=== PATIENT | female | born 1960 | race Caucasian/White ===

== ENCOUNTER 2023-01-05 11:09 | Outpatient (OUT) | payer OTHER, SELFPAY ==
--- NOTE | 2023-01-05 11:38 | XR_ITS ---
The [address] [address] Patient Name: ELISA GOMES MRN: [id number] date: 1960 Sex: F Assigned Patient Location: LAB Current Patient Location: LAB Accession/Order Number: [id number] Exam Date: 01/05/2023 11:50 Report Date: 01/05/2023 15:57 At the request of: EMI KENYON Procedure: XR foot LT min 3V EXAMINATION: XR ankle DECLAN min 3V, XR foot LT min 3V HISTORY: Osteoarthritis M19.90 COMPARISON: No relevant comparison available. FINDINGS: RIGHT FINDINGS: BONES: No significant arthropathy or acute abnormality. SOFT TISSUES: No visible soft tissue swelling. OTHER: Negative. LEFT FINDINGS: BONES: Mild degenerative enthesopathic spurring of the calcaneus. Small degenerative osteophyte along margin of first metatarsophalangeal joint. SOFT TISSUES: No visible soft tissue swelling. OTHER: Negative. IMPRESSION: RIGHT CONCLUSION: No acute abnormality or significant degenerative changes of the right ankle. LEFT CONCLUSION: Unremarkable left ankle. Minimal degenerative changes of the left foot. Electronically authenticated by: LATASHA KEANE Date: 01/05/2023 15:57
--- NOTE | 2023-01-05 11:38 | XR_ITS ---
The [address] [address] Patient Name: ELISA GOMES MRN: [id number] date: 1960 Sex: F Assigned Patient Location: LAB Current Patient Location: LAB Accession/Order Number: [id number] Exam Date: 01/05/2023 11:50 Report Date: 01/05/2023 15:59 At the request of: EMI KENYON Procedure: XR knee LT 3V PROCEDURE: XR knee LT 3V HISTORY: Knee osteoarthritis M17.9 ; chronic lateral knee pain COMPARISON: None. FINDINGS: BONES:Slight narrowing of the medial joint space and tiny periarticular degenerative osteophytes. SOFT TISSUES:Degenerative enthesopathic spurring at quadriceps tendon insertion into the patella. EFFUSION:None visible. OTHER: Negative. IMPRESSION: 1. No acute bone abnormality. 2. Minimal degenerative changes. Electronically authenticated by: LATASHA KEANE Date: 01/05/2023 15:59
--- NOTE | 2023-01-05 11:38 | XR_ITS ---
The [address] [address] Patient Name: ELISA GOMES MRN: [id number] date: 1960 Sex: F Assigned Patient Location: LAB Current Patient Location: LAB Accession/Order Number: [id number] Exam Date: 01/05/2023 11:50 Report Date: 01/05/2023 15:57 At the request of: EMI KENYON Procedure: XR ankle DECLAN min 3V EXAMINATION: XR ankle DECLAN min 3V, XR foot LT min 3V HISTORY: Osteoarthritis M19.90 COMPARISON: No relevant comparison available. FINDINGS: RIGHT FINDINGS: BONES: No significant arthropathy or acute abnormality. SOFT TISSUES: No visible soft tissue swelling. OTHER: Negative. LEFT FINDINGS: BONES: Mild degenerative enthesopathic spurring of the calcaneus. Small degenerative osteophyte along margin of first metatarsophalangeal joint. SOFT TISSUES: No visible soft tissue swelling. OTHER: Negative. IMPRESSION: RIGHT CONCLUSION: No acute abnormality or significant degenerative changes of the right ankle. LEFT CONCLUSION: Unremarkable left ankle. Minimal degenerative changes of the left foot. Electronically authenticated by: LATASHA KEANE Date: 01/05/2023 15:57
== END 2023-01-05 11:10 ==
LOC: LAB 11:17
PROVIDERS: PCP Family Medicine; Visit Provider Family Medicine
DX: M54.16 Radiculopathy, lumbar region (principal); M17.9 Osteoarthritis of knee, unspecified; M19.90 Unspecified osteoarthritis, unspecified site
CPT/HCPCS: 73562; 73610; 73630

== ENCOUNTER 2023-07-02 13:07 | Outpatient (OUT) | payer MEDICARE, SELFPAY ==
--- NOTE | 2023-07-02 13:14 | MM_ITS ---
Patient Name: ELISA GOMES MR#: [id number] : 1960 Exam Date: 07/02/2023 Ordering Doctor: DR Meir Friedman . RADIOLOGY REPORT PROCEDURE: MM TOMOSYNTHESIS SCREENING BI COMPARISON: MG MAMM SCREEN 3D DECLAN CAD, 06/27/2022. MG MAMM SCREEN 3D DECLAN CAD, 05/19/2021. MG MAMM SCREEN DECLAN W CAD, 05/17/2020. MG MAMM SCREEN DECLAN W CAD, 06/17/2016. INDICATIONS: Screening Calculator Name NCI Breast Cancer Risk Assessment Tool 5 Year Breast Cancer Risk 1.60% Lifetime Breast Cancer Risk 7.50% Personal Breast Cancer No Personal Ovarian Cancer No Treatments None Family Cancers None LOCATION: The [facility] [place] BREAST COMPOSITION: Almost entirely fatty. FINDINGS: DIAGNOSTIC CATEGORY 2--BENIGN FINDING: RIGHT BREAST: No significant suspicious finding. Scattered benign-appearing calcifications are present. No significant change has occurred. LEFT BREAST: No significant suspicious finding. Scattered benign-appearing calcifications are present. No significant change has occurred. RECOMMENDATIONS: ROUTINE MAMMOGRAM AND CLINICAL EVALUATION IN 12 MONTHS. PLEASE NOTE: A NORMAL MAMMOGRAM DOES NOT EXCLUDE THE POSSIBILITY OF BREAST CANCER. A CLINICALLY SUSPICIOUS PALPABLE LUMP SHOULD BE BIOPSIED. Dictated by: Franco Tompkins M.D. on 07/05/2023 at 09:16 Approved by: Franco Tompkins M.D. on 07/05/2023 at 09:21
== END 2023-07-02 13:08 | disposition home or self-care (01) ==
LOC: MAMMO 13:07
PROVIDERS: PCP Family Medicine; Visit Provider Family Medicine
DX: Z12.31 Encounter for screening mammogram for malignant neoplasm of breast (principal)
CPT/HCPCS: 77063; 77067

== ENCOUNTER 2023-07-10 11:49 | Outpatient (OUT) | payer MEDICARE, SELFPAY ==
--- NOTE | 2023-07-10 12:14 | XR_ITS ---
[address] [address] Patient Name: ELISA GOMES MRN: [id number] date: 1960 Sex: F Assigned Patient Location: [facility] Current Patient Location: [facility] Accession/Order Number: [id number] Exam Date: 07/10/2023 12:08 Report Date: 07/10/2023 12:49 At the request of: EMI KENYON Procedure: XR lumbar spine 2-3V EXAM: XR lumbar spine 2-3V HISTORY: Lumbar Radicular Pain M54.16 COMPARISON: None. TECHNIQUE: 3 views FINDINGS: Satisfactory alignment. Maintained vertebral body heights. Multilevel endplate degenerative changes of the lumbar spine. Maintained disc spaces. No acute fracture or significant subluxation. Scattered calcified atherosclerotic disease of aorta. XR/XR lumbar spine 2-3V IMPRESSION: Degenerative changes as above. Electronically authenticated by: AISHA GORDON Date: 07/10/2023 12:49
== END 2023-07-10 11:50 | disposition home or self-care (01) ==
LOC: RAD 11:53
PROVIDERS: PCP Family Medicine; Visit Provider Family Medicine
DX: M54.16 Radiculopathy, lumbar region (principal)
CPT/HCPCS: 72100

== ENCOUNTER 2023-09-05 12:36 | Outpatient (OUT) | payer MEDICARE, SELFPAY ==
--- OUTSIDE RECORDS SUMMARY | 2023-09-05 12:41 | XMS_ITS | CCD ---
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 Name Role Phone Emi Friedman Primary Care Physician Emi Friedman Referring Unavailable Rush, Sophy Attending Unavailable Rush, Sophy Admitting Unavailable HoEmi vásquez Referring Unavailable Rush, Sophy Attending Unavailable Rush, Sophy Admitting Unavailable Hoy Emi Referring Unavailable Rush, Sophy Attending Unavailable Rush, Sophy Admitting Unavailable HoLino vásquezlas Referring Unavailable Rush, Sophy Attending Unavailable Rush, Sophy Admitting Unavailable NONE, XXXX Referring Unavailable Rush, Sophy Attending Unavailable Rush, Sophy Admitting Unavailable NONE, XXXX Referring Unavailable MD Eddi Arana Admitting Unavailable Eddi Arana Attending Unavailable Emi Friedman Referring Unavailable MD Eddi Arana Admitting Unavailable Eddi Arana Attending Unavailable Eddi Arana Referring Unavailable Eddi Arana Attending Unavailable Derick Meza A Attending Unavailable Meza, Derick A Admitting Unavailable Meza, Derick A Admitting Unavailable MezaTyDerick A Attending Unavailable Meza, Derick A Admitting Unavailable Meza, Derick A Attending Unavailable Meza, Derick A Admitting Unavailable Meza, Derick A Attending Unavailable Rush, Sophy Attending Unavailable Rush, Sophy Admitting Unavailable Rush, Sophy Referring Unavailable Meza, Derick A Attending Unavailable Meza, Derick A Admitting Unavailable Meza, Derick A Admitting Unavailable Meza, Derick A Attending Unavailable CHANTALE ., DR MIDDLETON Admitting Unavailable CHANTALE ., DR MIDDLETON Attending Unavailable CHANTALE ., DR MIDDLETON Primary Care Unavailable CHANTALE ., DR MIDDLETON Consulting Unavailable LAKHWINDER, DR FRANCO Sethi Consulting Unavailable MARISOL ., DR UNDERWOOD Admitting Unavailabl e MARISOL ., DR UNDERWOOD Attending Unavailabl e CHANTALE ., DR MIDDLETON Primary Care Unavailable OLEGARIOK ., DR UNDERWOOD Consulting Unavailabl e HOY ., DR MIDDLETON Admitting Unavailable HOY ., DR MIDDLETON Attending Unavailable HOY ., DR MIDDLETON Primary Care Unavailable HOY ., DR MIDDLETON Consulting Unavailable HOY ., DR MIDDLETON Admitting Unavailable HOY ., DR MIDDLETON Attending Unavailable HOY ., DR MIDDLETON Primary Care Unavailable HOY ., DR MIDDLETON Admitting Unavailable HOY ., DR MIDDLETON Attending Unavailable HOY ., DR MIDDLETON Primary Care Unavailable HOY ., DR MIDDLETON Consulting Unavailable HOY ., DR MIDDLETON Admitting Unavailable HOY ., DR MIDDLETON Attending Unavailable HOY ., DR MIDDLETON Primary Care Unavailable HOY ., DR MIDDLETON Consulting Unavailable NOBLEEBER, DR FRANCO Sethi Consulting Unavailable Allergies Allergy Classification Reported Allergen(s) Allergy Type Date of Onset Reaction(s) Facility (14 sources) Adhesive Tape; Translations: [Tape] Drug allergy Eruption of skin (disorder) [facility] (16 sources) Penicillin; Translations: [penicillin] Drug Allergy 9 Weal (disorder) [facility] (14 sources) Sulfonamides (Antibiotic); Translations: [sulfa drugs] Drug allergy Weal (disorder) [facility] (1 source) Desonide Drug Allergy 9 [facility] (1 source) natural latex rubber Drug allergy (disorder) [facility] (2 sources) Sulfonamides (Antibiotic) Drug allergy (disorder) [facility] Medications Current Medications Medication Drug Class(es) Dates Sig (Normalized) Sig (Original) acyclovir 800 mg oral tablet (13 sources) Herpesvirus Nucleoside Analog DNA Polymerase Inhibitor, Herpes Simplex Virus Nucleoside Analog DNA Polymerase Inhibitor, Herpes Zoster Virus Nucleoside Analog DNA Polymerase Inhibitor Start: 05-10-2021 take 1 tablet by mouth once daily acyclovir 800 mg Tab TAKE 1 TABLET BY MOUTH DAILY, Other (see comment) Start Date: 05/10/21 Status: Ordered alendronic acid 70 mg oral tablet (5 sources) Bisphosphonate Start: 06-22-2021 take 1 tablet by mouth every week Fosamax 70 mg oral tablet 70 mg = 1 tab(s), Oral, qWeek, Refills(s) 0 Start Date: 06/22/21 Status: Ordered aspirin 81 mg delayed release oral tablet (13 sources) Platelet Aggregation Inhibitor, Nonsteroidal Anti-inflammatory Drug Start: 10-03-2021 take 1 tablet by mouth once daily aspirin 81 mg Oral EC Tab 81 mg = 1 tab(s), Oral, Daily, Blood Thinner Start Date: 10/03/21 Status: Ordered Start: 10-03-2021 take 1 tablet by mouth once da edelmira aspirin 81 mg Oral EC Tab 81 mg = 1 tab(s), Oral, Daily, Blood Thinner Start Date: 10/03/21 Status: Ordered biotin 1 mg oral tablet (13 sources) Start: 10-03-2021 take 1 tablet by mouth once daily biotin 1000 mcg oral tablet 1,000 mcg = 1 tab(s), Oral, Daily, Prophylaxis Start Date: 10/03/21 Status: Ordered Fish Oils (13 sources) Start: 05-10-2021 take 1200 mg by mouth once daily Fish Oil 1,200 mg, Oral, Daily, Refill(s) 0, Prophylaxis Start Date: 05/10/21 Status: Ordered fluticasone propionate 0.05 mg/actuat metered dose nasal spray (7 sources) Corticosteroid Start: 05-20-2021 fluticasone 0.05 mg/inh Nasal [place] 1 spray(s), Nasal, Daily, Refill(s) 0, Allergy symptoms Start Date: 05/20/21 Status: Ordered fluticasone 0.05 mg/inh Nasal [place] (6 sources) Start: 05-20-2021 fluticasone 0.05 mg/inh Nasal [place] 1 spray(s), Nasal, Daily, Refill(s) 0, Allergy symptoms Start Date: 05/20/21 Status: Ordered ibuprofen 800 mg oral tablet (4 sources) Nonsteroidal Anti-inflammatory Drug Start: 07-11-2022 ibuprofen 800 mg Tab PRN as needed for pain, as needed, Refills(s) 0 Start Date: 07/11/22 Status: Ordered lisinopril 40 mg oral tablet (13 sources) Angiotensin Converting Enzyme Inhibitor Start: 10-03-2021 take 1 tablet by mouth once daily lisinopril 40 mg Tab 40 mg = 1 tab(s), Oral, Daily, High blood pressure Start Date: 10/03/21 Status: Ordered metFORMIN hydrochloride 500 mg oral tablet (20 sources) Biguanide Start: 06-28-2021 take 1 tablet by mouth twice daily metformin 500 mg oral tablet 500 mg = 1 tab(s), Oral, BID, # 60 tab(s), Refills(s) 0 Start Date: 03/28/22 Status: Ordered metoprolol tartrate 100 mg oral tablet (13 sources) beta-Adrenergic Marco Start: 10-03-2021 take 1 tablet by mouth twice daily Metoprolol succinate 100 mg ER Tablet 100 mg, Oral, BID, High blood pressure Start Date: 10/03/21 Status: Ordered Start: 10-03-2021 take 1 tablet by hugo th twice daily Metoprolol succinate 100 mg ER Tablet 100 mg, Oral, BID, High blood pressure Start Date: 10/03/21 Status: Ordered [facility] [place] (4 sources) Start: 07-11-2022 [facility] [place] See Instructions, collagen powder 1 scoop daily Start Date: 07/11/22 Status: Ordered Multivitamin, Therapeutic w/ Minerals (13 sources) Start: 10-03-2021 take 1 tablet by mouth once daily Multivitamin, Therapeutic w/ Minerals 1 tab(s), Oral, Daily, Prophylaxis Start Date: 10/03/21 Status: Ordered Omeprazole (13 sources) Proton Pump Inhibitor Start: 05-23-2021 omeprazole 40 mg, Daily, Refills(s) 0, Control of stomach acid Start Date: 05/23/21 Status: Ordered pravastatin sodium 20 mg oral tablet (13 sources) HMG-CoA Reductase Inhibitor Start: 10-03-2021 take 1 tablet by mouth once daily at bedtime pravastatin 20 mg Tab 20 mg = 1 tab(s), Oral, Once a day (at bedtime), High cholesterol Start Date: 10/03/21 Status: Ordered tiZANidine 4 mg oral tablet (13 sources) Central alpha-2 Adrenergic Agonist Start: 10-20-2021 tiZANidine 4 mg Tab 4 mg = 1 tab(s), Oral, BID, PRN Spasm, to be used in the AM and afternoon if needed. She uses 8mg at night she already has, # 60 tab(s), Refills(s) 0, Pharmacy: [facility]/pharmacy #[id number], 166.8, cm, 10/11/21 14:46:00 EST, Height/Length Dosing, 84.8, kg, 03/0... Start Date: 10/20/21 Status: Ordered Vitamin C 1000 mg oral tablet (13 sources) Start: 10-03-2021 take 1 tablet by mouth once daily Vitamin C 1000 mg oral tablet 1,000 mg = 1 tab(s), Oral, Daily, Prophylaxis Start Date: 10/03/21 Status: Ordered Vitamin D3 5000 intl units oral tab (13 sources) Start: 06-28-2021 take 1 tablet by mouth once daily Vitamin D3 5000 intl units oral tab 125 mcg = 1 tab(s), Oral, Daily, Refills(s) 0, Prophylaxis Start Date: 06/28/21 Status: Ordered Completed/Discontinued Medications Medication Drug Class(es) Dates Sig (Normalized) Sig (Original) ALPRAZolam 0.25 mg oral tablet (13 sources) Benzodiazepine Start: 05-10-2021 take 0.5-1 tablets by mouth three times daily as needed alprazolam 0.25 mg Tab 0.25 mg = 1 tab(s), Oral, TID, PRN as needed for anxiety, TAKE 1/2 TO 1 TABLET BY MOUTH THREE TIMES DAILY NEEDED Start Date: 05/10/21 Status: Ordered gabapentin 300 mg oral capsule (13 sources) Anti-epileptic Agent Start: 05-10-2021 take 1 capsule by mouth twice daily gabapentin 300 mg Cap 300 mg = 1 cap(s), Oral, BID, TAKE 1 CAPSULE BY MOUTH TWICE DAILY, Pain Start Date: 05/10/21 Status: Ordered Problems Active Problems Problem Classification Problem Date Documented Da te Episodic/Chronic Abdominal pain (13 sources) Right lower quadrant pain 06-28-2021 Episodic Anxiety disorders (13 sources) Anxiety 05-10-2021 Chronic Diabetes mellitus without complication (4 sources) Diabetes mellitus 07-11-2022 Chronic Disorders of lipid metabolism (13 sources) Hyperlipidemia 06-22-2021 Chronic Esophageal disorders (13 sources) 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 Essential hypertension (13 sources) Hypertensive disorder 05-10-2021 Chronic Gastritis and duodenitis (13 sources) Chronic gastritis 06-22-2021 Chronic Gastrointestinal hemorrhage (13 sources) Rectal hemorrhage 06-28-2021 Episodic Headache; including migraine (20 sources) Chronic cluster headache; Translations: [Migraine] 06-22-2021 Chronic Heart valve disorders (4 sources) Irregular heart beat 07-11-2022 Episodic Nutritional deficiencies (13 sources) Vitamin D deficiency 06-22-2021 Chronic Osteoporosis (13 sources) Osteoporosis 06-22-2021 Chronic Other and unspecified benign neoplasm (13 sources) Polyp of colon 06-22-2021 Episodic Other connective tissue disease (13 sources) Pain in lower limb 06-22-2021 Episodic Other connective tissue disease (4 sources) H/O: osteoarthritis 07-11-2022 Episodic Other gastrointestinal disorders (13 sources) Alteration in bowel elimination 06-28-2021 Episodic Other infections; including parasitic (13 sources) History of Helicobacter pylori infection 06-22-2021 Episodic Other nutritional; endocrine; and metabolic disorders (13 sources) Body mass index 30+ - obesity 06-28-2021 Chronic Residual codes; unclassified (13 sources) Family history of osteoporosis 06-22-2021 Episodic Residual codes; unclassified (13 sources) FH: Migraine 06-22-2021 Episodic Residual codes; unclassified (13 sources) Insomnia 06-22-2021 Episodic Residual codes; unclassified (4 sources) Family history of malignant melanoma 07-11-2022 Episodic Spondylosis; intervertebral disc disorders; other back problems (13 sources) 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 Spondylosis; intervertebral disc disorders; other back problems (13 sources) Lumbar radiculopathy 06-22-2021 Episodic Substance-related disorders (13 sources) 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 Viral infection (13 sources) Herpesvirus infection 10-03-2021 Episodic Past or Other Problems Problem Classification Problem Date Documented Date Episodic/Chronic Cardiac dysrhythmias (14 sources) Palpitations; Translations: [Palpitations] Onset: 04-23-2022 10-03-2021 Episodic Immunizations and screening for infectious disease (1 source) Encounter for screening for human papillomavirus (HPV); Translations: [ENC SCREENING HUMAN PAPILLOMAVIRUS] Onset: 07-01-2022 Episodic Other lower respiratory disease (4 sources) Shortness of breath; Translations: [SHORTNESS OF BREATH] Onset: 04-20-2022 Episodic Other screening for suspected conditions (not mental disorders or infectious disease) (8 sources) Encounter for screening for malignant neoplasm of cervix; Translations: [Encounter for screening mammogram for malignant neoplasm of breast] Onset: 06-27-2022 Episodic Urinary tract infections (4 sources) Urinary tract infection, site not specified; Translations: [UTI SITE NOT SPECIFIED] Onset: 04-04-2022 Episodic Results Test Name Value Interpretation Reference Range Facility Coding Summary.on 10-23-2022 Coding Summary. [id number] G h0bWw+PGhlYWQ+DE1NOTM qO65gfLRqxX7pI1WDMDuQ SywgQVBQTElOSyIgbmFtZ S1spINcCAFg IC8+MF2nCOYgJelzmYAou 4R1pJO9A74npr8yCKkhiT S8VXMkBjQhygozk1pvvIn 6IDcuNmluOyBt HNTkyF76AJO8vE18Ul61y QWxcQWfk4qkoUd2EuYgDW EiJBC9rRpnBXeeu8RqMSW dA18jcTMfq0S9 MMDjiQnuiTMfVkXzxBC1j L6lOVolzazbv4fwvxyjOx u1fu81zMPei1B6uUX5I4F cqbR5VASqwJYi MtsxuZLYgC9mykjfk6mws qaxWqKhRUCqQZu7NUy1PO HrcEshUuPcYT08JRE8WHJ xugJiF2NoTGTr zLorFpX8v4O0Fs3QU1WSY qipF6ZLJBJHSNpolLX+PC 67gj59I1FoFqjjJfn1WKU tJWX8cQE9aL4a DDKjOReuv5K4mXL1G3Zmw zHdpn6ao8mzZFOjSDstK4 9rhTXec8Q5ZDZdaWE6IVM pxGdaGaXtnP05 Oyc+JBWdbWgus5IzHtdai 0vde5iueCe2RlueFJBgan MhdSitWDP8s5NoRu2uLKZ ifMU1zAH5fV6n ZkXqHfD7KBztG367DcZxp ZHuZrwyQ27vX9XcmXM+PH QoOtx0DRYzeLdzMH4pB6P hZGRpbmctbGVm tZnnAX0bOVVjbctdUVImd R2mEUFtK0w3CeKgPrZ7DB xoI8AjMRHbvqtlLn49pI3 nYkKuQcW5PAso D1ImluA3BOJpgHIkEJucU BF4T37nu2Y7OYQfIEUjBF B5pJK6pY2ycYpcsidbnLT mdDsgdmVydGlj RDbkNKdgV433YNTusJdtH kNvZGluZyBEYXRlOiAgMD MvMjAvMjAyMzwvdGQ+PHR rTOI0gJrsWOHl oLZyCXnwDi9teQzpmQdtK Y8sXWJvdwptBWBuvG6wLV HpbWRusRmqAT4hFGBmhgq xi501WmFfDCC2 XZYcnGQcM4AfjX8sGoWjH ZQsMKWyU3XicOKtQHnqX8 84ZCihPbD1WPOhfjVdF0S sLWFsaWduOiB0 f1Z2Fp2Ij2DrwtnkB4Jth WMuFqHvYzzlKNr3W4NoWz wvdHI+MP36CZVkOV62QTg 8AUG2oDxgIPxn HHVpT7NtpN6aFjRgACZrC GRkOyc+PHRhYmxlIHdpZH RoPScxMDAlJyBzdHlsZT0 dTk3aQZRzYVYh zKplwSVbSdYva2edHPPzM DgkHJ6fjRfzQ5YzzKX2RK Dnn8j1Ay81P16bJ4KxcOI +WRAvtRG0rST9 uL9wDyAvGvH2SEeuF705U oSpnPBwSxskr5egp4gxgL w5JpO4CJVrgmQaiRzmTJI 3n3FiZr31U59s IHdpZHRoPSIxNSUiIHZhb Xlube3vdQ9bMm0+PGNvbC A8eAR4uT4bJyOwYrE2BMl gJ160ZqTyxBSj Hjqhn8pqz2kheCm8DlIwL ZTlrjNzcGtfBQT4b6KhSa 19A5DkdHlwz9BzMbg2er0 3uWAva5C5lNA6 P8UsNNFcqggauBLiuMwwM A1nYFXrkgqwANGpnX0gRA FbA2x3AzBbKeD0MRhsG3R awqO6GUHebFZs ERPqvAQDxB6saenbt6rtl tepSmPbMTRuUSq1GZy2WJ CzpJqtIcExZJM3AmO4MUV 7tSXdlZ7weSdk bdtghW1tKet+FLC6eXCmd APDII2iSmqykZT+PHRkIH M0yAykNPnjHMGfkK9pXIY zN0l2RcXpWyZ3 GOlvG8SiezD9DMNorJCwF ENjvQCHrE1ganhig9tctx bdUhLnMFSeGMx5HOo3HXK saWduOiBsZWZ0 McB8WLX7pCTbaB5hiTeql ugwnV2hXee+QmlydGggRG J6PBa8E0TaBrx0OSFryCs hEH9yjXCtPUzf Xj0cnBjikHtiCM4yAUIcl hzfv685FiWdz6lzCYAghN DdYCexKUJ9Y23gd7E7YPW jXOVrLXS0jBP3 rP5vlYomnyzpzSAicXolb eZagBtlVDcvDOzlY219RB VraUsqBeUyOTi4I6GhAzq 8FQCfqXarCY4c pARmSRahIz9jrIhehJskS J4pPQMhunefp997FuRkt2 oaLLDhsCKbJRfeCCQ0Z31 un4R5GLIdKNFy XGL3iBQ1yF7xtFtwmmqmt GVmdDsgdmVydGljYWwtYW mjH136KSOorXjxIuPepLo 5I5IyGer0RZKg nAwmIT5vjWEqCMeoLb0ri JbjhTfiQW5lYUEoqlecz1 03VyXnz1zlJTFqrPBwUBj wHHU2G09om3C7 MLPvTKBjBYX0vSX3fE9tw GlnbjogbGVmdDsgdmVydG qlGIojULdkO897ULHfsJc nPlBhdGllbnQg TNbwFVf3G6GmSjxrvDT+P I90SZEwZT19uWLbqWSla5 bjqVj2WmYnWWPdJIO2dZb eIEwnd4SrGZVl V49yeNPwx7I4HQRzgPtoe AEbSrVkqUT8hM7wBVeupo xdk4lgwflfRqxro4anuv7 6lN93D87vAItr ZHRoPSIzMCUiIHZhbGlnb z7vqM0xCy3+TIGthBQ3oF Z7cS7mKYOuDkB5QLepD34 9InRvcCIvPjxj m7lpd0zwlFg9UmJ2QZJxc bCcaUzdJHQ0m2EpVz61B6 9sIHdpZHRoPSIyMCUiIHZ pdBgcja6vbU6d Ii8+NLDvcBG9jXK9pD7oN xJtXaW1YQbxA318AjYseM UxEqevM58cD8NhjIT+PHR lFth3QOYzcDrp LR3lcNEbMTfaZv3hGXO2W tJgMpXdQNxhV0KsXTDxka cuccwxvYA9IPFmXHCccI3 4Pn9ktLrjUFFy cSAOkN6cmlyod5rlrzszI sVsINFbWVy6CZd6FUChrZ rsLlEiSZF9ChX7MKA1dFY ccB2qbOljbdtj eX3uX8AkXTDbnnhiCy00w N9oGvQlZtQ9JXrsVfw+Ql VCTz5FTFeuHBILGkIrXWm vdGQ+PHRkIHN0 sOrmUCtzFIZugG8qOMAtZ 9a7QpFbWyV4PMwbK3KeNS LdfxioFx71dE9iVoSiBtX 8CBpaR2GnmqB6 YSOytEDfZMcyLQD3V98ud 8S0AUHgXUScBIA8nAD7rP 1hbGlnbjogbGVmdDsgdmV ydGljYWwtYWxp A497SQUuuOloTnV1OoHrI xL6TjK1Z2EuGbx6JCFukQ tmGH1wqIKtJByvPl7drMn neAwvXV2eFJSb ycjyZWNjuA9iUCTufAMek LmuSU7fGMDraervw849Kz QcBPV5OMNxmMFhZ5GmsD6 yOiAjMDAwMDAw T1HojUZuRDvuN268UDzwP lU4INBttaDjH8EvCKLtgI kmKzF3s0X4Xa35HFYNKUA yczwvdGQ+PHRk EUQ5yBkkIQwoVUCpmR8gY SFcI7x7ZuNvEdJ7FFpiF7 YxLQJefphyXk55hB3fGlY jCqW8PPphE7Ez ocO8KUQzxYWlQNxeLKV8G 12cw8O1HKRpRLIkXUQ4aF F2rS0juAkoeabuiVLqyOj gdmVydGljYWwt PRooN651ZUDauJdmNaVzk WFsZTwvdGQ+GFKxKMY6vD cgVJhfVFJamZ2cAIWlJ2e 1RyWlJsS8MOyz U4PzNGAwqqffEr31lQ3qR wIvKbT2ZBssM9YiihG0KA FkpVSgUWgcGXR1T28gy8Y 6LDQvTDMsGDT3 zOM6nT2qaBhdtmvciOThj DsgdmVydGljYWwtYWxpZ2 68UKJxyEdlUv91iSInuAa nyfA4N4RzTyac dHI+XO52ANAdHU15rAInc UVwx5ostGx1JxDyDMObND K7sFpwUYqeq2FaXFHkL53 ewKBus3S3UEIy mNeruJXdFdJogLY5pE3xV Rtubjlri8xtfybjPxpby7 pgeh25fR83N51eXLosCML oPSIzMCUiIHZh fJxgav5mkB2uNx0+PGNvb XH4yBB0zN4yLfRfCyR1GD aiS908XeDzzXGfXcbpa4l ig4qgxGn0BeGw DBPdxxAvnJmwLFS6t6NcA h81F76aYOslHBPdVNWtZV IzVNQfpPlprw6btV0rIw9 +AU6on9omgl29 zI00qQR+NSMuNGS8oJssQ LtjHYRiyK8sUCbtUfU6RU WvJfEcbV13uBRzUCiqHk4 ojUmqvLykJR0e QLOpgczwe548NxPce7hfK NMotNMvBOxbUNH5R21ct2 S9IGWmGRPqDDN2gYQ1kG4 hbGlnbjogbGVm dDsgdmVydGljYWwtYWxpZ 562RFKhkNmaImImmUQmD4 kttqUWIF9nFkvpxND+PHR nCFN4yOkwBViw IIFhlO4dNXAhF1a3YhEuX zQ1PYepW9JbrlA9TPYnlR GtBJMnhSELyO5fqejyf3p vcjogIzAwMDAw SPx5BYy1JFTbmCaqDdFmO GG5UiM1KXZ8yYNchF6vqK vtmepdpA7jZht+RklOOjw vdGQ+PHRkIHN0 gTcoLWzwUJDxyL4oVEHyJ 4b8ObBlYsK9GRmdT9Cvpa F2NHOraYZhHEMcjMPClB0 gxmgap4shrrac UjSgZPVyUDb9VOy7ZIWgv HbnGyWoZCH8IjY5PTD9mC TykM1xcTrkzwbqgJ3pPbw +TVJOOjwvdGQ+ IIHkFGA2xJisHEvnHOWke Q5qJNQiJ2i4VvLyMiR4XF wiX8NrfmD1CANliHRzUFZ guQSMrE5knhqq v1hrkmcmFgAoRHMlMOf8L Ry6AJXnmCobNtFxFZX9Dy X5JIA5kHOaoT1ngYhsxmz kcX4sSds+UGF5 PVG7ZN85QP10I1YaDxefs GFibGU+PHRhYmxlIHdpZH RoPScxMDAlJyBzdHlsZT0 vIm3xXEKnJDNn bGxh (more content not included)... Normal [facility] Coding Summary.on 10-17-2022 Coding Summary. CD:[id number] G h0bWw+PGhlYWQ+QI8YPXW gE77krICkpP2yA3GRZAaG SywgQVBQTElOSyIgbmFtZ N3qdTItFKKu IC8+OW9wRVXrMdwrmRIzr 4H9tPP1Q59sad7fBAoriR S1ZZHwDsHfjichu4idhGs 6IDcuNmluOyBt UGRedZ25TMX9mI38Gy56z VXqtGBqr7aksRu3UtFvFD IeKQE4sJwlSLdis7UkEQZ mD14poFFwe4L0 RIGchVmevTMyMtLioVY8m B3vVNehefpyj1bkdkbnMc o2xz54wUEpd2H9aOT9M6H vrqD8KIBimYAq PvpuyZFQlV6tqxigq9mpa hduQxLjFYDpGFq6QOj3IR JzpAadJuUjKF54YBH5AXT rvlLjH6KnFLXl yIqqMgN6a5J6Qv5UA6HUZ xsgY8GHJJMKKZxciUF+PC 58yc33F4AgXqhvPxp9CTF rJCG2aLC5aK4v AANkRXwts3K7cYU2L9Pam zKobi4vf7hlUPBoESwmJ9 3grYAcd2N8TGTydVY0MQS qwSucGxSbiE12 Oyc+RUCduNfql0FfPetmc 3zds8okkWc7TyyoRDUbif NdhLqjSZH2v8QmLt0oCUW bwGI1xYR7bY5e IlTnUxF3CUjcK833JiKla POyRnjeT57cR3XeqKS+PH KbJjg9OUAsqNfiKI4vZ1B hZGRpbmctbGVm xBxwRB6xDNVmlnkvQJFsa N4zWZZqT2r8PgJmKoV6UP gmU8GwGASwnosiMq92oG0 iMgXxGxB6WIgn V8AljmR8BEXjsZYpFAneF WV9F71ze9N3QIWuPXKbMO Z0xCM3iN7ttVlyconulDY mdDsgdmVydGlj UAyfSVjkH970GFAthGbuZ kNvZGluZyBEYXRlOiAgMD MvMTQvMjAyMzwvdGQ+PHR oCPS1dAuvXWTk oXScBPzlAr7noKzfkDjxQ X8lMLTxpwgwBTUiuS1bJK KpuKLygZtpFR1pEMLpnov xs400IsNfSWY9 HACxsPQhD2TkcW8kXkCoA GUrGVLvL6TikBBsFIvpA1 80ZJiyWpH7SOGwpfAtJ7A sLWFsaWduOiB0 e0M0Zx4Cf3WxsiyjY7Svk FVxQlLtPmkyCUd1I4FbRd wvdHI+VU29JJBgIL95HFk 6VTC5xHdfEKcu GUSyJ6EriU6fSaAtKYKkU GRkOyc+PHRhYmxlIHdpZH RoPScxMDAlJyBzdHlsZT0 gNq3aSOChNMNu kOeyuEHqXhCwz0nfMLVmV NqoKV0oeQlwW1PijAB2MW Kbm6d9Io18X53wF6FtjHH +JGTshWV1cVE0 sO4hHlHyKiE7YZnkX773U lNqhUSgDagdm1fup7ihtC s3VgF4RZIfugApcWwgSOM 6a4MpLq19U08w IHdpZHRoPSIxNSUiIHZhb Tjned9njP8gJi7+PGNvbC Q6oDL3nD6bGvRjYrC0CAo sG971IiWrzTCk Mcenm0pue5vvxUp4XuPcX KEmdvHhaOjdHCD1u1UaQg 32E2WszPecd3QhIjk1ku4 6bEMso0I4jYP1 Y5WlVCPmtskdxHBizYjoS Y8mNVSnlngrZMRpeT0wXJ CyP6i5HcEfLpQ4BEmeS0X fkpF0XBEsyINp ZNYrtPXVuD1ybydtj0sgf pllTzInICJgOHi2VYj9AL HvaUgaDdHyBMS0EqF2ECM 7uWDbgB7dnQlz hwfhjB6eNnc+QQF9hAKln CSCUE4eVhpmoEI+PHRkIH F8jWwrYRyfOTHgxT2cKUC fN0z3TmPvReA0 BHhuZ0BsbvP3GCKbcNXhO AOqwOJHmS4zcftde3pgtb ymBxKyENNvPNa5EAd3TBI saWduOiBsZWZ0 VbY5ZXB9mPEokI9ocNleh mhreJ1nWci+QmlydGggRG U7MAr7S3GoCyd0AXPkpDb yCQ6eeWWoQJmc Ja4nsOsahTjvYC0lZQWbx gmse002MxBgr1lbYQNxnU ErDWcpKHZ2A85eg5K0QZM mEMWiWNQ8gMS7 lT7asRaprkgdkJLtjBzqa nZxnMxwOZesSZnoO483VQ ZfrUkqZzWkGPm8P1KsOby 1AVZevZrxPU8p oHBoGYuhNn2gbDatkLkkE B6eQSGraeupw813KzGfu4 feXSDwaCSrAVvdVJF4E62 hh5L3GLMbBGRq XBL5gYZ6tT5ycNerakuoc GVmdDsgdmVydGljYWwtYW pkS492WHZplEaxOzOpwLk 2J8HbVkz5TJHb qHtsPM4cvQLuMDadRe7wn SiizBapLN4fGXZgvtbmb7 30RrAai8xhNIIwgTSlVJr rAYH2B84ty6P1 YSXoAQFnYKR8kBH7rQ1zr GlnbjogbGVmdDsgdmVydG yyEDijWBwaN761EVUocWe nPlBhdGllbnQg IXloIId1Z6KlHvjjnIB+P S97DXQjIF38aGLiiUJql1 aadOf9IuPeGUEfDFJ7ySg yBLvjq8XpBWUf G87ijIQfg6O9KZNdbWmux MYpOwBdeOW7gB6cVYqejh wka2cumusxYqrao4azhx8 8pE91S71eWRts ZHRoPSIzMCUiIHZhbGlnb c0rtE6oHg5+IORudHA2bV P2sQ5dWPYrPdQ2HDzbL21 9InRvcCIvPjxj e6nyy6itzCr7InJ7RXTgu aRmcHidIKV5m2BwZj59Z7 9sIHdpZHRoPSIyMCUiIHZ gkOojvu7syM3a Ii8+WRKgcJB9uER4dB9qK rSyGuE7TEinE348UbXugP EkNhkoK23zB6ZytKZ+PHR oOgw3SAPmdGwz CM6gzWVoREbgNv4oHOL2O yCvZiBsVIilX1HkVMHtxi fftrjydUA6TGSxXVYpjW5 5Zj9wkDhnNBOa pPIExQ4prpvey1zlmvrdZ rPiHXDuFMh0CGn2QPRjjI ymLuKsRVX5UrU0KBB0zMH xbQ4wlHowvfft mF4xS3KoRMWgjqjpYt97s T4nNxWcKgZ1QNxwNez+Ql NORb2UJGbsGBYFRcYoVTf vdGQ+PHRkIHN0 xRjgHQeoMEBzzO0fUFUaO 9z5QrAaPwV8CCfyK0LkIH JmqcwnYv69mU7uNjFeDeJ 4OAeyQ6QsviI6 AIQrpPFfQXiuDLY7W35ot 6U9CLPbQCMdXRQ7kBO1mY 1hbGlnbjogbGVmdDsgdmV ydGljYWwtYWxp V022TGTibGibKzA4WqUmF wY1NpB6T7DsEra2VATcsO baXX7urPWgGFleMq4bdKx xmOceER5eWFLn qnjdXTNsbU1cXLOhhSStt IunOL8hNUIafskay120Xx ZiUIX6XVGucNHzD0RlgS9 yOiAjMDAwMDAw D4JjbEHkDBibA811UXphR cD3XFKgggJjE7EpWMOqoF quOdC7b3J2Be52QNGKWXB yczwvdGQ+PHRk WAI4lVegIKkfCRQqxO2lG IKnB3b8XcEyLyR8ZMgyJ5 KsMRXjmsblMo94lP3uNaI vFaL2EZztG6Bm zeQ2RSGcgQMtKBogIWE1D 86kh0Q9URPtJJYlZXH7aX N7xX0lwYdoyqzpcOUzsGa gdmVydGljYWwt XBmgB998BIOwiGgaBnPfh WFsZTwvdGQ+FAExOHG3bD xyDKyqGYJhtS4lLOQpT2b 4ZpPgAvR7EWgs L0PbMJVibymxUe45aB5qY yZcUeI6QUmiD2QpyxV0UT CtbTCkKNfrZXB9B68xx3X 5ZUDfEPNuQVN9 eNN8mS9saFmmzhmghLXhl DsgdmVydGljYWwtYWxpZ2 98HVPwvJhaGb94hFAznFd qtkZ0H3WuMybg dHI+GB26ZPSpUV52xMBim ZEct3yakNx9LcJhEGAzWR U1vVsbHJpof9VpIURoQ36 htNQjo3M9EDUo bUakrSBuTgFnuTV5mD1fE Eszxdlqs8anpxvgZamre5 gyco61qI21B24xURdeIJD oPSIzMCUiIHZh rXddii8mtY2mOl1+PGNvb WJ4vOP7dN8vClDjJoR3KM jhH060ZcWztOXqPqaca8t sz9akkCh6UeZe TCPkpiKuxAfgLKI2a9SkM q22X22jGYytOJVxOLWuKO HyLTCzyJqvms5hyI0lSr0 +PD0wv2mvkk33 rS06tWA+PCLbNBO9mBksR ZtiVBRxpP1vAKksNvX9QV OuHeYhgY23uSEcFHdqHe7 lkCjcqSqxYU4i SGQwoxdfw615QvOyd9akA EEdoREnAXdsEPG4O69eo4 T4WBSgHEMmXMM8vVM5jT9 hbGlnbjogbGVm dDsgdmVydGljYWwtYWxpZ 716YDDumToeSlKmfMNeF7 qcvbWHNI7wLmcqkQO+PHR xZFZ9oUolPWdn GDGtqY3gHLGuX8o5SrMzH bZ3BAgiY3JlcsQ3MVRcfI HhTUHuxVRAaJ2mxkgvc4k vcjogIzAwMDAw ZIi2TVz3CCXulTgnJpAnJ UZ8EvA9IZZ9kGHhmC0aaN rvyxjccC6xOdy+RklOOjw vdGQ+PHRkIHN0 fIyrYFuyJGSvtS3oYYTvC 3p0AsXyUfS8WVyiY2Mgbe D3LQChmDIiZKUjpFSJsM1 mvneic1wvjvhr WjUiKSBtGNc8SLe4USYfm MieTgZpOGN5OhS3XGJ4bZ NibJ6byUwjmtlhiN8gYyk +TVJOOjwvdGQ+ UPRfPLS6fVwoKKosZNDsc Q0jKTOfJ2e1TcCzRsK1VV qxM0BirpY8ABKixEQvLFQ pzLCSmF0ggpwk r0rcefcwNjVaTYXnWMf6U Ou0JGWzdIsdKbSeICL5Yy Q3YGM8kZUfvN0wjMggtwc peV8bNrz+UGF5 LVF1FM99KV10V7KlJnrkv GFibGU+PHRhYmxlIHdpZH RoPScxMDAlJyBzdHlsZT0 sNq3gJNQhIMMg bGxh (more content not included)... [facility] Consent for Treatmenton Consent for Treatment [id number] #1.00CD:127 [facility] Consent for Treatment [id number]# 1.00CD:127 [facility] Consent for Treatment [id number]#1 .00CD:127 [facility] Consultation Noteon 10-11-19 23 Consultation Note Patient: ELISA GOMES Age: 62 years Sex: Female : 1960 Associated Diagnoses: None Author: Sophy Rush PA-C Subjective Chief complaint 10/10/2022 13:14 EST spine visit . Patient is a 62-year-old female She is status post C5-6 and C6-7 ACDF. This was done on 10/18/2021. At this time, she has neck pain, lower back pain, and some tingling in her hands and feet. She had previously seen pain management and she underwent lumbar epidural steroid injection without relief but because she only had axial back pain a lumbar medial branch block was recommended. She has not yet done this. She is thinking about it. In regards to her neck and arm symptoms she is feeling better in regards to this. She feels that surgery was successful she does have some neck pain. She rates it a 6/10 Health Status Allergies: Allergic Reactions (Selected) Severity Not Documented Penicillin- Hives. Sulfa drugs- Hives. Tape- Rash., Allergies (3) Active Reaction penicillin Hives sulfa drugs Hives Tape Rash Current medications: (Selected) Prescriptions Prescribed tiZANidine 4 mg Tab: 4 mg = 1 tab(s), Oral, BID, PRN Spasm, to be used in the AM and afternoon if needed. She uses 8mg at night she already has, # 60 tab(s), Refills(s) 0, Pharmacy: [facility]/pharmacy #[id number], 166.8, cm, 10/11/21 14:46:00 EST, Height/Length Dosing, 84.8, kg, 03/0... Documented Medications Documented Fish Oil: 1,200 mg, Oral, Daily, Refill(s) 0, Prophylaxis Metoprolol succinate 100 mg ER Tablet: 100 mg, Oral, BID, High blood pressure Misc Medication: See Instructions, collagen powder 1 scoop daily Multivitamin, Therapeutic w/ Minerals: 1 tab(s), Oral, Daily, Prophylaxis Vitamin C 1000 mg oral tablet: 1,000 mg = 1 tab(s), Oral, Daily, Prophylaxis Vitamin D3 5000 intl units oral tab: 125 mcg = 1 tab(s), Oral, Daily, Refills(s) 0, Prophylaxis acyclovir 800 mg Tab: TAKE 1 TABLET BY MOUTH DAILY, Other (see comment) alprazolam 0.25 mg Tab: 0.25 mg = 1 tab(s), Oral, TID, PRN as needed for anxiety, TAKE 1/2 TO 1 TABLET BY MOUTH THREE TIMES DAILY NEEDED aspirin 81 mg Oral EC Tab: 81 mg = 1 tab(s), Oral, Daily, Blood Thinner biotin 1000 mcg oral tablet: 1,000 mcg = 1 tab(s), Oral, Daily, Prophylaxis fluticasone 0.05 mg/inh Nasal [place]: 1 spray(s), Nasal, Daily, Refill(s) 0, Allergy symptoms gabapentin 300 mg Cap: 300 mg = 1 cap(s), Oral, BID, TAKE 1 CAPSULE BY MOUTH TWICE DAILY, Pain ibuprofen 800 mg Tab: PRN as needed for pain, as needed, Refills(s) 0 lisinopril 40 mg Tab: 40 mg = 1 tab(s), Oral, Daily, High blood pressure metformin 500 mg oral tablet: 500 mg = 1 tab(s), Oral, BID, # 60 tab(s), Refills(s) 0 metformin 500 mg oral tablet: 500 mg = 1 tab(s), Oral, BID, Refills(s) 0, Blood glucose omeprazole: 40 mg, Daily, Refills(s) 0, Control of stomach acid pravastatin 20 mg Tab: 20 mg = 1 tab(s), Oral, Once a day (at bedtime), High cholesterol Problem list: All Problems Palpitations / SNOMED CT 645274570 / Confirmed 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 Hypertension / SNOMED CT 1526030497 / Confirmed Anxiety / SNOMED CT 42163813 / Confirmed Lumbar disc disease / SNOMED CT 9908236639 / Confirmed Lumbar radiculopathy / SNOMED CT 641973550 / Confirmed Chronic gastritis / SNOMED CT 47215327 / Confirmed Migraines / SNOMED CT 55480541 / Confirmed Insomnia / SNOMED CT 327323773 / Confirmed Colon polyp / SNOMED CT 167009676 / Confirmed Chronic leg pain / SNOMED CT 005081352 / Confirmed Laxative abuse / SNOMED CT 252832532 / Confirmed Chronic cluster headache / SNOMED CT 515517011 / Confirmed Vitamin D deficiency / SNOMED CT 99858701 / Confirmed Hyperlipemia / SNOMED CT 62880250 / Confirmed Osteoporosis / SNOMED CT 946165680 / Confirmed 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 Resolved due to patient discharge. Resolved: Impaired skin integrity / SNOMED CT 04214253 Problem added on documentation of skin impairments. Resolved due to patient discharge. Resolved: FH: migraine headache / SNOMED CT 930257860 Resolved: FH: osteoporosis / SNOMED CT 8403321559 Objective Vital Signs 10/10/2022 13:14 EST Peripheral Pulse Rate 62 bpm Respiratory Rate 12 br/min LOW Systolic Blood Pressure 135 mmHg Diastolic Blood Pressure 68 mmHg Mean Arterial Pressure, Cuff 90 mmHg Gen (more content not included)... Normal [facility] Comment on above: Result Comment: Elec tronically Signed By: Sophy Rush PA-C\.br\Date and Time Signed: 10/10/22 13:32 EST\.br\Electronically Co-Signed By: Derick Meza MD\.br\Date and Time Co-Signed: 10/17/22 18:24 EDT Office/Clinic Note-Nurseon 0 10-10-2022 Office/Clinic Note-Nurse [id number]#1 .00CD:127 [facility] Physician Orderon 10-10-2022 Physician Order [id number]# 1.00CD:127 [facility] XR Spine Cervical 2 or 3 Vie wson 10-10-2022 XR Spine Cervical 2 or 3 Views Exam Date/Time: 10/10/2022 13:13 EST Reason for Exam: 298.1, M54.2, M47.816 Report IMPRESSION: NO SIGNIFICANT CHANGE FROM 06/20/2022 IDENTIFIED. EXAM: XR Spine Cervical 2 or 3 Views DATE: 10/10/2022 CLINICAL HISTORY: 298.1, M54.2, M47.816. COMPARISON: 08/20/2021 TECHNIQUE: Lateral flexion and extension radiographs of the cervical spine were obtained. FINDINGS: Postoperative changes from previous C5-6 and C6-7 ACDF appear unchanged. There is no significant subluxation or evidence of instability with flexion or extension positioning. The prevertebral soft tissues are unremarkable. Ordering Provider: Derick Meza FINAL REPORT Dictated: 10/10/2022 4:45 pm Enio Lopez MD Signed (Electronic Signature): 10/10/2022 4:45 pm Signed by: Enio Lopez MD Transcribed by: CAITY Technologist: CHAD Technical Comments Radiation Dose: Ka,r in mGy = na DAP = na Normal [facility] Insurance Correspondence Off iceon 09-08-2022 Insurance Correspondence Office [id number] .00CD:127 Normal [facility] INSULINon 08-28-2022 Insulin 53.4 uIU/mL Critically high 2.6-24.9 [facility] Comment on above: Performed By: #### C BC #### [facility] [address] [place] [address] Dr. Jeffry Daniels CBC AUTO DIFFon 08-26-2022 BASO # 0.1 103/ul Normal 0.0-0.1 [facility] Comment on above: Performed By: #### C BC #### [facility] [address] [place] [address] Dr. Jeffry Daniels Basophils/100 WBC (Bld) 0.9 % Normal 0.2-2.0 [facility] Comment on above: Performed By: #### C BC #### [facility] [address] [place] [address] Dr. Jeffry Daniels EO # 0.2 103/ul Normal 0.0-0.7 [facility] Comment on above: Performed By: #### C BC #### [facility] [address] [place] [address] Dr. Jeffry Daniels Eosinophils/100 WBC (Bld) 3.2 % Normal 0.9-7.0 [facility] Comment on above: Performed By: #### C BC #### [facility] [address] [place] [address] Dr. Jeffry Daniels Erythrocyte distribution width (RBC) [Ratio] 12.1 % Normal 11.0-15.0 [facility] Comment on above: Performed By: #### C BC #### [facility] [address] [place] [address] Dr. Jeffry Daniels Hematocrit (Bld) [Volume fraction] 37.0 % Normal 36.0-48.0 [facility] Comment on above: Performed By: #### C BC #### [facility] [address] [place] [address] Dr. Jeffry Daniels Hemoglobin (Bld) [Mass/Vol] 13.4 g/dL Normal 12.0-16.0 [facility] Comment on above: Performed By: #### C BC #### [facility] [address] [place] [address] Dr. Jeffry Daniels IG # 0.03 10e3/ul Normal 0.00-0.03 [facility] Comment on above: Performed By: #### C BC #### [facility] [address] [place] [address] Dr. Jeffry Daniels IG % 0.5 % Normal 0.0-0.5 [facility] Comment on above: Performed By: #### C BC #### [facility] [address] [place] [address] Dr. Jeffry Daniels LYMPH # 2.0 103/ul Normal 1.2-3.8 [facility] Comment on above: Performed By: #### C BC #### [facility] [address] [place] [address] Dr. Jeffry Daniels Lymphocytes/100 WBC (Bld) 35.4 % Normal 20.5-60.0 [facility] Comment on above: Performed By: #### C BC #### [facility] [address] [place] [address] Dr. Jeffry Daniels MANUAL DIFF REQ NO Normal [facility] Comment on above: Performed By: #### C BC #### [facility] [address] [place] [address] Dr. Jeffry Daniels MCH (RBC) [Entitic mass] 32.8 pg Normal 26.7-34.0 [facility] Comment on above: Performed By: #### C BC #### [facility] [address] [place] [address] Dr. Jeffry Daniels MCHC (RBC) [Mass/Vol] 36.2 g/dL Critically high 29.9-35.2 [facility] Comment on above: Performed By: #### C BC #### [facility] [address] [place] [address] Dr. Jeffry Daniels MCV (RBC) [Entitic vol] 90.5 fL Normal 81.0-99.0 [facility] Comment on above: Performed By: #### C BC #### [facility] [address] [place] [address] Dr. Jeffry Daniels MONO # 0.6 103/ul Normal 0.3-0.8 [facility] Comment on above: Performed By: #### C BC #### [facility] [address] [place] [address] Dr. Jeffry Daniels Monocytes/100 WBC (Bld) 10.4 % Normal 1.7-12.0 [facility] Comment on above: Performed By: #### C BC #### [facility] [address] [place] [address] Dr. Jeffry Daniels NEUT # 2.8 103/ul Normal 1.4-6.5 [facility] Comment on above: Performed By: #### C BC #### [facility] [address] [place] [address] Dr. Jeffry Daniels Neutrophils/100 WBC (Bld) 49.6 % Normal 43.0-75.0 [facility] Comment on above: Performed By: #### C BC #### [facility] [address] [place] [address] Dr. Jeffry Daniels Platelet mean volume (Bld) [Entitic vol] 8.9 fL Critically low 9.5-13.5 [facility] Comment on above: Performed By: #### C BC #### [facility] [address] [place] [address] Dr. Jeffry Daniels PLT 343 103/ul Normal 150-450 [facility] Comment on above: Performed By: #### C BC #### [facility] [address] [place] [address] Dr. Jeffry Daniels RBC 4.09 106/ul Critically low 4.20-5.40 [facility] Comment on above: Performed By: #### C BC #### [facility] [address] [address] [address] Jeffry Daniels WBC 5.7 103/ul Normal 4.0-11.0 [facility] Comment on above: Performed By: #### C BC #### [facility] [address] [place] [address] Dr. Jeffry Daniels FREE THYROXINE INDEX T7on FTI 3.64 Normal 1.30-4.50 [facility] Comment on above: Performed By: #### C BC #### [facility] [address] [place] [address] Dr. Jeffry Daniels T3U 34.0 % Normal 30.0-39.0 [facility] Comment on above: Performed By: #### C BC #### [facility] [address] [place] [address] Dr. Jeffry Daniels T4 [Mass/Vol] 10.70 ug/dL Normal 4.80-13.90 [facility] Comment on above: Performed By: #### C BC #### [facility] [address] [place] [address] Dr. Jeffry Daniels GLYCOHEMOGLOBIN A1Con 2022 ADA RECOMMENDATION SEE BELOW Normal [facility] Comment on above: Result Comment: ADA RECOMMENDED LIMIT 4.0 - 6.0 ADA THERAPEUTIC TARGET < 7.0 ACTION SUGGESTED > 7.0 Performed By: #### A 1C #### [facility] [address] [place] [address] Dr. Jeffry Daniels Glucose [Mass/Vol] 120 mg/dL Normal [facility] Comment on above: Performed By: #### A 1C #### [facility] [address] [place] [address] Dr. Jeffry Daniels HbA1c (Bld) [Mass fraction] 5.8 % Normal 4.5-6.2 [facility] Comment on above: Performed By: #### A 1C #### [facility] [address] [place] [address] Dr. Jeffry Daniels IRONon 08-26-2022 Iron [Mass/Vol] 64.0 ug/dL Normal 50.0-170.0 [facility] Comment on above: Performed By: #### I SONIA WHEELERAD #### [facility] [address] [place] [address] Dr. Jeffry Daniels LIPID PROFILEon 08-26-2022 CHOL-HDL RATIO NORM SEE BELOW Normal [facility] Comment on above: Result Comment: 3.3 - 4.4 LOW RISK 4.4 - 7.1 AVERAGE RISK 7.1 - 11.0 MODERATE RISK >11.0 HIGH RISK Performed By: #### T SH, CMP, T7, LIPID #### [facility] [address] [address] [address] Jeffry Daniels Cholesterol [Mass/Vol] 267 mg/dL Critically high <=200 [facility] Comment on above: Performed By: #### T SH, CMP, T7, LIPID #### [facility] [address] [place] [address] Dr. Jeffry Daniels Cholesterol in HDL [Mass/Vol] 45 mg/dL Normal 40-60 [facility] Comment on above: Performed By: #### T SH, CMP, T7, LIPID #### [facility] [address] [address] [address] Jeffry Daniels Cholesterol in LDL [Mass/Vol] 178.8 mg/dL Normal [facility] Comment on above: Performed By: #### T SH, CMP, T7, LIPID #### [facility] [address] [place] [address] Dr. Jeffry Daniels Cholesterol.total/Cho lesterol in HDL [Mass ratio] 5.9 {ratio} Normal [facility] Comment on above: Performed By: #### T SH, CMP, T7, LIPID #### [facility] [address] [place] [address] Dr. Jeffry Daniels HDL NORMAL > or = 60 mg/dl - LO W CARDIOVASCULAR RISK <40 mg/dl - HIGH CARDIOVASCULAR RISK Normal [facility] Comment on above: Performed By: #### T SH, CMP, T7, LIPID #### [facility] [address] [address] [address] Jeffry Daniels LDL CALC NORMAL SEE BELOW Normal [facility] Comment on above: Result Comment: <100 mg/dl OPTIMAL 100 - 129 mg/dl NEAR OR ABOVE OPTIMAL 130 - 159 mg/dl BORDERLINE HIGH 160 - 189 mg/dl HIGH >190 mg/dl VERY HIGH Performed By: #### T SH, CMP, T7, LIPID #### [facility] [address] [address] [address] Jeffry Daniels Triglyceride [Mass/Vol] 216 mg/dL Critically high <=150 [facility] Comment on above: Performed By: #### T SH, CMP, T7, LIPID #### [facility] [address] [address] [address] Jeffry Daniels VLDL CALC 43.2 mg/dL Normal [facility] Comment on above: Performed By: #### T SH, CMP, T7, LIPID #### [facility] [address] [address] [address] Jeffry Daniels PROF 14(COMP METB)on 023 Albumin [Mass/Vol] 3.6 g/dL Normal 3.4-5.0 [facility] Comment on above: Performed By: #### C BC #### [facility] [address] [place] [address] Dr. Jeffry Daniels Albumin/Globulin [Mass ratio] 0.9 {ratio} Normal [facility] Comment on above: Performed By: #### C BC #### [facility] [address] [place] [address] Dr. Jeffry Daniels ALP [Catalytic activity/Vol] 58 U/L Normal 46-116 [facility] Comment on above: Performed By: #### C BC #### [facility] [address] [address] [address] Jeffry Daniels ALT [Catalytic activity/Vol] 41 U/L Normal 14-59 [facility] Comment on above: Performed By: #### C BC #### [facility] [address] [address] [address] Jeffry Daniels Anion gap [Moles/Vol] 14.5 mmol/L Normal Th e [facility] Comment on above: Performed By: #### C BC #### [facility] [address] [address] [address] Jeffry Daniels AST [Catalytic activity/Vol] 27 U/L Normal 15-37 [facility] Comment on above: Performed By: #### C BC #### [facility] [address] [address] [address] Jeffry Daniels Bilirubin [Mass/Vol] 0.2 mg/dL Normal 0.2-1.0 [facility] Comment on above: Performed By: #### C BC #### [facility] [address] [address] [address] Jeffry Daniels Calcium [Mass/Vol] 9.2 mg/dL Normal 8.5-10.1 [facility] Comment on above: Performed By: #### C BC #### [facility] [address] [address] [address] Jeffry Daniels Chloride [Moles/Vol] 103 mmol/L Normal 98-107 [facility] Comment on above: Performed By: #### C BC #### [facility] [address] [address] [address] Jeffry Daniels CO2 [Moles/Vol] 24.8 mmol/L Normal 21.0-32.0 [facility] Comment on above: Performed By: #### C BC #### [facility] [address] [address] [address] Jeffry Daniels Creatinine [Mass/Vol] 0.76 mg/dL Normal 0.55-1.02 [facility] Comment on above: Performed By: #### C BC #### [facility] [address] [address] [address] Jeffry Daniels EGFR-AF [place]IZ[place] >60 Normal >=60 [facility] Comment on above: Performed By: #### C BC #### [facility] [address] [address] [address] Jeffry Daniels EGFR-NON AF CITIZEN [place] >60 Normal >=60 [facility] Comment on above: Performed By: #### C BC #### [facility] [address] [address] [address] Jeffry Daniels Globulin (S) [Mass/Vol] 3.8 g/dL Normal [facility] Comment on above: Performed By: #### C BC #### [facility] [address] [address] [address] Jeffry Daniels Glucose [Mass/Vol] 109 mg/dL Critically high 74-106 [facility] Comment on above: Performed By: #### C BC #### [facility] [address] [place] [address] Dr. Jeffry Daniels Potassium [Moles/Vol] 4.3 mmol/L Normal 3.5-5.1 [facility] Comment on above: Performed By: #### C BC #### [facility] [address] [place] [address] Dr. Jeffry Daniels Protein [Mass/Vol] 7.4 g/dL Normal 6.4-8.2 [facility] Comment on above: Performed By: #### C BC #### [facility] [address] [place] [address] Dr. Jeffry Daniels Sodium [Moles/Vol] 138 mmol/L Normal 136-145 [facility] Comment on above: Performed By: #### C BC #### [facility] [address] [place] [address] Dr. Jeffry Daniels Urea nitrogen [Mass/Vol] 22.0 mg/dL Critically high 7.0-18.0 [facility] Comment on above: Performed By: #### C BC #### [facility] [address] [place] [address] Dr. Jeffry Daniels Urea nitrogen/Creatinine [Mass ratio] 28.9 mg/mg Normal [facility] Comment on above: Performed By: #### C BC #### [facility] [address] [address] [address] Jeffry Daniels TSHon 08-26-2022 TSH 1.963 uIU/mL Normal 0.358-3.740 [facility] Comment on above: Performed By: #### C BC #### [facility] [address] [place] [address] Dr. Jeffry Daniels VITAMIN D 25 OHon 08-26-2022 VIT D 25-OH 44.6 ng/mL Normal [facility] Comment on above: Performed By: #### I SUMMER VITAD #### [facility] [address] [address] [address] Jeffry Daniels VIT D RANGES SEE BELOW Normal [facility] Comment on above: Result Comment: <20 ng/mL Vit D deficient 20 - <30 ng/mL Vit D insufficient 30 - 100 ng/mL Vit D sufficient >100 ng/mL Potential Toxicity Performed By: #### I SONIA WHEELERAD #### [facility] [address] [place] [address] Dr. Jeffry Daniels Coding Summary.on 08-25-2022 Coding Summary. CD:[id number] G h0bWw+PGhlYWQ+RQ2MPDS fL36mcQMhdX4PU8pGXN8G QIDVQGNFHL3BGO0xhXJ4U QxiU6OehhEa VnrjjLTrPL24GBr4BGW4p NjtCKhflQ2lnKDyE8g9Hu BrCS59yP25NKbiKDOrTiF 3LjZpbjsgbWFy Q1ntLaLoxPKoJmr+PHRhY mxlIHdpZHRoPScxMDAlJy ZqbNcgMV1wJj7fHINtDBA vbGxhcHNlOiBj v6zlFVUdNJnjCE6xdIejM 7ZrpPC3UYCys7d5Za13cW I+XCMcJZZ2uNicRGxnb05 7TkRpg9jmOKB7 sIPjZCzuPAR4S98zi9R2X DSnANGrCJW1hFO3iC1bgH ktnwgoG3BwnIKtSmZ7MGY 2vHQsqD6wtQdp hhyihH5iMve+Z28XXP4PA OGGCS3RFdp4A6DhGjwwtI I+DD78RGIkZR53iATemOP nx9cktRu6OrGf FMMyDKK9jCrtLZkjb9GyE CItY25liNRrj7H7NSBtaW pugJStGdWmkLQ7bK6oIAj phbfiu5wfgzws Kfirp7ykua20pO38K99jI ZftPFFmNFC4SMOeZDIwaM cmht8ihM1cDp4+IEmmo3v mv3tapUb6AmTk KUIqlzWxlBdbXEC1x3LeZ s51C8AtwAxxp5KwUyh3ws 09kTCzc9N1pQZ4BPyuZFE vzY8cABedOfU9 XBMfVbWhtD76jFGhPSdfS x1npUqwbJmxMV5pKKHtxe lxFFOrpY4cIJPruCJwsDz wJF7sUSMilnvu u433ElAzVBP9BGPcaQNsJ 3GcbF3sVbOaQXErRMInI8 RjpZSbWBxuG889SXeyIsC 6BUUnjfEeB3Jo ZKUoyRljSuS2w2P0Do0Dx 5WiiknmGXV3OPmlMQRxJw XyPuBhHsA5G4SeUjd9CGX pnFzzVD8qY1Hx DNBhfrmkdapyxZM2XPFmX KZvzB27xVUwQWjaWj2wh3 S3j264UASgGKOprJ73Lt3 udDogMTBwdCBU mW9quqrgn2pixyfdRtLoV JRmRQb3TVj6DXTqpVupOf NfAYO7DjT5GFD4uKHcjY5 jgKsebbwdtD2r Oyc+C65tyF7kPWF2QJL0v lspFMGxsxUrZI99ZC57U1 RyPjwvdGFibGU+PGRpdiB pjWuvNK0lIeTm y9oba3GgUGorY0YaGBLeZ XqyUrq6LFNvDUU6sZG4fA 5xRPDoWVbfz6O7xFE4O9R bprXsyy3bf0ah VCPaNGbnU73ejPDct8Y6P SPiuQZ7NXRqwKpiCyWmgK 93Oyc+EVDxdFehx4DzFmc lf0fjc2tcyTg3 IqRaKRIuieKncEawMYN1h 4MbEp88X98nUZadNOCtGP VbQJYbTZKhpQgoxk2hdC1 wIi8+PGNvbCB3 eHS6sV0nXYKfGpI6INhkX 592FaYyoPHtSiosj3gqg6 atzHb0AuEsHFGdfwOlyLh sTHZ1h7DwOb73 Y58sJXojRBSlEPBxGFCqW OVoaFvgfn1qqP5xCd1+PC 4id1vkac62bR32uGQ+PHR hOPL6yDmfHMrm HFYdvJ6wJYxhWwF7SBBxG dGukR87uLClMInbSi2jdX sviZlyQG9zUXGbifghi02 4HcWuc6zfNJAe uBXuXNqtJZX4N61ep8X8U GPhAWNwPSS8kAC5eZ3bcT lnbjogbGVmdDsgdmVydGl fJPvxYZuiH478 IHRvcDsnPlBhdGllbnQgT mMhNEc5C0WiWow7AITesO hzWJ8hwQLpGBgqSp9vwPf gpFeeXP8lQLSo ohuxs975TmPrz4xuPKCkh KJdMAtcDJU7V36ax6D3OG CyEDWmGHK2sWN5cN7afBj nbjogbGVmdDsg rrHvyUszTYetRZuvT659J HRvcDsnPkJpcnRoIERhdG S3MR18JL77mQHkp5W9nSU 0W0BoVRXcfsru bocluWJ5CWHyWHBnqI32V o4fuItxUl8pXVTqPCI0RE NxgXJjX3OdkL1nSaDaBKR uKDQlE2DohJSt CWuhL867TDsfQqP7VVNrx jUaY2CbVRJomScdHwS0a1 D3Jk4SY2K9LQ86HF74gLD mz8W2wNQ7B7Oa QPKaxcejchiveJL5MYMyB UMpkD23Th4bmPqtKh4jSW HcKES7KGHitLRpI0BxjB4 yOiAjMDAwMDAw E0IyoIHrNBxeI283SOkoF jN6AVYhylTtG1YqEDUlrB wkDhH8a2Y2Qb9UPTu0QF7 4AP84fKFqi6T1 kSV0Q4ZqILJoaveboysjs NZ9DJVmBWFwzK68Uv1kgC aiUn3lMNKmDCP8RTWknBY gG5NngH8mSaIj HTIrRCSmZ1UabZTkQWdgO 342ZQyoAlA3QUKtsdLkG2 AyBOJrhBzjXjJ1x7A2To7 HHFEpPL59CTK3 uLZ7PH40QW11P6KrNgcqo GFibGU+PHRhYmxlIHdpZH RoPScxMDAlJyBzdHlsZT0 hMz0oJBGmSGGk aHbbtRXsYvJce6zoTOJoI PsrVP8hxHwuW9KeuKI2XN Nrn6f9Ge06F84kY7WwjNU +XAByfXK9qYD8 aB6bEaWvClT0JYntD437T iRurIAwAhdbn6jqq2jxlM r3KsV0DIJxoxGplCwqZJI 9z7JzKv96Z35v IHdpZHRoPSIxNSUiIHZhb Meawr8gdQ4xNt6+PGNvbC A3aGA5yI2jVoXrJnD5FWb pL917IpJinKAx Gtowx8cpd5qvrJa3MpBmQ DGzgfYmpWebFED0r7NmKm 15C2NqnZpnj0KyEay5cw8 7cFXkp8P8mKP6 F7ZvBQVylzcvyKNafWcqU E1jPSUbkhsoYTLsaJ5dII DlB0y5CzUcDvM2ADvuO7C sgaJ6XZHtdILu UJzpOOR1O95ab4E5ZSIbC FEaCVG6mIA6jC0viAuatd ogbGVmdDsgdmVydGljYWw dPJanN045ILRv hDavLLMamI5lXNNxbCMjo YgiKF8cTIGoynhoMwDQZZ 7VUIRmWVnDRWFDZXK8X9E mLbv2SKGxxKgz TR5uuGLoIFsyBr3zyIivn CgzWL9uOVTpkzuqJKMigF 5pFIWfkGCptUngHX9oZOO cvdeok843SzUq MBB0KDDctRNdG2EazT9tF mVvPWBjTXHnA5HxeSZjUS etO057QWhlOoM2KTIaopM zW4WxODNmhBuy MzV1d9Q4Aw4bOF5pNS4vV EKnWR09DT60uCWwa3N9lW L6Q5UyECGjiqiqdlbnhKA 4JRYxKBXzuB19 vNGfFVroXj2db2R2y197W VLcBFFyrK68Cm3avHobLS SfqJQNlP3ffvptq0znlgc gIzAwMDAwMDt0 OAt3QOUjtMjmUaYlSNU5S gK1NUP8sXYddZ8acGtait rykK7nPyv+NjAgWWVhcnM 3U4HsBwh2YHEs iLwyAU5seXDfDVpoSm9ei AjlsMwvHJ1zTWPltmvaNW CutK1mFBZlyOTyvScyIE1 gLTVelwchn599 TvDxTRL4ZUObrJLoD2Ung S5tCiTeZGUgVQLqZ9HmzW AjUHbeX416YIcyCxR1USQ utiEmV6WqHJYi wJedZfS7j6A2No1QYN7kw BI7Q0LmFgv4BFJrxSfiZU 9bsJBgYSbdGu0jtGufjIi bFT6pKNPmqamf ZDPlyC9cOZTmtYUylZblO N3yYTNdwpvvq319LjYoYN S1KBKcbJSiN4SceQ3zOyO aWNWrFDXvC6Po xKTcPLghG495OZbaBoZ7C LTsdeKwM1TsOTKazGiaMi M1l0J3Jz0XFTnoKI8mkhK oZV5xinU8B5Eo PjwvdHI+DV93KJTwJA13v LWjfFPcs8jovPu1SxNjUT ReWCE7rUojNRbkx2SsXLB sN40boBVrm4Q8 ZFMluWszfQGuQxXogVW8s B2uYJqsxxmnp1wbazkbEr ztu0uxet91mU50O78nBCr pZHRoPSIzMCUi CUZmpKvckx1gvX3wXe8+P CUmfTN0rAD6cT9fOpEnOe R4OZvuR477SwTfjMJcVks nv1ypk9zilEc0 RfSyPKQybyAzyJchBQS3v 5ObQn93N08aUKyaBAUxPG HcRZQyHRHtrZeecn4ytK2 wIi8+HV0yo3rx kr17hG68gXO+TYOmGDW8d EamBRmdETQbrN2wURzuBj U2LCAbPiKgdJ42cLWiKFx dUm3glSitxUpb PQ7mVITfyqsmb235IzRal 0ckIYVbhLBrTRahDJE1V2 1hz2S0MHHoDQMlQRW9iZF 3aI1gdAkbgfss bGVmdDsgdmVydGljYWwtY VttR951JVBwoFfzSdLykR SuV6ssanOKHY4bSnhbxSK +MITwROB7wSkr CQsnZBPmwL6qMWHkB4x7J eNvAmP2XAnzN2AuueO5BB GliKFhEVAjbYUAwZ9szlt yc2gpgoewMeUr BRFhHEb5TEe5QTHbrNlyL hNfNXY3WcI0DWY6fUKdpE 6glBfjyvvylI5kWng+Rkl OOjwvdGQ+PHRk UWE2uSzxQNtwSLGfvS1dP BGlQ5n4IfXwRtR8YFznI5 GvjnA2RSGwgTOdLEPsbRP YgI7vsjhas9vz pzhcVmYlESGdGMh9MBj0C XYxbAbcKyPdQNC7SfJ2DT V4fAEbqV3weOnjskopnD9 wOyc+TVJOOjwv dGQ+DDJzOTB6zRgcHYccT KLjfP0fGYUdN7u4PnWwMy I9CSvaT6WwioE9HOKfvBN wONOonSYZhN6s qexcz6gtsivwZkFgPUNuP Sz5GHc8LCEzhPtsKzFjBN F6JtO1WDI5kLPwzZ6cuWd zuzpoqL0bDji+ SFX7HIQ8PF31RV59E7LsG jwvdGFibGU+PHRhYmxlIH dpZHRoPScxMDAlJyBzdHl kJR2mRf5tIBTg LWNv (more content not included)... Normal [facility] Insurance Correspondence Off iceon 08-24-2022 Insurance Correspondence Office [id number]# 1.00CD:127 Normal [facility] Office/Clinic Note-Physician on 08-23-2022 Office/Clinic Note-Physician [id number]#1 .00CD:127 [facility] Consent for Treatmenton 08-06 Consent for Treatment [id number]# 1.00CD:127 [facility] Consultation Noteon 08-22-19 Consultation Note Patient: ELISA GOMES Age: 62 years Sex: Female : 1960 Associated Diagnoses: None Author: Eddi Arana MD Subjective Chief complaint 08/22/2022 13:06 EST Lower back pain . 62-year-old female with persistent severe low back pain. The pain rates between a 6 and an 8 out of 10 on the visual analog scale. JACKIE 32. Patient feels a popping sensation in her back. Patient is following up from an L5/S1 epidural steroid injection on 08/01/2022. The patient reports no significant lasting relief. Denies any red flag symptoms. Denies any apparent complications from the procedure. She is here to discuss her further treatment options. The pain does significantly impact her quality life and activities of daily living. The majority of the pain is across the low back. It hurts more when she is driving and with twisting. Treatments have included physical therapy, high-dose ibuprofen, and gabapentin. Despite those medications the patient continues to have rather severe pain. Health Status Allergies: Allergic Reactions (All) Severity Not Documented Penicillin- Hives. Sulfa drugs- Hives. Tape- Rash. Current medications: (Selected) Prescriptions Prescribed tiZANidine 4 mg Tab: 4 mg = 1 tab(s), Oral, BID, PRN Spasm, to be used in the AM and afternoon if needed. She uses 8mg at night she already has, # 60 tab(s), Refills(s) 0, Pharmacy: [facility]/pharmacy #[id number], 166.8, cm, 10/11/21 14:46:00 EST, Height/Length Dosing, 84.8, kg, 03/0... Documented Medications Documented Fish Oil: 1,200 mg, Oral, Daily, Refill(s) 0, Prophylaxis Metoprolol succinate 100 mg ER Tablet: 100 mg, Oral, BID, High blood pressure Misc Medication: See Instructions, collagen powder 1 scoop daily Multivitamin, Therapeutic w/ Minerals: 1 tab(s), Oral, Daily, Prophylaxis Vitamin C 1000 mg oral tablet: 1,000 mg = 1 tab(s), Oral, Daily, Prophylaxis Vitamin D3 5000 intl units oral tab: 125 mcg = 1 tab(s), Oral, Daily, Refills(s) 0, Prophylaxis acyclovir 800 mg Tab: TAKE 1 TABLET BY MOUTH DAILY, Other (see comment) alprazolam 0.25 mg Tab: 0.25 mg = 1 tab(s), Oral, TID, PRN as needed for anxiety, TAKE 1/2 TO 1 TABLET BY MOUTH THREE TIMES DAILY NEEDED aspirin 81 mg Oral EC Tab: 81 mg = 1 tab(s), Oral, Daily, Blood Thinner biotin 1000 mcg oral tablet: 1,000 mcg = 1 tab(s), Oral, Daily, Prophylaxis fluticasone 0.05 mg/inh Nasal [place]: 1 spray(s), Nasal, Daily, Refill(s) 0, Allergy symptoms gabapentin 300 mg Cap: 300 mg = 1 cap(s), Oral, BID, TAKE 1 CAPSULE BY MOUTH TWICE DAILY, Pain ibuprofen 800 mg Tab: PRN as needed for pain, as needed, Refills(s) 0 lisinopril 40 mg Tab: 40 mg = 1 tab(s), Oral, Daily, High blood pressure metformin 500 mg oral tablet: 500 mg = 1 tab(s), Oral, BID, # 60 tab(s), Refills(s) 0 metformin 500 mg oral tablet: 500 mg = 1 tab(s), Oral, BID, Refills(s) 0, Blood glucose omeprazole: 40 mg, Daily, Refills(s) 0, Control of stomach acid pravastatin 20 mg Tab: 20 mg = 1 tab(s), Oral, Once a day (at bedtime), High cholesterol Problem list: All Problems Abdominal pain, RLQ / SNOMED CT 162784339 / Confirmed Anxiety / SNOMED CT 30315886 / Confirmed 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 / Confirmed BMI 31.0-31.9,adult / SNOMED CT 002584877 / Confirmed Change in bowel habits / SNOMED CT 264498399 / Confirmed Chronic cluster headache / SNOMED CT 002266125 / Confirmed Chronic gastritis / SNOMED CT 56959508 / Confirmed Chronic leg pain / SNOMED CT 620844495 / Confirmed Colon polyp / SNOMED CT 184940356 / Confirmed Diabetes / SNOMED CT 889027275 / Confirmed FHx: melanoma / SNOMED CT 0151475639 / Confirmed H/O: osteoarthritis / SNOMED CT 698065185 / Confirmed Herpes dermatitis / SNOMED CT 14600272 / Confirmed History of Helicobacter pylori infection / SNOMED CT 4058764494 / Confirmed Hyperlipemia / SNOMED CT 33916228 / Confirmed Hypertension / SNOMED CT 0639438793 / Confirmed Insomnia / SNOMED CT 465682941 / Confirmed Irregular heartbeat / SNOMED CT 319149165 / Confirmed Laxative abuse / SNOMED CT 730656921 / Confirmed Lumbar disc disease / SNOMED CT 4067084284 / Confirmed Lumbar radiculopathy / SNOMED CT 924646537 / Confirmed Migraines / SNOMED CT 57526487 / Confirmed Osteoporosis / SNOMED CT 735898171 / Confirmed Palpitations / SNOMED CT 445290144 / Confirmed Rectal bleeding / SNOMED CT 826616367 / Confirmed Vitamin D deficiency / SNOMED CT 03751723 / Confirmed Objective Vital Signs 08/22/2022 13:06 EST Peripheral Pulse Rate 65 bpm Respiratory Rate 16 br/min Systolic Blood Pressure 106 mmHg Diastolic Blood Pressure 61 mmHg Mean Arterial Pressure, Cuff 76 mmHg General: No acute distress. Alert and oriented x3. Well-nourished. Well-developed. Musculoskeletal: Arises from a seated position with minor difficulty. Injection site healed. Distinct pain with lumbar facet loading bilaterally. Minimal pain with flexion lumbar spine. Neuro: 5/5 strength throughout bilateral lo (more content not included)... Normal [facility] Comment on above: Result Comment: Elec tronically Signed By: Sumit MURILLO, Eddi Edwards\.br\Date and Time Signed: 08/22/22 13:33 EST Legal Correspondence Officeo n 08-22-2022 Legal Correspondence Office [id number]# 1.00CD:127 Normal [facility] Office/Clinic Note-Nurseon 0 08-22-2022 Office/Clinic Note-Nurse [id number]# 1.00CD:127 Normal [facility] Office/Clinic Note-Physician on 08-22-2022 Office/Clinic Note-Physician [id number]# 1.00CD:127 Normal [facility] Patient Correspondenceon Patient Correspondence [id number]# 1.00CD:127 Normal [facility] Patient Correspondence [id number]# 1.00CD:127 Normal [facility] Patient Correspondence [id number]# 1.00CD:127 Normal [facility] Patient History Officeon Patient History Office [id number]# 1.00CD:127 Normal [facility] Coding Summary.on 08-04-2022 Coding Summary. CD:[id number]:[id number] G h0bWw+PGhlYWQ+YD6BHXR wB93dyWKfaQ4MJ3dGWQ8S ICHRNABMFG6TAB0loRO7J UzxH5NcyuFq StednKZrOZ59LRc4FTV2w PwiQIpubL0qtNHdF9i1Wg QtTO34gO30UHkcRAEaIiZ 3LjZpbjsgbWFy N1vnZtFwjBJeMzd+PHRhY mxlIHdpZHRoPScxMDAlJy ZooRgbYJ5eRl3bUVXdTJF vbGxhcHNlOiBj c5joMMJzGJqoUX4iaTrdT 4HfvRL7XWDae5w8Og79eK I+TDEzVTO4bLpjYQnqt78 8LlLby2nkOWJ9 uDWxQDfmZAI4V49uc9Z8W CHrVQCzHGL8fYD9sN4gmD hgyzzeY7ApdDDmQvE7BNU 0bKOvmT9vfJmd sdthbE8qZaa+L34BRM9JR WNGKG6QRtq8J7CnIzvohS I+OL55DTSaAK36oSRoeEX wj0kkgFi5LmJv UPNbHGH2pBnnQTvas0DdT NVrR77aqFHpi6T7FYNziM wsaJYwXvDqfOM2oO3xMPh ticeea2vfhabb Ielzv4umup23nN18S81aR BqtJVWoNBW6VUWhAUZbwW hvoa9ylT6sNw9+HNruo2u az1irjRy4KxGx TBQqptBorRwiHAJ0v4AoR w08D8DlvNqma9EiUtk0bv 23eGYmn0M5uWV7TXwtABB yoC9mFRgtLvB7 MTKmFxDpeE85yNUbLYzhR c3sdAjhwZkjYC2qTVDcsv jiGHXyjV8rFKRalNGgfPa gQA3gEENzuqsi t665GtUkVPC1SSByqDSuN 9XbmC8uDvLdKMTdOLOwK7 TktBAlIXxjP346PDlnHzU 1TZJgavYoG6Kp AXZnnXvmApS9k2U1Po5Ta 8BshzqyKXT0YHubMTXuJr NuTvPlFuC6X2GiJkc0BAZ dnPwkZA3nO4Rg CYEixbgrxfmjoLD0YOPcI DOeaR53zXTwABwvJe9ws6 G9q499QKChKKOcxJ24Gg2 udDogMTBwdCBU yA8ixbzux5bzwvqtXkIeV WGmIBo2BZb5XQVawEtgDb RaNIW3NaS2YBR8cVIgaV5 euSatojeqkQ0w Oyc+R21nrT3zUCR3ORX3m gtkUDKxcaZaID99FH28C8 RyPjwvdGFibGU+PGRpdiB cgKppVY5iSdQt u8agr6OrEGuwQ3CxFECxJ FsjCvs1HMHxDYA3xCH2pF 2kGDDzYAyth9F4sHE5O3K elvMhub7xz9fh WRKbCNufS63gxTGvs6N6R XHszQX1KAEvlCosFdRtpK 93Oyc+BZJjnFars6QrPib ek0qwg0tmvQc8 SpIwTWSkmfPfnIdbCQJ6d 8HbVd26E03fKJodPXFaZX InERWcJILshDandi9erZ2 wIi8+PGNvbCB3 vHT4uX3qLGMzNnH4ZZabK 031TuJtaTVkXedsj4fgs4 djcEe2EaWsDIVpcpSslEq dWFM7e4IrLv69 F42xHBztDARxXXCxPLWvS DBmdFqgxu2loB0kGc1+PC 3rr7wdto73cV37bJU+PHR aHVY2qXqjLIrb BHThgQ7wYAqgUpI7BELlU dTbwX32dBWeUWziAj5gmC pzvNygMJ0vDXEkypyoc14 3NhWlr1afOJHb eWYhJOxoIXP7A17bm1Y3T SPdQHBdSSO8pFO1gA5ojC lnbjogbGVmdDsgdmVydGl pIVsgEArrF501 IHRvcDsnPlBhdGllbnQgT wNiQGz8N6TxFlb8JLNbvU fwEW0cxJTcLGdgPc9cgDm ldLyhIY6pNHGs actuu938XvVuc1gvGFMnd MRtQHofRFW0R85ay4S3AA IdBISyTES1iSR8yU7kpHv nbjogbGVmdDsg doXrmCoeWFfvGEjxR080V HRvcDsnPkJpcnRoIERhdG J2PU33ZI79gSHaw5X4hIL 7M9OsHZHrxbts gewpxYW7BZScVNTnuJ19S p9gxKmzKq8mRZEiRZK3PS QloCPwG9KlxU5dFhXpOAF eHUMpV2RveANr ALfqK533RZclQoH2JWIys rPjK2JrOHLpqCvfBvU8n9 F9Hs7KQ5G8IC45PP54yYH ew1N5rRO9R4Ec UVTfiwofjnyabXH7RGIpH UHevM27Fb6ruBdtLl5bCH NjXUQ5VOHkyHSkB7SymT3 yOiAjMDAwMDAw E9LchPKzSOiwT077PJwaM kS3IPIwbcHrX1PdSIGzeG jjMcK4s0Z5Ma1FILn5DL7 9DR35zEHlo2L5 yKF1U5FbPNVpbuhyhcapm SF9OUCgPXOghZ64Co4rcR ovKs4zVKNgBZE7ZTUplKK dC5YklR6lFtQx DYXcDVYuC6QbiRDnMIpsH 907VCejByX6TXEmtzNbC1 QoYADwpClaJzW4x7U9Sj1 JOOQlMN73OYH9 tEI5BG44LN78H4JtCvzih GFibGU+PHRhYmxlIHdpZH RoPScxMDAlJyBzdHlsZT0 tGb9mTAVdBTWw eKaosAAsGqSej2wwATFuP XniPX6aaScqK3KqoJR0AD Uoz3a4Gy00C47rM2SjmOZ +XICzuJT5nDI1 hC9cJeMfJjQ9NTyzN029X pUxnBZdSgrqu7vax5mvnX y8HkZ7XBIqviGzaEjyCWE 4l4WeWj02C32w IHdpZHRoPSIxNSUiIHZhb Pkfge5ruI0cTc8+PGNvbC H4zJG4yH6rPeHdZnW2CCt qM796LiFnvKKw Vhpej0nno2xoeTv3KfNpN CYsjeRicXzqERY2m1JsRp 71G8JwiXahf9WvCri6th1 9qYIai3I7cRJ5 L5ZbHOCrtrtsfKWjiMymX P0lRGHcdllwRYHzuA9tTE OvI5f3OuFuKsG8AEznY7F hlsM6ZWFmzFXp OUmxHMS2Q32oy5K4ACPzL KRkYEY2lWR8iA0kmBkaph ogbGVmdDsgdmVydGljYWw kDAuyI155WOYd oYjyMNRweA8rVNNuhPTzm BebWJ3tBGTvrevmWgHCBD 0TONGmFLcYIDSRALJ1X6F lDuq4JKZwhIfl DW9rtVRnVJsnKu1avYbpz UmrQR9yGQRaanvqTGXdqB 8cCHWctBZirNicTC8tPPP labqjn813CjUu XTT0JPLweYEnV3AbnH5lF oFvDJWrQCLjP9DmhSSxJG ofH830KEwvQgJ2QADyueG fN0KiWAKuuSsr JhK9h2H7Iv0qUF7kHV6vR FWaQV43YN67bJCnv0E4xL N2T7EbPKFsjozvdlasfYR 4PBSiMVXnnH38 fQApBKrgNf9wj2V3j735W KJvSLUjxV17Rv6idGpiPQ StqXANbB8zeigrm9weceq gIzAwMDAwMDt0 FTa1LNAttRabOuZiYRM1Q hC3MMX2uHThpG2mcEkazf jxnC9hPck+NjAgWWVhcnM 3L8OySzr6OFTy jPnhAH8pmOSeUMpxJh2ee MlrqReuJK9eJMBbentrEO HfmW1xPNOjnTDqeHpuUO6 uLXMvnsfok981 UsHoGOB3KYKlxCBuX8Jhf R9qUbEcTMVpOOItK6JtdZ BaZGlnY510HWynGuR3XWA kwxYoI4GvLSKh dTatPkY0b5B8Jk8ZXW4zj PT8Y1AfVha1TBUlaUeaHK 6ktKJkCIeiDq1mkMrnaQr fXP1uLEWhznsh XUKarU0vODHwwHQglQxeW G7jEBDazvbqh074FiUiEP U3YKTtiKHcJ2BhvE3nTcQ pOCNcSCOjI1Qx vAYjLRbqU297XTqkKfR9I PCskdDhV9GiTBJeqBrnCy R5t1V0Mg7EIHxuSE7mxjM pEQ7chvL1D3Xi PjwvdHI+CC53PSThNN53g XBnuAQyd5trjHw6KjIfNJ GdPBC8fAafBOxnp3YqHHH nJ53mmAOqf3W8 IVAaaFlutRIiTnPetVQ4u X0lZBmdpkflb5oosrjfEo ynu8ivrl14eZ76W64qFAv pZHRoPSIzMCUi LUNbiQhbuo7kdV5oSo6+P RIhsRJ2qUY6mQ6cXoPmIe F7ZNtzC417VrZdvOMiIbn lw3tgn3wadBu6 KlEwHHYtreJdzFhxZPW5u 6LgBx68P57qLGneNLQfUU WhFKQtLAGebGwjfs7bxC9 wIi8+XY0rb4wu dq56lZ72eGA+GNTgZIU3l LcoKXokYBLtlO2uJZesUl L9WTZoGzYiiO19sGLgVBi dWb7cuNybnOdq WU3sDDOemdhry573ZtBpu 6jbQPQpiYKfXDfqXAU8Q8 6lp1T4BUGzXLVqMMA2zIM 2iQ1csZbeddok bGVmdDsgdmVydGljYWwtY RcqJ106SQCdsKbfBlDysI OsX9qpxjGVZI2gRhxfjYR +MFTfGLR2kHjt HRelLNVruB7eTBAkG9n6H eAcAgN4RHmgI9TbyoE5OR NosWMnUEKexPQHgQ1hqew km3zymmapBqFv AVYsCFr2RKu5QNIniXuvU lXwFZU0MxS9ERH7lLHydS 1srEyepdjwmA6lFen+Rkl OOjwvdGQ+PHRk OBS4bPrrKRvaMMXzkO6tP XYeV8y7EnNyHvE1VNjtN1 WiwyQ4EVThxIIzJUSchGM IiI0outixa1gy fuyhVbIvTZAaYRf1IFx9A JDujJyoJaFbHXA8HcZ2AH B9eZKaqQ5nfHkzbqfsjU3 wOyc+TVJOOjwv dGQ+VENkIKY9pSneVFbiS LXakF3wHZUnA7b1ImHzFz H1NHneZ2PzigG4MLGtmWL rUOCcnCMTcS4y zezuo2txlzxiJxTrKFMrS Ja4COq7MIAotGdcRhKsFW Q3TyW4DOS1dJXryF4sgVv yquwmeF7zEfs+ FEU1ERZ0KC08DH54S9LfJ jwvdGFibGU+PHRhYmxlIH dpZHRoPScxMDAlJyBzdHl rWB4iZb1xEDUr LWNv (more content not included)... Normal [facility] Capillary Glucose POCon 07-07 Glucose [Mass/Vol] 103 mg/dL High 55-99 [facility] Comment on above: Performed By: #### 2 [id number] ####[facility] [id number] [place] [address] Consent for Procedure/Surger yon 08-01-2022 Consent for Procedure/Surgery [id number]. [id number]# 1.00CD:127 Normal [facility] Consent for Treatmenton 07-07 Consent for Treatment [id number]. [id number]#1 .00CD:127 Normal [facility] Discharge Instructionson Discharge Instructions [id number]# 1.00CD:127 Normal [facility] IntraOperative Documentson 10-02-2021 IntraOperative Documents [id number]. [id number]# 1.00CD:127 Normal [facility] Main OR Intraoperative Recor don 08-01-2022 Main OR Intraoperative Record IntraOp Document Type FTPM Summary Primary Physician: Eddi Arana MD Finalized Date/Time: 08/01/22 15:35:58 Pt. Name: ELISA GOMES Amita Robles./Sex: 1960 Female Med Rec #: [id number] Physician: Eddi Arana MD Financial #: [id number] Pt. Type: P Room/Bed: / Admit/Disch: 08/01/22 10:24:30 - Institution: Case Times FTPM Entry 1 Patient Times In Room 08/01/22 11:25:00 Out Room 08/01/22 11:31:00 Procedure Times Start 08/01/22 11:28:00 Stop 08/01/22 11:30:00 Anesthesia Times Last Modified By: Ria Martinez RN 08/01/22 11:31:06 Case Attendance FTPM Entry 1 Entry 2 Entry 3 Case Attendee Sumit MURILLO, Eddi Ferrer RN, Ria Gómez RN Role Performed Surgeon - Primary Scrub - Primary Social Security Assessor - Primary Time In 08/01/22 11:25:00 08/01/22 11:25:00 08/01/22 11:25:00 Time Out 08/01/22 11:31:00 08/01/22 11:31:00 08/01/22 11:31:00 Procedure LUMBAR EPIDURAL STEROID LUMBAR EPIDURAL STEROID LUMBAR EPIDURAL STEROID INJECTION(.) INJECTION(.) INJECTION(.) Comments Luzma-student Last Modified By: Ria Martinez RN 08/01/22 Ria Martinez RN 08/01/22 Ria Martinez RN 08/01/22 15:34:03 15:34:03 15:34:03 Entry 4 Case Attendee Shashi Ambrocio Role Performed Guard Sergeant Time In 08/01/22 11:25:00 Time Out 08/01/22 11:31:00 Procedure LUMBAR EPIDURAL STEROID INJECTION(.) Comments Last Modified By: Ria Maritnez RN 08/01/22 15:34:03 Perioperative Protocols FTPM Pre-Care Text: Implements protective measures prior to operative or invasive procedure, confirms identity before the operative or invasive procedure, verifies operative procedure, surgical site, and laterality Entry 1 Procedure(s) LUMBAR EPIDURAL STEROID Patient Identity Birthday, ID Band INJECTION(.) Verified (select at Check, Patient least 2): Participation Consents / H and P HandP, Surgery/Procedure Operative Site Present Verified Consent Marking Verified Surgical Site Yes Laterality Verified Yes Verified Procedure Verified Yes Correct Patient Yes Position Verified Availability Equipment, Medication, Prep Dry Yes Verified (If X-ray Applicable) PreOp Antibiotic No Time Out Ria Martinez RN, Myers Given Participants RN, Sumit Monroe MD, Lolly Jimenez Bryce Time Out Complete 08/01/22 11:26:00 Outcomes Met? Yes Last Modified By: Ria Martinez RN 08/01/22 15:34:24 Post-Care Text: The patient is free from signs and symptoms of injury caused by extraneous objects Allergy Information FTPM Pre-Care Text: Verifies allergies Entry 1 Allergies Reviewed? Yes Allergies Reviewed Self/Patient With Outcomes Met? Yes Last Modified By: Ria Martinez RN 08/01/22 15:34:30 Post-Care Text: The patient received appropriate medication(s) safely administered during the perioperative period Surgical Procedures FTPM Entry 1 Procedure Description Procedure LUMBAR EPIDURAL STEROID Modifiers . INJECTION Surgeon Description L5/S1 LES Primary Procedure Yes Primary Surgeon Sumit MURILLO, Eddi Edwards Start 08/01/22 11:28:00 Stop 08/01/22 11:30:00 Anesthesia Type None Surgical Service Pain Management Wound Class 1 - Clean Last Modified By: Ria Martinez RN 08/01/22 15:34:35 General Case Data FTPM Pre-Care Text: Classifies surgical wound, implements aseptic technique, initiates traffic control Entry 1 Case Information OR Pain Proc Room Case Level Level 2 Wound Class 1 - Clean Specialty Pain Management Preop Diagnosis M54.16 Postop Same As Preop Yes Postop Diagnosis M54.16 Outcomes Met? Yes Last Modified By: Ria Martinez RN 08/01/22 15:34:42 Post-Care Text: The patient is free from signs and symptoms of infection Skin Assessment (Pre Procedure) FTPM Pre-Care Text: Implements protective measures to prevent skin/ tissue injury due to thermal or mechanical sources Evaluates for signs and symptoms of physical injury to skin and tissue Entry 1 Skin Integrity Intact, [place], Warm, and Skin Abnormality No Dry Outcomes Met? Yes Last Modified By: Ria Martinez RN 08/01/22 15:34:52 Post-Care Text: The patient is free from signs and symptoms of injury caused by extraneous objects Patient Positioning FTPM Pre-Care Text: Identifies physical alterations that require additional precautions for procedure-specific positioning, verifies presence of prosthetics or corrective devices, positions the patient, evaluates the patient for signs and symptoms of injury as a result of positioning Entry 1 Procedure LUMBAR EPIDURAL STEROID Body Position Prone INJECTION(.) Feet Uncrossed? Yes Left Arm Position Resting at Side Right Arm Position Resting at Side Left Leg Position Extended Right Leg Position Extended Positioning Device Pillow Under Head Large, Safety Strap, Pillow Large Under Knees Press Points Checked Yes By Ria Martinez RN Outcomes Met? Yes Last Modified By: Ria Martinez RN 08/01/22 15:35:01 Post-Care Text: The patient is free from signs (more content not included)... Normal [facility] Main OR Preoperative Recordo n 08-01-2022 Main OR Preoperative Record Holding Area Document Type FT Summary Primary Physician: Eddi Arana MD Finalized Date/Time: 08/01/22 10:43:25 Pt. Name: ELISA GOMES D.O.B./Sex: 1960 Female Med Rec #: [id number] Physician: Eddi Arana MD Financial #: [id number] Pt. Type: P Room/Bed: / Admit/Disch: 08/01/22 10:24:30 - Institution: Case Times Holding FTPM Pre-Care Text: Verifies consent for planned procedure, identifies individual values and wishes concerning care, includes family members in perioperative teaching Secures patient's records' belongings, and valuables, maintains patient's dignity and privacy, and maintains patient confidentiality Entry 1 In Holding 08/01/22 10:41:00 Outcomes Met? Yes Last Modified By: Coco Mendez RN 08/01/22 10:41:02 Post-Care Text: The patient participates in decisions affecting his or her perioperative plan of care The patient's right to privacy is maintained Surgery Checklist FTPM Entry 1 Patient Birthday, ID Band Procedure History and Physical, Identification: Check, Patient Verification: Surgical Consent, With Participation Patient NPO after Midnight: No Date/Time: 08/01/22 10:41:00 Results Reviewed 0800- meal replacement Personal Items: Glasses Comments: shake Personal Items n/a Complaints of Pain: Yes Comment: Pain Comment: 02/12 lower back Operative Site Yes Marking: Marked By: Dr arana Location: L5-S1 Availability Equipment, X-Ray Verified: Does Patient Smoke No Patient states Yes Comment - Adult Friend- Mickie postop adult Supervision supervision available Case Cancelled in No Holding Area see comments below for reason Last Modified By: Coco Mendez RN 08/01/22 10:43:19 Finalized By: Coco Mendez RN Document Signatures Signed By: Coco Mendez RN 08/01/22 10:43 Normal [facility] Operative Reporton 2 Operative Report Patient: ELISA GOMES Age: 62 years Sex: Female : 1960 Associated Diagnoses: None Author: Eddi Arana MD Procedure Procedure: Lumbar Epidural Steroid Injection with Fluoroscopic Guidance at L5/S1 Diagnosis: Lumbar radiculitis, lumbar spinal stenosis with claudication Anesthesia: Local The patient was identified in the pre-op area. The procedure, including risks benefits and alternatives was discussed with the patient. The patient agreed to proceed. Informed consent was obtained and the site(s) marked. The patient was brought to the procedure room and placed in the prone position with padding under the abdomen to reduce lumbar lordosis. Time out was taken. The back was prepped and draped in sterile fashion with Chloraprep. Skin and subcutaneous tissues were anesthetized with 6 mL of Lidocaine 2% through a 25G needle. An 18G Touhy needle was then advanced under fluoroscopic guidance (A/P and contralateral oblique views) onto the inferior lamina and then advanced cephalad into the L5/S1 epidural space using loss of resistance technique with a plastic NEIL syringe. Isovue 2mL was injected under live fluoroscopy which demonstrated appropriate epidural spread without vascular uptake. After confirmation of negative aspiration, 2mL of 2% PF lidocaine, 4mL of PF normal saline, and 10mg of PF dexamethasone (in 1mL) were injected. The needle was removed and a bandage applied. The patient was brought to the recovery area in stable condition and then monitored for an appropriate period of time. The patient was discharged home in good condition with post-procedure instructions. No apparent complications. Epidural injection procedure Physical Exam: vital signs Vital Signs 08/01/2022 11:26 EST Heart Rate Monitored 62 bpm Respiratory Rate 16 br/min Systolic Blood Pressure 128 mmHg Diastolic Blood Pressure 86 mmHg SpO2 96 % 08/01/2022 10:41 EST Heart Rate Monitored 59 bpm LOW SpO2 97 % 08/01/2022 10:41 EST Temperature Axillary 36.6 DegC 08/01/2022 10:40 EST Respiratory Rate 12 br/min LOW Systolic Blood Pressure 157 mmHg HI Diastolic Blood Pressure 80 mmHg Mean Arterial Pressure, Monitered 106 mmHg . Normal [facility] Comment on above: Result Comment: Elec tronically Signed By: Sumit MURILLO, Eddi Edwards\.br\Date and Time Signed: 08/01/22 11:33 EST Insurance Correspondence Off iceon 07-24-2022 Insurance Correspondence Office [id number]:127 Normal [facility] Patient Correspondenceon Patient Correspondence [id number]. [id number]:127 [facility] Coding Summary.on 07-14-2022 Coding Summary. CD:[id number] G h0bWw+PGhlYWQ+SV0MGTP yQ77wuOJtyI2BX2fOGL2Q QHPZIJCFLD0NIJ8yoPN7T OmgE8VrbrUw XsfdxNPsNZ28ACn5IUM9g KcjHPntvC2hmYKcH9a8Kc CnUE61gQ89EPvhQXJmDbI 3LjZpbjsgbWFy T3bxPmAvxZTdOla+PHRhY mxlIHdpZHRoPScxMDAlJy CfeCxyLK0uXc4xVWPiHIW vbGxhcHNlOiBj e7wyGIVyCObjSZ0atZphK 9HyhCG4QLKcc4r2Jl08hT I+XYBfNJQ3aYwkPAaau16 4VeVcn9vaQZQ3 sSUlCBlrIKP9F57sq5Y3I XHmKUXbXNN2fMW7cA0pwA lrswqdH1MpaABbBsC3IUL 0nZZkfN2iaEtg ljopiJ8aMdi+V40BAG4RU JRUTR8WDyt1I4QtGayifT I+NK99IMDoUI31wVZyqFW gq4vbtAw6IvUb XYZoUTO8gRwsPSkkp6FxE LCrK61weHHxd5G5SMTrpB wkjIXyMhUqwWH9xW8bJVs tnuiow8guwoer Cmxlu1ridr76wE46V83cS MprNAFuEHQ0JREbGNQauR fcib5giE6jUw0+RPggy2x oy6fahCb7ZpQv EYJsfxVgdXxiUOU2h0JoU j34Q7XfrRtkg0MjPto7ym 22xRQbb3Z2fWE7QDwyEJK ksN5oSXstXvU1 SGZfStMoiV67zNUhPCpgQ u4mhMcmqZuoAB3sQAWzob dpNBQmbJ9rZRGfoEWjcYo qJE1eBEZququi h268UnLgPFH6QHSbvNZyK 7AazA2cGdWfJYXhUQWiM6 MkvUOmYIvxN893KOseBiB 8DECdydXyZ2Ld GMUdkLvkHlM4z7H6Qu8Ia 0HjsvagEIB3ATwkHGYtGe V1OdHeTsP9F8HhLep1TMW nqOitAA2vB8Ak EABmdjngmvjwjSU0CDGqM SZcsC04aHSuBWbtOq9vy2 Y3v966LQXwMXZtlG44Yd2 udDogMTBwdCBU uW9giqgmr9liubtuJeKhQ KVxNIn7LHy1MHSriFgaTm SmZNX3SzO5NAW9aUQimM5 xaQjjqvfxwY4y Oyc+T09lpL0dYQA1TDF7v umrNXBzkqTkYE96IQ74W3 RyPjwvdGFibGU+PGRpdiB zsHqjHF0vFfKd i1vvp0PjGUieF6IdPMKxL EmaMcd4QRKnYPT7jRD8uG 0eWIYoESunv2G4uMQ4O3Z knbXoon3bh2tr MROmJAuaU40qtTKpr7Z8P QLkxPJ7MCIgcScaRiQivQ 93Oyc+JKYphXjwu6IoLgq hm7tvy6ptfKq4 DzWxQQWvrnOoiLstZOT8t 4VxQx52M46yHMsnASXzFO VtXCHrRMIfoByupp2kwU3 wIi8+PGNvbCB3 dNY3nO2tPDUyOzC0TRzcK 116AlYjyNZuUbshm8ied5 tsxHd0TxQmIYCluqFieUx wZJX5e8CfJi99 M07gAHkfTCCnJHLnPADmS DBrwFjizk4qsP4wPq0+PC 2qu7zhha51cS70dZG+PHR tCPK1aQylTEqo QRTfmC3zNGctEdT8UPXzM fCdlO30zBTlCZadNv0jzM azeXfySH9rBHPfbzuih93 2CbQhi7wpETHp jUFoBNkpTDK8V86zv2P9N NCgTFRaWNJ4cND5rH5gsZ lnbjogbGVmdDsgdmVydGl bVIdxAKrcV515 IHRvcDsnPlBhdGllbnQgT dYcWSi5D8DzFvg8YVJddD gePW6tkKHgQJbhVd4sfUw llCrmTE1rMYRw eptzk395BsWlz9ffDSFkd KFwIDlnDKZ7A50so7R1NT GrKMXnGAS3tBD7cO0cpNf nbjogbGVmdDsg wwIlgKqgQAonURljH350H HRvcDsnPkJpcnRoIERhdG F9FI94YL36yUGeb7K8qSQ 2W1NcLTChbbjj mvntdWT1HIBeKQXlzC90W n1gdOjpIw7wBLSsQLK8HF BjtLZyS7UiiU4vBbFhLTV gPRAtL7GaqQYw GLvdX574INiiHlS2NAQyg xQeO6CeGIXygUuiJgW3i1 I4Or0JN8Q3OZ47NR67oYA lz7D6eRN7H5Rm AAEqsgkrmfszsBM3DYJtB SKkpG87Qf4ukVzoBp2qAA BcCWN7QAKayEOiK8JovD8 yOiAjMDAwMDAw M8GvqLSiBPhhF989KCqdM uQ3GXIrlwOpX2KxOQDczF yiOgG3z9O1Eg1CXLr8AX9 2ZU72uBVtq1Q1 dAL2L2JqSBEzukesfjhgw AO5TSKxDLIjoD27Tp5euM evLb7lYORlMKQ8KSZsvSD gJ9QvlB5wZfUw JKFpRNAeW9PbgTWqYZmpS 145EQkcDeX2JLPzuwGcR2 XoYZPtaFxlOzO6r6B9Jw4 PVHJmEI23TFI5 uVM2BM56LV14R8JjGndfk GFibGU+PHRhYmxlIHdpZH RoPScxMDAlJyBzdHlsZT0 cWj3yHCQbUPYg zAnviFQbJuFzh5qnOBUbO BotFO4whKwkF5WjwSO2SR Egp1g7Sw15F50kA2SjmCV +AGAlvBT3iXB9 oE8eCfYpDzR7ZGhrM056O bYjqKRcUgrzn5qcy7bftK v9HyQ9DDEifsFheWlfQGO 1h1SzSj58H89b IHdpZHRoPSIxNSUiIHZhb Tfunv0lgG2bBf8+PGNvbC E6rXU1qQ4oNqHdGmK9HYl yG911NmFyxIJu Ofvsb4kjm2sqqNq9AxVqS VLndnJqmDveADC8u5LsDl 66R9PppGfha9BhFzi5gr2 1tLKsu4D6jZI6 J6BsPCOlumukyQFcdVkuT B4dQPXztuzsVYCsyB3qLP TmL7q3KyKuHaJ3CEycG4I lqxI0FAJamEPk BHnnFAT1F28jh4A3SZSkH XIpBUH1jHF6pF3gdAmpno ogbGVmdDsgdmVydGljYWw hWRnqY484ZKLt tRfoSLDkdQ2jMSZcjVIzp FzxPG9pJMCgmhqzNxGBUJ 8JIKWlJLsNJZSLTJZ1Q5D wCyh4MORmcIca YS3ucRJeYQlcZh3wiPgim YxbXB6kHLHwjemzPONndD 6uTEIvmFUexFseSW5eHIE pkgisx528DcAz YZI3RPOfgXZlG5RmfM1zM wGvOHNbORQmB0KdtMQzGJ aiP027ZCvaJyC1ZBUdvmF bO7IfXPRibJek IbR1t9G3Uz8hIG7qAG2dR OTrVP94ON27jNJus4I0pS E5Q1WiPAJpntwjqfhadUJ 4DEQqQNOhuR87 zJIpBAsdRb9jg6D9f152E JTeXFCqxZ84Jp9mjXthFD HtcVHMdX7iufzia4kbeeb gIzAwMDAwMDt0 KJs0DIFveXmoVaBzQAV5Q iS0YML1oBShgU6ocBkyxd hesL8mKbx+NjAgWWVhcnM 2U9IoDaq1GKYh eOcqOG6ucPPyEZvkDk3vg MrclUatWB5oEFTkdyxxTK UiqW9iUPSheAZitPzfNS8 iVGYgzsvlp949 UoOxWHM0XHCayALuM4Xel O8zHgIjZBHmHRGzS4MmbL LxZJpwG758OBcuAhV0UHD pjcJiC6AsBNRg jNjbEqJ7m2F9Rs8DQF4ot SQ7Q4RfEsq5VMPuvUbfQG 0ciEFtYXnqXs4vcCpcqXd sAE1aSDWnedoc AXWsyV6xNSMfmFGkeFuqE R9wIDZdgwwht422UhJvPR R9KFBwdIXxR8BnlQ9rBqM oWBRzEUBdW3Es cINmJYpkN332FCuiCkV0R NVbupBhT7WtJHIakYubSm K5j3U7Ku4LZQnzND5mjbN yRZ5qygZ5P5Qg PjwvdHI+PM51GGYnPD79s ELyeVHim1nyhGv4KzArMV VuHTS0wRzmTXbzd5NzQBS vX51upGGyj1S3 JHMupOqlyOYkGvQljOD3c S3vTCbtyjjyb1uylolqTx tug1knyh58bP10B46yOZr pZHRoPSIzMCUi YKGxxBwyor3gyW4xHq5+P CDnbXZ6oAR8yQ3lHuVxUu W2JOxlE974ZoBolMYlMuu lq9ddt6ninYk8 KnWuAHZblzCxiFqeSJU0h 2VlQq19O30vZCpkDWIfKL GqAUKoOGMqoGmgjw6bfY2 wIi8+JT3ne9zu xa59yW61rXE+KIIeWNX8o GkmDYneLWAisK3rWWxcDv F1OXDkDzPdoF73iMJpZKk jCh0jmRzaxVii DW7cRMSokqsse851MsHqk 4ozXQGzxLCdXNnyUWQ4P6 4op1P5YOZvKRYrYTR4yGV 4lR1okZedxpzk bGVmdDsgdmVydGljYWwtY MfuO121OPMklMjgJoBokX XcR6exxwSSEU4lGaxokJR +PIUfSXL6vScy JRwcBQWjhH5sQPKgM8m4Y kVjFzB4BFpuF1RpgnT4CS QatUDqKFVafQKJmJ8tsls dc2kqfitfPeUv XWDmSXk4PTm5AZRzeNjsD eRpCLF2UfP7RHD1xLEiwL 4paUxkkooadK1mKhy+Rkl OOjwvdGQ+PHRk QWM1uBpdZJzyBMQxyS6bC BXkH7e6PxVpRdX9MFlnC2 LvcyJ0PQJtaBFkLRYraSJ QrJ0ldajdq5nb tldrUrJnLKNxWQn5WNj4T OCtjKjtLqZoBYY9SdB2LT R6mUCunR2ziTtcbypuaZ4 wOyc+TVJOOjwv dGQ+MTClFJQ2uIahBCdyF EXgnM9lIBJlI8c7BnNuIm U8FMueD3RlpkG1IYKwbSM wDCVfmDMOzO7k gndbz6raysquCbNqPEReN Oy0SFp4UYHcbVvzQsNkAX M6MnH2EEM6kJWakD8pwBq wobhpoU5aUrx+ FOK0UPD1EY94BL03M0KlO jwvdGFibGU+PHRhYmxlIH dpZHRoPScxMDAlJyBzdHl eFF4cDm7eRQGe LWNv (more content not included)... Normal [facility] Consent for Treatmenton Consent for Treatment [id number]#1 .00CD:127 [facility] Consultation Noteon 07-11-20 Consultation Note Patient: ELISA GOMES Age: 62 years Sex: Female : 1960 Associated Diagnoses: None Author: Eddi Arana MD Subjective Chief complaint 07/11/2022 13:57 EST Lower back pain . 62-year-old female with a history of cervical stenosis status post anterior cervical fusion with Dr. Meza. The patient feels that she is doing moderately well with her neck. Her major complaint is of low back pain. It radiates to both legs posteriorly and into the left groin. Standing and walking exacerbate the pain. Sitting relieves it. Treatments have included a full course of physical therapy without benefit. Taking high-dose ibuprofen regularly for over 6 months without relief. The back pain has been ongoing for a couple of years and is just worsening over time. The pain rates as a 7/10 on the visual analog scale and is described as sharp and aching. First getting up in the morning can exacerbate her pain. Pain can wake from sleep as well. Denies red flag symptoms. Health Status Allergies: Allergic Reactions (All) Severity Not Documented Penicillin- Hives. Sulfa drugs- Hives. Tape- Rash. Current medications: (Selected) Prescriptions Prescribed tiZANidine 4 mg Tab: 4 mg = 1 tab(s), Oral, BID, PRN Spasm, to be used in the AM and afternoon if needed. She uses 8mg at night she already has, # 60 tab(s), Refills(s) 0, Pharmacy: [facility]/pharmacy #[id number], 166.8, cm, 10/11/21 14:46:00 EST, Height/Length Dosing, 84.8, kg, 03/0... Documented Medications Documented Fish Oil: 1,200 mg, Oral, Daily, Refill(s) 0, Prophylaxis Metoprolol succinate 100 mg ER Tablet: 100 mg, Oral, BID, High blood pressure Misc Medication: See Instructions, collagen powder 1 scoop daily Multivitamin, Therapeutic w/ Minerals: 1 tab(s), Oral, Daily, Prophylaxis Vitamin C 1000 mg oral tablet: 1,000 mg = 1 tab(s), Oral, Daily, Prophylaxis Vitamin D3 5000 intl units oral tab: 125 mcg = 1 tab(s), Oral, Daily, Refills(s) 0, Prophylaxis acyclovir 800 mg Tab: TAKE 1 TABLET BY MOUTH DAILY, Other (see comment) alprazolam 0.25 mg Tab: 0.25 mg = 1 tab(s), Oral, TID, PRN as needed for anxiety, TAKE 1/2 TO 1 TABLET BY MOUTH THREE TIMES DAILY NEEDED aspirin 81 mg Oral EC Tab: 81 mg = 1 tab(s), Oral, Daily, Blood Thinner biotin 1000 mcg oral tablet: 1,000 mcg = 1 tab(s), Oral, Daily, Prophylaxis fluticasone 0.05 mg/inh Nasal [place]: 1 spray(s), Nasal, Daily, Refill(s) 0, Allergy symptoms gabapentin 300 mg Cap: 300 mg = 1 cap(s), Oral, BID, TAKE 1 CAPSULE BY MOUTH TWICE DAILY, Pain ibuprofen 800 mg Tab: PRN as needed for pain, as needed, Refills(s) 0 lisinopril 40 mg Tab: 40 mg = 1 tab(s), Oral, Daily, High blood pressure metformin 500 mg oral tablet: 500 mg = 1 tab(s), Oral, BID, # 60 tab(s), Refills(s) 0 metformin 500 mg oral tablet: 500 mg = 1 tab(s), Oral, BID, Refills(s) 0, Blood glucose omeprazole: 40 mg, Daily, Refills(s) 0, Control of stomach acid pravastatin 20 mg Tab: 20 mg = 1 tab(s), Oral, Once a day (at bedtime), High cholesterol Problem list: All Problems Abdominal pain, RLQ / SNOMED CT 453937729 / Confirmed Anxiety / SNOMED CT 66317605 / Confirmed 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 BMI 31.0-31.9,adult / SNOMED CT 061511095 / Confirmed Change in bowel habits / SNOMED CT 079722806 / Confirmed Chronic cluster headache / SNOMED CT 238707474 / Confirmed Chronic gastritis / SNOMED CT 42865042 / Confirmed Chronic leg pain / SNOMED CT 893240126 / Confirmed Colon polyp / SNOMED CT 554709587 / Confirmed Diabetes / SNOMED CT 331216979 / Confirmed FHx: melanoma / SNOMED CT 2629679414 / Confirmed H/O: osteoarthritis / SNOMED CT 320702627 / Confirmed Herpes dermatitis / SNOMED CT 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 / Confirmed History of Helicobacter pylori infection / SNOMED CT 6338048269 / Confirmed Hyperlipemia / SNOMED CT 74370046 / Confirmed Hypertension / SNOMED CT 9896554239 / Confirmed Insomnia / SNOMED CT 507186887 / Confirmed Irregular heartbeat / SNOMED CT 586949694 / Confirmed Laxative abuse / SNOMED CT 130064304 / Confirmed Lumbar disc disease / SNOMED CT 2067008738 / Confirmed Lumbar radiculopathy / SNOMED CT 853231584 / Confirmed Migraines / SNOMED CT 66980166 / Confirmed Osteoporosis / SNOMED CT 749958281 / Confirmed Palpitations / SNOMED CT 055471466 / Confirmed Rectal bleeding / SNOMED CT 929498693 / Confirmed Vitamin D deficiency / SNOMED CT 78878539 / Confirmed Objective Vital Signs 07/11/2022 13:57 EST Peripheral Pulse Rate 77 bpm Respiratory Rate 16 br/min Systolic Blood Pressure 146 mmHg HI Diastolic Blood Pressure 76 mmHg Mean Arterial Pressure, Cuff 99 mmHg General: No acute distress. Alert and oriented x3. Well-nourished. Well-developed Musculoskeletal: Patient arises slowly from a seated position. There is distinct pain with lumbar facet loading as well as with flexion of the lumbar spine. Sacroiliac joints are nontender palpation bilaterally. Zenaida's test negative bilaterally. (more content not included)... Normal [facility] Comment on above: Result Comment: Elec tronically Signed By: Sumit MURILLO, Eddi Edwards\.br\Date and Time Signed: 07/11/22 14:43 EST HIPAA Forms Officeon 022 HIPAA Forms Office [id number]# 1.00CD:127 [facility] Legal Correspondence Officeo n 07-11-2022 Legal Correspondence Office [id number]# 1.00CD:127 [facility] Legal Correspondence Office [id number]# 1.00CD:127 [facility] Office/Clinic Note-Physician on 07-11-2022 Office/Clinic Note-Physician [id number]# 1.00CD:127 [facility] Patient Correspondenceon Patient Correspondence [id number]# 1.00CD:127 Normal [facility] Patient Correspondence [id number]# 1.00CD:127 Normal [facility] Patient Correspondence [id number]# 1.00CD:127 Normal [facility] Patient Correspondence [id number]# 1.00CD:127 Normal [facility] Patient Correspondence [id number]# 1.00CD:127 Normal [facility] Patient History Officeon Patient History Office [id number]# 1.00CD:127 Normal [facility] Patient History Office [id number]# 1.00CD:127 Normal [facility] PAP ACOG PANEL 2: 30 to 65on 07-06-2022 . . Normal [facility] Comment on above: Result Comment: Perf ormed at: WB Performed By: #### C BC #### [facility] [address] [place] [address] Dr. Jeffry Daniels Age Gdln ACOG Testing 30-65 Normal [facility] Comment on above: Performed By: #### C BC #### [facility] [address] [address] [address] Jeffry Daniels DIAGNOSIS: Comment Normal [facility] Comment on above: Result Comment: NEGA TIVE FOR INTRAEPITHELIAL LESION OR MALIGNANCY. Performed at: WB Performed By: #### C BC #### [facility] [address] [address] [address] Jeffry Daniels HPV Aptima Negative Normal Negative [facility] Comment on above: Result Comment: This nucleic acid amplification test detects fourteen high-risk HPV types (16,18,31,33,35,39,45,51,52,56,58,59,66,68) without differentiation. Performed at: =G Performed By: #### C BC #### [facility] [address] [address] [address] Jeffry Daniels HPV Genotype Reflex Comment Normal [facility] Comment on above: Result Comment: Crit eria not met, HPV Genotype not performed. Performed at: WB Performed By: #### C BC #### [facility] [address] [address] [address] Jeffry Daniels Methodology: Comment Normal [facility] Comment on above: Result Comment: This liquid based ThinPrep(R) pap test was screened with the use of an image guided system. Performed at: WB Performed By: #### C BC #### [facility] [address] [address] [address] Jeffry Daniels Note: Comment Normal [facility] Comment on above: Result Comment: The Pap smear is a screening test designed to aid in the detection of premalignant and malignant conditions of the uterine cervix. It is not a diagnostic procedure and should not be used as the sole means of detecting cervical cancer. Both false-positive and false-negative reports do occur. . Performed at: WB Performed By: #### C BC #### [facility] [address] [place] [address] Dr. Jeffry Daniels Performed by: Comment Normal [facility] Comment on above: Result Comment: Andra Alvarez, Safety Trainer (ASCP) Performed at: WB Performed By: #### C BC #### [facility] [address] [place] [address] Dr. Jeffry Daniels Specimen adequacy: Comment Normal [facility] Comment on above: Result Comment: Sati sfactory for evaluation. No endocervical cells are present. This is consistent with a history of hysterectomy. Performed at: WB Performed By: #### C BC #### [facility] [address] [place] [address] Dr. Jeffry Daniels MG MAMM SCREEN 3D DECLAN CADon 06-27-2022 MG MAMM SCREEN 3D DECLAN CAD Patient: ELISA GOMES Exam Date: 06/27/2022 : 1960 Gender:F Ordering : DR EMI FRIEDMAN . Admission #: [id number] Family : DR YASMINE DAMON . Order #: [id number] CLICK HERE TO VIEW EXAM RADIOLOGY REPORT PROCEDURE: MAMMOGRAM SCREENING 3D BILATERAL CAD COMPARISON: MG MAMM SCREEN 3D DECLAN CAD, 05/19/2021. MG MAMM SCREEN DECLAN W CAD, 05/17/2020. INDICATIONS: Screening mammography Calculator Name NCI Breast Cancer Risk Assessment Tool 5 Year Breast Cancer Risk 1.50% Lifetime Breast Cancer Risk 7.70% Personal Breast Cancer No Personal Ovarian Cancer No Treatments None Family Cancers None LOCATION: [facility] BREAST COMPOSITION: Almost entirely fatty. FINDINGS: DIAGNOSTIC CATEGORY 2--BENIGN FINDING: RIGHT BREAST: No significant suspicious finding. Scattered benign-appearing calcifications are present. No significant change has occurred. LEFT BREAST: No significant suspicious finding. Scattered benign-appearing calcifications are present. No significant change has occurred. RECOMMENDATIONS: ROUTINE MAMMOGRAM AND CLINICAL EVALUATION IN 12 MONTHS. PLEASE NOTE: A NORMAL MAMMOGRAM DOES NOT EXCLUDE THE POSSIBILITY OF BREAST CANCER. A CLINICALLY SUSPICIOUS PALPABLE LUMP SHOULD BE BIOPSIED. Dictated by: Franco Tompkins M.D. on 06/28/2022 at 12:11 Approved by: Franco Tompkins M.D. on 06/28/2022 at 12:18 Normal [facility] Coding Summary.on 06-26-2022 Coding Summary. CD:[id number] G h0bWw+PGhlYWQ+PM9EOIW wE64wjUPbeA2BA1eVQH9X GPEMKJLTGP1IZF4arTQ8P FdwO2TzdvZq TdwxwHUgIB95LQe9HRK2t AddIBheyN8srROcP0m1Tt FaFU08wJ61DSbxQOKeMxQ 3LjZpbjsgbWFy K0qoHaVnhQMrRmc+PHRhY mxlIHdpZHRoPScxMDAlJy HjvRjlNJ5nEx4nKKYcNTJ vbGxhcHNlOiBj g5wjTAWaPPlmJB9eeBopK 3MkqYB4LHOrd1j5Cc90qZ I+YTVfMLQ6eDhuMInyp59 5SrHyh2jaPSI7 mAEaLSkbCZC1H72nb0F8V PWlRMKmXRE3yWK5iX1roM dwetyuC7WijRYlKhS1IMH 0lTXyfM1azDrz jctubA8bBmi+E10JSO7NY MWFUJ0HBoz6G4DbEvgydC I+HT14IGOjIN23wFVlpMC od3nwnEz0YiDs SLBkLIW1mOqfHOakj1NeW CBqT26gyIOwq6O6VVOxuK gsjDPnReEniNJ1zH8cOCf zfkjei2uglydh Hlqzg7kxth71qM30L26pJ WgsLMIqEFW7AIQnXXYvbX wfon6sgS4pTh0+CQzah5t oc9vzuNu9NbXr FQGzjbYgiBomUWG5z1ZwB b61B4NwhTsrz8QiCqs0id 17kTOep3N1eQN7EOlfUHB ozG8rBNkrEvV1 KCIiNuGktS24nSOxRKlcG m6brJknpZllSP9aQVBylg ldCNOikQ4kUOKswPMvjOh kRX6bNQSobeyw d396YtQyXMS5DWEpyFRoX 8LamO6cBfMfIEQhJAGtJ0 RabFZhACtaZ087EDknLzZ 9RLUwomPdY9Ps KOGbpMyiUpJ6v0Q3Xq2Pb 6BogwybZCX2IFvsNOJzXn ZuNuHmZnA9I1YnTxe6TZS vcEjkNZ5dC0Dq LBMoxdtbovaxbNC3BZPbA QAfsG84rVEaNQnqEr6lf1 J8i434TYYpUTFnxR80Uy8 udDogMTBwdCBU iT2griait3effzvxUlLaD LCrMLa2BFl9YNAbmRssJt FlIMK3MmV3SMP4fMCznW2 dfFhklmsliM8c Oyc+I10ppN5rKLC6FNY3a qzhROMbllHeCQ38NK45M9 RyPjwvdGFibGU+PGRpdiB seNolTY4yZdAd w3ukk3OhHDifT9BdQXToL PlbNka5OODlNQO7aZH4uB 9wLQBtIPciu2O1jZZ1B3M dwjHvha1jt4is CUYjJVlyS28feVErb0W9N HIiwGO6JWLpkImuDiDmeS 93Oyc+MNTanGvop1XpOtr ee8qsa6xzcBq0 EuJzGOXhvtOplZksDVA5i 6YzWv50Y38pPYkrWGIrZO BmOUBuWKGrcMnlvx1txO9 wIi8+PGNvbCB3 bVS6aO1wVRFkAbU2YJfyC 582XlStrPPkArszm0csr8 zpnIr7NeDsGQQhovYruCu cRLK5w4JnCy47 U18jUVhxANQdCPMiOYVrD ZOabGubbs3ujW5uHu4+PC 0ch1izoe99hY23vSZ+PHR rDYX6jWtqTHek RDJqeX2eHGviUqO3LAUbI vDdoN81oRPtYMteEy6dzH eduDciBV1rTYCrpvpwd15 0FoHzh2xvSLDq sNSuSSsbYVB0K83oa8P9L BLvWGIhZZV9sQB3jT3usI lnbjogbGVmdDsgdmVydGl fIRrcRKwbF923 IHRvcDsnPlBhdGllbnQgT zVsKHz4W9IuSeb6IGErpE feJV8vjRIbJHvfTd4lrZq xmSoaRL6rWFHr iufiv724LzRbw7umLJEnb TJxHUwqODQ3R87jz5V9IO UtQIUuCSI8xLU6oL9weXj nbjogbGVmdDsg dbUbmSsqZTkpPEhdC641D HRvcDsnPkJpcnRoIERhdG J2UT00DU90xKXnj6N6uOJ 1J2NdLUYevpfq atvncAZ6AIYuYIPlkS94L s2trRggLv4sVFOcSUV5PO YkqGJcG1NfhQ6fDaZdYYO iXGNrZ5YdqBOk RSszY341IQpmWzW5XHZpu lFxH7YvNNSssTtaYuL6v8 S2Su5QY6F5DY60EE11uYN ns1X9tIV1U4Zs XKJsbvddnhhitMM8RCTpN FRgbF09Nb1evNhpZr7tAA ZrJKV4JZUtbDDzN2PykH2 yOiAjMDAwMDAw P7YekWIxJNohL778EOclW yW8RELlnoHoU0IfEIZniZ yoCyI7i3V0Ch4EBNf4XO3 2CZ16pUNjr5L2 zPV0Q0OcSTUpezyspmbza ZI4PDYwSWBbvF67Do8dpS wqDj6cRGHoUAY0DLRnnQM qF9DkmV5aInHy ALWuDNXkQ2OdfDSbHYkwI 312JVkjThJ1ZRCvpjQdH1 PzBZHnqKbwWhL8l2H4Bp0 ZZVIkBM43UJZ4 eEA0VT63TD79J7NrNkxef GFibGU+PHRhYmxlIHdpZH RoPScxMDAlJyBzdHlsZT0 dHy0rXHHwTBRe rZvpwPVoTdNrr9cdTPFwP PlsTQ7lxLveP7UvuGY6DO Puw8u9Kl68S16qR0LdwBT +NKIqjBV1xMF3 zQ9hNdZrYvT1ZJkoA804Y zCpfJBtRpruz6rij3sgpT b7TjP0ALQvjjFxfSqhBBD 3b0LoRo24N13n IHdpZHRoPSIxNSUiIHZhb Mupjx2jfY0zAd0+PGNvbC I1sYI5kC6eLcWlChV2UJf oF585EjYrgJNv Ttkbo9dpv6cfnTt8GuVcI NHqegEuhYchLOI2w4BaWe 51H0KjrIxfj7KfXos8hs5 8nSWgv2N2cMC8 C3RoZTYqljljtBJrnAaiH B2mDNTbatkiQHMajW8hSH NxZ7m2VdByJuP8JQvjC3N cfdT7QIZmkXYp SFqlIBA6W56um1B7VZMxH TIvMYB8sHN0gL9asCqhbf ogbGVmdDsgdmVydGljYWw tKFpzQ463NUYh pFyhRPIafM3kWTOamZGln CvrXM0hKNXhrbzjXlRGQB 7TLFHlFDiJZPICENX3S7I dWmv8GCAzlYoi DD7mxNJoTPkdSi4htCeba XfwWK7kQQJsmkaxTYVrsA 4qTJSthXBliArlAO2pBCY pqnptc441JjHe WHK4ZKTutOIqM5AosC0pZ gBcDMLqIGUrT4AwuWMhWF ycK460OHjdFnF3MKKgkwP hD1RcJNZviTxw HaS2o9J5Wy6qIZ8wWF6hJ EJeLZ13DJ47rOSmz1I5oR Q2J3BqZUHgsddhfmkeqFX 4WDXjHVOujT74 pBFtHZbsWe0pl6E5v567Y RDrMPXksH20Cj4qwDyoRN KeuTHYoM4fzyhot6utida gIzAwMDAwMDt0 UVn1XALelSkbCzPdWKH2Z uS0NBV5oRFpuK6yrOpgwh uryC7pKwi+NjAgWWVhcnM 7X3EmHzn8UNIx bRmvOY7gaOHoZLxoLh0mx NsbaIlxIY2pXDNtlxrsZA HkpD6nZFDnhUYvtIfiRI9 wZPBmayljd763 CyQqKBD8MQMmiMTwS8Kgf L7uXeRhDGHjYPFuA5DeqT JcKAhnN261XMyrFmP4BJZ endFoE7PhZGLe cCpvJgG0v9I8Wg3QFZ1ca ZX6A2OsSno1XZDxiPjtPW 0gdRPsOVveYo3ypYoldZe lRC5bJSIrbjlc XIMadE9iUDIdeXGnxKmpC D3pPVJosvsrw336LoRkUA X5GJLjaUCeN5DdwS4uUnL hHBRtLTAkX9Lx mSVnEOobF437FCmjExO5E QMqtcHhN7UfWDHyyEumFf X8v6T8Gf3FxMFlDPZkYO2 8NE92HW45D5Qi PjwvdGFibGU+PHRhYmxlI HdpZHRoPScxMDAlJyBzdH qyUS0jXi9qZGEpOAIanVb suXVmSnGwq5py GCAyGXvuFR4rfGdmJ3Xet YS0VDXih9p7Jz62R06qH9 JvdXA+WOHbzBO7oBC3gO8 rGwXxZjT5IVgf E346BsIelBCbLbqos9rln 8ytwSm1MaMkQITrmcBfaK hlPAO5m2VkGj00D76iVWa pZHRoPSIyMCUi WXTtiOivzt6raO6qEh5+P RFxuLL3hIC9wF6nNeFkKl Y1RBmcV595WmFlaYXsBnd cD92qM4XanUQ+ QIKoMgi3IHUajZevMX7tn CDlZBrjAm1uXXG9MxXpKp UmDQxiI5CdIKPzxhphvxq qdUG3DDDnLDLd bN82Mr3lkQlmMp9lWKOhT CE0EATrzLWqS4RmcR1kYo FgFAKjIMDfU7XwuVJcEKq zV737KBsaZxT4 QDMzydKyO1WcCEVznWfkW qK3t9M7Ip9SaOmebKXmRM 8qDuAzTUh0P9PpXam5XKP ftAxuOC9spMQy FDxjIh1ixJvlcGsjIJ3sZ KJprgzoi815JxJna8veMY IrhPDrKEtuMEJ5C84fx7B 3MHFoRKEhDJH8 lUU0xC1njOnnbwzznWAvi DsgdmVydGljYWwtYWxpZ2 35MAHogKueGyTASdg9U9Y qTuc4MYOcyLac NT3rvHGmELeuPq3ieKhdz GxkMP8gPICrqrfci255Ry Eqr9sdJVUwfIPnLVcgYOR 2L79xy0O2PXPf WPQiFWK7dCO7oF1faBbir jogbGVmdDsgdmVydGljYW slQSxrM135TXRvnRrmSi6 MYty9H6DcCvc3 AJWieCstJD4bqSGcRUzyA b4wgOcczYjbWS8kZLNjej vjz904GvRgn3erEKQmgIY qFIkzQPG2K79o t7N3DKStJDLvZJG9hPS5o D8fyKplltjqdGAfqEfoxy ZtsTwdVTqdIJatF673VZD vcDsnPlBheWVy OjwvdGQ+WP73fh91X4TmQ yafDen7QQQkAIC7oOA6sT 8fWXGvQHojy3U5tOC4O4H hgnDgfh8ix0bt YXBz (more content not included)... Normal [facility] Coding Summary.on 06-25-2022 Coding Summary. CD:[id number] G h0bWw+PGhlYWQ+UF0ZURX qI28aiRXhqW7BT3jGPZ9T ZLCSOQCXQK8RBW9ceSA3R VllA4MdzvMz QusahPPbJY23GBi9OHG4j PrjDEhbdH8tzAHrL8w2Mb RnOQ51lB51IXsaALAqLfK 3LjZpbjsgbWFy W9exWuMeyHUuLhv+PHRhY mxlIHdpZHRoPScxMDAlJy OfgYovWO6sVa0aLRZoIZT vbGxhcHNlOiBj s9jhSNPzPMcfIU8djIbwS 8BvpIQ2HPGyr0l8Ci69vX I+NTFiYXG8tNswEOldp93 9LmYes7nqPZA4 xHFaMXouXMC7Q14dk0B0I QAeFVDwIDZ5yGM6zO8xrR fxchtoX3OsvLFgUsE9QFY 3yUVpgC7mpYyu frnsnU4jZrt+P39FTT7MJ WXYJR9NMat8H0NhCyghxH I+PY19BIVcYD65pCEecHJ hk3odsFk0LqXx OPRbPTM4rIpdGMsph4FsS BYpE50fsTZpf9G2SEFhhA rjhXAqJhBrpVV3fI1oUOv fymerb8odsueo Lkxlt8fqvi43hF78C56lF JnmBSScVOP2GYTcLPLapS rtzk6ldD4gXu4+XDrxd2b ir8jwsGk5EqSd AXKwffJogPeqWSP7b6GfW q50H8AnvYpyx0UdSoi0ji 25zCZlr2A0jVT4JSkfUYY bmV4oOMxfUbE0 CHYeLeGbcM21fHZuFKayR n7hwCokiNtsUC6kBHJfot iiTWJvrV4dDMMypTGmlLy oQJ3bMGHwadeu p318JyShCCE0YXHirRBqN 9ZwqI1rUaMcMFXtMWOiP3 MquHGxSStuC825QRztJhJ 0MJPlfqHrO6Xy YZBqqWmyGdT5h6M7Lg1Ot 0RnhdrcYHC7ARccLOBdCn YeRzOvMdY2S0ZwSdz3EIU fvIfnQU5hZ1Nk MLQaghkwgwprpLW2PUFjG TCgsB48zVQnDNssWi3gd8 W3a686JKCtPLCvfO36Yt6 udDogMTBwdCBU fQ9avaiya9sfresiBvQzQ GQiYHy6QTd0EXWkkZqiHs PbPDE5KlF8QQH6mIUuvN7 loTfnyhzmnA4w Oyc+V83utZ1lRSC5MKV7u zmvXEWzblHwDQ82RK88Y8 RyPjwvdGFibGU+PGRpdiB aqBmbHF1dYoLj n5nny4QuENwvM2OoSWFjU YgtIzj3FWEnRTD5tOP8hH 2mDAXtPFfsr5T2dQV0X3O mxkIrfu8ad5us PUJjEZaoK19jkOYns3M5P YLpcSN2ZCYjnAohRbUnyK 93Oyc+CMDxtUsvz1HqLla kg3sud4ldtRp8 YePySHHclwPxvWohRLD0i 8OtNw86U31fPWamPAUzQL TpOXGdVJRldAhvet5ziF6 wIi8+PGNvbCB3 xDB4mF5zWOLvRgQ0QLffC 103JaNmmDWyCircf8bnh4 qyjFz2VaAhNMNnnuOehCf cEUE3g7AvEz42 S69eBFkyPHJvWHUoTMPzR BDxkIoxdq5xuS5gTf5+PC 0kf8bqiv39uE07jKM+PHR pIYQ7iAcdAVkq HQZouE1qGFwrRhA2TMSvZ kXdsZ16uLYrMFdvUo9waN suiNcjBW8sMPTitdbub48 3KcSto7wvUGRn uQKrNXtlVUC8C59ua4Y3H YBhBQPcFID3qEO5wS2txP lnbjogbGVmdDsgdmVydGl sJKakBZgpD643 IHRvcDsnPlBhdGllbnQgT gFqJAl5Y6PuSev5LVYgcG xzJI6sgUMhHQceKy9ixGj ewFneYC8wTKGa toabi681AvMdz8lhGWDdr RHuZCztHDF8X20oi8A0GH YhCEGeCYW8cJP7dW2bxJo nbjogbGVmdDsg ynIqrYkeCRrvKTtlG490E HRvcDsnPkJpcnRoIERhdG E0HU21CN96qDQzz1E6hBJ 3J3YlURDqamth yhimkYV0SMKkMNVbdX86W s7joIlnAc3sDJOvBFA6SF VnqOCwH7XpvT6cXkHuATQ vJXKwN7QepDJr PZvbN410YUaiAaH6MSHcq kGsF4IxPJOnoTkgXtD9x6 I5Pw3AS3E9YZ58MS44oMZ gf7I7mRM9C9Pk FPXvyiibbvkroLE7PJYeX VVuzJ09Jt8ujUeqDq0xGR QoRTQ4QSZsiJZvU8UprV8 yOiAjMDAwMDAw P5HmnWKxWSgtZ662GPycM oY1IZCiogFuL9WbYWBrfJ ynSdD9j6D2Xt4ZYWm8SI6 6KQ81jHAij6W2 cYM5W8GuWQQpigdkyefsb AL2MDTxCTWmqO44Zn7anB ywYj2bVTEeGOW4DDWdhHA pN1HkqD0aTcUu TNJhUNJcM3GnvMXiWUbrI 863PIddHfP9RLRxfvPmP1 UcDLXfhMmiFoC3s4K1Ag1 BIKNoNZ96BDC2 [id number] GFibGU+PHRhYmxlIHdpZH RoPScxMDAlJyBzdHlsZT0 lUh6sFFKxXIUe tInmsMIpOaQwg1kgLHCmC XaoBP2rvTnrB1AyrWS6DW Lhx4o4Vk13L79rH8VsjWX +YYFfyAO2jOE2 dQ8mBxJlXqY8SFabM378Q vNcsSYcAkxah3fwf7plgA c3BkU2OZHfgvIwdCuvWMZ 0y9ShNy66G94v IHdpZHRoPSIxNSUiIHZhb Mtymc6tmY1pKj4+PGNvbC I2hDZ8bH9rLwTnQdO5OIb iG941IvYwdVUp Fbfkl0xyn1eusNg9KuVwB OHhkeMllJfiUVQ1a4AtQq 32F3VtyRppl3EvNfe5jg0 0rAOpq5H3tHG2 Q0ZcNDKnloawnBBefQogP N8lMGOcmvqpLWFmvE0yMS NiE0l5ElScRaL3HPrjG9L uhgM9MSMijLDm JUxsJTG3E01ly1W0NWVqT XGsHNL2qRT5xA2fiWnmfj ogbGVmdDsgdmVydGljYWw dQUeqG646ZHXv uGcuIMQzsH1wMKTeiPNim FcyWV2bVXUnzfeeQdCBNL 8ZOTRnFPeKICHKPGT0W5B xVmw3PYGrqFce WI8khAFzPJznHa5rkYicm JjyOW7kOERyjyhjRRZbsM 2aGRTurTJzcGziSP3lKNZ azecwm338YlSv DZQ5NBHwnVVkD2GieD2tO cBaKWVoDQNeP5KclQIlDQ zpV006OWsmGqU2PYCdwjL kX9CgFBKfqSbx IkT8t4V3Mt7gLD5wRM5tL EZaQS16PW75mTOxv2M8oX G3Q3BaXVEdalnkccvdlXZ 5ASSbGSWupH29 oDEfHBsiHv8zv9T5u655X LFbDAGrdP81Nj2dwTggCA MxdRFZjC0wbfqlp0aevnq gIzAwMDAwMDt0 DYs4JAShfKkxHmOiPCF0T dB3FMZ1mTGnuA8epRdgne xeoF8hMsd+NjAgWWVhcnM 7S1XeJyl3OXIq hTwpTY4mvJAzMTiqHd0xk SfhqKajFX5nYFTmpnfmLZ DpyH2vQQRfqITexEuuKQ3 sICKlyatgj124 EmTlCCB1IFZzmJKsB6Uul K9mAyQvBTFiRJCqZ4MluQ XqNKmuH257AGuvVoZ8MSR dcnGrC9NiTUOb aOtfPsP4n1G8Rp5RLO0nl TI1S7DvMpk3WYItgBqzJM 5avCSxVHjxFq6acQxdwQe dDH0iQSScoftq AYPueK6wTIDzaRRodAmjJ I4oAEByngbca859TuHsDM W4KHUxwMWhL5YwqH6lPuY fBOPdWANlO6Ki nBZvXTklZ577AClpFvW3Q BJrnmSqE6CtUUDdhZfaDg M3z5K2Zr1NjYDkLIKfEE3 9QM23DO75T8Ro PjwvdGFibGU+PHRhYmxlI HdpZHRoPScxMDAlJyBzdH ebJS5qRr3uRDTsOKHhgUv wyZUcLiVkl2na YHYhFYjiQL7zqGezK0Scs WC7NGPnt0g3Ib62V23qL1 JvdXA+LFUfiHN6wWX4iX2 kFpPuOrO0FCad L206XwVgeUJjIxkhp7wdq 1lwqJv6PdZqXLVssaEdjX ijOAB3f5PaOw43N07lBSs pZHRoPSIyMCUi SPVnsCaxlt3bfT2rRf6+P JYgwPW2fFA8qV7lToRgUn G0MLacK423XlKstQCpNva lH80oR5NsePD+ XJZqUxy2KUIbaOtgBK0jf AMwRCzvAe8vPWM5ZlNgIq EwVFqbE9AnWEElgtfysck kePU7IQXcUAUy yZ77Ir1ntUnyMi2qKQSyP CD6CPCodPZpP0DsdT4xXb OdIZEvPISxX8YemNBqBEk yZ941ZYghBqS8 ZDFihtFwO7FlYZPidOoaX iP3w8U7Ke6OzLhkjTVnUP 9eIbQnMUp4T4SbZkw4ZOV bmWjnCV3tnCDe VGwdEb5zuPibgZmuAO3rE DYrcgwtw734TbDrd0cwPJ FjjZCwUIvxXKJ8A49qs9W 3IBEkLOUkYFX0 gED3vV2dyQdlzfstqOUcy DsgdmVydGljYWwtYWxpZ2 69CPGekVzhHuCUIkc2J4T iGqm0PAHytLch XQ2obHStTFdzZl9ioKvfl DcpCF1yKHFbhwnnl357Ls Chr1ekZWJjtBJjPPauFQF 3B39oy6R4RVDy NBEwIGH0iHA0aO3spZuzp jogbGVmdDsgdmVydGljYW ofOClgK074JHHrwHhbWe1 XRwf6T2GvOwy0 FDNgpSxvCE8zgZYaBAqaP l4xdJzeyEqoCS7aQLZdmq cuu606LkIpc4hpARYquCR gJKveIRT9A03b t2K2XGZfPUKnGHE0qGP8q N8kwGveynlijBKywHipst IvrKznQFwiNCyaY549YES vcDsnPlBheWVy OjwvdGQ+HI65ln91E4AxR aefQbe8EBSqURS2dKF5cP 3jFLUxXEsjm4E7gIJ8Y5W ztzMwvf2ks6wb YXBz (more content not included)... Normal [facility] Consent for Treatmenton 06-06 Consent for Treatment [id number]#1 .00CD:127 Normal [facility] Consent for Treatment [id number]# 1.00CD:127 Normal [facility] Consultation Noteon 06-20-20 Consultation Note Patient: ELISA GOMES Age: 62 years Sex: Female : 1960 Associated Diagnoses: None Author: Sophy Rush PA-C Subjective Chief complaint 06/20/2022 12:30 EST Lower back pain-aggravated from fall on 06-13-22. also having groin pain . Patient is a 62-year-old female. She presents today after getting a lumbar MRI. This was done 2 months ago but she failed to follow-up after because of some illnesses. She is here today to review this. She continues have lower back pain as well as popping and cracking. She states that this is very concerning. In regards to her neck she underwent previous C5-6 and C6-7 ACDF. This was done on 10/18/2021. She states that things were okay until recently when she suffered a fall. She states that on the eighth she tripped over a step. She fell at home. She states that it was a bad fall and the next day she had vertigo and nausea and vomiting. She did not go to the ED. She wanted to just await this appointment to see if we could tell her what happened but she has not had any imaging of the neck as she did not tell us about the fall. She rates her discomfort a 6/10 and hatch multiple areas on her visual analog scale. Health Status Allergies: Allergic Reactions (Selected) Severity Not Documented Penicillin- Hives. Sulfa drugs- Hives. Tape- Rash., Allergies (3) Active Reaction penicillin Hives sulfa drugs Hives Tape Rash Current medications: (Selected) Prescriptions Prescribed tiZANidine 4 mg Tab: 4 mg = 1 tab(s), Oral, BID, PRN Spasm, to be used in the AM and afternoon if needed. She uses 8mg at night she already has, # 60 tab(s), Refills(s) 0, Pharmacy: [facility]/pharmacy #[id number], 166.8, cm, 10/11/21 14:46:00 EST, Height/Length Dosing, 84.8, kg, 03/0... Documented Medications Documented Fish Oil: 1,200 mg, Oral, Daily, Refill(s) 0, Prophylaxis Metoprolol succinate 100 mg ER Tablet: 100 mg, Oral, BID, High blood pressure Multivitamin, Therapeutic w/ Minerals: 1 tab(s), Oral, Daily, Prophylaxis Vitamin C 1000 mg oral tablet: 1,000 mg = 1 tab(s), Oral, Daily, Prophylaxis Vitamin D3 5000 intl units oral tab: 125 mcg = 1 tab(s), Oral, Daily, Refills(s) 0, Prophylaxis acyclovir 800 mg Tab: TAKE 1 TABLET BY MOUTH DAILY, Other (see comment) alprazolam 0.25 mg Tab: 0.25 mg = 1 tab(s), Oral, TID, PRN as needed for anxiety, TAKE 1/2 TO 1 TABLET BY MOUTH THREE TIMES DAILY NEEDED aspirin 81 mg Oral EC Tab: 81 mg = 1 tab(s), Oral, Daily, Blood Thinner biotin 1000 mcg oral tablet: 1,000 mcg = 1 tab(s), Oral, Daily, Prophylaxis fluticasone 0.05 mg/inh Nasal [place]: 1 spray(s), Nasal, Daily, Refill(s) 0, Allergy symptoms gabapentin 300 mg Cap: 300 mg = 1 cap(s), Oral, BID, TAKE 1 CAPSULE BY MOUTH TWICE DAILY, Pain lisinopril 40 mg Tab: 40 mg = 1 tab(s), Oral, Daily, High blood pressure metformin 500 mg oral tablet: 500 mg = 1 tab(s), Oral, BID, # 60 tab(s), Refills(s) 0 metformin 500 mg oral tablet: 500 mg = 1 tab(s), Oral, BID, Refills(s) 0, Blood glucose omeprazole: 40 mg, Daily, Refills(s) 0, Control of stomach acid pravastatin 20 mg Tab: 20 mg = 1 tab(s), Oral, Once a day (at bedtime), High cholesterol Problem list: All Problems Palpitations / SNOMED CT 921038659 / Confirmed 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 Hypertension / SNOMED CT 5010937568 / Confirmed Anxiety / SNOMED CT 53011920 / Confirmed Lumbar disc disease / SNOMED CT 6684222607 / Confirmed Lumbar radiculopathy / SNOMED CT 095737133 / Confirmed Chronic gastritis / SNOMED CT 27180199 / Confirmed Migraines / SNOMED CT 03977839 / Confirmed Insomnia / SNOMED CT 914781356 / Confirmed Colon polyp / SNOMED CT 378648438 / Confirmed Chronic leg pain / SNOMED CT 973750807 / Confirmed Laxative abuse / SNOMED CT 422254030 / Confirmed Chronic cluster headache / SNOMED CT 952750647 / Confirmed Vitamin D deficiency / SNOMED CT 78219419 / Confirmed Hyperlipemia / SNOMED CT 85131530 / Confirmed Osteoporosis / SNOMED CT 153158477 / Confirmed 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 Resolved due to patient discharge. Resolved: Impaired skin integrity / SNOMED CT 24848223 Problem added on documentation of skin impairments. Resolved due to patient discharge. Resolved: FH: migraine headache / SNOMED CT 784388911 Resolved: FH: osteoporosis / SNOMED CT 8393191850 Objective Vital Signs 06/20/2022 12:30 EST Peripheral Pulse Rate 57 bpm LOW Respiratory Rate 12 br/min LOW Systolic Blood Pressure 133 mmHg Diastolic Blood Pressure 75 mmHg Mean Art (more content not included)... Normal [facility] Comment on above: Result Comment: Elec tronically Signed By: Sophy Rush PA-C\.br\Date and Time Signed: 06/20/22 12:52 EST\.br\Electronically Co-Signed By: Derick Meza MD\.br\Date and Time Co-Signed: 06/27/22 07:46 EST Office/Clinic Note-Physician on 06-20-2022 Office/Clinic Note-Physician [id number]#1 .00CD:127 Normal [facility] Physician Orderon 06-20-2022 Physician Order [id number]#1 .00CD:127 [facility] Physician Order [id number]#1 .00CD:127 [facility] Physician Order [id number]#1. 00CD:127 [facility] XR Spine Cervical 4 or 5 Vie wson 06-20-2022 XR Spine Cervical 4 or 5 Views Exam Date/Time: 06/20/2022 13:21 EST Reason for Exam: 298.1, m54.2, m47.816 Report IMPRESSION: POSTSURGICAL CHANGES. MINIMAL ANTEROLISTHESIS AT C2-3 AND C3-C4 MEASURING 2 TO 3 MM ON FLEXION LATERAL VIEW. CLINICAL HISTORY: 298.1, m54.2, m47.816 COMPARISON: 03/28/2022 FINDINGS: 4 views of the cervical spine demonstrate no evidence of acute fracture or subluxation. There is evidence of interbody fusion at C5-C6 and C6-7 with a metallic spacer prosthesis within the intervertebral disc spaces and screws extending into the vertebral bodies. There is anterolisthesis of C2 on C3 measuring 2 mm and C3 on C4 measuring 3 mm on flexion lateral view. Prevertebral soft tissues are unremarkable. FINAL REPORT Dictated: 06/20/2022 2:14 pm Aldo Coburn M.D. Signed (Electronic Signature): 06/20/2022 2:14 pm Signed by: Aldo Coburn M.D. Transcribed by: CAITY Technologist: COLT [facility] Coding Summary.on 05-09-2022 Coding Summary. CD:[id number] G h0bWw+PGhlYWQ+QF6ARXG yB21izQVbvS2XD2gOWY5T KFOIUPNWOB6HUW9rqMB2V IbxC0FexjJp WgxftYNlLM84AZt4ADV6c TuxOCrieT4lwPWpE9k0Jv UvDU43kA13DStzDKJwVtB 3LjZpbjsgbWFy N3hwOnRqnKNxRdv+PHRhY mxlIHdpZHRoPScxMDAlJy KhsRlgBH8zIg9yEBZjCDK vbGxhcHNlOiBj w3uyUVWaZInsTZ2ifDpzN 1BhxPF1JOMcj3d0Bb22yP I+JWYwSCW0fApqQNslc77 3ZeHcd3nbTIQ8 sIKeMSbgZAV8Z46qi1Z0X TLlEAWyMZL2zRM3yV5jkA uplykhM7NqvJYeSdH7UOO 4zDAinO5kiHws mdcqkC4hYne+H57DKQ1HI PCYTZ2NMnb0K1GrVpvzpH I+RR43SYUhUS02jBEbcAK an5gkkLg1GePp WPNaMSX3cUzhGRlkq0SwK EQmQ61fnQSeb9U8GLRnfD bbyGJnMeQvgJB0rM9wCHu nlbgus3aejtyx Gajly4wrkd05kF05H21hM JttFYUcESQ3RSLbIMJshS szdd4luT6fQk6+WClcd5k ui5lrhZj3BxIr GAIrwlLpeAynZPD7c6UsH p51U6TgpWnip7HaDlk6ai 58bBDbe6R6nAB2IGbkTKW umF6jKClcPvG9 KAVqJcHmjI66pWZhHHsyK p4tmNbvhAqiDQ0tHORitg osODKczM7iWOJsqGLhaCh eYK5iOPVzzgow u887ToRbNXC2ATSayXAdL 9UxfZ7kXmOjGNEhDFZrP8 JtzNBlKSpnU921YSwdOjF 7JIUniaIfP4Hf PZNvqSrtHhC7s5B1Bl8Ln 3FwitnfIPJ2UZowKQYsRy W7LcWiRtS7G0NyYfp8ISQ vwDhyWK3dC8Fu OOQaldwpinomrZF1ZEKkP IVboR95cJXiDWybGl0he6 N2o797XCUjOGLbpY15Ej9 udDogMTBwdCBU jC6avoofm9tpywyfKaNsA UPbSSw6CSh5DWTrkRqcKi AeEPV0ShA3VFF6cRAxxE0 orMzngnxitO9w Oyc+E34rwT7yPSK7AMS7o pfnLAUivcHkQW08KL69I7 RyPjwvdGFibGU+PGRpdiB loZywGN9uEvSp o5dky1GlTEqzQ9JvDROuQ BymKwg5OJCsKQO8iFZ8rG 4uKNFsGFudo8Y1wWF7E1E drmAzep7mc9ki ZLVjXEwfY64hoSXzw4P2D XBdlJR5XQJfsTqxBgStyS 93Oyc+AGOgaFmxr0ZwPkn vj9unm9ytzPa8 RtTbCJGvjxIibNynNVI9t 7ZnOs59Z79iLNykYWFvSA NpHNVqUOKrlUsfqe1flA7 wIi8+PGNvbCB3 pRN6rW7fMGNnImW4UMwxK 774YtGshRIhUplxl9gyw8 oktNr9MbLmBTKjbpAcuGw pPSS8f5IwXy28 S86vZNeyFCCeZAGwTMItD PSytApohm4omB5aCx3+PC 5ry6jize64pR60fCD+PHR xLJP3yCdaTLet YIDqhU6yLPpuTaS7DSQcG wBkcT57zGUhWThjCq6vcQ fqxJfyLC6nHKIgwiczh85 1ZqJga1nnDSIf tRBlPVeuLLA0L80cf5T1B FHsQFWbWYM4gMI0aD3zgL lnbjogbGVmdDsgdmVydGl qZRifFGwdT319 IHRvcDsnPlBhdGllbnQgT uAyWZc9D4GiEmp2LTBvkI jqDG4tjMJcZVsfAw7dkFp qrDwfHO2sNOUu nkyex333NaUxx9erOIMwl ETsWZjxRNL8D04im5A5GX GdTSUaWVK8wMR4zF2hjAp nbjogbGVmdDsg wlIlmMjhMVtiTDsaZ789W HRvcDsnPkJpcnRoIERhdG P5QB57SX86dPUtf3B0gOG 4V5UwEKMghhje tlraxVT3WZAiZKLncU02Z t6hmJomKe9mVMTmXMC0UI QmwEQqJ5WihD9jAqUiKNB cWXFhO2OkrUBx YYvtC256EQlmZvD6MFEew dFhR3KkRGXgbOfaEmX4k7 Z4Yq2UQ2E1NV73DW31lRG bx2S3aHM3E6Yi SOQjbsuqftrfwJK4BGIzX XXbiL57Ut9bwVqrYv9hHP KzEZD2CSFqiRNkC8GvcL3 yOiAjMDAwMDAw W4CosZHyJKlkR092XDklS uF7JPXvuwVqJ2PvBIPhdP kqFpE3z4L0Ei0AATw3LC7 1NH18bQFtc5D5 pOB3T3SjGVBlpfaezdgxs HS5UTEwSMByxY59Vd7jxS okHh4fFLXgRYM8OEQupVZ hQ3XmqQ7yIiEt SMYoULOuT6CxpYOjOHyiP 357QSutEpY1XSTzjyRqN8 CwNWOyjDvcRfI6z9A0Ga5 XMYQiSZ85QQV9 nFT9HD96XO79P5QtJgpmu GFibGU+PHRhYmxlIHdpZH RoPScxMDAlJyBzdHlsZT0 dGr5uLHDmSRBd oEjvoAEsZbMbe4bpISWsK JxcVM5dhNyjO9LyxDA8KC Mvx0o7Zq55D70mF8BleWK +OJLbnCL3eOF5 xC5vXyTjYoI9QMbmF932C eVcgOUgOpuxi7gxr6ivaE g4UrJ3NTKcobHreLnrLWP 6s0HlVv95E47z IHdpZHRoPSIxNSUiIHZhb Halht4kfS9qZx3+PGNvbC C7kAO6cW5dYiTnPgL1FOc yE653NeGrkYPh Fdpvo0wbk8ypfRr4EqZdW RMsvkGqzCouESD2u9GjRp 80V1QhnBiuw0EgQmc1jk8 9hTXfa9B6mNW2 R5KuGOTzxhhcaRRmyGtiJ Y4tNFMopcohAPUkgY3jTN PqX3r2DxUuGbP6CEwdQ9Z ileH2APGtvCCb POmqPNX5B17tv9S2UXElS WRrHTM6sDB9aO7vjZprwt ogbGVmdDsgdmVydGljYWw xBJdhR608SYEl vOdvSZOtuP4oTTLysAVzx HoeAX4kTIAigxukPyMBYT 2WOXWnGQeVZIIYLCY0K5M nXxg4QXZgnGhu DU6wuRKgNQwyWc0tnTpez PvdUP4aJPIoqivrZCBopA 2lSTFnlETzhMebEK0fUQS uvtkhm933DgJd QYU9OKXycMInP3AnmF8fS qLdXPBdXRDkR6KwmAFaFB tlV161RUbbIlN2AWQqonJ vT8GwRYEorSxq UaI2o7G7Yb1rSA6sTY2bM PKzIY19HD89yRJty0O6yJ H1X5SpCEBvkdnrisnexLO 2DPYrUDEqlD85 hIGuIEtoEa2gc0I3j976R GPrNIDxgS78Ip7bgNtkZP QznFCNdV6plhixy8ejuje gIzAwMDAwMDt0 FXp5ONOoyTvqWhHmPPL5T oL0XQP9nWTnrL4wvXvebm jucP3gDhb+NjAgWWVhcnM 2V3MzOqt8JEEz pNtnWE3ijKIhHHzfYx0jw LlwkJjfCD0mUPNojuetBL EoaE5dDTFnwIUkqIihET0 eEZMndrppz203 BnEnXUJ1TWVpwVHnI8Fip R2xUrVzIPNbFADgV6YgeP HlUCdwG453OMegGyO6WOE byzTkF8IkOCGr kTguSxQ5d4Q7Bm6HDP6yf MT6B9HcEge8DUEnaUbrOC 6snCHkZRdyBj7otMfhiHp mSV1oLWCcftho ACBszB1oTPIprDPtjFrhP R4uCQBerbhme392YlVdDT I1VHPywZXiI1MbgU5zYqT rXQIbDMXzJ8Bd sBOiKNtfN625ILxcXlD7T PTpzyMlT0SkYHEomZlkMz J9t5O6Te7RoLXtLNUaCW2 4GH65OZ16W8Ts PjwvdGFibGU+PHRhYmxlI HdpZHRoPScxMDAlJyBzdH xvLQ4aSq2wUOSlHAPkxPl aeTQbEcZpi7nw QTFkVEekRM6aaNjlP5Lzf SD9TOMcl0l3Ng07J86nD8 JvdXA+FGLqbHX5nQQ2pZ0 xToRuLsD7XIkx T967RhBpbRHlFsxot4xzr 7baeTg1KqFzVYJyhjXttI xlMRB5x3FiTt34Y25bOWt pZHRoPSIyMCUi HAJmxTsysl3kxG9kYa9+P YTffHC0jIG8mW4oGiNeJz D5DZocI745AuRmbYEeKbk jJ20pJ4HesFZ+ JAAtIza1EXDrhQqcLR9gu QLqSWbqUj8pMWQ9KwDvNy QuJIooR3CcFGZvokhnvfc qbKR3CHEfCMEc zD09By2rkBtxWd3rENViO NM9MSWhvGGoC3QvqW8qHd TvHLQbRPNjG2XndRDpTHh nN512LNtjIjA2 JGJvwdJdI5BmIWQznKqpT eL6c2Z6Lr6FhFxjaCXsPX 3qWlHoKEk4T5ElEui8NPI adTspSH8whQEt OVzxYr3rvFuymUhoQK6mU BShzrxwm357YcTln7xzWK VcmBMwINfxHYE6M23ul8E 3LAPiTFYgBCG5 pPQ7sR7mmIewedtepSYyp DsgdmVydGljYWwtYWxpZ2 27HAYuvSdnFsUYQio0R9N jZdz9LMWpyIks PQ1kfDIiTEckDw1xjExys ZskEA6hYDDodjyst631Vi Hnh8jgHTSkpCZdRJmdOYL 4U77ge1S9VCMp ZLVmNNP4cMP5lS8fgOcti jogbGVmdDsgdmVydGljYW mcTYthF660SMTwoPgzYf9 XSlg5M9HgNms3 LJOalRucVD0mdNDdGYtxO h6okQlsmGyrSW9bLWEbct pjj155BgJfu7ngMQXfyCW mQAfjVJX2X91e b3Z4FKAbTERuXCF5lXB6a H8hcFbuyfxpqOQgtJktjq BfnStbRBzeQCzwG688PFK vcDsnPlBheWVy OjwvdGQ+HQ79cj49R2CgM mmbFfn9UXXiJAP1jRF7eO 2tOCMxFMnxd2F4gBZ0E7L zrfSalj3vq3ce YXBz (more content not included)... Normal [facility] Consent for Treatmenton 04-07 Consent for Treatment [id number]#1 .00CD:[address] [facility] MRI Spine Lumbar w/o Contras ton 05-04-2022 MRI Spine Lumbar w/o Contrast Exam Date/Time: 05/04/2022 12:54 EDT Reason for Exam: M54.16 Report IMPRESSION: Multilevel degenerative changes lumbar spine as discussed, without high-grade canal or foraminal narrowing. EXAMINATION: MRI Spine Lumbar w/o Contrast HISTORY: M54.16 back injury December 2020. Bilateral leg pain and numbness. TECHNIQUE: Routine lumbosacral spine MR protocol without gadolinium. Contrast: None. COMPARISON: Radiographs 05/04/2022. RESULT: Counting reference: Lumbosacral junction. For the purposes of this report, L5-S1 is considered the last well-formed disc space. Alignment: Minimal levoscoliosis. Alignment otherwise near anatomic. Bone marrow signal/fracture: No evidence for acute or chronic fracture. No pathologic marrow infiltration. Patchy marrow signal, likely related to underlying decreased bone mineral density. Conus: The conus is within normal limits of signal intensity and morphology. Paraspinal soft tissues: Paraspinal soft tissues are within normal limits. T11-T12: Tiny annular fissure and disc bulge without significant canal or foraminal narrowing. T12-L1: Broad-based disc bulge. Endplate osteophytes. No significant canal or foraminal narrowing. L1-L2: Broad-based disc bulge. Endplate osteophytes. Facet degenerative changes. No significant canal or foraminal narrowing. L2-L3: Facet degenerative changes without significant canal or foraminal narrowing. L3-L4: Tiny disc bulge. Facet degenerative changes. No significant canal or foraminal narrowing. Report L4-L5: Tiny disc bulge. Extensive facet degenerative changes with facet joint effusions/synovitis. No significant canal or foraminal narrowing. L5-S1: Tiny disc bulge. Annular fissure. Facet degenerative changes with facet joint effusions/synovitis. Mild left foraminal narrowing without significant canal or right foraminal narrowing. Sacrum and iliac wings: The visualized sacrum and iliac wings are within normal limits. The presacral soft tissues are normal in appearance. FINAL REPORT Dictated: 05/04/2022 4:03 pm Luis Maya MD Signed (Electronic Signature): 05/04/2022 4:03 pm Signed by: Luis Maya MD Transcribed by: CAITY Technologist: BARBRA Technical Comments None Normal [facility] RAD - MRI Screening Formon 0 05-04-2022 RAD - MRI Screening Form [id number]#1 .00CD:127 Normal [facility] Insurance Correspondence Off iceon 04-27-2022 Insurance Correspondence Office [id number]# 2.00CD:127 Normal [facility] Physician Orderon 04-27-2022 Physician Order [id number]#1 .00CD:127 [facility] Physician Order [id number]# 1.00CD:127 Normal [facility] ECHOCARDIO M/2D COMPLETEon 0 04-20-2022 ECHOCARDIO M/2D COMPLETE Patient: ELISA GOMES Exam Date: 04/20/2022 : 1960 Gender:F Ordering : DR EMI FRIEDMAN . Admission #: [id number] Family : Order #: [id number] CLICK HERE TO VIEW EXAM ECHOCARDIOGRAM REPORT PROCEDURE: CARDIO PULMONARY ECHOCARDIO M/2D COMP INDICATIONS: Palpitations, shortness of breath, hypertension, diabetes COMPARISON: None. DESCRIPTION: COMPLETE ECHOCARDIOGRAM Real-time transthoracic echocardiography with 2D, M-mode, spectral and color flow Doppler performed. QUALITY: Technical quality was good. LEFT VENTRICLE: Normal chamber size. Mild concentric left ventricular hypertrophy. Normal systolic function. LV EF: Normal left ventricular ejection fraction, (>55%). DIASTOLIC: Normal diastolic function. ATRIAL SEPTUM: Visually appears intact. LEFT ATRIUM: Normal chamber size. RIGHT ATRIUM: Normal chamber size. RIGHT VENTRICLE: Normal chamber size. Normal right ventricular systolic function. TRICUSPID VALVE: Normal mobility and thickness. No stenosis with no regurgitation. MITRAL VALVE: Normal mobility and thickness. No evidence of mitral valve stenosis. Mild mitral annular calcification. No mitral regurgitation. AORTIC VALVE: Normal trileaflet appearance. No visible sclerosis. Normal leaflet mobility. No evidence of aortic valve stenosis. No aortic regurgitation. AORTIC ROOT: Normal diameter and appearance. Ascending aorta is normal in size. PULMONIC VALVE: Not well visualized. No stenosis. Trivial regurgitation. PERICARDIUM: No evidence of pericardial effusion. IVC: Collapses with inspirations. PLEURA: CONCLUSION: 1. Mild concentric left ventricular hypertrophy. Normal LV systolic function. LV ejection fraction is 60%. 2. Normal right ventricular systolic function. 3. Normal diastolic function. 4. No significant valvular dysfunction. 5. No pericardial effusion. Adult Echocardiography Procedure Report Left Ventricle Left Atrium Mitral Valve Right Ventricle Aorta Aortic Valve Tricuspid Valve Pulmonic Valve Right Atrium Dictated by: Gregg Reyes M.D. on 04/21/2022 at 19:35 Approved by: Gregg Reyes M.D. on 04/21/2022 at 19:38 [facility] ABD AORTA SCREENINGon ABD AORTA SCREENING EXAM: US ABD AORTA SCREENING HISTORY: Vascular calcification. TECHNIQUE: Ultrasound was performed of the abdominal aorta. COMPARISON: None. FINDINGS: AORTA: Moderate plaque throughout aorta and iliac arteries. Maximum diameter of aorta is 2.9 cm. Maximum diameter of the iliac arteries is 1.4 cm bilaterally. OTHER: Negative. IMPRESSION: 1. Moderate atherosclerotic disease of the aorta and iliac arteries. 2. No aneurysm. Electronically authenticated by: FRANCO TOMPKINS Date: 2022-04-20 11:04 Normal [facility] Outside Records Officeon Outside Records Office [id number]# 1.00CD:127 Normal [facility] Progress Note-Physicianon Progress Note-Physician To whom it may concern: Patient has been evaluated for lower back and leg pain. But also popping and cracking. She has done PT in the past with no relief and she continues to do a HEP 3 x a week without detention relief. She has used OTC meds, anti inflammatory meds and muscle relaxers without relief Due to all of these reasons I am writing to have you reconsider the Lumbar MRI for possible surgical interventions vs referral to pain management for injections, Thank you Sophy Rush PA-C, MPAS Normal [facility] Comment on above: Result Comment: Elec tronically Signed By: Adri GILL, Sophy\.br\Date and Time Signed: 04/18/22 13:50 EDT Outside Records Officeon Outside Records Office [id number]# 1.00CD:127 Normal [facility] Insurance Correspondence Off iceon 04-11-2022 Insurance Correspondence Office [id number]# 2.00CD:127 Normal [facility] CULTURE URINEon 04-06-2022 CULTURE URINE Isolate 1 Escherichia coli >100,000 cfu/mL of ORGANISM 1 Escherichia coli ANTIBIOTIC M.I.C RX STATUS Ampicillin 4 S F Ampicillin/Sulbactam <=2 S F Piperacillin/Tazobact am <=4 S F Cefazolin <=4 S F Ceftazidime <=1 S F Ceftriaxone <=1 S F Ertapenem <=0.5 S F Imipenem <=0.25 S F Amikacin <=2 S F Gentamicin <=1 S F Tobramycin <=1 S F Ciprofloxacin <=0.25 S F Levofloxacin <=0.12 S F Nitrofurantoin <=16 S F Trimethoprim/Sulfamet hoxazole <=20 S F Normal [facility] Comment on above: Performed By: #### U RCX #### [facility] [address] [place] [address] Dr. Jeffry Daniels Coding Summary.on 04-04-2022 Coding Summary. CD:[id number] G h0bWw+PGhlYWQ+LU3WEZI lL76yyMPmwS5PE0xHIT5I YOOBLAVXCV3UGN2bpFM7V NqnU3IxciDh UxfodTRyCI55PZn3NKZ8p JjbQAaqiK4jaBBzB3f8Am VnFM98xC23GRftEPTcHxN 3LjZpbjsgbWFy C7wwZpQueYCoTzb+PHRhY mxlIHdpZHRoPScxMDAlJy AntHlqTE8yFg2lXULhQLE vbGxhcHNlOiBj j9inDYXsFLxqUK4cdIffK 9XztIK9AMUru1a9Oi17jH I+JQAvHLS0dLdqVJihk41 3AaZqj8qdHZI7 mSIcNFcfTTZ0H21oe0B4B BCeKDGpZVW7wJT5yH7zgE mtsrpkR6UmlVMbXfT2KOS 8dEBmmJ3fiHld zzwhpD7rXuh+L26XIN3GH KOKFA8MGip4U6MoSsgjwB I+TK92WRVlNN85cFJgkTY ku0xotCu2NnNv KNAxLCE4nKccIBuqr9VtF XRfZ07toOWqa4A5BJEblL peuUVcSiDoeCA3fN3lOQj lpdofw0ndeipi Klppg9lblc88oX46T07hU XlkVMIfMRI5AIBcGQYphV exto0ljX9cEt8+WAuiq3c vg1iyqTc0RkQf OBSyyvPzuMkxRSK2p0FaF b34K3YvnQzmd3FkFaq7tz 78dXOgv5A9vOW2LBkqXCA ipX2oDDhoPoH6 LOAyWwZtsJ07pRNkVLocC h4nlDcuzCogVZ2gRDAwyh zfNMKnfE0qXUQldLUikEi iIP5eNBTwldsa l969FqPuYXX6FFZjtZGgW 4RvaV1xAeTmSTDqDPUnO4 SatIWtWWgjL289SOvgUbI 4KOEboeSmS6Ky JFGnhRygIeC4o2L5Rp6Pz 8DcsfinFSA3SCnrUVS7Be NiQmZsZrP3Q6KtOdr2AUD vrGolAC8nV0Vk YWKcqucxickgvMI3SIEjD QKwyB07cTXwPScpSc5gj2 D6h518TGOxFTZkyX23Bw6 udDogMTBwdCBU xJ0xqdcqw3ewogsoZdNlF ZNgIOx8ERp1GJKrtHzyDg MoGPU9DaP3RBH6rBWjeF9 usWerobmfvT3a Oyc+O13anQ6uHJR8DXX0b tyuWDFgqeVmKW25KW86S5 RyPjwvdGFibGU+PGRpdiB njWorOI3qTdPb q3szm0OyBEvyS5XcUNMgW WgdMqi0VGHsJGA9kJY1eQ 1qMUKpFPrbl1V4fZQ4G9U ryyNwes1lv3wo JCRpTIbzG60nyLDvd1B1J ESfsBL7AJFjlAvnAfBueN 93Oyc+VUJkyMhtm8YjTrm vo0wmw4vflEb0 EcChERNaouOllJidBTE2p 8OoDy44J68uNTweUOAeUS XjPPJiLXAbtVvisx6sxW6 wIi8+PGNvbCB3 dSQ2kO4kKAVoDxP5ZCteU 663MjWqyYQyOgcqe8tup7 bnkSo8VnFhOECweiAsxFr pJCK7a1PsRn49 Z88uMXrjWDLjUHAoDCGnX QZikAdvmt2wpU7xBc6+PC 1sc5tthh37cA95tSN+PHR gTXZ8iMgtAFeh UKHtvQ0wVXgaOlW2ECRrK oSojR42pLFuTIgtFn1fjI mtfWczSR6tNTJcxhbuk04 8WiOmm6xkNYGf dRCqLIvwROX0S35rg6C1H FEhNVEuGGC2yBB3mI6jeC lnbjogbGVmdDsgdmVydGl tCXasRVhhL866 IHRvcDsnPlBhdGllbnQgT vAdYKt4D6NvVkg8WBDhmN ofZE5vtXKqXQloIj6yiDt muVqqVE5oYWKm gjvcd579BlBlu8ogAHVdo ZPsTRzoQET1O83qj6G6IS FgVNJyBBG7oGE5xG8duMb nbjogbGVmdDsg myDyeZbcGLvwFRcyT809R HRvcDsnPkJpcnRoIERhdG U5XU81HN54gDXmm6Q4iEJ 0A3AlRLYadprz ukwdmWL9HKNqBPJofM68H j5apUxbRn6cHOFeRQQ9ZL DklHMtQ1YpgW4rYsPbCFE cITYyD1KrxVNs KPgsO272LRbhToM6UTLsr wDjZ4WfSTBmdHdrSoT8w2 B4Fs4TO5L3KF57WE88gGN cu8Q6qZP0K4Tb KJPritzxewpjpLA3QNVsL MSrlD43Li2duTbnTn2pXO TuDFZ4SGOvbRQwO2XzbV9 yOiAjMDAwMDAw Y3CqlWFxRVqpT405QHscE uX4RXPvdpDfC8KjJSIggL ojFoY3o5Z1Hw5GRKg5LY5 8GK47nYAet6W7 mZD9H7IbZSZxqkegrdlmk DX3IUVhHOCslJ03Wy3kwZ bwZc3aLNUmFXF1XFSnyYS iT5EaqL2lIiHn ULZcFTJpR5AyaPWaFGvqR 196KUezDrC2UOZpbjUtC6 KfTXSijJmjHcY5t2K7Jq6 LNPQwXH36QCG7 gGF1KO08IB70Z5GlMtdgi GFibGU+PHRhYmxlIHdpZH RoPScxMDAlJyBzdHlsZT0 wJl4mHOKwEUEn kGmdsFDeTeKhw6jyTOOrS RbzIO5faFbsW5GmhWZ4FM Plj7o2Ou12K62gB3AbqYV +IOEwbLX6kHO3 yF9cYlApLhW9RWozF598I oUwiHExKybkn3tta0eznZ t1JbW2RXKqorRdqHwbCPV 9u6ZkZv24M27b IHdpZHRoPSIxNSUiIHZhb Khfop0cyJ2xMp6+PGNvbC K4rOJ4lB3tVpLvQcJ5ZKz tW582KpTpzARm Mbclp2xbb6ogfVk0KiFbC TDdzwSnoVuqWER5i6LzFj 81K4FfeJisi0TjCwv3mj3 8bIVzz4D5dCB2 F2NuYTCdfacdgEKtvQeoQ S3hCLJxmumbOIRrxF5mQD OqC6e1ApAfMcM4DMtmP3K utwN0CXUnyMRu PZecCMH1Q79xk8G7GRJoB CShLMB2eMV4pH8ghQezhm ogbGVmdDsgdmVydGljYWw vWBfuX765GTYa vRrrHOFywH8vDJMunREbd AqqBF7sJPVlclfxUnUKUL 6BSCCuOKzDIHUCMTH3J0Z mWjt3HLKzqHda VQ4kxSWiHKoyRj0pvXlub MzlPW2wUMRmsjfwGRDhvS 1hAKXbiZJowEqdAI4sUGI eeklvk474FtOq DID0LFXimHQxF7ObqJ1oL xJnKTBwWYWrR7YfyPKeEW fcB257ZPlqTuQ6PCKfzlB iP0NmBWPdzCei UlF1n2T1Tx9dCD0oCQ1vN DPqHV89JP26uMWiv1X3rT U0N3CeMTCihexisqnuhHK 5VLBlVXYqcS48 nFIsTMboRv8yw5M6f480C TRcLAVttH00Vr7mnJkqKC PrdSDPuK2lcswqt6argbj gIzAwMDAwMDt0 VUs1TXDneZeiDgIrXPE4O aA9YHL8vNIzkW3dzSbnsa mzxI2tNul+NjAgWWVhcnM 0B2HlRvc0ORUp dUqeAO0mbKDkZRejGs2yg JfgoGtmFX5qFJQxwufnED GfyG5mWBLcnOVuqDvoUD5 uBYDfooeco409 FxGsOGT7SJRpbEVgS6Ibd P5iFnVjRTUzPDPgZ9XmfU IsMCxnR215DLmuVeU8LND yhsWqG6CxASKh eCtfGyO4t9S4Mn5GUY2je CQ0M7RqYlv4VLHjoBysTN 8kmPUeGIjeQv8jaYhceRp jXW9uAGKzwdhu NUCizZ6aGLRrlIFyuEzfM V9oBXZmskruy292UbAySH T2SUEnfPWeO4UyvB3eLnI uPFEtZIXnE5Uy oLJyURivZ297PHhpZlZ8C TPsfnTaC9MqKKHqcOzwXu C2p6V0Jw1DzHQmMRLtEZ2 9DM84QZ57S9Xj PjwvdGFibGU+PHRhYmxlI HdpZHRoPScxMDAlJyBzdH vuGY2nXg4xYDFeFXWciVd qlLIcHmYjx8lr MKDxDIprAS5koNagW7Umk JH0QCWwq0b2Eg90L72lS5 JvdXA+GFHzsFG1hSD0fO7 hPjGkWkR9SKnr W382OoVnqQBoQfsvt9lpc 5puvAq4YaFzTXXtjfKqaO eyZJI9n0TkTn25X26oVTj pZHRoPSIyMCUi FFFmgKuped8brK5jXt0+P UYkbJK5mFN0jI9fDpIcUp E8SJzbA876AdUphXRnBqw tI92xU4BxtIS+ VKJrMtj2AIHacOzyST4di VIfWKgrJh1zOKD5XxYkNg TtLJwbM7AlMUJqrnzcjyi hhXU5WXUqEXRs yL28Ov0vxYtwVx1ySFVvS DK4ZRYqbKWmA7EkxC2fHs KcOBInJXBxC9XnvWOtRHe vE167ALhzTaI8 QWWkxyBrQ6MeQOOaeAegT oX4c1F5Ih1RhPnxvWUoGG 0kBeViASd4J9CnWrl4TFU miQehER5jsOQi QHghWn9fkRktnAelBS6aD LYturxdl203YuXjx6moEE MvaTNqTFfxJVH9O31rf7L 7NXIwYLZmODO9 lPP7dS4haBkouycczDAnr DsgdmVydGljYWwtYWxpZ2 00UTUwuBagFmSQIhb6E9H vIdv1GUJmvYgz RF9wxIYsYNbhQd7bgLjbg RkbOX2uNTFrpxpxl877Ro Rfs8xoHPYchQUvFAwkDEW 2W55bq2H5EWPv GYOoYXJ5jHM8pR5mzYjsj jogbGVmdDsgdmVydGljYW gaJLfoF860DYRipSdqDc3 HNow5B8VcIpb6 GAOcnSsoXC2uyFYoTImoY h1zjPkedKqbYH9eUAJpeh nst563VrStr3mbCXMlvIE yIZnfSXD3A14a g9K3IOYvCKYjXTS6yXL3h D1oyPbsijphvUUscEjmaa VixNgtGXaeGKlsI342MHP vcDsnPlBheWVy OjwvdGQ+IQ93xx76H0AvZ qcqMhj5GOWxHDF0pBI5aL 1vFSBsRYwku9S3oYB0L8U uyqEekv0ob1er YXBz (more content not included)... Normal [facility] UA RANDOM W/MICROSCOPICon BACTERIA NONE SEEN Normal NONE SEEN The [facility] Comment on above: Performed By: #### U AMIC #### [facility] [address] [place] [address] Dr. Jeffry Daniels Bilirubin Ql (U) Negative Normal NEGATIVE The [facility] Comment on above: Performed By: #### U AMIC #### [facility] [address] [address] [address] Jeffry Daniels CAST NONE SEEN Normal NONE SEEN The [facility] Comment on above: Performed By: #### U AMIC #### [facility] [address] [address] [address] Jeffry Daniels Clarity (U) CLEAR Normal CLEAR [facility] Comment on above: Performed By: #### U AMIC #### [facility] [address] [address] [address] Jeffry Daniels Color (U) YELLOW Normal YELLOW [facility] Comment on above: Performed By: #### U AMIC #### [facility] [address] [place] [address] Dr. Jeffry Daniels Crystals LM Nom (Urine sed) NONE SEEN Normal NONE SEEN [facility] Comment on above: Performed By: #### U AMIC #### [facility] [address] [address] [address] Jeffry Daniels Epithelial cells LM Ql (Urine sed) NONE SEEN Normal NONE SEEN /RARE [facility] Comment on above: Performed By: #### U AMIC #### [facility] [address] [address] [address] Jeffry Daniels Glucose Ql (U) Negative Normal NEGATIVE The [facility] Comment on above: Performed By: #### U AMIC #### [facility] [address] [address] [address] Jeffry Daniels Hemoglobin Ql (U) SMALL Abnormal NEGATIVE The [facility] Comment on above: Performed By: #### U AMIC #### [facility] [address] [address] [address] Jeffry Daniels Ketones Ql (U) Negative Normal NEGATIVE The [facility] Comment on above: Performed By: #### U AMIC #### [facility] [address] [address] [address] Jeffry Daniels LEUKOCYTES SMALL Abnormal NEGATIVE [facility] Comment on above: Performed By: #### U AMIC #### [facility] [address] [address] [address] Jeffry Daniels MUCOUS NONE SEEN Normal NONE SEEN [facility] Comment on above: Performed By: #### U AMIC #### [facility] [address] [address] [address] Jeffry Daniels Nitrite Ql (U) Positive Abnormal NEGATIVE [facility] Comment on above: Performed By: #### U AMIC #### [facility] [address] [address] [address] Jeffry Daniels pH (U) 6.0 [pH] Normal 5-9 [facility] Comment on above: Performed By: #### U AMIC #### [facility] [address] [place] [address] Dr. Jeffry Daniels RBC 0-2 Normal 0-2 [facility] Comment on above: Performed By: #### U AMIC #### [facility] [address] [place] [address] Dr. Jeffry Daniels SPEC GRAVITY 1.025 Normal 1.005-<=1.025 [facility] Comment on above: Performed By: #### U AMIC #### [facility] [address] [address] [address] Jeffry Daniels UA PROTEIN Negative Normal NEGATIVE/ TRACE [facility] Comment on above: Performed By: #### U AMIC #### [facility] [address] [place] [address] Dr. Jeffry Daniels Urobilinogen Qn (U) 0.2 {Daysi'U}/dL Normal 0.2 - 1. 0 [facility] Comment on above: Performed By: #### U AMIC #### [facility] [address] [place] [address] Dr. Jeffry Daniels WBC 2-5 Abnormal NONE SEEN The [facility] Comment on above: Performed By: #### U AMIC #### [facility] [address] [place] [address] Dr. Jeffry Daniels Coding Summary.on 03-31-2022 Coding Summary. CD:[id number] G h0bWw+PGhlYWQ+AJ8WMNL lG12dqGBzkM7GO2gISA9O GCQEKDPPOE5VKF4woCL9H WqgH9QjhpOl ZxohoHWwOH82AKy7HUW5a EyyKOrinC3rfWQsH7j4Yn DnRR54tF25LHrkCTDoJlD 3LjZpbjsgbWFy D5xoMjTynEUcRvk+PHRhY mxlIHdpZHRoPScxMDAlJy IbtHgcIH2nZc1tJTIlKVM vbGxhcHNlOiBj f8dsOQNkUUlhZW4fjWqyP 7PbuMT7QAOoh4i9Lt60jT I+MSTvPSA4rXsrGVfif54 6SnNiv1gdWWD7 nRZgYCchRIP8C50ak2C5X TBmRQTtGCJ5wWD3aP9quE xgmyrtH7TgxEHoCzO0MSC 4cAAxmY5uvDwq yngvjS3oZnz+Q66XBJ8FW XHBMG6QTku9K6HlGoypqC I+NC63ZEMoKF68qEKinVS bk0eozKi1CbKk AYHsYQT7dJmmRFhgi3QyT GWbT03nmVCma8U5ZQNrxX wwcBJrLoQzmXN5aW9qNWi bqawtn0ammwxo Ylley3ndqs61uO01T31jZ WfoYIQpXBF5JPGuFHQhtI tucv9xxZ3lVd0+IZgzw5m ly0osfWe1TmZh ZLEirmCrfNcnHFP3u5ToY l39O9VfwMjfh6FhIzo3xw 58zCSsr6K1kPM4UUssAEM gzX6mUMzhXrZ9 YRCdTaVprC47wXXiXHcgB u4bgXtvfSqaJV2rKWYfwz mcZISbzY9aURSdxRCloLe sOF7wJIRbtarb v016VuPsMIR4VOBneXExM 2LleF2lFrLhIFMpGJCnW0 AftYLkNPnqI606MNztLbW 3YTRcsaHaN4La YSVofUbeWfS5r2O7Kx2Oj 9EycazlCRA9KArzOZO3Jj W5PcMzTqH9M8NsDuj5GJD biHuvDY5fD2Kg XWYlehrbrrbphZY3ZILqF GKyzI41sVIfRKqoDk3cl5 V8e137QSJdCZRxmG64Gl9 udDogMTBwdCBU vV0evkhem8bsephqQqPjO ZAgNPa3QOx4NRVvyUpbTr NoSLB5EmP4WPI9fHSqqN8 ttHdsjtsuyB9r Oyc+L98nxU2xUOS7FEJ0p mkoEYRgttPtAH11KI32F3 RyPjwvdGFibGU+PGRpdiB ajPdnFJ8nMgIf w9vxg6WaIWklU2JzFJEvA RqsDfh6ARXkIQD4sAA4oX 0dQIQpWKvmb3B9zDR1E8Q bqnIwqn1mb7tj QDQkPDotQ46vfJDyk3O3L EPqoBN0GFFriYgsCqYeiT 93Oyc+MOWxjIsqn1GtEju rc3ccx2ncgOr5 FdTxWDMexlBvsIsjXIZ1y 1NjWm68Q87mKMqjBDQyXP DhKQDfDNUobRhrnv8paB5 wIi8+PGNvbCB3 kFB1xZ3vLGMmKaK1YDrzY 347FaKkbIBuZhfns0huf1 dxvBf1KiTvYYVsztXewZl vBCE5y9DmLp91 I14xIVhbDCUmKMNkXBTwB MYqgJbysp0kgA9iWx6+PC 2dm6gvdv47fS73dWF+PHR oAZN0gQhhCZvv MQCubF6uEUakBbF8ZUTyC bAmyH59eBRjDKglBj1wlV xrnLubPV5vQGXmyivcf91 1MwAkh5tiMSBa wNLpSSchXFX2I06nm8X3I FMkRXNtJET6lXE7zZ3dgY lnbjogbGVmdDsgdmVydGl aVGboKHkwU038 IHRvcDsnPlBhdGllbnQgT yZoEZj9Y2GxQwh7SATmaL oyVF5tfMHeBNqaOu5nsPb bxDmnFY9wHWRk kvdcy246QgXxw6atLFMzs JTbEZntTFN7E93wr9O8LP JlWSHjMMD6fCO4tC2yvYo nbjogbGVmdDsg oxXgzUmoJWzmTXxjO791J HRvcDsnPkJpcnRoIERhdG L0QQ09MX43oZSby1L1qRK 2N3KdIUOifysq zlqvjMZ2NSRfMFFpyS22R c2okYxgVg3fJKJuAOM6ZN NlmNWtU1TdvZ5gPgQpNFB vSQFxN9LxwSXu JRoiK242SCbrBnN7DVBgq bDtY3KwZSXdvNqjKxP1r9 M0Xn7FZ8G1KA41WU52xMA qe7S6pCA3U8Zy XITxpruqlbcbhVV0XCYwB DYhsO21Vj4rwGeoIa1jML NiJVY1JIEhiLRxX8FinN2 yOiAjMDAwMDAw J5RyrRSmVHllB037PVtfC oU4FSUimaPxM2LjIMWkrY ldGrN6q5L2Ad5HUXi3TH3 3VD34sSZjx7B5 pKB2R7TaVRLbdyreltiup IH9WZZbBNMvzK33Pw7chD elNx0oMVCmJAE2ZKIamNH hP9YcmN0dYiJn NHXzHQAiB9TgcWTjAVpiQ 330EUmnLuS1RZVefySwJ2 LnXKYovXhoIxL8v6C4Cg5 LHPMuZY42VLQ9 mNA2ID89SY00J3IqYzjjr GFibGU+PHRhYmxlIHdpZH RoPScxMDAlJyBzdHlsZT0 gQy5bJWSvPPHo lEijyZHiKgPoi8geQEEdI VxvVY8nhXseM3DmmTY3TR Vfy9m3Rn26K85sV6RkoIM +IXMwvFB7aCE5 aG9gJgHlXeU7NMnaF159E rRclUBfXkgsd8ynb0ikqS y1JiA6AFRkxhDnxBwvBZH 7n2DeLa91T48l IHdpZHRoPSIxNSUiIHZhb Zzngt6nvP4xTb9+PGNvbC M6vSY4dM5gUuZpQiK4YOg tH218SbQxqTUm Xijxu2vxf5mxoMn5ThIiR BZoqwYfhSxxHGQ3y3SvJw 68Z6UndGioo6WuOsc2td0 4mYFcc1P0kQQ3 A4HpNSZihzrflCXgvQpfG F6qTJVatmbdZDJfzV3qZK ZqU9w9YrPvOoV4GBxdQ9U vwcI1UOJipNZn NYybKER0S10qa1C1IGGxH HNbBLG5mBM4sT4xgCjchb ogbGVmdDsgdmVydGljYWw vWDriP444QPRq xBnnAEFraQ9tBDSmeWXrb IlcUC2iKPYnxrqiPeEYNP 4EKRJzETwANVLELPS4W2N pWza8WIMsaSwj GN0jrPPwNPxqWh5xbZrpv KnuRV3vGWRearnaKSQhoZ 4cOAElfDBavGqoCV1cCHO hjzyue018KjJv YIV0DQShaRKdE6SgiD7uL hVpOVJaJDFyG7NryTVoBA uoP218ZZueLoT5EPFkpoI rZ0NaUTVmqBbv GrT3j3B3Jv2zCG1pWD9pU LGzXC14GP71iECwj6Q6oQ C2L6YrHAXtnveuhwveyNN 4VHWbGGQcrK85 rEPvXJeeXm0jn1Y6w501S MGuLNVfuG15Vk0bqBtjZC TwyEWPyA0yfyzwi1viwyw gIzAwMDAwMDt0 XMk1NSIpyTqhOvLuZCK2E hI6BGK7qBFcvJ8ubQgbwg qkoA4cLgj+NjAgWWVhcnM 2Y1RvVxu1YATb uEyfSQ0cfKEuFDpiZj9fa CmtdWyfPW6lELIpluyoBD GviK5eISDdlJWmbXiqFP5 gYDSwcaptg972 WdMeUDC1SEZwcHIbS3Ofe Q6sSdDsHTXnUSDvW4DbwJ ItLJqwV451OVejHkN2ZHX pezVsI4HnJCHm lIpfAcV4z6D2Gs2NTV9mm GG1Y6PjIdp4WVAqqNflGI 5ifQFwOJgkLf1oxCxocWj sIY1fYJXavqom MTBoiO7zJFZuiFAmsUtgG A2tDYOvrvdav935YaTzSW R5OMPaxNLtH4QumH8gNhB qYRZpRDXrY9Lu yXIfVWzfO140ZSvwOfB9Y PXsyaKjE2TcMNXgrBydDb Z4r8I1Ac0TeZFiZKLrAX2 1YB29NY00O3Jn PjwvdGFibGU+PHRhYmxlI HdpZHRoPScxMDAlJyBzdH xpOL4dHg4yJYOxJSRhfTa qsJXyEtBdb6fg GDFiAVcqLM2dqKubM8Khi OV2BYTgk7p2Xk04K84nK7 JvdXA+QQKqkND8rDV3xX5 pDeOcZbK0MZat I301RcRyiNBbRppuv2qoh 6pfuMw9OlLjYLJkoxAclR ikJNV8a4JvXw75C42pCUp pZHRoPSIyMCUi MRCesKhvco7aeK4gBo1+P MKzcEN7fJO3iF2eXfUpLg D1URhwZ582FePlmSCaImr dH34bJ6CwmYR+ SATeCoc2HFFaoRbbXW2yx BZqLUpvTu5tUQD2PuDvDo SiBZmdD9NaUBBlmmcmuvu jlLT3YTUqBTHd fZ91Nb3grWvxPm3qDUUcQ VJ2XSAaaOEoF3WfmN9ySp XkCXKxVOXpA4AshXKdJUg oA844LRszSmK2 EOUonxIbB7OdVPRidNjtS iN8q6G3Lm3AmUotvRCkBM 2hPnDtIYa0Y6OlJtf5EKS lrGztQN6zrBQv MUkqWs1dwZivsSfaBT5wR IGcqwzcj917DxNzd3umIL ObzXEqREitCVO2R40yo3T 4DMJxXVPjKLI1 hRW3yZ3bmApndhqnsRHgr DsgdmVydGljYWwtYWxpZ2 40FFRthPwuKjYXRbp4A1U oMsg6QDUiwAij BT9caNYiKRdnMv2imTsed PsfPP2oGDGmabhca352Fb Gem3lfOMPlwPWdDUrkUFF 5L37gj5G3TWXf HQHzYVJ6rUE5wD2rcMjdj jogbGVmdDsgdmVydGljYW vsGLquO382IROwfMgtTh2 NKmv4P5IiHxc6 FYLldUobRV7pfEQkLUswM u8efLrsdHxnRD9hDJUobd zys942XiLsg9erZKJbgQR kEEvvFAB0Z24w p1O3JWUjNWMcCCN8dYB4a M5nyFuxwfrswFNgcUjzno NloPfxAIvjPHusW421BUR vcDsnPlBheWVy OjwvdGQ+EF99xq73Z5RuB vgoIii2HCRxOXI0yEQ5kD 2uUMOlWDxnb4T1lLV2Z8Y urjFfqh9wm9fu YXBz (more content not included)... Normal [facility] XR Spine Cervical 2 or 3 Vie wson 03-30-2022 XR Spine Cervical 2 or 3 Views Exam Date/Time: 03/28/2022 12:19 EDT Reason for Exam: Z98.1 Report IMPRESSION: POSTSURGICAL CHANGES. MINIMAL ANTEROLISTHESIS OF C2 ON C3, C3 ON C4 AND C4 ON C5 WITHOUT INSTABILITY. CLINICAL HISTORY: Z98.1 lower posterior neck pain COMPARISON: 07/22/2022. FINDINGS: Flexion and extension lateral views of the cervical spine were obtained. The patient is status post anterior interbody fusion at C5-C6 and C6-C7, with metallic spacer prosthesis within the intervertebral disc spaces and surgical screws extending into the vertebral bodies. There is minimal anterolisthesis of C2 on C3 measuring about 2 mm on flexion and extension lateral views. There is minimal anterolisthesis of C3 on C4 and C4 on C5 measuring about 1-2 mm on flexion lateral view which is completely reduced on extension lateral view. FINAL REPORT Dictated: 03/30/2022 10:47 am Aldo Coburn M.D. Signed (Electronic Signature): 03/30/2022 10:47 am Signed by: Aldo Coburn M.D. Transcribed by: CAITY Technologist: Normal [facility] XR Spine Lumbosacral 2 or 3 Viewson 03-29-2022 XR Spine Lumbosacral 2 or 3 Views Exam Date/Time: 03/28/2022 13:31 EDT Reason for Exam: M54.50, M54.16 Report IMPRESSION: MINIMAL DEGENERATIVE DISC DISEASE AT L3-4 AND L5-S1. MILD ANTEROLISTHESIS OF L5 ON S1 MEASURING 4 MM. CLINICAL HISTORY: M54.50, M54.16 COMPARISON: NONE FINDINGS: 2 views of the lumbosacral spine in upright position demonstrate no evidence of acute fracture or subluxation. There is mild to moderate levoscoliosis of the middle lower lumbar spine. There is mild anterolisthesis of L5 on S1 measuring 4 mm. There is degenerative hypertrophic change of the multiple lower facet joints. There is minimal narrowing of L3-4 and L5-S1 intervertebral disc spaces. There is vascular calcification of abdominal aorta. FINAL REPORT Dictated: 03/29/2022 4:56 pm Aldo Coburn M.D. Signed (Electronic Signature): 03/29/2022 4:56 pm Signed by: Aldo Coburn M.D. Transcribed by: CAITY Technologist: [facility] Consent for Treatmenton 03-07 Consent for Treatment [id number] 208 [id number]#1 .00CD:127 [facility] Consent for Treatment [id number] 208 [id number] #1.00CD:127 [facility] Consent for Treatment [id number] 208 [id number]#1 .00CD:127 [facility] Consultation Noteon 03-28-20 Consultation Note Patient: ELISA GOMES Age: 62 years Sex: Female : 1960 Associated Diagnoses: None Author: Sophy Rush PA-C Patient is a 62-year-old female. She presents today for an extended 6-month postop from C5-6 and C6-7 ACDF. This was done on 10/18/2021. She does have some intermittent discomfort in the back of her neck that she rates a 2/10 but she states that she is overall doing fairly well. Today she is more focused on her lower back and buttocks. She states that this is what initially brought her in but it was forgotten about when we looked at her neck. She states that now this is taking care of she wants to get her lower back and legs taking care of. She states that she needs to have something done. Patient states that she just cannot live like this. She is very discouraged by all of the pain. Previous physical therapy did not help. She continues to do home exercise program that does not help. Patient states that she was told before she has a fracture and she wonders if this is the problem and that she needs to get it taken care of. Hfzr-ztc-oxvejqe anti-inflammatory medications do not help. The muscle relaxer does not help. Health Status Allergies: Allergic Reactions (Selected) Severity Not Documented Penicillin- Hives. Sulfa drugs- Hives. Tape- Rash. Current medications: (Selected) Prescriptions Prescribed tiZANidine 4 mg Tab: 4 mg = 1 tab(s), Oral, BID, PRN Spasm, to be used in the AM and afternoon if needed. She uses 8mg at night she already has, # 60 tab(s), Refills(s) 0, Pharmacy: [facility]/pharmacy #[id number], 166.8, cm, 10/11/21 14:46:00 EST, Height/Length Dosing, 84.8, kg, 03/0... Documented Medications Documented Fish Oil: 1,200 mg, Oral, Daily, Refill(s) 0, Prophylaxis Fosamax 70 mg oral tablet: 70 mg = 1 tab(s), Oral, qWeek, Refills(s) 0 Metoprolol succinate 100 mg ER Tablet: 100 mg, Oral, BID, High blood pressure Multivitamin, Therapeutic w/ Minerals: 1 tab(s), Oral, Daily, Prophylaxis Vitamin C 1000 mg oral tablet: 1,000 mg = 1 tab(s), Oral, Daily, Prophylaxis Vitamin D3 5000 intl units oral tab: 125 mcg = 1 tab(s), Oral, Daily, Refills(s) 0, Prophylaxis acyclovir 800 mg Tab: TAKE 1 TABLET BY MOUTH DAILY, Other (see comment) alprazolam 0.25 mg Tab: 0.25 mg = 1 tab(s), Oral, TID, PRN as needed for anxiety, TAKE 1/2 TO 1 TABLET BY MOUTH THREE TIMES DAILY NEEDED aspirin 81 mg Oral EC Tab: 81 mg = 1 tab(s), Oral, Daily, Blood Thinner biotin 1000 mcg oral tablet: 1,000 mcg = 1 tab(s), Oral, Daily, Prophylaxis fluticasone 0.05 mg/inh Nasal [place]: 1 spray(s), Nasal, Daily, Refill(s) 0, Allergy symptoms gabapentin 300 mg Cap: 300 mg = 1 cap(s), Oral, BID, TAKE 1 CAPSULE BY MOUTH TWICE DAILY, Pain lisinopril 40 mg Tab: 40 mg = 1 tab(s), Oral, Daily, High blood pressure metformin 500 mg oral tablet: 500 mg = 1 tab(s), Oral, BID, Refills(s) 0, Blood glucose omeprazole: 40 mg, Daily, Refills(s) 0, Control of stomach acid pravastatin 20 mg Tab: 20 mg = 1 tab(s), Oral, Once a day (at bedtime), High cholesterol Problem list: All Problems Palpitations / SNOMED CT 336235447 / Confirmed 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 Hypertension / SNOMED CT 4500102292 / Confirmed Anxiety / SNOMED CT 57195834 / Confirmed Lumbar disc disease / SNOMED CT 6771372167 / Confirmed Lumbar radiculopathy / SNOMED CT 078044340 / Confirmed Chronic gastritis / SNOMED CT 75981931 / Confirmed Migraines / SNOMED CT 08192444 / Confirmed Insomnia / SNOMED CT 859320120 / Confirmed Colon polyp / SNOMED CT 389405766 / Confirmed Chronic leg pain / SNOMED CT 872382152 / Confirmed Laxative abuse / SNOMED CT 024366967 / Confirmed Chronic cluster headache / SNOMED CT 670063041 / Confirmed Vitamin D deficiency / SNOMED CT 68783654 / Confirmed Hyperlipemia / SNOMED CT 93842106 / Confirmed Osteoporosis / SNOMED CT 538490675 / Confirmed 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 No edema. Musculoskeletal: Normal range of motion of the upper and lower extremities Normal strength of the upper and lower extremities??55 Skin: Unremarkable Results Review Cervical x-rays. Done today. No report. Status post C5-6 and C6-7 ACDF. All instrumentation in good position. Impression and Plan Patient is a 62-year-old female. She underwent previous C5-6 and C6-7 ACDF. This was done on 10/18/2021. In regards to this she still has some intermittent posterior neck pain. We had a long discussion abo (more content not included)... [facility] Comment on above: Result Comment: Elec tronically Signed By: Sophy Rush PA-C\.br\Date and Time Signed: 03/28/22 12:44 EDT\.br\Electronically Co-Signed By: Derick Meza MD\.br\Date and Time Co-Signed: 04/04/22 07:48 EDT Office/Clinic Note-Physician on 03-28-2022 Office/Clinic Note-Physician [id number]# 1.00CD:127 [facility] Physician Orderon 03-28-2022 Physician Order [id number]# 1.00CD:127 [facility] Physician Order [id number]#1 .00CD:127 [facility] Physician Order [id number]# 1.00CD:127 [facility] Coding Summary.on 12-29-2021 Coding Summary. CD:[id number] G h0bWw+PGhlYWQ+EF2QJSZ jZ30vvIRdfW3LV5aNON6O OEMQKLUCHO0SJN7vpWJ6C WtgQ1IknqFq ZipuyTUtWH23KFp3CIP7e AeePYiroL2nlBQfH9f1Sy BgGO66vW98GYxsKFFjZgU 3LjZpbjsgbWFy Y3bhMoYadBNcMxr+PHRhY mxlIHdpZHRoPScxMDAlJy RdkSxwAU9tIm0fTFBuVPV vbGxhcHNlOiBj j8pfTGMdATvpDW7ykCcyU 5MmxEV9MMTgu8u9Fr95yX I+VAWqKYB6zKvnIBify74 2PpLoj5uaRFA9 dLMsZEewFZS3S35ly9G9L DEuKUPmZPV9zOP9mZ2mpX nkoacvQ1AdsLAxNrU0KZJ 8kYOctF5ybCvl urxheS1dAmi+V14OWX6DM XCDQB7OAlz7L2WxIvxgpV I+MZ47VVImIJ96lRBivLS lu7oouOo7YlIx BIQcUZM7mVojWPgcb3MmZ JBcI27npWRfu4X3XCHsdY eunKMvXuQbhVG3qI3dIKc inuoym9hkkrgh Warel3qgnu16xH54Q69jI UyhCLGjYBD0LODjKCHtoQ wdlq2jbX4tRh6+NQets8j hg8jdmBn8TkWa AQPqwcFxdOovDEL4n4BtL j20G6JiqPfgl8TnJua4ac 10aHSrk6W4tPJ0JRfpMPC hiP3xLLadWpC1 HIAhPwZqmW61rPOsKDceF w2kwQjhvAulTV2lQORrfy sqRLHfuZ5lSYPkpEOkhGx yKR5qVMWpikgn f735OpZvCMU3FURnxJEnC 3BgkI6uBtRxCUMaVQKpZ4 AqiAIaHPchO717AAtpVnV 8VWYbqiImG0Co SRVauVgsPjH1m4F7Hh5Qb 7BrhinaHTX7DAraDMY2Yu M7BuFfCkF6V3WfPmw5NED muXqvDW9jH0Hg JMYfbrastcrxjAP9CSNoJ SKrpF38cJCuKEscEr0dn8 T8l513RHVsEGTmaJ97Jn8 udDogMTBwdCBU xZ0umywqr6lmsqqoApWbG RItNNk7KHl6BPEsaNixLc WpQKM3LzZ2NFD3oGCeeT9 hiXazytuhbZ8i Oyc+O44ghL3vFDW5WOF6l lwnRYPoubXuUH13AA06E0 RyPjwvdGFibGU+PGRpdiB uhKyeRF4yVfSo l1vmt9NtNWkwD3FvXMTgV VhtBxz9XBYoTFK7nLZ1sD 2oUFYwWZfes2E3yNJ0M8H itnIqbx6xr2fa MCFvEZzqE36jsSIoa6D0Q XJftZK9NLRjuZrmOtQukI 93Oyc+VIGutBbpp3AtQcn ll7nck4zitWi9 SrEwLOEitnRgwEisOOD0l 4KvZa10Z07dRExrMDTuKN DgFZKhZDYpaCczbj7adL1 wIi8+PGNvbCB3 xQC8pP2eGGQuRbK5FUfsW 278YjUjcNAzWrriz6rzk6 ejuUl7TfUbJPZrvsEwtSa eIHU8n6CnRs84 Q06kNQprBFRwQQZqGGQaJ JGkhRljhl8jvS7cTq4+PC 7ij0nbjs78gB08lMP+PHR lBXQ3iDaiYJls PZUdsW7lZTahCgR9PPRkW sCwtH62mQXbTSsbWr2agL agjPezOB1jSXNrpsvke98 0KpLxy9eeXPCj sVVgHFnbZMI7E43lp9X4A LIkNTHxDQJ7wRK6sZ4icC lnbjogbGVmdDsgdmVydGl qEIavQRbtU831 IHRvcDsnPlBhdGllbnQgT pGjSEz8U5VwDqk6JBQsfQ ehXX7qkFIfNJltHa4ghHn woRtwTN9dAZUf nwzld165JvXai8zlPGNnk ZQvWYmkECW7H32tv5W5GV NtGLHmCVT0uYJ0pP6bmHw nbjogbGVmdDsg suBelNajDWigLBfmE026Q HRvcDsnPkJpcnRoIERhdG D3DG68EL99kFTzd8P6eDF 9Y4DmUKTfefib ackhmEL7WDQmXQNhqH10K i0bxGobAx4hCWWyZRY8SL HwgUEfS7IgdB9oGzJjTIN zSOLiD7XkoDYh QGsqI235PEanTeR8AQIjy pLtK7TfNNOhmTwfKuZ6u3 J2Ek1NB3H3EX59EN12eSP nr6C7fQX8O3Rr IJHgjsogquxooTR2XORfC GWphF72Ze9rgLykUm3vQR KkQYV6MJBegXRaZ3HnrB2 yOiAjMDAwMDAw J2TjlJMnMGjeM652CXjzI lB6FOByfaNxF9TeHDKudR sxNuZ6u9E8Tl8BOZl8EZ3 0ZM46iFSyf7X9 sJG5D3QbJBVmiacagqwle LY5AIUiXFOhcF60Er6bdA eqRz0dKGZvDLF6AUNzaUR xX4RrkL4nLoBl EKHaJPHvL8QqyDRzUWxbJ 154MHpoXaH6ZHQffoDvG5 JxTUMjxGigSyL7z2O8Qu7 RFUJlIW84MHV5 fIT2ZR29XD03B2LbZawuv GFibGU+PHRhYmxlIHdpZH RoPScxMDAlJyBzdHlsZT0 dCy4oEAIqPYVx cFsxjTAhClVba0ktFCDeW OdzJY9sqZndX5AmfTL1RC Hxk5i0Jc11W38vB4UprKN +YGLmjUV1sLL1 kB2lEsIdQvO1VLplB383H cWaqTJoPlswp9vel9qfoD i4JxD7FSOvchJgbByfVKF 8w9JiDb98F66u IHdpZHRoPSIxNSUiIHZhb Qgftz3oqT0sIl9+PGNvbC H7yCB2hR0zRaPoAsM5GMl oH948KbXhnXZl Ifiai8dvy6xbkAc3JyDrI ARiagTtsOjvGDK0w1RaXx 96G4ZflEcab8SxYyn3fn2 8tSCxb3I2fGD9 G6ErBFMwoogeeECghUwqO K5jCZYajoljJUIdbU9rMQ ViR8o8QvBcLnZ9UQyuJ1N ylnA2EGQjiYMs MPndIGH2W72dg3P0LLXaO RYuUDK6hGC4uP3vhVpley ogbGVmdDsgdmVydGljYWw dRUygW605XJOr rRayKVYlhY4iIAGouDEzf MesNV2dTZQmuhaiImPNBZ 9ENQKlYTmOUBVCZLB2B6T oRpi3UWJofUrw LQ0blCDgSFxrKe4xgFnhp FrpHI7vRYYlqoyzNVEugE 3qXIXgdOCvaFlvRB6mOLS oymyfn824MoBn VFX9DOWqeFCoT7OrjB3eI yLaKFPvVDYhB3NjmFJbDE ogQ270YXkrZnQ3LXOprqL qB7ZzBZIgtWre XuQ0z9J0Jc7uPV0zRK1vB RHwSL58HL87iVQhm8Y7rB Q4Q3SbTJDmmclvvefetCB 4DSGjQVZpaO01 jKTwPJzyVy4ft3D2z732C PHpVPVyxL21Hg4aaSarUP VdnCKWlX0hiipdj3xqjnk gIzAwMDAwMDt0 CYf8HBUyePfvOuUgCGI7S wP6BNH8sLIaoU1oeRpfgj ltsT8kEmf+NTkgWWVhcnM 4T0DqUko7PAJk qZynZZ4nfPJlZWniAg1cg RemqKvuCQ6nWMOivhfuCH DgaI3kARKngCLniKjeRG4 nIDGikeksn989 WbNwRUS5GLBjfHQvV3Aqy A8bVtUrKVWmTCYmW8DguC AjYEvzX185BJfgKeY4MEC gwjYoH9HyDMFf iVjnFuX6x8K7Qb7GFR5os WB7U1YgXmm4JSQtzGzdGI 1ekAIzNZrgUo2tpYoepKg pSD1pVIJsajoy GDAqqP3xHLIeaAFvyJnxU Y1cQSIqlrdav704QvGmPS Q9DWHseXRyE7UpgF4iKjE vECMmRVMrA2Yu mEOfURmcP034TXhfPyC7C GMbuhFoP4FbWWOegHrrYh M3i0O5Gp5BdLClZQLuAV3 0ND70YW08F8Ud PjwvdGFibGU+PHRhYmxlI HdpZHRoPScxMDAlJyBzdH ulPR5wJf9eSCBrUEEtqAi uwGEoNqWtt1ig YUQhSGueSN9ffLaqH2Czy MC0SGIrr6t8Wx95B98kL0 JvdXA+YHNahYC2sXH8yD9 eOrAuGlC5CSmj F074FxMdkFWuYzzph2ehx 8zkyTt8LlDyRNDntfVmyF yuGLQ8y7QwTe32K21cIRd pZHRoPSIyMCUi ZYSilJwkrd3cqC0qGs4+P UYrhKQ2uDZ5yO9jHyGmYv O4CQpjL363FwBldDUiFxf dH42yP8SkgVD+ QIUcYvo4SDTtvUanQZ9dj PQaPMpxUw7nLMO9IgHcDj MgMVduS9AfLFJbkhlivvu cbJC7CDWeOVXs nS28Dk9mqUapUe5eWMSxX XO1JFYzrQHgH3LegK5gRt CuRWNaPUTlF3EkyPSiGGf qE127SMvcHnF6 VSYpotNpH3WaMTOjeKnuL wZ9s1A5Wz3PdLezuDFhHN 5sFmBdGTk1R5GwMmw5AIH jzOoyUD0pwTFy MUzvMr1vwFbicHnmDP3xC HYfavkeh425IxRaq2utIM TdmFVhGOjbJZL2W57ud9I 9GZAjFCFqKIH1 fGL2lW9knGskwwrhvSIrc DsgdmVydGljYWwtYWxpZ2 63HITwrKnaFfZGXpx0A4H aOzs2BSXqzNnc JV6szZIiOTfqCe6bjOesi EboBS2gHNFiennkg863Lw Pyo8lfRYWzgJIeINfhUCH 9Y16wv3H4KYKr KNQiCXW7sRP8zN2npZwiz jogbGVmdDsgdmVydGljYW aoITkkD347WVCqxRtvZs4 IDws8Y3XbYyb1 VYMsnNtxVN4dtCNbNFkqL s7gdBxdgWmeSV9yIQShzy vsx631UwGiv6bjJNEuaZB aPApoBWY9U04h g0I4BUWjWQSuTRB0yWZ1v N8oaUrnmbzviUTowIneju XraFxgHFnrOUmiW961DCI vcDsnPlBheWVy OjwvdGQ+XC62nm76S2GnQ cqtDqk8GEGjRNT3lBL1aW 9gYLNrHXfzv7M2qOQ6O9C ywcLjvg2oj5db YXBz (more content not included)... Normal [facility] Coding Summary.on 12-23-2021 Coding Summary. CD:[id number] G h0bWw+PGhlYWQ+ZN2SLBI yO82ukLAutF2LO3sNPT7A FENKIVVTKF2CED2gnED8U SsyU5AwsuFn MsgkoZMyNK37FHz3ZFQ6h TtmILitxX9vzUImH6w7So HxEN86jG07TWpzREQePzF 3LjZpbjsgbWFy K2qcQoTayXShPtq+PHRhY mxlIHdpZHRoPScxMDAlJy UwuFflWS3iJp3yQPZkGUK vbGxhcHNlOiBj i3dmFSLvDLdyQZ1peVbqD 3GfvZE5NNPqa0z7Dq15oE I+LXCcCWZ4yHrwBRags41 4RsKhg9bbIYD3 iXGpPNdtZFJ0K96fv0F9M XBmIBRhQNS5iOX8xH1spH plwnizD2QljVHpUfT2CXG 4mUPshL3ksSbb gjwnuQ7sHfv+C00PNS2LR XUFJA8DPvg3A8ZgTifeeO I+AK41YTWyZQ23hWFwfSN do8svwKk5WxHa UQCpIMG7yKtjSUqsm9EbF KUlN60piYCdf5N1LVWggX pzoORgBgIxpGG8wF1hGFg olpkut2crzxyf Anwkk2amto71qP72R42uM HuyGEOoTIN2XTGjFVMgpX cbkj5cmM5sFn6+CZttm9i rj4iycWo5UwNw PMLjlhTeeHttAZG7t5SfH f64T2YkqEwqz6CgTsj1po 08lLGxz9J9uWS0BDgaXPF vhS6nPKurCqK6 JFIoIrCbkN77tVGeOXjsS o9esWgynQjzTM6xTWZmoz ycYBZcuV7mWYTqtNHweQy sBV3oYHHoinlj q758PxAzBDT9MYXtlSQtN 7VkyC0fJvEcLCSyFQXzK5 WmmBVzWFeiO363EKfeBrZ 3FWVkmrFmR3Hg RAVstHmcOqS5p7A6Gk5Ay 1FoyqzxKGB7FWxuJMO4Fa GjLjEgIkH0E4YdDql7JKS rmEbaYT7hP8He WHPitsltfcwwlZF6PGQbZ EVebB12rHMvGFwuGb8fl3 O8s944ICUfETVgmL78Qx2 udDogMTBwdCBU kT4ksdlac8izbcgdIsQaH WZlYWc6DWt5MYKpoDhnTo YmFTI3HsG9PGA0fNLfrA7 ptWfsqyqncK4i Oyc+B44dmQ7rQYC0WWO7f lkmXNGicaEiLZ74FQ08E8 RyPjwvdGFibGU+PGRpdiB ihLlkIQ6tImQf u7qsu3RmGBxaX4IoEYXlC BlbSfc2KWZqXEY4xDN3rD 4kKGVtDVjbc7C4gVC7Z9M kxzMdtr9rb9cn RXIeIMbpE79utBCco4Z9B GDxwTD3TMSwaHnkVaLihD 93Oyc+GAJgnZots9UhOmh tm4wdt9atxSi6 PiBdLTGkcxNlkUkrSVM7v 4OhBs58W44eMKxaLKNlGN VsZONpDKTsoYlbsl8bfM5 wIi8+PGNvbCB3 cPL8wE4aZBFeJkH3MXyjX 891JsFjoQDzItwea7osg1 qnpFj1SrNkWNShkkEfhWi mJZC1m6OgBq52 I90bOCofCHGmBCMrIOHuM IWijFiach1ooD1kKu0+PC 4go3yeby07wK91rUI+PHR iMVJ9oWvuXZwk PWNypZ6lKEtyDdO7NSVgP aVrsE44zNSuUEdaGi0wwP crnOztTX9oLZCfkltld04 2TnQcb1agCNEr dYUjGCaaZIM7K80rs1J9L DNxORKyNND6fLR6cD0svN lnbjogbGVmdDsgdmVydGl uKHnnMUeqV947 IHRvcDsnPlBhdGllbnQgT xHpWFc3Y0MhNor5FXExyJ ptHS9btKWuJYsmVt2gtBx ttPsyLC3hKMQt jvmfl379WrWes6yeMZWxe VZoZUakGVV5U14mr1O8JF PbOVRcLED2aXR5yB5csWw nbjogbGVmdDsg oiXefGgdCDiaWRllF375W HRvcDsnPkJpcnRoIERhdG Q2YE14AS39oWAcb6I0sQG 3O3CbAKXomyea ybpayHA1CHNaNABgzZ25F y4jpJtqNu8rZRHyYMU7PV EnuVZiS5TlaR1xRtGhHVG fFEGrO1IoxNAm XPhwM906OCtuZbX0SCPed eKxA3QaVZQicMplIzH2r6 X7Ib9UB4E1TP49HV50rYC yg7T3cUI4N6Dm BYTuzwqaywauzOS7IFWcP ICpnC86Xh5gdSotLf8qUD GbSSW9PLXgmFPnZ0UbiB3 yOiAjMDAwMDAw S1TatRTeNFtqP546IOirZ lR7PQJsnoWbI7HpHXVmbR dnFfG6a7K1Gr7KXJm4QR8 1CX09kKWmk8Q8 oHW1S1ZhMXXgwfmoqocgs CB9ATIpIVZhfE40Eo6eqY beZu6tYOUbOSZ7MRDlwPO lX5HnoM4yOsAu SWUjPWXpD2EseYLyKRygW 947OUomWbG7DDVccnTtH8 FdDDJnjXhhHfT2f3I6Ic1 ECNKhYG50EZQ9 pWC8DU11BI16A0CyQmjwx GFibGU+PHRhYmxlIHdpZH RoPScxMDAlJyBzdHlsZT0 rGx1xJKKeCUNb oGdniPPkFkNqx4fkRVOsI SwrIQ2doJstH4IoaSL7CL Wwt6p9Xq76R00fC8ZajUQ +VMSngGW4tTT4 iG6hGrMoVcI5ODouV262R uNvbOPqKozxi6yys7uyoQ z3RxZ4HLRgqcVrpYktEGH 6a1PtVq24B49l IHdpZHRoPSIxNSUiIHZhb Yhhto0elT6uHi3+PGNvbC O1rNG8lY6vGaQvIkV6ESm wP287GlDglMCb Dgnli6vuo6ydhFj8IqUyT LYwpoNjoKbrVVW1d4HwHn 89H5TmyOtom2GdSkk8pa3 4uEJel3R2fTQ7 I2NvMGGtzrfvtSRfcJvhI B2eJFZbvvnvRMDhyV9uJX YjY5l8OdUeThV4ENxsD4Q jajD8HIBzpBAc DFeoOLH3A84vs0H8IAVbV FToUPU8dTR7lU5jjBwvgh ogbGVmdDsgdmVydGljYWw xSPxxT069UJHi cHjuSURhkJ6eMASkjYPte VdfVM4hHCDpzbytOfJHIX 0IOUYzATwEMRIHHDO6X7V vFls3OCQizDep PB3xaHAyHZxaWf8xdZicg UqvJM0eJDFjhxzbHJXleE 7qDYVycRLbaUupFP4dNZV whrdpd206BzCr WMG7NZIeyMGsO3IpwU7yP bUoZWFqMVKrO9UohUNlBN fsN946WScyPxN3FJFgftC sE9WsEVIpqXyv UxE3x6W2Lx8rYK6yCA5eD LYoZV38AU91aFZhe5V4uI N5A0VbPGGiqtnmbyxmdLV 3OZAcJDPuzS05 sZUgKMlpDc0js0I2e807I LAwKXPuaM85Er8xnKbmVX OisRWGmU2eumffq9avypf gIzAwMDAwMDt0 KMf6SMZqiDbsEgGoITA1U jP0PUO9yAEvlJ1kzXobwb sfrD3vNdr+NTkgWWVhcnM 2B7GpMnk5CVMn gTpwDG7zoFKoQAhfRi7ts MlgbSedAZ9oTVCzvqkhRK RsfV4xKSFlcGWisTidYC2 lBIFhwnhil552 RwGhDIC8WDGckBGuD3Cip I1rMlHwDSOcWGLwX7YmbH LcXXfsR364FOpkIaX4CXA ekjQxR7GsDZAb dLdjBoG7g9E1Bf7TGN3wi AW8D7QvRmv8NKAuuYojZU 6zqLHiQBkgCm7mlYgiqTd vCC9oFSMwnlpv RHHwfE1yVABvkIZmiKtiW U2zOWVcssvut116NnSjSS R7IKEvbFZgD1QhmO6aFuI vIPNyJMNpA5Ss jGSyYZjqL960TEkiNwO3A RYdywDeA3TdYNGfvZdbRa H6k8L1Bs5TmKApJCVbEO4 2OR08CF43C1El PjwvdGFibGU+PHRhYmxlI HdpZHRoPScxMDAlJyBzdH vnCQ5wSg2nKAClLACsmDe asNIaExSvh4mz JZMuDDuoBG3gyCafA5Ebz RR4IUVfi3g7Du02F53pL4 JvdXA+HFPqaQQ0aNB1kW6 cKxLdSkG1AFjs W439EfQfpVRyPdmre2gfe 0rzvJc9GrIoLJCqnaYwaV xgUKI3a9YwTi30V64sNWz pZHRoPSIyMCUi BGUnnFfjqf2efS2rSd9+P OJazMQ4gPL9zO3oEeSkEv H2HBnlI280XqZunOZbGuq uE97gK5RrkLU+ MMAqBpn7EBBcxGgpCA8wl LFoUIqqUt8nPXY1TrQqCr YgHLduZ4UgUHUjdxnxbfl cxNT0KNUpOBFv yZ78Sd1diTzaJz2eQNDnX RV0SKCuaLAgY5QzgL1iDd VcRAOrXOPkF2AupRQuEQr yI337DWdrPcC4 NSGolmNiL7YnEEFicXvpF rB5d9G5El8MnKrylPOwNT 3sZfCeYZl9F9XmQiy1RVW noUaeBO9qvLUd VKuhBb0geHksjDtkGY9lH RMdrmyfj507WpDnp3ejCY GzhAEvHYatKCE2A47xf8L 7QIKmWRDcIOC5 wEP1vZ2zdRujpydkgBTfx DsgdmVydGljYWwtYWxpZ2 13QXMtlLuvQsKHJex6O2Q fSfl7OFShdMak TS7ktFMvUAcnPp3okRapk LsiLZ0wKHYhzqkaw656Yh Orz0meLCTzvOCoZLevFUW 3F35qz0Z7YUPk OJOhSQD1uNT8cT7nhHcgi jogbGVmdDsgdmVydGljYW btLVaeG184OJDodGxjJo4 FJfy1Y7XrHos7 UECypUghRX0sgXMoPGhfP h6eeZnojVxjLL8dAXNmum bts249PlXuk3qjAUDbnPE fPNqlASO8Y30s b5B5TRVhCQZoCAE1cOQ3n H3ufRqybuktpCSmuXbcir MtrGkeZSxuKQqdR798IBT vcDsnPlBheWVy OjwvdGQ+WQ77fz62V1EkC foxMlt9ABQjFKF0yAM4eE 8hMRTmHPzky5D0dNL8F7L jlgFues8fh3yc YXBz (more content not included)... Normal [facility] XR Spine Cervical 2 or 3 Vie wson 05-19-2022 XR Spine Cervical 2 or 3 Views Exam Date/Time: 12/20/2021 12:24 EDT Reason for Exam: s/p cervical fusion Report IMPRESSION: POSTSURGICAL CHANGES. ANTEROLISTHESES ON FLEXION WHICH REDUCE ON EXTENSION. CLINICAL HISTORY: s/p cervical fusion. COMPARISON: 10/31/2021. COMMENT: Flexion and extension upright views, 2 views. The patient is status post anterior interbody fusion at C5-C6 and C6-C7, with metallic spacer prostheses within the interspaces and surgical screws extending into the vertebral bodies. There is hypertrophic spurring of vertebral bodies at C4-C5. On the flexion lateral view, there is mild anterolisthesis at C2-C3, C3-C4, and C4-C5, with reduction on the extension view. No fracture is noted.. FINAL REPORT Dictated: 12/22/2021 3:10 pm Cameron Olivares M.D. Signed (Electronic Signature): 12/22/2021 3:10 pm Signed by: Cameron Olivares M.D. Transcribed by: CAITY Technologist: [facility] Consent for Treatmenton 12-04 Consent for Treatment [id number]# 1.00CD:127 [facility] Consent for Treatment [id number]#1 .00CD:127 [facility] Consultation Noteon 12-21-19 Consultation Note Patient: ELISA GOMES Age: 61 years Sex: Female : 1960 Associated Diagnoses: None Author: Sophy Rush PA-C Subjective Chief complaint 12/20/2021 12:28 EDT spine visit . Patient is a 61-year-old female. She presents today for a 3-month postop from C5-6 and C6-7 ACDF. This was done on 10/18/2021. She is able to eat She does have some intermittent discomfort in the back of her neck that she rates a 2/10 but she states that she is overall doing fairly well. She is fairly comfortable and she is fairly happy. She is having some issues with her lower back that she is seeing her primary care physician for but at this time she does not need anything from our services. Health Status Allergies: Allergic Reactions (Selected) Severity Not Documented Penicillin- Hives. Sulfa drugs- Hives. Tape- Rash. Current medications: (Selected) Prescriptions Prescribed tiZANidine 4 mg Tab: 4 mg = 1 tab(s), Oral, BID, PRN Spasm, to be used in the AM and afternoon if needed. She uses 8mg at night she already has, # 60 tab(s), Refills(s) 0, Pharmacy: [facility]/pharmacy #[id number], 166.8, cm, 10/11/21 14:46:00 EST, Height/Length Dosing, 84.8, kg, 03/0... Documented Medications Documented Fish Oil: 1,200 mg, Oral, Daily, Refill(s) 0, Prophylaxis Fosamax 70 mg oral tablet: 70 mg = 1 tab(s), Oral, qWeek, Refills(s) 0 Metoprolol succinate 100 mg ER Tablet: 100 mg, Oral, BID, High blood pressure Multivitamin, Therapeutic w/ Minerals: 1 tab(s), Oral, Daily, Prophylaxis Vitamin C 1000 mg oral tablet: 1,000 mg = 1 tab(s), Oral, Daily, Prophylaxis Vitamin D3 5000 intl units oral tab: 125 mcg = 1 tab(s), Oral, Daily, Refills(s) 0, Prophylaxis acyclovir 800 mg Tab: TAKE 1 TABLET BY MOUTH DAILY, Other (see comment) alprazolam 0.25 mg Tab: 0.25 mg = 1 tab(s), Oral, TID, PRN as needed for anxiety, TAKE 1/2 TO 1 TABLET BY MOUTH THREE TIMES DAILY NEEDED aspirin 81 mg Oral EC Tab: 81 mg = 1 tab(s), Oral, Daily, Blood Thinner biotin 1000 mcg oral tablet: 1,000 mcg = 1 tab(s), Oral, Daily, Prophylaxis fluticasone 0.05 mg/inh Nasal [place]: 1 spray(s), Nasal, Daily, Refill(s) 0, Allergy symptoms gabapentin 300 mg Cap: 300 mg = 1 cap(s), Oral, BID, TAKE 1 CAPSULE BY MOUTH TWICE DAILY, Pain lisinopril 40 mg Tab: 40 mg = 1 tab(s), Oral, Daily, High blood pressure metformin 500 mg oral tablet: 500 mg = 1 tab(s), Oral, BID, Refills(s) 0, Blood glucose omeprazole: 40 mg, Daily, Refills(s) 0, Control of stomach acid pravastatin 20 mg Tab: 20 mg = 1 tab(s), Oral, Once a day (at bedtime), High cholesterol Problem list: All Problems Palpitations / SNOMED CT 543016080 / Confirmed 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 Hypertension / SNOMED CT 2874648747 / Confirmed Anxiety / SNOMED CT 79340324 / Confirmed Lumbar disc disease / SNOMED CT 4835532400 / Confirmed Lumbar radiculopathy / SNOMED CT 188837476 / Confirmed Chronic gastritis / SNOMED CT 31024243 / Confirmed Migraines / SNOMED CT 11405097 / Confirmed Insomnia / SNOMED CT 078914176 / Confirmed Colon polyp / SNOMED CT 634251090 / Confirmed Chronic leg pain / SNOMED CT 924569828 / Confirmed Laxative abuse / SNOMED CT 938376548 / Confirmed Chronic cluster headache / SNOMED CT 024008485 / Confirmed Vitamin D deficiency / SNOMED CT 48283244 / Confirmed Hyperlipemia / SNOMED CT 98475773 / Confirmed Osteoporosis / SNOMED CT 990458163 / Confirmed 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 Well fitting. HEENT: Normocephalic, normal hearing, normal voice Heart and lungs: Unlabored respirations. No edema. Musculoskeletal: Normal range of motion of the upper and lower extremities Incision is healing well Results Review Cervical x-rays. Done today. No report. Status post C5-6 and C6-7 ACDF Impression and Plan Patient is a 61-year-old female. She presents today for a 3-month postop from C5-6 and C6-7 ACDF. This was done on 10/18/2021. At this time, she states that she is overall doing fairly well. She has some neck pain that she rates a 2/10. Otherwise, she is comfortable and happy. She is doing well in regards to this. She does have some back pain that she is seeing her primary care physician for. She is going to follow-up in 3 months with updated cervical x-rays. She will call the clinic sooner if necessary. [facility] Comment on above: Result Comment: Elec tronically Signed By: Sophy Rush PA-C\.br\Date and Time Signed: 12/20/21 12:48 EDT\.br\Electronically Co-Signed By: Derick Meza MD\.br\Date and Time Co-Signed: 12/27/21 07:59 EDT Office/Clinic Note-Physician on 12-20-2021 Office/Clinic Note-Physician [id number]# 1.00CD:127 [facility] Orders Officeon 12-20-2021 Orders Office [id number]# 1.00CD:127 [facility] Physician Orderon 12-20-2021 Physician Order [id number]#1 .00CD:127 [facility] Coding Summary.on 11-09-2021 Coding Summary. CD:[id number] G h0bWw+PGhlYWQ+LD6JOFI tM71ubENlyS4ZE1eXCU8N ESVCDVKOVY6XUA7iuLT5G GvtA0XjsrLn ZbhwdVUjVV90BUp8YNX1q UdcGQruiZ6iaTFbX5n1Vx SgHZ77hZ52MGtvVHFiJxL 3LjZpbjsgbWFy M0hzNxAjkRVmEbu+PHRhY mxlIHdpZHRoPScxMDAlJy UpoHbeHV6gAk7pEEZkHXD vbGxhcHNlOiBj d9fdLDGkMIanJL7gqPolF 6UwhUU5XSCuq0q1Pb85jE I+DMVsKKV9lAixLAuny14 3LlPjc7vxCUS6 tOIkRWodXUN2J19ab0I1C AYyAKSyGTE5dIW2cA4vaT snbdpoM0YwdWTwWnJ3MIL 7vZFtfO4jlMlg gjuxjA0mFsj+M31XJW1JW IAEFI3HWyf3A9FxNolwtV I+HM22RILdZG27qREimNT zi3oipFm2FiFc SSBnQKK1aCepDQowf7IgQ IIaW69zaGAkw1P6QIHwdJ qskYRoIvOogYD3gN6iUPo utmrev2rwweht Tzxyb6dxxw61uQ28S40xW OuoDWReNFK7EHRoCOPwkQ fsaj9tpQ3sZu5+DVrfx9i jj8bxtCc4DcOc VEQkptTvyKcvLAK3v2EvE b35W2BgxBaww3WsPpe6vh 89kBBph9H2mAW7TYkyLWX kjT4eKKihPlR7 PHPjRgKyeT51oVBjDVdhD t3khLrtbYziYI8xXMIsrv loLVJgxU6eMBYnoZWdqDa lCI3yFZSvxvhh q174EgEiQGK6BYEulUXhF 8VzuW3uCfVrYWLhAGKnJ9 ZyxZAoLTrwQ267ZQpcKkK 5BKKspkYhG5Ko APYhpWgjZjT9b4B0Wp7Cd 3LtlugaTWG1APbrEQT7Ob O0TdRsHwV7V3RdQmk0TJV zlRbxFR5uW7Rw DXOcrtlipdevcRV9UIWeE GQlzD98jAIaNHqzVd6me2 Q4g180KXOsPFUtvF04Vc3 udDogMTBwdCBU mG4ocpjnr2uutuhsOmVwP ZYgJPa1UVw0QBMezAvkXa LiRVT7OlC3HIU7zWZbvX5 dgNsnzyffkO2v Oyc+K58tvD7eIWB4VIM4g atnZXMzywBjEV00LY16T3 RyPjwvdGFibGU+PGRpdiB oqFocVR8hBuHw g5umt1XfWGedO9RlTHOsE AacSbw7CGSgWWD7vZE9aM 2cFPOnNQvth7Z6pRE0S8W kdrIpbc1iu1we QLScIRvkT01ehFXhu5O7G EIqmAG2WXOwtTeaAwErkI 93Oyc+VNEhySapu4NgTjn kf7aiy2ujmGx2 YtLsHXIohhVidManTJV5k 3KiLy93X66eJZlaDBZpYV AbDHWeIVBpoNyvce8lyC4 wIi8+PGNvbCB3 nRW7xI3xUYGuNhQ4SDciJ 054IgZcoTBuFrfdb8tlj9 tzmVm6FeTpZBVjksYojRr iMPI9n4ZjEg86 D30qITzoRDIsTMNyJNWmX WKzeEywcq5ffP6vWi3+PC 7rb6asbx82yK61zQQ+PHR kOOX2wYebFLqc MBHkeU3aKUuhUqD0YOYfW fPojO93mCHiLGbbCo4snX lusUtrXI9dFYIqcajxc89 1IwKrp2xoFOUl dUVnQFmrTES0E90ib6B9Z TUeLETvMWU5hPH0oA2smM lnbjogbGVmdDsgdmVydGl oLIulKOsjW087 IHRvcDsnPlBhdGllbnQgT iMdONn5Y8LrBic1YOWgiQ lvVS3knRImOKcwYz7mjIy guAycDJ4nJLUo cjxzj819JvEsx0owWRBlr HPbMJztRCX6Q59yw7R2IS UaUJOnNNN8cXP7tQ3epEx nbjogbGVmdDsg zcGldNmdNWzzYSsdO997T HRvcDsnPkJpcnRoIERhdG E5JP25SL13dRGek3T9mXO 5I9GcNOFfvmts kpnjhGS9XEJwOSHmxM33U s6fwOtmZe4gJBOqJBT2VG RgpQHhY9HeuL9hVkSkJSX mGXKmN8TcoAMy LAudG285AIkaGvJ5XSSsg gFzS1RuSKCctQsiZrL3v7 X7Pj1UW2Y0ZA81ND92sBV jn9U1rWJ2X3An HVDsuixrxjdbgQL5LVAnA IWymY63Iv5uyEsnTk7wRZ XlTUT4BHOcbYRrJ3UvfN1 yOiAjMDAwMDAw A6JepZFxUWvgW103AUjmA fY0QHAqryTkO2UtRHWzlZ vaXoO2u9E7Oc6CGDh5JA1 9QZ52oSUjv2Z9 uKE2I9KxZJZopkxotdcjk HB4MWTtRDJkaK27Xh4vwC qaVg6vBUIaGDD0KDGbsYV bE0VndE0zVhUk ZZQtVKZbW8MenHWqZIqlB 345WKchEeM0SLQgkbReN9 OzWURmdIksXsA1x1X4Xa8 XUGFaPJ32AFR5 bGI5FL26XT03S9DnWebaf GFibGU+PHRhYmxlIHdpZH RoPScxMDAlJyBzdHlsZT0 dVk1jMNUgFMJd sRwtoKQrDtZys4ikCXXwU NtjME2hzOwsV9HhzNO2EU Gsy6l4Mj58G91vG7DvuNH +ORXhiAU0tQX6 lJ2mOwQuZrM3RZtsB442Z oYonPGdZesob2ibo6mgsS u6YtE0JFVqpuNddXctZBY 7x4KjMg16T12n IHdpZHRoPSIxNSUiIHZhb Wvair1quS4hSj4+PGNvbC K0yCY1hR4aGbCiFeT2DXw jP599HdRmtNPa Jndrh4ccw5zkyLa4IdYtV GKysnPacCglTCF9p3AjBk 79A4LcbKjob1HhIyw8lw2 3tAXap4F9tED0 J1SjBAWrrbnvjHDduWtdN D6pVXChwcmsGIPxhT0rQH KuH6v2EfNfQnM3DFoqF6K etuX4ZMQhvASq ZAmkUEJ8R67nh3Z3XSNoN SMfTVO6yBT1fF5jgNcyzf ogbGVmdDsgdmVydGljYWw vNCiuO155KDJa lYjzJTByvV2sJRNetUCxt JjkWQ5cJNMpjdbdNfDWJY 1JQGAkXJvMRAHVKOT9S5N kPww7TVCioNnf HA9jsZGoNWgsKw3iaDhgh TuwQS0bZTFrctscPBWsjJ 7tYVTybABftPfwDK9zCLJ ajapys702UuWu AEF4RYLyvWSoE8NauP3tO tWbJXRvMIUlC3UxyROkVB joU295FLsaFaY6OOMqfqO vR2TzYRZxoWtv PyR6h9H8Xb7lQK0aTX3gS KHmFO88JA40hUHxo5I1cX D8S7QiBTWugtmrfkahpVQ 5RTQxEFTexG29 yOSjEYltHw0hv0U2f670Y DIcNNMzzF68Ki5dxQucPJ YjjUAGjM9pnbcnh2ckcrj gIzAwMDAwMDt0 XBs3FGXclGdhIfUwPPB4T fC7XSC6qTEvmV3syYaklw rsdH4vVey+NTkgWWVhcnM 9P1MqWhq4PJYg vIlmPV3mfBZlCNhxHd1oc PbdeFcxOL9bZQYwzgaoQP XicV1iLCAsnJNbuHwwSA9 lWERukvkqd010 TxTbQYB7PXCbwIEvA6Tyh O5nEvCmEKGkFEQmP9GopV DnFElkY950MFxuRyV1UIR cfqVmF3ByEQWe oHkhMvI5i3D8Ro8MOD6in HT9D3JcWze9VMLctSrwMS 6kkPLfGNdxWs4qjDvzbKx mSZ8yTMInixvi YKPpqC2oESPrfATggJvfF H7mOKWdsmiqm921ZjDfQT L1XDLnrHHqV6UczR9uWbN pMVJoCPCmN9Cb tTNgOKboI851TUneAtH1L OWwtoYvJ7GhZAJcbGcnCm O9v9F7Ly3UdLMcOHFsJS4 9RV98AT65K9Me PjwvdGFibGU+PHRhYmxlI HdpZHRoPScxMDAlJyBzdH wlHN1uZa9yWEFxNLGlaUa lyFPtHlUmi1fa PTMfNNleNM0buLfzF9Rgp LV9DEAjv5q0Js89E68gL1 JvdXA+GEHvwHU4yNG4hY8 wLbFfOuJ4FUza L107TsHcfMOyAxfzz4icz 0jzaJi8LlChHYLbalHsnF nsIYT2c1UoRs06Q11fVTk pZHRoPSIyMCUi ECMhsNcctx9gnO0fLx5+P AGauSA2wJF9cM0bAdPjIp J7IFdwK011EdApzNFbEsw uN61tZ0PklXG+ EROnTjs6VAEupByyDS7yv ORtDNooYt1yCAU7YoMwYo DnKOdsY4MhGECvegqiarn igIJ2SMPnBXTq oV63Nv6tnQxxFz4jKXRpB DK9CUBuiNJvX2SphS9aRg UsYVKoTOAxP5XxvPGwFJl jE276EOrdBzM7 ZZRrczTbL8KjNBFehJbfE pV1r7D9Mf5BxZgpsONrGS 0dPpMiHGt6W9RbQaz9NGC ujPfvXN1baSVp UCcyYy0qtLaxdYvyNC9fI VHqearyr718MgYnn7yjVJ ZpjPBcYZpaTAS1A42vg2L 3LTFfAHNlNSR7 zSU6zP2myWubhgixkRVkc DsgdmVydGljYWwtYWxpZ2 34VEThyYfqRtYMPct9M9N pUkq4YYGbySim UK6hfVVkVBmfGj9yyKixa GmuSR0wLMCjzlzbx504Zw Lsf3wfHPZvbPUxNQxsWGA 5J05tb8M1LPUw OTDfEGG7uSS9wY1uxIaug jogbGVmdDsgdmVydGljYW vhTUpqQ776EWMykCpePo5 OTib8J9BeUkz8 INFttIvxIY0ecNJhRPwsV d9nnZyzmSiaCB5dZUCbqq eor681DiWgu2kdYQFrjKE mGIjnQUC3G79b y6Y3SIGfLOPfHAP6vSH9u H0yjWjgqrhiwEPddFencu YelWzcXUvoYPolT762YWL vcDsnPlBheWVy OjwvdGQ+UT28cz62F3HzU kdeJqm7UWJaFDM0fBD5sL 4wBJXlNZkap0S7aLM5H0G etfCuqo6jj8hi YXBz (more content not included)... Normal [facility] Coding Summary. CD:[id number] G h0bWw+PGhlYWQ+XD0XWYV yR55yfCMxlH5CJ5uYKC8Y HOQZNVHEEE4PAN4lbKJ5L OqwK8ToweBh IoryxHXlKH61RVp4XXB8z SsbKTskoR2rdMWpB1l5Md DfAC88kZ22AYmzGGFgUtV 3LjZpbjsgbWFy N3gbFkOgsQXoMcc+PHRhY mxlIHdpZHRoPScxMDAlJy BihGtpGS9pEh1tOUWgZKM vbGxhcHNlOiBj x7mjYFHcTUdfUE8qhKlfM 7YizWT5IUFea3l4Ll52mF I+ZJKcMPJ4rKziQCzbj87 5RrWaf9mfSOZ1 nASlRYqwVAX4K26mv9B0S YWsMBEkPMA1eBE5jC9vqR wjrjykN5IulKNzHpG5XEN 4aUApqX0ziGyl grriqF9qPac+R99OCJ9GE IBKPD0NMlo4D4DeGfugiG I+DF25JTNiEW35xEBboHS mp7ohhVi9OnJv QODlZAQ6lWprSYogc4SkR ZMcU35qcPIdj1E9LBPmmF mypWSyTrJvyQZ4fW1xWPv bwevsb0vssmnh Dawoh6zgej69sO53X51dU PhzRWPnPXI8KBQyFVUxjU rzim5cfY9lTg8+BGqqu8k si5cjmLm7JbQe NVPpnpRjpNbcZIC0c1EcP x03B2WjlAjez5NfJmp8xw 80kTZcy4P4nZA5GMpvIZG uqT8nWLzqWeV1 BYAgNfMkvK36qEGcCCfjT y2mhEvthFogDD7kGABden vuXEJklI7gDIXinYZxbCc dXG0pTUVztpdb g691AmMrNNG6EEDtrYQqN 8SzoB2xQhPxULViQOWtW3 WihJCqTXbnC275OWbuIjI 5PTThpdMaQ5Fg KNWtnSmcOqW7f3N1Aa0Hn 0RccctlJXD0CTgtFXY6Kw N4EvNdHxG9Y9ArCxw7OEZ uoQpeSL4kP1Cu JKCkfhcqrvapmHX2DBMwX YDsqC67zNDaDQjrLi5vb2 P7x485GSNtYMJdgT15Ho7 udDogMTBwdCBU mX2bdguoo8uxehfoNsCaE ZXhYAa4ILx4CFNdjKbdYz AhJYR6VzW1CYH6cHSeiS3 xvKhnkkcuwS2c Oyc+W70thP6zEZL6KLE6t ghwIKWefjIdNL82PE40P0 RyPjwvdGFibGU+PGRpdiB swMmgCT5cFcUy z7bzk6NkWJbrG4XeGFRkE DywVre8NTCbSRV2vAM2kD 5wCJIqUJawa3F8sBQ8U4C ijhKthw7xw4li LMCnVCavF51pqXZkh2L9R ELmjIJ9GBZthSnjPoBlmT 93Oyc+PWFwzQvjf4AvKds bs7gsz5pacOj3 CkZuKIKpzeSqjGrlKNN3e 1TcUv55A34lDVriCPViTN YtUUOqMFVygLgmze3wtQ5 wIi8+PGNvbCB3 kAR9hR8lJZKyThJ3XLsfI 260PeWenOGjVuxjh9lpn1 izjRl8MsQoWADzllAohVx yTLH7n9ViKo73 D50kTUwkZQIoSZSsHFOmE IFmmDmfpp9ufH7wRl1+PC 4zz6eris52uE42uJB+PHR uZFP8lCvaATmu BVWtzV9fMQilXcD3DQTfD jTiiY07wXAhUIldGq1ecM zyjDfqIQ5lVLIylvlej29 3NgFoz4pdRZBm wBPfQOuaUEO4E20al7K6H FGpQKTzQOF5yML8xR2yrC lnbjogbGVmdDsgdmVydGl iSSnvWScyE739 IHRvcDsnPlBhdGllbnQgT kZaKRh6P0XcCfb8HWUqvJ fzUD5uuCYgMTenZf6puLr dkLiuGE3oIOZc zwwvt652RtNee3pwSFXck HTbIBteCNH7B09om3T1SR ZuCAKhIGD4lUG3rS1hpZh nbjogbGVmdDsg gkBqnBvaILrnLWtuY205N HRvcDsnPkJpcnRoIERhdG Z5WB69JF19xPCpj6L0jUQ 8T3CcKAOirlun zrxwqAU3AUYrDVPyaE85Q x4gwKdtZm9oRYIzKLO9OJ PszTUgE2GltA5dNiIfMEM iJATcM0CxyGYa TCiuR386QSwkEzG2YKGny hPlM1RpFPXdmKliKmW5y5 O0Ey9QT5O9LM57AG68iLE vn5G3bEB2J6Yf PAVdkuplvgskjFR2NZBkI NFptX10Ip1gpIyeWc2wHH AbERT2QCCduUZiY7RkgN0 yOiAjMDAwMDAw B0LcuNJnVIrjM849IQdrA dM7SYFmncSyF9NaWZXuhL oiWuS1g8Q8Te3PVCr2AO6 3QE21dWIre1S6 kMA0K6YnUARwdrfogjcim LJ9KIMcHIVhpJ28Jq8xeV wiJc2eLDZqHHH3QHOufEY iA6QuuV8sLwWp CPVbEVOkX4NhtZWnNStkI 448COieVrN8VDBgacQpX6 MxBCIpqZlpTaN1l1G5Xf2 YUYWcGK27YRW4 cFC3DE38XD06Q3BqPbndo GFibGU+PHRhYmxlIHdpZH RoPScxMDAlJyBzdHlsZT0 iAo8tZPTjFNKw gDznlUWiMzQzd1ebUJEwX NbtMS5wiCqaU8LbvGX0CT Gih2u5Vy23D50oB1IgnUS +UDRslSE5nAB1 kC5eJmCiDvX1AKvrP522D lQiwMBhKscjr3veh6psoE g4FiK1XXBnybSmwLebKFZ 0w1GcZr57I44w IHdpZHRoPSIxNSUiIHZhb Kghao1icG6sYi3+PGNvbC K3wZE2dG1gWvDqTcL5WYi oI335HnFzqOFo Anabw2cvy8xupXd0SeOvK DSoudHsbXfiIEY8l8IgUe 39I3GvdUagw7DeKhe9eo9 5mRWjr6H7bFP2 I5ReDBFpbujvnJCurGtrJ M8eYKUodznkNHTktD5pPC XvG3g6XhEtNcK0IKklB5D ddiP3KCQifAFs LGnrQET5F73mm4S1HRZuP LGoSRA4gLL6xM9ddGpicm ogbGVmdDsgdmVydGljYWw tJRiqN176HUNm lFzaTOLoiC4tNSOykOSll FdtNA3aYADuujdmJbQYVU 1SATQbJTuUOLFZKKH2G5W yBsg3FKWnxEjd DN0pcGLcHLpkFe2vwJkgn VttXV5rXRYxizhvMCEtoM 5iHPYdzWHgjIicMY8hWOK uqages453MaCw RDX1MXJuiUTvM9IilJ2yX jZqCUUrLOEkD2UdmSMpAB diH123BObhLnT1BQMirwJ wZ4AvGMJdjXyx KpV5r1I5Ws7iTI1lKE4yT TUoCI09ZT59oBVwa2B7cX W9C3HuYKElfqjbruigqWN 4YGYqDFNrnD32 gXFcSZlaMu4pq1J9i184Y ORfJTLwhK42Hh5wrHeqEQ JmbUOJyL3lhvodd2sackq gIzAwMDAwMDt0 OBl2FQPmlQkbHcTqTLO6V wQ5DMD6uMStxG4ngPeexc givR0hAij+NTkgWWVhcnM 1J4SsBdw6ERTr sPnqYX0yxEJzTUozDs4sm RlujYenIM2sYYSadxmpQC WifY0oQHQrqDCjnYtlTG8 rWXAvsnpqf269 LmDwHBO3ZFUugUCvQ5Pgr Z4tSaVkHAHbERKdD3RqsR VaANkqP674BIdsNlG2XNR vofBwI1CsXMHw fHtoVuP9z6C0Ql0JGC7ch LL1V8QvJpo8IDAwxSprXZ 1nqGElMXhzSn4qsJmcbNp eFL2hDNKhyifm BIUotI7aVKCzpMYlfJjdV I7yYJUxpulqr702EzVoME S2MIZveOByE1QriA7tYyF qWRSuWEDmF5Wx vYWtVGsfH068NVdnQbG3U AZnevQdR5SvYSNfjQmuAi Z9k0L5Xx3CuLMsMJSzTN6 0IY35NR00J2Ol PjwvdGFibGU+PHRhYmxlI HdpZHRoPScxMDAlJyBzdH ciMO5rFq4xFXGuYMHevFn wePKrYzWdb1lp AZZuEIxjQU5uxEujU9Xiu SK6GJIyw1x7Qu74N55jE3 JvdXA+FAVzdSM8eIX1pA6 oTqTnBpK4ONxq L470WjIjyTAaJcpvz9axs 8rpqLb4UuBhHNOgteEdqB dlBXY8b3KoTa77Z46tYWn pZHRoPSIyMCUi EQFvrHeyaf5szP8pDy0+P EBloGL2eSM4pE5qWpNyIx M3HDpaG492MpSowXDmVmh aI22zZ9RhfJF+ DBEeKbu9CURhhXgsID0ko ABcAKqcVl2oFKO6LaYoBz YyUQtsS6UtQJPtpdldxmz rkIX2RNVdNRVz sH26Bo1wkSrmOl0xBERoM ZO8DRQtlBRnP5QdnN6zIq CfZASxKVJbV7DbjYLcRZl uC717REwgHyT3 CNHbmoLqO2WhXIBkcToaD uD6r8O6Og8QkKczgOIlMN 6rEcVlQHr3R2MrOdp4ILQ puYkfGR4ybFNo IQpzGw8duRmisAayAC5lR MLciduuj535UzRzl0aoBC DeuDSqFAdlAUW4O52zu0C 9ZOPqHPKkNLY0 eNP7wZ5pqCqxrplfzZSlf DsgdmVydGljYWwtYWxpZ2 51OGFqtDyvHzIZEtz4C4Y lIdn3QMIfdEyd IN9sdJFvSChrEn5ipOpym JdsSL1vLWXwjzsyz894Lh Ubf7ckDSRrjEKrKBjpCEG 9F91yg5N3OKTn DMWgAKU3zYL0rP2bgXtov jogbGVmdDsgdmVydGljYW xbVZiiJ046SPCumArnTn7 UGqk8H7ZjKvw5 ABMdqLclGI4ojBIrWPykQ e6fhXmapJsvFK2wRZHjkb mje241XsEqn7vbSNLefRK pXIetZOG7H86p u8L8CHUyHSEbUVU9fTX1w S5hcQvnurnebGRdxCqkgr LduIbgBOtvLJcvX774AIX vcDsnPlBheWVy OjwvdGQ+RU88zl89G7IbB vajFws0EYWbJQP7cWE8xJ 4nYYZvDOmod5N8mVO4I6F wvvMfiv3bs9ye YXBz (more content not included)... [facility] Coding Summary.on 11-01-2021 Coding Summary. CD:[id number] G h0bWw+PGhlYWQ+ZY0IZJN fH07nxMNqbX8IY8yDKR5T KYWZUMOGEZ1JUL8hyNF8F YjvE4KvjyTx FfqokSXzIM68WRl4AUB8c RaxQDpemP3xeZQvD1v6Qa UfQX23gN19JCmkRTUtHjH 3LjZpbjsgbWFy K8cxLqHmtZQiHig+PHRhY mxlIHdpZHRoPScxMDAlJy PdrIjdYS5aUh6cAXEwXIW vbGxhcHNlOiBj q6azICNkXWypYW2viChwA 3LltEH6VANbu5b0Qh83pO I+ZLOlDHL3mHjsITuxg61 4SmMvg5muEMR5 eJFnICicXIU5W16ui3L3Q HKbYCXqSZI8rOA9fS3asS qnktgvN0IpiWDrZtJ4CWR 4uDEkgA1qeHml uzamcG1tMly+N93UWK4TW EKALF9FCgx7U6VmAmqnaR I+YK19VFGvDJ22oITfyDJ qb9fqcHx5MdUq PPJmXVH0fDtoETkwo9FcD JKxT34uqSVmu9N6BAWgjU vuuBOvJyDniWC8tD5dMZc xtngrg0cjhznv Ymbel4tiqr35jH52U16iQ BbrMPWsIFF2EPQqJQOhxQ icln6xcZ0uAr3+PSsir2q cs1rpnVz4WuTk HLCvbpDuiZiiQPL4o4CrM t30R5UoiMmqc7KdGvu6cf 46lHCwr7O3rLZ6VXcnQZA lpV5aCXliQpF0 OWLgTcHajQ69wSUtKJksG l9dlWwxwMasVL3pUCIozu flEHLniA9zDPDoqMFqqRf xUQ6oCPAjljpf g024YjOlXCQ5PLVtkCIxF 1XplX1kCfLyDPYeSNTfK2 DvpVOtVNrsL245YAdfFaK 4OWRtpbNjQ5Jb PSPybEznEmV9g6I5Gx3Pb 4MjbzhgYQR8RBcpZUKyLl Z9EgRsDfB7Z4QpAzp1LON bbAajQJ8rE6Mt VCJushimzagzgDE2IIVeG XXnpG48pPBkBPqaCn7jx2 K6b337IASpEPBrbE79Fl3 udDogMTBwdCBU xG3lytncq5zppfccRdAyP VQkKMe9RAw9XBLxvLpjWn EqQHE4XxI2WGG2dELxeR1 wuPuirmlyiD7e Oyc+Y77yfT7mUKC6GVU8d nwaZJNppuDlLC84TN08N6 RyPjwvdGFibGU+PGRpdiB pyNjkHY6pAlVg q5mrf1TdPHprZ8CfFMLvH HxcYzk0JOBqEXZ4kMZ9zJ 0fAANlBJttr0A8hRH6Q2J dpjYect6pb7rn VKYjQFazP05wfGErz0S1L QRqsYC3HSRrrWljLvEnuR 93Oyc+LEHwxOykk0CkGwd my9hrz8ggoNk7 FqPuAETaioTnzAkxGPB2a 6ZiWp15Z03tXWdaFWQvOB YkNWSbKHEltQocfj5xnH0 wIi8+PGNvbCB3 eNP9fB1tUQRxWvF1GWenJ 441CzQwgHXhFbquc6bcj5 aluFb1TcSvREDgmxScyQr vGLH2x4AqVt57 A22nRYsgZVWiKTViRBEbU HKxcMhvlz0kzF2iRw5+PC 2ld5vdse83xE52cLH+PHR vPWN5rVroYXld OUCmnN8zXYluBoB3ONQtJ dBcrP11sSLsACkbUu1lbY iemMiiTS8lQHVsfdrnr20 1VwPux6oeJIEc yREkGKtkCAQ9C23gf8K9W KAjIAHqAIO0zXE3pI0gyT lnbjogbGVmdDsgdmVydGl iIKfzKEdaB819 IHRvcDsnPlBhdGllbnQgT cKmMLg3R6XqIti0EZOzaI fiRK8wsRIzDGjcYf6rnHl qcEqgEO5fYTRi antny320YxAso5snAGXub KEzEAvcKVN8I51do5Z6YJ CiKHJpSWO1zTC4xX1xpQu nbjogbGVmdDsg jqOamTnhJPsjUVzaQ565J HRvcDsnPkJpcnRoIERhdG S5TN46YP26pDYfv7R0hQO 4Y3WnAVTulkru ygrmnSM9DMKzECMcaN33W l5juFzjUb5oJZSaSXG3BH WbkJTdT8NylT4hXmCoRNG zJFEkO2QkdACd HBdaG664TBtrPjK0KBPlo lZzS4IcEGZboPmwKcM0u4 B5Pk3VH7W1NH16UD21sIJ cd4V4qTB9S3Kg DIRgqewdqstueWV6QIWxG EIdoO96Ib4wmBvvUf0jWL ZtHXB9LIDnaLBeQ1NpwB9 yOiAjMDAwMDAw M9TiyTRvJKcpA307TCudP fE9KHDizpSpE5PnYFRvtG jbPhS8l2Z3Op8FHOa0LI3 3RF52dASyk6N2 gRX5B7FkHSTzaedfkdhrb GM0HACpPTWrpD25Ri4yoS qgRo6nDITvDHG1VBXnqVT fK8DgbF9rZwIq XYQpXZFkD1HevLRiZZmqU 939LFrtXoK3ATTukbVqI6 XgKTLwvIbkJaR7c0T3Np0 CRTYxTX61VBZ4 hFV6UH34TQ71S4ZhXhgce GFibGU+PHRhYmxlIHdpZH RoPScxMDAlJyBzdHlsZT0 jTc3sGJGtVGXz rRitxKZkFjBas1itLBPsC MkzYQ0zyNktL9ZocAF2LT Vqh9r2Mm61L18mM4YulPG +QXYalOD9cHK8 aW2qNlHtZmI7MJhnB308Q bKeiIDjZmzyo1cen1lqzT q5OuF2QDLhocGnqNevEQU 9a9UvQk80O38u IHdpZHRoPSIxNSUiIHZhb Kkqzt6ttL8mTm7+PGNvbC F6yAX7wB1bMxRzEuM6ATk nW041AbDeoJXw Moelc9wrw5xsaGi0ZtMsO IOtpgTduAqlBJB6n4VnDr 76M7NpyWyih3ZwNrn5bv8 2rEXnl5W1nZO2 M4YsZRSjyncxhQFrdPkaV K7oYIYkyvxdAKNlwV7iGX FkT0a9BpNiXxL5LMmtF8X bokK9NMOnjLVz YChiPEX4G51go1G0HMIkL PPnXNM9yTT0vX8zvLdsgy ogbGVmdDsgdmVydGljYWw gEBzoQ656VWGj sYdpBKHijM3qANAjpDNau RnjOM9xUGOwemnkSlKFEG 3KLWBbVPzDBXZDAJV6Q0P vLei5ENLvwWfe XG0ihBNlTNzxVn6luIbve AyjVL6nNRQixuivZUXagF 2xMNYdlPRhzNkhVS6pUDE tqhoel589TnLa NOH0ULBroOYyB4RktO2wM tAoBFJnXSVpL3VtwVAxNZ gfO672GAxtScT6VTQlkoM dO1JfYBRaeDim UfQ4l2O3Ja6pPB7uLL4rX PNyWQ53MZ59cZZyb4K1cZ H7Z8XbJZOppqtrbszovHD 2TNVrNQGkjC53 qXDmELqqNl1vm4M5j623M RFzGDTtfD26Ws3znZgcAC DnjPNAiE1nmcgxr5yymgz gIzAwMDAwMDt0 YOh1MEEqlYgtVdDtDEM7X yW4EEC7jKCndJ5bkFrmtl xsuX2ySud+NTkgWWVhcnM 6S9VxChv3TSRk iJfoOB2wmFYrAFzdGo1ly VzhpLfwDY8oFSBgqsbsDR WzhF4yVRHlqCThbFjjNM6 aNSHffpeil551 YrVtRLB6ZMTxdNMaU4Zqr X9uRiKgNJKqHTKuU9AwaA DdSXwsW083CRfgVdC9LDR rodHnV4TrHFPy oKkrAlG4i9Y1Ac5KMY1my VX9O1BpTgt0JYFbtDwpLH 8szKQyWBkcQe9efIrliEg eZW0wNABlojhw GCIlwS4pKAMwhYQcsGgqT F9qVTHltnoso289WmIcTR P1ZDMmoSAmV3GayU5tGgL aMRUcDOGeH1Mp xEXmBYspS664XXvoArQ0I DPfwpFeB3UwWNRocQxfMj B9p7B5Rk2KbDKfTLSaJY0 4SM68LX53R6Oy PjwvdGFibGU+PHRhYmxlI HdpZHRoPScxMDAlJyBzdH fxAO5lHz7kOVVhVITbgZn lkWAzVfNox9ti BWQeJJgfDK8giZpiG2Xbn OR2MGKux6n4Ig92I76tP2 JvdXA+UKRxePH8oVO3vN8 mLaMsSmS3AOfe B707EuVmoQKfIgkqo3aqp 8iusWn2HoYzICKyezJkqS ueCVX2a3CuJp96V07qBQt pZHRoPSIyMCUi TNAvfBdbwr5mwM9eYc0+P GEubSB9mMV9tD1nYsAiCy T4GXhbJ235YsXlwZZgBko oB44dJ5XjmRF+ VDVmSmr8XWGwcQljPG6pw TZgTQzxMs9iWOM0PfStNl MwFObbX1BdJOPenlcjtfv emAU8LSJgGMMb sH23Pw4ajKwgJu2sXUUqN UR2SOItuUUbB0GdfL2oMr UaTMKjHOXjQ2ChmQDpGCw jW457NKrgOgV7 GBPeddAqX0PsERPldKrnW eL6d5A3Xy6FbTwhmZNmSW 3lRoZeXOs3T1OxCty2ESI elHehUX6gzRAw XHmoTu6upXoziBgySK7uX JAxdfudf056ZfBag2qrND ApfSCgDZkiZEX0Y16bw3C 6TMTvVSIrHBY1 tQJ2zD1izBwdfjddiNCkz DsgdmVydGljYWwtYWxpZ2 39UGVqnLhfIgSCVip1R1Q yNin5KQLrgJrb GI3qlQIdNRjbQs5xmLnfg CysAJ6zSESegvjgx000Ff Ndi4xbSAYgsRXsEXqyLSK 9B28rq9O8HQCq YMIwAXC8dDN9jB9ibQuhf jogbGVmdDsgdmVydGljYW veVFmfD428NGDbtXriDd2 DEmt9K2YdGmb1 VYVudVijFU3icGQxWZtjG z1mjSvwqRnsYH8pJGXjap fvk682ImAdw0mxNPCsiNJ bDPmpXQY1U38e q5W5JFDkZFOySLL6aJQ9w X5aoYxmqnkmfHDuwLjcid EepKpvJBxyZYepX758QPA vcDsnPlBheWVy OjwvdGQ+CD25zv33U0VgK iccKey4PHTeGMI3bVU9tA 5lBUYoPOcdr7J1tBA0E8K wmcFyrf0yi8nl YXBz (more content not included)... Normal [facility] XR Spine Cervical 2 or 3 Vie wson 11-01-2021 XR Spine Cervical 2 or 3 Views Exam Date/Time: 10/31/2021 11:25 EDT Reason for Exam: M47.12 Report IMPRESSION: POST SURGICAL CHANGES. CLINICAL HISTORY: M47.12. COMPARISON: 10/19/2021. COMMENT: 3 views. There are metallic spacer prostheses within the C5-C6 and C6-C7 interspaces, with screws extending into the vertebral bodies. There is mild hypertrophic spurring of vertebral bodies at C4-C5. The vertebral bodies are maintained in height. There is minimal anterolisthesis at C3-C4 and C4-C5. FINAL REPORT Dictated: 11/01/2021 3:16 pm Cameron Olivares M.D. Signed (Electronic Signature): 11/01/2021 3:16 pm Signed by: Cameron Olivares M.D. Transcribed by: CAITY Technologist: SULY [facility] Consent for Treatmenton 10-05 Consent for Treatment [id number]# 1.00CD:127 [facility] Consent for Treatment [id number]#1 .00CD:127 [facility] Consultation Noteon 11-01-19 Consultation Note Patient: ELISA GOMES Age: 61 years Sex: Female : 1960 Associated Diagnoses: None Author: Sophy Rush PA-C Subjective She is 2 weeks postop from C5-6 and C6-7 ACDF She still has some soreness in her neck-posterior. She states that the pharmacy told her that the muscle relaxer was written wrong and they would not fill it. She has just been using what she has at home. She did not let us know. Nausea better Swallowing also better Able to move around She did not use much of the pain medication. At this time she complains of neck pain, posterior shoulder blade pain, left arm pain, lower back pain, leg pain, and foot pain. She rates it a 5/10 but she states that she is :better than the last time I saw her Health Status Allergies: Allergic Reactions (Selected) Severity Not Documented Penicillin- Hives. Sulfa drugs- Hives. Tape- Rash. Current medications: (Selected) Prescriptions Prescribed tiZANidine 4 mg Tab: 4 mg = 1 tab(s), Oral, BID, PRN Spasm, to be used in the AM and afternoon if needed. She uses 8mg at night she already has, # 60 tab(s), Refills(s) 0, Pharmacy: [facility]/pharmacy #[id number], 166.8, cm, 10/11/21 14:46:00 EST, Height/Length Dosing, 84.8, kg, 03/0... Documented Medications Documented Fish Oil: 1,200 mg, Oral, Daily, Refill(s) 0, Prophylaxis Fosamax 70 mg oral tablet: 70 mg = 1 tab(s), Oral, qWeek, Refills(s) 0 Metoprolol succinate 100 mg ER Tablet: 100 mg, Oral, BID, High blood pressure Multivitamin, Therapeutic w/ Minerals: 1 tab(s), Oral, Daily, Prophylaxis Vitamin C 1000 mg oral tablet: 1,000 mg = 1 tab(s), Oral, Daily, Prophylaxis Vitamin D3 5000 intl units oral tab: 125 mcg = 1 tab(s), Oral, Daily, Refills(s) 0, Prophylaxis acyclovir 800 mg Tab: TAKE 1 TABLET BY MOUTH DAILY, Other (see comment) alprazolam 0.25 mg Tab: 0.25 mg = 1 tab(s), Oral, TID, PRN as needed for anxiety, TAKE 1/2 TO 1 TABLET BY MOUTH THREE TIMES DAILY NEEDED aspirin 81 mg Oral EC Tab: 81 mg = 1 tab(s), Oral, Daily, Blood Thinner biotin 1000 mcg oral tablet: 1,000 mcg = 1 tab(s), Oral, Daily, Prophylaxis fluticasone 0.05 mg/inh Nasal [place]: 1 spray(s), Nasal, Daily, Refill(s) 0, Allergy symptoms gabapentin 300 mg Cap: 300 mg = 1 cap(s), Oral, BID, TAKE 1 CAPSULE BY MOUTH TWICE DAILY, Pain lisinopril 40 mg Tab: 40 mg = 1 tab(s), Oral, Daily, High blood pressure metformin 500 mg oral tablet: 500 mg = 1 tab(s), Oral, BID, Refills(s) 0, Blood glucose omeprazole: 40 mg, Daily, Refills(s) 0, Control of stomach acid pravastatin 20 mg Tab: 20 mg = 1 tab(s), Oral, Once a day (at bedtime), High cholesterol tiZANidine 4 mg Tab: 8 mg = 2 tab(s), Oral, Bedtime, PRN Spasm, Refills(s) 0 Problem list: All Problems Palpitations / SNOMED CT 611272548 / Confirmed 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 / Confirmed Hypertension / SNOMED CT 4490890497 / Confirmed Anxiety / SNOMED CT 42404689 / Confirmed Lumbar disc disease / SNOMED CT 0806698561 / Confirmed Lumbar radiculopathy / SNOMED CT 455963470 / Confirmed Chronic gastritis / SNOMED CT 06686710 / Confirmed Migraines / SNOMED CT 11590424 / Confirmed Insomnia / SNOMED CT 432795249 / Confirmed Colon polyp / SNOMED CT 940771818 / Confirmed Chronic leg pain / SNOMED CT 123102136 / Confirmed Laxative abuse / SNOMED CT 725233698 / Confirmed Chronic cluster headache / SNOMED CT 890145605 / Confirmed Vitamin D deficiency / SNOMED CT 59807124 / Confirmed Hyperlipemia / SNOMED CT 29812919 / Confirmed Osteoporosis / SNOMED CT 389333706 / Confirmed 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 Well fitting. HEENT: Normocephalic, normal hearing, normal voice Heart and lungs: Unlabored respirations. No edema. Musculoskeletal: Normal range of motion of the upper and lower extremities Skin cervical incision is healing well. Steri-Strips were removed without difficulty Incision was cleaned off and the suture tails were cut without problem Cervical collar was replaced Results Review Cervical x-ray. Done today. No report. Status post C5-6 and C6-7 ACDF. Instrumentation all in good position. Impression and Plan Patient is a 61-year-old female who is 2 weeks postop from C5-6 and C6-7 ACDF She is overall doing fairly well She has some posterior neck pain that she states the muscle relaxer does help. She did n (more content not included)... Normal [facility] Comment on above: Result Comment: Elec tronically Signed By: Sophy Rush PA-C\.br\Date and Time Signed: 10/31/21 12:26 EDT\.br\Electronically Co-Signed By: Derick Meza MD\.br\Date and Time Co-Signed: 11/01/21 07:42 EDT Office/Clinic Note-Physician on 10-31-2021 Office/Clinic Note-Physician [id number]# 1.00CD:127 Normal [facility] Orders Officeon 10-31-2021 Orders Office [id number]# 1.00CD:127 [facility] Physician Orderon 10-31-2021 Physician Order [id number]# 1.00CD:127 [facility] Orders Officeon 10-28-2021 Orders Office [id number]#1. 00CD:127 [facility] IntraOperative Documentson 0 10-25-2021 IntraOperative Documents [id number]# 1.00CD:127 Normal [facility] Vital Signs Date Time Vital Sign Value Performing Clinician Ruba miller 10-10-2022 13:14-0500 Diastolic blood pressure 68 mm[Hg] Sophy [employer] [facility] 10-10-2022 13:14-0500 Heart rate 62 /min [facility] [employer] [facility] 10-10-2022 13:14-0500 Mean blood pressure 90 mm[Hg] Sophy [employer] [facility] 10-10-2022 13:14-0500 Respiratory rate 12 /min [facility] [employer] [facility] 10-10-2022 13:14-0500 Systolic blood pressure 135 mm[Hg] Sophy [employer] [facility] 08-22-2022 13:06-0500 Diastolic blood pressure 61 mm[Hg] Eddi Sumit [facility] 08-22-2022 13:06-0500 Heart rate 65 /min Eddi Sumit [facility] 08-22-2022 13:06-0500 Mean blood pressure 76 mm[Hg] Eddi Sumit [facility] 08-22-2022 13:06-0500 Respiratory rate 16 /min Eddi Sumit [facility] 08-22-2022 13:06-0500 Systolic blood pressure 106 mm[Hg] Eddi Sumit [facility] 07-11-2022 13:57-0500 Diastolic blood pressure 76 mm[Hg] Eddi Sumit [facility] 07-11-2022 13:57-0500 Heart rate 77 /min Eddi Arana [facility] 07-11-2022 13:57-0500 Mean blood pressure 99 mm[Hg] Eddi Arana [facility] 07-11-2022 13:57-0500 Respiratory rate 16 /min Eddi Arana [facility] 07-11-2022 13:57-0500 Systolic blood pressure 146 mm[Hg] Eddi Arana [facility] 06-20-2022 12:30-0500 Diastolic blood pressure 75 mm[Hg] Sophy [employer] [facility] 06-20-2022 12:30-0500 Heart rate 57 /min Sophy [employer] [facility] 06-20-2022 12:30-0500 Mean blood pressure 94 mm[Hg] Sophy [employer] [facility] 06-20-2022 12:30-0500 Respiratory rate 12 /min Sophy [employer] [facility] 06-20-2022 12:30-0500 Systolic blood pressure 133 mm[Hg] Sophy [employer] [facility] 03-28-2022 12:43-0400 Diastolic blood pressure 69 mm[Hg] Sophy [employer] [facility] 03-28-2022 12:43-0400 Heart rate 51 /min Osphy [employer] [facility] 03-28-2022 12:43-0400 Respiratory rate 18 /min Sophy [employer] [facility] 03-28-2022 12:43-0400 Systolic blood pressure 135 mm[Hg] Sophy [employer] [facility] 12-20-2021 12:28-0400 Diastolic blood pressure 79 mm[Hg] Sophy Rush [facility] 12-20-2021 12:28-0400 Heart rate 51 /min Sophy Rush [facility] 12-20-2021 12:28-0400 Mean blood pressure 97 mm[Hg] Sophy Rush [facility] 12-20-2021 12:28-0400 Respiratory rate 18 /min Sophy Rush [facility] 12-20-2021 12:28-0400 Systolic blood pressure 134 mm[Hg] Sophy Rush [facility] Encounters Encounter Date Encounter Type Care Provider Facility Start: 10-10-2022 End: 10-11-2022 ambulatory Derick Meza Facility:[facility] Start: 10-10-2022 End: 10-10-2022 Patient encounter procedure Sophy Rush [facility] Start: 08-30-2022 Encounter for genera l adult medical examination without abnormal findings DR EMI FRIEDMAN . [facility] Start: 08-26-2022 End: 08-27-[address] EMI FRIEDMAN . Facility: Start: 08-26-2022 End: 08-27-2022 Encounter for general adult medical examination without abnormal findings DR EMI FRIEDMAN . Facility: Start: 08-22-2022 End: 08-23-2022 ambulatory Emi Friedman Facility:[facility] Start: 08-22-2022 End: 08-22-2022 Pain Management Eddi Arana [facility] Start: 08-01-2022 End: 08-02-2022 ambulatory Eddi Arana Facility:[facility] Start: 07-11-2022 End: 07-12-2022 ambulatory XXXX NONE Facility:[facility] Start: 07-11-2022 End: 07-11-2022 Pain Management Eddi Arana [facility] Start: 06-27-2022 End: 06-27-[address] YASMINE DAMON . Facility:[facility] Start: 06-27-2022 End: 06-28-[address] EMI FRIEDMAN . Facility: Start: 06-20-2022 End: 06-21-2022 ambulatory Derick Amita Meza Facility:[facility] Start: 06-20-2022 End: 06-20-2022 Patient encounter procedure Sophy Rush [facility] Start: 05-04-2022 End: 05-05-2022 ambulatory Sophy Rush Facility:[facility] Start: 05-04-2022 End: 05-04-2022 Patient encounter procedure Sophy Rush [facility] Start: 04-20-2022 End: 04-21-[address] EMI FRIEDMAN . Facility: Start: 04-04-2022 End: 04-05-[address] EMI FRIEDMAN . Facility: Start: 03-28-2022 End: 03-29-2022 ambulatory Derickjovon Meza Facility:[facility] Start: 03-28-2022 End: 03-29-2022 ambulatory Derick Amita Derrick Facility:[facility] Start: 03-28-2022 End: 03-28-2022 Patient encounter procedure Sophy Rush [facility] Start: 12-20-2021 End: 12-21-2021 ambulatory Emi Friedman Facility:[facility] Start: 12-20-2021 End: 12-20-2021 Patient encounter procedure Sophy Rush [facility] Start: 12-08-[address] EMI FRIEDMAN . Facili ty:[facility] Start: 10-31-2021 End: 11-01-2021 ambulatory XXXX NONE Facility:[facility] Procedures Date Procedure Procedure Detail Performing Clinician Start: 08-01-2022 Epidural injection of lumbar spine using fluoroscopic guidance Eddi Arana Comment on above: L5-S1 CHRISTY- 0% relief Start: 10-18-2021 Cervical arthrodesis [employer] Start: 06-13-2021 Epidural injection of cervical spine using fluoroscopic guidance S[facility] [employer] Comment on above: C7/T1 CHRISTY-minimal relief Start: 05-26-2020 Esophagogastroduodenoscopy Sophy [facility] Start: 05-06-2020 Hemorrhoidectomy Sophy [employer] Application of pelvic traction Sophy [employer] Comment on above: for 8 weeks in 1988 for left broken pelv ic bone Aspiration of ovarian cyst A phillip [employer] Comment on above: 1987 Bone structure of left navicular [facility] Comment on above: 2019 removal of pieces of broken bones Deviated nasal septum (disorder) [facility] Comment on above: 2003 Excision of lesion of skin A phillip [facility] Hysterectomy [facility] Comment on above: 1993 Injury of right ankle [facility] Comment on above: Dr Fields Ligation of fallopian tube A phillip [employer] [facility] Comment on above: 1984 Operation on lymph node Fredy marianne [facility] Reduction mammoplasty [facility] Comment on above: 1989 Structure of left sh oulder region (body structure) [facility] Comment on above: 1987 Immunizations Immunization Date Immunization Notes Care Provider Catrina michael 12-01-2020 SARS-CoV-2 (COVID-19 ) Ad26 vaccine, recombinant [facility] 11-10-2020 SARS-CoV-2 (COVID-19 ) Ad26 vaccine, recombinant [facility] Payers Date Payer Category Payer Unknown [id number] 1960 Unknown [id number] 2.16.8 40.1.522554.3.579.2. 1962 Unknown [id number] 2.16.8 40.1.488278.3.579.2. 1962 Unknown [id number] 2.16.8 40.1.765523.3.579.2. 1962 Unknown [id number] 2.16.8 40.1.389294.3.579.2. 1962 Unknown [id number] 2.16.8 40.1.888939.3.579.2. 1962 Unknown [id number] 2.16.8 40.1.126896.3.579.2. 1962 Unknown [id number] 2.16.8 40.1.007968.3.579.2. 1962 Unknown [id number] 2.16.8 40.1.737342.3.579.2. 1962 Unknown [id number] 2.16.8 40.1.247497.3.579.2. 1962 Unknown [id number] 2.16.8 40.1.479949.3.579.2. 1962 Unknown [id number] 2.16.8 40.1.985881.3.579.2. 1962 Unknown [id number] 2.16.8 40.1.859824.3.579.2. 1962 Unknown [id number] 2.16.8 40.1.104305.3.579.2. 1962 Unknown [id number] 2.16.8 40.1.176470.3.579.2 1962 Unknown [id number] 2.16.8 40.1.411190.3.579.2.727 1962 Unknown [id number] 2.16.84 0.1.364147.3.579.2.593 1962 Unknown [id number] 2.16.84 0.1.749960.3.579.2.593 1962 Unknown [id number] 2.16.84 0.1.729522.3.579.2.593 1962 Unknown [id number] 2.16.84 0.1.600505.3.579.2.593 1962 Unknown [id number] 2.16.84 0.1.795263.3.579.2.593 1962 Unknown [id number] 2.16.84 0.1.989128.3.579.2.593 1959 Self-pay Social History Date Type Detail Facility Start: 06-28-2021 Tobacco smoking status Ex-smoker (fi nding) [facility] Tobacco smoking status Never [facility] Sex Assigned At Female [facility] Medical Equipment Procedure Code Equipment Code Equipment Origin al Text Equipment Identifier Dates FDA Start: 10-18-2021 FDA Start: 10-18-2021 FDA Start: 10-18-2021 FDA Start: 10-18-2021 FDA Start: 10-18-2021 FDA Start: 10-18-2021 FDA Start: 10-18-2021 FDA Start: 10-18-2021 CERVICAL ANTERIO R DISCECTOMY W/ FUSION, Derick Meza MD 10/18/21 Unknown Neck FDA Start: 10-18-2021 CERVICAL ANTERIO R DISCECTOMY W/ FUSION, Derick Meza MD 10/18/21 Unknown Neck FDA Start: 10-18-2021 CERVICAL ANTERIO R DISCECTOMY W/ FUSION, Derick Meza MD 10/18/21 Unknown Neck FDA Start: 10-18-2021 CERVICAL ANTERIO R DISCECTOMY W/ FUSION, Derick Meza MD 10/18/21 Unknown Neck FDA Start: 10-18-2021 CERVICAL ANTERIO R DISCECTOMY W/ FUSION, Derrick MURILLO, Derick A 10/18/21 Unknown Neck FDA Start: 10-18-2021 CERVICAL ANTERIO R DISCECTOMY W/ FUSION, Derrick MURILLO, Derick A 10/18/21 Unknown Neck FDA Start: 10-18-2021 CERVICAL ANTERIO R DISCECTOMY W/ FUSION, Derrick MURILLO, Derick A 10/18/21 Unknown Neck FDA Start: 10-18-2021 CERVICAL ANTERIO R DISCECTOMY W/ FUSION, Derrick MURILLO, Derick A 10/18/21 Unknown Neck FDA Start: 10-18-2021 CERVICAL ANTERIO R DISCECTOMY W/ FUSION, Derrick MURILLO, Derick A 10/18/21 Unknown Neck FDA Start: 10-18-2021 CERVICAL ANTERIO R DISCECTOMY W/ FUSION, Derrick MURILLO, Derick A 10/18/21 Unknown Neck FDA Start: 10-18-2021 CERVICAL ANTERIO R DISCECTOMY W/ FUSION, Derrick MURILLO, Derick A 10/18/21 Unknown Neck FDA Start: 10-18-2021 CERVICAL ANTERIO R DISCECTOMY W/ FUSION, Derrick MURILLO, Derick A 10/18/21 Unknown Neck FDA Start: 10-18-2021 CERVICAL ANTERIO R DISCECTOMY W/ FUSION, Derrick MURILLO, Derick A 10/18/21 Unknown Neck FDA Start: 10-18-2021 CERVICAL ANTERIO R DISCECTOMY W/ FUSION, Derrick MURILLO, Derick A 10/18/21 Unknown Neck FDA Start: 10-18-2021 CERVICAL ANTERIO R DISCECTOMY W/ FUSION, Derrick MURILLO, Derick A 10/18/21 Unknown Neck FDA Start: 10-18-2021 CERVICAL ANTERIO R DISCECTOMY W/ FUSION, Derrick MURILLO, Derick A 10/18/21 Unknown Neck FDA Start: 10-18-2021 CERVICAL ANTERIO R DISCECTOMY W/ FUSION, Derrick MURILLO, Derick A 10/18/21 Unknown Neck FDA Start: 10-18-2021 CERVICAL ANTERIO R DISCECTOMY W/ FUSION, Derrick MURILLO, Derick A 10/18/21 Unknown Neck FDA Start: 10-18-2021 CERVICAL ANTERIO R DISCECTOMY W/ FUSION, Derrick MURILLO, Derick A 10/18/21 Unknown Neck FDA Start: 10-18-2021 CERVICAL ANTERIO R DISCECTOMY W/ FUSION, Derrick MURILLO, Derick A 10/18/21 Unknown Neck FDA Start: 10-18-2021 CERVICAL ANTERIO R DISCECTOMY W/ FUSION, Derrick MURILLO, Derick A 10/18/21 Unknown Neck FDA Start: 10-18-2021 CERVICAL ANTERIO R DISCECTOMY W/ FUSION, Derrick MURILLO, Derick A 10/18/21 Unknown Neck FDA Start: 10-18-2021 CERVICAL ANTERIO R DISCECTOMY W/ FUSION, Derrick MURILLO, Derick A 10/18/21 Unknown Neck FDA Start: 10-18-2021 CERVICAL ANTERIO R DISCECTOMY W/ FUSION, Derrick MURILLO, Derick A 10/18/21 Unknown Neck FDA Start: 10-18-2021 CERVICAL ANTERIO R DISCECTOMY W/ FUSION, Derrick MURILLO, Derick A 10/18/21 Unknown Neck FDA Start: 10-18-2021 CERVICAL ANTERIO R DISCECTOMY W/ FUSION, Derrick MURILLO, Derick A 10/18/21 Unknown Neck FDA Start: 10-18-2021 CERVICAL ANTERIO R DISCECTOMY W/ FUSION, Derrick MURILLO, Derick A 10/18/21 Unknown Neck FDA Start: 10-18-2021 CERVICAL ANTERIO R DISCECTOMY W/ FUSION, Derrick MURILLO, Derick A 10/18/21 Unknown Neck FDA Start: 10-18-2021 CERVICAL ANTERIO R DISCECTOMY W/ FUSION, Derrick MURILLO, Derick A 10/18/21 Unknown Neck FDA Start: 10-18-2021 CERVICAL ANTERIO R DISCECTOMY W/ FUSION, Derrick MURILLO, Derick A 10/18/21 Unknown Neck FDA Start: 10-18-2021 CERVICAL ANTERIO R DISCECTOMY W/ FUSION, Derrick MURILLO, Derick A 10/18/21 Unknown Neck FDA Start: 10-18-2021 CERVICAL ANTERIO R DISCECTOMY W/ FUSION, Derrick MURILLO, Derick A 10/18/21 Unknown Neck FDA Start: 10-18-2021 CERVICAL ANTERIO R DISCECTOMY W/ FUSION, Derrick MURILLO, Derick A 10/18/21 Unknown Neck FDA Start: 10-18-2021 CERVICAL ANTERIO R DISCECTOMY W/ FUSION, Derrick MURILLO, Derick A 10/18/21 Unknown Neck FDA Start: 10-18-2021 CERVICAL ANTERIO R DISCECTOMY W/ FUSION, Derrick MURILLO, Derick A 10/18/21 Unknown Neck FDA Start: 10-18-2021 CERVICAL ANTERIO R DISCECTOMY W/ FUSION, Derrick MURILLO, Derick Levi 10/18/21 Unknown Neck FDA Start: 10-18-2021 CERVICAL ANTERIO R DISCECTOMY W/ FUSION, Derrick MURILLO, Derick Levi 10/18/21 Unknown Neck FDA Start: 10-18-2021 CERVICAL ANTERIO R DISCECTOMY W/ FUSION, Derrick MURILLO, Derick Levi 10/18/21 Unknown Neck FDA Start: 10-18-2021 CERVICAL ANTERIO R DISCECTOMY W/ FUSION, Derrick MURILLO, Derick Levi 10/18/21 Unknown Neck FDA Start: 10-18-2021 CERVICAL ANTERIO R DISCECTOMY W/ FUSION, Derrick MURILLO, Derick Levi 10/18/21 Unknown Neck FDA Start: 10-18-2021 CERVICAL ANTERIO R DISCECTOMY W/ FUSION, Derrick MURILLO, Derick Levi 10/18/21 Unknown Neck FDA Start: 10-18-2021 CERVICAL ANTERIO R DISCECTOMY W/ FUSION, Derrick MURILLO, Derick Levi 10/18/21 Unknown Neck FDA Start: 10-18-2021 CERVICAL ANTERIO R DISCECTOMY W/ FUSION, Derrick MURILLO, Derick Levi 10/18/21 Unknown Neck FDA Start: 10-18-2021 CERVICAL ANTERIO R DISCECTOMY W/ FUSION, Derrick MURILLO, Derick Levi 10/18/21 Unknown Neck FDA Start: 10-18-2021 Functional Status Date Assessment Result Facility 10-10-2022 Functional Status N/A [facility] 08-22-2022 Functional Status N/A [facility] 07-11-2022 Functional Status N/A [facility] 06-20-2022 Functional Status N/A [facility] 03-28-2022 Functional Status N/A [facility] Clinical Notes 10-31-2021 to 10-10-2022 Note Date & Type Note Facility 10-10-2022 Evaluation + Plan note Extrac che from: Title:Spine Follow up Author:Fredy Rush PA-C Date:10/10/22 Impression and Plan Patient is a 62-year-old female She is status post C5-6 and C6-7 ACDF. This was done on 10/18/2021. She has some neck pain but otherwise her radicular symptoms are still better. She is having some lower back pain and some injections were recommended to her by pain management. She is thinking about this. She is not yet sure if she wants to pursue it but she is going to think about it. She will follow-up with pain management as she desires. In regards to her previous cervical spine surgery she is going to consider her options and should she decide to pursue a 2-year follow-up she will follow-up with Dr. Derick Meza at [facility]. She has this information. Future Scheduled Tests Radiology* XR Spine Cervical 2 or 3 Views 10/31/[address] [facility]01-17-2023 Evaluation + Plan noteExtracted from: Title:STEPHEN Author:Eddi Arana MD Date :08/22/22 Impression and Plan 62-year-old female with severe axial low back pain consistent with lumbar spondylosis. She does have considerable degenerative changes in the lower lumbar facet joints. The pain has not responded to appropriate conservative care including NSAIDs and physical therapy. I recommend going ahead with diagnostic facet blocks to the bilateral L4-5 and L5-S1 joints. If the pain is significantly improved during the period of time the local anesthetic is in effect the patient would be a candidate for radiofrequency ablation to provide longer lasting relief. Risk, benefits, and alternatives were reviewed with the patient. She wishes to proceed. Follow-up 1 week after the diagnostic blocks to assess response. Patient agrees with plan of care. Future Scheduled Tests Radiology* XR Spine Cervical 2 or 3 Views 10/31/[address] [facility]12-27-2022 Note [id number]:[id number] 07-11-[facility]22 Evaluation + Plan noteExtracted from: Title:FU Author:Eddi Arana MD Date :07/11/22 Impression and Plan 62-year-old female with longstanding low back pain and lumbar radicular pain secondary to disc displacement, annular tear, degenerative disc disease, and facet hypertrophy. Her pain is multifactorial. The pain is not responded to a full course of physical therapy and regular use of high-dose ibuprofen. The pain significantly impacts quality life and activities of daily living. I believe a significant portion of the patient's pain is due to the annular tear and disc displacement at L5-S1. I recommended to the patient that we start with an L5-S1 epidural steroid injection to address the symptoms associated with a disc bulge, annular tear, and subsequent radicular symptoms. Once those symptoms are addressed we may want to consider diagnostic facet blocks to ascertain the degree to which her pain is facet mediated. We would proceed with radiofrequency ablation in the future the patient does experience short-lived relief with the facet blocks. The above-noted treatment plan was reviewed with the patient in great detail. Risk, benefits, and alternatives were reviewed with the patient. She wishes to proceed. Plan follow-up 2 weeks after the epidural injection to assess response. Patient agrees with plan of care. Future Scheduled Tests Radiology* XR Spine Cervical 2 or 3 Views 10/31/[address] [facility]11-15-2022 Evaluation + Plan noteExtracted from: Title:Spine Follow up Author:Fredy Rush PA-C Date:06/20/22 Impression and Plan Patient is a 62-year-old female. She had a recent lumbar MRI. She continues have lower back pain as well as popping and cracking. She states that this is very concerning. We reviewed the MRI. I do not see anything that requires surgical intervention. She was happy to hear this. We discussed referral to pain management once again to discuss this with them but she states at this time she does not want to do this. She states that getting the epidurals is like having surgery and she does not want to do that. She is going to continue follow-up with her PCP and see if she can get some of this under control at home. In regards to her neck she underwent previous C5-6 and C6-7 ACDF. This was done on 10/18/2021. She recently suffered a fall. She did not call and tell us about this. She states that she does not think she nadia her neck but she did note nausea, vomiting and some vertigo afterward. She also has multiple areas of pain on her visual analog scale. I recommended obtaining updated cervical x-rays today and we will call her with any abnormal findings. I also strongly encouraged her to seek emergent care if anything like this should happen again. She voiced understanding. At this time she will obtain cervical x-rays today and again in October 2022 which would make her 1 year postop. She will follow up at that time. Call the clinic sooner if necessary. Future Scheduled Tests Radiology* XR Spine Cervical 2 or 3 Views 10/31/[address] [facility]08-23-2022 Evaluation + Plan noteExtracted from: Title:Spine follow-up Author:Fredy Rush PA-C Date:03/28/22 Impression and Plan Patient is a 62-year-old female. She underwent previous C5-6 and C6-7 ACDF. This was done on 10/18/2021. In regards to this she still has some intermittent posterior neck pain. We had a long discussion about this. She continues to use OTC medications and the muscle relaxer that does help her. I would encourage her to continue to do this and other OTC treatments were discussed. In regards to her lower back and buttock pain she has previously failed all reasonable conservative treatments. We reviewed her previous imaging but she states that this pain is different. She feels popping and cracking. Anti-inflammatory medications have not helped. Muscle relaxers do not help. Home x-rays program does not help. I would recommend obtaining updated lumbar x-rays and an MRI scan with follow-up after to discuss different options. Patient is agreeable. Future Appointments Appointment Date:04/25/2022 11:00:00 AM Scheduled Provider:Sophy Rush PA-C [facility] Appointment Type:Spine - Follow Up ([facility]) Future Scheduled Tests Radiology* XR Spine Cervical 2 or 3 Views 10/31/[address] [facility]05-17-2022 Evaluation + Plan noteExtracted from: Title:Spine surgery follow-up Author:Sophy Varghese Date:12/20/21 Impression and Plan Patient is a 61-year-old female. She presents today for a 3-month postop from C5-6 and C6-7 ACDF. This was done on 10/18/2021. At this time, she states that she is overall doing fairly well. She has some neck pain that she rates a 2/10. Otherwise, she is comfortable and happy. She is doing well in regards to this. She does have some back pain that she is seeing her primary care physician for. She is going to follow-up in 3 months with updated cervical x-rays. She will call the clinic sooner if necessary. Future Appointments Appointment Date:03/28/2022 12:30:00 PM Scheduled Provider:Sophy Rush PA-C Location:[facility] [place] Appointment Type:Pain Management - Follow Up ([facility]) Future Scheduled Tests Radiology* XR Spine Cervical 2 or 3 Views 10/31/[address] [facility]03-28-2022 Evaluation + Plan note Future Scheduled Tests Radiology* XR Spine Cervical 2 or 3 Views 10[facility] Future Appointments Appointment Date:03/28/2022 12:30:00 PM Scheduled Provider:Sophy Rush PA-C Location:[facility] [place] Appointment Type:Pain Management - Follow Up ([facility]) Future Scheduled Tests Radiology* XR Spine Cervical 2 or 3 Views 10[facility]31/[address] [facility] Future Appointments Appointment Date:04/25/2022 11:00:00 AM Scheduled Provider:Sophy Rush PA-C [facility] Appointment Type:Spine - Follow Up ([facility]) Future Scheduled Tests Radiology* XR Spine Cervical 2 or 3 Views 10[facility]31/[address] Future Appointments Appointment Date:05/23/2022 11:30:00 AM Scheduled Provider:Sophy Rush PA-C [facility] Appointment Type:Spine - Follow Up ([facility]) Future Scheduled Tests Radiology* XR Spine Cervical 2 or 3 Views 10/31/[address] Narrative No data available for this section [facility] Discharge instructions No data available for this section [facility] No data available for this section [facility] Summary Purpose Family History No Family History Records FoundNo Family History Records Found Advance Directives No Advanced Directives Records FoundNo Advanced Directives Records Found Additional Source Comments Care Team (unrecognized sect ion and content) Personnel Name: Emi Friedman MD Address: [address] [place] [address] Personnel Name: Emi Friedman MD Address: [address] [place] [address] Personnel Name: Emi Friedman MD Address: [address] [place] [address] Personnel Name: Emi Friedman MD Address: Address: [address] [place] [address] Personnel Name: Emi Friedman MD Address: Address: [address] [place] [address] [place] [address] [place] Personnel Name: Emi Friedman MD Address: Address: [address] [place] [address] [place] [address]- [place] Personnel Name: Emi Friedman MD Address: Address: [address] [place] [address] [place] [address]- [place] Personnel Name: Emi Friedman MD Address: Address: [address] [place] [address] [place] [address]- [place] Personnel Name: Emi Friedman MD Address: Address: [address] [place] [address] [place] [address]- [place] Personnel Name: Emi Friedman MD Address: Address: [address] [place] [address] [place] [address]- [place] Personnel Name: Emi Friedman MD Address: Address: [address] [place] [address] [place] [address]- [place] INFORMATION SOURCE (unrecogn ized section and content) DATE CREATED AUTHOR 10/23/2022 [facility] DATE CREATED AUTHOR AUTHOR'S ORGANIZ ATION 11/28/2022 [facility] FOR RECORDS PERTAINING TO PATIENTS WHO ARE OR HAVE BEEN ENROLLED IN A CHEMICAL DEPENDENCY/SUBSTANCEABUSE PROGRAM, SOME INFORMATION MAY BE OMITTED. This clinical summary was aggregated from multiple sources. Caution should be exercised in using it in the provision of clinical care. This summary normalizes information from multiple sources, and as a consequence, information in this document may materially change the coding, format and clinical context of patient data. In addition, data may be omitted in some cases. CLINICAL DECISIONS SHOULD BE BASED ON THE PRIMARY CLINICAL RECORDS. [employer] provides no warranty or guarantee of the accuracy or completeness of information in this document.
[2023-09-05 14:26] LABS: Basophils Absolute Auto 0.1 10^3/uL (0.0-0.1); Basophils Percent Auto 0.9 % (0.2-2.0); Eosinophils Absolute Auto 0.2 10^3/uL (0.0-0.7); Eosinophils Percent Auto 2.8 % (0.9-7.0); Hematocrit 45.9 % (36.0-48.0); Hemoglobin 14.9 g/dL (12.0-16.0); Immature Granulocytes Abs Auto 0.05 10^3/uL (0.00-0.03); Immature Granulocytes Pct Auto 0.6 % (0.0-0.5); Lymphocytes Absolute Auto 2.3 10^3/uL (1.2-3.8); Lymphocytes Percent Auto 29.4 % (20.5-60.0); Mean Corpuscular HGB Conc 32.5 g/dL (29.9-35.2); Mean Corpuscular Volume 101.8 fL (81.0-99.0); Mean Platelet Volume 9.7 fL (9.5-13.5); Monocytes Absolute Auto 0.5 10^3/uL (0.3-0.8); Monocytes Percent Auto 6.8 % (1.7-12.0); Neutrophils Absolute Auto 4.6 10^3/uL (1.4-6.5); Neutrophils Percent Auto 59.5 % (43.0-75.0); Platelet Count 457 10^3/uL (150-450); Red Blood Count 4.51 10^6/uL (4.20-5.40); Red Cell Distribution Width 13.3 % (11.0-15.0); White Blood Count 7.8 10^3/uL (4.0-11.0)
[2023-09-05 15:41] LABS: Alanine Aminotransferase 55 U/L (14-59); Albumin Globulin Ratio 0.9; Albumin Level 4.1 g/dL (3.4-5.0); Alkaline Phosphatase 60 U/L (46-116); Anion Gap 16.2; Aspartate Amino Transferase 30 U/L (15-37); BUN Creatinine Ratio 16.1; Bilirubin Total 0.3 mg/dL (0.2-1.0); Carbon Dioxide 26.3 mmol/L (21.0-32.0); Chloride 101 mmol/L (98-107); Cholesterol 330 mg/dL (<=200); Estimated GFR (African America 53 (>=60); Estimated GFR (Non-African Ame 44 (>=60); Free T3 2.92 pg/mL (2.18-3.98); Globulin 4.5 g/dL; Glucose 103 mg/dL (74-106); HDL Cholesterol 66 mg/dL (40-60); Magnesium 1.8 mg/dL (1.8-2.4); Potassium 4.5 mmol/L (3.5-5.1); Sodium 139 mmol/L (136-145); Thyroid Stimulating Hormone 1.298 uIU/mL (0.358-3.740); Total Protein 8.6 g/dL (6.4-8.2); Triglycerides 211 mg/dL (<=150); VLDL CHOLESTEROL 42.2 mg/dL
[2023-09-05 16:00] LABS: Estimated Average Glucose 117 mg/dL; Glycohemoglobin A1C 5.7 % (4.5-6.2)
[2023-09-06 10:09] LABS: Insulin 40.4 uIU/mL (2.6-24.9)
== END 2023-09-05 12:37 | disposition home or self-care (01) ==
LOC: LAB 12:38
PROVIDERS: PCP Family Medicine; Visit Provider Family Medicine
DX: Z00.00 Encounter for general adult medical examination without abnormal findings (principal); E78.5 Hyperlipidemia, unspecified; R73.09 Other abnormal glucose; D64.9 Anemia, unspecified; E55.9 Vitamin D deficiency, unspecified
CPT/HCPCS: 36415; 80053; 80061; 82306; 83036; 83525; 83540; 83735; 84436; 84443; 84481; 85025

== ENCOUNTER 2023-12-27 14:06 | Outpatient (OUT) | payer MEDICARE, SELFPAY ==
[2023-12-27 14:35] LABS: Bilirubin Urine NEGATIVE (NEGATIVE); Blood Urine NEGATIVE (NEGATIVE); Clarity Urine CLEAR (CLEAR); Color Urine LT. YELLOW (YELLOW); Glucose Urine UA NEGATIVE (NEGATIVE); Ketones Urine NEGATIVE (NEGATIVE); Leukocyte Esterase Urine TRACE (NEGATIVE); Nitrite Urine NEGATIVE (NEGATIVE); Protein Urine NEGATIVE (NEG/TRACE); Urobilinogen Urine 0.2 EU/dL (0.2-1.0); pH Urine 5.5 (5.0-9.0)
[2023-12-27 15:19] LABS: Bacteria Urine TRACE #/HPF (NONE SEEN); Crystals Seen? None Seen #/HPF (None Seen); Mucus Urine NONE SEEN (NONE SEEN); RBC Urine NONE SEEN #/HPF (0-2); Squamous Epithelial Cell Urine RARE #/LPF (NONE/RARE)
[2023-12-27 15:20] LABS: Cast Seen? NONE SEEN #/LPF (NONE SEEN)
[2023-12-27 15:28] LABS: Alanine Aminotransferase 31 U/L (14-59); Albumin Level 3.7 g/dL (3.4-5.0); Alkaline Phosphatase 61 U/L (46-116); Aspartate Amino Transferase 22 U/L (15-37); BUN Creatinine Ratio 15.7; Bilirubin Total 0.4 mg/dL (0.2-1.0); Calcium 9.6 mg/dL (8.5-10.1); Chloride 104 mmol/L (98-107); Estimated GFR (African America >60 (>=60); Estimated GFR (Non-African Ame >60 (>=60); Globulin 3.6 g/dL; Glucose 92 mg/dL (74-106); Sodium 140 mmol/L (136-145); Total Protein 7.3 g/dL (6.4-8.2)
== END 2023-12-27 14:07 | disposition home or self-care (01) ==
LOC: LAB 14:07
PROVIDERS: PCP Family Medicine; Visit Provider Family Medicine
DX: E78.5 Hyperlipidemia, unspecified (principal); J01.90 Acute sinusitis, unspecified; R82.998 Other abnormal findings in urine
CPT/HCPCS: 36415; 80053; 81001; 87086; 87150; 87186

== ENCOUNTER 2024-01-14 08:28 | Outpatient (OUT) | payer MEDICARE, SELFPAY ==
--- OUTSIDE RECORDS SUMMARY | 2024-01-14 10:51 | XMS_ITS | CCD ---
Author Organization [facility] Care Team Providers Care Construction Assistant Name Role Phone Emi Friedman Primary Care Physician Emi Friedman Referring Unavailable RushValentinaSophy Attending Unavailable Rush, Sophy Admitting Unavailable Emi Friedman Referring Unavailable Rush, Sophy Attending Unavailable Rush, Sophy Admitting Unavailable HoEmi vásquez Referring Unavailable Rush, Sophy Attending Unavailable Rush, Sophy Admitting Unavailable Emi Friedman Referring Unavailable Rush, Sophy Attending [...] Attending Unavailable Meza, Derick A Admitting Unavailable Meza Derick A Admitting Unavailable MezaTyDerick A Attending Unavailable Meza, Derick A Admitting Unavailable Meza Derick A Attending Unavailable Meza, Derick A Admitting Unavailable Meza, Derick A Attending Unavailable Rush, Sophy Attending Unavailable Rush, Sophy Admitting Unavailable Rush, Sophy Referring Unavailable MezaTyDerick A Attending Unavailable Meza, Derick A Admitting Unavailable Meza, Derick A Admitting Unavailable Derick Meza A Attending Unavailable ELDER Dunn, DR MIDDLETON Admitting Unavailable ELDER Dunn, DR MIDDLETON Attending Unavailable ELDER Dunn, DR MIDDLETON Primary Care Unavailable ELDER Dunn, DR MIDDLETON Consulting Unavailable LAKHWINDER, DR FRANCO Sethi Consulting Unavailable MARISOL ., DR UNDERWOOD Admitting Unavailabl e MARISOL ., DR UNDERWOOD Attending Unavailabl e HOY ., DR MIDDLETON Primary Care Unavailable KARASIK ., DR UNDERWOOD Consulting Unavailabl e HOY [...] Unavailable HOY ., DR MIDDLETON Consulting Unavailable NOBLEEBKYLE, DR FRANCO Sethi Consulting Unavailable Elder MURILLO, Emi Adrian Primary Care Provider [phone] Allergies Allergy Classification Reported Allergen(s) Allergy Type Date of Onset Reaction(s) Facility (14 sources) Adhesive Tape; Translations: [Tape] Drug allergy Eruption of skin (disorder) [facility] (16 sources) Penicillin; Translations: [penicillin] Drug Allergy 9 Weal (disorder) [facility] (14 sources) Sulfonamides (Antibiotic); Translations: [sulfa drugs] Drug allergy Weal (disorder) [facility] (1 source) Desonide Drug Allergy 9 [facility] (1 source) natural latex rubber Drug allergy (disorder) [facility] (2 sources) Sulfonamides (Antibiotic) Drug allergy (disorder) [facility] (2 sources) Adhesive agent Propensity to adverse reactions to drug 2 Other (See Comments) [facility] (2 sources) Penicillins Propensity to adverse reactions to drug 8 Hives, Itching [facility] (2 sources) Sulfonamides (Antibiotic) Propensity to adverse reactions to drug 8 Hives, Itching [facility] Medications Current Medications Medication Drug Class(es) Dates Sig (Normalized) Sig (Original) acyclovir 800 mg oral tablet (15 sources) Herpesvirus Nucleoside Analog DNA Polymerase Inhibitor, Herpes Simplex Virus Nucleoside Analog DNA Polymerase Inhibitor, Herpes Zoster Virus Nucleoside Analog DNA Polymerase Inhibitor Start: 05-10-2021 take 1 tablet by mouth once daily acyclovir 800 mg Tab TAKE 1 TABLET BY MOUTH DAILY, Other (see comment) Start Date: 05/10/21 Status: Ordered alendronic acid 70 mg oral tablet (7 sources) Bisphosphonate Start: 06-22-2021 take 1 tablet by mouth every week alendronate (FOSAMAX) 70 mg tablet Take 70 mg by mouth once a week. 0 10/10/2021 Active ALPRAZolam 0.25 mg oral tablet (15 sources) Benzodiazepine Start: 05-13-2020 take 0.5-1 tablets by mouth three times daily ALPRAZolam (XANAX) 0.25 mg tablet TK 1/2 TO 1 T PO TID 0 05/13/2020 Active ascorbic acid 500 mg oral tablet (2 sources) Vitamin C take 1 tablet by mouth once daily ascorbic acid (VITAMIN C) 500 mg tablet Take 500 mg by mouth daily. 0 Active aspirin 81 mg delayed release oral tablet (15 sources) Platelet Aggregation Inhibitor, Nonsteroidal Anti-inflammatory Drug [...] Status: Ordered biotin 1 mg oral tablet (15 sources) Start: 10-03-2021 biotin 1 mg ta blet Take 1,000 mcg by mouth. 0 10/03/2021 Active Start: 10-03-2021 take 1 tablet by hugo th once daily biotin 1000 mcg oral tablet 1,000 mcg = 1 tab(s), Oral, Daily, Prophylaxis Start Date: 10/03/21 Status: Ordered cetirizine hydrochloride 10 mg oral tablet (2 sources) Histamine-1 Receptor Antagonist take 1 tablet by mouth once daily cetirizine (ZyrTEC) 10 mg tablet Take 10 mg by mouth daily. 0 Active cholecalciferol 0.125 mg oral capsule (2 sources) Vitamin D take 1 capsule by mouth once daily cholecalciferol, vitamin D3, (VITAMIN D3) 5,000 units capsule Take 5,000 Units by mouth daily. 0 Active docusate sodium 100 mg oral capsule (2 sources) take 1 capsule by mouth once daily docusate sodium (COLACE) 100 mg capsule Take 100 mg by mouth daily. 0 Active Fish Oils (13 sources) Start: 05-10-20 take 1200 mg by mouth once daily Fish Oil 1,200 mg, Oral, Daily, Refill(s) 0, Prophylaxis Start Date: 05/10/21 Status: Ordered fluticasone propionate 0.05 mg/actuat metered dose nasal spray (9 sources) Corticosteroid Start: 05-20-20 fluticasone 0.05 mg/inh Nasal [place] 1 spray(s), Nasal, Daily, Refill(s) 0, Allergy symptoms Start Date: 05/20/21 Status: Ordered take 1 spray(s) nasal route once daily fluticasone propionate (FLONASE) 50 mcg/actuation nasal spray Administer 1 spray into each nostril daily. 0 Active fluticasone 0.05 mg/inh Nasal [place] (6 sources) Start: 05-20-2021 fluticasone 0.05 mg/inh Nasal [place] 1 spray(s), Nasal, Daily, Refill(s) 0, Allergy symptoms Start Date: 05/20/21 Status: Ordered gabapentin 300 mg oral capsule (15 sources) Anti-epileptic Agent Start: 05-10-2021 take 1 capsule by mouth in the morning gabapentin (NEURONTIN) 300 mg capsule Take 300 mg by mouth in the morning and 300 mg before bedtime. 0 12/13/2021 Active ibuprofen 800 mg oral tablet (6 sources) Nonsteroidal Anti-inflammatory Drug Start: 07-11-2022 ibuprofen 800 mg Tab PRN as needed for pain, as needed, Refills(s) 0 Start Date: 07/11/22 Status: Ordered lisinopril 40 mg oral tablet (15 sources) Angiotensin Converting Enzyme Inhibitor Start: 10-03-2021 take 1 tablet by mouth in the morning lisinopriL (PRINIVIL,ZESTRIL ) 40 mg tablet Take 40 mg by mouth in the morning. 0 10/28/2021 Active metFORMIN hydrochloride 500 mg oral tablet (20 sources) Biguanide Start: 06-28-2021 take 1 tablet by mouth in the morning metFORMIN (GLUCOPHAGE) 500 mg tablet Take 500 mg by mouth in the morning and 500 mg before bedtime. 0 10/09/2021 Active 24 hr metoprolol succinate 100 mg extended release oral tablet (15 sources) beta-Adrenergic Marco Start: 11-14-2021 take 1 tablet by mouth every twenty-four hours in the morning metoprolol succinate XL (TOPROL XL) 100 mg 24 hr tablet Take 100 mg by mouth in the morning and 100 mg before bedtime. 0 11/14/2021 Active Start: 10-03-2021 take 1 tablet by hugo th twice daily Metoprolol succinate 100 mg ER Tablet 100 mg, Oral, BID, High blood pressure Start Date: 10/03/21 Status: Ordered Start: 10-03-2021 take 1 tablet by hugo th twice daily Metoprolol succinate 100 mg ER Tablet 100 mg, Oral, BID, High blood pressure Start Date: 10/03/21 Status: Ordered [facility] Medication (4 sources) Start: 07-11-2022 [facility] Medicatio n See Instructions, collagen powder 1 scoop daily Start Date: 07/11/22 Status: Ordered arwvstxp-[id number]-WU-ca lcium &mins (THERAGRAN-M) 9 mg iron-400 mcg tablet (2 sources) bajurrjw-sgmk-AW -ca lcium &mins (THERAGRAN-M) 9 mg iron-400 mcg tablet Take 1 tablet by mouth daily. 0 Active multivit-min/folic ac/collagen (WOMEN'S MULTIVITAMIN COLLAGEN ORAL) (2 sources) multivit-min/fol ic ac/collagen (WOMEN'S MULTIVITAMIN COLLAGEN ORAL) Take by mouth. Powder, 1 scoop daily 0 Active Multivitamin, Therapeutic w/ Minerals (13 sources) Start: 10-03-2021 take 1 tablet by mouth once daily Multivitamin, Therapeutic w/ Minerals 1 tab(s), Oral, Daily, Prophylaxis Start Date: 10/03/21 Status: Ordered omega-3 fatty acids-fish oil 300-1,000 mg capsule (2 sources) take 1 capsule by mouth once daily omega-3 fatty acids-fish oil 300-1,000 mg capsule Take 2 g by mouth daily. 0 Active Omeprazole (15 sources) Proton Pump Inhibitor Start: 05-23-2021 omeprazole 40 mg, Daily, Refills(s) 0, Control of stomach acid Start Date: 05/23/21 Status: Ordered Start: 06-14-2020 take 1 capsule by [facility] once daily omeprazole (PriLOSEC) 40 mg capsule TAKE 1 CAPSULE(40 MG) BY MOUTH DAILY 90 capsule 0 06/14/2020 Active pravastatin sodium 20 mg oral tablet (13 sources) HMG-CoA Reductase Inhibitor Start: 10-03-2021 take 1 tablet by mouth once daily at bedtime pravastatin 20 mg Tab 20 mg = 1 tab(s), Oral, Once a day (at bedtime), High cholesterol Start Date: 10/03/21 Status: Ordered rosuvastatin calcium 20 mg oral tablet (2 sources) HMG-CoA Reductase Inhibitor Start: 04-23-2020 rosuvastatin (CRESTOR) 20 mg tablet Take by mouth daily. 0 04/23/2020 Active simvastatin 20 mg oral tablet (2 sources) HMG-CoA Reductase Inhibitor Start: 08-21-2017 take 1 tablet by mouth once daily simvastatin (ZOCOR) 20 mg tablet Take 20 mg by mouth nightly. 0 08/21/2017 Active tiZANidine 4 mg oral tablet (15 sources) Central alpha-2 Adrenergic Agonist Start: 10-20-2021 tiZANidine (ZANAFLEX) 4 mg tablet Take 1 tablet by mouth in the morning and 1 tablet before bedtime. 2 tablets before bed. 0 12/13/2021 Active vitamin b12 0.1 mg oral tablet (2 sources) Vitamin B12 take 1 tablet by mouth once daily cyanocobalamin (VITAMIN B-12) 100 MCG tablet Take 100 mcg by mouth daily. 0 Active Vitamin C 1000 mg oral tablet (13 [...] 0, Prophylaxis Start Date: 06/28/21 Status: Ordered Problems Active Problems Problem Classification [...] Range Facility Coding Summary.on 10-23-2022 Coding Summary. [id number] G h0bWw+PGhlYWQ+TC4BBNV uT11atTLklM1vV1ICTOaX SywgQVBQTElOSyIgbmFtZ A4wqJJoTKXo IC8+HG9jLVTyNhwskWOho 6J1gVH2C84jtr9mRTlhlF T1XOTyXdHpjpbqp4fhaWa 6IDcuNmluOyBt NPUbhB27UWB2hQ73Er94d KOxxUPjn6xdaJx2SyHyOJ QrYJI7iGbpOWvwq2SfBBM zJ75msAFmd2F5 SALkrVakgPJxHbIntRS9h Y7rTCyniigpt5tlsneuPg q6rk32gKJyl7M9cVB3P0T cpoL4RUOhiSRi FlswtYKZlZ6acazvz1ujg pdpEmIbIPAkOOi7ODl6NN ConDlfJbEoMS53UGQ4DCV onjEeO1CvKMWt tYvzSgM4m5U2Ba1UF0TIB prtD9CRVUPZIDvseMH+PC 69ve68E7OeDmaqUoe5GYG yBGB8uXX8yE5b TIWcGAhms1Y6aDY0S6Wno yZeun7sl0jbWYIaQBueH6 7rwAEvx9D3FKTgbDX2QHA sfSraFzUvgL56 Oyc+VXPzgBinb5FwQlnpp 6ihe2uitLj4YifmIISnit HlvZwrPGG9n2NyQe2bYOT yiFF7qXC1lN4i CaAfCnF6MFtbF712OhIly ZMlDddqP65uH2SvhBG+PH FhWqj0XQEmlYjmDC3lG0I hZGRpbmctbGVm hEwpBR0rUEMypexqYLMpj P4bJNAkS4g8SiAyIgB3GU ibO0DoTWEirnofMq96pJ2 lHnNhPnG7OGsh L7NxixS3TYFsuNRsGGskK PE2L46rg2Y2NKVeBTNiMV Z2vJP3kI3ioUopjdnqoQP mdDsgdmVydGlj PKdcFAwzO154ZYFskOhqA kNvZGluZyBEYXRlOiAgMD MvMjAvMjAyMzwvdGQ+PHR qSDH2zNhhWELl yZJwPVrsRm7xiXdafNfyL Z9wPATtgclzOZDjxZ7dZU YloJHeoAheKQ3rQUGddqd wx079LsMaLRQ1 ILFhmGEsX9RiaS0cTsMmZ IHdCPIfQ3ZbqZMkAGcbI6 11QDowVkZ1JEDmdgLkL5J sLWFsaWduOiB0 e1N7By4Hi1AytocjE4Xlz AZxFnFnLpyuSRy0X8EvZe wvdHI+JM10RCIaQY88JVh 7VTK0oLboDYbf NLEwI8JbsO7vIlYaHUHtE GRkOyc+PHRhYmxlIHdpZH RoPScxMDAlJyBzdHlsZT0 wWl9kFZFbHGSt rLxqsPStByWws2diGATmD RioDU0edLsrU8RpoAI6KG Azn9l7Ne00V84jT2FzeFP +UHEzqFU1vDZ3 wJ4wRqGuYhH6SAcfQ464N pNiyCNeGronm6mff1xooD s7WfK5RVTvmlPflPzmLXC 7w9WeOl06Q38y IHdpZHRoPSIxNSUiIHZhb Rstxx5oiI0kDl4+PGNvbC Z2sTU9rU5kFmLbOcN2VJk mX481UjDnmADx Tolze5hap5vjxWo8KpPxD ZHwkfIesGbnDBI0c9SdTk 38M1JvjYwha0ZbWqd8vw1 9zOZdw3L6eKP5 J1LzWATfomigdGGgkUlfP B7jDTGjjrigUWVioD7aUC GhL7k9QbRpYzQ8AYezO3X chdR9MJKfaWJx KKMtsYGZuK1ueqrcr6ccu kigOgGdFUPqYLj2QPm7YB YefBggZjKsDRE0JvV1DGC 6xTXpkS3jlFba uwidsR5yPuz+WUH3lEHcm KIRVO0uDhgbfYC+PHRkIH Q6jKstWDugIMEgoJ5ePOF tC5f4SqGjRmA0 XRryL9DnioT1KZTnnHSyP NCxkKEUpT4ahttjq2qcis hgXkMvPTGzEKl6PIu3EJZ saWduOiBsZWZ0 McW0JST8vKOvsH5dgObzt ybnsX4iXqu+QmlydGggRG A4WZq2F4ErSzd7PCTgrKf iLI7wgNKhYEeq Uu5naAgveAbyPK4nKFWcc armk964VdGsd4waHSPezT XqPXtcJZE2K43xr3C9TTY kZBKvAKI4gFO0 xV9vmUdahylblEGinQagp eWkdLvfDTheIUxvD093HE TvtFbbNqJzCLg0Q1TjWfj 9CTVrqRypKX1a qMZcWDfcFn4dyQtrvGnqO L4pIMMrligde734MaJie8 okYPKxiYVbXNygYUE8F73 in9E6HHUpHQXe IGV2yEE1bJ8uqMbbkpdfw GVmdDsgdmVydGljYWwtYW wnJ264XDBbxEqeQqSypZn 3Z5BkLgn6BTPs tGdnWP2eoJBdVOerNt4xe AbdpSsmSP4xJUAojstgz7 73DvHgs2qnQZYnfZNhROi sPVL4Y17rp6O7 OZToKTVrMGX8kZB2hE6zb GlnbjogbGVmdDsgdmVydG muGZgmNRuiE844BBFtsWl nPlBhdGllbnQg WVraACq4D3OcXuityCB+P P85KDAnBC41vKRwtNRro2 vbzUh9PxPnUAXmVPJ7iVe lLZhms3KuILKz J18wkQEpr5Y6KUEmzMnkq GAsWyMrsBV0zL0gPJkqtq qje5wxoqmqOmaak9dqwi2 4uD65M75xWUlt ZHRoPSIzMCUiIHZhbGlnb r1hnC7nDr7+JOGgyZX0wN Y1mA2lCRCnRwS3ZXseQ62 9InRvcCIvPjxj h2shc4syyYf1OtL6QCFbq hAvgPwtSXI4p2MsAv31F1 9sIHdpZHRoPSIyMCUiIHZ yrFicei9lbH5n Ii8+PJTjuSP7aKW4fR1qW pRaViF2TFcmP637ZxXaaN SlUpowE85mX4BvfHQ+PHR zHop7XBUbxPnq CW9xqHAoKPxaJr7xCML4Z lUeEcYiYLidB3TxBFPlwe aanwkmbSP6BIEbOJLusF0 1Di4isFlePYYe jMOIkU7qzkpiq8geyvbjL tAcHRUmEOz3HYw5MSViaC rfXrXsLXN3JqE3ZBC1bHX jxL4xdNkiwxii zR5qI5CvKYOicgoxDn00d I4tKdZyQiU0NIyhSnr+Ql BRGe5EAYfjDANFPeMuUBy vdGQ+PHRkIHN0 nYckQQufFARrwW7mODQsV 9w6RdBnUyI0YEkjL2WjLS JyogvmKp15bC6vUrTjJzT 0EDxzC5XouuG1 DVZlpALiMSzyLRV1U81og 4U9GTWdTFMiAKU2zZD9nX 1hbGlnbjogbGVmdDsgdmV ydGljYWwtYWxp I956BVUpyZcxLwP2KjFaL xS3RyE8V0YlStd0SFSqkK gmZJ5tfTIqWOweJx5gzSn mwEbvAL0tFZXo obogJGLvmU6wSLOjfRTwr AqeKW4sDODiprost262Ga WqOBN8UDUizXTqJ4GouQ1 yOiAjMDAwMDAw R5UarWPpDYizQ327TFcmQ hX8JTXewgUrR5NrTEIekE lcAzV3n8A4Fb22UHEXAUC yczwvdGQ+PHRk JFL1cFzhLNmoRRMykL3vK POgM7b5RkXqKmL4IHtdX1 EcDGDqfjagEd80vK4kIrP fGiC0RLqaX5Mv hnX3EYTnkOQyXFrmCUC2R 95gw0B4YLIvIPHfWRN1zQ P4pX2foJlnrbtsnPUvpTi gdmVydGljYWwt GHfxW448XOSclNavUkXnt WFsZTwvdGQ+QJPtJQY3zU ugYLaiNWVpjE6aDFEsY9h 5AuCjFuH1QUze H6XqBFGdbgfpVp52hM5vL rJzUiR6SVxkJ9AahlC9LT YunJGlKLaiZBP3B57jt7G 2GEAxDQNeZBP7 oLM7cZ7teDotodzujWHol DsgdmVydGljYWwtYWxpZ2 57ULVanSpsMj33sNPvcDa eetD7W6FpHccm dHI+KR31HRBnXD24sLGvd WZrn7eckNz3CtWcJYGeNV S5tQmvUWdry4IqCWBdM28 fhXPpq7W3WGSe wSvjwBYpUnXneZM4sZ2xV Lqtniqhr7maxnndNqyhd3 wmmw73gZ77E33vYCewJSQ oPSIzMCUiIHZh wXrzxm3ckS0bRf8+PGNvb DV1pEM2dR5eLgViDkL1WE pnB747LlQmrEKvKhvdq7n jv8eswGo9FnQu EXEvvrWmpNjbRFU8q1ApC s73B71fZKlqCJLcNSZqGV GdLRZgcRkqyl6xcL7sIz3 +NU5xs3ptht51 vY08aWL+WVPqXFN9qArsJ CvmYWXnsH3oWNqjWjU9ZG PwUfXuxB47rGRmRNpsFs0 nvMpanDedSM7c UYRvcocoh858CuHfm7lvA RXntGEbDCneKTM7T38nw6 L1TYZlASLrFIT2gCY5mM6 hbGlnbjogbGVm dDsgdmVydGljYWwtYWxpZ 733VFZpgDlfHyXyuGNzA2 bobkQCGB1yJabnoCH+PHR aVKA2fEbyQXos UAWykA8lMRQeL5v9OtErZ bA4BHqzS7QjjaJ9DSNidY ElJTVxnMVFeQ4nambmu1e vcjogIzAwMDAw MIn2UNe9LHKooUlbInAnG JY4KnB8SJA4bYTzjI9dlI qaszfoxN0wHkn+RklOOjw vdGQ+PHRkIHN0 bEwaKRpgOFTzsT8zNAWkV 2t7VfWrWnK5AJtsH2Pbdy P3OJXxcXOxXUQlvGHGgU7 gdghkz8xyhbbs RdRkNWVpTFj7YAu5KPLvn JslYcLhXBR5IcN5IYO9pN RdvS6vwHvlyttdtW0lFsa +TVJOOjwvdGQ+ CFRhXLJ4qZonJCrdCUPkw R9dANMwM9w2HbRiLhL3HC uaS4KxpbB5OWWfeFZeTGQ itHIAoP6vepip d4fsjtapZtBpLGCoGGd9Y Tj5UTJvhUfqInWaPPP1Rb G9BQG6lJSojG8jpItwhuy ycN9fZrp+UGF5 ROF8HW83US87Q6KnQicrt GFibGU+PHRhYmxlIHdpZH RoPScxMDAlJyBzdHlsZT0 xYf3zJINdCUCe bGxh (more content not included)... [facility] Coding Summary.on 10-17-2022 Coding Summary. [id number] G h0bWw+PGhlYWQ+YB4QZVQ kW17aoCIkbP5wQ0WQZXyN SywgQVBQTElOSyIgbmFtZ V3zvVDpTZCm IC8+MQ5rQASrDwwoqUZmc 5T9uJT7L18yyz1yDHirwY N0NGFfOgGbueury7glmSj 6IDcuNmluOyBt WGIvmW48QAQ7wT39Jb88n CEtvYIjt1wzgCs9IhWsHX VqRZH7qAbzKIdao9QdLND zK08yyEZuz5X4 DHNrgQlotXMtSaKydDD3a A2pXIcxbthal8phrsrgUm p3bb06uGJpu3Z5uZA0A9O fbqK7OMAveBVl QnxjvFDNtV2ngizmn6jbs kkhAsOsWHYyWJz7UOi2XS FdeAnmRqMcKI81ATS8ZTU mfeByO0FvIETr iFjtNkS5f4X7Xi3ZM9DWH mtzG1OWGQETYHtlbQX+PC 38ep19U9BcNvstWsq1ODW oOWA0eDS5jK5s HUUtRZumz6V2pFL6V3Ypj xObno3vb9oqIVNnVEypC1 7bjJLol1G2YVQupVA3DEB btMyhJkFzaL95 Oyc+FONzuVddh8OnCimuf 1tlt0whtLv7AerkVNAqsi KibQgkLCP9q1MdZn0jYNT cyFO1dBQ0kZ8z RdSmYzX6ACngY812QyFcu QOlLdfzT14hN6QvoBC+PH QlJfw5RXPqcBieFE1eP7A hZGRpbmctbGVm wBwgIL6nVCTektsaSHGiz O7xVRKgG1a2QqDdWhT3HO vlG5VsZYKclntzLt67dS0 bWpDnWaP2AYkf N3QaidV5UDVntGRcTRgbD WY9G06cp7J1GVLbVXSpLO X6oYF4yV5itLziyaendPH mdDsgdmVydGlj CIoeWMxzA299PFLmdYkgO kNvZGluZyBEYXRlOiAgMD MvMTQvMjAyMzwvdGQ+PHR kYGQ5fDqsCNBl rTKoIIdzEr0pyUteuDibC Y1hLBOhyntbLTBhnB0rZY HdhQDefXcdBG2wXMXaqez bl070BkEeNQC9 THRviJYlM0EmjT6xXhDjG LMcLDFzU3UcpVGnVExeX9 42KXbnKtW3ZLMajmKfD3D sLWFsaWduOiB0 f6A2Tx6Li9KqtneuH9Jia BDePqOtAylcMYe1E0PkCm wvdHI+TN17VWMaDE77VVq 0EFT1lGmyOGlv NKHdH8DiiZ9vUfSeBLUxL GRkOyc+PHRhYmxlIHdpZH RoPScxMDAlJyBzdHlsZT0 qQl6kNPHyWUJy fSanuRKsNxXmi3vtYKKcZ DfdVH6psEqyW8XybPC7OY Ply4k8Cd14N72gX3JybPC +XWLwfDB8qOH0 kE9oEoOlWqQ4JUyvF271O hCghMIaQitzy6lfz6kplZ i2ZjK5IXZatgJdaEgwNTM 1r1KoMb73M61b IHdpZHRoPSIxNSUiIHZhb Peddd2uuP1xEm7+PGNvbC R9dAD2kJ6tDrVaErN0YOi kC113BtCmwXWn Avkrx4pju8wnpZt9GsNiN CNtzbHzmVcdGSA2b8TqYu 49W6YweWaol6RpEbm9vf3 6uHYqx3F6dVV3 N5RcRMOlgaulaDOmvMxdW G2jBGQuvmlxHUXkxN6rAU AkD2o3NjCfYdX1KSysE9J isxQ6VRQwjZUb WGTxnFXJgT6aywztl0bjy zepHxUaWDEuHGi0VWt4UN PwdAlgBlGfINY3DyL2FLA 3xESoqV0upCsz rziduM4zGfs+YLL2hNLlf KNROX9cWnwtmVB+PHRkIH X6hWfbVNffMNXjjM0oDYB dM2w0MnApPiD2 DQsgC4RiejE6GDItyHLqN ZXfhOZCiA0snoofr4mtpf unKsCzZEPaBKj6FJs7RGU saWduOiBsZWZ0 AlO9ZDH8kGCmdU6fhBetu bqnzP1pTta+QmlydGggRG M4NUo6L7BfAya7WCWyvYq dQI2sfTFaCWyc Up4rgZkhhEcdFY6bQRBxn vogu265IqSua5mnBYOrcF FwVNvtPUN7X21gv7A1SBN tMAVaCMU3fUQ5 yD4ckLtixzvgvNNbvAihu fSopOxiFWjgSXqaF095LU IbwOqyCdRcPXc3I0OnOul 8MKWrqFamNF2s pSOqMFytXo4flFlolIbbZ Q0uTYSzetnrn917GlYwz5 umFTHevDBhSHmdWGN4T70 qc8S9SFMjZMQj PUK0nCL3jE2rlAtqvfuba GVmdDsgdmVydGljYWwtYW xtE355WSFmrNrhBgAfgPp 8U7EnMpq9DUDy sFffNJ7paZSgAJdtKi3ca WhmlRyyXF1eDYGiduims3 34IrJlw5cfQXKvxWDtQSp iKCC9U59aq6L4 UWQbCWMbKHI2zNQ0bQ0ac GlnbjogbGVmdDsgdmVydG mpTZkcASjaU105RXEsyDz nPlBhdGllbnQg OPgtSFm3N5ScSmpseBM+P H20WQKoZS90fGSwtVRcl1 guiDp1WmYqOTMjAHC2cCk dAAgez9VhSQSv Z52vuIDqo5Y8RWQaxLbda YMrMpAqcFI6sS0bQZhoji nrc3qodurxJtubg4tsln4 5fY87N62uCAgf ZHRoPSIzMCUiIHZhbGlnb u2fkT5rGi5+VGPwtKX4aG C2bF2tZJAiQxR3SWquB22 9InRvcCIvPjxj r0vzp2aovLi2KzR6TXCfj nHmjPqzLVM3p1YvNb83T2 9sIHdpZHRoPSIyMCUiIHZ duKvvku5ogT7t Ii8+NLTgwGR1kFB5vC3sA nIzFtM6UXgtY692ChOgvZ WnYrngE38oR6DxvPT+PHR tLox1EVVtrVgg OT3pmPPdJBocBb0eIMG4D jHhPmAkXRcvV5HzFGFkxu cffhqocVK8AMKlJBYquC2 9Bu7ajIscFTCe pHMZeD1szqtmr8bfmbzgS gDyDVZeZEo8SDd3ANNruY tmZlLrNSX5UbU8RWL4wXR xhI8fxUpvczhc dO7kA8ExSJDillmqNx24f I4zHjCuFiV7KAztMax+Ql TGAq7SZYunIXFIGzYvCGn vdGQ+PHRkIHN0 zOjvGXtjUVPlmT3hYHNkJ 8f2OiDyHfY9JMvvO5JhRN HdrhldYw67aR4xWqGzIqY 5ASxjL4CaqwV1 JXRezXKsVNwcSHU0U00aj 4H3GNQyWUKgPFA1eCH2fZ 1hbGlnbjogbGVmdDsgdmV ydGljYWwtYWxp B180RCSdqWksCdR5SaVyM vJ2VjC6Y8AbNuw9HLFuuK tqBY2jkTPkGPwxSm2zfVf qaNvcEE1tSERq csnnDUUhlA0bMKTelEXeo DsoZJ0zRLGyvpppd345Gh CsFHA1OEExqWGpN3DegU2 yOiAjMDAwMDAw A8BzjIJoDFslO866APyxO wT2RBVojnOvG9TjAIVubZ ncGaW6a1V8Wz77LBJXYET yczwvdGQ+PHRk GSX8vElbMBttUFUioQ6aL ZDyA8j4KxEiJdA5ZMfmH1 KyXSUkpcloPm25uG4tUkK wKtW6WBjyW3Ja grF3PARnxIYeZVqyJGC6Q 24pb0L1SPZlLDNoIAL8wC W3dT4rsOwkbsewuUHniIs gdmVydGljYWwt HCgpB459ZBRzxYffAfNfq WFsZTwvdGQ+WGYkEZT7lV utLZqfIOGpvH3wKKDjM4t 7QjUkYjL8YIxr R3StWBJwkndxOc53iR5iR lNgLpD0NBrfQ2NoqkH6VK GlxIDnQVhbBWJ1R51ke2M 4OWGuYIFgXMK9 rGE7aV5wqKshbykpzMEsq DsgdmVydGljYWwtYWxpZ2 47VJFweOcgHd18cFQcpNa hpgR5B1LwJiaj dHI+HX67CIAcXI24yWTvf ZJko1zznLy3FjBePGElNX C2cMnfPXxen7PtVOJwV97 fvONap1D2BBQe gQyxbLHuWwWerSO0uG9sL Rjazfjwq7avxvktRfhas1 gdmf61yM64M54nKMrvZEC oPSIzMCUiIHZh rMejqw5ugS7xDu4+PGNvb GU1qZU5aQ0hIqSkLaL2IG exK830DcCcgKVvUyoop9j gq2gnbJe2OoJn SFNyikXqcMnqXWU5m9TzR u83G51wDBxuFXYdLNDzFM RfUPQplIoprj4ipJ1zWp7 +MU8uh7dmih55 pC97pWX+EPWhVGO0xRuhX NkkBRCmlX3cJAvnLfI3MH ScPaTsjC85qWCdCSreGt3 cjCwxbOkqQT8t HLOywsmbr969UkZak2tgV NThrPLzZYwoHIM1F56qg6 T3CBTyURPkIBE4rZM7bG6 hbGlnbjogbGVm dDsgdmVydGljYWwtYWxpZ 461ARYqzLlcUcZycDYoX4 yinaWTHK1xCjkurWG+PHR yJVG4zFclDOoo NOAdmZ3nJOAnH1s2JcEcH dN3EShxI1GsveV6YPByhD McNWUwyBHOmO2hcpvne0d vcjogIzAwMDAw VWb5CPo8MFQkhIfcPxEzR TO8PwB6RCK5uWGeoI0tjZ clgdubzR1gTgp+RklOOjw vdGQ+PHRkIHN0 mMecWVjdQJAvdT5yDKIjV 6d3PyDgOcS1BJhxS0Qxyw B4XJEatJJxCSAtmLBBhP6 jaubph3rkxzab SiYuWRHlFMe1YCv6CQUhg VmfIgXaDWL5RuS0EVP0pJ EjmG2xoHhxdhooiN4aPud +TVJOOjwvdGQ+ REOrPWF4rYiyLVdwCMGcb N4iVTBxS8j0TjZqUqF1RC zmV9TzuaR2QRWrkAUtVWS tyDHKkC7ddyfy j0qohafeMlVfMMBbRRt1X Tt2INLnuLtxUzTyZRT0Au O8QGT2yDRjsO2rbCdmzuk jhC4mFlu+UGF5 JOP1DE41IU78J0LdJaokb GFibGU+PHRhYmxlIHdpZH RoPScxMDAlJyBzdHlsZT0 iYc4eBQNtGXSq bGxh (more content not included)... [facility] Consent for Treatmenton Consent for Treatment [id number] #1.00CD:127 [facility] Consent for Treatment [id number]# 1.00CD:127 [facility] Consent for Treatment [id number]#1 .00CD:127 [facility] Consultation Noteon 10-11-19 23 Consultation Note Patient: ELISA LEUNG Age: 62 years Sex: Female : 1960 [...] has, # 60 tab(s), Refills(s) 0, Pharmacy: [facility]/pharmacy #[id number], 166.8, cm, 10/11/21 14:46:00 [...] Oral, Daily, Prophylaxis fluticasone 0.05 mg/inh Nasal [place]: 1 spray(s), Nasal, Daily, Refill(s) 0, Allergy [...] list: All Problems Palpitations / SNOMED CT 402104059 / Confirmed Herpes dermatitis / SNOMED CT 93030964 / Confirmed Hypertension / SNOMED CT 8460427728 / Confirmed Anxiety / SNOMED CT 77798483 / Confirmed Lumbar disc disease / SNOMED CT 5759598538 / Confirmed Lumbar radiculopathy / SNOMED CT 843435063 / Confirmed Chronic gastritis / SNOMED CT 43286003 / Confirmed Migraines / SNOMED CT 13631601 / Confirmed Insomnia / SNOMED CT 041264178 / Confirmed Colon polyp / SNOMED CT 259155183 / Confirmed Chronic leg pain / SNOMED CT 968983278 / Confirmed Laxative abuse / SNOMED CT 996725355 / Confirmed Chronic cluster headache / SNOMED CT 127779106 / Confirmed Vitamin D deficiency / SNOMED CT 15137790 / Confirmed Hyperlipemia / SNOMED CT 85901505 / Confirmed Osteoporosis / SNOMED CT 951089054 / Confirmed 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 Resolved due to patient discharge. Resolved: Impaired skin integrity / SNOMED CT 26014604 Problem added on documentation of skin impairments. Resolved due to patient discharge. Resolved: FH: migraine headache / SNOMED CT 837143006 Resolved: FH: osteoporosis / SNOMED CT 6335823364 Objective Vital Signs 10/10/2022 13:14 EST Peripheral Pulse Rate 62 bpm Respiratory Rate 12 br/min LOW Systolic Blood Pressure 135 mmHg Diastolic Blood Pressure 68 mmHg Mean Arterial Pressure, Cuff 90 mmHg Gen (more content not included)... [facility] Comment on above: Result Comment: Elec tronically Signed By: Sophy Rush PA-C\.br\Date and Time Signed: 10/10/22 13:32 EST\.br\Electronically Co-Signed By: Derick Meza MD\.br\Date and Time Co-Signed: 10/17/22 18:24 EDT Office/Clinic Note-Nurseon 0 10-10-2022 Office/Clinic Note-Nurse [id number]#1 .00CD:127 [facility] Physician Orderon 10-10-2022 Physician Order [id number]# 1.00CD:127 [facility] XR Spine Cervical 2 or 3 Vie [...] mGy = na DAP = na [facility] Insurance Correspondence Off iceon 09-08-2022 Insurance Correspondence Office [id number]#2 .00CD:127 [facility] INSULINon 08-28-2022 Insulin 53.4 uIU/mL Critically high 2.6-24.9 [facility] Comment on above: Performed By: #### C BC #### [facility] [address] [place] [address] Dr. Jeffry Daniels CBC AUTO DIFFon 08-26-2022 BASO # 0.1 103/ul Normal 0.0-0.1 [facility] Comment on above: Performed By: #### C BC #### [facility] [facility] [address] [place] [address] Dr. Jeffry Daniels Basophils/100 WBC (Bld) 0.9 % Normal 0.2-2.0 [facility] Comment on above: Performed By: #### C BC #### [facility] [address] [place] [address] Dr. Jeffry Daniels EO # 0.2 103/ul Normal 0.0-0.7 [facility] Comment on above: Performed By: #### C BC #### [facility] [address] [place] [address] Dr. Jeffry Daniels Eosinophils/100 WBC (Bld) 3.2 % Normal 0.9-7.0 [facility] Comment on above: Performed By: #### C BC #### [facility] [address] [place] [address] Dr. Jeffry Daniels Erythrocyte distribution width (RBC) [Ratio] 12.1 % Normal 11.0-15.0 [facility] Comment on above: Performed By: #### C BC #### [facility] [address] [place] [address] Dr. Jeffry Daniels Hematocrit (Bld) [Volume fraction] 37.0 % Normal 36.0-48.0 [facility] Comment on above: Performed By: #### C BC #### [facility] [address] [place] [address] Dr. Jeffry Daniels Hemoglobin (Bld) [Mass/Vol] 13.4 g/dL Normal 12.0-16.0 [facility] Comment on above: Performed By: #### C BC #### [facility] [address] [place] [address] Dr. Jeffry Daniels IG # 0.03 10e3/ul Normal 0.00-0.03 [facility] Comment on above: Performed By: #### C BC #### [facility] [address] [place] [address] Dr. Jeffry Daniels IG % 0.5 % Normal 0.0-0.5 [facility] Comment on above: Performed By: #### C BC #### [facility] [address] [place] [address] Dr. Jeffry Daniels LYMPH # 2.0 103/ul Normal 1.2-3.8 [facility] Comment on above: Performed By: #### C BC #### [facility] [address] [place] [address] Dr. Jeffry Daniels Lymphocytes/100 WBC (Bld) 35.4 % Normal 20.5-60.0 [facility] Comment on above: Performed By: #### C BC #### [facility] [address] [place] [address] Dr. Jeffry Daniels MANUAL DIFF REQ NO Normal [facility] Comment on above: Performed By: #### C BC #### [facility] [address] [place] [address] Dr. Jeffry Daniels MCH (RBC) [Entitic mass] 32.8 pg Normal 26.7-34.0 [facility] Comment on above: Performed By: #### C BC #### [facility] [address] [place] [address] Dr. Jeffry Daniels MCHC (RBC) [Mass/Vol] 36.2 g/dL Critically high 29.9-35.2 [facility] Comment on above: Performed By: #### C BC #### [facility] [address] [place] [address] Dr. Jeffry Daniels MCV (RBC) [Entitic vol] 90.5 fL Normal 81.0-99.0 [facility] Comment on above: Performed By: #### C BC #### [facility] [address] [place] [address] Dr. Jeffry Daniels MONO # 0.6 103/ul Normal 0.3-0.8 [facility] Comment on above: Performed By: #### C BC #### [facility] [address] [place] [address] Dr. Jeffry Daniels Monocytes/100 WBC (Bld) 10.4 % Normal 1.7-12.0 [facility] Comment on above: Performed By: #### C BC #### [facility] [address] [place] [address] Dr. Jeffry Daniels NEUT # 2.8 103/ul Normal 1.4-6.5 [facility] Comment on above: Performed By: #### C BC #### [facility] [address] [place] [address] Dr. Jeffry Daniels Neutrophils/100 WBC (Bld) 49.6 % Normal 43.0-75.0 [facility] Comment on above: Performed By: #### C BC #### [facility] [address] [place] [address] Dr. Jeffry Daniels Platelet mean volume (Bld) [Entitic vol] 8.9 fL Critically low 9.5-13.5 [facility] Comment on above: Performed By: #### C BC #### [facility] [address] [place] [address] Dr. Jeffry Daniels PLT 343 103/ul Normal 150-450 [facility] Comment on above: Performed By: #### C BC #### [facility] [address] [place] [address] Dr. Jeffry Daniels RBC 4.09 106/ul Critically low 4.20-5.40 [facility] Comment on above: Performed By: #### C BC #### [facility] [address] [place] [address] Dr. Jeffry Daniels WBC 5.7 103/ul Normal 4.0-11.0 [facility] Comment on above: Performed By: #### C BC #### [facility] [address] [place] [address] Dr. Jeffry Daneils FREE THYROXINE INDEX T7on FTI 3.64 Normal 1.30-4.50 [facility] Comment on above: Performed By: #### C BC #### [facility] [address] [place] [address] Dr. Jeffry Daniels T3U 34.0 % Normal 30.0-39.0 [facility] Comment on above: Performed By: #### C BC #### [facility] [address] [place] [address] Dr. Jeffry Daniels T4 [Mass/Vol] 10.70 ug/dL Normal 4.80-13.90 [facility] Comment on above: Performed By: #### C BC #### [facility] [address] [place] [address] Dr. Jeffry Daniels GLYCOHEMOGLOBIN A1Con 2022 ADA RECOMMENDATION SEE BELOW Normal [facility] Comment on above: Result Comment: ADA RECOMMENDED LIMIT 4.0 - 6.0 ADA THERAPEUTIC TARGET < 7.0 ACTION SUGGESTED > 7.0 Performed By: #### A 1C #### [facility] [address] [address] [address] Jeffry Daniels Glucose [Mass/Vol] 120 mg/dL Normal [facility] Comment on above: Performed By: #### A 1C #### [facility] [address] [address] [address] Jeffry Daniels HbA1c (Bld) [Mass fraction] 5.8 % Normal 4.5-6.2 [facility] Comment on above: Performed By: #### A 1C #### [facility] [address] [place] [address] Dr. Jeffry Daniels IRONon 08-26-2022 Iron [Mass/Vol] 64.0 ug/dL Normal 50.0-170.0 [facility] Comment on above: Performed By: #### I SUMMER, VITAD #### [facility] [address] [place] [address] Dr. Jeffry Daniels LIPID PROFILEon 08-26-2022 CHOL-HDL RATIO NORM SEE BELOW Normal [facility] Comment on above: Result Comment: 3.3 - 4.4 LOW RISK 4.4 - 7.1 AVERAGE RISK 7.1 - 11.0 MODERATE RISK >11.0 HIGH RISK Performed By: #### T SH, CMP, T7, LIPID #### [facility] [address] [address] [address] Jeffry Daniels Cholesterol [Mass/Vol] 267 mg/dL Critically high <=200 [facility] Comment on above: Performed By: #### T SH, CMP, T7, LIPID #### [facility] [address] [place] [address] Dr. Jeffry Daniels Cholesterol in HDL [Mass/Vol] 45 mg/dL Normal 40-60 [facility] Comment on above: Performed By: #### T SH, CMP, T7, LIPID #### [facility] [address] [place] [address] Dr. Jeffry Daniels Cholesterol in LDL [Mass/Vol] 178.8 mg/dL Normal [facility] Comment on above: Performed By: #### T SH, CMP, T7, LIPID #### [facility] [address] [address] [address] Jeffry Daniels Cholesterol.total/Cho lesterol in HDL [Mass ratio] 5.9 {ratio} Normal [facility] Comment on above: Performed By: #### T SH, CMP, T7, LIPID #### [facility] [address] [address] [address] Jeffry Daniels HDL NORMAL > or = 60 mg/dl - LO W CARDIOVASCULAR RISK <40 mg/dl - HIGH CARDIOVASCULAR RISK Normal [facility] Comment on above: Performed By: #### T SH, CMP, T7, LIPID #### [facility] [address] [address] [address] Jeffry Daniels LDL CALC NORMAL SEE BELOW Normal [facility] Comment on above: Result Comment: <100 mg/dl OPTIMAL 100 - 129 mg/dl NEAR OR ABOVE OPTIMAL 130 - 159 mg/dl BORDERLINE HIGH 160 - 189 mg/dl HIGH >190 mg/dl VERY HIGH Performed By: #### T SH, CMP, T7, LIPID #### [facility] [address] [address] [address] Jeffry Daniels Triglyceride [Mass/Vol] 216 mg/dL Critically high <=150 [facility] Comment on above: Performed By: #### T SH, CMP, T7, LIPID #### [facility] [address] [address] [address] Jeffry Daniels VLDL CALC 43.2 mg/dL Normal [facility] Comment on above: Performed By: #### T SH, CMP, T7, LIPID #### [facility] [address] [address] [address] Jeffry Daniels PROF 14(COMP METB)on 023 Albumin [Mass/Vol] 3.6 g/dL Normal 3.4-5.0 [facility] Comment on above: Performed By: #### C BC #### [facility] [address] [address] [address] Jeffry Daniels Albumin/Globulin [Mass ratio] 0.9 {ratio} Normal [facility] Comment on above: Performed By: #### C BC #### [facility] [address] [place] [address] Dr. Jeffry Daniels ALP [Catalytic activity/Vol] 58 U/L Normal 46-116 [facility] Comment on above: Performed By: #### C BC #### [facility] [address] [place] [address] Dr. Jeffry Daniels ALT [Catalytic activity/Vol] 41 U/L Normal 14-59 [facility] Comment on above: Performed By: #### C BC #### [facility] [address] [place] [address] Dr. Jeffry Daniels Anion gap [Moles/Vol] 14.5 mmol/L Normal [facility] Comment on above: Performed By: #### C BC #### [facility] [address] [place] [address] Dr. Jeffry Daniels AST [Catalytic activity/Vol] 27 U/L Normal 15-37 [facility] Comment on above: Performed By: #### C BC #### [facility] [address] [place] [address] Dr. Jeffry Daniels Bilirubin [Mass/Vol] 0.2 mg/dL Normal 0.2-1.0 [facility] Comment on above: Performed By: #### C BC #### [facility] [address] [place] [address] Dr. Jeffry Daniels Calcium [Mass/Vol] 9.2 mg/dL Normal 8.5-10.1 [facility] Comment on above: Performed By: #### C BC #### [facility] [address] [place] [address] Dr. Jeffry Daniels Chloride [Moles/Vol] 103 mmol/L Normal 98-107 [facility] Comment on above: Performed By: #### C BC #### [facility] [address] [place] [address] Dr. Jeffry Daniels CO2 [Moles/Vol] 24.8 mmol/L Normal 21.0-32.0 [facility] Comment on above: Performed By: #### C BC #### [facility] [address] [address] [address] Jeffry Daniels Creatinine [Mass/Vol] 0.76 mg/dL Normal 0.55-1.02 [facility] Comment on above: Performed By: #### C BC #### [facility] [address] [address] [address] Jeffry Daniels EGFR-AF HUNGARIAN >60 Normal >=60 [facility] Comment on above: Performed By: #### C BC #### [facility] [address] [address] [address] Jeffry Daniels EGFR-NON AF HUNGARIAN >60 Normal >=60 [facility] Comment on above: Performed By: #### C BC #### [facility] [address] [place] [address] Dr. Jeffry Daniels Globulin (S) [Mass/Vol] 3.8 g/dL Normal [facility] Comment on above: Performed By: #### C BC #### [facility] [address] [place] [address] Dr. Jeffry Dainels Glucose [Mass/Vol] 109 mg/dL Critically high 74-106 [facility] Comment on above: Performed By: #### C BC #### [facility] [address] [place] [address] Dr. Jeffry Daniels Potassium [Moles/Vol] 4.3 mmol/L Normal 3.5-5.1 [facility] Comment on above: Performed By: #### C BC #### [facility] [address] [place] [address] Dr. Jeffry Daniels Protein [Mass/Vol] 7.4 g/dL Normal 6.4-8.2 [facility] Comment on above: Performed By: #### C BC #### [facility] [address] [place] [address] Dr. Jeffry Daniels Sodium [Moles/Vol] 138 mmol/L Normal 136-145 [facility] Comment on above: Performed By: #### C BC #### [facility] [address] [address] [address] Jeffry Daniels Urea nitrogen [Mass/Vol] 22.0 mg/dL Critically high 7.0-18.0 [facility] Comment on above: Performed By: #### C BC #### [facility] [address] [address] [address] Jeffry Daniels Urea nitrogen/Creatinine [Mass ratio] 28.9 mg/mg Normal [facility] Comment on above: Performed By: #### C BC #### [facility] [address] [address] [address] Jeffry Daniels TSHon 08-26-2022 TSH 1.963 uIU/mL Normal 0.358-3.740 [facility] Comment on above: Performed By: #### C BC #### [facility] [address] [place] [address] Dr. Jeffry Daniels VITAMIN D 25 OHon 08-26-2022 VIT D 25-OH 44.6 ng/mL Normal [facility] Comment on above: Performed By: #### I SUMMER VITAD #### [facility] [address] [place] [address] Dr. Jeffry Daniels VIT D RANGES SEE BELOW Normal [facility] Comment on above: Result Comment: <20 ng/mL Vit D deficient 20 - <30 ng/mL Vit D insufficient 30 - 100 ng/mL Vit D sufficient >100 ng/mL Potential Toxicity Performed By: #### I SUMMER VITAD #### [facility] [address] [place] [address] Dr. Jeffry Daniels Coding Summary.on 08-25-2022 Coding Summary. CD:[id number] G h0bWw+PGhlYWQ+KY5XGTQ uP35krVJoaR4AK1xRRX1F EQBBPZIUZC3YPJ0ogVU8M MhsM2OrskMf JbtuuMZlDR28HTd5XXJ5b UhgJOwptM7deDZnH4l3Ue AfXS56cN87VDqvOLElCcD 3LjZpbjsgbWFy H6isQqKmmZRwAum+PHRhY mxlIHdpZHRoPScxMDAlJy GzrSweXQ2lLx2gRRGmDNU vbGxhcHNlOiBj v4iaGERzJWnpMF4suFgsQ 4OkxEB7ESFpy2u5Sl85vE I+HDFjBDF5fXejSKajd07 9GdNxk9iwAAP7 eDTsOCzpCQN5S02tp6N4H ZQgXUZyVZJ4zMT8sK9ovO difjldM9VtxINuRnZ6EJM 8fDNkcD3kjLwp yhjeiH5cQwj+L00BTA7NR KCFLE3PIoj8V6VcSxhfbQ I+BQ64QOJzHX36yHCefLN fp7hyoFm7YfGy RZBiALN3xZdvKNpjr4XuJ PLuL17tiONbq1H0UUBqcY tdbXWsExNbkCU8gT3qAUx gnkhiz7sgepwz Eiubl3djpj42kX11N77dX VnyIQOqGJG2FODmDAPsaG buoq6vtK0aMl3+TCkde6u ca1qstEh4OhYa GZOfhtRxkYrmOKA8e3RcL o24C4KffYibo9RdAfo5dm 91uQQwf6U8uAL1TAhvHYE mlJ2gGEsxSwY8 YAYkIjMnqW63sYSdZDfzJ w5oiRnzoTcaIZ2pFSDaka ruDASzbS8jAYRamPThwHr iNP7wJWSqbzjj g695OdReIQI8WOShtNYcW 5BdmJ5vVrSsLGJhQSIrL7 NrrYPsFAauN024OWzuVwS 7SQZmwjSeW6Wk NVHeeBnxGkU0l5Y0Dl2Zw 2FmssyiOPL3BQpsDGJgZr KdJpFeBqU8L0CqNkt7HAC hcLwlJZ7yO9Ez JJGcihkbizwbkIS7GJIeB YYjwV11jAIoWOvwKf7zi8 Z0u612PXMuKMRpzG57Ys2 udDogMTBwdCBU pS0arpjlx0qijpggTzKsJ XHuASq8TWv3FWXikOmxEk MhICD4ZtZ6IGS5dVQssL7 yaJrjfqotwZ4y Oyc+B26iaJ2bYSG3ISY2o ajdOXUdcaSbIO86KB24Z8 RyPjwvdGFibGU+PGRpdiB twSjbDO6gDsFx h9sze8AdYWlcK7CbMJRxB XyoGiv3LAGdWMX3yNF0rH 7aXDEhRNvlw2E4uHG7M6J bgzGkrg8md1sf MEWlGSvjH35boCNnx5T5P FOfnNQ1QWRyoVcmAqCmmM 93Oyc+EMUetPduj7RrBmn mi6msq9xyaYi1 WgSaJLXfcwQyuZddCYS5t 9YbOy97N58pMJuhOTCoHC EwJZVdUIIifBcbwz2osP5 wIi8+PGNvbCB3 sEX1wG2cTKOgPgC1HCfbX 952LyKuaBVuXloqi9dso9 jvmMq0EtLoKFFtneMjoWg xZJA3y8FpPr74 K80qPQjaGTAlKGVsDSOxX VMtpKpyhh0hiT8kRp5+PC 2fs5aowj52tV50wJN+PHR hTFZ5wUxrZHgk OAZrlJ7wPHnzEzB0ZUBzC eMrrO13yRPkBHhySk9vyH pfeYsmEM7fIMVftomcr37 5PrPyx2yrPCGt hAQtCVszPWS6W06yr7D0G VWqECLuGLP5sCD4hF0lxJ lnbjogbGVmdDsgdmVydGl eKQjqUKcmO655 IHRvcDsnPlBhdGllbnQgT pVaBEj4Z5UcIjt6MLXpnL vyVQ8iqLYxJCbyTr3urOc txBlhBS1eOPLy eateg498LjScl6khKENiw LLwMIojOUU5X55ka3Z7EH NdTBCmGQC6zRC2cR1xgNj nbjogbGVmdDsg pjCezSrsXHulIRsxF158A HRvcDsnPkJpcnRoIERhdG T3QD03JZ92iTWab2D5dDS 6T8FpHJYjngmo pyhvwZJ0LFUhJEQzaK28Z e3iaLimHa0cATOoUFN4UK SnwTFpM9VtgI0zHmCaZXM uPELiF1LoiZXf PXexZ928EOcfNwW0BXVjf oGaR7TkTRIrnNcmDtW3v9 C5Ug2XC3Y6SQ83XT17mAC gw3P7sYU2V5Ip NBLehxtyazrqjLR2XAQaG DOrpQ57Ge3ktYmbIm7mXZ CpVXH4DMMkiHNjJ5YqwX5 yOiAjMDAwMDAw Q7CcrOTdITqzG069GCazI zB5TJLanqOwZ7AmWLVtmI jeGmQ3w1Q9Uz1KTTh5GJ0 7XE67pZDlx1K8 sVL7F0LbXWAmvcakjacrp ID6UNDqDKUvlA52Ha1whC qgVu8dWJPqNCM0AVDgrKM tY8HzoT5xKhLl HKOlQATdA0VihWWoWCgtZ 452GIjaMtT3WUVnboOvI7 AmCWYwuXzyOlH4m3E7Pk5 SFLEkEP90ZNA6 fOQ6OY96TC98T9VjLkzll GFibGU+PHRhYmxlIHdpZH RoPScxMDAlJyBzdHlsZT0 dUh3xNQUuTTGy gNxciZVjHuBzw6bsHNQjJ ZxiFE6csFyrF5DtoVT5KC Yla3u9Fa36E55pF9FroRO +TYKnvFI0hOQ5 hF9rDmYbMfD5UDfyX396K uJwhZMfMwqsh8pfw4jmeO m0CdH1NTUvoqRvuMukEON 8h5BzWy37E67x IHdpZHRoPSIxNSUiIHZhb Lqybr1ofL8xEk9+PGNvbC Y8pMN0yN2iArUzZjK7MMd kU233MmLqpWLp Xdtsc7rbi1bbfAe7MdGrG YTgiuTnqZppIBW9i0FiEn 07K3YyzHirv3GlFki9bc4 6oOYop7J2aMZ1 Q6HqQVZqzydykUWanQorU K4xSPEbfkyoQGScrN6cCM QmL1z0XjOrRzC4FLwaD1B lldM8SVTudRNt IVajAEV2I41bi5J9GLIuP QMpLSE6gEU7cF8poAukgh ogbGVmdDsgdmVydGljYWw fXYncI650BCEp fZqqXMForZ7cCDAnoPRzw QffJM1hPXKulurvTdUGJF 6GFFIxQFmKOLOEFBZ5L7N jLzd1STJraJaj KI5cxMHiBOcvYe1pyFtra WlzXU1eJFAntcxfTMHayJ 7lZFOopOUaoOyyWQ5rTZF nhhbjd762FvQi IVP7VCDvdXGdQ1UwpV5zC pVlWPPaFQEiY5OoxMAeIM ycT660SJsvDrB8BAJjvhA xL3VjYNLnxTan AsU4v4L6Ft3dFK9nEX5xZ IQuCN42EQ08tVRqq8U7vP D1W1XcGMPskiozblpwtKZ 2DQWpPFZfqW23 fDZcOTkuHl8cr6R1h869X GYnUGAroO39Ft4kiIyxCW QrtPXRsA9stgzje9seyrj gIzAwMDAwMDt0 ODf4MDShlFgzSpNeVDV5T gU2BOF6hSUstS1czSwhsd uonB2oIgk+NjAgWWVhcnM 1C5RzVnw3GAJj cYurYI9itYJgKHcvUl4iv YnnaVzwAO0dTTWpqniqAV PhqX0sPMXljGGbtMuyEN5 fNGUodmdsz966 SfOdLIA9CJJahEQaG9Sge U1rMeAzPGWtNMHwW5MpcL UnYKseE588SRvnXgH4TQQ bsjZbN3SxUIEs uRbdMzW6i2Z2Xi9SJY0xc ID3N4VnViu5TVQlfSjgCL 2puPBtJBgbOy3lfNjgmTa tXJ2hAJEulrcv IFEdhY7qVNCzkEDtiPieJ D9cAXIaddsah337HaClQH L8TQOrlYTfT5BtiP3mHmX rFRNyYLYiY8Ab sPUdWWqdW600OIllZuA2K ISajkOhR0ByEBDmjVokXy T2e7I3Az2WGZktSK0eboQ lKW6vcnT2O6Ew PjwvdHI+JQ54OWItHP40c JQhiLRtn2fwoEr5UoNuMN GiJFU2hGykFVrbl0LiEQM yG03uxJHwp5X2 RYGevQprgAOmDnBisJV8q P2sFJtjjrhxz5nyltmyNi iic0aoir74nS50U45uCZh pZHRoPSIzMCUi TYNbdGaxmq7wtO0qNv7+P CZgmZC7kVB1cA1bPeSzOd S4SJkfT108YrGjyQErIqi tw3wzh4izwMf9 LgGhVEItobTjtPsiIRS1p 0LhIh35H87uWYqaJVVwVP SqMEMoGKPlqAyowg8juY0 wIi8+HP4ri2kz ao39iF82rJS+DFLlLDG3e ZidWFohPGLmwU9gRMomIb S8WANkYyGjpB30mYZgILw cVu8evAyywTye UM4aEGPtqlqae462DnGvo 5hmNEBmrINoCQtpVZQ2Z9 1nh1U6LFPkKWBfGZW1tEQ 6pM9ugUmomaya bGVmdDsgdmVydGljYWwtY NpoS839SESvlMrfHnXbmQ IyY6ryayTBNN7wKokzcYP +BQCcJRB8dBoj GNzeLJTafA2rVESiV9t1I rCtVmV3DQzdH0MstoH9ZL BqoCKsRZXjuYVFfG7jgio nd7lpbegdJgMu EKOmNQw6HZs5JAIgoUevL eYcYTE9OsI9VQB4vWPsqB 8bhKhsiiglvH6mCcp+Rkl OOjwvdGQ+PHRk VVX0bBrgEYlvLAQuoI5iN IIoP3j7TyMdOhM6MYezW8 SypjB0DVIaxJSaGDJtoYD HlJ8hxdwrn8pj jxpkMhOuIBUqXGw6GFq1K BUfzKhjIoYxCOZ1ZxI1YM H8qSIeaY6odTdeicajsJ6 wOyc+TVJOOjwv dGQ+POTbFIY4hSwiVRkcN SWbhK5fNOOtO2p2ZiNyMl W2EXruM1PpkaL6KTJyeSW jTZBgcWJIaO4x ftfdg0optmboVaGuDFBcU Xq2JRg8DOOzlEifCuDlYR M9GaU4GLJ4fLYynM2hyZc orztcoA9pAbx+ LWU1NVP1RE78VY18V3RvQ jwvdGFibGU+PHRhYmxlIH dpZHRoPScxMDAlJyBzdHl uLN8nXn1oIFZc LWNv (more content not included)... [facility] Insurance Correspondence Off ice08-24-2022 Insurance Correspondence Office [id number]# 1.00CD:127 Normal [facility] Office/Clinic Note-Physician on 08-23-2022 Office/Clinic Note-Physician [id number]#1 .00CD:127 Normal [facility] Consent for Treatmenton 08-06 Consent for Treatment [id number]# 1.00CD:127 Normal [facility] Consultation Noteon 08-22-19 Consultation Note Patient: ELISA LEUNG Age: 62 years Sex: Female : 1960 [...] has, # 60 tab(s), Refills(s) 0, Pharmacy: [facility]/pharmacy #[id number], 166.8, cm, 10/11/21 14:46:00 [...] Oral, Daily, Prophylaxis fluticasone 0.05 mg/inh Nasal [place]: 1 spray(s), Nasal, Daily, Refill(s) 0, Allergy [...] Problems Abdominal pain, RLQ / SNOMED CT 286497706 / Confirmed Anxiety / SNOMED CT 71843091 / Confirmed 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 BMI 31.0-31.9,adult / SNOMED CT 310907011 / Confirmed Change in bowel habits / SNOMED CT 711116026 / Confirmed Chronic cluster headache / SNOMED CT 245566174 / Confirmed Chronic gastritis / SNOMED CT 71393000 / Confirmed Chronic leg pain / SNOMED CT 158449744 / Confirmed Colon polyp / SNOMED CT 909188500 / Confirmed Diabetes / SNOMED CT 526622025 / Confirmed FHx: melanoma / SNOMED CT 3448469208 / Confirmed H/O: osteoarthritis / SNOMED CT 013836176 / Confirmed 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 History of Helicobacter pylori infection / SNOMED CT 6954834737 / Confirmed Hyperlipemia / SNOMED CT 19608158 / Confirmed Hypertension / SNOMED CT 3349749580 / Confirmed Insomnia / SNOMED CT 902085095 / Confirmed Irregular heartbeat / SNOMED CT 330075669 / Confirmed Laxative abuse / SNOMED CT 215094626 / Confirmed Lumbar disc disease / SNOMED CT 7821788503 / Confirmed Lumbar radiculopathy / SNOMED CT 755272876 / Confirmed Migraines / SNOMED CT 13476135 / Confirmed Osteoporosis / SNOMED CT 450595971 / Confirmed Palpitations / SNOMED CT 331943842 / Confirmed Rectal bleeding / SNOMED CT 879910272 / Confirmed Vitamin D deficiency / SNOMED CT 82963423 / Confirmed Objective Vital Signs 08/22/2022 13:06 [...] bilateral lo (more content not included)... Normal [facility] Comment on above: Result Comment: Elec tronically Signed By: Sumit MURILLO, Eddi Edwards\.br\Date and Time Signed: 08/22/22 13:33 EST Legal Correspondence Officeo n 08-22-2022 Legal Correspondence Office [id number]# 1.00CD:127 Normal [facility] Office/Clinic Note-Nurseon 0 08-22-2022 Office/Clinic Note-Nurse [id number]# 1.00CD:127 Normal [facility] Office/Clinic Note-Physician on 08-22-2022 Office/Clinic Note-Physician [id number]# 1.00CD:127 Normal [facility] Patient Correspondenceon Patient Correspondence [id number]# 1.00CD:127 Normal [facility] Patient Correspondence [id number]. [id number]# 1.00CD:127 [facility] Patient Correspondence [id number]# 1.00CD:127 [facility] Patient History Officeon Patient History Office [id number]. [id number]# 1.00CD:127 [facility] Coding Summary.on 08-04-2022 Coding Summary. CD:[id number] G h0bWw+PGhlYWQ+MD8HRCD hI17sbAYmcA5GT9yTNW9N SNSSXZUPZQ0ICJ1lrWB4N VvfH9OntdTf HbphvWPlKM79LAv6LAM9u OalTQvmnZ6yhUHwV6d8Fo KpSO94nZ66SIufVMOkBwX 3LjZpbjsgbWFy V1cjNdTcpIPiXiz+PHRhY mxlIHdpZHRoPScxMDAlJy SisEyxGN0sHg3dXAKrRCK vbGxhcHNlOiBj e2qgNVPiCBnvVW4psCwgR 1TbuWE8RBAcr9v6Wf38qI I+NKWoTQJ4lHzxIVtxl51 5ZxZkt7byBNF2 zMRlKHsfUII8V62ak4X0I XGeJVPaFDR0iDC0gA7moO vcquyxO5UhkCTrGsQ8NWY 7bFUvzF1kjCcw smidsX0rSkz+F57KAA5ZV NBKQC2TNhs7Z0EgBbmuiJ I+KZ89QEOhGK28oIMeuWD lc7sixAd1XzSd TZYbUOC8qZzeNKbeu1VnO ZQmP81omHJcj5W6TANowI nooVMuCgVnkCD6cF8lRUz ocizji1qotogn Fftzi4hccp90kI53O58kD CrtJGKhZBR2ENFrUJMkwM uzds3xlK3uUx9+BYqom6w an8lqpRx4JfHj BXIfdlXdlUezMJG4e3EoR i29R7BzoXrhb8SrCou6wh 89gSBey4S8aMO0SOnuZPZ suR9jHVdcPvC5 OECfBkUjzO74zEBrWXewL c7oaTabpBkfSK2mXSFzly jfECBpnV3eLBVqiULblBt zIF2mPOJuotyc a241NvUhWQV8GRRvrOUrB 5MoiR0zWlHrUGVdARFhH3 ZpvYViIRtrH370KXpxDsE 1WILolrKwG2Fc DMKwgMpyZtK0a7D3Lh9Mg 0YqaivkAVZ7QOvjPOUzLm FwEaFnGqC8H3LyZcb4FHU diZmwSA6gI2Pt PLSxhibtzajsfPU0FZCdG LKysH28uMPmGDuxNd3sq3 K8e697CBSfYEPdyO50Ai8 udDogMTBwdCBU rI5seylbv5nvjkmuPtOqE CFwEAb4IJs7ZDBjxTlgMn JpNES6BmY0HMV5hMSukR4 rpInhhfwpcY4s Oyc+E11lsP5bZNG2ILK0t vtxQJMprbHpUW86RD08D7 RyPjwvdGFibGU+PGRpdiB lqPmuYK4pEoKx q6pvx4IlTRqiR9BbYDSnY WzuXtr8GVHdSVX7cBX0wR 1cMJVeJBigz7X2cMS3Z8X maaNhqf2ta5oi UTPjXUyzF32ryJOwn4O9L HHkyIF7QOWajPvlIkVajU 93Oyc+VKLexNqvo3IxNsm un9nja1vnxGb1 GmDlGBDlmuMslCvrXND9k 1HxWy68B90eQZqjUYKjKC RtSGJlWSKkpBdjhz5chQ1 wIi8+PGNvbCB3 rKG1zQ2uDYWwJmV4LNfgP 361WwNqzAFeSvdou6jlh5 ucjTw3NcBfMNOcizJivBx xTSG2b2NfQn88 I15kKDdsGDWvFFDdLONhU SMgwDassz9edE8mKr0+PC 4xa9nhjo78qQ63eBV+PHR oHHN8sDorEYvg WSNoqL2eEDpaJyL8MOFvO gLrqU11sJNeEVqhLz7lyL wqdZrfNL5kCFHrpvheu14 3MpXtx7auVZPe pFCeFPxjTUO5E05os8B0A TJnJJDvCFZ4nPW1yW7tkJ lnbjogbGVmdDsgdmVydGl vFRkgWBezA153 IHRvcDsnPlBhdGllbnQgT dNcDKb7C6DqMiy1TAXcpY ueUJ1xdWUgXIzqUu7ltYm hyBrmNN5rKCMh qejwq444DbAcv3doDHDlj BScXYtxCBC8B77gw0B3XG SvDIIfSFS7dGO6nZ5rtNu nbjogbGVmdDsg lyNucXfeKEasIVxbP143D HRvcDsnPkJpcnRoIERhdG O1OJ64NM15aJTpd8H5cIT 2C0EaLCRwpdfk mlvzaTQ8ANEvKSBkaC50W a4kuYisOu2fEMSnQMX7XT HmnFCmI9ZyxA7bVjXqEPP sAXVpT0AltRTz MBpvD367MGfpMxT3HDUny jPcA9EkZJTmcVgrRbD4z7 M9Ul0QH5C6OE94AP32eOJ mp3A3aGV0M4Zp KVZahbqhnpepoEJ9TIBsI TOxzK02Yi0myUxoUn5cGS YuFLM5RQWybUKhK6OcbR5 yOiAjMDAwMDAw K2FsdLJeIXftX866QApxM lU3IESaepPcE9LiDHGjlQ tvOrN3s3O5Hr4HMUs0CP3 4WF02iDNgc4Z7 xRE1I3UuBWJjouhvafmsh VT3AAScXKNnaW86Ah8liR jvWq5gZJOxIJD6NWNkrRC nC3AvzT3zSfWk TWHdBLOdN2HspYQkKIlvT 888VUvaDoR4SNFmhtRaS0 HbUZNtuQoeNlE4r8E9Gs2 NATUeIM82WAO0 kQJ5TT21JW30D6TiQrakv GFibGU+PHRhYmxlIHdpZH RoPScxMDAlJyBzdHlsZT0 aKl9cMLEqNPFw yHkksGWjQiPxv2noDHCuD AhnGK0zxGcmQ9NhyPD0DJ Jsn3l3Tw48Z14tW6CqoRB +VCNpjKZ0nUS5 zR3bWbEbWwY9EWubX521X zXfnUOeEledr9sau1qssX u9ZiN1XGFidaLwcQuuOIN 2k0WtWb95E33s IHdpZHRoPSIxNSUiIHZhb Hvlpl3bvW2mSz4+PGNvbC D7sSK4jH2eSsZgNaH7NGb uM217IwXyjOAg Slxpv4whu9jkuSg7IhZvM YMqynZxeReeBZB4r1CxHg 65Y5EroXhmn7QdUqm7gt0 3mTHbi4K0hZV8 A1IjAKQhejhspIZrpDrqC J4cMHUhtcynGINjhQ5vSN IwQ3o0XlAaOnE0VMgzL2F plcD8PXMwcGMx SPhpLQO4K47vl4L0KHJeQ CDgYCB8dWA5tP2vyKudxc ogbGVmdDsgdmVydGljYWw iSJueN813VXMs jWidLVJliX6zUFIabVPpu EbbZB6mIMChoupeSzZJOU 8JWMCaIDnMSTIJOAT6U1J eYpp3EJHjgCxg GF4xoKZpGBguUm7lxHzat YhiYF5qVMDojqduTVRiaM 7bQKAwuSWaaNjfEP0gKTW efvjav953MwWg NHM4YCBpxDXeG9PqqF3jR pRsMDPsWVPeY3DivIEsDK rvB920JLlbEbN0YFGzwwG wF9JqJEHfiMko BfQ2g0N2Qg6kGM9pUX2cV AGdJW33UM16vYRsb2W5vE Z0T3YaMGHzzztrrjvfjZR 3DOJwJANwcY49 qFLcXGxwDg4zs5S4e910Z OZqDQPfxW50En6hmSmlRJ DydJKBvK0hahxup5hnfup gIzAwMDAwMDt0 KSz4YNWpnHvsCmHpVLX9O xE2HPF2bTUiqH7cyNaefb tllW2dAlr+NjAgWWVhcnM 8K0UlZxq3RXTh lGmuUS9zlHKfDNusPc5ro TlgnRbmKE9fVJShxkvrUC LgfF3kIBDhtDJqePssQH6 mMHTpouklv760 ToCyPBS5WNTchEXhE3Rgl P0eQoCpKQLxOFLlV5QfsS DlTZvsB579LDexYcA7XMA clmShI7LiVRSf iTufAiT5d5A5Ed9XMQ9dz DX5N5KuVmk6ZYSepWzmGG 9xrHCmPZivKm5xzHmtwRl vFL8cWLZrrggj NZFhfG7aDOYwtIRzhMopI T8qZZDozoylu288IjTtYN M9ZYZshQGgP1MfbC5oLtC wJORnITPwG9Fk mKZkPHusW489TKcoAyB9E REczlYlU0EcTZLqhLmdUr X3v0Y1Mq9HHUybLV6tlfI bBG7ghpE3B6Nr PjwvdHI+JH27DJNkSG86l JGncSHnz5tclRt7DsXqFZ UlAOP7qOoeAQeux4RbXAV pD34stWEuf1N2 FXXwbWmoyGVrQeUdoWG5h T1oHCschqjww5nouvwjOv qox3biis50tS53V54iYBs pZHRoPSIzMCUi KJVcrEzlvr3nmI0rUa0+P FKkiFJ8jXB7aV3eNcItKv X2JMznY157KeJntKKmXxo uw2hss0lbaXd5 AkSoMCQhgwPiuKqqUUM8v 1QvCl81A24hPDqdZUKuNG MyENIuPXIviMmjpq2ktA5 wIi8+UH1ux7uo wd64lM86iOH+QAHjNYC7e DdwBJgjRWGtkP1kMXkvGm C3QBFcVzQopQ11wBReJIf eSv1enFvvxIjo PT0zAKMccfqxc523CzBep 0frLOSieRFcWKqpNRM6B5 9np2R2IONbFJMnHPI9vKJ 6fS8pgRpualdv bGVmdDsgdmVydGljYWwtY FlkU823RKUhkUjvZkLygY LqQ6zlwqKZIN1wKbsmeLC +HTCfQAM7fEoz MVdjUHVqxA0qJVIeX1e7F jYpLjM5QXrsV4FwilG9UG WqwYUiUFIoaUGHeE5iidx iz5ssqrfaPkMu PFRzXYi5VPn8YUUyhQmmB iHvFFL8YlZ7IAA4cNOemA 6hoQcfcdyahP2ePjd+Rkl OOjwvdGQ+PHRk LDC0xXhcUWpkRDLrjG5wC SMyU1q8AyFxQqN6LMiwR1 DzokL1VQIfnAPjIICkpQZ MoO9ghifaa1hp ikrmAjWyZNWpUKr2TAz8Y RBhhIdeMrTvIAN2CpR3RP Q1vMIsaI4heHqcvmcroV1 wOyc+TVJOOjwv dGQ+DSRzLOO8hGhkILjcW NJyyU1jSXZoW7i4ClLePr M0ITihG6JjdeW4YATilMC cHJQxtRFFsF2f bflag4lfklfhFcNnIWXtG Kp7FXi6YQAtrEveFaDjQU T2ItL0EZA0fVTmpS1kqTc pmbenkD5aKlt+ RJE5DIF8EF42RC05T8RhI jwvdGFibGU+PHRhYmxlIH dpZHRoPScxMDAlJyBzdHl aKQ6yPs2yAUCz LWNv (more content not included)... [facility] Capillary Glucose POCon 07-07 Glucose [Mass/Vol] 103 mg/dL High 55-99 [facility] Comment on above: Performed By: #### 2 [id number] ####[facility] [address] [place] [address] Consent for Procedure/Surger yon 08-01-2022 Consent for Procedure/Surgery [id number]# 1.00CD:127 [facility] Consent for Treatmenton 07-07 Consent for Treatment [id number]#1 .00CD:127 [facility] Discharge Instructionson Discharge Instructions [id number]# 1.00CD:127 [facility] IntraOperative Documentson 10-02-2021 IntraOperative Documents [id number]# 1.00CD:127 [facility] Main OR Intraoperative Recor don 08-01-2022 Main OR Intraoperative Record IntraOp Document Type FTPM Summary Primary Physician: Eddi Arana MD Finalized Date/Time: 08/01/22 15:35:58 Pt. Name: ELISEO ELISA Amita /Sex: 1960 Female Med Rec #: [id number] Physician: Eddi Arana MD Financial #: [id number] Pt. Type: P Room/Bed: / Admit/Disch: 08/01/22 10:24:30 - Institution: Case Times FTPM Entry 1 Patient Times In Room 08/01/22 11:25:00 Out Room 08/01/22 11:31:00 Procedure Times Start 08/01/22 11:28:00 Stop 08/01/22 11:30:00 Anesthesia Times Last Modified By: Ria Martinez RN 08/01/22 11:31:06 Case Attendance FTPM Entry 1 Entry 2 Entry 3 Case Attendee Eddi Arana MD, RN, Ria Gómez RN Role Performed Surgeon - Primary Scrub - Primary Garment Liner - Primary Time In 08/01/22 11:25:00 08/01/22 11:25:00 08/01/22 11:25:00 Time Out 08/01/22 11:31:00 08/01/22 11:31:00 08/01/22 11:31:00 Procedure LUMBAR EPIDURAL STEROID LUMBAR EPIDURAL STEROID LUMBAR EPIDURAL STEROID INJECTION(.) INJECTION(.) INJECTION(.) Comments Luzma-student Last Modified By: Ria Martinez RN 08/01/22 Ria Martinez RN 08/01/22 Ria Martinez RN 08/01/22 15:34:03 15:34:03 15:34:03 Entry 4 Case Attendee Shashi Ambrocio Role Performed Staking Press Operator Time In 08/01/22 11:25:00 Time Out 08/01/22 11:31:00 Procedure LUMBAR EPIDURAL STEROID INJECTION(.) Comments Last Modified By: Ria Martinez RN 08/01/22 15:34:03 Perioperative Protocols FTPM Pre-Care [...] Myers Given Participants RN, Sumit Monroe MD, Joshua D, Hargrove, Bryce Time Out Complete 08/01/22 11:26:00 Outcomes [...] and tissue Entry 1 Skin Integrity Intact, Superior, Warm, and Skin Abnormality No Dry Outcomes [...] from signs (more content not included)... [facility] Main OR Preoperative Recordo n 08-01-2022 Main OR Preoperative Record Holding Area Document Type FTPM Summary Primary Physician: Eddi Arana MD Finalized Date/Time: 08/01/22 10:43:25 Pt. Name: ELISA LEUNG/Sex: 1960 Female Med Rec #: [id number] Physician: Eddi Arana MD Financial #: [id number] Pt. Type: P Room/Bed: / Admit/Disch: 08/01/22 [...] By: Coco Mendez RN 08/01/22 10:43 [facility] Operative Reporton 2 Operative Report Patient: ELISA LEUNG Age: 62 years Sex: Female : 1960 [...] Arterial Pressure, Monitered 106 mmHg . [facility] Comment on above: Result Comment: Elec tronically Signed By: Sumit MURILLO, Eddi Edwards\.br\Date and Time Signed: 08/01/22 11:33 EST Insurance Correspondence Off iceon 07-24-2022 Insurance Correspondence Office [id number]#2 .00CD:127 [facility] Patient Correspondenceon Patient Correspondence [id number]#1. 00CD:127 [facility] Coding Summary.on 07-14-2022 Coding Summary. CD:[id number]:[id number] G h0bWw+PGhlYWQ+DD9RIPP jU16ttYQcsM0ZC1bCWH9H RXGILMATXL8REM3ldLE8H KjsF2XjdsXn WigkxNOyDC73EXv7FBL3n CiwNIahoA4emQRrQ0f8Os RhNA04sC44IBmmCUDqKfS 3LjZpbjsgbWFy G8jnNrWcnJAfEbl+PHRhY mxlIHdpZHRoPScxMDAlJy ElnIlhSH5xNd6iSYShGHJ vbGxhcHNlOiBj d6mpAAQeYCpfCY3yeXytL 0HohIS7WRIjv1r0Oj23pO I+CFGoHAY6aFrmYFtle15 2GaQxn0moMIA5 mPBfEFimRLD4S82fi0A2R UNvRITlDSE5pNA5lT5buO vjoknzW4KefNPwZoG9YZZ 6aQJrqG7ksOlf gvnatT1uOuh+A57ECV9IJ MWNME6PPgm7U5PgArvnuL I+UF96QFZaWV67yGIumVX zn6ogaIq4SpTt VLRiFUG8sTssVBwyc3IbX YArZ36fcWCup2H1FUImxV dvdDElQtWapSD0nQ6gVWf bxajuy2fibpvf Vrkfn3fmyd77hV14X34yV LviQVOiXQV8QQWgPLOvvE sojm2elD3fOt5+SZwxl5w ec7rkvZa5EcQw UPOhreYupGtbSJH1o7NtZ v77V6UglKoai0ZaSvx5yc 29mAIwz1B1wGL9ZAhjRZL kbV6fXKckPyM8 FXRbTlDujC47xGDtFWaqM i7feSnftOxfBB4eCQNimk mmRNHgcW7gDGHnbKFebMl dZA3tLHYnycux g320FdUmODY1QUSsyAYpR 8XkrY7tSdJqSDWlBUFeV2 MxtKEbLMxzG230XWvpXvN 6GWQcoaIbY0Kg IWKjyWooVxF8c3L0Er3Vw 0IhoocvTBF8FNuwEXByRw J0IzSeXtA4L8UaGwr2PHJ taZfxPP1nS1Sv OBHonzbiqbvieQP2VZNcN AFyoV46jGLsUWyoQj6ir4 C4v929BHMhTEXnyQ78Dr6 udDogMTBwdCBU wQ5cxhkjq8ayvbnsMlZrU NHoLIe6SRq6JZCeqEydPa NuEAT8UwH1DCG7zBUrjX7 zlDxecwwhcG2d Oyc+M62fzH0lGWC7FQQ1j ajrNEVvpjNsHD04OL57E9 RyPjwvdGFibGU+PGRpdiB ipIjqKL9jBuOo j5qlf0NmBNvsP0VuWGHeZ ZolEdu6BLFbXKL6kQW5oW 5dQMEqVVkrg4V8yTK1V9X oidXmzk6hv4zr QRSpGXpjX94mfGZyu1F1C AQvvNZ3WOSrzFsuNkKngL 93Oyc+CNLdrDwle4BoXho bb6fba9jtvKh7 CgFaCAChqlXaiRosCCR2s 5LlYa30T89zMBflOEZwPG GkXVFgWLSbsDdefh6eiI4 wIi8+PGNvbCB3 fHJ5tV5bZGMoYoG4AJtsD 642JxHueFXcKlvfs6skw4 agfWy3CoVmJVBqpuXzbEp zJEX5j9TdYt45 B48gVYjmHHHeJREgZZVaO PXvxMklvn2jwM1gNb6+PC 8jh7mnvm02vF60wSJ+PHR hMJL8wDzjMKyq MUWzqC8mAOntYpB4GGMvJ wCceI76oPJfMZqmHe6reB grqEwnXS2hDPOxkzvhu53 1UvQgg2phVIMw hEAnQZywDGC3T51pc9Y2I YUwDHFyKTA1pTS8jM8hvE lnbjogbGVmdDsgdmVydGl iVWueNKvhG683 IHRvcDsnPlBhdGllbnQgT iKjTJr9R6DwOgc0LNLqcU tnXD5gzQYpZThcIe6dyAy szTffHQ4dLWBk mkxzv789VaEby1svQSGgb ZSmPRkvCNT3P25ly3Z6AY JdFYUkIOO7dOJ8hD9weCl nbjogbGVmdDsg gcMjfDlzYLghSZpeV178A HRvcDsnPkJpcnRoIERhdG Q7SV12LP73fGEby8B0gSP 2J3WzEHTimthm otbjqLE3TSMwNXXxaQ00H y0onZrhYp6kTXHhUII9QJ ElzRPvZ9IzfX2iLvUkSMY wMGPlK3RxfTTr BEcaA112GGgwKxB0FZBoh iReR7NuMMWslCtwLaA1k5 G9So2KF7E3UY90JB08dCF gq7B5uAS4O4Kb FJTpnlocxjfdxCQ0RFYrC JOfoC66Ib8vhJffRh2vUE JfWSO3QOWlmHSyP7BwbS9 yOiAjMDAwMDAw V1HjaGJxUZklW200HKndJ yN9TCGdvlSrX7IqONKwhH oxUwL3n2D2Gx9EZHm9OZ9 5NO98lEUwo3D2 pRT1V8CpZCCsxxnupotez RG8UXKcZSNjwL03Bq6snQ mvLg9oZZMvATU5CAJfyHZ zW3JpjD3xWwVt LFEkWICbT8ZhcEVoQWkiB 178CFzoFcG8JQXyffDqO4 FiSDQjdQreYgN4u9P9Es0 HXMTqHO78QTU7 xSD4MJ42CQ73H6IiWocsz GFibGU+PHRhYmxlIHdpZH RoPScxMDAlJyBzdHlsZT0 cXy1pUVGaCRSv tHpqoHDpSxJuv2emIIKbH UxpQB6kgEqqE5GtyKR1PP Lhk5l6Sr95A28eZ3DkoSH +PXSkgAI1cQG7 nT2xHcXhJuD9VJamH486G lTndIQqLcifw9yan8dawO r1ApE1PGQhyoBhhMasUOV 9r4CuVf44F47l IHdpZHRoPSIxNSUiIHZhb Glxop4vfY4xLu1+PGNvbC O6jYW1xH4rExKeApW4EJe oC582TiImiLXd Nnasd1jva4zncKv7HnGtI YIrrhMbjYptURA4r4CgXg 00Y8AvwKkhl3YgOhj7nu4 2mYAqk4Q1hKO9 D1PfVVRwyglypAZpjEnqE L9nNZRqbzmrEQGpvZ6nAR JyT8t4BzLiKtM3LNvdY7A impB6AHGdlHDb LPpvEYK2D38mi8Z3LFJxV RCaOTL3sYZ0pT5zoErtuy ogbGVmdDsgdmVydGljYWw bFFksW973RTWq gKvlWLGhoN7pHRAkhJKdi WiyHW1fAJVymqbmAqSOVR 1YGLOqZJdVXNZJOBH4D0S gLlh8XCWfuPna TM2xfEIbCYviVe0cmNcwo WywNS9qMJReqqicSCTboV 8aMSDjyNGwcXuzBQ6qGIP aolwjn983AzMp IUO1ZKDuvTYmH0NvxN8bI lKjNNDzWTGuR1NwkPZkWF fjQ520NLqjXrU0XEQzrbJ gK8AwFXIsmOev PoP4b9D5Jr2tUO3iYL2fY MIwWN54HO15hSNxk6W0vB F2J9NlPXOvpxrxvypqqOU 7QWZxIHRhiW37 qYYwAVddYf1dm3B4g021X KDmAQQdqC44Yr4xpRaeTG ZroQLUrQ8yphhvj7ofhgl gIzAwMDAwMDt0 MXl8MTEbzPwsLcHzFYA9K pI6ZTC9rMHkgS0fsMguya fegZ0vZjk+NjAgWWVhcnM 3F1YlJbo3BUMo eTksIQ2noJIjXGalHq8my KnfoJqrFY7yZDFduvsqIG FldR1fURHlnAIpwAxfIC4 yKJWuqwwyj922 IpTrRZA2EIBazKXxY5Lps R8lApWfXFMmJYCaG6CsgW UmVAtjA223GPnxArT8DQB rxpJrI8OrMHKu dZqqDyN6y9D1Ce4OAW2ge XG1S7HdQnm6IWJzcStnMG 1omKUrWEtfEu2iaDcnhWr bHK4kPLUlxzoz MSGigV0oKVHahUZgjLiuF X2hFHOsgsftl484XjRhCO Q0KENqwDOoL3BzcW5cPtF dOGIhBSSdK2Bq bJSmTKftR225PTasEwT9A QIrnuErB6AhFLAgwEtoOw S1k6G0Gt5HNWigXK7bncD fBR1xkhL7J1Lm PjwvdHI+NB80CNZzLO00k IUafTPwl6nhrBs3RtJbXH BbQMU7sJlgNYlkl2UoUYD xF38wrYIdi9Y1 IEUylJnjjDTqJwQyaZJ0l F6mXNvqgzzhu8ifjllbCy yaj2tmuz14aG20P17qDUv pZHRoPSIzMCUi WNTecZkclw3xxC4cGs3+P TRpiSL4bSI0qM6vAlYoOq M4ZDjlN399YbCwgQCjDmj hp9fts4qfmMc5 JoLyDFCpfzOwmWujJCG9a 0PcCc22B30yWWxzFDPhFR AcVNDtXRAeyKwrid8ftR7 wIi8+MC2tu7sa nm65pN94uSR+CSHuMUL1c AshKEykQHOjhP1mQNygBa P2UTLoLjAcjL38pHPwXIr yOq6buTawjRlf PM5fEFScybftx220QhLmg 5ncAUAqqHHrJPkoGNY8S4 3ui7U0QVHmMFWxYEL5vWN 8xU7otFgdbdhl bGVmdDsgdmVydGljYWwtY WvkZ850RGMfrInmAqGrfU ByA2pftlRSBU8iUborrWA +ZZYzQXM2kEmy YNivLKKhoS3jFHAtG7p3K gQnSoX6WIvxT1OlrzT6YU DlnNZvRNLelRBDvM8pjxx ni4ncmbemWpKa NOGuCZc6XBw2YLPhfQffH kTwTQM1AiG8LJI0oGWpyL 7srCenzzfxkC3wUyu+Rkl OOjwvdGQ+PHRk EKZ8fHybVLmiAZGwlJ7pB PAhX3w7MqPmSqR8BYtwX4 OnnnG0LKLelWWcTCBzyFD FkS2hdocjj6hk foveOvXhFQXqJBy7LAw5M QYjaIzjHyCdKIN4XsY1RS F4oJOjeC9kuOdamwuwsB8 wOyc+TVJOOjwv dGQ+PEXgIFQ0jTatFHrxF THdsC1xZQArR2v3BsZbGi R2ZGvsD4AicqG1ZBFenKC xIJGycRZKzR3b iwswb3pgzmxzYwSrAMOjG Oa7SXi6YZAxcZnsPaEvRP J2RpY5DGK5jOZaaL5zpJk ccclmiP2jCri+ SIR1DPU3NH31CU86Z1AmR jwvdGFibGU+PHRhYmxlIH dpZHRoPScxMDAlJyBzdHl iGF5vPy9cRNKu LWNv (more content not included)... [facility] Consent for Treatmenton Consent for Treatment [id number]#1 .00CD:127 [facility] Consultation Noteon 07-11-20 Consultation Note Patient: ELISA LEUNG Age: 62 years Sex: Female : 1960 Associated Diagnoses: None Author: Sumit MURILLO, Eddi Edwards Subjective Chief complaint 07/11/2022 13:57 EST Lower [...] has, # 60 tab(s), Refills(s) 0, Pharmacy: [facility]/pharmacy #[id number], 166.8, cm, 10/11/21 14:46:00 EST, Height/Length Dosing, [...] Oral, Daily, Prophylaxis fluticasone 0.05 mg/inh Nasal [place]: 1 spray(s), Nasal, Daily, Refill(s) 0, Allergy [...] Problems Abdominal pain, RLQ / SNOMED CT 248392874 / Confirmed Anxiety / SNOMED CT 13500285 / Confirmed Abdul's esophagus / SNOMED CT 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 / Confirmed BMI 31.0-31.9,adult / SNOMED CT 118601868 / Confirmed Change in bowel habits / SNOMED CT 474121893 / Confirmed Chronic cluster headache / SNOMED CT 875983730 / Confirmed Chronic gastritis / SNOMED CT 30655173 / Confirmed Chronic leg pain / SNOMED CT 210146993 / Confirmed Colon polyp / SNOMED CT 797979119 / Confirmed Diabetes / SNOMED CT 984793309 / Confirmed FHx: melanoma / SNOMED CT 4196923321 / Confirmed H/O: osteoarthritis / SNOMED CT 218565423 / Confirmed Herpes dermatitis / SNOMED CT 12648383 / Confirmed History of Helicobacter pylori infection / SNOMED CT 0139000922 / Confirmed Hyperlipemia / SNOMED CT 71917150 / Confirmed Hypertension / SNOMED CT 5763657584 / Confirmed Insomnia / SNOMED CT 008557675 / Confirmed Irregular heartbeat / SNOMED CT 574547876 / Confirmed Laxative abuse / SNOMED CT 848323013 / Confirmed Lumbar disc disease / SNOMED CT 7125822284 / Confirmed Lumbar radiculopathy / SNOMED CT 842072825 / Confirmed Migraines / SNOMED CT 06712077 / Confirmed Osteoporosis / SNOMED CT 007717670 / Confirmed Palpitations / SNOMED CT 604239926 / Confirmed Rectal bleeding / SNOMED CT 602851563 / Confirmed Vitamin D deficiency / SNOMED CT 87452296 / Confirmed Objective Vital Signs 07/11/2022 13:57 [...] negative bilaterally. (more content not included)... [facility] Comment on above: Result Comment: Elec tronically Signed By: Sumit MURILLO, Eddi Edwards\.br\Date and Time Signed: 07/11/22 14:43 EST HIPAA Forms Officeon 022 HIPAA Forms Office [id number]# 1.00CD:127 [facility] Legal Correspondence Officeo n 07-11-2022 Legal Correspondence Office [id number]# 1.00CD:127 [facility] Legal Correspondence Office [id number]# 1.00CD:127 [facility] Office/Clinic Note-Physician on 07-11-2022 Office/Clinic Note-Physician [id number]# 1.00CD:127 [facility] Patient Correspondenceon Patient Correspondence [id number]# 1.00CD:127 [facility] Patient Correspondence [id number]# 1.00CD:127 [facility] Patient Correspondence [id number]# 1.00CD:127 [facility] Patient Correspondence [id number]# 1.00CD:127 [facility] Patient Correspondence [id number]# 1.00CD:127 [facility] Patient History Officeon Patient History Office [id number]# 1.00CD:127 [facility] Patient History Office [id number]# 1.00CD:127 [facility] PAP ACOG PANEL 2: 30 to 65on 07-06-2022 . . [facility] Comment on above: Result Comment: Perf ormed at: WB Performed By: #### C BC #### [facility] [address] [place] [address] Dr. Jeffry Daniels Age Gdln ACOG Testing 30-65 [facility] Comment on above: Performed By: #### C BC #### [facility] [address] [place], [place] [address] Dr. Jeffry Daniels DIAGNOSIS: Comment [facility] Comment on above: Result Comment: NEGA TIVE FOR INTRAEPITHELIAL LESION OR MALIGNANCY. Performed at: WB Performed By: #### C BC #### [facility] [address] [id number] [address] Jeffry Daniels HPV Aptima Negative Normal Negative [facility] Comment on above: Result Comment: This nucleic acid amplification test detects fourteen high-risk HPV types (16,18,31,33,35,39,45,51,52,56,58,59,66,68) without differentiation. Performed at: =G Performed By: #### C BC #### [facility] [address] [place], [place] [address] Dr. Jeffry Daniels HPV Genotype Reflex Comment Normal [facility] Comment on above: Result Comment: Crit eria not met, HPV Genotype not performed. Performed at: WB Performed By: #### C BC #### [facility] [address] [place], [place] [address] Dr. Jeffry Daniels Methodology: Comment Normal [facility] Comment on above: Result Comment: This liquid based ThinPrep(R) pap test was screened with the use of an image guided system. Performed at: WB Performed By: #### C BC #### [facility] [address] [id number] [address] Jeffry Daniels Note: Comment Normal [facility] Comment on above: Result Comment: The Pap smear is a screening test designed to aid in the detection of premalignant and malignant conditions of the uterine cervix. It is not a diagnostic procedure and should not be used as the sole means of detecting cervical cancer. Both false-positive and false-negative reports do occur. . Performed at: WB Performed By: #### C BC #### [facility] [address] [place], [place] [address] Dr. Jeffry Daniels Performed by: Comment Normal [facility] Comment on above: Result Comment: Andra Alvarez, Assistant Store Director (ASCP) Performed at: WB Performed By: #### C BC #### [facility] [address] [place], [place] [address] Dr. Jeffry Daniels Specimen adequacy: Comment Normal [facility] Comment on above: Result Comment: Sati sfactory for evaluation. No endocervical cells are present. This is consistent with a history of hysterectomy. Performed at: WB Performed By: #### C BC #### [facility] [address] [place], [place] [address] Dr. Jeffry Daniels MG MAMM SCREEN 3D DECLAN CADon 06-27-2022 MG MAMM SCREEN 3D DECLAN CAD Patient: ELISA LEUNG Exam Date: 06/27/2022 : 1960 Gender:F Ordering : DR EMI FRIEDMAN . Admission #: [id number] Family : DR YASMINE DAMON . Order #: [id number] CLICK HERE TO VIEW EXAM RADIOLOGY REPORT [...] Treatments None Family Cancers None LOCATION: [facility] BREAST COMPOSITION: Almost entirely fatty. FINDINGS: DIAGNOSTIC [...] M.D. on 06/28/2022 at 12:18 Normal [facility] Coding Summary.on 06-26-2022 Coding Summary. CD:[id number] G h0bWw+PGhlYWQ+KW9BZFG vI07ixCJhoV0DI6dSOQ7X TUMZXECIYW7QZW1jxOZ3F DvlH3NesdYe KwmazCUrST26BIe2JBZ5k EokCIsnrB8gxOZhW6k6Ob QyNJ21pH14OIsiWIFeQnD 3LjZpbjsgbWFy R5gaHeGeyMFrVow+PHRhY mxlIHdpZHRoPScxMDAlJy SxxHwaBF1vKg0lMNMvCBG vbGxhcHNlOiBj r7ptXVSlPGgqLL4ksKgyA 1ZdcNZ5RZJoi4i6Ju46gN I+OZMxRPI7cMarDCihn80 6VbJkq7prART8 oOVrZLpsBWN2K24jt6P0C XRvFZAgFTJ7xHI1cC1fdF odcqdaX7GcpQGvOxO6GTS 8qVRhlG4ycAgm yomefE1uXnw+R93FEK6NY RSFXB8TAim5H1EjSttclC I+YM98JSSwHL09hRTzwSS cy7nbrQu8RyOs ZEEkTPL1oOfpYLjvs8ZuC ZTxD02xwOPtp0C2ICJiwH ketGLoUdHrnPZ7eI9qVRn ssydye9fdqxdz Aigrp2thab68eS38S60uU EzpBNXeFGR6OVEzXGUamI itkz5zeG3wGs8+JSalr8y wu3udhFv7EqUh XZNutjSflUxlEVW1c1QhR f55P6JzmIgzn5QePhn3lb 61vJKei5I3jFY9EUprPWM wdX4vPQgiQgT7 YVVeXtCjpU26zUSiCDwyI i1vpPzudMadVV8sIQZsri seJKJjfA4oLHOcwDYmaUt gXU8tOYAkpany l884SmXjKJO8HAFluROjU 6LufU5tQeNhGIMaZOAuB5 HpcJInNHnvB100YTaqPqX 2SGZluaImI2Rg IWOapHaxThX4p4F1Xe5Ps 7WvovzzVHK4IIaeJEKrCo GgThSiCpK2P6CtKtr1ROD vvLmnSX9cH4Jy XBUpnkycpaendGK7FGAmW SIymY37tLJeDOscMl1pi1 V4m835LWWdZOVohH70Pw2 udDogMTBwdCBU uE1onoilz9fdybdtKrBbI ILxACp3NCp9YROajFrkVm ShADH4YqT0NIB0jTJnhR5 cwUqagnxnaJ2k Oyc+K01gxJ1iPXH8LDW9i dvaKNRmhiAgGO90UD28F8 RyPjwvdGFibGU+PGRpdiB wnZhlMH5oRoPk p0lmy4EjZBtdF6SrJOKhF JjrQaw1QHYpYJO7zLO9pC 6jYAXaCEdne8F1pGM5E4I mleNkzd8pk2ic NETmOTpdO08sfQEwp6V7Q CYlhST4YRHbwMzxHgLfgA 93Oyc+KNXiuDaga8IlTmk wq7ljp8segIl1 GvVpURVfaqGsuMznDTS5h 1OdZc32S86kVBikNINfEZ NwLMRsDMOrdBoswn0fnJ2 wIi8+PGNvbCB3 pBS7tA7xASHqAwP6TAmsD 445VfNgoQToRrhgz8nsg6 iblAn7DxAlRSTxhxTcfKa kACD8o3RvJj69 W11aBXtjGWIjNDTpKDEgL PGlqQujnd6xzX0tWn8+PC 1ke9dykp81lU76hKX+PHR yLNX3wXruCZum WUXrxJ1qWSzcCpX6AWOsF hGznN80sJJvVOcyJt3luQ xkcQmgPE1tQVZzavfai08 6CtUyb5scDETw oHRbCSpmGUN4B16xc2L8H BPfMXSfFND3gAN4cV5whG lnbjogbGVmdDsgdmVydGl eTQfdKAvdC357 IHRvcDsnPlBhdGllbnQgT kEeMVn2I1IsRfw2IHAtyE rpFF3wpAHrWZewKz4udKo wiGvnUK1uZXXy nqzkn998UwNal2xrWUVxc ZLxNVzwEPV5Y42xu1P6ME EuHCQqDOP0tTI5cN1dbWe nbjogbGVmdDsg lyJddYpaLFocOPtiD328W HRvcDsnPkJpcnRoIERhdG I6JD12VP92wFVzm1R2gZP 9V2RaDTYpbxer bphowSZ2NMIkESAscK22S v5jwPhvSg2nYARhMZL6LY SeyXPxD6SmeH4yBdNmYPV bJCTjB4GifEGx BVsbD177JSphXwX4QASuf oSvG2WrTTZyeZzvQjE6p5 I4Ce0TQ1P9FL13HI04nUQ sb0M2zMQ4B7Ya JABtkxirktigmQR0OUZeA FPcvW20Pn3muAcaZo3pYW ArGLK2WUNlcRMyI7OzxB9 yOiAjMDAwMDAw Q1FbtVEiKOvoY119RCvqO xD6ELXgmgReY2GoKBNrzN dpMnX8p9U1Ns4HXOt7GH4 0HW54tRCcc4L0 wGG8J1IaRBThbghiyhbte XD8NOHeEXUloT00Wr0tdC dfHk6iIRQyTLQ6VVFyuTO dB9GsvD3rMhVk KBAiFYWcT5SzmCNsQPawE 746UHvqUsD3LLJndjIdA8 McUBTvmAcpLfI3n7A1Ij1 KFMFdAV95RTO0 cQS9DV31JN22A8SeKjnaq GFibGU+PHRhYmxlIHdpZH RoPScxMDAlJyBzdHlsZT0 iOn1kKISzCCVd xXtelTNaPpXgg7mjYOGoU HyqKM4vrExxF2VxwCB6TL Kdk7i2Au87P58gG3DefZG +CUXlhTA2qHE3 mQ5vLhBiYgQ1AAigZ690Y cRepQAnWrzpg8fri3dorS a3MeI1KJFssvSosIayWKK 7m0OjWp86I65q IHdpZHRoPSIxNSUiIHZhb Punzd9llV3lGp5+PGNvbC H7yOR6gR0tLhNbXcJ8PXp mC370KeSujOEd Tuzco9tar4zjsPh7RkTdC RKgraXutAtaVFG5e4TtOm 15P5GefFhrl8QlUpp4ue2 8tPQsh8C7oRL5 E8YbZHDxbzyitPKusIrxJ V3iVDJeqqyqFYYzjT9fBN OrN6u7DsBpJxI4QVffK2R gvsG0ZETxpSCl GAwzTNC0Q35ht9I2KTEyX JQyHGN3uAD6fC3icXlerv ogbGVmdDsgdmVydGljYWw cGClyU882NJMg yRmzBPEfqH0dLWHsfEBgh ZnfED9vIAZnpoayYkYWFA 3JGSGaAScSUAWOFSN7J6U zXjt2FCZwrZlx JE1grXDvMHobGf3afVbsy GknWE6yGMQulzvhOAVgoH 1mJBCjfLSbbHmfEV4gGQA ggzwah213BhJx REO8JVJsxCHzH7SkrN6yQ qKgDKXrAEFmI2GjbNBuZA grC126BXsjNaS3NJSnxjZ hH5XnZUYhdYde SeI8w4O2Rl5cTM1eHO3vP RPvYP78SM07qMKah7C5hC K3W7FtKRLqrblcklchsHE 4DVQkTEMjyE04 vJGzYPzvRq7ji7J9i707N YGdTCBqdY67Km6asJftOD RdrXUSqI4bzwxxa9cmisx gIzAwMDAwMDt0 ELh7YPBzgRroYcRuKNK4S uT7BPT3qJRegI7usGnbkw lipR9aQvb+NjAgWWVhcnM 5F4CvSjd3BHWq lMmlFG9dkUVzEBciDn7jr HvutKzzNB4vXVXobtibLZ WreC3cOKHsjAJdhRzqFR1 qKHNbymqry329 ElAwVWU2DEMdlMBvI4Hpf O6xRxKjLINzIDYpX8WiaA UwVJarU247UEckUqM9ILG vyqSuJ0YnEVPv sOevEsT3f5L4Sm8ZWM9bv CS2S3DrSlg0FMRfeUahKG 5utEWxHHwsMh1djPfuwXk sEQ7rCFFsmuvf YOYwzF0vGEFitXBssNlbM O7cBXXpjygmx393HzGqZJ Q6HOYmrCGpN8IkeA6hFqB kPULdXDIeU8Pi rGWyMSxjZ316NYrbDnT1M JUjhpItS5UmQAMpsOrcZg S4g6I0Ou7OyVBbBEGjNY6 6ZM33WM25A6Bt PjwvdGFibGU+PHRhYmxlI HdpZHRoPScxMDAlJyBzdH xlVG0hIq4yQREkTKLdeZg mtEFdOhNji1sf NNLoSXyfSH3ftWmbS1Ipv WS2VKDsc0t3Jv16S48oO3 JvdXA+KNJeaOH4wZL1uC9 aFhFaFsB6SPdv Q272RsOydADjXxase3ffe 2wshQq2NaEuDIMbicRneX xuZLF6b5OxHo02J89cDEt pZHRoPSIyMCUi UHGmeNuzqw5cbN5gSk7+P HNqrXG7uZG6bJ9pKfGeQr B2NQtnE831ZuQhiPWfNem tF26pW8NfgLH+ VBUbFih5MBKbvLyxFM8op DJhVFspFo3tKIK2GtOaMm IhGUfrN3LlNFFjdhujfhd adWE7ZGQoQIPl tR89Zf7tkGbkGc8tBFQoD ZK0SBTezXErA3UrjI6tWi QeBZYqVXOhQ4OgxOSkHPc lM234XMeqDvU9 GONtyjWnW6WyLIKfwVevO cA4z2M5Nj3HhKxwjLWwCG 0pEzXkYJb6V9NfStj0BXL iyLyeYP8joZGh ARvbEh2kcPosrJswIJ7hY UHebvqrh099SgVdh7dtYA QtiEFaZWpbAGW4Y16jx5D 5NIAhSQRnKTT1 pDA1tW7ddKzarvewwCKys DsgdmVydGljYWwtYWxpZ2 15IGDpsKjhZsXBEby1F3T oXkb3ORZovDez OP2ygBWcLLvyIw3juLkue GdcNE4yISVzpesmv835Vh Osp3llNLPrjSPkFUaaEMK 0R86bh0C8FSKw ZEUxMBD1cSM0mI1nnIijk jogbGVmdDsgdmVydGljYW niEPhmI990QEZlwAuzRr7 EWls3A3RqHdk0 KBMqlVpnWM1xjAXoXDwtK t3jiWriaJmhRJ3sYDClms wny434JuThw3owXYAljFT gQRqmMMD1W17k c3V2PPGkZDIiRQA2yXA9h F6pgPtvujcslPQcoVsdid LxuSerLLboGFelI577NFM vcDsnPlBheWVy OjwvdGQ+OQ95lm53H9RvG eqnSlb0VZSrZHA6kIW2tQ 9pCXMrXFifi5O9oTQ0P8V fhzNfez4mo8mi YXBz (more content not included)... [facility] Coding Summary.on 06-25-2022 Coding Summary. CD:[id number]:[id number] G h0bWw+PGhlYWQ+BC6MYQX mK94nrUQxwV7RL7mOLH3W JPFTNEXQDH1PBB3gwVW6S FxgS4BgbeOx CjxhbSCmUB04QXx9ZWC9a OcmJGacuI9yyMBhB2l8Kr ChLN06oV10CNrqLSSlYnS 3LjZpbjsgbWFy B1oyVyXpdDLgGme+PHRhY mxlIHdpZHRoPScxMDAlJy RhiOtvRM0lEl9xDVWkARC vbGxhcHNlOiBj n3mfTQBiVMloHC6gcYbwR 8CosOP5RUQhq7d1Dq98lZ I+VLIaJIW6gAbjHWjuk51 5HpIdh0qiFSL3 tKQuIRejCAL7T96al7T2H WVqMHFwKDP2sLB3fC5acF mwsqqmA1HiwUAqXrD7IBO 1lPVmzG1gtPec uoqroK2uRxy+K96DMM2AS FTUOY8SJqo7B0KhMfsdtB I+KB98ARHtWH35lZQhrRS sj5eboUk8IlJg RKJkMYY5bJusAAdbm3UuL IZoC12wpQOwr1G3OUKrmR nccSPtDzFxhJH8xC3jAVz ipykhb7klqtyf Tdsov2xrfo59aP21E05iU GlpNEGlZYH6YPJjSUQipC locc8zqV2xRj7+ZVyci3r fd1cztWf8HhCh EKHwsdGarMpwSEK3x5JcH l12E9JkoKpdg4BqIqk8ft 16lMWif2R7zCQ5NXlsKBW rhZ7xCJikOsX5 VYCjDrVqyT88eSTyHSnzA o6lnJiwbAceJV1gEGEvxo zbTXBtfQ2qJISobBQmmDy zXB3gGCPhizyz r606XfXhHYO1YWPdyDBhL 6YmxM4iElZoHSIbXUUzD2 NyuPXjUBujH631ICzoFhB 6KJAnubZiQ9Xe VYFtlHqfGzO5j1O6Th5Zn 1YbeendDIE9RZxrUTKcVr RiYzNeZaE6G2PiXgk3TVL ooOfmLO6pB2Ea GNWnrfaedvrkjOQ8HLWpM JSgfY90rOUyIHpcAq4vh5 P0v318AYZqWJTopW71Sf1 udDogMTBwdCBU vM7zwgfqy1oxnenaWmXbD JBcPQr5HQz9ROXrpTlwHk LsKUT2ZnQ3ZHQ3tYEzqJ7 idShlyfmxeV6u Oyc+W62kpL2tXWC3EBG1g piiKVJiciYiAX10FN02Z9 RyPjwvdGFibGU+PGRpdiB xePclFQ9uHoOk d4kev0PuMYdjU9KuZMVvP KlcPax4CICnOUF3bXV7pQ 4jIBDpBJzhm8B4cSP7O3B kdmTcbo9jb3zf RMBoNFfoC52nsAQeh7N1S CXsdIL0ATJswKazSxVouG 93Oyc+NNBcqVjvw2EbMrz yn2gbt9vorPr8 UvEhWJJtakOxpUtcPPI8i 2JqLs70O21xBArgYVGuMS FwTMVnFMFrcTzabd9ewW5 wIi8+PGNvbCB3 lNN4dN2mUZNcKjX1RWzzO 661OnSlkMGfIpyrm9lqf7 jawMw0ClJiBICshoEkpMu zQYB9y6SoVt75 D15wGHhpYSPgNEZiFDJwH ZCqwAfbqx5psM1uXh0+PC 8xu6wnhm89hX56hII+PHR rGJY2gWqrJIbu CCJjbV8sMYzxTnK0TRYgD qWbrS46vOGfXRwwZe0tbJ mtgMsuOE9hITWamxfif57 9QjInl7eiXKYq iQUzYGklRMP1N03vr7R5W WHcHOJwYAC4jSJ2vJ4rlA lnbjogbGVmdDsgdmVydGl bDGkkIHdlF336 IHRvcDsnPlBhdGllbnQgT bGbGEv2P7XpDus9WORipU hnFN4xiGJkPRkyKt4bxLa hnPtaCP4wXLMc tbqdg807EbGbo1zvWILeu ZLsKCpuITZ2Y90wh5D8ZT JjMTZzRSN3aPP7hU5rfGq nbjogbGVmdDsg gzXhkUyeZNcqDUhqJ549P HRvcDsnPkJpcnRoIERhdG L5RW29AF88dJOxh8K6bYK 9V6BnJIMrhaao uhmfbIM5LQDpLJWjkS98P d7smTvuLe8cGFSsGDD5TJ ZuzWGrH3NkuV5sXnWgOLW xBYHjD4QflTJq EDpmK503TEnkZlZ6VALgg xKhU4RdYSLejPajOaK2k5 L7Kv2ON4L8VC89NN90zNQ kx0E9nFL9A8Tm LPMskjnrzpozcBB6JZVyG YQvcG78Cd0ikBcsDi1mWN RyWBW2OFAczKDxP9MhyS5 yOiAjMDAwMDAw W4HpkBHpKGvtR142XLywK fT9CBRqtnWyS5SxIRNwmB rsNeD4f9Q2Ns1VESq1YG3 4YL04gMTdm9J9 sLA1C9AhLFFblwduleazn XY6SUZyBKIykC38At3osB zqKh3yZAEiZIC7HVUvaUX sQ2QtsE9pEyXm MVByRLYxO9UgeKNnNMgeY 421IWqgCaZ1FCFxxtEuN0 CoJTWsjQhiDoA3v8Q2Ns9 FYZNnPH89XRF5 kFN8FG54BY51H0KcBqexc GFibGU+PHRhYmxlIHdpZH RoPScxMDAlJyBzdHlsZT0 wBn0dKVTeDBOx iErhlRZlMyRpr8sbSWCeY QefNZ3tnNanE9CftZQ5HL Qet7d9Jv15U04cL0EelSY +ZPAtfPZ8cHH5 aY3jJrRcXtV5XYuzD782X pWgoBKyZjkxi9lrt0znnK m7QgH8BVCdnvThqYstQAX 6k3DfSm01R94z IHdpZHRoPSIxNSUiIHZhb Nwumz7xxD5rUn2+PGNvbC I5tSI7rW7kWtPdIuE3DLu hI222JxGtbNXe Ebtor4tus4kfzZx8JlSrJ YQekaXiqVzjSKD2n5WiNr 31A8BsfZtuq4IwFwu7fo0 6oONcu7G5fMB9 X3MjHLAyvcfqtHYsqXvqL O8oIOFbkymkBQFhzT1tCS YuR8m8RdSaBqV8GPbpR4G ftiL6SJVorFUj UOniJHI1Y51mx5B2NYBoR TVxFJV9gHE9yC7bcXsdoc ogbGVmdDsgdmVydGljYWw gLGwdV576QZLz rOnrJAUvhO7kGURagBIkh KiiZW1cFGBlveumMlPTOX 9FPDHdYXwORCWGLRZ9N2J wGgd7YQGjeVhp RR5kxVYeDGdlQx6biDriw VxnDZ7eODXwmcmeOUShoN 6dHSSzlBPhpWsjVZ1aEIY itjfxp451TjOt NLX2VXAluJPmZ5BevM4nG uKuOSGvCBCoZ6PvjEBzQQ poS172YOrxApI4GYBgdyS wY5FnCVPaaHts XaR5m8J9Wx7oZS6aIG7qG SRqRI91FJ52mZBoi0C5oH Z5V2PqISCwqjrdqwcluFM 0EPBaRCFthS02 wJLzAOeiTf1sy2Z0d582O SFoKKIzeV32Td6vxLxcCE HpdXNPlY0khvuea4jwyhi gIzAwMDAwMDt0 HHo8QCZonAfzAkBaGNK8Z fG8OTC9vVPhaH8lfMdrzn plqF0lUuv+NjAgWWVhcnM 6O0UgHyu9OAMb dCinYV5qsOTvLEvrZp9jq FdykCagGJ5lTUQzzqciKU VlaY8iXCVdlJJjqNkoKV7 lOCKxocxlz880 NzMhFKT9WZFcxFNeO8Fle W2vQqWkRNZlHHSsY2LxmN WnQApwC528IYqgRuI7AJK idxJeU5WyZPNy pTahFbO4f6L8Ke7XPG2rd XR2G7IbOar5YSVelUzaWX 0rlLGlSJfdLk1moPsqxTe sZF6eALOjempv WUGnzN5vFZVnlTRawBpaL H8wVPKzulpii437NwAlOT I8PRZfuIHdK4IkuD6nBdF mAAMeVMPhS6Ki kTHdMZjwB529INmzEnM5G SHtxnMcY8EhUREqaGsuMp E2g0S5Cn4NmLXhUCLyPL1 6IA93FS42R9Cq PjwvdGFibGU+PHRhYmxlI HdpZHRoPScxMDAlJyBzdH sbZF2iTk6eGPCdPWCucEw xiHPiEyKiy9ex BDVmWDpnUT2qqUjvQ1Iad WU0IRTgu1m9Jq83E40aY7 JvdXA+OSAegHV1eFN7bI2 vQkQxUnS1UCua Q835IlZfiSRaPdtmu8pfm 7xapIs6IoJgYQRhmhNxjB tzNOY9e0BnBb34C95sBRc pZHRoPSIyMCUi AELitQxzuh7seG9xLx4+P KYtvDT4qDZ5tH9hCnBxYp Y4IKxpM989TdCwcBJtCxk xI44qF3CcjTA+ HEGvItz6ZLDzwZanUO8vm ZFgDHtmWq9pNFI4SxUxCu EdMQnuC0VeJENrprpectm pyKF8QZLfBDCc zU90Tj3pmGvaAr0vLMLgJ UF2RJOwcSQlA6PyzS8hZw BbZLCkQSRfD5OnuPElXDo vG741ECjbNzM2 PAKiaqZoQ4ByDDEluWvlF hI8u7F6Ie8XaZpbuOHcMO 6fBeNrNJq9O9RhWru9JPM ziHbdSW6cuJHh NXrqAj7mdDztxHnmAC3gL BBbfcijf215OrWvg5anEU OizADdOIuuGMZ3Q94ex2S 9NGNqKHXyCDZ0 qYM5dT2vvZwnxbxfpROrc DsgdmVydGljYWwtYWxpZ2 84NMKryZlkGxXBWds4Y5G dTye8KETtzWip AY6toBWnKLbhWb4ieEnxt DaxAC5pWXKkzbove308Oa Gzh9pqBZHmtEFhLUrzMWQ 3Q72yp5T4MKOw EQFcBZA6aIN8gR0upWacx jogbGVmdDsgdmVydGljYW cdILrtH919ONQkaUozWg7 YUqd4J3DeMbp4 ADInoSgdIS3hbGJkTFoyT y4qsGifjEzyLQ8kVWJeot jtu306EnAog7xhCTTgqMD sDHinLUU6S59v g7G6CADkYTIrYDW7sNX5i A2nkOhlbhgtpAKwzUfqep JoiBrfIUhuQFafF128KOA vcDsnPlBheWVy OjwvdGQ+PV95vo01B5MmA xonQqf1ITPkEBZ1mQE3tV 5pVNAoORjum1J3oYL5O2C xlyQqat7on4ek YXBz (more content not included)... [facility] Consent for Treatmenton 06-06 Consent for Treatment [id number]#1 .00CD:127 [facility] Consent for Treatment [id number]# 1.00CD:127 [facility] Consultation Noteon 06-20-20 Consultation Note Patient: ELISA LEUNG Age: 62 years Sex: Female : 1960 [...] has, # 60 tab(s), Refills(s) 0, Pharmacy: [facility]/pharmacy #[id number], 166.8, cm, 10/11/21 14:46:00 [...] Oral, Daily, Prophylaxis fluticasone 0.05 mg/inh Nasal [place]: 1 spray(s), Nasal, Daily, Refill(s) 0, Allergy [...] list: All Problems Palpitations / SNOMED CT 440990062 / Confirmed 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 Hypertension / SNOMED CT 2689436725 / Confirmed Anxiety / SNOMED CT 83359047 / Confirmed Lumbar disc disease / SNOMED CT 1415454235 / Confirmed Lumbar radiculopathy / SNOMED CT 003644594 / Confirmed Chronic gastritis / SNOMED CT 36903238 / Confirmed Migraines / SNOMED CT 71807255 / Confirmed Insomnia / SNOMED CT 963553499 / Confirmed Colon polyp / SNOMED CT 570589607 / Confirmed Chronic leg pain / SNOMED CT 972746860 / Confirmed Laxative abuse / SNOMED CT 951973136 / Confirmed Chronic cluster headache / SNOMED CT 000649539 / Confirmed Vitamin D deficiency / SNOMED CT 18844860 / Confirmed Hyperlipemia / SNOMED CT 83429568 / Confirmed Osteoporosis / SNOMED CT 658330077 / Confirmed 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 Resolved due to patient discharge. Resolved: Impaired skin integrity / SNOMED CT 12859003 Problem added on documentation of skin impairments. Resolved due to patient discharge. Resolved: FH: migraine headache / SNOMED CT 136937064 Resolved: FH: osteoporosis / SNOMED CT 3847550207 Objective Vital Signs 06/20/2022 12:30 EST Peripheral Pulse Rate 57 bpm LOW Respiratory Rate 12 br/min LOW Systolic Blood Pressure 133 mmHg Diastolic Blood Pressure 75 mmHg Mean Art (more content not included)... [facility] Comment on above: Result Comment: Elec tronically Signed By: Sophy Rush PA-C\.br\Date and Time Signed: 06/20/22 12:52 EST\.br\Electronically Co-Signed By: Derick Meza MD\.br\Date and Time Co-Signed: 06/27/22 07:46 EST Office/Clinic Note-Physician on 06-20-2022 Office/Clinic Note-Physician [id number]#1 .00CD:127 [facility] Physician Orderon 06-20-2022 Physician Order [id number]#1 .00CD:127 [facility] Physician Order [id number]#1 .00CD:127 [facility] Physician Order [id number]#1. 00CD:127 [facility] XR Spine Cervical 4 or 5 Vie [...] Coburn M.D. Transcribed by: CAITY Technologist: COLT Dubon [facility] Coding Summary.on 05-09-2022 Coding Summary. CD:[id number]:[id number] G h0bWw+PGhlYWQ+YX3XIDB tH14ykGNalF6TM0wHKT7W UVVEWCKEDA8WHT7utUX2Z JhhS1EmbfIi GagqjKDbNH87INo4WWU2i BrvHJlyfM3cpHJfW1a6Lm WdJT66zT69GUxsRGFcFyU 3LjZpbjsgbWFy A5ajWeGojEDhUuo+PHRhY mxlIHdpZHRoPScxMDAlJy QkuRwfRQ0aFa0rGDUsKWT vbGxhcHNlOiBj q7vgWAEuMZtmQV2tuVzeX 2PkbDX7ZUQpo3y0Fe04iL I+PGNmYCU8zQnoUZrjr54 8VdPqh1pwUKV2 zXCrIIyvCEI2F09ny2Z6O VBtSSTaLWV4iXC2aQ9ifP nxwabbK1RtmBZdDmX8REY 7wSJicF6rfAzs kkzigM2oJfs+Z22ZUF3ZW WJPEK0AZdx9Y5CqHaftrB I+HR52HUIsUA26sDDtsAT zm5zreMn5AxIs RVUdTCO6mDhdEQucc4XcK HDtA57csJWpw3T8ITGtaW jglPRdSiUovUO9aX8aZFf jpuicx2nfwywm Lkgui7gdlj89iV23T95fP OpbUOBvWUC5HOHjPILfmP pgps2xrW6dJp4+DYnkc7x pe3hcoVi9FrSf OENfcbLqmOkzHXX7l0TwN x11J4FnkWkdr5JxWqs5gr 75kMZjg5M4aAR8FYtaOIC lpR2wJJpmQzJ0 CXJyBrUlqJ55oSIfFMzrL a6xgXasqMqbOO0yYQBype twLWPnyL6gEZVtxOIecSw iZN6fVJUykmii e960OgStVUK8PCTncJFsA 6ZvgN4kWzNwWUQvYKScU8 JjhXYqOCivE073WHglOqN 8JEZqjwFbG5Id HIUlpTccXlT7m2H5Dw4Xh 6RbxqxoRBO7IJpvCEGxXq E8DlXtFhC9U5UtCaj9INX nfBocZB3pL3Aw PNLusgznxrrmcQP9FNNcK ACwxW05cDWrTBbrTa8ck2 W6i758OBQoWCMnoY73Aj2 udDogMTBwdCBU fO7kulkii1jayzswYjOhF YJaUNm6YTe6GPUmgWtdFj YuDZD0XmP1RJU4eMLtgL1 kdRccjsbtmZ2p Oyc+M37btC4mKDF6TTL6t kigAFTrisLhYZ53ZU99V4 RyPjwvdGFibGU+PGRpdiB xdDitJQ9sJgKw h1vtb7ZsCXerT5MwITDvS EjmLhs2EZBfNCT2uLL9mT 8tAOQlJNfrh0L6tNV8N8K yaaRnrx7eg1ng ESJeIPbcP62fwCOei2F1T VBbeUZ4BKIxqQmzWxEinY 93Oyc+HMSjcPmyz8IeFpn wx6zgy3zlnNs8 YjBxLEUumkWoyWrjQPP8k 0DlZv75X00fIJryHEOqYG QrWQIpWOLdrHoxum5vmT9 wIi8+PGNvbCB3 rLS1rV4bPKOtWeE3JKhaW 761QqHebDZqAczhn6gzv8 mxmKw7EoXmYGJurdGeqYh wKZX2r2FjOv61 H02zBPewTWUbDOEbAIEoU HXibNmjww3piV3vKm3+PC 4gk8whmy14mC40gHI+PHR kWTI9fXbuVBmi MWUamX0eBEjwPdA2VFPaC iDhwE54lHRkODpbYk0wzU kwvLjmXK4jJIMohxiet50 2VpTnh0rjSQDp hPOaPMbyWDO7H12jb3E9S HNpDELcAOT8wUJ9aP8iqK lnbjogbGVmdDsgdmVydGl uZIncJCwaW328 IHRvcDsnPlBhdGllbnQgT uIxIDx9G0BmSjf2LXMttU ysBO1fzEWiVKtyUh5bcMx kfLsbDH6lHAIg mwffz377FzKgg5jnLIErz VDmHDemRNX2N70ku7H1NS InTPIlJSK6yXT6yA5nwTu nbjogbGVmdDsg ntXzaBbvVCekZEdiI460W HRvcDsnPkJpcnRoIERhdG B8UD18XE29lQKhm2F3qJX 6K8UpGVMgicwh jvpywBW1OWNhMEGylS92W c8fwAmbGg4tDXNvEXP9SM HghIEnP1OcpZ7bKxKwMKO iEJIwH8SsbICc YWucG272JVxhSnP6LULiq vLyN5SjQYIhzIetHpF4k6 G0Dx8HD0G7BV81YY26wDN lj5U0kQV5S9Wa QCHxrregqmmjrZX6ECViI NOxuK41Hk9sfVxlQk2zQS ArGPS5UJHnvJZqE0GaaG6 yOiAjMDAwMDAw N0HjwKSvYAcvN253YTcaA zR7CPDadjZtT8GeZPJpsO gnKcY6m5K9Xi9KLQv6LY0 4LP99qEVrm8A4 iID4E3GfJCMvxdmlkhcrd NE3JIHsHMClhG67Zm1cbV xzOr0mCCJtMAI9OEXdjJX eL8MqzZ6hKdIw ASZcMOGdL0BmmCDxBAueD 800XAwwEpC6FBFghxIlJ3 CuUPIhyQwmQxM0i5P8Fm5 ZPCEaFI54BBV4 vGT1BM27YC84Z8VjJjfkk GFibGU+PHRhYmxlIHdpZH RoPScxMDAlJyBzdHlsZT0 fVm1cBPYySFDb dSwozCDnBrBhu7ohVMOmP QspZP1joJwkD1NvjEH6CX Wmm9x4Lq76X55jX2OalBK +STTlfEA1wJZ8 mJ7sEuMtGhG9EUkfK258M zGfmMKwEizco2urs6ussT r1QgD0PYAncfJidMueFDW 6z2IvIg99T68a IHdpZHRoPSIxNSUiIHZhb Cycwt0jnW8wQz0+PGNvbC B4nCM2aC5bLrQsKmJ6KGf rM391YoLowVVk Iyrlk6hqv1tcqLn9KkGwR MHdebGboDqoMMJ0h3DlXr 54L5HyuEyks7HnIfs1jp9 3hCXqn1P6uQO1 I6ZuRFFuwrfyfEBdmCurT F4fWRQudawpLNFnjG3fFM QbP1e5GlYdZlR1HKmsO0T qvbY4MWVraXFm UJzsUXJ9T50fx0T5SRYnA EQxGPJ5fCL6fF9bbJrtvu ogbGVmdDsgdmVydGljYWw xXAvsM850LGRz hHqtHDJicI2zOIUipVZvr QpwSP3qFDRxqyxfXjQRFE 5FREBvJSkMUCTRBDX2V4G xZqk3EDPqxPlc FE5jtTKaVLuaFo0juElmu VadOZ8cPUCpyghrXFWghN 1yWCSpzJOfuLdcMU5bOKW ecubee738OdRr MLC8KIXcbLAzB5RltS0cZ bPuYVYgDHIgG7BnjEDaIY klH390GOrkMeD7STCuimC rA0IxEEYbtKzw QpY4t6Z8Ad9zLV1mZG2sR BFmBJ31DD37dXMoh4I1pY N8U8OkBIMxzdkhifvpuAA 4TJQiFHWbyG55 zDGtVGxsPz6wf4Y1j785B NFdIZRcwH02Zq4xbVkrEV DruEOOoO4ezpvac6oskho gIzAwMDAwMDt0 BAb5YXTldMqkNvOmBGY5G lY0FXP0rZZjjV3xzEtmmy ijzR0oXsy+NjAgWWVhcnM 0S8OlVze5UAGh iFdnLH1keBDvJTorMr0fo ExlxLltJG2hCTKefsdvES ZrzX0wORFytUTgzRqvLF4 tQOPzoldkm906 JtInKAL9UBViaJXmD2Nga L1tFlUjIHDmFGYuT9OvwC LcKLdrN135BXcmFhF5PFP bzfLnQ8KzKUKp uMraLsJ8e0V8In5WYQ3dp QW3H4PtTbn8QXGhtObxKM 4lqAQbFAqpXz7hgWxniVn oZX9uDJDolbac RMNurW5dDZVgcQYypTucE E9uHSDbfbcsq467VlWrTK X0YODqkUChY3RoxQ0bFsZ bJBEaRLBkI9Tv iDCiOIupX565IPebLuP0Y TSnrnAyA7DrLCRlcHukLi P9q4X5Wp2WdCQpYXAtDK5 3RC11WI53O6Hz PjwvdGFibGU+PHRhYmxlI HdpZHRoPScxMDAlJyBzdH dsBR9hFy0mNTUbOGYstRv dlCIzKvSai3hm IIVlYKadLU2dzVusS7Ltf OX8CJUtu9b2Mv83W82jA6 JvdXA+AZUxrIH0cHI5eC0 sWrIlOtX6KLpi W981OrJcpLReYpvxc4bwl 4ofuRd1RzAeAAFpxsTehK kaTBT1u2YtCw80C73aXKk pZHRoPSIyMCUi KIXvaJqano2jiR8oPw3+P KNltBA1gHN2oV6tVuTlBd G5EJcyA105GrHyxCDhFwc rZ68qA0RjwCU+ QGVkFdn0BDDlpOukLH5hq NIxXWumVx4bXHO8HfRsSc RkHVzeX3YeVKLcflsvwhn rsKL8GPFeJGYn eQ42Dg5rdBghCu2cRWOnW HG2XJEznCXmR2RmlT4dFr PkOTSqUNZsJ6VytHJjTBy lR562CWqmEoX3 AHUzfkNzV1LkFOFcdNgqT pZ0k6N5Tr4DsXgauNGfBL 5oQgYrEYf9H5FcJly1QSI yxIpgPG6jaAOm ALzuTh9bwGlmuAykVH4yD UErxjlao870LpRef7obZL SafNSrEBmiMIM9G29ej4Y 7RWOvHVLjOFE9 aSR9kL6ohLyjodoniVGul DsgdmVydGljYWwtYWxpZ2 68YUVphXbuPnYJJeq2J8S zFlw0RFSgwXec JZ5onNRsVWijFq6owQvbh AflHB6jFLElpoeme762Da Xmi6viPMLhuELhZOxcXOP 7K16kq8L3QVQl UGKhSKL6pTC5bR5owBbks jogbGVmdDsgdmVydGljYW smBWucP233SNUvpBjdKk0 IJih1R2TjElr4 XGWrrOpsFI1awEXrADvwN m2roBqmeOmuLO9sMUOdft ima065OcJqh0pqSMCfmMI wEOimXHO5J70o n6P0VYJfNJArOYD0yCO0i C6eiDsfxpwybRSytBwkqa PbfOoaPMdhWXnbW723NZB vcDsnPlBheWVy OjwvdGQ+KL27yi60Z8HrU svzQsr3ZSZvFGM9cPS1xI 0tAPPwMLddf3T0rOI8A8Z knxGebf6ir4xz YXBz (more content not included)... [facility] Consent for Treatmenton 04-07 Consent for Treatment [id number]#1 .00CD:127 [facility] MRI Spine Lumbar w/o Contras ton 05-04-2022 [...] CAITY Technologist: BARBRA Technical Comments None [facility] RAD - MRI Screening Formon 0 05-04-2022 RAD - MRI Screening Form [id number]#1 .00CD:127 [facility] Insurance Correspondence Off iceon 04-27-2022 Insurance Correspondence Office [id number]# 2.00CD:127 [facility] Physician Orderon 04-27-2022 Physician Order [id number]#1 .00CD:127 [facility] Physician Order [id number]# 1.00CD:127 [facility] ECHOCARDIO M/2D COMPLETEon 0 04-20-2022 ECHOCARDIO M/2D COMPLETE Patient: ELISA LEUNG Exam Date: 04/20/2022 : 1960 Gender:F Ordering : DR EMI FRIEDMAN . Admission #: [id number] Family : Order #: [id number] CLICK HERE TO VIEW EXAM ECHOCARDIOGRAM REPORT [...] Gregg Reyes M.D. on 04/21/2022 at 19:38 Normal [facility] AORTA SCREENINGon [facility] AORTA SCREENING EXAM: [facility] AORTA SCREENING HISTORY: Vascular calcification. TECHNIQUE: Ultrasound [...] by: FRANCO TOMPKINS Date: 2022-04-20 11:04 Normal [facility] Outside Records Officeon Outside Records Office [id number]# 1.00CD:127 Normal [facility] Progress Note-Physicianon Progress Note-Physician To whom it may concern: Patient has been evaluated for lower back and leg pain. But also popping and cracking. She has done PT in the past with no relief and she continues to do a HEP 3 x a week without group home relief. She has used OTC meds, anti inflammatory meds and muscle relaxers without relief Due to all of these reasons I am writing to have you reconsider the Lumbar MRI for possible surgical interventions vs referral to pain management for injections, Thank you Sophy Rush PA-C, [facility] Comment on above: Result Comment: Elec tronically Signed By: Sophy Rush PA-C\.br\Date and Time Signed: 04/18/22 13:50 EDT Outside Records Officeon Outside Records Office [id number]# 1.00CD:127 [facility] Insurance Correspondence Off iceon 04-11-2022 Insurance Correspondence Office [id number]# 2.00CD:127 [facility] CULTURE URINEon 04-06-2022 CULTURE URINE Isolate 1 [...] F Trimethoprim/Sulfamet hoxazole <=20 S F Normal [facility] Comment on above: Performed By: #### U RCX #### [facility] [address] [place] [address] Dr. Jeffry Daniels Coding Summary.on 04-04-2022 Coding Summary. CD:[id number] G h0bWw+PGhlYWQ+DC4BVNH sV14drOLhnX1YS9nGYJ1F PABDKPMHCY1NLX9jaLO6N IirA2OhodJk VygysLStUY68GZv8GVB8a XagZZyfeU1lmOVuA5u8Xa FeDT16bD51PAxiXDNvZiW 3LjZpbjsgbWFy L6ikRzFwqQIsPnd+PHRhY mxlIHdpZHRoPScxMDAlJy GihYjhGE2fEu2kCKIuNXF vbGxhcHNlOiBj m9brVXIaWMidOG3vcGwtQ 5DjlIJ8CDYzo8t0Fd14tT I+XDFeHHD8tEkiCEutb02 6KaBaz8auUHK3 nNXiBObjFCE5V74wj4M2O OSdHZIrCPK5aGX8aT6svE koqaofB0JipORmLgJ2YFK 2qPDcmP4rpAnx xfxhuV3uTyj+I25MKX2CW LGWCA9JUfo5A7MjZapwjA I+AU10RFYhWP65fWVkrGL zq7xovBy1GpDw FMGhLGP7uKyhMXgjl1ScQ UMcL44gxZAsh5Q9ZTXznK fsgVIbAoCgkOC4zL0hCWu descrp5rczkxv Idsrt5qbph07bT15G78yG RrwWLMeUXW0AAAnTKMzwX jcsu8zhM3hXf6+GZent3b tr4thjNh4UrTy CJNzanMbeVjpVGP6u3AqG d01M3UsmSlja5VqWdq4ea 21iGYiq2X8hLH0WVsxXYQ xnK8eYYnnClH2 GGQkMnKmoC81kVEzEBlyX s0ieEfewUnwLD1jFPObhv crVTOgqU0bIFByoQOczVt jKX9gTBHwclut v122OzGuRHX2WCHufALtG 4EkjN2uNhIbCVCqLAWuZ6 RbwIRfRYasJ991NCkhGmB 6HFOxnwRvO8Vm LWBfxFzzXbH2x5O1Hk4Ne 6IhvubbXSH6UFypXEF7Gc FgHrSiPzK3V4DlUgo5KDR wrDczCV3jO0Jh IIRtdikgwzaycGC0OFJjL EUqqM96cGVhDHmtOa6aq2 M4r310WMDlRDYbjQ97Gg0 udDogMTBwdCBU kV8dufdue1afqgpwFxEuC ZHnXVc4RRv3UWBkwVthIv HxSLB8SyU6HXB9lWUzsT2 bxCrretxlzR4i Oyc+P08jcU1kNPN9AMP9k vryOEKbumRdOB53WB67I4 RyPjwvdGFibGU+PGRpdiB amYuiXM7eCbDk v5jxx9ClNTewV2RfEAMiH VpuTmy3GKJcTLL3lDQ8jA 9hHGMhFLbno1D3jZJ3G5O rsjAfdm8tq7vn PDBmPAfkS14xhGCef3X9B PProUZ1GVOizIukTwIylG 93Oyc+WZJckXftz9XyRfa pg1dma1nazIm9 OoLjRBGhplAksYttXRH2y 7HrXw64K37pFOnmTGDlKD EcPUDdBDGxlLwttl8leT9 wIi8+PGNvbCB3 mGJ9kJ6mWJBvWuW7AQptD 639QcXgtSLoZogqw8sch3 zkbTl4UdQsOIKzzbRoiNb oYKV6g0SdSb74 G75sNYkrDOXuRPLjOXZwG PQrhJuupo3yoK0nLh2+PC 5bu1xyyf83jP25jFI+PHR yTHP8xTfcVKjd MILxzI8lFOifLxD2QMSwK vMyqF91iFPrNOvvOm3qzG nncUnrJV1tAFDjcvpar33 0WlMlx3gbOCXh nYRuBEfbMQK4J57ec8G6C JRgHGWrTHT5jSP4bL9fcQ lnbjogbGVmdDsgdmVydGl bJUekXBzxV246 IHRvcDsnPlBhdGllbnQgT jTyMNx8K4EoSii9HULpcL awKK7buCSnLYwaAn7jpEy gySsdCW3zUGKo jxqdp067LcPec3tmMGXrf YVzGQniLOB4K85ww1B8FA BdQCVkRFU2wUX1sE9ybCf nbjogbGVmdDsg zaBktArwFLbmWHciG822D HRvcDsnPkJpcnRoIERhdG G5FG27VS04aFOvr2G2aXF 1V7VpYEUazsak oaxoeNK9QROhKLAqaW28X w4xnHxtQk6jGXReOVS1BR KjdBTqV9MwiW5rLlGtYXT wMTPfH2JagGFi EAnaM347AOvgFcS9OTJxr dLmE1ApDJCarUynSaV2j1 C0Nh9FU2Z0WZ27VA03lTX hd3O5xVM0L9Jr RKKjwwazzaynbFZ6IAExX GLtdA77Zt1ylHzlRi3xMM AgCHK4VPVhaAMgZ2OsxZ1 yOiAjMDAwMDAw Z6XwyNCqDKkyJ475FQtcR uJ8UTKdhcLuR7KnAZUfaO huRxD9a7M5Ul3MFNk7QQ6 3WV94rCGne8R9 zAU9J1HsDUThiijgoqqqy RD2BWHeDNJzzH01Vv7bjB poOj1gAQKkLBZ2IUWeuRF bS9VwkI6xPpEs HKBnFBKjW6MzgXLxZHxzY 592UIodHcJ9RLIrdrEyM3 JrYSIsdDxiDwL7y0X0Fs0 ESQBpFD36REL8 xLP5II11FG02V9OcLzbbs GFibGU+PHRhYmxlIHdpZH RoPScxMDAlJyBzdHlsZT0 bHn6xOMHzHJRl aZhogHJgIaWeo4ziNGNdJ NhuAA9vgDiuT7CisVH5MF Nku8y0Hn33O90uW9KasNO +BZKbuRA3sZI5 fT4zLmQdTfU2UXekW145F kBdrDPgQntjc6mao9papK x8IkO2BKKpqmIdrKqnDCJ 2b5FmXt62B01d IHdpZHRoPSIxNSUiIHZhb Iotgt5boG7kQw5+PGNvbC F9eOK4mS9rIfBfFqJ9OFj wB558GyKvdEJr Tshqm5bxg3ahtYj9UmSjL TFdruEraAxxTBJ3o4PxVk 64X6SfuXxbl9QkMye0xe1 2uNTox2Y6nFC1 I5PuXSNqshbwkLXraMofH B9fNQHbbfjyRDQlzA2iRN SnV4y0YkZmUxW1WFnbR7O zwtX8UQZwzAWy LTayBNY2Y17fi2S6MGCdK MHtYLW0xTT4sA8stZrwlx ogbGVmdDsgdmVydGljYWw qXQogD436DVDy dSzzXDVxkD2bOUGuyQBml KoqSC6jRLMekhfbPoDNZB 4YNAJvQQeNUGGLNOW2D5W yYmg9KHRycUoi UJ4cfTFoXFduQc2zoNvtw JgzHA8zWZTuqvysZPLcuF 2wCDGhvGJdpFydHP0yESV fqowwr480HaHw VSY5OIYrbWIeH1QlwE6wR qWyHXWfDACtZ0BtpAVkIQ ilK304YXnkArN9DNPvtlB eZ7KfVXLniVpo EcT6g1G4Ns5mKB0tBF5rM BJoUA99ZL78uBHgb1M4sS N3M9NvXWGmuwabyksocRK 5FZOnYHBlkK38 lDItZBvkCy7ks4L1j693O HEvXIOldR81On7nwYbzYT FlfJIXvG8dqsfzp4ovhpt gIzAwMDAwMDt0 HRt3BXLmsEfeGyHlFBE3H zQ1UQG9mAQmwR3tkSajoz wilD9tNxc+NjAgWWVhcnM 7S3TwNfy2TKIv tTekRL4zbWCcAZbiMt7qz VsgiApoDV6eSBSzgukgXH QinI2sVFDmhKFdiQjkNV0 gZKEtnpvsh086 LtWqRHT1UAQjkJArN3Dkd R5mJkEpCOHwRBAzZ5GcdR MtGOlbV024YLkwTjM4OOI rizTdC9JfOXBj yEpyZnQ4m3O0Ue7CMW8yk OJ1D9FrGlx5RLZciLgwAN 2wzYMnQMltGm9ypYafyTi kOG6vVTMjngrd PULmpP3yHGWliDUkgWcvD W4eJDFegpbwr853VoPhBU F1MZPvcOMsZ1GnkR8jBlS rYKQhHZLgI4Yo rAPgRAmfI198JUwaZcO7O SBlomYhN6EiSQKtpHhdCc S7s7D7Xe7HbNSbROPbMA6 9IQ82VI08L9Bv PjwvdGFibGU+PHRhYmxlI HdpZHRoPScxMDAlJyBzdH dkSL8dZi9kQGLeJHSokBa mqRSdOmZmr6nf ZIUnEOhqHR9fpQmrM3Tkr XB6KAIsl1o1Mv59H23dP7 JvdXA+HILsgDX8cPF0qN0 aAgCzScO3CBau S782JoIovSOvOtvrf1hyz 4vyiLb7OjFfEJXxxpEpnY vqJOD8j0AqPq73R14yGXg pZHRoPSIyMCUi RKMqnYklsp1arF6uHp3+P TMaoRX1pVR8pF3nVnCyQg F0SHsgC124EzYnvIYeLpo kV90fW0JwbCX+ IXOyKjh4VGSjyFdpWN6xp IWpJSvvYe8gTII8QqKpYi ZyKFrqR8EbQGCiivrtoxt vxZV7QVViVFDf wK02Yg9zjLibNe9aCZJlG CA3JLEllALeN1HyrK7wXy IuHINdGDCaB7NsvZAoRLn lE860NKqkJrD6 KDHnzaKtI7NoZUFbnUqoP iR8l9M8Od9MnAiygWEsFP 9zWwCdTFn4A3IpNon2CCK ryBubFQ5alZDt MRzyUb4wzQsdbDcxFQ8mZ VIqiccts885AsLmc0pbVO PboDNgIIjlYIB1A69uz9C 0BAXmCGIsERL2 oNM3fT3njQavxkpmjLAvq DsgdmVydGljYWwtYWxpZ2 68MMKglMtrMrSRAjf1R0B kXxl9GDKgpGmg YD6ucPXhBVhqIw0crUpkq MqtXW2rLKMtmhmxh323Jv Luk0hkSDUyqSIyPFqqAWY 2M53sr5H2JNQq NRBqITX6eLO3nO3osYhqa jogbGVmdDsgdmVydGljYW agOVmrW440MLPfxNhiCf3 VDif3C5BhIfn8 LEFjiHdkZV6ctOHnCXwpV r1xiJbvvXquRG0nQPPfeq ims635HjRuh3wpPOJflIE aJNdwNBA1F50d q6J5OYYwTWFvBGY2lDJ0o K4fbQmxvywbaUWhnBsgry XnaVgwIEgbCAvzM655WDZ vcDsnPlBheWVy OjwvdGQ+FC89ni97C1RjM andWcj8RSJvVXJ6nKH6pS 4jJQHqQSlkf2R2fUH5G2Z bxwRlxn4ud7mb YXBz (more content not included)... [facility] UA RANDOM W/MICROSCOPICon BACTERIA NONE SEEN Normal NONE SEEN [facility] Comment on above: Performed By: #### U AMIC #### [facility] [address] [address] [address] Jeffry Daniels Bilirubin Ql (U) Negative Normal NEGATIVE [facility] Comment on above: Performed By: #### U AMIC #### [facility] [address] [address] [address] Jeffry Daniels CAST NONE SEEN Normal NONE SEEN [facility] Comment on above: Performed By: #### U AMIC #### [facility] [address] [address] [address] Jeffry Daniels Clarity (U) CLEAR Normal CLEAR The [facility] Comment on above: Performed By: #### U AMIC #### [facility] [address] [address] [address] Jeffry Daniels Color (U) YELLOW Normal YELLOW The [facility] Comment on above: Performed By: #### U AMIC #### [facility] [address] [address] [address] Jeffry Daniels Crystals LM Nom (Urine sed) NONE SEEN Normal NONE SEEN [facility] Comment on above: Performed By: #### U AMIC #### [facility] [address] [address] [address] Jeffry Daniels Epithelial cells LM Ql (Urine sed) NONE SEEN Normal NONE SEEN /RARE The [facility] Comment on above: Performed By: #### U AMIC #### [facility] [address] [address] [address] Jeffry Daniels Glucose Ql (U) Negative Normal NEGATIVE The [facility] Comment on above: Performed By: #### U AMIC #### [facility] [address] [address] [address] Jeffry Daniels Hemoglobin Ql (U) SMALL Abnormal NEGATIVE The [facility] Comment on above: Performed By: #### U AMIC #### [facility] [address] [address] [address] Jeffry Daniels Ketones Ql (U) Negative Normal NEGATIVE The [facility] Comment on above: Performed By: #### U AMIC #### [facility] [address] [address] [address] Jeffry Daniels LEUKOCYTES SMALL Abnormal NEGATIVE [facility] Comment on above: Performed By: #### U AMIC #### [facility] [address] [address] [address] Jeffry Daniels MUCOUS NONE SEEN Normal NONE SEEN The [facility] Comment on above: Performed By: #### U AMIC #### [facility] [address] [place] [address] Dr. Jeffry Daniels Nitrite Ql (U) Positive Abnormal NEGATIVE The [facility] Comment on above: Performed By: #### U AMIC #### [facility] [address] [address] [address] Jeffry Daniels pH (U) 6.0 [pH] Normal 5-9 [facility] Comment on above: Performed By: #### U AMIC #### [facility] [address] [address] [address] Jeffry Daniels RBC 0-2 Normal 0-2 [facility] Comment on above: Performed By: #### U AMIC #### [facility] [address] [address] [address] Jeffry Daniels SPEC GRAVITY 1.025 Normal 1.005-<=1.025 [facility] Comment on above: Performed By: #### U AMIC #### [facility] [address] [address] [address] Jeffry Daniels UA PROTEIN Negative Normal NEGATIVE/ TRACE The [facility] Comment on above: Performed By: #### U AMIC #### [facility] [address] [place] [address] Dr. Jeffry Daniels Urobilinogen Qn (U) 0.2 {Daysi'U}/dL Normal 0.2 - 1. 0 The [facility] Comment on above: Performed By: #### U AMIC #### [facility] [address] [place], [place] [address] Dr. Jeffry Daniels WBC 2-5 Abnormal NONE SEEN The [facility] Comment on above: Performed By: #### U AMIC #### [facility] [id number] Jeffry Daniels Coding Summary.on 03-31-2022 Coding Summary. CD:[id number] G h0bWw+PGhlYWQ+DM5ABNY vV85icZQkmB6ZB8pSMZ3S GXSLMLVRVM3AJW2kbGO2W UwbU6LdtaWc XhoruCKkUO53ZDg8FVX5h UwfEDgtmN9ydBZkW6c4Ef VyYM03jI83TOlzOFHyAeJ 3LjZpbjsgbWFy I7ukDwTduGKnHut+PHRhY mxlIHdpZHRoPScxMDAlJy GevQtiGT2pYg2sTWHbAPS vbGxhcHNlOiBj a4uwWZYbIKufDK6bwOqsY 4YqbOR2WEVdr2k9Sa59nJ I+OOPyXGP5rOmqREfju42 8PhVqc1tbXSE8 rIYkVIipJTO5I90pp7X6B ECpUXRwCHC5kDD0pS0rsP gxlvciA4IsiUIkDpB4LQQ 4wAHtdX9lpFlz qwvhkK8fVya+G20VQO9CC DYHVT9MHdo5Z7CjMhehrB I+JE64APXhBP75fPTfkUV rc1rrfMy9YoEy JUKfPVM0iCzlFBvys0MhR HLyK43pbYTnr1S8EDSsaO oweRRzKgJswRS0rU0aFMk kysfrg1qpoywq Cygbq3qzwn56hV83C21xE PwuFSKzEVI2QJWdSOCcoB oqai5swP8dBi7+OMgpb3r ps4rjbSm0WbNp OMFrqsSbiLpxISE1g0AkD l30L0KbjBbmr1YjCqh5uq 68vXLou3B2fZI4QGmkXEL kjP1pXYluSfS2 OLStJuRgjE64jBUlDPytX f1ziFzrwFpfCA0lFSLmjr rsCGFbnC9qMGEcrHEzkIg yZC2sVMGdbfmd w121DrPpRKD7ALBvjZGuT 4BlpV0zUaCqKDSsNVBnP1 RchLQaGXjgI032GCysBzT 7XZEdanEvL7Tw LHXgsCteUsW1o1R5Hv1Ix 0SqrhsmDSN1KIksFID5Qp Y4CfQkIdG0O4CbWqv1LUO ecGpkVB6rX5Lp EXFtqyrpfyjriSU1MBEgN NUwjG54rZRzASskPv0of7 N3w741MWQaOYNsbX89Ms1 udDogMTBwdCBU pE9mbgoye4ocgewdPbHiT DTkMVs7ECb1MSUsqDslOp MvKRR0CzI3DIA6uDFpxN6 bgJugthkvfG8r Oyc+J11opE9lETQ1VYC2x mtvLTNevdJgVK49FW34N7 RyPjwvdGFibGU+PGRpdiB zoOxaAE9fQxHe g0yuw0VfMYnfF5YgWPTjJ GwnMfd2AAHmBUY4pJH7hH 4fVLFxHEutx9O6jUQ9E1P zwjEamu7qd6zx GOHmPXhkH92lkQBzs7Z2K AUfrEV1MTNxvJrnWfAcyG 93Oyc+HIRulWjnd6RbHxd dm6rsi3hnlGv6 PwJxGFUideFndIxpLNW0w 4ToVi12V22fETsdLNByRG AqQRJyTUOnsVcvpw2ghJ9 wIi8+PGNvbCB3 gIE4yI3dZKVbRdY4RNdgD 889LkQrhYTvDehbm5tql5 pofKh4YvKgWURlfuKgyDu wRSS3x0XnWb21 O15gOPxhXJLsZHFiQGCkN TLgeYpkeu9vxI4yJd3+PC 3ji0milj49aI83dPD+PHR qNAH8gCnbVZnb GIGyjD9eGHdhXuP4CKBiP oNqxI87sOTaFQvqFe3nnE bfeWysLL8zBNDpsmada90 4HiGyt3jePXDd mSZzJJqvPDI5V30ed1A9E WRwWCQfDWH1tBS9cD7wxT lnbjogbGVmdDsgdmVydGl pPJkyTHvpB850 IHRvcDsnPlBhdGllbnQgT zKrEJx1O8GqMik7QVRinQ mqQE9jmRIoLOyoFb2fnTh xgGbcPO0wUIEh wrugu872OpCtd9lgEZMzw MHwZQfmGVS2V30fd9Q2FH ImXWGoIAX1eSW7eC5mlLv nbjogbGVmdDsg owAtnPszQMkxTPkiN433O HRvcDsnPkJpcnRoIERhdG F3HC89IV03jXVnm2O0gMH 4I1QwQMNuwmyd tclmpXM4XJIlPGDhsA43F d9xkWvfTz7bWWFlPPC6KE VopJXdL2PsvB7pGeWmERH wUWUnU8BynVUx UOfvC704ZZcfQjL0AWXyz hUhL8QoROFqnIybAiW4j3 H4Nk1YI2W9CD73VF38vYK mf6P0zCR9Y6Ju PHYuwroymtohhEM5USAsS VIgjD98Jw8gtCxuUz7eJH KnYUE8WFJbuSFlI0XfbN9 yOiAjMDAwMDAw J3TkbKRvEKjnL287ZDqaX cW6EOSocrGaH7LyTCDwkV xeKiI6i0Z6Xo0HTQe0KF0 0LC99vKNal2P0 wED3Y4CuWDHamkojxsbwp XD0BWCpCUAwiW13Wy2tgX bwSy7jMIHsCCC6RJDnjXI vZ6YxgM4bVnYc LWZfIVIuN4KjsNEyYMliO 898YIgkWhU2CMAnhzMnF4 EtYOQkaWrtHvS3v4G9Bw6 NESGeDH07XRI6 oZE1BW14IU92D0IcRhkds GFibGU+PHRhYmxlIHdpZH RoPScxMDAlJyBzdHlsZT0 aQs1vUQVdFKYn vQnggCIpXoTlx4gfMMQxN XsuXR2tjNmaL5IfrHZ4ME Pwb7d3Us12U42xI6GrxEU +AXGepEY6zEW9 zR0aUnQuKoM7YDgjI221M lZawRXhNbhom1wqo4mgdS p9BaX8PVExftUxmZtrAAQ 8t5IoXc14R60y IHdpZHRoPSIxNSUiIHZhb Didbh7pcE7aXy3+PGNvbC O6lBF6oW7lKsEqSbS2YDz oO473UeGgiRVr Eozsc3doc9rrkXo3CuRyZ JHldmWggTxpLYC5n3WzGc 78C8TikKdwl3AmEse7il9 3oDGsk8I2gTQ2 U1EeXWGxpagvdIHjsIekQ H5bVEMafkrdZACmaI7vAS IcF6h7FdWvZnS2JNnjI7A tenO6MXPqcOLi YKtgCII5K82mn4H4WNHhV WFsVPI9iFR6nL2mnZhtgh ogbGVmdDsgdmVydGljYWw pJFgxF176MFQe fCqyIQJrmF7kNOIviTGck EvjPJ8tDBPyvexsXgNGUW 8WJHCjAGlBGWLVNTR1N2G hRrl1WUClfEzm KS7evYSuWGkqLf9hhCxkp RktNK6mHLUqfxvlEUHnxG 5fFAMfaLAjpFjbEN3cBRJ lnlazg302YhRz JSD4CHPvqIJhL7EboI3kB mSeBHKwLBQvV4NoxQCoYM jiX936JSxdIqQ3HQYeygJ jU4RlTRPpfBjb InZ4h8D6Mc1dFA8kTQ1kH LLuNP82TM15jXNxb1S4tA S7L5WiVURivrjnjapzbFD 4OAFoSLCjoI52 mNEvZAorYy6es5O2e901A RNeOSEqeI90Vx9vqYvkZN YofKMRgK5nsfsft3ploca gIzAwMDAwMDt0 WTj2KZElfLjcUzRqSNO3J sP2VYN0mQEwbW3dnDcapw skdS4eFyj+NjAgWWVhcnM 1X0MsBbo6TFFi dDzbHO7ubAPaCVziWr9vq OljtIwvYO8eMARysryoWA LbdT6rZTAioDCvpGmwFS6 vZUJqehsco706 SqZmAMZ5PZGyeRSdX5Tdv A6yPtZdWEXvYLYlX5CatD DhOYpaG337BIapPjA8TNI rvuTyN3GdLCQw hHsaDuG7u9L5Ot8MXE2sg EI5R0QcJgp7DFUjnKbcED 3tbPOwZCybRj0ekIdhhLo qSI1aSIEjmrms BCWfhS1dOAHrlUCogPkeS J6zIEIdrmmjv134YiUmXB S5KXGhdQHfX2IerD1zGnZ oJXNvOHYhM5Yl eFBmTYseZ400ZIjfSoY2U THfhdMpZ8IoJKSfqFavEz F6b8Q5Tl9PyJTlDYUmRN2 5DF92TQ42P0Wt PjwvdGFibGU+PHRhYmxlI HdpZHRoPScxMDAlJyBzdH lgIS3pPj7vSRKeICPuhRt tsEBhPdObu6ph LQLjZSyvOG5sgPzdZ3Drf DF0DSYlb1i3Xr33E51pA1 JvdXA+DZEhjIZ8zZB5mX5 bAkHmMxO8WQfa Y264SyYsmYPoKxcxz4jna 8yvwQp3BjYsWSOnzgQhzI qmMIF6h4CrWw59L04mUMq pZHRoPSIyMCUi XBAniVekop0iyQ4dRy5+P JJnvZI3fFM9pM2bExQfCn B1FZqeZ490QtArsAQiSpo zB09aK2WtcSZ+ UOJpAkb2NYEqrOgyLH1lk XAnNTwsRx1mOTF9LoAhWr ItDUojR5ZwZKGjmiittjp fyIB5YMXnRZMb kI97Xs2xhGeqAz4fHIOlP ZF3TSAgsBWzY3JusY5pSd SuPBAyJPAaI0GykLOyGXv oY946PQpoFyT5 OBJacwYeW6UfCTKcgUkcF qV6v7W4Ie9JhCoclCElAV 6eFeTzGBn9X4HqQia1HEN thZotHF7yfQSa EJdjMz6ksQilrHqkSJ2iZ XHswnceu503PtIlb3dnIL DhgTEpZNlyXNW8B38lu4O 7DIUjRNTjCON8 hNZ1cG0qcXcmtdhflDHoj DsgdmVydGljYWwtYWxpZ2 60WHSemQqyCcVNQct9Z5K qYum1VQLfuCkm YY5ieAIzMIdsTg9goLiel QkuCG5kGNEmsppmf670Zk Erd2fwQPSdnAHjHQxyWHA 0X31ds4A2RYXk URWoVSD8oOG7xM8rvTdro jogbGVmdDsgdmVydGljYW wbMLdvM245ZIDpdIkjNc6 XIoj7X8RsBxw5 PPVkwAsgMV7jxVZlYShjH d8seHagmOdwRI4dYROtxg evn292PwAbt2ceLFAbgWH mGXbgSJD7A75q q7M9KZZqXEEsVEJ8fCM3t G0cbRiwgsrtxKTvzSeuoo TagHuqHZoqZUgvR414VAW vcDsnPlBheWVy OjwvdGQ+MT71hm36L4WgZ pmfPjm0IKBtDZT8mYI4qH 7tSJNsTSyea2O6qJL6O8G zshGfhs4ph0er YXBz (more content not included)... [facility] XR Spine Cervical 2 or 3 Vie [...] Aldo Coburn M.D. Transcribed by: CAITY Technologist: [facility] XR Spine Lumbosacral 2 or 3 [...] Aldo Coburn M.D. Transcribed by: CAITY Technologist: [facility] Consent for Treatmenton 03-07 Consent for Treatment [id number]#1 .00CD:127 [facility] Consent for Treatment [id number] #1.00CD:127 [facility] Consent for Treatment [id number]#1 .00CD:127 [facility] Consultation Noteon 03-28-20 Consultation Note Patient: ELISA LEUNG Age: 62 years Sex: Female : 1960 [...] needs to get it taken care of. Rygz-klx-byuexis anti-inflammatory medications do not help. The muscle [...] has, # 60 tab(s), Refills(s) 0, Pharmacy: [facility]/pharmacy #[id number], 166.8, cm, 10/11/21 14:46:00 EST, Height/Length Dosing, 84.8, kg, 0... 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 Hypertension / SNOMED CT 1199007304 / Confirmed Anxiety / SNOMED CT 16808537 / Confirmed Lumbar disc disease / SNOMED CT 5078919489 / Confirmed Lumbar radiculopathy / SNOMED CT 671271804 / Confirmed Chronic gastritis / SNOMED CT 25847853 / Confirmed Migraines / SNOMED CT 51362039 / Confirmed Insomnia / SNOMED CT 722822499 / Confirmed Colon polyp / SNOMED CT 204267157 / Confirmed Chronic leg pain / SNOMED CT 947152592 / Confirmed Laxative abuse / SNOMED CT 317899651 / Confirmed Chronic cluster headache / SNOMED CT 092222698 / Confirmed Vitamin D deficiency / SNOMED CT 70139811 / Confirmed Hyperlipemia / SNOMED CT 87106058 / Confirmed Osteoporosis / SNOMED CT 582789577 / Confirmed 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 No edema. Musculoskeletal: Normal range of motion of the upper and lower extremities Normal strength of the upper and lower extremities??12/08 Skin: Unremarkable Results Review Cervical x-rays. Done today. No report. Status post C5-6 and C6-7 ACDF. All instrumentation in good position. Impression and Plan Patient is a 62-year-old female. She underwent previous C5-6 and C6-7 ACDF. This was done on 10/18/2021. In regards to this she still has some intermittent posterior neck pain. We had a long discussion abo (more content not included)... [facility] Comment on above: Result Comment: Elec tronically Signed By: Sophy Rush PA-C\.br\Date and Time Signed: 03/28/22 12:44 EDT\.br\Electronically Co-Signed By: Derick Meza MD\.br\Date and Time Co-Signed: 04/04/22 07:48 EDT Office/Clinic Note-Physician on 03-28-2022 Office/Clinic Note-Physician [id number]# 1.00CD:127 [facility] Physician Orderon 03-28-2022 Physician Order [id number]# 1.00CD:127 [facility] Physician Order [id number]#1 .00CD:127 [facility] Physician Order [id number]# 1.00CD:127 [facility] Coding Summary.on 12-29-2021 Coding Summary. CD:[id number] G h0bWw+PGhlYWQ+ZX6AOBU sF37ldIWnfI1LN3qKDA0R UZBLHVSUFR5PPZ0ksNJ1W QqhI3IfntRr TqhaqSDfVF61ASq9ALE0f AywKRjdnK6zcXKdO2b6Cm HjPO52pR18RJmjTZXnCnV 3LjZpbjsgbWFy H4zsLdCdeGTtThf+PHRhY mxlIHdpZHRoPScxMDAlJy PduRceYT4aXp6bVUHtGPY vbGxhcHNlOiBj h5pyYNUjFHuhCR1quLzmQ 6MzjHU9GZVgy3y5Pn10yI I+XXYnRGN2kSrhJTlrg57 2AuSoo4xvXNW6 zUQzIXjwCXN3F80ot8A8G VBuLHAzMBI2jFZ2rD2daF iborjjT1YbzGHbUcK8XMU 2vSFynK3jrGba lzlwtB6oChd+X45DZV0CX IYSBD0IHep2E5YyMpfrxS I+PI70EWUdSG77pVUjnCB rr7zagLi7TsEm SVOaOAK7eOmfRWkae4TsH LPjZ22ajWAos3S4OCYdfL ftrKPwYxOrkPI5xJ7oFJp efszeb8fecsef Nujih2gmtf83lC13H61aH LwnDZJaQGX3ZPFhPVFoyV guku4vnI6xLw1+HAwfc5l qb5baiNx1KlYz TVZdswGzhIckJHY6q0AlX m51B5OihDxde8XtOgt3kz 89zVEsi1C2hMS6IGllDNL reZ8fKAzuBjF5 WPNeCbHmsT79jFOlKGtwE b7kfSufhOtuZI1hTBIfpc spAGKlpT0lOWWlmAPxtZx kMN3oHFKdtslq g067AoBbYSX6UJSvvVGrJ 2CmdV9jKzUnJKFcGTBqE2 LybSCnDFyoI195FZjzRwZ 1WOIvfzLqY2Ox OOIyxWueOfJ0h2E5Ac7Rr 1LcdummFLE6JYcfSZS4Lv W9ZeLySmK1I9EoEea6BIL gjOmrAH4kV6Fq CBIocmjlfutnhJM5PGGeJ AZeiQ76iLChXGngQs9tz4 M2h616URZqMZVdkK35Si8 udDogMTBwdCBU pL5hsdwcj5ykxahyHqTvZ NEjRIv2HKw6SHHeiVgkWy BuECT5NpX8XHU8iMHsyR4 syAncvyglbV0t Oyc+M21xtJ5oHUT3AEK3b erhMTTisyAfOW61GY62Q6 RyPjwvdGFibGU+PGRpdiB mzYbtUH4dZdTa k0gxu7JtNCoiW3RgCUEqW DiuJdt1GARmXAN3bAC7rU 9gGOUmDIice1X3uTX8E4G eciDped9by4ee GYOoDEdsC04wwETsj2P0F DGhgGW0AEByzNcbPkHqfT 93Oyc+LBGgaRxfu8AhKvo ke3qwb8nubHo9 VvFkQBTmjkHyqCeiBGO4n 6FxSn43E05oJHefSAUkBB VrIIIdYGYgzHmkcx2ltJ0 wIi8+PGNvbCB3 dDN8sU5eDYYnHjE2IOzjQ 848KoUueRNiRwcgs5uls7 bnaFm6QfQcHIKkymGueSc cRIZ1i4QoUe50 D71sSLtyNMNfLARcWJGzG KXyuOawnt9kgA4hPl0+PC 6oo6rqvc96vU44cFR+PHR yZLZ8zZxgRXbe AJHzqR4pQOtbPrC4PWLeD qXejS57rPIeAExyUr8qgH eltTiiUB7gBYDsgqgfo69 0LeEam2yhOCMn nLMbLBnwUBQ8F41dc9J0C SUpYRMcMQP9wAN1vU3srX lnbjogbGVmdDsgdmVydGl cUQwmBXndZ919 IHRvcDsnPlBhdGllbnQgT aPxPTu5G6GuXhf9JFJbmR tgNH6pvLGfFVjjRc4sdEl ulIdfSJ7pEDCy kvyjz770PgYxe6erKRBuq TOdXDczUJY3N24oi4N3LO WrCZSkHNM1wMJ9rP8vmCl nbjogbGVmdDsg nlVpyVxhFUcsFKuxO669O HRvcDsnPkJpcnRoIERhdG R6MS15IX31rJJsl8S1oPI 5Z0UbVZPkdxln crlxdGD6YEFzZSYvxB59I t7hmYnjTg9yFIQzTSQ8JS AafNDyS4EuoT0wXrOpHHV iDFEdQ9AveQZc HButM265COurPeQ9EOMeh aQuG7ShMZMhbOwwOmJ7i0 S1Cj9QM0N3FO61SV91iDR zf4N8lZW7Q4Yw GIHekvgojivoaLA9PGBeY RNauA08Iy1rsXqdEc3qJJ JoQXS1IUAhkPWmH1YueI7 yOiAjMDAwMDAw V3AylVXqUTcmD781UThbT lT8LVSnuzRkL3JwXEEqaX omIbJ7t6R6Pu0YJTx4IR8 1TM68hGWnk5G9 iMW7T6FqLXCyrayjxcnma FG5UKEnNPPknB99Qw5wfG auJy4xYDNcPOR7ZJUyhFQ iW9RxmG4lCjZk GCDnOUZeG5DybYPxBYscW 856NWloWfC3VXLyinKhI3 MdEFMmbZnxLlK7i7B0Mh5 SLXVnLB69LOJ5 qEC3WT14EI79T5PbStprb GFibGU+PHRhYmxlIHdpZH RoPScxMDAlJyBzdHlsZT0 lGe9lPMIgUDVi hGgehWIwZiPnl1mbIIDlD CgyFF1meGbdO8CfeHB5TZ Dik0s9Vs19X86qQ8ZxcBL +TXOycSP1zLW1 qN3cZdQnZfC6TYdpJ997J tQyfNTbQofnc0jso0lxnA v9KvO8YNAhexSriWvoJGH 5a7NoYe12Y48z IHdpZHRoPSIxNSUiIHZhb Pixfc7onH6zGz4+PGNvbC Y4wQX8rY4mNwHoNoR5LVi qJ007GtWmiHXz Lqmgk8mwv8ouaPx8WvZxV LDpoaFhoWctCVG4t7YbIk 09P2TppKeoy6LcUkt1bl0 9nNQgt5D9gNZ4 I7QhPZAdysqhbOJthMelO P6oMBJnritpQDIxcB9aHR FlY0y8SuYxCpF5NFcsL3P rnvD1TFDalDFd VJegYSO6D36jl3G8MBJgH HEnMHU2rGU1qZ0eoVnvdt ogbGVmdDsgdmVydGljYWw dXLztM891CRBm sGgsQFAznB7pSVWwaSSlk LraZP1mAWIvzkuySfVHHA 8AJPHhJOsGKUVDDMJ4L4H rPbc4MIOmqFhg OT2xuWCiTClbAy2dqLnls VpkPF6yZLWtpuwcSHHklF 8qLKDwnCPatWpoUF0vXLP ztlgen959BuEm YYP6UAAulGRgK2OjpH8hZ yAhQAEnXOPbJ4QvvLSuIX xsN926LQchBgB6VLMpjgV wL5VpGISqlCvv HdL2z8Q7Vr6vQA8vMZ5nT NOnNW89DA90zGZzy1Y1cN B6Z8BgCXTwytsyhdsugHC 0AZPfTBMhdS07 wEDgNMhcRf6jy6W4m922U NRxSNXotU30Ib3zjZdyCK QzdCPBlH7tzywtt9rouvv gIzAwMDAwMDt0 ICf3HKGkqXosSxAlUBK7K eN3RRZ8gIFooA2yxFimgg rilG7gMbg+NTkgWWVhcnM 9P9ObWvc0TZId qTenYR3niHHfDQfzBw9sv DhgfVogBU1iKRIxqgrkGQ DzaQ7lGSNuvFCehGsiBV3 wLNBtqjwzi212 NgHhIRQ5NMGhwCHtT6Sgy R3kHmGmQEOkJAXbX8JjrT PsXOgqX009UPxwIzJ6YSZ xffJuB7EwLEQi vZxzZpV7t7H0Zg6CWB6yk GI5F2NdHlt9VGGfnGwyUQ 2ruAUxALxoJj3olZgvtGg mCM8nSXDbewus GVYalK5cKLXzlDCyeOrtZ X9eRILnamjrs086MxYcIB U6MGUrlFQhB4GqeC1lScC jJMDaKLDgA8Nz kCJgKLyoF988TCzgUxN9Q MJgabGeK0LgTBQnoHocBy S3g6E9Mg7MvQKeSEKoUS6 2XB69BD47F4Sp PjwvdGFibGU+PHRhYmxlI HdpZHRoPScxMDAlJyBzdH bdFH6zGb1sUVUkOJGvcGo psBFrLcWir4pv PKEyWBtbOU4zgPvoW3Aue QY5VNLud5l5Fr46T77eS6 JvdXA+GLYroEJ5xJI3kH5 iViWcEiO4SKpu E436AfMjiKBtAmakw1wdb 1ujuEx6UhAuKJZbblEiqQ zaOCX4d7ReAr14D72vACz pZHRoPSIyMCUi PCCldShiyp5qdL6oRs5+P TVhfPY9fER1rW2wSvKeLw J4QMokB751GoXlcNMbSws xJ49pK4FxgEA+ XHQoWqt1AAFemWwtXD3oa BLgXMopWp4rDCD2NoCbBu JcJMugP5SeMHOlajgjtcm agHH2LRFuTFGu pV04Sn2viNrfQz2lWVArY ZH1QBYmkBFkA2ObfH3qQd UnUQLfYHLtF9YiuPCyLFj zL271PEtrRnP8 CKAzlyTjA1TrSIUbgKsoN tP0x1Y7Hb5RwNhylDPmWY 3dXaTtIMp2J5IcWic4EHV uuVjxVN2fiSNl QXqeRg9nhZpyhUxnBJ9dB CQoumlfz190SsUnk1qoKK NmqWTiFJawXYB4M00mh3F 3ABTcNWWeBUH6 kNM7fQ7nvUywrrfyhAEeb DsgdmVydGljYWwtYWxpZ2 91LYEmeTxcGyOKAgk7M5N vMzs6XIXhaAfa BT9jiLTsYSmpGr6tsSyil SirAR8fOISxvpiyv239Cg Lvx7lmZUJhfFZhXWugXGH 6N73ku6Y9KUMr REWnJJL8sXG8gG4hpTzjh jogbGVmdDsgdmVydGljYW mvSHqiQ777TAWgjNfhDe6 PQku5K1PxVzi4 BWNczQvwHB8poSDqCAugE w7ceYmocBudIE8xYPFlzb css668HeLxz1jyEFUleOH gZDwoLGT8X57x q2K9NWFbECDkIRS4tIQ7b H7vsWcpuaozkZDppOmhjh SkeOgiNYobXGdsZ183WZS vcDsnPlBheWVy OjwvdGQ+IZ82ue64R0DsK mfoJaf5XLHvODO5iFW3tO 4dAHGeFMteo2I8jDT3W9P kchVcph4lu8zu YXBz (more content not included)... [facility] Coding Summary.on 12-23-2021 Coding Summary. CD:[id number] G h0bWw+PGhlYWQ+IG2WHJP rB96rhZTmcG5JA9qTUN8Y GSTFXSYKXM2EJZ7ahGE4A MwkV5GhdaEc McreyWKaMZ27VUz2QFQ8i JxkFIelhV9etOMjD8d0Tl BoPV12cD86HXtrUUMjRoB 3LjZpbjsgbWFy U3wbQlYkmWChGni+PHRhY mxlIHdpZHRoPScxMDAlJy GprOhiLX2mBt0uGJYiTLK vbGxhcHNlOiBj c9ylONBaKGiwZY8byRciI 5NjlPQ9QEUvk1d2Hr02sL I+MEUmNJJ0xAgiENyid84 8YhFjr3pxOGT3 dAYmZFzlHAL1B50zy1P7U VOlQPLfOCX5dMY4vB2ebW hermwiN6UjxYLqAaY9WXW 1hDJifA8cvUqo uyyqtT8cHqp+G02VOJ2RP SUCEI5JQct7X0RdPrxayD I+RN20UDGuZP04lXFbzBL hn2jgmGc8MkEp WPFxPZF0pKknHLgsd7NnI GLhQ81vhRZnh1R1KWKhbN xwwULkYcJiiKL4lK6lUAk meepui9zthccf Gdion0sqhz94rH42N05gV IxyRDToZLS8OZRfRAXjaQ eyqn2sjP5lGq2+LKyep0c jx3jccOm2FiHk RORvksRauZilPQH3s5QaG c89U5QiaJlki3AvBhg8yf 02eAUpy6U2gZU9PScrPKL uzR7hMGozOjT8 WLZpEwMweQ88vVWvRErvE m2dzNimmGfrBW0yXXOnks kbJDNmuF3aBNOroAVpgUs nBD5qNBQtdpkq j845CzIgAJT2RGVbaEYzF 1BqfG7jZpLbELFlRAXbR4 AkuSNeWVshS019ETrnSpM 9NOQpzqNdI1Hc SREexMacXlJ5m3M6Kd6Ud 5NiyjlmRSN7DQeiMJW1Su JsMeRwOsP8E8DxKoz7JKD nePymFL2nZ4Fu USZfrfmdvvbhhTO9JWBuH XIxgC44tCEjAMnbDa2tk8 Y8u188KAGaRJCsmA78Bg4 udDogMTBwdCBU zY8xtpulj0cumqfyZuEeD WYbYVq8WPa8PCJrmMxbIj HsFVK2LyJ5SJU4oLVowK4 zkQxtaxirjZ4a Oyc+X30eeQ1pHLL6SBW3d oxnMDRtuvYwFF11UJ80D0 RyPjwvdGFibGU+PGRpdiB nfGqqST8nQnBy d7try5EvCWuwM4KeNIDiV ClvTsx4BWVkMJE2nOO8zB 3zNUIfJJzkl2G5vEF7F3V ccrAiqc3jb6sy LGZyHSldI94wbJIqi8P9R ALaiBR6KZEqkPbuLoMquQ 93Oyc+WBKniUgwn5LxCtk kp5miu3pjnUk9 FcMaOWWvvcRuxVdsLTS4z 2WcTu05C69uFFzlOHUpDE IuMQNbIFKarYzaht4pyA5 wIi8+PGNvbCB3 nRH9eS1rLYVgJjU2MApaY 830BrMnrBUdPufyq3hiz5 rkfUs2QjGlXELzcrCgbNq tSHA1g1VkRw31 Z65fWQzsCLNwCOMkXBFaB FCztZulir2hpQ2yNz5+PC 1tx2kbeq13hB63kRF+PHR jXEK8yQvgZUfb BZZnbV8yUUihVjV3ELKjF xQxjI71jTUqPXyuTj6siB ukrOitEV2tQGNqfkkik09 7QiUiv3ybGIRg iJHxPKchKBZ3P40mm7T4V KSjUOKoRDL1aVJ1yN5hdZ lnbjogbGVmdDsgdmVydGl sAIwoKVizX543 IHRvcDsnPlBhdGllbnQgT tHqOVp5Q1UhOgy7VNPpfQ loKG0arVVlTPmiTe5ayXw xfLrfBB0yIRKu siuhv639EpPba8txREVym CFjEMijOUS4U65iy3N8WN CtXQXoQGQ2qSQ3aP9zjCn nbjogbGVmdDsg pgRziQqfGHwqYGcgF617F HRvcDsnPkJpcnRoIERhdG C3GQ94ZF87rEEfz5J5zKT 9K3SnLGZlnxmk gvtarRC0DYBjUEDomC11C s2jlSfbCq0vAFJxPPE7SJ MwqFGcJ6EqlY4hJiKrBUA nKIYzT5HtsYWv UVuaH689VCcbFtJ7DQKet bMjI0QmHIOnhKklFlQ5k0 T6Jr3BU2A0PX27HA99vIB gg7M6bMW6B9Jo YGAvsnxnhrciiLA2ZJPvP JBebM48Xg7jfMwvVe6xFU ZvBQA0EPVlcFTwW9LerP9 yOiAjMDAwMDAw I8XinTFiVZlbB965RJyfK wA9QRTwxpZpT6SgUCDvjY rqFoK0s9O6Ac2EDGg7PW3 1CU72hAQym4W0 gKC6R4QaONWfslzupvxkl PL3HLKnJFEutM55Yz9ehO uoOi2sTNYaZQP9ZTGtrTE dP3AuhY4sYbIf GAWcTHEvJ9XmnBQrNXgxC 276OIltSxM7QJWarpUjL6 DnNTMaaOahGoG3x6G6Ss0 VSYDvVF39KTC5 nPK9YD02CV53C0LrScrie GFibGU+PHRhYmxlIHdpZH RoPScxMDAlJyBzdHlsZT0 mQs9iNVDvJJZi rXtinNKaVgOia6lhZTOaD KklTH0chNykH0WhoPY5IV Fnp0a0Kr96Y65gV6IveFQ +RWIgfOB0dNF7 fF5ySmUbJlF5KZquN752N tBuaHBhRewah2adc3nxfA z3MyU0PXRnpaWqbMbqDNE 3q3CnPm33U66n IHdpZHRoPSIxNSUiIHZhb Bgeyq1gmU5cWg1+PGNvbC C6xLV5hG8yLvVlUsY0RTu iS724TpBkcFUr Roogq5zbn9ywbFi9LtWvQ KJlbjVhzEkbKUA5n3XsZk 82X8LqiTlpu9DqXgr7yd3 7tDUzd0J1pAV4 E3NwJDMuvjgubNGpoUhaP U8vTYPmeskcHBUljK9iYH HoB5f5PaPePnT1IMvqT0E xcbQ1RYXjlTPp QVvkCGA3B93cg4B8QFFmG WLfZVY9sKH3uT9nlGujjw ogbGVmdDsgdmVydGljYWw fLWnzR182HNEf uJxfPPLmrR6mOHSlrNQgm SreRR7fEKVvdviiEmZRDG 6RYDFdRZgUNMOSXRT1I5I aBwz3PBKhaOra PB5gqMEiWXzxXg2gzBcjh UcsMB1pEVOctwteFKRsyY 5fOARerKDwmRskGJ9cYXQ cfulxp709RgEr SOA0UTHodVKmV3MfoZ1vV tOeGFXwVRFgN0JhdJGoSD fnX500SWkbIsY4MYUpzyA iL3HmKDYomQxf AvF8y5M9Ay7uPZ0wSC3vP PAcAK18QO42vYOix4H0zO V5Y6MiKMGulacvdpfpgCW 4XMRpCBFllE01 uFRxQTamWn2bv0E1j999I BRlQLFsgJ30Xy2evPqfEL PbcMCArR2vgbdsz9cthmz gIzAwMDAwMDt0 SJc0URIonJpfZxVeNGV7H eB0RAQ4dCGthC0xyPhuoq vagP0uUwm+NTkgWWVhcnM 0V7HwBkq4XIVf vUlfDZ2olFVjFTfeBx5xn PpokDmfSR5jEEPleubrRU NqlX2lRYNxrWOqwAmrTO8 pIORujqojn986 DjZiHTG7XYMpkJJfS4Dyk P4uJtJwMYBzUSHpG2FcjE XpZVxtV073LGrfGhV7XXF ttcJyA3BcAEFs qMktGcX4c3L6Cp9NZH9cq EE5N4UcBva1VBHrzJnpQC 8jeNKoJYarXb4ebFptlQm qFL1vFJKwbjcx MHAxbI3uKEFohCJqtDigO B7iFTCqvrqkr720UwAwBW N4WJPsvDGxR6TxyM4tNbA rWXRkBETbZ6Xe iTQvYAruS734ZIxdIqQ1S JKiunImB5WrRZJxiWwfMd N5o8I4Hc8KaPCgJIUcVG7 4TA04MK34D2Xz PjwvdGFibGU+PHRhYmxlI HdpZHRoPScxMDAlJyBzdH snTA4tUq6hGBEeAYRnqHb yiFYrSeBhd3ju GRPtRFgaIN2byYvfR7Yws NQ3BJDpo8u6Dz32Q12gG0 JvdXA+KAWxnAF5bJJ7tM9 dXeObJvR8MCbj E077DfAqyZYiQxhol8phz 2fqtIn7GeBgJFSgmsFshX jnGNQ7v2PuIt29E94vVYl pZHRoPSIyMCUi JNPjzLdehf4yyY0wNw0+P FNfkVE2xMV2sA1gIyOvZq E8ASduY604PhNwySYaRsw zJ94yV6QwpCT+ RIDwPuj0PUZwsYojRU2cm NTrYHrrXz9bCMC0UyUnIb OqPFaiM5EhXBDzrzooncp pnLB9FSDnZFSy nY25Uk6rjCgdBs5kVGWuD WQ5DNAzzCMgN0RleH1kUc FtZPVzBKWvA9OpbTImUZi qO925OTrzBlT7 SWVxgqCdL1DtETKebGcsI aV6x4R5Ns4ZyUekqXKyWH 1pYoUoTSh0H8QaJqy8NCH kxJagEG1aoFLv JVldCu1fhFojbSujEV5dF DJqpsltm434FyWyo9riDS WtlJQfVDekMUW5Z28bb3P 5FFRdAQJpLWI9 dNQ2eF7crRttvvcesTRof DsgdmVydGljYWwtYWxpZ2 37DWHkrLqtFjPVNpj7M2N fOfw8QFFvbFdc JL6nhIYcMDvfZa7zwHvmn JznLI8cHCAycbkcr508Yp Knu1ehYYGpzUWzZHkxDLB 0C03vn5U3YJVl TXGoFTX9kWF3kU8syEmkw jogbGVmdDsgdmVydGljYW haIHewL597VYQsyUraLb9 FAfj2S8IdYts5 KIRnpUhaXO7vnEPsJIlsG c9bbTyitZhaDH4kENLtlm wpj460JdRew8djREYvlVJ rLLrxYFF9P97c d0R3KHPaKZHiAAH9vGA8p X2zjRqxjktddKHidOuvxc CdnVweFPafHWfzE799MPW vcDsnPlBheWVy OjwvdGQ+YE20tj67G3HdW myqFvu0QPZsNDQ6sIC5fZ 9aEBWfKRxej3F6sIN4U1F ttiKceh3dg2de YXBz (more content not included)... [facility] XR Spine Cervical 2 or 3 Vie wson 12-22-2021 XR Spine Cervical 2 or 3 Views [...] Cameron Olivares M.D. Transcribed by: CAITY Technologist: MARY BETH [facility] Consent for Treatmenton 12-04 Consent for Treatment [id number]# 1.00CD:127 [facility] Consent for Treatment [id number]#1 .00CD:127 [facility] Consultation Noteon 12-21-19 Consultation Note Patient: ELISA LEUNG Age: 61 years Sex: Female : 1960 Associated Diagnoses: None Author: Adri GILL Sophy Subjective Chief complaint 12/20/2021 12:28 EDT spine [...] has, # 60 tab(s), Refills(s) 0, Pharmacy: [facility]/pharmacy #[id number], 166.8, cm, 10/11/21 14:46:00 EST, Height/Length Dosing, 84.8, kg, ... 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 / Confirmed Hypertension / SNOMED CT 1502616248 / Confirmed Anxiety / SNOMED CT 62148928 / Confirmed Lumbar disc disease / SNOMED CT 7074984513 / Confirmed Lumbar radiculopathy / SNOMED CT 790117149 / Confirmed Chronic gastritis / SNOMED CT 59794858 / Confirmed Migraines / SNOMED CT 28838580 / Confirmed Insomnia / SNOMED CT 026716957 / Confirmed Colon polyp / SNOMED CT 798758686 / Confirmed Chronic leg pain / SNOMED CT 147504179 / Confirmed Laxative abuse / SNOMED CT 777414164 / Confirmed Chronic cluster headache / SNOMED CT 552650451 / Confirmed Vitamin D deficiency / SNOMED CT 98488438 / Confirmed Hyperlipemia / SNOMED CT 27808016 / Confirmed Osteoporosis / SNOMED CT 550508793 / Confirmed 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 [facility] Comment on above: Result Comment: Elec tronically Signed By: Sophy Rush PA-C\.br\Date and Time Signed: 12/20/21 12:48 EDT\.br\Electronically Co-Signed By: Derick Meza MD\.br\Date and Time Co-Signed: 12/27/21 07:59 EDT Office/Clinic Note-Physician on 12-20-2021 Office/Clinic Note-Physician [id number]# 1.00CD:127 [facility] Orders Officeon 12-20-2021 Orders Office [id number]# 1.00CD:127 [facility] Physician Orderon 12-20-2021 Physician Order [id number]#1 .00CD:127 [facility] Coding Summary.on 11-09-2021 Coding Summary. CD:[id number]:[id number] G h0bWw+PGhlYWQ+ZF0XCBX kR03mvLUaxX9UL3qXPD5I DNTEOKPSNC3QBG9trGK7X NmlC0PhksOq WyeauODdIS99AEi9XHY7w EjeFNzesQ5gxPMjZ5c5Uo PqJP99eR05PFqoXOXiMeN 3LjZpbjsgbWFy L8ziWnMhdMRbDyn+PHRhY mxlIHdpZHRoPScxMDAlJy MinPmoEN7iAq8hSPHxZCG vbGxhcHNlOiBj x0idYJRxGIrtRK2qbXxoI 2HwdHN9AZKzd9g3Sq90pM I+JVSiEOE8qWqkEHmyq88 5VqXwu7feDNL4 bDEtSGxvXWE6E15cr2B1G KJpRHTgEEI9aMI6bN0waA phiymqB5ZmeIAaJjY3XBU 5pCSrqQ4flImr oonayN5rFgg+B64LLO0UZ YQDZZ6XLtb1U0IuCvogcS I+EH78IXGdOG26bVSmpUX sg4vvhDa3JzPf ZHZcLLT8bHxpBPffe0AaK NKoY53gsPVgg5O8GURrqQ xjuTUcIbFopSJ9gV6xBMv lebxza3emgzpj Jdibi4uxur83mD30O26nI AywWANfQXJ4KWOtIRXluD uhhx8fuB3rHh1+YIfsu6j jx1wvrLc2UpAq LHKdusXqwWbwSBA9l7GxH m22H2PlpYmrx5CqXmk7yd 83aRXyv6X9iKQ3OBmxKRU baN5fGPviLhJ1 VWBzGrQakQ43gPVhMCwnF m1loTapuUbvVP1zADUknz gxUJFnfI3cJLBjmMVmkLe tKU9vCOIauqql c676IfMaAVY3MNJfhPDjU 9MnbI9xBcUyTQVgZWFjU6 XzaMMyJAerY304AKnyEkW 7UFGncwKvO8Mn VPXciCsuGiN3i3N9Kt6Ov 3FrpplnWKX5HZflMJI1Qb U1MpEgZuL4W6XyJfm9HYW cpHcuGB4nJ9Re CARermmuvryiwHH8LDBrV APixV60iQQnJRdqWu2uo2 Q6a827JJQcJTSurV68Vu2 udDogMTBwdCBU gZ7scntqm5anwfzeGhXoZ XIpUYs3IKb4MNMtoKvrZq BbTPS4BzS2BTT6yQDjzF1 lkIprxrcjeD0k Oyc+U60qwS7vSBJ7OZM0l mqgRPBzizGpCU36LN27P8 RyPjwvdGFibGU+PGRpdiB xkCaoZM5jOlQi z0qad8XlYGazY0UlRIWwP LtmKcb9RGFnJVR6bNE1nM 4dCELaIHeze6P4wON0C2K fmpZiul1yv5mt XOVkCSesA72coYXey1F4N RHxpPP8ZVHgzFwlLmCzpW 93Oyc+FRMuzPbov5FtHwa rm3ljf7lmbYw0 QyPaWTMstlNtuBjfMAN4v 1ZzJh42E60pDMweMFRrDQ GdYTKbBIZqtKmycv9ydF9 wIi8+PGNvbCB3 mLT6yN6rYSQfLeJ8NExsE 267ViBreOIeTfvyc6uxo9 sluKw2CrKqMZRztpCujMd cKYD6x4LvEq30 F00mUBzrZCMvHGPwZDXsT OVemQdnqa8dcR2qHl8+PC 4xp9wrvg66uV78mDQ+PHR wUSC6bWnaWTix JEFjzF4cZXnoTdQ7EGGmN yLbwI49uXAsJAabAk4qiP rvzNkhVJ3qRFFptgpey08 0HjLcp9npMHAi vSVnBTvoEJZ0V24zh6Z5B VMpWKIkSIH0gNQ6tZ9rxP lnbjogbGVmdDsgdmVydGl wDLkwJNjuE600 IHRvcDsnPlBhdGllbnQgT eGbVGk0R9SuGnr1ARLmwW fhGS9itDKwIPoxBt6whSj wjFnxHX8cEYAx jjgmt168MmNuj8nuUJOtd LFzHCbxDDR4V99rh7I0GW VfBMLaWAH0qIY6rS9dsSm nbjogbGVmdDsg hvEgdIlxJZefYRudP073O HRvcDsnPkJpcnRoIERhdG R3ER51AI42nBHkf7I0rAW 0W7CfSRDerzab netmaZR4IJYgAELcnM34B i2lrGhlOr3wUUVcEPV9ER OseLAbN5RqvV5fQxOqLFA gMICvK2MsqXPa ESwaV362YMxyBbQ7KKJif dVlV0DoXUBhrLtlLxX2q8 T1Kt9DS3W5IP03ZX02pPI fv2C6qAJ1N2Ps DNGcevhcuooiuEN3JODuG SKczI83Zc9tqRsmKo9kGX KaZCO0CMImvLUdW1FbjQ3 yOiAjMDAwMDAw X2PsdPErGMthC664SBwxM tV6TFCbaxRoG0HzTNTjvQ ufRiJ5i6G1Fe5SMPz2SZ7 2GA71lMGbi1O0 gER4C7FyLQOsvpedzyfnb AA6XCClOAOpyP49Fh9npR wcIp2sIFRaYIX9FRAvlKC lX9UxmG8zWfYk DCUoQZPaQ2KcyPCmUPeuO 769YRjqOoU2MXHmzrQeQ3 ZlDJIpwLriLdE8n3I8Xz8 LJQTrAM78PEX1 mZP1RX91PP31E0KqQxzkd GFibGU+PHRhYmxlIHdpZH RoPScxMDAlJyBzdHlsZT0 dHi8jVPZbPWYv aUjlkFTvPuRhk4nrHZQhK MlvBO4vsSpeG2ZynMV6DI Vek4t9Xi44O68dZ6PyoLO +MHQgcAH8iQT1 dL7lObShUkC5KVmmR700X tMefIVbGrkru3fol7glmZ x0IpY2YSEjxhOjoXjhNLF 1q7YnRu45R95g IHdpZHRoPSIxNSUiIHZhb Wbfmc0waY9dYs0+PGNvbC B1zHO9jP3bNpKsNiN8OIg dL491SoFbaDBx Leehc2fdi9nxoHp2YrCrU CIvuxRjtFpxINS1h9XpNt 11Y9OcpNwft9YnBis9fi4 1qFHbi2U7fVC9 Q5QvSGHekhhggSKknIveB G1tHZKesdpiMEPwkE5bKM ChP4h9CbQqKpI2XAuyK2Q nxxY7EXGvdDTb NAxcJUM0U16rw2Z4XCWmC ZYtKHA1rOH2fU5xvHvwaf ogbGVmdDsgdmVydGljYWw kPEluC951KSFd bQdkFIIxcW4eAQJgtDZwu FyuEE7rZPGxtokuOcMQXM 1ORHInHRdFXAGFAIB9F7O aUgw5LMIuaUcj JL0hbASpJOglLm7gvBlag OyqLI1nGWTsjqnrWDYzxZ 9wIWFpqMQgvGitGM0zYUE yimabq386LfLg JUV1GWZnnULpI1YsoP6jE lFhELBvALYyL3SleGFpMU zmW045PFcgWzO7UAHkydK sF7NdGHAizWfc XzY2l9S2Rc7bSY9rTZ4cN TAlFP38FF27lJJxy0L9hZ W4E3NeJUYxqikmnxmkiGI 4MFEjIJGapT41 lSLbCWzdHw9ve3X7c211G PEaAEUxdT16Yk1hqZhrTC KesYTSoB9fixtdr5mxohc gIzAwMDAwMDt0 VDz1CGAeoAklHyCdFOP1W kW6TFR7uBLfgU7xxWlalt rgtC3hLza+NTkgWWVhcnM 0Z9QkPyv0JCOq gBsjXQ9ajQIfFWiwCa7al AhmgKgzMP9pIOVqeyjoYT YwqR2gCVTbnPOaaUvrEM3 oWFKppufqi417 WmMoCVF6SSTquPYkH1Sqh C7fWaHhTTPyNROyJ2FsrP StXLvmW213CYtfOqU8DCT dmsJqF6EgHRHl uWifJmB4b4G9Zd1YXF8sl OG8P5EmSed8OJCkrXdiRY 4jeUQhDYhtRn2iuEmthQv uUY7wUMNsrugl NKPaoX0nFVEirTDcnAeqX C0lCGTyyevkt801XhLvNE L7SPEvcEXoI1YpuL7oOlK iICFxRVKeM0Cb iRCpBNckN296RAikFuA1R DHhrxDlN1MxDFZbxFszHl Q3x9S3Tf5VaZAhBPEdOJ1 2KS80OJ42I0Aa PjwvdGFibGU+PHRhYmxlI HdpZHRoPScxMDAlJyBzdH rgTL9gPn4iZLAbCUGbeUu vlFStWuViy4yu VTXiSUyvOI9lbDvsN3Zyy PY7FMRen0r8Lx30W26tQ4 JvdXA+TZIcjHW1oFY8jO3 qYeGwMeM5UQpg V832JvJciQXeTcfdb8jai 3ppnIi4TaOhNPNqeiWwiR efCYI4w6TdMd82I87oZTn pZHRoPSIyMCUi EHPpxCqkbp4mgK8kLq7+P ERqjHW9kXH4bL4cAoYvGz E7JIirJ446CgFpvEOaTwr hG07rR9CknPR+ BELjRqt1UNNtaAilIT0ry VUmCXdxJr8lYRZ1LmQwIb RuZQkzI1HvRVQsmrpdwkq poGX2MLEzWIKf rJ52Pc6fhXbbSy3rHWZwP BU4YSKzeMMvI9WwwT3fFd CbXXNoVIIbW2FqdMLwEYe kJ241WXuxWvQ8 AOBcgwMnR5AbLVHdhOroV qI5z6C6Qh7GcRggiNJgCV 5hKmHbAYo6C2KdJej4KYM qyBdgIB7qeFNp YDxjTk9kcUmfgJouXE3rF SWdzizvn368SjYyp1kdYD IxdCDuYLwwDDL6L54td9K 0JLKwKEVcPVV6 iOU4uR4ylFtugoxigPNbf DsgdmVydGljYWwtYWxpZ2 12AQLrhMghMeHBXrc3O8R kUnz0LZXhmJer EF1lyJNfARptKh9uiHyoc FwxLR2nBUEuqaheg652Vy Zrf8lhJFUpeZNyMXnyZHG 3P67dy0X1JRVr ZTWvFHD1oFO2oL5vdHivk jogbGVmdDsgdmVydGljYW nqQNsiU752PAGjgLcwKp5 GSlf4T2CiLfe4 FZKzwHdjBF1tuMXwHRumS a2atNnfmYhzYM7bNESxxh omr064PfHaa5luRBNnbVF bZSnqDRT1Y85w p2C5IKDmVWInEQU5aZO7f Z6cuHqmclqrmCZpyMwjnp QahWrjLNziXMxgS284VJQ vcDsnPlBheWVy OjwvdGQ+WD48pb79T6OaH xxyEfg8MCUsOPL7wCF8vF 0nUFTcODmjt3V7yYY0G5K yohUuum4vu0of YXBz (more content not included)... [facility] Coding Summary. CD:[id number]:[id number] G h0bWw+PGhlYWQ+DR2KSKZ gH37qmLBppD8FI0tEVB1D BNWAUNGNWR3OXO9uaZA3J VspU2UiyzEf EzfmtIUfQO92QNm4AMO0h MdhSLndzF3xfCQjN6t4Wb NxEJ40nN52EGphAGDeTqH 3LjZpbjsgbWFy H2gkWyLihGIjYzf+PHRhY mxlIHdpZHRoPScxMDAlJy KcwLpxXA2sXd6fLJVjHCL vbGxhcHNlOiBj g6ahJOLbXPczVU9jhLlxO 6MzcJD8RHYtt7f1Wy63bL I+EGGgQIY4kRpbVXhzz57 6SkGwy7twKYO7 cRPpQImfNYJ1X03vz8P7F QMsQDKxSWW2vFH7oT2ssH cfwpgnC9UntRDnPbW4LRO 6uCAteR8idKmh dspneO8vAkb+O55MCZ8OZ PJQCG7AEeg7O8KtPthzfQ I+UW87ZDMdIP35cBJbpFH ue0svhKf9YgRr WZIeACN0sNsxLMuja3BuP YYxS77liOZxl3P9ZSJuiC qhfWWaQaIfyDV9qJ6qXZq apqxzc4lyahxb Efvmv8detr96gN80C51gM YphMMWyZZV9CDOiCMGfsL pdcf5huA6sZt8+DBfdn1c xm6rvdPa7XuAy UYUozcPseWneHQU6g6LwE n47D1MqlDgzp4BkJcp0nu 95aNYte4T7uQF3BAkqEPO ogQ4jJEqePlA0 BTYdAoIxwP27lPQkTEkkA v0imWyucUmtNM5pUTMlsw hnWJMlpF4iLWNhvHAjlJj eVF5gAHOyodmx d964HjBmWNV0AFWncTYgJ 1ZskJ8sPcOuDDPrEDIzT0 EwhQPqJLhqP215UWxwCiW 1YYGxtnEnD1Hc ZPVbbHwaSaP7p2A7Qm7Qa 9EzkaspHEW1ROgnWFK8Np X9EgMtZuF8T0DfSce4LPV jhQdaMJ4rW5Dn PRPpwobjqxgkyMT2FFBnE GGroY71kBLkNWdmUe2wl2 Q5p539LJXjDSDicN93Up0 udDogMTBwdCBU uE7ncggxa5adkmeeZkHiO SKlAPc9JAy8ASVaaEvsCs WhAGB9GvX5RJP8mXFyoD5 gpYhyzxuloD9g Oyc+A59fbP6bSSN6FXQ9t byvNETvcwEbQO33HM90W5 RyPjwvdGFibGU+PGRpdiB vsEacMX8eMdJi h9euk6FiDCyaN0YuMFFxU UnpGre0LCWxTCG3zOO1eF 7sBCCpZVylm3M6vQT6D9L ldhTbxm5vb3sb GKZsKTbaG90tuZAfm1J8D LFqyOK6NVIozOrkMtIymJ 93Oyc+FVJasWhhm1GdVff vi2kkv2pcfVq6 NgGuITPlqtKmwTuxLKU9d 8FrBz56C70mRCrwMAWrQA DkAWYyDVCxlQpxun0uuR1 wIi8+PGNvbCB3 dCN7pV5uGPLsFuT8HSsgB 342KeXyoTNdXvrek4sao1 tdcWl5GzSeJLSubyAzsYc iXGE4f0VoWq34 A84rNQqeYGThMSFxNUNnI DWhyGqcci0gqJ9qBe9+PC 2fn4dtjy49uB13pQB+PHR zVMM0rNswDCcv YESyhU7fJNcaCcV5GBNjT xQxvJ30xYGlGXivLq2hjR iqxSydIY2iWCPghtepd03 9SiTjh2opFQGe fRAdDZiuEUN2T55mt4D6D WRtIVRiYDM3fSW0oN7njW lnbjogbGVmdDsgdmVydGl kVSxzBBadX204 IHRvcDsnPlBhdGllbnQgT cAlYRi9S2IaUbn9SRHhaB txNB3xcAHcFZsySx9vrFz ezOuqTX9oOPFw oapgc289RqYcv7tfFUYye KTaWSjiSFC9G73py7Y4JC XmWJJsILM9eSN9rC5kqPe nbjogbGVmdDsg wnWxzFozAFogCQsiM070L HRvcDsnPkJpcnRoIERhdG L3CQ20PX20dIEzf1S3iDR 2U3IyRDIjbjbi cugxaMK8OSNlUNTvuC37C g7nuHdfQp9sUTYwPQG0ZM BqyGTlN9HopH4eMtInUFC fZVFtU9JoePJd IRawG366RJfpTfG1YXMvq fAaT3FiSQHrnGruDpB6t1 M9We0FT8O5JL81CI94yIE ew7K3dGO0B1Fu CGYymxtnqawedKX6CWFjT QAxxO79Vc5rnKqgCp7tHP KwXIM7NXZqsFXtB4SvbL5 yOiAjMDAwMDAw A9VyuFVfZYtaR723UFpqH cE0JOIlqoFeT2PtAXLofL moWlJ1w1Y9Lm9HMIa2CQ9 9HJ06fXYdf4S4 tAA2X2IcUHHkjorfqrkly DG0LYTcAPTjqC47Yy2syW ypNn4hMPHsBDV1WFTpdTB cC1JfqK0pZxJx LHUsCZToQ9CcvVLvPFhdM 616ZApiCwQ1VQDcbcGwP6 DpLKOruCfkOhN4i1P7Dy4 CESTiDB43QYS6 uPB4YF50UD61F9JjNsmte GFibGU+PHRhYmxlIHdpZH RoPScxMDAlJyBzdHlsZT0 wFe9iLEWuJFAn cNkvrWEhKnNim7voMHZeO PvmEF3zzTvyI7ZtzGD2AQ Ojm3e3Ej34F06zC9LzhPH +WLIqnUG5sLG1 jF3fMkXjPjZ3YTqvQ313W hSybVQaJajmw8muc7cctH w1GwV7XJKhcnKvgOraWII 0r0NaLc38R20h IHdpZHRoPSIxNSUiIHZhb Miryo2wnK7dVm8+PGNvbC X5jWB1cJ9nJrNhNmE1ALr aY574ZeJxzYFe Kzynx8ysv3dpsSm1YtQkN VEeneRltSpyTWF3k7BzFp 67M6QaaBgoe9ReElz3xp8 5rDRia4J6qMQ4 T4LfNTVrzbxdbKQreXwxN B7pXJDbmgleTWUjuQ0kCC BxX0c5NrReHcA4PYikD1E hcjI7XESpnZZt QJryTEG3D21gf3Y6KUWbI VDtJOI0oIC2fB9itOlqbm ogbGVmdDsgdmVydGljYWw xFQreA671PUNq kEtkXULcnB3uCAUyfQYmg IkiQI0fQNMghcxvJwAIPG 0ODGTcRNvYKKTBEYT9A1L oJrz4LUUovWcj AP7thWYpKSsiYe2dzOfsa GseTQ8hGFXnccppJFIkoG 3yJHVkpDGbzBksEU4sKMI pedvcb186UaNs YYP9SAPxuMIlJ2KhwM3vV mBiLTXbSCJgK2VknRKyOG aqO477QDalAqW0VKBgtnT mF2UiWAVnyJnf JyH9x5M1Ab0cBG6oWT6mY AJzMG71HB94lGHid2S0fT O9Q8IyRICrgmdsyevsbCW 7IAVdXELyqF59 nYRxQKxgHg7of7A0u237O UIlILBoaC61Ag1gkBcwJF KrsUYXwE0dibscs4phuuf gIzAwMDAwMDt0 DUo4OMQqgZnhIhFxCQB7B zM3IPO2yPMxvT0bdNlrub qzrV2iMsx+NTkgWWVhcnM 8W5HnPyx1TOMx uFkpYT6xfNCpBVriNo3rp WyoaDdpBU9yABKiintpSP MhkD3cRAWxbUIfhYsqFC6 uMUPhaarjc164 UrQhNPP4ZLObyURiR7Ufs T6cKbQsRNUeQUTmJ7NqnA XfWBxwH092IZugHbX6ZQJ ymrBqF5NmFBWr zFdjOmI4s3C3Dg4CHP3kb WG3R4XlCby8ZJEjpDkyKM 3wmCTnAMmxPa8baZpcyNr aVV8pSAUcfehn NXJjyH5uEDAihKIdcUivP S0oDBEtzrqnm289XwKsSI J1SKAdcYGlM2SuuV5mMoI kZRZiVSVnD6Tb uMSiFNayI519ITylCzR3G VXyubRgN4KiOESwoYkfMy V5w8I8Ez5DcEFtUNYzFE9 5AL68PX76W6Jq PjwvdGFibGU+PHRhYmxlI HdpZHRoPScxMDAlJyBzdH ynHH8gCu7uQSMiAUDpjNm xkSBqUeZgu2ox XSAkKOruUH8pnMuiJ8Sdd JE1JLEfo9n2Bg77X58eX9 JvdXA+EYYxtPY3nRG0oA8 xIuFlUmF8TRjo R755YvUwvPJfBdofq9odl 9isaTu4KvSrILEomvQaoU jdZXT6j4OuCb68R41aMQz pZHRoPSIyMCUi ZUGtmDcwni1hyT8hZf5+P CSbzDI1tTZ1nW2sKtUsEw E0LRqcO233NqMrsJUmSpv cI08rZ5UfnYV+ YZZuLqw0ZQImiYrfVD3ju YAlTDmgTj4jWQX5AlYnCt HlJLouZ9WsSSDeviyzxtw woOT0IQQzQOPa gX83Fe0xaZagYn9pIONaE HI2DNSvpMYtZ2SfzS6lLb YfBNReSBZjN6QkwLMeQPb uH149MSwuRpJ7 VVGabvEiE4YuCDZqtXuwJ pG4y7A8Yi0KbZiytEOtVE 8mGxRaBNu0S5FkZmn0EDM utQzhNH0sfMZu WUbuOl0qqZtcmSppMJ4oF KIfbhjpv178XhEhe7maVN RgmPVfESihSNH8M22gm0W 2IRXeLVSzYJA2 gVJ4oQ5frZvfyxhssJPih DsgdmVydGljYWwtYWxpZ2 57ZOFyvMclLrCOZgc3I3I eZwb2YEYhzFej MZ1ijHRwWLiwFg1vnJhkk XzlJC1fIHPisdscu801Fj Nom8cyLCHghVWvXJjjPFL 6A05qr3L4PCCv RGKsRLL5tIC9bT7psMbmq jogbGVmdDsgdmVydGljYW zgUVbcV370QXMpuJhsTf1 KJgk8W0GtPpv1 GPXyqHjnZV2gmAJkZZweV q7jlGvnqZygRM0zAYMxco hsc375AoJbs0qdUIVsxMB aZTfcECT9C58i n3M4QEKhUCPyWEB5lAV2z M4vcVvmrzwngHAquHsqel MqiVcjFUgjLCihE050YMG vcDsnPlBheWVy OjwvdGQ+EU26yj49K8KeS ifbSin4NMRnPSN9oGE8cS 9fBPCoLHctm9G5mND2F7G ugzBjor7iu9fl YXBz (more content not included)... [facility] Coding Summary.on 11-01-2021 Coding Summary. CD:[id number]:[id number] G h0bWw+PGhlYWQ+YH0RMZU xE53eeNRxwS3VN8pOCA4C NQSOFFNGAD0DSV8owYO5I PtbY7BzfoUw KxjucXOcTT91LJs5FHV9g LfjVUdtfS2thYNgH4c8Xw HoXP82kP30JRglAGOjEgF 3LjZpbjsgbWFy C4zeOcAcfAJrUez+PHRhY mxlIHdpZHRoPScxMDAlJy TqjFkwDF9rMl6kNUBfOLK vbGxhcHNlOiBj j0sjFNToKCcyUJ3xpHjaU 0XmoNE5JCYbr0y3Lv04nE I+AFVwOCW1yCveTNsji52 2NwBmj1vbTQK9 nCYfUVoxIVS2R08gw7L8H WVvZMLhABJ4gPO5wO9gbB hluzfdO7MygWAwYwZ8JEC 5rQJjmV8phHax ekiphX6hKvo+Q78VXG2PK VVJGE6FCys1C5GqYvvftG I+LY47FKHtTH20eULugNL jx1ffvYe5VzGe QWNjAIC8zPcoWKeso2UsM QRmB43xzMQqf2M3NBUhaE tkgPIbMnMupCK5bF2zHUi jktlwe1svjzcd Pybks5ukpc32rL79L22nZ EjtPQRiVEE9ZCLqDEKrmZ dped4hvC3aIi3+BUtrq3u ou3oguBd4LiLz MVJguoOuvJphDSO7m1WcP h87Y7VifYpaq3TfYgp8nc 06pRMzs6M6kRQ9XKqkIXO uqE5gSXgkRgX2 OKAxRhXbfP49uGXoDRdzR p9vaMwopUhoKL6oZEQcgk ruBBRvjO1rGRJfxNYeqRy kTN7pAZCrdxhp b780OfAoIJI7LKSgrKAxU 9DeuY0gNdSjLWVgQJLvA5 SpaPRaCRggH104KWrjZgM 5ZFEzbeMwB2Vd NIEcrFizJjH1n6U1Tx8Fu 0QzjdyhQLO8YVtoLYPiHr E9QoAzXqS1N1InRwk6DSY ysXlgLO0fG5Hj CPSkumhnsqpjnFZ6KDTaU RFcnP07cTMvRVgzGg0sy1 B0u572YYGhXQPotO10Vq3 udDogMTBwdCBU cQ5rwnrqt1aybyxwHgKqA DPpPPn7MYb8TVXbjWbbTe UbHHY4TwI3QQW3sKLytH5 pyIouptltuJ2f Oyc+X75tqZ7bVCJ7AND2e zabUASpyrMdYW14WM69C4 RyPjwvdGFibGU+PGRpdiB cxOlkYL3mXkGv p6huk5LbACuyF5QyOVUlP EapZgt4VEBbPZI7rGU8gL 7zCLDkNWmcm7X6jIH5M2N uodZyjo6iy0zg YCRaMXzpZ35xlBNts1B2U NBewDU8GIBqmVkuTtYeaC 93Oyc+TPXmmJohv4IkRgq zr3jin1njdXh5 QuGfUECkyyZijEkxJUR8k 6MzSp49B63qTPzqWNCpTF IrGWMvXUIzvLcftu3usI1 wIi8+PGNvbCB3 rEF8xE9aFOYcSlT0HRokL 919DrEvtPRuSsmmj6rds0 rujGr2AnHfCSUwvaTnfTj gYKH1b0KkCb49 F60mGPdvEELaZNJeMEYjB WUuaUsare1ksM1wPe3+PC 9li8zrlw91dT41sGJ+PHR zWEA6eIsrRHhu WLOswZ5zNImkNbV6BQTzU uGavP33cDSjOJobGe8dtN lftYhiCJ0sPAMlglkyw56 4HlFps3vtHFHr rIUnTUviLHA6Q42xk7S7H JCxTZNcCKM0jVA4uP8vlM lnbjogbGVmdDsgdmVydGl iKJpvPQxwE392 IHRvcDsnPlBhdGllbnQgT vOdVKh1V0IzVyj7VINliS cdDJ2rjGIrNYxaNg6bjBf tnUlzVH6nUDNn pmpgo604ZkKpr1jlDFKjm OTwGSdwICJ0J63xg9H1VG QjNKNaYAI3hCT5dQ6mwXj nbjogbGVmdDsg aiAahKnvETwgBEejV242Q HRvcDsnPkJpcnRoIERhdG I3EQ15YT45xSVkx2P8rNE 4U5BgAAOrdyny zbjdaUD1YGPmTUVndD73D c7nuPztTq3eHRKvAIZ7FZ ZvdIFfO4NrcR1yIkEjBPY sFIYyI0BreLFg NOqsV059XZzkRdG0HIAkl gMoZ7TfBMLxnMlvPhY8n0 K0Hk3RW3R3ZP64EG69uWD wk8Q9mSO6W6Ei YCPothxxjcoyyLI3WKQyV HPgtF29Tp3ikZayEb7tWN SsWGT4TJDebHDoW5LnnW7 yOiAjMDAwMDAw Q5JwwKAgIJwrC548MGhnN vQ8RJTainAcD6XmIPJeiM crMrT0u0N0Hq8KQYe7LM5 8YX20hNGnw3P5 aXI9O3PiXHNorlzjebwpb GE8POZoPBIazC26Ag1pmS teDo5tKEYpIEJ0SWKlaIP mX1UfyZ3lWnCm OCNeGAJeY4ErpLYzTCkaE 570HGunPxB2JKEjywFrG9 OrMBRcgTflWyQ9g1A0Rx2 NGVGeOP96ALI1 xHT2OD16EK98B7PkZryxx GFibGU+PHRhYmxlIHdpZH RoPScxMDAlJyBzdHlsZT0 bXm6xNCXcEMVa sOokwXNnShDfk4cbYCXcG VqoZY3lsTwoA6IrjVF6OB Gjv5d3Ya44P51iA8ReoTU +ZIIdnKA9qPL5 bQ3lGlLeMyF8KCdlJ461Q pFuqOBoEiszo3hqt2eehK k6UdN7EIRnhvIljJpuVSV 9e7LtVo12M79v IHdpZHRoPSIxNSUiIHZhb Naxvm6slI9uXr6+PGNvbC B7gLL3jN0oYwFrPlE8MFb tR096VbQacDIn Vwuki2kts2ilmKh3VzWmA MSjvpVjuQpgXQC6b8JwIq 28G0NdkGqyq8ShRkl0jt0 4yDQiy5J9nFF4 Q8XnCSLjjogztGPmmBeeL Q5qYQQqurlkRRAdfW0kWT EuO0k1DmMwQaU3BFpfR5O rhbA8KMXnrKOo PDxgNQE9D89ri4A7JEMwM ZDoYCE7dTS8lS1sdYrplg ogbGVmdDsgdmVydGljYWw tNOfaH439DVNg aHjpFUProW5sNFWtiTLgi KpbEN2bBYPztkpyCoWIAN 0VQZPxBHnBEIHQZFW4U7W lHhq8RCWreUzj LO8pjORdAWbpYn8eeNrko KolIG0vGOGdbodbPSTgsQ 9eXUGexFAvcQrpHJ3yMKM xvmggj429YcEc XJJ1TICxiPDcU2CarK4kU zDvSIFlSZKnY7ElwZRfJN mvH444RQvuOxL7DNPcejD oB1XeHAAncHuc NaN1b4S7An5kTW6eDO1lC RXsAX89QM29nNXag9Y6zD N5D6PzYJFilgzrroabeMT 3MCZfTFNcgE80 rAMeCCtlAi7yu5Q5h084N NXcKEMofV59Tv9baStaGN PziGZJhF4ctswbm0gswre gIzAwMDAwMDt0 COm4KYTidOwmTbOaKUE4L iV0PNQ0xUSxsE9ntIameg qvpV8cJvb+NTkgWWVhcnM 1H0ArJrz6SRJe yCdcZI6zfGYdKJbbXx1tw XqaaHghYL6dONMcdbrcNI XcpQ0eZZGwuIBcuMyhQB1 iKUFkjdgti646 EoBjBMB7QDXntHPgI2Kgs R9nEcFyFKXiGGAjK6UtqF ZfBLqpV276EHglSfH8QPE clqJvD6VzQSPg oMgdJtP2j5P8Zv9KHI8of HA2D0EuNgz2ERVrxQubEQ 8ojGJsMIpaKn4yjHkwjGm mOG0uTLKmumbe CJAtvI8xROSjdUJuqNknH J8sENUaonulc036ArXpTM U5PHTzwEUaM5NysG5nRoR dXNQcGISqY5Sv oZMfNNqkX605LMpcNzU7W MGljnTeB2UaWJVovIxtNi U0m5A1Po7StNQvFMCsBC5 9JI13RI24A8Iy PjwvdGFibGU+PHRhYmxlI HdpZHRoPScxMDAlJyBzdH frBC3uCo2sYAPrSKBcyDf lsXExCoOai4ng MIUjILznIQ9zaJrnF2Mny HR9PFZrm8t9Zk64U80mF1 JvdXA+CEBedHJ9kEG0wD4 pAoGuIsK0QEfg E242LoUivDMyEgpfq3xjx 9nyfUb7DuJsXXStmkQhlS qvLPQ5s8CyNc86J77wXGy pZHRoPSIyMCUi HURubEhmmo1avD9gYr9+P VAwpFD9qSB9pA1pDaWmUj E0NNgzA114RqRczIJrHao vM89sW9IqcLO+ VXToTyk6BWExwEupET3if PClVSteYy7gEND1ZfKyHc EeRVwkD3KmJRUatvtipnz eeSB7LZCfDYIm pX93Nj5wbWojSm0oGEYkD VB4QAOotJKtT4XvbH9gTi XkWBBoDYOaB6PdkOPeULc bF143VRylHkE6 QXCikzTzI9RpRRLzmWsuC sO9q7X3Nq7WeVlfrZXyVT 7kZzOwSAr7F1HyUrv3IGJ heQyqDK2uzOWp JQxhTl0lcYygdWtsKY8mA IIdtgbhq310CpVrp2ajKR AflPJsZXsbXLY0R27wp9G 2DEDsYKEcNTL8 zON9hN4heUimckqgkLGzr DsgdmVydGljYWwtYWxpZ2 54VTKghRjoEzWRAsg2V8K wPiw9EUAgqBqc KY2xkTHvFQzhAx8hoZerh AvmZI4vERYcninnq688Gs Wnp0yuERYfwGTyFBwlCTY 9R66vi4L3EXPr KLRsHZO3gBD2yG4qdWgfh jogbGVmdDsgdmVydGljYW cwUPchT507HZOaoZfoIx6 HQec2C2HpYnq5 ARVvjWsrWY0ikCTeUFlxE x6aaDylyNoxWE5bBSAvjy fmi970KmDuw5vmTQIgkRK nRRjjKHA0U93l c2U2CDGhQFFpXQL6mUD6y R3sdOcmrluqpFYadAmhaj OvhZcnNGyyOVdjP458KZF vcDsnPlBheWVy OjwvdGQ+OP03cd87E7MvU tvgQpv1DOSzGUE8hOV1iN 2zRMMvDWbnd7M9gZM9G4F smmMekm1cu6uu YXBz (more content not included)... [facility] XR Spine Cervical 2 or 3 [...] Olivares M.D. Transcribed by: CAITY Technologist: SULY [facility] Consent for Treatmenton 10-05 Consent for Treatment [id number]# 1.00CD:127 [facility] Consent for Treatment [id number]#1 .00CD:127 [facility] Consultation Noteon 11-01-19 Consultation Note Patient: ELISA LEUNG Age: 61 years Sex: Female : 1960 [...] has, # 60 tab(s), Refills(s) 0, Pharmacy: [facility]/pharmacy #[id number], 166.8, cm, 10/11/21 14:46:00 [...] Oral, Daily, Prophylaxis fluticasone 0.05 mg/inh Nasal [place]: 1 spray(s), Nasal, Daily, Refill(s) 0, Allergy [...] list: All Problems Palpitations / SNOMED CT 284373729 / Confirmed 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 Hypertension / SNOMED CT 9690393114 / Confirmed Anxiety / SNOMED CT 12668779 / Confirmed Lumbar disc disease / SNOMED CT 4391599399 / Confirmed Lumbar radiculopathy / SNOMED CT 872702057 / Confirmed Chronic gastritis / SNOMED CT 71013551 / Confirmed Migraines / SNOMED CT 72975892 / Confirmed Insomnia / SNOMED CT 637901702 / Confirmed Colon polyp / SNOMED CT 353189509 / Confirmed Chronic leg pain / SNOMED CT 732627577 / Confirmed Laxative abuse / SNOMED CT 328060375 / Confirmed Chronic cluster headache / SNOMED CT 579127580 / Confirmed Vitamin D deficiency / SNOMED CT 55279624 / Confirmed Hyperlipemia / SNOMED CT 54173260 / Confirmed Osteoporosis / SNOMED CT 569047537 / Confirmed 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 [facility] Comment on above: Result Comment: Elec tronically Signed By: Sophy Rush PA-C\.br\Date and Time Signed: 10/31/21 12:26 EDT\.br\Electronically Co-Signed By: Derick Meza MD\.br\Date and Time Co-Signed: 11/01/21 07:42 EDT Office/Clinic Note-Physician on 10-31-2021 Office/Clinic Note-Physician [id number]# 1.00CD:127 [facility] Orders Officeon 10-31-2021 Orders Office [id number]# 1.00CD:127 [facility] Physician Orderon 10-31-2021 Physician Order [id number]# 1.00CD:127 [facility] Orders Officeon 10-28-2021 Orders Office [id number]#1. 00CD:127 [facility] IntraOperative Documentson 0 10-25-2021 IntraOperative Documents [id number]# 1.00CD:127 [facility] Vital Signs Date Time Vital Sign Value Performing Clinician Faci lity 10-10-2022 13:14-0500 Diastolic blood pressure 68 mm[Hg] Sophy [employer] [facility] 10-10-2022 13:14-0500 Heart rate 62 /min Sophy [employer] [facility] 10-10-2022 13:14-0500 Mean blood pressure 90 mm[Hg] Sophy [employer] [facility] 10-10-2022 13:14-0500 Respiratory rate 12 /min Sophy [employer] [facility] 10-10-2022 13:14-0500 Systolic blood pressure 135 mm[Hg] Sophy [employer] [facility] 08-22-2022 13:06-0500 Diastolic blood pressure 61 mm[Hg] Eddi Arana [facility] 08-22-2022 13:06-0500 Heart rate 65 /min Eddi Arana [facility] 08-22-2022 13:06-0500 Mean blood pressure 76 mm[Hg] Eddi Arana [facility] 08-22-2022 13:06-0500 Respiratory rate 16 /min Eddi Sumit [facility] 08-22-2022 13:06-0500 Systolic blood pressure 106 mm[Hg] Eddi Sumit [facility] 07-11-2022 13:57-0500 Diastolic blood pressure 76 mm[Hg] Eddi Sumit [facility] 07-11-2022 13:57-0500 Heart rate 77 /min Eddi Sumit [facility] 07-11-2022 13:57-0500 Mean blood pressure 99 mm[Hg] Eddi Sumit [facility] 07-11-2022 13:57-0500 Respiratory rate 16 /min Eddi Sumit [facility] 07-11-2022 13:57-0500 Systolic blood pressure 146 mm[Hg] Eddi Sumit [facility] 06-20-2022 12:30-0500 Diastolic blood pressure 75 mm[Hg] Sophy [employer] [facility] 06-20-2022 12:30-0500 Heart rate 57 /min Sophy [employer] [facility] 06-20-2022 12:30-0500 Mean blood pressure 94 mm[Hg] Sophy [employer] [facility] 06-20-2022 12:30-0500 Respiratory rate 12 /min Sophy [employer] [facility] 06-20-2022 12:30-0500 Systolic blood pressure 133 mm[Hg] Sophy [employer] [facility] 03-28-2022 12:43-0400 Diastolic blood pressure 69 mm[Hg] Sophy [employer] [facility] 03-28-2022 12:43-0400 Heart rate 51 /min Sophy Rush [facility] 03-28-2022 12:43-0400 Respiratory rate 18 /min Sophy Rush [facility] 03-28-2022 12:43-0400 Systolic blood pressure 135 mm[Hg] Sophy Rush [facility] 12-20-2021 12:28-0400 Diastolic blood pressure 79 mm[Hg] Sophy Rush [facility] 12-20-2021 12:28-0400 Heart rate 51 /min Sophy Rush [facility] 12-20-2021 12:28-0400 Mean blood pressure 97 mm[Hg] Sophy Rush [facility] 12-20-2021 12:28-0400 Respiratory rate 18 /min Sophy Rush [facility] 12-20-2021 12:28-0400 Systolic blood pressure 134 mm[Hg] Sophy Rush [facility] Encounters Encounter Date Encounter Type Care Provider Facility Start: 09-10-2023 Telephone encounter Tiffani Munson [employer]YING MACHINE OPERATOR-GRINDING MACHINE TENDER Work Phone: [facility] Start: 09-05-2023 Telephone encounter Tiffani Munson [employer]UG DRYING MACHINE OPERATOR-GRINDING MACHINE TENDER Work Phone: [facility] Start: 10-10-2022 End: 10-11-2022 ambulatory Derick Meza [place] [place]: 10-10-2022 End: 10-10-2022 Patient encounter procedure Sophy Rush [facility] Start: 08-30-2022 Encounter for genera l adult medical examination without abnormal findings DR EMI FRIEDMAN . The [facility] Start: 08-26-2022 End: 08-27-[address] EMI FRIEDMAN . Facility: Start: 08-26-2022 End: 08-27-2022 Encounter for general adult medical examination without abnormal findings DR EMI FRIEDMAN . Facility: Start: 08-22-2022 End: 08-23-2022 ambulatory Emi Friedman [place] [place]: 08-22-2022 End: 08-22-2022 Pain Management Eddi Arana [facility] Start: 08-01-2022 End: 08-02-2022 ambulatory Eddi Arana [place] [place]: 07-11-2022 End: 07-12-2022 ambulatory XXXX NONE [place] Start: 07-11-2022 End: 07-11-2022 Pain Management Eddi Arana [facility] Start: 06-27-2022 End: 06-27-[address] YASMINE DAMON . Facility: Start: 06-27-2022 End: 06-28-[address] EMI FRIEDMAN . Facility: Start: 06-20-2022 End: 06-21-2022 ambulatory Derick Meza [place] [place]: 06-20-2022 End: 06-20-2022 Patient encounter procedure Sophy Rush [facility] Start: 05-04-2022 End: 05-05-2022 ambulatory Sophy Rush [place] Start: 05-04-2022 End: 05-04-2022 Patient encounter procedure Sophy Rush [facility] Start: 04-20-2022 End: 04-21-[address] EMI FRIEDMAN . Facility: Start: 04-04-2022 End: 04-05-[address] EMI FRIEDMAN . Facility: Start: 03-28-2022 End: 03-29-2022 ambulatory Derick Meza [place] Start: 03-28-2022 End: 03-29-2022 ambulatory Derick Meza [place] Start: 03-28-2022 End: 03-28-2022 Patient encounter procedure Sophy Rush [facility] Start: 12-20-2021 End: 12-21-2021 ambulatory Emi Friedman [place] Start: 12-20-2021 End: 12-20-2021 Patient encounter procedure Sophyashley Rush [facility] Start: 12-08-[address] EMI FRIEDMAN . Facili ty:[facility] Start: 10-31-2021 End: 11-01-2021 ambulatory XXXX NONE [place] Procedures Date Procedure Procedure Detail Performing Clinician Start: 08-01-2022 Epidural injection of lumbar spine using fluoroscopic guidance Eddi Arana Comment on above: L5-S1 CHRISTY- 0% relief Start: 10-18-2021 Cervical arthrodesis Sophy Rush Start: 06-13-2021 Epidural injection of cervical spine using fluoroscopic guidance Sophy [employer] Comment on above: C7/T1 CHRISTY-minimal relief Start: 05-26-[address] 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 Phone: Application of pelvic traction Sophy Rush Comment on above: for 8 weeks in 1988 for left broken pelv ic bone Aspiration of ovarian cyst A phillip [employer] Comment on above: 1987 Bone structure of left navicular Sophy [employer] Comment on above: 2019 removal of pieces of broken bones Deviated nasal septum (disorder) Sophy [employer] Comment on above: 2003 Excision of lesion of skin A phillip [employer] Hysterectomy Sophy [employer] Comment on above: 1993 Injury of right ankle Sophy Rush Comment on above: Dr Fields Ligation of fallopian tube A phillip [employer] Comment on above: 1984 Operation on lymph node Fredy marianne Rush Reduction mammoplasty Sophy [employer] Comment on above: 1989 Structure of left sh oulder region (body structure) Sophy [employer] Comment on above: 1986 Plan of Treatment Date Care Activity Detail Author Start: 08-28-2024 DTaP,Tdap and Td Vaccines (2 - Td or Tdap) DTaP,Tdap and Td Vaccines (2 - Td or Tdap) [facility] Start: 04-06-2023 COVID-19 Vaccine ( season) COVID-19 Vaccine ( season) [facility] Start: 04-06-2023 Influenza vaccination Influenza Vacc ine [facility] Start: 12-21-2022 Adult BMI Screening Adult BMI Screen ing [facility] Start: 12-21-2022 Tobacco Screening Tobacco Screening [facility] Start: 09-04-2022 Screening for malign ant neoplasm of colon Colonoscopy [facility] Start: 1974 Depression Screening Depression Scre ening [facility] Immunizations Immunization Date Immunization Notes Care Provider Catrina michael 05-11-2021 influenza virus vaccine, unspecified formulation 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 2018 Unknown [id number] 1960 Unknown [id number] 2.16.840.1.954207.3.579.2. 1962 Unknown [id number] 2.16.840.1.568676.3.579.2 1962 Unknown [id number] 2.16.840.1.422347.3.579.2 1962 Unknown [id number] 2.16.840.1.478193.3.579.2 1962 Unknown [id number] 2.16.840.1.057918.3.579.2 1962 Unknown [id number] 2.16.840.1.618148.3.579.2 1962 Unknown [id number] 2.16.840.1.335419.3.579.2 1962 Unknown [id number] 2.16.840.1.659237.3.579.2 1962 Unknown [id number] 2.16.840.1.959272.3.579.2 1962 Unknown [id number] 2.16.840.1.488907.3.579.2 1962 Unknown [id number] 2.16.840.1.569118.3.579.2 1962 Unknown [id number] 2.16.840.1.444825.3.579.2 1962 Unknown [id number] 2.16.840.1.877948.3.579.2.727 1962 Unknown [id number] 2.16.840.1.306770.3.579.2.727 1962 Unknown [id number] 2.16.840.1.905578.3.579.2.727 1962 Unknown [id number] 2.16.840.1.888758.3.579.2.593 1962 Unknown [id number] 2.16.840.1.754483.3.579.2.593 1962 Unknown [id number] 2.16.840.1.030830.3.579.2.593 1962 Unknown [id number] 2.16.840.1.326624.3.579.2.593 1962 Unknown [id number] 2.16.840.1.769017.3.579.2.593 1962 Unknown [id number] 2.16.840.1.902591.3.579.2.593 1957 Self-pay Social History Date Type Detail Facility Start: 06-28-2021 End: 12-21-2021 Tobacco smoking status Ex-smoker (finding) [facility] Tobacco smoking status Never [facility] Start: 09-16-2020 End: 12-21-2021 Sex Assigned At Female [facility] History of tobacco use Current smoker [facility] History of tobacco use Cigarette Smoker P [facility] Start: 09-16-2020 End: 12-21-2021 Cigarettes smoked current (pack per day) - Reported 1 [facility] Start: 12-21-2021 Tobacco use and exposure Smokeless tobacco non-user [facility] Start: 12-21-2021 Alcohol intake Current drinke r of alcohol (finding) [facility] Start: 08-22-2017 Tobacco Comment QUIT 9 YEARS AGO [facility] Start: 08-22-2017 Alcohol Comment SOCIAL/BEER [facility] Start: 1960 Sex Assigned At Not on file P Ticket [facility] Medical Equipment Procedure Code Equipment Code [...] A 10/18/21 Unknown [place] FDA Start: 10-18-2021 Functional Status Date Assessment Result Facility 10-10-2022 Functional Status N/A [facility] 08-22-2022 Functional Status N/A [facility] 07-11-2022 Functional Status N/A [facility] 06-20-2022 Functional Status N/A [facility] 03-28-2022 Functional Status N/A [facility] Clinical Notes 10-31-2021 to 09-10-2023 Telephone Encounter - Nova Gomez - 09/10/2023 11:13 AM ESTTelephone Encounter - Nova Gomez - 09/10/2023 11:13 AM ESTTelephone Encounter - Nova Gomez - 09/05/2023 1:02 PM EST Note Date & Type Note Facility 09-10-2023 Miscellaneous Notes Formattin g of this note might be different from the original. Called Ramandeep Mary/Dr. Friedman's office as we received a screening colonoscopy referral for Elisa, but she had a colonoscopy in 2018 and not due for a repeat until 2027. Spoke to Hargill's nurse and she states that Elisa is aware of this also and to please disregard the referral. documented in this encounter [facility] 09-10-2023 Telephone encount er Note Called Ramadneep Mary/Dr. Friedman's office as we received a screening colonoscopy referral for Elisa, but she had a colonoscopy in 2017 and not due for a repeat until 2027. Spoke to Hargill's nurse and she states that Elisa is aware of this also and to please disregard the referral. [facility] 09-05-2023 Miscellaneous Notes Formattin g of this note might be different from the original. Called Dr Friedman's office as we received a screening colonoscopy referral for Elisa, but she had a colonoscopy on 09/04/2017 and is not due for 10 years. They are to let Dr. Friedman know. documented in this encounter [facility] 09-05-2023 Telephone encount er Note Called Dr Friedman's office as we received a screening colonoscopy referral for Elisa, but she had a colonoscopy on 09/04/2017 and is not due for 10 years. They are to let Dr. Friedman know. [facility] [employer] [facility] 10-10-2022 Evaluation + Plan note Extrac che [...] will follow-up with Dr. Derick Meza at [facility]. She has this information. Future Scheduled Tests Radiology* XR Spine Cervical 2 or 3 Views 10/31/21 [facility]01-17-2023 Evaluation + Plan noteExtracted from: Title:FUV Author:Eddi Arana MD Date :08/22/22 Impression and [...] Spine Cervical 2 or 3 Views 10/31/21 [facility]12-27-2022 Note [id number]:127[facility] 07-11-2022 Evaluation + Plan noteExtracted from: Title:FUV Author:Eddi Arana MD Date :07/11/22 Impression and [...] Spine Cervical 2 or 3 Views 10/31/21 [facility]11-15-2022 Evaluation + Plan noteExtracted from: Title:Spine Follow [...] Spine Cervical 2 or 3 Views 10/31/21 [facility]08-23-2022 Evaluation + Plan noteExtracted from: Title:Spine follow-up [...] Spine Cervical 2 or 3 Views 10/31/21 [facility]05-17-2022 Evaluation + Plan noteExtracted from: Title:Spine surgery [...] Date:03/28/2022 12:30:00 PM Scheduled Provider:Sophy Rush PA-C Location:[facility] Appointment Type:Pain Management - Follow Up (FT) Future Scheduled Tests Radiology* XR Spine Cervical 2 or 3 Views 10/31/21 [facility]03-28-2022 Evaluation + Plan note Future Scheduled Tests Radiology* XR Spine Cervical 2 or 3 Views 10/31/21 [facility] Future Appointments Appointment Date:03/28/2022 12:30:00 PM Scheduled Provider:Sophy Rush PA-C Location:[facility] Appointment Type:Pain Management - Follow Up (FT) Future Scheduled Tests Radiology* XR Spine Cervical 2 or 3 Views 10/31/21 [facility] Future Appointments Appointment Date:04/25/2022 11:00:00 AM Scheduled Provider:Sophy Rush PA-C [facility] Appointment Type:Spine - Follow Up (FT) Future Scheduled Tests Radiology* XR Spine Cervical 2 or 3 Views 10/31/21 [facility] Future Appointments Appointment Date:05/23/2022 11:30:00 AM Scheduled Provider:Sophy Rush PA-C Location:[facility] Appointment Type:Spine - Follow Up (FT) Future Scheduled Tests Radiology* XR Spine Cervical 2 or 3 Views 10/31/21 [facility] Narrative No data available for this section [facility] Discharge instructions No data available for this section [facility] CenterInstructionsNot on filedocumented in this encounter [facility] No data available for this section [facility] Summary Purpose Family History No Family History Records FoundNo Family History Records Found Advance Directives No Advanced Directives Records FoundNo Advanced Directives Records Found Additional Source Comments Care Team (unrecognized sect ion and content) Construction Assistant Relationship Specialty Start Date End Date Emi Friedman MD [address] [place] [address] PCP - General 08/15/17 INFORMATION SOURCE (unrecogn ized section and content) DATE CREATED AUTHOR 10/23/2022 [facility] DATE CREATED AUTHOR AUTHOR'S ORGANIZ ATION 11/28/2022 [facility] FOR RECORDS PERTAINING TO PATIENTS WHO [...] BE BASED ON THE PRIMARY CLINICAL RECORDS. [facility] [employer] provides no warranty or guarantee of the accuracy or completeness of information in this document.
[2024-01-14 12:57] LABS: Bilirubin Urine NEGATIVE (NEGATIVE); Blood Urine NEGATIVE (NEGATIVE); Clarity Urine SL CLOUDY (CLEAR); Glucose Urine UA NEGATIVE (NEGATIVE); Ketones Urine NEGATIVE (NEGATIVE); Leukocyte Esterase Urine SMALL (NEGATIVE); Nitrite Urine NEGATIVE (NEGATIVE); Protein Urine TRACE mg/dL (NEG/TRACE); Specific Gravity Urine >=1.030 (1.005-1.025); Urobilinogen Urine 0.2 EU/dL (0.2-1.0)
[2024-01-14 12:58] LABS: Color Urine DK YELLOW (YELLOW)
[2024-01-14 13:54] LABS: Bacteria Urine SMALL #/HPF (NONE SEEN); Cast Seen? NONE SEEN #/LPF (NONE SEEN); Crystals Seen? None Seen #/HPF (None Seen); Mucus Urine TRACE (NONE SEEN); RBC Urine 0-2 #/HPF (0-2); Squamous Epithelial Cell Urine FEW #/LPF (NONE/RARE); WBC Urine 75-100 #/HPF (NONE SEEN)
--- OUTSIDE RECORDS SUMMARY | 2024-02-05 08:36 | XMS_ITS | CCD ---
Author Organization [facility] Care Team Providers Care Corporate Paralegal Name Role Phone Emi Friedman Primary Care Physician [phone] Emi Friedman Referring Unavailable Rush, Sophy Attending Unavailable Rush, Sophy Admitting Unavailable HoEmi vásquez Referring Unavailable Rush, Sophy Attending Unavailable Rush, Sophy Admitting Unavailable HoyLinoEmi Referring Unavailable Rush, Sophy Attending Unavailable Rush, [...] Arana Referring Unavailable Eddi Arana Attending Unavailable Meza, Derick A Attending Unavailable Meza, [...] Unavailable CHANTALE ., DR MIDDLETON Admitting Unavailable HOMelissa ., DR MIDDLETON Attending Unavailable HOY ., DR MIDDLETON Primary Care Unavailable CHANTALE ., DR MIDDLETON Consulting Unavailable LAKHWINDER, DR FRANCO Sethi Consulting Unavailable KARASIJose ., DR UNDERWOOD Admitting Unavailabl e KARDORA ., DR UNDERWOOD Attending Unavailabl e HOY [...] Unavailable HOY ., DR MIDDLETON Consulting Unavailable LAKHWINDER, DR FRANCO Sethi Consulting Unavailable Emi Friedman MD Primary Care Provider [phone] Allergies Allergy Classification Reported Allergen(s) Allergy Type Date of Onset Reaction(s) Facility (14 sources) Adhesive Tape; Translations: [Tape] Drug allergy Eruption of skin (disorder) [facility] (16 sources) Penicillin; Translations: [penicillin] Drug Allergy 9 Weal (disorder) [facility] (14 sources) Sulfonamides (Antibiotic); Translations: [sulfa drugs] Drug allergy Weal (disorder) [facility] (1 source) Desonide Drug Allergy 9 [facility] (1 source) natural latex rubber Drug allergy (disorder) [facility] (2 sources) Sulfonamides (Antibiotic) Drug allergy (disorder) [facility] (2 sources) Adhesive agent Propensity to [...] Virus Nucleoside Analog DNA Polymerase Inhibitor Start: 10-05-2021 take 1 tablet by mouth once daily [...] daily ALPRAZolam (XANAX) 0.25 mg tablet TK / TO 1 T PO TID 0 05/13/2020 [...] Active Start: 10-03-2021 take 1 tablet by [facility] once daily biotin 1000 mcg oral tablet [...] Corticosteroid Start: 05-20-20 fluticasone 0.05 mg/inh Nasal [place] 1 spray(s), Nasal, Daily, Refill(s) 0, Allergy symptoms Start Date: 05/20/21 Status: Ordered take 1 spray(s) nasal route once daily fluticasone propionate (FLONASE) 50 mcg/actuation nasal spray Administer 1 spray into each nostril daily. 0 Active fluticasone 0.05 mg/inh Nasal [place] (6 sources) Start: 05-20-2021 fluticasone 0.05 mg/inh Nasal [place] 1 spray(s), Nasal, Daily, Refill(s) 0, Allergy [...] blood pressure Start Date: 10/03/21 Status: Ordered [facility] Medication (4 sources) Start: 07-11-2022 [facility] Medicatio n See Instructions, collagen powder 1 scoop daily Start Date: 07/11/22 Status: Ordered lgdvahdb-ymvo-OS-ca lcium &mins (THERAGRAN-M) 9 mg iron-400 mcg tablet (2 sources) pyvabfgy-tnyp-JD -ca lcium &mins (THERAGRAN-M) 9 mg iron-400 [...] Ordered Start: 06-14-2020 take 1 capsule by [facility] once daily omeprazole (PriLOSEC) 40 mg capsule [...] Range Facility Coding Summary.on 10-23-2022 Coding Summary. [id number] G h0bWw+PGhlYWQ+XD7OUDC bJ26cqFCmmG4dU1EHOIpZ SywgQVBQTElOSyIgbmFtZ N8wlKVfXBWy IC8+XC8vJMWaMdrgcMTez 1B9uTY3N17jby9hNUdukF Y1EEJpTeAgwgpwq1qvfAy 6IDcuNmluOyBt HCGgpK08NOF3dO81Gu14r DNdjDBnz2qhdIl1WnFwXL PzNOV5rHqfYChgk8YdHYT wD30sfXNml5H7 AUGxsZltvAHaDcJhwVK0l J3fQUfluosow0rsoksrFu d4xu02dFIqm9T1rUO2R2R pwiW2PIUuaMSq HbzbvDLXxK9jiawky7kty maaIyXoFWZcOUo8YHk7BK VcpCboRpDtHT78QHX2TVR ujzDrN4BpMPYy jOkjBiM0r7P7Ts6NS8DHJ pmdB4ZUVPLZTBnihGS+PC 22ua22T4XgUweyCxr4JAO qMFZ7jQP5hK0q AWRhRAmnt7X0xHS6W6Fcw fIark6kp1vaMKWeAZvlJ7 9ouHXzk0M0BKUwbJO5KEQ ykGypBkSgbZ91 Oyc+IRGodWhrc5UtSinqj 7api0ynqKz5QkziMZHlio NjvTbbVHH0s7AhRc3qJVV peYX5nPB6aL2n XeFdVmB3WLxtF244PvNrk KUrKisbS51kV2ExxGZ+PH XsCrk3OJNqbLduWV9wL4A hZGRpbmctbGVm gQfiJN6yXKOwdjjaXAMbu L3tVYJbM3v0ClDwYoK9KL flS0ErTCFwrmdrFo22rU6 bYaWsIkV7UZss Y5UzvkU8YTSxrPTlYTwaZ SV6Q48xh7A0GBNmAHEjDG X7pAI1vJ9ggKpznvwfbLD mdDsgdmVydGlj FEwpMHezG893KVKjoMgdI kNvZGluZyBEYXRlOiAgMD MvMjAvMjAyMzwvdGQ+PHR nWQI3dDleYVMl kWBfWCrxSc2iyTlvxKvuT J7yKBNagrsiPLQitG8yCC JzaINeiXvwUB3hVGThida ix648KuUlNFQ6 VIHfqIWfJ9DrqS1gCpWqN SZwZVLfC2YkzUAoQDqfN5 90EMplKrZ5JJAhodYqG3J sLWFsaWduOiB0 p8H7Ne1Ae5RkdmyfL4Tvh BSrAlRrKtleIJu5P2TcDo wvdHI+LE10EWQtAM80EKn 8NQK4sDapZKck MPIeK7OahX7tUzTdXIRoD GRkOyc+PHRhYmxlIHdpZH RoPScxMDAlJyBzdHlsZT0 iKx4nHJCgPULn uLxdpYHiBfNyp5pkXCCcA PtiOI8pwFamL8JulAC9BZ Yoo6v6Ca13P48nQ0EyjWY +YRBsjRN0yVX9 pH7kAvLnZnT6LOsaF238J rWzuDGpPbuiu3gco4jrxB l4HcI8GHYqkvThaBxyHLS 6s6NsOp81X05r IHdpZHRoPSIxNSUiIHZhb Wkwbn1nwW5cFd3+PGNvbC E1jOB4iW7zJdInIuV6OQm qD786IhLhtAWh Pvuim1uba2gltYi7OaBzD OXfryNzmIuuODJ2t8DfIh 28N6NlbSltr1PaAxq7li6 8kTVsa7L8sAA4 V1KrLXPquewjyYSlzQieX M2uAWFdehhtMHQqoM0zGR EbI5h4DdUhEfF7CNthJ4M tbkL2VOBglTSe LTCfvPDHtN6mgpzee4kml fkfNdYmABHhKDc2NXy9EG SznMjsVvQvHLA3WsB2NDB 9nXZmuQ7jkIdx apjprH6kSrv+QXI1kJXuh NLONW0rZcrbsCI+PHRkIH K0yWjgYWbrEHZtdZ5vEIP rC5k5MtVjFgD5 PJhaQ6BlkwC6SANpnAKgK UYzsIHCfE5fkpvfo1xyuc qaSvThIYVcVFw5LWk1XCE saWduOiBsZWZ0 HgU4MTO2kBQalC0vzRhcz olbsB3eEby+QmlydGggRG X3ACj7C6GdNqn5JJQkeEh bKJ7pbBIaUCjn Oe6neWkajNivIQ8dEDRji rpfe608MjKjt9zxTIIuzU RoEGofCJN4I02lz5A2TFW pPKIaIIR3aPN2 sT8iwKpinylkwTClvQsvx sJfnYltVCpnJYckZ970XU XjuAyoBbSjNQu9X6AsMln 1MEXuaUyaJK2e bYMvTCyfIo8oqOrqiZppM E9fVXYagzsip255IhUxu5 oxEPIpaLHwDRktWCH3L19 dc8F8NXIlNYRt VQQ9cXW9nK1uhOhchkvko GVmdDsgdmVydGljYWwtYW jwV418TMNaaQgzRbUeaBz 6F0MhXzc6VLDk bSheSZ3ttBEeAPqmAf6bh NsfnGrpJK1wICYmcmkyt1 08AxAja9gqEQEsqKYuQSp nISG9N87bh3G3 IOCsHACwHKE3lFM8mQ0py GlnbjogbGVmdDsgdmVydG yhSLxmIUhrE639PNYbyMm nPlBhdGllbnQg DGxxPLb6X0GaRxolhXM+P F70SMIdCG51iKOmnYMaz4 cdiVf3FwOjAPZsURE0qLb zTZcxc0OtEUHc N13yxYZos9J4LBLstDpxc UJbLyFhsXJ4sB6xRHqafr nfw5gnvgeiXsdqf0zhfc0 8jF52U37nEDxg ZHRoPSIzMCUiIHZhbGlnb t0kuY3rUx9+QWZqvCX1nN S3uM5mOIScVoO5UQpnW23 9InRvcCIvPjxj l5syk2hueFn6AiP3RYThr pXgvZjsZQF2e3QhIp84V2 9sIHdpZHRoPSIyMCUiIHZ vkRjlha1tuI8d Ii8+KEByySD3qSB9bD7wA cHpLlU2OBtyW150PjWkyA UdDjfuO55yI6YukIZ+PHR mSzp3RXCncYoi BZ6hwTRdZOnhHt9rUDH6R jUlQbVgPHguH0IiIYCrhy ehwntrhLV2YZLdSYFxdE0 1Cw3fkGozDLFy zHTFeO5gtjpbp3mhpqyaO eImQMJqCRk4NDp9SEIoiL axMjOoRXA2IcS7LHD0jEM kgT3rfWthqszq yS8yI2WxVZWclevuTj02g I2yFgSsVnB3BFbvXba+Ql WPPo5EFVekAIQPWkDlESk vdGQ+PHRkIHN0 nKxtXDtjMLQurB3uBXSbD 9m0VcReNzA0JSbwC0XbGJ IbmchyJb32jZ0jQeBmMxB 0OZwiZ1CeduL4 QOZekHGvTHlxLYM0R84al 3U7SEJpBLKbEQI4mJQ7xG 1hbGlnbjogbGVmdDsgdmV ydGljYWwtYWxp J415XVTerVzqEaO0SzNgD dM9ZpZ0L0AhEjs2KEXjsZ xsBC5qbWSxYGteGi4neBj wyLoaRF7xXWQw vysmBZUydF3eGXJnuVSed GxnHD5gIQPcavmgb126Xw HtSCU1MMOsmKPiT1AhbF6 yOiAjMDAwMDAw T2PsaSNdACuuG300PVrhG cO6IXWobpRrO0IiOEKnmC gyAzK5r7F2Gs28NJAJRGD yczwvdGQ+PHRk TKJ7bTvkNEmyVPMpzC7zD FJcI3g6TmZgNvD1KYodW5 EjJGMhxxdfJu64zA2lPiR bGrU2RSzrW1Zl vkU7XLNswUBgZIfhIAN7B 21xw4D7LHIgEADxIBA5yH R6zU0azHwgpgyxcITtgVn gdmVydGljYWwt IJkzH261VONohUgyQnHcn WFsZTwvdGQ+IPCgWQS3wZ gzLNdxGTAooU8uLCHoV2l 2DrGzSmL2QRzo T0OePMDlwhakJe02bT1jH wLiEuE9DUumD5HujzY5EO DofWOwXGhmWYH8M32ih4A 1JRTrTYVoAJX2 nXE9rX8aqNtchsikdFMte DsgdmVydGljYWwtYWxpZ2 92LCUmaUeyFp40wKZdhFq jmpR1D5TlFspz dHI+EQ10AXGnVV10uQYyu WIdp2kzaOe1NzSoPGSbPR S9dUacVFnvj8KzCCJrI94 nxXZgb5Z8ZEOw oPfmuDYmZhYvsNA0kJ2wG Bsjdynjh9hfaubjYmclk7 lulc78oU19B10bGCldUBP oPSIzMCUiIHZh fGufqg6blH8yOy0+PGNvb VX0dSO1qL6aBkDjQtE8PV wpB844OaSgkDFpTweme3g mr4hpdLn1HmHl OLLdaoCaiEamIYK3q4ShE f82E75uHPvhWMCzQTTmQF FiVGEzgSgoic3icT9wWg0 +PF7we9vmcm83 tD27bIV+HQQcDVZ0rXmlX JywDMLxkQ6zDDaoJmC8RF OfEhYxpI02hYDvMFcbWw1 qcXhacEokNA9a MVDlhgojm033DeVjd8kgQ CHkjUCzGYhjTAR4Q61xg2 G2FCGqDFHbVJW1qJQ4wX4 hbGlnbjogbGVm dDsgdmVydGljYWwtYWxpZ 698JBOwgCauSzLqfDDhC2 ngggKASE7oUbnitOO+PHR aXVU5zJxxPUwe JNTpoQ1qAJYoA9g9UbPnA uZ7ATilR7LgdqA8LUUelJ RbNLKpbJHFpM9pgnxyk6t vcjogIzAwMDAw HKa9VFz6SVYccTtnPaJbE ZU3VzQ2VKT0aZPmjF6ahK naahsjeS6yYfj+RklOOjw vdGQ+PHRkIHN0 zAjpPCjnCUPyyD8jUWJkM 7c2UaSnImB5LKudJ4Dlwd A5QEDmpBAmWTBrjXBFyB9 dthhtu3gntszj PxSqPPYnZTy6USi4FVPta DyfLvMjCPI4XhC1MYO0wI QadM1tfCrnamiemP8xZxj +TVJOOjwvdGQ+ ZAPvUWS6bFemACzqKPMld M7lFXKrH1f3FkLwOzJ6WJ htJ5BecgF1OWGwpXEoSTR tcUJGtH7djclz m0tgkqukUsUdKTRmQUl1B Jv0WNLaoElfHlAvZMC9Xx C9OIG7eLHvqO8ygSszptm rjA3uCtx+UGF5 VBO5CN58EB18S7ToTgkxq GFibGU+PHRhYmxlIHdpZH RoPScxMDAlJyBzdHlsZT0 kFy2lPHOeVQGu bGxh (more content not included)... Normal [facility] Coding Summary.on 10-17-2022 Coding Summary. CD:[id number] G h0bWw+PGhlYWQ+DR5LAXJ kE48coGTlrQ7mK7OXURuP SywgQVBQTElOSyIgbmFtZ D3knHDlYCLg IC8+QL0pHRFmVpdcyHEfd 3P2eFE4G09qcd3zSTznuY Z0LXNyXqIlmjzbq9jwtCf 6IDcuNmluOyBt OJKblQ89PCC7rX23Ck12d FAbgWThb0ogkNt9HnXvZJ KsUGG6aXpkEWvtg5RsUMI lM36xjNCbz4F2 POFigRhbgKLcDsEzmIQ7f S6lMPjdfmkpg4lsifnlHv j0us77pGRxb2Z6wMZ0T0P hjfC5LWOxvLPy RuiesFTRfB3ujsteb5wxd lusAiVmKZUaGDp5PMj1LM BflJcqBlFhNB85SOC2CFZ xdiHlK0NcWKGa rXguNyL6e5N5Kj4XR7PTV vfxO9NZNOBRYHexuID+PC 51fc74L4PiLrliYpw8HHV nCPD7wCO4dE0v XERjTNjac5H3rUW1C3Evf gZikd5mx7fxMBGkJIflO8 9xfCMhe6X3TJLtzMF3QPH bkNtrCsSzmD26 Oyc+VLAheMzsw6MgYdgbl 6tnk8eufIc8EmdrJHSazv UvrOfhTKG7s2FjHv8aFLN ujHR7oBU3yQ6x MdShCiW9CQikY837YyVxd YBhGgytS45aS3GbvYF+PH PjEyx9VCScbCrxCX3fK4P hZGRpbmctbGVm fUjsGA5rOXRydmdxDMMfp Z4rWKQwK7i4JdAkBwP4SL qpF7KuBQSquglzAm55uX0 tOcBsFgS8NTye P6LdziG9XLQutFFcHIslR AU8Y36gu9U5WLWjYNVwKA S1gVM2hT8tsUnvrekhoKO mdDsgdmVydGlj HJpqXZqyZ653KCYdtMnoV kNvZGluZyBEYXRlOiAgMD MvMTQvMjAyMzwvdGQ+PHR aJOQ6mKeiJDHa tVMuQFylVa3faMlzjSzjG O5cZNLlendzOANeaN4eKT KlbOLmiIuzUN7yTJKdwrn xa674KmRcYCP1 ZJNrtPAvM7RkfU7yElQlI YJbMBVpW0PerELxDSlbX9 29IMxjRoL3DFGyvxHaA3W sLWFsaWduOiB0 y3G4Ax6Of0HhyxraK4Ygu FJfWdLzCrkiBKu9I1RwBc wvdHI+AK48YKFyWH00OYq 7OHJ4xEcyHVna MHWbB3DjmI1xPpLsHIXmV GRkOyc+PHRhYmxlIHdpZH RoPScxMDAlJyBzdHlsZT0 mUp8dDBZjOCCe hJxwsNSnHgVhv6jxJZQdW FgcRZ0wmBgbN2AxkRI8PW Ieq8c9Mg11F22lS7SrrAE +VLJmoZE3vYT6 aD0aIhPlPkQ8NJvuQ991G aWchALgElsnh5kme0dubS b3JeH7OHKyjnLxsTykHZE 6o1NsMt72T44i IHdpZHRoPSIxNSUiIHZhb Pnunh8ndD1gHu3+PGNvbC I0xET3jX7sFpWhXeU1PMy qJ553JvNefYZp Keizg2vso5pbkQi2RrVbM CFgizLdyNyoEIE4x6BuIk 23B0WyyArfy8RcXmz0vv4 4wEAlj3F6lOC2 X2PwRCIhxaokdRQpdVwiV J4qECVlbvsjELRcpF9bVE OzB6l1PmGdNsI2TJtsU5M lujP8ROAcfKOd QEHyvNTBbM8fxpufw9gzq ezlUlCzAULrHXw8ONd3ZO NpuNzsCqTuOFN6OsS1BDO 5qDWrxV1iqMif wydcfJ7oRlz+UTK1xVCac WKRWH1sMidmqQE+PHRkIH N2pOgvSQurAGBovJ7bKIL iB8o0FsGpRsU9 CKqvZ7OpqwK8DBLawSZdD UXgnOTTvA7vzucut5nvao juKqQjGWNzQCs6LOz0QRA saWduOiBsZWZ0 WvI8HJL8aMOnuZ5phRzae rcufT3dTgr+QmlydGggRG Z2QPd1Y7YhFbp5PPEvqNy mTQ4jjKYdNNnl Jz9lnYkpmDbcZX7rPHPnd whsr351ExWce1mgOQSxzW QpJNlbZQO2U42dp9B8QQT jUTBsHBM9cDL7 cC2sgMdfkhfvpLBfqNfrf xRxvIozKNnfSSkzH231SR CltElwGrTuKUn7X4SkCqz 4NHAhmWgySJ9v tDXzLQqhEp5gcSbwgFmeB C4hZERrahwwj835KbOfg8 mjIAGmhRIjDIplUZE8A36 ps5V2OHXdPEHw FSK7nFC8vL7zrYgslcloj GVmdDsgdmVydGljYWwtYW voD266TMSngShgMmXtsUg 2Q1ZeUuo7WCTo pKibQC4mvCZdIEimUq2up CpgmEdwEH4bJVEjjgyja0 55YdZbs4hfRMBkdKByFXh dFGS2U93cx7T6 PXVrEIIdEDQ6kJH1lD9mu GlnbjogbGVmdDsgdmVydG rnWGzsDOmgC577VTWmsJm nPlBhdGllbnQg SYpyKBa0C1XgKylhlNK+P Y73OPUoXO99uNKwvFRwa3 fbfPp7DgXuBRSlGWX7kDf rAYgsx2ApDEXq P28epIDhz0R4PSBduOxih QFbEcRilMQ5pR1eHKrbkd lff2simmseHrmhw2qcua6 0jR63A49aJEbm ZHRoPSIzMCUiIHZhbGlnb d9mrF3cOf2+QFHupXH4wX H2mT7kHUIrLrJ6TPbkW78 9InRvcCIvPjxj z0mjj4pviTb9IoT1KJJxz tTgbSpqYFN9d1TzHv88P3 9sIHdpZHRoPSIyMCUiIHZ cxGncje0hhT7y Ii8+WLVizQI6eGG8jM6tG qZrVmH4KLvdU754FcUnmI WlPfxiB99jP4QrqEF+PHR cThf7XWXtnEti PF2edMMgOBdnFr2iPUA9J xRqVnTwFPmeG1SfTXTysa hshoxkaGL7VHLcPRNryC2 2Dl7waKshQDWy gKYMyM6hdkomv4bhjnkkZ cDoYAAdOMb3HKm4OLHymP mbTeEePKD9EbF4JQH5eST axV0caVpmlgag yI5nF9MtWWQsrfuiPd44a W4pSlRxZzG9ZVobIek+Ql TAWg2YRQkiVOOCWiWpAMp vdGQ+PHRkIHN0 rTrpKVzhUJHesS5lZVLdK 4t2RuXaRnY9TUgvP9KcXA ZmiettCo45uC6fXkBkBeX 8HWotY1GhovU4 AANftMBwLDalNCZ6X25qw 7H0WNXyHXSfQFT4pBV9mA 1hbGlnbjogbGVmdDsgdmV ydGljYWwtYWxp K399WMVreXjuRqF1IdIgO iY9UjQ5Q6JzFpz3UAQhgH jmDI2yzHBlREzfRy6yhMh zhCqsYO1dNUUw piejQFEieH2xAGLweDVnt KzfBV2nOVCenavfd374Nf PrDAN5AFKcsBJyJ4BmnO3 yOiAjMDAwMDAw P9IihHUtVXroY166OGiiC cT2JJDbwlEpI9KvEFPovW dqYxC5q4R5Nj40VDRTLWK yczwvdGQ+PHRk SZQ4jOkpRBepCQIigR2sQ EVqO0b8FwUiWyK8VJaoH7 DkSJHlyyefJo62yJ2aPnS vBzQ8BZtcQ4Cn zjC9HZArjXCeNQldVUB6N 43sd0Y8UMEqAMQjLUA5fN K5mH6btFrqawqvdEUklHh gdmVydGljYWwt TPxiU030GGMrrRmqIwVsl WFsZTwvdGQ+VBByGJY7jD niTCabCBRmwP7oFPVjD6u 0NbLeViV6JOjs E8AzZOSamicgAa21xU2lD kQmCcA0LKcqM8ActnM9FJ OckEZnDEgzVAB4N82hu8Q 0JMTrVWHbHJN8 uXJ3aO2rtJzlqpvmpZXaq DsgdmVydGljYWwtYWxpZ2 25FWJvfLyiWw13vIYnbTy zowI7H3FeYwkj dHI+SE77WGIqYR93mTMva ADdx0ixpEi1CwUcBVNbEX R0cHfhOSekb5RwFKThD55 xrYYyh9K8PXFx rIpxhNStZaQiyTY2fJ8iV Pfsvyrsq8pascfiKkpcp9 gqnd70uR41W47qRPftLCX oPSIzMCUiIHZh tFbrfd0nrF2zIe5+PGNvb SN6kZR3yA6kCjCrGkB9KX bvQ935NqRljYLcImrzl0h no0dheHv2XoEe ZXEjwkBukBrzSTV9n4JtU a61Q69lFGauOXLuILHeTM EqMQLubIidxp5uxG3vXx2 +SX8sv2ajdj85 cX98aOD+DEPdTYG6nLpdP WovOJBfpH0zNDxlLsL7AS UyFkXxcS57zJWnTOxvRt2 ixDulzFfmKE1q AXMzcynge653IeVoj9tkI LBzcASzHIbrOBH5B62xf1 W4QVRnTQLvAYA2tIQ1lD3 hbGlnbjogbGVm dDsgdmVydGljYWwtYWxpZ 181GQUhnIxoVvMywNLrY3 whsuWLTJ7sCuognKQ+PHR pDXB2vWyrBCxq LLMdaC1sLVUvY5u9BxBsI wY7CTunS4WsfgJ2WGZcmX PnHBFglQIVsV0cjegxv1a vcjogIzAwMDAw FXq4EIc3PIZkjCgmWbOrO OW5UwM3BKC7nWYjjR0ecP vlkoeskZ1lRkd+RklOOjw vdGQ+PHRkIHN0 fWcdFDejMEGtoK4dXSQcY 3z6LjNpQzT3UGwkT0Inaa X6CIIemPFuWQJcrZNCwX7 ohyzhd1uarkpr ZbNnZQSxLOo3MPe1FXBnq UhpLtFxGTB0IqX7NRP8fG BnuR7geSkelrgczZ7nVpd +TVJOOjwvdGQ+ KAFiHNW5dRqjMZuvWGAjw N6xEVGzX5w2XyIdHfD5GA zdJ9TlgoU5KABtcNEpJMN txXZOtV1euowd j6sbozpoZwUnNCGkDJe4T Bw0YPBnmBkoQeQvBIB2Ue N0PFV1iOGisO7phZpxyyi xkG5eJwb+UGF5 UKW4QC03JO41C5HnLquiv GFibGU+PHRhYmxlIHdpZH RoPScxMDAlJyBzdHlsZT0 hQf7cWRAgOJXa bGxh (more content not included)... [facility] Consent for Treatmenton 03-0 Consent for Treatment [id number] #1.00CD:127 [facility] Consent for Treatment [id number]# 1.00CD:127 [facility] Consent for Treatment [id number]#1 .00CD:127 [facility] Consultation Noteon 03-07-20 23 Consultation Note Patient: ELISA LEUNG Age: [...] has, # 60 tab(s), Refills(s) 0, Pharmacy: [facility]/pharmacy #[id number], 166.8, cm, 10/11/21 14:46:00 EST, [...] Oral, Daily, Prophylaxis fluticasone 0.05 mg/inh Nasal Butner: 1 spray(s), Nasal, Daily, Refill(s) 0, Allergy [...] list: All Problems Palpitations / SNOMED CT 203772020 / Confirmed 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 Hypertension / SNOMED CT 0536457145 / Confirmed Anxiety / SNOMED CT 30698086 / Confirmed Lumbar disc disease / SNOMED CT 1534475069 / Confirmed Lumbar radiculopathy / SNOMED CT 133098782 / Confirmed Chronic gastritis / SNOMED CT 72599727 / Confirmed Migraines / SNOMED CT 80920629 / Confirmed Insomnia / SNOMED CT 600496588 / Confirmed Colon polyp / SNOMED CT 458151592 / Confirmed Chronic leg pain / SNOMED CT 272066534 / Confirmed Laxative abuse / SNOMED CT 727658044 / Confirmed Chronic cluster headache / SNOMED CT 386344523 / Confirmed Vitamin D deficiency / SNOMED CT 10442776 / Confirmed Hyperlipemia / SNOMED CT 74693223 / Confirmed Osteoporosis / SNOMED CT 451631811 / Confirmed 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 Resolved due to patient discharge. Resolved: Impaired skin integrity / SNOMED CT 10901216 Problem added on documentation of skin impairments. Resolved due to patient discharge. Resolved: FH: migraine headache / SNOMED CT 665223152 Resolved: FH: osteoporosis / SNOMED CT 4730239319 Objective Vital Signs 10/10/2022 13:14 EST Peripheral Pulse Rate 62 bpm Respiratory Rate 12 br/min LOW Systolic Blood Pressure 135 mmHg Diastolic Blood Pressure 68 mmHg Mean Arterial Pressure, Cuff 90 mmHg Gen (more content not included)... [facility] Comment on above: Result Comment: Elec tronically Signed By: Sophy Rush PA-C\.br\Date and Time Signed: 10/10/22 13:32 EST\.br\Electronically Co-Signed By: Derick Meza MD\.br\Date and Time Co-Signed: 10/17/22 18:24 EDT Office/Clinic Note-Nurseon 0 10-10-2022 Office/Clinic Note-Nurse [id number]#1 .00CD:127 [facility] Physician Orderon 10-10-2022 Physician Order [id number]# 1.00CD:127 [facility] XR Spine Cervical 2 or 3 [...] mGy = na DAP = na Normal [facility] Insurance Correspondence Off iceon 09-08-2022 Insurance Correspondence Office [id number]#2 .00CD:127 Normal [facility] INSULINon 08-28-2022 Insulin 53.4 uIU/mL Critically high 2.6-24.9 [facility] Comment on above: Performed By: #### C BC #### [facility] [address] [place] [address] Dr. Jeffry Daniels CBC AUTO DIFFon 08-26-2022 BASO # 0.1 103/ul Normal 0.0-0.1 [facility] Comment on above: Performed By: #### C BC #### [facility] [address] [place] [address] Dr. Jeffry Daniels Basophils/100 WBC (Bld) 0.9 % Normal 0.2-2.0 [facility] Comment on above: Performed By: #### C BC #### [facility] [address] [place] [address] Dr. Jeffry Daniels EO # 0.2 103/ul Normal 0.0-0.7 [facility] Comment on above: Performed By: #### C BC #### [facility] [address] [place] [address] Dr. Jeffry Daniels Eosinophils/100 WBC (Bld) 3.2 % Normal 0.9-7.0 [facility] Comment on above: Performed By: #### C BC #### [facility] [address] [place] [address] Dr. Jeffry Daniels Erythrocyte distribution width (RBC) [Ratio] 12.1 % Normal 11.0-15.0 [facility] Comment on above: Performed By: #### C BC #### [facility] [address] [place] [address] Dr. Jeffry Daniels Hematocrit (Bld) [Volume fraction] 37.0 % Normal 36.0-48.0 [facility] Comment on above: Performed By: #### C BC #### [facility] [address] [place] [address] Dr. Jeffry Daniels Hemoglobin (Bld) [Mass/Vol] 13.4 g/dL Normal 12.0-16.0 [facility] Comment on above: Performed By: #### C BC #### [facility] [address] [place] [address] Dr. Jeffry Daniels IG # 0.03 10e3/ul Normal 0.00-0.03 [facility] Comment on above: Performed By: #### C BC #### [facility] [address] [place] [address] Dr. Jeffry Daniels IG % 0.5 % Normal 0.0-0.5 [facility] Comment on above: Performed By: #### C BC #### [facility] [address] [place] [address] Dr. Jeffry Daniels LYMPH # 2.0 103/ul Normal 1.2-3.8 [facility] Comment on above: Performed By: #### C BC #### [facility] [address] [place] [address] Dr. Jeffry Daniels Lymphocytes/100 WBC (Bld) 35.4 % Normal 20.5-60.0 [facility] Comment on above: Performed By: #### C BC #### [facility] [address] [place] [address] Dr. Jeffry Daniels MANUAL DIFF REQ NO Normal [facility] Comment on above: Performed By: #### C BC #### [facility] [address] [place] [address] Dr. Jeffry Daniels MCH (RBC) [Entitic mass] 32.8 pg Normal 26.7-34.0 [facility] Comment on above: Performed By: #### C BC #### [facility] [address] [place] [address] Dr. Jeffry Daniels MCHC (RBC) [Mass/Vol] 36.2 g/dL Critically high 29.9-35.2 [facility] Comment on above: Performed By: #### C BC #### [facility] [address] [place] [address] Dr. Jeffry Daniels MCV (RBC) [Entitic vol] 90.5 fL Normal 81.0-99.0 [facility] Comment on above: Performed By: #### C BC #### [facility] [address] [place] [address] Dr. Jeffry Daniels MONO # 0.6 103/ul Normal 0.3-0.8 [facility] Comment on above: Performed By: #### C BC #### [facility] [address] [place] [address] Dr. Jeffry Daniels Monocytes/100 WBC (Bld) 10.4 % Normal 1.7-12.0 [facility] Comment on above: Performed By: #### C BC #### [facility] [address] [place] [address] Dr. eJffry Daniels NEUT # 2.8 103/ul Normal 1.4-6.5 [facility] Comment on above: Performed By: #### C BC #### [facility] [address] [place] [address] Dr. Jeffry Daniels Neutrophils/100 WBC (Bld) 49.6 % Normal 43.0-75.0 [facility] Comment on above: Performed By: #### C BC #### [facility] [address] [place] [address] Dr. Jeffry Daniels Platelet mean volume (Bld) [Entitic vol] 8.9 fL Critically low 9.5-13.5 [facility] Comment on above: Performed By: #### C BC #### [facility] [address] [place] [address] Dr. Jeffry Daniels PLT 343 103/ul Normal 150-450 [facility] Comment on above: Performed By: #### C BC #### [facility] [address] [place] [address] Dr. Jeffry Daniels RBC 4.09 106/ul Critically low 4.20-5.40 [facility] Comment on above: Performed By: #### C BC #### [facility] [address] [place] [address] Dr. Jeffry Daniels WBC 5.7 103/ul Normal 4.0-11.0 [facility] Comment on above: Performed By: #### C BC #### [facility] [address] [place] [address] Dr. Jeffry Daniels FREE THYROXINE INDEX T7on FTI 3.64 Normal 1.30-4.50 [facility] Comment on above: Performed By: #### C BC #### [facility] [address] [place] [address] Dr. Jeffry Daniels T3U 34.0 % Normal 30.0-39.0 [facility] Comment on above: Performed By: #### C BC #### [facility] [address] [place] [address] Dr. Jeffry Daniels T4 [Mass/Vol] 10.70 ug/dL Normal 4.80-13.90 [facility] Comment on above: Performed By: #### C BC #### [facility] [address] [place] [address] Dr. Jeffry Daniels GLYCOHEMOGLOBIN A1Con 2022 ADA RECOMMENDATION SEE BELOW Normal [facility] Comment on above: Result Comment: ADA RECOMMENDED LIMIT 4.0 - 6.0 ADA THERAPEUTIC TARGET < 7.0 ACTION SUGGESTED > 7.0 Performed By: #### A 1C #### [facility] [address] [place] [address] Dr. Jeffry Daniels Glucose [Mass/Vol] 120 mg/dL Normal [facility] Comment on above: Performed By: #### A 1C #### [facility] [address] [place] [address] Dr. Jeffry Daniels HbA1c (Bld) [Mass fraction] 5.8 % Normal 4.5-6.2 [facility] Comment on above: Performed By: #### A 1C #### [facility] [address] [place] [address] Dr. Jeffry Daniels IRONon 08-26-2022 Iron [Mass/Vol] 64.0 ug/dL Normal 50.0-170.0 [facility] Comment on above: Performed By: #### I SUMMER VITAD #### [facility] [address] [place] [address] Dr. Jeffry Daniels LIPID PROFILEon 08-26-2022 CHOL-HDL RATIO NORM SEE BELOW Normal [facility] Comment on above: Result Comment: 3.3 - 4.4 LOW RISK 4.4 - 7.1 AVERAGE RISK 7.1 - 11.0 MODERATE RISK >11.0 HIGH RISK Performed By: #### T SH, CMP, T7, LIPID #### [facility] [address] [place] [address] Dr. Jeffry Daniels Cholesterol [Mass/Vol] 267 mg/dL Critically high <=200 [facility] Comment on above: Performed By: #### T SH, CMP, T7, LIPID #### [facility] [address] [place] [address] Dr. Jeffry Daniels Cholesterol in HDL [Mass/Vol] 45 mg/dL Normal 40-60 [facility] Comment on above: Performed By: #### T SH, CMP, T7, LIPID #### [facility] [address] [place] [address] Dr. Jeffry Daniels Cholesterol in LDL [Mass/Vol] 178.8 mg/dL Normal [facility] Comment on above: Performed By: #### T SH, CMP, T7, LIPID #### [facility] [address] [address] [address] Jeffry Daniels Cholesterol.total/Cho lesterol in HDL [Mass ratio] 5.9 {ratio} Normal [facility] Comment on above: Performed By: #### T SH, CMP, T7, LIPID #### [facility] [address] [address] [address] Jeffry Daniels HDL NORMAL > or = 60 mg/dl - LO W CARDIOVASCULAR RISK <40 mg/dl - HIGH CARDIOVASCULAR RISK Normal [facility] Comment on above: Performed By: #### T SH, CMP, T7, LIPID #### [facility] [address] [address] [address] Jeffry Daniels LDL CALC NORMAL SEE BELOW Normal [facility] Comment on above: Result Comment: <100 mg/dl OPTIMAL 100 - 129 mg/dl NEAR OR ABOVE OPTIMAL 130 - 159 mg/dl BORDERLINE HIGH 160 - 189 mg/dl HIGH >190 mg/dl VERY HIGH Performed By: #### T SH, CMP, T7, LIPID #### [facility] [address] [address] [address] Jeffry Daniels Triglyceride [Mass/Vol] 216 mg/dL Critically high <=150 [facility] Comment on above: Performed By: #### T SH, CMP, T7, LIPID #### [facility] [address] [address] [address] Jeffry Daniels VLDL CALC 43.2 mg/dL Normal [facility] Comment on above: Performed By: #### T SH, CMP, T7, LIPID #### [facility] [address] [address] [address] Jeffry Daniels PROF 14(COMP METB)on 023 Albumin [Mass/Vol] 3.6 g/dL Normal 3.4-5.0 [facility] Comment on above: Performed By: #### C BC #### [facility] [address] [place] [address] Dr. Jeffry Daniels Albumin/Globulin [Mass ratio] 0.9 {ratio} Normal [facility] Comment on above: Performed By: #### C BC #### [facility] [address] [place] [address] Dr. Jeffry Daniels ALP [Catalytic activity/Vol] 58 U/L Normal 46-116 [facility] Comment on above: Performed By: #### C BC #### [facility] [address] [address] [address] Jeffry Daniels ALT [Catalytic activity/Vol] 41 U/L Normal 14-59 [facility] Comment on above: Performed By: #### C BC #### [facility] [address] [address] [address] Jeffry Daniels Anion gap [Moles/Vol] 14.5 mmol/L Normal [facility] Comment on above: Performed By: #### C BC #### [facility] [address] [place] [address] Dr. Jeffry Daniels AST [Catalytic activity/Vol] 27 U/L Normal 15-37 [facility] Comment on above: Performed By: #### C BC #### [facility] [address] [address] [address] Jeffry Daniels Bilirubin [Mass/Vol] 0.2 mg/dL Normal 0.2-1.0 [facility] Comment on above: Performed By: #### C BC #### [facility] [address] [address] [address] Jeffry Daniels Calcium [Mass/Vol] 9.2 mg/dL Normal 8.5-10.1 [facility] Comment on above: Performed By: #### C BC #### [facility] [address] [address] [address] Jeffry Daniels Chloride [Moles/Vol] 103 mmol/L Normal 98-107 [facility] Comment on above: Performed By: #### C BC #### [facility] [address] [address] [address] Jeffry Daniels CO2 [Moles/Vol] 24.8 mmol/L Normal 21.0-32.0 [facility] Comment on above: Performed By: #### C BC #### [facility] [address] [address] [address] Jeffry Daniels Creatinine [Mass/Vol] 0.76 mg/dL Normal 0.55-1.02 [facility] Comment on above: Performed By: #### C BC #### [facility] [address] [address] [address] Jeffry Daniels EGFR-AF SAMOAN >60 Normal >=60 [facility] Comment on above: Performed By: #### C BC #### [facility] [address] [address] [address] Jeffry Daniels EGFR-NON AF SAMOAN >60 Normal >=60 [facility] Comment on above: Performed By: #### C BC #### [facility] [address] [place] [address] Dr. Jeffry Daniels Globulin (S) [Mass/Vol] 3.8 g/dL Normal [facility] Comment on above: Performed By: #### C BC #### [facility] [address] [place] [address] Dr. Jeffry Daniels Glucose [Mass/Vol] 109 mg/dL Critically high 74-106 [facility] Comment on above: Performed By: #### C BC #### [facility] [address] [place] [address] Dr. Jeffry Daniels Potassium [Moles/Vol] 4.3 mmol/L Normal 3.5-5.1 [facility] Comment on above: Performed By: #### C BC #### [facility] [address] [place] [address] Dr. Jeffry Daniels Protein [Mass/Vol] 7.4 g/dL Normal 6.4-8.2 [facility] Comment on above: Performed By: #### C BC #### [facility] [address] [place] [address] Dr. Jeffry Daniels Sodium [Moles/Vol] 138 mmol/L Normal 136-145 [facility] Comment on above: Performed By: #### C BC #### [facility] [address] [place], [place] [id number] Dr. Jeffry Daniels Urea nitrogen [Mass/Vol] 22.0 mg/dL Critically high 7.0-18.0 [facility] Comment on above: Performed By: #### C BC #### [facility] [address] [place] [address] Dr. Jeffry Daniels Urea nitrogen/Creatinine [Mass ratio] 28.9 mg/mg Normal [facility] Comment on above: Performed By: #### C BC #### [facility] [address] [place] [address] Dr. Jeffry Daniels TSHon 08-26-2022 TSH 1.963 uIU/mL Normal 0.358-3.740 [facility] Comment on above: Performed By: #### C BC #### [facility] [address] [place] [address] Dr. Jeffry Daniels VITAMIN D 25 OHon 08-26-2022 VIT D 25-OH 44.6 ng/mL Normal [facility] Comment on above: Performed By: #### I SUMMER VITAD #### [facility] [address] [place] [address] Dr. Jeffry Daniels VIT D RANGES SEE BELOW Normal [facility] Comment on above: Result Comment: <20 ng/mL Vit D deficient 20 - <30 ng/mL Vit D insufficient 30 - 100 ng/mL Vit D sufficient >100 ng/mL Potential Toxicity Performed By: #### I SUMMER VITAD #### [facility] [address] [place] [address] Dr. Jeffry Daniels Coding Summary.on 08-25-2022 Coding Summary. CD:[id number] G h0bWw+PGhlYWQ+LR5YJBG zD31vnHEevK2CM3vTOX4I CINYGCZXVC6OLG0cvMP4N VzvP3UjedNt VpiymOJxDA52VAf4BAQ2f ZoqUVmldL9slCLdK2f1Rb CgQB23fQ48OAttYLXrVmL 3LjZpbjsgbWFy J2mnFeJwkWQnJje+PHRhY mxlIHdpZHRoPScxMDAlJy BvzCmeNW8eNi2zXYBqNNK vbGxhcHNlOiBj r3seMMLxJAebZW8svFybE 3ShfQX5OMSpk0n4At78rK I+FFSvCKI1dJarPQvxf30 0OmDgd4lpVFW4 eUCjWNqgWKX3P82lh9P5S QAnOKYvCBJ9uJF3nN7btA zgptcmW9YchBExDaD9MZB 3lFKdzY2gmNnw wtsgfT7xDvj+S58ZUG8DW KALJP9IMfx7J8GyUvldwN I+RX66SKOyZJ11fUSpwZI mx7zhvBk4OfLw NXBcZZL6dDhlHQcvc8InI QSfZ31hzPTqj6I1TEChcH hdqLAhDqNxqVW7tI9eOWy vyegev2ibvixx Ryclx9tcfq78gO65O25qL HyiFQTfDDA3XQGpJGJofL drux1qcI3hSb0+XYypc3g if5mokQw2KrAc UIUpnbHqvAzbXOM3p0ZlV f57B8GhyWehy4QsBql2br 64mFXlu0M3uTY5PPimAMP jxL8vFUhsWfM5 IBOwOrThtM16fGVtWFjuJ y3eyLpdgXcoNH7rXKTdjn srVOVeaH5fGMAqvQQmxQv mOQ4eMNJnqxka y289KwSsQYL0EEJemNGmB 2MsuP8oEvGgJHTeTERvG1 EaxGVnCAzpB935TQzfGrR 1XIBkrsSrY7Fn DLSyiTwnSwT3g5C3Aj9Mc 5BzpbcvIIW8IJiwSGNcBh HcAuRvGmD4F5QvCxg8HVI upBscMG8pQ2Ip TLZlmnpwanzlqQB4UFIsE CZyaT44aZFiTEhsOm5ku1 N1e155MRYgZFRynI34La6 udDogMTBwdCBU qM1xfxrgf8hjuoqyJgGdC KFlLMh8BFa5BEDzwYbcKp CsPQF1TbD0ACA1lIYgtG3 ieSlwwthzmY0w Oyc+Y73ylA6nVMR6IAB9e wvzHOTrerShXT37DU58V9 RyPjwvdGFibGU+PGRpdiB vqRplMZ7cYeYc n5xhq4MpAYupS1JyLTMaV QfxZob2FNHiLRG5mZQ5uN 2sYIXyKOnvj7V1rYC7W7J tcdWigz1rl8cm YOOwHXcrU09fwVUqi0S6N IAhsXE5HKNaaEoqGpFxeF 93Oyc+OQHfaArzs3DcGvk qb6tef9sczQr2 HmSoVPRhcpLzjKtvQZF2f 5JzVf47G63xDFccKGWbIN ZcDCDhAUVvmHnduc4jqL7 wIi8+PGNvbCB3 nVQ4vD5fKWVxEiE2CEnhP 459WwEtuJDvMwpdj2dax4 ftcAw8PiFcIYVugjCziUk gZRG0l0UmGd02 X59pIDomTDGkTHOpMUGaK JSifFnrmw2jrT4eGe9+PC 5xn9vanu37xU85lWB+PHR cQLG4oHmoYLwa YKAqfI1qQUpvLzB1ZKHmO wDyjA81qTDdIXbaCy8uoC gxpRasZW8fNNCopxtys99 4EkBjh3kiNEJk pTXhRRjnXWJ0J89sw6K0V URkBABoGJS6sHC0lE2qnO lnbjogbGVmdDsgdmVydGl zKZvtAFyfT869 IHRvcDsnPlBhdGllbnQgT qFfNAr9V0TcUbw7SFRirE cwSQ4syBLdYOohFz1gvJx dyDwuLU4yEENa vfhek256KvIag6pvEAXxd HFnJIyvQRB0E43so2I3DT CqBXCpMHD3qWO8jH7dgKj nbjogbGVmdDsg qpEznCacELleOIaeF902S HRvcDsnPkJpcnRoIERhdG I4HK97VP67eLKnk8D6gPB 5X7VwKUKfxcgp brrdjCP3XSCeQPLhvY57B u3srOhqRb6gODWuTRO9WY PrlMEbW4JpxG8gIzTyUIT iFVQqV8ZpvGSn MMzaO842UStjYmK7KZAxo eWwM7NcOETvvCxbUlH3s7 A9Hf9MT0Q5TC61MW14bNU wl3L0mDA4S0Ho BMLudfzxlndycZN4GNSnX LCehQ00Ta2shDhpXo3bGH MzPHM5UATuhQMwQ7GdsB5 yOiAjMDAwMDAw C7FrgAEnBCpxB833JYmjL xB6BFHejfYhN8UzIAPooC huEgV8n2Q8Lk4RCJv6KD0 4VP05zHSjn3V3 oNM4A6BoGLMemzgelxwme HF5BISpRMYgkM47Eq6ucH nhEn5hBXVbRHI1PGZmlFJ cE3UfdV4mJcDf SXFgULSrB5SphTCgIYviA 909DMudBpF0CNWxcaAcK9 QcXYPtcXctImY0z6K1Ga7 XPPFpZV95WOF1 qID2HR45YZ33O3BrPkwmz GFibGU+PHRhYmxlIHdpZH RoPScxMDAlJyBzdHlsZT0 tTx6fUXEyMNMo uGeywIFaIrPde0kwBAMpW QivPB1qeMiaW8HfzGZ1PD Vqj8r0Ud86N28aP7IzpTU +OFZrsGY8jDJ2 hW4jGeAjSkH9PFdeL645M zVahHZlAnzlq4urg1rneV b3UkB7UQKyhgLxzTogEIG 5b6JwRl74F62w IHdpZHRoPSIxNSUiIHZhb Aczvs9cvC0tAy8+PGNvbC S6xTK6pI8yLdZoHpC4AFa sJ616EoLioDMc Yjflf7nxo2juzIe5FnAwE LEdrnFfnJgsBDK9l5KaHi 42J7TxrLhjb0OuRfu8ub7 1uQVok3Y0dVO4 W4HqLJHruwaepGOzfOazE T0sLPTdmudsSQOdfY2oCY BtA0o2XgRwSyT1FAreU2Y saeO1VGDtrBGb JFxdWJS0D59fh2E3ZCEwU USqION0eNL1hD9mmIhszk ogbGVmdDsgdmVydGljYWw wXYyqD011HKPe mYbqMFSisA4iLUKlgIWwb HzgDQ2kVTGrzeugPlNLYA 6SUYCpIKoRSNVIBKA5E8P vPah7IRBblHwv IQ6usOUoDUdnRg1jiOwvd UfrSW3xQMJlwhwwGUKbeL 8aLCTdeLXmtDkoQI5qDET qlvmwd558WsXr UGW2YHMncJJnS1GyiK8sJ rGhQGMfSJIiB2TcqFAyNT wqG997TPauTaQ1NWHwwtV xU9RiWOEksNms WeP2d1M2Wd8lZI7rTG5rU JCkNI37JJ13pIAhe1K3sS S2N0HtXIFktbpkhizznMA 6NBBkLFJyfI12 fPGtFBvlZm9gk7M0v459P UFjCNNfhF48Og9urCjhAQ XakZVPpW0ieiptt4atmjo gIzAwMDAwMDt0 UGr8ZVAujBuhYgXmTEK6X sZ0FXF2cMRijQ6ueXwunh bpsQ4vFwh+NjAgWWVhcnM 5I4ClQas4GLTv cZzxPR9kmRWbLGkdQd5mk XjunAgrLV4wMIBmrjicTK EijO7tEXAmdZQpqFfiNS0 hVVZmtxvxp830 FuOzWTR8JVIpyTNpK2Ojo A4nUnHoANNxWJEhA9SalW NbXSqvD214LEttInA0HUU ogeHnE0FpSAAs fDdgTzD6c8E3Of7MBD2fd LU9M1HaOwv3SUHvxPlnSZ 2srBZrFNiwAj6siEwgoRk lCP4gITEptmjr PBXbhG2oKYTafOAamGovN C7qGDZtzkems893ItYoSX L7DCZmsDVaF0XjgZ1pLoH qZJCpPRPzS5Yf qOGvJXrvJ768YJzaOwA7E IZhnaShM6ZtMCHskPhvPx F7v4X3Ht9EXShmHX2ihfJ cNH7qwnP0U6Sh PjwvdHI+FB62KUMnPY50c MTkkMPlb5kbaBz2JhLiPX NzYPK6qYyhBZrds4PxKHX oI85psOTwk0C5 SYDcmUqeiBTnXgUfzEV9u L8mGZqvdavin1eyhtroHg zqi5ivet13qZ00W30hXTl pZHRoPSIzMCUi BGXbrEdnwj3ppQ8eXn8+P BThbIJ4oDB5hR3jAtMlTt X4XTjbE855AkIabKIaDoz xz1fuv4loaUd8 LdBlIUNgppLdqPpuBID3m 6YdMl05B76sCUotUEQvWA VpJUHiPJKivUlito0zjJ3 wIi8+VT1mr1mg dr82kB87jXY+VOLtNZB8g WdsMArlLUFuuK8zFEmgSw V6XRVrMuTcaA56oDVwNKq gBv4biQvopLvm CL0pQOHzekbqv237VzTay 8kqSRUpiIPcNDesIRW2Z2 7ul3O7VPBjNWJlIMV1wYS 2wS8keYvddwfc bGVmdDsgdmVydGljYWwtY TgzH075PZLyaHjdCrJcsQ KbK5isfnYKLT4vAjqwhBO +EFCgLBD9yCho ZNnpEKOmtW6mRWDaI2m8U hKzNlW3BRleC0ZbakP7VR AklXFwKNAxcHZXuJ7dcmj bm4cdmzqtOsZz RIIcNQw0WEs5AEIcnKbqP vDgUVC6PiJ0FIF0aLHpbF 7thFxstwwyqM9aWea+Rkl OOjwvdGQ+PHRk XMY5sYbxYGhaVJLhlB1oP HNgK5c0KtNbFiC6UNblF6 VjutR5UJLeyMTcSWCzlIM JgN6qtaqyt5af cnioFxHeVBXtAMx8HLf8O JIjlTvwSgXfBIN2OcC6OU V3dQTfmU7meVlitapsdR6 wOyc+TVJOOjwv dGQ+PDOxLFZ2vRxlBTzeY HArsK8hHPBiD4g9UgIuNn N5FFtzW3RyjjW2YVPrsAM aYIUdxWNAcW6m wxywe3lrmmmcImDwVCVkD Mj2BGt8GPFbpBhcHzIxNR W3PoK7FCL9pNFujX9wpCb wiawzyT5bHty+ CTR3YPY8EZ44ZA90C2LwV jwvdGFibGU+PHRhYmxlIH dpZHRoPScxMDAlJyBzdHl xGQ1uVz5gGJTa LWNv (more content not included)... Normal [facility] Insurance Correspondence Off iceon 08-24-2022 Insurance Correspondence Office [id number]# 1.00CD:127 [facility] Office/Clinic Note-Physician on 08-23-2022 Office/Clinic Note-Physician [id number]#1 .00CD:127 Normal [facility] Consent for Treatmenton 08-06 Consent for Treatment [id number]# 1.00CD:127 Normal [facility] Consultation Noteon 08-22-19 Consultation Note Patient: ELISA [...] has, # 60 tab(s), Refills(s) 0, Pharmacy: [facility]/pharmacy #[id number], 166.8, cm, 10/11/21 14:46:00 EST, [...] Oral, Daily, Prophylaxis fluticasone 0.05 mg/inh Nasal Butner: 1 spray(s), Nasal, Daily, Refill(s) 0, Allergy [...] Problems Abdominal pain, RLQ / SNOMED CT 409272848 / Confirmed Anxiety / SNOMED CT 41744966 / Confirmed 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 BMI 31.0-31.9,adult / SNOMED CT 684499883 / Confirmed Change in bowel habits / SNOMED CT 635065134 / Confirmed Chronic cluster headache / SNOMED CT 472378507 / Confirmed Chronic gastritis / SNOMED CT 60079593 / Confirmed Chronic leg pain / SNOMED CT 691688871 / Confirmed Colon polyp / SNOMED CT 787243358 / Confirmed Diabetes / SNOMED CT 827171254 / Confirmed FHx: melanoma / SNOMED CT 3602516641 / Confirmed H/O: osteoarthritis / SNOMED CT 214104231 / Confirmed Herpes dermatitis / SNOMED CT 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 / Confirmed History of Helicobacter pylori infection / SNOMED CT 0990444105 / Confirmed Hyperlipemia / SNOMED CT 69403229 / Confirmed Hypertension / SNOMED CT 6971302197 / Confirmed Insomnia / SNOMED CT 900098546 / Confirmed Irregular heartbeat / SNOMED CT 114267313 / Confirmed Laxative abuse / SNOMED CT 907586853 / Confirmed Lumbar disc disease / SNOMED CT 2257117074 / Confirmed Lumbar radiculopathy / SNOMED CT 184571180 / Confirmed Migraines / SNOMED CT 37356124 / Confirmed Osteoporosis / SNOMED CT 357684292 / Confirmed Palpitations / SNOMED CT 915804068 / Confirmed Rectal bleeding / SNOMED CT 084465610 / Confirmed Vitamin D deficiency / SNOMED CT 84570658 / Confirmed Objective Vital Signs 08/22/2022 13:06 [...] bilateral lo (more content not included)... Normal [facility] Comment on above: Result Comment: Elec tronically Signed By: Sumit MURILLO, Eddi Edwards\.br\Date and Time Signed: 08/22/22 13:33 EST Legal Correspondence Officeo n 08-22-2022 Legal Correspondence Office [id number]# 1.00CD:127 Normal [facility] Office/Clinic Note-Nurseon 0 08-22-2022 Office/Clinic Note-Nurse [id number]# 1.00CD:127 Normal [facility] Office/Clinic Note-Physician on 08-22-2022 Office/Clinic Note-Physician [id number]# 1.00CD:127 Normal [facility] Patient Correspondenceon Patient Correspondence [id number]# 1.00CD:127 Normal [facility] Patient Correspondence [id number]# 1.00CD:127 Normal [facility] Patient Correspondence [id number]. [id number]# 1.00CD:127 Normal [facility] Patient History Officeon Patient History Office [id number]# 1.00CD:127 Normal [facility] Coding Summary.on 08-04-2022 Coding Summary. CD:[id number] G h0bWw+PGhlYWQ+QI5MDES fW98dgWLxvL2RC0bQSD6E KAGMDXSRDZ4UTX4vvKX7P SycT0MgvyCi NdlvvGSuPT91MSy7JRP7s OsiUPhydY3ktQZxM0i4Rl QhUA27dM70RGajEHNpVaP 3LjZpbjsgbWFy T1hgOtYgeWWzPgy+PHRhY mxlIHdpZHRoPScxMDAlJy FxcYuwHC1lQr4lKJCcSLP vbGxhcHNlOiBj s7prYFCqDPfvKM9ciXkrA 9QmaFV6GSBgu3e5Ja41jY I+ZXWlLGE7xGujBBqaz41 8YnPso7xcGAU2 hKGwZCdpRCG2M90os7Z4R NQoCROaEXL3yIX4mG4teS mvmptmT9EqzUEcYnR1ISH 2lKWvgJ7okFya zmvvpS2oQst+K94PXB7JF YNNSN3AAep6P8QgVecufY I+NR79TFKoXX02kIOocFS xv8lceQf8HyMi BNPdBPO1cRdyVAyaw9GyZ IIpO54svWEmi5L1RVIlqI nlzNKyCiCglVQ3zP7cUSs ikxhue2hixdzx Rschs2hesw80dU84D95xE OiwMDPbUJM1SXSjXRDjvX rjdr0tuP7hGn1+GXsuv4v nb8uyoUk2YhWe XTSlwwUnrWsqXHY4l5ZoG l75Q9YutVbrv7KvWme7vf 62wPDmz4R6oGE8KRqpYXU neN1cRYknHaA6 ETCdWbTvjM65gUDxCLckP g7qfTddhJukQZ6dGWLzeb rzOPVudJ2wAQRfxKIpkAg xOH7nVDOibbmj o684QhXcHYB1PUOnqBMqX 2QanY8gUhQkMUIhKQWgA8 PvqZBgPUteY573JSytDqC 5ZBByybHwU6Fn JNEvqKonOtP5k5W1Sw6Dp 4FagvfdOBE5DXsaDRUtEl QyIiIsKyR7Y3DaJjx0MXE ivMctIR5zS3Xb YSKkjhvlcpredSF6YBVkK QMgaM58zVMgHDoaPj7iq6 L5z947RJHlICHnjH57Xt8 udDogMTBwdCBU zW4xbmfrp3xmgryhJpCwI EPaBGl1BHg8BRLjcBdvGd EwZZK2CbV6ARO8yAGqcB6 bfEslormhrC6m Oyc+T01ayO9uRKT0YLO6g vofDQXbeqAbOG46RU73O8 RyPjwvdGFibGU+PGRpdiB tyZvdWI0tSyAp p4sqk7LzIXtyA6DnUJYvI WczKft0WIGhZCS8qHW0bI 0eEHErCGwuo2G7lOS6M5V ursFnyj2eo7wj GDFcMIweJ75lbGUlz2O6E ZLybAK4KDVtaDbrDvTppH 93Oyc+POEniRbqb9KvHlu rx4sut8fonTq9 TeFbDLRpmqSluFkqWMW9p 6ZlBr86P47cJYcsWQAqCR TtIMUxKQRemRtkpp3deW8 wIi8+PGNvbCB3 uGI6zT7zBGOmQoF6DBqrU 586JbPqmWRqAveso0fyf0 cekDh3PsZuKOHdhzNafFp gSEO5z0RuJt11 C72oCQhfXIYpCZFmENUlA XCriYyduw4goE0nHj0+PC 4si3qslq30kX27uVK+PHR eYGL6zAgiBXde XGOioY2hYAnrKvX2UCBpP hEbyR70hLYkIDhxWp6zvX ahmOmdYV2dHZEauthdi42 4ScJdk9nzXELu aWEgEGcoXRJ2B91nh8R5Z GUyBWPxCPO8bHI3aY2orS lnbjogbGVmdDsgdmVydGl jMUnlDYwoE445 IHRvcDsnPlBhdGllbnQgT qUmKIr0X7LlEdy7JLRpaP hvGT2afVKmGGcaOx9tbRc lwVmoWJ1cFRIx angma139KuPyu8ckFWAkq JMvQTfwIOH1Z17gl3D8MS TkBBVmSEI3kOW8pT5iaUy nbjogbGVmdDsg rmGtzFoqZDcsDZgpZ466T HRvcDsnPkJpcnRoIERhdG M2PS64RN95mCGek7G6dEU 1K8UjLQSeedca rdnogHL5BUDpZYSdhT96R u7hdGtpVw1uBZDkIXD2EI YbaDGeH0DnhX4eIeUpWWU aEXNfQ0EwcQMq CDcuZ577YYpkMuY7RDXpz bRyF6KxLIWxiQaxTmJ0x7 W0No1QX1R6JH44NA82vEN rs8O3fVZ2W7Ay BFSwkjugewpdsOE5UXUkB GXrbY91Id5xcGviLq7lAO TwWOV4GDTzqPBwY7FmvG6 yOiAjMDAwMDAw R6FxeVTkPDcgA771EYwjT iX2QSXnnnScT5SoCNQzzD wpGmU3j9M1Kp9EEKi0KG1 9OK65mBDle9A4 cOS8N7AcXYOdolbwumtpw XF5JBWmMCXvwC13Cv6xoW ylHy3hTSOiMGV2YUAzxST jZ9UqiZ6oDhZn BMXlRNZlD6RgyBTnUIyeT 525TVrwZfX3HZJvxbLtR3 WdYSZpxGwkEwM6x1R9Yv9 ERVEwKD90WSD0 yPG7ZP15JL90X4IuRrtbc GFibGU+PHRhYmxlIHdpZH RoPScxMDAlJyBzdHlsZT0 lSt3bEBTtPJUf sVwnaZUyZcLpm8ucCCMwP SlmKP4lxAkuD2CyvQV7BR Fxr0p3Wh99A80qE9NpwPT +TSQlsIS2sKQ5 dR8vYcJwOnC1GXxjL025J yUihOOmRypyo8vdt0fhiN f2EdR3UJXjorLmaNvxHHU 3m7PaNq81B76x IHdpZHRoPSIxNSUiIHZhb Mbhvt3toD2cNc8+PGNvbC V3mYN2qN6lEtXpYlA5SMr lY262ErVeiLJn Qgqzj9mgx1uroMk9CjNrM YZoyvQybDknWOY9q2LzTy 39D3PrdZokq1DbCgo4ud2 4xQKnl0O0gPF9 I3LePLWhdruqjPAxaSroY G7gBJWnptvlTOTljG0fAO LwU0w0BlPbPaS6VQtpC2F otdA0CYYvuTZp KGcgUQE5M08pd1T7AZHfU CEtCAS4oDV9yF4rfNorlz ogbGVmdDsgdmVydGljYWw dSBbcO968IVKa mCzyNDOkwW8uEIPeqWMpa QugPT9kTRSbqixkJaTOBF 2QKGDmCTkDEPRTXJQ3H3K qYyy2YEDqgCgg UW8uvFQvADfdIj8ewDyfb LwfAS0eZQMfyhiwKCUxnH 6vMJIsrEEknCrqNY4bQAM vdxvpr023PqZa KXM0RFObgSBaH4ErjK6oY kHcQTJxBOPwO2DcmFMcLG pnQ861NNbwJbD5OGZcruI jS7QpFCGarGfm PuO6v8I0Ha4tFR1bKU8lL ZScRX45XP77aASqy7L7rL H3P4UbQMUxmsuzhurgaBR 6GADwKCEunL83 vXJfOBmwKx9gi1Z2f878P CNcAPNwmC01Hs9fgQjnDH EynRXAnE7gxgpau1qqnfm gIzAwMDAwMDt0 OIn9PJMvzZcrNwJqPVD1B uM2ALF1eOAkoD7hwTrxaq ujfO6qLvy+NjAgWWVhcnM 0G7EpFqa7OBLl zYoiHU5pvDPxGPwpAw2hu RazrCzqFD1wMPBcmeeyKE AbdS0gOXDroFPvmMahVU3 xGKHvjudxq021 InImHPZ5QUMjeNBpF4Hrs Q8wEiUuFPHbDWMiP7QxkT OcBDlgZ682NEwgUmA1SYZ asqIpH7BjVTAu cDryGuP5u7D4Aq7JEF4sg XD0O5FxYpa7TFPuxSsgSL 0dxYEiGZgbHx8beIxcbRi cUP0cFFFswjht RGCrgX9sXACtkAEbwVofR K5vWMNourofc880KrAoUQ J7JINcfOYzH7RemL3dFkP eDHWjGPUaU9Cm yCStXVlxM811MVnlVfO1Z FUgaqPeQ9BzOEMqaZccYu N1i4M2Ng7KPBafYE6kxdR iZT3hhdP4Y9Uc PjwvdHI+MR95UWJfJT27g LUzpTNor4bzgUl4VyOkHE NzGXA3kKeuHXknk4CnCZP hK17ngFCsz2B0 FMWetAlvtZLyZnZqlTD5x D7lMLexyvqsa7vzlngtBd gvi6tekl21eX75U72tIHa pZHRoPSIzMCUi XSQsjAhcak1ljP3oPl6+P DQqzRC7eHJ4zL8iEgYbBi S4MPceP438PoIywQBnNju qu7wxi7dtuUp9 DnKwHBAwbvDtnFjdJDX0m 6IcKw81A77hYAfyRKJjQH RoORFcRKAwrCnzji5luQ3 wIi8+SM6fe9gd kg00cG10kHE+RZEqTBJ2d NofDJrvWQCubR0eQDqqYs F6LQVpOrWccG11pTUkKAc aQi8mcXfqdVik DM0yLQRhvufpq014MqSob 1afCIPpjYUkDRqfCBN8V5 9pm8D2UMEsTTKiZUE9cYC 8kE7bfAlrltxq bGVmdDsgdmVydGljYWwtY DbgN685SHVybDqrLxDuyR GpN4irjgWOQR0iLqznkXC +JHAwGAN3hCft ABmpCBJhpG5mWMHbV8k0P pBxUkB1GIawP2LlvlK0TC CqlDKyLKLwlFNQgA4pmjj ao2vhyxklDqOj LLDqHPk2TWa8UPBgzBzjD zVpYHD3SfP9QZW4yMZtgB 1csTukbvuuaP2tYgk+Rkl OOjwvdGQ+PHRk ZCX9oOjgFVafWIBzhZ5eT NSxI5g1MkFxGzS8PCvlZ7 DiwfJ1QSLzlNAfFYNyjUE IfR0ommpwh1bt xyewZqVrCPEvDMy8JXs8Z VGqiPvjIkWwSSS2RrG2IX O3jFTulN6yvRehvfmimW6 wOyc+TVJOOjwv dGQ+FFYqOOI0fAuzWKkeS HNxlV8aBLUtA0r3OrDmTo U9UWfoO6XnchT7KXHzcJI eBVOvtKTQmB5u vdfwq7gefcgbCkSlKCWyF Eh9GFd8HEAjkDmoPzFwTK K3SrN6GPQ7kGFajB7jdQb lcbdsyR0dHit+ ZZD9BDK3GN32CW09C5QcZ jwvdGFibGU+PHRhYmxlIH dpZHRoPScxMDAlJyBzdHl pNQ8eJj4cPDZs LWNv (more content not included)... Normal [facility] Capillary Glucose POCon 07-07 Glucose [Mass/Vol] 103 mg/dL High 55-99 [facility] Comment on above: Performed By: #### 2 [id number] ####[facility] [address] [place] [address] Consent for Procedure/Surger yon 08-01-2022 Consent for Procedure/Surgery [id number]# 1.00CD:127 Normal [facility] Consent for Treatmenton 07-07 Consent for Treatment [id number]#1 .00CD:127 Normal [facility] Discharge Instructionson Discharge Instructions [id number]# 1.00CD:127 Normal [facility] IntraOperative Documentson 1 10-02-2021 IntraOperative Documents [id number]# 1.00CD:127 Normal [facility] Main OR Intraoperative Recor don 08-01-2022 Main OR Intraoperative Record IntraOp Document Type FTPM Summary Primary Physician: Eddi Arana MD Finalized Date/Time: 08/01/22 15:35:58 Pt. Name: ELISEO ELISA Amita Delacruz/Sex: 1960 Female Med Rec #: [id number] Physician: Eddi Arana MD Financial #: [id number] Pt. Type: P Room/Bed: / Admit/Disch: 08/01/22 [...] Performed Surgeon - Primary Scrub - Primary Range Technician - Primary Time In 08/01/22 11:25:00 08/01/22 11:25:00 08/01/22 11:25:00 Time Out 08/01/22 11:31:00 08/01/22 11:31:00 08/01/22 11:31:00 Procedure LUMBAR EPIDURAL STEROID LUMBAR EPIDURAL STEROID LUMBAR EPIDURAL STEROID INJECTION(.) INJECTION(.) INJECTION(.) Comments Luzma-student Last Modified By: Ria Martinez RN 08/01/22 Ria Martinez RN 08/01/22 Ria Martinez RN 08/01/22 15:34:03 15:34:03 15:34:03 Entry 4 Case Attendee Shashi Ambrocio Role Performed Hobbing Machine Operator Time In 08/01/22 11:25:00 Time Out [...] L5/S1 LES Primary Procedure Yes Primary Surgeon Eddi Arana MD Start 08/01/22 11:28:00 Stop 08/01/22 11:30:00 Anesthesia [...] and tissue Entry 1 Skin Integrity Intact, [place], Warm, and Skin Abnormality No Dry Outcomes [...] from signs (more content not included)... Normal [facility] Main OR Preoperative Recordo n 08-01-2022 Main OR Preoperative Record Holding Area Document Type FTPM Summary Primary Physician: Eddi Arana MD Finalized Date/Time: 08/01/22 10:43:25 Pt. Name: ELISA LEUNG D.O.B./Sex: 1960 Female Med Rec #: [id number] Physician: Eddi Arana MD Financial #: [id number] Pt. Type: P Room/Bed: / Admit/Disch: 08/01/22 [...] By: Coco Mendez RN 08/01/22 10:43 Normal [facility] Operative Reporton 2 Operative Report Patient: ELISA [...] Arterial Pressure, Monitered 106 mmHg . Normal [facility] Comment on above: Result Comment: Elec tronically Signed By: Sumit MURILLO, Eddi Edwards\.br\Date and Time Signed: 08/01/22 11:33 EST Insurance Correspondence Off iceon 07-24-2022 Insurance Correspondence Office [id number]#2 .00CD:127 Normal [facility] Patient Correspondenceon Patient Correspondence [id number]#1. 00CD:127 Normal [facility] Coding Summary.on 07-14-2022 Coding Summary. CD:[id number] G h0bWw+PGhlYWQ+UZ8SVHL cF63acEUhwE5QB8bHVX3E LMVZPSGSJU8LKG1uyRH4K InlH0RajzZi BbqbmQKqAN19DAt1GQD2y NaqQAkvvX7grWGnS1x3Te YfEY94jR47BZunIXIcJuB 3LjZpbjsgbWFy P2gjWzWzsSXxZge+PHRhY mxlIHdpZHRoPScxMDAlJy SlvNnfCS2eUa4qBTTrUUK vbGxhcHNlOiBj m8jdHVJuWUxvMD3kqRceS 3MunDM3DFJkn8q2Qm21zN I+CNJmNQH0aMixLOcqv80 3AcObm5niNBT1 rVHlONkuOIX7S34tv5P0P SFkWRHuRZE3pXB8sH0dhO mzxrojL4OeuYOwHeT1ECB 4iRSryL8xmRyu wfslmG6pJhs+F40YRP9VZ WBLAU5EKvu7P0SuYtdacI I+XN39MXEsLY44bWHvkDE ig8xvbUq2VfAj UIThWFB6cDdsGBpoe5LkQ LVtS61hsQHen1U9SLUloL dmwNBlAoAssUQ4qN6pJDz jumkeg9jxvqez Jnkbd7lywh83kI96E43fL RzrXUJfYKB4SHEtMTCqkY sdda3plZ4wEp4+FImpj3k dc5kjpHc3ArGx JMTcdjManKdiXAI8r5AbX a00F8DmvGhms6WoQfv0hz 20lSMax5Z8jQG1TPcbSEL tsO8dVKexPgM1 SUCjFiLwxT80fVFnZIikU p9htYnbsZaiAI0sDZEyja awEUWpkB3aVWXcdHIyhSk pDS6cPNZzptma o973ZsQpDNK1PIPyyGOsF 6DnwU3wAxPiHIAqGIGeM1 KqqYFdWRceH806MCdkVyO 5ZIAeonTcW6Qn IAVqnIgqEaE5h2D4En9Lu 2IcygfvQHB4POceIRAiSs G0GuHnRrS8M6LpWus5IVT abQhbZX0kS8Zj JKMvwfyzudberVO2PXTjL ODakE71fPSkZByaCi3jp4 I2w389TVQsETRbmD71Sm9 udDogMTBwdCBU lV5wiqbwv1nbdmgaBtQxF PDfNNp8FUo4RLWfpQviLm QhAAF1LgR4SAK6lQHvvC1 sxFfuohbdiK4m Oyc+F43apW3zMUO8OOO4i ejjOUQqnnAnWN92IZ48E4 RyPjwvdGFibGU+PGRpdiB zmVwaLT7iTtPz k8xtm7RuTIjqQ7BpHAZhS JfnRgz3QDAyWUY5aTA8xC 3hAKUqGApsb8K7eLQ3U5G rqkGqtm5wg4dw WGIzLLavO65kcEAtm7S1Q VXmwJC0UALkkNqnSkMdeG 93Oyc+DEGjpFyil3HkPoa ql0wfw8ccdEs4 AkGxRXLljyXccHnyVDK8y 4VoFw25N47iRIouBIPjRJ BvJNUaRLTwmNbfjy0ccD6 wIi8+PGNvbCB3 pVY8yK3oZDItVgK1TFcpO 994YfHbpGUbUzdri1aqj2 albDk3JpLfIMTvsmQjwEg hCUN3i3OjNg55 S10jMYmcHPYoLGRqOGZeX QEboBpvfd1gtI2wMv1+PC 2do1jhbo17hE91uMJ+PHR lJCQ2bXnmZFwx PJWaeW2jJOujHnT6ZIJvP qIatK55lGNyOZayVq3maI ruaLbgBC9kMGTilxwvz04 4DqNva6hoQOBw wRHvWAbkGAA4G72fp1C0W VIuRRKfJBG9eCW7fV5nbG lnbjogbGVmdDsgdmVydGl oYRtjPWatU843 IHRvcDsnPlBhdGllbnQgT bOvOUq0W2OvWdn5ESKabA vqDT2olLXgMFdqVr8pxVb ghLiiIC2oBOAo awhhg779NpXmf5shTKNii XMkTWtoXOW4G97gh7D3GW RoLKEuEGB1oJJ4oW3tbAc nbjogbGVmdDsg vhNxuDqhQBfvGRqdS260M HRvcDsnPkJpcnRoIERhdG E8YD32QP50fBDdr7V5sMS 2A6OsVWVgofwr tlapcFD9ZOAxAWCygA61Y v1ctTkwHk5sPEPrSEK8UY AwdUBiU3FaeD3uDcAmWZH qPLWkB2WyyYOs QCctA500AYbyWkQ1HHNen kQhP2JdDKQaiHjlWaN7q5 F7Zi8FI0E1AM96PF31oPZ ye1G0sJF2I8Rx OSDptlngqrlawQN6CFNfI YVpzW01Uw7aaUmdJh7mGQ VkVHF5GVIdpMYxP7VllM0 yOiAjMDAwMDAw T5XmiHYyHJweY493TMvjZ kU3XRXpbxDaQ4GqSSRflU rvMxN3d1O3Nl8LUMn1SR4 9IR23tDWpj6K8 wNT6R3RlNJPtirogvttdl PV1XPIgOYQmtE73Xu7usO noGx8sDAIwJTS8IIScoMF zJ8XdkT7oHwXz FLTgAJGxB2LlzEMrHCcwH 400MIrjQuA5LKMdoeCcZ4 QeXWMdvSasCzW3y5Z9Pa7 GMTQaNL54BWU2 mSX4KV06LV77B9PrKqibw GFibGU+PHRhYmxlIHdpZH RoPScxMDAlJyBzdHlsZT0 qOz2aGXFvJKOj lFvqbROoJgObn6qrMXAbF IhuXO7qzCepH0OckSK8QN Uni7i2Hc18A48fC6LbiQW +BIKyoSA0jRX6 aD6aVdXjByT2XLgxV476O hNzcSHgTyyto5cpq1dtwE j6FoN6BCMqnfVtvSurCDS 0s7LpXj17H50e IHdpZHRoPSIxNSUiIHZhb Vxzca3nrM5rWd4+PGNvbC J0nOL6cE3pKnXmRjS4DWg kO213KkBnmZAi Uotiw2qsq4gktUp4CsOxX JWmzmZvhBdoVBO8y8YzDd 96W1JrkQcyq8CtUlg1gy4 4wESii2M0tIJ7 U2JfJRJkdzzeqPZiwEygW R5dINExtbydPMGqvE3vVZ PtO4t5NzJdWzR4OJsjG1Z jxpT8XTYqiSQj KCieEWQ5Z61ln4R6UGNpY GXyCHN3xQK6eZ0zfYwdli ogbGVmdDsgdmVydGljYWw mOSowL701WELy oYodIAOemF8gHWXgeFUdi GgfQZ8nDPKxydxrLxPODO 0KFKPwBZlXRXJPYJC5M5C oLky8LBZfeNpx FV9rzXAzYJrwHm6kiUquc MlfFF0bPILzjpfpSQMtsN 1uCFExtOVlfNbxDY3iRLM uuzkik969ZyPp JIH0CKThhOPfG6XikB0rF pPkZIWsAFYaT4SxiEMvOC csE000UQbvUeL2KULmahT cZ2EzSDLfiTjb SgJ1z2J1Ja7xQS9jFY4zK WPpTY99WA12bOHkw5B7nS I5M3EuKKXaywuyeksnqBH 0GVHhMBJenZ47 kJRqRRjmXt9aj9A9n807V RIwHJTqbG87Ar6biVoxED DwmKEEwC1pimnoj1bktfy gIzAwMDAwMDt0 XSq5RGSbqLcxMeYfVHU8E iJ7IRJ4dOHunC7qsLchwj ywaG3kCul+NjAgWWVhcnM 7W3PaHnj4EQLa dQqqQN0uqFPkRXjfEl0ur IdjwRhkCM5uFOZpkuseOW UatY9zIZDtkIFrdSubGT0 fRKVpwyqqn363 WdIcYUP2PKEciYEwH3Wbo L6gGeUkQKUtQNYiP0MheO BxCAddW949HNpjEpO0OPF xygXxL1VsFFRe vLoqZjX3q9E7Ux2QDB5bw AU9D1GgEkn9FPQwnBipMY 8uaNTtJMblYn0zeRwdbTq lXE9mDMUvpelm UMWvlL8yUPWbaRBdyUjuX T7dIAVogzenr565MwNhQD C7NOHbyZNuB8LxwO8dVkJ nTOZdKZDsE1Cq zPArCLigK495XQcmEnK6E HEzswAoV7WpNLJibNecCg T0r7K4Om1UZUerIY5lkqE uDM3ovrU2C1Ew PjwvdHI+PZ39CQEeSO17a QUzgOCov3ofcSy3IfJeTN CeFAS8vKzpKVdcw9GpPDG sD45xlGDxu2K7 NXMavEccuBFqGnNjrTK2y W2hYIefhhqzf3lghoojUv dpo2gzvy09lH52B67rCYx pZHRoPSIzMCUi WZCdyKijov8kdN6zAu7+P BRhpZH9fXN8jZ7uBpLgAk P1UYtgM494UrHjzXUyQot mf6kji9dmrVk3 PkOsPCZuyiYzuRwoZEA4y 5CrUw94N22dXRbhFYXvXT CjNTFjMDByuQddif6xpO3 wIi8+DI9qf6jd ew70pJ47fAT+SFGtLWR9m QcsFXfkLMMbsA7wIHvmIc M1GJXaDxNcyO28uAIpQNl pXw1zaXxmsYki SI7rYDQlyelon852BgVpx 3hhCKOhxICkLEhsGLX0M6 9mt1N9GRUmQWCaLBV0zDD 2nA5tbTzvbzkb bGVmdDsgdmVydGljYWwtY NyaR985HNCssMklUpHojU IuB9cjerYKTW3oBntmjQN +GFUaFOC8wJyx FUmpVXUmxA7sTKSxA5b8Y zEgZyI9UXyaD1GwqyV6CR AmlVRxFTGudXHHwD4laqu oi1auoyobOjWp ZZXyWTv3UOd8QFFmjYfmZ tYbORX4LyJ5TDR1lSEegZ 7nnBsrpyyhuM6pCcd+Rkl OOjwvdGQ+PHRk ALG3dAloGOarXSIoaE6bI UXyJ0a2MlQuTuJ3MUmkB4 BcbiX5UJXjqFEhKALjhEW VuD8bvphke5in enznFpRrBMAvZTp8EVn5H CHneDleJuRqKKY5QtB6HU C7pWFcrE0nrXqbspjhmB0 wOyc+TVJOOjwv dGQ+DQKdWXE4yBcfUIftH STrbX7bDKPtR7q2MnXxMb G4KDwxH5XqwjY4CDBlnOP vPNDdiCKFwR7y tdtyq5abknclYvCdMUQtD Iq4UJy8BARbbWepJyNdPE G8PsS8GZS5xBKgpO1jzSy cirktmD9vZyq+ WQR3NFV4ZN29WN89A6YmU jwvdGFibGU+PHRhYmxlIH dpZHRoPScxMDAlJyBzdHl dSR6sNq2lHKVl LWNv (more content not included)... Normal [facility] Consent for Treatmenton Consent for Treatment 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 / Confirmed BMI 31.0-31.9,adult / SNOMED CT 122312012 / Confirmed Change in bowel habits / SNOMED CT 722141531 / Confirmed Chronic cluster headache / SNOMED CT 714951246 / Confirmed Chronic gastritis / SNOMED CT 21640282 / Confirmed Chronic leg pain / SNOMED CT 435087337 / Confirmed Colon polyp / SNOMED CT 413711785 / Confirmed Diabetes / SNOMED CT 203458179 / Confirmed FHx: melanoma / SNOMED CT 3224800338 / Confirmed H/O: osteoarthritis / SNOMED CT 049860916 / Confirmed Herpes dermatitis / SNOMED CT 99969884 / Confirmed History of Helicobacter pylori infection / SNOMED CT 1802353682 / Confirmed Hyperlipemia / SNOMED CT 57417136 / Confirmed Hypertension / SNOMED CT 3473991014 / Confirmed Insomnia / SNOMED CT 902577420 / Confirmed Irregular heartbeat / SNOMED CT 522717005 / Confirmed Laxative abuse / SNOMED CT 860872968 / Confirmed Lumbar disc disease / SNOMED CT 3683866967 / Confirmed Lumbar radiculopathy / SNOMED CT 964237809 / Confirmed Migraines / SNOMED CT 78237156 / Confirmed Osteoporosis / SNOMED CT 331793951 / Confirmed Palpitations / SNOMED CT 756789257 / Confirmed Rectal bleeding / SNOMED CT 148983898 / Confirmed Vitamin D deficiency / SNOMED CT 35797479 / Confirmed Objective Vital Signs 07/11/2022 13:57 [...] negative bilaterally. (more content not included)... Normal [facility] Comment on above: Result Comment: Elec tronically Signed By: Sumit MURILLO, Eddi Edwards\.br\Date and Time Signed: 07/11/22 14:43 EST HIPAA Forms Officeon 022 HIPAA Forms Office [id number]# 1.00CD:127 [facility] Legal Correspondence Officeo n 07-11-2022 Legal Correspondence Office [id number]# 1.00CD:127 [facility] Legal Correspondence Office [id number]# 1.00CD:127 Normal [facility] Office/Clinic Note-Physician on 07-11-2022 Office/Clinic Note-Physician [id number]# 1.00CD:127 Normal [facility] Patient Correspondenceon Patient Correspondence [id number]# 1.00CD:127 Normal [facility] Patient Correspondence [id number]# 1.00CD:127 Normal [facility] Patient Correspondence [id number]# 1.00CD:127 Normal [facility] Patient Correspondence [id number]# 1.00CD:127 Normal [facility] Patient Correspondence [id number]# 1.00CD:127 [facility] Patient History Officeon Patient History Office [id number]# 1.00CD:127 [facility] Patient History Office [id number]# 1.00CD:127 [facility] PAP ACOG PANEL 2: 30 to 65on 07-06-2022 . . [facility] Comment on above: Result Comment: Perf ormed at: WB Performed By: #### C BC #### [facility] [address] [place] [address] Dr. Jeffry Daniels Age Gdln ACOG Testing 30-65 [facility] Comment on above: Performed By: #### C BC #### [facility] [address] [place] [address] Dr. Jeffry Daniels DIAGNOSIS: Comment [facility] Comment on above: Result Comment: NEGA TIVE FOR INTRAEPITHELIAL LESION OR MALIGNANCY. Performed at: WB Performed By: #### C BC #### [facility] [address] [address] [address] Jeffry Daniels HPV Aptima Negative Normal Negative [facility] Comment on above: Result Comment: This nucleic acid amplification test detects fourteen high-risk HPV types (16,18,31,33,35,39,45,51,52,56,58,59,66,68) without differentiation. Performed at: =G Performed By: #### C BC #### [facility] [address] [address] [address] Jeffry Daniels HPV Genotype Reflex Comment Normal [facility] Comment on above: Result Comment: Crit eria not met, HPV Genotype not performed. Performed at: WB Performed By: #### C BC #### [facility] [address] [address] [address] Jeffry Daniels Methodology: Comment Normal [facility] Comment on above: Result Comment: This liquid based ThinPrep(R) pap test was screened with the use of an image guided system. Performed at: WB Performed By: #### C BC #### [facility] [address] [address] [address] Jeffry Daniels Note: Comment Normal [facility] Comment on above: Result Comment: The [...] WB Performed By: #### C BC #### [facility] [address] [address] [address] Jeffry Daniels Performed by: Comment Normal [facility] Comment on above: Result Comment: Andra Alvarez, Manager Transition (ASCP) Performed at: WB Performed By: #### C BC #### [facility] [address] [address] [address] Jeffry Daniels Specimen adequacy: Comment Normal [facility] Comment on above: Result Comment: Sati sfactory for evaluation. No endocervical cells are present. This is consistent with a history of hysterectomy. Performed at: WB Performed By: #### C BC #### [facility] [address] [address] [address] Jeffry Daniels MG MAMM SCREEN 3D DECLAN CADon 06-27-2022 MG MAMM SCREEN 3D DECLAN CAD Patient: ELISA LEUNG Exam Date: 06/27/2022 : 1960 Gender:F Ordering : DR EMI FRIEDMAN . Admission #: [id number] Family : DR YASMINE DAMON . Order #: [id number] CLICK HERE TO VIEW EXAM RADIOLOGY REPORT [...] Treatments None Family Cancers None LOCATION: [facility] BREAST COMPOSITION: Almost entirely fatty. FINDINGS: DIAGNOSTIC [...] Tompkins M.D. on 06/28/2022 at 12:18 Normal [facility] Coding Summary.on 06-26-2022 Coding Summary. CD:[id number] G h0bWw+PGhlYWQ+TU3TAUB fB30wrEZcaK4HH4ePAR9O HZJXBRRUEF3DRV4zcLS6Z UrwT1TquzTf HrelyRHvUD54SEi3DCS5g HffURvttD6svROzE2k1Xn DnCH42xJ55WVskILOpHyJ 3LjZpbjsgbWFy Y5gcOtWsgBMeLvl+PHRhY mxlIHdpZHRoPScxMDAlJy KwiTlsGN3tLa5gCBMxUBW vbGxhcHNlOiBj t5fsETUaIYomCW3pcEqqM 3LlpLQ5WAXdq9b6Wz50iW I+KRAcVXM4qGnsBMvsw28 6HkDxn7nbNPB4 mYXbJZhvMTH9K25xy0N8R AQkUDXqKCG4fZX6yE9alC ktyzydY3ZyoMBcIbB5DNZ 3hQJjlA4grDsg lvuutC4oVjl+C27URZ0BR PFJDG2XSza2S2AiWnweaB I+VV82LFTxBK65cAUnzQZ ld1lbyWt7YaUb DTApNRT4fEhqCZgpx8CfT LKgM41rbBShz6J6PWPjgZ ldeBEhSkLgcAW3fW0wVIl isyghx3vapmcb Rycec9wklk76cW90E81pI DkwKQNpVPO9AIVqVXBjcP juln5ipX7kXr8+KSzlo3a bo4lmqJg7OeJr HIFicrGdzDvwANI9g7KtN p51Y1TcmLyxc6XcVnh1pn 26eCTmd7T2pFP3CAjbEUW vtF5tTCgaBwR1 EBQeNaNstW86hBSlINnbR h8ncIpjtYoeBG0vFQSito jxAAIoxV7bOAUmpSOuoEg rQH6fEVVfgmza q572BwFjPBT0GCPkkVNmM 6PzyT7gKfBqUXRaNKIiQ3 LrvTBiQKwkP761LOnaLgK 7FXJzzbStR7Ic KDGoeXgdXlV5z0O0Uk6Mw 3XsgidpPUA2UUiaXCAoDp DlNsUjCnN8M5XpFgz2STG lkEojUS6tC0My OJVmlysyzztkaXM7ZISnH TAncF29rRChDWqiKa4ma2 U2p899BZPsNHFuvT53Yw4 udDogMTBwdCBU yZ0fooziz8rnmrhrBcSlL KVwTTo9WVf7GRYkmQyvNt LjVLD8RgI8EBM7pBKjxM1 zyBkgoqmoqT9b Oyc+W95gwC9xVMW7XSA5k praNUMrkgCnIC68ZV87V0 RyPjwvdGFibGU+PGRpdiB zqBzlUO9fBxKm c6iau6OhICgbU4FoNWYjO NmeVhm8BAJtPEM3oPH3nF 1tNJVaXNnfv5W7iJO3D3E tcbCxcl2qz1mz ZRObONxnS27xfRWtm1F8V WRjpTH6FULlvXjjXkOhqV 93Oyc+NHGodMvmf6UrLyl kq4awe8taqQf4 IqBhWAXvlwXsrZtbKDG3l 8TmWo72Q12uAHqyJVGgXH UtLEPtSHRciLviqd5imF7 wIi8+PGNvbCB3 gUS0vX3zIYDeEdC5GCfwT 567JmRvfOBbLftxr4kfy3 dooCe9TaXwCLSbqbVyjVa vRXZ9v6DsMq78 P46wVZmjHKYcTOLpNROhI MTfcZbrfv9ziN3qBv7+PC 4kc9ryof92uH58uBW+PHR aWKO4wQwoKInd XTNjtL1uMFrrWvH3PRIoX wEvvX98bZWqPDxwAv6aoX erdQucMA0iMGSqbghwz70 6ZpOkx7zqCXBb rRFqFCpbPBU1C46jx6B3E GCjKJHeVTR2mTB8kJ9pgR lnbjogbGVmdDsgdmVydGl lREjxZBiiS953 IHRvcDsnPlBhdGllbnQgT wNpEAb6T1UzAmg2TDOorL rwVY4hrUGyAWqhZm0ceQd qxRadAV2uMEEy vouqh060MbDkf7oqJPHnp BOiYOcxJGZ7Y26ow5Z4IG DdJQEbHJH3dKG1bT3mbXi nbjogbGVmdDsg ejTzyDvqPPanZLfwB050Q HRvcDsnPkJpcnRoIERhdG Z1DH76VH67iUUte3O3cDO 3J4IvCQYgotcr qqowzFJ6TCMcBXVfsI82J r5haDohOf4oWGRxSNW6BN VewPPdD8TxzY1kOjEfSOF wFGYcV8AriVYd DXvtR049ITmnGfJ6QIInf eMnL4HbLAWozRhaVwM2t6 X6Ru0MY3F7VH21SA64cSP xy6T8gXG9Z3Uc WWPnijuvfutdsJR7WFTbM CIqfJ36Tc3oyMfaEt5eKM QtYIA6CTIulQVeM6MtmV5 yOiAjMDAwMDAw K0TyzUBiEHzkA256VVraG uD4JPTmzsHsP8TxWGOguB reEhG3x9S2Sw1XPFy0XV8 1CL65qSNom7O8 zRX8Z7PrUIHtwtzejcoim OA7XMJmGVOzoS53Iy9vlT atFj8dIKCiOHA8UAAgfAU vE7EqkF4dSkXj UXIcEFTwN7SdmOUdHIcfS 239PMwsXxO9ZNAlmeCzO2 ExBLHptEgmTvX0r7T9Ry9 WBMFzCF10TBD3 xYY8SK20GU55P0OtVrqlg GFibGU+PHRhYmxlIHdpZH RoPScxMDAlJyBzdHlsZT0 gCx7vHQEtAMHp dGijrXXoPcTbc1hcQMNxU FibVU6mxMtzE2BiqBL8AF Qbk1c3Qo90X04cN3TogFA +YTKocJS5fHH0 mD7jYzLwKmX1XIcnY849Q yQbnONqHtstt2nst1giyJ r4EoW8UEJayaHrlLfbXGJ 9t1MxTr96B30s IHdpZHRoPSIxNSUiIHZhb Eqytn7rwN5eWi4+PGNvbC S8lKR8aV9iLmZzXpI6WQl pI472WyAksFNt Ckztu6gbd3asvPi3YaCzM NDltaPesMxhPQK9h2PtLa 05L7LjuKxkp8TsPdj0lr3 8oZUbc8Q9gLY7 C2FcAQLtkiqmkRPqpUkyB L2gXEHoqrjzNMYixN0dDW HqO0n9TeCwPtN3WSrtL3X emgG0NBZzqCIh EUxuWIZ9N62ec0K6TWPsF IWqGZW5aMZ5xJ4nbTzsdf ogbGVmdDsgdmVydGljYWw uUKaiB278XYDq bFpoXZTppB0dDMDjuTMdp RocBQ7tZCEtappoPyRRRP 5QDAYiRUtDBBLFJEH5N2Y kOey5BFSxhIdi FS3fbQVeQGzhVj2ziYklx FzjRY7iHJUvugweLIQdwL 4dNADkoAWilUkbFX4eGXG cjcvlb968FaUj RHG7SDShxCOxN3SufI8jW iOwORZcVUImP0IpnBFrBW pkP620DAcvPcJ8ICCntqN aH8MlYFFjuBcq MaC0t3Z9Yq8gPT7gGU9fG ONrCX86DZ30vJHur0B6bA N8J4VoSKWvnkfinapewKU 0IVSiMCLchM32 xGHeBSauZp1ai6J4h040H PGeIPMjlX30Mv5ybDwzLG VvuLGYfP6bywfrb5xsrbn gIzAwMDAwMDt0 AQr1SFJhgVwmCxWvPMR9N hC6TWO0aRSwnH9jwYupjh ipcK7oCbj+NjAgWWVhcnM 6K6ShMlg3HECa cUyvWU8wnZOgQUglGq4lr TpydBwuHI5tSLVzccxnTI NusN6wLTCozIAhxBzgHR6 nNAIozeqym311 UhBvZQU7UKOhsFHhZ1Soc E4iCvXcQZLcYYFaC7LteR BlICrjI995VNmiVmL3UPM ugtNvA5GnHKGg kPvtYkT2h7I7Kc1ETP8lw RL0C6WaWgc0SVCrrBjcKM 6wbWNwOPlnAb5jcOkorCt iOR3pJCVyrgbb GLZkqG5vWBKeaYRqdZtuE Y5bFPZeuxivl770XuAzFI C9DDXejTTjP6DesJ0dWzP rTYMjGVSsK4Ab kXGcDBiiR602FGhjCqO0G RWbhiJzX8XdGGOboZgsCs N8y0Y5Bt0RkPTaTFIyPO2 6DV04YS85B3Wh PjwvdGFibGU+PHRhYmxlI HdpZHRoPScxMDAlJyBzdH pkSC9xIw3wTCYqTCTxjDe itGRzXwKhx4fy ZECyQAsaRO5fuUoyB4Zgo UL7JHFvh0t6Ld52X29eY7 JvdXA+XYNckQH2uKL3aT8 kJjWpLqU7EEud L552OxEdmGKaAwfku9dbj 8swlPk8JzCmKBUokyHmvK alGPH0d2BuBw56Y90uUCs pZHRoPSIyMCUi ISNtrDtnzy3ixY9oYd6+P DAnzOB6xMK5vS9cHeEuXw N6TFrsD833UjLazJOwLki uZ82bK4ArzQK+ CDEbVny6DNPpfXvhEW7jg YYbIEttZk5rMER4ScKiBe WhHRznN3BsJEPftfskttk gzAP0COElSTVc hH06Yt5baYidDw4yGFVkE NY2PFOwpXWkF7FdnO4gDw VdMWMuLRJlE1TxeNOdVLs nI931KNexDbT5 PBQzvlWaD4JvMJLnrUilK xU4b4Z5Pb5SpYpcaFVhVI 9nFxCuFGo9M0NmKgo5KJC iqIboNV2hgTXi BUnhVm7mgVantFpvKH9gD MYpewczp200OfXud8jcBV NnbDUeXNkfZBK3D26xs0K 8NSUiWSRwWBO3 qKO7sG1nlCgrwnmqiDZec DsgdmVydGljYWwtYWxpZ2 92EDMzyJfmGfHONje1O7V uYgc5FGVlwQno EY6ryZNuENrjQh8xcXweo RnnVW1yFAUiuqzzr418Eh Xtf9cqQWFwtVHrMHtvQGE 2R52te6J1VZHw LSWrZTA7wSA8cM8uqUsro jogbGVmdDsgdmVydGljYW ttFIkpG041BYRjkZybWk6 ALyt1N3FzNan4 BYKqwVapPC2wjLRpMGbpC g1alBqpqEdzAL3qDXCbdy xyl417JeJxh1bfUEPnuSE gDWqqFQI8S48q l2J8EZXaMXIrGCL0xGY9p H9enBeruvdsfSDkpXugpb MbhZplNJgwQOaaI206RYR vcDsnPlBheWVy OjwvdGQ+TN91lg01R5RxY xnpFvv2HGUoHOC1qLD1jQ 6dCZCuGZqdf1Z2qEH8S1Q lmxNoma8qg8lo YXBz (more content not included)... Normal [facility] Coding Summary.on 06-25-2022 Coding Summary. CD:[id number] G h0bWw+PGhlYWQ+CJ3YREP pK69hnPRyaG7VS6qHQH6J QCKEMXHXLC2ZYK6npMJ3G HkgX0VkcnYj VmloaNSxPC36RQj9MSE8k BfuQMurmW2zxJQqS8b7Gl TzRA46jG70KEiqMHEqCvP 3LjZpbjsgbWFy U8uyMsOlaNOmZab+PHRhY mxlIHdpZHRoPScxMDAlJy DazVmgLM5wHv0uYKDuGAP vbGxhcHNlOiBj p2hdLZPmRFuqBA5nlDbuF 7KtoEN4HHLwy3s1Kh70kG I+ZDAoOXC6dVduVKuly09 4PnAxg7alCMY8 rMAlDPjiKWP1K84zy6U1F VVsEGQjWSA2iXU8sD6moA cvkkjcQ9BvjIWeKrR5DLX 5xLStkV6okUoi fqfzlV0hAbi+C52CYJ7AJ QYBFF1WCaw8Z6AtAbwsmW I+DQ91RDLoWV76rFErsVL vo8shgFf7OhMk ECJiRKT0kQpgTEytn0NdT VCiD97bgUScz8K1NMRslK tvsQPcYoJvzIG5uC5tJKf pqjvmf2hurjpw Vbjbg8xmnd23yV25S87iA YaiFNUqHPD6EAYnTWPhqP arvj8wgH9uQm8+ISjrt4r of9kztNr5NmTu ZTDnmhNmpUloHMI3q4GrH d99Y8OxrIjkl0PeQqb9ng 93qKAsa5V2oKQ2TRfuVNB rqQ2pJOsdGtC9 MTXoLbGzwW26wSTyJUqbB a6mgGyozZxvIT6pUCGinh znBARloB9wZBVopJLngBp lER4sZQIoxabc f978LoSpTEN3EKEgaBWkM 4IscU6oEmIuHOPaBWOvQ0 OhyAJcWHjxF090FXauMbY 8ZPWghwFbA0Sv SPVpxHmoLsZ5c7I0Sy1Cx 2KmcczoDZU5VAyrQIFvCf OsFuVvNrG5R2JrDox8XNK faNbrVD6lF8Rk LHYpottvokyrqUR1CKTlH OKkxT51nGNoFYldFd6my5 V6n343QBKnUVVinY85Tk8 udDogMTBwdCBU vI9dqkqgx4bwwajcWdZrO PHeVKg7UHb9QJXjjOpmIq CyXIF8SwP5JDT8sFFeoK9 wgLpkejitzX7n Oyc+M58yeM2xLVP3FXY7q exuSDLqcfRcGN18AC61Q0 RyPjwvdGFibGU+PGRpdiB fmFsvST8yGhUx o0nir9QyUMumS9WnNALuV PeoVab4HYUvYNM1dQV5vS 8uIQYaZZbjp3L1wWS5L7P osaUjwe0gw2qp BRRoTQhdR82mkCMsp8M3S NGszAP6CDTdeLkaQkLxvX 93Oyc+ZRVxaXezr8DaEmq gs6zco3bdhTd1 VyYySQDhbsOfwQkwFVT1q 4SwVo83M03iPWgtZCLnRN RsPCXvAVEhaCqyjy4cvO0 wIi8+PGNvbCB3 kXI1hJ9jPWEjSvN7POadR 423QhMeaMBlKxtmm6awc2 swpVx8VzGpGKQvbvWarMl vMVG7x9HsAt14 T10wNAfjUHOhECGyHUPcG YOyyXraaj8ijB4iUj9+PC 2tm7wbuj30wY62vDN+PHR gWFD1xTmqWRup QALprA1uIVtcAmV2EDLtY yYocQ99kUBxXVzrRs7biG uiqOvbJO2cDFDvknwzv28 8WrVzn5lvNLFx aOCrVFhcAJT9X04wj3B2O YTaNFYkFTZ1mCU5aK3ghO lnbjogbGVmdDsgdmVydGl fUVvoAKxyW842 IHRvcDsnPlBhdGllbnQgT wZmLQe1V5XcSpw4GDKcaW gtEL3fhLZjHXnjFr6elDy yfDycME5mUWUw ebatc404FxRsh9zbRKHly LRuAWwxEGC5A08jk2M3FI DeGJQsCZP0cFS6hK3jtCu nbjogbGVmdDsg ayKtuEejAGqyVBbhK150A HRvcDsnPkJpcnRoIERhdG D7PB22EC45xUOvd6N2tVU 4C6BcQHGzfojq nqplsYQ4SMBqZQNhsS22A n6akFbtTi7hJRVwAYT7VW LnuQLhI8YfdT0xOxSwVSQ eAQRzV5HewHUv ABfkO377EQteJeN8SECsn mKvQ5HyFAAikRmaWvT0k4 E5Yc1RN9K0EE79NL55tZC wh4A4vFN4S4Ke RWPberyvxblmtWK5DRTjU OXpmH16Yh6dmOxrUo3yXS GkDGG8DLHfnCTmM4DdbR8 yOiAjMDAwMDAw U6ZvbFIqCKbmS034IRldI hV8KCSdpuOcP4NoPBDmyL puArG1i6R9Du4PAZe1MI2 5LO85rZIty5R0 uEC4E2OjEHIjihkhzlxoh DR6OZYeTHVasH81Ze5rsR ihDh6yKIJgPBV8UNYadHY jJ2MuzF0rSqDh ACIiKWLyJ6RljDQmRGztK 920KIsaGyI8TULuboAtN3 KhBMSnbFrpFgG2q9K9Rb2 LOKBwWV59OTN3 nSA0OA29DD30N2YhWdeqe GFibGU+PHRhYmxlIHdpZH RoPScxMDAlJyBzdHlsZT0 uHh1qSTJfKZGn zKomsDGwXpNvo2yvARNdE EwyVK5myNkzU2TeeJB2ZI Wra6d0Il71C29hJ6YnzHF +SEWufYZ1qQJ4 fF7sJfKdLnO0QIdiB362P xYxhFIvJeatn2yra7dcmM s5DfZ7OXEgbeIhuAjyMQO 7r8MtSl25J05l IHdpZHRoPSIxNSUiIHZhb Rdntq3wzO9nPm1+PGNvbC O4wFR5iW7iVlTmOiZ8SDo cA999TcAbxEFm Rjppt6gbh3kpoWo6FmVyW TCfncWnaJvuIHR8q0HjBs 78T5FvwTjsc6VcUlc9za1 1xQSpt6A9rMS6 H3PzKHEbegszhDJiyThbB A9qYGGxjqbfYFUyfH5qSF RaM2w6TuLrYrK2BVpmP1Q ckpT6OMKplDRy BGvqWSG9J82hn7U8IXFwJ AGfZSY9fHY0iL5ndKmdnn ogbGVmdDsgdmVydGljYWw oOBeyV424DMDa mWuiUMZsgV1qXXWmyPUqd LqrAY5mEXQoshztZgQFJH 6YZWXaIJiQAJPMXWH7L3B eHxp5YQJxpKni UB0ilVItXKckJe3vvRjcl QysEK2oJUNfvyltWXCwsE 9vZRFlbKZycWfrPU1nTJZ ntxanx857WoCt JGU1SKFdpUMqV7BwuS5wL oQgDQUjUZJhE8GdtCPhYZ egM641ZSaiVzT5ZVNgraH wS8ZuDCJkeGzg EjX7e9F2Vj9nRS5qPR5jO SPaPQ37KN84rWOsp3N2oF Q6T9YuRLWahitabyfrjJP 8KEXoEZDowZ54 kMWdLYioDb6yi9K2g944T KAcKZWsoE21Ry8ggQahLB NegQNCuG3nelejf3mlidp gIzAwMDAwMDt0 FKu4SKPmdOhjAsCdYYD3F iH1HPD0sAGtkM9xpWnsgp ivrH8pJld+NjAgWWVhcnM 3W8VkRla7ERRg eBjpWH2ddCEvZZoqRq5jo UjneOpgQM6rRTGsyoxgNE LufS2gPLNxoGTjzZhcTU9 kHFPeclhvg027 FzMpMQP4JVZxaXTnQ7Rxk O0nHaXiUNPsNSKgI9SwzD DiEEpeZ563YQywKrW9PSP nmdMyT6YaOCMd jMdkKeU9n0E7Up7TXG5jb WN8L4GlFcy9BECwzNhyJB 6tfBRhKGuzJg1ndVyucSb zAE1aFEErzsgn NNXzlW6gIKUzcABwtXwyF C2yGPPqtddmk449SsErFP O2TDGyvKEjV6ZsgS2hZgI fAWOlSNHcP6Wi hHCdJTrtH167NKdhDyE5X DPcyyXjT3JnLXMclIwuYo F7g4M2Dr6NyUYoLSJgME4 9CE75FJ07Q9Ii PjwvdGFibGU+PHRhYmxlI HdpZHRoPScxMDAlJyBzdH gfXT7vFk8dFQNqTCQsgIn wvJQaMwErb3dd QAJdWKefAP0gpKnbW3Zpj NF2XYAab7g4Di81F58fZ5 JvdXA+GBXczRZ1yQZ0yM8 kWqDtPpD2SZpb P001NoOobWOrYtvnx4iwf 4efkPs3LzJrEXPlonRmvV ifIVG7v1DhIx43F62aALk pZHRoPSIyMCUi GCQgkNkqku4inP0mMn4+P FDxxOG7oPR1qD6vVnFpXh O2KGjwW783GlZsqKHsOsc lR46lA4LucXA+ PPYqSwh3ZBAlvPflYX2rx JMuRGiaPs8eFRL9QqVuFl BlOLgtG6QtWHDuuymyftg djKK0PBWpKJPp dR14Pz7ypPsqBn5nNPAtG KJ7DSSfrHWwS9BrlD7qAf WbISQuHXPgV1BzhDEsKYe xD890KAgwTiI6 LSOuoyTpJ7HnZYJrqPkeU pC6a7K7Im9JlXhueNVtFP 5iViLpQIj9U3FvCtd8ESW siIcbVV5dbJWy RVajBs9neWzkfBbkGE0iM JIxgrrfp496AiQjz8ueSI LilJPbBSefAQQ5D28jz4R 9YXHgCVUdTZM8 cGZ9yG1wnJjlxadlqALys DsgdmVydGljYWwtYWxpZ2 01HMMnsXxeJlKMDog4C0R kUjv0DYTfnKtm GX5klPFpKZvmLg3dsXwva KkdZI6bHOPinumke246Jw Ivs2vlVJLcaHAcBEeiCXD 3C05qc3V7CJIg QNYuXQU1aTE4lE0dcSbal jogbGVmdDsgdmVydGljYW uhSHvzA814YKYzxSolEs3 NVin5E6BqVdt0 PHGlwOpgQS5sbXOmAQhpT s8wmOxbcXucZR3kUWQfuq byz617GfFal7bpDTProXL bSJrtQBI5Y03c n3T0DTYtDRZpMOZ5nRF0x N1ivFddsoxxeVAjiAjvnb FxdLioMDriWBniA161ODG vcDsnPlBheWVy OjwvdGQ+TT29oy69B7CsU memNah4ZRDuUIA6uOD5gV 1cJBFnZAijv0E5vBT9F8T gngCsub7dy2rq YXBz (more content not included)... Normal [facility] Consent for Treatmenton 06-06 Consent for Treatment [id number] 211 [id number] .00CD:127 Normal [facility] Consent for Treatment [id number]# 1.00CD:127 Normal [facility] Consultation Noteon 06-20-20 Consultation Note Patient: ELISA [...] has, # 60 tab(s), Refills(s) 0, Pharmacy: [facility]/pharmacy #[id number], 166.8, cm, 10/11/21 14:46:00 EST, [...] Oral, Daily, Prophylaxis fluticasone 0.05 mg/inh Nasal Butner: 1 spray(s), Nasal, Daily, Refill(s) 0, Allergy [...] list: All Problems Palpitations / SNOMED CT 454880701 / Confirmed 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 Hypertension / SNOMED CT 1200400611 / Confirmed Anxiety / SNOMED CT 31637507 / Confirmed Lumbar disc disease / SNOMED CT 3328152433 / Confirmed Lumbar radiculopathy / SNOMED CT 153539201 / Confirmed Chronic gastritis / SNOMED CT 30523360 / Confirmed Migraines / SNOMED CT 63625972 / Confirmed Insomnia / SNOMED CT 996337947 / Confirmed Colon polyp / SNOMED CT 673317278 / Confirmed Chronic leg pain / SNOMED CT 987381748 / Confirmed Laxative abuse / SNOMED CT 172780515 / Confirmed Chronic cluster headache / SNOMED CT 078575914 / Confirmed Vitamin D deficiency / SNOMED CT 96313064 / Confirmed Hyperlipemia / SNOMED CT 23238424 / Confirmed Osteoporosis / SNOMED CT 459413869 / Confirmed 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 Resolved due to patient discharge. Resolved: Impaired skin integrity / SNOMED CT 28332081 Problem added on documentation of skin impairments. Resolved due to patient discharge. Resolved: FH: migraine headache / SNOMED CT 437122710 Resolved: FH: osteoporosis / SNOMED CT 9749354815 Objective Vital Signs 06/20/2022 12:30 EST Peripheral Pulse Rate 57 bpm LOW Respiratory Rate 12 br/min LOW Systolic Blood Pressure 133 mmHg Diastolic Blood Pressure 75 mmHg Mean Art (more content not included)... Normal [facility] Comment on above: Result Comment: Elec tronically Signed By: Adri GILL, Sophy\.br\Date and Time Signed: 06/20/22 12:52 EST\.br\Electronically Co-Signed By: Derick Meza MD\.br\Date and Time Co-Signed: 06/27/22 07:46 EST Office/Clinic Note-Physician on 06-20-2022 Office/Clinic Note-Physician [id number]#1 .00CD:127 [facility] Physician Orderon 06-20-2022 Physician Order [id number]#1 .00CD:127 [facility] Physician Order [id number]#1 .00CD:127 [facility] Physician Order [id number]#1. 00CD:127 [facility] XR Spine Cervical 4 or 5 [...] Coburn M.D. Transcribed by: CAITY Technologist: COLT [facility] Coding Summary.on 05-09-2022 Coding Summary. CD:[id number]:[id number] G h0bWw+PGhlYWQ+YV0XFRA rQ40tpZDymC4WK6sYBB9S RVTXSKCITU9AEG1xxEQ3M UejU9ViwdJc HtjbwHGpMG95UJo8HFN1h SbiLXnypF6jqPCyU1c7Yv MbSY14uV05OHcpTFRcOzI 3LjZpbjsgbWFy G6dzHtVvuMDxOtf+PHRhY mxlIHdpZHRoPScxMDAlJy QkhWpkMC0dEb5nIBJzUCM vbGxhcHNlOiBj t6llMTTjUYbbPB2zgIatZ 5GmdFX7EOUmr7m6Lu99dJ I+ADVdHRJ7wDviQJwke13 7UdXup3acUJX7 bUWbYLhwETD4B31ln8C2V GJzWQRpZRP3dVP5hJ3qcJ mogdhhC2VldFHlAsY0YCG 0qEKeoJ4odIqi utgfcO9jLmx+C41TNP2EQ DODAS6ECrd2P3QdLfphnS I+MC19LRQcJQ64ySTcfNG cm8faxUr0GzAy PRZhWEW8pQyqMXzaj9JsK ZDlH17oyVClr6S4FGRixA uutRRdPuEtgAL4eL3fFYs fzjzva6hamewo Wvylt2grtu90cK08G02mD DcgJIEtMFB8NPEfMHLcgN ldeu5cyZ6qWa5+SCnas2p cq7tpyAb0RiPp VYHzwcSwsGesZOT9q5UdC c53P5RqsMmnt3ThFyc7oh 20vRJvo3D5pPD9CJbsTVT knR3xBVkiNpT8 WLKcMsZfuV93sQWrGNgjG a8eoCymiTrkOI8tIXVqkv klYUMtwY8tRITyvKMubEg oSO6hJTLyypao w768BhBgUIK9CBXxzTKlV 7AazZ5zVcBzHDEkZZRhK2 KzwITjMVibQ807PWgeBfQ 6KHMwbpXnV3Nw RQMsdTlhPyB2p1D1Ip9Oq 2OqzilsMPY3BAykCZGhUd U1IcNjKsT2X0QbCnq8NXQ bpWetGV7vV5We XYNeshmdwkeudZM7EYPeT TMmbH80zOJiSYekWu9pm8 E5z014PKEfBTLwgX93Re2 udDogMTBwdCBU fV4lzuqeo6kwyfqeDlXvH RGpAKm0NTs2BDGoeTyqKx SbRZA6RkM0KDZ3kIAcyK4 iaNsuxrrtsH0f Oyc+Q59tsT3zKOF7NBJ3w ybcPNCxmuLbMM62VY46U7 RyPjwvdGFibGU+PGRpdiB pxJhoBN8qOpXe g0tlt3LhUFzlC4JbBHOaP EhoElm2LLJkCUC6lTJ6aK 8kUIMiCQuqx7Y9gOS3W4C kjhOech2af7ua LGNnAXjhM63odKIii6A1Y FXlmUJ6WIJpfXikNiMqcW 93Oyc+KBIfoFhhn4AiLat xz6ytt5bvcId3 YbMvHMSawrYyeBfnULA0b 5DiSi72E11qZEwuHALrPA FcBHQlOFBsoZjkjc0krK5 wIi8+PGNvbCB3 zWW2nN6yFZPpXsC5DDdpU 725VuWwpKKzNarfa6usq5 gwjVu8VbQjURQlltAomGe qWEM3j8ErFx95 R29nQUcnIBTlOZPrVJTbT NYykRkeyf3szP0tDv1+PC 8og5qpby82wC23yDG+PHR tWAL0nJihKHql XPQuvD6xSPamFaH5SCWaH dWhmI78aUUoDFseCg8zcG ckxTaoWS4kLUPnhwxye70 3HoNwc4upOWAl iEPiGMszPKS2C34mj9Y9D LYhUQPaJEW9sCS7eL1ejY lnbjogbGVmdDsgdmVydGl fAFleZIphG747 IHRvcDsnPlBhdGllbnQgT aAsMXd5M7ZoIqx0KNHwgO zpGN4rnPBpIXsgHg4lsFr qzYgdVV6yHTTs utpdr443RcEdj8buBLRdh UUhKTepPUA4L77gw1C2IY WwBWMaRAC7bNW6wG0luHd nbjogbGVmdDsg tySvgKyxVBcbZSdhB187U HRvcDsnPkJpcnRoIERhdG U2UH66XH20hBJlu7H2tEK 1L3LbMNAnacmk mnpkpIH4CFUgQEIxfB63F i7moElyZc8gEEZhICR1CT PjlKPuJ2MwdC0lIoNvYYO jRSDaB9OnhSPb TFwfI181VQwgWiO9LWTcu hIfE9LwJOJfePrrPpL6j1 P3Nf6ET2T3WL35YZ81dTN ri3Y5hDI2Y0Yh ANKzanzznjublTZ7NZXlS DAoiQ31Ec2zyZyzLp0mQF DvJTR0LFZmaGJdI3YaqH0 yOiAjMDAwMDAw W8JpiXXgAJgeZ962RJabZ uG2HQLxjaXbF1ZbQCPseX qgXbW9b6L1Hq6BDUv0JV1 5NZ13tYQpb8H1 fSP7W4XzECObtajfonkaz VA6EYRlYXLbiN14Oz6dxY vqKt3xLXUdASW1SLGoqMX yD8WzrO7gHbMu DRJwSHMpM8CjiUPjIXveF 083PQdoSqP5ZASbcyJvK5 HbFINnsYkmObJ7y8L5Ul9 BSVIvBW09JKB7 lFQ7DO18SM82K5NfNjjfd GFibGU+PHRhYmxlIHdpZH RoPScxMDAlJyBzdHlsZT0 oWo4xTCFoEYRn wCoopNFjDcZfv8taXTMuO PgnWJ6irEalL6RlhUT1CD Kuo2z8Yu64Y65oH8FduZG +EWBzsUH3wFQ8 nS7mOgUdVaX5XUwcF638T aEuaLTuIyvgq2hga8tczP y8IyM1QVAzdqOedSkkJTE 9t6GqNl73R69f IHdpZHRoPSIxNSUiIHZhb Sblmn3zxP5cNc1+PGNvbC T2hIN4nV6pScYoFnT6AFu fE895DzJrdZPm Pbdhz9ift4sprBh7PmVjB RPhagHssAylXPA0j4IoRj 74U5NdfVmnl4HwOko1gz5 2eFChv1R3cDG5 U4PtTLTdupcgnXKdlSelX J6iAVMyamefQRZflV0cLA TdI4o1MmYjMsT8AXmwQ3F zbzL1ABToiSLe TErxAMP1U66ym1Z9AKMwS JDaGLM1iKS8cF7eaFbyro ogbGVmdDsgdmVydGljYWw qHOyvE047MFAn rVrmDSEeyA6uEYVtiMUtl SxvCO3lUYIedzfwBkJUQH 9DIKBwEJjITZPKKNQ8F2P aTge0NXGrvKgs RS8yqAYhGJvyDt7unPlgd JqzZD0yNYGpsdbyZCQrcQ 3jAUCpdQWunXqsOA9jOLS wkjnqd055ZiUg DTX0EMPeuDGwW8UbbU5mR mTuWQQvVXLwP6MbxOLyII lsH618MJqzKmS0IHZwknT dN6BjWGQlaTsu ZiF1k5Q7Xt6oQZ2lMD1fA LVxHE97TT04eYYfa7V5gP H5O1DfQVYkyfepkmdkrUH 6HIOyTMPoeE49 gBRzHZktBo8wq0G8u944O MLrMHMvnP21Eo7ctKbxSH McpZHTtV0siniub6xjoam gIzAwMDAwMDt0 NGa5LZAxyKwkDgOiAOQ0L jF0LTD6qDVdjO1dwHcsdo pszT3kFka+NjAgWWVhcnM 3X7ZaChu3CICj qSsuXW8fdEBoFXgjTv2qg XeouRlsKQ7kGYNvfrhhNK LmwF2aDZHxaQHofVnpRC7 eNAHrhhgyh548 WzIjOCO1PMPeeXXsR6Ito O1eSfCqAHSeAMKeT0QqdD JfQXlcY725DCwhKmD4QNK ifiAnH0QvGZXw gAfnFxB9n5U2Lj7DBI6or KS0U2LmYqp8QMVfrRjlZZ 4jcPKwPChnQg8bjYqhhUc eYQ9aZRGsomab RVXniI5yIQRwhHGixYjiP Y0uNLSidgnro587YxFhMZ Q3MJRoqLRqE8VvyW4gTjT hSTJtERAoP0El gBGzBYdzV739URlfCsO1V YKlkeWhT2OvKYDtfHigHb W5z3F8Pd8YiQGgPMYnUM7 6XH74DP88L9Up PjwvdGFibGU+PHRhYmxlI HdpZHRoPScxMDAlJyBzdH zfGG4mOt6rGPDxNVPmkSq elLFzOaMtr9ef NECzFFlkSY1omZieY9Drq SN7AEOil6u2Ce37U09hM0 JvdXA+XJYmeDM6aCP1mU0 sEvAuPnS7BLzb C730MzUduWQwIzalz1ojp 5tziEi3DtCaSEAmubQcoL ugFAR8q5JeCx05I03jLIm pZHRoPSIyMCUi JNWpoXcwma5hcS7qIw3+P XPxnZF5iBW0mC6eMsXeZl X2DWswF628GgZbyHMiIvj aF24eS1JejTU+ COKnWhw6NUXzhPgxUF2tp JNpCLkuXv1oQVL6SxNuWh WzKWipC6SpYQEfcuiiipy ouXW6MHRiGVFr mF84Bo4feQneAe0cIOMaQ HH0ARZnzUBaC2VqcD3eDw DvQZLtRYFgD8PhnLUvYSr aM370RVfoCqU5 BWEocqVgU9VxWMJixUxnK zK7t8X5Vj0JwEghrNRjIN 6xJzBwOHl7L8WeBsf8MGM ooWvfRM2zwVLi QNjtKa2gmSfpiUpbUO7gL CVpcgefp911GaUwu0elVY ZwwTFwPLjaCCN5T94zs8N 2JIWaHIHkSPW7 fFP0jA3bpMnkgpyfcOAof DsgdmVydGljYWwtYWxpZ2 50KQFmoHleCwCHDoa6H7S nJzl6YCJdnYcz EP8lmVSmOXswBy2gyJuzl MhrVC2dWKVsqgqpe649Tl Qhi5oyJDOheFMxTIryEJN 5D76el1P7EYVy LWZyGBO2gYH5zZ8etQqql jogbGVmdDsgdmVydGljYW yaZIldX801RYHizTqhDs1 CNju1M2BoNtr2 GAVvuYrzOG1vpIYdCZapY j0eiEzfdHaqFF7cZYDxjj ekj132ThEts0lwFNQxuFD aFCatBLB7D45c e7V2FLBiQVCiKYP1iQO6s D3igSifenyrbMMktXtnmc PwxKvqNUfbWVhxB620PYM vcDsnPlBheWVy OjwvdGQ+OP43dr89A6QyJ hddBhd7OWChBVB9hMV4mY 2yRSZzJSmzh8N3jEH6G1Q lopXudg5fd5bh YXBz (more content not included)... Normal [facility] Consent for Treatmenton 04-07 Consent for Treatment [id number]#1 .00CD:127 Normal [facility] MRI Spine Lumbar w/o Contras ton 05-04-2022 [...] CAITY Technologist: BARBRA Technical Comments None Normal [facility] RAD - MRI Screening Formon 0 05-04-2022 RAD - MRI Screening Form [id number]#1 .00CD:127 Normal [facility] Insurance Correspondence Off iceon 04-27-2022 Insurance Correspondence Office [id number]# 2.00CD:127 Normal [facility] Physician Orderon 04-27-2022 Physician Order [id number]#1 .00CD:127 Normal [facility] Physician Order [id number]# 1.00CD:127 Normal [facility] ECHOCARDIO M/2D COMPLETEon 0 04-20-2022 ECHOCARDIO M/2D COMPLETE Patient: ELISA LEUNG Exam Date: 04/20/2022 : 1960 Gender:F Ordering : DR EMI FRIEDMAN . Admission #: [id number] Family : Order #: [id number] CLICK HERE TO VIEW EXAM ECHOCARDIOGRAM REPORT [...] Reyes M.D. on 04/21/2022 at 19:38 Normal [facility] AORTA SCREENINGon [facility] AORTA SCREENING EXAM: [facility] AORTA SCREENING HISTORY: Vascular calcification. TECHNIQUE: Ultrasound [...] by: FRANCO TOMPKINS Date: 2022-04-20 11:04 Normal [facility] Outside Records Officeon Outside Records Office [id number]# 1.00CD:127 Normal [facility] Progress Note-Physicianon Progress Note-Physician To whom it may concern: Patient has been evaluated for lower back and leg pain. But also popping and cracking. She has done PT in the past with no relief and she continues to do a HEP 3 x a week without terminal supervisor relief. She has used OTC meds, anti inflammatory meds and muscle relaxers without relief Due to all of these reasons I am writing to have you reconsider the Lumbar MRI for possible surgical interventions vs referral to pain management for injections, Thank you Sophy Rush PA-C, [facility] Normal [facility] Comment on above: Result Comment: Elec tronically Signed By: Spohy Rush PA-C\.br\Date and Time Signed: 04/18/22 13:50 EDT Outside Records Officeon Outside Records Office [id number]# 1.00CD:127 Normal [facility] Insurance Correspondence Off iceon 04-11-2022 Insurance Correspondence Office [id number]# 2.00CD:127 Normal [facility] CULTURE URINEon 04-06-2022 CULTURE URINE Isolate 1 [...] Trimethoprim/Sulfamet hoxazole <=20 S F Normal [facility] Comment on above: Performed By: #### U RCX #### [facility] [address] [place] [address] Dr. Jeffry Daniels Coding Summary.on 04-04-2022 Coding Summary. CD:[id number]:[id number] G h0bWw+PGhlYWQ+DA7NYFA dY09gfSTceI6FM1xCYP9K ABKTNCMVGF0KGT6liHK1U NwwK9XijeJy VlfweZTfVV33PBt0MFH3p LeuCFkadB4emVKqB0l7Kb DfOG80sD88IVbvFWDjAxX 3LjZpbjsgbWFy X9hxTkOzsGJeLks+PHRhY mxlIHdpZHRoPScxMDAlJy FuyTbzUK7xFz6nKLLwLRS vbGxhcHNlOiBj p0ppLCNwBLrdDH3elBuiP 6SrqLP2BWLtq7v8Fl80iG I+WSAfULA2qRorLFnky73 7TfSzy4elZLJ2 aHSmQFowRFR7C48mm7Z1D NMcTDJwUKC9wWM6zC1hqW slhdyxP8XvxJNrNoB5XEZ 9yWIldT2udZxs hxnjlQ0rLgm+G13URO4KO IEALH0ILfm0Y2FgUulioM I+YH56AMScHO38vTEroBD id3otdRx2OqYd BEDiXBY6pDerELptp9HnL VJlP34btYKzg5E8KDApjP agyNEkGuMkhHP3vS9uVCo cuhhkj8sjlxiz Ldzig5jcbg11vW73F69mK JepVBLmPBC5ZHBvUYKkzW sxjo2uaU6cGm8+NJsug4y xk6xabOx8MoZk YODxurPupYjiVRT4t8MuQ t95E9BrsQpds1EaHgi7em 04hIYbl6E8yDG2ZGjwTOM xyL7xONmrKsV8 YXYtMvHjkW02kTInZWygO w0zdJlbdZxqZE2aXTDzet yyQAMdfO7yGLFmwCLhkAb nIM1qYCRwwasd o916BeXmZWS1ZOKedCMuS 6MvvT0nAfGnNTZuWEXuA8 LonQBuQBbnD708GIqyOlN 9AKCuoeSoK6Qa GOOmrCrgBrY8h8M5Ur5In 1OwohqySCT3GVnnCCK8Fx VhNkLvFqX0R7EoZho1IRA znPnbCO3rL8Qt LSDngiiqqiyklLF2WZKhN KDgeN11dACpJBewCp7ch4 M5o200HGRxNHEqsN81Zn5 udDogMTBwdCBU uZ1bhovcj6kxoafsLzIwR FFgOHl6CEc9KXKpcBrhEp ZtQQJ9JcI1LKY2dEAmcB9 hsSqjakyfkX9d Oyc+L01ijP2kSFP7KYG0u atyYBDvdrEuSI80PO89B7 RyPjwvdGFibGU+PGRpdiB plIsuSQ8jReFh k9gzk8HrOTtvT5VfFKMlH WdrIxu2QFKhSHH5kGM0nH 4uUJByPRzst6I5kQS5X7U jmsAzbq6ui8bm MRYbFJosV86ydSEed2Q7W PRojYL4HHZgjAjcAvMhgC 93Oyc+DUYzwFpin5WtIpk cn2dvy2nnxUs7 DmIkJSZgboVzrTlbHZS1j 4WoPq11X13qULsiWAGfPT XbEVHbAYTeoOpfqx5yhL1 wIi8+PGNvbCB3 zOH4jK9mIVYfAbI2SDmeK 742IdCqeEIfVqlgz8cqq0 zztIp5YgYiKXMamqKaeXv tGBE6a6PzOv73 R68eYMqnLBHvAKNzDVVnO KSoeRwpil0ubQ3cHj8+PC 3km8ckrp82nM80rPR+PHR jMDV3jNdeKLce JABmpM8mQAceInY4AJHwQ rBxjO55fIRgNHslJh6loP iohIpgSB6qEHKumtgib92 8JgSrd1vaLIOz iXIqSFbcIZN4K31wq4T4F HWsYSLiDOF5oSP9gP3tcM lnbjogbGVmdDsgdmVydGl oVKcyAWliF466 IHRvcDsnPlBhdGllbnQgT pVcGQl4P2WzFuc5KGFquT ocKD8vxETkIPpfOx3uxPd oxQzxBW3mTGIz sqjlr275CvIeb3idCXZar HLwBJzcAZN6O02ue2X9DP GmWPKwSWH0zYK1rD5hiIx nbjogbGVmdDsg vzOijJyoVMxkVCleZ509Y HRvcDsnPkJpcnRoIERhdG M9TK59CQ56nCKuk9X3eHM 7I1VeOAGsoynz llyefFI5JFHjMFNlqH48L i8biLwhTt4tXHAzSGY5NF SdpWHoV9XeyW6yUtHoRSS fDLFcM9EayFCe BMtmB703VVsiUbE2YGUey sPfO9QuTBRtzWfhXxV3b7 H9Ii4BY7F5SS54GU35hTX lp9Z4xSS2L5Wf FXGugfofehozsOC8GRRgV STmnM26Kh3anKynQy7hXL OzYXX5ZRRtmAJiT9HzgJ5 yOiAjMDAwMDAw V7HwhDUmWBvbS372WXxvA nA0NKPpiuMyN8XoDVKxeV zjRrB5i8I1Nu4VFTk4HV4 2KP33aOYxz1R4 sGK2X3ApYQDrkjbdzsivv HH2KLZqKDUgrK70Tk7nnU rqCk2qUJMxQGJ8FPNdiTK yP0QcsR9sQrOh USMuRKRpI1UtdZGhULznP 057TJyiWxG3UBMnhvIhP4 RiMNNknPdtKfO7b0A4Gj4 CULAmBS00YAJ5 kHH2LW71NU34T4UbXqwgq GFibGU+PHRhYmxlIHdpZH RoPScxMDAlJyBzdHlsZT0 zXg7iCPBlBGYi bIvaeLCsPlJzx2tiCUOvK YwmNK1ojKfmQ5TvfUU9DG Gfg3b6Bb62B91lZ8EigOJ +HNYtfAW9bFL3 oY0uUtRrXhE3FUelH751P hKrwPBzYpscj5cgp2uwlZ f4VaW6IAFmiyOptVzuOYI 1z5LtYn03U70w IHdpZHRoPSIxNSUiIHZhb Zpcdw4saO3rUw9+PGNvbC E4eUL3cF4mAgQbUvU4KIv uT498RxFndCGq Tzznh9mja8wcfVt9XuUsO QNdbaJqfMdpEQS0u6AuUv 71E1NgkKhgk2ZpClk3lq5 0zOPui4H5pEV2 E2BxJJZzvszirNBphQdoY S7vVFCmlwdrAPAqkL5xBB AnH2x9XkWiDhL9NTpqL2K ugyI1PXAwvAVp RYwaIBA4H17rn5E5QJKqP ZGcDRE0sTK9pO1guRwwdm ogbGVmdDsgdmVydGljYWw nZZvjB116ANQu iCxlGFHfnL5zRYJtrAQef DmjJT9gVYBkkqqzCvLDDI 9BETOrHNpXMGVNSAC1H5X mKwj1MTAnwRwm ZE5zxWYnMFlkHk1kxHfxn VviLP2lGFMyzpucUITjoX 3vSEOryECslEoeCT8wOBW eejmzv347JfIt WPT9TGZzyLFkJ4CyoZ8qO qQnQBRwFCQoW3TqrCCtWC jzS634LGjtZbE0ZUQfmnP mZ9JnBAUjlBit DqH5f0G9Ad8eCY3bWR5zK ECgVW00JA19yFGww4W4cY Z4N5HwDRRtwxkqgrykfAW 3MCBmGTAtdR06 eQFkSPmwOh4fv4Q4r210H QSvTNHiiB22Mg1rzRprMO StxPXEgT0henvze5wxgex gIzAwMDAwMDt0 YFg6BGRupPbxDlYlQVP3F iU6BWB5iCAabX5wqUjyxq zmyH4kKfh+NjAgWWVhcnM 9U8OmBnd1VUOs uMpxDQ8ggRNyDWxzRb7jc AheuBefZU4lFAQfyyvwTA RtpK8rOYMfeSFhzIkpAM5 mVGFladlks447 AfFlTPT4KIFuhRRmJ3Qtn M8qLkHvHVSwSMLkD9NrcF RjHFpxC320THhuAgB9YXV sanXqW4FfHOFx qLsoBdS4c9N5Sv3QDA0hx ND9R0PiSsj0UYTleAkvJW 2omQZoCHpdWr4vlUpglLx dVA5hRGTvcyhv PFPzyF7pIKRivDUuzNjqN G2zXMRhxococ826DnSoFA B7ZGFhtDRcC7WoaZ1oGtE oDEPiPTScP8Gi lBKwGHubM528ASpvQcE8Y JLlksMeK2QzCKYanHysVg V5w2F5Bx8ToVOqRCQqSH4 4CX94IT02W8Ay PjwvdGFibGU+PHRhYmxlI HdpZHRoPScxMDAlJyBzdH byCZ1iKs5sLPMwHICmiTv osTXkUvLal2pw GBNrJEsmFP5omNeoR1Xfm XY7DIYeg6h2Li99Y07dW4 JvdXA+AODsiRR2yLB0sD2 mQqBkIxU2AZyx H236MpQaxVEkDytqq7qaq 5uumHn3YxZhVRWqpoBqqT umENK1g3WaDo43B54pMDa pZHRoPSIyMCUi ETFquWlqun7elS9aRg1+P RDcdBL4eCF5cG0qVmNdMk F6JIfyJ732XmChkQGyUsh mT36kQ3XeuNN+ IGMsHed9BFAyvAviGK4qc LYyFOytDu3jGEI7TvSePt XcJIhlI8CbQHXsnzrlwtx jmXP2KWAjDHPx hE46Hl7ldZewWw1aJMZkO LR1VNRleIKxB4XvqR9iSs PjTQMvEINnG0HuuCZwSWi eF118COfmYfJ5 SBCskqOjE9RiSTCdfVtwD oD4k2V6Ue7IaBdbyOAkHQ 2zCpPeZAs1N8RxDka3MJJ fjXvwBB8icXQa KArtHk8doKjqmRzpCD1gR LAryensw418UrFcz4kyBE ZibQJcCPwvXBV5H63hh4T 2XSYrPBFpZDZ6 iDV2gS8pfCamczhowBNvr DsgdmVydGljYWwtYWxpZ2 59AVZxyYuqJwGVZlh1T4Y mPdi4WPRrnJkn IN9aiEBnXVfxEk9plNitb WkwOI1lEEWdssztv491Uo Tnb2bbGRUlmHPhDTayPUR 9X85gi2A9EIXh BVTnSJT6uGZ2gP6atDogb jogbGVmdDsgdmVydGljYW fjAZcfM537LPLzgUmzKr4 UTuu7N4ZdEyt1 JRPkpZhgPZ7tsEJiHFoaC j4doZgmeIqnAE7rXNTavv pwj625StWzu3xaIXMlcNX qXPqnHUW4D58u i6A3MPZjWRDsLYZ1kEF5e G9ikSiyuzmgzPDmzTbmzp EmsFioCBvkBEymH217JWV vcDsnPlBheWVy OjwvdGQ+BT80cl21T3VkY mhsJuv2OCOvOPP6sOO9sN 3lDSYbKLxjx3E8tWG7O7J ajvYkor9zd5bo YXBz (more content not included)... Normal [facility] UA RANDOM W/MICROSCOPICon BACTERIA NONE SEEN Normal NONE SEEN [facility] Comment on above: Performed By: #### U AMIC #### [facility] [address] [address] [address] Jeffry Daniels Bilirubin Ql (U) Negative Normal NEGATIVE [facility] Comment on above: Performed By: #### U AMIC #### [facility] [address] [address] [address] Jeffry Daniels CAST NONE SEEN Normal NONE SEEN [facility] Comment on above: Performed By: #### U AMIC #### [facility] [address] [address] [address] Jeffry Daniels Clarity (U) CLEAR Normal CLEAR [facility] Comment on above: Performed By: #### U AMIC #### [facility] [address] [address] [address] Jeffry Daniels Color (U) YELLOW Normal YELLOW [facility] Comment on above: Performed By: #### U AMIC #### [facility] [address] [address] [address] Jeffry Daniels Crystals LM Nom (Urine sed) NONE SEEN Normal NONE SEEN [facility] Comment on above: Performed By: #### U AMIC #### [facility] [address] [address] [address] Jeffry Daniels Epithelial cells LM Ql (Urine sed) NONE SEEN Normal NONE SEEN /RARE [facility] Comment on above: Performed By: #### U AMIC #### [facility] [address] [address] [address] Jeffry Daniels Glucose Ql (U) Negative Normal NEGATIVE [facility] Comment on above: Performed By: #### U AMIC #### [facility] [address] [address] [address] Jeffry Daniels Hemoglobin Ql (U) SMALL Abnormal NEGATIVE [facility] Comment on above: Performed By: #### U AMIC #### [facility] [address] [address] [address] Jeffry Daniels Ketones Ql (U) Negative Normal NEGATIVE [facility] Comment on above: Performed By: #### U AMIC #### [facility] [address] [address] [address] Jeffry Daniels LEUKOCYTES SMALL Abnormal NEGATIVE [facility] Comment on above: Performed By: #### U AMIC #### [facility] [address] [address] [address] Jeffry Daniels MUCOUS NONE SEEN Normal NONE SEEN [facility] Comment on above: Performed By: #### U AMIC #### [facility] [address] [address] [address] Jeffry Daniels Nitrite Ql (U) Positive Abnormal NEGATIVE [facility] Comment on above: Performed By: #### U AMIC #### [facility] [address] [address] [address] Jeffry Daniels pH (U) 6.0 [pH] Normal 5-9 [facility] Comment on above: Performed By: #### U AMIC #### [facility] [address] [place] [address] Dr. Jeffry Daniels RBC 0-2 Normal 0-2 [facility] Comment on above: Performed By: #### U AMIC #### [facility] [address] [address] [address] Jeffry Daniels SPEC GRAVITY 1.025 Normal 1.005-<=1.025 [facility] Comment on above: Performed By: #### U AMIC #### [facility] [address] [place] [address] Dr. Jeffry Daniels UA PROTEIN Negative Normal NEGATIVE/ TRACE [facility] Comment on above: Performed By: #### U AMIC #### [facility] [address] [place] [address] Dr. Jeffry Daniels Urobilinogen Qn (U) 0.2 {Daysi'U}/dL Normal 0.2 - 1. 0 [facility] Comment on above: Performed By: #### U AMIC #### [facility] [address] [place], [place] [address] Dr. Jeffry Daniels WBC 2-5 Abnormal NONE SEEN [facility] Comment on above: Performed By: #### U AMIC #### [facility] [address] [place], [place] [address] Dr. Jeffry Daniels Coding Summary.on 03-31-2022 Coding Summary. CD:[id number] G h0bWw+PGhlYWQ+SP6ADDD qZ98ptUEndS0OA7yBGR8X VYTOYRNXPK5JSV0ieWA4A ZzrO4ClqpWy CbyjlRTeSZ84LQa6JWA0x XciBZzzuK2juIVhX1s8Xa LgUU10eB89EDrwSQTcRgR 3LjZpbjsgbWFy Y7rzLbXfbQDpMyz+PHRhY mxlIHdpZHRoPScxMDAlJy LicPxbMU4fEq2iOLRvSCV vbGxhcHNlOiBj d8miVJLaNJzmAU1xwVjvD 2TjfVC6ETHnf4s8Hn77bZ I+RYYqHEI6sYilOHtpj74 9TqHqe9nkMDT0 mGUeSVbcWOW2C11lj3B6M LCtWBDrSET7bGO7fO7kjI xouyecK9OleFPqZsU3EDI 5jTQmbK6muToe ntpasT6qJah+V05AYT7YU NVCKT3DVam5C9CqGlarhA I+TG60NBTeRY80gTJilOP wh1oejIl1KyOm FCLxHTE9aHocEThga1RiT NGaN35ctQYkp0M6LMAjnX urxVSeUfCuvGC1aL1vAJi woznwu2bmmbuh Suiua2qtlk34tP61M83eM OgxIIZjAIJ4BRBaBOEcfY qtnh6hgJ4dIg2+IWfof4q or7nyoBj7HqDy ALKsveDpiDtlHTP5y3OqY k00U3HezFwcz8RlZpk9ab 93qFRqd2P1yYL3ZKxkZCI peV3cKJclYrG9 CRVqWgFtsP00dBZcFSzrV v8orDhpaPrmQO0fSTTzxp eiCJZhwP4rTHFyjSMfvSv hIP8qBMCtgpeb e927XnCpWUN2KHZepDWkQ 3RomA1yJhFwKHGqSXHqI7 BkaCVtCKzhU376LFzkDzZ 9PTEhapGrY6Xa JAJmqOraImW2a8G7Ev0Vl 8DlwoulENV8MFxhNPX2Ev R0ZsBzPsA7E5EkApi5OUX jwGguQO4cU4Dn UXQdumyzvcxoyGI3DRNcC YOybO37eVSaRDtjMe6ch0 K6e434QSPcLVTelJ12Il0 udDogMTBwdCBU yA3ujldod6csiujmIwHaL OMkENq1AHu6CJXfnUnfWp PfMNM7HdR8MMB7uGEsuQ7 hoJtxzgwtxJ0j Oyc+Z25vrL2dUZZ8HST1o ylyCUEiheTjNQ42EV18H5 RyPjwvdGFibGU+PGRpdiB gvViqXI9bZdBd d1nvh2SrLXkmG3MbHTXaG CbjXhj1QIIyMYE6qGX8hK 6hXZJjLNobk1Z3dKA5Q7A rjePlpl0nt6um CJNbRFevW06ikMEwi5G5P QZxbEK8KEWmwRreDuSrkN 93Oyc+EXYgbFvit8JoRmd cf8bjd2ozpJl9 VhVvSFJwlaDfiLqnVGD6i 1VuIz41T50yVYsjCAZdVM ZmEFCzWZUlpCabka5xmQ8 wIi8+PGNvbCB3 kNR0hD5eHOOtMqI2EDtmU 005WhKrpCMbAiifj3qpt7 biqMa1EoOmMRAedfXpvEr kGTD6a9SeXf86 F99eBUueCBRiLBDuQFXyD NFukUzzfo3sgT3aOi7+PC 9nc5tkbw68dA58eRV+PHR aSVR3kAdcOCqq KGXowV8hEGimRiV4TGCbV dLpeX61iXQeXKieNa7zlE ohlYbfEV8tTVMvjvitc21 7WfHxw6xtIWMq mQUsHLpdQPM4R65ho6E0Z NPbVCXiJYD7gYZ7pU7ttQ lnbjogbGVmdDsgdmVydGl eRSbvQXtsF926 IHRvcDsnPlBhdGllbnQgT rFtBCf3W8WvWkr0XWWrpT oxYU1igXKqQMkuDg3jlCx ryBeqFT3aHKCb qqnpa689DwUuz1jvFGZez RNiTRndTVM9C82lv3X4BL VvRTBrPYC4mPP3bF2hbKt nbjogbGVmdDsg enQycSxmUTzcRWxsC873U HRvcDsnPkJpcnRoIERhdG M5JI48KX58hWIpx8C8dKU 0E6OfAUOrzbon kpxnhVG1QZQqQQLahB66T a9zeQaoPz3cNZWmLSL6UK MtoLTjG7DnvE5sGlPwAUN lVMWgU9LytCSk FSpzO834WYhzIyY2JRFxy cHoJ4GkJFQcsAnxSeQ9j0 Z8Hy8QK4R5RE10WJ22jIF tw7E4oCY6O3Hm UINszybnbwsslVH1XXOyA IAhaR96Px7rdHueXe5mOQ MzVPM2KHLkxWTiM5EvsV6 yOiAjMDAwMDAw E9VtnGWoAQjeR727FYquN aE0USBtbrCdR2FfFHGwoK gcAyB3e4N5Hg8KVEg3FD2 9TW30gZUbs0Y9 rDH3N1GvGGJmgbxapwati TK9SMSqHMNlvW42Oj7ijW tjRb3oSESzPED9LJUnoKM qC1IjpK7yByGa XHRwONGdK9CcyUUuOJurY 863IZukPvL0KNXlugVgR7 OjGQNsbRvyVqH6z6N1Ed4 QSALcNK60ZDZ4 jQZ0PT84HZ27P0IvJtsnk GFibGU+PHRhYmxlIHdpZH RoPScxMDAlJyBzdHlsZT0 vNy9fVHLnVSYu wEbwbUAcDkZcv6xuWDElC QulQX4agWldP4NvgCA1IY Unp3x5Qc61L12eI7ZymCK +AQUyyHM7aRZ5 dN7xClTxIxZ7AZsvD835O pNhsVVzHrbtf6upx2nueX u6CzQ2OAJueaBrhVluEOG 0b9PuCh45N91i IHdpZHRoPSIxNSUiIHZhb Rlxfu4waE8zKu8+PGNvbC B3tYC0lZ7nEgKcLzD3EKg eT772KwCsdKNl Lcgwv3jez2wjyOa6CtXkA PKpaaUzuKfiQDH3n8BsXk 40W1HtlTrry7EfTkv1xh8 2nXYmh9X1aGO2 P6OrGHJrgpchnZZsmOlrH F0lXXQocsjvMNJqjR1pCB InX9w1AfQvIoD0DCyeI1O azpM9ZOKghXGt MTvvKYU5R85zq0V9QPXhK FGpWWD2hZV0pT0pjSeqnp ogbGVmdDsgdmVydGljYWw qKBuzD222XLRa fSnfDRHozW3jCFGyyBTsw PgsYN9tCRWtaednNnHIUH 4ISOBwACzTSATGLWH0L2U yDkn8ZIUhqOcv XH7boMBmGDofGg9taYedi IemYH4tQKVufnspOMUrqA 8tGDLsaIBjeGiaYJ5jAIZ paghta426OwPj NMP8QCTalHBqV4MsmW8rF mJyJIBkKOCaD1FxjRKvSU reY280YXazKeV4OGLxltX vJ3JhVXZlxKsi ZyS7q6K3Cv5jTU9cYT3aZ LWpOA41PS34gCUzb4G3oL K4J7GqRPZouzyorsiocMH 5MVFkGWHubQ43 rGUeQRjsPh4fu9S9k258F VOfKFHshY74If1ifArnGR XyvVZBqZ3ljfjku7rifkd gIzAwMDAwMDt0 IMy7CYDsvGhcWgAlJFQ5N tL6OKG0oRYutM9nlHiakk tqnU7vOwz+NjAgWWVhcnM 6H8FgHsx4ISOc yQvcNO2idOJeFRddGt6te OlohZquEZ0pLVLsxuesJD OffP0pDMFcoOZyrTvoAT7 lHGOdtaghs039 PqRlVAK9XIDvrTPnX6Lws H0tNkLpFGJvMNJaY1ShcD QwWMhnT506ANzyWaY0KVZ rqoXpM8ShTVUc uMbnEaJ7h5E5Ex6IQH4ne EQ1G0ZcYeq1SAVtdXswJL 6suGYhJArkBh9fwItmsMt qSM1sFHSbsnng KTSkoD4mQPRmmDXhfKgcN T6yCUErfkmkd440EpWqYM E4SXBhuOZmT8YofF2hBhZ aUFOkNQRsO1Lq rQPdKTsrX737DHewCpS6Z RZiccOhD4ScGVHssUrxFj M3o3W5Ul6KuRFwHIKaBH7 3SN96JJ59Z5Ps PjwvdGFibGU+PHRhYmxlI HdpZHRoPScxMDAlJyBzdH dqIU7fUi2eWUTcUIXtlZg juWPrPyVct4vr RIVqWMgxDQ8siEshZ1Uif VM3IKGed0d6Jf64X76yZ4 JvdXA+XDTllNZ1mGH6rQ8 cMnLeKgS9DPgr W657ZrTbxMClOsuwh3eny 9zpyWc0BuMlFYEffhXheW zdDNV7l5MaCp26Q84zTXt pZHRoPSIyMCUi CWJrcKsqca0lrI6hRh1+P ZIruFN2sCT0fH4mMtIyOb B1ATqcL291JuCvgVKeHyu kJ82dR5YcwNK+ CBImNde6MAOtzEflVE7yl SSoOCjtKu6qDMG4LxDgXi ElDUubV7KuAXTqxtmivam svJU4ZBLuMPRy iP59Nd0sxUjkJv4oHITdB TP5LFKwlRJyB8WlqC1pLa DdNXIvDCPlS3MmvNNcJMo iN578CFqvVbC0 DYWmkfTcH4LdRLGqiHxlS cI1n4K5Bs2AiDpgsGGnLC 6iQcOzKMv2K2RhFzx0ZSQ otBqbML5ziUSi YBdyDp8crNxlzKsrNC0oW VEprfvbs003GfWdh4juAW BdwNOzZTamQEV2I70fg8C 4GXIrSGDoION0 aXW0tA1thCuohiwexFDwd DsgdmVydGljYWwtYWxpZ2 22BNDqnLslFtXPTks3G4O oYjr8CIUwsBpr EQ9lkSXlSYodFd2zxUvus PtnUD1hPANyxgizi970Nf Lpj7tuMUSosAUyQZtgHKQ 7Q67td0E8CRMq ADDtAZL2aBQ9hO2cgPvug jogbGVmdDsgdmVydGljYW vvMNjfP201NWLfjOxtVw4 IUmm1U5BwNhs0 CHHipOxhJU6qbIQcXDawI w6yhYdxeBfxPT7cRMYnpn dcw242StByc9ouPMAcuWG tGWapTSO5W35x d5W7YDCsAVDoEEG6jRK1f I5xxWexddvpbNZkdSarlh MbuZzgVWdxCPsfK239QGB vcDsnPlBheWVy OjwvdGQ+ZX74nz44Q7UaZ fexXym5QAWmZDV0rDU5uC 2uJAHhBLisr2D7fFS1L8K vaoWvwn1vo9pn YXBz (more content not included)... [facility] XR Spine Cervical 2 or 3 [...] Aldo Coburn M.D. Transcribed by: CAITY Technologist: [facility] XR Spine Lumbosacral 2 or 3 [...] Aldo Coburn M.D. Transcribed by: CAITY Technologist: [facility] Consent for Treatmenton 03-07 Consent for Treatment [id number]#1 .00CD:127 [facility] Consent for Treatment [id number] #1.00CD:127 [facility] Consent for Treatment [id number]#1 .00CD:127 [facility] Consultation Noteon 03-28-20 Consultation Note Patient: [...] needs to get it taken care of. Jcmj-xxa-lsobakv anti-inflammatory medications do not help. 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 Hypertension / SNOMED CT 8931515198 / Confirmed Anxiety / SNOMED CT 26020435 / Confirmed Lumbar disc disease / SNOMED CT 2755265855 / Confirmed Lumbar radiculopathy / SNOMED CT 529960403 / Confirmed Chronic gastritis / SNOMED CT 84104118 / Confirmed Migraines / SNOMED CT 27016176 / Confirmed Insomnia / SNOMED CT 769099922 / Confirmed Colon polyp / SNOMED CT 845182695 / Confirmed Chronic leg pain / SNOMED CT 492595448 / Confirmed Laxative abuse / SNOMED CT 224997387 / Confirmed Chronic cluster headache / SNOMED CT 967735490 / Confirmed Vitamin D deficiency / SNOMED CT 10705337 / Confirmed Hyperlipemia / SNOMED CT 94370013 / Confirmed Osteoporosis / SNOMED CT 774738255 / Confirmed 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 [facility] Comment on above: Result Comment: Elec tronically Signed By: Sophy Rush PA-C\.br\Date and Time Signed: 03/28/22 12:44 EDT\.br\Electronically Co-Signed By: Derick Meza MD\.br\Date and Time Co-Signed: 04/04/22 07:48 EDT Office/Clinic Note-Physician on 03-28-2022 Office/Clinic Note-Physician [id number]# 1.00CD:127 [facility] Physician Orderon 03-28-2022 Physician Order [id number]# 1.00CD:127 [facility] Physician Order [id number]#1 .00CD:127 [facility] Physician Order [id number]# 1.00CD:127 [facility] Coding Summary.on 12-29-2021 Coding Summary. CD:[id number]:[id number] G h0bWw+PGhlYWQ+BB5NXPM aF81jcOPrrG5WD5sSRB5L RBZQNLIYTB1IZQ4lqVB0L UenC6ZzyaDc EteehZHoHM50DDr5KIO9s TnuTPabaD4qwBJmQ0e2Gs XoTF52zF30SIwkJVNaQbX 3LjZpbjsgbWFy W4srGgOpuUQsYie+PHRhY mxlIHdpZHRoPScxMDAlJy KpsEdgDU0tTw2fASPoTCZ vbGxhcHNlOiBj e6roHZObCJggMQ7uvStdQ 2XfiSL8IMFsl5y1Yx78eV I+OJGoKMW2vNjrXJsea18 6FrHwy9aeFBI7 aPCcSEtiMHK1H35zz7P9X XVrXVItWUS8xOJ4gT7tiG sxevdmZ2FrjUZyPjN8JXX 7gNAtwJ0jmRfk oftewJ7oTid+Q29GPO1FR OTNYJ9ARgg0H5DkDeaciR I+LN79LVGpBQ97bEFeaJN rs6kwfWm8ImBx CQRkLAB2oVvcGPozz6PbP JGnZ33cpNIzw9E6FMZkjN kroKZfUsGgzZK8qX0rDUf phjnkq4ubtigw Kaovq0uurx16dN66C18kU MxcVZVmOUA0SBPqSITbmJ awxl0piY7fId5+STjyq5s lx0qalPu3ReAa WSJjexPugEpuEEM2e4FgP t69H9KeaTony0UzQhx9bc 93kRLia5V1bGU4SSbkROA epF9cKQkyKyH6 TMTpGkIgkK58nNJwXAoeP t2mbXoerNyeVW5qETBztz mxRLVjdJ4sIQIyhEZfcUt zKC7pYXSlhjox q647HaAkUJU7YKZkuBEpR 0OspN5tUfIvHYAnMHZyM9 QgnUQjYUinA511PBvpJzQ 1AOVumuIkV9Id ZBTzoPjlCyL4g7B5Eo2Um 2FwypiqYRE4YOvgCKN4Dg C5IvNwEfQ9C1ZxMbp1HDE qxJodMV7cJ0Hp HUOuyhheklzojZD8TISsI RNunX53kHDxQQwjYm5kn2 F6j548SDVjEGCavB25Po1 udDogMTBwdCBU fF3rqvcsx3ilobntImQzF FUgCGi6JSs6APDwfAtnJr HmIFD4TiJ7ZTV8nOGoqO2 waMnoyptpeO1q Oyc+Y47nxN5gVXX9ESZ9c ucyQKVikaSvTD21CR94N5 RyPjwvdGFibGU+PGRpdiB hkDyuGA8vSeCr p4ibt9CyQWxaS5FhCJJbL RzoCae8ZJRbXUC6kYH1nG 8kXSDyKBten4S8jJY9F5M thiWhrt9ad3uz DUEzQBbeP31ctDFuz3C2R EAtkTE2VRNgqPirIcBsnI 93Oyc+BXZtkNtdh6NsBmk kw0xnx7nloCf2 LnZmCNKgefXpqRimQTL8p 5BsWy01X58eTDcnCELsQF IaQSPzXVSixVhvsq5asT5 wIi8+PGNvbCB3 aRN5fZ4nJCMhQiW3UQljR 440QqXmoIBkHlhoa7pjf8 ifaLz4KhZpANVhncOdcTy sSZF8j6WvUt29 E06pRUmnJYTnSPGjSMKnP DIpfMeypp5lyW6mDy7+PC 9pp4cdko17pP12zVM+PHR gVIU4rXuiKYbv ZSVefU7mREjiCjG0YEYmS yPyeB63jEFrTVozXz1leO dneNxtRW0sMKLfzzdtr50 7DhJqo6jpERBf dSDhERosHJM9I02xl2F9R ZXsHAFlZWU0gPN1hE3ybL lnbjogbGVmdDsgdmVydGl qCDefGJmtB764 IHRvcDsnPlBhdGllbnQgT qNcBBd3N8VzZcp5MJSfnA wnYY3qaDBkWVnsSd7caKn pgSxsEV9rZJVn uxovd658AqMqz5cfTZKtn ZYnWWcfSSK0N33ym4H6PW SvGASpVAG2aBH4xK7ttXj nbjogbGVmdDsg qiDwwWtbWNzqLWcaT524G HRvcDsnPkJpcnRoIERhdG Y2XR48BD24rFUas0M6xQS 1C1WgZZOmfpxk dwycfJS1JIJlLRPvpL42K z8erAujVu0iGCOoYOX6VJ JngNKeZ7RxkD3oMrJeKHZ cARIpO0AmoFRn KWjdD094QCasPtN9QHZpi gEiT1OuTGRdaQfnYlM4m3 V4Vl7CG1J0ZN47OR23dLU hx5S4aXA3X9Vv MDTaydmazrzebSF8TQKhL ZNdcG20Xx7bbLodKv3tNO KwCEB2OYDejNLjL2NhyK0 yOiAjMDAwMDAw S9AoaNXnODqnG230EXhvW dU0TJTyygJfV7GgDQAnbT tnTsC0q1N3Vo2ERKb8AF0 6PG10mBHws2T2 oOD1N2OoTBWfkcsqyyoug HF3OPWkYAYhbB84Pe1msE ubPz2pPJJkHLO3EOXeaFP iJ3VdoT2sYjKk IJSqXGVvO6AnnOChQVxaR 442XXbkDwZ7LNTbubVrZ2 WdLVHudMooQyG5b4R2Xk3 YHKVzOU78BLC0 dRH4EQ14AH43O7MpUducc GFibGU+PHRhYmxlIHdpZH RoPScxMDAlJyBzdHlsZT0 nPe2xNOIpWAHt fTfrgBDxOgGyt1djNJVyA IyhCI7xgVxoE1BoxER6QE Ual3b4So69D23lR8MewAT +CDYkhIQ0oXW7 vR2kHjMaPxC7HErnC765W pZohIXvKjhjw6epg0kgcO v4KaD9KWKlboZzlXdbUFF 2p6JqSu11Z75c IHdpZHRoPSIxNSUiIHZhb Whvuu6plZ9mSx5+PGNvbC Z2pHS9mI9qWtGlMhO5VAy fF364HcFeaDAu Hxkzr7wno2jsnXy1OzCaI ORkmgKaiQlmHZO3s9SeRm 18Y7ItbBikd0ZzSnt2jv8 4cHGoq0A1vVB5 I6BsMFTtaqmjkGCmiVehF K1lEENdfckxDRBriJ6cJB ThU3r4AeHdQxI3KTapN0D gkyX1IQRklSEx BPveYDR3O15ax8R8BVRlE OKxFDS4aXR4gV9reJqtoj ogbGVmdDsgdmVydGljYWw iVYokN827ZPEs mKehSYJtvS4gYCSqoWSzn QaaWT6nHLCeisipEtWTCT 2CPADsJIfJTYLHEVJ1A4C zTvz1BEOfyDlz AY6qxNIpWFezMu9xmTzeu JidZT6xZYBqucecENKdiA 5fRFBiiFRzcQeyBV9zYAF bbhomh608UwMi WPK0AFCvkYNcQ2RbkP5pW wIwLNFkYDBaU4YlpROaSD olY786SVadPaR5XIMtlvN qF6MkGPBejQyi JpM9d9K6Yh7xCX4vWF8xG NZsSB67TB68sTXhu2L1dV W8T1RaGPPqgvmriadorEC 1GSBtXBLbyU11 pZYjTRwkXh1bs4B9d886S WSrAGFcpZ28Le3yiPvlAU CaiDALaI3yxyeac2epzkm gIzAwMDAwMDt0 XFd1VVMywUvfQcDyUEK6G oS3VBX1bTAcfO8hcBroex ufqR4pJkg+NTkgWWVhcnM 2B2HhCbk9DIFw iKovRJ3wmPMxDIikKf6mu NrbqCakYU2jMSVgcmoeEU UuaK9fSKMriDFufUkoXO2 mLYEvwzahl558 VwJwMDB1QVYcxIObD8Pju G1fJaYoYYYwZVZgR0QzgB PlRNkgM508NOfaYqB5ZXY rfqSeE5VjQTYk pWhyYgT4h4X6Ye7LCF3kf NJ6M1VkXvp8ZELitLxeLV 7ixHRaYRchPy1wuKqzyJe fHL9aIULlguty AKKidO3lFEVwkSVdyIsmU H5zHNPdojdgy370KcFyJJ G7CGUrkSGkE5CglZ8aSyY zWJZwMFVsO6Lo iSXcNObbC981OFuoTcT6Q FPnmqKuJ3LwDYYixHcxNp M0t6N5Yz5GoVWyMSMtJY7 6LZ79XW93T9Nr PjwvdGFibGU+PHRhYmxlI HdpZHRoPScxMDAlJyBzdH kvQL4dCo7vKFNkWPMjlJr oqGZzEaOqx4sh KWVjLYlrEJ3wcOvkO9Yho YM1OSCkm9y5Gz65V32zG6 JvdXA+FGQqdMF4wCX4eF0 rGqLbEkO6ASea U865MlYxlJRmGkayy2yiw 5cezDy2FjFrFUStgkXluK mpONL4g0KtTr44Y13mBHg pZHRoPSIyMCUi DNYybLqtbt6rxK2qGf6+P HLqeQA2qQN2sM4kJrDtTs L9AFabQ345RyKwfOMeIze wO04uZ0OogYK+ BBYmZxi1WJAjbDexKQ2ao NLqUCkkXh7zDDU3LkWyVw SnYYvoH8WiUKCahevvbjz ehUY5ROUzLNTi nC12Es6muZeeTe0vGPJhF RC1MWIwoNStB8NmgH5xRw WfPHGiAYRhO5IldZVhIBn bT334KSlxScN5 SNEwzoBxN9ViXMJipYyhO lL1m1O8Fe9MmOcgbJRcSE 7hXeUtPHs7V7ThSwm6DIE drWazES5iqEDe KUmvZc4egMfxrUbgBC8yP MVdcvkqb191NhOoq2fmVR UuoCRiBDyyUSO0Y95yc6Y 3DJTiLHHwIDW0 gST0sN0kbYhhadgecQJkh DsgdmVydGljYWwtYWxpZ2 41EQFijEdzAvTNRux3C1N vSzl4IENgsYhf MD4ygKWqTSwbLp0pzMygb XqvFY2qTNOxupfkq812Zz Vvh5lwJZTtgIZaUJmtKVG 6O79vn4U7NDFg QJCcLOV3zOT5gW8rpSiun jogbGVmdDsgdmVydGljYW dnFIraY040YJExzKfiPn2 XFdz4B1PaWok9 ARLvhMhfJM5htOAbBCypS o7sfDtgvDrwWZ6aNBRybl eoh563NfNdb1ybLONhlZR aSAzoJOC0B66t w1V3NZVlXTPzEFB1rYR4i C4aeTesaatsbRDsrXsubf CwxHofGAyqYGyeW935QUY vcDsnPlBheWVy OjwvdGQ+KC24lh04M6WsD bacUpl6IYNgJUC8sQM0kK 1kAPUuIAysj2D8tOH4D6C ojfFefo7ld5dq YXBz (more content not included)... Normal [facility] Coding Summary.on 12-23-2021 Coding Summary. CD:[id number]:8440798G G h0bWw+PGhlYWQ+RS7MTXT sE69txIDxcR0SH5jICC3G QLSBGHBOTH6CCQ8kcTY0P KgkR1QybbQu FjuvhQJlQM34WPe4ACP6j QxkNXiezR2vzCJjY4q7Rp QkDR70jF00TKucZSPbLoA 3LjZpbjsgbWFy P1uxNiPqtTIhCyi+PHRhY mxlIHdpZHRoPScxMDAlJy XfiHnaVK4bFw4nBFCvFHO vbGxhcHNlOiBj d5bbHLPcWQulSM0nyEbuW 8ColEZ5LVSdz1j3Mw33zP I+NAOaEPD8rOuwUFxxh62 5XtXuj2oeAHK9 iNUqTPcuGWY3R83ws3S6X DCmFNKqMLR9dMH4kH0pqY rttgwpV5ShhWLvAhT2UYX 9vGMhvL2hlEmi cxnriE2yZii+M51XNO7DO BPGOU4IDuf1N2EvGljwqO I+CR58NEGvCN52lQHniVN eb0sodJr1GoJl LTMvQFV8tDldAXsfl8DcU EDeK74nbPIks4M8HAWvsV uyrWXqOmMslWQ7fB3oTEi scstpw4gdjvgg Haqjk2prmr28rT84U88xX PnwQPPqXRX1YRQhKNHqnE lisl6exO9tHm9+RPjyd2i xd3stgCr0TiYx RONihvDxjNbzRBB3h7QbP p68U7PgvBcrt5BnWnu3ej 99rDJmm6O9aTU4FLzsZBU blJ8oRRwzNrP4 KMXuRpOsjC56cWZgEQlfV a9sdJyypVegHW3gRBLqim whGTOwmP5hIINpuXRigCh nAV5xKIQkhubf f481VpQqJZE2VGRnhZVdM 1CycO0uGhEsMYRtONCqN5 LqnQJeYUhjZ334LEcgMaV 0PPSoafGiU4Ka YRSvuRoeFjQ3m5C2Bx6Qc 1GalpykRNJ9JJgfGVV7Jd YuWuIbJbN0I7GuBow6QXL aiFtoPJ1lW8Bd ZOOeehvqtikazDG1HMRzJ WZjmQ48aJGdYPfhGc4mt0 J5p593GVYcWVHkkK16Cp0 udDogMTBwdCBU aD4wsrqvh9bwasnvEcSlI WAhABf1UPl3KGKreHjyGt VwIYX5AwR3YDH0bTDjvO5 wfDwleveibZ8z Oyc+M68huW3zDVJ0UTP8i znhZRStimFiQV71CZ35N3 RyPjwvdGFibGU+PGRpdiB ejTgeKL7wXbId m8fxp4VjUQrwW8ZlEJRdX ZspDbg3GQReEGK2wQS3cM 1cGWAeIVihf5M3dND8X8K vywJtdd0us1vz QWTsRLzoS11dwLWtf2Z6K SMegDX8MBIvlJmhHkMcnX 93Oyc+CAOkuMqty6DqTao lk9whf3dxuMp5 MrMoQNHjgwFchNokNLC7j 2NuPt56H01wNXkqCAVdUB DrSIDuAMVddRtzkx6slO3 wIi8+PGNvbCB3 uEV6mQ9xLQLoTxM5XUpvL 163IoAslFYpTvpkg7udq7 xulCh1JeFuVJQdzwEquHt iTVI5z1WfDv23 F51iENmdLPEyWONiIYGqR GKipZfgno7wuL4mCf0+PC 9rm3bwzv78bK87rMR+PHR dVUJ2kSnbPZtg HYPtzC8qZAohOcA6MRTcG yVvdB84xCHmDTmyWo5zhX gvoEkvJV7lFUBtculia71 8WiTqz4xzSADp dBUrHCraSLQ7M92zt0G3A VKoNONtKPU5uAP0cO1kqS lnbjogbGVmdDsgdmVydGl yNFdiCSfeL811 IHRvcDsnPlBhdGllbnQgT tWrXWb7I5FqByu8UNIqiY jiRT8ciARpGVxyLc2hoOg nmMqjFT8cPAEf fzaao300IeTej1muOPGqo SWxINwbALA3H06aj5B6AK DcGPFaHHM7fJL3gM5ljSi nbjogbGVmdDsg zlNflCdaMIztKXwsU555O HRvcDsnPkJpcnRoIERhdG L6BB89LG60lACpl1S1dFL 0J9XyVXJaejlf jetmePM8DLAmDFBdrX01V c1ncOfqUd4oLIVhDWS7BS BmmKGjB2UxoW2wUmVwFEJ rKSQcY8DzyGQe LJpaR816GXvdAeT5WOArz nTgW6FhKFFhnJnuKmI5h8 J6Fo6KF2E2PR56DW16oIL pr7Q6qBU8V5Wc VYMbriullopedPW9LOYdL TEqzQ99Uh3vvYscXw6oTU XrZFD3DUDmnXQqP5AquY0 yOiAjMDAwMDAw N0EtkRYlMKwjB485OBryM xY4ZZEswuDzR3VxBLYqsS ifNwT3z9T6Uo3BHOt2OV1 7MC09zOIhi2V1 fSQ0W3ToEWBgimtucgitn CK6ODOwYYMzdY38Cl9ymV rnHg2mEIGfJKX0BZKoqZC qL4RxaY6xSdWe OTCaPYNpX7KlnLYlUJnuZ 206LBvtZvZ1ZSQesbBiF3 NfTPGwgRcqJaR4m3K2Ao8 WVBNbSN30NMW0 qGF6DT79MN68Y7ReDhgtv GFibGU+PHRhYmxlIHdpZH RoPScxMDAlJyBzdHlsZT0 kTx4pRYOeQGAq nEaamMFuTiXli2vlUWKpK YihOV1irTcbC5LhkUG8YP Gwm1d3Fw65M42cY4UtcYI +ZATggVO0qVT1 hQ1hSvUzIeS0RXffA367A tBkiHFzWnzkq1jpr1dtqS z9JaV2CDWgvnZohDlyBQD 6s9OyOk06V76u IHdpZHRoPSIxNSUiIHZhb Uwpwj8opK0tHm8+PGNvbC G7qMA6wB1fJeUgNkP4QCg eJ297SiViuCCs Lopwx4lpw3pzgDy7XgTfJ RMuwtTcnIcjDIQ7z5ZeLa 44I0CchVsrj3QaSjd6ih8 5hETqd2V1aZX5 H7GtCAPeamiffVQsyTtcY B6bRDGhuajcJYNdrU7dPQ DtZ2k2UgVyBeP0MEywL6I cabT0ZFOguTZy VPewQDO4O48we6U3VBDiD BVcOTW1xAU9zU1zkJrepr ogbGVmdDsgdmVydGljYWw kKVfrF970XKQa qUvfGZLnkB9vBOWkcHAmk ItaDF4hKDWhujjnMfWXOT 2AGOPmQOlVDSVHOTV5H5Q xKze7DNHhjPda BN6leELhBCbtQu7hlOjlu OyyQL3sIXDzjjpxXBQzxJ 5lRBRwlOAymIpqXU0dEKA xtkwey943UuRp NVR1HPZmfNSpC5AcdN6pA zIfTHBhOMCxZ8StmLRnEB epH522JYluAaE4VSAiylH eP7IoMHUrsKaj ZpC2v2G3Ix3xYS3yZS0wQ KPiZF26PZ98kIMgq0Z1eE L6P8KrVMLvfgalyjdxpSA 7QQIeOQDinM77 vAJeWDgsZn1ey4C3v189Z SUvZRIivW93As6kkMpfRV WbzAKSxO5smordj2spvep gIzAwMDAwMDt0 KUr8NBTagFgkZxIfBWT7L kA6GKN0lRCyeY0hwLjbzc lrqM4gQvw+NTkgWWVhcnM 1Z9NrMpp1DMJp oXhdTW5loJMiKAufCw5bg EcqwRzvEB2cCIGdovhcXO NgsM4xJIEgyYXwrVtzOH0 kPIAofmhvc881 YwGrWAI1XSAeqWKaJ2Hrv M9mApShGMIgDBZiD0InrL NnIHzlN883NJggBqT4KOJ mpjDsK4VkMXKr wUukFfO6k2O7Qk7HWY1yv UK1R4KzXtm0LNTjqMtnEC 6eqAGsADwaAt8jjObjgUh tRY2lSQBgtpnr XFZbiG0kJYKeqOIjyZfyG C5tHCYrfbgxh609ByLtYJ U1NFGwjEWhS8JvpF9nTtS hQHHyYWUlZ7Dv yUAuBGerS351IGisTzH6K KRjpdLgL9CeKEEtvMgoIp K1a0M5Xl3PaVGoUHYuLW1 5HY46JR37E3Qe PjwvdGFibGU+PHRhYmxlI HdpZHRoPScxMDAlJyBzdH hoOE7sOe1tKGSoNFJklLm btPCvSpRbh1ev AKLyWNeqZP6bnUlwT0Rrm ZX4OFYlt3t8Xm43D68dL0 JvdXA+OCYfxHM0hMQ0aR6 iInKnLnO8RJbt Z523CgFvbWPdVsuuw6wgw 2ipkGd2PcUkEIZlqgQbzK crBHM0h5WlJo90E32cQLb pZHRoPSIyMCUi EWBdvRhowh5zlQ4mDy4+P ZBavJM5wRZ9yN5sEfIyAm O6HEasZ856BsIjvCOyPjt kW02eM5VfvBZ+ LSPuZoy5YQWesTkkYB7tv VRxCCojXc1qACJ3QyMcWp NmHFmbS2KyPSCdwttpqsa qpHN9XQUhQGXt bT45Ca3ujXsdDv8nPRQwZ CX6OKOycQKaR2VxdX7lRv EiOLPkTEWzC2FfiCAvZDf pY374XCcyUrU5 RMYliqRqZ4FoIJAijUhcH kS2p3R1Li5CtMdvoUEdCX 9aNjIoBXy1A1BzAsb5UYK cwGtxQH0ioBFi URrwGv0qbPwomJurSU2rM NFnwsmfm059SmUho5wiFO QvtFXmTBekECS1V56rv6D 7SNWzFCHxIGV4 dAR6qE8smMblgsvnwHRro DsgdmVydGljYWwtYWxpZ2 79COWruDybPfZQQvs7E5A wNha0XEWpjWkn NS2xwDRwLSnyZo5qmTqnc CefPF0eINFokbmuh008Ls Acc2pkKNHeyPVhSRmcSQR 1G49nc6Y3DNKe MHUhBDC5nEC0gC3lvPjad jogbGVmdDsgdmVydGljYW wnYOizD439GBWysCgwGm6 OXns1L2EaHuq2 OMKpbNvzJR8oeWHxKJdrC k2sfYnuaTeoWJ6bMQTydp zpp779DvBye0vrZUKchHK sZLtqPNT2O84q v3F7TSCuJHWxEJU3iEI6x C2xiQwsqpwrkCWvhGusej MzhSuoUDgvTBihU392THL vcDsnPlBheWVy OjwvdGQ+LJ82th04I7LiF fqjGow2WWCwJMV5tFI4qR 0kWHJxCNbjz4G1nRS6L8V hiyGhka9al5zd YXBz (more content not included)... Normal [facility] XR Spine Cervical 2 or 3 Vie [...] M.D. Transcribed by: CAITY Technologist: MARY BETH [facility] Consent for Treatmenton 12-04 Consent for Treatment [id number]# 1.00CD:127 [facility] Consent for Treatment [id number]#1 .00CD:127 [facility] Consultation Noteon 12-21-19 Consultation Note Patient: [...] has, # 60 tab(s), Refills(s) 0, Pharmacy: [facility]/pharmacy #[id number], 166.8, cm, 10/11/21 14:46:00 EST, [...] Oral, Daily, Prophylaxis fluticasone 0.05 mg/inh Nasal Butner: 1 spray(s), Nasal, Daily, Refill(s) 0, Allergy [...] list: All Problems Palpitations / SNOMED CT 005899031 / Confirmed 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 / Confirmed Hypertension / SNOMED CT 1356021346 / Confirmed Anxiety / SNOMED CT 15008327 / Confirmed Lumbar disc disease / SNOMED CT 7295207555 / Confirmed Lumbar radiculopathy / SNOMED CT 336505142 / Confirmed Chronic gastritis / SNOMED CT 26526168 / Confirmed Migraines / SNOMED CT 42182887 / Confirmed Insomnia / SNOMED CT 089624808 / Confirmed Colon polyp / SNOMED CT 915206073 / Confirmed Chronic leg pain / SNOMED CT 642610758 / Confirmed Laxative abuse / SNOMED CT 621543802 / Confirmed Chronic cluster headache / SNOMED CT 876691131 / Confirmed Vitamin D deficiency / SNOMED CT 07165906 / Confirmed Hyperlipemia / SNOMED CT 24070195 / Confirmed Osteoporosis / SNOMED CT 880935818 / Confirmed 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 Normal [facility] Comment on above: Result Comment: Elec tronically Signed By: Sophy Rush PA-C\.br\Date and Time Signed: 12/20/21 12:48 EDT\.br\Electronically Co-Signed By: Derick Meza MD\.br\Date and Time Co-Signed: 12/27/21 07:59 EDT Office/Clinic Note-Physician on 12-20-2021 Office/Clinic Note-Physician [id number]# 1.00CD:127 [facility] Orders Officeon 12-20-2021 Orders Office [id number]# 1.00CD:127 [facility] Physician Orderon 12-20-2021 Physician Order [id number]#1 .00CD:127 [facility] Coding Summary.on 11-09-2021 Coding Summary. CD:[id number]:[id number] G h0bWw+PGhlYWQ+VA3JFTO bM66fmGHogQ3MP4yMNW7L THWTPFDKZZ8OHS9qmAE6M SueM8IckdWx GbxgkSSlUW45PTk8WKA0h ImdPOmvmV0mpVCrC6q4Ng SvKL92oV35TChiGLYvMjG 3LjZpbjsgbWFy T6yaJgTwwVZeQte+PHRhY mxlIHdpZHRoPScxMDAlJy ItgHuqNL0rSl3sJPWbYTW vbGxhcHNlOiBj w4atPSMeEOwdXZ9xtKdbD 8WjgZQ0TWUwa7p3Mh92hY I+CAEgZYS1pPcgTUkhx19 9NeRpe7fqAPO9 zFUcRYeuRKF9G32ji8F4E AMgQEHhHRQ0iBX8wJ4egW hbomydR6IccLMvXhM7BUN 0fDZyyP2wwXze bizpkL8wJsr+E64BXH0HE TJWVG6YPdl8C8NrUjlpxS I+IW50UUAbRU26lWZlpFB sg7cbjIj7BmSj LUMcQUK2lNmsUXgsm4SjA ZThO63ihZRgn0O8QEBclX rvaELoVkHklRF3zE7gTWs fyvtaa1nszfll Kdkrb9vdgv52xF30Q38dR TpjJIIdGCS0AZDoZOXpzB cwwt8rqI9bBn1+KRrdr9r jz8wnuNo5VlMa EOAeguGooVhkRKO4k7LhI z05Y7LwzIjqg5BnMhw2xm 12gMPhp5K2hHG0HMmkAOC edW8zIXhzTnT9 HUFxWaWxkA66pOIaQEamE m2xzBuzeTzcJI3qGQQlyr ntMBYzqW7hYYAomAOnjMr fEH1sWTKhduhm d835JcYxHUK5TLPwvQFsX 9JriP9wFiWdIKAqOJXcL3 GeyKXrURmhN597YIthJlE 7KPPdlxKoH8Ts STTzfOcfNzA1r6J4Km8Kg 6HekgdoFSZ3KJxzHII8Ca A2KtVwSuJ6U5NyXnl9TGE ilHovKA0eT6Kp FUWvyumqgqdkyAE4BBQeN YKygX52sGHeWQtkBo9be2 U4u386PUNoJDJlrF07Es4 udDogMTBwdCBU sG6ndazmm3zunqqaNvJqD QRtKGy5ROx7SXCdkUbcDo QpZVT7PeD7WFT6qVJcfQ4 cqPqccwwruJ2v Oyc+N67mkC1tIZR7LNV1e nbvAHTkzaElIS46CX18N3 RyPjwvdGFibGU+PGRpdiB qtYfaKX2mTdVs b5rvk8WmHCasS8AyRCPnF YliQjc7XRHoION4hDJ3gW 4lMPJfGCeqd3A1mHZ1K1C usbYkgr7yw9jt FCYlYNabT61zfHJcd9O9U VYsfBT4JZQacBpbQqZrbU 93Oyc+IYFreDsoh4DjZuv ca3esz1hqeZq7 IpQnIZXyutTluBzmJKQ0g 0TnOj21H46uULcwXEYcKL UqNCQnHBQqxIgdkn2ctG0 wIi8+PGNvbCB3 hTO4oV4fQRFxXzF9TOrqI 274QjUacOMlEghbj6uuc4 rxaUe2BhVyAAPoqdCksNp eKAK7f4SwTj53 B63qHQjiSYIoERStCKIcV FZmbUjrkk3ccL9gXz9+PC 9ut1bsyp89dV73gJY+PHR wVXE1uThkBIco ZXXuwS9fBHvoZbX2ANXzF fCzgH47nFIjRZjaDx0dsA bbgFlfOX9qGMZgjjvjo84 5CgXpg9bjWCUj hHIpHKmmNJP8V68vt5O9G TIiWVVqWKT1wLF2qV5gjI lnbjogbGVmdDsgdmVydGl pDRexOTltO562 IHRvcDsnPlBhdGllbnQgT kRtNEj1U6IcRyq2SWBqqY bxSS3dgJCaRUsqKa6xuDq glRzfIF1pVLPe mgkar515SiDil3zxRVUin PHlPZwbBXA0D15ue4A0WK GjHZWkDHE6vTY6aI2eiVl nbjogbGVmdDsg ubVqmUxzGZsbBArdN241V HRvcDsnPkJpcnRoIERhdG H0EO93MX54bCGpe2U0xZX 9Q8DeJOSrtlxj rintzVV4YFYeYOWjaM37T u5lhWxeEy0hXLReLUO6VD RhuQXvB5LqdV1tTzQdUSF bOQBhR0VpdYXd KMvtD723RKquIdD9QVSrr xOxQ3EoNOTbmGpwLpG5b3 K6Mw7JM8P7HR82QL38hQG cv3X6ySO7A3Vg JMSfrsdpznpkeKZ9LKGhH XFfeJ20Or0ivOafEa9kBO KaMKS1QMQpcQJrI6ZikG2 yOiAjMDAwMDAw W1RckQEvXBibE108FEkrZ nQ5PWWntnBsW7RpNPDnbS nhRzX8e7Q4Mq8EFYs5ZG6 8GM94bTWht2H3 fNK9C6GxHSSqqqheporjm YK8DOFoPEZutX72Ao5raF atRe6tFQTbAQR0ADHmcDJ rQ0NfxF5sRkBa EYWlTKNxP1EciNGhRGpdD 081HNzkYjX6BDMbbmSvC8 JbQZLwnZzbOzS3a5T1Ct1 MKYBvPU08VNC7 gAN6AE48FS67B0UbKqtvq GFibGU+PHRhYmxlIHdpZH RoPScxMDAlJyBzdHlsZT0 gKr9fXXEjLHTc kPrkcLUgFaGpp9cfTNGtB XppFT3uwJutX2CykFH4MK Eho6g2Mm21T57zF9JfoJG +OYAfsXS8rYG8 uB1yQhHoUdL5GAubF714N uUjbXXiIwrug8vph1yrqP c6FkO6YLTrbrJhqTsyGRK 6z6CoCt82P12a IHdpZHRoPSIxNSUiIHZhb Cpfez0yhI6gGm4+PGNvbC K0oLT2oI3bXgFiLpO3VHr aT786TsUazAFu Klhkr3isq7ucoQz1MyPeS WLthwSgnMfbAGV0n4HhKq 06A2UfmDkoz5MsClg5vh4 6vUAal7Y9sFE0 B4IfDCOnlpqmwRKmkIqvH F7tQMHbemxdWDAowI5eFP JtY5y1EdXpUnW0YFhaI1A tusV4OQYnpCDi IAzfVUV3V37hi9G9TKZpL WEnQNB1eAN6xE8icWenri ogbGVmdDsgdmVydGljYWw aKGkoA263PSKm nHpzUTPivY1nTWBarMWid BkaFS0xLZRusgobAyDNBV 6NLMSdYMnULPIETER0X8O cJhi0UZJwuChn IT5egXSrEMfjQm0veNmld EoxRE2qJFEfkrheJUGvpF 0gCONnjYYydCqpMS8iITT dvgyfh797HpNn UML0FUHnhCSbE7VamH7vX pBkUKDlCZGtO0CxeOAxHZ pgD720BXsjAnH2YMXjtmE mO3VxWXMynNxg JyT8g2S3Cq0xRS2oQA3gE NGqIK63MS96tSIdp1D3qK W6O8PqTZJxdqzizmrbuBG 1RRBvVVDtfF41 mCSkLPnvCa4gn5R3s967T JUrYFEccF91Rg0xmJxgDL UwiPCDtO8xsdtby7visvu gIzAwMDAwMDt0 SWu8DVJbxSfyHuQyUAU5O jM3JGJ0dLAzyY7evZaovp obgB2gPht+NTkgWWVhcnM 6H2WqUbd2CKIc xUiuMJ5azHEjPNwiJl9ba BiufAxdEM2dDRGottjxHU IleO2cJJBryNIoaCfnJR1 hUIEhscmoc852 DdLiPYU0FQGrtARzJ9Qnz P5jBrPeQXEfOLEtY6OrdP BdHWbjP860HItoAcO0XXT dnfIeI5LeRBWp vHgvIhD1z1Z2Sr9DTE3zk SM6F7NtNvl1RXJwzRnsCT 0srWNxXKstTe0vvUtitGs oGE9qPYMkyhgn LDRpbZ8bELEgaEIqrIccU B2kEMLpvwntv987ImWmOC Q7ORRltAIjD3GmvO7tKdG gJEAqDRKyL5Ua nSLvSGpkI608AMsvUjN1G EHlpiEgW1UjHNWcdPhmZp C5b6Y5Uh3XiOCsLOTgQC8 4MF72DQ28T3No PjwvdGFibGU+PHRhYmxlI HdpZHRoPScxMDAlJyBzdH nzAE9kYv2wTOEzOUMgaRu heEZqGnIys9jv IRPdSBkmER4lhYedE2Lau WC4MLWkt0b1Fm70Q05dL9 JvdXA+CIEllZV9kOI7aS0 bMoSjKfV0TVbl D347ApGxhOEaHltbz0zwp 9phoZe9WlYwULUyhwOguA iiOSW6i3IxKs91T76kUGj pZHRoPSIyMCUi BHQapXakxv8dsW3xNq1+P AVfzUA5sTB6gM0sIaTtCm X0PCnsB926WzVukMDfQfc pT19vQ9QfeOK+ ABSqIza2MFJizBfvJF1vk UIvAFvbUb4jFGV5EiWmPa OpSRhhW1LgTDYojewsrgf afFP3IMBxJDLe fB01Re7oyBwjUz9bPNZtE YB8GHIiyTEyE0RrlD4iVq GpTZGwPHIiZ3UyhMHqMBm jO377NStiJlU1 SGStyaOxV8UqESWgxKutH rW4u5S0Jh9EmZpwdETaBU 1eGyKgVYz5W2IsFed2RVT zrMkkHY2duWPo RQmsVc5kkSbqgVssQN2xI QAxtnegz570ZaWnv2tuIE TyjAPxXOofHZY1I33xk9O 1BZWsNOLlRTG6 wML0wW6bsOfcoivcdJAvw DsgdmVydGljYWwtYWxpZ2 59WYAjyDzgDoRTAun6P9C kMnx8HWFvzPcp JS6xnZGcQBqyZj6zbZwek LhhOA2xJLQvisblw034Rq Jer4peGIWluXUyRBbvOOU 8B16va5J7LMFc XSFqNEO5nNC0bO6djMblp jogbGVmdDsgdmVydGljYW snJFicL392PJCokGmhYn9 SYnc1O5ZzTja6 IGCdwEcnFL4psWYsUMllV g9cqBgycRqwUR8yGRMpns nwm109SnBie1xkTVLilVH xUSocQDM4D45b a5B1JKEdPCWlMVW3cNF0m H5mrDxohyogoIMlfOftza UorQfrOZycVIulM157HCV vcDsnPlBheWVy OjwvdGQ+XH78kc20E6QoC rgvPxp7RJYuJSE4zFD0jF 7lRNRhLQsix1T1cIA6Y5X jpvGnjc3dx6sn YXBz (more content not included)... Normal [facility] Coding Summary. CD:[id number]:[id number] G h0bWw+PGhlYWQ+KQ3DAKJ rV64fiWYlfN4IW2bABU9P IYTAKIIDMA1IKU8kpGH2P EjzJ6MoywCr TeepvKWvJF53RFy5END5q GguSJnrsN1rtIJoD7u6Gf JmWU45gZ42ZDecZDKkAkK 3LjZpbjsgbWFy T0mxSoXghBJlAtw+PHRhY mxlIHdpZHRoPScxMDAlJy RjwSzlZG6rPh2nGIIgYYP vbGxhcHNlOiBj z1utVACzXBreOG4jvHmoQ 8WoaPO1CVSzd5l5Am86iL I+PTXfGPR6nUszVAuji77 1OvEuv1tnBQB5 jEMjAWbhITD6S29nj1F5F NIiUJUrBIS0vCS8vW5zkA kqlnegX2SzlUEoTbO4KVP 8mFBmqW2zsGvq yrjpbZ5yPol+J55TZM9FL ITROI4TAmi3U5UkEkbekZ I+AJ92BIGdZU63nEFrmKP hg0fgqOz5WoLd RXEtFYH3jWbrBUczp3RdI HCkN34gvXLfi3R5JYYevR zktQImOvBmrOY9rL4cVXb nnbozc0xqhlav Ufyej4igym92sB17S80wH VnxMVMkHCV8GMYxIEQzaD oudx1dwS1jVg4+TDjje5p uu2qzuBy0UyNq NMJwemWpvAyfNWZ3l4FpL u83D2YhnPjjm3CuEzi7ts 48wLGcu0F4eOP9PFogAXO jzM8dRAsvPhL2 XBJpInXllU44zUBpVOlxU x6jaWwljXxgUZ0vFSCevu rmIGImdJ4nKZXgnRXlzOq sZB7gBOPyxlqt a371PwRaNJM6QRGdtNZsT 9NhhY1iRrZjZPZfMUAoH7 QtsPRqTFwlZ153JTgpDhL 8OKMonhYaQ0Nk XEPiyCivFzR7z6K2Hl9Nz 5IjdqdxNDL1EKkqHMF7Nh Y1UyGeSrY4F1OlHwa4WNL zpSpfDU7lK1Sn XFIhkkuzhozplKK6ZZVlU IXksV09eWNvYYnsVb5vx0 F5t370CWMbWBHvvT99Fg6 udDogMTBwdCBU lR3ubtztw8mbyxbyXjMlY RPfCOt6JRc2XMRduVdgLs OaPDJ8MbF9DTN9fZIrdI7 ybAaegzztxV1y Oyc+L30pxV3uPXB3SDQ4d vvvCSXgehStIC32KQ17T3 RyPjwvdGFibGU+PGRpdiB ymDsxDJ0xTuBf q1bhk0LeBNkcZ8YoMRUyW BhzLnc3HLUfHYK7dPV9oY 8nEFJiIFavm7L3oBJ2G5M gzjHipo8rb8pf XOTuDLdkX03ceWMjn9X0Y IOyiWK9EZLwrPgaNpCmaB 93Oyc+UPHjdPwsq6GkIyt ie2hac3owvGn5 EgVgKFMzvaXrxNbsEMK4m 6QaOb44D01qGMpnAWYqHT RgDXBbUPRfyPhseg7haY7 wIi8+PGNvbCB3 lUX9dB9cBGCjWyD3NZviF 736VyDonRHcJvacf6zii9 ddoUz9FaBjOIBzfwVozLz gZOC5c4YlFw55 C21mKLhrWNOvCPKoLQXvO XSteEanjg3unM6lCv0+PC 5de8zmlq25wG68pEW+PHR jDUQ8kUmkZOkm MXHmjB5jMWixAuG8GMGtI yTbfZ40gAItKLhzDv2qpZ tdhPtbVT8vCWQcgrcdt70 0BlJvs0ncCTAe iTHaQAkmQRN6S39jn2S2E VLgQWRtMMV1eFX7pZ6vpK lnbjogbGVmdDsgdmVydGl lSLzdVOhqE119 IHRvcDsnPlBhdGllbnQgT mCiGHf0G4GjYbg4RGTffH ixME2wzCRzJVleCr1buZl mqVedTJ1jSBZt rjhiu014BrRsb4inNPYqt MIpUKgbLOZ3M72jh3A5YS XlRLAlOIS5nPF7lF1feMe nbjogbGVmdDsg sxWqdMzuPYqvYNzgM893S HRvcDsnPkJpcnRoIERhdG S4SZ28FB85iMKcv8H2gDG 1V1QkWBYzpzyd qswmeTQ7LEEbNKMbaG02Y b8baCeaZx3tTLTcXDH0SU BcqYBhF6EorI2vYuEsBKU dJNIsS7NtxUBh GIlgV838JDcrPpV8YBKsa aGgX0HxTAGpkYcpIoP7q7 F1Xa0RZ5F4CA07CH65bHK kp0C5nMY3M1Ju NTYdkjwbbbborJC5SLFeI SZhxJ21Uo1rxZhjXf9kWZ GgBUS8HBNewQSbV5UyjH7 yOiAjMDAwMDAw P8BptTJcOJsoU194RUihN zF4PEJdimKmN9MoESZifZ gtZzJ6a5Z8Vd1BVYx4BN2 8DK35fRQhx9R7 iDO8G3WuWDCazpufgnaws JC4FFCgBUDcjR45Gj6chY hzHs5eRJPbETY9CRKmuIM pM8RphS9oSrQz FNSfQIFdS8UxtVNzZFesT 313SObeWjH9BNPkunOuW4 EbSCVncAusXiI4f3Q0Gh4 TJVHfOO40MIH4 qVT9CG64YN01K8JbYkzow GFibGU+PHRhYmxlIHdpZH RoPScxMDAlJyBzdHlsZT0 lGk4rLJNeIGAx wItxpLWuDdOub8hmJCSvM PxaSK9fuFiaC4RzwTI3GS Oep5f2Uz63I64dI5AeiBQ +DXEurUK9uHC4 kD5pOhDbCeA6OBgrV041F vXfdRMxDtbxt1jxg6noiM d8JrN6RUOlokJbfGnaJTA 4s8SrSr53E76n IHdpZHRoPSIxNSUiIHZhb Hyjhj3teW4fQl3+PGNvbC W9mXV8qG3qTrHlAwG1EBw sE181VnFkqWCh Glgsp8mcc7cxrFe8QeXgS BFlctJtoZcrUPO7v4UtBc 55T6QcmOrbq7ElBfo5pu9 9vUIoo0Y2nZK3 S0AnBEJhsiplaPGatLrlV Y0xFUYcvricSTWhiI5vKF XfS0d6GcVbPvY3MBkwM4U omjQ3WTGcmKGc ZQrrREJ6V44iq1Q9TGYbV UCcWHO2cFI5gC0xxQpnzs ogbGVmdDsgdmVydGljYWw sTFvxH392DGAs gTiiBJGdwX4yAMIchXEkh ImlPQ6yZWHwuuxhOsKUSX 0GIIPwQPzEVRCQNMB7Y5O nMze4WIZjdHmd FQ9joYFdETbvJq0ibUgen LzbFS6nEABtpsunWTLsuK 9lMCJzgWDlrHonKR4jTQX nsqhyo796BgHy IYY0FUKyaVEnP5QlfT8xQ zTlVXWjRDRsQ3VbjDNsCU bbA504TBmpLxC1GGVbekH tQ9UcIFJojKzh VxQ1j6J7Kc3iHO4oHO2dY ZNiZF12NU22cTHld5R9dB T5B7GoBMXcrusixyqnpZW 6RISwHDWloP90 hWVwFSngGj0by3D2b241D UJaOYTdaN04Lo4wtHmvLT WbcXOFhQ8uoyzrc8pyami gIzAwMDAwMDt0 RLy1CKFnmQniEcIaNID5H iO6XAU7mJMviK6ulWjsbn rcwB4iIxs+NTkgWWVhcnM 4F8UxVsb9TVAq oEwnTB2olNSfZBwfEt3ez KelnGxpDC1fZWEbslwqZD KksH1zARTtyZHaqJrzHG4 jIUErmabhe184 YvEwLTU1EJPbyPErH3Uay J8cOmYjIELlSMAzO4IezD UxWQxdH794AMjwNoF9LKC wnvDhT7VqEASd xSozRuB8l7M6Sc9HMS1ga BA1U4OfExr5FKIikObjNN 8ypENdSRtiUb4hbZoyoCb oHS9gHZKehcck TETdqF5kGUBtgJKjdGewD B7pEUAzobcsr318BfCwGD T5NHXaiGIpE4YgdX9pBfA kVMDyORCcD3Ed gLGsZBxxH218QTxlTsS6B XNfqlHlF0WxGYVllSepDa P3n9Q2Gc8HwQKyZMKyYS2 1KM86VU52D8Pi PjwvdGFibGU+PHRhYmxlI HdpZHRoPScxMDAlJyBzdH lfEM3nPc6uBDQiCZQqwQl zvPJlMoFgd1bj SPQrVCfmWC9dgTbgL0Ujy BO0MDOpz3g1Fk58E95mB8 JvdXA+PXYzaCC0eCI9sO0 jQlUrUtK5YGjc H937QlXsvUAvMztpd3unv 6yosGb1DiEuUYTnjhGwmK bvXPD3q1ClNf10E51jHUi pZHRoPSIyMCUi KFVwwJygrq4qoE8wDc8+P GKnxQJ8eMC5jA4aKwWlIq J0ZRwkY649RhKikTTcZpq pG40tX2XyyFJ+ ASGbGud8YJSbqEysTP7mt IMeTDdkVv9rJCD5KhTnBv VsYFgcC9TzMUBeeozsjwh ziRZ4TIWhYVZs iN59Ue3bnJsoMo4zZOZrF OS4FFZggBSbR7YxbW4wAk IfOUMaHBZrA4WbjTGeCWe yQ642XAkcEqY6 OEWbcqMsV9VnFGQipUwgF yX8l4A7Pe8JmVdhuZQbEE 1wYpXaBTv3V8KkWse3PYC yvEvoUT2cyYDq DDfyIp8vwWiknAqjNI4xR YYrzovot266EjQfv3ixEA QkmPMtAMfnUYB3Z90dx1S 8AWLfUUWeURV0 rWD7oU3ihRgdlrakzLOsw DsgdmVydGljYWwtYWxpZ2 77WHWyuDpcUqINDtn1B7J rEbr0RVOsaFar EQ1hePUmSYhsZv8xnUltt KdlTY9yEIWeswlxc433Zl Qpj6btBNOabREdWTwjSHR 4P94yz6B1AUCi SYGzTGZ6kNB3mO8nzAbsw jogbGVmdDsgdmVydGljYW viNJeqL584YCDudIzlSz3 QMhj9P0NsOzo5 UOUhaKqkLY3yhAIgRNicY b8elNiswYswNC6nMJSnis zqt114IoZya1woOTHouWO dFGucRQN8G66o y2P4BPUaRBAvHJW9hNY6k W0yrFvcufuweBLdcLdite AnaOiiDYtqVWddS863BGJ vcDsnPlBheWVy OjwvdGQ+KE75nb27S4PhP jixQkc1MHRzESC1xWB4fV 4qMTFgDDywc4P3cQR2H0Z ewwSxib0jj4jm YXBz (more content not included)... [facility] Coding Summary.on 11-01-2021 Coding Summary. CD:[id number]:[id number] G h0bWw+PGhlYWQ+UP1HCTA iC87skCAynH3LF4rAGU4U VDLUHYOCTD0WTX9tqFY6H HxpS9PjzjTd XizuuHRyYE75OPm4ZUT8q DmeNQvrgB1qiKBiN6g2Jn ZjTV58nR85ROzkUIOyJkY 3LjZpbjsgbWFy O7gpItHjdRTaUiw+PHRhY mxlIHdpZHRoPScxMDAlJy QzvGhgRW8qEn2lPEJkNGD vbGxhcHNlOiBj x7eoWGJoTVlzOX3mnVgdC 5NrhMD7LBUih0v5Mt75lK I+APXzWNJ2bKqiIGfzm44 4TxSdg6adJZV9 vSEwBPbxZAR0A29ak4W3Z QZcZTYxNEY5sWX0bA7gaC xfdoioN4AenUJjGtT8QGN 6pOOwzO2nqBrx chfoaX9cYhk+F92TNL6WA OIYWT2BThc3J4TfPsvriD I+CH93EYUuOI52fZZqnZR mz7ovpIq3YuLf ITPaYSJ2hMxaZFmmc8DeK TSdG96oiIJqg8F9ODNsbM pugACoCyYrlRV1iN7gXVd hrqpad7qsmhmu Fxunv9bxkz57jO20B37rQ SnuPPZiQVM0KJWyJYRfmY ikbi3rtR8yZb7+QWjys1t lj9jscOp1OzKk VPUgeiTgfLxuEFH7o7VgX w81Y0ExiObfi0OsMkb9ur 62bYVkl6W2hZQ6PNxeXIX tzW7pSVggZmK5 OOTjCjYxtN01wACkUGyjL m6jnAacxPgnUQ9cLGUfep qvHAEpjM7gZZKymRGhlVs aEP3gUYZvotnh z769NeUqESE1DRNxrYNkB 4RimS8hCiJlVLQgRYZfN9 UwcPSnATlfK961HZzrEpY 2HYVzoeZzR4Hf YPKjtFqbGbM8o7T3Sq6Dc 1FsqxxyGDA9RBduFLCeIu I3JfBbDiG0L0ZjIqw5DYS wmWegOG2jD5Db YAFdvzezmjifhPU3ALGuF CEnvC28eKItOLrjLq8kv8 R7w896ORMkLTRutF45Se6 udDogMTBwdCBU pH7bctuly8wfrpsgTcJyN YKwOLa7BGu6CGQwbRtyKp GbEZB8SzT6EJJ1nOXeyN3 ucGvmhxiprW9p Oyc+Q02hfC6zKDW9RPW8g naxBUDtaaWbQZ02ZP96W0 RyPjwvdGFibGU+PGRpdiB rnFnmWG2yThRc g0ity3FrUTviB6SqGBGvI KlgCce0YZLdCXL0vUX2yZ 4sNFKoWCbgm1K9qLP2Z4E gzlWvgs9mq2yh VPNlAChgQ67mlCYch9C2P VOnwPH3AVDuoBynDrGtoR 93Oyc+QCWdgIdsa1DiDxi pt0wxl3lqjIy8 FrIiKHAmrmXzvGpgUFC3u 3UqDq70J45pVTljBRQpDP CwPQKlVTXnfKfynq1bzU9 wIi8+PGNvbCB3 nZC0uY1nECLcOlV2UItcK 061PlGdxSZkLxbww7jnx1 vipQe9JcBnLFXqfwAegIi qEGE0m1FmOi38 G41rFMamEEHfMIWwFKLbB NPmgGucch5fnJ5iOe6+PC 1rr7berf73kH69bSN+PHR aPLJ3dXciWWrk YZBciR6qTOyyKhV1OOCiN jYdwD09eVMgBNkgOk2gnZ imnTthVN2oWMFewodqx33 5FdHfu9cpEOSb zJOsVHdwGUK3O54nk7K8X AUkIANgWTP1sRM1eJ5bhE lnbjogbGVmdDsgdmVydGl yNFggWBbwP199 IHRvcDsnPlBhdGllbnQgT pApCLv3Y9KlOvo9RSEgpG ueHM1eyWHvFPmsJm2gpDh yoUxwSA5oVXHu clnuk291NxWtw6uwUQLeb YPnQFvbUQW5J67ot9W8EP SaKFJePPK2kUK1eC7gwBw nbjogbGVmdDsg srNijEbyLZnyQCitL415P HRvcDsnPkJpcnRoIERhdG X8TF76CG72nAOkf7A6bNL 6V8PmCAHtbdto zhbgtCM3XRWiJIOwvU27B g8fpGbpOk1yRUZmGYN9UY QvgUOzH9UlvJ0kZkTvISB cDWJsA7PndLOq HMgbQ801AYmrFhE5MBOxd eEqM1MzEBEauOkgVnK2o5 C5Xy7HS6P5DV83GF32cEC fg9R7xHG1C7Mt WCBdglapvszpdFX4RYUxK WEtqD21Cu1pgGzeQa4hSU UqTDB9YNCdwWOaL1AytV8 yOiAjMDAwMDAw K4YsfHUfQOsuY723PHnkT gC3CCVutjJbV9VaYJPtjH rpBmR8u3M0Gw2QEHp5FO7 5DB50jQKja1K8 dBG4J0FaHQRxocasfhgoy KH5ISWcPVDvwB27Yb1buW vzXd7oVMMvPUV4IIYozYO fJ8HwoY9pBgAu LLUhYVGvJ7GhePYmGFcpX 485IUhlIwF1KYRzdpHzT8 RqDECqeYknMxO4b8P8Nj2 GUSDjCB06BOC2 fTZ4EG29JM75H4XlKxprx GFibGU+PHRhYmxlIHdpZH RoPScxMDAlJyBzdHlsZT0 nWk9eMVRrWNFq iVeeqAFlMuUlt6eqUGKfY LhsYG4etTeeJ2DkzSY9NN Cbb6y4Cm95Z14jH4MifST +BXSkcXW0iYU8 xQ3aElQzEnJ9BUkzY219N rFvaMXxFksye9mqf1cokQ g1XdE5BUTkylVeeGvvQVI 4z3NqOg13I26r IHdpZHRoPSIxNSUiIHZhb Ekpav3rbZ5xFc0+PGNvbC Y3uHM3eC6lNcViKmO5ZYx tN418ArDykZNv Jvqyk2plg6upsDr9BeMkL WKqlgQqlMzcUOX5t0RlAs 03L0OwiRhev9FsQkd1bw0 5aTXuy1X4aRN5 B7JxOSVmjynfdAIlhTcoP Q2lJPEbjpshEJKeaF5lLU ZcZ1m0KuXcBqW8YOnjU9P rwgU8CHHzyEQi MZivVHI2U10jw1J3NFUmV FQzNTS1kGV3zH6ivRtpxa ogbGVmdDsgdmVydGljYWw mMDkpG088QZXa yLfpZMLwaY5oCGPhuEOhi UfeYN8xCKPigpatBaVKVR 8UTRVsVTlSBUGQBRE9W4L rLxw5QPUiuAwc TM9svWCgNPvxUa5sqGjlg FqeQU6tUFAhwjbiXUSzkH 7hISIxjKFawUuwZF5uIAC pivesf876VlEs BXG3CNZrkWQcF6PnfU6iF cEoKDGsNGGcG3VahBAtSD drR632NFegOrG8DKWhgwS yC4KvSSXovVnv NkE1n8Q2Un3uAY6pMF6lG ZPjAG63BV96bGTkz5K2vZ D9F2LyKMQjwusgnpnwzQS 9AFXbANUluC05 sMJeNAbsGo4gw4B2f165I RJhCGSodG92Gs5sbVxiGE VhcZZYpY9kguvzb0tuzhh gIzAwMDAwMDt0 ATg1SFCrkHmoOwXoMCN9Q vG6DDN4mTWvuE2pcSpsqy qzxW6uSoy+NTkgWWVhcnM 1D7YfUxq2PPEn nRkoMR4jvINtOYvkZg1mu TnmpCaiZZ6uNRIcqjigUY KuqE6pRGCltFZkeZdpTP6 uHFZntmttu689 XhRyEPX7RBDccUUxF2Gah H1iOoBdDGYhPVTzO0KiwA FvOIguI495KDrwGiF3YAN sliUhX9IzSSMr rNzpLbJ1f5V1Zo7UGH3zs BX7O0NiBdj8FSCjyHxuWS 4xdMGxEMwlLu8ahZbusLw sVO9nFDPvmope NATegT1tLGVvkUMisNsuY P5nFQRphtydt456UlGmQR C7YJZtfLGzR5RywM9fVwE rOLEtIHZxJ0Bv nKSuANkhJ742VBuzEfS5C DQsqxDcJ6MyGSTboBopMe C7l9C4Ka0KfGXgCTZrTW3 3YE68EM77I0Mg PjwvdGFibGU+PHRhYmxlI HdpZHRoPScxMDAlJyBzdH jnCU0hWi1xMHLvGLGknHf yoVNkEiBjh9xs SEZaZOpbOF2dyYfwJ4Pzs EO6VNPbc3w7Nt99M00iH0 JvdXA+JPBpvXE8jJZ4bC6 qNuErUaN4JUke Q240SxLoeDXbEfajs2ixj 6zorMz0BrHtWSAeczHnyL iqWUA6v2AyAk65F99jUEg pZHRoPSIyMCUi KBNtxOnrfe2pdL8sRa8+P LNxoFH6mEF9eM2qZdAdRb W1QUrsT370TyBeiGGgUxj gF48gC0ItaWF+ DCLaDbg5VNCsvYjbUS7ma LJeXOljWe9cNUH7WcUqDq UdIVddT9IbSBEhuztbppr xeFF8QDBfHNRv nT25Dc0wtGwsAe7qFKQrO BX8PCSmaUCpL7DscA7mUb QdHFNaXUMaS6KsmINtURh iV852VVjyHyQ2 YCUizhQwO8EcUOMrwPqvF aC8x3N8Jz4WtWflhGGvVW 3zGmXfJHs0O4BiUfv3YOL jkYzxNU8tgJRy NQbwRx3baRnusXedQH3bC DFubegab978FsDlj9iuSN DtvWHdSPeiWSI1K56hs8T 5FBQcRDTfPGJ7 gZO2uM9kdBxjaarngTWih DsgdmVydGljYWwtYWxpZ2 74OFPokHrnKkKNYeb4K2S dRvn9RWKnyHpo BH1arCYpDHygKj0rnGaci IjtDV3lEVRnhwiok994Is Kie1dpEBNwqEQyUIwyAFW 2O46yv2R0QUXh YGEnKWC4lJL9nV7weOoof jogbGVmdDsgdmVydGljYW ovKUswW192RYHuzAgjHu7 TFim3H3NePos9 NFYppYdkIK3xsYMfDKezZ j9rkNdraRliAT9zVIBslu cxp300SlGiq5kqGOTasCA pTDivOCW5U76q z4N1CDKjQDPmBXW4sCU0b E7bmRarmkuyfIUfiUxzvc JrxDwdGAgiVBjsN152VUH vcDsnPlBheWVy OjwvdGQ+BX85rw78R0LzN ortMos1FHRpMGJ2aPN5eQ 7eDBNtUFqhq8R7sIR6Z3W jcbEvar1de2jl YXBz (more content not included)... Normal [facility] XR Spine Cervical 2 or 3 Vie [...] M.D. Transcribed by: CAITY Technologist: SULY Normal [facility] Consent for Treatmenton 10-05 Consent for Treatment [id number]# 1.00CD:127 Normal [facility] Consent for Treatment [id number]#1 .00CD:127 Normal [facility] Consultation Noteon 11-01-19 Consultation Note Patient: ELISA [...] has, # 60 tab(s), Refills(s) 0, Pharmacy: [facility]/pharmacy #[id number], 166.8, cm, 10/11/21 14:46:00 EST, Height/Length Dosing, [...] Oral, Daily, Prophylaxis fluticasone 0.05 mg/inh Nasal Butner: 1 spray(s), Nasal, Daily, Refill(s) 0, Allergy [...] list: All Problems Palpitations / SNOMED CT 457274863 / Confirmed 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 Hypertension / SNOMED CT 1968507705 / Confirmed Anxiety / SNOMED CT 90666920 / Confirmed Lumbar disc disease / SNOMED CT 9596180421 / Confirmed Lumbar radiculopathy / SNOMED CT 896133967 / Confirmed Chronic gastritis / SNOMED CT 23839218 / Confirmed Migraines / SNOMED CT 00096965 / Confirmed Insomnia / SNOMED CT 435568633 / Confirmed Colon polyp / SNOMED CT 111849214 / Confirmed Chronic leg pain / SNOMED CT 759239374 / Confirmed Laxative abuse / SNOMED CT 271159349 / Confirmed Chronic cluster headache / SNOMED CT 463074321 / Confirmed Vitamin D deficiency / SNOMED CT 97812064 / Confirmed Hyperlipemia / SNOMED CT 71218608 / Confirmed Osteoporosis / SNOMED CT 858165052 / Confirmed 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 Normal [facility] Comment on above: Result Comment: Elec tronically Signed By: Sophy Rush PA-C\.br\Date and Time Signed: 10/31/21 12:26 EDT\.br\Electronically Co-Signed By: Derick Meza MD\.br\Date and Time Co-Signed: 11/01/21 07:42 EDT Office/Clinic Note-Physician on 10-31-2021 Office/Clinic Note-Physician [id number]# 1.00CD:127 Normal [facility] Orders Officeon 10-31-2021 Orders Office [id number]# 1.00CD:127 Normal [facility] Physician Orderon 10-31-2021 Physician Order [id number]# 1.00CD:127 Normal [facility] Orders Officeon 10-28-2021 Orders Office [id number]#1. 00CD:127 [facility] IntraOperative Documentson 0 10-25-2021 IntraOperative Documents [id number]# 1.00CD:127 [facility] Vital Signs Date Time Vital Sign Value Performing Clinician Ruba miller 10-10-2022 13:14-0500 Diastolic blood pressure 68 mm[Hg] Sophy Rush [facility] 10-10-2022 13:14-0500 Heart rate 62 /min Sophy Luqit [facility] 10-10-2022 13:14-0500 Mean blood pressure 90 mm[Hg] Sophy Luqit [facility] 10-10-2022 13:14-0500 Respiratory rate 12 /min Sophy Rush [facility] 10-10-2022 13:14-0500 Systolic blood pressure 135 mm[Hg] Sophy Rush [facility] 08-22-2022 13:06-0500 Diastolic blood pressure 61 mm[Hg] Eddi Arana [facility] 08-22-2022 13:06-0500 Heart rate 65 /min Eddi Sumit [facility] 08-22-2022 13:06-0500 Mean blood pressure 76 mm[Hg] Eddi Sumit [facility] 08-22-2022 13:06-0500 Respiratory rate 16 /min Eddi Sumit [facility] 08-22-2022 13:06-0500 Systolic blood pressure 106 mm[Hg] Eddi Sumit [facility] 07-11-2022 13:57-0500 Diastolic blood pressure 76 mm[Hg] Eddi Sumit [facility] 07-11-2022 13:57-0500 Heart rate 77 /min Eddi Sumit [facility] 07-11-2022 13:57-0500 Mean blood pressure 99 mm[Hg] Eddi Sumit [facility] 07-11-2022 13:57-0500 Respiratory rate 16 /min Eddi Sumit [facility] 07-11-2022 13:57-0500 Systolic blood pressure 146 mm[Hg] Eddi Sumit [facility] 06-20-2022 12:30-0500 Diastolic blood pressure 75 mm[Hg] Sophy Luqit [facility] 06-20-2022 12:30-0500 Heart rate 57 /min Sophy Rush [facility] 06-20-2022 12:30-0500 Mean blood pressure 94 mm[Hg] Sophy Rush [facility] 06-20-2022 12:30-0500 Respiratory rate 12 /min Sophy Rush [facility] 06-20-2022 12:30-0500 Systolic blood pressure 133 mm[Hg] Sophy Rush [facility] 03-28-2022 12:43-0400 Diastolic blood pressure 69 mm[Hg] Sophy Luqit [facility] 03-28-2022 12:43-0400 Heart rate 51 /min Sophy Rush [facility] 03-28-2022 12:43-0400 Respiratory rate 18 /min Sophy Rush [facility] 03-28-2022 12:43-0400 Systolic blood pressure 135 mm[Hg] Sophy Rush [facility] 12-20-2021 12:28-0400 Diastolic blood pressure 79 mm[Hg] Sophy Rush [facility] 12-20-2021 12:28-0400 Heart rate 51 /min Sophy Rush [facility] 12-20-2021 12:28-0400 Mean blood pressure 97 mm[Hg] Sophy Rush [facility] 12-20-2021 12:28-0400 Respiratory rate 18 /min Sophy Rush [facility] 12-20-2021 12:28-0400 Systolic blood pressure 134 mm[Hg] Sophy Rush [facility] Encounters Encounter Date Encounter Type Care Provider Facility Start: 09-10-2023 Telephone encounter Tiffani Munson [employer] Work Phone: [facility] Start: 09-05-2023 Telephone encounter Tiffani Munson [employer] Work Phone: [facility] Start: 10-10-2022 End: 10-11-2022 ambulatory Derick Meza Facility:[facility] Start: 10-10-2022 End: 10-10-2022 Patient encounter procedure Sophy Rush [facility] Start: 08-30-2022 Encounter for genera l adult medical examination without abnormal findings DR EMI FRIEDMAN . [facility] Start: 08-26-2022 End: 08-27-[address] EMI FRIEDMAN . Facility: Start: 08-26-2022 End: 08-27-2022 Encounter for general adult medical examination without abnormal findings DR EMI FRIEDMAN . Facility: Start: 08-22-2022 End: 08-23-2022 ambulatory Emi Friedman Facility:[facility] Start: 08-22-2022 End: 08-22-2022 Pain Management Eddi Arana [facility] Start: 08-01-2022 End: 08-02-2022 ambulatory Eddi D Sumit Facility:[facility] Start: 07-11-2022 End: 07-12-2022 ambulatory XXXX NONE Facility:[facility] Start: 07-11-2022 End: 07-11-2022 Pain Management Eddi Arana [facility] Start: 06-27-2022 End: 06-27-[address] YASMINE DAMON . Facility: Start: 06-27-2022 End: 06-28-[address] EMI FRIEDMAN . Facility: Start: 06-20-2022 End: 06-21-2022 ambulatory Derick Meza Facility:[facility] Start: 06-20-2022 End: 06-20-2022 Patient encounter procedure Sophy Rush [facility] Start: 05-04-2022 End: 05-05-2022 ambulatory Sophy Rush Facility:[facility] Start: 05-04-2022 End: 05-04-2022 Patient encounter procedure Sophy Rush [facility] Start: 04-20-2022 End: 04-21-[address] EMI FRIEDMAN . Facility: Start: 04-04-2022 End: 04-05-[address] EMI FRIEDMAN . Facility: Start: 03-28-2022 End: 03-29-2022 ambulatory Derick Meza Facility:[facility] Start: 03-28-2022 End: 03-29-2022 ambulatory Derick Meza Facility:[facility] Start: 03-28-2022 End: 03-28-2022 Patient encounter procedure Sophy Rush [facility] Start: 12-20-2021 End: 12-21-2021 ambulatory Emi Friedman Facility:[facility] Start: 12-20-2021 End: 12-20-2021 Patient encounter procedure Sophy Rush [facility] Start: 12-08-[address] EMI FRIEDMAN . Facili ty:[facility] Start: 10-31-2021 End: 11-01-2021 ambulatory XXXX NONE Facility:[facility] Procedures Date Procedure Procedure Detail Performing Clinician Start: 08-01-2022 Epidural injection of lumbar spine using fluoroscopic guidance Eddi Arana Comment on above: L5-S1 CHRISTY- 0% relief Start: 10-18-2021 Cervical arthrodesis Sophy Luqit Start: 06-13-2021 Epidural injection of cervical spine using fluoroscopic guidance Sophy Luqit Comment on above: C7/T1 CHRISTY-minimal relief Start: 05-26-2020 Esophagogastroduodenoscopy Sophy [facility] Start: 05-06-2020 Hemorrhoidectomy Sophy Rush Start: 09-04-2017 Colonoscopy Tiffani Munson [employer] Work Phone: Application of pelvic traction Sophy Luqit Comment on above: for 8 weeks in 1988 for left broken pelv ic bone Aspiration of ovarian cyst A phillip Luqit Comment on above: 1987 Bone structure of left navicular Sophy Luqit Comment on above: 2019 removal of pieces of broken bones Deviated nasal septum (disorder) Sophy Luqit Comment on above: 2003 Excision of lesion of skin A phillip Luqit Hysterectomy Sophy Luqit Comment on above: 1993 Injury of right ankle Sophy Rush Comment on above: Dr Fields Ligation of fallopian tube A phillip Luqit Comment on above: 1984 Operation on lymph node Fredy lopes Luqit Reduction mammoplasty Sophy Rush Comment on above: 1989 Structure of left sh oulder region (body structure) Sophy Luqit Comment on above: 1986 Plan of Treatment Date Care Activity Detail Author Start: 08-28-2024 DTaP,Tdap and Td Vaccines (2 - Td or Tdap) DTaP,Tdap and Td Vaccines (2 - Td or Tdap) [facility] Start: 04-06-2023 COVID-19 Vaccine ( season) COVID-19 Vaccine ( season) [facility] Start: 04-06-2023 Influenza vaccination Influenza Vacc ine [facility] Start: 12-21-2022 Adult BMI Screening Adult BMI Screen ing [facility] Start: 12-21-2022 Tobacco Screening Tobacco Screening [facility] Start: 09-04-2022 Screening for malign ant neoplasm of colon Colonoscopy [facility] Start: 1974 Depression Screening Depression Scre ening [facility] Immunizations Immunization Date Immunization Notes Care Provider Catrina michael 05-11-2021 influenza virus vaccine, unspecified formulation Tiffani Munson [employer] Work Phone: [facility] 12-01-2020 SARS-CoV-2 (COVID-19 ) Ad26 vaccine, recombinant Sophy Luqit [facility] 11-10-2020 SARS-CoV-2 (COVID-19 ) Ad26 vaccine, recombinant Sophy Rush [facility] Payers Date Payer Category Payer Medicare [employer] MEDICARE A [employer] MEDICARE PLAN (HMO) [id number] 2023-Present [phone] [address] [place] [address] [id number] 2018 Unknown [id number] 1962 Unknown [id number] 2.16.840.1.256769.3.579.2. 1962 Unknown [id number] 2.16.840.1.551740.3.579.2. 1962 Unknown [id number] 2.16.840.1.324419.3.579.2. 1962 Unknown [id number] 2.16.840.1.747347.3.579.2. 1962 Unknown [id number] 2.16.840.1.478004.3.579.2 1962 Unknown [id number] 2.16.840.1.859720.3.579.2 1962 Unknown [id number] 2.16.840.1.925706.3.579.2. 1962 Unknown [id number] 2.16.840.1.225208.3.579.2. 1962 Unknown [id number] 2.16.840.1.558585.3.579.2. 1962 Unknown [id number] 2.16.840.1.594455.3.579.2. 1962 Unknown [id number] 2.16.840.1.439430.3.579.2. 1960 Unknown [id number] 2.16.840.1.455805.3.579.2. 1962 Unknown [id number] 2.16.840.1.944245.3.579.2. 1962 Unknown [id number] 2.16.840.1.332248.3.579.2.727 1962 Unknown [id number] 2.16.840.1.125705.3.579.2.727 1962 Unknown [id number] 2.16.840.1.376535.3.579.2.593 1962 Unknown [id number] 2.16.840.1.240232.3.579.2.593 1962 Unknown [id number] 2.16.840.1.142321.3.579.2.593 1962 Unknown [id number] 2.16.840.1.430277.3.579.2.593 1962 Unknown [id number] 2.16.840.1.705104.3.579.2.593 1962 Unknown [id number] 2.16.840.1.053022.3.579.2.593 1957 Self-pay Social History Date Type Detail Facility Start: 06-28-2021 End: 12-21-2021 Tobacco smoking status Ex-smoker (finding) [facility] Tobacco smoking status Never [facility] Start: 09-16-2020 End: 12-21-2021 Sex Assigned At Female [facility] History of tobacco use Current smoker [facility] History of tobacco use Cigarette Smoker P [facility] Start: 09-16-2020 End: 12-21-2021 Cigarettes smoked current (pack per day) - Reported [address] [facility] Start: 12-21-2021 Tobacco use and exposure Smokeless tobacco non-user [facility] Start: 12-21-2021 Alcohol intake Current drinke r of alcohol (finding) [facility] Start: 08-22-2017 Tobacco Comment QUIT 9 YEARS AGO [facility] Start: 08-22-2017 Alcohol Comment SOCIAL/BEER [facility] Start: 1960 Sex Assigned At Not on file P [facility] Medical Equipment Procedure Code Equipment Code Equipment [...] Assessment Result Facility 10-10-2022 Functional Status N/A [facility] 08-22-2022 Functional Status N/A [facility] 07-11-2022 Functional Status N/A [facility] 06-20-2022 Functional Status N/A [facility] 03-28-2022 Functional Status N/A [facility] Clinical Notes 10-31-2021 to 09-10-2023 Telephone Encounter [...] for a repeat until 2027. Spoke to [place]'s nurse and she states that Elisa is aware of this also and to please disregard the referral. documented in this encounter [facility] 09-10-2023 Telephone encount er Note Called Ramandeep Mary/Dr. Friedman's office as we received a screening colonoscopy referral for Elisa, but she had a colonoscopy in 2017 and not due for a repeat until 2027. Spoke to [place]'s nurse and she states that Elisa is aware of this also and to please disregard the referral. [facility] 09-05-2023 Miscellaneous Notes Formattin g of this note might be different from the original. Called Dr Friedman's office as we received a screening colonoscopy referral for Elisa, but she had a colonoscopy on 09/04/2017 and is not due for 10 years. They are to let Dr. Friedman know. documented in this encounter [facility] 09-05-2023 Telephone encount er Note Called Dr Friedman's office as we received a screening colonoscopy referral for Elisa, but she had a colonoscopy on 09/04/2017 and is not due for 10 years. They are to let Dr. Friedman know. [facility] 10-10-2022 Evaluation + Plan note Extrac che [...] will follow-up with Dr. Derick Meza at [facility]. She has this information. Future Scheduled Tests Radiology* XR Spine Cervical 2 or 3 Views 10/31/21 [facility]01-17-2023 Evaluation + Plan noteExtracted from: Title:FUV Author:Eddi [...] Spine Cervical 2 or 3 Views 10/31/21 [facility]12-27-2022 Note [id number] [facility] 07-11-2022 Evaluation + Plan noteExtracted from: [...] Spine Cervical 2 or 3 Views 10/31/21 [facility]11-15-2022 Evaluation + Plan noteExtracted from: Title:Spine [...] Spine Cervical 2 or 3 Views 10/31/21 [facility]08-23-2022 Evaluation + Plan noteExtracted from: Title:Spine [...] Spine Cervical 2 or 3 Views 10/31/21 [facility]05-17-2022 Evaluation + Plan noteExtracted from: Title:Spine [...] 12:30:00 PM Scheduled Provider:Sophy Rush PA-C Location:[place] [place] Appointment Type:Pain Management - Follow Up ([place]) Future Scheduled Tests Radiology* XR Spine Cervical 2 or 3 Views 10/31/21 [facility]03-28-2022 Evaluation + Plan note Future Scheduled Tests Radiology* XR Spine Cervical 2 or 3 Views [facility] Appointment Date:03/28/2022 12:30:00 PM Scheduled Provider:Sophy Rush PA-C Location:[place] [place] Appointment Type:Pain Management - Follow Up ([place]) Future Scheduled Tests Radiology* XR Spine Cervical 2 or 3 Views [facility]ments Appointment Date:04/25/2022 11:00:00 AM Scheduled Provider:Sophy Rush PA-C [facility] Appointment Type:Spine - Follow Up ([place]) Future Scheduled Tests Radiology* XR Spine Cervical 2 or 3 Views [facility]ments Appointment Date:05/23/2022 11:30:00 AM Scheduled Provider:Sophy Rush PA-C Location[facility] Appointment Type:Spine - Follow Up ([facility]) Future Scheduled Tests Radiology* XR Spine Cervical 2 or 3 Views [facility] Narr[facility] No data available for this section [facility] Discharge instructions No data available for this section [facility] HospitalInstructionsNot on filedocumented in this encounter [facility] No data available for this section [facility] Summary Purpose Family History No Family History Records FoundNo Family History Records Found Advance Directives No Advanced Directives Records FoundNo Advanced Directives Records Found Additional Source Comments Care Team (unrecognized sect ion and content) Corporate Paralegal Relationship Specialty Start Date End Date Emi Friedman MD [address] [phone] PCP - General 08/15/17 INFORMATION SOURCE (unrecogn ized section and content) DATE CREATED AUTHOR 10/23/2022 [facility] DATE CREATED AUTHOR AUTHOR'S ORGANIZ ATION 11/28/2022 [facility] FOR RECORDS PERTAINING TO PATIENTS [...] BASED ON THE PRIMARY CLINICAL RECORDS. [facility] provides no warranty or guarantee of the accuracy or completeness of information in this document.
== END 2024-01-14 08:29 | disposition home or self-care (01) ==
LOC: LAB 02-05 08:28
PROVIDERS: PCP Family Medicine; Visit Provider Family Medicine
DX: T17.308A Unspecified foreign body in larynx causing other injury, initial encounter (principal); N39.0 Urinary tract infection, site not specified
CPT/HCPCS: 81001; 87086; 87150; 87186

== ENCOUNTER 2024-01-18 13:43 | Outpatient (OUT) | payer MEDICARE, SELFPAY ==
--- NOTE | 2024-01-18 13:45 | MR_ITS ---
The [address] [address] Patient Name: ELISA GOMES MRN: [facility]:[id number] date: 1960 Sex: F Assigned Patient Location: MRI Current Patient Location: MRI Accession/Order Number: [id number] Exam Date: 01/18/2024 13:55 Report Date: 01/18/2024 15:32 At the request of: EMI KENYON Procedure: MR head/brain wo/w con EXAM: MR head/brain wo/w con HISTORY: Memory Loss R41.3 COMPARISON: None. TECHNIQUE: Multisequence MRI brain was performed with and without intravenous contrast. FINDINGS: There is no restricted diffusion to suggest acute infarct. There is no midline shift, mass effect, or abnormal extraaxial fluid collections. There are no abnormal parenchymal or leptomeningeal enhancement. The cortical sulci are mildly enlarged. The ventricular system are within normal limits. There are a couple of nonspecific tiny foci of T2/FLAIR signal abnormality in the supratentorial white matter. The major intracranial flow voids are visualized. The cerebellar tonsils are normal in position. The orbits demonstrate no suspicious enhancement or any focal lesions. The paranasal sinuses show no air-fluid level. The mastoid air cells are clear. The calvarium and extracranial soft tissues are unremarkable. MR/MR head/brain wo/w con IMPRESSION: No acute intracranial abnormality or abnormal intracranial enhancement. Mild global cortical atrophy. No selective hippocampal atrophy. A couple of nonspecific tiny foci of T2/FLAIR signal abnormality in the supratentorial white matter, likely reflect chronic microvascular ischemic changes. Electronically authenticated by: NAOMI IRAHETA Date: 01/18/2024 15:32
--- OUTSIDE RECORDS SUMMARY | 2024-01-18 14:03 | XMS_ITS | CCD ---
Author Organization [facility] Care Team Providers Care Matcher [employer] Name Role Phone Emi Friedman Primary Care [...] Admitting Unavailable Meza, Derick A Attending Unavailable Ruhs, Sophy Attending Unavailable Rush, Sophy Admitting Unavailable [...] Elder MURILLO, Emi Adrian Primary Care Provider [phone] Allergies Allergy Classification Reported Allergen(s) Allergy Type Date of Onset Reaction(s) Facility (14 sources) Adhesive Tape; Translations: [Tape] Drug allergy Eruption of skin (disorder) [facility] (16 sources) Penicillin; Translations: [penicillin] Drug Allergy 9 Weal (disorder) [facility] (14 sources) Sulfonamides (Antibiotic); Translations: [sulfa drugs] Drug allergy Weal (disorder) [facility] (1 source) Desonide Drug Allergy 9 [facility] (1 source) natural latex rubber Drug allergy (disorder) [facility] (2 sources) Sulfonamides (Antibiotic) Drug allergy (disorder) [facility] (2 sources) Adhesive agent Propensity to [...] Corticosteroid Start: 05-20-20 fluticasone 0.05 mg/inh Nasal [place] 1 spray(s), Nasal, Daily, Refill(s) 0, Allergy symptoms Start Date: 05/20/21 Status: Ordered take 1 spray(s) nasal route once daily fluticasone propionate (FLONASE) 50 mcg/actuation nasal spray Administer 1 spray into each nostril daily. 0 Active fluticasone 0.05 mg/inh Nasal [place] (6 sources) Start: 05-20-2021 fluticasone 0.05 mg/inh Nasal [place] 1 spray(s), Nasal, Daily, Refill(s) 0, Allergy [...] blood pressure Start Date: 10/03/21 Status: Ordered [facility] Medication (4 sources) Start: 07-11-2022 [facility] Medicatio n See Instructions, collagen powder 1 scoop daily Start Date: 07/11/22 Status: Ordered hgzqtnck-ljge-FN-ca lcium &mins (THERAGRAN-M) 9 mg iron-400 mcg tablet (2 sources) ucsehydl-qvem-EL -ca lcium &mins (THERAGRAN-M) 9 mg iron-400 [...] Ordered Start: 06-14-2020 take 1 capsule by [facility] once daily omeprazole (PriLOSEC) 40 mg capsule [...] Range Facility Coding Summary.on 10-23-2022 Coding Summary. CD:[id number] G h0bWw+PGhlYWQ+CZ9JGCM wQ26rpQYmiY1uG4MQDBwM SywgQVBQTElOSyIgbmFtZ G6zoIVjZYXw IC8+LM3vUCLnEliqtFPme 0E9dSM8V66tjj6gNHpkzI J2ZQApKwQzttnpo7gttJr 6IDcuNmluOyBt BYTasF08DMM5jP49Je49b GJmsIClh7gvbDc1GpXgNG NxJSY9pNvwCNfuk3ZqJSE eW39ecHApk0F0 YQCbySoudAPsJmTwqBI9g W0iFJdjgubrd8rxgugvMf h8jn38dYQeh6V1iYA0K7V wyhD8WLDbzZGz QeztrFUHqY6obrpar7kym hveCtTfQMKbQQh7EOa9KQ UorEmiTkEmPE18JJL4TPX tfwHmQ4FtNUIg mCnxZtM0o3Z5Ch8EB3FBJ ruwM5RRIBUXRVbqhIU+PC 92cw05A7HyDlnpBxa5WJD hTDW8hGC3aQ7f NWTsAIggt5I6bMY0T5Dfv jMdsl4as7jcVAMdSUjdL1 4rnHNqm5W1FBWpbPE8JWQ tqSleCgLbeM47 Oyc+WHLykJqip5HaThmie 3egk3vfaYv9DkeeXEQomk GslApxROE5h6RcKj1aWAV jqSR6rSE8qK4o SwRiDnP2NTizL597AmBnl BJrDojwP37uB3DtyAZ+PH KsMey6MOZoeWpsOB4cW6N hZGRpbmctbGVm nVbdUC9lXTAtgrrtXSAhf I8jTIWzB5f5EpUxZbW2QT isK9EyKZEifqnuDv47cP6 xZuKhYlI3HQtw K2PuznB5OUCeaIUpCQueQ TK3Y77sb0S5POOvYNMzVM Y1eJG5wP9xhPrmpszcbWX mdDsgdmVydGlj BNoiXNabL982AHDdmWtqU kNvZGluZyBEYXRlOiAgMD MvMjAvMjAyMzwvdGQ+PHR mCZN9qRomNHJl rEHaFIumOh2ksLgbzDpkO R0bMOContxfGMFpqN2vJS YjsGKqoVrcAH4qPRKhajd ka590OvBzHEF4 GJUdcFNsH6VlbJ5aUkKwO AUpSIZpD9WbsQSkGRbiX8 72FIfvPsK0AINvlqMbL5H sLWFsaWduOiB0 t9W4Kl8Rb8EfpfqkO6Leg HTyDrCwPcqiFLp0I2HnOb wvdHI+NG26UETpLG05QJp 4TDF3jNwqINbr HQExA0IhjW9yGmDjQMXxE GRkOyc+PHRhYmxlIHdpZH RoPScxMDAlJyBzdHlsZT0 lGt2kZNNuRPZx jYpahHPcRuZap6vrFQAiD PhnCK3nsAggY7YfmGG6EB Ljk3b4Xm42G98tH4CltJC +PXSgnUT9iKP1 xA1gGlLcAeE2YXrjD625J gEfjEViAvcwu4jhe1grxL e0XfE9GUSrtzSrgGujXIJ 2q1ToSh37M57a IHdpZHRoPSIxNSUiIHZhb Lbedt2qyX8tOp7+PGNvbC G8cZX8zR7nEyLaCaG7TSo gO879GzRooIYq Yxsvk0pdq2bajDa4LgYbC RAdalTxxCoeKAA2t4UmWe 62Y8AllEgkp2HgNss0my3 6kZBys3S0oDB3 N6KbAFXnwlpbuYNdmGgfG Q6mTFEcudsiIFXyrE9sUG ViK3g3ItIeGhZ3OOgpS4J iorT5BELdbPSp NBRnvZNWyD6sxihns3xip zekYtMrWWIuXKq9CCy4MA XibZhoErLzPBV3FqI9QNR 6zZWwnR1cvCqp seuqfW3eYkl+NXV1vMEbg VUISU1aIdticNC+PHRkIH C7xDfkLTxhMRCcmE2zPYR oB7l5ByZeKqD2 JEnlY6KxjfU9OWTxqWTpL MXbzGIExL5fvpfla9vqeb pdSuOnYDCkPDa9ITe9GLW saWduOiBsZWZ0 GxO8CWK8jGSwvE1ilYkwj mvqgC7mHfn+QmlydGggRG H2FYj7N9AgWsr6QRMeiOe jTZ7nnADhHRqd Pf9ohTvztTkuMC7uLODwy ypxw426UcDba8ioDRWjlA JvLWlbPJK5N42sl4T6IKJ uLXJeAHR1vPO3 uW5vkVtugjncfHWjfMhef cRvrVboDQumMEshS569ZU ObuMmnToXmFFl9T1CqUoq 2VVIgjUbmZS8w tVBdDQxjOu4mvDcrnDqqI W3sXTKflbyzd731CoNiq8 eaDDYosSQyXVcjWSB0R02 lr4H0TRSvLKDm AGZ6qFS3uI0geAjdtakua GVmdDsgdmVydGljYWwtYW iiU237JCVxxOleThLrzYh 5V6NtGgz7DBZy sXmkZN9tlTUmOGioJo8by CjskYneOY9gWCLduiqss3 19PiMve8uaKFHbrAItAPa fTYB0M72ps5B7 RJNfTQQtGID1nUO7kF3rs GlnbjogbGVmdDsgdmVydG poVEuqAEqkG456NVCfeCh nPlBhdGllbnQg YZzuVSx9O8UsDwwenKU+P R83CREbIL11wQIjmABkx7 eazDk5EgHfPFZoEOA0kWv wHYvnm6RfEWNe R04lnXKhc6I9VJKfzPlva DFfOvTybKU0lU8zAOqrzk wzg7xmzpqyFiqgi6njzs1 2yM46U61gCFdy ZHRoPSIzMCUiIHZhbGlnb p0rhG4nSm9+ONWrhMV0dC R2hQ2oIZYxYzN0XUcpT15 9InRvcCIvPjxj t4dhs3bjfMn6BsT8UDXlr gWsgTycTWS5t0JyXs10X4 9sIHdpZHRoPSIyMCUiIHZ fuCthvv6hsN2j Ii8+QMEnaSV2kHU5pZ7zY vUfAeV7OEpyO951KcWhwR VrQlzzI92iK2NovPC+PHR gYsh0XURdbRhw PT2ogUSnSZupZs4gKOR8I jTlGbDhLLmbW5EcODOoye pnnkmqyAU9RRWiFLBllO1 9Gd2ohAzmEYNl oQBSbU0swwmgo5bhqkhcC wWmULMpBIe4YRd2EMCmzF lhQjFpTXT4BlG1HWC5eDB krN3imBfetayf kF5eC6TxADUbnvfcBs88e U8rIqPwNcN6ZPynWln+Ql ODYb3VIFeuFIICHhJnSTo vdGQ+PHRkIHN0 wXgdVIbpIPIraC0vTJGcZ 7w9KwSvOtU1PViuT6RkUW CxigjaZs36vG3kBxQfBdX 3DSxgH4TnmlI6 YIHmjXYvVKekXSE5O25sm 7E6TBLeTZCpZMP6zXS8fU 1hbGlnbjogbGVmdDsgdmV ydGljYWwtYWxp O930LMAxwRvqVjE8FxQlG oX1YgW4I1WwCdm6MHDhkU ptJO3ioHWqDIeeQv1jlVr czLneFD8hBYSe mxcuOPFgsA7eTZXmsGQot DkwXB1uOLIqvzbbb349Qb EdIFV9XXDbsLWgZ8XlpY7 yOiAjMDAwMDAw M2BkzZNfGPxtK246HIipQ iE4HQDvxvNrR2NdALZeoG paQnX6p5T6Zw06VBMQHLY yczwvdGQ+PHRk IHB6nTkhWXpkEEGjiN0nP UGwE6d8LlXvArC5HKmiX4 LpETXvmnaaJe10rU1cCwB zQyX4YRokN1Vg pxG7UVTuhERbKBaeUOZ8Q 87qd8S2CPPzSBXcRTH1jR D2kL0tkVohqamztBOtoMd gdmVydGljYWwt FVrzI930GLVvcMqiQuDcg WFsZTwvdGQ+TYYoWEG7pQ wwLWxyRDEdrX5qDJYbG6w 1TyTbCfG0LArd Z8RkEXOhikwdBb12nN6mO jPkVbW3ZJycA2CsuwR7MS SedERkNKhyYJD9P53sm8J 4WOUdHOXdJBD9 pFR5hG6dcPeitmmbcNZzp DsgdmVydGljYWwtYWxpZ2 96ECHonUrlDp25aDNatFi coqZ3T2JmYocy dHI+EU67RZBuLZ62gQAye UTib4bsjXd1BrQxSWTgCW W5dJemIHmct7AuIKTlY90 lmNHyu5G8GZFk sKlorHHqBoBlvAG7bN0lW Idifeori5bpmjjmRhoqh3 spdq14kS37M82kHVohZYH oPSIzMCUiIHZh pRcsaj6fmD1oHu2+PGNvb UC5oUA8cZ1rPfGkQxV2CR fuR019MtQdfUTnBdnmp2i am1exyBa1AtUy USOrilOjqCggTNI2e4XbG a35Z68mMMfeUIGrCZLrZE BrDGZrwDfcae5dsB7mSw9 +XU8xa2sdpo17 aC62jJK+MVDwCPH4gCnyP VhsGCRjvE8rQHpoXpP2NH AsWjGcsD66sZPrRSocUo4 zaPgevCnfJY6x MDVyrmefa728ZiKte5shA QTyvPDiZFvsSIW4E77wg7 Q4BRQfRVMvKDN5jDT6lB7 hbGlnbjogbGVm dDsgdmVydGljYWwtYWxpZ 495VFMqcLovMlSfjISrX3 kgynKNXT0rCcfvaOT+PHR kUOS9tTvjVWqc GUWshH6pSEHwG4a8FiGxJ kH8DIhpN6FpvgL6HRIxaB IdYTGcpAWUiG6yobupn0f vcjogIzAwMDAw YQs8CNq7HWXqiKcdEePaP TP1VmW0DTS9sTDcpF5sqX klzlsexE1nHlf+RklOOjw vdGQ+PHRkIHN0 rCopDZnhWGUahW7zDHGyP 2c3BlBqWsH6CRpoE9Ctmn H2ZIAcuGQoCOKceTAUuH4 dzsfes3shpdcf NiMoIKSkHWc6RPg1DIPdw SokFeHsAEP0DbM8UZH9lM TyaY3ohVxmvpkenA7pFoq +TVJOOjwvdGQ+ VTKxXLX4qMtnGNjbNCHiz E1bZUYuV6b5QvTqWbG2LJ fzO9EiksO7PQPwrUAkJTT fpFMCcF2cawus b2xzysxwHcXvVTLfGTl5W Jm3VXXmoKqbNxRaHFE5Ix M4SYO3gUEujU3zjBmlglr juK6aKyn+UGF5 DFR6TG36DY36L3FtRyeoc GFibGU+PHRhYmxlIHdpZH RoPScxMDAlJyBzdHlsZT0 dVg0zTQHwVZJw bGxh (more content not included)... [facility] Coding Summary.on 10-17-2022 Coding Summary. CD:[id number] G h0bWw+PGhlYWQ+DI9LGQJ nO38agGBcuJ2aI6TRUGjC SywgQVBQTElOSyIgbmFtZ J0ayGHoWOBg IC8+TT9sHIShBdfxtBCln 1A7wDY9U33huj0eWLmpyW D5AZKnWiJnnqfuy0lhqOh 6IDcuNmluOyBt PYRzxC53KHJ7iP85Cc42g APtrQUmj0iqxBf7FnVzAJ GrEKP6uXybHLzlk4WxSNQ pB41lnUIks0H8 GUBmtAosmEFcJtDsiUF5m K2tCOfbbopnh2eqwnxqTg t7cc89nDCuo1Z5iZJ9Q6O fdoW9SVRdiUJy FsdrsSITmE7ktdkvj0zic uejIvOwFQCbLSy0XVt6MV BztBhmGyRmDD56AFV5INW bohRcG8SoNGTq aOosHlI1y7I6Lg9NW3UIR kksA9EMMQGUNHeldVI+PC 78so16X1NeAimhXgt9GKT zIDZ7xXJ4rX6p YROxPNlbv5R9hKA7S3Ayq rFncd1dl4alDIKwACmzV8 4gvBZpt3E5ACJxyWX0NXQ mdIrsGwNfqW28 Oyc+FGCkgIjbo7CyBygpb 4rrx5tljHx3IkhtHSQqhv ZkwFthHWF8v0XyDg9aKQB ekOR8cCV6iF0l OlVbKzW0WQtxG153FgAye IJnDojoT71nK4VnmQR+PH ChZzp8RAEzcPnbEJ1jD1T hZGRpbmctbGVm nAxhYI4aIGUbfyytCPKvd D1qCUIjV9r9ErIdNvX1FF saM4EqQCLimrymKc98bD8 oWmNgFgB5VZwz J5DpjxY2NNGbyLZxCJgiX CS2A05ch9C3QAKfHJFmXZ X3iJL3aG9isIuezqsrgDY mdDsgdmVydGlj AIexNOqqA747BXGvlYemV kNvZGluZyBEYXRlOiAgMD MvMTQvMjAyMzwvdGQ+PHR gOYB0pLtcZLSb dHUyXVwdYw8uhInwgNgpK Y9wFUMbdoupYHTvoW2zYM YjgXZmxVntTC6xWVOttvb ve454FaPmBGG3 VEUovEYqJ0BmsW4sCbKbV AGvNLAgM2UxfPHnFKmuN7 27TMqqWnD1RDEnagQjC4U sLWFsaWduOiB0 y8E7Ty9Wr8OiwqmfX2Jkw ZUvXfHzTwraZBo0W6HfSa wvdHI+QI05XIXaFW32LHz 4ZLW6cMlsFSzk IBNsT8NsyG0qQoRwDMWkQ GRkOyc+PHRhYmxlIHdpZH RoPScxMDAlJyBzdHlsZT0 uDq5jNXLkGDZj sWtypJLyFwDzo1jiHELaJ OomZQ1pbKagY7HamFO8HO Exe1x3Hi02S55qL5RvhSX +DKJtmJP2hMB0 cH7yVjMwPxD0JKljZ258L iSwuGZoXtxsl1bat8nhyG x6EyW6UXSqdaZueAtrSWY 8c5DyQw21J84z IHdpZHRoPSIxNSUiIHZhb Gumyc6xkB5wGu0+PGNvbC D1wHY0fO0aKkArXyO7FSg eK520FtGekTCi Qgxke8xuw0gpsIn8IsWeM DFrqrOmlQkmHJL9r2WxIb 85C8HzhHetq8UlWss8vw2 9jIUes9O9kME9 X8EqOXAiklssyLDyiPkqD G5qCUTrkcrnHGJlsC8uRU QmI2q5FsBbBhY1NQrfX7O hmiM9AOGbnUVo PPVwzURKoH4xllfyu1bxy irnFvDiHVWiBAw1LVq6OT OcoQtcFlFbORG0KbE0NBV 1yURqrY7ywWva uzewzF7aWwq+STG7xYMle VNNDZ5gElwgxEQ+PHRkIH X7qOaqYBdqMHAzyT2uBZR hI9n6VpIyEbP7 IDubA3QjqvQ4DKDaaBAfW JClfEFAmG7uiuxkz3bwth zbKiQsPDNkKKr7TTp3RCI saWduOiBsZWZ0 XzA1MKZ7pEXjgY8aoAuza edsdB4kDzd+QmlydGggRG Z1XTk9D2KwUyf5RBIukUk oQK1kkOBxHUlz Eo4gwEoltRbpDY8aWQZmc wsvk575CtMey8isVWTnkC PbKHdrJNY7F68ag7R5SIF jAEQeTKO0rDN7 aA7fuPqamndrkKCueDpwl bHkxSlgMMdoRNkbC780NX TytSycGqYxIPn1P0RsOvs 3LQAjlMlwBH4m xGUfSNxgXj8pyBdtzLgcN M5qUVRxgpsls042DuZdt3 koWALquGZjAWahWWR3F19 vc9L1JYFkMQRm RGE5hBB2zV3buLcuadipq GVmdDsgdmVydGljYWwtYW ghR223NSZrhQqnQeXbkXp 3M5SeXjz0SXXe fIvxDJ0gcNRdTEljHg4ge FkgmPrgSJ8cSSVhazdqh0 75WxPdr2tvRAEewMEyBCu pGDR2G28rx9K7 VEWsGQDgHDE7xSR9wY0lm GlnbjogbGVmdDsgdmVydG swXEtaVUodJ046ZLHsfPx nPlBhdGllbnQg UWboIXa3C9CdVwxcwYW+P X31PTUaAW47mIBuqGDpf3 ywoVo8DaQvBWEkSTD7qMw oZSpvf0PzAEXr O45jiPWvs6V4MRJctOcrs KNsDaAhfYX1nS2qZQrksp yyq7xpzqgfRuqen9bztb1 4aC92A33uYKlf ZHRoPSIzMCUiIHZhbGlnb h6yvW0bOe0+HFIfuYM5bR Q9fW6oKMKbWfD8GClxM97 9InRvcCIvPjxj c0igb4wkfUz0SyB2RDLjl wOnsDxqZMO8a0EbYs29O6 9sIHdpZHRoPSIyMCUiIHZ gaJprsk4zdQ7s Ii8+LEQjgHZ2aIJ4nL6dQ uKtVcX7ZBzdY103ElZqcC JgKzyhT45bC0KimBF+PHR nWxb2OWRfjXsq TS6jsDHsGMqsYk1rWCG3N xBoEkMvAIifE2SzWCXtkt hryinmzKK5PTQlHZKjuV0 4Ug3bxJxtDAJs gEQAuV4xsmtca4xducroI bEtHOLxFHa6QJl0ZPPjgF hcEyAvIWK8QkQ7IZZ2eKK cjF4drBdbpdzl uH2gA8BtJYRawbocKm31s Z3cJpWwYxV0DJqqFnm+Ql BNXr7HGVquYOMJBaYaAXo vdGQ+PHRkIHN0 lMyoHSupQACydN0fPEJoB 3v0XoQeWoC7TErlE9LxRW YuuyroOm60vS8tGmWbCpZ 4VWlaT0OiunU4 LWQcgTGgAJtoWWS7S58rl 7S1TUNoIECgCLE9sOJ6bZ 1hbGlnbjogbGVmdDsgdmV ydGljYWwtYWxp M489JXJceJndVjA5JvPhJ eK2DdQ5K2ZmQlk5ZDLliX jmVC3ikFOmINyuLu0rpKk caJjwYB6nNTBh exsrLIIwqH3xKRXbgENqr CirQH5dODGowbevb812Ze CgMIF4ATOdvUMbQ9InmX1 yOiAjMDAwMDAw Q0VqrASaCPciB905MPcbB lL7KFVrwnKhJ1LgZOKbpH koIaJ1u9R6Be11JYPFGWI yczwvdGQ+PHRk VWM2iDjiZCmrLKJimH8oU ATsB6n4MsRiSkG4SDxeT5 RzWDAgtmecDk82hD1rUtO kIkH4LDnaT3Sn kjY0FHDqrCHjJVecMVX2Q 86hz0A8RKPfAGVdBRK4tP Q6zY9frRfxwvsidMHtfNl gdmVydGljYWwt VYwdJ439JFExyQmkCjKur WFsZTwvdGQ+IDOgKLP7yM elUOhbOYSbmH5hKQOqG4s 4NnEvOfL3NVjj G8NsQYBwovjvFf00fG5fR gAuZiI8HAgmM1PykvR9OB XttGEcEPdjGHE5J12ez0F 9YSBuHQQrYCW8 nOR1gT3zmIksfefyxLMhl DsgdmVydGljYWwtYWxpZ2 20PUXxpGuaMf46xDGliOb dqrC3C3EeFcxx dHI+ZJ06UCUgQJ44oOUwk WGhp4jmwQi5CgMwJHGrIF M4vOycLDoxk1WtTVZxL59 haXSdv5L1IVNn jKuquBJdYiDfyRY3aG9kZ Fskmdmlc2oblqzqMtkev6 rdfn80yM32E02pEIxpWNT oPSIzMCUiIHZh rOxous5tyB1kVe2+PGNvb AV6aSR1nX9jQtYkZjB7TL stV583OrBtsRUlXpplq2l wm4psmIe5MuSp ULAdecHyeSidIOJ5n0FqT r51S89cNGouVKWhVPNdOW VcAXFwcGjnav9vvN3mFv4 +OE5fc7vfpf56 mG76fFH+BOYlHXJ3rYdoO ZwbUGHeuX4cTZzaDiF5QS EpWnOqfV57eWExJCttDt6 gkBzioLbbMV1q PUFfqbmwn479UdFqp3qwT IRtlMHvSIwmCLZ1I04lb6 Q6RVPiKJQxTPL5rES5qE2 hbGlnbjogbGVm dDsgdmVydGljYWwtYWxpZ 627QLTtiIpkVeGywTHpM9 srumSLJC8gFwzbxPF+PHR iCQG0kPruXHeh VCYsyM0aAEBrS6w8ViTyT nA7ZLjxQ4FqggO2DVEzyK HmVJJniEWVbP1bqkwmy4x vcjogIzAwMDAw INp9VMk3HCYqsUimXtXuP NL7RtG4IXY6jLElvV0swG kxsmvebB6oGtv+RklOOjw vdGQ+PHRkIHN0 fRspXJzqYYRayW8jCJPuV 8f5ZtLdFaS2HTxgZ1Qzgx D8VXOonTVjLTOhkDJQlP3 oxuuqr9qfpssf WuIuPKHvIMq5GJu8ODCel JovQcOdUOD9RdC2SHS9xX GcmX6srPrmzvyraI4dUfc +TVJOOjwvdGQ+ ZOIdUFK5vCyiRSwiZPOvb O9bMNTaI6m3AvPrGnV8ZQ jtV4HwdzO4BWDsaGLoQTU bwEOLsX6dtufb v7nxslfvDvErURRuMFa1Z Vo0PUBciQjrXnDfOZC1Di C1SHR5eEJzrD1snEunydw sfS6uCyp+UGF5 JZZ6BU22YD82J7LtXubfm GFibGU+PHRhYmxlIHdpZH RoPScxMDAlJyBzdHlsZT0 jQg9oDLNyIYNu bGxh (more content not included)... [facility] Consent for Treatmenton Consent for Treatment [id number] #1.00CD:[address] [facility] Consent for Treatment [id number]# 1.00CD:[address] 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 Hypertension / SNOMED CT 5225067404 / Confirmed Anxiety / SNOMED CT 73208577 / Confirmed Lumbar disc disease / SNOMED CT 1222502514 / Confirmed Lumbar radiculopathy / SNOMED CT 789561078 / Confirmed Chronic gastritis / SNOMED CT 06817968 / Confirmed Migraines / SNOMED CT 33146084 / Confirmed Insomnia / SNOMED CT 331476334 / Confirmed Colon polyp / SNOMED CT 514902857 / Confirmed Chronic leg pain / SNOMED CT 432740308 / Confirmed Laxative abuse / SNOMED CT 372935080 / Confirmed Chronic cluster headache / SNOMED CT 382189911 / Confirmed Vitamin D deficiency / SNOMED CT 83067401 / Confirmed Hyperlipemia / SNOMED CT 88467554 / Confirmed Osteoporosis / SNOMED CT 908642834 / Confirmed 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 Resolved due to patient discharge. Resolved: Impaired skin integrity / SNOMED CT 22292300 Problem added on documentation of skin impairments. Resolved due to patient discharge. Resolved: FH: migraine headache / SNOMED CT 593627553 Resolved: FH: osteoporosis / SNOMED CT 7139762408 Objective Vital Signs 10/10/2022 13:14 EST Peripheral Pulse Rate 62 bpm Respiratory Rate 12 br/min LOW Systolic Blood Pressure 135 mmHg Diastolic Blood Pressure 68 mmHg Mean Arterial Pressure, Cuff 90 mmHg Gen (more content not included)... [facility] Comment on above: Result Comment: Elec tronically Signed By: Sophy Rush PA-C\.br\Date and Time Signed: 10/10/22 13:32 EST\.br\Electronically Co-Signed By: Derick Meza MD\.br\Date and Time Co-Signed: 10/17/22 18:24 EDT Office/Clinic Note-Nurseon 0 10-10-2022 Office/Clinic Note-Nurse [id number]#1 .00CD:[address] [facility] Physician Orderon 10-10-2022 Physician Order [id number]# 1.00CD:[address] [facility] XR Spine Cervical 2 or 3 [...] mGy = na DAP = na Normal [facility] Insurance Correspondence Off iceon 09-08-2022 Insurance Correspondence Office [id number]#2 .00CD:127 Normal [facility] INSULINon 08-28-2022 Insulin 53.4 uIU/mL Critically high 2.6-24.9 [facility] Comment on above: Performed By: #### C BC #### [facility] [address] [place] [address] Dr. Jeffry Daniels CBC AUTO DIFFon 08-26-2022 BASO # 0.1 103/ul Normal 0.0-0.1 [facility] Comment on above: Performed By: #### C BC #### [facility] [address] [place] [address] Dr. Jeffry Daniels Basophils/100 WBC (Bld) 0.9 % Normal 0.2-2.0 [facility] Comment on above: Performed By: #### C BC #### [facility] [address] [place] [address] Dr. Jeffry Daniels EO # 0.2 103/ul Normal 0.0-0.7 [facility] Comment on above: Performed By: #### C BC #### [facility] [address] [place] [address] Dr. Jeffry Daniels Eosinophils/100 WBC (Bld) 3.2 % Normal 0.9-7.0 [facility] Comment on above: Performed By: #### C BC #### [facility] [address] [place] [address] Dr. Jeffry Daniels Erythrocyte distribution width (RBC) [Ratio] 12.1 % Normal 11.0-15.0 [facility] Comment on above: Performed By: #### C BC #### [facility] [address] [place] [address] Dr. Jeffry Daniels Hematocrit (Bld) [Volume fraction] 37.0 % Normal 36.0-48.0 [facility] Comment on above: Performed By: #### C BC #### [facility] [address] [place] [address] Dr. Jeffry Daniels Hemoglobin (Bld) [Mass/Vol] 13.4 g/dL Normal 12.0-16.0 [facility] Comment on above: Performed By: #### C BC #### [facility] [address] [place] [address] Dr. Jeffry Daniels IG # 0.03 10e3/ul Normal 0.00-0.03 [facility] Comment on above: Performed By: #### C BC #### [facility] [address] [place] [address] Dr. Jeffry Daniels IG % 0.5 % Normal 0.0-0.5 [facility] Comment on above: Performed By: #### C BC #### [facility] [address] [place] [address] Dr. Jeffry Daniels LYMPH # 2.0 103/ul Normal 1.2-3.8 [facility] Comment on above: Performed By: #### C BC #### [facility] [address] [place] [address] Dr. Jeffry Daniels Lymphocytes/100 WBC (Bld) 35.4 % Normal 20.5-60.0 [facility] Comment on above: Performed By: #### C BC #### [facility] [address] [place] [address] Dr. Jeffry Daniels MANUAL DIFF REQ NO Normal [facility] Comment on above: Performed By: #### C BC #### [facility] [address] [place] [address] Dr. Jeffry Daniels MCH (RBC) [Entitic mass] 32.8 pg Normal 26.7-34.0 [facility] Comment on above: Performed By: #### C BC #### [facility] [address] [place] [address] Dr. Jeffry Daniels MCHC (RBC) [Mass/Vol] 36.2 g/dL Critically high 29.9-35.2 [facility] Comment on above: Performed By: #### C BC #### [facility] [address] [place] [address] Dr. Jeffry Daniels MCV (RBC) [Entitic vol] 90.5 fL Normal 81.0-99.0 [facility] Comment on above: Performed By: #### C BC #### [facility] [address] [place] [address] Dr. Jeffry Daniels MONO # 0.6 103/ul Normal 0.3-0.8 [facility] Comment on above: Performed By: #### C BC #### [facility] [address] [place] [address] Dr. Jeffry Daniels Monocytes/100 WBC (Bld) 10.4 % Normal 1.7-12.0 [facility] Comment on above: Performed By: #### C BC #### [facility] [address] [place] [address] Dr. Jeffry Daniels NEUT # 2.8 103/ul Normal 1.4-6.5 [facility] Comment on above: Performed By: #### C BC #### [facility] [address] [place] [address] Dr. Jeffry Daniels Neutrophils/100 WBC (Bld) 49.6 % Normal 43.0-75.0 [facility] Comment on above: Performed By: #### C BC #### [facility] [address] [place] [address] Dr. Jeffry Daniels Platelet mean volume (Bld) [Entitic vol] 8.9 fL Critically low 9.5-13.5 [facility] Comment on above: Performed By: #### C BC #### [facility] [address] [place] [address] Dr. Jeffry Daniels PLT 343 103/ul Normal 150-450 [facility] Comment on above: Performed By: #### C BC #### [facility] [address] [place] [address] Dr. Jeffry Daniels RBC 4.09 106/ul Critically low 4.20-5.40 [facility] Comment on above: Performed By: #### C BC #### [facility] [address] [place] [address] Dr. Jeffry Daniels WBC 5.7 103/ul Normal 4.0-11.0 [facility] Comment on above: Performed By: #### C BC #### [facility] [address] [place] [address] Dr. Jeffry Daniels FREE THYROXINE INDEX T7on FTI 3.64 Normal 1.30-4.50 [facility] Comment on above: Performed By: #### C BC #### [facility] [address] [place] [address] Dr. Jeffry Daniels T3U 34.0 % Normal 30.0-39.0 [facility] Comment on above: Performed By: #### C BC #### [facility] [address] [place] [address] Dr. Jeffry Daniels T4 [Mass/Vol] 10.70 ug/dL Normal 4.80-13.90 [facility] Comment on above: Performed By: #### C BC #### [facility] [address] [place] [address] Dr. Jeffry Daniels GLYCOHEMOGLOBIN A1Con 2022 ADA RECOMMENDATION SEE BELOW Normal [facility] Comment on above: Result Comment: ADA RECOMMENDED LIMIT 4.0 - 6.0 ADA THERAPEUTIC TARGET < 7.0 ACTION SUGGESTED > 7.0 Performed By: #### A 1C #### [facility] [address] [address] [address] Jeffry Daniels Glucose [Mass/Vol] 120 mg/dL Normal [facility] Comment on above: Performed By: #### A 1C #### [facility] [address] [address] [address] Jeffry Daniels HbA1c (Bld) [Mass fraction] 5.8 % Normal 4.5-6.2 [facility] Comment on above: Performed By: #### A 1C #### [facility] [address] [place] [address] Dr. Jeffry Daniels IRONon 08-26-2022 Iron [Mass/Vol] 64.0 ug/dL Normal 50.0-170.0 [facility] Comment on above: Performed By: #### I SUMMER, VITAD #### [facility] [address] [place] [address] Dr. Jeffry Daniels LIPID PROFILEon 08-26-2022 CHOL-HDL RATIO NORM SEE BELOW Normal [facility] Comment on above: Result Comment: 3.3 - 4.4 LOW RISK 4.4 - 7.1 AVERAGE RISK 7.1 - 11.0 MODERATE RISK >11.0 HIGH RISK Performed By: #### T SH, CMP, T7, LIPID #### [facility] [address] [address] [address] Jeffry Daniels Cholesterol [Mass/Vol] 267 mg/dL Critically high <=200 [facility] Comment on above: Performed By: #### T SH, CMP, T7, LIPID #### [facility] [address] [place] [address] Dr. Jeffry Daniels Cholesterol in HDL [Mass/Vol] 45 mg/dL Normal 40-60 [facility] Comment on above: Performed By: #### T SH, CMP, T7, LIPID #### [facility] [address] [place] [address] Dr. Jeffry Daniels Cholesterol in LDL [Mass/Vol] 178.8 mg/dL Normal [facility] Comment on above: Performed By: #### T SH, CMP, T7, LIPID #### [facility] [address] [address] [address] Jeffry Daniels Cholesterol.total/Cho lesterol in HDL [Mass ratio] 5.9 {ratio} Normal [facility] Comment on above: Performed By: #### T SH, CMP, T7, LIPID #### [facility] [address] [address] [address] Jeffry Dainels HDL NORMAL > or = 60 mg/dl - LO W CARDIOVASCULAR RISK <40 mg/dl - HIGH CARDIOVASCULAR RISK Normal [facility] Comment on above: Performed By: #### T SH, CMP, T7, LIPID #### [facility] [address] [address] [address] Jeffry Daniels LDL CALC NORMAL SEE BELOW Normal [facility] Comment on above: Result Comment: <100 mg/dl OPTIMAL 100 - 129 mg/dl NEAR OR ABOVE OPTIMAL 130 - 159 mg/dl BORDERLINE HIGH 160 - 189 mg/dl HIGH >190 mg/dl VERY HIGH Performed By: #### T SH, CMP, T7, LIPID #### [facility] [address] [address] [address] Jeffry Daniels Triglyceride [Mass/Vol] 216 mg/dL Critically high <=150 [facility] Comment on above: Performed By: #### T SH, CMP, T7, LIPID #### [facility] [address] [address] [address] Jeffry Daniels VLDL CALC 43.2 mg/dL Normal [facility] Comment on above: Performed By: #### T SH, CMP, T7, LIPID #### [facility] [address] [address] [address] Jeffry Daniels PROF 14(COMP METB)on 023 Albumin [Mass/Vol] 3.6 g/dL Normal 3.4-5.0 [facility] Comment on above: Performed By: #### C BC #### [facility] [address] [address] [address] Jeffry Daniels Albumin/Globulin [Mass ratio] 0.9 {ratio} Normal [facility] Comment on above: Performed By: #### C BC #### [facility] [address] [place] [address] Dr. Jeffry Daniels ALP [Catalytic activity/Vol] 58 U/L Normal 46-116 [facility] Comment on above: Performed By: #### C BC #### [facility] [address] [place] [address] Dr. Jeffry Daniels ALT [Catalytic activity/Vol] 41 U/L Normal 14-59 [facility] Comment on above: Performed By: #### C BC #### [facility] [address] [place] [address] Dr. Jeffry Daniels Anion gap [Moles/Vol] 14.5 mmol/L Normal [facility] Comment on above: Performed By: #### C BC #### [facility] [address] [place] [address] Dr. Jeffry Daniels AST [Catalytic activity/Vol] 27 U/L Normal 15-37 [facility] Comment on above: Performed By: #### C BC #### [facility] [address] [place] [address] Dr. Jeffry Daniels Bilirubin [Mass/Vol] 0.2 mg/dL Normal 0.2-1.0 [facility] Comment on above: Performed By: #### C BC #### [facility] [address] [place] [address] Dr. Jeffry Daniels Calcium [Mass/Vol] 9.2 mg/dL Normal 8.5-10.1 [facility] Comment on above: Performed By: #### C BC #### [facility] [address] [place] [address] Dr. Jeffry Daniels Chloride [Moles/Vol] 103 mmol/L Normal 98-107 [facility] Comment on above: Performed By: #### C BC #### [facility] [address] [place] [address] Dr. Jeffry Daniels CO2 [Moles/Vol] 24.8 mmol/L Normal 21.0-32.0 [facility] Comment on above: Performed By: #### C BC #### [facility] [address] [address] [address] Jeffry Daniels Creatinine [Mass/Vol] 0.76 mg/dL Normal 0.55-1.02 [facility] Comment on above: Performed By: #### C BC #### [facility] [address] [address] [address] Jeffry Daniels EGFR-AF MONGOLIAN >60 Normal >=60 [facility] Comment on above: Performed By: #### C BC #### [facility] [address] [address] [address] Jeffry Daniels EGFR-NON AF MONGOLIAN >60 Normal >=60 [facility] Comment on above: Performed By: #### C BC #### [facility] [address] [place] [address] Dr. Jeffry Daniels Globulin (S) [Mass/Vol] 3.8 g/dL Normal [facility] Comment on above: Performed By: #### C BC #### [facility] [address] [place] [address] Dr. Jeffry Daniels Glucose [Mass/Vol] 109 mg/dL Critically high 74-106 [facility] Comment on above: Performed By: #### C BC #### [facility] [address] [place] [address] Dr. Jeffry Daniels Potassium [Moles/Vol] 4.3 mmol/L Normal 3.5-5.1 [facility] Comment on above: Performed By: #### C BC #### [facility] [address] [place] [address] Dr. Jeffry Daniels Protein [Mass/Vol] 7.4 g/dL Normal 6.4-8.2 [facility] Comment on above: Performed By: #### C BC #### [facility] [address] [place] [address] Dr. Jeffry Daniels Sodium [Moles/Vol] 138 mmol/L Normal 136-145 [facility] Comment on above: Performed By: #### C BC #### [facility] [address] [address] [address] Jeffry Daniels Urea nitrogen [Mass/Vol] 22.0 mg/dL Critically high 7.0-18.0 [facility] Comment on above: Performed By: #### C BC #### [facility] [address] [address] [address] Jeffry Daniels Urea nitrogen/Creatinine [Mass ratio] 28.9 mg/mg Normal [facility] Comment on above: Performed By: #### C BC #### [facility] [address] [address] [address] Jeffry Daniels TSHon 08-26-2022 TSH 1.963 uIU/mL Normal 0.358-3.[address] [facility] Comment on above: Performed By: #### C BC #### [facility] [address] [place] [address] Dr. Jeffry Daniels VITAMIN D 25 OHon 08-26-2022 VIT D 25-OH 44.6 ng/mL Normal [facility] Comment on above: Performed By: #### I SUMMER VITAD #### [facility] [address] [place] [address] Dr. Jeffry Daniels VIT D RANGES SEE BELOW Normal [facility] Comment on above: Result Comment: <20 ng/mL Vit D deficient 20 - <30 ng/mL Vit D insufficient 30 - 100 ng/mL Vit D sufficient >100 ng/mL Potential Toxicity Performed By: #### I SUMMER VITAD #### [facility] [address] [place] [address] Dr. Jeffry Daniels Coding Summary.on 08-25-2022 Coding Summary. CD:[id number] G h0bWw+PGhlYWQ+FY1CGQQ pE26vzHDgzJ9KO6eAWZ9H BYCNONOPQM2VFZ5axUD0F JesM8JppjBd TtsjjIZaIW68NKs6PAD0p ZbrMXhjlQ5hnOCjP2p6Qr PmVL04mL72LFzrSQMjLyD 3LjZpbjsgbWFy U4kwXcUlqHQqMxr+PHRhY mxlIHdpZHRoPScxMDAlJy MqpFwjME6kZz0aEZYcHXT vbGxhcHNlOiBj n8kjDIAeUMonBG7tnQehT 9RzrXR4QASqc7d4Aw67eB I+GRXgXXL2tSxnHNttd63 4OsTzc6djGCB9 vSKbWEmcGYA1K32ep7W0C WVcQESxIJE3dIG4yW5mcC hggzvlH0KgnLHqEiG1DBA 5rNEefN2kpRux mbykxD7fHgh+R96BEW8PT RXJVK1KOfn0Q9WcPapnmE I+DB95HWBlDC09qKHwqMI xb5focQc9KhNr TJOwYZT1pUelXIjdw7NrF TClC32ptHSwy2S8SKXidU yurYBdKrXfpSQ3lU4eRKk ghxxqe2yqzvon Uigvq3wfpf94xZ66V91xU VhhUNAuIMS3KCIsWVEneH fpuv8anW4dXa0+SSzfn1e rk7zquZj8NrFl EHVmzyEeuDbsCEZ4s5HvS n91K5BohKjis7FpUsk6ao 05jZPnb8P1rWX5QGvpUOC hyL1tSTwmXlR9 OXKaAiRjzI73wAUnJXnbQ s9kdHmjbHzrRY9xRMBtti ngHYCmoB8pWFDhcOZiaPk aKR7hPVAzxtrm f344BzGbHED9HTQmkDLsT 4HazO6hPvVvVEPgOGHzO1 NscUQmGFdhW925MOwnBlZ 8FAZrlkKzV7Dx RZZotFdeDrQ1l0S5Df9Cr 2ZooagnYAN4OZdfHCIkDf LvToDlXvJ1G5FkWbf0AOS qvDjnCM8rD0Cc SUEvrwnrhvdgpRO7KCGmC CTmjV74sLCvBGirIs9jo3 Y3f626MNWlMDZtyN63Sd4 udDogMTBwdCBU gV5jthrhq9gqbuupAiWnY YYbGDc1PGi6YVJxdZpmOu GpUYU0SrV3LIQ1xPOrxF7 ltHsilqxxfX1h Oyc+Q42zyZ0rDOK9JWV1w ccfDLVilbBxOD22UC63M7 RyPjwvdGFibGU+PGRpdiB odPkeZL3lKzZx f6fmp2ZaSWyxD6OuBBQlY XorHzb9XUVuDEM1oKZ0cX 2fBMOkXUkjg9Y0qMG7Q7U rcsBokm1vr7uv OVXcDCltN29mjSKmw9H1H LPchZU0POWvwIuoFkYwfS 93Oyc+AJAsyCxkn9WjFty oo9ncg7onePs8 KrFyQTAzfoTzdMnhDAV1v 5YnJn28N31pGLcaFEZfKV DlZPGsKQYbsPombr7zfW3 wIi8+PGNvbCB3 gDZ9xB2bESFmRvY3WHegU 210YyEchTDtZdeml7tpe8 oesNf2AsSkHIGzzzYzsWt cIAJ4o3AsDb73 H75pTIklLRRvOPOrIZPaI PUwkPtubs0enX8oPn9+PC 0fz5nowg29xL68jDN+PHR xOJO4tZnsCVzn VOSysT7sDKuoJjK5WRWbM xWraO34bPFbUKrlVc2noU aooJrzWC3yKZAoivvhd07 4WiJla2gbTMNw rLEnRJybGKL2A15td9C4A CGpEXCaDDE0oFL3jE2cyE lnbjogbGVmdDsgdmVydGl oOMthJYyvF804 IHRvcDsnPlBhdGllbnQgT kJvTKv5C4OnGia1IYSoyX zpVT4jpRDiPOdiJq5ghPe otBlkCI1kLZDj jrmeq651EhXiz4lnKUZmd EZfEGvmJWD9W36ua6H2SR ZvIEKpSPE9fNA0vK4wyGz nbjogbGVmdDsg xcAhaVesVYmoGCsqI956R HRvcDsnPkJpcnRoIERhdG U1DL71MT22aSFlu5P4zXN 3K7PiRABnyrut lvwkcWA7PNLiFTEobX65F k5ztAysNo4kMADwOLN8SD KhqJKrA4ZzeV9xIsXcWAU zZWNvP3VwcGVl WAwzU746OEqxIrA9ZSHyp aBmY3ApHUUnsHpmWuC3r1 L3Ya3YL7X0CK67EQ53zNX ns3U3iTH1E5Mf OWRzbozijeuvuXX4VXAdC RCgfK58Xi3sbGzdXc8xCL KhTNR8AORucRIgW1KzpU0 yOiAjMDAwMDAw X2TrhANzTPrhM310LXawI bA3WQMbdfUtZ5UyEHWnkP weSdD7l7P7Jb9NIDv9ZS0 7LN78zYAmh5A6 zPP0O0QlCLRigdeddcvza PB2EAHsEFPfpX38Pg0hcC sqRb8uVBYeZZI0ZXCzsIG lS4SloC1jLcGp MENdBJNmU6UusEOyUXbxV 240AXquBxE6ONTfwdYvV0 BlYCNvbBquHsN3c4P0Eq3 EKQFcPQ43KAO2 fPF2LN29VI02F0XnIchsq GFibGU+PHRhYmxlIHdpZH RoPScxMDAlJyBzdHlsZT0 yNi8oEXKcEPEw mVapzHKwCcGvk3rpCYBhU VryBJ6dmHusH6GqjVI1RR Ldp7i7Rb84O81hC4GzwGV +SZRenLO5vRH4 uF3uFuOlEfS2TIjrY090B rBurYQjJrgga4ccd3gwhT k8CdO8GPOaxwPdaZecEJN 9m6XaEi77B53j IHdpZHRoPSIxNSUiIHZhb Zbxfo3iwI5pFi9+PGNvbC D3vJJ5hV9oYhDgLaZ0YPu jW751DfAiiEOa Orxdt4cbb4oloOc8ZmUxN NGftxKtxMxkFJE5e1IzOz 80I8XfvRkjd4WbKci8py2 9lFBck8I6cYO5 L8OjENNwchbwmNVfhBwxJ U0aHYReqkqcSAMntZ3rCU UqF1s2MqTyWoS4QUlbQ7L teoX2OIPtzRNw MDufIZK2M24iw5I0TVOeV YGkHQT7pBY3qG1qoVgyxe ogbGVmdDsgdmVydGljYWw dHRzcB820LHRh zQtiNOCfyE7fOETdvFCim FlgBI2hSLMsdospMmZZMI 2EGKLtQTbZZQSTWLQ3A0G kIml4KWWuwYke ZJ4trYLiEZbpDh2vsCewp JugTF0eUSCqtjtzMZAhaG 2rPTEapKFguQpxZR5kIRP gigori434XvJw IRE2JWIidSHpO9VreR9qG yBcGTRdULLoD8LrlFBfXV afT747EQhxFmA0DJPczjG dA3YsBRTnrSgl KfZ5y6I8Yc1uBS4kAH1eT CGgJJ30YK11gZXhy1K3tA S6Y6AfZPLoqjdxrkhwuOE 1GRNzCWJktJ18 oPToGMseCr2vi6F1p105G LGvPAChtK59Cz7huQuvCG AweTUUaQ1xjpjtf4tzldz gIzAwMDAwMDt0 SRz2BQYjhKipPlYrNRZ7D rW0DIV4iBNetG6toKpxzn njmS5cWjl+NjAgWWVhcnM 3N9SnNwu1FTDr cNbaAD5ttDJvAYmzGn4bs SzfpDikFS5sGWKitskwJQ YmiQ1nBFNwyKFgoAicZF0 yGXMseawkw073 UpCsIYP3XFGgfIMwZ9Bbm V3nVwOmPHLfYVGaX9NdbL IuHSwiG826WLmdVkB7JLN plsIjK9EzZARb hMfsMqD2w0P9As2IXY7mj BA9Y1QwPls9TTDcwFliUL 1pzKQhQRdzRz8xaZthsZt kCW3uEMKlnxht MBIibU3rLQNjoWSpeMepK S2zHOItlkeob339EwJsSO H2DVCphVHgJ5TjgD3gDcM lSLSvUFFtL0Yd oVMlKCdpX301ZKznMrJ3W RBroeTsH5VtVXSgiYwgBo A1e8C9Pt8LXBwhZI5gmdO iQC3qclT8L5Ks PjwvdHI+PG36NIEhPR92h NWbkBVpn5bwaBf1PzSwUA XfZJG1yXjqVJkoj5LcECI tL78fsSJpd2Z5 DHCimXjzhBAzKkJumFE0i R3qPOlmtwsoz7njwpqxHp vro3lphz60aZ44Q33zOLs pZHRoPSIzMCUi NDTvbYwune9kwC9lAo6+P FCjgJP5lAJ1nB1xKzEcVd Q2WMoaR012UyLpyULxScw km7fij1dsrXo5 BrLrBCWvllPfzDmdWBZ6p 3AhVk97C87dJOcdEHXjGP McMAQyPBItyIabsc9laH0 wIi8+KP9cf0hb wl58wT24eFA+NURzNMI9x XypAYjqDXYycH7bJNxuOk D7EYQwFiZyjB93cYUgNTe aYs6lnRvpvBbz FK0dFQTdlysmi031GcJfg 2ymIBTqwTRhAJczHQT1X4 7wn3M1KKXaVQYgTEB4uCS 9eI6zuKomrpqz bGVmdDsgdmVydGljYWwtY YiwY555PUUyeAehPxAugH BdY8liwcGALW9jZylkbEV +CNLmJUL9oEnh AEvhSCKwbV2rTLTcF2k0A dTvPyQ6ARscV1OmetY0UE GakDYlAYJjgUJAaI3akfm gy2reroviIoQv ABHoRHx5HNj4VONpgUuiA gMnGWX2AmV7TON0eZXbqS 2ptUhrvecvvE2eMku+Rkl OOjwvdGQ+PHRk OIF3eVhoOBfsWEBtuS8tX XAkJ9u2OhSzVvK1JByqB4 ZpkuG4RCYqiYOeTPZrlLQ UcW6xzfdwp9xy piarDhXxNLBbTGz2WJi4B QGuiSklWoNoSBC7OuG0NM N4uZMouR3cbUiqsjairW7 wOyc+TVJOOjwv dGQ+LSJrSFF4iAycOMibJ NGxoV0vIAGcP9k8CiBaYa X4LCspO0MsbwM4VXAceZZ wULHikKVNjF4p hjisp9cvwpbvYeLgKAMiV Hn1GAe1QIDonKqeHaHpKA E5MbH8JJY5aWGhgT9zcQs pztdioI0sKsp+ RDG3BXG1CV08RM46N6QbG jwvdGFibGU+PHRhYmxlIH dpZHRoPScxMDAlJyBzdHl qMB9hUi2vVYMo LWNv (more content not included)... Normal [facility] Insurance Correspondence Off ice08-24-2022 Insurance Correspondence Office [id number]# 1.00CD:127 Normal [facility] Office/Clinic Note-Physician on 08-23-2022 Office/Clinic Note-Physician [id number]#1 .00CD:127 Normal [facility] Consent for Treatmenton 08-06 Consent for Treatment [id number]# 1.00CD:127 Normal [facility] Consultation Noteon 08-22-19 Consultation Note Patient: [...] has, # 60 tab(s), Refills(s) 0, Pharmacy: [facility]/pharmacy #[id number], 166.8, cm, 10/11/21 14:46:00 EST, Height/Length [...] Oral, Daily, Prophylaxis fluticasone 0.05 mg/inh Nasal [place]: 1 spray(s), Nasal, Daily, Refill(s) 0, Allergy [...] Problems Abdominal pain, RLQ / SNOMED CT 739552957 / Confirmed Anxiety / SNOMED CT 86962908 / Confirmed 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 BMI 31.0-31.9,adult / SNOMED CT 984336493 / Confirmed Change in bowel habits / SNOMED CT 529032474 / Confirmed Chronic cluster headache / SNOMED CT 768625547 / Confirmed Chronic gastritis / SNOMED CT 49416669 / Confirmed Chronic leg pain / SNOMED CT 986110377 / Confirmed Colon polyp / SNOMED CT 347818046 / Confirmed Diabetes / SNOMED CT 891871181 / Confirmed FHx: melanoma / SNOMED CT 5089419506 / Confirmed H/O: osteoarthritis / SNOMED CT 043460760 / Confirmed 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 / Confirmed History of Helicobacter pylori infection / SNOMED CT 2974160267 / Confirmed Hyperlipemia / SNOMED CT 68188495 / Confirmed Hypertension / SNOMED CT 4897606872 / Confirmed Insomnia / SNOMED CT 757499177 / Confirmed Irregular heartbeat / SNOMED CT 279835842 / Confirmed Laxative abuse / SNOMED CT 850217747 / Confirmed Lumbar disc disease / SNOMED CT 9688012483 / Confirmed Lumbar radiculopathy / SNOMED CT 996998170 / Confirmed Migraines / SNOMED CT 94373298 / Confirmed Osteoporosis / SNOMED CT 272413606 / Confirmed Palpitations / SNOMED CT 078792434 / Confirmed Rectal bleeding / SNOMED CT 707499191 / Confirmed Vitamin D deficiency / SNOMED CT 44959837 / Confirmed Objective Vital Signs 08/22/2022 13:06 [...] lo (more content not included)... Normal [facility] Comment on above: Result Comment: Elec tronically Signed By: Sumit MURILLO, Eddi Edwards\.br\Date and Time Signed: 08/22/22 13:33 EST Legal Correspondence Officeo n 08-22-2022 Legal Correspondence Office [id number]# 1.00CD:127 Normal [facility] Office/Clinic Note-Nurseon 0 08-22-2022 Office/Clinic Note-Nurse [id number]# 1.00CD:127 Normal [facility] Office/Clinic Note-Physician on 08-22-2022 Office/Clinic Note-Physician [id number]# 1.00CD:127 Normal [facility] Patient Correspondenceon Patient Correspondence [id number]# 1.00CD:127 Normal [facility] Patient Correspondence [id number]# 1.00CD:127 Normal [facility] Patient Correspondence [id number]# 1.00CD:127 Normal [facility] Patient History Officeon Patient History Office [id number]# 1.00CD:127 Normal [facility] Coding Summary.on 08-04-2022 Coding Summary. CD:[id number] G h0bWw+PGhlYWQ+PW6TPTS yC02nnYOyoD8LG8uHYM6L GGOWZZWLJP7TUR6ggDQ4X GefH0NgurMk HhvhkTLgMB07LQl8LXE0e VygWTazsA5zcRXhA0z7Vz OqDW17cB71GSlwGWMkQzS 3LjZpbjsgbWFy I7eaXgSelNXgVzw+PHRhY mxlIHdpZHRoPScxMDAlJy ZoqKvzTN4zBq7sWKLySCE vbGxhcHNlOiBj h5mfZEFvPUxpEL4jpDvpG 0WizJL8EXGqa6p1Rh98bC I+UAYmHNV7bWwpNVaon54 9PyEmx3leFYW5 rJWnCHesQCC3A14vl5U5L XLxGPNtJRZ2iAL8kW9jqC ccpkirV6WvpQBeTtF5YDF 6vOEykE9muTlu ydtyaR4qUfr+P28KSY2FN YPZMD3NMfl5T3QkKxvimQ I+FA54XBTzSA88uNDskWQ rh0cxvQb4HvXp BZJxZBP7qJwmBFwwk9YzZ VCvD53oxLUil0P1HTVlfT fdwTNqGkGgoLI1yY7kXJl jhueuq3ncgleh Pkrhs0qnow49qG34C49wF OvhGJGvQCG8MCYsBLYkaP ntot8inM4mQf6+EClxz5g nn1ickIo5OqBa OSKgpvBzpMdbSYT8r0ClC h45G0BeoZjcl0EtBvn1al 95hREwo7Q3oRN4UGqeTVL vdY6xTLgeNgL2 BPNdZqUbdG60jFOjXKqeS o2bgPjenUviLG4lKQYhsf qePUCvzR9dMARmxDLcrNa fQG9yBULdzeao o316JzGfXRW6PLOrhLNsK 8IvdV1bYgHcXWAuQQFqN5 IhxYFgOAouU957BEurRuC 6LJFhlcJwZ5Ob ULXptQvyWkT6p3Y3Bs7Iw 4EzbnhcIMD7GYuxFLCoTb TvFeDuNrI4G9KgSuk2AAY beWwbVK1lL6Ad ANTvvewkuuauqSN5VKDwA WQytB83yISiOVecFn8rb4 Z6t106IVOcQGAsfI00Qd6 udDogMTBwdCBU eA2bcxzgo8cfwmuhAnOdV ZMjELq9PBv8INLnzLnbPv NqSBX4QlF8WTE5zTQajD0 meJycmklhmY4k Oyc+E78oyM4vOTE7RRP3t nekAGXbzyVhUH23BZ96J5 RyPjwvdGFibGU+PGRpdiB ywBqpZM1uRwHu u0reu9IqUKkmM8BaAQQbB OfeMau5NLKhPYH7jNC0gE 1xOFSxJXads4S9nWT2L2P mmlSkbp5xh7ud VKCrKFnbT28bxNWsh4V8U LUntDB1MYKscGkzEaGvsM 93Oyc+CDPayXaut0MyCdk kq0ekk0zpcLq3 DaNaVJMszsGpjTorHAU7g 4BmUr66F02mKJndSKOuKM WyYQJhYAFoaNvvaj9ebV8 wIi8+PGNvbCB3 kDK9zW8aMATcPxN7TIeuC 897DwFwaVOeMoywt0wwg3 ykaEr1BjCfHXRvspColAq hVUK3m4DdHl45 P02tBCfmKXSwREKdFWVlX AObzMjahe1beW6xGj9+PC 8vf7vllh62uD03oGD+PHR lWXS5xWbfECwr DVNgkD8cETpqNsQ5TAHhR vXtvX74vGXxNHtvLi1toY wzaZahHF8pLUYzxcoej43 9EfTsb0dxODIq aNUjJQayMBQ0G29aq0Q8W ACqAMNjHQA2qUO0tS6kdD lnbjogbGVmdDsgdmVydGl aQTklSCtqZ764 IHRvcDsnPlBhdGllbnQgT rYrZSx9O5LbIkq3SXBpxC rjYD9khWWhNBldWa8tjBd epLtiPC7cALGg midno779PaTif6vhGUNjp BLkHZifALN1K54ee8T1KA CpEIJuOKH8nQG9rA1gqEe nbjogbGVmdDsg isYtdDexSJdmNMdoA920X HRvcDsnPkJpcnRoIERhdG D8DK74VF43pNMkq4R6hPP 1B9UyBBPuezxu cjblzQR5MMDvNEUksY07B c2bpYnvIg9oCCJzYNT5TF XudULwJ3LkhV6dFdLxNLZ hRGXlV2TdoFFc LHplY185RIzfXgV4NQKth jHxW3FkFJQxjOfzVgO0o6 Q3Ea0FL3G4TW24RH94jAJ zd0T6pJR8M9Bv YVPqndnicapnlAX8BKSaT MBayH96Zu5jlCybGp1rVX NwDZB6TQYfdTJaY9AiyF8 yOiAjMDAwMDAw H3EuaPZpNJeoR249AKwxO bN0UAQebuEbB1PpULXtcR uzCnA8g5S8Pd4AOTu9OS0 8AW11xBHkc4R2 mQU1J2OfVOSxxrzwutswt BJ7JBFgRBUlbI28Me4zkW mnPj4gHAOcAIY1REBlvWU qK3MqhU8vAbDi NHTiSBCsQ6EcjDJkPVrbN 009RFnhQqH8HASriiIhC8 NrIKKzuDpjMoL3t7F8Ud2 WRJQdSL51PHB7 rFB3CS82ID88F7GdGmrht GFibGU+PHRhYmxlIHdpZH RoPScxMDAlJyBzdHlsZT0 xEc2fKTBkBJQn uCmghEWjUcAyy2dvVWZhQ YbpAT6noRhcW5YhqFS3JA Kwg1g7Cz73A19wA5VjxJE +ZVCpfRI4pBR5 mT8mOwJyCuN4XZxwX968M gZewVVzVvouu6pur1zpaC g6CrA1CFNtliPmaSchFWI 5h6JqNe69W17o IHdpZHRoPSIxNSUiIHZhb Whwmv4hyX0eVt2+PGNvbC L2vPA9dZ1yXeRkFhT1DOq iN335SqDqiMTc Zpcma1rnf2ecoHt9WgEaV JBlffHlkGhpDZZ3g6UfEo 94L5OuqUjpj5IxEoh6tf1 8aPBug7A3tEU1 Z9PfICZrqwqxjOYbaBwbT V8sHHJocvguVAWrrF4fEW OkT2i3AtEeFnT5AHxlT8N wpxN3UHMaoAXu AZmwLGH6R08uo2Y6BASwC VJoYKS3bJE6dR3rnRhsjt ogbGVmdDsgdmVydGljYWw bEZkuU493GFBu mDvqCBZqiL6fRQRcfKJgm SxyFX9yBAKthdflLoHQQF 2MYXMcINaZUOSDMNY2C7I eSts3TTGmxAij RR2kkICmNHzpWq1svIvux IyhSM4eMCXsoqulADCrtI 6dWXEfmFZyeHhwAX4sCFF ygaorq895QgGa HHE6BEFlkZGxG2HmoT8qJ gFxPERdUSHdN5ThjFNdDD dxC503OHudVdW0URJzlmG eV7ArQJYdeWsy WdA8s4R7Ip0hYJ2hDY8aU EMcHX49TQ37cNJcu5K5fZ R0J7XvAMDoayiugjchcNP 6CQKmLPTdrH44 aFRiONtjKt7ui1S8k711P RHfDUDbeE94Tl8qmNlfSW AxzRQGsW3agdwhj0netby gIzAwMDAwMDt0 LZx1SGRvaPgnBlAmUII2F lR4CSH1dPNwrM8gjAoihh ulzM4iLfk+NjAgWWVhcnM 8A4KaUrq6VOZb lYlgTC9kwQPzTIziTi8kd SewvAumON0kFQBmjomlPK QzmH2vGRKkjXHinAoqSL7 tMEFimbfdw818 LdPxCET7HOUgbNMcB4Blj D1nWeOhXCBaBQBbH9NaoT SgDYohW592XYimQwA2UNQ dabXdG9MyFXXs vNsjHbY5p0Q1Ew9PVH3nw GX2X5VgEgh0AMGazGfcIG 3rhBCyRHflBu7bnVfrlZe yWH7bGDGlnelx GEYckN8kZHWduSDjsMamM U7zMVDphioci327QtGiWD H1FPWzvUIiN5UbtL8yQoI fJMMsVFOhM5Af oWWoDIxaA342DFaiGyG1X IJgwkSkJ6DyMWSmqQjpCb B8j3Q8Iq1VHMomJP8fkdN uDE1bowL9K9Te PjwvdHI+NV04BVRxRR08e FZuuDPzj1gnkHt3JxOmGA TjXDV8eKpnCJong5CxJDS gL34hlKPkm9J6 TSZmzXmfpELzRzWrjNF2y H4uHFizyxagl6ybdqefYw had9vruj56zU70M09wIGx pZHRoPSIzMCUi ITBjoZgxka4djO4dNx8+P ONkoNT9hUF1rY0aWgUsQm C7DQbzC433JiLzfIGtGcv bg6nrc4ghnEs8 JlChLRLizwNmiWuoMXP1h 4ShFj94G54nVGnmWULjYS QlMKRkEYDonApywd4zqM1 wIi8+GR6gl9pq yz40hP75vWB+DLAkTOY0d IasDCmeWFFrdH8xYOhgAw W4KOZgJgEfuD34xUAwPXz oPe7jwBhbvEbq MN0rIYUtlhecg510WwNlc 6inOKDrhMPuYPxcPGP7C8 6ub2R6XWZkZXDuIOH5aOH 3cQ6hvRrejaov bGVmdDsgdmVydGljYWwtY TjaF647HTBrrLfgPdSwdQ UdT7gociNZQC8rZefacAR +UMCvVME3pYwj BNwtHGTxsH2cSWSkW5y8W bHcKmT3MSrpN2YhekH8FJ NcxNTfMNShrXPRuC3sxnh za0thezpwGcPe AMXaUNn0BOa0WPJigIevC cZnKNX3MsJ2FYL4cEVovW 1opBrjtcplxB2yLou+Rkl OOjwvdGQ+PHRk VLA8iUflRCsvJDXdvJ2aO HJfR8e2ZjDxIzR6GQsmQ4 RvsmY3TNRjdNCqFOLgeER CeL4zxzjcb5ju ppuaCkFcEHFePTt9IFp4V VSsfSqxZvOeRWN1PuF5MA Z7wJGwgW3npQioutzhoO4 wOyc+TVJOOjwv dGQ+XSGnSYH0jLswBDikQ DWelZ0eMKGjB7w6BrZoAf B8FMrgI5FjqwV0AIBcnBX cGWBqxQNGeF2g yyvmh6legludWbVqSLJzZ Gl0ZSp3BLQgaPjhExGaCN R2TrQ1SZD4zMApwA1qwCy vivowdX6jEim+ XGB0CJD8HB57OK73J9VfQ jwvdGFibGU+PHRhYmxlIH dpZHRoPScxMDAlJyBzdHl vZF7oNw8hTDNb LWNv (more content not included)... [facility] Capillary Glucose POCon 07-07 Glucose [Mass/Vol] 103 mg/dL High 55-99 [facility] Comment on above: Performed By: #### 2 [id number] ####[facility] [address] [place] [address] Consent for Procedure/Surger yon 08-01-2022 Consent for Procedure/Surgery [id number]# 1.00CD:[address] [facility] Consent for Treatmenton 07-07 Consent for Treatment [id number]#1 .00CD:[address] [facility] Discharge Instructionson Discharge Instructions [id number]# 1.00CD:[address] [facility] IntraOperative Documentson 10-02-2021 IntraOperative Documents [id number]# 1.00CD:[address] [facility] Main OR Intraoperative Recor don 08-01-2022 Main OR Intraoperative Record IntraOp Document Type FTPM Summary Primary Physician: Eddi Arana MD Finalized Date/Time: 08/01/22 15:35:58 Pt. Name: ELISEO ELISA Amita /Sex: 1960 Female Med Rec #: [id number] Physician: Eddi Arana MD Financial #: [id number] Pt. Type: P Room/Bed: / Admit/Disch: 08/01/22 [...] Performed Surgeon - Primary Scrub - Primary Station Mechanic Helper - Primary Time In 08/01/22 11:25:00 08/01/22 11:25:00 08/01/22 11:25:00 Time Out 08/01/22 11:31:00 08/01/22 11:31:00 08/01/22 11:31:00 Procedure LUMBAR EPIDURAL STEROID LUMBAR EPIDURAL STEROID LUMBAR EPIDURAL STEROID INJECTION(.) INJECTION(.) INJECTION(.) Comments Luzma-student Last Modified By: Ria Martinez RN 08/01/22 Ria Martinez RN 08/01/22 Ria Martinez RN 08/01/22 15:34:03 15:34:03 15:34:03 Entry 4 Case Attendee Shashi Ambrocio Role Performed Unit Aide Time In 08/01/22 11:25:00 Time Out 08/01/22 [...] Applicable) PreOp Antibiotic No Time Out Ria Martniez RN, Myers Given Participants RN, Sumit Monroe [...] and tissue Entry 1 Skin Integrity Intact, [place], Warm, and Skin Abnormality No Dry Outcomes Met? Yes Last Modified By: Ria Matrinez RN 08/01/22 15:34:52 Post-Care Text: The patient [...] from signs (more content not included)... [facility] Main OR Preoperative Recordo n 08-01-2022 Main OR Preoperative Record Holding Area Document Type FTPM Summary Primary Physician: Eddi Arana MD Finalized Date/Time: 08/01/22 10:43:25 Pt. Name: ELISA LEUNG/Sex: 1960 Female Med Rec #: [id number] Physician: Eddi Arana MD Financial #: [id number] Pt. Type: P Room/Bed: / Admit/Disch: 08/01/22 [...] By: Coco Mendez RN 08/01/22 10:43 [facility] Operative Reporton 2 Operative Report Patient: [...] Arterial Pressure, Monitered 106 mmHg . [facility] Comment on above: Result Comment: Elec tronically Signed By: Sumit MURILLO, Eddi Edwards\.br\Date and Time Signed: 08/01/22 11:33 EST Insurance Correspondence Off iceon 07-24-2022 Insurance Correspondence Office [id number]#2 .00CD:127 [facility] Patient Correspondenceon Patient Correspondence [id number]#1. 00CD:[address] [facility] Coding Summary.on 07-14-2022 Coding Summary. CD:[id number] G h0bWw+PGhlYWQ+AA9XTPZ yU74vrFEszG4SH7cWRO0M JDULYWAHGR3DOC0arVZ4W NzqD4UbxgYp JhlmlAZgTO87QLp2HQY5w RkyVLeoaF6siYQtI1o9Gf NiAW25iY47VKngQLGmZiV 3LjZpbjsgbWFy V1buEmHufHWpWum+PHRhY mxlIHdpZHRoPScxMDAlJy NahXzkYE4xSa4oJEMeCOH vbGxhcHNlOiBj p1jjACBnREljVI8qbQnrC 6KisEL6LFEmn2z4Lp31tK I+MSEeRIG2sWknBHsqy46 0VsGke2pvTSL6 dKIgBZrwNXX2Y78sh8Q7M VAuVQEdCGI9aKH2eB4pxB hqzpvrM8TeuAOeXhQ0HDT 1yPYqhI6jqIoy wsjpwH2vEui+Z49TJJ3PC WWTTN4VKth7H2XrNtswzV I+ZP23PZKuKK97zDRhnON sl0rtyAk0DeTo EFTuBNB1fBrlKAfns6BfE EAvB47blLBmi8Y4PSTobR ultGQlDhYcfWC5cZ4cGVu kpucfl1trksji Zxpjq1ttsq22zD77Q86uS KnlQWGdLVF8AEAgZTPbwP lnqk9wzF1qPk2+XCyjn5k ut0gblXc9OpAq ASZawxYsxTdoBPW8z8NmP v66U9ZskCmvy0FaTyz8zh 16xRMoz6R4nGF1TIdnYTQ hoI8zFUqrMkA0 FILaUzLuvH32mRCkVIziB k0ggMprtNyyBA4lTHYxfo cvYOSrjC5nEYSlaNWhgCn sFR6uHACtaenr y774PvOdOZM6OTLugTXbK 6GppX2uYxKbBEVcGCYjR9 IsgIXkBYygB709FVgzYsT 0VFWiglYeE1Nc HODaiSufPeR7m0W5Lh2Gx 6HnhgjdDHJ3XGesQLHgGj U2IaDpNgO7V1BwGjy3LUF cwRskGP9fM3Kz NIGlcfgfaplktLA6JAAdD BDmyH48iHOiGSrmTe2be0 Y9z631BTFjERLbeV97Aa7 udDogMTBwdCBU lI5jbtncs8doudfnYvXfK OZzREo6AXf7NHDmzGyyKn PlXEP0OjX0UMG1uSXfiS3 zjMazcvwpwD5v Oyc+L14fgF8yONX2XZM5w xleCQYrhxXoLD26RJ02G4 RyPjwvdGFibGU+PGRpdiB kcZlfWN5rUbOa r9zuc1BgPKflD1EzSCGsJ GskEyb5FMHyYOZ7yHM7oH 9rJHHkVUrpp8N9hFL4Y6R qubDqdh3xs7qb PCGgLXvbT26glKEqv4W3D ALvdZC7ANYnjHmeNgOoiR 93Oyc+SETunUplc1ZgOdr uw7phf0rrjFa2 TcYgPCDjakRznPynWCL1h 9MxLp91L29dPWqeFWPfQQ RuQNVkYFIfbFwdwz5ivX8 wIi8+PGNvbCB3 wLJ4hN2iTKNtKiE6JDxmW 956VtIgmOSiHumde0izm8 jqpWz3PaIcUABryeNhzNa rIQX2l4ZhOz84 F46fSWysOGIxCXAlUSUnZ NGhwVbvxd1hdQ3sMf4+PC 5qc8qpns11lT15wRP+PHR qNSH0vWndSWpw WUNmxK3iRZrzQqA8SOGqW uQxdI76lXFyWOqrBi8vrO nyrVxyGZ9fUFOiajjpy15 9GzTic1zaBTEk fFFxNQpjACN8F73je7Q5C VKlDMLqGWW3tOB6iC8gkK lnbjogbGVmdDsgdmVydGl mEUfwYHkzQ347 IHRvcDsnPlBhdGllbnQgT jUpWLj9N9PwIzt2IFAvqY mwYS1bwNKbOHgtAt7tdRs siLilHU5wLKEq rggri579RoQxw9pdCJGoz FUpPRndNKF3A92aw0K9ZL DjYERxUGX8gAD5vD8snEo nbjogbGVmdDsg mlYvgYtjXIlsBLnlS077D HRvcDsnPkJpcnRoIERhdG K5LQ31GE50tXPll9X2jJS 3P2RjYSJvrqir ryjkcKO3YMRdCLIswT67Y p9edJovZb1sAMCxGUS2JZ AaaMOqE3QvjA2kVqLwYPH xIVOpO1ZjnVLf SDltT272YQfrVjN7FTHhh tNnC6ImXNAdpBvuJvX4o4 O7Se7OA3V0PK09VT83eLZ kz5U4fZI8R8El FDYvncdladsumQE3ZYFcR KUgwD76Ka2rhSioMr9iAK VgPBC3ZEWgbCRhP3ImiF1 yOiAjMDAwMDAw U6BtvRGdKBovU018VCinY vY4HJTudjHfS7ZzHOMuhI qwIyY9m9C5Ay4JYGo8XB9 2EQ15iGTlk9B3 ePX7I3ScNGZftqzxetrhq HY9SESrORGgfH33Ud0hoQ elVk3lTGXeBYB5BDRokSG lG3IwdQ1mOnPn SGTrQWWzX3OvgBTiPPiwG 960UAzaYyL3AOMujrBuW2 BwWFLejKjbZbU9k5M4Mw0 HYPPaDA25ADP5 iEK9FX47AT20T1VcIqpxu GFibGU+PHRhYmxlIHdpZH RoPScxMDAlJyBzdHlsZT0 jTh2zAOPoWLFi dQjwoCYtIrSty1mvZNNcA FryMX8ufJqxN0PliHD0SO Lvk8j9Dy55R58eP6JzbLU +QJHbiHS9dJO8 yT2kVhZrDqO7LMxxS359V uQtlPXfEhdxy8ztu4ptmM y7GbE4ARAmcnVfgLuhXJX 5l5FaHo57K04h IHdpZHRoPSIxNSUiIHZhb Lxgar4nwJ7fUu5+PGNvbC K5hND9bG0fEpHhTjU1FTd pH366TdJwmSBs Kyhex3zry8nmnRb3WxUsN GSveoJsbTxsBKJ8s2BjEs 40D3JmzCiox0YaIev0gu1 2yHEvr6A1xOM1 S1FwELTwmufujEGqnXzpX B2fUMTlfrjdMRBskF5wJS GmU1j8IfGlUhX8MHxfG7F hxcK2MBYcySGj XZvtHBC4D21ui5J3TRHxH NGvJKM8jTI0tK9juNhgyn ogbGVmdDsgdmVydGljYWw hKZzmR825CNSz eGgoTAUmyA3rRBEahKKxo TzmFV2hNUUbjqzdAtNERU 1RIZUaJQxGNSMICYK6E0L pRik7EQYvlGjs NH2xnBMnHIonQt2leOiks CsjCJ7oOQQkthmqJGLomS 5gEVFhqCSknIesLB9nUWK ifkgyo331NmNr YDJ4FLFoiHKyF7JbsS1fV yKtPCCgPVBmT7VtiAQdYE jxI030PAssHvB4NOUlseC pE3DqYTRhlKbz GpK1g4A4Co5qCT3wRD2gO DKmOE63MN88hTTsk3Y0rL I3L5ZpXJVcmdstiqyddRI 8TVPaSLXfyR75 wCPlNSgyLi4cz7W4c813Y BFuHODiuI42Sy2gqBoiYA IpyKRQdG4qswufl0kobwf gIzAwMDAwMDt0 TXe8QWLwlJfsJeJjBOG2L rR2FZL7nDJguV7ihOpmjs zedK8xSon+NjAgWWVhcnM 6S1AlSok2VQIk dVcwVO4soSNqYAxiJn3ba PhmvZfyTP5zFUMkuhdeWT QnoM0oJZUaiOIzlUmuGI0 qXIMyfdfby411 QyKfQBO7RRIkbKKdH8Uhr H0xFkPoMJIwYAEnN1EurY IgIZusV560DSmqKrN2FHT hxeMyC9IdPTZv sMadOzF9z4T3Cu3QGX0xz IZ3A3FeOaa0OCOwzYchUG 3gyTTiJFaaUq1esPexoIc wUH6wDECfqepz FXWhpT4zNLOoiXUbmQjtA D8vDFJypbbez738XlTvTI J8HQQfpXYlM8ZyzL4nVfF cETKmFEOuS1Rx hOPkJHydL789IPepBsQ5Z IAqslDqP9ZaCDNjlOqwSw V1m4V6As7UTLdjJM6btpO yJA1uzxF5J1Ye PjwvdHI+EQ09SQDyCC36y GQzuQWwi6ctjYb5DrJyRE FaNRL6vIpdYYfdk1OeDLP nE95oyCZwo3T7 ZNVndCkrcATiHfLfhQD1z E0vBEyhgebvl4plgrrbVu yso9frsc97qK22J06lWNt pZHRoPSIzMCUi LVPgtJyrlq0xeW5iFk0+P BSqaVA9sAB6zY7pXhMnMd Y3QWmgQ351YhOgiBRuEcx nw7rav1jvtGz6 AsLiNVPhqeMujIqmRZL3j 6DbRw17O77yJQdyULWnCO XlHHLaEWNpfAygag8teT7 wIi8+XH0cs4ol cz23xH80iDI+UTEpMFU7m UikJUktMBJntI8fGXsgXo D1YJGuHjIgdR37fXDdKLx oYe4zpClraXgp IH8mTUNrgdruq567RbIjw 8nnMTWpfREyGEjlIKY9J6 8ey9K2LDIsBXRwBBO0hFJ 0yO8xfWnxyzig bGVmdDsgdmVydGljYWwtY CjmE916ACGukDjkPpDkoB MpE8leamIQIU9kVpmkfVI +UPVlGCE5mSal KOhoCMPnzS4lNLCbQ0g6T fXbBpR2UYcfN7VjfwL1MJ FlsATiOPOnjMSPkD6veyu jn9cqwixnAaFk RLDwHIc4HPn3ONXerQcjW oNtJEV1HqL9DLW3rTVqzA 1zfTxlnijgbG3dHpj+Rkl OOjwvdGQ+PHRk PUI3cRkoGKkoCKDnoY2vG BHiT9k7DwLcWnP2OVotH2 ToxbV9ZFGbyKRlCWMdtZZ QeJ1ozmdwe2yv zepmQyMzJTPwQAc8VSn0U NQczOxuSyYzJLH0VkZ6OI C1mWBniV7fwGxjnxkedL8 wOyc+TVJOOjwv dGQ+WWEjLBJ5yNqqPMobX PCffS2qBTRwN5q8WtKzLk H8PAlzQ7HekvR6SOUhcTH aFDShgEVBoO7u tklhv1byqqvtHgBkJCUiF Xa1FNv7ROJyqLcxKqReKR J8VrR3AZL7fBRnyL5gfAv ruvqtyA2zGmx+ MLG5NAT1IK03IC22B5DdB jwvdGFibGU+PHRhYmxlIH dpZHRoPScxMDAlJyBzdHl sMS9oSg3lWXIf LWNv (more content not included)... [facility] Consent for Treatmenton Consent for Treatment 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 BMI 31.0-31.9,adult / SNOMED CT 330044535 / Confirmed Change in bowel habits / SNOMED CT 871624686 / Confirmed Chronic cluster headache / SNOMED CT 658712113 / Confirmed Chronic gastritis / SNOMED CT 35266573 / Confirmed Chronic leg pain / SNOMED CT 764064179 / Confirmed Colon polyp / SNOMED CT 516882019 / Confirmed Diabetes / SNOMED CT 827928280 / Confirmed FHx: melanoma / SNOMED CT 9601445689 / Confirmed H/O: osteoarthritis / SNOMED CT 246538275 / Confirmed Herpes dermatitis / SNOMED CT 73923405 / Confirmed History of Helicobacter pylori infection / SNOMED CT 1470852357 / Confirmed Hyperlipemia / SNOMED CT 63731211 / Confirmed Hypertension / SNOMED CT 0265208706 / Confirmed Insomnia / SNOMED CT 269599725 / Confirmed Irregular heartbeat / SNOMED CT 868141498 / Confirmed Laxative abuse / SNOMED CT 529391786 / Confirmed Lumbar disc disease / SNOMED CT 7154264542 / Confirmed Lumbar radiculopathy / SNOMED CT 037808144 / Confirmed Migraines / SNOMED CT 91499908 / Confirmed Osteoporosis / SNOMED CT 048239765 / Confirmed Palpitations / SNOMED CT 747809312 / Confirmed Rectal bleeding / SNOMED CT 151913191 / Confirmed Vitamin D deficiency / SNOMED CT 26024222 / Confirmed Objective Vital Signs 07/11/2022 13:57 [...] negative bilaterally. (more content not included)... [facility] Comment on above: Result Comment: Elec tronically Signed By: Sumit MURILLO, Eddi Edwards\.br\Date and Time Signed: 07/11/22 14:43 EST HIPAA Forms Officeon 022 HIPAA Forms Office [id number]# 1.00CD:127 [facility] Legal Correspondence Officeo n 07-11-2022 Legal Correspondence Office [id number]# 1.00CD:127 [facility] Legal Correspondence Office [id number]# 1.00CD:127 [facility] Office/Clinic Note-Physician on 07-11-2022 Office/Clinic Note-Physician [id number]# 1.00CD:127 [facility] Patient Correspondenceon Patient Correspondence [id number]# 1.00CD:127 [facility] Patient Correspondence [id number]# 1.00CD:127 [facility] Patient Correspondence [id number]# 1.00CD:127 [facility] Patient Correspondence [id number]# 1.00CD:127 [facility] Patient Correspondence [id number]# 1.00CD:127 [facility] Patient History Officeon Patient History Office [id number]# 1.00CD:[address] [facility] Patient History Office [id number]# 1.00CD:[address] [facility] PAP ACOG PANEL 2: 30 to 65on 07-06-2022 . . [facility] Comment on above: Result Comment: Perf ormed at: WB Performed By: #### C BC #### [facility] [address] [place] [address] Dr. Jeffry Daniels Age Gdln ACOG Testing 30-65 [facility] Comment on above: Performed By: #### C BC #### [facility] [address] [place], [place] [address] Dr. Jeffry Daniels DIAGNOSIS: Comment [facility] Comment on above: Result Comment: NEGA TIVE FOR INTRAEPITHELIAL LESION OR MALIGNANCY. Performed at: WB Performed By: #### C BC #### [facility] [address] [id number] [address] Jeffry Daniels HPV Aptima Negative Normal Negative [facility] Comment on above: Result Comment: This nucleic acid amplification test detects fourteen high-risk HPV types (16,18,31,33,35,39,45,51,52,56,58,59,66,68) without differentiation. Performed at: =G Performed By: #### C BC #### [facility] [address] [place], [place] [address] Dr. Jeffry Daniels HPV Genotype Reflex Comment Normal [facility] Comment on above: Result Comment: Crit eria not met, HPV Genotype not performed. Performed at: WB Performed By: #### C BC #### [facility] [address] [place], [place] [address] Dr. Jeffry Daniels Methodology: Comment Normal [facility] Comment on above: Result Comment: This liquid based ThinPrep(R) pap test was screened with the use of an image guided system. Performed at: WB Performed By: #### C BC #### [facility] [id number] [address] Jeffry Daniels Note: Comment Normal [facility] Comment on above: Result Comment: The [...] WB Performed By: #### C BC #### [facility] [address] [place], [place] [address] Dr. Jeffry Daniels Performed by: Comment Normal [facility] Comment on above: Result Comment: Andra Alvarez, Overlock Sleeve Setter (ASCP) Performed at: WB Performed By: #### C BC #### [facility] [address] [place], [place] [address] Dr. Jeffry Daniels Specimen adequacy: Comment Normal [facility] Comment on above: Result Comment: Sati sfactory for evaluation. No endocervical cells are present. This is consistent with a history of hysterectomy. Performed at: WB Performed By: #### C BC #### [facility] [address] [place], [place] [address] Dr. Jeffry Daniels MG MAMM SCREEN 3D DECLAN CADon 06-27-2022 MG MAMM SCREEN 3D DECLAN CAD Patient: ELISA LEUNG Exam Date: 06/27/2022 : 1960 Gender:F Ordering : DR EMI FRIEDMAN . Admission #: [id number] Family : DR YASMINE DAMON . Order #: [id number] CLICK HERE TO VIEW EXAM RADIOLOGY REPORT [...] Treatments None Family Cancers None LOCATION: [facility] BREAST COMPOSITION: Almost entirely fatty. FINDINGS: DIAGNOSTIC [...] M.D. on 06/28/2022 at 12:18 Normal [facility] Coding Summary.on 06-26-2022 Coding Summary. CD:[id number] G h0bWw+PGhlYWQ+YR2WYDG jU16jlWYktA9NJ4uBMF4W JPZLOXBUHE0MFK8lgOR7F EjsJ0DfzlVf NitstZAeXD52IOy6MXL6e JgfRJlzaF8tlBDlY7j2Yl BcVK04jZ24TVdiUAIwNaL 3LjZpbjsgbWFy G5udWvSkgTIcXtp+PHRhY mxlIHdpZHRoPScxMDAlJy ErgIjuHI2tAq7oKSAgFLC vbGxhcHNlOiBj n7hqYHDoPIyrRU9ihIqrR 1CifVU7CIFss8o2Lv11hX I+NHJhFCV2oNpvMAjtt06 6ZrQwq6yqZXB2 pIQdCOruBIR7T39rz0L4A ZSoYPVeKJG6uMF7wD4tuM zveajqZ9IgkPVyKmZ5ZBQ 8sJJdtC3csNkh vjavxA6aWqv+Z55AVO2IE ARLKN3NMha5V3JrIemrjU I+MS63PDUbYD19vPCbzGV rz5cdaWf1ErDr APMoPBU4wJmlUWuca3XvT QMnQ97onJOnr1M4SOWmpA iklPXnUyEzeJZ3hQ9oVMh qxrauk7nzssbc Faodr3ofyt86dF50R37tW SfnJJRiHQN6JUQnHLLadK vgot2usO8yNv2+AMpeh4w vr1xwiJw0DyCc AEAtsmUllHimTWT1q7JxC u82O9EthExse8ClZjo9te 15sMSnu8V8nUN0ZEzvFDV vmJ9fOVfnBxI8 SFHaAxBrbE43gFFfMSvyS o7brVzpuOcdIP1kJZMtls mdTOHciM5lWPUcgTYojAu oMZ0mJNGlcnfl a844MzYuLQS6BTIyoBHyP 3MoeO9pCzKaFAJaNGNnP8 PjpRGgNOujN346MIltSkU 3OFDguyHcV8Ov FBBmsEvbYcL9s4B3Eh0Ub 0DsrodjYLV2FWhwENLsXt KjCjBdIjF1U2QjZll3YMG hkLkhLK8nT4Vi RELpbyzvoiaulHZ6OAUjK YHzqY65vDIvEUvfBr8jr6 Y4c276QBBpCWBbkB13Mu0 udDogMTBwdCBU gU4stdiet6chyfaiYeYaI GOnATp6VPv9NDFxyDdpOg HqXVS8PlY0RVJ5eQTumX4 dpQcydmpzfS5l Oyc+W27gzL4hDAS2BZS7n hinYQTronPjVY63SC84T9 RyPjwvdGFibGU+PGRpdiB adAnpOS8tFbXr j5nyg1WqNUzxZ5DwGNFsG KhsOjg3BUIgKPU7jMM7mB 1vKFTdYLajs4T6gTA4U1R tibNcau5hn4nv WCKkWIiyZ93fhYOjf7T5K KStlOQ7FIRbrGyzUyVozA 93Oyc+SGTdwSpbp9EhLfz kw9gda0hilRd2 YhIfSPIblqFrbOuyFBT0o 1PhCd02G36mDGqpZLItUA ZkRFCvYNOcvXtmek2ohY5 wIi8+PGNvbCB3 vKM3zS3yXSLzEbP1RKdjV 984DxFrrNQtWlalj5woq7 ymbUz5MlFhUDCqabApkYx wOWZ2r6QjQa99 T12tDQghYNSyJENhENDfR THkhWdmvj6skN2wPw8+PC 5ot0exhs78wI69hYE+PHR yHTX6vWzsIJrb SWZhmR8nRMkyKrI0OFVwI bHdaN11qHIrDLrqVi4aeG hroTxsHU9cKGFncrkwu31 9WpXso5urUSXz mYTwKDtfKDZ9U64bi1C5N QNzOWPbAQF5dYF5aT5zfX lnbjogbGVmdDsgdmVydGl gDTrqELiiF111 IHRvcDsnPlBhdGllbnQgT iVtTMg8T6CiTry4KCYnpG jjCA6ijGRcXByhQl9woLn loHizJV1qSBEj xgmxh775VeYyb2vrBQPvm AXqWTfsUST1R37zq6D7EG WuSRXnEDS7wQD9rQ9drPn nbjogbGVmdDsg mzRdhGioXVtrYGykM581N HRvcDsnPkJpcnRoIERhdG E0TS17MT27xUYrw6M9nPL 1D8TtTVLkpojh bcbxrTR9BWAiUYGdsB16I r1mbZnnRd9bDLEuTAS0PK FvbSNsH1IwkT8xQuVfXSN fJNLaV3CzsPIr NLsxM088UMjrYxP8BHEpy wHzT5FtWMJtqHhuHdX5f1 Q7Wn1GP1P4AO93AW00mIJ pj6K3qIJ8G0Mf OFXnuyxtfoaknKC8JJRzM IUdjO47Ry1zxFlfMa0xUZ MvXYP1CHJemJAkH3NfwD0 yOiAjMDAwMDAw C1DhaKTqZJpbO031IRptB zM7BGOyfnWjJ4AnKLSbfG cbJzZ9w4F9Jq5KIEs6UO6 5OQ99kZGld7C3 qPC4K0GsHCYqbsjminuvx SY1HVTrVCTzkJ72Bq2xnO mrUj6fWGVmYNC5GHFfoSD jI4WzqB2tCuDb RQUpMINxX5PjhPEoBYjrO 238WCjqZbZ4EPFkwpEcD1 YmJECmzOxtHxD0w0U7Oc4 RIZIlUL39VXU6 cAW4UU83AD84D4XkCoxnm GFibGU+PHRhYmxlIHdpZH RoPScxMDAlJyBzdHlsZT0 bHv1pVYSwNKOa uFzypRRnRdYvz9isLRWuT RuvJB5fqZatS2AfwIL6KG Jsw3l8Tn44D92zL3ToqYY +CNTwaGI3yPE5 hQ2hReSxMjJ9HApqS037M sRofQVbPnkxv1jhf6zhoB i0WzO6AJSzwhEedRikBYM 4g0LzVt49C05j IHdpZHRoPSIxNSUiIHZhb Dgsml7irC4jQe8+PGNvbC W3iJP6sQ4mBkDaUcK3JIw jZ708ClSynZCn Ksrvp9hdb0totXy0IzZmW AOqntFyhWkmGJH7l2KpWk 04Y1QtlUpop7OfLgt4fs1 1oMTtd5E4nEL9 G4ZlIRQbobmsnDSmdUerE T3cXTMcbzycCCMksO0iNR TfU2o9JzQdXpZ5LMcbH6Y ytbZ1VLThhSHp KSbgIVL8V96vs7E9OUCzM XCuKBG2cLZ5jS4qvJiwjr ogbGVmdDsgdmVydGljYWw qSRkvZ823WMIx fQowWJDjfS0yAIKcbAOld MjvBJ8dHHFpnspmFvZBOB 1MOJIlOOcFFRPOHZT0M8B rRre2FFHxkIcn IQ4bmAJwNMqhNn6uoHqmd AgaKK5nMKAkcrpjSJLfbB 0aMDVbqYDnmRitMJ6qOEJ xvcdkl820LtRj XRO0RWSbtEVmY3OopS8aW tOzOVNxSMShK2TudYUvQF xoH198FQkzBxA5KSJjqtI iY2LpQZUccRiw VjR0u2Q6Bj4tVP1gQS9sH IZfQV09PV68kALdv3I1bK O4G0OaRUSojjkugrvauUX 6IDKtVQUohE49 pTFbYCxhLx1lp0L5x718L SDxFUKqsT52Fx4elTlyVA IzuOVTeO0tkjfol7egoqd gIzAwMDAwMDt0 WQb4MGYivOloVhZrVBI7E dQ7PKH7iMJlgC4ezSzvzm pcoM2oEbn+NjAgWWVhcnM 9G4MtLbu6SHWl vPpaCE3xeVReFBvdVy6fg KhziAmtVG8hKHTzkmhuOO UuhW9aRAEqzGPptGsmRO2 rPPNdhqevf033 WvVcXGY9KXWwrYQpA5Hal M2iDbTtWOHkLCKgO1XchW NaYMfjZ084BVvySeC8WAK yypCsW4NxHOYk eSjvPnE4f9Y2Ob3RLV7kr WH5N7TmKfo6SXPuzEobGD 4fqMCxBBttPn9slTbiyKl sOA6wGNPwcxnt UQNfgW3nJADomYTjfSghN G2tFUBsjlcwh916NfTrOT V4DNKopHHrV7RjyC3mQxW jZSHsIQOrK2Sa fLZvGHlaE228SGppCjF3A BInvqFtS3ZlUDMkfGluGr E2k4O8Gv7QfYOrQWKoVX0 6CT07DE84X6Yy PjwvdGFibGU+PHRhYmxlI HdpZHRoPScxMDAlJyBzdH heEM7gOg8nEEKhCLEnmUr qfMYkCoWzr9bs ZMQsSJwcOP2lxOylU1Xji SJ9ECKiy6b0Jx34Z48jK5 JvdXA+KMEctKT5dOA6nS4 aPgZzAzZ7TPrc Y235GeFxkDCrPcwsu1dud 2mfrHs1InYpJGTwzjIvfA mbGLV8g7PxGk95B53fYGe pZHRoPSIyMCUi GTVfkIvwua8pfV6iDw6+P XWzsPB2oWB2kT0bIaTpMc G8LAzuC347DjHnaWUeExx tD91mL3GhcUP+ YLJsRth1QQKlsIjgZC4uj JIiHMmgBi8nMGT2LdXgRe QoUShoL9HmULCmexfqiwu mzTZ0WWZyQMFi kQ64Vo5xmPdaSx0pLNXiK JF5GDBhjVBnV0AdmH1gQi UpOXUaUAZaZ3YimTWdFCn dI477QAaeNbU5 QVPwqnApU5DqNMFioWegI xB0j7U0Rm0PkMtneWPdMI 2yPhXkHYv5T1BtIhm9HUJ omEgsTC6phEDy GGyfDp2afXvmbDttHD8pA UUmqtbcw519LuBpx6upMH JsaNQeQYfiBVU9I24ny0R 8QJXaJNEoWBI8 uAO2vI8ooQbbavulgVXfa DsgdmVydGljYWwtYWxpZ2 04GDRtbAjbHpOCHbu2L4C sLne8TJWzxXny CB8xoTSxNNvyBf2wjZcwo WunJL7aSWTghhlzc207Al Egp7reVRVaqCEbJJgaAEJ 3E20xp2Q6UKBx KKQlHTY4nXP1mN3xnYeah jogbGVmdDsgdmVydGljYW osLAcjX637JCMdmPcqWp1 AWzu0X9UtUjr9 XITpwErlMG6hmGChYAugP s2jbIbrqBuuXC3wDHFexn pvt331YbRsy7diFMBgyIA vPCcoQND3X29v q3W1WMIbXSAiQVZ9dCS9n R2ubXdlnvjzvEWpyUgydz UekBqdONirUTlgO428CPP vcDsnPlBheWVy OjwvdGQ+TX75xl58N0WwX regHvi9TNDxEAJ9nRN2sE 0sUJRjPNgfo3J5oMX2J1Y fvmRfbg3uz2af YXBz (more content not included)... [facility] Coding Summary.on 06-25-2022 Coding Summary. CD:[id number]:[id number] G h0bWw+PGhlYWQ+ZX1CCYS iG93mtBVnbY7RE1mOLS8W XTUUTWJUEQ3IGJ3upAE1N FxaD1JxzaQp UgdssTJtVM93HOj1WOG1c UnbDDyoqU9yiRSuL2e1Ox PeER52yU62IFttGTZhMvS 3LjZpbjsgbWFy Q1bwGnTrrJOiHrj+PHRhY mxlIHdpZHRoPScxMDAlJy ZttIyaSA6lWf5oYKUkIYY vbGxhcHNlOiBj x6aiYKOfTGgzGL0nfJdrP 7PfyYG1LRGvq1q1Br84vR I+UERnWPY2jRosPLmhs44 6IoIrd7nuFDC6 pGRbLHcnFLD7N39oy9X7F AIfVWRsDKN0sAR6zA8evY blcoosM7FpsOMeYnP5LNC 0rQYwrP4igVxl ozvmqV6pTrf+T07ACW1PD MDUPZ4RVdc4X2HrNmallP I+DR27JRNrHX00hYLgqCV nm2ouwMd6XkYf JSSlBVS7iCtsGFazj5TiN RSxE83qrQCvj9C5MUJwwM tluYSxTuUafML1hD2fSFb egdhnk7efqnvr Tilgt9kclz57iC33I87tF LtzNYUoEIG6STEbWCBaeJ pdhv2gbH8mUa9+JExpi7a hk7blfBt7WlFj HPDkyxZsdFrzXHJ5n7QtW w20N8NhuUuuk5JhBru0la 36nQLga1K2sXL4YDaxCBQ bjN1yNFxyGzP5 DHGnOyYgsC20uHPqGRmeJ l5qnEanqXsvIE2dRKZrxy lyPKGdmI8eURVtfCBbtXg lZT0nHNKarglv d363DbTvRRD0UYZjrTJlY 0AqpW8qUiSxUXIgGLDfM6 OkhJQgQCurY312JJlfGjS 4TTCaqgKwU8Gb RFMpjPnrWwW5a4S9Qn7Ey 4YuanisTWT1KAfsCMAlHd AsOrYuScW7N7YoGls3FCG ccBenSN0mU4Vh DJGhdwfrkvzrxHW4SIYoL VIcqS38hQZfAMvfRu1il2 G9i668VNSiIJTwoT55Pc1 udDogMTBwdCBU gD4tboigj0mdvkarFjFcT VXkSPo6POk8GXSlhOmpSd JdITO8QgN9WXF4iLNhpM3 qxXflmokcrS3q Oyc+X40boH2dTMR2GUX7t lgjHAUnuvKyJA63FT31L5 RyPjwvdGFibGU+PGRpdiB saDvoYM0bJoKh t5nef6FpDEqmK3FbEBNyY TyaCqa7GVWrTXN1qIH0jO 8iFXErZWgnl8T2lUX8O7N khnKumf4mz6qn QSAfKYagG06vqWVff9U0G PHorYY5MSOyiJsuEiXemI 93Oyc+GMYvoYwxa2CmRik gl0qjc2byvMw2 RsOnQIWvbgCayQisGJM1u 1WsLu72M23kUQvjADMkEN DbIEPuMKQelArlhs5smD6 wIi8+PGNvbCB3 bLO4uT3bFMVfAlV0TUsqM 921ZuCnqEYyMnpve3ffu8 wkfUc7WlIiMMYigwWbsAu kJAB1j1OjIg41 C95eRPfxRZIcLSTrZBUwB QAzyPhwwi6caD6pZu4+PC 9nj3yvgw31jA57tUW+PHR kWJS5iZuhBXph KNHqkQ3nSTnrTbF4ZLScG iVmuT45uVKeNNfdIs0ftX uwsKeaPU1pWJUdjbzgy82 3YkOef4vuWOEo aXSpHGlnXFA1K55ml1J4V WVzBOJjUMG6wJW8uM8rnI lnbjogbGVmdDsgdmVydGl kCEjcJKnhZ613 IHRvcDsnPlBhdGllbnQgT qEiGCp5Y6AmGsc9ZQJweR ewCG6tjJSaDKagJr7flEz edLkwAR6gAIId avdmx233DmQmm9ruJBHjr NTjUVteZUU9J18bd1I5SW ShEGErQOE4xXC1gK7bcNe nbjogbGVmdDsg hiFklTkkSSncXLmpX035J HRvcDsnPkJpcnRoIERhdG C0TK27HN75vYCwb1A3mZL 1G9TwORFfhnqd spqdhXF8HAAeHFIywG01W p5nzVnzAd2rSQPnTUI0FW EtkJMvP2UwmZ6sNzSnGMG hKDCaM6AwrJLv FWdgT401YXebRvI0VEAlx wFmO4JpRCKkcQjzKsA2f0 H9Pi8FE5E3WW14YO23wNE zt9I1zBF1Z7No XIQjzvjhztjxdVG2CQLuK CHhfI63Zo2xzAteJt8sXQ GnINS6JXVjsWWcG2UfyI6 yOiAjMDAwMDAw V4DlvBLsSQwuC761XPqyG rA1SWDfqfAvZ7EhLJOhbM luIyX6g1N3Ss4KFIl7LB0 2XH65sOOwf2V9 fFR7Q4QjVVDeevciavtuv LG1PHHaPDYzfL97Qd2evQ xuKr2nSLUvPYE0GKHgvRB oV2EgkO2pBuNq VEHsUUWpE3UltDMuTSwpI 041KNidHzT6ZEGiqvByL2 QtKSCxxDfdNpS0g3Z6Ty0 DBLUaBV24HZU6 fUF9LO99BS03R8YyGkgpx GFibGU+PHRhYmxlIHdpZH RoPScxMDAlJyBzdHlsZT0 vSq2jHKBfLGFt aAnvxZRnObGtp2gwLJXoI ImwXT3egEboX1CqoMR3RB Qzl2j4Vf12C10wX2WxfTK +FKMqiDM5pRG1 sO4tHnAbJuQ3MIfmO946O uKjjACaDrezc1wvu1bclG d7PbY5GZYjzaBxoEndIBH 7r2FaRj17L07l IHdpZHRoPSIxNSUiIHZhb Wruug9cmP9xLu8+PGNvbC S8bVX8pA2zCkKrTsC3SEy kB734FhVjbPFf Mwvwf1kmz4iqoFj3GcXgV OCokyYgoXztGMH7d9VhRm 38M4HahCfsy0YmWxw4au1 0uVLnc1H9qTD0 W3MpYINuapxghCQswHmmX D3fBYIzkfjdOCEiqH2uEC OlG4x8YqQwLrL6SIvpS9X vxiP1THPogVBe NRveTHD1G17gd9C7AJNqT FJhBHC0uHC5aO6yoIvxoh ogbGVmdDsgdmVydGljYWw jUOtcC093FHCk xNnfTUMwrK8lSMNieQDwt QdbQD3kFMRvjpcqApHLAI 5YEKBzJCzJTANUDQF7Q2L bFrw5JLBsgVfh PH8mqZJxFZbxBi5kwXcts VwqYX1tRKDphxloKPKoeY 2lYNWaiLGjaOguFV4wTXQ rjttoj130JcJv PLS4NHBvwTUnM4EuqP4lG fPzZHRiZRGqV9GnsEIbLC nmH501TQkwCvX3RCUsubV pH5GpBOToaXgg LcW8a8C1He8yZJ7nQT3sB TXvPI52YP33jRQxp7P0uM A2R2GpAHVzpfrjsaracKJ 2JRDxRMVuvW94 kGLmOFhhWo8am7M4y863L NAgJNLzzN36Fc1geInvBY IomEQLxH6ulpxpe9ielbe gIzAwMDAwMDt0 QMm4SCLxzFjeHhIoTOT3N mD2JWA7xYOdpC8lcPyjop yssX7mZmu+NjAgWWVhcnM 6V0WkQxh2GZPz kPfnAY7vkUOnGZexLr2ow CounLfnEI3wQQVkuqilGM TtmZ8eLJOspDNllBdxYU0 fJTIkfjszm591 AmYiDZS5NQIstAEeV9Ifg H1mVcCsHDSvGHWgZ4UagS SpRUamT235NIzfRzF9SLA imvYuZ0YxWTHj yFqsXpJ8q3I2Wu9UFM2dt KY2R5QsUyf3IYBeoMyxSD 1kpQGrNDfgYe4lhMmmdXy gJY0pORCsmqnj EHIkrE2sSHJawBMawZwyT E8uIWKxvxina696VkWaDP A9ZFMohTJsL8IxvN5pMoW xBFRxTNUvT2Gp hQOjIQldK139AXazBcZ1O SWtamVwA0YqJYSmxLsxHw X4g0R1Ha9VwTWeZJBvGK0 0ES82JJ56Y1Ar PjwvdGFibGU+PHRhYmxlI HdpZHRoPScxMDAlJyBzdH yhAZ3jNu6jCHXdFHCyzAu uyMTnJdKrz4mm ENItMJeoNY6ksMhbY0Rjj TZ9URYri7p4Ec85T67oV8 JvdXA+LELrsOY3mUZ1vR7 gPxEsIlL4CTea R999OdCatAYlOwhbu4ejw 0vouXd2BlQmQERobpBbnS ngKNX2n4VkCa98V21eCBx pZHRoPSIyMCUi FPYmxJvkkc6qlO0zXi3+P ISljAJ1gUE3yP4xPnRaAp H5GExoH125XbApnIKxRsz wT94tM1NovTO+ QBClJqz0DOJfnZykXA0ye WBlMKgxYz2yESY1UgGyUz UgJLlcZ8QuQUZkhacopiu fdLH8VBMxQKRr cV58Ft4qyLtiQq5oRFKiA BQ4HOGfgTFsO6VkwQ5aPo ScSRMyQHVpV1PwrCOsRMx jM559YGxfNyT8 IAHfamGlD3McIHIhmYtnX zR3b9Y3Pd0DtTwtxLImWK 7wWiYqKBx9F6DcBdm6HHB rxXljCV7rqBYz JRmyLl2cxFsboTqhYN6nY GEasqajx731RtAix8vmJT KbiWPbQWqbDNR3J92vl0M 0PLXjQIGbOAW3 rUZ4tA4pjOkvhkqmtIYgx DsgdmVydGljYWwtYWxpZ2 07FCFckOewPkLWErm5E3Q fDqq8CRIgnOan YA7qyRVjUFrnWs3oaZdzl AqmAB4tVFZkmhqaw020Gv Thb4nnXUZpjUOuHQrzIIG 9P25nn9E8IPMd CVNwTQI7tIJ1mI8ikEroj jogbGVmdDsgdmVydGljYW wmOKveQ114ENYiuXokLa6 ABve0T1WqUcv0 BFAfvTbkOL6ioNZaWTtaP z8ehJdncGicGL4lRUOmlf dbt295SzAzg7rnZJRwoEL sDFwhMDU7M31g r9Q7IUSrJFQcCFR3uCC1d P4fkCeymqbnpKEckVdvmm EzqTyvNGsrZUzeH854RXY vcDsnPlBheWVy OjwvdGQ+KC45zw26V7LnI pwiXzg7TQEwXCR8vKU3sX 2iWAPvNLfir5F8dOY4B1T bqxFoau4vh6vy YXBz (more content not included)... [facility] Consent for Treatmenton 06-06 Consent for Treatment [id number]#1 .00CD:127 [facility] Consent for Treatment [id number]# 1.00CD:127 [facility] Consultation Noteon 06-20-20 Consultation Note Patient: [...] has, # 60 tab(s), Refills(s) 0, Pharmacy: [facility]/pharmacy #[id number], 166.8, cm, 10/11/21 14:46:00 EST, Height/Length [...] Oral, Daily, Prophylaxis fluticasone 0.05 mg/inh Nasal [place]: 1 spray(s), Nasal, Daily, Refill(s) 0, Allergy [...] list: All Problems Palpitations / SNOMED CT 339451905 / Confirmed 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 Hypertension / SNOMED CT 9530639396 / Confirmed Anxiety / SNOMED CT 31590554 / Confirmed Lumbar disc disease / SNOMED CT 8112083899 / Confirmed Lumbar radiculopathy / SNOMED CT 299135224 / Confirmed Chronic gastritis / SNOMED CT 99739219 / Confirmed Migraines / SNOMED CT 14664194 / Confirmed Insomnia / SNOMED CT 121240936 / Confirmed Colon polyp / SNOMED CT 457514378 / Confirmed Chronic leg pain / SNOMED CT 123374072 / Confirmed Laxative abuse / SNOMED CT 783142583 / Confirmed Chronic cluster headache / SNOMED CT 693966182 / Confirmed Vitamin D deficiency / SNOMED CT 64756721 / Confirmed Hyperlipemia / SNOMED CT 91746337 / Confirmed Osteoporosis / SNOMED CT 284687801 / Confirmed 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 Resolved due to patient discharge. Resolved: Impaired skin integrity / SNOMED CT 79934346 Problem added on documentation of skin impairments. Resolved due to patient discharge. Resolved: FH: migraine headache / SNOMED CT 705008079 Resolved: FH: osteoporosis / SNOMED CT 3369518260 Objective Vital Signs 06/20/2022 12:30 EST Peripheral Pulse Rate 57 bpm LOW Respiratory Rate 12 br/min LOW Systolic Blood Pressure 133 mmHg Diastolic Blood Pressure 75 mmHg Mean Art (more content not included)... [facility] Comment on above: Result Comment: Elec tronically Signed By: Sophy Rush PA-C\.br\Date and Time Signed: 06/20/22 12:52 EST\.br\Electronically Co-Signed By: Derick Meza MD\.br\Date and Time Co-Signed: 06/27/22 07:46 EST Office/Clinic Note-Physician on 06-20-2022 Office/Clinic Note-Physician [id number]#1 .00CD:127 [facility] Physician Orderon 06-20-2022 Physician Order [id number]#1 .00CD:127 [facility] Physician Order [id number]#1 .00CD:127 [facility] Physician Order [id number]#1. 00CD:127 [facility] XR Spine Cervical 4 or 5 [...] M.D. Transcribed by: CAITY Technologist: COLT [facility] Coding Summary.on 05-09-2022 Coding Summary. CD:[id number] G h0bWw+PGhlYWQ+NX1UKXJ yA85urQZcwS2WZ1gOGV0Y NORVFOWAEA2FWB4jyKX2P FdyK9AymkOj XihnyURnBD90FEe5ACU2d CpvXYqdbI6nyOMhB3s8Wv MrWB65rJ19WCkcLDBzPtR 3LjZpbjsgbWFy X9drGyJbuUAvFdb+PHRhY mxlIHdpZHRoPScxMDAlJy NmjZtuYH0gBe1uAZJzWDX vbGxhcHNlOiBj e8tgKYGzBHxgZM9azUfsJ 7CttYP4NKIjf5s0Yw63xD I+EXHgCEX3aToaWQszb85 4MeSxs0yaZWX2 dKXgUWvuAKQ0X13sp2W9G CTpMJIdTAY0wOK2xS7hhK hdfsfrK9UsiCObFeO2BEM 3rDMwbP0ijTfm jwmbjB2pUfv+A56LKM8QU DZEVH1WDms3E2CkOgdijO I+NE69YMDgRW82bMZycFA yf9rfuJq1PsKl DDCzVNZ9yAroCMrzy9MgJ RBeQ80hcUGvy0W2CBLfpL fwdSIjCvAexJU1vI4mKUa deneqb5vmesva Rcwpf3wcxg15dF98X00tQ TuyIQRyGTN6YLDsDBYsnU oidf0ysR6hIl9+VPcdf9g au3kdjQh3PgIq FJLffdVxkUixLXM3c7WtH s96I2RqiVuln4KeAio0bq 41iYKoo5Q0qAD9RNvuYVO qtF6jATljZvO3 IQUwMuDbzG23vMVgYSkjG k0cxHnuoQilZV7hZHHeas tzBOJilX8mUMUpwFKvbQq sMV5jGHMjwzlo a266IsCqTNH4CUMhkQOuW 9NakB1jYsDxKIKhUBOcN4 GqdKNwAJbzX480TBovBzJ 5IEEprkAmR2Sq GORgySgmEzB7r8G0Cs6Np 3FdzzwyEMT2CGnoGKWcCx B6LhEyHcM9A5KrBvc0JRW tcEqfVO9oV4Wl TYEkvgljcsakaJV6PXZaM FGjvW12bUHkJGtiLj9tj2 H3x300CCEnMOAqvD70Fo5 udDogMTBwdCBU yX9uzrhmp6khyupeUsDpZ SXiBDo2QQm7QZVwtUquRt MtAKQ1IyW3EIT7dOCyiN5 qbTfzeuzugS3e Oyc+G37hqJ3iBDQ7ELW9o emmWKBfrsDeLP70FO61W5 RyPjwvdGFibGU+PGRpdiB whHjvGQ9vFmAo j4bhu4MrTXubH8DgHJNmM BarChb7HOIkMJF2hIZ9kN 8hGWJzHNvzz2X9gWU9Y9D xipNcri6eb8it QPMlKJfoF38wtOImr6J3L HGbgCX1AFVwdXhkBsLhdC 93Oyc+JDObvCqdq7LsGyw jg2rij4bgxBx5 YwCyLRJqptFdpKhgWCG0v 4DiKb79R06iNKldSGNjCN GkGKOgFQFwiTpmxu1frN1 wIi8+PGNvbCB3 uFR3jX0dNMExZuU3EYomU 726BySdlNXiDiwge3lns7 ccpNf0WoKpGEQkyiErdTe bCJJ3m8VtOw69 T63oGHcwFPDiMBQcOABmO IWzgJloyn7qtR5fDe5+PC 2zg0pdrw39qQ00xKT+PHR mHNA4bInqMIis HSSbtN0xCNvhBhN8RRGtL hGpaF86fXTuHUtiAt3zfH rzaKvlMM3oZQMcseqjh47 3BeHur1wxVHCl tNLgWVlzTRK3C53ra4M8D VEeIGZhDYV6fPM5yU6vjM lnbjogbGVmdDsgdmVydGl iASzrNKbuL409 IHRvcDsnPlBhdGllbnQgT nUpBOd6M0SaYog6ONCibK quAC7mkHTwCXvaBd5lgCv mnApgDS0jGYPm plfbq749SuEpa2hzJDEoy GXgTAuaGAR1L78et5K9US LiECUaPBV2bUH2aR9bbQi nbjogbGVmdDsg gtFmwGrjVZfeBPukR486C HRvcDsnPkJpcnRoIERhdG R3JU07BJ99hHDch2M1lRZ 1N1XbWYMakreq itajhFD8DPPsJLIhgJ09S u5hmAgmJf3xZCKiJRW1ZV KryKSvY1NdoM2oSkShUNB qIVRsT1UsxQKm NIgiX622IDcrJtV4JXIia yXjS5NaQTGinAgkVmF9l7 X5Fl7SD2J6JV39AJ17vJQ zl4C2dCT0T7Da KSLhwdmpglcymJT7NFDmD URaiX82Rx9clZbjMc7cPH SpBLE1PTQmnTLrG9SffZ2 yOiAjMDAwMDAw E5GfmQEoHNgpN009SBqdB iN1VEBxepIqN0BuOQUntU amCoY3r6S1Hj9CTJd4AL0 1BX68kDDpo3U6 eJI5L1VoDGUzjqkjyicvr IL8ACIjGHBqhG23If9qbK adZy0eDNTuTYG3IFFhzLK vT1BpvO0xXyTd WSNpSBPdV9RgxFYmIPhzA 366IPilKtS1FYVypsLqA0 EcKDCrqJzeRuC4h7N5Br4 IPGZcNH69SDH8 tND9WM48ME67Q2JjYryjp GFibGU+PHRhYmxlIHdpZH RoPScxMDAlJyBzdHlsZT0 dXb5uJGKqGFZi yKsbtLMmQoOmt0tlXAXoY XacVC2arZfmB3NusOP1VW Nxq1i4Ja75O55wT9PneLE +GILavTZ1kKQ1 wF3uNyLuGfM4JUocU554S kKciUOhVbpqi7kzh2yxsY k7AvH0XLFojpWbfKayQOM 7q8FmHc42D37n IHdpZHRoPSIxNSUiIHZhb Yrlgf8bsH7tTj3+PGNvbC F2nRO5tF5bQuTeMaC0QUx dO055DqLqmBSm Jxmba1rnm0plwNs1DxZaA BMfrnNzzTpyZIJ0z8FlVd 96Y2UkkZucb6NdUir5jk4 3qGUuo0X3nDC5 B7MbYKBeijqrdZGjfPomX Q8xOIIlotenDGJfmH9wNE AtN4k5ZzSpIzN3FYerA0S tbhU4FYIblASn LCkzIKT7L81gk9T2DIFsS QHlTJP1qEB5uD4tqJappo ogbGVmdDsgdmVydGljYWw aGJifW331KBGi bXfrOSZxmX8zEXGmuVHts IbwXN5tHNYktiyuQaWUIS 6OCQDuUHeQEHEFYNX7B5F cDcq2JFJjwGki DI6haSYdQXapLr7imFwvs ZhxWB7uWCTmvyavSRZhqA 3aCGXrfOZilTfnEM3bKCN bhcnsd650DlDx MJQ6RHEzaKLqV2KtaS8iQ aFkEMQsVRMoG3JhzOQhHK nwH997INxnSvA0CDNrgkV vN5UbOSPagJkw LqP9h4W0Fn9yVC8sAX2gG KRzBX45FF78tUWsm8C3zH D3C8BvRZZwcylbwuwwxNW 4OPWlOTGplY33 qQWhDAuwLe6da0E3p222E VBwTCGvsY25Vq2sqLetDS ZzwRUIxW4kmlxru5wiihg gIzAwMDAwMDt0 URg5GUPzqErfJiZfODF9R rZ7GKF3mEUxhF5paQfavv dbcK7qSji+NjAgWWVhcnM 5U5FlYza3RDGe tLtvLP8ghDUjCOvoTg8xj IeocEjhOV6pLEFgqyxhYL CsxF2mNPZgqKDkxVxmVN6 mZDCangsbn499 EtTiNWJ3IACenLYcF7Esh T8vXuMhQGPoRXJdI0YivR HjYHbzC231TOwvQzJ3OLV rkbCnB1FnDKSs xPfpOlU7v9R3Fx7QOK9xq ZW1O8IgOsl7SQIkkFeqVO 6okJZzBEdgMz1dpZegbSo kRQ7uNZOgwfqj CAIoeL6cJCFxeDXydJgxE H7uWZGstyvnk365NrKqYL H7FRIzmWHqX5RelX6oHjS bEOPyXMFnA9Eo cJKpFIllL079QEgaKuR0H HRwrwEbH6EaABNgjWetWy C6x6L7Sq7BiXXfVSEhKE0 6FW01TI23W5Vs PjwvdGFibGU+PHRhYmxlI HdpZHRoPScxMDAlJyBzdH maKM4xNp5jZKImZGXswCy hpURaAsIim1pc WSPkLTfyDT0xtEtfJ4Vhx SU2USNry0h8Bm54O68tD4 JvdXA+DSMzoNZ8vAA6tP2 sVnMjSfH5HAqx A599TeOnrGFuQscfn0gxe 8fmdUl1RqJbBRQvawGodR usXJU2c7KiFf18R14qMCc pZHRoPSIyMCUi RSDmrJkngz0uvK0fTc7+P POgeFM5bNZ2jK7qYoElOw K3UOjxO241GvVoeGFmEqs tB36kW2TpmJI+ EONpCon1OJVwyCifBD9gw NRdWUtqWu7uWVX9NuZvDc CrGAmwH1DkOGSfdruwaid rdUG2IRZzFKVf bO91Gb4lgGysIm4hXHBnI CQ9EMPalNKeA4NuzC8tJm ScCVPiPIWkN2FmrJJcLXt oX905VSwdRzC9 AYOnzpGhH9MdFWWrvRmaW mX3i8M9Tl4EhYkfnBSsJJ 4xSiHgACq9I2NnYft1DFK pzRnrKP9baTCe YGowLj2uqQntyZknED6bS RWsayuyc691AkTzm7sqBE TzzWNzJLswVHN3W94st0P 5ZPXnFGAuGLH4 pXJ8aF3feQnoizrcdOFhg DsgdmVydGljYWwtYWxpZ2 75LUTelGagQdZBFda6A3B nEtz4UTGxzHsq VK0arXOoHOnpAu4gvXbaf DddDV4xEGNzyhohk892Ik Qyb2kgWKSshMSnZQblUIT 0N19cv8M7GIQi KHJoNDT9iPP6pG7kmNjni jogbGVmdDsgdmVydGljYW woCQwfF569TTRchUflUe0 GPoi2Y6LgCvq8 LUXcmTlqZC9rjNDvNOizI t7omAagmSroXG1fWXTlcj mhf314KvAku5wtELDidCY bBTjiXKX1O98p a9E9PZDwQMDbXTC6kCF4u Q6clOromecbfGYdrFvpuj IydBcpYVqpNLqaU578KNR vcDsnPlBheWVy OjwvdGQ+TD71vc89M1OgU qzgBeu9BIVjSTE5lOX0bC 6fAJCrHUnif5H8vTV0S4U zdtOssb6qi0uf YXBz (more content not included)... [facility] Consent for Treatmenton 04-07 Consent for Treatment [id number]#1 .00CD:127 [facility] MRI Spine Lumbar w/o Contras ton [...] CAITY Technologist: BARBRA Technical Comments None [facility] RAD - MRI Screening Formon 0 05-04-2022 RAD - MRI Screening Form [id number]#1 .00CD:127 [facility] Insurance Correspondence Off iceon 04-27-2022 Insurance Correspondence Office [id number]# 2.00CD:127 [facility] Physician Orderon 04-27-2022 Physician Order [id number]#1 .00CD:127 [facility] Physician Order [id number]# 1.00CD:127 [facility] ECHOCARDIO M/2D COMPLETEon 0 04-20-2022 ECHOCARDIO M/2D COMPLETE Patient: ELISA LEUNG Exam Date: 04/20/2022 : 1960 Gender:F Ordering : DR EMI FRIEDMAN . Admission #: [id number] Family : Order #: [id number] CLICK HERE TO VIEW EXAM ECHOCARDIOGRAM REPORT [...] Reyes M.D. on 04/21/2022 at 19:38 Normal [facility] AORTA SCREENINGon [facility] AORTA SCREENING EXAM: [facility] AORTA SCREENING HISTORY: Vascular calcification. TECHNIQUE: Ultrasound [...] by: FRANCO TOMPKINS Date: 2022-04-20 11:04 Normal [facility] Outside Records Officeon Outside Records Office [id number]# 1.00CD:127 [facility] Progress Note-Physicianon Progress Note-Physician To whom it may concern: Patient has been evaluated for lower back and leg pain. But also popping and cracking. She has done PT in the past with no relief and she continues to do a HEP 3 x a week without half-way relief. She has used OTC meds, anti inflammatory meds and muscle relaxers without relief Due to all of these reasons I am writing to have you reconsider the Lumbar MRI for possible surgical interventions vs referral to pain management for injections, Thank you Sophy Rush PA-C, [place] [facility] Comment on above: Result Comment: Elec tronically Signed By: Sophy Rush PA-C\.br\Date and Time Signed: 04/18/22 13:50 EDT Outside Records Officeon Outside Records Office [id number]# 1.00CD:[address] [facility] Insurance Correspondence Off iceon 04-11-2022 Insurance Correspondence Office [id number]# 2.00CD:[address] [facility] CULTURE URINEon 04-06-2022 CULTURE URINE Isolate [...] F Trimethoprim/Sulfamet hoxazole <=20 S F Normal [facility] Comment on above: Performed By: #### U RCX #### [facility] [address] [place] [address] Dr. Jeffry Daniels Coding Summary.on 04-04-2022 Coding Summary. CD:[id number] G h0bWw+PGhlYWQ+GU6GKAF tK20stYTveX1DW6cWZM8T KBXUVPGCUT1MOM3ypGR8A AwhQ8FyftAx WeeopCIuLL75MKm6RFF7c CgmWIlwnR9puUIlI3u3Eg NuDZ97gC49BBjeQINiHnQ 3LjZpbjsgbWFy G6vxEcFjjXBxDho+PHRhY mxlIHdpZHRoPScxMDAlJy EniPmqCS5aRa9cTJPyTLY vbGxhcHNlOiBj c6svDKWqPWinIO8nyLqyT 7VusTD4EENaw5a5Wt86gT I+NVKzTLQ9aVnaPHnmc85 2XpWqv2pkEYH7 rBFgBWbeCOS5M03gx0I9D AAfUPKpMKO0fIA6nI7baG wxuswiZ3ZfjDTiZnQ6MIR 9qIXgzX6etOoz mjpycG6iSra+G99EGU1ES MOJKQ8XZtr8I3OlFvzgyN I+BB03WTWkHJ35lRQvwHA fi2jjcXz0EkSo EGKpUEF8bDciUAfut2SmL WLqN78ihMUhz8B9WMBcmT cfdOSdVoFjbXE4wK7bJVk lfqkjr0upweqm Yvvbx8oaei93gX74B26iW DiqKGVtAPT5DULmWPNrzI sdnl0qlS3fCj3+XCheh8k mp8gaeWs1KqIp YKNvxeJzfEvsDEN0t4RrC u32N7JxuVbbu0BkEbs0de 34nCDpr6S9wNB7RXeoLKE dmT0cDDvrZfM9 GBZiNvXcyX44sZRkQLpkC j2gdDkogQjeGR6zPRTzad laDIAgbX6yVBEvhORwpYa mDW3eBMQhgjtu l159ZrDjJTZ5BKOkzMLwW 7BzdP8tZkFmXDGiGUQpI2 PatFEvLAltF240MEelFtU 2XWUhyoEeQ6Sy XHMxjNpoSpO6u4F6Ix2Td 5CtawvlSFF6OTqoIPK9Iv OzViTvMqM7D9MvFqg2OJU ttAuiGE7lX8Ut YCPkpqoqtcoopBI3RXZuG LKwdO37jOEeWHasWd6ar7 A6p268YSEgPCKrhC58Mu2 udDogMTBwdCBU oB9ndshgm1gvfdjyBeSbE MZfCQq7PPi3FRBjyAalDf LjRXT8WyO3ARS4eJJxoO0 lpJubhgwqzM6y Oyc+L16ntQ5mEQM9NQI3w zmrVHGkhxSnRH12EV22I3 RyPjwvdGFibGU+PGRpdiB hyCbtBU9gVxHg i3pgu7CbQZgdP7SfBRKjQ GioPmi8AEWfCUO8hTH9jB 7yPFIiUHnae4Y7sFD2K8H owjIood0vs9ho XHPeUScbJ89zyRRfa3F9W NIayYN4CGBdgWsoKuPwjW 93Oyc+AIRwhNgno7CvSts ya6ese2dadRq3 UhPfZLAudwFupQouOFD5l 8IxPp19V45mSFtbKQOuYU GkDVWxGQMkmDrpmv7wmI7 wIi8+PGNvbCB3 iWK5hZ8jABSjDeB5BZtdD 115IuQbrKOrZblne4vas1 smhMn2QrTyPQSepgYzjHx fYEP8f8AxQu33 R01gFGnbYWVkPUGbSEHiX AKuhTlskx7buT1xQl1+PC 6xm0riyk76hK46aYF+PHR qGOB4hPzzMOzd QPTjgP7aBFcbJpE0DBNbE oIjmC56mZKwOGowLq5geY ewpFlwNH0xFGIcgcevb49 1IeGhr0gcCJMd pENfFQqySRY9A62dw5R8U KFfVJNoDSU8cXD8mC5dnK lnbjogbGVmdDsgdmVydGl tDYnwCTthP300 IHRvcDsnPlBhdGllbnQgT qEvFVp4K7AxOzd6VPBsqF nzUK0ciRCmQIqyJa6soPb vaBcjTW3tNSLl qjizb906PdWbq4pjEUSiv ZJbICtlZIQ6I26ta4W8ES OxACTzUMI0yVY2nT1hePb nbjogbGVmdDsg ncMojEopJUwzFYseR176T HRvcDsnPkJpcnRoIERhdG R5HG59ZE33mKCwh7F1iXD 3H8BuSPQhzdhe nmbesYI1EDFoGFEmjR23P m1juCfkYw2oCGGeIHX2WD LumZErL5EvsV2hRrVsPGJ xCOHqE8IygOLj FZynW571SFrnRnF9SQNba pIzG6XoQUJcwPxjQpU4p4 J2Zz8LG7W6UN78MP22uAN cj7P0tBR1O2Fq HIOlmegtayxeeEC3ZFCkJ EGdlV83Dm2ieMyzWo2rQD KuEDG5KGGarXGnG9JozK9 yOiAjMDAwMDAw D6OmsSLzWFobV530OGkhI kC0QSLrvjAkF8YfAZKecU ouNpE1a8A1Ww4CZUt0OA3 8VS61eVCgi5M2 cRX7N6WcGWGonesvdplri CN4KOUeILPgrY84Nu0kxC pyXx1mKWIkHSS8IUZlmDR aQ8VmjT2bVxYm MYKbPAZqV3RubNFbAUaqR 977YTntIbA7UTPcgcWzO3 IzZHGgvWrwFyQ2g1A7Qh3 TSADvUA15LMY1 dWT8XX43CH38L1UfDckqh GFibGU+PHRhYmxlIHdpZH RoPScxMDAlJyBzdHlsZT0 oPv4oXKBwYLVl vNqtcSPjUoEnk8dzETXgG AjtLC7eiNryW4HmsNZ9PE Kky5j4Jr66G28pP4AwrPD +NOCdiTM0kTF8 iY8tAjKfNfF1AIpkZ204R fByiBTrRaajj7elk2zqhV m8BdU4ARTnawEbvCpwVPB 4z3LpLn32Z69i IHdpZHRoPSIxNSUiIHZhb Pngma5swC5dIq5+PGNvbC N1dTB5dM5oHdWiPwK7WKb fU566OmPojSQx Mxrdx9eqi9olmKc7HfPzR LQefiGaqOzmOAD6p5UsYw 54Z2EivXxdr4IeTck9cy3 1tGHij9Y8hOT3 Y2UyTFMulhknxQRtzZwzZ A4rZZBtumasQHGtbE5zHX ItZ1j7CtWsByN6XZraQ6X gkkK6KPCtsHIt QSlkAOR5W97ps5I4FPDlK IVfKZG3tCH3zL8teWlnqr ogbGVmdDsgdmVydGljYWw uQPcuM156JUIj wUwmJVSueT3zODMtsERzj MfmNW1yJWQticekTjNBPK 1THPXtCUnAQQVIPZT5B0K uTal8XMUzpErt KI5noBNuVFxiVr3nxGkwm GwlBS6hPFNqenvpNDQkbJ 3sQWDoiNZdwRniXO5dBXO lpuczx892QjTe OAM9HXVngOYfU8KezE4aK sEbYYBnMFCyC9QqeMWiYO enZ169SRswFxO2KHOmjyQ lK9ClUGQjhPbc SeQ7o9C1Xf9wTW8qPE9gK CVcEC85DY60vEArr4M7iF H6I9JxNZWhtlrjyrlqeGH 0SXPhXTIpaA67 oFVlFZkdRc5mt0U4i250A JIlBADujS62Ds6dgCfjTD MkhYQJjR0ykpitn4gztpl gIzAwMDAwMDt0 WRw4QRBdoOfgNtCqJXK0C yJ1PYI6jJHkmW7tvCpcew xexP6eXdg+NjAgWWVhcnM 5A9VeHwq0PUBl vQasVR9yxZYbVGbtJv9kr AhveFnxXZ9vHVFkhjrnXQ JhcU6vZJAeeJGgvPacKF9 kBQXijqrve479 DtAaNXR8SKMayUSpL4Ziv B6uRsSuAXWfAZTkL2LirE RdQIoeQ919KBcdEfK6RFI ujeOdB2EePTPq gJzfCyU4m4F7Dt3UME3lc WU9B4BmKlc8DVOdeLwiYG 9xmTQqDTrhGr8myIkxdZc zFQ2kUHPdogel RQOzfV6lHIJtgQJpwGifE D5xGWGvhirrv116JjYcBO N3NFYiqIGhJ2KwlY5vRhJ zBLSxRMZlH8Hc dRJlGMhpY815NFkmKfK8U LDajcCcV4HiLMMwzXsfLw D8s6M6Sb3GvPKkQTLvOV7 4UC62CM58H5Vq PjwvdGFibGU+PHRhYmxlI HdpZHRoPScxMDAlJyBzdH vaVO6eDj5gKLEbWPPdvEa uqPSsUnLti4no PUNsEVynEJ9plTopN5Xia FH9VTMvb8j2Ic26I29lN6 JvdXA+INCqkHL6eZD8eL8 eToRxIjW5QQyz B928PcAesKUiEaegp1iwm 9etnBq7EhBeQRQamyDbdO yvGSC5i7UsJy07Z29oRNg pZHRoPSIyMCUi PCOmpLpdhr5yoM6dSe2+P QCydQZ8zIR4fO8lViKaYt S6FWzaC845BrIutEZpBpz qK48zU4LidRU+ OPZvHby7FZAozDlwJH6gb LSmAOdkYw7kGSW7EgVuZf OzUNrqK0IqQMAbavjwvwy fvNP1WJHmHWTj aJ23Bs1voFebAo2qQPEtL LQ0ZTOsrELeY4ZrzU6gYq EzKDIeVUGcJ2DvjXIqAOk pW804QEqiGbG3 QFTmgdEpY1ZiMXFraQffU vB8o6L7Ik4UvRakyIQcDS 6bAlFgXFk9M9JqXua2QKF taDfgOV7efWBo UUibXn7koZgspZrcSF7dJ EHezraea207MaTvf9sdRY PwfDAiXUjgZKO1T77jg5R 9VJUjDHGiKJW5 eEH1vL5psVpvczfelSEqn DsgdmVydGljYWwtYWxpZ2 21MVIxxDxgLdEIRqi5S8F mSwn9GJNjoFmm HD6hzWBkBUkaRu8xsDmud CoeIF0dOFNxnxtym935Xz Rgu1ksVKQyhKUwYMpkPYB 2I47zj1I5SGSh YPKwXBJ5zOD9gT5zmIipn jogbGVmdDsgdmVydGljYW tgVAluE157MZRzgOrnXe5 AFvc3T6HkGjd5 PDQbeMhtVK1qyGJuNVykJ y9imVrsfLpgAS5tIMWvdo nup445FxMrt4foRQXmnUN tBBwfJHH8U37e r9K8VNDjHNYoAZW3uTZ3v S2tsYxszepttYInpFszlb KyhRqxSSopCOzcE814ZGF vcDsnPlBheWVy OjwvdGQ+NN30ia23Z7BlD tguNko9LCAhHGB0uZA8jC 8sHIOwZUlia7B8kBI6J6V trxXdgb4ts2ki YXBz (more content not included)... Normal [facility] UA RANDOM W/MICROSCOPICon BACTERIA NONE SEEN Normal NONE SEEN [facility] Comment on above: Performed By: #### U AMIC #### [facility] [address] [address] [address] Jeffry Daniels Bilirubin Ql (U) Negative Normal NEGATIVE [facility] Comment on above: Performed By: #### U AMIC #### [facility] [address] [address] [address] Jeffry Daniels CAST NONE SEEN Normal NONE SEEN [facility] Comment on above: Performed By: #### U AMIC #### [facility] [address] [address] [address] Jeffry Daniels Clarity (U) CLEAR Normal CLEAR [facility] Comment on above: Performed By: #### U AMIC #### [facility] [address] [address] [address] Jeffry Daniels Color (U) YELLOW Normal YELLOW [facility] Comment on above: Performed By: #### U AMIC #### [facility] [address] [address] [address] Jeffry Daniels Crystals LM Nom (Urine sed) NONE SEEN Normal NONE SEEN [facility] Comment on above: Performed By: #### U AMIC #### [facility] [address] [address] [address] Jeffry Daniels Epithelial cells LM Ql (Urine sed) NONE SEEN Normal NONE SEEN /RARE [facility] Comment on above: Performed By: #### U AMIC #### [facility] [address] [address] [address] Jeffry Daniels Glucose Ql (U) Negative Normal NEGATIVE [facility] Comment on above: Performed By: #### U AMIC #### [facility] [address] [address] [address] Jeffry Daniels Hemoglobin Ql (U) SMALL Abnormal NEGATIVE [facility] Comment on above: Performed By: #### U AMIC #### [facility] [address] [address] [address] Jeffry Daniels Ketones Ql (U) Negative Normal NEGATIVE [facility] Comment on above: Performed By: #### U AMIC #### [facility] [address] [address] [address] Jeffry Daniels LEUKOCYTES SMALL Abnormal NEGATIVE [facility] Comment on above: Performed By: #### U AMIC #### [facility] [address] [address] [address] Jeffry Daniels MUCOUS NONE SEEN Normal NONE SEEN [facility] Comment on above: Performed By: #### U AMIC #### [facility] [address] [place] [address] Dr. Jeffry Daniels Nitrite Ql (U) Positive Abnormal NEGATIVE [facility] Comment on above: Performed By: #### U AMIC #### [facility] [address] [address] [address] Jeffry Daniels pH (U) 6.0 [pH] Normal 5-9 [facility] Comment on above: Performed By: #### U AMIC #### [facility] [address] [address] [address] Jeffry Daniels RBC 0-2 Normal 0-2 [facility] Comment on above: Performed By: #### U AMIC #### [facility] [address] [address] [address] Jeffry Daniels SPEC GRAVITY 1.025 Normal 1.005-<=1.025 [facility] Comment on above: Performed By: #### U AMIC #### [facility] [address] [address] [address] Jeffry Daniels UA PROTEIN Negative Normal NEGATIVE/ TRACE [facility] Comment on above: Performed By: #### U AMIC #### [facility] [address] [place] [address] Dr. Jeffry Daniels Urobilinogen Qn (U) 0.2 {Daysi'U}/dL Normal 0.2 - 1. 0 [facility] Comment on above: Performed By: #### U AMIC #### [facility] [address] [place], [place] [address] Dr. Jeffry Daniels WBC 2-5 Abnormal NONE SEEN [facility] Comment on above: Performed By: #### U AMIC #### [facility] [id number] Jeffry Daniels Coding Summary.on 03-31-2022 Coding Summary. [id number] G h0bWw+PGhlYWQ+LY0UHJV gK30iaZUiqR0XW5eBQU2H LERZDHVLSR3YXJ5gaHI7R WriR1IuzwGm HvtvqDHlNM34OYr7RGN4k LmpGNqitI3klYUnA2i1Td DuVF79xT92YMuaKIGlSmC 3LjZpbjsgbWFy W9wbKbOatKQrNup+PHRhY mxlIHdpZHRoPScxMDAlJy MliRkpBS5fSh4iHYVaZZG vbGxhcHNlOiBj o0hgETUkITxyMC3jmHfaG 5FtzTD3PNDfe9b7Pj62bK I+QZYmVNZ4yStdYIrgv73 2DhPgx2alZUE0 pINdQCczGNF9I80xg1G8S AQhAPYjKYI0bOC3dQ0ltH vjgtadD0FpxBBtZeH2HRJ 8pDHqgK2mrUns qktzeI0kGey+C30EKF2NY BQAPD4BJlb5L3MdIxogtN I+MD01DFCyGL28sPQldCA az4xfcLv9ShYc BUBsQBZ9yGppHCzox1HnW YOdX41xeOYei2N0SCDxuC muyHHrDzQzyPY5oT8aSWv engigl3afryij Srmrw7lhqr53fE99E25hQ YcmOYCpUAH8GMFyWTTreK xfaz8obT8zYy5+RYzqh3k jb0amlTj3ZiNs WZUdycApoAysVOE8t9ApQ p50R2PtiWwoj2CaRxz2xb 44wOFdk1Z9jAT6IGgmPTV uxB3fBIrqTlP1 GCPfBfHdlR99wMAaQXttS x6ueQhldWuaQE0nFSHkqn tvOFZpxD0iLHPumVEluYo rPB0zPRZivrka u476QhQxESM2DQMpcGHmL 1RsyU5gJdJmFFHnLFVvH3 FwwEYePCztD613NHtyZtX 2DKIvrdAgE7Yo FMRmiXrzMxK3v4V2Ej5Hq 6NjjwakYUN6SGktLKK8Aj Z5LoZrUoN2N5WdXbf1MDU lbYboCQ1sJ3Hb HQAlmneppennbOW3KOHlA PSngZ53sFEnVKdmYn5tk3 T2f903GMAaIYTsxW11Yw9 udDogMTBwdCBU oS6xqulhs5thepqoAcHgK QDdKEr5LSg9SYEyfCzwSi AiBKP1DtI0XYT4uLFjpS9 vbBklqfqfjR9j Oyc+S94kwP6aVUW6VII9n nklYYBetyHyED64IU24X7 RyPjwvdGFibGU+PGRpdiB atZywYU4zXsKt k5evc6SyEChuH4UzEULkY YsvAio2JYRxKNU7zZU2kB 8iKIDqWWzop9N5cQQ4L3U fpoYhjg0rd6io QIHsZXnhQ08zrHLpb0V7P XVrkDU5NMJrkScbPiUdgR 93Oyc+OIOunFkwz6DzGlb tb4dlo7jshXo2 TeCkUXOqdcAxnDgyGQB6k 7DxLe22J68qZTjcBDWbMH TyVTKrAPUnaMnfgx2jrI4 wIi8+PGNvbCB3 sGA8gG3uVCJkNjV0GGlpG 697GkPyvRTjUsxwn1bfe5 bafYk9UiWhLDAjunLsdUe cGBX9l6DcFf62 O25oRYedDEWiJPGnZMLyY EGhqHcgim5zcR2fPm8+PC 2cy8rxdd78lH40qWO+PHR bDEB9sIqxYEjp WUGptA8wAKlpFoJ7NQJfZ nOqkM94vGTsAKjbHo8dwK dwvAwxER2jFIYukgzbl27 9WtRsq1rhVBVi gIHcVVhuWYD8A84km3A2J KJwAXEwCXB4sME8wR3olS lnbjogbGVmdDsgdmVydGl gZHvqUGvhE850 IHRvcDsnPlBhdGllbnQgT vVnWBa3C2AiPwn6NHUmkZ rtMB1ujHSaYXwaUx3ifLw pkQbeQO5nCFIj telcn517ZuKlc7blPSMul KFvLYarVVO5W90kc2N2WX AzZZGnXMZ2vEA2hQ9leQl nbjogbGVmdDsg hrGufOkvTFwzFNuiP231U HRvcDsnPkJpcnRoIERhdG R9RI73WF75tQMdt9S3hYA 1M1XjTFYoxndu mnvliSF9CCXcLMZaoZ90X x5hgHyuWe6oDRTuRAX6WY NvjFEhV2DmpO1aAgBpTXU vQPZcG7NcdCHd DZfvF949THyvJlK6JARmb oXiW4StABXuxFknYhH2w5 U7Nz4NM2X7KL68FL18mNF we5W9zPY5C5Eg XPEnemtdvhxecUY5EJLtK XNgtU85Qv4urVceTf7tQB LzDOD6ISJfdJKcN8KrcW4 yOiAjMDAwMDAw E0NbhNEiNBjjR358EFnsI kW3XOJrykIeD5QqTDVdqE tvHgC1q7O1Ov8LRLg8JN4 2WO42mCAci3E5 sSN2K6VlPXIqgjawibjqf QG5GEPuFMTjdF86Ve8ozL noJa3hXGEdRAC0QBGavUO eY6WiyI9hChGr EQYkQYReG7FvtCSbCJloA 809KHxxSeW1QMGxggSdI4 LiOYDufPndOxG2n2G7Dy4 MUMJbHC11TNP0 zYS0JV13UV75Z5OhQowul GFibGU+PHRhYmxlIHdpZH RoPScxMDAlJyBzdHlsZT0 xOx9rQAVhBDZt wLysbPYzUaXis1wyAVPzP DkgQY2ogZpmE0JcsZH4IP Gsw8x2Ck57V99tB2EpyZC +UXEctOQ4xML8 rB7fYrYdDsE0CLtzA681O pOlsVLvJmguv1vdz9qnbL y0MtO5QPUzgdWnbLhjJMO 0h4TjEy19N23l IHdpZHRoPSIxNSUiIHZhb Retce4uvI5rVq2+PGNvbC H5aRT8aX6sCkVzYiO8FSe uZ202UmMvrLYz Jtxds4loo6yrmQr5HbYmI XGeksKheYlrTWA3z1OhDm 97H9SstMfza8PdWwi0vu7 4bZOeb4K5wUF2 J4GrIDMhugyxnSShhFprX R2yQZKpybumMQTkcH5zVB QmC9t3ToWrKhC7GNgkF3S eyfH1WXGduTEr ERpgJJI0I68yv7V7CLScQ PXjWUG3aCC3wP9hpRzxil ogbGVmdDsgdmVydGljYWw cILreF090YLSx uLdaQJTrtK1lPVTnvLHjr GbwWN2yGSAabpzeGuIQUU 9FSOZqUUuZGKKXVBU9P9J qNcd0PXUvhOlx XX0lqEXdCUdeWa8zkIrfh AmrIY6sJRFkktcoBJQjdV 8iETHmdSVjyUjvCG6xEWR rqbukz195OnYc ACI2IXQvyHGoZ9ZxvA8uT oXkFHXyTONbK0ReaISwKI woN912MNlnWhZ6XJCqsrT hK1RcYXCvqVen JpY4s3J6Fc0qJJ1wDX7lX XRjUD75IZ30sVSij5O1qE K8Z1UwYOAknarxcgkugJE 4AGZcZZGhrK31 zZJlHZttUr6ig4X7e792I FLbRUVhaM14Zg3fdChcKC ApqJVEmY2etbtpu0ifsmy gIzAwMDAwMDt0 YUv0GMFzlUxgVbGoUOY8V bL4EHI1uFFfcD5cjUbsmo lthR4lXnj+NjAgWWVhcnM 3R1NnXcu1ZVFd nAghLQ0mmIQyWCokEx0zx MkinIctQK5hBRTgdbpuFL BucG2bBBMujIOumBtmQX1 pCRTyteezs872 GhSqLCL2GAEygOMjH0Igj A1lZcNiOUCsYFQrI3IflR RcJWszK708BHkwTaJ8MIV wfzMpO8GwAUVo sXypXfH4w1W6Na6QUT9hp OG9M0XoKhd1QZVdePfsUF 9ztHGwDNfsWf9hiJwmtBt jHB4tOWBttxbi PZWfmC6kDEYggXVunPziQ D2vWMKfenmmk139QtUjWH U3ALTykHIiU8CxvM6hPcP mKKCdWXThE3Xx wGVnBSraG495HQapUoV6L ZUiifDzW7UxXLHfoJkpAq W6t7U8Pr2IdZSqBHErWZ5 2DK39LR19M8Tz PjwvdGFibGU+PHRhYmxlI HdpZHRoPScxMDAlJyBzdH twOF0gRv6sDSBzSWEgsXn tpTVkSqDvc2ct FSYyTBhaNN3vnUuxE7Keu EZ4EKCnt8r4Xb68A22eL1 JvdXA+QPFzvNL0pOO8mK0 kGhIsBnC8UXal A429UcHfrDYmJnujt4tqo 2bcdOq5SuWwDHBdbuKqbI xuXEU6e6VzOr56Y19pAFu pZHRoPSIyMCUi JGXlcLlnam3xjN9fCp2+P OCqpQT1iVT9iB8qQyJjIe R7EKqkV707QwRbhQLzVnm rJ46mD8AnyTZ+ IGEeGwy3IHHdzRgkOS4fm RQrFGuhOr6gLPB3ErNcBh OmYHtrU8UhEENsbexbupu vuFR5RPYzCMLx hY40Cr4xjPvgXa6tZWMoD XE1YQFeyPDvI8UngX5eNa FqEYLsJGSzD9YouBUrLSl qJ361YTryXvU8 VLDmwhKkB4ZxWHFlrJoaG rC3j1L3Dy7AvLrbfICxRG 1yGkGrAEm2J3TgOfv3RLH emZzxVR7ifQSo APhgDt6stVzcuDkyNF0vB LSiohruh377ZlPfv2wmST FlmFGeOHzkHFC6F60og8A 5BKKtIIAwWCM4 uLY8vX0rgBpqpifhxUYlf DsgdmVydGljYWwtYWxpZ2 78VXKkiGxxHvOPUdh3G5W dInc8ACUhaMlf BI4jaLUjALxxZs8phBago KqbTG1ePDPugzsal618Zo Afg9xyWPXfsDGjOVyjSVH 3X11xr4T7EBNj YOMzZSF6cLN0hL4rbHmhv jogbGVmdDsgdmVydGljYW phTBqrQ046MHEgjSpfNc3 RMmt7V6WaNkw0 OJOmlWvaNW1yhCXfJJpdN w7nnUunjOzcRH9xAVLdka wzd601EkYpl8fbTEFsoPP hBIcmIPG8X33s n0R7SWBrHULeHWW1rHX1p N7dhFldyuknvIErePzhaw QobQepXIbhIQcwK278CIE vcDsnPlBheWVy OjwvdGQ+PY99ns72I1KrK eqwSrj5KPDoSUM6kHF9tH 1iBBQnHMwcg9Q2fQO1F0U rzuBcqu6eh6ff YXBz (more content not included)... [facility] XR Spine Cervical 2 or 3 [...] Aldo Coburn M.D. Transcribed by: CAITY Technologist: [facility] XR Spine Lumbosacral 2 or 3 [...] Aldo Coburn M.D. Transcribed by: CAITY Technologist: [facility] Consent for Treatmenton 03-07 Consent for Treatment [id number]#1 .00CD:[address] [facility] Consent for Treatment [id number] #1.00CD:[address] [facility] Consent for Treatment [id number]#1 .00CD:[address] [facility] Consultation Noteon 03-28-20 Consultation Note Patient: ELISA [...] needs to get it taken care of. Pgbc-sma-bjxgtgc anti-inflammatory medications do not help. 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 Hypertension / SNOMED CT 2174696761 / Confirmed Anxiety / SNOMED CT 24912619 / Confirmed Lumbar disc disease / SNOMED CT 3448260024 / Confirmed Lumbar radiculopathy / SNOMED CT 600852128 / Confirmed Chronic gastritis / SNOMED CT 28875881 / Confirmed Migraines / SNOMED CT 28945463 / Confirmed Insomnia / SNOMED CT 601712173 / Confirmed Colon polyp / SNOMED CT 197875859 / Confirmed Chronic leg pain / SNOMED CT 427917164 / Confirmed Laxative abuse / SNOMED CT 235815790 / Confirmed Chronic cluster headache / SNOMED CT 260315482 / Confirmed Vitamin D deficiency / SNOMED CT 28311882 / Confirmed Hyperlipemia / SNOMED CT 64734013 / Confirmed Osteoporosis / SNOMED CT 858454295 / Confirmed 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 [facility] Comment on above: Result Comment: Elec tronically Signed By: Sophy Rush PA-C\.br\Date and Time Signed: 03/28/22 12:44 EDT\.br\Electronically Co-Signed By: Derick Meza MD\.br\Date and Time Co-Signed: 04/04/22 07:48 EDT Office/Clinic Note-Physician on 03-28-2022 Office/Clinic Note-Physician [id number]# 1.00CD:[address] [facility] Physician Orderon 03-28-2022 Physician Order [id number]# 1.00CD:[address] [facility] Physician Order [id number]#1 .00CD:[address] [facility] Physician Order [id number]# 1.00CD:[address] [facility] Coding Summary.on 12-29-2021 Coding Summary. CD:[id number]:[id number] G h0bWw+PGhlYWQ+OO8YBAH aB81tcDUheG0FZ9tRBS0P WIYODRKQUJ7SCI5qdYS8E TllR5WqygBw RvlleVAzWG03HDe4JLT2r PklEIeltD7xfAPxV3c1Wn BnDL93oR09LHmkMZKuQiX 3LjZpbjsgbWFy N5ygGvGvqSXlLld+PHRhY mxlIHdpZHRoPScxMDAlJy LvmOpjHU7iTt6zSUFrUTQ vbGxhcHNlOiBj d1liEAXtOEwpID4btDilG 0OhbJE3AETav2s6Cv67wT I+LYWtGIK1vMzjKJclr23 2PdKhp9lpXOI3 yDGwJVxbZBB5L36sp3N4H LUxUAOhZKE2hHV8zL9weC mtggglF5DbdOGpXeP1RFP 6lDFulN9ecEdx qnmtbY9uZte+S45FPO3ZC GYRCG1ECpe1J2VuRwqfwC I+PE44IVMtTS41pCPcgTI sq6aejUm1ScMf TLKsKII9aArrCMagl3KsX YExB49imVJqn8Y7KOLgaQ vujNNwAkZecRS3mF2rEXw pbtndg3axfqxc Yonvf9kssq56bZ68I57rK MfxTVSyPJT7JUUjYBZzkP tcbi0skM8tWt2+SFzfw9e zb1ktcPg9ZtPo NCJvovTrsXxnQEO0c8SbP e92E4PujByue7DbWvm1me 40mMXop5U4vCB8XChqJQH sbP5iCMahQnU2 EOPwAkJavY17hDRnMPsyE h5xcXibmCxnZY3vPTGewa cyAAPiaO6xPNQmmKAeuUh fKN0eFMFtgllf a115KqJaFUI9AYBvmDDfI 1WtmW0sCsAgKXKvBFZxJ2 XglRRyAAgmC413OYcaXmW 2TBMflfTzB0Oa NPAgrNouGxC9n5A4Du7Hj 0NlcwboEEZ9CZayZSP3Zb Q0EyQiVpF1L9SxYqz1KQY kfVolJC3uL6Eh WQGrogtoxmwtsOA7RRPgS FEbpJ56qXTsOUgvBs2us5 I1a214IBFzNOQoyN88Ef2 udDogMTBwdCBU lS2uuczty4tjsaefAyUrX EHcYVl2FOu4DNKijWbkSk McSTP0ApU4UGN9vATyfH1 juWkrwnyerV5l Oyc+P81zqV6wPYM9BOT0w pssJZUyakUlNM90HT76T3 RyPjwvdGFibGU+PGRpdiB tlCsnWO0oRcUs b8mwv9QzNVnnW3PiJZNrO GktMbp3PSUdTIA6tAQ2kX 6fNAYgINjty9T9oCO3X5R thzElyv0yo4ju ZILkIZvaF29obNKpj8M9I DVoeNK5WVWdrGwaUtXxoQ 93Oyc+VWCzmXmnl9SpDad fk9fko2bkeFd3 LuAsUBVcztAexWcaZCR9r 6LjJo72I43yJXuxPTEhVQ KzWKZfIHGtwYbzoo6ejU7 wIi8+PGNvbCB3 hTQ4hX9iJITcQwG6ZDmpY 791NlJxlNFxHlmxq1tkl1 xxcOh1LxAcUTFnipHpaWg pAPQ3k3GpWe48 E78qFFjzRYPwDJGtNTXxU KAygJwpxv7ogQ4rHo2+PC 0vw9pskn66mL84pLQ+PHR oFFH4tQyfBUgo GTZomJ6iHSnaUvS4IGKfY rJebR22jXQwQKetDe2swP pzdMjtFF0rKCXjjysje37 1RbGqb3yjGMYo wPMdPAlgZBI4I44yx4R6A GZzHAMrICD1jUE6zP2mgK lnbjogbGVmdDsgdmVydGl eGPmoAGtrB782 IHRvcDsnPlBhdGllbnQgT hXiNNn4B9MlRzq1CFVxaR xoGH0tsYHcJKjkNq4koHo gnWqzHM1pIZFc etfjz766HzMni9noSCLla FDqCPtmKBW8J32le0Z7ON LiJJVuKSI1eDC6bY6elDp nbjogbGVmdDsg rxGqtVujTAvkZBqqN854Q HRvcDsnPkJpcnRoIERhdG S3LY95AA27zMJou8E7wSQ 3K4FgIBCrpvzr wqmyxDV3PTUlYDHpwF59W h0ziYtgUn2kDIIcKMK9JE FgqVGcZ8AdhO8mNbLkJLY pSBZcJ8WhqJBi REodT296MJmjNjF4BUKxv kXeD9VqLWKcjXssIvP2i6 F1Cd9XO5R1SQ02MK43xKX lz3X6uFW7H5Zv HXYuwfsowvnzeGH3GKPgJ EXjxS63Hg0zoJogYg5lJZ FbLSQ6HNMqeRLfE6CqmS1 yOiAjMDAwMDAw G5JvbTCjDUivZ241TDwzX sJ6TIKycmJaQ3HoJPKqnC xqTnH5w9G2Hq7KBPw0IM4 9KY43pLIgz1L4 hXY3P9IlGJXgmebzxpxhh VW8QZAgAWHytM45Ok6yuJ myCi0pNYImJEI5JLFgaQC xC4HmtS9nYoPj HGUfWRGdD4GfcZGyOHwkU 756ZUnmVwY8IPJfdlDgT2 IyYGIylVqqLzT4s8O7Cl0 PCSJjGT47QYL1 eVW2OA41NW53F4VsQfumk GFibGU+PHRhYmxlIHdpZH RoPScxMDAlJyBzdHlsZT0 qTj6fVNCkORVx kJvxiBApOoWgc1iaZIEyM TgsWJ5yzCzkE6TtdHV0ML Dbv7r0Fq59I96zE3EmkEF +UISoiZE0lMR2 cA6cIpYqSjU4PDkiM067Z zHjtCLsEccxh1rxu1cdhT e5JsV5UYQcitFsxIpsMGH 5n1DqWa39Y41l IHdpZHRoPSIxNSUiIHZhb Ilydf4bwD9tMh5+PGNvbC L3bYG8qX9xKpOnLcX0SVl fV333JjUwxMMl Lmmzb7suf0sevHw4VoEtP QGevpEykVjvQCX8j2LnQl 72H0LooCpuc8PpDrd3vb5 8sMVed1J7dZX1 F6XkKLLhsgfkbXHvrTbzE D1bBSDyjtkrDJNpqQ4vRL PzF5e7ClXlKdL2HAwsP3L cjgJ9KVQupDBe TWjxRDR7M20ma3H9AFEwE NErRWH1mAR9kR4dkGrwds ogbGVmdDsgdmVydGljYWw xIGfxN148PDVx qTibSEIugK7fXEAncOIke GnrNP2bAAYkrvukDeMGFG 9AOFHtQSiUWJRNELU4U1S dSlb5IABmkWog IX3cqVHbVCjiFl8hoBbpc DqdZP6bUBQnlidrYFTsoM 3nOMIouHBpvKhiSC4sROS huemyt084EiQh OIP0UVGfoVAsM7VtrF5cA vAsKLPgHZXxR8KplGGaQF upC282ODavSxT5IJVwtqT uN9NgETZtvTyz AnZ2a9N2Sx8rSR1eMO1dE LUaMT35SU80hGEdq9O2cQ B1S7WfHLUwjdtxanvshOL 4GYQtWUXrlC41 cINpJQhmMs1ob9E5g151R IOhJARqyY74Df8ogLtmII MkdZQHlW8laortb4natux gIzAwMDAwMDt0 CBy3EOAfxWnaOiWyGUK5Y aW7EUC0kJGvvH3mfNzhjv yfmI3mOxf+NTkgWWVhcnM 0F2ZhKyy0ZTFn kQbdJW3wbQJbNCxqEh4sr VaxxJedEB8hSSYvhqlmJQ UkaE6oBTPysXJypXpgWK7 yAIYwnaowd010 ObIyQYI8HCElkPNcT1Epr Z2iBwBuBLSlNFGhZ7CkaK JnRZnbO697MVxgHyQ4KQY thcGrK9GdLJNl mFtlDhQ2q5B2Pk4CNX1oy JV9J0VwTxj2UCIewSooKI 7yyXFvFFluOm0wmKmknUw rZW7zTZXcgwnu LWMyqZ6vDMMhiGVrzGmnK H1yOZBtarxot771ApRjWO E7SYNlzCIlA5BvgT4zQwV fBZGfCHTlX7Qx dRCfBOhkC342NXfaOlP7L OQethSwD7UfFQGycNsiWd M8v8G3Zj1PgQDnIWYgZL2 7DC46RQ23K8Zu PjwvdGFibGU+PHRhYmxlI HdpZHRoPScxMDAlJyBzdH xwBK3nBg6jIZLeJVYqhBm nwYFhUpDrx9rw PEPnRXciSJ6soDdyT0Cgh DX6KGKvr1n7Xs76W15qD6 JvdXA+JKKrdFN0jFF4uE8 nNeMbUwP0FNcl H614QxYzgALiPqgcq9ibo 3occCq8UlStAHCwvmOgoE wxIBR6a5EbEy17X88xCYl pZHRoPSIyMCUi CGPzdMpuln1agB7zRl3+P VWldQZ2nLV3yU8qMlJtVb A0YPhwJ761AbHfhQDaLqb jA87vJ0ZcdIV+ SCSiXqy3TVZaeWupHC1jn WMcRPdgSr2xIOJ1NfJcVt JxHCclI8CoRQKufxpcnau cmFB2ZMUrKDYl pA60Nm9ynEkeVq0wTNWoU YL2TNXmwVXpV8HxoN1aKo ZhQPRfYRVkF0SejPXgGCk yA455JQkkTpP3 FOFhbsSyC4ToPMIfaEtaR vF9v8M5Mn6RsWbqbHIvZJ 5kVcRpUAv9G8GcPul6FNY hzPzbTK1btZXg WSqvJk4zmRpfqIbwWF6rB ICgnxylw886NtOks2vrQH HwrKRwFLbwLAQ2U43kw8H 9WKDsWDExJVE2 hXY9sQ5gqKnabmegdJRqr DsgdmVydGljYWwtYWxpZ2 95VXAwkByvOrGLPll9W2G oEcy1ZNGzqBlc GE1fwYPlMEmqPu9wfXtfb RgqEP2sTPUhgsudp139Dk Jav0dkNLZrcGGpXXwbLRM 1Z90qa9A6DIWs HMUrVPJ1aDD2aZ4rkHikq jogbGVmdDsgdmVydGljYW jeVRdpQ154YPBguLtmTd1 NAzb3Z2VlBji8 VTAxdGudWL1ndBCwTRyhW u9crDdflMoeJE0hDREngk zmn577VyBix7csRPRfvHJ wVIqeJNS4Q40o l0I0PFUvQBSoORY1cGX8a N7zqZyqkjwlsEArmShzte HcoGpxQNuiADhoI212SUW vcDsnPlBheWVy OjwvdGQ+UX06ft50O9KoX rfvKel8KMDrCHV1vBG0lR 0xVSVtRQxja5X0sGN5A1L orgNngt7rp9bs YXBz (more content not included)... [facility] Coding Summary.on 12-23-2021 Coding Summary. CD:[id number]:[id number] G h0bWw+PGhlYWQ+CI2BRMF wK61rwWUssY4IP3zBTL3E BGEBKGQCWQ0OLE9dfJU5C HllO7XhscPj ZwzlfONnNZ78EHg2MNK1x LcrEIauqT0gjNOsD6a1Wt DvMI22wK14ZJmlOPCfZsD 3LjZpbjsgbWFy R9bvWnUquELyIrm+PHRhY mxlIHdpZHRoPScxMDAlJy YunDnpYV4fIb6eKMFvKZS vbGxhcHNlOiBj k8bpUFIpLJorVZ8iiBoqV 5RhkRZ2KOAlz1c0Jm71vQ I+WMAxKRA6lZnsCMwas65 1SkFif4gdWFG7 nZWcGFazUAG2X07hq6A1A RQuPZFfRLZ2hEW7fI2bwS igacmfH6AjxVTgHgD2ITC 0dNPjtH3mzLho rxlbnC7dGtj+I79WFP5MM ZRTOF3UYaw6O7RsCwsihA I+DG25KIJhSG80eMUjgMJ of7nynUf0YaVh WECzHCN1nKpzUYxxs1FwT HTfS72hdGTrq5I6ZPKcyX hhjQPmInGhcFK4iN5kGZh uncovh4fwlati Pdtst1crkn34dY80D72kR DjdCCPmVDW0QLFpRTXeaS euip9syT6zHs0+PWlco0b qq9cepGl2WoOj EKChqgRriBzdLWZ7q5OxD n18S8HuiVavu7HqLvd4mo 91lQPhj2B9tKH8PLhtFGD svD0rURohChX1 RTXdMaIjeM74zSJdHKjpA e1ooZfomRvjKX8pJFAvta rtNQVnsY5fNBIdsWMzrDe hTH6hHTFlmokr i674DgFeOSV5VTIsoUZcD 8BkbP0sQmZaFJHgDLInN6 OiqJWeEMmaS704STqmMbG 1IBCzmeVpU6Cw GUWqiZyvUqV0b3F3Gh7Tr 4OuzgkkAFF8HTejPBN7Xv TdVtJzRmE4G6OeJtb8GSW xtTpiVZ2aL6Kh PWMojdmqxmtjuHU0GGKvA OSfuR66lMHhMUzyXq2dr4 P9j256KHNkTWFghP44Ta1 udDogMTBwdCBU pQ0ukglaf1flxjgpBxEkC VSzBZa1CSn5TAAcaRqmFz WeJEF6MpG0TSZ4aHZlrB3 apMejfahwjE5e Oyc+U12tvL0cUQG5OSX6m ybsHNUfgfFbHL49AH32Y5 RyPjwvdGFibGU+PGRpdiB whCbgHQ8aNbMq b3hcf0TaNDrtE4BjHZVxP OttBwy0ZJRcDQD9jJO8dZ 0dQKOlIIaev3F5eJJ2V1Y zmySpca0fr5ef YKFkGOanR77hhFHfu4X0Y SFepUJ4HQXndMymDmHmbL 93Oyc+YFDhnLzhm0FkXyk lj7mex3snoKw1 NdYpMPLmsuNquPgePXD5k 8XyCs43I88tGCvyUYXmRX JuRAGcXTEoxXbniq6asG2 wIi8+PGNvbCB3 rKQ0dA1fDESbMiX3QWyyA 582TlEcvSOpJuznz9nkm7 vcxEd7NyNiXBHjueNxbPl zURZ3c1JsGp45 G83vSEpyMNAxOQLqUSUqA WSdjJmfem4uiM3tOy3+PC 7nj6wclf04vR06hBI+PHR zGSE3kYuoCSjy OFMckR3mURytEeW2BNBeP zRykI45hCEzNXaaWr1czX rsoAabSC1dMPPceagxa50 5SeDdu7bwQCWu iWUbCUhpKYA6B37im7U9U NBmUWSkXVF2tZS5pF8zdW lnbjogbGVmdDsgdmVydGl iXLltINbxB554 IHRvcDsnPlBhdGllbnQgT vRlUJm2L5UzQoo9KGQxiE kjJL9bsIIoBIhzLc9biGw ujGccZZ3wVYBl hurds325MpEcv8bvKCUee PNjJMdhWNI9T12lu3X5QI YvSVLwHEY1vSP0eP9anNx nbjogbGVmdDsg qmZufFwmJFgyJKekU545O HRvcDsnPkJpcnRoIERhdG X3RU66VB30bMBkn0A6aFL 1P4WrOBGsjfat cvzkaWM4WJNbGZWlnX84E l8roLrdZs0dBDKqKWZ0AS YlfQRfS8VbkG9fUbIxSCJ iWUJqI3RxaSOh QBaeI699ZMabOvC6IZZid pXbB6CqQRIocTojJxJ6s3 Y1Je3KQ9F3HB67KJ76eOW kq3T5qJS6H6Nw IIGpuihokhdqeJG4GJGsC OCfoH88We2igWtgIu5jRN CwEJD6OFHahCAjC0QbpE9 yOiAjMDAwMDAw Z0TkrFSpXZhiM911OBjlH nM0LNSslsKnS1PaQKAzrO lkEyH0d7W6Ms5CAId0EY0 3PR47wRAub4C2 yBS6T9YuYGTlhnutxooof OA3HFAdCXJpsD08Ak0gwE kcOv0hVMDbISJ1AKAajHI kO3TsxW2xZnMc YRHzERMbX5NruFCjUNizK 895KPhpCkO7EOVlmwDyF8 HfKPVadOntSuQ9f7C9Ax0 QYGPjZV07YZQ8 sEB1BD02DE93U5MnYchcn GFibGU+PHRhYmxlIHdpZH RoPScxMDAlJyBzdHlsZT0 xLt9qSWBzXGYr oHbuqHBeGgHtg4aaJOMjQ OojIE5foOvgM6VdiXE0KL Ebp6n9Zz25Z50bJ0ZbiGP +IHAgdJY9tPH6 pD0wQtLkXfH5USupE127V rXypVNzFwgnr7ieg6krjS m4OlD2FUIlebWetJycQRY 7x7HrQe15J00k IHdpZHRoPSIxNSUiIHZhb Topsa9lkM7rIe9+PGNvbC A0xUI4vU5gAoBzHeM3ZOf eB193KbRbkHCj Kkcag8hkf0cqlAv2VfCwM XQxiwAqdKqoNOS2e8PvLl 17M0VbdGblv4DgQlz5tv4 6dOAxd5Z6uJL0 W0ZvSIJklavanJQibEyzT U7vYWIdhgmpUMVhqX7gWJ ZoJ5t8DgSpCoG5DCyfF1H ifmV8THNzfEOl HWkiFVK4S99zm0B9SFPdG YWqZLK6sIR2qZ2pxTfwwr ogbGVmdDsgdmVydGljYWw kQZsdK593XYLl nJpwYHGduT4mWPRhpCShe TdsNM6tWJXnrmglLxBNEJ 7JQMGrLSrYDBDFSBB7L2F qGvn2RVSzpPbj GL7wfHIfHQmkAq9uyWtco WakNI7kTPNksdbfTFSjwP 8wZTCarYLttCsoCU9oLZL vxprbb929BfGh UXR0WAXaqZWgO1GrvP6lV jYhSAMqTDBdH0FbjHVnDF awU865CRyrFjH5LOFnzgM vR7ToYWQxkQou NmD9j0S0Qb0jTK5pJZ6dT ZPnBX36QW61nYJvh2H1lC I3J2DwLHFxryazvvnasXG 7TOUnQPIcrU04 rDHjQZyeTv0ar2U4a311J GOdJNAhhK98Jz3kfMypCX NxcZYRgN1dkymxr2lfjwt gIzAwMDAwMDt0 THe8VLSctSygTsQsDBO7G uT0VAW6dEQvxB6yuMgqwd wamX6qLad+NTkgWWVhcnM 1D6OaWll0VNAm sYjwMQ4ohKYeTGfaMd0gi SopeFcpUZ3uUQNfrdmyNB JgbF2mJFTtuRBrpSfoHE6 kCWHwucbby508 QvSrSBT3KPEphPHhQ3Djl U2dNvWtWLStGRUgX2XjyH CgCPxfR614ZGpdQwT8LCQ vyzFjE1RcLQDc lPdcSmO8q5Q1Dz9UTB2yg QR1U5XzXay8FRKlyIymZW 7tjXRoTYzoTh5agAindYh dNR5bRVColtht MUEcgC8mWJPlwDUlgXwlE V2xEBKwodgpo465HyKfEI M2EPRjpANfP3QazR5mKeB sPDMjZNTgX0Nl qDZjCHbtL713SOynCqR0M DTshlTdX5JwSKEkyJwqZk T0n6J2Ak1SeEGnCPBxGD7 1VP96FZ09B5Dt PjwvdGFibGU+PHRhYmxlI HdpZHRoPScxMDAlJyBzdH ljGF5gMx3mAFMcLIFqqHx ddZNcMiHhs4vh MDSgVSgvGT5arCquE6Kqg NW8CKFek6o3Ls55C04qS9 JvdXA+GCHosDF1vWA3eC8 bMzEiMsK4UVvq I977XmDnlSDjAaqqn4jzg 8zrpLr4KqHxDWGhkjWwaO gpHQK2z4NcMo54P66rUDj pZHRoPSIyMCUi INNqpQdocx3ihI4sBm4+P IUwwPU6nZK9rZ2gCvToDl F5GRsxF838JyVdfUUyNzp cD98yH9ZuzLM+ QQRdWmz6CXMexLseYT1dk NIeOPudOb5xYVJ3FgNaUn UoBIhvH4YmQWJteqqbfrq quUT3EGYnFBTw eI37Mh2gyMjgQf3nEXDpM GJ9EJBvzTOeS5DnqK6xXd XpWQJxPCOdM6MyfQMaHSb rE142DTcdJaS0 VRDtedXaF5TlYUSduKesA vC2s0Y2Fi7CtZuneXIyWW 6dPqQaPEi2B9OvUgd9ZPC ehOimGU7mzXVr DWleQz4zyDuteBjuPB9rO CGikbzqk357JpIgw8nxMR BecIRcALltNPR6W49vy4E 9CKBqXIEhCPJ9 qRS8iI2uwToxpevopQBje DsgdmVydGljYWwtYWxpZ2 53YPBciRuzUjGFUcd3L9X bQfr3ZBMkfQtj SD2qvEQcQJumQv9qrKfsj LqwVJ1qXAUkztnub169Xj Dtx2vhVWTyrCMbPKwlCNO 8R21ho5X8ZXKz BQVpHVF0aSR7xR7zmRoxg jogbGVmdDsgdmVydGljYW ubLYnnA628USCfsYjbSw4 HHgx2V4EsEzf2 GHIhtQdvUX6qsIMzWWtzF t4feHjsyNmaMC0vLBSftv qpj281NaPjt7gpQWGsxWI rMLdrTBB7S10m p1B4RVOlFOHwCFA4vVN1h G6ujLknbauiuIZfqQebef RoxAoaAAxhUVipK039MHG vcDsnPlBheWVy OjwvdGQ+MI58xn05I1GbK vbkLeq3DBFoCGV4ySI5nS 6bHLGyYFudm0F1yLR3K3Q vdbJzay7mv5be YXBz (more content not included)... [facility] XR Spine Cervical 2 or 3 [...] M.D. Transcribed by: CAITY Technologist: MARY BETH [facility] Consent for Treatmenton 12-04 Consent for Treatment [id number]# 1.00CD:[address] [facility] Consent for Treatment [id number]#1 .00CD:[address] 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 Hypertension / SNOMED CT 3094679652 / Confirmed Anxiety / SNOMED CT 98163870 / Confirmed Lumbar disc disease / SNOMED CT 0482628513 / Confirmed Lumbar radiculopathy / SNOMED CT 464648472 / Confirmed Chronic gastritis / SNOMED CT 21324996 / Confirmed Migraines / SNOMED CT 06868062 / Confirmed Insomnia / SNOMED CT 781806888 / Confirmed Colon polyp / SNOMED CT 717762929 / Confirmed Chronic leg pain / SNOMED CT 842731602 / Confirmed Laxative abuse / SNOMED CT 123462779 / Confirmed Chronic cluster headache / SNOMED CT 182605731 / Confirmed Vitamin D deficiency / SNOMED CT 91299248 / Confirmed Hyperlipemia / SNOMED CT 23739459 / Confirmed Osteoporosis / SNOMED CT 051221428 / Confirmed 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 [facility] Comment on above: Result Comment: Elec tronically Signed By: Sophy Rush PA-C\.br\Date and Time Signed: 12/20/21 12:48 EDT\.br\Electronically Co-Signed By: Derick Meza MD\.br\Date and Time Co-Signed: 12/27/21 07:59 EDT Office/Clinic Note-Physician on 12-20-2021 Office/Clinic Note-Physician [id number]# 1.00CD:[address] [facility] Orders Officeon 12-20-2021 Orders Office [id number]# 1.00CD:[address] [facility] Physician Orderon 12-20-2021 Physician Order [id number]#1 .00CD:[address] [facility] Coding Summary.on 11-09-2021 Coding Summary. CD:[id number]:[id number] G h0bWw+PGhlYWQ+JD7CWOX oA63sfDBxdM8VC2yTFK5E HUSISKZEIQ3PUD0egGH6B KbbZ0GdvaRd KxsdeYCfMD93YDu3HCY0o ZrpYSbcfY0ssQFvP6h3Cy WaLF33wM16KVlsRCMiZaC 3LjZpbjsgbWFy H2huOuZznZDjQjo+PHRhY mxlIHdpZHRoPScxMDAlJy AzuXrzRK1cGd9tQAUnJVU vbGxhcHNlOiBj z2obOXWwNBqpUN7dbDabB 5KjqKM3YGGvf9w6Md58yI I+XWEmRKO0cCssPSkkn25 1XePqm1xsRFH8 eJGaNGqlDTP9E95kc8Z0Q JQbCRRyOYO2uLB2wU4bhB ftwkswS4RpsEIkCtA1VSA 9yYZmkS8kaZri rurwxJ9kMjq+S55XSV7PE RULLF7UHse1G7IbIrnyoN I+BY91XZAbFB91wNJjiBT cq0klsYf6ExVg MNIiIRC9yAclEFzpv4PdM IUsH47bgRDhq2I6TGKjoM oixWFqFcLdhBG3nH9yKJe yqduyp5jxynfx Shhsq6jwcw10vH90Y72tE OsoUIRxJND5VAFiEILorU klot8aeF8vCy6+IPawr7k wq5gmnVd6QjGw HFPibfRynUuvDMC9i4EtB h07W0KbdSkpl6YfQvt8ac 03fCPpl0C3eQI0GOrqMKI flI0nYQpnFxC0 AEHbLdOjtM32lDVlESurE w4guVjudXylZO3qHHJnup niJYKemQ8bCMXuiKNjgBt rJI7dHCBlpaxn p231KqIwIFC5VSDccJXiY 3FkcY8gSnZlRVJzHHGgI9 NgbETqEIwcG780LPnsCwF 8QTBbjwRzM0Ok JPIhfFomQeT7a3P6Bt7Vq 9QwbeoqKKI3TKjvLSL7Fe A3ZtQfPvL7P5QeXvg1APV dbEaaWE2gU9Mk BTSfqnzrtytokIN9ELCjJ MRjlB20qJPdIRxaXh6il2 N7s673WMZlZQZkaC75Nk8 udDogMTBwdCBU kL5ulimmo7ruklwkRiXfN YKqNLp4SYe4SMPrcXzfPx NeOJE5FaR4MRQ2hNIynR6 xhKrihkqpvT9i Oyc+Q97cxG7tFHA3ILQ6j cvwIMTdauAuEM20AM84P7 RyPjwvdGFibGU+PGRpdiB tlKibHU9pWeDj j4gge1CjSFozM7AiGJMqX VqaCuf4INDuUWW0iRP3hD 6yMOFiAGthg9J9kQX6T4M ayuQsdd8rs6lc PRJrWFaqP23vdBWdq1D1E EOvqBF7RILwdUmpXaMyoE 93Oyc+DGHrrZeas8YhRxs ro8fkw6galVj9 ExMuLPReubWaxBegIVU0w 6NoVa25B03kLGssRRQuJD ZgVCInDEHmrTacji7uoX4 wIi8+PGNvbCB3 zBV9tL9aPHDhToF8RRcvI 126ZiWcmCJgIgfhw9wpf8 dlvCe0TnNkUJCyptRlfGz qHCM1y4JuQz08 T40uXOrsIJNzSLSjJXXqK AVgjOwklu6wyJ4yVh1+PC 7wf4dvsw59nS09cUS+PHR eOJI3wQnaDTxi ZABloN4hVCfcVrI1SVSqY iSkfT32tIKxEQadIq3wwI sjeLdqFZ1nUJObaizth12 2DoUlf3zdEIYu sBZkDZtlCHA5K92id8B9S DNcZLOzLBU6fKW0wA5jcV lnbjogbGVmdDsgdmVydGl eYXwwQLjdO798 IHRvcDsnPlBhdGllbnQgT kTzHHr0U4TjCiu3IUWsvT yuEJ9xwJEdOZhfYo4ozDy daTvaKM8mQBJs neehz672YlToz2ylOEOia LJcSXbzMNT5C39xm0W6IT YeHPBuWQS8zNO5sU6vrLd nbjogbGVmdDsg pzVegLkbAYxyCXgdC096I HRvcDsnPkJpcnRoIERhdG Y8WN19ME18uIEnl9S1gIK 0E9TqFUMnivju jrzduDB8XRFaIHZefR56W z2zhJfzUr5jUSGjLHS4ZZ UqvRXtA1LfnZ3wEeYlROF wSRRmS3XyqKQg CJxmE540ONmqYzC0FRRgr vTpC3EzDKZdhIqrQeP0i1 A3Li8GC3K0HC27KT46yAZ if7P4cMG0Z0Bf DTWtphkougjugVL4PKZjQ EJdgN14Uj0fuMriVh3dBZ RlBZF7QGZfjUEtP7TthI6 yOiAjMDAwMDAw X8OooCBjYOgwB256MZtoA zR8TSWyvkCtR8PbSUAcbR myNkU2t9O0Bh7TJVv5WQ4 9QP12wHZrj6C8 lYU2R6QeSWVlzjtdpgrip CR3ADCyOKCknW32Cx3wvY xfQd5yTNRhZNW4IIWpuZY uQ1RfxZ6zNxJw KCXcWIYxF8FmiOVtRRwpP 273DSmmGfS5AMSnicJyA2 FuZQPonBnxZqX7r8V5Tz6 FIEZeGL63UAC2 hBE5HY12FF69D2RcQjkzz GFibGU+PHRhYmxlIHdpZH RoPScxMDAlJyBzdHlsZT0 mVi9jDZMrAGZx sMbrtTShSlJdx3fsHULfS NxyMJ4smDlyF8IipDP4US Rtk3m5Uu31N67mG4OnzXL +YIVtxVM2yAX1 yK1gRzGqHcS6HKksC007W yAfiRUgKdxdx7mdh1iqtX z7DkC4NMPjcjRpaAqfNRS 5e7ClCc90X42q IHdpZHRoPSIxNSUiIHZhb Bhfca3ajZ6jKo5+PGNvbC H9eZO1mH9jYsSdAgM2OGv hN340RaLehRSi Yzhui8boh5cuiJm1BuXeZ INzsoJayNprWXE8n8KcSw 90R3KmhJkcw6AxGdf4yl5 2sDYye8B3qUW7 C6WjOYAlowbjlUEsjZgiX T8mAECdybnfBZNgiG8qPV LfE6f2YpPaYrD2QVayJ4F knnQ7VKPsaGYp UQjwZMS8Y63yh2M5BBHrG PRrGIL6nVS0jK3eeDigbb ogbGVmdDsgdmVydGljYWw yQVkgL287ZFNy gVnaSIIzjF5eDONntQFmc QxrRT0aWWChdfskLjNHDX 1RXHWyMWgDHBLIVNB1X1U aRhe4CDDbuCyf IB8zcQYwVUrtJi6eaPdbh OljCX4uAWWhkfnbUCAsgF 7zLHTpjIBqzUvtWM2nCXL uvfdjm583IlAs TCQ7VIDxmNLxS7TnlP9xD sKeITVnNSGkT7IanHVoRO bkW923HXltHvK1ZAFvunS bR8UpRGRddKyh XkS1m8E3Yd8pFE3cVI1wQ SHjXU89LA35vGCyd8C8uK D2X1KdTNGyrafgglrupEE 5WMKbZLKpaH48 jNVkIUotHf7ll6E6a626J WZiNMFkaG76Ve9jtTtvLO NqlSNJlC0gmyofb6seynf gIzAwMDAwMDt0 PTw8PHFlbTzmFkVcXKN8F eX4WRQ6wUPreT6faXinjk qmcK2lGru+NTkgWWVhcnM 2B7BaXhk2LIYv kXkyDA4yhZSfPFdwKu0or SsitSczNO5iALQqzistRR QkhQ1aYJBtmIOdzIaqEY1 fINEmnipxa018 UlWwFKW6QGGvrNJmD9Dvz K7gGgJeLLLiSCJpR8VaqH SqRAgsM218UQjoTpL3YHG yubXbY7DvWYVm dHxkSlA9r2V9Rl4GWD5qk EH6P3PkOwa0JZNanUfhQG 8ojPDeLMfyLw3wnSgzrBp zXF2gIEGdfxrl XMKwlY6hZNTzaJDkjKhuN J6tUYQsdrxvd066PmNaKW B8ZPSkbEUmF3PnhW9jNgL rBTBuSJYmO6Mq yKQoAIntO340ZLvuDbM8N YMxttMaH8WrONRljIxbPd A5u4P1Ou7SxKRmAALgVY5 2TO20DC94H3Ok PjwvdGFibGU+PHRhYmxlI HdpZHRoPScxMDAlJyBzdH ojVI6eOu8pNEEpXWMtfRw jfPHpUsKkg1iu HVFyGMpwAJ9pgDroO1Edq AM9EKNfl4x7Tm39F13rH4 JvdXA+ZVWxqGW4fOQ7oE6 xPgEkNjB6NQrx J348GrGenIMlOefwe8ijz 1nxqUa3EpEzRRSrstIyuZ ceKKC8g1LnPn08A27xLVi pZHRoPSIyMCUi LWQscVzgnu2wdE8tVs2+P OXjtUQ8dTC8bA1tCfTdTt K7WObyX582WvYtbFUzZtv gZ61wG6KxrEM+ JDVcXuy0SISwtTghFE5qt GRgWQvnIu4zZWS0EoLhGk DiXByjO9BaEFSiapubjgc ejQQ5QIYzKFHo uR46An8qsUyfFj8iOKSqY LX5LXEeuTMeE1LwiE2uDg AgPFSmDAYjD9LxzPYhOKu kS832ZCwnHtO2 TTCihpXkY2XjSIFrkMguG tZ3c0L1Jf0AbNyciQTwZD 3vOsOtQIt0K5YdHlg8TCA cdWbhDL1nzIGj QKoqHy9xaFfyaExaUI7eT UQhiwjxb473VhQdt1qhON WliQKaIExdZDF6Q36zo6Y 9YWRwBCWbCVB2 aKP3kP4ywQufzekqbGFbu DsgdmVydGljYWwtYWxpZ2 30AIDqgDjsBzKXBon9D8W hQjb5POFdcWxm RQ5rzUTzOXqwCr9sgJudb RsdDM8nYUBqnzjdz636Ml Hwi2kbHIJrnNQnNFdvPMK 3P84fk4Y0ZNLo DKTgZRX4gIR0cL6xcCfwe jogbGVmdDsgdmVydGljYW ohXVcrY390FPCtsKmtMb6 RJxf3G0ZkGii2 WHIhlXgmSO1arRKcHZurS c3cqIjgkMdiET4wJVMeae gki025WmQtn8xlTGHvvQY dUWmrJOX3H46z i1A3ZJPtYCDxTJY4yKZ2g J0zlIhltqrurDJjzXpiyo VxpGzcPRxfCLppG738PZC vcDsnPlBheWVy OjwvdGQ+NJ42ul77E0MiO lxsWsn6EWGnZDK6kBO1zF 0jRPAuLLtqf5K3ySH6U2W wsgFlsu9mh3zi YXBz (more content not included)... [facility] Coding Summary. CD:[id number] G h0bWw+PGhlYWQ+TX4ZBAJ pK72ziGAmgC9JA9nHYM7Q HWWRWFBEBV5VZZ6pcLI2E PdgB9OvikWn CofztUQnBW79NHl1IMB2h BkmZDlusA2bvNPlE1w2Kl WwTM28vM43EJboKRYzPqQ 3LjZpbjsgbWFy H4ahGeNusYPeJoz+PHRhY mxlIHdpZHRoPScxMDAlJy VvoRyyCP8oSa5oFMLmFLT vbGxhcHNlOiBj i9cdTAMsSVdmEL0xzFeoV 9JhaAG8VEEel7n5Od51xK I+TQVoRFA3nDxbABtng91 8LwDbw5gmGSS8 tQMdWIinPYD7X43ml4K2I TLkZKOgLXI1gXJ7rT4meB mpizxiO7BjuBDrCjQ7GQD 0sMQgwO2jhQlw hdzaxQ1vPuq+W12IHC0OH VJPPH1PCyf8K9NpNjysbV I+FJ88KIEyMX46vKFquCC zv7tdkDt2YwRk KGDaOME7nSjvDBjlu9JzT YEyJ04wmCNac6Y6FTCkhG yulDWeEhQqiAS1hR6yPDi sasosp9xwufkg Zgnto6ssfb76hV43C05zX IpxZEAtLHU0RBFqKDRpnW kpey7edU3zIc4+ZYbhx6o eq8pdeKa0QoFi TWYxcoBbhByvYRV5v3JeD f31P1EpwLhjj4SlRty8vz 58nIJao1K8mVT2DMjxOVK xxW1nSVxqOgV7 JHVxDlYfxU59wNPzDLyeO b5eaUiilDjbZW8pXOQiav dkJYFtvB2gYTXxqAAtvLt uAG1cQVVrtgup r637KcFsQIC0UVNweUWvV 5TbaD1gLlMpRRJiDMJhF7 IgxIFgCJjsH252ZEegVzL 8FLLqzsEfS9Vf GLGyhGhmQrJ5d5A0Re0Cr 8DeygxmJPS5HTnjWDX1Dl X7KcOwJnJ7Z6MqWya7CEW mwEdfSZ3iC7Sy VENeuypermeygDS3WROgO VOziI90mBWvEYovHf1ac7 W1u713AATrELDvwQ31Hs1 udDogMTBwdCBU eU8tfawdu7fugbskHeTkW IGiSPn2DRh1HPLsqZvkOg LxYRA9HlR4YBD1dYXsyR9 poFnndxenwY3d Oyc+C66wrC9gXFM2CCF6i rpnTVEbwjYeCX68WX79A9 RyPjwvdGFibGU+PGRpdiB ggQpxWO2hKvBq l2wug2PqBBwrY1EaHYXnQ WtfTea5SJYzAIR7bKB4jW 1qEYLeMFuxn5I3bYS0K4T vtuYwef6yd8xc PBPgQOoqE51qqQRim5B5Z WDhgEJ0CGRsqKurIbJrgZ 93Oyc+IAOkuIaxq4TxJup ep1ohu3sjqCj7 VtChHWWksbOzwAweFQJ6z 3TzGe17U52vPSiyNSRyGF VbJKDgKITvpBuiud8osF4 wIi8+PGNvbCB3 hYP1mN3iNGTkJvG9JYviJ 179CzXuxESiSksgo5ets5 cspMt7HqYsSJMsheFwsWd zSQO2q3TaWv62 W52fYSqqKHBjNHCkZQUwS YJjhVrwjo0naR2tLa5+PC 1yz8wggl46dI62uKJ+PHR oUZP6iOtaPNzc YBTmtI4xNUtlHmM1NRLzH jRpmV70pGUnQHseYt8ltX jabRuxMC1kXRYlyvsnn07 8WjCxk5pjIENh bLLjKTstGHL2E62rp8T5K PGlMICiLTF8zOP6oR4xcT lnbjogbGVmdDsgdmVydGl rVRpdFNmxR011 IHRvcDsnPlBhdGllbnQgT bBkVRj5H2XpJde8XMFouT blRM8xyUJgSNcpVw3rpMq amWndZT0uLANi afyez525UyJfv2tlKDHtp BZkOVelWCD8H95vz7O5HX SkABRlVYK9hLP0iS4irMy nbjogbGVmdDsg zfGydXuhDXvwWCteL177T HRvcDsnPkJpcnRoIERhdG S1FR67PY97zARec3G4oIS 5X7IeJNRexsbn lvyenUG9GVKrXLKmoI97K g6ajFzwAu5cRXCiDJS2AA FujGGqS1SsjV9uOkWlRHC dEPZwK0IgeHCd HRihS284IKpyBmT9CYIjn hDoE3GsWKCsrLedGaP6c7 L4Ko3GJ4L8EC88GX46uDU ac4H4fQE9X4Bu PQWuszjgisccyNL7MBWnZ FFohS35Ji1sfNrmEc3bMM PiYNG5CTGsvZWqF5CmmO3 yOiAjMDAwMDAw Q8DbcSLpBAjqP896ANwwQ iO3KQKrmrZeP0GoAAKqiZ zpUzT1w2B1Vh9VRBg4LK4 5GL52kINld8T4 hUH3S3LmYDOtukpguubny EE2MULdBYJqvG77Xr1ioL jyTp0bOJHgUFM9DQJdpSR aM5ZxvU5vTiFv GMHvHWJfJ7PmyFPoOKifT 846GHzzWmW5CTBpbqGiN7 IuMPIjxNbpHjQ9n3G1Fm4 VSHMsFY59HQR9 uVO2EU37CK57U6YgGuphv GFibGU+PHRhYmxlIHdpZH RoPScxMDAlJyBzdHlsZT0 lEe1gLPCqODAg gZhfpZRwPfPel7auCKRoS NaoLB4uoWpaG7WlaLG2SS Xkh0o2Ou34B88nV8KsrPM +SSBzmID7xDF5 sG9vOvGqGjU7IDijT403S rPmoIRtXuynp1gga6duuQ d1VrF8XZZkkjDviKhxTVK 8p4GzGu32Y79b IHdpZHRoPSIxNSUiIHZhb Qenzl5hlV8yTg2+PGNvbC Z8gUR5dX8tLrBjGbT8UEi aU144WlBmyNPj Uauku1nmz7wgkLj0QvIrJ ILuyfLcxExyXCS8p3EyCu 40W8CyyVdku8OhSkm0fi2 8eORkg6U8jMO0 Y1UvYQFtkucpgMOkdPvkE J2sNOHkuwglDOKulE7eBN NqE7u9VqJvExF6DTjlN1P tdaJ5GFKlmAOd ZKucFWR2N43fd9U5EOYqP QJmULN4fFE0nM9kxVywst ogbGVmdDsgdmVydGljYWw nOJqtB945LYCc nEzrNNBlxP4gRVFntAXjt IkxIA1kOLGoaqrvZpTPXX 8XGDRiOFpEDTZMLKM9S6N nVyu3GWKnaHaf KX4duGAcXQkyTt9zdWjkh BknUD5jGDOcuwnxOACqhC 9jVJJynCOneNvfQL4qSSY rcmruj746JmKe CHM8AEZkrLKkY2YcaP5pY iUmFKDwRTImU9PiwWItYM vsT292YGfyQqY6MGPwzlH xF1GjQHHfgFwo PwM0i8F0Bq5fCP3xWF5bP AJjRC37BN00jZQdw9Y2wK K5L6XhKUNadfdypwmlpBU 8ZNTuLWMitQ27 vZLfWLhxLj2sn6E4q193P KBvBNSesY69Ee1fnRuwAB XzpZBCfI4ailynx0njzxp gIzAwMDAwMDt0 PWh5YIMxwMrbTrPgYTU7M rC5USX5bERruT6khAtkpu taqH7yLfq+NTkgWWVhcnM 9G8RbVlu5YXTd kVmhUD5zaOWvJXdfFj0di CypuQyoTT8wXJMlaoguSJ BujA3gXYFokQGfyLkcQZ0 jDTZuwjxmc812 FaWxBWK0NKBfuUVnW8Wpj N9kOkSwQFRrBKVfL6AnpM DgOCesY920OPxyRtK3DJJ eamJcC7OfUPQj mHswOyE9p8J5Sr7VSM0if PV3Z9MjSsd9PZYfaPjuNH 1tcYAuKLaxVh1dbDmyuQt vIQ1xHKTxmvse VLUlfN5tCJQsdIQceCffW V4rXSXcvnony765VxHgJB H4GVJxnUDtE0NhtH9dPqG uCUEeDRQeU8Mj zKNiFQoeS596UIevBeJ8D ZAhepBrO9JkNUKvhZwgUg L9o4C1Xg6LiOPdEHIfOL4 3NO22OF33I1Ri PjwvdGFibGU+PHRhYmxlI HdpZHRoPScxMDAlJyBzdH gkEA8eYr9xOODsCKMtaTa rsBCzQbOpp6xx YNQhUXzfQI8siZcyX7Hfw KD6ZYPmk9a9Wn51K85sN4 JvdXA+NZTklVV0nLT8wZ5 pFsJsUrY2CPju R380LiCoxJLnRjans9elv 9qljFo3XtMeRNYtbcQhjS opYFF6d2PwYu82Y46uDGo pZHRoPSIyMCUi HPShzSbfra7tuG2pFd7+P XMznUQ6oIE0eT4jMfLaIt B3ZIccE896HnRpuGSuEry hV58aW9GoqWP+ GCFoNqv2ECLjtEddLT3ku JHmCCmuOj5nOFB9MbErEb IeWLamQ1BsIUBxejtkgib ulDE8RRSfPDWi vM72Xp1jrEfjGf8rWSDzR WQ9NSPzbDJqO9EusF0sLb CaYOMqEDNeG1MsrHTmXXa kW646JNwuEmM5 PMKzjfPbQ4XmUJSirHseU cW3x7L8Fn7RvBkmrFEmQL 7nLiCzBFa5N1FbLpm9JVU vwCxgKN9goQTm TLnqUp0omRyrjXeqUE7uO HUqneuzq441PaBkk8wnMB VjqDMhQCcnJTG3Y19vs8A 6GWIbYIRkARP1 xYH0qV8bfOftdyucaOWar DsgdmVydGljYWwtYWxpZ2 64TEZsdEfwYiEEGpb3F3J wAgp0HPHheAts NT6jyOVkAPucSl4piRdjk HfwTR8aFRJtekruh465Ns Pxy5dlEADneVNaPImlNLY 8J44wj1O3ITAs JVSuTJL0jWH7bF7ajUblh jogbGVmdDsgdmVydGljYW otIUavF550TCAsmWrnWz9 RVxh0B3FrUql0 CGGpzGceBQ4rjPUiQOmtX r9moWwxyLjlQE5mHLLzqw iak348GwGbd7hpSEDdnIC uENfxUUK6C83i m1I4NBSaRMLlLGU7fZL8z Z5kjDyhgokxzRWkzRsxeg NvsWsgAKqiRPisZ457TDG vcDsnPlBheWVy OjwvdGQ+JC74bn73I4TkN jczTfv3DKBhRSH4iOO2eN 2gRBXnFCjlp4C6mTQ1M1E ymqUtiy5tc2po YXBz (more content not included)... [facility] Coding Summary.on 11-01-2021 Coding Summary. CD:[id number]:[id number] G h0bWw+PGhlYWQ+JQ9BNQA bS81ruQUiaY9CG4cWOR3B UJUYOWPLRE5HBC7xqKS4K KaqU4FufnCv ZjwnwLYyBD97CIn9APH1l JwkMYzubS5xoFLwU0k2Cb XcNT75nC95XApzOJUvQhV 3LjZpbjsgbWFy D0lzRqBhrWInFly+PHRhY mxlIHdpZHRoPScxMDAlJy SatRzeNV7uSa7nFLBkJQR vbGxhcHNlOiBj u2wfJXDyKQnzTM0ijYjfT 7AlbTE3JOSvg4h1Lc08yJ I+TWWfLDB8dBzlHRimf96 5XlDbp9jwVFR5 iFLcQCxiKLU4L75xh5P0K NUcQYPgIQL9qBV3bO0caW jpmsabR8MqnNYjTsK3DTB 3pWLzvU2gqIya rwpwfV0oHsn+T24AJF0AS ETSJT8RVjw3K5VlOuhghR I+NR71NGKrLF38oUTgwCA oe3qbiWj0ZsOn QLGaIYA5sGmjQXupx2JzB DCgZ82nfEOrc6J5MEQtnS qknFBnSoCxxSW0pE2gQZd onnpfo7pkxjxz Ldvrw6gcbh07oH71X15lE QgwUTIgLJN4WRUoFPLleY lnox3akT1uYj7+XGyef6c pz4kaxOz7RgLn FVQecyMsjGbdLCF5b6FwX r72W1JxxXfts7KnXyi7kb 26wOTmd9V0lJQ1FHmyWNY jwJ3jHAunAeJ7 GXOoHtXsbZ27oSBbGKapE z3sxNtbxHpsYZ7lSGTxat crVNYuqW7rOLUecBXzhVs gUS4mNNHqicjf z781WsPhSKJ3AHTlfFMlG 7SaiW9eFfGbTZRcVFCwO9 CmdSPnOJymF574OJvaNhM 9AOUletDxO7Yh FFMvaOycZbN6a7G5Pn6Ah 7IyiediPOX1YOvoPHZbGo Z0FtWbCmJ9G4CiSdv9QZF osIgbYE4lG3Io ZNDbbgctnbpyrWM4XPTrS BFrmK67yBSrHAsiXt7ug0 X4m907WIQjPJXbcH04Ny0 udDogMTBwdCBU mE6ewzqdy1xqpziqFlCyD ECtZDs2GNb8TOTozMavCy DxXSN6DfZ9XVI5aHWoyM9 gvSibfepxuZ7i Oyc+M64lgG0pHTA9QIZ6l kkvWCNtwkLhUG71AD56S5 RyPjwvdGFibGU+PGRpdiB fhIlfON8vBsGx r5uzj8NpLGluV3TxISUbI WgiVib7BHKnVRG4pOK6zU 2nIEJzCRhln8F3aAD4E4Y fdqCwqd5cr9ek MSGoAIanP03eoHOlx2R0Q ARfiTD2XJFpeUreGiWxzL 93Oyc+PMNbqNqlu9SeUzk it9hzi5ackXj3 NfZqRGAajdYubSpfYOX2m 2YkIm13Q18yGCauBJUfVD OlBFWwZBEuvUzfes4wxW7 wIi8+PGNvbCB3 oNQ7pF6gXMVmZoC7DQyoI 160UnGriNYlDbdtp6uhu0 hfpNa4NbYrETIjywMhvUi dXTN0x3SiXp67 M59dCEcvQZKqPBKjTMZtE QWnjUmpeh0kuA4dGd6+PC 6xb4uevp54lU38uAK+PHR qRKU7gPiiDKgh GCBejF0gTJifIcG0VZZpE iGmuB63nLJlFAbiDk1yeE xzuIpwXO0vHFUjqmkch79 8SfDxp7wkJJWe eGCrXXfcWAZ0Q03aa6Q4C EOzVUYtDIG3xTI9hI7eoI lnbjogbGVmdDsgdmVydGl nLKooFZqlJ292 IHRvcDsnPlBhdGllbnQgT xKdJWx9P0QtTgl0BUVamB ncYT8ciKSiHPmuDu2azYd iwAlpSZ7pHWKt zeoee149GcGen5vuAPSnx JWaQGeaZRP9X94lo6C1CH ClDZRnZRU1eRD0xC2jbCg nbjogbGVmdDsg dvOhjVkoCVziUDzmO274P HRvcDsnPkJpcnRoIERhdG T2EN58RO40sOCtt2O9lJS 4T0UtERAqybxk uyhgmXF7NWNuRMKcxC36F f5vdUcpKu8wIXCcOEA4RZ NucBMsD2IsaN6lCfZiNTQ gIJEyB4AivNQh SUpoQ788UIidWfB0RMFhr vQbS9NgWZOtzAnrXjS0u7 O1Gp8AA5X1TH88CD86tKT jz0Q7rTE8E0Cu DVHubxonbqoreMD4GNWyJ VUlwC19Zh3aqJduRl3fAN LoCFD2SQHnlVPbF9YqgC4 yOiAjMDAwMDAw G0PgzBUrBRenE446TPtmG gM4SNAzouPgJ0LaQGVnyF roAfK4i3B6Sr8QOZk3FK3 2KA42bKTqy1Q9 eCR2F7DzWFHhhtiddacft MM3PYZtZDNxvG66Zb5lhT uwMm7jZLOgIOW0EQKecKV xR0YxyH6lUpUt BCSeFBLjE8XlcWPfVAazF 374USfsFlA4GUJhhkLpN4 DpBZMfbVopLsJ0k2G5Lx3 KHPWeGS23NPE3 bRS3VK16KJ77D7PrPxjxy GFibGU+PHRhYmxlIHdpZH RoPScxMDAlJyBzdHlsZT0 zGc2sAQIuHRPl vMzxhIUpPnJsc9ptJJPmL TthAF1qgQcjX2IszZC0RN Wnd7y7Mj10M00gJ2IkaAF +MGFmiZM6jZB5 gX7hEiEyLqX1YZonK113G rAiqDCrSpvlf7tsp1cgoG b8IqO3ZCSwwqEloVioJPJ 3e4RfZg59L84c IHdpZHRoPSIxNSUiIHZhb Krygh5bdP3cLu7+PGNvbC S0aAH9qC4eMkCpFqQ9QAd cF306IzKvzLIi Nbwaf0kyy9grdJj4CxWpA QHpkrMozEavBSL1s5JuTv 99D9LmhNghx7YxElc0id6 4yZRpp8V2fGY1 L5GmPVCjkewbiXGbiQzrZ L7qSALuwvgtUIQxlD8tQW RbW1l8FqYiRwA9PBogO8S pnlM3KYFvqCUm YUxpHBG1B93mc8E3VTDdL HDbFII3nSN8gB3vvRwocs ogbGVmdDsgdmVydGljYWw lZMqoA479GATf oZgcPNSekP2gXFShcUIqa EvfAG5sDIFlfsboWlZFUQ 0NFIExARwQWYHVLDI3W2C jUvd4QNRydIox XC2akHHzPSmqLt8ypYjmb BdsXJ0hQJXdrnuzSECmzJ 4pERPlcTXkvJcdFE2fKIR zmhskq158HhUu IUI1TGWsyAOaO4XuaY9aE tYwPIMiLOZdA8SneKPuFQ raO963EYuaBrB5UWPrjcM cR3TiVOAveWir VsZ2s4U7Gg5wLU6hSJ8tN MKeBM57HD95tXNfd5D4dU D5C5RgZIAvwnbxvjbgoDR 5JKRtPOUntC80 uZHtLKxvLh3by9O7r566R XXgFXVsoA15Qm0yfKbeZS OqaLEWwK1mfdxzw0vcuuu gIzAwMDAwMDt0 ABw5CIUxmSscAoEkBAW9I pI7KHB7jPFdmT6ocDuidy bciF1sWdp+NTkgWWVhcnM 1W3HqCtq1FORf vKzmPD0tjTFdADxmFy0py KmmfOeqTP9mOSSggkmtIW IqsE0yWGAquUBeyHdfVA4 cQJEyjgelv912 XlIkXDA8IMBhdXKoM4Xod M9uTvXrTDVfRFKfR5NqhT TvMOmgD165OMrgSyS1ECE lfhUoK0NaAWUj pLvmPeH0t1J9Po6SPM2jn TI1O3QkKuj5TNXlwEzoIG 3spYYjRFloVa9cbElfkIy lNW3iVMEzmfxv KZHguK6nRCVhoUObrBdsN T7jSOFetktkl016RkMjNZ R5XOMfzYXgJ4PbzG9sRtF vRLEvHBBzF4Qe mCThIHybF775GVifYvG9S FFqcqZcD2PiVGBwzWtcLs N6o4R6Rf9IzWJqVJVmOC7 8KM54WW31C7Wx PjwvdGFibGU+PHRhYmxlI HdpZHRoPScxMDAlJyBzdH pfJN7aXy1oIRBpXSHinPb nfYJnTlRsw2ox NGWkAZntFB8vpFnlA0Efq RS2DAVfk6d7Px46K34eI7 JvdXA+NLWuaTU5jYI0hM1 wJxZfIyM7AWdo A455HwMlwPJzPbwvy0elp 2uqgGz3UvOpDBXfnpGjlJ aaTMN9e1IwTk91S84kTAn pZHRoPSIyMCUi PHFxdSxlmx4zrH1nQx0+P BPuiEK5wUC6iM5vJhOdFl G6HHmdH149DkMpwZTyRjw qK20xC3UzoXZ+ IUKvKod4ROXhiKeuRT4qx WOsOQtkHq9wBDC3WqLdMo WcKOxaA7DhTUSuslabnxq cvLY8OOKxARJf vD63Nr4zuXxwMj3zXNObA XI1FGQnbNVuH8CclT5fLh PvHNFuBCGjR8KimCItNHc eU442TSmdZbN3 WNBomtUyG6CrGMBxiNxsN uS8k1E7Zf9CjSmjkFVpNV 2kTdTrWGh9U3TqHcw9CTB vgRliUH8wdKMf YBnpDl7tfDbdcSpbTR4wX MPyepsyq967AhZqj6wyUX PtyHDfDJbnDBZ4W63uv3W 5TENmAJHbVBG2 jIS1xB7auFydqgkblUSov DsgdmVydGljYWwtYWxpZ2 72LMWgsVzhSsZITeo8V9F xKbb2OVGriJvq EM2vlJSiOZzsPu0tsRpqy OrvZC1mAKTvpqauj072Yn Eyr7gbEWDnlNEdLTadPPO 8J09yg8P4ZMOc FWPiJZA7pVZ8zQ1vgEafq jogbGVmdDsgdmVydGljYW ueZGpgO629UODcsBscUp6 GAfd1E2JnVyu2 UVYasAstBY5bxEKjBGvlV u2snBakqNphWJ5zFVBscl qre632HpYrr7tpFEOppPY cZTejSZE7O37n t1K2ARJcBBUiSET9cCX4x K4ycAvrinbotWJfuDrtqv IdkPtcMXalUJjnF018HOC vcDsnPlBheWVy OjwvdGQ+VP51sc80R9MwD pjzTgi2HEVnEIY3jSY9gO 3tPTRvIKgni0J2mDG9E9U ruqXect5ux3jl YXBz (more content not included)... [facility] XR Spine Cervical 2 or 3 [...] M.D. Transcribed by: CAITY Technologist: SULY [facility] Consent for Treatmenton 10-05 Consent for Treatment [id number]# 1.00CD:127 [facility] Consent for Treatment [id number]#1 .00CD:127 [facility] Consultation Noteon 11-01-19 Consultation Note Patient: [...] has, # 60 tab(s), Refills(s) 0, Pharmacy: [facility]/pharmacy #[id number], 166.8, cm, 10/11/21 14:46:00 EST, Height/Length [...] Oral, Daily, Prophylaxis fluticasone 0.05 mg/inh Nasal [place]: 1 spray(s), Nasal, Daily, Refill(s) 0, Allergy [...] list: All Problems Palpitations / SNOMED CT 615806200 / Confirmed 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 Hypertension / SNOMED CT 0413949308 / Confirmed Anxiety / SNOMED CT 89006856 / Confirmed Lumbar disc disease / SNOMED CT 9446449947 / Confirmed Lumbar radiculopathy / SNOMED CT 044881381 / Confirmed Chronic gastritis / SNOMED CT 04639424 / Confirmed Migraines / SNOMED CT 48716669 / Confirmed Insomnia / SNOMED CT 026031673 / Confirmed Colon polyp / SNOMED CT 273189505 / Confirmed Chronic leg pain / SNOMED CT 190289700 / Confirmed 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 cluster headache / SNOMED CT 908924946 / Confirmed Vitamin D deficiency / SNOMED CT 47651615 / Confirmed Hyperlipemia / SNOMED CT 03101015 / Confirmed Osteoporosis / SNOMED CT 043615721 / Confirmed 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 [facility] Comment on above: Result Comment: Elec tronically Signed By: Sophy Rush PA-C\.br\Date and Time Signed: 10/31/21 12:26 EDT\.br\Electronically Co-Signed By: Derick Meza MD\.br\Date and Time Co-Signed: 11/01/21 07:42 EDT Office/Clinic Note-Physician on 10-31-2021 Office/Clinic Note-Physician [id number]# 1.00CD:[address] [facility] Orders Officeon 10-31-2021 Orders Office [id number]# 1.00CD:127 [facility] Physician Orderon 10-31-2021 Physician Order [id number]# 1.00CD:127 [facility] Orders Officeon 10-28-2021 Orders Office [id number]#1. 00CD:127 [facility] IntraOperative Documentson 0 10-25-2021 IntraOperative Documents [id number]# 1.00CD:[address] [facility] Vital Signs Date Time Vital Sign Value Performing Clinician Faci lity 10-10-2022 13:14-0500 Diastolic blood pressure 68 mm[Hg] [employer] [facility] 10-10-2022 13:14-0500 Heart rate 62 /min [employer] [facility] 10-10-2022 13:14-0500 Mean blood pressure 90 mm[Hg] [employer] [facility] 10-10-2022 13:14-0500 Respiratory rate 12 /min [employer] [facility] 10-10-2022 13:14-0500 Systolic blood pressure 135 mm[Hg] [employer] [facility] 08-22-2022 13:06-0500 Diastolic blood pressure 61 mm[Hg] Eddi Arana [facility] 08-22-2022 13:06-0500 Heart rate 65 /min Eddi Arana [facility] 08-22-2022 13:06-0500 Mean blood pressure 76 mm[Hg] Eddi Arana [facility] 08-22-2022 13:06-0500 Respiratory rate 16 /min Eddi Sumit [facility] 08-22-2022 13:06-0500 Systolic blood pressure 106 mm[Hg] Eddi Sumit [facility] 07-11-2022 13:57-0500 Diastolic blood pressure 76 mm[Hg] Eddi Sumit [facility] 07-11-2022 13:57-0500 Heart rate 77 /min Eddi Sumit [facility] 07-11-2022 13:57-0500 Mean blood pressure 99 mm[Hg] Eddi Sumit [facility] 07-11-2022 13:57-0500 Respiratory rate 16 /min Eddi Sumit [facility] 07-11-2022 13:57-0500 Systolic blood pressure 146 mm[Hg] Eddi Sumit [facility] 06-20-2022 12:30-0500 Diastolic blood pressure 75 mm[Hg] [employer] [facility] 06-20-2022 12:30-0500 Heart rate 57 /min [employer] [facility] 06-20-2022 12:30-0500 Mean blood pressure 94 mm[Hg] [employer] [facility] 06-20-2022 12:30-0500 Respiratory rate 12 /min [employer] [facility] 06-20-2022 12:30-0500 Systolic blood pressure 133 mm[Hg] [employer] [facility] 03-28-2022 12:43-0400 Diastolic blood pressure 69 mm[Hg] [employer] [facility] 03-28-2022 12:43-0400 Heart rate 51 /min Sophy Rush [facility] 03-28-2022 12:43-0400 Respiratory rate 18 /min Sophy Rush [facility] 03-28-2022 12:43-0400 Systolic blood pressure 135 mm[Hg] Sophy Rush [facility] 12-20-2021 12:28-0400 Diastolic blood pressure 79 mm[Hg] Sophy Rush [facility] 12-20-2021 12:28-0400 Heart rate 51 /min Sophy Rush [facility] 12-20-2021 12:28-0400 Mean blood pressure 97 mm[Hg] Sophy Rush [facility] 12-20-2021 12:28-0400 Respiratory rate 18 /min Sophy Rush [facility] 12-20-2021 12:28-0400 Systolic blood pressure 134 mm[Hg] Sophy Rush [facility] Encounters Encounter Date Encounter Type Care Provider Facility Start: 09-10-2023 Telephone encounter Tiffani Munson [employer] Work Phone: [facility] Start: 09-05-2023 Telephone encounter Tiffani Munson [employer] Work Phone: [facility] Start: 10-10-2022 End: 10-11-2022 ambulatory Derick Meza Facility:[facility] [place] Start: 10-10-2022 End: 10-10-2022 Patient encounter procedure Sophy Rush [facility] Start: 08-30-2022 Encounter for genera l adult medical examination without abnormal findings DR EMI FRIEDMAN . [facility] Start: 08-26-2022 End: 08-27-[address] EMI FRIEDMAN . Facility: Start: 08-26-2022 End: 08-27-2022 Encounter for general adult medical examination without abnormal findings DR EMI FRIEDMAN . Facility: Start: 08-22-2022 End: 08-23-2022 ambulatory Emi Friedman Facility:[facility] [place] Start: 08-22-2022 End: 08-22-2022 Pain Management Eddi Arana [facility] Start: 08-01-2022 End: 08-02-2022 ambulatory Eddi Arana Facility:[facility] [place] Start: 07-11-2022 End: 07-12-2022 ambulatory XXXX NONE Facility:[facility] [place] Start: 07-11-2022 End: 07-11-2022 Pain Management Eddi Arana [facility] Start: 06-27-2022 End: 06-27-[address] YASMINE DAMON . Facility: Start: 06-27-2022 End: 06-28-[address] EMI FRIEDMAN . Facility: Start: 06-20-2022 End: 06-21-2022 ambulatory Derick Meza Facility:[facility] [place] Start: 06-20-2022 End: 06-20-2022 Patient encounter procedure Sophy Rush [facility] Start: 05-04-2022 End: 05-05-2022 ambulatory Sophy Rush Facility:[facility] [place] Start: 05-04-2022 End: 05-04-2022 Patient encounter procedure Sophy Rush [facility] Start: 04-20-2022 End: 04-21-[address] EMI FRIEDMAN . Facility: Start: 04-04-2022 End: 04-05-[address] EMI FRIEDMAN . Facility: Start: 03-28-2022 End: 03-29-2022 ambulatory Derick Meza Facility:[facility] [place] Start: 03-28-2022 End: 03-29-2022 ambulatory Derick Meza Facility:[facility] [place] Start: 03-28-2022 End: 03-28-2022 Patient encounter procedure Sophy Rush [facility] Start: 12-20-2021 End: 12-21-2021 ambulatory Emi Friedman Facility:[facility] [place] Start: 12-20-2021 End: 12-20-2021 Patient encounter procedure Sophyashley Rush [facility] Start: 12-08-[address] EMI FREIDMAN . Facili ty:[facility] Start: 10-31-2021 End: 11-01-2021 ambulatory XXXX NONE Facility:[facility] [place] Procedures Date Procedure Procedure Detail Performing Clinician Start: 08-01-2022 Epidural injection of lumbar spine using fluoroscopic guidance Eddi Arana Comment on above: L5-S1 CHRISTY- 0% relief Start: 10-18-2021 Cervical arthrodesis Sophy Rush Start: 06-13-2021 Epidural injection of cervical spine using fluoroscopic guidance [employer] Comment on above: C7/T1 CHRISTY-minimal relief Start: 05-26-2020 Esophagogastroduodenoscopy Sophy [facility] Start: 05-06-2020 Hemorrhoidectomy Sophy Rush Start: 09-04-2017 Colonoscopy Tiffani Munson [employer] Work Phone: Application of pelvic traction Sophy Rush Comment on above: for 8 weeks in 1988 for left broken pelv ic bone Aspiration of ovarian cyst [employer] Comment on above: 1987 Bone structure of left navicular [employer] Comment on above: 2019 removal of pieces of broken bones Deviated nasal septum (disorder) [employer] Comment on above: 2003 Excision of lesion of skin [employer] Hysterectomy [employer] Comment on above: 1993 Injury of right ankle Sophy Rush Comment on above: Dr Fields Ligation of fallopian tube [employer] Comment on above: 1984 Operation on lymph node Fredy marianne Rush Reduction mammoplasty [employer] Comment on above: 1989 Structure of left sh oulder region (body structure) [employer] Comment on above: 1986 Plan of Treatment Date Care Activity Detail Author Start: 08-28-2024 DTaP,Tdap and Td Vaccines (2 - Td or Tdap) DTaP,Tdap and Td Vaccines (2 - Td or Tdap) [facility] Start: 04-06-2023 COVID-19 Vaccine ( season) COVID-19 Vaccine ( season) [facility] Start: 04-06-2023 Influenza vaccination Influenza Vacc ine [facility] Start: 12-21-2022 Adult BMI Screening Adult BMI Screen ing [facility] Start: 12-21-2022 Tobacco Screening Tobacco Screening [facility] Start: 09-04-2022 Screening for malign ant neoplasm of colon Colonoscopy [facility] Start: 1974 Depression Screening Depression Scre ening [facility] Immunizations Immunization Date Immunization Notes Care Provider Catrina michael 05-11-2021 influenza virus vaccine, unspecified formulation Tiffani Munson [employer] Work Phone: [facility] 12-01-2020 SARS-CoV-2 (COVID-19 ) Ad26 vaccine, recombinant [employer] [facility] 11-10-2020 SARS-CoV-2 (COVID-19 ) Ad26 vaccine, recombinant [employer] [facility] Payers Date Payer Category Payer Medicare A[employer] MEDICARE A [employer]NA MEDICARE PLAN (HMO) [id number] 2023-Present [phone] [address] [place] [address] [id number] 2018 Unknown [id number] 1962 Unknown [id number] 2.16.840.1.885229.3.579.2. 1962 Unknown [id number] 2.16.840.1.601506.3.579.2 1962 Unknown [id number] 2.16.840.1.238862.3.579.2 1962 Unknown [id number] 2.16.840.1.390382.3.579.2 1962 Unknown [id number] 2.16.840.1.782705.3.579.2 1962 Unknown [id number] 2.16.840.1.606352.3.579.2 1962 Unknown [id number] 2.16.840.1.068828.3.579.2 1962 Unknown [id number] 2.16.840.1.031085.3.579.2 1962 Unknown [id number] 2.16.840.1.429726.3.579.2 1962 Unknown [id number] 2.16.840.1.822744.3.579.2 1962 Unknown [id number] 2.16.840.1.491135.3.579.2 1962 Unknown [id number] 2.16.840.1.087913.3.579.2 1962 Unknown [id number] 2.16.840.1.550061.3.579.2.727 1962 Unknown [id number] 2.16.840.1.779985.3.579.2.727 1962 Unknown [id number] 2.16.840.1.351668.3.579.2.727 1962 Unknown [id number] 2.16.840.1.185609.3.579.2.593 1962 Unknown [id number] 2.16.840.1.160664.3.579.2.593 1962 Unknown [id number] 2.16.840.1.439945.3.579.2.593 1962 Unknown [id number] 2.16.840.1.896905.3.579.2.593 1962 Unknown [id number] 2.16.840.1.700030.3.579.2.593 1962 Unknown [id number] 2.16.840.1.535239.3.579.2.593 1959 Self-pay Social History Date Type Detail Facility Start: 06-28-2021 End: 12-21-2021 Tobacco smoking status Ex-smoker (finding) [facility] Tobacco smoking status Never [facility] Start: 09-16-2020 End: 12-21-2021 Sex Assigned At Female [facility] History of tobacco use Current smoker [facility] History of tobacco use Cigarette Smoker [facility] Start: 09-16-2020 End: 12-21-2021 Cigarettes smoked current (pack per day) - Reported 1 [facility] Start: 12-21-2021 Tobacco use and exposure Smokeless tobacco non-user [facility] Start: 12-21-2021 Alcohol intake Current drinke r of alcohol (finding) [facility] Start: 08-22-2017 Tobacco Comment QUIT 9 YEARS AGO [facility] Start: 08-22-2017 Alcohol Comment SOCIAL/BEER [facility] Start: 1960 Sex Assigned At Not on file P [employer] [facility] Medical Equipment Procedure Code Equipment Code Equipment [...] Assessment Result Facility 10-10-2022 Functional Status N/A [facility] 08-22-2022 Functional Status N/A [facility] 07-11-2022 Functional Status N/A [facility] 06-20-2022 Functional Status N/A [facility] 03-28-2022 Functional Status N/A [facility] Clinical Notes 10-31-2021 to 09-10-2023 Telephone Encounter [...] for a repeat until 2027. Spoke to [place]'s nurse and she states that Elisa is aware of this also and to please disregard the referral. documented in this encounter [facility] 09-10-2023 Telephone encount er Note Called Ramandeep Mayr/Dr. Friedman's office as we received a screening colonoscopy referral for Elisa, but she had a colonoscopy in 2017 and not due for a repeat until 2027. Spoke to [place]'s nurse and she states that Elisa is aware of this also and to please disregard the referral. [facility] 09-05-2023 Miscellaneous Notes Formattin g of this note might be different from the original. Called Dr Friedman's office as we received a screening colonoscopy referral for Elisa, but she had a colonoscopy on 09/04/2017 and is not due for 10 years. They are to let Dr. Friedman know. documented in this encounter [facility] 09-05-2023 Telephone encount er Note Called Dr Friedman's office as we received a screening colonoscopy referral for Elisa, but she had a colonoscopy on 09/04/2017 and is not due for 10 years. They are to let Dr. Friedman know. [facility] Evaluation + Plan note Extrac [...] will follow-up with Dr. Derick Meza at [facility]. She has this information. Future Scheduled Tests Radiology* XR Spine Cervical 2 or 3 Views 10/31/21 [facility]01-17-2023 Evaluation + Plan noteExtracted from: Title:FUV Author:Eddi [...] Spine Cervical 2 or 3 Views 10/31/21 [facility]12-27-2022 Note [id number] 07-11-2022 Evaluation + Plan noteExtracted from: [...] Spine Cervical 2 or 3 Views 10/31/21 [facility]11-15-2022 Evaluation + Plan noteExtracted from: Title:Spine Follow [...] Spine Cervical 2 or 3 Views 10/31/21 [facility]08-23-2022 Evaluation + Plan noteExtracted from: Title:Spine follow-up [...] Spine Cervical 2 or 3 Views 10/31/21 [facility]05-17-2022 Evaluation + Plan noteExtracted from: Title:Spine surgery [...] 12:30:00 PM Scheduled Provider:Sophy Rush PA-C Location:[place] Appointment Type:Pain Management - Follow Up ([place]) Future Scheduled Tests Radiology* XR Spine Cervical 2 or 3 Views 10/31/21 [facility] Evaluation + Plan note Future Scheduled Tests Radiology* XR Spine Cervical 2 or 3 Views [facility]31[facility] App[facility]ments Appointment Date:03/28/2022 12:30:00 PM Scheduled Provider:Sophy Rush PA-C Location:[facility] Appointment Type:Pain Management - Follow Up ([place]) Future Scheduled Tests Radiology* XR Spine Cervical 2 or 3 Views [facility]31[facility]ments Appointment Date:04/25/2022 11:00:00 AM Scheduled Provider:Sophy Rush PA-C [facility] Appointment Type:Spine - Follow Up ([place]) Future Scheduled Tests Radiology* XR Spine Cervical 2 or 3 Views 10/31/21 [facility] Future Appointments Appointment Date:05/23/2022 11:30:00 AM Scheduled Provider:Sophy Rush PA-C [facility] Appointment Type:Spine - Follow Up ([place]) Future Scheduled Tests Radiology* XR Spine Cervical 2 or 3 Views [facility]/31/21 [facility] N[facility] No data available for this section [facility] Discharge instructions No data available for this section [facility] SystemInstructionsNot on filedocumented in this encounter [facility] System[facility] No data available for this section [facility] Summary Purpose Family History No Family History Records FoundNo Family History Records Found Advance Directives No Advanced Directives Records FoundNo Advanced Directives Records Found Additional Source Comments Care Team (unrecognized sect ion and content) [employer] Relationship Specialty Start Date End Date Emi Friedman MD [address] [place] [address] PCP - General 08/15/17 INFORMATION SOURCE (unrecogn ized section and content) DATE CREATED AUTHOR 10/23/2022 [facility] DATE CREATED AUTHOR AUTHOR'S ORGANIZ ATION 11/28/2022 [facility] FOR RECORDS PERTAINING TO PATIENTS [...] BE BASED ON THE PRIMARY CLINICAL RECORDS. [facility] [employer] provides no warranty or guarantee of the accuracy or completeness of information in this document.
== END 2024-01-18 13:44 | disposition home or self-care (01) ==
LOC: MRI 13:43
PROVIDERS: PCP Family Medicine; Visit Provider Family Medicine
DX: R41.3 Other amnesia (principal)
CPT/HCPCS: 70553; A9575

== ENCOUNTER 2024-02-05 10:27 | Outpatient (OUT) | payer MEDICARE, SELFPAY ==
--- OUTSIDE RECORDS SUMMARY | 2024-02-05 10:35 | XMS_ITS | CCD ---
Author Organization [facility] Care Team Providers Care Rouge Mixer Name Role Phone Emi Friedman Primary Care [...] Unavailable Emi Friedman MD Primary Care Provider [phone] Allergies Allergy Classification Reported Allergen(s) Allergy Type Date of Onset Reaction(s) Facility (14 sources) Adhesive Tape; Translations: [Tape] Drug allergy Eruption of skin (disorder) [facility] (16 sources) Penicillin; Translations: [penicillin] Drug Allergy 9 Weal (disorder) [facility] (14 sources) Sulfonamides (Antibiotic); Translations: [sulfa drugs] Drug allergy Weal (disorder) [facility] (1 source) Desonide Drug Allergy 9 [facility] (1 source) natural latex rubber Drug allergy (disorder) [facility] (2 sources) Sulfonamides (Antibiotic) Drug allergy (disorder) [facility] (2 sources) Adhesive agent Propensity [...] Active Start: 10-03-2021 take 1 tablet by [facility] once daily biotin 1000 mcg oral tablet [...] Corticosteroid Start: 05-20-20 fluticasone 0.05 mg/inh Nasal [place] 1 spray(s), Nasal, Daily, Refill(s) 0, Allergy symptoms Start Date: 05/20/21 Status: Ordered take 1 spray(s) nasal route once daily fluticasone propionate (FLONASE) 50 mcg/actuation nasal spray Administer 1 spray into each nostril daily. 0 Active fluticasone 0.05 mg/inh Nasal [place] (6 sources) Start: 05-20-2021 fluticasone 0.05 mg/inh Nasal [place] 1 spray(s), Nasal, Daily, Refill(s) 0, Allergy [...] blood pressure Start Date: 10/03/21 Status: Ordered [facility] Medication (4 sources) Start: 07-11-2022 [facility] Medicatio n See Instructions, collagen powder 1 scoop daily Start Date: 07/11/22 Status: Ordered xkyumqvv-aspy-PH-ca lcium &mins (THERAGRAN-M) 9 mg iron-400 mcg tablet (2 sources) qfjiditt-nsvx-QZ -ca lcium &mins (THERAGRAN-M) 9 mg iron-400 [...] Range Facility Coding Summary.on 10-23-2022 Coding Summary. CD:[id number] G h0bWw+PGhlYWQ+NK2BUAJ qK63gdDZldG7zQ1OXMPfQ SywgQVBQTElOSyIgbmFtZ C2ajIYbGOPb IC8+DH8eOTNmZiafwVUbn 2X1tMV6B61qtc4dJScwkJ B8FHCsGoCcokbmv9bmaOk 6IDcuNmluOyBt RLMfeL19WDI8dY18Kw53e NPqmUWks6wafVf3EfKtSR IvJZF7oAnyTNpjo4OnSFF jD50zeIOvg3V6 UAGghJvykXKoYaLxeXU1g T4qFRpriyefx3wahpxaXl j2rc97hEKot9D9pTY1A0L gcuV7RLTxaRZt OyjodXJPoA2bkrbkm3tzj pymVpKjHSVsFXl8XMf8FJ NjrWaoBtLcDW05CJW0YYN ktlQrR9HuOGOq kIsvFwK3c8E6Bx3NG2DBD uvaH7UCAHICNFjecDS+PC 91la98N2OyGvnzJof4FDJ xSWP9gME5uO7g JVDbPAmhi7V5iBN4D8Kgj sJyrs3yr7ijVQKsCRybU5 3kuTKpe2I1RCYeyEU1HON xtEavLuZxqX54 Oyc+MLHmyQjfi4WrEsctw 4aff2brkQv0UhvmFCNzcw RwaYjyFFQ3a8EeEz5wQOX saPB9mOJ5iQ1z KsSkLiE9ROnsO012HkJta QLlHpyhJ80eJ3UfwWJ+PH CtBwl5KNSbdOpmAR6rA2E hZGRpbmctbGVm qBvzUH4vOXXwmihqMRYvk J5aJUWyJ1p0QwUrBfI3ED amG9XfMTSsppssQg27lD9 zCwFhBaM0DTno Y0KntlP1KBOjpEXsUTtlR QU8T70tq7V6VZCpPKGrFF P3aIG6pA4spSakgceelVO mdDsgdmVydGlj EVbnDFmrF555GSCdiLwgZ kNvZGluZyBEYXRlOiAgMD MvMjAvMjAyMzwvdGQ+PHR xBFI7xQvlBCFl dDAtKScqKn6xmKxraJbbJ N0sJKPqgvfbPQOaiM4jSA IqfTJqlPaxCC0uIPKyxee zl195QdMnQJY6 ZRGhiCFxA3PveP1cHkZmD YNxRRZbD7TfzMLkFSpmG2 76NQfiCvS5LPZmgiAzW3J sLWFsaWduOiB0 z2C5Rx6Va0HnlivmI4Gjs ITtGjVlThybLHw5B3PnLn wvdHI+KJ66CPRsZV49ULw 2FOK3bFyfHJtm KKRmY9EhvU6vWeGzXQDjR GRkOyc+PHRhYmxlIHdpZH RoPScxMDAlJyBzdHlsZT0 yWi7zWDIfBERf pXwixBIhVwJiv2eiOERwP TlzZI4meBubL0GkxDE9LY Dku1t8Fl18B91nV8PvwMI +GROubJJ8jIL2 bQ9iMvWxNqN7SDhtA660R sCfiWAvOertm3nui1ehbL v1IiH5LZXglxJiuWacVBE 8g9AhIr84J65b IHdpZHRoPSIxNSUiIHZhb Xnqjn8fzB7eJx3+PGNvbC P5oBV4bS0yWfBmWjJ9TWj eN659MwRyiURk Qpyrr3iuk7zprWb7BcNxV XAltdDmkQmxCGA1z8WyKm 89O5CqwJnmz3LzGxu3ny8 8kAKzs6G9cYS8 R1KeJBObivpivVKugIxcH H1uNWKcliudFDOcwP4pUJ QxT5v8CpQvUoY1QSazI6V wyqI2QPWiaHXj RGZibCZQoV8xxrqms7myn vguFqTuASQzPYg9QDy1DN UlfPkyQrJkZSU3ZwF3RED 7eLLasS7dyIsz kwpzuG6jByy+XJP8qRGis RGFYE5wKvezvPI+PHRkIH U2aHfzWYnlPAOxmN9pZVB sT4l6WyImIfC4 VHfhX1SnjwH6SDEfwBVnA FKerUHEpJ9ogwvpd0eoww sdRqDlAXIcEQa7KCa1KQK saWduOiBsZWZ0 XeM3LVX9kSPquX7zzFqxt szwjI9kYgw+QmlydGggRG X1YZt4K5RaOmr9BWQwbNb tZW3omMGlXGva Mr5sxQxouZdwVQ6dRAMqj lngv723YnHmf5wfVCHhoT BoLWsmKJH7N29oi1J6FVG vLEYsJPM7lZF1 mA5cuAectniwlRZyxDyum qAsnIgyHKfqYZmnX867GX MrrQuwMqSbBJg6Y2YoJqc 4SVVxwHoyML4s gGZoBParAg6duWuvhRccG V4rSVRxcsmse452CjIrb9 hsFNJesVMrSFhcSKG4O39 vy4G1HCEfMZTy YUU1gMI3xR0dhJvaxvzlf GVmdDsgdmVydGljYWwtYW utP690CKDzkTmcXcAckSe 2B2TuWbd9JAAe oUwsSF7seNZkGHqcZq0gn YffgPplLA4gAHLakeyiz0 14PzMhk5mbYHQowZPyCXg yAES0K01ll4Y5 HYLnTSDaWNC8sEQ8lS1vv GlnbjogbGVmdDsgdmVydG chCZfqFQxkX678JVNghLz nPlBhdGllbnQg DUaoKOr0S5IcTdklqXT+P E85GJRrIJ09lBLgqRMvg5 ltmXq3AbQrIQBpSZB2tQp qRQahi1GmJSXf Y30giYJtk1X8WCRjbCdol TSyBwYmsLK8wZ8jSAezkj cyi6pkqgxwLbbxe8reug7 6zQ81T56aMSij ZHRoPSIzMCUiIHZhbGlnb r4nlJ9hUv3+FUKjsLX7lN D3nC6tTRVwBcP8GAumG67 9InRvcCIvPjxj q5qvy5zjsSg1WlS6GOJqk iSwrXskNTR5q3WlNs62T0 9sIHdpZHRoPSIyMCUiIHZ ejIlljg6cfD5q Ii8+QUOzcJM1tEQ1aC8mC rYuAjD3ATcqF897NcEbmD JjIqsrH25lM8UykES+PHR iXdz6TMZwnHgb PZ1nlKQjLPjaRs8mOIY8D lTpLvAyAPxuY4RnGABivn xqtmgdaSU0BKGmVHJbiN6 1Vp3bpMkkHKMk dGUGwF4ourtdn6koeptuQ mScBTKfKGd9ZPe6FWRstT hhBwXfXYO6WkV8ZOQ8oML emS3qbYepoibw gJ1iF0VvCINprobpZe66a D9fTdArVtX6JGciOmc+Ql JTYg3JQWidKLBAFxGgCPu vdGQ+PHRkIHN0 cEyvJKqfMOQzpO1hCGJnQ 8x8RpLiRxI2QMxmV4QgIA StttlcUd47rS3uHgTxJfS 9VYnnY3LpmsB1 LLCfuSLgLLjzGRG1V27xw 2L5VQEhWOCiXAK9aIF0nC 1hbGlnbjogbGVmdDsgdmV ydGljYWwtYWxp L412YVGiuBelBbK6MxQfS kG6QdW8I4GtCpg0FHYaiR rrXF5gxJWuQZnrEt4fdMr cqWsrFJ3cSHMo wrmySIBruA7lFLKtbUGmu CmfRS2wNFPhprukq701Gd PqUKU8IDNtbXUiQ8BkrL2 yOiAjMDAwMDAw P1KlsIDtBWqoO398SBgsO xW7YZNibjCoG1YeALRdhG vfGzM0p3K4Mj90NAQLNTK yczwvdGQ+PHRk LWM6rLinFKmiJKIafZ1yW GRcF5o4GtExPpZ2WMldP5 LnDJAbodlbDj19vQ4bTqJ kAtT8IEcwU6Vi mcY7LOAizGOyIRxaJAX6B 56lp7H4KZRfEPQoLXO3mF Z5nU0iwStjkfvvnQEwzZa gdmVydGljYWwt CAmsS555AKUezIquChNcl WFsZTwvdGQ+OKAaZXI1xR nwZAyhTJHimS8mKUAoL8m 0JoRlXsR7TNcy X6XpEDNynhnnEq92gQ6jG pLkXcX5ZEebA7FeeeI4HU CoiGFoFVagJZP8O88if4T 4FXKaAWHgOGX5 tNB7nO2gdJzkqmjmiFKrn DsgdmVydGljYWwtYWxpZ2 15TWPhcCyeNc35gRWheQa pwmN8U6CsXjcl dHI+UC83RYMhWM15lJJem MOvl7cckOz8JeUuVQYuYV S5wPnyMMcuu6OvRPJeY49 mmUPhg5D3ACMt iWcvhEZbVtKikIL0sY7fI Qhonvzay2hzkmcvNfbfw8 uvuq15aU75C58pAGjsDXB oPSIzMCUiIHZh yXzsgh6ckH4rNj3+PGNvb BA7nQH1lJ8oOdMiPyF0FZ ksO805CaYlvWVkXnidn3z hb7ugdVl0LcAt EUQunyEweNwzUIN1y6OuU o52Y67aEAjdBYDdXYAhXK YiXKEhwTldde2koB3pGm4 +BV1zw2sygl73 gI98wWY+PVQbPTG6gJicK RbhAEBcqA0jBLpvKtW1GO DyTuRtdZ84nWVoOMfvUy4 huSwiwMqnVY5f CHHyzrsne808TaMaa6pkD WMtoLEjHIgaAZH5H37bo7 P0IJNjNNGkQYB4wWJ2dR6 hbGlnbjogbGVm dDsgdmVydGljYWwtYWxpZ 559UVVvnVyfLjOtqJGaM1 gugvDYCZ5zChwiyAC+PHR wAPS1kRizOBev WMJbbK1lATZmR3f4RwTdD mL6NFgjS2RgwpB6JGYvrX TdQKCgwHLXbU0vdwcjd4s vcjogIzAwMDAw YUi4TUj6MIIjkMqyYjGmM UD5NqF0RXD1nIFexZ4jtL bephnldL7rCmk+RklOOjw vdGQ+PHRkIHN0 uQbrZLeuZMMxrP3eUMFvL 2x6WuPxJdD7JZtqM8Gztr P7QMCcuXWkUQKjbUBAwM7 zxhwze4yzuwpu KoDkHGDpYHm4MXp0ODVdk ZtrJyWsWDN1LkS5KJL1qD DbbW3wfZvgfhqsmX0pDaq +TVJOOjwvdGQ+ NBHaYHU9tLzmVKkyGTOlm O4aBQBjT5f0QrWtXmD3II iqC8WccaA9TQRucWHvTDA obFCBzK5ypvwb a2orxdbeAmGzXSFhCGt2Z Da8LLOsbFygFiFbOUA1Si Z6JHE1xBIcoH7jqCnnazu guC4lMst+UGF5 JSZ2SK81HH16Z7TvUpocc GFibGU+PHRhYmxlIHdpZH RoPScxMDAlJyBzdHlsZT0 jQi9xGIYrSNZy bGxh (more content not included)... [facility] Coding Summary.on 10-17-2022 Coding Summary. CD:[id number] G h0bWw+PGhlYWQ+VZ9OQVY gU06npKMskV6dX1QROXhT SywgQVBQTElOSyIgbmFtZ R1pmYLxSBBb IC8+GS2iEHAoAtnupATgd 8A5gWU5W80hwv7cPCxsjC C6RIVxCdTggiuci6ucwPa 6IDcuNmluOyBt HLPqxX70SQC9wJ01Ck53p BJuaQVcr2yndYd2SkPbJC VpOLV5fQpcZRuuj2YfVVG rG23uzKCqy6M3 ADUxxJozzPOaZnYcdVM7b J9rWFeuthpdr6ungqvrPp e1pl81tOHtx3C4eHV7O2V gzfK0JVIqpZAk GtoelNGBkU8jkcqka5xkv lfpGpLdERErRDo0OHc0IV QehVzdKkJgFY09HOZ3AWS faqBdP3QsSHPn hVxgKqH8c9A3Ao9XX0ONY woiM2AEBHEOEVnguCW+PC 91zh35F3WnQskiNsc9CRO pMXW3zST9jS1g ILOoSMavl9R5sNP0N0Gzp mZvhd0we8myUDGzQDosF4 6pdDUdp9C4UIQoeIF2PUH fgJeyIcYvtJ91 Oyc+FLOwhDtzp9XlQyoxh 9ygq1wdqHz1GkciSDEijz MdjJstXVD4j0UoHl5gVNC wvBL0gLL7xF4o UbLtNhX2TWbdJ097KsQcp ECeHcniU13nA4TyaMH+PH OtTmf5PZNgtZegSR7qO7F hZGRpbmctbGVm fBovRT4ySNDrrpgjPEOwk R3aGWNuM6o4SlDzXyS0TS haG3YtPYLhamqcBp32eU5 iZnHoFjF0YMud P5NncxW9ANPpbJJgRRmgN JP0W11or6Z8BMFtDWGkWA M3mHK2xR6qqPiakjeauLY mdDsgdmVydGlj GOzgIQmgZ009WVKrnPpiI kNvZGluZyBEYXRlOiAgMD MvMTQvMjAyMzwvdGQ+PHR kNVV3dGxfDGAt iJMaGQscOs0rpZrdrBmhK V6yHIUdvrcqUAPvtH7yOA XkkJPieRldKA2tBSFtylz na990HtSfGTG3 EYFkhJZkR4AbjN1zJeLyU CErUWDeV7CziDLhNMgzD0 01VOqaHqT4RSTbmtKpA2A sLWFsaWduOiB0 b5T9Ym1Zm5SdodgzH1Uyp YXcGlJuSogvSBs6J1BoWx wvdHI+CW43IAOpEE99SVf 2EDE4yCwjQCff JSYlE8ClrE2qOjHnJYMpF GRkOyc+PHRhYmxlIHdpZH RoPScxMDAlJyBzdHlsZT0 fZi0qPPRbJNDm rYpgdOOjMzIaw0ggUDNcY DfoBA6amEanW9ZmxKA4OH Iox1t1Xb35U41wF7JyqHQ +PAUozCW9uKU0 dB6wPyRmKcT3JHrxT936K rKexKTxOfdxt9ufr0fapQ e1UlI5ZTMcwoRfrYidTKB 1e3HlUr17V21f IHdpZHRoPSIxNSUiIHZhb Jpvmw3lkB9qSh0+PGNvbC X1nDK7vX2yGmTwOtJ4HXx mR211LlHhsIPm Yqaat2dlf8ulrIp4DqEpU NEfwzFgpBsdJIB6e0IwOe 56M9VqtXvwh3DiZnn7vm8 8tWBqd6H7aJJ0 I7YtVJXcalwfxBZemQhkJ B0mHYZuvmfgJRKpgG8kQZ WvH5a0PwWcWyU6QWugR3F iabL3XVCwpYFs UURhoADLxS2vhniyc2svi ocbFtZnGNJeBAn8FJe8TR DhtHhbSaMmPLX2DyK6XQF 3lLFolY8sdEgv bqxkdD7sSmb+LNE1iNRlq ZNDZV5oOlrokCG+PHRkIH D8gDhbPBhbWEYncG1gQIJ nY3y2FcZiFaN7 LHhdG6DrigD1RGImoAClU HNcmCLKsW7puyijn5gabo fgReTaLDQyFRi1FMp3GSO saWduOiBsZWZ0 PjG8FCO4qKYcjV4njCvva reouZ0hMmu+QmlydGggRG O0NPl4K0PxEsg6NZNpwVq bCS9zaEJxGAlp Nc2qbHktpOfzMG8sDAVxi xpwg476MlLtn2xgNXFbmB HwUYcbWRV2E21ki7H1KPM jSXTfQOM3nJM8 wI2jlWatixlslJYzyHkrt zTooYvwUJylFFveW615YI SbxWqtXsWuSVh5E6XqCox 8DAIadTfuRX8w mSLeMMpmNq3ffEbwrKqlI V5dZZWnowazq519GaLvg3 vuAVNqrAKaPUofTFV5A33 hw3I5FYZmAXOc VOZ6gLK1oI9kxWfsiazug GVmdDsgdmVydGljYWwtYW nqM098DPUmgJggWoDnbSw 2T1LbRvs3RGOv tDjqPE4awGQlKRtdMz4gl GrfjOgdST0aHGGtjmaxy7 45DvQxu3bkXBIwyUEtOSp kEDW0J01cg5S0 MYNyGNOfKIX7qCE9uA2in GlnbjogbGVmdDsgdmVydG bzBIyrKQzaM263IWJszJp nPlBhdGllbnQg IHcoGXs6U4LuLvaebWH+P V30DZJyBQ23wACbrWGnk5 rztYz5FkRnHJYkYGL2nCh lOBjua6HuFVYy S24jcNKfn2D7WLKnbPnzv AGiFmGmtZK0hI6nOZqqhv cqg9hkpbwhZmtvu1lguu9 9cQ30N47rZOap ZHRoPSIzMCUiIHZhbGlnb u4ciE7rZu5+OHExwWF2nL H2fG6qQWHcJaL6GIxlL61 9InRvcCIvPjxj s5acj1ookLb7MmW9CMCaj mFhqOteGRR0r0ElUx54P8 9sIHdpZHRoPSIyMCUiIHZ pnNadht7rtV8b Ii8+PHEdcOG6bKY5eT0lH mOjIjK1MRurB841DqFpsS NvYcqqV66zP3TmmXT+PHR fWro2FOBwdElg IJ1eyZSaHNxaDv5fGQN8A xOtZnKqXFzsJ7YaLVYwlz tuburtsFS8NHWeTHQutA6 0Dt0oeWjaDHVl fGYSdT5dqfonf0wjjqdhK bXqDHDxQPv2RZo0UZWwsC usQxCdWYE3KsZ5CKP3oFT vpF5ioXxmvnls dM5sS7WcHTArgrvxDb72d Y7rGsMtWxM9XSzeMcg+Ql QACm3BSEjxNEGHSqSmVHh vdGQ+PHRkIHN0 uVddARjhICCgkW1kFZKtI 1o2KrOkZjM9KFlpR6QbZU DumedcNl60aU9gIyLeZdS 0DDeoV8EwufW4 CWHjlYDmYXssPKK8M00vj 0F2VLXpNIFdVCJ6sSX6hD 1hbGlnbjogbGVmdDsgdmV ydGljYWwtYWxp I869PLFuwBbiIyJ7SfClK yV8KhS3O4FsXbu2RWXfbG ghDB5opUSqWYdmGt5qmCh vmAncUM7oNDQz emigMXEeeY7fJYRjwPLhu PjmNV2mBOXihjist474Tn WhMJD3DUZnkSCuE9ZctM7 yOiAjMDAwMDAw R1KxdABoAVcuM603JPrdD bV4DAHxodHrR8XvSVQglA diGkM4l5X7Og56ZUOYYEW yczwvdGQ+PHRk NCB2rOdxUPomQLOilF0oP GDrN0y4UpUaXpW1DOrmM7 BxVMQqebjkYa07lZ7hKrG bOpA3WVjyW5Be fyF0RAZpiLOwIUygNOE1G 32gt2B8ULJrGRQzZBS1uG H3xU7mwElkwyehbNYemXo gdmVydGljYWwt XHdvB331VTKqeMecKnVnq WFsZTwvdGQ+MRHtHFJ3dU oeAGijSBIymS2yBZTaL0x 9WqCwBaZ5XNxa J4PcKOXergiaNu91vG2hJ aOaTrG6UJyxT0WdcfT6XQ UeaQHtRVbyNMF3S37lp2F 9YXImFXQeADP1 aGF3lC7lgKmcimvsdVMyi DsgdmVydGljYWwtYWxpZ2 04TQGdpEiaKm90dFWhoDu dqmZ9F8CcYlqd dHI+QU87ZBOdEZ95jWBgz TLgl7oegEi6OtLcXGYmIL O2nLkaHPhms3CxZUZxG75 qrMGyo8H6EUWh jVexhENxFxEonNQ7eK4zR Jpcmwjao9abymnfZgyry5 aktc43oK20X51mMVffGOI oPSIzMCUiIHZh kVhhxh4hlX1lQp7+PGNvb TK5uMV8eK3nRtOtNlU1JZ ylV811YnIvhWSwYakmj5p pv0wgxBp3BxJs HUFltkQecColSJE1g3AlG z90G09mPBdwLFWbAVAyKW FzSYWrjZdfce4dbM3gOz5 +TB0ld7psyd48 pJ29qSZ+KQYaTVK5jYkqS YqmQSLwpQ1zCRtjTuU7TT QfGiOiwU21fZPhRRkeHt8 tfAraeKokFE2y HJOuiubdr735MaNvd5fkD GAdmKWzBUkoBSO1S40uj2 J1HERwDCVeWJE9oBI0jR9 hbGlnbjogbGVm dDsgdmVydGljYWwtYWxpZ 519MWHydVyhMsXbkVAkD7 femaZNVM5rSslswPJ+PHR jAEN6fMxcKXkv QRPttN5oHQMkH0x3ZsVqJ sW8FIseZ4XllbV9CMFslJ BlDAKeeNTNsB8kolphp5z vcjogIzAwMDAw XHu0GAa6VIPgzJmaUjPkA LJ3BhJ4EBM4tOTtpT1jiT rbvapepB3kXhf+RklOOjw vdGQ+PHRkIHN0 vVsfLDzlJVPjiT2mQELyL 6e0BuFgDjH0GCwjK0Jvcv X0HNXmmTMwVQIdvXGGuG6 wczyot5wqtwyd SbDkCBDlAYf5WLh7JNLch ZjuLxVkSQR9BsR8LFJ6kW VohG4srYowpujfrU4hKmz +TVJOOjwvdGQ+ OMUjXHZ3bWhcMDrmKKMfk T6yZSOzI5n5HdBdGuF0IM ptK1PanuS5HEPkcYDzFTM wcIBOuC9krhzb l2ijhazyShXpISOxQEx7X Mf8GFTkgFtiVmKaHRP2Do O1MBK5fBFseS2lzJfbhyh nrD1vEzk+UGF5 IYD1TC86DB44U7OvGqbee GFibGU+PHRhYmxlIHdpZH RoPScxMDAlJyBzdHlsZT0 hHv8tRGQeVNEo bGxh (more content not included)... [facility] Consent for Treatmenton 03-0 Consent for Treatment [id number] #1.00CD:127 [facility] Consent for Treatment [id number] [id number]# 1.00CD:127 [facility] Consent for Treatment [id number]#1 .00CD:127 [facility] Consultation Noteon 03-07-20 23 Consultation Note [...] has, # 60 tab(s), Refills(s) 0, Pharmacy: [facility]/pharmacy #[id number], 166.8, cm, 10/11/21 14:46:00 EST, Height/Length [...] Oral, Daily, Prophylaxis fluticasone 0.05 mg/inh Nasal [place]: 1 spray(s), Nasal, Daily, Refill(s) 0, Allergy [...] list: All Problems Palpitations / SNOMED CT 818002481 / Confirmed 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 Hypertension / SNOMED CT 4200563826 / Confirmed Anxiety / SNOMED CT 67726294 / Confirmed Lumbar disc disease / SNOMED CT 9193174411 / Confirmed Lumbar radiculopathy / SNOMED CT 478054698 / Confirmed Chronic gastritis / SNOMED CT 59841472 / Confirmed Migraines / SNOMED CT 40762736 / Confirmed Insomnia / SNOMED CT 387185298 / Confirmed Colon polyp / SNOMED CT 615409439 / Confirmed Chronic leg pain / SNOMED CT 365566095 / Confirmed Laxative abuse / SNOMED CT 795387095 / Confirmed Chronic cluster headache / SNOMED CT 778077801 / Confirmed Vitamin D deficiency / SNOMED CT 10773690 / Confirmed Hyperlipemia / SNOMED CT 31244548 / Confirmed Osteoporosis / SNOMED CT 811780512 / Confirmed 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 Resolved due to patient discharge. Resolved: Impaired skin integrity / SNOMED CT 69234241 Problem added on documentation of skin impairments. Resolved due to patient discharge. Resolved: FH: migraine headache / SNOMED CT 339756890 Resolved: FH: osteoporosis / SNOMED CT 3694610319 Objective Vital Signs 10/10/2022 13:14 EST Peripheral Pulse Rate 62 bpm Respiratory Rate 12 br/min LOW Systolic Blood Pressure 135 mmHg Diastolic Blood Pressure 68 mmHg Mean Arterial Pressure, Cuff 90 mmHg Gen (more content not included)... [facility] Comment on above: Result Comment: Elec tronically Signed By: Sophy Rush PA-C\.br\Date and Time Signed: 10/10/22 13:32 EST\.br\Electronically Co-Signed By: Derick Meza MD\.br\Date and Time Co-Signed: 10/17/22 18:24 EDT Office/Clinic Note-Nurseon 0 10-10-2022 Office/Clinic Note-Nurse [id number] .00CD:127 [facility] Physician Orderon 10-10-2022 Physician Order [id number]# 1.00CD:127 [facility] XR Spine Cervical 2 or 3 [...] mGy = na DAP = na Normal [facility] Insurance Correspondence Off iceon 09-08-2022 Insurance Correspondence Office [id number] .00CD:127 Normal [facility] INSULINon 08-28-2022 Insulin 53.4 uIU/mL Critically high 2.6-24.9 [facility] Comment on above: Performed By: #### C BC #### [facility] [address] [place] [address] Dr. Jeffry Daniels CBC AUTO DIFFon 08-26-2022 BASO # 0.1 103/ul Normal 0.0-0.1 [facility] Comment on above: Performed By: #### C BC #### [facility] [address] [place] [address] Dr. Jeffry Daniels Basophils/100 WBC (Bld) 0.9 % Normal 0.2-2.0 [facility] Comment on above: Performed By: #### C BC #### [facility] [address] [place] [address] Dr. Jeffry Daniels EO # 0.2 103/ul Normal 0.0-0.7 [facility] Comment on above: Performed By: #### C BC #### [facility] [address] [place] [address] Dr. Jeffry Daniels Eosinophils/100 WBC (Bld) 3.2 % Normal 0.9-7.0 [facility] Comment on above: Performed By: #### C BC #### [facility] [address] [place] [address] Dr. Jeffry Daniels Erythrocyte distribution width (RBC) [Ratio] 12.1 % Normal 11.0-15.0 [facility] Comment on above: Performed By: #### C BC #### [facility] [address] [place] [address] Dr. Jeffry Daniels Hematocrit (Bld) [Volume fraction] 37.0 % Normal 36.0-48.0 [facility] Comment on above: Performed By: #### C BC #### [facility] [address] [place] [address] Dr. Jeffry Daniels Hemoglobin (Bld) [Mass/Vol] 13.4 g/dL Normal 12.0-16.0 [facility] Comment on above: Performed By: #### C BC #### [facility] [address] [place] [address] Dr. Jeffry Daniels IG # 0.03 10e3/ul Normal 0.00-0.03 [facility] Comment on above: Performed By: #### C BC #### [facility] [address] [place] [address] Dr. Jeffry Daniels IG % 0.5 % Normal 0.0-0.5 [facility] Comment on above: Performed By: #### C BC #### [facility] [address] [place] [address] Dr. Jeffry Daniels LYMPH # 2.0 103/ul Normal 1.2-3.8 [facility] Comment on above: Performed By: #### C BC #### [facility] [address] [place] [address] Dr. Jeffry Daniels Lymphocytes/100 WBC (Bld) 35.4 % Normal 20.5-60.0 [facility] Comment on above: Performed By: #### C BC #### [facility] [address] [place] [address] Dr. Jeffry Daniels MANUAL DIFF REQ NO Normal [facility] Comment on above: Performed By: #### C BC #### [facility] [address] [place] [address] Dr. Jeffry Daniels MCH (RBC) [Entitic mass] 32.8 pg Normal 26.7-34.0 [facility] Comment on above: Performed By: #### C BC #### [facility] [address] [place] [address] Dr. Jeffry Daniels MCHC (RBC) [Mass/Vol] 36.2 g/dL Critically high 29.9-35.2 [facility] Comment on above: Performed By: #### C BC #### [facility] [address] [place] [address] Dr. Jeffry Daniels MCV (RBC) [Entitic vol] 90.5 fL Normal 81.0-99.0 [facility] Comment on above: Performed By: #### C BC #### [facility] [address] [place] [address] Dr. Jeffry Daniels MONO # 0.6 103/ul Normal 0.3-0.8 [facility] Comment on above: Performed By: #### C BC #### [facility] [address] [place] [address] Dr. Jeffry Daniels Monocytes/100 WBC (Bld) 10.4 % Normal 1.7-12.0 [facility] Comment on above: Performed By: #### C BC #### [facility] [address] [place] [address] Dr. Jeffry Daniels NEUT # 2.8 103/ul Normal 1.4-6.5 [facility] Comment on above: Performed By: #### C BC #### [facility] [address] [place] [address] Dr. Jeffry Daniels Neutrophils/100 WBC (Bld) 49.6 % Normal 43.0-75.0 [facility] Comment on above: Performed By: #### C BC #### [facility] [address] [place] [address] Dr. Jeffry Daniels Platelet mean volume (Bld) [Entitic vol] 8.9 fL Critically low 9.5-13.5 [facility] Comment on above: Performed By: #### C BC #### [facility] [address] [place] [address] Dr. Jeffry Daniels PLT 343 103/ul Normal 150-450 [facility] Comment on above: Performed By: #### C BC #### [facility] [address] [place] [address] Dr. Jeffry Daniels RBC 4.09 106/ul Critically low 4.20-5.40 [facility] Comment on above: Performed By: #### C BC #### [facility] [address] [place] [address] Dr. Jeffry Daniels WBC 5.7 103/ul Normal 4.0-11.0 [facility] Comment on above: Performed By: #### C BC #### [facility] [address] [place] [address] Dr. Jeffry Daniels FREE THYROXINE INDEX T7on FTI 3.64 Normal 1.30-4.50 [facility] Comment on above: Performed By: #### C BC #### [facility] [address] [place] [address] Dr. Jeffry Daniels T3U 34.0 % Normal 30.0-39.0 [facility] Comment on above: Performed By: #### C BC #### [facility] [address] [place] [address] Dr. Jeffry Daniels T4 [Mass/Vol] 10.70 ug/dL Normal 4.80-13.90 [facility] Comment on above: Performed By: #### C BC #### [facility] [address] [place] [address] Dr. Jeffry Daniels GLYCOHEMOGLOBIN A1Con 2022 ADA RECOMMENDATION SEE BELOW Normal [facility] Comment on above: Result Comment: ADA RECOMMENDED LIMIT 4.0 - 6.0 ADA THERAPEUTIC TARGET < 7.0 ACTION SUGGESTED > 7.0 Performed By: #### A 1C #### [facility] [address] [place] [address] Dr. Jeffry Daniels Glucose [Mass/Vol] 120 mg/dL Normal [facility] Comment on above: Performed By: #### A 1C #### [facility] [address] [place] [address] Dr. Jeffry Daniels HbA1c (Bld) [Mass fraction] 5.8 % Normal 4.5-6.2 [facility] Comment on above: Performed By: #### A 1C #### [facility] [address] [place] [address] Dr. Jeffry Daniels IRONon 08-26-2022 Iron [Mass/Vol] 64.0 ug/dL Normal 50.0-170.0 [facility] Comment on above: Performed By: #### I SUMMER VITAD #### [facility] [address] [place] [address] Dr. Jeffry Daniels LIPID PROFILEon 08-26-2022 CHOL-HDL RATIO NORM SEE BELOW Normal [facility] Comment on above: Result Comment: 3.3 - 4.4 LOW RISK 4.4 - 7.1 AVERAGE RISK 7.1 - 11.0 MODERATE RISK >11.0 HIGH RISK Performed By: #### T SH, CMP, T7, LIPID #### [facility] [address] [place] [address] Dr. Jeffry Daniels Cholesterol [Mass/Vol] 267 mg/dL Critically high <=200 [facility] Comment on above: Performed By: #### T SH, CMP, T7, LIPID #### [facility] [address] [place] [address] Dr. Jeffry Daniels Cholesterol in HDL [Mass/Vol] 45 mg/dL Normal 40-60 [facility] Comment on above: Performed By: #### T SH, CMP, T7, LIPID #### [facility] [address] [place] [address] Dr. Jeffry Daniels Cholesterol in LDL [Mass/Vol] 178.8 mg/dL Normal [facility] Comment on above: Performed By: #### T SH, CMP, T7, LIPID #### [facility] [address] [address] [address] Jeffry Daniels Cholesterol.total/Cho lesterol in HDL [Mass ratio] 5.9 {ratio} Normal [facility] Comment on above: Performed By: #### T SH, CMP, T7, LIPID #### [facility] [address] [address] [address] Jeffry Daniels HDL NORMAL > or = 60 mg/dl - LO W CARDIOVASCULAR RISK <40 mg/dl - HIGH CARDIOVASCULAR RISK Normal [facility] Comment on above: Performed By: #### T SH, CMP, T7, LIPID #### [facility] [address] [address] [address] Jeffry Daniels LDL CALC NORMAL SEE BELOW Normal [facility] Comment on above: Result Comment: <100 mg/dl OPTIMAL 100 - 129 mg/dl NEAR OR ABOVE OPTIMAL 130 - 159 mg/dl BORDERLINE HIGH 160 - 189 mg/dl HIGH >190 mg/dl VERY HIGH Performed By: #### T SH, CMP, T7, LIPID #### [facility] [address] [address] [address] Jeffry Daniels Triglyceride [Mass/Vol] 216 mg/dL Critically high <=150 [facility] Comment on above: Performed By: #### T SH, CMP, T7, LIPID #### [facility] [address] [address] [address] Jeffry Daniels VLDL CALC 43.2 mg/dL Normal [facility] Comment on above: Performed By: #### T SH, CMP, T7, LIPID #### [facility] [address] [address] [address] Jeffry Daniels PROF 14(COMP METB)on 023 Albumin [Mass/Vol] 3.6 g/dL Normal 3.4-5.0 [facility] Comment on above: Performed By: #### C BC #### [facility] [address] [place] [address] Dr. Jeffry Daniels Albumin/Globulin [Mass ratio] 0.9 {ratio} Normal [facility] Comment on above: Performed By: #### C BC #### [facility] [address] [place] [address] Dr. Jeffry Daniels ALP [Catalytic activity/Vol] 58 U/L Normal 46-116 [facility] Comment on above: Performed By: #### C BC #### [facility] [address] [address] [address] Jeffry Daniels ALT [Catalytic activity/Vol] 41 U/L Normal 14-59 [facility] Comment on above: Performed By: #### C BC #### [facility] [address] [address] [address] Jeffry Daniels Anion gap [Moles/Vol] 14.5 mmol/L Normal [facility] Comment on above: Performed By: #### C BC #### [facility] [address] [place] [address] Dr. Jeffry Daniels AST [Catalytic activity/Vol] 27 U/L Normal 15-37 [facility] Comment on above: Performed By: #### C BC #### [facility] [address] [address] [address] Jeffry Daniels Bilirubin [Mass/Vol] 0.2 mg/dL Normal 0.2-1.0 [facility] Comment on above: Performed By: #### C BC #### [facility] [address] [address] [address] Jeffry Daniels Calcium [Mass/Vol] 9.2 mg/dL Normal 8.5-10.1 [facility] Comment on above: Performed By: #### C BC #### [facility] [address] [address] [address] Jeffry Daniels Chloride [Moles/Vol] 103 mmol/L Normal 98-107 [facility] Comment on above: Performed By: #### C BC #### [facility] [address] [address] [address] Jeffry Daniels CO2 [Moles/Vol] 24.8 mmol/L Normal 21.0-32.0 [facility] Comment on above: Performed By: #### C BC #### [facility] [address] [address] [address] Jeffry Daniels Creatinine [Mass/Vol] 0.76 mg/dL Normal 0.55-1.02 [facility] Comment on above: Performed By: #### C BC #### [facility] [address] [address] [address] Jeffry Daniels EGFR-AF SPANISH >60 Normal >=60 [facility] Comment on above: Performed By: #### C BC #### [facility] [address] [address] [address] Jeffry Daniels EGFR-NON AF SPANISH >60 Normal >=60 [facility] Comment on above: Performed By: #### C BC #### [facility] [address] [place] [address] Dr. Jeffry Daniels Globulin (S) [Mass/Vol] 3.8 g/dL Normal [facility] Comment on above: Performed By: #### C BC #### [facility] [address] [place] [address] Dr. Jeffry Daniels Glucose [Mass/Vol] 109 mg/dL Critically high 74-106 [facility] Comment on above: Performed By: #### C BC #### [facility] [address] [place] [address] Dr. Jeffry Daniels Potassium [Moles/Vol] 4.3 mmol/L Normal 3.5-5.1 [facility] Comment on above: Performed By: #### C BC #### [facility] [address] [place] [address] Dr. Jeffry Daniels Protein [Mass/Vol] 7.4 g/dL Normal 6.4-8.2 [facility] Comment on above: Performed By: #### C BC #### [facility] [address] [place] [address] Dr. Jeffry Daniels Sodium [Moles/Vol] 138 mmol/L Normal 136-145 [facility] Comment on above: Performed By: #### C BC #### [facility] [address] [place], [place] [address] Dr. Jeffry Daniels Urea nitrogen [Mass/Vol] 22.0 mg/dL Critically high 7.0-18.0 [facility] Comment on above: Performed By: #### C BC #### [facility] [address] [place] [address] Dr. Jeffry Daniels Urea nitrogen/Creatinine [Mass ratio] 28.9 mg/mg Normal [facility] Comment on above: Performed By: #### C BC #### [facility] [address] [place] [address] Dr. Jeffry Daniels TSHon 08-26-2022 TSH 1.963 uIU/mL Normal 0.358-3.740 [facility] Comment on above: Performed By: #### C BC #### [facility] [address] [place] [address] Dr. Jeffry Daniels VITAMIN D 25 OHon 08-26-2022 VIT D 25-OH 44.6 ng/mL Normal [facility] Comment on above: Performed By: #### I SUMMER VITAD #### [facility] [address] [place] [address] Dr. Jeffry Daniels VIT D RANGES SEE BELOW Normal [facility] Comment on above: Result Comment: <20 ng/mL Vit D deficient 20 - <30 ng/mL Vit D insufficient 30 - 100 ng/mL Vit D sufficient >100 ng/mL Potential Toxicity Performed By: #### I SUMMER VITAD #### [facility] [address] [place] [address] Dr. Jeffry Daniels Coding Summary.on 08-25-2022 Coding Summary. CD:[id number] G h0bWw+PGhlYWQ+UM9OBWK oF89pbQKaiT9PX8kNLN6O ZWONLDMRKA1VQL1ogCH7O TjrV8GqjuJb NvsxlXOpJK71MUz9NXB3u LzwBZvifV3vkIXhT9g1Xt XtGN46wH90SPtuBBTxOdD 3LjZpbjsgbWFy U5alDoBsnKAoUcg+PHRhY mxlIHdpZHRoPScxMDAlJy VwpHkxHK5sRj4vRSXlMAT vbGxhcHNlOiBj q0umJQHpMBryXR0ccHvyE 7XcgDI2VXOvi5x8Bg44oH I+NGRmUJX0vWaqSQcia94 5FcTou3hlWGM3 jBKfYDhtQQK1Y71ss1H3Q BGlUEXqFVL6eNQ0lR7roT jyfrugG8MhhVCaDvH0EVP 4oSDbbN2uzGbv zoylcH0wObw+Q90VRA2DI AKBFT6IByx4X1PlYhdbdE I+NQ22PQKuPI12pFCjlKU ew3swwBv5RjCy DQKgRWZ6zCauTDthf4RxG HQdY54lcBYqh2A8OILmnZ yybBYmVqElqMJ5pP5iDYu hkxzhu0lnxhtn Efwts0ftfv64nZ41V38sQ HywLQNiDGW8SLBtQAWwyL tysa9akE2lNk6+HTxog0f ks6uljUb7SoSi BKEtzrYcyCvuWIF1a1DnF t68A6DfhWeuc8YfFpo9kt 51dUQys0Z7hHR1CNpdTWA flP5aTCvmOuD0 ZVMgQhHklO01uIWoZScnD g5coHxotMwyIK0bPBGers oaNRAmgM5mRDBuuXBspFy qXZ2rGTTbiftn q342PrQgDZO6TCIltSWjV 7JojV2uEjHzOLImSYMuB4 AjpFJjTHwaX292RBdoBoZ 9YUSmbuFoW5Mi WSUsuOouWvH7v1T8Na2Lv 2GthdzhSQM8WAuhEDZjXm WtUdXbImV4F2CpXmh2JDE hzKatYN4aZ4Sx RURshxgbceiwxPE1OFQhE LFfnW09hMYdSJbfFy0sf5 N8t842FBVuWQNhuE72Sa7 udDogMTBwdCBU iU9ltaawi3xgsackDoZtO KPxBZp9HHi5LPEnaSomMt AtKTA4BvU4MBA6aJOnfV9 zrSgipsydbJ8o Oyc+M62feG3jEDZ4HLU2j rilVEXfmxLqMO00YE28X2 RyPjwvdGFibGU+PGRpdiB quArwUH0yCwLu q0yvc8AlRKzxL5OjVHUfQ MoiBmm3BGWsBDE4wPS8wZ 8nBBLtWQxoe8G5kJP3I6H laaTjoq6dv7tf OBYfLUowB29cwAEhd2T6R PHzwHJ2KCEvpUvgMeCkcM 93Oyc+OYQniUorv5KhRfv ro0ksh4qbqZo2 AuObGSVqaeHxnBatKZV1p 9WcSq30J46tLGipLLEoBI NsEJMvEWMfbNklfl8vxD2 wIi8+PGNvbCB3 vDT9oY6wVOBhRbT7CYlnC 320JkOgmLFbDzvsr3zbn1 jrbXx0PnBoPDCuraMkgFw iZXR3a7YiRw26 U34tGAmmBAHbNIEoAYFhU PWgbMdriy4daN5lHr6+PC 3ue7nlkv80fI37eEU+PHR zVSJ7qZzrOYzh QDIwxL2gTAdjHvN1ESGuB wRwbJ38rBAhJMjoKt0klB uigDqlOX7ySPRzmumhk02 6AsFkz3rlEUTy cJQtFHfcBLK1T14an8R9B YJoRQDcTLU8oXN2bU3jfM lnbjogbGVmdDsgdmVydGl sEYwzGXrcI715 IHRvcDsnPlBhdGllbnQgT sZjBDs3E5NeVhz1MHHcuF vgWA9rgHOtWDibIk5npWr qdVlmPJ4lKWLw fbgxt010ZpGry8rrJVXis UNrTLglJVG4Z70pr5T9TU FmKZSsUFZ9vLF5mH4zdXq nbjogbGVmdDsg itLqpFmpQUcnYHazJ109N HRvcDsnPkJpcnRoIERhdG J4YH08TB12aBNud9J8oQP 2T5EzCFOqcyph bnzknLJ8WIOhGLHyiN23Q s6jvJleYl9jIGNvGMM7TQ DomKRzW9JkjH4hUqFmMJH rVVLnF6LcgJEv YHyaB498PJkeZsV6KFCch fGbH9CiDZZohNgkFoI1a7 N1Tq2XO7P6KH58FQ80jPX nm7E0nSE4P5Bf GBIaondfxrfdjHJ2XVBdX ZSjlZ42Du2ugRqeWm1bXL DpJZV9CUPoaIOoB5YcmQ9 yOiAjMDAwMDAw F7NajVDaVSviE875XDduR eQ0HVAzmsMsX1PeNHMbyS ibBeA3i3X3Zj9LJEp4WT3 0YY85xXRdl4Y2 tCT9J3KbZNFnjrxzipkmy WP4MJTdHQXidN95Pv8niE nhPh9yGKKfNBA1JNNusHO kC8CsaP8nTrDx NGQwUWPcC1AorVOrJAfoJ 604UIusCxT8HOUbriXfS8 JvYJZicOxcRxI8p0M2Mu3 YRUPyOE36ACF8 kFW0FI37FD23J6GlXwret GFibGU+PHRhYmxlIHdpZH RoPScxMDAlJyBzdHlsZT0 eBo7bFWTfLXPb aXjhdDDiYjOim2thRTWsL DrsTR7cuAxsJ3IunTR8KP Bzn1d6As82Y03hU1WvsDT +VEEexZT9aML4 wD6hVwHmJdD5MEuhT381E dJhiGQhPfzyu2tqx5nywW q7WiR1BEBtroUdfBjsFPY 0l8GtUg48E61n IHdpZHRoPSIxNSUiIHZhb Efhgv7snZ1lYy7+PGNvbC P0aHD4vH0jHiTnBzF3GHn lC050UzOqcQHp Bjexm0cqc6luvFy8GbKmF HGhfoPuxDldOZT1u8RdIc 77F2KnlYpeo1SaPrf3wj4 3oQSxb2L4qQP0 S5LtQCFxkcecxPWxaXpwR P0rCQNfpkouLCSfgN9aQV PzS5b9PqSqKnJ5XHctI0R eoiO0JBEksDXb CEwjCNJ6W39qi4L8OUOwK ZKeMYX7qRW4oL7otEjutl ogbGVmdDsgdmVydGljYWw yEJzrS191BCRk vYsfXCWirU4aLDCpyGCyc BkgLI1cNTKmitnrXzGZBF 3CCKMyLJvNEHWQUNI7E6K eNsg6LAGhjYir NP0imMBqYQxpDe5qzKqre KzrQZ6sXYBdjkgxMAIvpC 0cCYZimJFfdZxmTD2yNFB nfxylm937GeIv VEP6PUYwyYGpG2AycJ9zC pQeMIPoPHFjW0FztZVzDA npC446OBcsRoB0DIPmozQ pE4XqMGDqjQtx SqQ8a1J9Zo8dEX2cEX5oP GCoZN51CP80xGKhw7L3eA O6C8IuKDKhdsjyxyrauZE 6NVAtESJcnC44 bLYnXBxuWi3zr4D2n401R ZUaPMXqyS49Yx0fwOgkPT PjiTEYyK0uskcmq5wgvoy gIzAwMDAwMDt0 GXz0VUUsoJkqRfQbUYA4B iF1EXR3aCRdmS3deZzcol jblL9xBbv+NjAgWWVhcnM 2A0PoNjg6LTVd rBcdNI0qpHBdSCevFu1pn JegvXrqGS3kDLDcnzxgCP LrrS1nKVFgpWIzbQafEJ6 bGJPyxdalv721 AbZsASE0ZURkqETvU4Qyk H5uTcJlWOTrEJRwP3CqjA HcPNlfP001VHscVzZ8HRE rldOzZ1YvGQDs rLqdErF1f7N8Tg8FAI2lz TV1X2VjNyy0AJQnuCotXH 2arJWnSEmaVp3wwOsssUg cQQ2qPDZoibgy TAMpmN8zVLJzoCLzaCzaV J9uDKKoeachc547UmYdBG Z9OIMyjKRnP4PubM1jAyF nACOsJTJmT7Mp fPZvYZgoZ052GLgxDjT8J HOqlkFlT0BlBVWutXdjHs J6v6Q0Vr5OBWtpDT7byqS aNF0qphP0T4Cd PjwvdHI+GS71JZIqWU14c RCmdIFwy9ipeFx7UfDwUC IhCGL8pBpvCWqeh8MfHJM mY85eqYHja2Z1 BYOgrBpqxRKaIfWzvIV1p U6lFUyvnnbqq1qpizajCo zmk0qvxc94bT01P60rYGo pZHRoPSIzMCUi OTKehYyhsr5cuT8jPp6+P QPwlYW1sQJ4lA0sFmQwMa U5JYixI173PkTahVHvKew kt6lmx0vclZg6 LzGfZCObvjWcbFmbMTV3n 5KuOs97C38gPKhdJTYqHZ GuXFZyFRKqpJlqfh0jwN6 wIi8+LV7hh4na fx30iT70bLY+IPUeLCM5u CzuOTsxJGLryM5tQFbdHo W0KKXfVzNfyP99tWZeJTi gLa6mrLfzlFka TV7eATThmppso552KiLng 4luLADkjAZgQKcsLXX5A9 5jf4A3GCZlQKHzZDS0wTL 8pH8irHphyjrs bGVmdDsgdmVydGljYWwtY IdwU301HHWjhAxqAbVplG XdY4azshGUPV7hPmxzjUK +SQOlRCT7uXto LNvgKTUzxE7jUMVlM5u5Y iLgMmS7IFepS9BdgjJ1EV ChxJElDVHwlCQZkV4iqou sg6cfbhtmMvCr ZJVyKGv2HLg9PTKwrBufI xZiCWU0TgO8SKH7wWWicJ 4riSmtnemglZ4gPth+Rkl OOjwvdGQ+PHRk DBZ9kSkrCJgxNIFfyR6nS DHaK9l5TlCaGnI2VGobQ9 SwvtL6JSQpxTZiHVBwnFA DvD3brkmjd3vf ziysXoYiXECrWKq6JPw5C KJutFpgVmEfBOW8GzY9DQ L1qVBwjN0ygHuqsgsigM9 wOyc+TVJOOjwv dGQ+QLRkJJE1wMhnIRmzC NZlqG6fBSWoG2k6ShRxYr Z9IWvuN8HdsnD2DQOamCK wLZWlfEZGuO7y cuyqu1lykcahCqFgRGNyW Ju5WTb0MDRpvFmyAfFqTD S4PaK9HQS7vUKcjE0ooHa dscnyyM1eReq+ IHI5HRV5GP95NL11P2BjX jwvdGFibGU+PHRhYmxlIH dpZHRoPScxMDAlJyBzdHl bTL5vTk7tAHEm LWNv (more content not included)... Normal [facility] Insurance Correspondence Off iceon 08-24-2022 Insurance Correspondence Office [id number]# 1.00CD:127 [facility] Office/Clinic Note-Physician on 08-23-2022 Office/Clinic Note-Physician [id number]#1 .00CD:127 Normal [facility] Consent for Treatmenton 08-06 Consent for Treatment [id number] [id number]# 1.00CD:127 Normal [facility] Consultation Noteon 08-22-19 Consultation Note Patient: ELISA [...] has, # 60 tab(s), Refills(s) 0, Pharmacy: [facility]/pharmacy #[id number], 166.8, cm, 10/11/21 14:46:00 EST, Height/Length [...] Oral, Daily, Prophylaxis fluticasone 0.05 mg/inh Nasal [place]: 1 spray(s), Nasal, Daily, Refill(s) 0, Allergy [...] Problems Abdominal pain, RLQ / SNOMED CT 119268074 / Confirmed Anxiety / SNOMED CT 76160607 / Confirmed 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 BMI 31.0-31.9,adult / SNOMED CT 017843020 / Confirmed Change in bowel habits / SNOMED CT 941149692 / Confirmed Chronic cluster headache / SNOMED CT 379757210 / Confirmed Chronic gastritis / SNOMED CT 89878634 / Confirmed Chronic leg pain / SNOMED CT 864658162 / Confirmed Colon polyp / SNOMED CT 660075540 / Confirmed Diabetes / SNOMED CT 853423272 / Confirmed FHx: melanoma / SNOMED CT 5032085638 / Confirmed H/O: osteoarthritis / SNOMED CT 717145218 / Confirmed Herpes dermatitis / SNOMED 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 / Confirmed History of Helicobacter pylori infection / SNOMED CT 1288437082 / Confirmed Hyperlipemia / SNOMED CT 87733036 / Confirmed Hypertension / SNOMED CT 7868774290 / Confirmed Insomnia / SNOMED CT 896298909 / Confirmed Irregular heartbeat / SNOMED CT 093613516 / Confirmed Laxative abuse / SNOMED CT 567379882 / Confirmed Lumbar disc disease / SNOMED CT 4892954007 / Confirmed Lumbar radiculopathy / SNOMED CT 359834928 / Confirmed Migraines / SNOMED CT 04433831 / Confirmed Osteoporosis / SNOMED CT 475853788 / Confirmed Palpitations / SNOMED CT 926139948 / Confirmed Rectal bleeding / SNOMED CT 007426810 / Confirmed Vitamin D deficiency / SNOMED CT 54961087 / Confirmed Objective Vital Signs 08/22/2022 13:06 [...] bilateral lo (more content not included)... Normal [facility] Comment on above: Result Comment: Elec tronically Signed By: Sumit MURILLO, Eddi Edwards\.br\Date and Time Signed: 08/22/22 13:33 EST Legal Correspondence Officeo n 08-22-2022 Legal Correspondence Office [id number]# 1.00CD:127 Normal [facility] Office/Clinic Note-Nurseon 0 08-22-2022 Office/Clinic Note-Nurse [id number]# 1.00CD:127 Normal [facility] Office/Clinic Note-Physician on 08-22-2022 Office/Clinic Note-Physician [id number]# 1.00CD:127 Normal [facility] Patient Correspondenceon Patient Correspondence [id number]# 1.00CD:127 Normal [facility] Patient Correspondence [id number]# 1.00CD:127 Normal [facility] Patient Correspondence [id number]# 1.00CD:127 Normal [facility] Patient History Officeon Patient History Office [id number]# 1.00CD:127 Normal [facility] Coding Summary.on 08-04-2022 Coding Summary. CD:[id number] G h0bWw+PGhlYWQ+PM5LYFY oA58ynOEcxX9XF4zDFX7K MAIYESLKZI6REI5seCU7U QcrE2QeebUx TrhixSOeGR05UNa0SNJ0r HtiZLuytZ2ywQLmJ2y8Yv LoOC05oE12BVokAHVdEkU 3LjZpbjsgbWFy V5beUhCmcAYjBpy+PHRhY mxlIHdpZHRoPScxMDAlJy NcaEcbYM2bNh4fSFFmHXJ vbGxhcHNlOiBj r2gyCEOnXYhsLA2htNokI 3GsfCU5XOZek7d7Mw32hN I+QCPqBCM5aAbnEHiwi42 2RgIhm7wxWHI9 vELcCQwoRYY8R32ln8V2M GOnVKMvMPC7gYC3pK6ngE ucrzsbD6CzeUFfYxC0NUU 0aNLgdQ3pyTqo dlcwuF1dIfw+A65HSL0BY EJNCT9JBmw3G0SmKegywW I+KS15TRPtTJ04gFQlcCM pc2umjTi5PqJy IXGaKLG4aOngNKdmj3NlJ XMwD48feYIcv3O9EVHekB lnlCXnOkVucRO0bV0rANh bnrohc8uwnhzt Wosbn3pdcs60mA76S86fM NngRZDkJHE8NSSjYFUqrG iwwd5zcB9mTg1+BRkxf5o vt0ipqFc7SzVb GRObaqNejYveYWY1f8GaU k66Q5BnpObiw9ChQud8xg 19aXJnl0N3jII5WFzdWCP vmK8yUJybSsA1 RTDfSsRnsE56tSPnGKbiP k9ycWbtxRomVJ6nROMvhv bqHEYuiH4lKCXpaLCqhFg lMS4sYWYfrbuw y447CrLqKCR2UHZnbPKvI 7EbhK4zJdBaEXBmVIIcG1 XheYZmYKbqM862FXdrHuS 8PTVexqAsK4Ex LIFbvAmkXtU7k2U7Jw4Ui 3RabgoqDBR0QJlkGEYjQx LgYfHtVkU4K9NeJws7SWZ ykEsqNG7uH3Ng UPAnxvpmauhkfLG9RVPpP XHceC40hSJdIIbaHq1ku6 W1e031WHYfDTRksW54Af0 udDogMTBwdCBU dI7jrxfeu2roshbvGjXmC PCrBDn5ABc2WIGfdHzeVu PrGLF8DnL3XGY4kYBbzM5 qzCidyvxtnL6j Oyc+U39agQ6oWBL9AGZ0t pjfEIOjohCvZT62VR79J0 RyPjwvdGFibGU+PGRpdiB lvEagSM7iMoRw c1vhq7IuIKujZ7MlZPMdZ TsgNjy7IWReTYI0dJS7dI 2bVWOkPPgbn7O8oZL9V5D trvTmlt5ko2hb RWWyDCwmH51nzPSan7M8O NHmkVK8MDUgyFyyHmIaeQ 93Oyc+JTMluRauc1SaQya dn2dyq9rcmBf6 TkCuMOMkpoYyaYksBJZ7k 8DiDt34I41zHQboZCNiPF ZxIZTgHLMecWxnjf1zuR7 wIi8+PGNvbCB3 tLT0fG5gGDAkLrO4NQrtM 463CfLbvCBhOfxxp2xnu1 kahDy1CjOnJOGmqxWxvZw jWWG8z8GqNf04 P77cAYtbJVRyHHRgUMGsK NTspWwmha8anH8lZm6+PC 7ej7oxca95xI94xWX+PHR lEYV9oGpoQOcf FYSpcM0pCSsfBcW0PCYbH uPvwR67vYWjPBigNj6hvP mzqCjvVY2dTWBlujupg12 0SzIez7tsBYCu eHMfJHqkYKC6M34fn2F1R LXwOJCqFMW2zTU0cO8khE lnbjogbGVmdDsgdmVydGl wGKthMSfaT283 IHRvcDsnPlBhdGllbnQgT wUgIJw0D8LcUer5FBMjcY tzZP4quVYjTRrkMc5tjAy wvOroVM8oHKAm zofpa121XjRnk4onHGDfn IEdYJzqRBR9R89lx4G1IM WpUOQfSMH7yCN7zN1beZj nbjogbGVmdDsg zuQxzTywBKjyYRzvA650O HRvcDsnPkJpcnRoIERhdG G2NQ37WM13tRXau1U4aVM 0K7BaGTTsidol tidmcHB8OHOtZMHhkP76T m8ybCnkEm5aXWDcNOK9DZ PrkNQrS6GmeZ0gAvDbKVJ qXVYxZ6XwoXEe PJpzJ911TBmoOoM3FEObv dNlK3DiVGJygOjsJgJ0k8 A7Yp9QA9H7JE99GB46hZW vo7L3tQG8Z4Jr FRDvjusaicccyOB8MLYmM YGkhD43Yx2xaVbkAs0dSY BdYHH9GFXjeKGrI9ZyfA5 yOiAjMDAwMDAw N5VbaRInFEugW362NXdqQ bQ4WYLekoTwS6OdWYSlrN fuFdO0v0E7Mg4PTTh7FY4 6AZ25iCXhe0D0 jWC7U1YeDAOlxusnxnacn LO4OPTuTQLmiC17Vg6zkN bcXl2tVZAfYKP3NWIcxZU zT4TtsV5gEjLj MIQqVTPlN2RcnBHlFYqoH 312CVxlOyI8YELapkXzJ3 WuQKVtaVslGjH6t2G5Rm1 TTSHpRN16HKS1 rBW2OA16LY17I1OrOmhyo GFibGU+PHRhYmxlIHdpZH RoPScxMDAlJyBzdHlsZT0 fQs6cXPHlOOKt eUchrQOoUdVww9aaNUIzL NlnDC5zhXmoE2AbdYX1YI Pag3l9Tn23R80pU7KitSO +IOGyuMG3vEA3 tY2lLdDgVwU5UFaoX184T jFiiOWyDsvyl4qnq3yvyQ r9HjJ8FNBoriJskSjyQDB 4c0SkUm19Q42e IHdpZHRoPSIxNSUiIHZhb Ypctn3dyJ2pPe7+PGNvbC A8hTC6eD4lByIqZtI1FFc wT325HyTbtEKt Lyhvo5ycu1yokYb6BcYhL EEpqfArmUyoBDR5b3LzRg 88W8XuzIbku8HsNot4mf4 3iWTcr4J5aBP6 Z5TwMROmgovknWBbjIvpX Q9qMTAlbycjPXDvmA5bVZ GaW0j5OcFvFnL2WJatS2V bcpM3WVQkzGWd ERlbVMY5U66eu9U2VFWgE SUjRPP1rEF6zQ7rlXiytf ogbGVmdDsgdmVydGljYWw hJJdtM646YGVf mLrrRVYuqR1qOOBmtUZxs DhvTE0nEQOsccccYgZSOB 3NCQOsBBmVBRMOZPR8X9S rLby3SAWhqTrs GQ4qiXGkSCcxYd9tgLiej HdpWN4oHCKazcjuXTFegY 4fHGMqrLNqaTyyHP8mQRJ adzpfb018VgIb JHB3FRZvlLXcT0QnhJ7dC oEwUAIrBTZcQ3KgwZYkZB yrU207CLlzYsE4AEJxytV uE0GfUIDuzYny QtX3l1K7Oo9tJX7aCM4mI WGgGR10CM99kFWui5B4pV M5J4JnPVAsndtjshsfeUJ 6AKZgZLYskK58 iCJkJBloNe7td3I9n651O KXnJETltC52Ny5kaYbvBU RrcHPKaW4uxjgze6hipht gIzAwMDAwMDt0 NTl6ARLkuAkuKlKzCLD9R gQ3XZF3yNUnyW8zgCggdp tvrW6dHmf+NjAgWWVhcnM 9C2MeJds2BPXv lWomTD2cmUZoSKfbBf9yj HqbbCwcIM8yEVZopshqDI MbeX5lMWQxdTQguMjvUT1 mXCUelzmbj840 EqVqCUX5EPRmjHDrC9Apn C0yXeQfMNJhQEQgS1WuaS NzGSytN272ADktJjT2XMH dzhOnV1MtUMLz jDbgXqX6l5K7Ab7SOU3yj UL1H9WoVus1QZJisEhhUU 3teVWfGNfhAz4foMrpmFh qWA8vYBGxrlan LBZaiV6jAVNbbOKiaGkaK A2bHMTkkphuq282ImHjNW G1IPSqcHDtJ8EqgL8uUqC xEECyOCAcI6Tq aOMnUCoiW383MSkxGlK6V BZyuoPsT8TgRHPvcIhoIz F1b7G5Ip4HWPoiTD4vqtM yCM3yhyD6D8Tg PjwvdHI+ZQ69PHTrWI82z XMxiJAng2ftpVk9PfZsIV FeETQ7eRemEGfud8SxGWM aA50olNLqo2T4 YTWzwMbmpVLmElCjfGW1i Z7hZCelcbneq3nchqurSu fto3odmo89xM71I28vHPn pZHRoPSIzMCUi VICbsSwomj7mjQ0qIh5+P GHujUU1wHZ4cJ5tEtRgRo E7CUrzC084UwXoeNWaCsm pj8eib0jbcGh6 CoQdAHSshaYxbGtrMJK8f 4UyYp76J22zCUmzVJQvYD CjPDVtGCAzaTbrem2xgI5 wIi8+AM0sc3se pb17eH71qFG+ZQBrXTF6m NgzYAkuCFTixM7dGDoqYf G7KIRdGyGtbK61mSWjPDw cMy2fwYkrzEfk KF9lVFOuiphly661XlQgp 0xoVUXpqBDwBXisLPC6F4 3nh7L9SCJpVZWmWKT9tUZ 0zQ9oeIvhizzy bGVmdDsgdmVydGljYWwtY WctV187MYHmfOfrHqGatC SxT5yutoSIED6uPhekzWA +QNTxNNE0jAvb GJjsBFKzxO3eMWUoO7s0D fPfUbA3JQwzP9FslpI2HP YxhBDeIYWmfGGSgV1fygl md5gzionaMjYh BNYjZZs9DYk3ALIkhAlqR hSgKYZ3UoD4UPW4oSTkzK 4jjAgvmfsokZ8tQvh+Rkl OOjwvdGQ+PHRk OXW6gTilJRvbIKOayU5pK ZYtB4o7WiGdEzT6WXlfK1 TndbP3KVJmcIOnENMbqSU RmR5wjvhhj1sd xlcxHhIbZYFrILw6SQj3F YPpjXbyOdDrMJA5VgU0SR T8oSFbaF3ilXvryejzsX8 wOyc+TVJOOjwv dGQ+WJIzAPJ7vQghMCqsX RPdgC4cCOHjR6x4IcVyYj X8DYwqH1HjccZ3SZIsgCN lUEZvdXHCrG8m qoydi1hvtxkcFoXtRIZhX Ae2HLo1XYAvuIhhQsArTN U8YrW1IIK8qWLikW0glGh evzkbxC1tJoc+ ZBI2XGJ0QA69AC67C5IoN jwvdGFibGU+PHRhYmxlIH dpZHRoPScxMDAlJyBzdHl uMX7hBb9rWYTt LWNv (more content not included)... Normal [facility] Capillary Glucose POCon 07-07 Glucose [Mass/Vol] 103 mg/dL High 55-99 [facility] Comment on above: Performed By: #### 2 [id number] ####[facility] [id number] [place] [address] Consent for Procedure/Surger yon 08-01-2022 Consent for Procedure/Surgery [id number]# 1.00CD:127 Normal [facility] Consent for Treatmenton 07-07 Consent for Treatment [id number]#1 .00CD:127 Normal [facility] Discharge Instructionson Discharge Instructions [id number]# 1.00CD:127 Normal [facility] IntraOperative Documentson 1 10-02-2021 IntraOperative Documents [id number]# 1.00CD:127 Normal [facility] Main OR Intraoperative Recor don 08-01-2022 Main OR Intraoperative Record IntraOp Document Type FTPM Summary Primary Physician: Eddi Arana MD Finalized Date/Time: 08/01/22 15:35:58 Pt. Name: ELISEO ELISA Amita Delacruz/Sex: 1960 Female Med Rec #: [id number] Physician: Eddi Arana MD Financial #: [id number] Pt. Type: P Room/Bed: / Admit/Disch: 08/01/22 [...] Performed Surgeon - Primary Scrub - Primary Manager Engagement - Primary Time In 08/01/22 11:25:00 08/01/22 11:25:00 08/01/22 11:25:00 Time Out 08/01/22 11:31:00 08/01/22 11:31:00 08/01/22 11:31:00 Procedure LUMBAR EPIDURAL STEROID LUMBAR EPIDURAL STEROID LUMBAR EPIDURAL STEROID INJECTION(.) INJECTION(.) INJECTION(.) Comments Luzma-student Last Modified By: Ria Martinez RN 08/01/22 Ria Martinez RN 08/01/22 Ria Martinez RN 08/01/22 15:34:03 15:34:03 15:34:03 Entry 4 Case Attendee Shashi Ambrocio Role Performed Early Childhood Special Educator Time In 08/01/22 11:25:00 Time Out 08/01/22 [...] and tissue Entry 1 Skin Integrity Intact, Kermit, Warm, and Skin Abnormality No Dry Outcomes [...] from signs (more content not included)... Normal [facility] Main OR Preoperative Recordo n 08-01-2022 Main OR Preoperative Record Holding Area Document Type FTPM Summary Primary Physician: Eddi Arana MD Finalized Date/Time: 08/01/22 10:43:25 Pt. Name: ELISA LEUNG D.O.B./Sex: 1960 Female Med Rec #: [id number] Physician: Eddi Arana MD Financial #: [id number] Pt. Type: P Room/Bed: / Admit/Disch: 08/01/22 [...] By: Coco Mendez RN 08/01/22 10:43 Normal [facility] Operative Reporton 2 Operative Report Patient: ELISA [...] Arterial Pressure, Monitered 106 mmHg . Normal [facility] Comment on above: Result Comment: Elec tronically Signed By: Sumit MURILLO, Eddi Edwards\.br\Date and Time Signed: 08/01/22 11:33 EST Insurance Correspondence Off iceon 07-24-2022 Insurance Correspondence Office [id number]#2 .00CD:127 Normal [facility] Patient Correspondenceon Patient Correspondence [id number]#1. 00CD:127 Normal [facility] Coding Summary.on 07-14-2022 Coding Summary. CD:[id number] G h0bWw+PGhlYWQ+ZW0HJRI jK80niOJqoO4II8aAEN1U ENJNANZDBU4LIR5huZJ9E MgeZ3WehkCc SozmmMTqJX03LPz0ACJ5z GhxTKfgkR0viZKsK8t3Bp HePN69jE95CLieOQImSlM 3LjZpbjsgbWFy X8cmYiCksADdEqk+PHRhY mxlIHdpZHRoPScxMDAlJy NskEqwOC8tCp4kYQMmABH vbGxhcHNlOiBj r4dcIOFuFCowEG5qkYmiT 4OreVS4GQDhn3w1Pb89gV I+HVQbLVR7oDqtDMelo68 3QuOpy3frZOC6 hPPmHCbvTIR3N65nq4H2Y BXzLAQiCDH5lAC0vE8adO jmewrnZ4UupKDcPaI0DTX 3aWLsaB0oxSqp htleaM2tVts+Y21UFQ0QW KSFFY3JTcp4P6GiPhacuZ I+XF08PELrWO33lYOksUX vv2ommVv8NiAh UTTyEDT5sXfbQGebd9XcV CQyM33dwPIao3E4XWFadQ keeWTcDqYaqAW7mT4nJLo vlvrrx6hsofqo Eijky2mzxl67fZ87K77aS JnjCLEiAME4OFNcLLTnwT uwee3yyH1oRc7+BXpco2e xm7ljgSv0LlOz WLAhsbIniOwyIKC9f4NwA h06E8LhjTwze9FeUpe5lb 83vOVjw7V7zEI4SSojAYJ yzD1gNQkxMiH3 ZVXcXtMecL81eLUgOSukI b7siVmiqRouFY5lNKOonl ynUTBwiQ5qNPSjqSUcaIz oDJ4rDNNfsepm n737DtPuOAI1ILQqdQXeS 6WycK2pJjBnKOTfXZRtY6 MktUApBMvhO192GAukMjB 8KYHyxiBsR0Bk FREiwJirYbW2u2H1Of7Xm 8KdbskcRQU0UQreDKSeMv L4TuRjTkN4X2HoLpi4WDA vtAzxOM1nL8Wy QDCmjpqgtaydlQO7CFFlN MPvgO54eOPdCKmkCx9vt4 O7y806LWHbYAKniW88Wt1 udDogMTBwdCBU wH7fdslpy8ypqmbfRmQmI ZWdVUq6XPe5AVDedXpdWo BlVQX0IcM5CNW4tGOmsQ1 ezZswtfgbqU8c Oyc+I48dgP1mJOG8FNN4v kibORYlazGmPP80OW59W9 RyPjwvdGFibGU+PGRpdiB pcOqhIZ4fOfJw z7xlh8RlBGhnJ0ZmQBYlF AnoIox8VHBlBNO8rGB8kO 4lZMWyNSmux4H4iOG3C0E ihwVbfn5ob1rk MEUdWDlsY18oaUSge8H8Z QUslZQ0GLRxdOvqDrYwqJ 93Oyc+YYYsrKfns1ShNkc cs1qvt0sejZr7 XtAbITIcpsBwmUjqVTT3t 4ZwQh45M51sZIorMDGnCN TqEMVpLIXorSeeie0yvX4 wIi8+PGNvbCB3 eXQ8gY1fXXSbUxL2CEplN 816LrMukQEqBcdru9egq2 imqVp8XfXqKYJqcjYhgXe aHTV8w6WqSs65 V24wWBygRIWuCNEpULLzG TOswWmmfz6paH0yZv3+PC 4cl2whow63yM94wIM+PHR xSTN2eQaxPTwq QIKjrA2pJLmkCoQ4SHAaU xOukC92fKGsUVbxLn7vsF meiSnxPY0iJTJeunzdp79 4LbWoo8ltUNQr lZPbPHpsRMK1L95ko5H0W JMwWIRvQPB2oIA8sR9brX lnbjogbGVmdDsgdmVydGl cSWyjBJikM549 IHRvcDsnPlBhdGllbnQgT iEnPPg7W2MwUhy0IFRgjO qxIU8kdPDuWWquGf4zqMe qwGzgNT5tXSHj oyljs274HuImy6vqLXMjo WWyITbeRKV4U33vh8P8BF RbZXElTNV1bAJ1wO8cuVs nbjogbGVmdDsg plTtvBftUWdiLBdnN304N HRvcDsnPkJpcnRoIERhdG S0ER99JC36xBOgf7E9aWZ 5C7KjNCXopfrr znnlxJX9CENdSPKeqI14Y u5auOvdTg4qFTYiKUS8YD MymGArG7WfqO2dKiJzAYH aDTGbZ9BnxQEl ZWemM350CTxfJmA1NCRwi sFpC3MoUIBddMlsPdU4k4 R8Ct2QJ4Z7ZV76EC78sFC tl5U0vYO7V1Ht WSUjzvxxrmfgxLH1MTYnJ UTyyO03Ta5ilFidUj9sHI KjQKR9YBMjpPNwC0IzzE7 yOiAjMDAwMDAw S2XzsONwHGebB150AJaiX tN5HBKmabPvL9VyJNVxbT rgPtK6c7P1Fr3QCUc7UD7 4MB57nIIye9K7 fYP1G7NjBZSwjqjiwusza IF3MQEgGARtlS68Fc1lzD vrWi8wCFQiRQI0ZYWhjPP bR7YgfF5iPnUj NIUyATVhN0SfiHIhEDbjO 136GMtnCpF6OMSuoyNhQ1 AkVQMfgZmsIqG5y5D5Vz1 SYVWkWV45WCD1 kJO3BC81EF98A6BwEispe GFibGU+PHRhYmxlIHdpZH RoPScxMDAlJyBzdHlsZT0 oNp1jNZHoGAXt zFgmkNCkIcCet8kdKSJqO ViuDU0cnQunU5IrfDT2TV Ztb4o0Cy96C16uJ5NdrLA +QAYcdVP0uVL6 jV5vJvKeSlP2BBuvD617B fCynHJsGdqqa6flc6ambQ f6TgA0OWOkveEdxWxpVLS 0p9TeBy00V98d IHdpZHRoPSIxNSUiIHZhb Cwtdt9kmL9aVx6+PGNvbC E6zCE3wP9nYjFeCiG9MNc uW983JuNtuQOk Jtxhf4sxi9dstPo7LwBqH AZukyEnyZuzUFU1k2RxDs 37F3TkyDznu0QjOiu1qf2 3iXRtg1X7cMF7 Z7ZpNPAgkrpilYQlvBrbR X5hHJSwolfmJJVrcN3hGC WuL9p9PrOxExA7LQajH8T hbzX0KVGkxNNp KWtxQXH5B12ls5Z5FUAbL VDzGNH2mIJ0dB4fvElgoa ogbGVmdDsgdmVydGljYWw sYMbpO227EISb sIgrYXXiuH7sAVGmtEYue TbcTF9uIMExvylhToVVBK 0XYXVqDCvNEEDOEWF5J3V dExq2SBKokAnw ZN9tiKFeFVkrDs4dqVugy YjhME9eJPWgvmuwITWinJ 7tUEVgfSFzrEisJH0mEGT djvkoi660YpPe KIG3XWVkxGCyL4KpfI1eQ zGySBLnLKArV5EqkZFrDP tlR865AOapAqZ8IGRqjcH pM7FrHICkeHvf YuZ2n0Q6Tk4aSB7eDO7tM MClGS66AY95aXZwo2H8mT H3C8WoMEKxtwnkfkdamCV 8BZFmNNWmuQ97 vDSfBGwvBi1ix9M8d664E MLsOTHtrG15Tc5pzJraJZ ZgmZYInS0fcnony6xpibd gIzAwMDAwMDt0 JZj4PJDqiDxqDhZbEIY4R lD9XIY3vAVooS6beUtuyc rdaA6eFpk+NjAgWWVhcnM 0M0QdOle3JEGy iRjbHL1vjBBxFScyLg5ul SvbwVrzFN3vBMLzexcmIL XjcG5nTILnrDUulLkgAD6 qUQWhzbtmn752 RdAeHDD9HASdaKObN1Huh Q1xAnAcBKUsMSLpU5NktZ NtGBqhZ305KOvmQuH4KEW aqxRxM0CaRVRf tSwpDjM1q5R3Oy5EWQ2gy LZ9P1DbVnb2JLBpmIcbDS 6ksCFuWCinLt7hzTphwOq gNF3lOSBmiqih JKBzeX3mPELhwDLszBwhH W2oCTRfqgfmz425HhXkUI Q9UJGjdMEtO6GpdO2cQbC wVNMrSVByV5Fe fQJvDViyU261URsyIzA6H LXhnhGuF7YwPZPloVbfHy J9i3W6Zx5KTSrdHP3jfmX lEO1rdnK1O1Ej PjwvdHI+WC90EEByVE91c RKgbQOut7ffxGb0QjZuZM NdSYF1hUbcDEimr7KoGRM rN14oqIFeh3X5 GYGdgNppyETqJrLjmZC6e Y4dTYlbfoxwt9bstlinNh hyh2pcod27vC80Q48oPLh pZHRoPSIzMCUi JCBxdBvabv5geT9sRx0+P PImjVS4bYD3mF4dNhJoTv X8ZNoyR240IiNgxSJiLkx tb6gzc2lvmXb4 ZkWsADXhzqLqvBetKEH2n 5DzOu60R53sRTesAJIlHB ZeEIVaFBHngCtptu0mnJ7 wIi8+SR0yk1ab cw79eW06dMX+JNFvJRI3t BwaRHmgKLBfvY2dQMbrIu A4JRRjHqDkmR21cOWbDTz aIv3zeOzqvLme YR5bAJIfwqbna502VvWzc 5gxFNBblTZzBKesXZZ4V8 4yd2S8KLWvTGIvPCP3zYB 0dI3zuGmkcgyj bGVmdDsgdmVydGljYWwtY YtcH449LURggKbhJwHolV VuT5ejuuDBJL8vQvvivLK +WWGyHVD9kYpz BLnaODPdnH2wBIJuF9u6K kAiMxR5EJcqN6FwjfY3UF IliGVnUYMqxGHDhG6bywa bq1omsyjiDeYw FALxPQc9YUf9ABYdtZfnF kLtJZC4XxE0PQR2vHHazK 0mnCjdpglowF1mWus+Rkl OOjwvdGQ+PHRk DCG2cFarHHlbVGLehP5mW JErI7e3FxMkJuG0PLmpX3 XfdtR0DIPewCUpJQSlrIR CyX4dmenrb8wk ocnfUsAsNZQhCIh5ECs2S FCilKytHxQmFRU8VfG2JC C4kTBciN5ewSmkfhxqjF7 wOyc+TVJOOjwv dGQ+DYEtOWC3oWpxYSnmU BDbjA6wNCKqX1o6IyXjYb C3ISqkR3YespD5PXWvkUA vBBMltNQDnP1y mfofb1zmvgajZuIwFZDtM Mq9GYt1HYHbuSbgHuJtBB U0MkJ5UGP6iVWuwO0bfAy whiaxsO7eTvc+ OCR5TBA7XJ15NA30F6BcZ jwvdGFibGU+PHRhYmxlIH dpZHRoPScxMDAlJyBzdHl jDK6jGh2tAEWa LWNv (more content not included)... Normal [facility] Consent for Treatmenton Consent for Treatment 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 BMI 31.0-31.9,adult / SNOMED CT 442607099 / Confirmed Change in bowel habits / SNOMED CT 822156535 / Confirmed Chronic cluster headache / SNOMED CT 035238963 / Confirmed Chronic gastritis / SNOMED CT 91182762 / Confirmed Chronic leg pain / SNOMED CT 746500509 / Confirmed Colon polyp / SNOMED CT 963029023 / Confirmed Diabetes / SNOMED CT 070557215 / Confirmed FHx: melanoma / SNOMED CT 7326896932 / Confirmed H/O: osteoarthritis / SNOMED CT 634751069 / Confirmed Herpes dermatitis / SNOMED 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 / Confirmed History of Helicobacter pylori infection / SNOMED CT 1184608374 / Confirmed Hyperlipemia / SNOMED CT 50524545 / Confirmed Hypertension / SNOMED CT 9561542114 / Confirmed Insomnia / SNOMED CT 197980606 / Confirmed Irregular heartbeat / SNOMED CT 701912693 / Confirmed Laxative abuse / SNOMED CT 509897384 / Confirmed Lumbar disc disease / SNOMED CT 6367307834 / Confirmed Lumbar radiculopathy / SNOMED CT 635774287 / Confirmed Migraines / SNOMED CT 03017505 / Confirmed Osteoporosis / SNOMED CT 428966399 / Confirmed Palpitations / SNOMED CT 270938112 / Confirmed Rectal bleeding / SNOMED CT 962452585 / Confirmed Vitamin D deficiency / SNOMED CT 73580817 / Confirmed Objective Vital Signs 07/11/2022 13:57 [...] negative bilaterally. (more content not included)... Normal [facility] Comment on above: Result Comment: Elec tronically Signed By: Sumit MURILLO, Eddi Edwards\.br\Date and Time Signed: 07/11/22 14:43 EST HIPAA Forms Officeon 022 HIPAA Forms Office [id number]# 1.00CD:127 [facility] Legal Correspondence Officeo n 07-11-2022 Legal Correspondence Office [id number]# 1.00CD:127 [facility] Legal Correspondence Office [id number]# 1.00CD:127 Normal [facility] Office/Clinic Note-Physician on 07-11-2022 Office/Clinic Note-Physician [id number]# 1.00CD:127 Normal [facility] Patient Correspondenceon Patient Correspondence [id number]# 1.00CD:127 Normal [facility] Patient Correspondence [id number]# 1.00CD:127 Normal [facility] Patient Correspondence [id number]# 1.00CD:127 Normal [facility] Patient Correspondence [id number]# 1.00CD:127 Normal [facility] Patient Correspondence [id number]# 1.00CD:127 [facility] Patient History Officeon Patient History Office [id number]# 1.00CD:127 [facility] Patient History Office [id number]# 1.00CD:127 [facility] PAP ACOG PANEL 2: 30 to 65on 07-06-2022 . . [facility] Comment on above: Result Comment: Perf ormed at: WB Performed By: #### C BC #### [facility] [address] [place] [address] Dr. Jeffry Daniels Age Gdln ACOG Testing 30-65 [facility] Comment on above: Performed By: #### C BC #### [facility] [address] [place] [address] Dr. Jeffry Daniels DIAGNOSIS: Comment [facility] Comment on above: Result Comment: NEGA TIVE FOR INTRAEPITHELIAL LESION OR MALIGNANCY. Performed at: WB Performed By: #### C BC #### [facility] [address] [address] [address] Jeffry Daniels HPV Aptima Negative Normal Negative [facility] Comment on above: Result Comment: This nucleic acid amplification test detects fourteen high-risk HPV types (16,18,31,33,35,39,45,51,52,56,58,59,66,68) without differentiation. Performed at: =G Performed By: #### C BC #### [facility] [address] [address] [address] Jeffry Daniels HPV Genotype Reflex Comment Normal [facility] Comment on above: Result Comment: Crit eria not met, HPV Genotype not performed. Performed at: WB Performed By: #### C BC #### [facility] [address] [address] [address] Jeffry Daniels Methodology: Comment Normal [facility] Comment on above: Result Comment: This liquid based ThinPrep(R) pap test was screened with the use of an image guided system. Performed at: WB Performed By: #### C BC #### [facility] [address] [address] [address] Jeffry Daniels Note: Comment Normal [facility] Comment on above: Result Comment: The [...] WB Performed By: #### C BC #### [facility] [address] [address] [address] Jeffry Daniels Performed by: Comment Normal [facility] Comment on above: Result Comment: Andra Alvarez, Flight Dispatcher (ASCP) Performed at: WB Performed By: #### C BC #### [facility] [address] [address] [address] Jeffry Daniels Specimen adequacy: Comment Normal [facility] Comment on above: Result Comment: Sati sfactory for evaluation. No endocervical cells are present. This is consistent with a history of hysterectomy. Performed at: WB Performed By: #### C BC #### [facility] [address] [address] [address] Jeffry Daniels MG MAMM SCREEN 3D DECLAN CADon 06-27-2022 MG MAMM SCREEN 3D DECLAN CAD Patient: ELISA LEUNG Exam Date: 06/27/2022 : 1960 Gender:F Ordering : DR EMI FRIEDMAN . Admission #: [id number] Family : DR YASMINE DAMON . Order #: [id number] CLICK HERE TO VIEW EXAM RADIOLOGY REPORT [...] Treatments None Family Cancers None LOCATION: [facility] BREAST COMPOSITION: Almost entirely fatty. FINDINGS: [...] Tompkins M.D. on 06/28/2022 at 12:18 Normal [facility] Coding Summary.on 06-26-2022 Coding Summary. CD:[id number] G h0bWw+PGhlYWQ+QY1WSKU uH55erJYkoN5NP3sOYI5X KVVNSBJMSQ0TFX6wuAK0E OvpN4JathTu TbuovGVrQP23TSd2JAS2q MxmSMsurX6nuSOaX0s9Wb XuVF67mS36TKvyNKErLuM 3LjZpbjsgbWFy J8byQyDpwKYmRqa+PHRhY mxlIHdpZHRoPScxMDAlJy EbjKrrLZ8bEn2xPTEiRYL vbGxhcHNlOiBj w3brWRArOLhgIG5cmZjiL 3MkwHH3YKEja4i8Fz56cL I+UAGgEQS5aBosRScch01 8XbWhg9huBKT6 pWZbUFntZFA0L15ye2A6M OEtFHJoXLL6dMZ9fO5xdS wotzggG8AvaFKuRqD5GUX 1sHFegT0fpJfo flvrtC8wCyk+Y39HEI4SQ ARRFV0VMjd4E0GgFqebdS I+LX88PCIaUX88iSUcxUX ac0cxgWj6MwBy VIKgKRS5kXbhLAmsq2KjP CPlH34yjXFog5A2ELQhmZ gvdFBcNuBvlHY9yE7eEXj zgasyg9clundb Bhflm1uifh96bP19Y78cM EjlGMQeEEI1NIOvDSLlmG hqrm9kaB0yQu5+DScyq2w dt3jeyYy0LxQc LEDcptBlsFekRPN6t5NkD u32V2IdzJjnr9VfLmy4in 21zTOxt2Z1aLY0CKjgANL weN5lCNvuKeT1 ZWOiZwYigV20xQBgHEecM o6qaUhddMxyLL1fZRVowt zvFDImuB8sAYTxzLAawNu jRM9bIQRddrlt a148LlSjBCN4PXMvvJSuZ 8IygH4sAbJzJPUjRFGuG7 ByvATwTRjfO172YRrsBuY 6XNEmtmUaG9Sd ALMyqUqjDaZ5x5E6Cn0Xa 8YssxdjRBK8HNrrJAPvXc DyPhZqUcH2F1IkEfj9CIR eoQblVI7fQ5Yb VYJnrboprczmzZH9QIDzB EMdfF79hFKgEQujIa2gk2 J0i757IFPuYSNxdF67Cv7 udDogMTBwdCBU eI7otivoi6uaaudiEkKfI VHmMAq5DWm5QFCtnYanRy OsZBR4DoK4XHB9vTXpzD9 hgHymhotnoG9q Oyc+K02ftU7tUWN7SOP9l yleNGEzziRlKU06DH61F1 RyPjwvdGFibGU+PGRpdiB wgRgoKQ6iWfWc j5uae4GiYRwbH1OkPTQbM FlwQcg2EOSxDTZ1sOF2wO 3pHIIvWVxez3M8xPJ5B7V ovsAmeo4lt5op BATnNNxlS82riROgc1U2W HXshQI5SKSvaVdoXnZgoH 93Oyc+KDMtzKstl8XzSif ez0cov1tmaFu7 UnDrTPMblxQqwNxoUGI6x 1RxDw61Z63dPBczJXYcFK AaJKMqVYKgrKxckk0ubV4 wIi8+PGNvbCB3 kRY9iR8mOBTwQaI1RDtiU 902FgXxrGDkXlvdp4oft1 jszAy3DwIpCPSahcWaeAh eYPN6i6PkQv33 A32fLOdoYROqPNTqWYReD RCefRzxyd3mhL2wRe9+PC 4cr7dvcq78tV56eIQ+PHR dZPU6eCgfGKtn VGOecG1oTTwkEzO4YNIuL aDffU70pTMmNFukWd5vaY iwhDwoTB6qRCOguakuv65 0IeDgo2rmWHOg hXNtBFlvKRI9K72uj2R8X VWoZBSrXHN6oJY4aI7scF lnbjogbGVmdDsgdmVydGl jIFnvEBbiM234 IHRvcDsnPlBhdGllbnQgT sOhTWu0Y1JaIig3TEOizA wkRE7cmYAjGIozRo8fqCo ppPcrOV2eOSNx ehfzc043InZwj8mmYVAsf VFnWGldEHP6S75tm2A1VI PlBWQsKCV7aAH0lN8mlHe nbjogbGVmdDsg vgSuzVujUPgcOWahH049Y HRvcDsnPkJpcnRoIERhdG M2PX27VP64pYMrf6Z9eMD 1W6KcNZLzskme qboyjNM5ZONaCYJxoZ91Q d0xtDkhYx8rGMKyUZG1IW NqlDRwL0FesG8eMnIxXYF sIBKtS2NnxOEd EKxcM502SGxnCaN0FSJmp xMoS8ByGQBxdAvdIlR4s1 B8Bf0LU8B9FL88KB77jMT xe4P9hOU8B4Rz DYXnbppxpiyvwYX7BSTxC DOfwO67Ct4jdPqfEj7lFA HlAUN1HXZmzZPsC6JanK5 yOiAjMDAwMDAw O2FbwFMgRTnwR218ROywF qY3ECUvnmIuD7PiIYXqxA neZvO6c4Y0Ts5NHAt7FC4 0AR01sJTkh7A8 aJN9G2UfNGFnxadppjizp KZ6NVUaMOYukI85Xa4heC avGe6iENAiNMJ7RBAgcAI vR7VcvD9aMxEr NRWoPVLkF5FhkKSzJMqiE 345TZaxYbS5DSZxwdWnA0 XpABWjiOgcUyV1t6K3Ew3 AZINgHI53RLE2 lVW4NR02HH83Q0VuPxevo GFibGU+PHRhYmxlIHdpZH RoPScxMDAlJyBzdHlsZT0 lXm2dBHKjCDPq qHjveACyEhTea8hnQPBkJ JdxZA6tzGgcL5GsxOB7PJ Ynj2x0Vf53E91cE4BsnMQ +BCFibLB8hOT2 fI6hNkMpZpA3PTyfH776E tXxqFXvWczjx8eys6hzjK t5QhJ2DKIntnUppYjgSVU 3a6SbJb46Y00w IHdpZHRoPSIxNSUiIHZhb Esumo3twA3xUg7+PGNvbC I9sIN5cN5qHkCkBuF5LLm fG564IoSwxWFq Xypij8kbb4ajgPz1ZbTiQ GEidpSxtQtcBLW3b7GgNr 40T6OcpWrwm0PdQwr4kj8 7gHXfe4Y3sKO1 T5SyAIMzgyuylJHtdAqzP M3kZZSlqazfIFTcnJ6bBA OoM3y5WeMmYvA9ZHnpE8H bhyA5MXFvzCNw PZhnDBF2Q32vk0A9FRUeA BIiLCA9mCK6wH2ylMgsfc ogbGVmdDsgdmVydGljYWw uXSqyG727WAPi xEotJWDzpF8kNSEqpIAio HvmDS8fXDZgnwoiImTXEG 3TYYJjPIdAVUOMQFV9Q2Y bKio6VYZnwIxy MO9uiTJeAPtqMg7avTtqt JtpWH1eBTWddjylYFQuuX 5wBOCdfEWwiSndDP8bPQV uemnql453SfSx UJC4JGAagBLcW6CuoP9hF sAkMQDaTCZeY9BoaBAkKR biA420RCgoLqP7JNMrweR nC0PdWPFxxOgl HfP5e7I8Jp2pLM2yBU5xF CIeJQ09RA66rMIzs1A5cZ I4T7CcHFAwctxpenjneFP 0KWRuSKVgnG96 iBWaGOevZr0bz9Z0a063C MYlXEXnzF61Rf1hxLrfXE HzrQTGcI8xgihnf4ywflj gIzAwMDAwMDt0 HVw5IKHxgWqmQhTkFED7V kN1JOX1eDQohX9xeGmnpw qbbQ4dUwq+NjAgWWVhcnM 5K7GlEnz5DJZd pKrrYW4apIRuZZzaRn6cl CfvlVtlSG5cKOLejbezIB MjuO8aVATbcIFigClaEZ3 pYYJkgkiwg928 LdLrBNZ3QWCvpAQqM5Kwh D0pAsPsRMEhRHGbE9MrpX ZxTNceV151ERauOhW9MSW uzbFzI9UpWNUn yCpaIkB8h2U1Zj6CQH0er TR9W3UuCvk4VTVpmHbtFB 4bfDBqJVufKn9zjUwabJf qPR3jAOLwlhjx UQGesZ1yYIOzdFKgbUkvQ T3hSAJkcgbkh852OnVjRI I4SZZnqGTyB1OxmN4rOnG wXYZiMBDbD5Rk vFWmNEusA313XLxoRsR8A BCteoQfT7WiKBKpzBkvBe L9v4M8Tb6TpGEhPAHgVJ4 9SU58DT14L2Vp PjwvdGFibGU+PHRhYmxlI HdpZHRoPScxMDAlJyBzdH ayZC0kMi9hYHMoTTMmbJy tuNVgRxTnx4rw QEFpJEufMJ7kcHazZ3Jxo PR9AONvv0x1Hl02D74qZ3 JvdXA+ZSQqpKT6wLP7fF9 bXlWmEzK7XUvt Q853JyPobCFeNjelj6zes 2hxdCk9PwUzEWCjjjYrvL gbSDQ4h8ZaEx18U56eWFh pZHRoPSIyMCUi BOIdsGuvid2syS4iXu2+P IUhwBW1jAR8jX0aHgSiEp P6YVrcK511FpXkoGJpFzn mW14qF0LsdEP+ CPQcRrs5VQVuhJlxGA6xa LYdQJmmYk6kNOC3UiMuVk QrJTijK8QqIYGorcarpif qtPT3HTXpKTYc eV34Uo6okQrcMd6nZXBmJ CN3KJUjfHLzT8WctN2dJd EgZGEvVZZaO7HxxLElWPu bY453HKkqXbF1 MKDoeiObR3GiFUUqlByuH qI3t3Q4Ny8TcUvqaPJcAU 5sTbUdMNy3I0UnPid9UWX fkFvuCF1bpALz LNveDw0buXsxoGumTI7cQ XHsihbpl430IdTgv2laWW HklKVxJMduLSP2V73dg8O 7FMTiXSCqXKH5 pPW1lV0kuHrlblvdyGJcu DsgdmVydGljYWwtYWxpZ2 62CRSarWqqQfCLCly8J0L wBjr4YXDcsZcf MD8mqZPaUEnjDt1ncFwju BthPE9wCWHygejsi057Ol Nmr7rhFFOffPEkYVupTPL 1U29qz5D6XTRe JXBiQTV9uXW3jQ3phLgkl jogbGVmdDsgdmVydGljYW bhZHnlE232LZNldPmbAz1 COvs7L8QdYvk9 WQIauXbtYI7jsGOgHOrqH u1hgHkwlPumBH3qOXFmtw edk866CgGbo2evIFBlyRB hZOydSJY1Y83n g1Q9RGAhBSWiKPC3dSU8f M3daItruhwhjWWuiHwkta NrdJwgTXneFWdlI736NNP vcDsnPlBheWVy OjwvdGQ+UW43wp62B2DbS myaYyn9BRXbPLJ1jAP1uU 5fZNOsYWvfl2D8sZJ0O3Y vqeKbud9yq7yj YXBz (more content not included)... Normal [facility] Coding Summary.on 06-25-2022 Coding Summary. CD:[id number] G h0bWw+PGhlYWQ+EC3AJQY zV61uwZRpgF2TG2nKJV0E FOWYHBQSWS3TJB0chLQ9P SknW0FaoyWi BwqjiNWjUH22KCx5FXT3f GpnDNhpxA9wtIMdM0j5Mi OzEZ35nN33JUspQXOhAhV 3LjZpbjsgbWFy Y7usUlRvbSHsQzs+PHRhY mxlIHdpZHRoPScxMDAlJy YsaZmeDZ9jAs1rGSSvMNG vbGxhcHNlOiBj i3huWHVgXEkgLX6luTrgH 2GvvMR6QQKod4p6Ve60uK I+HEFxCGQ0cVmxRQtbh19 0FlXho4adQKS7 wDNbXXneYEO1B87rh3E7S KGvHDVmBDB4fUL9mC5gmT kfqakkA1PemRQeLxT7OIO 8zECokA8kpXpg tgxmaD8iNqt+G31JDE9QO PZEAF8UJoh5G1FzWdjtxQ I+RU54ZCJvPV50dYPqtUH hb8ftvFb5SgAf UALnQHZ6zCdaGZhlq0XbP HWlC53qcTNud0G4LFSgiH ljjZRhQpRnsYQ3pS9lTHe njwgmu7cuycsv Safzz5ahjm61aQ94S53vB GfuVGGyIXJ9XTPkHGBrxP rthc6xuR5rNp4+EMxvr6a gb6fxmHc5YbIk TJTxedZzcZynMNA7e4FzT f82A3RytIbhc7ZxIgw8av 11gQPoe7X2jTA0HFmoTMC cnF4uKYreZnB2 TGYfPtHhlM71vZIeOSmwF d4qyIwgdWbbRX8eVBFwvw cjZNVnsY8hEWRwfVXavKn vQZ4rINEpqeey h158OdQfNVK1FZPsgZKxL 4DyaS9cKqXbPTJtECBoZ6 VnvSYxHNesP657CHgwMzT 3HFIyevEeA5Hf HVJitAmjHyE1e9O9Eo5Eu 7AsvwdcCNV2EKfqAUKcOz PmGrLhPnH0N3FdYiq0UJN ncZtwHF3tQ0Fb BGEwtskvtuuzdDZ0KELjM OGjdG86nIBfHEiiGq3zk3 Q1r137SMIuHGZuhJ10Mm0 udDogMTBwdCBU zF3obogkj0tzukysJxFvJ UJwHAv9LVz1GDDqzWowCn FgWRQ1ZjL4CKQ3jBZknO5 etSkjnfvnmF7m Oyc+C33trE7xCJL6ACC3v hplLQSeznKcEY53DH25X1 RyPjwvdGFibGU+PGRpdiB hdCcdIC9aWvQx o1coi0XsVSxiH6KjDONlI IhzMqv6MFHvWEA8sDE2lN 5hQMBvTGmcz4A3cRN3R7N mhbZgxg6bo9fh QANpBKegK10ncXXyc6M8K LVinEE9ZCBitPjyKmZheG 93Oyc+PFYjjBulv2TlIyo ez0pnp6tsyVp8 FwDcUQCrhiIlgBniQEA9i 9ZzHg42Z32iDEkkUBGwZF VzVAUwFNZzeZiijs7nkT2 wIi8+PGNvbCB3 tKN7bD0tBHSkRzF9LTuoD 832LpSlqPJgAsjpa6edx1 nabBg7AgQcOPCkezTdeFa aVSW6d1RtMq18 G72pKFpmNQWpJTIqWGRiO FUxkAykxd0mxH0sZs5+PC 3jb0hngj00yD11kFP+PHR pNCK7eKxcXAfj FZHuuM5xMGvpHpQ6DVQmT lMwdQ70iEMiVSezEa5qsN ajxCsyRG5fZONznoxeh31 2GmPdl7raEXOe iDEuVOcfUWZ3A71sm2J4Y NXtSYPeTDX4zVI7pJ4tlQ lnbjogbGVmdDsgdmVydGl mWWqvOWrgU055 IHRvcDsnPlBhdGllbnQgT fGoKRw5S2MjPbb4MLBgkR ulZJ0urWSvUSwbSw7qiUw hrTrjOY0mZZFa kyokd558YeChj0ybEPWcl LCtUIivTJU9J52ku9R5QL OqIWHxYFS6aZX0zA3ueAb nbjogbGVmdDsg fxEmcGjzMIfqEEoeH400K HRvcDsnPkJpcnRoIERhdG S7KE82KE05yGFbv8I5yKO 4C0XgOWIlzxge getpkUB0VAUtCLUtiD28P d7ebNmpFk0yMBNhEXA8UF SszESwI9ArlX6xYrHfXRE bSMFwK9OysQCq WEpaN581TZuoCnA0JTHqx bTnY3OqIGFkdTozIaC4b7 S5Rt6GW7E0MP68WF73xYJ rh3E4qNI1C1Ik SMJbiycnowpolAF6QQWyW MEhhD77Ri3whIeiHi1wBF DhHUT6YUHryDXdP5MbiT9 yOiAjMDAwMDAw F9VifWOsUUbuL976VTlwU yB1SENmbvSqW1ErIDEfvS kfKjJ0j0F5Nn1NWVy7PA7 1CP23mOXdl9F4 fNA2O4OkMGSskwndcubso ED6DQRwLATdhZ79Fv1xeM oxFc0fKFHrCKB0HNDxcOV kJ8VmqQ7eOdZn YUIqCOSdD7BmwUUnALlsZ 720GAxyPjM5MXBpbcQxA4 FcGQCgzZljYkR7v7O6Vw2 ZKWSmGU56IRP2 vBZ1FK93NY04M8NxBfwtt GFibGU+PHRhYmxlIHdpZH RoPScxMDAlJyBzdHlsZT0 vJo3vXPIgYNTx aLxeqTLsBxUbi5wkKBLpR JzqIR2ftTqzB2EqqXS3RL Kid2d5Vm76P98dX8DtxWL +WKXcbKY9iPV4 yX0tHgOiEaN2JXjzL880Z xStpKDvLmyjv2bql8fmlL d3MnP4GKIexqXbgKjjHFG 3s2HjMh36D07q IHdpZHRoPSIxNSUiIHZhb Zcvvf0ieT2uJa7+PGNvbC C5kGT1pR8vPvSqMqC6OOs nV205SuLiwYPb Lhdky1pvz7aqwRe4TpHdM XQehuUdjKwiLWK7l9SvWj 04G5NskBwxj9VeYan6dy3 2wUOen1G8kXG2 Z2MfVEDjeeogpDClsXlwJ I7tDIViultcZLSphW2sJL FrS3j7GbRtMwJ6WWwjT6W okuB3WJQozEAb LXvvDUF3R34fd5C6CEFcN HHxTTQ8jZR4fP5saZjazk ogbGVmdDsgdmVydGljYWw xFBgnO444PBXo oKshEZVmeG8yOCPsnVKxq BrfWR4jWRBpdinxYmCKSF 6HGRPiUBlQKUXCWRE5W9C eMnc3VVVovLfc TQ3ypGQdFDvuIk4wxKvla JzgRE9aRIWlvhrdOFLpxE 5oIGNvyWIbxWvbNB3kEBV rrkoou456CsMo JZD2CRUwaAGeD9QveI0yR bAzSRWgPCMvV0FmrHJxNU dsA258QCfkKkF5CYKdnwF sQ3AdKDQcwBth FnR0q5R6Ne3fGI3xUV0pH FLxXP21UX26bADeh9S9rX S7K0OwIAIxteictsukrGJ 0WEVbZXTfvC07 vDJbEWivWk3up2R2x286E KAaSXTglD92Pt4yeFqlOX IwyYMFzY6ezcilo7movuc gIzAwMDAwMDt0 KKf8VABvqJgoBpTkWFZ1N mQ2STQ8cMLeeN2ptJogiu oalQ9eYgx+NjAgWWVhcnM 5E6DyOhv2ISWv sDzxRZ9fiKVuIBxoQl3wj HcfsJdxWS9gSWDbeubfOD QnqG9tJRPuoJTqqYgfDA6 xHJXxfmcii243 GtEeCGM5OIMhsICbN3Aqa J5sCmUlSRMiENXoA7EojJ KnWYjoQ289BFejEdW9QKU qvjXqP4CuKKYg vQjkFlV3d3D9Po6TDV6fk TL7R7SoAuv9HLQqdCisJL 4jkIZsHUdzWy0gsKhuiPr sTG2qMQOczebi PGWemQ2fVWUcoLTzmAteR N5sRTHofxddu847OnKdRD G6AOMtkLZhI4OdvC3qAkE bKMTmHIPrN3Ri fYWzODxoV677QArmOoL2I KCngzJcG3OgPVLkuMxcFk R8d5W9Pp6NyWFnWFJrXR4 1PR34NK90S3Xl PjwvdGFibGU+PHRhYmxlI HdpZHRoPScxMDAlJyBzdH dgNX1wXn8hIZVlRKDffUx sdSVdYwCmn8ah LZVxYFudLT5rrFxlM7Ifx YP0HQGzd2k3Bj28I18gN1 JvdXA+SRHmfKZ3uFO6gY0 dUzUjYwG3NDoh I222KeQkiFKvFcstn2uvc 4qiaOx2ImVsVPQiswQooX zhQAM6n5CaMn36L52lTBg pZHRoPSIyMCUi ANFvjTpvfp0abZ6tIb1+P FBqvRX2uIB7hY0eMhMlRg T2UHjbU626InFxiHAoXic gK47cB4IxiEK+ LUXeHev0OVIwdUzrHJ7kw DHgKCyjAs3hXCG9EwXhBd SdXGziA1UxZEShczisexr btTF2QDGnCKLe wF25Lr0bfUgdTt5vDBKaI DX5CYKcjRZqB0MuwT3eDu SwNBPtLPEgJ2GknAKfBOf nJ663MSwnXoQ1 QNFtexBnM5VaPJYqmMrpL nB7o8S7Rn3EvZnkiGLeOF 5eSuJaTHt8F6BtYzr5BYZ wuWprSB6zsSGj VIedJk0oyAitgMphJP5iG QNuvypff086HiKsg5ahGP OcwSQfZFhmBVA7I55dx0D 4UTOwIUHmEVH1 iAX6zP3bxQissagqyIFwp DsgdmVydGljYWwtYWxpZ2 51DFIvyWkaUmRMIkq3K2P hJkk3BSDlrVrr KH1lqUFfUQdsKb9gtDnvi OxfWB5wBVSviolkp462Ld Tjn9daPWKooSBiNGjvZDV 5J18oe3T9IJJj UMFvVWD9sXA9rW5hrDdiv jogbGVmdDsgdmVydGljYW wnZSwxI438BJZueZqoKy3 EFxu8B3IrQbi6 WNHybFehYS6qrTBhEQnqL m1isJevuSmaFZ2fTPKrdw bby903KsEth8frUSJfzQM lEHreALB5I50l y5B2WODpLEKdWLC8gEE5s V8cmHauwvuhuORfbKvmid MfyDebSVycYKfdU889PTS vcDsnPlBheWVy OjwvdGQ+DF37pq10J6FvZ stsCfh1XJZlQHT4oGE9nA 5xKHJoGVihl8Z4kAR6J9Q wkeVgwt2jc4br YXBz (more content not included)... Normal [facility] Consent for Treatmenton 06-06 Consent for Treatment [id number]#1 .00CD:127 Normal [facility] Consent for Treatment [id number]# 1.00CD:127 Normal [facility] Consultation Noteon 06-20-20 Consultation Note Patient: ELISA [...] has, # 60 tab(s), Refills(s) 0, Pharmacy: [facility]/pharmacy #[id number], 166.8, cm, 10/11/21 14:46:00 EST, Height/Length [...] Oral, Daily, Prophylaxis fluticasone 0.05 mg/inh Nasal [place]: 1 spray(s), Nasal, Daily, Refill(s) 0, Allergy [...] list: All Problems Palpitations / SNOMED CT 513487604 / Confirmed 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 / Confirmed Hypertension / SNOMED CT 7127955482 / Confirmed Anxiety / SNOMED CT 57500110 / Confirmed Lumbar disc disease / SNOMED CT 9000688638 / Confirmed Lumbar radiculopathy / SNOMED CT 317482091 / Confirmed Chronic gastritis / SNOMED CT 09619292 / Confirmed Migraines / SNOMED CT 62556409 / Confirmed Insomnia / SNOMED CT 174299512 / Confirmed Colon polyp / SNOMED CT 778593195 / Confirmed Chronic leg pain / SNOMED CT 495133585 / Confirmed Laxative abuse / SNOMED CT 089380648 / Confirmed Chronic cluster headache / SNOMED CT 083903422 / Confirmed Vitamin D deficiency / SNOMED CT 96017925 / Confirmed Hyperlipemia / SNOMED CT 66326530 / Confirmed Osteoporosis / SNOMED CT 929139042 / Confirmed 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 Resolved due to patient discharge. Resolved: Impaired skin integrity / SNOMED CT 74952473 Problem added on documentation of skin impairments. Resolved due to patient discharge. Resolved: FH: migraine headache / SNOMED CT 633831357 Resolved: FH: osteoporosis / SNOMED CT 3273067016 Objective Vital Signs 06/20/2022 12:30 EST Peripheral Pulse Rate 57 bpm LOW Respiratory Rate 12 br/min LOW Systolic Blood Pressure 133 mmHg Diastolic Blood Pressure 75 mmHg Mean Art (more content not included)... Normal [facility] Comment on above: Result Comment: Elec tronically Signed By: Adri GILL, Sophy\.br\Date and Time Signed: 06/20/22 12:52 EST\.br\Electronically Co-Signed By: Derick Meza MD\.br\Date and Time Co-Signed: 06/27/22 07:46 EST Office/Clinic Note-Physician on 06-20-2022 Office/Clinic Note-Physician [id number]#1 .00CD:127 [facility] Physician Orderon 06-20-2022 Physician Order [id number]#1 .00CD:127 [facility] Physician Order [id number]#1 .00CD:127 [facility] Physician Order [id number]#1. 00CD:127 [facility] XR Spine Cervical 4 or 5 [...] Coburn M.D. Transcribed by: CAITY Technologist: COLT [facility] Coding Summary.on 05-09-2022 Coding Summary. CD:[id number]:[id number] G h0bWw+PGhlYWQ+OZ5FPMM jN75byFTenG5EB6kKSU2P TEYFCNZBPG4OEO7olZX6V FkuK0WtpdEp ScdzdIPvJK68DUq4MQZ6d IwqAZidrN5zqRXuT4f4Cr OaWL00pH89JZjdBCAdQqL 3LjZpbjsgbWFy Z2trZcMcwTUdGjl+PHRhY mxlIHdpZHRoPScxMDAlJy AitJbvKY2tWb3iTROoFHD vbGxhcHNlOiBj h4cbAXCnMUmrST8qhVcsW 6RrdOT3PZLfw5o1Is14jG I+MBFoFVT5dYglOQytd89 8WsAqo8cyJYT0 gXLpITmcEUE7E20md3Y5L RKzKPLpOOM1uBK3tO0eeJ yfqvoyQ5IeoNYlBkR5EXC 4eGLtoQ1cpDsz ucurdF3oHeb+F90FUW8ZV EWIAT7VNqu5V6WaWpmdpS I+IH02WUGmUB34fPPmdCQ ja3craQl7GvJs HGYoTNE9fNinYBrdx6KvJ CWaW36eqVYzz0P0KGPmrG anfEWaDyCseNN9gK9gSNk ujotjv3ylikgs Wjhij1ytui21zU09R67sU GkdKOHxKOB8JXNeMFWggD gfjw9fxP7eAn8+PMkau6r za5subMf2AdHb CRHpuzDtzVkyXTZ3l7MyK k79J5HsfOjbn1NfPgs9ro 76cAMps1P4nZZ3KSobKGU rsJ9nUFttHsT1 KGUrInIflW99lEQuQLuwE f2fePkroSdfKL9vCURexr xkMYRgtA7mWUOgdYHzzXd gKK7uBYUfmhml z710QpBkRTY9GKBnbBTeN 2CqsJ4oNnCgMXZxQAGfG9 OyuZMcSWvbK197SLwtMsG 7KCAtclIrI9Yd XHKpqNblCpV1e0F3Ww5Ss 4LxxvbqQLX5LCrwQDMaLr Z2TjKoXpW7P5JeYzd6JXA saQjuRI8sN9Lz JQXuzhzhdvsgvGD7DQVsJ AEyrT62uOEfIAglXv0gx2 H4r409IJJrTWJplC14Cd2 udDogMTBwdCBU fA4eszjvb7wswecbAbWjX QApEIa5EMb1MYJnbPtbAz YxNIO3LpE6HFR9zONaxP9 hmLujkrwkcT3y Oyc+U82tuY9uTFY9KDK7r znuFHDsgdQxGZ92SK19Y4 RyPjwvdGFibGU+PGRpdiB eoLrkPF1xEgIx n4sbd1PqKEcqK9TgKPSbU AciGvd6ZMXwKTH1eOC2wS 0kTCUmTNodi7J5dOJ2I8U hygKgar1mm9mz RTNtDTdoY42gmXPfx4U8B XPydGM3FUTcnZguJgGdwD 93Oyc+BVGotGnby4WoMdy pi3gga7czoLh8 IbGxGRAvjqItxPxiXKA3q 8RfKe24O87yNUojUWJhVT AyRDOjLAPntIeuco4rgP2 wIi8+PGNvbCB3 hOX2vS1xKFMyDiJ6YFtlR 213RpHtmFTwOjroc2pel2 vfwHd9BgCnVIWhkmYrcUb zNLP6r0JsGa98 U02gUDjkWQVnXDUtVQCeA NLjgFpdsh2evR7aIo1+PC 0pb3ptml10rO47mMK+PHR aHLA2pBciYGpk UJSulL7aSNrdXzL2RNBlY cInuV67sHTsREniSb9gdP jkdIlyLF6kABXnsacyz24 3XaKrn5quFOUk mXCyGRfcPEZ1A05hv8I2P DNpCTErJJA3pUU4oT5azZ lnbjogbGVmdDsgdmVydGl vYDusDAikU529 IHRvcDsnPlBhdGllbnQgT fLdNKj7L8HfHbv2IOMovJ hpGU9keWWpLNfiDj7ttUi xrEgeOQ3eCUPp rttqi097UsHgz4wwKQMnq XSbZHreMOV5Q14cl7E2FT XoKBAuNQE3gWM0zU7aiHt nbjogbGVmdDsg niNdoDlqYWttHNbrT872N HRvcDsnPkJpcnRoIERhdG T2YY62BE35nHKjo7S9jRS 1Y7PqAEZgyzyo ahcgwZM8OWHnGWOjzQ13P p0jhLodRj1zGGOpGVJ7PE IywEMmZ9GfdS8rAmKnZEK yWHBmZ3LvaCCw IThwZ455KQacDkY6OQQqa xNeF0YpWUPuhAueSqO0a7 P9Eq6PO5Z3GJ13WM56tSB zx2T2gYK1H1Rp QMXkdhafarymyZA8ICCkJ ISyaD58Xv2ksQowLs2jFN ArNKF7RDTkcJAsI5OrlB4 yOiAjMDAwMDAw K9LjeQKgOFvaO559EHuaQ nH7OVEcihJuN1GoYNIzxD oyCqP6a0T4Yp7LLRf9BZ0 6IP69aLUeq4C4 hVG6D6DzZPDmaowugvglp VJ2FEElEPCalB87Ng2nlK tpSw9vXTZgHEK2PQMssYL kT7PocG8dRsPm UUFzVKFlX8RssLRfCDkgD 759ZAvjGlA9WBJsplLpT4 YgFSUxyRkeJdA6d2N9Rs4 RUGBlRM10SYT6 oAT1WC35GG42R5CfAiaey GFibGU+PHRhYmxlIHdpZH RoPScxMDAlJyBzdHlsZT0 gDu2mLFQqARQp gLfjmNWaUgWtm6dvSRJvR JphAL8uxLxgQ9OkkML3FS Iul0t4Ka33X05oH8PgtCZ +KHNpbCJ8eYI2 qO0cWhOsWjC4BXrjB034M xYegKGpXwqlk6xuy1olxB j4SjB4JAHorjOwhMdaLZE 6n7BySy83C41g IHdpZHRoPSIxNSUiIHZhb Vabgy4skE6dEw3+PGNvbC U1oZT6fS0iGoQmPtP1HUh zJ375UaQlhFAs Avjpx2kfe2lcaBk7CzBlH RRlzbFseSzuHGN1s4KkPo 26K2HdrYxct7HfCbw5gx2 4nOQzp8G0uFZ7 I4KwVIJaoqwyrVGdaUljD P2aLXSxmnwtMOZgkP8pJC MaF0d8TrBkZvJ8WEzjH2B pwpA5EJSpeRFq GNtiHMT5J39ll8Z2AQSyR XUsTDB2qEG3uL9qeVdcoz ogbGVmdDsgdmVydGljYWw iCMhfW938DBMj hEmpWGMmkF5fJEXhsYYvb JfnIZ0nRQMxnsqiVsNRJB 8OYOVeTYeRKZPWINT3C7P uGlv2CXIecKyg IO4kqYPhHBolPt5dqInqk TvlMQ3mRIHefltqZLMycJ 2zFFIjuVWziWouRN8zRBV petsww079ZvWw GSH8JZOoaUEkF7VikU4fH pPsBIKuAUHjR7BlvEMvPH mwC832XErzQnE2BYIvysH fC6VaSOLsiPjg NxM8t2C1Tw1wAZ2oMA7nQ TUlHM70VZ18eZQal0K3lG D0M7KmUSRquqizbidtaON 2ZISzKGWbqI71 tWZyGEpzJf4iv4L3s715E NJhOTOsuN02Sl8wdRygLJ RwkSXPpZ6iiqjba2xcayi gIzAwMDAwMDt0 IOg1SPSgsAlsDrYsFAA9R fK8ROD5aIEtbK5rwHkcfv nktE8pPkx+NjAgWWVhcnM 4D9NsExb5TOZd jPoyMA1svKBgQSshRa4zw JustXloXS2pDESozxonUE JigK8vAHHcvVUtaTzkZP7 pJVJyrmgbn977 JzXfBBK1LTYxgTIiW9Vpi C0cToDyCUZpIVBqV7CbrA ZhLEfwM834ZXwfSiS1MFI zfoLlU3PdHCDc wJlfXlX2k3W0Bn9AHS7zq OF7M8UeWdd6PQSqqGqdVJ 8aiOPqNHpnTo0pdDtwxKp hED0jELLxjath ILLheW7tTQYzqXDnwLycI H0kBYNlizptm381YfXoGF X9OUQeqILvV4AzqQ0dVeK gQSTdJZYkG8Fw rPThFFpvL961BNciGzW0A RUqdhWaO3DgECGmkVpzTc O5k3O2Wu1XdYAbHWXpHF2 9ZL70NV49V3Nj PjwvdGFibGU+PHRhYmxlI HdpZHRoPScxMDAlJyBzdH hsLU4qUz6oSPYkKCAgtCc wyGKdJeNco8zr DGPyEYsrYW6bnRliH6Jnl PT4HSKhw1y1Ff85O80lV8 JvdXA+ITBamTL2wXA6eS5 mXfBzYqZ5AEkr E892TmQdaWLyAwylm8iwe 4ubxYk9DeHnDLGlnqWeaR nlQSC9r0NxTx17Q87lYVc pZHRoPSIyMCUi EUMivIczai9pbM4tDm3+P GLjrKC1hXZ2fN4bKmBkOh P2RXqsL053KzPwiUDqQrb uU75mO2XqpZA+ ATYmFzc4WZDgiHwqJY6rp SBcKMaoQx3vIQO0YtVoZk SxTErtB4SwMVPpslnbvlh zxRO8WAClHCBt oJ90Dy1hyMfaWx5xVEBgL CJ0GNAycPGkP1IipV4gTf OhHCBzZFArI5AhfOGiXAk fK036DJqoYiQ7 JVErsxJzR2BqLZMxeIacC iD2f4L5Tm2XhKnbmVVrCD 4qUcHmHLi1Q8WdYgs8EMG xnTadRH2yiICj OQprQf6hjQyjjVzuCZ6cC RIxhlfyu630AcDfs3yoDH NaoDFpXKdhRTU4D48yv5S 2EBEoDQXvRUY0 vOX0vT6nzVynhbdbwSLxn DsgdmVydGljYWwtYWxpZ2 48NILjkQdmEaVTAgq9W7J rQvl1BAAvtGbk TU0jgKVdUZzkXh0vkJjhl SdhKS1zCCMkkjcso784Qq Lfu5ieOLAkaMVeFZyeSSJ 2P60fg1V4TKIo MENgOHM0iWC8fB9qkClym jogbGVmdDsgdmVydGljYW kaVVeoF209UCKrnJhhNk5 LYfb0L1TgKah1 SBFzwJpsUW8qzMGcUAlbU q9axRhfzLpgKO0sCWEcwg rfo495QgTtr9qcUXGrwZS vRCogXHJ2Y64w a4M7SLNaJXUqBPA4nBZ6u R9koMhigpwcbDXgmLubwq ZdwVzpPXwoBAbqZ761NNO vcDsnPlBheWVy OjwvdGQ+PI40ae26W2DiS bfzRhj2MBBeEIJ9cZU5yJ 7cJNNhOFulm3O0iYL5K0U ydkYbcj8zz7mm YXBz (more content not included)... Normal [facility] Consent for Treatmenton 04-07 Consent for Treatment [id number]#1 .00CD:127 Normal [facility] MRI Spine Lumbar w/o Contras ton [...] CAITY Technologist: BARBRA Technical Comments None Normal [facility] RAD - MRI Screening Formon 0 05-04-2022 RAD - MRI Screening Form [id number]#1 .00CD:127 Normal [facility] Insurance Correspondence Off iceon 04-27-2022 Insurance Correspondence Office [id number]# 2.00CD:127 Normal [facility] Physician Orderon 04-27-2022 Physician Order [id number]#1 .00CD:127 Normal [facility] Physician Order [id number]# 1.00CD:127 Normal [facility] ECHOCARDIO M/2D COMPLETEon 0 04-20-2022 ECHOCARDIO M/2D COMPLETE Patient: ELISA LEUNG Exam Date: 04/20/2022 : 1960 Gender:F Ordering : DR EMI FRIEDMAN . Admission #: [id number] Family : Order #: [id number] CLICK HERE TO VIEW EXAM ECHOCARDIOGRAM REPORT [...] Reyes M.D. on 04/21/2022 at 19:38 Normal [facility] AORTA SCREENINGon [facility] AORTA SCREENING EXAM: [facility] AORTA SCREENING HISTORY: Vascular calcification. TECHNIQUE: [...] by: FRANCO TOMPKINS Date: 2022-04-20 11:04 Normal [facility] Outside Records Officeon Outside Records Office [id number]# 1.00CD:127 Normal [facility] Progress Note-Physicianon Progress Note-Physician To whom it may concern: Patient has been evaluated for lower back and leg pain. But also popping and cracking. 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 She has used OTC meds, anti inflammatory meds and muscle relaxers without relief Due to all of these reasons I am writing to have you reconsider the Lumbar MRI for possible surgical interventions vs referral to pain management for injections, Thank you Sophy Rush PA-C, [facility] Normal [facility] Comment on above: Result Comment: Elec tronically Signed By: Sophy Rush PA-C\.br\Date and Time Signed: 04/18/22 13:50 EDT Outside Records Officeon Outside Records Office [id number]# 1.00CD:127 Normal [facility] Insurance Correspondence Off iceon 04-11-2022 Insurance Correspondence Office [id number]# 2.00CD:127 Normal [facility] CULTURE URINEon 04-06-2022 CULTURE URINE Isolate 1 [...] Trimethoprim/Sulfamet hoxazole <=20 S F Normal [facility] Comment on above: Performed By: #### U RCX #### [facility] [address] [place] [address] Dr. Jeffry Daniels Coding Summary.on 04-04-2022 Coding Summary. CD:[id number] G h0bWw+PGhlYWQ+YJ4IDXZ fG90prGOpuB6BD5kRQT3A KSGTPXJBEY7KII9mkNW7R CadS1TctePv WodpeINvFH81WPb4CXB0m BbaHFkpxC4ceBJdB4b5Gu ChYI82aQ02YPgjGBJiZnL 3LjZpbjsgbWFy L4fvTzRkvOEmZrn+PHRhY mxlIHdpZHRoPScxMDAlJy NskShtNY3dIf3yNVCgGQY vbGxhcHNlOiBj h8mcGAFnKFhzLT7xhSqdN 6TimEZ7BONws5d3Jy89fL I+FUPoHCT8hVjhGJccc23 8GdFuo7evSNB5 yGXwQZzgGTB9X31wa8M2W XUgIRPwWGR1qXP8dU0tbK zhakofJ0CueXQrGiJ1YNQ 3wZOdsQ4zjKms ftjapT9cUsa+Z36JAC9YX UUEZK2MPtp0G3HtPodjuQ I+YB66TVNrXS00tPNdtVU ui7ikwOi1WqPc TYGePQV7aMfvPWbqf0HrG TZrK75kaQHyq1X3WGXaoA hnxWXyXsCtoUJ7sB4lPDn puazpf3fspumb Xzxku6kidx22kZ36U00hS IorIFTwLIC8PBGxSAXccG idml3xkE3gKi4+PAnmo1r dv0vbhTy2BmHu BHXqsiBqyLwmYJC4u5WvF d60C6PalCecp8NbXmq1lc 67lYRis3Y6bLI8ASjgYOU lsA0qXXxlUtK1 NJYoKbVknP99hQYcXRuoU l3ftIyvkLorJO9jMRApdt pyDFWivF2kYNOjyWLwlRr cUK4eDSVeswzo q965GkMoYER7FXZraOXrH 7PqkW1gGdDqXINwMTVpA7 WsyYXrWIyaM069VMmzBxY 4KKChmxOlV0Ml RJOnqPxmCeE4b9C9Xw6Mf 5WklmriIGB1ZXjnWJK9Fl JoAnUiVaP7O6FrDoq9VJI jwJpyEF9xN8Av ZTDewcaidtkpcVD5HCLdK BAbeY39mTVhOAbiRe6gk3 Z6q116HEEaOWDxhR71Op4 udDogMTBwdCBU jR3wpodcz6guvpyqCrSoD NOwVQm0ZLd3JQCwpVgpCr FwBST4XpP1QPE8fTEviT1 ydOkohseonC2v Oyc+C48goC1ePGA6BMZ9l hcmCZIohmVjOS84AF86M7 RyPjwvdGFibGU+PGRpdiB otLgmXX6tApKf z2sni3JyEZutH7MiHAUwP SloAgg7IJKoGSF1uSB9iO 2aALJmGGbxq7X9kBJ5J9I bveSoyc8uu1nw EMYlHUirT23vjKKnu0V9X JSttPS0WNJpjDccHxGrbM 93Oyc+NOTehQuvq5TkRem ka4xfj0zfhRc2 WcZrAUNmyrVdoCzlDKQ3t 8SuEm62M27eFZqcLFYbWK QpAVEmFDZkjIwsyj9fhG6 wIi8+PGNvbCB3 aZN9dJ2qHZTzMzD1OAkhG 288MyAylLPbPdmyr4rvy6 obvIo6LrJwFKLmekQoqTw fLDE7w4DuAx63 D34sVOxiMCZgTQCdURVzX DWcrPgyvl4csW4xAl3+PC 8tb4lrcj85aG50vRN+PHR yMIP8oJcuDEul YGBueF1iSYfdJwO2LHBiG jJxsD77xBTtGOjvSp6byC jvnWebQK6tNKWartxnl22 0ZjKhj5raYCDw sESyZVocWXS3T45qi9R9Q OJnSZZlBUI4iPF1tU0qmS lnbjogbGVmdDsgdmVydGl aWOdwXPcuO985 IHRvcDsnPlBhdGllbnQgT eZwNNc1A7YuGfl4JSTabB whJO2qkMJnKJcgNt8abYd pcVhsJE2lMTCk xrynd413UtMgs3vbBGPfn WBrMIgyDFC7G17jp8C1PN ErHZWpTUL5pZJ9qO1xuXx nbjogbGVmdDsg ekKpyQotMUukCJfqF821Q HRvcDsnPkJpcnRoIERhdG A5WT00JJ03tEVlo0U6kPF 6L6RiKORsfkcu dqnodFP7HPCuYHClaR90Z t6rsBjoWw1hBUPhEBR2MQ SdnMOgT5JsbV2rUlUpIKG kWUGhA1OaiROq UMmbU952XEmvGhC0LIKsr nZpM8DnTFYufYwhTpT9x3 C0Zp3QV2Z5KP76LZ20aSM qq6P9mSP8V1Nm LQRyxcgdamtrhMU4KTErX OFsfJ77Fo0wlIjwZr8pGQ UdWBZ7EQPoaTOvE3TboA6 yOiAjMDAwMDAw I8UrnYHoENcpU182BPndX kG5ZLNxurYzO5JlHLJwhJ drNgV1r8B7Lo5JSIf9DP8 6IU27mPVhy3Y2 jZX8C7XwRTFpkvipixwyb WP1PXBcUVZplQ97Wv3daN swLq9nBZGvSFS2HOMolOH yH4JldR5nHrDd RDLkBOJtZ7WycSXiUAxpY 759EEzeAqS1NHKmxjTkC1 OsZLZraXzhKrI3z6I5Qd6 JWPZdSY92CYJ4 vIN6FK29BB74K6BbEuqxi GFibGU+PHRhYmxlIHdpZH RoPScxMDAlJyBzdHlsZT0 cSe5lQMJeQETe vSrpkHUbXgRkf6geDMEzG VllAW7kbApmN0MhrIG1VT Ewq3y3Sl45K71cJ4ZwlUZ +OMVuoIW0cWV2 gI0aBxAvHaK3PTkbD724T dLztYCqUjgyj2tce1asiD h4KaC6JPWqorPecByiOBY 7i1UyLb61H74t IHdpZHRoPSIxNSUiIHZhb Tzcuq7zkT8jEd0+PGNvbC J6nFX4pC1vClKsCcR1MLr iM950PzSgvSXe Hfjgq0qwq9khxOe3WcAnA RLcqdVojDefUXJ1b2PzGu 14X1UyhXklk5HyNbd0ur8 5zRWsi1L8rES6 Z3GfRHZdsmuqkFDuaFhpZ S3vNGCmqawmNFUvhW5aEN TeA6n9VuZiMpD8DOocJ0Y qcpG0AURbtEHy DZxvSUK2O83sw9L0RJPpB QCwGJP3aUN8iD2vfGrqyc ogbGVmdDsgdmVydGljYWw iOIslA785LZJy cAnvOFStrC4pQYGyyYAqd BelVL5dIZNlrzrpQxRNRF 0XLUQhXDcKUDYJIVE4S1Z dCzs3RDNqiChp KA6hrXHhOFbhCc0jzCwig LzhPV0lGNQsopynPAMefU 5rBQKphTMwvAjiQE3cKJU acwkgn236WqPb KXT7BSOqyRJqV0KcdK1hD hLqKQSpEUVdX8HgmVLcVF ycT561GNozIqI6VZJydfQ kQ7BaDWRkxAbj IgX6n6X2Gg3wCG6pSF5oO UKvEH53UG90aUQch9J6lG I9I0EdXKQtlnyiilzfjIZ 4IRTmAZVcnM49 zPWdVGtpMa1eo9D2f443F JDiVSVluF12Ba8qzEcdLE WswYFBjG5spmaec4itbvt gIzAwMDAwMDt0 HHf2UWNjpAexDzVrHBP5K yH9DWF2eKRtdC4tpZivlh qerP5hQhy+NjAgWWVhcnM 3U5LxEpl5DZDw lKibZQ4hyPGmJDdkRt1ri MkhyGhpXN3uHVGbipznNE EbxY7eYZGgeQPgmStaWF0 gDTAztdykp132 BmNvCMB7ZEMlnIYjQ0Dwn B6xTeFgSTFzAPKkJ0BubQ BmPAwnV016VGrlIfY5BCN xzcIjS3QnZVFo vOsaAgM6x9Z9Ou9NFW6ru ZL6K0BxXko2MTVovDfgAB 6brDWxXNxrOy4diObnuLj hGI1iXMBoivil LPKooA0cAUEbnBSbvMizK L3kHQYltomyq164HxSwEM A0OZGepKLnB1QppG5fSeQ tPFOnRMWnW9Hl lXIzNYgjW874WGdyWnI4L JByisChI8IxABGtyEfiKx Q5r4U3Ke9JnENyACKoVK1 5CN76KE25I7Ko PjwvdGFibGU+PHRhYmxlI HdpZHRoPScxMDAlJyBzdH cwMT1nJk2oMVSeUIQsaUm qmJSrXiCin4ys MTShEKaiOS0bqMhpN3Xpz LG1NBSqb3q8Ry45S42hM5 JvdXA+ZCZdqAN5bKA5yP6 sGhBmLhG4PZnv V344NwAaaKHySjrha7mrl 0bczBs0QuCwDWFtfsXdaY psEJT2p6PgIu91K69yGUd pZHRoPSIyMCUi JWNgiJjbvp0hrZ0bPd6+P ZGojLH1hWT7yL1oGzSfFa G9BUkkC847DfQlmIWyVps gF58uF9IhgAE+ ICEeNbc4NXDsqQisEK8ow SHeRCajJp9iGWC4QyOhAe OkKQmrE1NbXHQkldkaizh crBJ5KMXkETUh oP33Ha8eqOrpNq2oOASjP UP3PVFfeXMiZ2YssD1yAj YfUEDmPXUaZ8KusUTwHSp uG005HMdrSiH8 IZToleVsT1MwFCImtEkgZ oE0i9E2Vp5QjJdgmBZdUZ 3fBcJmLPr2Q4CpSew7FCB zvTtgSC1xkZXx CQolIg1wdRhkvGbvQV5iR HAyacjum797VgZsq9pgFI NscULxQRnoANB7P58vu5Q 3DTTwYWLfVOE3 lQP6yD8ntMfjfqespCZrb DsgdmVydGljYWwtYWxpZ2 10VVGswUkwWwYKPeu2G6B wSvv3IYHxcUxo PK2mbCVaQHhoEh0unQnuw ZznCW8sSPTpuypai766Id Gcz8llIVUkcMFiCWjwOXD 0S20ok9H4NYQe HBMhJWE5uBL8tF7aeNbhn jogbGVmdDsgdmVydGljYW nkFBdoT721CTSwbLrtSu0 TOkp4C7LiNzm0 DRTzgXygXG6poNZzRMjjX i3exYrfnIubUZ4nPSTysl gzl366QaMyk2slXCOwnJR jKGunUWU0F72h d9C6UDRqWCJdCQR3kMQ0l N4avYjwhhrimYRhhHjgce MlfVelUFekIDntH658DFP vcDsnPlBheWVy OjwvdGQ+BK12uo45V9SeA lhtCkz0KFIbYNE0lKU5gZ 0xSYRlKUend6T5dOL8C5G hnmFluq9iw0wo YXBz (more content not included)... Normal [facility] UA RANDOM W/MICROSCOPICon BACTERIA NONE SEEN Normal NONE SEEN [facility] Comment on above: Performed By: #### U AMIC #### [facility] [address] [address] [address] Jeffry Daniels Bilirubin Ql (U) Negative Normal NEGATIVE [facility] Comment on above: Performed By: #### U AMIC #### [facility] [address] [address] [address] Jeffry Daniels CAST NONE SEEN Normal NONE SEEN [facility] Comment on above: Performed By: #### U AMIC #### [facility] [address] [address] [address] Jeffry Daniels Clarity (U) CLEAR Normal CLEAR [facility] Comment on above: Performed By: #### U AMIC #### [facility] [address] [address] [address] Jeffry Daniels Color (U) YELLOW Normal YELLOW [facility] Comment on above: Performed By: #### U AMIC #### [facility] [address] [address] [address] Jeffry Daniels Crystals LM Nom (Urine sed) NONE SEEN Normal NONE SEEN [facility] Comment on above: Performed By: #### U AMIC #### [facility] [address] [address] [address] Jeffry Daniels Epithelial cells LM Ql (Urine sed) NONE SEEN Normal NONE SEEN /RARE [facility] Comment on above: Performed By: #### U AMIC #### [facility] [address] [address] [address] Jeffry Daniels Glucose Ql (U) Negative Normal NEGATIVE [facility] Comment on above: Performed By: #### U AMIC #### [facility] [address] [address] [address] eJffry Daniels Hemoglobin Ql (U) SMALL Abnormal NEGATIVE [facility] Comment on above: Performed By: #### U AMIC #### [facility] [address] [address] [address] Jeffry Daniels Ketones Ql (U) Negative Normal NEGATIVE [facility] Comment on above: Performed By: #### U AMIC #### [facility] [address] [address] [address] Jeffry Daniels LEUKOCYTES SMALL Abnormal NEGATIVE [facility] Comment on above: Performed By: #### U AMIC #### [facility] [address] [address] [address] Jeffry Daniels MUCOUS NONE SEEN Normal NONE SEEN [facility] Comment on above: Performed By: #### U AMIC #### [facility] [address] [address] [address] Jeffry Daniels Nitrite Ql (U) Positive Abnormal NEGATIVE [facility] Comment on above: Performed By: #### U AMIC #### [facility] [address] [address] [address] Jeffry Daniels pH (U) 6.0 [pH] Normal 5-9 [facility] Comment on above: Performed By: #### U AMIC #### [facility] [address] [place] [address] Dr. Jeffry Daniels RBC 0-2 Normal 0-2 [facility] Comment on above: Performed By: #### U AMIC #### [facility] [address] [address] [address] Jeffry Daniels SPEC GRAVITY 1.025 Normal 1.005-<=1.025 [facility] Comment on above: Performed By: #### U AMIC #### [facility] [address] [place] [address] Dr. Jeffry Daniels UA PROTEIN Negative Normal NEGATIVE/ TRACE [facility] Comment on above: Performed By: #### U AMIC #### [facility] [address] [place] [address] Dr. Jeffry Daniels Urobilinogen Qn (U) 0.2 {Daysi'U}/dL Normal 0.2 - 1. 0 [facility] Comment on above: Performed By: #### U AMIC #### [facility] [address] [place], [place] [address] Dr. Jeffry Daniels WBC 2-5 Abnormal NONE SEEN [facility] Comment on above: Performed By: #### U AMIC #### [facility] [address] [place], [place] [address] Dr. Jeffry Daniels Coding Summary.on 03-31-2022 Coding Summary. CD:[id number] G h0bWw+PGhlYWQ+WW7AFGM cP04jzQYitG9LA3mRTI3K KCLXYAWOHG3VKU3ywNN1I GhfR8GivxQo HfyvhDKeJO32HKv9EKN2i UttFTvoxS2svCEhZ7t8Ad UyAX96hM99HWjlXREvTsC 3LjZpbjsgbWFy B7anLoIpgPAxSkl+PHRhY mxlIHdpZHRoPScxMDAlJy MppDqkWD0vKu2mFLNzWVE vbGxhcHNlOiBj b2ngZFSzMQyxYZ3djEpfI 9NmmWZ8QVSnc3s2Fi69uY I+TBZxJXW1nOyuAQyjt47 4TbBgw8kbVGW0 tWXdDRolBYZ2R46ez1H3E PKpRGHtSTI8kSK5gE3xaI jwafwmA2RyoAZcAcJ4RZW 3pODauO5cuRxg ocbkyY3oZof+L12YEC9YA EGIWJ9PJlp6N1PxLuxdmX I+DZ95KKXzOH85mMBlfPC mq2lsuNs8WtPg JTHxHGN8sFjtCQuge0FcJ VEqL24zqBDsc8K7LPAqxT lbzFGlBzOduIZ7vE8sOWh ufkijq2lhgkrb Hejyq2wscd15qH67R45sW UrdJKQiFRN2DFDxQSSsyR hgzf9aaH5tNy9+KXnqz0k oe4ykiGo9KcMi CNOaifUyxHfwRGS9u0AmJ n42C2LvrOgxi6AqFnd8sd 71uGAyo5C8xUY9BMvvGBR euR3cPBbmWfO3 YQYrUaMvtG41dUJeXZajB m0bwIilxKciWF9fQHDpqp xzECJkdC3bKBDkkQYaaIw kII6oAVBmjvbc q740KoTpFJF6PWXaxIGnI 4LfpE1pBbFbHVIgYFYyP8 CjoYBbFZfjR095XGkmLmP 8LRUcueKgM8Ao BRXqeKobQoD1l4D7Ih8Bb 2MvvqxrVEO7XWzzXOT9Zq N1HiUhSkU2R5JeYhp0NTF xrJvcCO3hK1Gx CBXhvoralenflKL3KKBhX SLhsA49tTMaWJdySf7fu8 D1z795YIPtYNZxkS96Oo8 udDogMTBwdCBU mO2vkfblo5zvwyxwWnIyW RSmDQr7LBy5OFKotVblNl TuFWI7NoO9NEM0nRFnnV6 igSooyqktzE7a Oyc+T13ztT9jUBP1NIR6q ivlHXIooqXgXF72OB73F5 RyPjwvdGFibGU+PGRpdiB ooHpbEL6sUrPo n8dzq7MyIKenJ6JrYDDgB LvyKpg1CPAzHUO2fUX9sT 4yGYTcLSgjl6T2uTS7V4X ufxEhtt4yu4eh VUKeQCjxI87yjSUcc2W3M ZSzjBC7SXZprHrrFpXmdM 93Oyc+TGMslTiem9YfRbk ub5phl6irzOs1 JbSfHKYxqaJasGwaCPB1r 1XjFa12T25zTEchGCLbQI MvIHQjWWWhuPsyqb9kiX7 wIi8+PGNvbCB3 kLK3iP0fWAEhKnN6YWmeR 553WmMoyQRaEkbra3mpc7 iqoKk6ElHfHXQzcgXcwEa jVYK9j6IwRo32 B83uPZfgYOQpNZRrNDXjK LJshWtrmz2ekI3yIo3+PC 3mf7qvzr72aU54aUO+PHR mUFH2zTakKSlp HPZgyH3sVYiuCmX5YZSqV uJlyT76lZJdKSpxLu9qlT huyCmpRP1eINCxxpbzg26 7XzEjf6xnYDBv lCBiZJssCBT3C42af2I7M PHgHYLpRLB6aHX1jH1brT lnbjogbGVmdDsgdmVydGl aIYtsAXtpS875 IHRvcDsnPlBhdGllbnQgT wXlMNp1P7SeSsb2FRAsoS kvHR2uzGGrAAfvTg2qcTn vzSluEP3wJUEg jngfd064UyFqs4buOATdp YWvSTtmZGF0D47nj2L2QU AqLWSiYDD9uSM7wL3snNl nbjogbGVmdDsg suSrcXzqPBgqIPwoY257H HRvcDsnPkJpcnRoIERhdG T0ZL67MA29iHVfb3C8zKP 3U5PmJELmkzxy ovgsfZG6XFVuNGSdkS63L i5wiDisPa8bWGIyGBF4CZ GufOEcP5VzuL7aCuWfSBP aEUVbZ7HdrDEb IYctE940HOoxUlO9HJIks kRjA0YjQWHcwPnkAqZ0d5 X2Fv5XW4E5LX46ZT85cNB em7O0oDW3B0Te TWZkssxmgqukbCH0VHUbJ YTdrL41Cy2bwAnwTi8pXH FuLQD8MUVtxLGsS5IowW1 yOiAjMDAwMDAw J6VboZZkTDfxH794JHtjW bY1NKApgsQnU9BnQZDhpS ggJkV2a4B4Zv4EDFe5KC6 2OC61fXKms3O7 vOU2U6RqOUHmgqwmpaslx TW4VPGgAGRbaJ31Bj2ogR ohNj0lFZZlVSZ4QVKreWU vN7BqdM1xDsIr HMXlCWRiF7AjwLFkRGaiS 479ARzsFpU8FMEtziTkY5 XbLHIphJqcVkP9j5M1Vp0 JYKFjAN47DZI2 mPU5RJ05KR82K7LiSinkv GFibGU+PHRhYmxlIHdpZH RoPScxMDAlJyBzdHlsZT0 fJd1lXUMiEYWv zHskxKOxHgZsm8qmHWTlN LruHH3giNxqW3NycWR0RK Jqi1e1Hi76K19vZ5InnTF +WTRsjCM1qBU3 aK8zQbHhHiA6ODdrF174H cJgmEOmWakmv0ljs0qivW d0KpB4OPGyyyTgeGqhAVA 1l5TsUm45N31z IHdpZHRoPSIxNSUiIHZhb Bonus7qcU4kXe1+PGNvbC M8yJB1mK3pBlOdDgX9KDa tG208LqWwqJTz Whzbp0jbe6sdaXi8JtFjP MDrhmYzgJdfMEP3q4RsSd 42E9BsrWlbe1LcEcl8ow6 3lDTal5W9yHG1 R6SiQDUxpxfhxLUosVxyM F8oGZEnemtpMJTgoR9aVQ BvU6h0OnXcScB6KFxiT6K jbsA6SRJkjGNz UEwpZZP2F67ps8D2HNZdC NIeUSO1bFE2jD3wiJbhod ogbGVmdDsgdmVydGljYWw gZMtaE174BZId oVezGMBvrS1nLFNtbWXot BchKO9xPKNkesajOgOTDW 4OFLIdKWuHJCXSMLK4T1L wDrf5INOtsTbt UN5acROxUGbvCn8lmSaae JggWN4sQQZrlklyMOYxrQ 7wKLFkyMBjyEciXC0aZBF jdxakg675SwQh XQK6RTKdwNOxW9ItzN8hS gOyIDPcSOOpE9TvxYVxPV ttU028BMuzStQ2RVRifiC gU5QoAIIjhKul XnB6l6U2Cr9dQM9mFA3pK EIuJL84JB51pCJyu3R4zD F9C9GaKOPxptpriuaxfZC 9JBYaLXCzkZ75 aRXjCRnfMt1jv1S7d724R TGsCRRobK60Do3ekVckNH BmgRTJuV6woswxr6qxnxe gIzAwMDAwMDt0 RHc0WRFlgWzbXkWzQTF1L lI6EZG9yDPaaI6puLvnyk rnmW0eXex+NjAgWWVhcnM 3V1MrXtm2NUXk zUigXN6hjCYcBGpiAe8fp QinsHghEH5jBAKwxekkKZ YwzJ8bAHSvgCNtgIetDH9 lNYStoxsbm479 EyIkYFT9MTBdzCBjK4Hmx C5rEaUrJDOhQYDwP1DyyI TjZDrzP041SUceXvU1TID oooFzB4EuPLBt wVbhSaN9f8G3Gk7DJG6rp NK6E8DgCut8TQBchRfrZK 9liSUlXUwgFm3mhTtopWu aKX1nWRTfaaxd DRVwtN8mMZWodVMgcJquQ W3hVNBgknufd774GhQrOG M0GFOlcFVdM3JrqG9vYcB jACWdRLDfF7Tw oLJsOVzdS704CNyqXsF0X EPbiiNfX4UkATKwlGhlOr A3i3C1Su3RwCUvFBCzWW7 3HB58KS51J1Pi PjwvdGFibGU+PHRhYmxlI HdpZHRoPScxMDAlJyBzdH itRY2mEj9hIBYjAQYneQy ptWZpUiPax6as AHWqQJwbHT5wqGnuP7Ech QH0GEMzq8i6Px94O03sV6 JvdXA+LJNddUG2jQC8vH8 qQtFtUmS9RPub G498GwKoxJFtKntnj5imp 3eyhXl1LxNePCYydoUdrV yzJCJ3z3KrIh61G08kFRf pZHRoPSIyMCUi VNQijPjvlk2xqM0mDe1+P USymMB8hVS2tY1fOgWrSv O2FGaaK550JtRjeMMbVdz eY63nU1CglXZ+ JUXrXon0DUMilTvcIJ8oh WKbCDdhTy0cFLJ6TbTgAh TvEJetR1PbMXNhknpcvlt lcDU1OZHoXIOj kY84Md3qvTjnQx9nXJZaA WU9UIBayIHdO7VqdV5nZo XqYODmNILmW1OawJSdDPp vQ238QNxlKlN1 FWQdxiVhG4IfGDYkrAnqZ kP8r8L2Jj0JuYopiXNvWU 4dSkSnBOq6Y0SkSxo9WNJ xaZsaCB3keTTl NMugVu5qmDvafAbgXE7mF OGlrfcpe486XvPdn9voGB KgeGVwVOfiKVF0B52af5X 6HXSkQZKaMLT0 vWF4wR9krUisdzysrIIud DsgdmVydGljYWwtYWxpZ2 96YORmcVnhIzLASya5H6N mHll5MAZopFrv XV5ksIWjKYnaVa8moFtql PaxWZ2cZIHatskpy561Mu Rvg0liXVJcuFEqUGxzDWZ 5P42zr4C3VMFu PHQwMTN4gUN0eY9zeNgdb jogbGVmdDsgdmVydGljYW usSJwbJ912HLFcwTnbUj7 ILyx9E9BmVun7 JBVocZjzEF3hqSZgXVnvP g8whOmcjMhxNF0tRSOtco odn631LyIpe3keNFMcyQE aQThmIAU1C32r o0W3EPFnQDGyTAC8tOI4m Q2jvQuhcrcorILksRcmhx MkoDsrRQpnNRipF480CXX vcDsnPlBheWVy OjwvdGQ+PY18qp09B4CtQ unwOvj0FFHuAHQ1kVP0pF 9tUQDdNTami5Z7gWO9J1Z utfMjao2ng7pp YXBz (more content not included)... [facility] XR Spine Cervical 2 or 3 [...] Aldo Coburn M.D. Transcribed by: CAITY Technologist: [facility] XR Spine Lumbosacral 2 or 3 [...] Aldo Coburn M.D. Transcribed by: CAITY Technologist: [facility] Consent for Treatmenton 03-07 Consent for Treatment [id number]#1 .00CD:127 [facility] Consent for Treatment [id number] #1.00CD:127 [facility] Consent for Treatment [id number]#1 .00CD:127 [facility] Consultation Noteon 03-28-20 Consultation Note Patient: [...] needs to get it taken care of. Lwwh-ghz-boqynrv anti-inflammatory medications do not help. 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 Hypertension / SNOMED CT 8662313737 / Confirmed Anxiety / SNOMED CT 78737363 / Confirmed Lumbar disc disease / SNOMED CT 9181126060 / Confirmed Lumbar radiculopathy / SNOMED CT 552378483 / Confirmed Chronic gastritis / SNOMED CT 69428074 / Confirmed Migraines / SNOMED CT 59341967 / Confirmed Insomnia / SNOMED CT 348333713 / Confirmed Colon polyp / SNOMED CT 356947332 / Confirmed Chronic leg pain / SNOMED CT 892230906 / Confirmed Laxative abuse / SNOMED CT 238783022 / Confirmed Chronic cluster headache / SNOMED CT 803067368 / Confirmed Vitamin D deficiency / SNOMED CT 96960950 / Confirmed Hyperlipemia / SNOMED CT 93743497 / Confirmed Osteoporosis / SNOMED CT 490723562 / Confirmed 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 [facility] Comment on above: Result Comment: Elec tronically Signed By: Sophy Rush PA-C\.br\Date and Time Signed: 03/28/22 12:44 EDT\.br\Electronically Co-Signed By: Derick Meza MD\.br\Date and Time Co-Signed: 04/04/22 07:48 EDT Office/Clinic Note-Physician on 03-28-2022 Office/Clinic Note-Physician [id number]# 1.00CD:127 [facility] Physician Orderon 03-28-2022 Physician Order [id number]# 1.00CD:127 [facility] Physician Order [id number]#1 .00CD:127 [facility] Physician Order [id number]# 1.00CD:127 [facility] Coding Summary.on 12-29-2021 Coding Summary. CD:[id number] G h0bWw+PGhlYWQ+CJ4UREL nV73qmIQhiK3QJ0cTGA9L ALVRQCROVY9YAD0woPQ1L AfgG7SzrtGs XixctEQlZC91TGg8JYW7u HmfBQmotE5hrBUmF5e5Fo CxZS31gD68LMtnTQKzJlW 3LjZpbjsgbWFy F3qpEqPjdOEqFvc+PHRhY mxlIHdpZHRoPScxMDAlJy GllUjdXV6mUb4iTJVpVDZ vbGxhcHNlOiBj f2xgLCFxWOqpHG0ttYrfJ 3JjtLO6KAVdo2v2Ms98sA I+QYPyFNK2vQraPSsjm41 4WcCxx8zoLPN4 kHLaPOvzFTC1Y87xx3T2K NLpNROqOLB3rEC3cX2ryX cymvjtH9VxiLSaFpK5IUR 3qFHppF9ehRbw eittfO5kEsg+C25OHH8MR BWUCN3SVdo7N1CbMnkeoT I+PU41YQQiFL75nNNiyAH pm4staJv5PlPj WZEfBII0rVckJJads6FtQ LVbY82zcPJtz7Z8GKEeiV efbBAzJrHclCX5aF4nJOc sfjhpj0fdsqbh Dsrst9zkiv26iP91L58kI KaqKAVsFJK5FZWaWYPxvY etlt5byA7rIs0+UIixf1e mu8ngoUf6RyOc XNLqsnYliPlxZWE0s6AkU k01G8AilBgbl6OfTfe9ft 33oUGzv9C6qWT2LTzhXYX toB6rIJvyHdV9 HTOnHrMxwW72iCJxBBblU b4mqHpibDgwDI1gNYAjsh rhJELfhY1jWEFqdMXesLx lCQ4kDCSjuzhj b130JyXoJTQ3EOYwyUGvW 8TebI2oOzUcVJKbIWTjB6 HatQJnRKctY105PIfiUtD 3PKIlbqEnV4Ex WGEscBfeDrC8h1E2Fi8Ig 3YnjkfiUTG0IYumQQM3Uc M2HmWuAlO7E4PlAjm2TGG vhDadFB8qR5Gp ZVZihfpbktmziKB9AJXpQ PWdfF01xHQwQDokDp2vb7 B9t296OAIxLQZtnU88Wq9 udDogMTBwdCBU hT8pcoifd5seljubBiXxS EQoCCa4VKu7OSGwmGdkRa KcXGA7OjN1HSQ5aGSdwY5 xwEyhnvkpgV5u Oyc+K44nbP9gMKX0JHJ6f vjuFTTcwlLvDQ12AP16B6 RyPjwvdGFibGU+PGRpdiB dxMkeNT8zShGj l4zgy8QhNSdzA2XmQPYtF YkbFra0PIIfIZC3bSR9aS 5uZONwULbhw9G4vWY3Y3J ugyGtcv8re1aj UGYbIRzsO67vqOAlr2O4C UOxcPW9EFTdmArkMuWhqO 93Oyc+ZTIacGdyi0KvZot wh2qcc4npaFx1 OvMdGBXtjpMtlIhwYTA0r 8MiEw70C85sUXgnINQlJM FcXQNqKYHppNezyr1feE9 wIi8+PGNvbCB3 vWB4aF5jRRYlFsY7LEefD 513QkFjcSAoOkhaq2dtu5 xyqXy8ZwWbDLUsdmZiaLe nJUH5s9LhNg34 P54aGFymSKAoEKYpKGQpS CBecMakej1txI2mDe9+PC 3ch1fdcu49uZ93aPC+PHR zHKP4aIkwVMcb YILlwK2iPKwqDzU3OQElS vXnyI62xIYcGWrbLb5xcH ohpNhgOC9nEQQvtjysq82 7LxXdx0bbNFYp kIIpERhkSLY1Q26cm6F9Y VZxUVKuANO0hWZ2sG6epI lnbjogbGVmdDsgdmVydGl fPLlnXJlsM213 IHRvcDsnPlBhdGllbnQgT iPyEEn9N6GxIsf2JWDcwS feKU7elFRhXDhlOf5baEm alLoqCC9gBUJi yjtfm104PzNst1nvWWRww QUsFVlqBGF5R58hf7K2CT YlZVHaJSU4aXJ8qW2nfHh nbjogbGVmdDsg kjUfzHijCPxuYOviQ815Q HRvcDsnPkJpcnRoIERhdG E6MC78QQ79gAHdk7T9dDZ 0U4LqBESiikkt qzndmHB6HKNtWACvlL34N i9brJhdJl6pHLJcGNN0WV CroUFlG9WfxM8nFtOsKRI iPZKfR3UksFXy NQpyB396MHmjFeB8IIFxd yMgP0UfRIVfmEalLkE3p7 M3Yp6HY3H5GK56EF30kZZ vr9R8eMY6E2Om XVWrtmiqzcmyqCZ3OEOaJ SGugF47Uc6tnNguSb4aYC XeRAJ4ODGhkMZzL3KqjV3 yOiAjMDAwMDAw J2DxvWFtHMxtC751JFrdI fU1VOFvtpHpV6KbLOWcrF vfRdJ8x2F3Uz2SJAx9MJ3 8CM06hZNah0V0 kUR2B1CbQTNfziidwqqzk HO6GFNnCCMssI22Wk3jhX zwPc2bLOZdJOA4AMJzjTC eY9MeyK2kEjLd QNLtXFDnQ7PdaGXwSEkqC 972YOybTzH0PPVtihMqJ9 PtILScdMetTfC0w0J9Ha6 ZBFZnAA78TYR0 oVN6ZW57RN12K3QtAwqei GFibGU+PHRhYmxlIHdpZH RoPScxMDAlJyBzdHlsZT0 cAw1rVTUpOPUa kGygzPOlLuGzs7ivNLXgQ PerYO6wmDjjR9TdjWY7MH Jrn8t3Bm48F83eP5EqgAC +CAXxlWR1iEZ4 qY7dYsAtHrQ0DMggK865O nNsfIFlEcufg6kdb9cqpA i4DfN9WWPcfuDcjFbeFYA 4h7KpRf41L80i IHdpZHRoPSIxNSUiIHZhb Jifgh6puB9yYt6+PGNvbC M4iDR3zD8bVsZjDmH6QBj hE380KuNbiBOm Dwruv4vni6venOc2XrVvX DUmpwXgqBgjSRB7b3ZoOz 29X7BaqSfdc1DlLfj1mf5 1jRMjj4H3qMU0 K6PcGBArrvwljRLoeQhrZ K5zYOFalwqsMSPhdK2cHW TiU7o1TzMoMfA5ZZbkM4Q vxrQ5DMFcnGZs NTvxDZR5L58er9I2EGXvP LKyPBN0iVW3gL2zqWoxjx ogbGVmdDsgdmVydGljYWw kTRjcF614LCWg sWxtUUSnbQ9bDASwfDYmj OqyKI6eYXLbphiqSdDFBG 2GKGIcMSgJPCOJZDQ6R8I tKrm8AJUvcRjh PG0axIHaSVlnZy2goCvqq QfrIK2oQQOyubhwIMLinV 9mKPEpnRHqkOubEI6ePMC torvzh843AsRz VZF7UKZczWKuT4XkgO3bQ xWvGFBqKYWwA5YyyFXwND jyC055XPbaOhU1QSFvdpI eE9HfHLTfbVup YbB4c3V1Rg0bZO4lXR9nY TZmEN15GO06bERxf5U5jN L5S6BpATScshwtsfszaXD 6MOSbKDXtfY16 sPBoPHakOo0ck5E5z570B JDlSIBvzE77Jw2xcIuaLV CqtZCDkJ6giqzur2izase gIzAwMDAwMDt0 CGh9PRZvrIhlImRbJQQ1D qO8EYH8eCKphI2fmCbdal ugtJ6mPyg+NTkgWWVhcnM 9X3HuVua8QMYe xWlzOU6vqVStJJszEa1vf TtplJmjCP7tHGChedefOI CovK1sQFXnoLZyrTajII1 fUNVkphhxu603 LoRvZWW9YCBnzFKvI3Tsd W6tHaKoXHDuWQTlF1DdcL PrKGyqK180OJwdDeO2HRQ acsHeY5TjPZIx dBjaMiX3u1E4Sr5HQE5ks HC9B2IbJxe4GYOenXfoLN 6osJMwERrhBh0nyBzdqPn aUU2mIIQazdth QEKccE2iXZRlwFBwwTiwN H7rFFNjjfrge314DjAkJG P7GFBtwNCjL7KhwJ5tCbU rRPAbRESvS8Pa eTEpHGtiD881MKbzDfB3A VEqmcBnF0LiHIAwtZjxAf Y6y0P6Bs2QuAQiIPOxOW6 6RI17DP95S8Ji PjwvdGFibGU+PHRhYmxlI HdpZHRoPScxMDAlJyBzdH ecQP6nNj8fAHZpAPZmfQj twCAvWtOkb0ym WCFiFXvbVD9rrNdcR4Slo LH2PEAsc5o7Ml36N24pA9 JvdXA+NJKqoDQ8pHX9mG1 pNtIkZrS4PQet X614TnIfwOBwUbidh5vbk 0ozeTz5RvEyVCZroyIswO hzMPN2i0RgWl94Y73eDTr pZHRoPSIyMCUi BNUwoManco4ubS4yDn0+P RZrjWR7gFH3wC0xNwHhYq A6SKgcT631SuPjnKFzPcu yC68lC9ReaSA+ XEZtQjg1CVNvxJirZH4nk IZoEFutLb0pHKQ8TrClJb HoYKodK7MeOGJbamiohgm wdXQ2NWGiUOZc dO62Bq4feCinTd3zKXUlC PQ1IWUvbUPrL8PhrD3eIz JzTAMiMMYvY1KghPVjQSi kL171UZucKsZ6 VIYxytZdH7JtDMChpRvhP vY6p1E7Rf1QyTjywGZiOM 8lHfAvFVv3O2DtZaf3XVG baJjqUV5rwWWi HDmqAy6egMpckTrxKB8cC MDcducxx232BdZur2qcYY GnbDCfWCdsKYI9S47zh6I 4QOGqGDOnAFX6 xSH2eG9cqEthdsqpwYYfh DsgdmVydGljYWwtYWxpZ2 72KKHkbIngSqYWXvp9F0I zPzo9IUQhwPii ED6ttRQlZZyuTh3swHcpd ZvbLZ8qTBJopyxox220Fx Xez9puHMKgbSLzNEtgKNC 8H55le9C1AAZn LRJrFUE3tXD0eL5haBfxu jogbGVmdDsgdmVydGljYW xrFFbfW692IOUrvFwqDt7 AQtk2P9RgWoz4 VZQkuYiqLJ0lyUIjKFzgE x0soGtlpWxcTO4uESLjgl twc765XkIjz3rhHVJkkBI qVBoyWAD5J25d q1F3MNVyDDOxRPI5cCQ0t Q6jlUilmkqyaHOdeDvpkz UtfChzMOqlELhfC345RHT vcDsnPlBheWVy OjwvdGQ+DF15gx32M6NtO dflGxj0ATOwVLW5pAZ5eQ 5mWEFnNYoue7P6uQL5L0D wrlFkaq4mh7jy YXBz (more content not included)... Normal [facility] Coding Summary.on 12-23-2021 Coding Summary. CD:[id number]:[id number] G h0bWw+PGhlYWQ+JZ3FKIE vY15owKYmiF3EQ5nWUP9X DTJOITJCHD9HSK1lnTM6T KoeX5AhqtRz NtjrvRZzPD43KBk9FRK3v PfiYJzccU5noYEoH4f6Ay VmIL45cX65FBpaDBPiGfQ 3LjZpbjsgbWFy Z2raTlIzkYKfOfe+PHRhY mxlIHdpZHRoPScxMDAlJy WilLkqOA2dFy5qMHOqZPS vbGxhcHNlOiBj i2raRBHuWQcwFW4qhGvrR 5HtyBY1XHUna5a1Sx93rD I+WXUqKBH8fKjxXHsbs72 0KfIqk2eoNQW1 wLNpYKieWYQ9S73on5A6U KOoATGwKOG4mXW9lX8tuO vubrfaN4TbhSLeVkL8TZL 1nXJnsV5efIwm rjgnfR8tPxc+M55IDP5CK ARBWR3VZed8Q8SaCcxexG I+CA99SKDvSS92yDWziAF gy4buvVe5KjEs WCVrHVL1iZnoDRxtm1UmH YPfQ21isTRni4F4NSCsaR theDYlXcLzgFF9eV1sEPf nrtfus6rstayr Pbdhs3ugsz91bJ83S45vI UmmTEHmOSG4AXWmMHEvuH kwqd9ulH9yVf0+TOkmo8y ci9itpVp4SwZm XCIlfeUlhVymKVN1u6ZeN e35M1MovMspq4DvTyl0lh 69zAKru6F5eMX0YOlsQHU wvE3dEWxoOuA4 RPZkBhUkaN58sXDsVCmtO d3ntUckwNukSI1wNGYuve ftDDHkzX5dTBEkeEPzvFx uZQ4sZHUbldqb u750ZuQjVPQ1PKXfsDZsS 8GebT0sTqIgDVXzNFUwY6 BpyCWlPOywS127JVrkWhV 7NLRjvbVfF2Qa QRAepSvoDfE8c3K9Qp3Zg 2UhxwwjSRW4JEiwLAK5Sl KeJwJlCzV2F5SjXvu7XCK qjFgsNQ8qP0Xw TGOmztngjcomoCA0WDJvH HUihA18eRUmYAzfSw9le8 A5s172FYGhMVSemG54Zu2 udDogMTBwdCBU gH5ajsenr5nucljmKsYfL MLhQFg3NGc0RKHnhIyzWi SeTQX9XsW4FSQ7lGVadS5 gtDmassjaoP1e Oyc+N72jjC4uEOQ5MNE8d tznHEEdllTdFB24QD65B3 RyPjwvdGFibGU+PGRpdiB fpWovUE2qYlSy d9xpa5YcYOuzT7JyCHOzR ZrbLpf7WRZsLQO0zHZ1yN 2jQQQoRChmy5V4eKN1W3H kfrScrf1pc7xd OMEzOAspL68bjEOsa3M4Z SVsvCL1QTDsbLdqArCepN 93Oyc+HEDxtOjzg6BbWdj dd3qfc5udaNq6 YdGmVACyhlYedVafFDS0l 2ViPf53A61aUCdxXFNfZR MhQHYyMZZjaYsnlw8khF7 wIi8+PGNvbCB3 lOH0gS2mPYKnGsN6YIhuH 101FwDsyKSoZzdef7rvg9 kuxMa5NcOtVWZfgaVeyDs uMYL5m8TtXz34 R45yWMlnQDDaHWIiJIWxC HMglXfecq0apH2kIz7+PC 6bv5hqrl81cB42nSB+PHR jZPM5sVgwGBio AAYulF7iMLcdQvG5CWFxG jXhtS79xVOiMFyvSn5lpZ ccsUgmBB6cTBLwlssyi82 1HyAgn1wfHOHz rKUrHSfhBIL0K72ha1Y6S RIjSOYfCUU0wYL6tD6xbW lnbjogbGVmdDsgdmVydGl vQEtnTMbfG542 IHRvcDsnPlBhdGllbnQgT nDvYTj1E4ThLuv6EBWdlN zpEZ9npACoDNiaRi8tsQx vuBpgXV4zFJVk opuiw180QmIjy0jcZRMdu EAvTLosYKS1I07bm0Q5YZ ChKXJpPNR6nTC1uZ6wsEw nbjogbGVmdDsg wbHqsYboPAftLWztF448H HRvcDsnPkJpcnRoIERhdG I5NV47GX70eMGqk0J5aBC 0N5GwEWBpemle hrgljRH2IIVaPHFigJ31X b3voGiqMt2oNWAjMGE8YE KneRNcV9QvzT4gHbSgRAX kKCNjK1YrxYDp QIysZ579PVlfKaY6QCBsw yPoW1MpXQAijCgrXnS2b2 Z8Fu5KR2M9CM02PH56tHO oy7O3rXZ1Q9Xx ZHYvmnnlrymrsBH5LSXhL HAhkB42Wh9rnOmcZo1xHT MgSEB8RSDaiEXsW7EtkV1 yOiAjMDAwMDAw N2WhkTYmEHimQ221DAtvN cI0ISRkjeOgI0DiIVKpgY fsNjH0u2K0Qu1ISYq0HY6 5ZI54uJSbe4F0 mST4O4NmUPSwewfsjhapu XH2ALWgNGYlfB42Ek1prU txDu8iBTBfCNP3NMBspYQ dV2HssC8rEvVs HXEhQDTyK3XhxOVdLOirL 853ITxxJbK6RJOlplJbU5 DjLPSmkLhaPcE8q2J7Fb4 WPQPvVO63KYK8 dTO8KL74ID49M8TkHwmkj GFibGU+PHRhYmxlIHdpZH RoPScxMDAlJyBzdHlsZT0 kAr2gWDYnNRKg vEkwxYEsOfRec4msJRVsH TrqFM9weXafR4KoyQU2KH Sth8r2Kr49H11tC9DreRS +XULubIU7aUR2 xC1eHtZcRmC4MWwyZ388A uYaiJFnQphfz5sil1notI s2LwU7XDSczyWwaKiyIEC 4c8EfFm33Y08i IHdpZHRoPSIxNSUiIHZhb Pajie6jzW4iIi9+PGNvbC G7pMH2kE9sZcJsStZ9GZj zT955EkHwjRQk Zpgal3vqs0cyhKh5VlBiX NKgyoTzoTzoKVC0r3LwGd 83W0BahFtuc9WrUxx0rf1 7qGBlx0Z8qKW9 A2UdYVErrphvuAGcqWiqY I0vZSQsreaeMMMkcR8uWN MwC3k6TvSvArR1KDbtP7P mfeN9ZVNpkCNk FXfnIAA6Y14qw4V6GEHaS UQoYKK8eXG5zX7tdGemws ogbGVmdDsgdmVydGljYWw iZYouL146WDTg tJlfMEGvxX1yZYLynMJpb EvoGO2pKWJcnbkoAnYRQF 2UCAJvARfSCESYCFG3P9K yHtu3TEKrvVfp RO3lsLZpMGohKm5tzJpfp QsfEI0rXHZdzvikJCCxsF 2pNPIsvTToiVogSC6vBQV vtdouo567EvMu BHO7LGYyxWOmL3BcwM9uG qSlIEFjLXDiL6DhdLKiSJ zzD129ZMkpMlL9QVRujaA cG7MkUHYegPvu EaJ9r4U9Hq1uPI1cHT3uC TMoAX15IK91fSJta6Z7vZ U5Z3QmBHMdfslemqfosAZ 3ALNnEELruB20 aPAzZVqqRb8ge7S1n174P GTlVXNzvC10Nz5jdWltLA WctJMYeS6uawyyl2mutxd gIzAwMDAwMDt0 HYb0AAWiiCwjHtOcFYP6A mN5VOJ9pXJjwY3dtUwyhc aikF7vKdv+NTkgWWVhcnM 9Q1EcXwk0SHFo nUrzYG0igSCkLBbtKd5il CfaiNqzAI3nRWRughmiEZ VmiR0vDCUkzRBnlNnlWJ5 kRZBxbgrby611 TfPvEBA6LESbqKVlT9Hed G3tZjQkNOWqDKUzR2UpeU RvWJehF889CKydXlG4XAI qgkDjQ9LuYCQo nVarMhD7v0R6Ux3MKH6vu EX2X4ItDgj2KCCliQoqNM 6mtURrEIrgZe0zsErcrLl aSB8hBUNwhoul MSQthK6nAVHnqPEjmMyfG H3lRZNyaokan861NlPfXZ P3FVBlbRAfA0GowE9eCaD eTFWiQYKwL1Id bLWsJFahY657PHyyVxC9C FNxmkJvP5HsSZJdoOwlNg D5p3L1Iw6DbXRfHIToCI8 8EA46WL40S8Uz PjwvdGFibGU+PHRhYmxlI HdpZHRoPScxMDAlJyBzdH myWX9cTp4qXAVgXHVrhJr kgMFyFyYiz6ak QBXvTZtkOQ9kaZmrM0Azd JF4ICCzt2p0Zg05O80zH8 JvdXA+VCRecTJ5bUG1zN0 aImJmEfJ2AJnw F713HzRzrWVaRkvti0pvd 4jivZa7LqZmCELytgQniV imFGW7c2MvYb65T42kDMr pZHRoPSIyMCUi WLYyeLujgy2eqN8sSr6+P CWujZK1tRF1kS4cQhYhRn K5AFzoB976WlGqmPFtRwl cF13mA8YwkLV+ WQWsLpy1UCLssCeoLF1nm DPwHWkiXw0eKMX8FcIoIi MdZDkzG2PjBALommahhck hwOD5TIUqEMPv xB27Yj4vwUusRj8aEZNaO GM4KJYyqMOlU8QckM3iGz BbSFTbUJDdS4MvpHItERx kU671RDncLkA6 LQYspkCkI0OpWYNlkWssB sP6w6P0Uc1RaYkysELdVD 8vAyZmBCy3V0OnHrc6XXG fgAftXG5igAYo AZlyBs8dfVikeLipWO8kB HJwnmnnx172WdNmh6ppLS EbjPPkBKtgGJK6M11fr2B 6EIJyXHZyEFM8 bEQ4zQ0xqSisslqdyGWye DsgdmVydGljYWwtYWxpZ2 10SOIklNjxTtOFJry9N4L aUhr0YXXxvItu AL8omEDpNIgfAp0rjLocn QtaLJ2bAHOjnofqj717Me Pea2esQHAdnGZfTSnqKOS 6E03sd2Y2IIEr KROmJJG6qTL6oW1qiJhhj jogbGVmdDsgdmVydGljYW iuYWamW387FRShaRmuWv2 FKtd6I4FhIrj1 VUWicEdmFJ2fnMRcCDkhS l9xpKhgkUqmOP6fBXDizq pkj660KsSpp5jnAXFwuMV eQTfjGNF8D87g c8P4NOXuURKpZHL5sAC5l D7wiJmuxxxyzARnyEmuay EnaPvcRKdsKPioI890XMX vcDsnPlBheWVy OjwvdGQ+FO25ba67W0VuA jzoDey4FQNpGQX5dSS1pL 2qVWXvTIpdh1L6nXZ1T3S injUojf4if6vj YXBz (more content not included)... Normal [facility] XR Spine Cervical 2 or 3 Vie [...] M.D. Transcribed by: CAITY Technologist: MARY BETH [facility] Consent for Treatmenton 12-04 Consent for Treatment [id number]# 1.00CD:127 [facility] Consent for Treatment [id number]#1 .00CD:127 [facility] Consultation Noteon 12-21-19 Consultation Note Patient: [...] has, # 60 tab(s), Refills(s) 0, Pharmacy: [facility]/pharmacy #[id number], 166.8, cm, 10/11/21 14:46:00 EST, Height/Length [...] Oral, Daily, Prophylaxis fluticasone 0.05 mg/inh Nasal [place]: 1 spray(s), Nasal, Daily, Refill(s) 0, Allergy [...] list: All Problems Palpitations / SNOMED CT 803684572 / Confirmed 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 / Confirmed Hypertension / SNOMED CT 0820727264 / Confirmed Anxiety / SNOMED CT 26107311 / Confirmed Lumbar disc disease / SNOMED CT 7319039422 / Confirmed Lumbar radiculopathy / SNOMED CT 869845410 / Confirmed Chronic gastritis / SNOMED CT 04204214 / Confirmed Migraines / SNOMED CT 18722465 / Confirmed Insomnia / SNOMED CT 393388195 / Confirmed Colon polyp / SNOMED CT 430515971 / Confirmed Chronic leg pain / SNOMED CT 514289111 / Confirmed Laxative abuse / SNOMED CT 156692192 / Confirmed Chronic cluster headache / SNOMED CT 069740606 / Confirmed Vitamin D deficiency / SNOMED CT 35272124 / Confirmed Hyperlipemia / SNOMED CT 53597207 / Confirmed Osteoporosis / SNOMED CT 096272093 / Confirmed 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 Normal [facility] Comment on above: Result Comment: Elec tronically Signed By: Sophy Rush PA-C\.br\Date and Time Signed: 12/20/21 12:48 EDT\.br\Electronically Co-Signed By: Derick Meza MD\.br\Date and Time Co-Signed: 12/27/21 07:59 EDT Office/Clinic Note-Physician on 12-20-2021 Office/Clinic Note-Physician [id number]# 1.00CD:127 [facility] Orders Officeon 12-20-2021 Orders Office [id number]# 1.00CD:127 [facility] Physician Orderon 12-20-2021 Physician Order [id number]#1 .00CD:127 [facility] Coding Summary.on 11-09-2021 Coding Summary. CD:[id number]:5381016I G h0bWw+PGhlYWQ+MB7VZRV aS84xkCTjvU7VE4oLDH5W TYLZAEKNCM2EAA5dgAB9C BybS8YqyjGt WgglpOKqNF05EKl7VRV9p PerTDpcbC8deCHjP1o4Hr RlMT35zL41TSsfRUSlBxY 3LjZpbjsgbWFy D7hbGjPceGPtJpm+PHRhY mxlIHdpZHRoPScxMDAlJy GurVloJF1xRp2tIOBoEUZ vbGxhcHNlOiBj c2cvLBMxKQfvDL1ahTwiL 1XscCS9TEHzv7p2Or85uN I+GXUyVFY8iLynKKhej87 1YuUcy6ojJRI0 zOIqWGixKEW9S31cw6A3H FQjYNYnSVJ9bTA6qT0yjI fekvhaO2OncURtGgN4VCA 7tNHjqT0qlKnh nhwiqF4tXoc+D85BYY5XM COHLC5ZImr7D6CpIdeinR I+KW46OXWsNO74yJJuoSU yz4qcvLr8PpHn SIRwKEE8uVpoXEmsd3CfY SNhP07opFEze3K0PTItwZ prhQLyJsHgcBR5tE1eDLq gqtlda5izdjtc Laseu3mnfg09gA11A49mO SpjUZPiFNO2RIBxBYYmyX jddb0ejI7oAa7+YQpzx7z df5qzoNn7AyKf UCEzsaAnwPhbVBI5v1EpG s46N9TwjHvwf6ChVzz4co 66bKBgn4G3dCF5CTfvXQN imT1gHGiuOdP2 UPNoEzHgiV18qOYhQGatO i8auCfvwJcuHQ8bDKGsya rnVLEtkW4kDPPttRWlrUu jSA1fHXMtzmlo w396XjQqPOC3DKElbFJpN 0LehG8fDwUwMMSjKBWyF0 NsjLTcPFhmK281CTtqWlH 2UWZxinKvE1Cx JCJcdLysWtU5i4Y2Dg5Xx 3AttyrvPRG7UAsrKPK0Fp A2FoPlZiG0T3BuIyq0QEI ccHrvNH8xP0Fm UAOuijchokzyxYT3WILdA OAlnO31eGWhZJfqQj6it0 Z5x971TKUjHRQdpB73Jr9 udDogMTBwdCBU fY9foybzp2tmdzrfQvDaX EVuREn1OHg3MJTauSuhNv VkJMB2DdJ5RCT5oASrzC8 joBqchatbnF6n Oyc+F26dbH9pMWB9ZBE6m usvLFUhmpLxCX87YB90H5 RyPjwvdGFibGU+PGRpdiB ocMtmFU9vTfMr s7mrb4TbTAxhU5MlTBUeC VfiNjx6STXtCES5mAS1eO 4mGSNqEWjbv1T9fZR4B1E hapAkmz1pp5yt TVHwVIvnC63qhJRym6J6J PViyPG4WRJsfFhhAuSuoM 93Oyc+YVAhhVmbs1YjZex eh9inv8kxqVb7 EnKpEQMfjoQkpHdiUDK0a 1TvXr26M77hQAhiTDAnSS MbGJWjSWOwoLbqph7wnX6 wIi8+PGNvbCB3 yBL1xF5sRNAeFyE0UKklM 865OdCvtNJlDcfwd3tmd1 vjaOl5NmSkERAtrkHemAq oVUL0j4BfGq74 N75sTAbcOPGlPZViPOFcJ ZAzaYxgfb2piN5rLl3+PC 5vt7dydk80hN00gOC+PHR pTXN7tXfiQKti MQJdiV1mHYyeYdV0YGEnR eJbiP95eXDrEBcyBm2daU mnbYzcNK3iINJhgevve17 0WdEls2qaOEMi oCYrEWueLLG1Z15bm7H4C HBcUSKkZXR1tVG3dI3brN lnbjogbGVmdDsgdmVydGl uIBisXNbtC962 IHRvcDsnPlBhdGllbnQgT sRyEZh2E0NlRxx3TURonG mpGT5wcYSdMHbwUj4kdQr lvAsqUQ9bORIv kwtsb593NkUac1jaCENse TGmWScwTPI6M37km1G2UI DhFJHuIAW1vXT6pE3gyZj nbjogbGVmdDsg jdUxhBdrKAzaBXehA827V HRvcDsnPkJpcnRoIERhdG Q9AB71MA60kUMvu3V0hPJ 3B6MhBMUuhqqf snnexCV9TDHoRLQsfW80L r2npZuwJl2bGWNoMER3ZW MmsWOjI4QblE6uKfRcEFX eODFkG7FevJWf HCxaB043LSigDsM1JFXqu rHrZ8PlAAMncMzyBmN9y5 F7Iu9CQ7X2QK89PU24pUD ip4G7xVO3E5Op INNnmgmtoxawvOU7TPFuN QAlhD84Ig8kdDxnCo7aMM CuKVW5TRHbgEWqX2TcaA2 yOiAjMDAwMDAw B9LmhJQsQIqeA151QKkuZ mS3UTFipmTrY0ScOZSrhJ vxXyH2g2H4Rh8RJVg5MF8 2GE46gEEdz7Y2 wVY8W1IkUJPgktsqjisva BJ1VJTvXCBbvB78Yx3frL ujGm3eQGUcOIC7IZKmjFA vU3KzmS3vMpQl NFOiEYQmZ7DzvYTeCBusK 856WZohJbU1LBRrlnWuR2 VdVGCswRgcVhV9a3G3St5 AVXRuBZ27NOS3 zOA5BP04JL46F0KnJsfam GFibGU+PHRhYmxlIHdpZH RoPScxMDAlJyBzdHlsZT0 kIe3mDXHdPRTy cUdujJVdVvEdd6vpQHXmH MrxFB2toUbmD7LvqAF3SA Kos3u0Jl60R29hP7CnnVN +UPVdcZH3dYQ2 lK4lZxHfJaC3DYaeK505N mVedSDhDdrwy6dfl1yyaQ g7BrN0XATwqiAxkZqkGDK 3b6QyQh68G06g IHdpZHRoPSIxNSUiIHZhb Wtxhq7ihK5yBn9+PGNvbC W8oPM3fB7tYzUgBsL9KHr nT678MqYfnKPj Mvegs5cfn8gnmSm2WhTlD ZPbddXyjKamZXN6p0PmEq 58X3CejSbrc0TmJdb5gj1 4nUWwr7N9kXS1 T6OiIRIbygxovUYadQniS P3eLBOqqmqeDDPeaO4bUM CrH0j8DkHeKjW7GJzoU8P opoP5AGGimXKv UDhrLSH8P54zf5G7XERjN BHvJRK4dNT0wO2dlEjdrm ogbGVmdDsgdmVydGljYWw iKErtA965BCGo zJpmANExfN5hXMXikUCuf PauPO4pDCCzlcwbUeCKPE 5PDTCsHWzYENYIVAC9U1U eNne5QEVeaSsg NF4shKGrVEsrHh8vsKtjm BrxGM2mDIEnkfweEXEbkO 3zKGAfxJImdIhmRU6nIHH vzhyuf239IqFo HUY2EIOgbWWxR7UieG3kH jPrZQNvSLUwY2ThwMNvOD dgB212HCgyXfQ4FJRgnbG uT6RgSYEvhSxz VbW0p0G2Ax6rHT3aSH4eV XXdDH69VC06yMWmg1Z2hM E4R8DqHZYyzjazgjvstHI 8IZWoBCFalZ75 nQBlGSstLt3ft3G5f613D PAzRURmlE57Cq7koMnmDL NraTLCnV1adxxex3mtzcp gIzAwMDAwMDt0 LGt6PVZafKhgEnGdUIK5J hE6IIS7dPSfcY0hqEyzsg xfyA5sWur+NTkgWWVhcnM 3K5RyIux2AHJy mAsePZ4kqADlINstUy6eh OdvoIzwSW9bZRGlnsvnXD UxzI3wNMMxnGCftZplWI8 qVUQekkerq239 LoHsITX1SQEbnHNiG8Gqr N1gAsVzSIQvZNHtR4QgjH IpFDrxJ713ERqkLyX6RXE pboXgD3BuSXSh vGhiRmZ0c9G0En9GCM5sb HR3M9ZtXdu6VUQgdZlaVI 2hdWRzBNivAw7sqKapxEa sIO1pUWSepwcj VXBmoI4fRLFibRSdfVcnT V6qURQzmcjfy813MsQbXU M4NQHiaRNiY7RizH6vIkF nMMGjJDFrZ2Ju iVJhOPzpQ060TQwjXbK1H OSxbmVkX2HfFOAyrJcnMa A5o7B7Dz3DgTFiYPNrFU3 5YT32RP74T4Is PjwvdGFibGU+PHRhYmxlI HdpZHRoPScxMDAlJyBzdH vrUW9mCl4lWWJpDXAdwEi ajOXeXiPso8fx BINgEHbmID3ptCiwZ2Kjn BR1HWEfp5a3Vo81E71kG6 JvdXA+CKDuqMF8bHF8gI2 qWyPgJdP1RQbp B805NvHwpOGfOjzye5kyu 5myaWt4AwTiVDSuemVeuE ooFQZ2j7NoUh27D75pWMp pZHRoPSIyMCUi ZQKmyLfugz4ihL5kYt2+P HAvgWT2zUF8rS1zTlVfRm Z4KKloN854NbGmoJVdSyr rB93zA9XurHR+ RDQlCln9LGXxiYwqPY4cf LUiXJiuOv4tZSK7FqRmZz YxZYjzT9GvVWEbuzpyukc upBW5IKFvVUAq uA54Sn3ijScjXd3rSBDxU KR8HHXctXLpB8SvhB5wUp RzKNLiFEQpK2SivVUqNJr hJ082QHpfGaY1 HTTsfrKuN4EtFAXjkAxbW tU5v3H3Mr7VjZiwoLOiFO 0hKvOqJWx7M0BrHnk2QIO vyRvlFU4ozVCz YTqaFo0fdHlecAwrHD1xX NStwcmbo112GkWpn6jkOQ WgpJBsPRtkNWS2L59pm2K 7IXBwOGGoSKK3 vVZ6yR5yhDckxphakCLgl DsgdmVydGljYWwtYWxpZ2 72XLBisVgyJtTGXsa5Y9B kTgk4QUQkpWuv MY5atQXqDMdsRu6jfFwad VxqTT9cOSKjtlguf378Ev Dgc1voIWSmwBErCBhsCWK 0D86zx6K7AEVg FGOyKMW8gMB7dR4aqSxbi jogbGVmdDsgdmVydGljYW cqSRskB902OPLmoVevAh6 HGoa4Z6OfKnu5 TKWmiBhaFQ9yrONsPPmjR y2kdAuuuEryYX3zQKAaaw bul584BqDbt8uoEZManKQ iPEflUJH3F50s j7D2NGAjTZVtLKL5dXB3z M6toGeczlbrhQCcfAhegd FsnOqnWIdxFTydS564PMB vcDsnPlBheWVy OjwvdGQ+QR59gp70W4XeX wugWrr9BGWyJSB6qFW4jS 4lZVSlZDxpy0F1vKJ6J2G umrJaag2ay1jv YXBz (more content not included)... [facility] Coding Summary. CD:[id number]:[id number] G h0bWw+PGhlYWQ+WZ7ZVPW xB38ceCZuqG1EH5lZPC7R WLPSIKECGM8RNP0fnMK3Y MpsQ9OarkNo ZumumDNuSH71GCe6OJZ5o DjwINzazQ3csBVzC2h8Lg UnXS79jB51JTxuFYYqKhJ 3LjZpbjsgbWFy T0kyLyPsxCPkKvt+PHRhY mxlIHdpZHRoPScxMDAlJy GnySgjAP2sUu1yIUKaQVZ vbGxhcHNlOiBj y3byNFDgUAcyZV8jgDkbS 2GpqXR5ARCjb8r3Qn81gX I+COXqCSU7oCksPWkvp40 8RwYlp4esJQM2 uGEuJDnrDHV3J77nb1N5P FOvNGVjHLR4tKT7tD1siD rcexedI4BpfFWaQyU7JXG 6aXVssG2okRmd otkotG2dCtk+N58CAQ6CZ FXPUK5JGfu0E9StOhilvF I+UK22FZPlRD79vYNwiBY iz1ymhFp8XeJm CTYuMLA9zAloDRmfp1KsC YOvZ75jnQWrq3J6ZEZtcU sbfSYxGvBzkFS7sY1yUFo dkxnag4qjzxbo Hqfbr9iixq80bL68E29yR SkrAJWfVJY3NUGsEARzqD sowk3ikR0uMn6+BEnuh1s nz8ynjBy9HtUp FVJwemLbpKneZRC8f3XyJ p99V0AnlPiia0JoFmm5wp 08pCPlw1J6hVT8IDuqUHU grW5qRAboIyK9 GWSnJhNeqK17lLQrCAfyZ t6ivGqtmVhwRI6tFFHhpl dzTICquJ9aVXMkdWVjuOz sNV4mMNUuplec n725AtUjPOH1NDQqwNSfS 5UjaA6xAgKoRFGaDWGkK5 LtlRXjDLdeN211HKyxBsX 5BZWdnrYhP6Oq IILvkFckUiW2u3M4Ah0Eo 7GhjfruLJD5BJecMHQ1Ky G8NiDdYgM3L1LaKln3FMN cwRgjXP6uQ3Qt XVSbsifuoyuxsOZ6HCPpR TGygJ02iUDvTBayKw7pq1 Z7s208FGRpIAUzmZ15Vv5 udDogMTBwdCBU bK3ctkhow1opostiMjKsV RGjKLf5XQr6BDQjyZrcBm HiTPT3BwL2PBS7iTBlvP0 osHyjgqrvwP2k Oyc+M98hmA0xOXG1MFB6t dsrUTBskxVnWM96DK14R7 RyPjwvdGFibGU+PGRpdiB prDffSL0bAlYy u1nyb8HqPHffV1FsBBGlR ByiZtg7SFDjNFL5sGT5uD 0rJTKeKDpay6F5eHA3V1G cmnGgtj2ov0zv JNZoOYemZ15yjKCpr8B8S DSesNX4GDFtgYpuMsIpsI 93Oyc+KUEezHeaq3JrUue ez0hce0fykUx6 AlLjPTMqsvQgcOdrNEE9h 3GmTh93R68hDQrmAZJqSJ SiCFRlYIDmvKphpj1gdU4 wIi8+PGNvbCB3 dBW8lB4iRSFfAzD1HIhqV 886AmTuaUJhBrgbr6aob8 qyhYk0LpUqOBXqgtXbrWx wGVA0b0WqUl79 C85gQSskYZAqULJtHUEyQ SXnpMkkcf7mgO9mXk3+PC 3ct9dtly96aC69yMT+PHR yFND9ePkcAYbl YZPucN5jJKirAlY2DBZvW qFolN93sUFiNTnbHb6brG dgqAmuCS8nQIBnahohu87 6KlZei0xtUQHl hLMeLQahPDJ8N02me6D5I OEgTRTuBRI9xUT8bF9aaW lnbjogbGVmdDsgdmVydGl xMZaiZVwjN807 IHRvcDsnPlBhdGllbnQgT gNtKIk3T1QnElr5KOAwjE tmZM3kpROrBXbzZl5jhYo urCtpBC1zTJUs lrziz025RdDgh8anTZHlt LXcLLqwCIA2A48hz1V6OR PvAOUvAWC4gQP9cN7xdKj nbjogbGVmdDsg tuXhdYwdOHtvPKzpT473E HRvcDsnPkJpcnRoIERhdG H7FH78GW93dSPhy9U8kBY 2L3QbZQGfhnxa stobdRW5AJRrUDBjbW82F l2krMulYv6eSLAkZOS9HK CanZBiW4SlnT8oIoYfKZK wERJvS2XsiDSc AIzgO844ASupKbI5ASKeg bByS4ToKRVxoYpfVbL4u3 L0Kc6OJ3R2WA81WL68uXP er9L9hAV4J2Vt WCFopubjlqkjoSS4HQYpJ DDcmB30Gt4tnWxrZd6tRS JvSPS4MGWavXVfC7PwbL4 yOiAjMDAwMDAw H3SwvLYqIZhlW022VYxoC dO4TSUixmCpG2HkVBTrsE muFxM6w8C6Io3TTJm6UI3 1XR73wHAcz0Q4 eWK1L5KjNKHjixtnznaco VN7EMIcAVNysZ15Kb6unB keQo1zBPDeRSZ4LHIpuID fD6NqaR8pBkWs ZEFeEOChZ1TncVQxASnbO 951PAujObB3QGQpxqKgS8 AhATCstIxnCvU5i7F3Oz2 JSUDqYG32LPR1 dIC8OP32OK95D4AlMbipr GFibGU+PHRhYmxlIHdpZH RoPScxMDAlJyBzdHlsZT0 eSp7lFTBiJZAp fNjqlODcKzCwu4gtIQSrK NrwYE2flEdsY6DqbZZ5EP Aue8c0Lt77V38dO9RbiMT +LKGbmRS9xXA5 tM2zPzNxElY7NNrcG568O tTnkWZxJslbq7jva1imcR m2WdE0OXIdanQhhOeoUNA 1p1DhOj69N78i IHdpZHRoPSIxNSUiIHZhb Hkkbe7yvH4zZr6+PGNvbC I6hML2sG8sTlKyCyD7TPo yK106NdNhfLXn Ekslr4xmk8zhvJr0MrNhP ZVojoUbbGmmYFS5k7WpZb 98I5WetWbil4DgDuo1rn8 6gKKfg9H8sDX7 J8YeIPGjbzhupENkxGdeG L4aOFZjtmtxZBTbcZ2iQM XoT2a6MlScXbZ4BWlyC8E brlV0IJWcyNVv MDvgXYQ4B94wq3W2CRJuZ GStBJL3bZN4jM7ueGgeuh ogbGVmdDsgdmVydGljYWw vOIqgX174PDMu sPcxCZDtxL4xQTVcqNAvf GzkHL3sTHXadwuaFqDYCB 2BIKOhQYjTFZOYGTY5X8C yIkm3DKZmlXxl JF2omNXpTNjfAr0gjIypg YdfHY1jTXGexnbpRHQabP 4zRUGgrNZkfDivRE7fWAT tycwam894AfQc AIJ2RRIftGTkN4EhvU7gF dGyGNPiMXYxT0XfaJFxDQ zzK916MQxyHqD2SZOehoZ iE1QtVXGfqAgr CvQ7c5N5Po4eGL8kPP0vV XNyIV47UG83mLIwk0R9pK L6A9XuNFBgggrvawmthJC 2HIYqUFGaqM86 pVDlHMiwHf9yb4Z8g277P XYgSFSecG84Do7rkIlaZK IsjOSTgQ9etwgys7ntrfb gIzAwMDAwMDt0 KPn5FRRwjUvfEtPtQTH7L xM7LFB5fUSncD9dkSatos aljT8gHfm+NTkgWWVhcnM 5Q8YoIbp2BQZg rMjxZH3aaRVdJAruZm6bk ZhmcXpvEO4qDMRmlqbpTN ThsI4qPEIpvVCsaDijIM2 yADSzkpsbz733 KqViJMB9ACVycBThB7Ukm V0nChXuBOCgGXKbF7QzwP DgPVhuQ326JBngAjC9PDN dueIfQ0BdPPMp xIshKkU9g9V1Ue6ILM8xk EX4B5NaElq3FGMluLvbIC 3bfRSvAIlyGb3ntVdxeZt nQL5vDMUkwyle PUDtyJ8cSDUhbCKekZnrX J2aAVMjcgcsp488HhWsGP G9OEHdyTBaQ7GvbC0vOaN jAYBwUFVvE1Zy rTJmPTwdG258IMgrYoD9I XLfplHlN2FuOUTthHeoOy B7c3T3Qi4OeQJsKQLqTM7 1ZI62HR42F1Qa PjwvdGFibGU+PHRhYmxlI HdpZHRoPScxMDAlJyBzdH dbZV5mTx4rMJQuSJFaoBk syFZdEtHka3in ZKScMVpsVX0wtQubE8Zih AF4ENHyt1c1Ek85E14vE6 JvdXA+BDItrIX5dUM8cM2 mPzCfGkP5PPmp T144IjCwxMHpUoycv4aic 0gtdTu9LmPlXCEdjhLbgB joBUO7p7FaYh79T77qZQk pZHRoPSIyMCUi YUIabNhtqu9knD2qQp9+P GAapJF5zJR9hW7hJdPlMq R2KYczF815XrXkoNHjVtn xO17gG3CioNG+ CCTzSsa4CTMgaLdhWT0wo MXiPThoMd9bNOO3FtOwJq JuBRiqN7NdYRWdbqjdvmt qdKN6VLBgMRGs cX36Fi5omGvkQh3iUBAyM CX9XVKadHHiJ3OdpP8lOq EhYZFpEUWaM1LmiIYjJUz oF344JFuyAjI0 XCKarwGoC6PjINExsHeaQ xK4s9L2Cm1QjGmhnOMzIN 6yToQkGPk0E6OsJdc1UPN glCmxXN8gmHHp RPbuPh0buJjdcBljQF4qN WHgpvamn831YeWru6gzBM RyeQJnFWizZKM3M12sz5K 5MYZoXZTfOZL5 hKP3aL9tsBepoumfmCQws DsgdmVydGljYWwtYWxpZ2 01TJUlgRunDgVIQzh3O2K gWzg2DXQxeUsi IJ8aiDYpUKmgFf8fyYdef XxgUP3nYQEnuwflc093Ro Xhv7qwJUYguTJtINijFHJ 3F22ye9I4ZMUv BJSkTXT4wCW3fX1mcMiyl jogbGVmdDsgdmVydGljYW kdRYapU593IMHguQbgHz2 ZTsl6X8OpLbd7 NEZahLriPM9ggCYtFOxvG b4mdAbknFkwMJ3cDVGyks gpi157YwMtw2voXMWloLC nAVynLFA4N22z a1O0WXMhSODzEGC5iNT9c L6qdDvhilwfhUVybIjpew OseObfVJeqHOcqT982KNX vcDsnPlBheWVy OjwvdGQ+RA33ow76L4BnA rukWbh3QEQhEZM4nAS6gK 0iPVGlGYnud3Z6vKP3W0L ylyTkhv4hj8fs YXBz (more content not included)... [facility] Coding Summary.on 11-01-2021 Coding Summary. CD:[id number]:[id number] G h0bWw+PGhlYWQ+XF0OWBB fK77gkATzzL7XM5bAZH9B RGZBNXBVFW9MZQ0zaCN3A ZlpB5IqqoJj AflesXYyON56EDp5BEO0v QnnIQwymC0miCEcJ9s6Uf XhOB33iD95AIbnAHNqQfY 3LjZpbjsgbWFy Z4ktQdBrsAHgZmv+PHRhY mxlIHdpZHRoPScxMDAlJy FbfBggDG3xPf7cEPJaKFC vbGxhcHNlOiBj h1zkBNBiNXcuES6imPkkO 8LffPZ1ROBie7f1Jx43nG I+BIXaSFO2rEktHVmeb50 9RvBgs9edEYN4 pTUxEFklWFK2Y36kc7S7K FBrVYVwSFE5yYI2qU0cbD utolgqI8XuePCvKjW0QGT 3qVYliH5vbTjz qbevwC9yZub+U60WGW5BQ RLQCI4VZoy0Z0FeUrqgjM I+GB39BQFgLE97kQQnsGA gz6kpsXn6RnJt KQPlQGZ2mYmyZFalw9KwJ EDdU35nhHHax1P9ACWpiY zheFZtIrIpwLA3gR3qMKh efkija7xenqtq Kyrta8dqyj07sU83Y51tH KlyWOIsDNU6SEUsQVRykO lgsb0oqS2uDf1+KXfdk9d rb8ojrHo3KdZj QTBqlwNqtYkwZBH9f5QbX k46E1FbnYvle7TkCjc1em 13iBCzk2Y1pGP2LFajXJB bfF3ySFsoScY3 AITqJdAirB86kBRxWGxdA m6mwJutrEewEE7eGRHsgy kwEMHppN4xXVNfwAAjlGx mAM9oJPMdcjyx j358IsIaLTA9XMPsiHAcM 7NiqA5yPoPlKDMoEOHbA4 SrgUAmRLflM891ROmxLkX 6PWZikeZbW2Vm CYAybWetNdS2m2F3Pl0Ef 3NogagiZUD9MHndNTJgNx I6NfPvHtX6M9ZwPnw3IQN juDgsLD0bJ4Me GPDdhsdnmvizuPI7TDHeP ZMkvC94kXIyATpsAi4ux8 B4m863TMIaRYMbuS90On4 udDogMTBwdCBU pT9egmeay4lcitdqNcSbU EXrNUx2ZHb7XRLcpHkxYu ChFUW3PmK6XOQ9dNQuaT8 cbVtuqjtpfK0v Oyc+I51suJ5aEPS4AHE8n asuMJMdaoUwXT40UI78Z0 RyPjwvdGFibGU+PGRpdiB vmGkjSZ1tAzMf h7hhv0YqWXrgV4SuNWUlG TrpToe6YJJoTLZ6rUV5jV 2kJYPmGDmjc0E1vDV3C6J urfCpzm0hd6lw THBfNWrpC19ihBBkr0V9W KTrtLL9MRLclMbcRaGxeT 93Oyc+TPRpeByyx3BgGud ti4kew7cwoIs5 WlRcUZCbgsVwuJqbPHS6h 6NgXk18Q02dELfaRJAcEF HkOORdOOMksBvjmx5fxU0 wIi8+PGNvbCB3 bLY2dA6zZQThYqT2QVhzF 115FcZwnDWnUlqgf9has0 hcgIr9VcWfEVWoefUodTg fFNN3l9DqIq23 W10vOFwyGEErVNMlMTTaA VQfjBwibq9icG2iTb5+PC [id number]+PHR uAIK4bOrvNQrc QMPxiR8nJItpJoC3AWDsP iSscJ17gEEhGHlvMk0kvA bduLdlHV0hCLMtpfyec33 1EtFka1loKKFt mTLrKIgoVQY3O43nw2S2F ROwAYGfHYQ5eKU1gI1hbT lnbjogbGVmdDsgdmVydGl gITeuYJlcR942 IHRvcDsnPlBhdGllbnQgT xViFWk7X8IoTlh1XDSfqA cwGL3wkWErMCydYr2jjCj izTmlCT9kPTLz uibkm295MiNjv1zpBVNqh ESrFQccNOP8T40wy6Q5DM IoVUEvHYV3uHY1dP9hkRf nbjogbGVmdDsg tdTooSuhACmhCMuvQ813Q HRvcDsnPkJpcnRoIERhdG I0QQ26HV44bVSrn9W7iMS 5O6LqEHDfqbcn fvmzyZT4YFMhAOPnyU83D u9qsZclNd0tSBVjDWT0XC UjaCBwS6ZfkF8cHgVaLRU qFORwG1MyaRMp FHwnU105HQnbEsD7WGQav rStJ5JmIRVejEucRmO1f2 T9Uw2EW8N5GJ95SJ35vRF al0D8gXW2M1Ry JXXoscfavznfnYW9YTGdU MNmkT91Jz3tgSfmOb3yKZ SiKEZ4RGQbmXDcN7GjfX8 yOiAjMDAwMDAw A3EfcEDcYEvgP254HSxgF jE3RGApgnMjX4AdKBYkpV sjLaQ3n4W4Vq3AMLz0BO7 0RS26gQJpc4U6 eYO4F2HnMHFayirfqucdc GC5HZLzJWEhgV99Hh5mcJ xqLx7cKTEuPEJ6ATZmaFU hD2OiwX3yAaOz BRMjVYYwQ3BrmZEkECjkJ 163XOeaPtA6TTTzxmFcK3 GyZTHysSuzSjP5m6S2Er3 RMRJfEC42JWE5 eLK1XP64LQ65Y0WzSaskn GFibGU+PHRhYmxlIHdpZH RoPScxMDAlJyBzdHlsZT0 jZf0fELXaWQCo jPvifMPtItQma1cxTZLlG PudUE1spTekJ5NqbVU0PL Bth2j4Ef96J22oP6CjvNA +ZIMsnVZ3qCX9 rB8xIjXfIuP5HIshM215W sWeeZDsPclbw6mdf8grrF u5AaX8DOUlrqGduVsyRJF 8t2DsJq83A50y IHdpZHRoPSIxNSUiIHZhb Xsspb9ldW1tRr9+PGNvbC G1mAZ3jY1rVaAlSdK3KGz gJ759YxNvdOEy Dofvs8wqq9gvtFk5TyYhE RYpecGkwTouXLW1s6IuKp 13A6IiuTrjk6PiRfe6xr3 3zYUwi7L1yAQ1 R4PuICLpjwtwzEBpbUenH S6kPAIdxllkDVQmvC0pJQ BnN2l2FmMjUoL2OKzrB7D rwaS2CPUwaPMg IJtaMIF5L72zx9Y2AYWaB IHaVXL1sSF3lX5cyXoeoe ogbGVmdDsgdmVydGljYWw dTEwfF373JVZq bBzmFMOvvE7nHMWooVBip GxyPW5bHKQmncwpOqYGYK 1PRTTbSQeQBJSMILX9M4A zBqu2SIMwhSls WH0utQAvPHmvEe0jgZpnf EvsAG2oPNRvefczGQUdnX 7tHBOaoHQetZskHV7kOPL gdlsee687EuLv OOT8UTMdxWJxZ2XqcA7tN vZfHFZcQZHqE5SylFIvYP crH350NGxtBrS8QFRixcE iN7BoDJDbeWis ZrQ1e2Y9Uv2yHU3rBG9dC NKkME55JE67aYHwc7C9jH L4S6UeFWTejehvqujnrLC 2LJMzWEBmhP88 yZNyXRziNp4se3P4v366S WBbESSnaP19Jf6bgTreDH FrwRQCdK2oriudt0txhkc gIzAwMDAwMDt0 CLa4DJCdeAlmVtSyWGD6L yA9GAC7kNAbiA1vyYeqls hllT4zOaw+NTkgWWVhcnM 4M9YfAdr7IQUv nKpkGW0nuPWcFXmzYf4gx WxnvUmjHG4hTUNkhirxCE KtdN7bJVTgqODjpZcsXJ3 hPCUzbeglp293 WyWqDGK6SVVfcXRcH5Ybm P8pJyOhURGrEFBqA7EgyF EnLAonW673TJdnCxW2AQN nouHmC0IhOTBw nPnfTcQ2b2A4Ij6PPC2ya LN0A7WrSpb3SMOrrBwpMR 0iqYMsRWjjSu8vfObocZk eMR3uMBZfsefg YKBpdX4rDNNfnDFdpYevV H4aHZVehtbdk976ZvGuGU O7UAConJEdD5GulT4eKqR zALZqDBWeW8Dy dIKrTPdvF441HZmyTvC5G SKsdoOxB7PyDUSecGhmGl D9d0Q5Ka0SfWOxKQOiKI1 2GX78KB01S2Ny PjwvdGFibGU+PHRhYmxlI HdpZHRoPScxMDAlJyBzdH daOV1zIc2pZQRxLVOfnTv toIYnLbMhl8jg IDAmSAscMO9ydVhlJ7Yjy MU6VSRns1b8Ii43C77qJ4 JvdXA+PYVqiDU2eYA0hC2 vHpXlRrO4WEns G572FqFtrNGkZmarx0oyk 9zrvXm6GxNyCXEcrpIsqT zhJWH4w0UuKy86K75cIOe pZHRoPSIyMCUi CANhcPjvwq7wqZ4gPx0+P IWrtCO4hQU7iL7qClLkVp X8SKypK348ExUerMTrKdl dP78tJ8PfkON+ KYFrIon6STLfyVtmJR7fw YNhONcfHr5lDVA4ZmTiZx DePBxcX8EgDJYhvzfnmkn biLY9NDVmPCSd dP03Ad1idOepKx1rCOHeO WW1YYTqzDByD2VrnP8sRa CdTVHcGSScD3BgvBOhLRu wC712NOuxStJ4 UAMrxuVaQ6KbRPJnkSngE eY3f1R2Kb0KwRqefADdWM 4gNnCaYNx4Q2MlUvu6BLF wzSggVA8ibIEk CPwqGb0izGsvxNzeKB5wC GSjgzkwc755NwGyf4wmLX PvnQAhSWdjCKJ7B44ol0M 1FNWrMJLbUTK1 aMF2vB0kxRoehewxxOCnw DsgdmVydGljYWwtYWxpZ2 83ECQaeZnvRdRBTfg4R1V yMxb0YGGvuTuf CI0lnOBdXHupBr7tiEbuf UrnRQ3lMZHyckwpw583Jl Pit3isZAUkvSHjRRdsLVI 3H11iz1G9RQHx GXNcKUK9sSX7aL4jiUhes jogbGVmdDsgdmVydGljYW jrDDrxB552CADmgQiqBg9 ETbb4Q3PoEek9 SPKoyBlxNZ0zjPQeJSwtM s1atFydmMxxPK7uJHHkpd btj863LnLuc1weMPFjpRS tYZzdPIA3V40c i9F0JHSwSKLnQJY1qQI6c S6clWlsgnlkmYWqbOadzb UkfDlzDJmdPAxyB994ZNZ vcDsnPlBheWVy OjwvdGQ+HP82jz29R0JlQ njdZdp2RJEjRZI2cHT3mM 6oQSUwDZtrb7N5lKB3O2R cejHmqy8bl6gw YXBz (more content not included)... Normal [facility] XR Spine Cervical 2 or 3 Vie [...] M.D. Transcribed by: CAITY Technologist: SULY Normal [facility] Consent for Treatmenton 10-05 Consent for Treatment [id number]# 1.00CD:127 Normal [facility] Consent for Treatment [id number]#1 .00CD:127 Normal [facility] Consultation Noteon 11-01-19 Consultation Note Patient: ELISA [...] has, # 60 tab(s), Refills(s) 0, Pharmacy: [facility]/pharmacy #[id number], 166.8, cm, 10/11/21 14:46:00 EST, Height/Length Dosing, [...] Oral, Daily, Prophylaxis fluticasone 0.05 mg/inh Nasal [place]: 1 spray(s), Nasal, Daily, Refill(s) 0, Allergy [...] list: All Problems Palpitations / SNOMED CT 426403049 / Confirmed 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 Hypertension / SNOMED CT 2939494519 / Confirmed Anxiety / SNOMED CT 24913026 / Confirmed Lumbar disc disease / SNOMED CT 5743993168 / Confirmed Lumbar radiculopathy / SNOMED CT 409787267 / Confirmed Chronic gastritis / SNOMED CT 89477083 / Confirmed Migraines / SNOMED CT 61685805 / Confirmed Insomnia / SNOMED CT 370714717 / Confirmed Colon polyp / SNOMED CT 739096512 / Confirmed Chronic leg pain / SNOMED CT 449123468 / Confirmed Laxative abuse / SNOMED CT 973104794 / Confirmed Chronic cluster headache / SNOMED CT 141292778 / Confirmed Vitamin D deficiency / SNOMED CT 72937054 / Confirmed Hyperlipemia / SNOMED CT 76462534 / Confirmed Osteoporosis / SNOMED CT 848618065 / Confirmed 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 Normal [facility] Comment on above: Result Comment: Elec tronically Signed By: Sophy Rush PA-C\.br\Date and Time Signed: 10/31/21 12:26 EDT\.br\Electronically Co-Signed By: Derick Meza MD\.br\Date and Time Co-Signed: 11/01/21 07:42 EDT Office/Clinic Note-Physician on 10-31-2021 Office/Clinic Note-Physician [id number]# 1.00CD:127 Normal [facility] Orders Officeon 10-31-2021 Orders Office [id number]# 1.00CD:127 Normal [facility] Physician Orderon 10-31-2021 Physician Order [id number]# 1.00CD:127 Normal [facility] Orders Officeon 10-28-2021 Orders Office [id number]#1. 00CD:127 [facility] IntraOperative Documentson 0 10-25-2021 IntraOperative Documents [id number]# 1.00CD:127 [facility] Vital Signs Date Time Vital Sign Value Performing Clinician Ruba miller 10-10-2022 13:14-0500 Diastolic blood pressure 68 mm[Hg] Sophy Rush [facility] 10-10-2022 13:14-0500 Heart rate 62 /min Sophy [employer] [facility] 10-10-2022 13:14-0500 Mean blood pressure 90 mm[Hg] Sophy [employer] [facility] 10-10-2022 13:14-0500 Respiratory rate 12 /min Sophy Rush [facility] 10-10-2022 13:14-0500 Systolic blood pressure 135 mm[Hg] Sophy Rush [facility] 08-22-2022 13:06-0500 Diastolic blood pressure 61 mm[Hg] Eddi Arana [facility] 08-22-2022 13:06-0500 Heart rate 65 /min Eddi Sumit [facility] 08-22-2022 13:06-0500 Mean blood pressure 76 mm[Hg] Eddi Sumit [facility] 08-22-2022 13:06-0500 Respiratory rate 16 /min Eddi Sumit [facility] 08-22-2022 13:06-0500 Systolic blood pressure 106 mm[Hg] Eddi Sumit [facility] 07-11-2022 13:57-0500 Diastolic blood pressure 76 mm[Hg] Eddi Sumit [facility] 07-11-2022 13:57-0500 Heart rate 77 /min Edid Sumit [facility] 07-11-2022 13:57-0500 Mean blood pressure 99 mm[Hg] Eddi Sumit [facility] 07-11-2022 13:57-0500 Respiratory rate 16 /min Eddi Sumit [facility] 07-11-2022 13:57-0500 Systolic blood pressure 146 mm[Hg] Eddi Sumit [facility] 06-20-2022 12:30-0500 Diastolic blood pressure 75 mm[Hg] Sophy [employer] [facility] 06-20-2022 12:30-0500 Heart rate 57 /min Sophy Rush [facility] 06-20-2022 12:30-0500 Mean blood pressure 94 mm[Hg] Sophy Rush [facility] 06-20-2022 12:30-0500 Respiratory rate 12 /min Sophy Rush [facility] 06-20-2022 12:30-0500 Systolic blood pressure 133 mm[Hg] Sophy Rush [facility] 03-28-2022 12:43-0400 Diastolic blood pressure 69 mm[Hg] Sophy [employer] [facility] 03-28-2022 12:43-0400 Heart rate 51 /min Sophy Rush [facility] 03-28-2022 12:43-0400 Respiratory rate 18 /min Sophy Rush [facility] 03-28-2022 12:43-0400 Systolic blood pressure 135 mm[Hg] Sophy Rush [facility] 12-20-2021 12:28-0400 Diastolic blood pressure 79 mm[Hg] Sophy Rush [facility] 12-20-2021 12:28-0400 Heart rate 51 /min Sophy Rush [facility] 12-20-2021 12:28-0400 Mean blood pressure 97 mm[Hg] Sophy Rush [facility] 12-20-2021 12:28-0400 Respiratory rate 18 /min Sophy Rush [facility] 12-20-2021 12:28-0400 Systolic blood pressure 134 mm[Hg] Sophy Rush [facility] Encounters Encounter Date Encounter Type Care Provider Facility Start: 09-10-2023 Telephone encounter Tiffani Munson 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 Work Phone: [facility] Start: 09-05-2023 Telephone encounter 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 [facility] Start: 08-26-2022 End: 08-27-[address] EMI FRIEDMAN . Facility: Start: 08-26-2022 End: 08-27-2022 Encounter for general adult medical examination without abnormal findings DR EMI FRIEMDAN . Facility: Start: 08-22-2022 End: 08-23-2022 ambulatory Emi Friedman Facility:[facility] Start: 08-22-2022 End: 08-22-2022 Pain Management Eddi Arana [facility] Start: 08-01-2022 End: 08-02-2022 ambulatory Eddi D Sumit Facility:[facility] Start: 07-11-2022 End: 07-12-2022 ambulatory XXXX NONE Facility:[facility] Start: 07-11-2022 End: 07-11-2022 Pain Management Eddi Arana [facility] Start: 06-27-2022 End: 06-27-[address] YASMINE DAMON . Facility: Start: 06-27-2022 End: 06-28-[address] EMI FRIEDMAN . Facility: Start: 06-20-2022 End: 06-21-2022 ambulatory Derick Meza Facility:[facility] Start: 06-20-2022 End: 06-20-2022 Patient encounter procedure Sophy Rush [facility] Start: 05-04-2022 End: 05-05-2022 ambulatory Sophy Rush Facility:[facility] Start: 05-04-2022 End: 05-04-2022 Patient encounter procedure Sophy Rush [facility] Start: 04-20-2022 End: 04-21-[address] EMI FRIEDMAN . Facility: Start: 04-04-2022 End: 04-05-[address] EMI FRIEDMAN . Facility: Start: 03-28-2022 End: 03-29-2022 ambulatory Derick Meza Facility:[facility] Start: 03-28-2022 End: 03-29-2022 ambulatory Derick Meza Facility:[facility] Start: 03-28-2022 End: 03-28-2022 Patient encounter procedure Sophy Rush [facility] Start: 12-20-2021 End: 12-21-2021 ambulatory Emi Friedman Facility:[facility] Start: 12-20-2021 End: 12-20-2021 Patient encounter procedure Sophy Rush [facility] Start: 12-08-[address] EMI FRIEDMAN . Facili ty:[facility] Start: 10-31-2021 End: 11-01-2021 ambulatory XXXX NONE Facility:[facility] Procedures Date Procedure Procedure Detail Performing Clinician Start: 08-01-2022 Epidural injection of lumbar spine using fluoroscopic guidance Eddi Arana Comment on above: L5-S1 CHRISTY- 0% relief Start: 10-18-2021 Cervical arthrodesis Sophy [employer] Start: 06-13-2021 Epidural injection of cervical spine using fluoroscopic guidance Sophy [employer] Comment on above: C7/T1 CHRISTY-minimal relief Start: 05-26-2020 Esophagogastroduodenoscopy Sophy [facility] Start: 05-06-2020 Hemorrhoidectomy Sophy Rush Start: 09-04-2017 Colonoscopy Tiffani Munson [employer]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 [employer]ER Work Phone: Application of pelvic traction Sophy [employer] Comment on above: for 8 weeks in 1988 for left broken pelv ic bone Aspiration of ovarian cyst A phillip [employer] Comment on above: 1987 Bone structure of left navicular Sophy [employer] Comment on above: 2019 removal of pieces of broken bones Deviated nasal septum (disorder) Sophy [employer] Comment on above: 2003 Excision of lesion of skin A phillip [employer] Hysterectomy Sophy [employer] Comment on above: 1993 Injury of right ankle Sophy Rush Comment on above: Dr Fields Ligation of fallopian tube A phillip [employer] Comment on above: 1984 Operation on lymph node Fredy lopes [employer] Reduction mammoplasty Sophy Rush Comment on above: 1989 Structure of left sh oulder region (body structure) Sophy [employer] Comment on above: 1986 Plan of Treatment Date Care Activity Detail Author Start: 08-28-2024 DTaP,Tdap and Td Vaccines (2 - Td or Tdap) DTaP,Tdap and Td Vaccines (2 - Td or Tdap) [facility] Start: 04-06-2023 COVID-19 Vaccine ( season) COVID-19 Vaccine ( season) [facility] Start: 04-06-2023 Influenza vaccination Influenza Vacc ine [facility] Start: 12-21-2022 Adult BMI Screening Adult BMI Screen ing [facility] Start: 12-21-2022 Tobacco Screening Tobacco Screening [facility] Start: 09-04-2022 Screening for malign ant neoplasm of colon Colonoscopy [facility] Start: 1974 Depression Screening Depression Scre ening [facility] Immunizations Immunization Date Immunization Notes Care Provider Catrina michael 05-11-2021 influenza virus vaccine, unspecified formulation Tiffani Munson [employer] TO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 IR[employer]ER Work Phone: [facility] 12-01-2020 SARS-CoV-2 (COVID-19 ) Ad26 vaccine, recombinant Sophy [employer] [facility] 11-10-2020 SARS-CoV-2 (COVID-19 ) Ad26 vaccine, recombinant Sophy Rush [facility] Payers Date Payer Category Payer Medicare A[employer] MEDICARE A [employer]NA MEDICARE PLAN (HMO) [id number] 2023-Present [phone] [address] [place] [address] [id number] 2018 Unknown [id number] 1960 Unknown [id number] 2.16.840.1.997943.3.579.2. 1960 Unknown [id number] 2.16.840.1.601663.3.579.2. 1962 Unknown [id number] 2.16.840.1.820139.3.579.2. 1962 Unknown [id number] 2.16.840.1.100561.3.579.2. 1962 Unknown [id number] 2.16.840.1.140561.3.579.2 1962 Unknown [id number] 2.16.840.1.648561.3.579.2 1962 Unknown [id number] 2.16.840.1.371502.3.579.2. 1962 Unknown [id number] 2.16.840.1.673482.3.579.2. 1962 Unknown [id number] 2.16.840.1.938866.3.579.2. 1962 Unknown [id number] 2.16.840.1.691825.3.579.2. 1962 Unknown [id number] 2.16.840.1.697628.3.579.2. 1960 Unknown [id number] 2.16.840.1.127851.3.579.2. 1960 Unknown [id number] 2.16.840.1.887301.3.579.2. 1962 Unknown [id number] 2.16.840.1.680958.3.579.2.727 1962 Unknown [id number] 2.16.840.1.347470.3.579.2.727 1962 Unknown [id number] 2.16.840.1.713840.3.579.2.593 1962 Unknown [id number] 2.16.840.1.308004.3.579.2.593 1962 Unknown [id number] 2.16.840.1.187158.3.579.2.593 1962 Unknown [id number] 2.16.840.1.253095.3.579.2.593 1962 Unknown [id number] 2.16.840.1.276574.3.579.2.593 1960 Unknown [id number] 2.16.840.1.501538.3.579.2.593 1957 Self-pay Social History Date Type Detail Facility Start: 06-28-2021 End: 12-21-2021 Tobacco smoking status Ex-smoker (finding) [facility] Tobacco smoking status Never [facility] Start: 09-16-2020 End: 12-21-2021 Sex Assigned At Female [facility] History of tobacco use Current smoker [facility] History of tobacco use Cigarette Smoker P [facility] Start: 09-16-2020 End: 12-21-2021 Cigarettes smoked current (pack per day) - Reported [address] [facility] Start: 12-21-2021 Tobacco use and exposure Smokeless tobacco non-user [facility] Start: 12-21-2021 Alcohol intake Current drinke r of alcohol (finding) [facility] Start: 08-22-2017 Tobacco Comment QUIT 9 YEARS AGO [facility] Start: 08-22-2017 Alcohol Comment SOCIAL/BEER [facility] Start: 1960 Sex Assigned At Not on file P [facility] Medical Equipment Procedure Code Equipment Code [...] Assessment Result Facility 10-10-2022 Functional Status N/A [facility] 08-22-2022 Functional Status N/A [facility] 07-11-2022 Functional Status N/A [facility] 06-20-2022 Functional Status N/A [facility] 03-28-2022 Functional Status N/A [facility] Clinical Notes 10-31-2021 to 09-10-2023 Telephone Encounter [...] for a repeat until 2027. Spoke to Delta's nurse and she states that Elisa is aware of this also and to please disregard the referral. documented in this encounter [facility] 09-10-2023 Telephone encount er Note Called Ramandeep Mary/Dr. Friedman's office as we received a screening colonoscopy referral for Elisa, but she had a colonoscopy in 2017 and not due for a repeat until 2027. Spoke to Delta's nurse and she states that Elisa is aware of this also and to please disregard the referral. [facility] 09-05-2023 Miscellaneous Notes Formattin g of this note might be different from the original. Called Dr Friedman's office as we received a screening colonoscopy referral for Elisa, but she had a colonoscopy on 09/04/2017 and is not due for 10 years. They are to let Dr. Friedman know. documented in this encounter [facility] 09-05-2023 Telephone encount er Note Called Dr Friedman's office as we received a screening colonoscopy referral for Elisa, but she had a colonoscopy on 09/04/2017 and is not due for 10 years. They are to let Dr. Friedman know. [facility] 10-10-2022 Evaluation + Plan note Extrac [...] will follow-up with Dr. Derick Meza at [facility]. She has this information. Future Scheduled Tests Radiology* XR Spine Cervical 2 or 3 Views 10/31/21 [facility]01-17-2023 Evaluation + Plan noteExtracted from: Title:FUV [...] Spine Cervical 2 or 3 Views 10/31/21 [facility]12-27-2022 Note [id number]#1.00CD:127[facility] 07-11-2022 Evaluation + [...] Spine Cervical 2 or 3 Views 10/31/21 [facility]11-15-2022 Evaluation + Plan noteExtracted from: Title:Spine [...] Spine Cervical 2 or 3 Views 10/31/21 [facility]08-23-2022 Evaluation + Plan noteExtracted from: Title:Spine [...] Spine Cervical 2 or 3 Views 10/31/21 [facility]05-17-2022 Evaluation + Plan noteExtracted from: Title:Spine surgery follow-up Author:Sohpy Varghese Date:12/20/21 Impression and Plan Patient is [...] Scheduled Provider:Sophy Rush PA-C Location:[facility] Appointment Type:Pain Management - Follow Up (FT) Future Scheduled Tests Radiology* XR Spine Cervical 2 or 3 Views 10/31/21 [facility]03-28-2022 Evaluation + Plan note Future Scheduled Tests Radiology* XR Spine Cervical 2 or 3 Views [facility]31[facility]21 [facility] Future Appointments Appointment Date:03/28/2022 12:30:00 PM Scheduled Provider:Sophy Rush PA-C Location:[facility] Appointment Type:Pain Management - Follow Up (FT) Future Scheduled Tests Radiology* XR Spine Cervical 2 or 3 Views [facility]/31/21 [facility] Future Appointments Appointment Date:04/25/2022 11:00:00 AM Scheduled Provider:Sophy Rush PA-C [facility] Appointment Type:Spine - Follow Up (FT) Future Scheduled Tests Radiology* XR Spine Cervical 2 or 3 Views 10/31/21 [facility] Future Appointments Appointment Date:05/23/2022 11:30:00 AM Scheduled Provider:Sophy Rush PA-C Location:[facility] Appointment Type:Spine - Follow Up (FT) Future Scheduled Tests Radiology* XR Spine Cervical 2 or 3 Views 10/31/21 [facility] Narrative No data available for this section [facility] Dis[facility] instructions No data available for this section [facility]ructionsNot on filedocumented in this encounter [facility] No data available for this section [facility] Summary Purpose Family History No Family History Records FoundNo Family History Records Found Advance Directives No Advanced Directives Records FoundNo Advanced Directives Records Found Additional Source Comments Care Team (unrecognized sect ion and content) [employer] Relationship Specialty Start Date End Date Emi Friedman MD [address] [phone] PCP - General 08/15/17 INFORMATION SOURCE (unrecogn ized section and content) DATE CREATED AUTHOR 10/23/2022 [facility] DATE CREATED AUTHOR AUTHOR'S ORGANIZ ATION 11/28/2022 [facility] FOR RECORDS PERTAINING TO PATIENTS WHO [...] BE BASED ON THE PRIMARY CLINICAL RECORDS. [facility] [employer] [facility]. provides no warranty or guarantee of the accuracy or completeness of information in this document.
[2024-02-05 10:54] LABS: Bilirubin Urine NEGATIVE (NEGATIVE); Blood Urine NEGATIVE (NEGATIVE); Clarity Urine CLEAR (CLEAR); Color Urine YELLOW (YELLOW); Glucose Urine UA NEGATIVE (NEGATIVE); Ketones Urine NEGATIVE (NEGATIVE); Leukocyte Esterase Urine TRACE (NEGATIVE); Nitrite Urine NEGATIVE (NEGATIVE); Protein Urine NEGATIVE (NEG/TRACE); Specific Gravity Urine 1.025 (1.005-1.025); Urobilinogen Urine 0.2 EU/dL (0.2-1.0); pH Urine 5.5 (5.0-9.0)
[2024-02-05 11:21] LABS: Bacteria Urine TRACE #/HPF (NONE SEEN); Cast Seen? SEEN #/LPF (NONE SEEN); Crystals Seen? None Seen #/HPF (None Seen); Hyaline Casts Urine FEW; Mucus Urine NONE SEEN (NONE SEEN); RBC Urine 0-2 #/HPF (0-2); Squamous Epithelial Cell Urine FEW #/LPF (NONE/RARE)
[2024-02-05 11:22] LABS: Urine Culture Indicated ALREADY ORDERED
== END 2024-02-05 10:28 | disposition home or self-care (01) ==
LOC: FL 10:27
PROVIDERS: PCP Family Medicine; Visit Provider Family Medicine
DX: T17.308A Unspecified foreign body in larynx causing other injury, initial encounter (principal); N39.0 Urinary tract infection, site not specified
CPT/HCPCS: 81001; 87086

== ENCOUNTER 2024-02-12 07:21 | Outpatient (OUT) | payer MEDICARE, SELFPAY ==
--- NOTE | 2024-02-12 07:29 | FL_ITS ---
The [address] [address] Patient Name: ELISA GOMES MRN: [id number] date: 1960 Sex: F Assigned Patient Location: [place] Current Patient Location: [place] Accession/Order Number: [id number] Exam Date: 02/12/2024 08:40 Report Date: 02/12/2024 09:46 At the request of: EMI KENYON Procedure: FL upper GI w air PROCEDURE: FL upper GI w air, FL cineradiography COMPARISON: None. FLUORO DOSE: unknown HISTORY: [id number].12867B Choking TECHNIQUE: An air contrast upper gastrointestinal series was performed in the usual manner. Standard level fluoroscopic mode of operation utilized. FINDINGS: ESOPHAGUS:Normal. No visible obstruction, dilatation, reflux or hernia STOMACH: Normal. No obstruction, mass, or ulceration. Normal motility. DUODENUM:Normal. No ulceration or diverticulum. OTHER: Negative. FL/FL upper GI w air IMPRESSION: Normal exam Electronically authenticated by: EMI JIMENES Date: 02/12/2024 09:46
--- NOTE | 2024-02-12 07:29 | FL_ITS ---
The [address] [address] Patient Name: ELISA GOMES MRN: [id number] date: 1960 Sex: F Assigned Patient Location: [place] Current Patient Location: [place] Accession/Order Number: [id number] Exam Date: 02/12/2024 08:40 Report Date: 02/12/2024 09:46 At the request of: EMI KENYON Procedure: FL cineradiography PROCEDURE: FL upper GI w air, FL cineradiography COMPARISON: None. FLUORO DOSE: unknown HISTORY: [id number] Choking TECHNIQUE: An air contrast upper gastrointestinal series was performed in the usual manner. Standard level fluoroscopic mode of operation utilized. FINDINGS: ESOPHAGUS:Normal. No visible obstruction, dilatation, reflux or hernia STOMACH: Normal. No obstruction, mass, or ulceration. Normal motility. DUODENUM:Normal. No ulceration or diverticulum. OTHER: Negative. FL/FL cineradiography IMPRESSION: Normal exam Electronically authenticated by: EMI JIMENES Date: 02/12/2024 09:46
--- NOTE | 2024-02-12 07:31 | US_ITS ---
[address] [address] Patient Name: ELISA GOMES MRN: [id number] date: 1960 Sex: F Assigned Patient Location: Current Patient Location: US Accession/Order Number: [id number] Exam Date: 02/12/2024 07:35 Report Date: 02/12/2024 15:49 At the request of: EMI KENYON Procedure: US renal bladder EXAMINATION: US renal bladder HISTORY: UTI N39.0 COMPARISON: No relevant comparison available. TECHNIQUE: Ultrasound examination was performed of the bladder. FINDINGS: Right Kidney: Normal in size, contour and echotexture. the cortex measures 1.2 cm. No solid cortical mass, hydronephrosis or obstructing nephrolithiasis. Height: 5.16 cm Length: 10.39 cm Width: 5.68 cm Left Kidney: Normal in size, contour and echotexture. the cortex measures 1.3 cm. No solid cortical mass, hydronephrosis or obstructing nephrolithiasis Height: 5.83 cm Length: 11.43 cm Width: 4.53 cm The urinary bladder is normal. Prevoid volume 133 mL. Post void volume 1 mL. Ureteral jets: Visualized bilaterally US/US renal bladder IMPRESSION: No acute abnormality Electronically authenticated by: EMI JIMENES Date: 02/12/2024 15:49
== END 2024-02-12 07:22 | disposition home or self-care (01) ==
LOC: US 07:23
PROVIDERS: PCP Family Medicine; Visit Provider Family Medicine
DX: N39.0 Urinary tract infection, site not specified (principal); T17.308A Unspecified foreign body in larynx causing other injury, initial encounter
CPT/HCPCS: 74246; 76120; 76770

== ENCOUNTER 2024-09-08 09:41 | Outpatient (OUT) | payer MEDICARE, SELFPAY ==
--- OUTSIDE RECORDS SUMMARY | 2024-09-08 09:45 | XMS_ITS | CCD ---
Author Organization [facility] Care Team Providers Care Livestock Caretaker Name Role Phone Emi Friedman Primary Care Physician [phone] Emi Friedman Referring Unavailable Rush, Sophy Attending [...] Arana Referring Unavailable Eddi Arana Attending Unavailable Derrick, Derick A Attending Unavailable Meza, Derick A [...] Unavailable Emi Friedman MD Primary Care Provider [phone] Allergies Allergy Classification Reported Allergen(s) Allergy Type Date of Onset Reaction(s) Facility (14 sources) Adhesive Tape; Translations: [Tape] Drug allergy Eruption of skin (disorder) [facility] (16 sources) Penicillin; Translations: [penicillin] Drug Allergy 9 Weal (disorder) [facility] (14 sources) Sulfonamides (Antibiotic); Translations: [sulfa drugs] Drug allergy Weal (disorder) [facility] (1 source) Desonide Drug Allergy 9 [facility] (1 source) natural latex rubber Drug allergy (disorder) [facility] (2 sources) Sulfonamides (Antibiotic) Drug allergy (disorder) [facility] (2 sources) Adhesive agent Propensity [...] Active Start: 10-03-2021 take 1 tablet by [facility] once daily biotin 1000 mcg oral tablet [...] Corticosteroid Start: 05-20-20 fluticasone 0.05 mg/inh Nasal [place] 1 spray(s), Nasal, Daily, Refill(s) 0, Allergy symptoms Start Date: 05/20/21 Status: Ordered take 1 spray(s) nasal route once daily fluticasone propionate (FLONASE) 50 mcg/actuation nasal spray Administer 1 spray into each nostril daily. 0 Active fluticasone 0.05 mg/inh Nasal [place] (6 sources) Start: 05-20-2021 fluticasone 0.05 mg/inh Nasal [place] 1 spray(s), Nasal, Daily, Refill(s) 0, Allergy [...] blood pressure Start Date: 10/03/21 Status: Ordered [facility] [place], [place] Medication (4 sources) Start: 07-11-2022 [facility] [place] [place] Medicatio n See Instructions, collagen powder 1 scoop daily Start Date: 07/11/22 Status: Ordered vcmtwjxh-euej-DS-ca lcium &mins (THERAGRAN-M) 9 mg iron-400 mcg tablet (2 sources) ryhrpele-brsy-IJ -ca lcium &mins (THERAGRAN-M) 9 mg iron-400 [...] Range Facility Coding Summary.on 10-23-2022 Coding Summary. [id number] G h0bWw+PGhlYWQ+XI2XOKI eH40wdODjzZ7xL3HJYQxW SywgQVBQTElOSyIgbmFtZ Y6bzIIgMWEd IC8+EC9uTZNdXbdwmKMuc 6F3uGC3R39obb4bBByfdH S1APEaMfWwqkrcy6vuuYx 6IDcuNmluOyBt UMZgtX91KLG2tE62Th60y IRdiBCyy5jcgTy1UwTgXT AjFKL3hYdsBRggk2CsUMK qO80ltDIvc0C4 XUJgpKlidGOaXbEppLT3w S1tAOmprtpnd5rubqglYl j6wl68iYSlh5C8dEU8R9Z mydI2YXLosRRn QkodfLABmO6wlrblv1yur pecHqPrIVJxARz4YPb8WX UasQnkVuJzZW33TUS0DSD ivbOrQ4LuLYTt bKqeBaR1s6J4Xd6DS3IVH kdjN1RIGOKUJFujnEW+PC 30hg53I5XxWwahRzq9DAI qSNJ9fMO2dQ1d AYDyNCjid5L8pMQ7F6Ehi uIvhr0wz3qiNQXxSWzxN3 7apQQgz3Q1EBWstAE6YPT ouJuvVmNqeU51 Oyc+SAYfmHwbi7QxHzouw 0swz9jdsRa4EdrnMSJwvr MblYqgFPT8w7YrDg7eMGR tfZL9qDL3yL2x TpKjWqT3OGdtB905UpXku VAnBvnqD66oO7BiyHV+PH ZcBhk8BRLdkQgxLC8gL2G hZGRpbmctbGVm jCddQN9qRYAbgfvnHZGzq Z6mHAJqX7l3BlIrOhM4GL tdQ0KmGNXgssgaDm79bP3 zLsZtZxY0TIqd H8MejdL0OXJwyAOdWWuuZ SV2D18eb1O4VRRkPWQhXB T6pVQ7aU8ahOoprwnncEQ mdDsgdmVydGlj RKceWQutE033SBRvmOprH kNvZGluZyBEYXRlOiAgMD MvMjAvMjAyMzwvdGQ+PHR gCWD4gJfsXFBq hUMyDJqwBl8vbAnzyNvnD R1vJCJgqbhoGRIenY6cYX DsmBEffJoaGS6gAVCpkfm pm961NiDpFOL6 DBOxpMSrG4QeuD5vNvKdJ MJqAMCqO7MyxULfWZggO3 55BHdfJhM3PVZqrwTlW6R sLWFsaWduOiB0 r2V2Li4Un1OqlqnbU5Obo RYmJlUwWyucFIw4P7XyDx wvdHI+IH53PJOdEO95KYd 7GUF4cLijDQoe JSFgD5MkkQ7iZsHyRTJjN GRkOyc+PHRhYmxlIHdpZH RoPScxMDAlJyBzdHlsZT0 jFf7hDGEwUWDm eUauySBkWjIuv5ufEBBvN FzzJF4cqUfaZ6FdnEA4CK Gba7o6Uu67C63fO9XdhLK +LNSyoTI1tBH3 tN4hLaOvNuS9ZEcvF467R hUnlOZtKgnxj6qek2wrpM j1BzJ5BDLzceMyuVfvMEV 0y9FrJl68R09d IHdpZHRoPSIxNSUiIHZhb Ryvlf2caO6nJh9+PGNvbC S1yYQ2sM8vWdIdYrE6OJc bJ549MrDjfIJe Defmx0fgv0otgNy9FsHcM BVphwVsoShoSEO9u6RfEe 02C0SzpWcqr9ZzKfm0wn3 4gGMol3K8bMK3 L8QpPSYqgzoczXEcuSjuP F4hXBOycltiJKWwbG6nMH FgG2c1LiDmVmU1ABmoL6N imxA4NJLukKDm SUOuiRJBaS2fahgnw6ohs envApDaYWCuZRe6AFw1AB UeiUmxLnBcAPV9QaR4AER 5bJUghG4mtLrx prugfX1lFik+TSD4mOHew XJWOU9mLyoaiAL+PHRkIH I5xTmhNPqgEKVibU9gHJG sV4l9FlJiGzF5 RCrmR8LjonI3GLOoxHNuZ CUueOVTxV0cuvvfl9aktb jvPmLhDNRyAUs8ONz7JOM saWduOiBsZWZ0 CqX8QWX2kZIxvX7cvOohp tudyB9xAmt+QmlydGggRG I3OKe9F2ZyPsw4TUChqKg tJA1cfRMrOJbb Ur8weWkioIpaUW4hENAuu usbc521QrBdw8qxURWwoX LqBWggHGE4I58wk2C1AUB wZNFqRSD6aKL3 yZ5zlHaxxrdskOXhbHnkm sHxxUamWKvdAPoyX040EP YckJtxMcPtJWg6O8VqXyn 9TTTieOknLN7u wHQaDAqlZh4jhNlwiOfhC Q8vQPEhdtelh575PwJhf5 lmXHJvqAMxTNsdKST6P78 sl6Q1EDXlFQIi PAF5jTZ8rC6szZvfbvtnl GVmdDsgdmVydGljYWwtYW mfE501HOEboPncSpLqpVb 4S6MaUgo3IZPn kWjsNS7kyKYfLPyqQd1yj ZtvwFirBM1lOAEzfzrqp8 56OiFos5yyZBVfsOGaPBb bJVS7W29tu1W2 KSGzKVWjUZH3rVY0xY4wl GlnbjogbGVmdDsgdmVydG wcVCihDTuuD124INJptNu nPlBhdGllbnQg CSkiSOv0E5BiDcwcrLC+P J33ZFQgAX87aDOhoQPly1 uveBr4IsMhIYLiXZT1wXg lEHbbv3XjLTQd I84ffXCwe2U4CNAozDwpm GThOyDptSO2mQ2bWFnxid tvq2yebavnSmnzd8gtoa6 3pD44J10fAYls ZHRoPSIzMCUiIHZhbGlnb i0zxQ7wXf5+STHedFI4kG P5tP3bIHNoBpT6VVwtG88 9InRvcCIvPjxj o2dod4bjuIn6BdE8IBEpv vEalPbbIEG5m3EhJo71R7 9sIHdpZHRoPSIyMCUiIHZ qdBfxnl6vrP3h Ii8+TBGuoCF8eBM7mH8xW eUvQyH1GZjyY455TjFpfD UuNpvoV50wR9HmyAU+PHR iOqm6QRBuhWvn JW6ldLAzKFdrNy8yNCB5E iSmMwYdASsdD0GbMSOifp nxibofaHV8CCXpXOPeiN5 6Ga4gzZptAYEh tHUAgF7wqmtsq4lcbqeqM tIgZXUfMTc1DPy2MQLauT vcInBqIBV2DqY4LQI0aBJ qaC4tpIdjpfqz sV6tU1YyFFIqsubcYq97e Z2mCaIhShX8QBflPxf+Ql TCSp4XUWdbZLJEUuHrUYs vdGQ+PHRkIHN0 fTpcKMmhVSIelM3aBSAlA 5j6EyKoGhM6SXpxC7KfEV GuelobYt66nO1aKrYwYsH 1TTchH8LoonU9 ETKxyVZoXTndDRH6B60st 2S9TMPqDBLxRVU4hHE8bT 1hbGlnbjogbGVmdDsgdmV ydGljYWwtYWxp G859WTPngNsgAkT4TiJoK cS6GrT7F7PmJmi9MTWynA svLU9onSElEXssZt4mrGs wzYkmIO7mCUOd ijxiEPPffE3kHHOdjCMaw DneRT6eBSKotllbk889De BwMXM8SJQstPXeQ6XklK3 yOiAjMDAwMDAw U3LwiWDaAInnB977FTeuF wM6HLHnmqIbX3LbGJFafI isMeF7k1Q2Ye11NWSJIUX yczwvdGQ+PHRk XTK9fLaySZycJWUdfU4cV EZnY2j1WhZaMhB6DQobF2 AcVCMihvdmSw22rO8sTqY cVzN3WQjxS2Co tfS3NCJnwBCrGVkiPAT5N 72uv7H6UQSqEAGaSNT4jB S2kN3avBtktwqvrGMsvHh gdmVydGljYWwt MAcmU470VCSdzHwxSkAxb WFsZTwvdGQ+OWTpVCI4tY cgAUydMCOydQ9tFYLfM0s 8EwZdWeD6PKyu W5LaTEJlyfadIc52eA8xL rCqHbP0RFblK7BelaW6ZZ UwbAHiMXqxLRV1S44ed4T 7EIQvYWHoCHL2 xMR7dS0xpNkukildmPDmx DsgdmVydGljYWwtYWxpZ2 48ZTKmxAyeYs13nJKaqMa ybvO2S5FjApvh dHI+HQ15OYQmBY13nGJtu UKlg9isbMt0PjIsUACbSG D6zQfvRAprf1EuGPSuO37 tfIPfq6I3CZXk eYspfVEaWwYysIT2sO3zL Ounliueq8dplmtpBprbe2 ufpw02yL19V46vHPghNGO oPSIzMCUiIHZh aDphhv6daG0vOm8+PGNvb LT2xWZ8tM0jRkPoHyQ1XH xmB074WiBnpCOfIdocm0q iw4gglOj0WxAo KFEqejWnwZibBAR5l5EpR u47T11qIPuwIJRmRQSdYG UxEUVilFqefi3ogB6cBx4 +VS3hc0hlau54 kM85oIE+VFUdTDO5lZtaR AggBFMygL4kJHqoRmA3NB GfNcVtaU77hQBzFGvfKw1 xgElqwFxqXK8h ZIQjjizdg114JwXxd9otY USmwWGdIBiyONL4J51ay7 S6ISGnKOIeGHF9gSP4pP7 hbGlnbjogbGVm dDsgdmVydGljYWwtYWxpZ 846OEOphWttZxBuvSFjQ6 birmQNSF8bZdiwwDL+PHR wTFI8wNgbCKyd ZZNrbI8zSWGtD6s0CoEmU xA9UVobB6CcdjE6VPSrtR ImMSFsxEFYfM8vhntrt8t vcjogIzAwMDAw MWe5GGf7VLUdnZzzBdDwX IN6DhK1ZUR7vXXweH0roH mvgemvuJ2jVmr+RklOOjw vdGQ+PHRkIHN0 rXxyLHqwACQqiG8uRBZeK 1x6NqNlQqV2PWygO5Gjbm W6HWEtoAUcWZRtnKNYsS3 rlsebj4vrldyo XhQcMUYxSHd5MMq9EZNli ItyRiBaNAD4OtG3UBD7bI HzkR0hxDmmuplszK4zYwp +TVJOOjwvdGQ+ LTTrMBL7zPvoSCsiKQMxq K6hWTPxT5q7RtPlUiC2TF ntS1SvdeM3ARAoeKYmSSS nmYYUtC0tbrsx u2jopisyLrLoDUWfKBr7Q Dx5FGKspIsdEyBgVHD1Bz P0TAA2cBKtiQ8maQtmozd mvE5kWjm+UGF5 PSR6LB56EB17H1VaKakar GFibGU+PHRhYmxlIHdpZH RoPScxMDAlJyBzdHlsZT0 oFv0rTSUnMDHp bGxh (more content not included)... Normal [facility] Coding Summary.on 10-17-2022 Coding Summary. CD:[id number]:[id number] G h0bWw+PGhlYWQ+UF7HTZG qH10ehRXebQ3wG1QDFVlT SywgQVBQTElOSyIgbmFtZ W8xlROwJEQj IC8+QI4oRTDyXgwumFXvw 4B0yJJ5X86ixl2cBGoubG D5QZSeQhUdtrfhs8nygFk 6IDcuNmluOyBt HNJhpO42ODQ7nC33Bw66u WRlfAQkw6eusBe5JiQaAT NhNEM4gTslNQvce9QjELS aB09gqLPqk5B8 YZFbhOnqpGPfZdYorJA9y Z7bQJqqzrwqs5diiicnFa g0vn16gMPzv6C4fRA3Z3W crvX4POTnxQBu IyplfCNUkJ6ezxgzc8beb qgsAlMlVDWnDOs0BOv2MA BurRlnJzLhJY13INY3ZQH sqjUiA6KdAEQe iZbrGlU2w4L5Un5HH3IXV dyyE5JYFOXTJAxkaGN+PC 04yv46C1NsUuczTdk2UTC qQUU3xIX2dP0l XGAlUVltw8F3iQC8W8Ste uIshy9wp8ctHARqQZdvA1 7ueMRop6F1HBOvyVY8VQN zzIjwVdNqrD25 Oyc+ANTaoWgak5EiKftfz 2snk1rwbAz1WywvSQWpyt GlxKhgRUE1b8ErAy2zQZV iwDX6kCW1aE0t YhVzMoS1DYtbH664KdShj RAnUmcgW35aL5CtuQJ+PH GtNyc0RHWbuZpuGA0sU9L hZGRpbmctbGVm tLtoVD6aAVJyznfsMXExn F8nUWBuX5u2VrSgQdU4JV eaS9JwPRXftpojKp12mU2 kGsHdEzB4HOxm C8HrxlY2HGUnwEIfEMwyO XS6U56qr2S4ILUkDSTtYJ M1kHP9xD0uoHazsmmynGQ mdDsgdmVydGlj FMlyWDxhJ877JALemHicU kNvZGluZyBEYXRlOiAgMD MvMTQvMjAyMzwvdGQ+PHR fLHC0fIjjDCLe gOApOVxpCi7knAnywWigE N0pFLUkmwcpTJVfeW5pAC ZafLFumXrsVP3mBSIaylt ke240XnVzEQS7 SQNotQHtB3QouW6vKfYdW PNtHFGlZ0PojWVjRBngV4 03KVpeHlX8VRFzhwGpY7I sLWFsaWduOiB0 o7R4Iw8Th3IdpnphJ7Eam QSaOeVcYhhvLVd7T6UtOi wvdHI+OY99KMBaBE94YEr 5EDE2dUucVYel DAIzH8ZprC1wNeAcXZRzJ GRkOyc+PHRhYmxlIHdpZH RoPScxMDAlJyBzdHlsZT0 iYk5eILIhVEWk rTouiWEoGxTrz7wwIAZmD AczVH6fpCuiK6HvfAX5MW Nfj9p9Ig95Z18iA5KmsWD +TBVcmUX1fLC5 xO6fNsAtHoE8KRqhZ204O rVjcCNnAuaqk2krk6fbxR l9UrM9IATatoRbhVndPJO 5z1YnEx01L24a IHdpZHRoPSIxNSUiIHZhb Bqaga3gxV1nVn1+PGNvbC B3gHW4dO9eQuChWjJ2HEm hL700VpOrcSJa Pfkon9ajt9opwFt2PjZzJ OQovmBdqBdsLYG9b1RkCs 37W1ManYnbp0KdCcq7vv2 6cTZtb3V4cCI1 D4WfABWhuglgaKWkpGlpA I9bHZGtbvluPMKlaG1mVG CzG3d1XhHlJvT7KPrbM3N zqeE8BXWasFKh OCInsHATiJ0svdbgl3jpm ewoUdEoGIFfZIa9CCw4BC QqhPhkVhMgURF2AnA6TVN 2wWEziB8pcKqb edxpgW7rYys+IIA3vUFlo BPSRO5uIetxlEF+PHRkIH Y1lAxrEWvqOOGkeY9qHUN wC5z7YfGpYsD6 SOiaG8PixyH1KSShlHUyF ADktWPUnD2kdjnyb5npee tsAjKtDZTjCSo9HAa8YFY saWduOiBsZWZ0 SgT3RQH4bUAhrZ5wqSuyt gnmmB5oSgn+QmlydGggRG A1ADe1W4FbYlw8BJHxyHu oGS2clEAnPFjk Jr0iqDpczJxpUV0pWIMhf cwck600WfDks6wqQGKlrN CaSFgxJYO8O57dd0A8CHA xFEYdCAG0uNF9 zT4nrRwkmmdjqKPwsYmpr tLxdZxcXZhzQTehZ509RZ OizUqqRoDtJGv1C4YhRud 7UFPhqYfkME4m sAGyJRswPm2hoNvaqSgvW G2fEVInevkyd109IoKpe9 baKSCaePCyLJcuYYR1U73 vt4F5HKRhOLZe VPD1lLV9mW8dzNeafucsv GVmdDsgdmVydGljYWwtYW dgD197ZHSabOqtSuYxbMz 9P9AuXnq5AUUp bUilXL2jwXHtHDluTx7ox XhjaBseWY7hJTHcudfen2 09OoGct4fbSWFmuWBkVRq sVHH4I45mr6V8 AXZtTTJoPRK7hCP2uH9wv GlnbjogbGVmdDsgdmVydG ojPSudMEhhG085TSEpqNy nPlBhdGllbnQg IHhmEMk9Q6AvDrvfiOJ+P R76ASLrIT49oBCdyUPdn5 kgmOf7JsKaEINfMHV7xLk eJHdem2XmZOXw U57zjMEpb2M9CCQwgTgpu YUbZhTglDM6oU9wIBvbrh mvn8hlksnnNopvp8tpos7 6tP32F01jDLdk ZHRoPSIzMCUiIHZhbGlnb c4waE3lUz9+BNHviHE2mO F2iP7yOGEfPeE5RMlpS13 9InRvcCIvPjxj i6kkp9pzdAy7JnB3DTDly tLwoLuwLHS4p2EtNg28J5 9sIHdpZHRoPSIyMCUiIHZ lnMiyst6hkQ3x Ii8+NXHxjRM3sVV8tE7fR dJdTiB5RXtnZ201HrMqeM GfJanoI68lI1TtlBD+PHR nOcm6QFNaqUwv CI8czEGkNTwtCt0pVTC7P tDxNiAdPYdxM0EhAUCtef ptojnqlXF5XOCtKOEwbX4 4Mb8idTgsUDDx gHRIvZ5tvekhh5pareohT bGxANByVFd4PRw2TBMlgC gqQwHkTMJ4XjI1HUW2gOU niX3uuYvwbeyw jT8zC6WiOCKvfqnaFn68l O0dFmPaJfW9HCstQsf+Ql EVFu7UMEvlINFHPiHnRTw vdGQ+PHRkIHN0 lQjxRXhfSCUqvP8yNTWjB 9o5XrJyZwG0UBeoM1XoVB ElnkmmOj59wY1oQtLyFyR 5AYdhW3NppvT8 IUPgpFZhKXppKZW6F86pm 3X8TNWmPCFjELF9iQA5aM 1hbGlnbjogbGVmdDsgdmV ydGljYWwtYWxp Y751LHBfhVbiLqS6RzCkA xG1XcB2X7XpBda4OVZzqS xvKB9ozPBjJZylUe8qkAg vvVxhRP3tQSEe lcbcEXTtlD7iFPEmiBLhz LujMV4pTBLoswufj433Pr BtJST7HXKygKXsE8LzqA3 yOiAjMDAwMDAw M4EyfUAcRGgqL362HXcaM uS8WWIlbqCcE0UsQUHwoH jjUdQ6q1Y2Rq87YZVKLLI yczwvdGQ+PHRk KIX4nQghIZajQAFibJ1hQ KVhD7c6MgWsRgW4JGryS6 TgBMPzrsyxYb28vB2fMlF nPkI5UClbC7Kd npY7CBNewETdBRxcZBM6B 60yw3V7KBEfYFJdFUE8yH Q9eC8mbYjxhqlnlPXnwEo gdmVydGljYWwt OHtiD442NBQxhIldLtHle WFsZTwvdGQ+SLEtZBI6jG doVAtcUWTguP6oKHWeF9i 0QpQvIsS1SMie J5OtRTToitzsUu91uX7qC vPiRuF6ATwoR5NxhvW2DM VsoAMaKEdkWSY8M13kz2T 5HTOtKJLdUFW1 tLA5jH1aaEarvsviiJQcj DsgdmVydGljYWwtYWxpZ2 85VQWarIkbKp58gKUjtYz sumY9T9YqUsxd dHI+NC57VYYlVU85lIXav MJds2pmbQf6YxVcQQPrRP Q9rDagXMzmz2ZiFKDvZ51 ytSDec9I0CWSm sErgcVPzXyVhyBK9pX1lG Ergtenri8gfvvoqFbkst0 hmtd28yE72X64eWKfeXSN oPSIzMCUiIHZh pJyrkh6nlA5wSh8+PGNvb XL0gIE2pM1gGqSqXfI7HL kdI197AiVvkTPyZigms7c lk9iueZh0OeTo WDFwfdFwcLnaICG0j3UtE u84U65tWPylGLWqNSQoYK QxTADcqKqnrk4elX2fDj3 +XF2as0kggy79 xK86hMX+PBKmKIV8jKytU LcvEWWcsK5zLSrsVgO4TL VaEqDreC78wQFmOMulUn1 igVabmCnvGC9x PWCcghkwl700MtPga6bnT MSrjOYcEZyxADH6Y05er6 B3UFSsYFGmMKG2tWR7wV4 hbGlnbjogbGVm dDsgdmVydGljYWwtYWxpZ 071VWLajFouDdFtuHGiW4 omoaSLYV2lDbpzvDU+PHR iYJD9qDmrZFph VVDzbU6rFGOnS0p7LaGiY vN3OUbzB0AnxwT7PKEtaK IfUXNweGBUnX7bmcnhw2l vcjogIzAwMDAw OMq2LNb0FKFaxKiqGzYcZ PH0EoB7MRQ8jHLdoA3dxT deoswteC3fCth+RklOOjw vdGQ+PHRkIHN0 rEasQZvqFLZbwD3kVWKnE 4y2PvYfFeL3ZYcmH9Ajdj N8SNCnfQNxBXZgzDZLoW0 mtkvtz4unbjdj GzZuZSKpGRv2RVh5PKOhk PwyUaKjXVT0OuE6UWE2mX JpgL1siPigwgataH8oJdz +TVJOOjwvdGQ+ JWAjZGK4bZkzEEgdZXYje T1wZKRvE6c9AmXcLaD5SF ocL1NfrnW9HNCtkAXaMVR rfZXAuP9cmxcp y4wladjkWbHuYVHiAFl9H Aj6GNKyiYtbFfWyLMJ3Sc T4HBX9wWQkqR6vcDxuzze ewH4aRdx+UGF5 WHX7NX17MT10N2KpSwqga GFibGU+PHRhYmxlIHdpZH RoPScxMDAlJyBzdHlsZT0 bAi1vQONqJUQm bGxh (more content not included)... [facility] Consent for Treatmenton 03-0 Consent for Treatment [id number] #1.00CD:127 [facility] Consent for Treatment [id number] [id number]# 1.00CD:127 [facility] Consent for Treatment [id number]#1 .00CD:127 [facility] Consultation Noteon 03-07-20 23 Consultation Note [...] has, # 60 tab(s), Refills(s) 0, Pharmacy: [facility]/pharmacy #[id number], 166.8, cm, 10/11/21 14:46:00 EST, Height/Length [...] Oral, Daily, Prophylaxis fluticasone 0.05 mg/inh Nasal [place]: 1 spray(s), Nasal, Daily, Refill(s) 0, Allergy [...] list: All Problems Palpitations / SNOMED CT 345141770 / Confirmed 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 Hypertension / SNOMED CT 3641315700 / Confirmed Anxiety / SNOMED CT 21642089 / Confirmed Lumbar disc disease / SNOMED CT 6614448406 / Confirmed Lumbar radiculopathy / SNOMED CT 946109270 / Confirmed Chronic gastritis / SNOMED CT 24599453 / Confirmed Migraines / SNOMED CT 80441950 / Confirmed Insomnia / SNOMED CT 061430665 / Confirmed Colon polyp / SNOMED CT 355747027 / Confirmed Chronic leg pain / SNOMED CT 049332259 / Confirmed 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 / Confirmed Chronic cluster headache / SNOMED CT 218477015 / Confirmed Vitamin D deficiency / SNOMED CT 61285659 / Confirmed Hyperlipemia / SNOMED CT 06198123 / Confirmed Osteoporosis / SNOMED CT 623411309 / Confirmed 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 Resolved due to patient discharge. Resolved: Impaired skin integrity / SNOMED CT 16145979 Problem added on documentation of skin impairments. Resolved due to patient discharge. Resolved: FH: migraine headache / SNOMED CT 794354181 Resolved: FH: osteoporosis / SNOMED CT 0097183688 Objective Vital Signs 10/10/2022 13:14 EST Peripheral Pulse Rate 62 bpm Respiratory Rate 12 br/min LOW Systolic Blood Pressure 135 mmHg Diastolic Blood Pressure 68 mmHg Mean Arterial Pressure, Cuff 90 mmHg Gen (more content not included)... [facility] Comment on above: Result Comment: Elec tronically Signed By: Sophy Rush PA-C\.br\Date and Time Signed: 10/10/22 13:32 EST\.br\Electronically Co-Signed By: Derick Meza MD\.br\Date and Time Co-Signed: 10/17/22 18:24 EDT Office/Clinic Note-Nurseon 0 10-10-2022 Office/Clinic Note-Nurse [id number] .00CD:127 [facility] Physician Orderon 10-10-2022 Physician Order [id number]# 1.00CD:127 [facility] XR Spine Cervical 2 or 3 [...] mGy = na DAP = na Normal [facility] Insurance Correspondence Off iceon 09-08-2022 Insurance Correspondence Office [id number]#2 .00CD:127 Normal [facility] INSULINon 08-28-2022 Insulin 53.4 uIU/mL Critically high 2.6-24.9 [facility] Comment on above: Performed By: #### C BC #### [facility] [address] [place] [address] Dr. Jeffry Daniels CBC AUTO DIFFon 08-26-2022 BASO # 0.1 103/ul Normal 0.0-0.1 [facility] Comment on above: Performed By: #### C BC #### [facility] [address] [place] [address] Dr. Jeffry Daniels Basophils/100 WBC (Bld) 0.9 % Normal 0.2-2.0 [facility] Comment on above: Performed By: #### C BC #### [facility] [address] [place] [address] Dr. Jeffry Daniels EO # 0.2 103/ul Normal 0.0-0.7 [facility] Comment on above: Performed By: #### C BC #### [facility] [address] [place] [address] Dr. Jeffry Daniels Eosinophils/100 WBC (Bld) 3.2 % Normal 0.9-7.0 [facility] Comment on above: Performed By: #### C BC #### [facility] [address] [place] [address] Dr. Jeffry Daniels Erythrocyte distribution width (RBC) [Ratio] 12.1 % Normal 11.0-15.0 [facility] Comment on above: Performed By: #### C BC #### [facility] [address] [place] [address] Dr. Jeffry Daniels Hematocrit (Bld) [Volume fraction] 37.0 % Normal 36.0-48.0 [facility] Comment on above: Performed By: #### C BC #### [facility] [address] [place] [address] Dr. Jeffry Daniels Hemoglobin (Bld) [Mass/Vol] 13.4 g/dL Normal 12.0-16.0 [facility] Comment on above: Performed By: #### C BC #### [facility] [address] [place] [address] Dr. Jeffry Daniels IG # 0.03 10e3/ul Normal 0.00-0.03 [facility] Comment on above: Performed By: #### C BC #### [facility] [address] [place] [address] Dr. Jeffry Daniels IG % 0.5 % Normal 0.0-0.5 [facility] Comment on above: Performed By: #### C BC #### [facility] [address] [place] [address] Dr. Jeffry Daniels LYMPH # 2.0 103/ul Normal 1.2-3.8 [facility] Comment on above: Performed By: #### C BC #### [facility] [address] [place] [address] Dr. Jeffry Daniels Lymphocytes/100 WBC (Bld) 35.4 % Normal 20.5-60.0 [facility] Comment on above: Performed By: #### C BC #### [facility] [address] [place] [address] Dr. Jeffry Daniels MANUAL DIFF REQ NO Normal [facility] Comment on above: Performed By: #### C BC #### [facility] [address] [place] [address] Dr. Jeffry Daniels MCH (RBC) [Entitic mass] 32.8 pg Normal 26.7-34.0 [facility] Comment on above: Performed By: #### C BC #### [facility] [address] [place] [address] Dr. Jeffry Daniels MCHC (RBC) [Mass/Vol] 36.2 g/dL Critically high 29.9-35.2 [facility] Comment on above: Performed By: #### C BC #### [facility] [address] [place] [address] Dr. Jeffry Daniels MCV (RBC) [Entitic vol] 90.5 fL Normal 81.0-99.0 [facility] Comment on above: Performed By: #### C BC #### [facility] [address] [place] [address] Dr. Jeffry Daniels MONO # 0.6 103/ul Normal 0.3-0.8 [facility] Comment on above: Performed By: #### C BC #### [facility] [address] [place] [address] Dr. Jeffry Daniels Monocytes/100 WBC (Bld) 10.4 % Normal 1.7-12.0 [facility] Comment on above: Performed By: #### C BC #### [facility] [address] [place] [address] Dr. Jeffry Daniels NEUT # 2.8 103/ul Normal 1.4-6.5 [facility] Comment on above: Performed By: #### C BC #### [facility] [address] [place] [address] Dr. Jeffry Daniels Neutrophils/100 WBC (Bld) 49.6 % Normal 43.0-75.0 [facility] Comment on above: Performed By: #### C BC #### [facility] [address] [place] [address] Dr. Jeffry Daniels Platelet mean volume (Bld) [Entitic vol] 8.9 fL Critically low 9.5-13.5 [facility] Comment on above: Performed By: #### C BC #### [facility] [address] [place] [address] Dr. Jeffry Daniels PLT 343 103/ul Normal 150-450 [facility] Comment on above: Performed By: #### C BC #### [facility] [address] [place] [address] Dr. Jeffry Daniels RBC 4.09 106/ul Critically low 4.20-5.40 [facility] Comment on above: Performed By: #### C BC #### [facility] [address] [place] [address] Dr. Jeffry Daniels WBC 5.7 103/ul Normal 4.0-11.0 [facility] Comment on above: Performed By: #### C BC #### [facility] [address] [place] [address] Dr. Jeffry Daniels FREE THYROXINE INDEX T7on FTI 3.64 Normal 1.30-4.50 [facility] Comment on above: Performed By: #### C BC #### [facility] [address] [place] [address] Dr. Jeffry Daniels T3U 34.0 % Normal 30.0-39.0 [facility] Comment on above: Performed By: #### C BC #### [facility] [address] [place] [address] Dr. Jeffry Daniels T4 [Mass/Vol] 10.70 ug/dL Normal 4.80-13.90 [facility] Comment on above: Performed By: #### C BC #### [facility] [address] [place] [address] Dr. Jeffry Daniels GLYCOHEMOGLOBIN A1Con 2022 ADA RECOMMENDATION SEE BELOW Normal [facility] Comment on above: Result Comment: ADA RECOMMENDED LIMIT 4.0 - 6.0 ADA THERAPEUTIC TARGET < 7.0 ACTION SUGGESTED > 7.0 Performed By: #### A 1C #### [facility] [address] [place] [address] Dr. Jeffry Daniels Glucose [Mass/Vol] 120 mg/dL Normal [facility] Comment on above: Performed By: #### A 1C #### [facility] [address] [place] [address] Dr. Jeffry Daniels HbA1c (Bld) [Mass fraction] 5.8 % Normal 4.5-6.2 [facility] Comment on above: Performed By: #### A 1C #### [facility] [address] [place] [address] Dr. Jeffry Daniels IRONon 08-26-2022 Iron [Mass/Vol] 64.0 ug/dL Normal 50.0-170.0 [facility] Comment on above: Performed By: #### I SUMMER VITAD #### [facility] [address] [place] [address] Dr. Jeffry Daniels LIPID PROFILEon 08-26-2022 CHOL-HDL RATIO NORM SEE BELOW Normal [facility] Comment on above: Result Comment: 3.3 - 4.4 LOW RISK 4.4 - 7.1 AVERAGE RISK 7.1 - 11.0 MODERATE RISK >11.0 HIGH RISK Performed By: #### T SH, CMP, T7, LIPID #### [facility] [address] [place] [address] Dr. Jeffry Daniels Cholesterol [Mass/Vol] 267 mg/dL Critically high <=200 [facility] Comment on above: Performed By: #### T SH, CMP, T7, LIPID #### [facility] [address] [place] [address] Dr. Jeffry Daniels Cholesterol in HDL [Mass/Vol] 45 mg/dL Normal 40-60 [facility] Comment on above: Performed By: #### T SH, CMP, T7, LIPID #### [facility] [address] [place] [address] Dr. Jeffry Daniels Cholesterol in LDL [Mass/Vol] 178.8 mg/dL Normal [facility] Comment on above: Performed By: #### T SH, CMP, T7, LIPID #### [facility] [address] [address] [address] Jeffry Daniels Cholesterol.total/Cho lesterol in HDL [Mass ratio] 5.9 {ratio} Normal [facility] Comment on above: Performed By: #### T SH, CMP, T7, LIPID #### [facility] [address] [address] [address] Jeffry Daniels HDL NORMAL > or = 60 mg/dl - LO W CARDIOVASCULAR RISK <40 mg/dl - HIGH CARDIOVASCULAR RISK Normal [facility] Comment on above: Performed By: #### T SH, CMP, T7, LIPID #### [facility] [address] [address] [address] Jeffry Daniels LDL CALC NORMAL SEE BELOW Normal [facility] Comment on above: Result Comment: <100 mg/dl OPTIMAL 100 - 129 mg/dl NEAR OR ABOVE OPTIMAL 130 - 159 mg/dl BORDERLINE HIGH 160 - 189 mg/dl HIGH >190 mg/dl VERY HIGH Performed By: #### T SH, CMP, T7, LIPID #### [facility] [address] [address] [address] Jeffry Daniels Triglyceride [Mass/Vol] 216 mg/dL Critically high <=150 [facility] Comment on above: Performed By: #### T SH, CMP, T7, LIPID #### [facility] [address] [address] [address] Jeffry Daniels VLDL CALC 43.2 mg/dL Normal [facility] Comment on above: Performed By: #### T SH, CMP, T7, LIPID #### [facility] [address] [address] [address] Jeffry Daniels PROF 14(COMP METB)on 023 Albumin [Mass/Vol] 3.6 g/dL Normal 3.4-5.0 [facility] Comment on above: Performed By: #### C BC #### [facility] [address] [place] [address] Dr. Jeffry Daniels Albumin/Globulin [Mass ratio] 0.9 {ratio} Normal [facility] Comment on above: Performed By: #### C BC #### [facility] [address] [place] [address] Dr. Jeffry Daniels ALP [Catalytic activity/Vol] 58 U/L Normal 46-116 [facility] Comment on above: Performed By: #### C BC #### [facility] [address] [address] [address] Jeffry Daniels ALT [Catalytic activity/Vol] 41 U/L Normal 14-59 [facility] Comment on above: Performed By: #### C BC #### [facility] [address] [address] [address] Jeffry Daniels Anion gap [Moles/Vol] 14.5 mmol/L Normal [facility] Comment on above: Performed By: #### C BC #### [facility] [address] [place] [address] Dr. Jeffry Daniels AST [Catalytic activity/Vol] 27 U/L Normal 15-37 [facility] Comment on above: Performed By: #### C BC #### [facility] [address] [address] [address] Jeffry Daniels Bilirubin [Mass/Vol] 0.2 mg/dL Normal 0.2-1.0 [facility] Comment on above: Performed By: #### C BC #### [facility] [address] [address] [address] Jeffry Daniels Calcium [Mass/Vol] 9.2 mg/dL Normal 8.5-10.1 [facility] Comment on above: Performed By: #### C BC #### [facility] [address] [address] [address] Jeffry Daniels Chloride [Moles/Vol] 103 mmol/L Normal 98-107 [facility] Comment on above: Performed By: #### C BC #### [facility] [address] [address] [address] Jeffry Daniels CO2 [Moles/Vol] 24.8 mmol/L Normal 21.0-32.0 [facility] Comment on above: Performed By: #### C BC #### [facility] [address] [address] [address] Jeffry Daniels Creatinine [Mass/Vol] 0.76 mg/dL Normal 0.55-1.02 [facility] Comment on above: Performed By: #### C BC #### [facility] [address] [address] [address] Jeffry Daniels EGFR-AF SLOVENIAN >60 Normal >=60 [facility] Comment on above: Performed By: #### C BC #### [facility] [address] [address] [address] Jeffry Daniels EGFR-NON AF SLOVENIAN >60 Normal >=60 [facility] Comment on above: Performed By: #### C BC #### [facility] [address] [place] [address] Dr. Jeffry Daniels Globulin (S) [Mass/Vol] 3.8 g/dL Normal [facility] Comment on above: Performed By: #### C BC #### [facility] [address] [place] [address] Dr. Jeffry Daniels Glucose [Mass/Vol] 109 mg/dL Critically high 74-106 [facility] Comment on above: Performed By: #### C BC #### [facility] [address] [place] [address] Dr. Jeffry Daniels Potassium [Moles/Vol] 4.3 mmol/L Normal 3.5-5.1 [facility] Comment on above: Performed By: #### C BC #### [facility] [address] [place] [address] Dr. Jeffry Daniels Protein [Mass/Vol] 7.4 g/dL Normal 6.4-8.2 [facility] Comment on above: Performed By: #### C BC #### [facility] [address] [place] [address] Dr. Jeffry Daniels Sodium [Moles/Vol] 138 mmol/L Normal 136-145 [facility] Comment on above: Performed By: #### C BC #### [facility] [address] [place], [place] [id number] Dr. Jeffry Daniels Urea nitrogen [Mass/Vol] 22.0 mg/dL Critically high 7.0-18.0 [facility] Comment on above: Performed By: #### C BC #### [facility] [address] [place] [address] Dr. Jeffry Daniels Urea nitrogen/Creatinine [Mass ratio] 28.9 mg/mg Normal [facility] Comment on above: Performed By: #### C BC #### [facility] [address] [place] [address] Dr. Jeffry Daniels TSHon 08-26-2022 TSH 1.963 uIU/mL Normal 0.358-3.740 [facility] Comment on above: Performed By: #### C BC #### [facility] [address] [place] [address] Dr. Jeffry Daniels VITAMIN D 25 OHon 08-26-2022 VIT D 25-OH 44.6 ng/mL Normal [facility] Comment on above: Performed By: #### I SUMMER VITAD #### [facility] [address] [place] [address] Dr. Jeffry Daniels VIT D RANGES SEE BELOW Normal [facility] Comment on above: Result Comment: <20 ng/mL Vit D deficient 20 - <30 ng/mL Vit D insufficient 30 - 100 ng/mL Vit D sufficient >100 ng/mL Potential Toxicity Performed By: #### I SUMMER VITAD #### [facility] [address] [place] [address] Dr. Jeffry Daniels Coding Summary.on 08-25-2022 Coding Summary. CD:[id number] G h0bWw+PGhlYWQ+AS8RVHG pJ97lkYMviG8GU9kHIS8N XXGDZXEIPQ4XKZ1naQJ9R KqkV4RntkZy IbbdxRWtED17CTy3YLN5z AqgBDysoB9nnDGvB1b3Ff IxNB42zI87IRkmSDQvMgC 3LjZpbjsgbWFy M3mdZaJpvXBhVsb+PHRhY mxlIHdpZHRoPScxMDAlJy PycAxwSV4tRm2gZRUuFMN vbGxhcHNlOiBj q6ykSJEkUXdbYP1jbBsjE 6PyoQL7EFVbk9n2Ho33mU I+QLYiOJN1wAzbDYata94 5CcXav6ctJGL6 qFTyPTywGYN0R90sh8X8V OSlCCPvPZZ5bQP5zF9txU pegpqqI1AsfHPvLhS7DJJ 1rXJmeI5peCoy yibirP3mWep+J60WXX0IZ HKLGU4AHhf3B0JjSnaydM I+VX77RTEnBR60eFOxfFG wd3tppMb0HfOj HNUyMQN2cWifUYmrw8MlW AToB14kbVGkw6J7DTIorG zncEKcSdLzzAJ2lD8aLYl bfzbys9shjllr Agedq2kdre21qM13J10sH WtlBLVjZOM9ILXtHTZoyL lxqg8njQ4mRw7+EGcjm1e us6kirFx8AxEr VYMtnvNsaUcyJKX0i7IwZ c50C3YvbTbhc0LiNlk2mf 14aFPcy7H4qOL6KZuoVWW moY8dYPodGbN6 XRWdRoNkaR35aKQmEWkwM q1qeMpvvZlcUO2uXHGcry uyDIAwtO8xTDUhqOAcaBe kLG7vRSKhfzoo w056CwGpJGI9XDJmvKCbR 6DxxU4oDvMcDLDbVBUnS1 EykAOuBKtwL939XZazBhV 5CULbovMlZ3Nk RUUelYpxEzZ1c3G9Vh2Lj 1FmmxqbVOH3KLnsIMItBb LtSdKtXdY7I8UeDvi2QQZ pfFszVH7iT5Rs XVVnfnmewesrcUT8RUZgE MHmqL53gPEzKNphKb7sx4 T5g472EUVtKEOymI79Si4 udDogMTBwdCBU vX1simcuw3bkdahuXxGvJ ZGlGWl4EBy3DEFchMqgHi IgGKF2LuB7MSG4sTDegY1 uvZjmtcylvO4v Oyc+Z24scF5dQUV3QYF1v nhbJWWefbHcBZ47ZT06W5 RyPjwvdGFibGU+PGRpdiB gqQrhZW1bMbLr k9mpl6JfLOhxL8YfUXNmW EegEaq0VEYsQRX0kAZ3mV 1sMJOfIPkbf5Z6mHC3F1I udjMqyy1qc8eo HENeLWnsE92vuTOpv9A9Y CWnsYY6GSVorRwpDuFvbN 93Oyc+XIBhxAsyk5SsFwh ut6mnq6oaqDf2 MfFgNTXppjXziXgbAHZ1p 3TfDl34T26mBLrgZNArOU ClFQOnIDXirGkkwu9hrN6 wIi8+PGNvbCB3 hUQ0hV3zIUXsOiD9IYjuP 144ZiVdrLPaShtch9ume2 uyeHm5NsUdFXKnxwRzdEl hVZI9y2JaCd83 P66qWXttLPAzCIRnBCVrM EPbgXaaxx5noG2jTw6+PC 2vn3bklx74oO22dAA+PHR lAMY7nYnbNZzw PPAvfZ3iWSmxVfG2YHBiD vPctE21xTZaOTgxLj6roT fxiAzyXB8pBOGmkbvji41 4KuIsq3scLTDn zWPwLNlvLRI1T38cp9J1W IMqWSKhTDG6nKQ0sS8vkW lnbjogbGVmdDsgdmVydGl vCOhdNNncJ214 IHRvcDsnPlBhdGllbnQgT eGaVBj2J3KgXys1ZGJggO ntTY0ojMKhSKhkEo4ocEu atWwbDJ2dJAAm kozzr297BiEeb5zzMBZfk VJoTIafDUQ3C04vf2V8ZS TnVJWeXGI7pXQ2sN3xtLa nbjogbGVmdDsg dnKvuNfeUPpkVInqT927R HRvcDsnPkJpcnRoIERhdG E2TJ22SJ33aHYom9H7wIE 8J0ObAREhoqzq rvvpfTR5CUEpIFFzmT89P z4imAjwTr4dIQBoYAG3HL JbpZErK9TowS9iUmTkQEC iRHRpN1VmvCQg KBlqN088HPksHzT7QWKti lWsQ7AkKIZsaMdoFgK0l3 C0Gp4MB4L1YH03TV25aXQ mw2X3vXB7N2Ck ZWSmfloawyzrqFI4ODZiP DTnuZ69Dc6pqZriId3tTO HzDMP8OQOceAOhR5DccD4 yOiAjMDAwMDAw O1CcbQFmYKlmZ149CVkjA yU3ADYtflCgN6SzNAFlwI iiPjC4u4T4Dv3AJQd7ZK7 1CR52gRSah5W3 eVB9H7MsVNCwsqbljuphs FX9JDAdSRLzrF18Ws2mjU cxZc4qTLHaLID4FYYrtNO fE5JxsL1sUfFq FMEvLGIwF6UyjCQcGHyuG 306WWjaCdH3FDSbevNxN9 NwCTYliWxvZvK6v7R3Ip8 TQMMfLO61KAN0 bLM0QS67PJ43K7LaZmmqy GFibGU+PHRhYmxlIHdpZH RoPScxMDAlJyBzdHlsZT0 qKw4aKXLzMQOg zYozjALpDkRmt4jlQKIyI TgbHS1orHjbO5AljCL0RG Txq5n2Et89M82yV0BdvUA +IEPusNU9ySB2 wU0zDtVbCkC3WQqnC478C lYypJDaFxjon8nkn7tvuT n1BbJ9JULwsiIneBdkFUU 1x0IfPo40P79u IHdpZHRoPSIxNSUiIHZhb Vxjso7arW6lQd2+PGNvbC L2tTU2gQ4yQpMzJcW7LJb xN035VxFtyVBt Tjdwq7cdw0dliSk3GzBlZ GHhncNtiIlwQLQ0m4ZyDp 04U2HajRwgx7FaVpf5ry6 0jPOrk1T8yRY9 Q2AhEIFdwoydnRHxkHmxB A9vEMEmmkozQRCvzM9fLZ FbE9g7CbWjCqI5NXjeQ7E czwZ0ZCYhfVWu QYdjCQH7O88qm6O9XBMsG LCuVVD7yVR8wU8xfLjzyu ogbGVmdDsgdmVydGljYWw kQSioZ612UJNe bXsaLUTzoO0lPRGruDBfy TbwZB9vDATvjmhqBvTFFZ 5OKZBcXNsSFHWLFBQ6Y3X vRiv7MRVoeJgf LE9dbASgYHggOx5maLnja FfyLM2jRNRehuodJMSwxP 8sORFtiYCvkKzzLE7gSBT mbmymt809BjCz TJL1KICatTMzO5ZxtM6vD lPcVORdILXjH1RlfTHlLH erE695PBkbXrE4VOJzaaI dK1RaQFMpuSje WcH8i8X9Xe1jSF1tCR2lX BPgUX61AC86lQFte0Q1oW S4K6MvMECiwsfwfaynaUQ 7OVReYRAcqC71 tEIjPHcyVm4ks8S6w404O HEpTDOigF20Mn2mkUhaPX QseSSScG8yzerwn1dewvt gIzAwMDAwMDt0 LGt9FOTbuFbkEkObCSA2F qJ8DCK1pPRmwX8xhGvkcf zutF7lLkw+NjAgWWVhcnM 9Z4NmVkv1ZMGb kPulVE6buBPpOVqrBx3vq SbtjCqlRB9sHJLxliuzJV XpjD6lWFFmePWwrMqyAU0 kGLGnrturg207 CyRwAUR3VGFjfQAmC1Trr Z7jCgVdPXBgHNAlO8OyaV GhPVbzG123JKlsMnE6KPJ fcfNiT6YzUEGi dVclVlL3x2A6Yv7JQE9fx UO8N0FpXsm2DKExcBasPD 4ryLFwYJutQo0huGsmrWe iWN6fZAGroobs GFOztC0wEFItpSIqfNtpT G4cZWRcvedqs390PcNkWA G3ASIcqDRoZ3BfsM9yApO gSIWrAEDiZ8Ql sTNeGZbuH094ZZnrFpG6Z WTrzrBxF1MnNUNutOpdHl A6x1O7Vm2FSXugZC3qgqJ mHU2kopI6I8Eg PjwvdHI+IL79OJDcBI65e JWkeGCku8mocCt1LuZpVT ZjAGL8hHuxCWbum8YeYXA hX44tfNDid8D8 CZVvvIpzwGTqIwKgaTN4i K4kMOphwfdkt9kdhyfdXk jpm3jgny88fI99J95aBVt pZHRoPSIzMCUi MLLkcBpedt7jaL6nCc2+P AZfnLK6kEN1qM4cOkIvCm O9OFvoM189WzYleUMiZco kk2tyu7gvtBh4 IjFtPHTkipXazWfpRZQ1f 9FiYs28C18gKFyxMSMuYD OuNHDaSLIfdTfcns8ytR0 wIi8+JK5ws5pm pj24kU07dBY+HUXkPPZ5n HvkEYrsEKFmiE8hJMbkAz Z0FPKhBaLrjE92iJObWHu tLv7quTdivMdx GT7sUEHnyxohq657LmDqr 7xvHKXamMDzUYyzQHD6C2 7tv1N7JAYcYHVqLHR9rHR 0nF5fnXtahkkx bGVmdDsgdmVydGljYWwtY TkeA422OEVpdMzqPsYmnZ DsU6nywiMNNL3sKthmdPD +AZHdYHY9jKiv BMfeAYGxgY8gPHVnZ1t4D sOcWnP9SCorW0GoyuO5FI SwnYQaJBBilHNTzV5tfty wd9fgzdjbEoHa KPGzMAo8QUi9PLKxiNupK vWqGNR4BgY8XHW7bJRzfW 6ziBseswvafF2zLun+Rkl OOjwvdGQ+PHRk LRE6cVxzUIqkYVCnvC0rF OGfH6a8VmNnOcL0IQsfD5 NwgaQ3TYUyyNWlUMGwdCG TmJ7fvjozi7br ptajMzTrOAYvDKd8BRm4W YKrbQraCaHgCDE3BmB0RC W5eYWwxY1peDuvgfaedH2 wOyc+TVJOOjwv dGQ+HLKdMEQ6rLcfITjlH OBrjU3tVQQrQ4l4NaRfAa D3WFseW3WivqL7FGWzkEO sBEFbrLEYtN4v mljlz0blgnluMxXeXMLiT Zu8EVt1MYMmgEreVwByTT V4KcX6HVV5rQPrrR4bhVu irtdlrQ3sIno+ LCF8QZX4DY88PW33U1VoD jwvdGFibGU+PHRhYmxlIH dpZHRoPScxMDAlJyBzdHl vGR7jMz6fDUYa LWNv (more content not included)... Normal [facility] Insurance Correspondence Off iceon 08-24-2022 Insurance Correspondence Office [id number]# 1.00CD:127 [facility] Office/Clinic Note-Physician on 08-23-2022 Office/Clinic Note-Physician [id number]#1 .00CD:127 Normal [facility] Consent for Treatmenton 08-06 Consent for Treatment [id number]# 1.00CD:127 Normal [facility] Consultation Noteon 08-22-19 Consultation Note Patient: ELISA [...] has, # 60 tab(s), Refills(s) 0, Pharmacy: [facility]/pharmacy #[id number], 166.8, cm, 10/11/21 14:46:00 EST, Height/Length [...] Oral, Daily, Prophylaxis fluticasone 0.05 mg/inh Nasal [place]: 1 spray(s), Nasal, Daily, Refill(s) 0, Allergy [...] Problems Abdominal pain, RLQ / SNOMED CT 315417685 / Confirmed Anxiety / SNOMED CT 23266802 / Confirmed 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 BMI 31.0-31.9,adult / SNOMED CT 079510827 / Confirmed Change in bowel habits / SNOMED CT 096522192 / Confirmed Chronic cluster headache / SNOMED CT 252984738 / Confirmed Chronic gastritis / SNOMED CT 16165250 / Confirmed Chronic leg pain / SNOMED CT 900978533 / Confirmed Colon polyp / SNOMED CT 782391403 / Confirmed Diabetes / SNOMED CT 587728766 / Confirmed FHx: melanoma / SNOMED CT 2519684145 / Confirmed H/O: osteoarthritis / SNOMED CT 930173558 / Confirmed 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 / Confirmed History of Helicobacter pylori infection / SNOMED CT 9558474147 / Confirmed Hyperlipemia / SNOMED CT 90418637 / Confirmed Hypertension / SNOMED CT 4889728609 / Confirmed Insomnia / SNOMED CT 572858963 / Confirmed Irregular heartbeat / SNOMED CT 484386833 / Confirmed Laxative abuse / SNOMED CT 360834161 / Confirmed Lumbar disc disease / SNOMED CT 9378853753 / Confirmed Lumbar radiculopathy / SNOMED CT 860265639 / Confirmed Migraines / SNOMED CT 44592215 / Confirmed Osteoporosis / SNOMED CT 914440299 / Confirmed Palpitations / SNOMED CT 723370454 / Confirmed Rectal bleeding / SNOMED CT 467626113 / Confirmed Vitamin D deficiency / SNOMED CT 45642631 / Confirmed Objective Vital Signs 08/22/2022 13:06 [...] bilateral lo (more content not included)... Normal [facility] Comment on above: Result Comment: Elec tronically Signed By: Sumit MURILLO, Eddi Edwards\.br\Date and Time Signed: 08/22/22 13:33 EST Legal Correspondence Officeo n 08-22-2022 Legal Correspondence Office [id number]# 1.00CD:127 Normal [facility] Office/Clinic Note-Nurseon 0 08-22-2022 Office/Clinic Note-Nurse [id number]# 1.00CD:127 Normal [facility] Office/Clinic Note-Physician on 08-22-2022 Office/Clinic Note-Physician [id number]# 1.00CD:127 Normal [facility] Patient Correspondenceon Patient Correspondence [id number]# 1.00CD:127 Normal [facility] Patient Correspondence [id number]# 1.00CD:127 Normal [facility] Patient Correspondence [id number]# 1.00CD:127 Normal [facility] Patient History Officeon Patient History Office [id number]# 1.00CD:127 Normal [facility] Coding Summary.on 08-04-2022 Coding Summary. CD:[id number] G h0bWw+PGhlYWQ+XK0FXHT cC23dbJGtmM0NN5gPMY4G FQXACBZRIX4RZN3drOM3M ZtzG6XxalOm JgeziTUyUJ79WOa9XSK9b PbuHFigvH8ukWZpV8k1Px IfGL73bX18XUiiWNKuOfO 3LjZpbjsgbWFy F8fkAtUudFRqLcc+PHRhY mxlIHdpZHRoPScxMDAlJy DzlRsiVT5mAu5hORIzFWZ vbGxhcHNlOiBj s6exXHMaRRthDF2krGarP 0ThmGD8JTGum7h2Ae02zI I+LBVgJHW0qBhgNMhfm66 6DaCnu6fvYJZ6 jMJgBCnvAFZ1T63lv2U7I WUhMVGrXZI9sYU3wB9akG xzfbdcJ4GzsTCpIeA7SWQ 2xQTlsK6moVtd nefazH7rCfl+B14JTM3BW AXFFO4KLwp8M3JfExaclD I+JJ74EFCjGO48rQWdwVC wj9punNm2WaUo UWIkVNH8pUszHPqrj7ZkX EVrH93fdSCmq8E7VHDeoN czpHTjKjHqbMT4wG2qXDj ldjhse2ddqyok Lmdyy0oxeg25cT11O12mV FjdXEGfQJZ9PAFbOREmjJ vkbe5keS7cTr9+QDhpk6n nz5rxlCs9YeNl NHFtliBfjMugESJ5o7QwV t27J7VkwXetz9NaOtc7zk 23oOVrl1H4nOC6LVfzMQS rlE6mPYzjRiB5 REYgYgTwjJ63fKVtNAbsT f3yyBzocXgjJW2dFXTswu pcBMMsnV4hSTUueDWayMa nSD3iNLBklgns g447NkUrJON0BMNapRGrI 5YkgG2aReVlNWOsPHOuM6 ZcnOBaKBqfF551LVzzMmY 0GRQvboDdP4Sr RKUtkEaaWeG8g1Y4Tk9Sr 5CerngiUZQ8YLjdTOYqQd DlBuKeRgX1B0QmXad4MHW plFtnWW2xG7Xq NLBujwbbdafdxZK3JIRxH NNykC00cZTkFHoeXj3yb0 A0q746UQOnHHXmrZ44Ai6 udDogMTBwdCBU dV1mcaliy2zzabrvQyMyD BZgYKo4OVb2YFQzaHlaZm TcFRZ1XfX0XKE4cTIdnJ6 pyXptzifcpS0o Oyc+R60znD2zWES5NIE1o nkoUCRzdyYxCE38EZ03R2 RyPjwvdGFibGU+PGRpdiB zfCusII1qUbMb x7jrr8CiLPgdV9BxWDQpX DhdHyq2SWKqSRF5tUA9gH 7dCLVkLWlsw5M5gJI9Q9L cdoGddv7el0ao GQFqVImfB92voPRed8N0F RBmuYY6AKJthOtcOtLgxX 93Oyc+HTCciZmzk2YbVkq ng0dpv5hmdKp9 NzBiXXYxbxZfgDpwWWH5f 0YsWr55E50vEZcpDAEdUY LcEWKuUTIgtTfyir4wvQ7 wIi8+PGNvbCB3 lNZ0jT5aTCJuOlW3DZorT 469YzXhoLJpGkeyx4yqr4 drsGa3BkImUXEuumVxaSq hJGA5p5SjFy88 Y43iPHnkQGPwAGCkFCNvJ JZnoMwpwi5lwA5vQd3+PC 1ts5iftd36hI27lAG+PHR oCRA5wIkzEPeb LRVskK4jDMvoOvT1OFUwD fMvqI49qBZsALkmDi3xmT wpxWmyYB4nBGOsjhfcg79 0CaQyc1szIENt hMSoNUmaKNU0A88ir3T9K JEfKPAuPFV9hOY5aW6vfF lnbjogbGVmdDsgdmVydGl xBRvuOExkL402 IHRvcDsnPlBhdGllbnQgT nSeTUd3M7LfRdz5BYAdhR jlEY4soFFlBTmaUa7lkWd goHxnAF6rHAIx ncvja899GnBof0buCONyx GSjQZiiEDV8M13bv2U9VD UjQPRyKZB9pVX8cP2stBs nbjogbGVmdDsg mqNhoOzjHUaaOZcnR430P HRvcDsnPkJpcnRoIERhdG R7UR37AS22yTXac7Q4fTL 7U2DeOIXosync xzswxMB6BHWmSPPopI61I x5naRvmEf1kSRHwSHA8HV TllXVoR6GynZ2nTeMoEAE bFPAvP6YlgKKc AUgiQ512EXzgKqI6KTBlu dAoE7XgBOZduXjvFbQ3x6 U2Sg0YI4V9PY56QR68yBD uw7E8hDH4U2Gg LETiiwlyufbibYC5VDTyH IRzuH33Om1grRfrCh5qZX QcQSB1TTVolJSfJ7RyiQ6 yOiAjMDAwMDAw W5EwbEIjKAcxK900RRmpE vK1UTKxigWjI2ThGIOvaU svPjW8l9S7Jg6KGKh6NG7 3JH65wHMkk6Y1 cPA5E3OoNQXqydtsbfbmw QR7GITzTEBxxQ90Bs2jeX pwCy8nYIGpWZV0JRHajBO wZ9AsfQ9wOqYq ZMUzUTMoD4AmbKEwQSnxX 237BUlaYyD0DPRcloAlV1 UbGRGlzQobTrE0t5Q5We2 XDCMpXU94MVW1 bBI6XT01RE04I5NwGlcob GFibGU+PHRhYmxlIHdpZH RoPScxMDAlJyBzdHlsZT0 aDz6jLDMxILGw xAvsdFMfGfEnt1pgLDSwV SsyGZ6wvMwsK2CooLP8OF Wfq7o7Mi25A75rW9MczSY +JAEomGO7jRA4 kT0bVpSfWkV3XBokA605O zPtfGLlSwqvo5gfh7rulW p8YzC7UJArlyTpmBlpXMH 1u5MzBu77X00d IHdpZHRoPSIxNSUiIHZhb Fvmat0nzT7rTh6+PGNvbC I1gXX3iL1qRtGoQeS2ZKg vB602XoJvvOXs Uxcdf1vcq0jojXp5HsIsQ ILvlmZciFvtJVP3o1DeLk 92J7NbtMljt7DaFyy1rl7 9kZTjb6M5aMA6 B1JtORTknvbvlOYqlKwsT M6uXUJpwcrdSFSobR6qGV LtP4t4IoBoHxA1WDqeD7Z dphW6XCBvtHEf WTetWBD2Z49eg5K2XKLmM EKrCOI4vFP1pL3rpEbvzu ogbGVmdDsgdmVydGljYWw tOXpsU189DUSg aTqnTQIafW7dORQkwSVnn ZwyLE6sYLWpruquKkXMCA 0BJVCiNQbFJYZGDVT8K5Y dMmy8HZSflAca PB8dxAXkKYguSs0vqZtsn LfxVS5rKBTbjvutGOQslJ 8yYIYauNDhhFshFH9cRPS zvytix979VtOp EDV0GOPfcOUjV8ZxoO8kO oBqFMFmDZXxM2DhnADtSA vyL737LCjtAgK1UCAkdmA yN6XvSAVakHdp DxV1n9F9Zx6mIH9gBW5mI TBqWI37GW19fUVak8N6gB Y9H2KsSPJknexrfmggdCU 9HYTxGLJodW13 hGLtJXdiAk0me3K3z339X QDxATNtlG73Pj5wrVnvOX QbbYWZdK2jzoylv7whzrr gIzAwMDAwMDt0 BEf8ZUBehMtbRtOrZOC5C iE3MIH2mOEdkJ6mqEaxgl xlvU1gIxv+NjAgWWVhcnM 0O4NdBky1VGLa cZglBT8teJLvLAhsJq5az NwxcOvcLP1jOXAvrzkmXV GvmK5sDJMhcZSneSbiZX0 aQCEeykvst357 ZxCbMOX7VQPfySRmD9Scl X3sIqKuTNByHGQtS7WwrZ RaKFlpX553DPfcKhG2RVH ipfAmP1GjYJIk sQqnPoT2y4W4Gb8OUJ6km NP1C7FxYof4PDYldFvbJS 9hoBVaRHsgNf4vxSpwaCq hBF4cTFAjnvvi SFYurF6dQJFygNKiyQvpT F8mAYBngqqhh047QdBlON U4RJFhzJAaJ3EplD6lQeM cZYJpVYKhZ6Wj fZEfIPxhE116SQzdRzW1Q MCktwFeT6VrRQDbkQppKl H8n6W3Hx6VJErhHN7nycR iJI4bweR3C9Cg PjwvdHI+AM01SDEkSO46s LVklREzx3larBa4QoMzJQ HlAKW7xYhuPQtvu3AuWID iW15cgYHmh0I7 KBLjjSbbyQIaVlYdqZV6t B4yKPijdubqg6hzussjHr ktp2ckft26hW44A64rUTo pZHRoPSIzMCUi IVJlaAwpie2ugM6lEo4+P FMkvYQ7dRE8vC3vGeUdXo K6CPdyU914MvGujWDyTho cj2pxl9zvkXe1 RcGkGIIahiCnqSbtOTM5u 4ZoYf13Z63yACoqEKAkDZ QvUPSyOVXpyErgfv7ijE5 wIi8+QP6xn3hf mt48eL88lVT+CVElXDC8z WvzNVioUHOrzA3rBZnaBr R2GZZzRtXugH17yJRtSTt bHh4gbBlygCaf DO4iLMEbgkeix290UyLlv 3oxUXWphUIyLHnkCSW4F4 6vv4V2HIZbINCxAVJ2sBN 5aA8azPsjedjk bGVmdDsgdmVydGljYWwtY GsuT163MGRrtMfpJvYxyO SdJ5fjikBKQW1qFxtepCR +CKMvTHS5kJjd AQqnYQNdmA5uFIKoN1w2O vLeFcT4VQkbQ6FvcoF7CY ImrYOzEPKjeLDOoM1xwrn gg0oyheubYjPs JXXzNAy9NQf2BJEzvFskB pUwXOO8TaH7RZN1wOAwfT 7cbPeogrscuE4qDpl+Rkl OOjwvdGQ+PHRk KZN6dHwpKEhjGLHnaR9yS DReJ4h9MkSlRuC7NPzrF9 TzikF8TTLmbBVlUGTpjDE ZuT5ofaygz8ps yckbKoRkUHTkSLx8XYh4C IFvfTboZgFaARP1CwV5AR Y8sWOcuT6jfBpteefzzQ7 wOyc+TVJOOjwv dGQ+HVHgNRN8cLynWRdwZ YXgkL0xBUBeO9h8CqDhSq E3QRvmO2UiwtW4MEUmyWP xUSWtvXGPsH6g ugzcu0sfjsluYwVcIKUcF Yi4EZe7NMYntJlyQfHiRE V8ZvF5UZB9nETpaU3pdWr barvlzL2rJtm+ IXW4XMA7LQ13GU98F0DnH jwvdGFibGU+PHRhYmxlIH dpZHRoPScxMDAlJyBzdHl xXV1gXm2mTKYe LWNv (more content not included)... Normal [facility] Capillary Glucose POCon 07-07 Glucose [Mass/Vol] 103 mg/dL High 55-99 [facility] Comment on above: Performed By: #### 2 [id number] ####[facility] [address] [place] [address] Consent for Procedure/Surger yon 08-01-2022 Consent for Procedure/Surgery [id number]# 1.00CD:127 Normal [facility] Consent for Treatmenton 07-07 Consent for Treatment [id number]#1 .00CD:127 Normal [facility] Discharge Instructionson Discharge Instructions [id number]# 1.00CD:127 Normal [facility] IntraOperative Documentson 1 10-02-2021 IntraOperative Documents [id number]# 1.00CD:127 Normal [facility] Main OR Intraoperative Recor don 08-01-2022 Main OR Intraoperative Record IntraOp Document Type FTPM Summary Primary Physician: Eddi Arana MD Finalized Date/Time: 08/01/22 15:35:58 Pt. Name: ELISEO ELISA Amita Delacruz/Sex: 1960 Female Med Rec #: [id number] Physician: Eddi Arana MD Financial #: [id number] Pt. Type: P Room/Bed: / Admit/Disch: 08/01/22 [...] Performed Surgeon - Primary Scrub - Primary First Coat Operator - Primary Time In 08/01/22 11:25:00 08/01/22 11:25:00 08/01/22 11:25:00 Time Out 08/01/22 11:31:00 08/01/22 11:31:00 08/01/22 11:31:00 Procedure LUMBAR EPIDURAL STEROID LUMBAR EPIDURAL STEROID LUMBAR EPIDURAL STEROID INJECTION(.) INJECTION(.) INJECTION(.) Comments Luzma-student Last Modified By: Ria Martinez RN 08/01/22 Ria Martinez RN 08/01/22 Ria Martinez RN 08/01/22 15:34:03 15:34:03 15:34:03 Entry 4 Case Attendee Shashi Ambrocio Role Performed Cafeteria Cook Time In 08/01/22 11:25:00 Time Out 08/01/22 [...] and tissue Entry 1 Skin Integrity Intact, [place], Warm, and Skin Abnormality No Dry Outcomes [...] from signs (more content not included)... Normal [facility] Main OR Preoperative Recordo n 08-01-2022 Main OR Preoperative Record Holding Area Document Type FTPM Summary Primary Physician: Eddi Arana MD Finalized Date/Time: 08/01/22 10:43:25 Pt. Name: ELISA LEUNG D.O.B./Sex: 1960 Female Med Rec #: [id number] Physician: Eddi Arana MD Financial #: [id number] Pt. Type: P Room/Bed: / Admit/Disch: 08/01/22 [...] By: Coco Mendez RN 08/01/22 10:43 Normal [facility] Operative Reporton 2 Operative Report Patient: ELISA [...] Arterial Pressure, Monitered 106 mmHg . Normal [facility] Comment on above: Result Comment: Elec tronically Signed By: Sumit MURILLO, Eddi Edwards\.br\Date and Time Signed: 08/01/22 11:33 EST Insurance Correspondence Off iceon 07-24-2022 Insurance Correspondence Office [id number]#2 .00CD:127 Normal [facility] Patient Correspondenceon Patient Correspondence [id number]#1. 00CD:127 Normal [facility] Coding Summary.on 07-14-2022 Coding Summary. CD:[id number] G h0bWw+PGhlYWQ+DK7TVVE gF40heLXsiS7ON3fDUS4T XIJSTWSHAN9UEK7onNU5D PvnJ7PdhqAq KqtseMByBQ15QUj8CLG4s LjvVPuqfT1rbHCsP4u4Eu ZhTQ38pH02BYvxWJMlQoD 3LjZpbjsgbWFy I6tnBuEpjGZvAkq+PHRhY mxlIHdpZHRoPScxMDAlJy PilDcxUO9fJt2rTLJlGNE vbGxhcHNlOiBj r4tyMGDjKQntOC4dgEpfR 0McqGD7MZSzn1z8Uc63kB I+QLMcTWG3nWeyKDtvp67 6MgBsb9iaYNR6 sVVmYRipPJH2E74uk6N3X BPiPYAcVPX9wGJ7cJ6pqB ixyhfgS7HpbULgBoD0KOE 9yVJxoO6brPzi xieitN7sFri+X65CUN7ZX TFAXI1FDgl9S1MtStrmhX I+DG40BFHmOL94jCLggNA gw5bjhEf8PeLp UTMyFKG2fLegTYgap4IaJ QRdJ40wgNNqc4N5ROXncO pgwZLjQoJajOE4uD7zSGe otieco9ciapip Qegkq7vhxp36kO51I69kH YjzFUXcSEO8OOGbMTKeiO jlzx3thL9wDv0+YMfhj4s ft8rhsUu0ImKf LWGlffPxiIsnWPH1r1UmE o59N3KzdLzwr6ScYjv9cd 09nLQob6S5jLE8BBgzOXZ coU8gFIpuKeZ4 LWKdTsTtmH48hKHvIKnmK h5tkLzhwQutYT9hZNTphq vnTKThsL1yMMMghAOhrWa iHE7bEAEqaiyt u971ToIeTSO7CPNvfLPyZ 7GjtX9sLdGdJAUvQOKgC9 KqxENyTJxfG795FEqeZgP 7KYJklcXiV8Vw PYRlgTapQyJ4n3V3Gg7Wb 8JcemrzNQX8CHrwLVCrKg I2WzLcMdL8H6OcWga2VCB ehFlxWI0tN5Gh FCChmoeshxvacHR2OWPqG GPkpY08zJUoPMhsJf4ut6 S3f271EDYxQNOcnH85Jf0 udDogMTBwdCBU xU6tszvhg7cevgfkOrFuA RInPLp4PNl3UVTteRnqJm YpUVN2MnV4WZS2aWHkjD9 ssOmvccwwyX5k Oyc+Y00ghP6tCAY4BWI3p mxrQOZemsEvNZ67AD31B4 RyPjwvdGFibGU+PGRpdiB ovDjxFV2gHcKx w9yxh1ErHDvoP7LzCMTaD UpoDcf9RHCuBSN0jAA1mK 2wSPJaTXxqo5X9uWW5K5Q umrFwza5db1le MLIwOFcgS68rqSNrv9S2J QSepDZ1PYKkwHvqRzNlqJ 93Oyc+CYIhyDmdg8GuKtx lj0mqr7iydDk6 MkQpJAPmptAqqIbvYTK6m 9GtDi56Z91wPSxpCSIbPW NqIXKrAVYviGjhzt1ogZ7 wIi8+PGNvbCB3 yAT6rZ7sAATzEfI5DLlyQ 065DaJcdLMiMlbga1pfv9 aalJe6OjImTZGmxlQykXe rFHI7q5SaFv29 N85nLUapWAUnOYUtBGPzV NFwaSoapy7ifE8rBb6+PC 0vo2nrvz88vZ42iXR+PHR dGDT9aLvaIKhh PZDctY6gTPlgKyK3JFVjV nCvzS95xRWvACtgNv3icQ ytqLkuSQ0eFNAjpkced67 7HzAfe7kaFFMl cZJxCForLEY5J80mh0I7V LNsWDZbAZD6aUA0jR9xzY lnbjogbGVmdDsgdmVydGl qTUngBOtvT126 IHRvcDsnPlBhdGllbnQgT uScGTi2J8GjMpk3ZWOlqP gbCU6ebRWsZUeqRk8eoJt cxGooLW8iOBGx cqrpq437NtJnd2gzTRLge KCwMKvqBGS8D56ad7Z2WB ZmFSTyEQE7rZX8xX0bpUp nbjogbGVmdDsg mbZdtHjyTGiyELymM756X HRvcDsnPkJpcnRoIERhdG B7RW83PT33jURzt8Y3yDT 9N9HyRNRzicii xbgddRI9GMXwFDCfoJ82A x5ffYslJt9kFZNfRKR9ZD IytFCiJ0FzyY5oBsYlUDU lWEBhT2VqoPXs DOmkD041JIgrHlV8ECRdh sHaS1YiJXSfyHrrTwD6y7 W5Kk8LD1K0LB13ML14hVB mt2F4xNH3U0Pm QNYqltprastxdPF8MLCpB IOdzV60Iv7swBqsUe8sJR NiWPC1ZROpcZBhT5DbfW0 yOiAjMDAwMDAw Q0EulCEmUErlG218ESxlZ xF9SSWdmxYzZ5ImAVXhqV grUmM1f9T0Oi8YPCo4UT3 5NE50bQYoe3D2 xWS4Y7NfWMFubvzcospie IS3MAAnDRHzyC12Az3scK xwYl2tLKXvVOJ1FSXghWV xI6ZedD3qJsOy MZXbXCCoD2JaiSVhPDtoC 426CNlpAiC0GIMzjgPvZ6 NbFBSnfEgyFxH5h5I4Bl4 EUCMfXI10QAB7 yUD8WX80HL75E1WnUiwwd GFibGU+PHRhYmxlIHdpZH RoPScxMDAlJyBzdHlsZT0 yXc5oHVOaKNFn nBsumWMeHqDlm6qmAXElW VqkPT5fbZvsJ1AswBK3FT Hwu9e0Wf20H79hF0CawND +RBZzuJQ6kHP5 xN8zNcQoJvQ8JWbwZ001N kRuoOObPlvyo3jpy9tdfX r2VgI5QZXmgyWpaLhgYCM 2o2JrGs63V58r IHdpZHRoPSIxNSUiIHZhb Tlmeo2hyS5jUx8+PGNvbC K3mKF9rA1mQoDyKsK8GOv xT855LgEjdEIc Wyerc2qgk0wnuPs1QbYnK NRebcWvwNgrHGY4n7KsCt 08F0EhmLucc4TuVgs9ei5 0zPOuq7M3qXA6 B0PlRPAhpzlqdUBtcHcbS N7oLJIayfrkGYTxxQ9fEL IdA4r1ApTmCaD5CZhoF6Y qmzT9KDTbxEGa MLsmUMJ0I09jd4T6PVDjY KBvIGW7tTX9dY5kqIwzlf ogbGVmdDsgdmVydGljYWw kSMzpW952CDWk jHmzAGFbcE2kLJMtwRIgx CdcKO1rRVYkrfgpRqZKLB 4CEPQuICmZDRALHOX4G9Z zWzr0ZHIxcXun IL0uqTOoPYlpJa6opBbwc OccYH3hDEMcniszOVRmcM 6xMBGmlRBxzLplOP1bUYY jwzbei016PhYg LIG8BNKphGWmX9FvaG5mI jRaXUKdNWZnY7GalUDaGP kwO357ITenMdS0DOEgqbY eC0PwWQSykSfi ZhV9y7U9Hw6yOK8zZV4zQ RIwEO31CV75tSOfl1D7qN Y1J8QlVLPpqaeaqehxcNY 1VUCnWMZwpA13 uZFxDIceBv2hf3N6r623W HMkWZKeoR88Li3sxElsOK UjtGCAcQ7jurjwo9udnie gIzAwMDAwMDt0 XIi5WHJimCheIgNmFVH7K nN3GOU7mOJxeC6ghDfwvu cimF3bQjo+NjAgWWVhcnM 0T0BbXdl9CVSj fXzyZX0bdRCuWXtxMs2bd SglrNjkVC2iUQNwnxxhAC FalS3mHOVngAJouQmuHD3 lGJQttmako392 WxIjWLV1SDBetWTdY6Juf M8zWaMpJLZbZHCcM5QhiD GzRTrnR730SPmoCtM2QXT mlpMaH6UsVXZx cJriGcM3r9P5Nd3DVC8ru OJ7O3KdQlz3GCTcfMmjGX 4cvRRkINbrBh0mhEvboBs sBC8dOIBgzzcb SATxdT9vXUBjfKOqeHjxR W6uWREdjkfjl796RyTtGB X9MKWzaIBrK4IngM4dEvN cAMRlWYCbF6Vb dXGcSXneQ043TXmySjV7Q OLjtmFgC2ElVUPklJokXh M4x3L0Fe2RTKygNP8snbB gQG1whnN2Y3Ra PjwvdHI+QT15GPFkZR06g NTenVAib1zxwIu2RsAiWF SaZDG9qMapRXwvi3YjCMP nN20xhJSxx7L3 IQQzxMtvzQGoLdNmvXH3f S5uXKokadluw5vrrwhbTg skt3hdsm03kH58B66yVKx pZHRoPSIzMCUi JFSpfAblog0yaI6jNp8+P RLmoKT9yZN7jV2xFzDaDn Q2VWioF217JlUtjAZpUwh nm4ukw1uayEr1 GmQsDRZuruPhkCikDND4h 0EnTo81F58kPXlpBSYxRJ DyWFQjQXQqkHboxc8vgO4 wIi8+KX2fd9ix cg85fC73vFC+PPYmAPP8g HjpSQykCCNccN5aXRwhZr Z4DKUcQnPtvX84qEJiVWj qCk1kfRmrlQfa VD2eRYDhjjmlb639OvChz 2hkFCFmyKNcYQzeEPP0P0 1da4O1AIWyASCrIQF6lOZ 2fU0zeYtvpepw bGVmdDsgdmVydGljYWwtY KmrE916SBWfpAmaPiZirE HtS1shuyFBCS4sZcskxKF +KCWtBQL0oRve AFjmMXHosD7eVRHiB4y3T bLnTnI2PLrlE8QvyzS8QU TqtWKeNSHjhXRIqN7jmmg nu0mohrhkBcWb PYLyZEw7DWp1WZFatOfcG iBbYRQ2DtY6OOZ9bTUkdI 9tiVxswptcyW5vVxi+Rkl OOjwvdGQ+PHRk JIZ8sLfsRXquULPxtC9lK LUtR0t8GhQjYyH3RCppZ5 YykeU1ZLPeqJJyOCIhiIC HtZ9aqqywy6dk pfyrVoUnEXHhQIe4HUq0Q VYveVroPxTeURQ8VlP8CA P3eLStoP2gbYeprzizwM6 wOyc+TVJOOjwv dGQ+BUNwRZY6wPnzMZkjF VOcaP2lOAYxT6a0FlJqSx X1JPxsI6YjpdT0IHVqcEJ mLPValERZmV3g gwsdw2jdxmyvPmBfVWLcK Ut1XYh1EUIroAmnRxOpNR I1ChW7SMC8aMHwoA4vuPz zplchzX7nCim+ TPO4VQE3HQ33TJ81V9QjT jwvdGFibGU+PHRhYmxlIH dpZHRoPScxMDAlJyBzdHl oVQ5bLa0yMTOh LWNv (more content not included)... Normal [facility] Consent for Treatmenton Consent for Treatment 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 BMI 31.0-31.9,adult / SNOMED CT 628489596 / Confirmed Change in bowel habits / SNOMED CT 934526123 / Confirmed Chronic cluster headache / SNOMED CT 134674100 / Confirmed Chronic gastritis / SNOMED CT 48048096 / Confirmed Chronic leg pain / SNOMED CT 192641685 / Confirmed Colon polyp / SNOMED CT 694676379 / Confirmed Diabetes / SNOMED CT 158934560 / Confirmed FHx: melanoma / SNOMED CT 6304374795 / Confirmed H/O: osteoarthritis / SNOMED CT 772076635 / Confirmed Herpes dermatitis / SNOMED CT 01081637 / Confirmed History of Helicobacter pylori infection / SNOMED CT 1387994529 / Confirmed Hyperlipemia / SNOMED CT 95324892 / Confirmed Hypertension / SNOMED CT 9750681125 / Confirmed Insomnia / SNOMED CT 416989700 / Confirmed Irregular heartbeat / SNOMED CT 049178951 / Confirmed Laxative abuse / SNOMED CT 545251332 / Confirmed Lumbar disc disease / SNOMED CT 3180067034 / Confirmed Lumbar radiculopathy / SNOMED CT 057804278 / Confirmed Migraines / SNOMED CT 38051841 / Confirmed Osteoporosis / SNOMED CT 568800344 / Confirmed Palpitations / SNOMED CT 627496847 / Confirmed Rectal bleeding / SNOMED CT 068832907 / Confirmed Vitamin D deficiency / SNOMED CT 09489513 / Confirmed Objective Vital Signs 07/11/2022 13:57 [...] negative bilaterally. (more content not included)... Normal [facility] Comment on above: Result Comment: Elec tronically Signed By: Sumit MURILLO, Eddi Edwards\.br\Date and Time Signed: 07/11/22 14:43 EST HIPAA Forms Officeon 022 HIPAA Forms Office [id number]# 1.00CD:127 [facility] Legal Correspondence Officeo n 07-11-2022 Legal Correspondence Office [id number]# 1.00CD:127 [facility] Legal Correspondence Office [id number]# 1.00CD:127 Normal [facility] Office/Clinic Note-Physician on 07-11-2022 Office/Clinic Note-Physician [id number]# 1.00CD:127 Normal [facility] Patient Correspondenceon Patient Correspondence [id number]# 1.00CD:127 Normal [facility] Patient Correspondence [id number]# 1.00CD:127 Normal [facility] Patient Correspondence [id number]# 1.00CD:127 Normal [facility] Patient Correspondence [id number]# 1.00CD:127 Normal [facility] Patient Correspondence [id number]# 1.00CD:127 [facility] Patient History Officeon Patient History Office [id number]# 1.00CD:127 [facility] Patient History Office [id number]# 1.00CD:127 [facility] PAP ACOG PANEL 2: 30 to 65on 07-06-2022 . . [facility] Comment on above: Result Comment: Perf ormed at: WB Performed By: #### C BC #### [facility] [address] [place] [address] Dr. Jeffry Daniels Age Gdln ACOG Testing 30-65 [facility] Comment on above: Performed By: #### C BC #### [facility] [address] [place] [address] Dr. Jeffry Daniels DIAGNOSIS: Comment [facility] Comment on above: Result Comment: NEGA TIVE FOR INTRAEPITHELIAL LESION OR MALIGNANCY. Performed at: WB Performed By: #### C BC #### [facility] [address] [address] [address] Jeffry Daniels HPV Aptima Negative Normal Negative [facility] Comment on above: Result Comment: This nucleic acid amplification test detects fourteen high-risk HPV types (16,18,31,33,35,39,45,51,52,56,58,59,66,68) without differentiation. Performed at: =G Performed By: #### C BC #### [facility] [address] [address] [address] Jeffry Daniels HPV Genotype Reflex Comment Normal [facility] Comment on above: Result Comment: Crit eria not met, HPV Genotype not performed. Performed at: WB Performed By: #### C BC #### [facility] [address] [address] [address] Jeffry Daniels Methodology: Comment Normal [facility] Comment on above: Result Comment: This liquid based ThinPrep(R) pap test was screened with the use of an image guided system. Performed at: WB Performed By: #### C BC #### [facility] [address] [address] [address] Jeffry Daniels Note: Comment Normal [facility] Comment on above: Result Comment: The [...] WB Performed By: #### C BC #### [facility] [address] [address] [address] Jeffry Daniels Performed by: Comment Normal [facility] Comment on above: Result Comment: Andra Alvarez, Buffet Manager (ASCP) Performed at: WB Performed By: #### C BC #### [facility] [address] [address] [address] Jeffry Daniels Specimen adequacy: Comment Normal [facility] Comment on above: Result Comment: Sati sfactory for evaluation. No endocervical cells are present. This is consistent with a history of hysterectomy. Performed at: WB Performed By: #### C BC #### [facility] [address] [address] [address] Jeffry Daniels MG MAMM SCREEN 3D DECLAN CADon 06-27-2022 MG MAMM SCREEN 3D DECLAN CAD Patient: ELISA LEUNG Exam Date: 06/27/2022 : 1960 Gender:F Ordering : DR EMI FRIEDMAN . Admission #: [id number] Family : DR YASMINE DAMON . Order #: [id number] CLICK HERE TO VIEW EXAM RADIOLOGY REPORT [...] Treatments None Family Cancers None LOCATION: [facility] BREAST COMPOSITION: Almost entirely fatty. FINDINGS: [...] Tompkins M.D. on 06/28/2022 at 12:18 Normal [facility] Coding Summary.on 06-26-2022 Coding Summary. CD:[id number]:[id number] G h0bWw+PGhlYWQ+DI9ZRUG yV40knDDukG9IE0mDHT4C LJRQDSQONX6XPV0drLW2I TwsH7BbyeOc JsqoiWUwCO98INz1SRZ7u SbyCPeywV8yuLUvH3e5Ea MpDQ99nB13SVtoJRZjIeT 3LjZpbjsgbWFy E8iyMdShwNRrFap+PHRhY mxlIHdpZHRoPScxMDAlJy RjkNblIJ2tTk8jJKZhUVR vbGxhcHNlOiBj l6pwJYYjBMicBH8foDotC 9AykFG3VPPjf8a2Nv35xB I+WPGdTCN5dAleGDqkh11 9SnDmy7rtLQZ1 dOZgHXxsJVE9Y91ag6O4X XIoPKMxUUV6iXW3pJ0amN mnnpngV4JhxEXhBdH6XGL 9gNTinI2vnSjs fqnbyI6cHzz+X20PGV7OT BOWWU4HIkr7E4YmPzdaoY I+GU56TLRgUB64nDMqaTC te1jwyIb9JfWk WILrWUJ0uGjyVEcwn0UgV FDuP28hrTYbq9S0GPMxgW qonCHuTxQdiFI6tU8aMAd rzmdym5whvwjr Xqjmv7hejq09eO19A45kI YplRBGzNNX9LODuQDJfhV ylqp0ayY7cOk3+SXedc7q tf9iiwHb1VhGz XLMmivVwfWwaQLN1s0FvF w34K5SotOlor7ZbGmf4lu 17lYOcx2V3aPX0WHmkBKF pdQ3uNSxbBxV1 UFMuHjQsxZ18zEAyNLgeQ o6pyLgnuZmpKR2xKWZahv qeZEYbcO0cACFrrZQsiMo vJD7nZFQbvyxt l469TbFrQAY7MXOjyZItM 3BpsD2nIyMtCMKhSXKzQ9 ObmIDaLJtqL431DZvrOuS 7WEUfhaLbZ6Qe OFPlyOflBrO3v0L7Ps8Pd 0BgjmopKGF3WUcqAOEdJt KtBzKnEvS0X8UeOvj9LRF qhHccZY3yA7Gy MBXqmjinkdqxvCM5IUGdZ KRfiU45xOYyAKtzZk0mm5 M1l147OUHvZUNppG93Eg8 udDogMTBwdCBU gS5hnfxky5xbjktaNiUxO RXbFSm3MRr0WMFvuVxfUn UrDHY2DmH4QDV2qINjnN6 udHkvhvubjG5i Oyc+O59mhG5wPPM6OHT0w djvHUAhhfVzGN40FC23L2 RyPjwvdGFibGU+PGRpdiB zcGkpMX2hFeQl v3zsr1EkONclO6YsWLQwE DsfCbl1HXNxMLB7nJZ1pN 2sMGQtZWebe9Y3sMC9Y1W bayBmyu3ze0vh VHYpCYzpD94twIRmf0Z7F CVcfRI9NQSghWsxQpBswN 93Oyc+KTSswTvnw6EeZhi it6csj0xzpYh0 ReBbXMSjloReoKgtUUM7s 7CiKj60H81lDCcdLFRdEN TuHSAjRWJrmJycdu1eeX2 wIi8+PGNvbCB3 sLO8iE9uDDZaBgO6INvyN 620HeIuuFXjLvska7bzm7 hhlCp7KzNtNIYxbkHncIq nWGL6r7BoGo37 R18zHJwaBZLxUIDeBDCuS FHzcXcxbi9anJ4nQm5+PC 1cu3vhee02fZ43eKN+PHR sQSW5tZreNXjr JUQjoA8zGRscLqJ8RNRfH mZmaU22jMDcFKlfGy1msK kfyXecAO7sTJUkyklnw12 8AzSho1oyKOOg sXBpYHjnAJQ5C94mn9O3R DVfNRAaSKD0vKH9qU6nwI lnbjogbGVmdDsgdmVydGl zRLhtTYmrG106 IHRvcDsnPlBhdGllbnQgT lKxMZj4S0BuOno4SEAbmS lnPH2ljXYpVUvqSp4dsKt woVupBW4aCNKm qrykp670HoGxd0kyMMWwu ZCyIZcjPGD4Z28ck5R3XE EjIZWmAVG0wJU0bK9cjBc nbjogbGVmdDsg hyPepTxgSUzsRJodL037F HRvcDsnPkJpcnRoIERhdG O7KS29TF71fXOry2I3yBQ 7Z3DeJYYrynzv koogwOG1DUGcDHXoxX67P y7pyRyeKy7qPZOwRER8KO UxsROqG1VfyJ6bFaGgBLH zVXPsW7GajQJy TSkpA877RNoiDdX8UUXqk aMaD0NxAMXdhGrvYhZ9t0 E8Jm3LZ2W6AU05DQ87hUX oa7M7oGZ1P6La SNWstjynjsbyoBK6HFTrW UAabG94Mi2apTisBa3oWI WuWJN6UGKqbAIfR3XtsO5 yOiAjMDAwMDAw P4YdjUQsHAgpL568UBakC yG7QQHorrJhX5JrUQJrxI vvIdL2f2X0Gi6LJLe2LR5 1OO65yMEga6N1 pTB3M1QxLLYooljeyqkxw WF4DEOmRKUdeX42Qq0guZ rgOa3uHUVoAHJ5EVXkbMG mC4WtzL1uIhBt HFDzDZLoZ8YiyYYhDWntP 429WAihTyL7MHDwwiIjA8 QtJUCsuQsrRnR7h5R5Fl4 MWIRsXN65TKQ0 tMC7QS25YZ74O2PwUpwez GFibGU+PHRhYmxlIHdpZH RoPScxMDAlJyBzdHlsZT0 hTr2rWROqPALw yInuuRRkUpEzf7crQFBaZ OiwWN6yjAwkY4MqwQP1SG Reg7n7Fu47A26jL5EsoHY +PZOqrVZ0rEP6 aJ2dRkXvGeP5AGwuL113D hBbaWAuEulfw6mmz2erfZ u5CvT7HCUonnFqpBduZEW 6l2NcXi10D30v IHdpZHRoPSIxNSUiIHZhb Bslkh4tbT7fBt0+PGNvbC S1cTP2cD3kMqJePaF7HKv aS772KyOihNDh Zqola6pfb8fcxFy5KhDhT ZHzylErvEtiGNY2d7QqFu 48P1DshVnma9MlBzr1gw0 6yJLtf4K5zME1 I0OvLTJoxzmrgPFhdXlyS T3rHSRcrqvoRBDxuG2jMD BmM6i5TzWgWyN2CIewD6E lhyA2GALnuFUz EWphBIZ1L18im5M3CCGxK FOcAKD2nDO4xC2xvDrcja ogbGVmdDsgdmVydGljYWw hFPueK429KDUc bRvyFDTycO0jDQGzmJUbf CsbPD0fEVYppdewCsBONG 2ZMDKbMBeTJBTMCEG7M3Q iDgm1EWPtgHjj ZV9hbSIkWUgeOt7caKlzy FagBC7lJGHowaccTRRzvH 1oOCTxtDYypYqsNL3nMNN qohezq186RhZw AWZ6WCYhdLMiE2IsjT2oF nCtJAFpYRKuX2GstFWlHM lyQ612TEkjThQ5VUFvsxO cY1KbLYDmbAaf LbE6z2M4Ug5fOM6rBD6nT YDlRZ80KL53eIPmy2L4xO P3P4DyQTGybwsfoiizhTR 7GCGyFOMogV19 pCVbZEubSm5ec8Z9y221O HNaJFRlgK76Ay0jcKgqGN FgaDQAtC5jviccq4pizxg gIzAwMDAwMDt0 NRw5RPUrtDqbXcFtLTW5W jY9WBM4xVSygG3tkCtenv dciD2lSsd+NjAgWWVhcnM 6C2BrTds3LEAr uAaaBO3kePZtDThlWx5ep DvyjFtlGB1eJMGndkynXC OjbX0iNHYazMNiwIhmAO1 oXHGixcljw227 UkFtHHK6PEOawFPoG2Vjq X3zRdCtKSCqMPNrD2LagF YbOUltS040WAnjFsW7UQJ odgCoR9YhLIIr cKciQkJ9i9B4Dd9XCY4wm IF6A8QdDyu8CIIymUkfWC 8bfIKpNBtiZr4ghHqwuYa lHU1pPKLjpuym AFTfzP1hVGPaxZCsqFtjA B1gXSCeuitqr513KkVoQT X7GRKacPWiB5KueP8vIwO lMAOvOPEtF1Dl cCHnXVbtJ219SIznCgK1C YZnsrEqC1YqYSUioEunUj C9r7L0Gy5QkSBnDEPtCO1 6NA72TQ86R8Pj PjwvdGFibGU+PHRhYmxlI HdpZHRoPScxMDAlJyBzdH xcYF4hRh6iLWCoDGVpvDi rbBUpAdCzc3em HLOhSHmsXS8kfRmyJ2Uia HG0BZTwi8u8Xt19U37bY0 JvdXA+RVGuyXX0hCF1pI9 eTeDnTuY2ECci B435XgDvqWQxBbcqs1cey 1umrGf8FbPkDFSxkqLeuL gsOSF6a9HcKg48N52tMZq pZHRoPSIyMCUi PPRcvUcaph7gbU1hYt2+P PSjvIU8qLX4zN3uVuLtNq C9IBzdC142WoKcqJKwMzt bY60vV7WgxDO+ HPWsUjg1JSRrtJkgWK5mj BNhTVziGi0wYVH4HxFaUb IgOTioR4OuBDZlezrvspu bdPY4GQOrFCQs kE41Op8hmZraNy5nNBGlN QD1ZOKexCGzM4AqaA1pEw NeKQPqVFEkC7MydVUpLWw nZ375DSghBoJ6 NNLqifSbO3IdHUHwgRygA zK3n1G6Qz9WuXmguUIzSV 3kDcHbVKu6B5BiNpd3KSD zoOkhSE6xxPGs KXqaMp8ohPfjeMgcRT2cM LQqpzbsr552KfZyk1mrHH RxkIGyUCriGFD0Q16ba7V 6FAGuOGBaFYY9 hQG3tW4hkWkoxesxdBJtm DsgdmVydGljYWwtYWxpZ2 45AVQvyHgmTvVYQxj6Q2A eNjc4MSOetJlx WL8jtFScYYsbJx4dlGxmd IcsRN2lTHXyloxlm731Ee Nqn6bjPRUljYLwOWwcWNA 8T21xn2S9OBPo SFKrZUY4jRT0qG7iaQbta jogbGVmdDsgdmVydGljYW xfHLwnT240YJNkgLvxAp3 HBwd0O2BlJqs5 AEWtgZpcHI3vtYMhXChzQ y6tnAffmGukBE0vTUXgpo dhg748PoWtm8zpTSBtoRM zUJmyZUZ9N47c g5C6YKBxEUIyZTI8pMG9y P6isDgdaudylICgrKnyoj BcbSyzWMxpQCcuB632FEO vcDsnPlBheWVy OjwvdGQ+QJ20wb12J2LjY aalAwd8ELSbUXT4wHJ0xH 8uAXQcBZszb3W1rJG1L5P zkvTkgv6wj0lh YXBz (more content not included)... Normal [facility] Coding Summary.on 06-25-2022 Coding Summary. CD:[id number]:[id number] G h0bWw+PGhlYWQ+IX8XDUT nZ86dtRZarT3FB9zELR3D LAFTYTOXCO5XDN8pwQU6R ZovT3HntsWc SiqhrRJjLT54KVy3FOA2g JapOXtcfC4ugTNeW9i9Mq BlDB44wY22NNcnNOVfNzG 3LjZpbjsgbWFy S6kaNdJomIEeFdj+PHRhY mxlIHdpZHRoPScxMDAlJy LkcWxfCV2hWm9cARHnHPP vbGxhcHNlOiBj r6xzEIXfKPdvCA4tfEwbN 6IgbMP0TFUyn7v5Ca91cI I+AAQjMHF3cXcxXFhzq66 8QmWhr5phRXR9 tXHfZNldTOT5D87nl6D3P TGhKQMtEYA8hOR1pZ0xbA flkgjwX0CztAFfPuB7MAM 4cLZnlT9pkPad nachzS4gKbg+R21CYN7SJ VWTHU2XSpq8M0YqAualrD I+QW51CQSyNV22jUHtoHY mq7zvnEu4OnBn ZENdOSM7lAbeOQbae3JqD YNfB61nnRCma0S4YCWqhO amrGDuPoVnuKE0vL4eERq sitgsw9ommljk Yexoj8zwhy55bG27V34yO IycAFEwPUO3GJEkTUVxqM exhw6xsM3yMj1+JJags8u lj3kuzVx9CvRm YDNokfVxfVajUMX1a4CiY n15C9KzkZeot1RnQxa9zz 34eZWgw4Y5pDC9LXqvSEO yfC9uCYfjPiV7 QLPgVaZyxN72wBAxZIcfZ w3doVfysXeeNU2iHVWkau mxGQXpmV4mSNSspCAqdEv rKW7lPORxhnpt k205VsEwRQN3GHAoaGIcB 3UkdV3zWoToQUSaXQCqB3 RiwGEnJRncB553YOgnMrJ 1VHNbeiRhU8Ep FQXckZrpJfK7b3L1Ry9Ir 0EbokajWHN6VXboSTVhAz TvZtUiPpJ2T4LmQda7TLD hxOhrTK5kW2Wv MWWahftdvlawtAX5TJHlU RGnxF41eBYsJBebQb9nw0 C1q538CJPzKTGbuT65Qp8 udDogMTBwdCBU nP1hculll3hvtnwhHlKcB NRzJSa2NPv3ZOGsxVfaAc UjVEA7NqZ8WQC7gBTgwG7 riQwupsvvcC6z Oyc+G32vmO0uHLK1YJE1h ayhQYNfhnUcUM32HV73Z2 RyPjwvdGFibGU+PGRpdiB dxWhzMW8jJtLf n8cjb4QjVSfuM4UySDQnH GneQiy8AVZvEGE0aDW6rN 5cAKKuNHmoh7B0pZB0O5M kkgGvkl0an2cl ZRKjGLnyV53jfGYtb1P3C OVyxYV7ERBgvRrvWiHjpR 93Oyc+XGTliJtrk4NiOxn rz1lio4znwZm1 GvZhNPZuxeXafKjtUPK8v 9DpSk33L24cDWqtLARkDI MwKLRnNYYouJdmxo9yaL9 wIi8+PGNvbCB3 oBT2tM2eMVIoQzG7GUxwS 728UqXocRIdDrkqe9mll3 yiiYr2SfYzYJQxylQkoAt pMNS1s2BiBf38 D70cLIwjMJTmPYBqUBFnL PRkfZhwqp5yeW2lEc2+PC 7le4fqct97yZ00nSH+PHR rJAS3xRzdDUaz VEQtjA6aEUlwBjP2ILYkS bOxyJ55zRLsSWdpKm8vmC crzDtsUM0mEISznofgd44 3InOhy8wjGTMx kHEhLVxuNBQ9V37mh0T3J AQwLWRgJME0oWT0pR1amY lnbjogbGVmdDsgdmVydGl sXVibQXheU964 IHRvcDsnPlBhdGllbnQgT iJuIZg5Z0VgCrl3TKZczH yjFW4dgOWcGXgrZe0yjWw smHflLK2gUJWf huybi995OxPvu2daONOho LGlVLnvDBH6Y69wl7E0NT FyADTxHIY5lYE4aQ3lmDd nbjogbGVmdDsg qxIeaJhvZNfdJTvgQ659R HRvcDsnPkJpcnRoIERhdG P1XZ91XV41gQSlm3Z3oTK 1K0KpYEZtrqoj nebavXA4LZDsCUSlfF04E y7imHtyAe3xSDUsNQD7KX VrkTFjR1SzfW4zFbWrWFI hACJlJ9LgpXVo AAnpL043YEgmEiC8GAFcm tQdV7BcCNJdoPkfDkD5k9 B5Jf5QV8T7WZ69GK46bZY jm9Y9rQH3V7Ot ZOCqjmeruvmmxNC2VUMdM YLihM07Eb0lsXcdWv8yHS EdMRM5OEPcsCWuS4KryL2 yOiAjMDAwMDAw D2VhaELqELldB913NQsvK nF9JXXkarTnH3VcUXSgaN bmHlG3y3T6Yp7ISHe8CO3 8NZ11aNCiq9E7 pIQ4E9WfZDCdhntcjtsrf NN9RHTmSRVzpR96Po2ipX ewCv3bLRZdVSK0AKIgjJT bN4YkfM7yXmYh FENbABUaL0EknPCrVZldU 039RZaiUfI9RTOyfhDfA1 CuJQTteFrsPkS7m0N9Cx9 MGXCjUH00YIH9 gTD0EL99PU41U0PoNefig GFibGU+PHRhYmxlIHdpZH RoPScxMDAlJyBzdHlsZT0 oXm6qHCRbMCSk mPckvSViUrJqb1cvJHWvJ GpmLE7suUuyG4MtnLW6JQ Fsk4n2Zd11G26sD7WebKS +IMSitYB5lVZ8 aU4lDyBuEkF4RTxxS531F fNajSVdQpiqi4itt1ulhY m7UvI1LEPctgXrkLsmZAE 1e7BoXa26S52f IHdpZHRoPSIxNSUiIHZhb Rmxfn6kvU2eHv1+PGNvbC G4gQY7yJ6hXuKfCdN5TEe tG333MrZjxYPg Ynqiw9zvb6xkdWg1XwLpF VWcnrDkvBbhYDH7q0HsCo 71E1UdgWcei0KgTxy4ip3 5gKGum1R9uCN3 O9BsPLVwmvhuaQTomQnfQ O1rMWLknybfXIXkfS3uWR HjA3m4QaIjBrD4WNeoA2E jovC1RRUrzUFc ODfxRPT9V20hp4L5CAUjN CAkLTX2bMM6fV9qcXjbvr ogbGVmdDsgdmVydGljYWw lHHxiS506UPPx oVvyWOIhmC5yBPNcbGLac PugGB1pMELedixeQmDLHR 4IMMWvSMyTUVPGLGU0T1Y iJsa5ORQncItn WC1cwBLwBKklJk4bfUtey XvqJH0uFXAmnexxRLYlnY 8dWTXbkHBrgJkrUZ6wPIT zdlnxj170XgCg IKP4STNpkLXyH9KhqE9fK iQxQAWyLZQcV5DuhEZwUA etR887UPlvPfZ6SOElmzI wO1GpOEUyhJcj RiP0s7F3Ik4pZC0lBB7oE JBoXC66YT18wOJzk1M9kB H4A8BwWWMgspfzrtchoLX 3JLTgAZKmxB60 mFHkJMckGu8we4U3s017B EEdUCOvnC25Wb6baTkaVT AuxUXSrQ7inngzz7eiwxs gIzAwMDAwMDt0 LWh9NCNqgGyaKsSbTCS4F mT3OZA1vQEzjI7kgCvzcm gdhP6pNat+NjAgWWVhcnM 4D0DdNjx3NOKo yIhzEC0zmLTqXLgeCy2hx NtdvGpwGB0hDSHwgqieDP PxoF2wGVXuaTLhcGezWV2 nEVXrbeliv462 GkAzJQX7NSSmmURvI6Mcj D9lHuNoXAEqTXUpD6DihU BwCJvfW415EBxnZdQ8VTO gcpKtG7LxTLBf yVmjRhQ6b2Z9Yb3DGL9co YH4M4TtZwp7OECgkBcpYG 6woVPqUOuwZc7opPoagOm cAM3bHCCvorir DPFsxJ8bFOThlMZceUwhU E1rKCAmkmnna300GvCmGZ K2ZNSslAVhU9EfwT5qIfL vIKTzYLKvZ1Cn xHXyUZaqI900UFhvXuB4O WYujyCrX0UeNMRewHegHn F6d6L8En3TaRIyHHOtYT4 3OI56SH78I9Kh PjwvdGFibGU+PHRhYmxlI HdpZHRoPScxMDAlJyBzdH ibUX2xOp8lBEZiAEWdkDv rxQSuOpSgl0ne KNNtCZffSP1kwYleV3Wjn ZO0TUEeq6a5Nd12G61lQ7 JvdXA+MNSmaZW5qDR4bJ3 dEdZrEmZ3IKpy C736VbUhnWRjKqzks3jwo 1conPk3NlCaHAGzyxUymL qoAMQ1b3HvMl35C72gNMo pZHRoPSIyMCUi HCAbxVappw2tnA9pGh9+P UGplLA4vUW5hW3dQhGyKi W6VSyrM664ZfZsbYTkGdd gV14zL7NfmRL+ OSWrBqt0HQGruKtjNV4fx ARpXCshBq6dLHC1EeCkYt RaVOtbD7BqVICzwdczbud tkGN3PYOxEZXw sI76Ch7gcYwjSx2uSBMqA ZL4YUHiaQHlV8TvpJ3yCi EtAJGmKVErE2TtuBFmLHe gF992DRbfQlG7 BLEcpwHnZ4EaFKQfeSayB eR8j3P1Bc4NaRicgBSlUX 5cJqZgXMw7S4WgIhe6QMC ylCfeMS1vlRDg SUceNp9icLywjXdaBJ1jI ELphfecs547EiGpz4tnDJ ChaTBmJMpjKJC5A34bx1W 3UVLfOEVqFET0 iDM9mJ3dlDzgpzlzfALgo DsgdmVydGljYWwtYWxpZ2 37GWVucCpbBsBGLli5Y8U oPbo6FPUynZad DP2axDZiCTamDk0odNjri WjzLF6iSKEuqcjww875Wh Yya3dkRDKdnNSjSExtUNN 8R07vu7L4WVJh YRCyLLH4iXF7rG0ptFmwa jogbGVmdDsgdmVydGljYW uwEGmqZ612HCPttXvyQw3 QVvw6M5UqJrs9 RLJfqBjeFO3juPXsGZymC t8mfDtxaUklMX0yRHYkis mrq043XrQyy8bdSSEeoYP wVSelURD8L61n l6Z0YQMeEBMjHRP5fPZ2x H1mvFfkggjcqJNlpWxfau DdoXzbFDjkZLaiW854WXD vcDsnPlBheWVy OjwvdGQ+BE62so66Q8VrK fivYlk6VGJqQIE9eXZ0tU 9dRWQpGZfbd2K0iLQ1W8C nuzLgdt4zi1eg YXBz (more content not included)... Normal [facility] Consent for Treatmenton 06-06 Consent for Treatment [id number]#1 .00CD:127 Normal [facility] Consent for Treatment [id number]# 1.00CD:127 Normal [facility] Consultation Noteon 06-20-20 Consultation Note Patient: ELISA [...] has, # 60 tab(s), Refills(s) 0, Pharmacy: [facility]/pharmacy #[id number], 166.8, cm, 10/11/21 14:46:00 EST, Height/Length [...] Oral, Daily, Prophylaxis fluticasone 0.05 mg/inh Nasal [place]: 1 spray(s), Nasal, Daily, Refill(s) 0, Allergy [...] list: All Problems Palpitations / SNOMED CT 357136763 / Confirmed 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 Hypertension / SNOMED CT 5518547253 / Confirmed Anxiety / SNOMED CT 73353782 / Confirmed Lumbar disc disease / SNOMED CT 7431220648 / Confirmed Lumbar radiculopathy / SNOMED CT 326294296 / Confirmed Chronic gastritis / SNOMED CT 87786420 / Confirmed Migraines / SNOMED CT 25471224 / Confirmed Insomnia / SNOMED CT 627426862 / Confirmed Colon polyp / SNOMED CT 513725866 / Confirmed Chronic leg pain / SNOMED CT 577898094 / Confirmed Laxative abuse / SNOMED CT 611064421 / Confirmed Chronic cluster headache / SNOMED CT 496343425 / Confirmed Vitamin D deficiency / SNOMED CT 24938295 / Confirmed Hyperlipemia / SNOMED CT 07891079 / Confirmed Osteoporosis / SNOMED CT 234637787 / Confirmed 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 Resolved due to patient discharge. Resolved: Impaired skin integrity / SNOMED CT 00761461 Problem added on documentation of skin impairments. Resolved due to patient discharge. Resolved: FH: migraine headache / SNOMED CT 531539987 Resolved: FH: osteoporosis / SNOMED CT 2285205838 Objective Vital Signs 06/20/2022 12:30 EST Peripheral Pulse Rate 57 bpm LOW Respiratory Rate 12 br/min LOW Systolic Blood Pressure 133 mmHg Diastolic Blood Pressure 75 mmHg Mean Art (more content not included)... Normal [facility] Comment on above: Result Comment: Elec tronically Signed By: Adri GILL, Sophy\.br\Date and Time Signed: 06/20/22 12:52 EST\.br\Electronically Co-Signed By: Derick Meza MD\.br\Date and Time Co-Signed: 06/27/22 07:46 EST Office/Clinic Note-Physician on 06-20-2022 Office/Clinic Note-Physician [id number]#1 .00CD:127 [facility] Physician Orderon 06-20-2022 Physician Order [id number]#1 .00CD:127 [facility] Physician Order [id number]#1 .00CD:127 [facility] Physician Order [id number]#1. 00CD:127 [facility] XR Spine Cervical 4 or 5 [...] Coburn M.D. Transcribed by: CAITY Technologist: COLT [facility] Coding Summary.on 05-09-2022 Coding Summary. CD:[id number] G h0bWw+PGhlYWQ+JK5UAYC kL15cmRAwwQ4SA8xIKQ6V PEZTUJITPZ4OXX0wcMG4D RliP0FcsnDz PkhzqJAuHO21SYu0PIB7z JukUAeglF2umFAuH7j0Wy NaGO02oY48EHkpNTMfOqX 3LjZpbjsgbWFy W8miTuOneKHzFzr+PHRhY mxlIHdpZHRoPScxMDAlJy EbtWmsAP8nSy2fMYZuCGQ vbGxhcHNlOiBj v1odXVDdBVcdSY4laDjaZ 2GwhYB4KAPfu2t1Lz75pL I+HEIqJTS9oAhqVCqot79 0MkTpu3gePLF7 fBYlAZufNRX3P29qe0D1X LZmEEVkNJS7vDI5aT9dfX agmyirL6OdlRFyJoY0GNT 9kLIupX5ioDzr hosytH4xHtk+I19MEM4VE RZXUQ3ZLms7P3CiQbrxnW I+XO64IMAjVE57pXDnwCV ux3wnkZe0YjBw QKRqHQI2xSjkPGfve4ElE XDvK21euPGjb1B8VIBkmF vvxNYvNeJkuNJ1iT8gREs hpkfag5deerpp Zinrx0qmku36fB55Q08mU EseDTSgUKU2EUVnFWOneO mlbb5kpP9iFh5+MUjem8i lx1qdxWw1SoGd OSFnluBoeTtbVDX4h8UlE z35I0DfsMhzv8HrNol0rf 06uCKya8B2fVV7UZizZJO lnP0fZPvlNgH6 QZQzUiUktE51jMQhYQwnA s5jkLyfnXieUO6iGGZtca ocRHNhcB4xMOCroSAblCi sDK3lFCKezbwe n940LeJdTWD2FOUgcDOgX 7GhqE4qMmIwJBEtSZViG7 ZxuZMkSXdvV157ZMznQsL 0LRCipkNqY6Gs QWBboPetSyP0s3Q9Hu8Ia 8TsbtbnNDM6KMxcTRCyLj B6GvZyHrY1I9QsKci8YKP jfSkrAZ2rM4Jf BFYrdnfptvxiqFH9NIGyF CXrzQ35vYKnCVonZc9la0 B7j258GWBmIXXxmP22Iq1 udDogMTBwdCBU yJ7ksfrys1dslbvvIiKeB WGyYXh3NWy5SHWxqTpnGl UuPNY9WvZ7HLX6zNYmbS8 njXaeyrusoQ0z Oyc+I20gnT6pCYA2GTN3v txaFNKolzBzRV23LJ15H2 RyPjwvdGFibGU+PGRpdiB qqKzdRU1iZiCu r2vbd2MmVCwpU0QiMNPgL IshYmi6IDKaKHY2aRG1bE 4dVVJdFJkbt1R3hOG0G5B cnrRmdq4mx3lb DSOmKKkmP39dbISsj4F6U OYujIR8QRGmhCmkGgCsoR 93Oyc+NLFwoIjoj1MlSke su5zco4stgLz7 AjRaLCXawsOwxVskDEO7d 5VgIm56E91xSNokECBmNW VzHWOjMOYrpCsdrj5mqB0 wIi8+PGNvbCB3 pYM3sJ5yLTBqOjX5ZGmoR 094YjLycIUxYdwkf5qrl6 bjkDt6BxWwBNWgkkBwcSh mOBK1g2AoOc48 Z80yMXieFXIkVMNiCDMoY RUzdPcbik4zcA1mIm6+PC 8ll6kije82aS84hPO+PHR oNWW4gHskXEpy VBRheJ2bYOnaPjM5LEEnC sVqgD97wYJpKDlrNv3lnV xpvFmwFO7mVPRbtzwtq82 3UeQnh9gcTNKf wRBjASrwIZT4H55oq8D1B XQdSXWhLUO3xOE8fD1wjR lnbjogbGVmdDsgdmVydGl fRQaoSWqoS992 IHRvcDsnPlBhdGllbnQgT mEgYVw6F6PvEky6MOQdlQ paOQ6ahZHmRPlkQw1neUt tnRhtCB5xTVIv kluco799CeWen4ixIGIvi PZyIUdrQEE2U57kc3B3TX ZxDXFxYZI4dCK0zS7pxLc nbjogbGVmdDsg asSqeXthMPufOBliX760U HRvcDsnPkJpcnRoIERhdG K2KT69CS24iTBgw1Y0uOY 5J6DcCCIeouqg sadypFH0AECqUKYwaA78Z s1bvVrrOq0bWSJuBXW4JZ XprCPwA7CsoI1xVmHnVLM jFAZcB7OguKTq DMnqZ169NQluApK4OUOhy jSiI5IcDWFpsFgbGvU3g8 X6Uv2BP5T1OU31ZD05dJC qd9W3fRJ8I5Iq XYHgtfvhrambsUG6RSBiD HEkxX54Ul2uqJirDg8iQC ZpIHH1SFMshGFwY6QlbO6 yOiAjMDAwMDAw J9UcoZGrOWzmA503KXuqN sY6GTNegpMaS1RcSUJweK dqYqU1i9B9Du1HFFo2CT0 6MV18qWSzq5F2 nAN4M9PkUKBjduxwrnqab RC7DBVxAXClmV30Vr4skI kcNt8vUXJcXOT8KZXlbAU oE7EvzL5fStLv QLLnYJCoA8LltRTqLLugW 329RTebOyU4WSEvspFoD8 KcEPJbmJdlXoA8l3O9Vl3 OYFWmFK80ELT3 gME3QU96TS14E8HjVfscn GFibGU+PHRhYmxlIHdpZH RoPScxMDAlJyBzdHlsZT0 tMh6nJDAnDZIa hLjkjFKsYzIsj8acIEIhM TkrNW0bjTbiX0KxsTE6TH Zbs4u1Xj18F23rR6AvrUB +EXXhlYJ6pNP7 pR1eJhYiPuT8FVceZ949H vQheRDsSytuf4fsb6lmsJ x0LzO7MUTynrVlnHbbAOX 7y5UgLe40C77e IHdpZHRoPSIxNSUiIHZhb Objwr1yiF0yLf8+PGNvbC L4dQQ9xM8yIiBjZgD3WYo wL231YaZzhNBp Wquxz5fnj7itiOj5XqBwK BUwlsCttCqcJXW1a1ErUs 38Q9UaeDvfo7CjEtg5qs4 5xVOsa7M0gLX8 C4GuEUIxatmhwVGfpOifM Z4nPESvooheVCZdaA9uLK EpI8f0YrKqSwK2JVhtU1L rmjF4EPDaxNQs RJheFBY5E95bs5Y9OYUuQ XYaNXP9mOX7vR1fnXjqnt ogbGVmdDsgdmVydGljYWw qABwvD292MZIo gGlnQEBkgL8xUBQctLNqi PchAG9mYGLqxitvHeDCGD 4SYZCjBOgAAJINXDL2T8R cZhz4TMSxtKbw HM8qmGYlEJizKa9tmYrgc PcyQV9eIQNayxouBVSqnS 1rVYQflOXakErlAN3tDXC hvfgha220LlCg VNX9FNZkqQUkK9MxzP1fP fWfHJGjWANfZ9QvaTJdWV xyC054LQpuYcA3AGNfzrW yW0BkQGAzoNim XfB4h2Y6Zo9fHQ8zBD4zY WXrED59VV79xVScq4D9uW B2L0PfXWRlqyogibjrrCY 0ETQvOXZrwR96 uNWaHSvyNz7md5W6k288F KHlJFIuyN85Um0rjJlmQD CkpJMSaE3vbobon9bywig gIzAwMDAwMDt0 GFd7MMVqxOnlUnOvCMM7C zX2GDN3pHVuyD8cwPwdan zpeN4oGrp+NjAgWWVhcnM 7J9VpYnk5XKMy tNvmDM1dnVEtMVrtEz6dc BkqbYxkOV7yZXKlsvgqUX EbcN0rCGGvmGJkyKfbWY9 wQQOudexiq654 JpNbHMR8EJGxjJLlZ2Sqi X3uGuLnVZPtJHNwO6IqhV OrKFtkO299EMocRbB7AEB askIxZ0MyQDFo iNeiCxU6s3Y4Ei9BZV0ol PM9C1OfPxm3YUQxtJbePV 7viMOyYCpgRf8oqIfckTx jBT0zJJOpisqk PUTtoA5zNHFbdZDhqGmhV S5mSSZnunceg955SfWeTT H0GERxaEPbK8UnaB2jHgO lQCKkMCDdP5Fx kQAtAXtdI289AOmmJmO1V TUympCyC9KkOMNpnMpqKl O8f8V4Iu2GgERkMQMsIL6 9SI92GI49L7Mk PjwvdGFibGU+PHRhYmxlI HdpZHRoPScxMDAlJyBzdH urRH9fLf6wUFFfJKEebTe wfLMuDpNng0rs EMQjFBnsOP2yhLpmL6Aka MZ2TDWch9j0At46G86cG5 JvdXA+BYEktWW8nBQ7iW6 uNiWkLyW9JQtb G275ZaKewZPtUhbvm5gjx 5ndoIo7AnExEUBzztCilS rgOAF1w3NrPz92G06tZKm pZHRoPSIyMCUi EOOcdEhots4xmP3rNv6+P SMbxPH2qHP8uO8gVeWmOs V8JRlzM295GhIojTQjIbq vT25nG2LduEN+ PPYbFyp7RGAirTwoMM6po YAmUSxeMp9rGIO7UkOuRu RhDZinM5FmRYUcwsxwctk hbGO5VYXuRMOv cY65Je3ziQnvBk5wOARmJ NV1YTTtaSJeB0SewB1kWp XnEATvEYPxK4OvrFAwJGl dD404OIrwUoI9 UJEibfQyJ7FiCHYbkCwgW jT5r5X5Ro7TyTqacEAtQY 5hEcWxCQt5I1BzXoz0VIJ pkDibCU3tlZHc PXpdXn9saZdfrTudTX6eK ELrndppc279JcYlb3jxRT PyeSNaUEgnMEA8H54wa9M 6SMSjBWCmHKG2 qUK3tM0dfJmbylsluCJng DsgdmVydGljYWwtYWxpZ2 95IGQrmHknCmNXYpi8E0C kUix6EIKmmXlx GO9uzDSiGRlkVf5tnFilr SeoGP4lSXBdjqlwz066Fr Mlo2lzFRYzlZBoXPrbJDF 3T82to7X0IUVe QAHeRAB4tAT2oL5deTnpv jogbGVmdDsgdmVydGljYW caGIunU415SQJzcKmkRb8 MBgk1Q1FdCfa0 FXEkoTvjJG1xlGAvKNdeS o6qjZleqVqoMQ5iLDRcfe rli218ScAwh2cxORVsjMD tBZufLZO4K68s o8D9YWGnUTNeYZU3cSR4o W4whSfeylztmXTocLmfyd EebOqiEYomTMflX428TDL vcDsnPlBheWVy OjwvdGQ+GK88qt38L8RwT flnWgg9XKYxRST0xIN0kA 4tICZdQMthb0A1pKR7Z8Q xpvQmhz8hm0ma YXBz (more content not included)... Normal [facility] Consent for Treatmenton 04-07 Consent for Treatment [id number]#1 .00CD:127 Normal [facility] MRI Spine Lumbar w/o Contras ton 05-04-2022 [...] Luis Maya MD Transcribed by: CAITY Technologist: ABRBRA Technical Comments None Normal [facility] RAD - MRI Screening Formon 0 05-04-2022 RAD - MRI Screening Form [id number]#1 .00CD:127 Normal [facility] Insurance Correspondence Off iceon 04-27-2022 Insurance Correspondence Office [id number]# 2.00CD:127 Normal [facility] Physician Orderon 04-27-2022 Physician Order [id number]#1 .00CD:127 Normal [facility] Physician Order [id number]# 1.00CD:127 Normal [facility] ECHOCARDIO M/2D COMPLETEon 0 04-20-2022 ECHOCARDIO M/2D COMPLETE Patient: ELISA LEUNG Exam Date: 04/20/2022 : 1960 Gender:F Ordering : DR EMI FRIEDMAN . Admission #: [id number] Family : Order #: [id number] CLICK HERE TO VIEW EXAM ECHOCARDIOGRAM REPORT [...] Reyes M.D. on 04/21/2022 at 19:38 Normal [facility] AORTA SCREENINGon [facility] AORTA SCREENING EXAM: [facility] AORTA SCREENING HISTORY: Vascular calcification. TECHNIQUE: [...] by: FRANCO TOMPKINS Date: 2022-04-20 11:04 Normal [facility] Outside Records Officeon Outside Records Office [id number]# 1.00CD:127 Normal [facility] Progress Note-Physicianon Progress Note-Physician To whom it may concern: Patient has been evaluated for lower back and leg pain. But also popping and cracking. 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 She has used OTC meds, anti inflammatory meds and muscle relaxers without relief Due to all of these reasons I am writing to have you reconsider the Lumbar MRI for possible surgical interventions vs referral to pain management for injections, Thank you Sophy Rush PA-C, [facility] Normal [facility] Comment on above: Result Comment: Elec tronically Signed By: Sophy Rush PA-C\.br\Date and Time Signed: 04/18/22 13:50 EDT Outside Records Officeon Outside Records Office [id number]# 1.00CD:127 Normal [facility] Insurance Correspondence Off iceon 04-11-2022 Insurance Correspondence Office [id number]# 2.00CD:127 Normal [facility] CULTURE URINEon 04-06-2022 CULTURE URINE Isolate 1 [...] Trimethoprim/Sulfamet hoxazole <=20 S F Normal [facility] Comment on above: Performed By: #### U RCX #### [facility] [address] [place] [address] Dr. Jeffry Daniels Coding Summary.on 04-04-2022 Coding Summary. CD:[id number]:[id number] G h0bWw+PGhlYWQ+FN7WVEK rG91hxHHgwE7UO7mQXD8O AKKDQHAFUO4OUK8hdFU2N BfeT8DmzmTv PvzyvDZyTE51AYi5AEX5k ZnnHPndsL7yjIJmM2t7Nb IhTL77zT25FAjvRDFlVmY 3LjZpbjsgbWFy L6zyNfNujBFzKhj+PHRhY mxlIHdpZHRoPScxMDAlJy GnyGkeKG5yRz2xHQOtYOL vbGxhcHNlOiBj m6bfAVRrCDoaEY5jkSuqQ 0NoyGN3FANec5e4Fq12uO I+YPRiDUG3gYngAFggr02 6MvCfe7onWVM7 eKZuLJdxLQL8F12hj6W8W TQyRLGuWVT4wGV0uR3wlT akyqofA7ZkfWZfZdQ4WTP 8wHHfaY6nsGyb hmeogN6lTkj+Y79EOY3NV GWDMW5VRom4J7QiPmpqjJ I+BK64KPApKP01yCBavWH mf8sslBj8GrBa VRRhBTA9dDdgQMpxa5PpY PPhZ80mfKPbj9B4ZHAplH knuWYeLtHukUW3bM5nPRc gneqmt7kujoqe Cbgfc5wnas20tP79Z90wP YzhPNGyJUN9APSnCUQkjW pkrv7ztQ6iDr1+CNtfu4g en0eztVd3AeVq CMTwbbVvqNsdMJE4b6MdS o25B5UbiFnkx3WyTpu9tu 61cBNuf9P3hTG3WKxbBML ccA2gRQmbDtP0 QXUzFxUboS12iRRaCQdrN l7bdSzxuGblWI8uBYCvli lgRJMglP1yXSQpsQZniUv wBC5cTYWmiiyk i741GaXgRND2NUSwmBAoM 7YrhL4iUaEvMSOmRLMnB5 VmiNRtOZngT103SRztArH 6FZKughLkK7Wc KREovTslThR7t8K2Hf7Zs 7UgfkxxZNP0KRpdUGO9Jl AmCxCnBvW4R4FqJsb8YJM mjLoyYA1sQ2Zp UJJbgvvjzzewqHX5LWHkR LJpbX79uAQuNCchCs5gi3 S6j698WXXuPUTujC14If5 udDogMTBwdCBU fQ9xxtwdc6qpgflwNlXyF STzQMg3KMt0ZPSlgJotSj JgNJD5KnJ4HGZ1wCYgoC4 deHpjajwhlH4c Oyc+G28gtI3vPVP8FNZ1b rnsWCYdqgIoIN25NO95K5 RyPjwvdGFibGU+PGRpdiB gaPzzPN9gXkMe a9vqb1RdHCadC3UjYFRjB YlwEld5CKYgMHO7uUE4tT 6wQXGwGBtdq0G2pRI2E4R owcEtww0zf6sx WTTtIAncL18fzAByu8Y4E ZQuyIC9JOAnvLuvIdFliT 93Oyc+NHXiaDhhj3AbXpa fd8rsy7ffrFm1 WoTbOVJbbxIotOedDHJ2m 1KnPk88Q69aRSeoSIEbVO VeHTNjFIMvnUcwis2msY4 wIi8+PGNvbCB3 rYV8kN2zPILwKxD5KNooW 672KlJrfUBpPujln8xju3 owqTz3OsAfWBJvetUjhVb oYJN1m0SgPb77 I08rPBmbITJaRGUxKUJgL JYoeFiqcz1jpZ0xXe3+PC 4fp8epcf65kD47eNZ+PHR aZKY8bUewKQgp XSZnmP9vJVkpHqF8RENiF lTstM30cYUjWTvqNh1puT wbqKjfWH5kEGXudewpr77 3PcQsg2leQYRj nWOsMLicHVY6V28bb8B6U HWsYFTaXLW2zLS1sC4nmV lnbjogbGVmdDsgdmVydGl eIOogGMdqN183 IHRvcDsnPlBhdGllbnQgT mWhBMm7E7LaWvh4LFKviZ ohQB1eeMQpWFpePd6pmSk exAebZO0yURUa ujxmk746VoRvq7muDNGdr RShZPeuNEI9G88ys1L3VJ IeYAVrVXT8nEO9dM7ylEp nbjogbGVmdDsg auFikEzpFTkwLDwrZ466V HRvcDsnPkJpcnRoIERhdG Z0JJ73RP84hYGwl5N9zZU 3K2AmWMVwsfoc wziglDZ2ZHNbSLLjbG38M q7omDagXy6nTOJvJCW0WF LntQSlW7PsqM2mDsUlCJK bRJCeW4UbeWZy DTfiH008CZpiReW2MKCjs uIcX9OsOFMqjMisIlO1i2 P8Ws4YZ2Z9PA70WP75wVP ek8F0sVQ9O5Ka MXXqilvhqbtrhXG3HREqP OLbzV86Yy3beQdaNz2dRG LoNWV0VCEwsSAoY2IucR5 yOiAjMDAwMDAw X4VruJHlSCthH246PDrbO vQ3ONTeyhFrM5AqLSEukF phPnW8x6P3Ws2BVAn7UX9 6GB71lAWbl0G2 uPS9R2NjFMMjqfseuigua HO0BSReQEIwrT66Et3odA hhOy7cQNCuKZW4ATLcfHL iW4RviW3vGhRi CVRcMHYhP9MpgQNlKAgzY 117BTsrOhB0LXLjccRhJ1 DcRHGfrRddZjX1k8W8Mq6 LQUIaVK13GZR5 gEJ2DH18PN55F5HiUwexe GFibGU+PHRhYmxlIHdpZH RoPScxMDAlJyBzdHlsZT0 iNk0vLHMwBVTq iXylyDKoXqUvv4onXWYzZ GxvDR0uwAspX8JrxZM0YN Bxn3a8Tp36J66eK2QusHN +NKFnmTZ8vEM6 eZ7iFqKaIxN1EDrjP168J cJcnZVbGkhir2uuf3odfE u9VrF2OFXcozFbbKmuTTP 7r6JyMe98H56o IHdpZHRoPSIxNSUiIHZhb Yteps9dqN2eLf4+PGNvbC E0dKJ2kV8dCjGqRvG9FSp dK646AbFksSFl Zhmgb9wrh4zimXv3MbXyB VOlhoNmvKdaKXE4k5CyWo 06T9WcrHbtf0IdZgo3ie6 2aWBot4V5sGB9 R2YkVDFvkvxpsANlvEfnN N5pOJSucwcrCAXfeM5pDB WsD6k2HvZjLmA2XRjrS3H xzsW5STAinBLp AFndQEA9Y44nk7D9HGXoM CTrPTG7wXW1xS0abEknce ogbGVmdDsgdmVydGljYWw iIWgsJ828EVEe rWdwUILfjK0oVFRgqILxp TrjNR8fRXAohowhBqMGMC 5YSAIlSAgCQLKDMIL6D3K eFun3OIUuiGvd KQ8xyYCgAHhqKd6pkGrtq UdcCZ7gEBCzfykeJOForG 5eKGFgiMQwxEakST0eIKQ rxeqhj253JcZn ECQ0OTXygJIgT9QleB4fP dJfYOXbPXCcK7UygNObLW rfN203YLhlNwM5AWVeuiW wA8NoIFCrlHse QbP6e8W9Ef4aGC9zLS0sL ROhIO05GY40vYFrr5Y5fR X9L1AvONOivgwufmhxpOI 5DYKyXTOfrR03 hZCaQDwjOm3wv9B1v781G ONmSKUwqX29Vj3dwMlzNK QslRADfP4ygeccq8bgcby gIzAwMDAwMDt0 UAk6PVJcvOtzGvDlMIT3H qT8KNX5oYYgvD5qdUsmih sbjJ7gHgh+NjAgWWVhcnM 2F2CiYbh7KLCv kUpiFB3apQWkNMsvPc0pp HnjyLrhRG4rCEQstexsAF ZgkG3yHRJliSTzzUckLS8 lOPOfebpoq237 FtTwLSM8BGUrtIJjG2Eod U3wQcWrJKHpNTVpE5VueE LaBDxfW866PYrrAcY7DNS dwtLcU3EtSLKt lEygYtC7p3Q6Ma5ETL9ui PN9Z1FfBfe8OHUiqQxwYK 9ibJGkYZqsNn9niMzsgNu hMF3kSIVcpsnf ZXVunA1bBLFsiVWmiMemN W8xOJSxddpmi333BmOrZF O3BLPznEIyI8QamM1xJiI dHFVaANUvG7Vi yGEwELhuG895NUfxWbQ9V IRljwZdN0IxWNHcjEztOy W1v3O3Mg3YdXZiFKCrWJ9 5SH87CM51L2Xw PjwvdGFibGU+PHRhYmxlI HdpZHRoPScxMDAlJyBzdH flMW8mIt2lIQOyCOAyhSl slBZzEtSih7yk UNNbHJenFS9ffYekM1Faa NL4TBZwa7w1Xh27D64sY2 JvdXA+UGBjlGM7cUF2xP3 aNdOnGhV5THde X021XzIhjCUtWvbcj0psq 3fvlKa1EsKtFQJwnvTeuL wtKLB1i9SgXt20J62zALm pZHRoPSIyMCUi XFAfbKfsmb5eoT2tMi1+P BVvtIB0nPT5iS0kOxQdIc P1KWxlN592FfKfaGJgGqa uL71aS4RvjXX+ ELZxAlc3GHSkpSwzST9on MKtLCouSi9yURQ6CwMrMq CxJUkuO9WmCJEzwpmpbgy ugEA3NCNfMLOn dJ84Xr6qvJsbLd8wRKZvV VO8BNKftBZuH7TmqU7mOc VcBCTmMYVeC4OhjZZyKAf aZ602NDxiFtN1 KHUudlTjA3ZkACWfdXkoD aJ3n3J1Lb2AoIpfyFFjQH 2nRzWfRYp0A9XoPii5QXR riYpuHF8hgHMl GDaoTf0ldDmatTsiQU6hS CDczjtag182NyWzc6bzSR UsqTQlNMbfTOK6N22ne5M 3HTSmUFTgIUQ2 bEY1zH1ujDhevodumIQii DsgdmVydGljYWwtYWxpZ2 41CKKzvAacTsHAXjs2J9F jZhr5SCCasCbt NU4soTStMOsfVc6slUtry XhcMR8qUTYvtuotm391Ka Fxb2hbLSLlcXEeYNsmUYG 4X34ah9X5XVBz JHJeAHN0sEG6wR3qaRawj jogbGVmdDsgdmVydGljYW lfIHbhJ031MKUdqZwbDz0 QOzk3D7IkIzi3 TCMasJmjSK2sjQYvTRqkY c3ldIarlAqtQL8cXXInmj okm822MiDcr1dzYPAhpIG xCTxgSFM1J62v k1W4RGCxJUZnBKU5jEZ4g K9ajOnzqiiytUQupQczfs RjwHxjUDgyMNhwX622USO vcDsnPlBheWVy OjwvdGQ+WZ47ja83J1HlG minJnh1LANuMUC8aCH0cL 9xTFCuUAnpm4X5wQB1N1V bnwKeyo7fk5xx YXBz (more content not included)... Normal [facility] UA RANDOM W/MICROSCOPICon BACTERIA NONE SEEN Normal NONE SEEN [facility] Comment on above: Performed By: #### U AMIC #### [facility] [address] [address] [address] Jeffry Daniels Bilirubin Ql (U) Negative Normal NEGATIVE [facility] Comment on above: Performed By: #### U AMIC #### [facility] [address] [address] [address] Jeffry Daniels CAST NONE SEEN Normal NONE SEEN [facility] Comment on above: Performed By: #### U AMIC #### [facility] [address] [address] [address] Jeffry Daniels Clarity (U) CLEAR Normal CLEAR [facility] Comment on above: Performed By: #### U AMIC #### [facility] [address] [address] [address] Jeffry Daniels Color (U) YELLOW Normal YELLOW [facility] Comment on above: Performed By: #### U AMIC #### [facility] [address] [address] [address] Jeffry Daniels Crystals LM Nom (Urine sed) NONE SEEN Normal NONE SEEN [facility] Comment on above: Performed By: #### U AMIC #### [facility] [address] [address] [address] Jeffry Daniels Epithelial cells LM Ql (Urine sed) NONE SEEN Normal NONE SEEN /RARE [facility] Comment on above: Performed By: #### U AMIC #### [facility] [address] [address] [address] Jeffry Daniels Glucose Ql (U) Negative Normal NEGATIVE [facility] Comment on above: Performed By: #### U AMIC #### [facility] [address] [address] [address] Jeffry Daniels Hemoglobin Ql (U) SMALL Abnormal NEGATIVE [facility] Comment on above: Performed By: #### U AMIC #### [facility] [address] [address] [address] Jeffry Daniels Ketones Ql (U) Negative Normal NEGATIVE [facility] Comment on above: Performed By: #### U AMIC #### [facility] [address] [address] [address] Jeffry Daniels LEUKOCYTES SMALL Abnormal NEGATIVE [facility] Comment on above: Performed By: #### U AMIC #### [facility] [address] [address] [address] Jeffry Daniels MUCOUS NONE SEEN Normal NONE SEEN [facility] Comment on above: Performed By: #### U AMIC #### [facility] [address] [address] [address] Jeffry Daniels Nitrite Ql (U) Positive Abnormal NEGATIVE [facility] Comment on above: Performed By: #### U AMIC #### [facility] [address] [address] [address] Jeffry Daniels pH (U) 6.0 [pH] Normal 5-9 [facility] Comment on above: Performed By: #### U AMIC #### [facility] [address] [place] [address] Dr. Jeffry Daniels RBC 0-2 Normal 0-2 [facility] Comment on above: Performed By: #### U AMIC #### [facility] [address] [address] [address] Jeffry Daniels SPEC GRAVITY 1.025 Normal 1.005-<=1.025 [facility] Comment on above: Performed By: #### U AMIC #### [facility] [address] [place] [address] Dr. Jeffry Daniels UA PROTEIN Negative Normal NEGATIVE/ TRACE [facility] Comment on above: Performed By: #### U AMIC #### [facility] [address] [place] [address] Dr. Jeffry Daniels Urobilinogen Qn (U) 0.2 {Daysi'U}/dL Normal 0.2 - 1. 0 [facility] Comment on above: Performed By: #### U AMIC #### [facility] [address] [place], [place] [address] Dr. Jeffry Daniels WBC 2-5 Abnormal NONE SEEN [facility] Comment on above: Performed By: #### U AMIC #### [facility] [address] [place], [place] [address] Dr. Jeffry Daniels Coding Summary.on 03-31-2022 Coding Summary. CD:[id number] G h0bWw+PGhlYWQ+XL1ESYX tW26apHEicK8LI5mISV2J USTSFQYSWX2PFX9nsWJ3L GarE0KnjmNm WnkmuATeXT05VJv4BLT1n KydEWyvaQ9waHAaB3v9Mk SrNX58hP60AAasFGAtMzJ 3LjZpbjsgbWFy T1wiNtKgmAFxUqc+PHRhY mxlIHdpZHRoPScxMDAlJy WvwQolZA5pXg0yMHCuKZG vbGxhcHNlOiBj l1nzHGWeXXzmPF3hfDpiQ 2QmwUQ9UEYuo8w9Qw79hC I+OCUtKFQ3hCmjERstq39 8RfQoa5ajDAP1 iIBdYZhxLCA7I47yq2W4I SCaZGOcCRR1eLD2bT6sjJ kmqolhJ6HjgRQtPbH0ENA 6lCGmfX6hlGgc esjhyR5eYra+K30DQG9LA DXCMJ9HPuq5X3OjCxgpsX I+LE98TWVlWH25iXXedEZ vy2bvqLh5TyJg ISTzDZZ1cLleFOqnh2WgB QAnA95hqQJez6I2ZJCbfZ rfeWHkLxBqdXG6zJ5lQDs ejflfs4mraouf Ielup3qekn80eQ04U41oF WnxIGJsOTE3MTZrPTDaxL fgqj1cdE4jVg3+BJcyi8h oz9xnaWc8MoQa XOCljtQecUqdYYW3o2HzH s16O9WfmKpzs4OnNvl2fw 95sYGiw6Q1gHW4TKirIBO ddY2kRBevYlQ2 EUGfKgScqV52zNXvLNiyM s1jdChmbNctJM8lWMXhpw vzDXIlyX0cHQAcwLJrwMt fDB3bISUovvgq w103EfGeDCD8PTLcaCAtH 6YbjI6gQfNtBIThBXPwH5 SetMDeTUxoH609FXfqPeQ 0WHLpcuNtY8Xa FOFdyNkfQzZ8p9U3Mx0Iw 2ZuyvvaUMK2NQnsFWL4Fm B0DiVdHlJ7C2XgKmk3MXB egIceFF6zM9Ki FVDmwloctuzqeRU1PYAuT IGslI24fLJkIQesHo7qo1 D0z012HSTcVPBxwI82Pj9 udDogMTBwdCBU fH1xrqoik3trfkkhEeUsE ZYwVHh6KDz8VJUlqSkhLf ItLQI8XvJ1DTP3sMAbbG4 itLjdxjcohJ1o Oyc+L87ebP5oEMQ6XVU9x wseOSMacpKtWK82KO12O8 RyPjwvdGFibGU+PGRpdiB jiTakOM6yClLa q3sjw4WxOBpjA0VoSXQnN SnsVuu3JTYuROY7tSV7rF 5jWHHaZBvhh8Z8mZN2U3B kidZbsu4rb6cn AVBlPBopJ65puSNuw0N5Q JFlhMM8YUWtkTunBkKzcJ 93Oyc+PGBvfXkpa8NzFtj qd3zlw3efiOm0 NqUaJYTlgiBgiWhaORU8n 3QbPh22E67oZCtlFOGpEG PbYZRoRFFyjUswyh8vlA5 wIi8+PGNvbCB3 oZY1pY4aZNMaUaY2KXhuF 675BmLwrTCaLspjw0gac9 nxeUp2PqJpUMKikfPtdBj dMSU7i8AnBj12 C56eGSpeYFJqIQHcTDDbW ZGqqXbwxo8peC2nYo1+PC 0dl9jygn06rD07dPY+PHR tKUA1cMjrCMxz FMNetG7tMNzoDcY5GPKpS wRcbV56tJHfYPjnKt4xjS zreTwcBR2oQERdiwjri14 3McKti6eiDBDx aRIaJBlmTNY9K39ch6H2G HYySUEdCSB8yRP3uR4tvS lnbjogbGVmdDsgdmVydGl tOEsgEIqbB224 IHRvcDsnPlBhdGllbnQgT kZzPBj0C8QpQdi7ENRmiP kwOY2jkQAqNTagGf3qlSo orXxnAH9dQAWu uojia837ZrPrn8njRSXmg TAnSSqhENH0A84tm2Y6VU OiQEWoHFR9jTN1sF2csKr nbjogbGVmdDsg ucKtnXooFYxkMCpaO848T HRvcDsnPkJpcnRoIERhdG R3NC58EA31lBCfj5G3bGM 6K3RiADBxafmc tctzpCE1POHxORCtvH67P g1ydVwkNa1aDOUaIQJ9XX NzaWIsY4DekV1dSiJjIQH hLVTuT6XzwPRs HRmnD413HGjmEzA4TXMsh nRyB2BxOKPhkYpzObC1t6 G0Vx5DA5L2OG84SU12sTG lm6L4mLH3H6Pr FLPimcjgfyjfrVI4XKXfR XGzpQ15Lg5xjOufPj5pEO ApFNH8FCHcqDHfY3UunJ6 yOiAjMDAwMDAw L1BctWSdVHzeO997JNxbV rG5MWDumcIrX7XcTOHhuG ijWeQ9z0R3Xg8UHSi8RD1 0GN01aZBts2L4 cBA4B7YrDDCzxizitfcef UD4YBZkAKKihR83Ai5yiD dyLf2zOOXhWPJ0DIXybUY zX9CavS0aLmVn EWSmCWPfK7ByyCYjQNqfV 298VDobBwR5ATJgoxFpV2 AjXPPojXryReO0w6J3Bo5 BSTIhEM93DOQ7 aIH8HS73CW88D8FqNyhms GFibGU+PHRhYmxlIHdpZH RoPScxMDAlJyBzdHlsZT0 kCd4gSYGxBNZt pJwpfJMmQbUmi4zyCVDuR DxsOI6ukQvaY2OjuKB5AT Sas6b5Ga84D08bA1ZuqZY +GXSzkRT9tWJ7 rL3sHpKgUbH7ULccV988K hDytQTaEdkbs7fzu6elsZ g8WbZ1WLEiynXomAuuVZT 0f5YsEk70N13z IHdpZHRoPSIxNSUiIHZhb Izdbj9iwF2bGs7+PGNvbC K8xBV7sN9dBeZuVxF5EBe jK105CdWmlQDt Zjyhs8wwj6lnpAp3YcQgC XNiiyHtgTduZJP0j6WbCg 46J6DtdPmuf9QsLtr0hb7 6iXNky5S9xXF2 X5TrGWHlvnclnCCofSxgN R1eXHXqzhpqRPTuwW5mZV CnB5a5RaEgZaX9XApwZ2E rjqZ0TUGvbJGc HAttNWW6W81tk4W7ILPhT BDlZBV8uVM8wM4bjWydhb ogbGVmdDsgdmVydGljYWw lHUuoI305RGKd hYfePXTgmU3zHYXbdTUjo XubGQ9cNDAeubqwQpAZKO 0ONSQsRYuGJLTDKDG6N3S lNxp4ICLeyDxz HC1xoZEuOFnhRz8buWgpr BblZX5gAXQaxjnrRXHinF 2yBPAaoGEwxNziXW7eXPA bwolcq406VfVu DGZ9WCDczXLzM2IgsE4rA uErXZAmITAzT6ErrXMcHC vrS650SVolIjX2RWKffeD mM1UpBQQpdEfi YwP7z1N9Oe5wHB6yPH9uR TFdCG93BH38gPGia2F8kX S6A5TnOQBqepcnssbjhJU 1PROmXENejH99 gXBfXKosNj8xl3O3s784L LTsTGEzcK83Jz1uzTmtPJ DkeERJuB3ogzadp3swqvg gIzAwMDAwMDt0 LDs6VRZzwFsaJbSyPTW4T xO1XGT8pVBxiX0nbVvmvh wfvS1iYxw+NjAgWWVhcnM 8J4FbVbd3UUAm uTfoVI8eyRSzMWbzUm7uh NxysHrmOJ8vGEVfndrsJN GgxJ3aCQPzhGPgjAlcKF4 iVCKnaoqoo749 WdLdUWQ4FRBoiHNnS7Mke V3zTuGfRVWdDHAhB4ZfsU YmBBoqM503CJifAmU1ODB zdfSfL3IeOYAz iWqlXpT7a7F4Jv0WHB2ys NP1D4WcVkd6PYIbzLdtAH 9rxCOsJFncUl6oeIaulWn pHI9iXEOrdgso AKMblO7dXKHiqHDknBvuG E4xXKJcrvtmp010EtLwLA A6UTHzrIRrJ2GhnM8fBkJ aKIKkUPIzI3Sz aOLhUZybK139ODnhQdY4M TOvxpRlO9MjEZMisCdkEn M8m1P1Oc9IjBIgJZAbPT6 6NM96VG18I8Ap PjwvdGFibGU+PHRhYmxlI HdpZHRoPScxMDAlJyBzdH whFA1fOd9tKUXuVYDnvPy oeUNpMpXts4jn NZVeNEqvRV1dfWhiL6Icz JY6HZCnw5g4Ui41Y96eG6 JvdXA+LCFpsYR1ePL2mK9 vMmGrZuN0SEbs J362GwTmeVErJeltr4wvh 0ukfMq1FyEaESPsxaJhhX gzQZJ0z6GxOb59H96fQKn pZHRoPSIyMCUi TCSqcEoudv7icF7rLw7+P CVasAA1wML2hO5bRqHjUq J4XVtlO999QnUmuTOxOfh dA80pC2QabAS+ YAIvOwa2CBHzvGcjSI8ja DDhOPctNh4fWBG4GpRnPu ZnHUjnT3DoYLOmgcdmvwa ppCU1SSExOLPr pK39Rp8ypLadRp1zEWReA HY7BRFemIVmE3FpcI0oTq QlLTTgVPObP9EptDKgRQk vC213PUuhNwB9 WLSpxkCsL3QxJIDqjWnfH tV5c9E4Xu6FuFcrqYTmOS 8rOmCkALl0P4KnKci0GOG wwPwfJP1hfGTr FYnqKl9qrYgpjMmvRZ2yM REkvfrwf423RuTka1fnBI NytQNvTKrsSQT5F57uw9X 3EJYxRYEuCQL6 lNJ7eR5soYqpjhvgaSDqx DsgdmVydGljYWwtYWxpZ2 69MJFeuSzeXzBTKhe5B5J wVpo3SYMupHql YQ2tfQBaRKufXj7vbIpjf TofPO3oSBDdafvei075Nk Zig6rvPVNchRYoBUciTBI 1I70yx8Z1QHFy NJUxJMH9zVF4yH6yfZjur jogbGVmdDsgdmVydGljYW ftNAulJ255NDWxtXrjHa9 DPgr0H7NhHij8 STOivXnoJF0mzCHrMLctV g5kcWcszQxnXU6dHHSqct ldg106OlHks8oyYIMqcDK hKWmhZJU8D36w t5I6GPCiVRKwLCH8fJL0q I7ntWorxbyyaCSboXdlkk JewRtkUFpdINfaQ803JHK vcDsnPlBheWVy OjwvdGQ+DK01ta92X9AwJ qccPll2SEJrKDG0pDH5zL 6lNPRjBGppu3U0kQR9X2Q ltaThrx7do7vc YXBz (more content not included)... [facility] XR Spine Cervical 2 or 3 [...] Aldo Coburn M.D. Transcribed by: CAITY Technologist: [facility] XR Spine Lumbosacral 2 or 3 [...] Aldo Coburn M.D. Transcribed by: CAITY Technologist: [facility] Consent for Treatmenton 03-07 Consent for Treatment [id number]#1 .00CD:127 [facility] Consent for Treatment [id number] #1.00CD:127 [facility] Consent for Treatment [id number]#1 .00CD:127 [facility] Consultation Noteon 03-28-20 Consultation Note Patient: [...] needs to get it taken care of. Zvmh-hob-nflkiwd anti-inflammatory medications do not help. 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 Hypertension / SNOMED CT 0028869008 / Confirmed Anxiety / SNOMED CT 03993869 / Confirmed Lumbar disc disease / SNOMED CT 6186153744 / Confirmed Lumbar radiculopathy / SNOMED CT 539136678 / Confirmed Chronic gastritis / SNOMED CT 61001551 / Confirmed Migraines / SNOMED CT 92868180 / Confirmed Insomnia / SNOMED CT 159990076 / Confirmed Colon polyp / SNOMED CT 465059805 / Confirmed Chronic leg pain / SNOMED CT 679905479 / Confirmed Laxative abuse / SNOMED CT 675927000 / Confirmed Chronic cluster headache / SNOMED CT 605140102 / Confirmed Vitamin D deficiency / SNOMED CT 22549098 / Confirmed Hyperlipemia / SNOMED CT 67149283 / Confirmed Osteoporosis / SNOMED CT 008250740 / Confirmed 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 [facility] Comment on above: Result Comment: Elec tronically Signed By: Sophy Rush PA-C\.br\Date and Time Signed: 03/28/22 12:44 EDT\.br\Electronically Co-Signed By: Derick Meza MD\.br\Date and Time Co-Signed: 04/04/22 07:48 EDT Office/Clinic Note-Physician on 03-28-2022 Office/Clinic Note-Physician [id number]# 1.00CD:127 [facility] Physician Orderon 03-28-2022 Physician Order [id number]# 1.00CD:127 [facility] Physician Order [id number]#1 .00CD:127 [facility] Physician Order [id number]# 1.00CD:127 [facility] Coding Summary.on 12-29-2021 Coding Summary. CD:[id number]:[id number] G h0bWw+PGhlYWQ+AT4ZHAO hR58vqPCaaI8IA4yZMO9P BKICICYRQZ8WXY3ppJS8Z UbuI6LnmqFh EgqtpNZbBU09IEa2SWO2g JinJHbeoG9phFGeI8c5Wn ViYE10dF87CQupGYHbDaB 3LjZpbjsgbWFy Y3uyNkVayEGmDsh+PHRhY mxlIHdpZHRoPScxMDAlJy JnsLqcOJ9rCz6zDIUiGDU vbGxhcHNlOiBj g3jvGZXuYYtsCQ7fjXjpM 3JonTZ0IWZee0o3Gp52dE I+SFIjDIM0sKdnFRxav87 9UzKqa5lxCMN2 kVEeGEvvZLD3Q29pi5E3X AGxLCRlGXE7oVW5sO1omO fwutbnG1NpgLUoAbS8UYY 2iRPeeN7mcWlb jfopcD2eNtu+W11QWB9AV VNXRZ0SOgz2O4LfWjfimC I+DH73NVBiFK39rGVmuSS wt9crfIu9PmRk EHZiHUQ8bQcfDLrxa1TjV HOsY53enYBwb8N6DRCiwO cmvYHwUrPruTA3fQ9oQUo jdigsr4nwwlef Mgxvn2vjrm61qZ91J25zW NxlARTgEUP9IPTwVVFxmL cxmt8znC2cDd1+NFugd9t ey7pxjAg7HhEv VONjdkRowXpjYYX4f2QhI e28K5ViiWjrx4QwEnw5tj 15xLAxq1G5qPG2MCaoEVE eeF5lMJqvJeW5 IVTqUgTojB12kYDaKJvhG l7vrUnsxCujOA5qYVXwnj wtFIYfxB9aFUKeoOXqpMi kEH4jIKWklsgo d534ChQbRHH7GTIilDGzV 2BkgL8oIxFyNPJbGEUwB0 BhcMGxZFdrP213RTjpFhJ 7KCCekfIgE8Vu NYVpgYpbVvU8m3A7On0Xe 8IgbmyvOWI4LIvaHHW0Ie T1RrOfZnH0O2MgJwl8UAH ctZmqWG1wS4Cz IUHskqjhjzsscIE4XZDnM AGqcN31gFHrOPplXr1go4 P3v506XEXxNTRevF46Nd3 udDogMTBwdCBU kU0hhmmhn0vskmpyUlKmN BZiZPp2TUb0XJKpnYskZd QnFNK6IgW7SNO3fMFjsL6 dsNoxtwukyT6m Oyc+X51liO1vQOH9QWV2i srdWNTzwcJiBI28PZ80J6 RyPjwvdGFibGU+PGRpdiB biRbbCV4fYmQy s1nyf5UqCPrjF3KnHHCyL RqzXtc5WZIhJIF1hFF4oA 8eZZAmGQvhs4E4yGN5P8P gfyMzcc6pl8sp SBAxHNkwB78cjKWgw4H9H KLvsMM5SPMupQkyJfJymD 93Oyc+CNUdnHsrz8OvBqc zz0aph5nlhOt4 JwDfVGXcisNkuLmqPVP0d 6AlKc39C17hADqdLIGlYY QaJTQaUWCquKxlmk2wiS0 wIi8+PGNvbCB3 wOK6iN7bZQGuSwK7PCuwA 362MtSahHKjLzoyc5fve5 hayNs3RbUhBKEqzePniAt pNPG5f1IpSu96 I71iBLqgQMYbWRLrNILeP CAslZctal8pnY9fOr5+PC 5hf2epig94qT64bCO+PHR hZWD5bWhlZHbi QLTjvF2yXEhvViF4ULSnA jXbbS01eWUjMWqqVw8hnY zprYqdZO0ySEPjcbjpo87 4EbIil5dqDGOm xVSfOWxoXWS0B00ow7K7E DYsBNEiUMJ4cHY0nA5avG lnbjogbGVmdDsgdmVydGl kNOkzEQcqE110 IHRvcDsnPlBhdGllbnQgT kMsALw5N8JgSop5ZZJpgJ zvCN1ndNNxDWboIo7ffAj bzJevOQ0jQSLx jlibt987EhDvq5hiTBPmx PDbSBuuRUL0D89tl5K8OU WqOEKqFSH2qPI5dD7jjQl nbjogbGVmdDsg mwVzsYwlHBsiMCweJ088Y HRvcDsnPkJpcnRoIERhdG K2WS55NQ03oJIts9I8zSS 9J3JpTOExxcis xklrmIB4KHPrDTQclV63J k1sdAxxRy5iDDNiQEG6OB LcrMZfI7ItdM6iHqUmKXU xUZSgM4JpnHRk LRfnY982OPktYcL4NCYjn mEaA4QmIFNbjQvoDxE5e3 X2Pd8WG0O5YT31AO15eEM dd4O6bZT2Y9Kz EPDvqtshyeydnXK2QKTwA HJigJ89Rr6ueAyyCd5jTK CwGPX9AGTebDBpS4TxhI2 yOiAjMDAwMDAw V6IfvODnCWsoL591BYtnH sX6PJTlhaXrF4RdHSIvvD wyLbQ9h6Y6Bx0ENOb6BV6 9AV79rJSzw7H5 wKJ2F4DmEWXgchouqifhg AD1FTFzCENdeH25Nf5bxQ yzYd6aADQhUFX8URRskJN nQ8WciQ2hAxVf UBVoAOFsY0NepCJsUSgwS 525HMblQbP6CBSzumGeR7 PaXPUoaEchUiO1c8P7Wn3 ZTYWsFT89PWL9 wQI3FZ07TA32F7BuBjlnj GFibGU+PHRhYmxlIHdpZH RoPScxMDAlJyBzdHlsZT0 pTj1vRQMjWFDr vTiwiXFpYeZuf6msVDZwL BuuEX5rdGmxV4DjpAW3BQ Wjj1j0Rx08S51fM5WeoUN +GRPyfUM1zUF8 pK2aBdKjQvC8PWgyV959N bLegXEcOnwkn2fza8zcyA n0EiY3HAJyacPjtEefESZ 4h0KkWd13O02g IHdpZHRoPSIxNSUiIHZhb Wvvls7mjN0xKp2+PGNvbC K9qSV0wH1rHoBaDcP6YSc eW510VbCrpNJe Mpatt9dgl0daoSq4BlTkX PUnwyMcuSktXCL4z5TdWt 64O9CvaOhxp7WgIcb4ax7 9gJKer3J2bRK5 Y7CgHNCxmumxtWYhyNkaE U1dWJZkrhvcEJRppN6sKW CuV9b5EaJpPcS4JTurM6H edcD0JCBxtFWu ZNzpNEC9X66nj7W5DUGiI DVoIQH3lPY6dF6udIxgvh ogbGVmdDsgdmVydGljYWw zVEddK405BAAc fDivGWKqdX2wQETuvISwi RnuNC2zFFMktzdhVjVDJU 6JMALyVVrEAGWWZBM3K2M pUpv2KPMkjAkv XQ4vyXUoOBymSv5nwYfnu AkfHY8zYDWpgcxgGVEvtY 8vMTJkmHUgjAsyRP1uZYW rhascw105RdKz JZT3FPEfuQByQ5XfrS2nY jMtNZWpCMVeQ1CydDMbDR vrC303HOzgNgQ3EQHtbvC iI5UxRLJnvSgp XpJ5u0R1Ob6zTE1iCG3pF AQsSD22LM86lENnb0B0rV Q5J2PaKEPesojkzjaezZH 5NTHlHYLvbO74 xMDzVZbgJe5fg5J6g630B JEoTOLkhR83Gl1uhOhaRX HdgUNEtW5lcvtsh9jmafp gIzAwMDAwMDt0 KZe4LWYcyZclXtSsCQC1I qS6DRT5wZIjoH4ejDfwyc oshE8jJfr+NTkgWWVhcnM 8Y0TnYnt2BXOd fYagOA0btBXxATmmHc1wu MejiBheQM5aYWAjlhnnWU PdmS9rVKBluIPqbRrvML2 fHXZwzktjo001 VuRpAJI8VQXlkPEaA1Iqy P7bMbNuRYJcLPMxD2HnoJ ObCEzjQ123RDapBhS7BAV wtsBzW6WxTWVw vIjpDpK4f9N5Uz5MXC0ol XD4T5PxEbu5VZBwtOavHR 1egWFdECqfSc1wiMpklUc qFQ9uFBCvvgpb DDPqsZ9rFAKvpFFycAusB X3jUXBwymuyp849ZwTcOL B0CEXicIPxM4ScbZ4gNeT wDNCtNFUjQ1Ot vGUmAUcyP488TGktHbD0Q XMygwTtW2BxCJGihWtqOa W5x5M7Jv9EpJPoLDWiBG0 8YA26YN55K9Ry PjwvdGFibGU+PHRhYmxlI HdpZHRoPScxMDAlJyBzdH iqVW8oAk1tWPHyDJEsaFk isCYxJmIhj9th MLAxSIgiPE2raLhuV3Fao GL7HKFnq3h3Sn51L35kI6 JvdXA+YDEgqDX5yXK1iP5 kTsDdCfJ7KQgq Y025IcRlxRZmFmgxl4orl 5vluMg3TcZuYYYlrlFuxO dwMFS3q3CzNo14X32jBSf pZHRoPSIyMCUi ERLnnZaxil4ymC7gPo8+P ABfmNC3fVA4yK7yAfCnIc E5PHjwF032OiOwiOLrWcz aB55lO4CgpJY+ QSWoYbx1ACZjsSupOG2lz QBfNTuwRw6nYNR6PbAiUm DiGXknI4YaFLZchpcuvpz lpCR9YRBgGJXg kB14Uk4keGznTk6mTHIyQ TX3FCDwgFYzH1JqoQ9yFh BdVBVfZXHgY7MuaEWhIUq fJ667MUyiSbO3 HMKfxjCcE1ZkOEVomBwfQ eE3e9X2Ag4OlZsgcAUsJL 0gMlHjIVg3Z4FmDsq6HII tzYbsMZ7nhOBl TRqgGy9kcOlkmHfdDI2lW EGvkxqqf860AbHef8cqLI AbeWOtWJaqDFJ3F08no8A 4MRLnPBBtRLH8 uHB2lU5pqRcqtakoaGChx DsgdmVydGljYWwtYWxpZ2 98BREhqUvuKqMNBze6Q0H fOpz1YLNuwLhu GZ1zxBJqIJurUb6pgMnib CcbKG0cXRFlnqgso531Eo Qml8qsQRWoyTQeJHkcGAL 8B66kf0D7CDEn JQEuFFP7gFD1wE8tgUufd jogbGVmdDsgdmVydGljYW bhKBkiE592KMWazOmrUw2 WTdb7F2VhDrc5 LURaiRpeAL7dxNMrXFuxN b8vjIibnOpgWC8gGQTfoi baq080HvNff1ojHAXbvGR mUEjnZNM3N89k n3M5NTVkCNHtOTO1wBF4f S9xkEyoguyomOOkrArkof SkkImoYOxmRAeiA879DLN vcDsnPlBheWVy OjwvdGQ+OQ95qz63Q9WnR zqfZht5GBLtACY5fPE2kO 9zRXUcOSmid0C4qLW1W5A nzfFizw7eb3hw YXBz (more content not included)... Normal [facility] Coding Summary.on 12-23-2021 Coding Summary. CD:[id number]:[id number] G h0bWw+PGhlYWQ+ZJ0VGVU cE64ypGObqQ5ZJ3wUHP4U AAKAMHEWRF6IKD0vrKF7J AvlJ0OwozWh NsonjTGaOL75LFw1OAX2e XqlKZvfsB7feEWkV6p6La RyJK28pT72JEimIHSbQxB 3LjZpbjsgbWFy P4rvAlJbuSRgDbi+PHRhY mxlIHdpZHRoPScxMDAlJy QofHdcXA0eTx2cQGPjMNO vbGxhcHNlOiBj v5aeVZSlYWyyZR7heDyxE 7BraSA7TEJrd0h6Ak90yY I+DJXxGZG9uRerYPqmv41 9WrLwg8syIEZ6 uYJvQVzzFHW7L20gz1R1U SRzDDQqJYB6zMK7cI0seH kugtutM9GgiRWnKtX8UMG 9zQJldM1fuAgj lsxweV8iRmc+G22DNW5VZ UHQAX5FAiw0S7WaUpclaZ I+MS79VFQbLH61cTYgxUT dp4mexXa2OuFx GCPkOQC0tWbtQGzmt6NlR JVxV84wdUSiy8A0KERppG ysxIVyYoKbmSI2wS1cHRf zvoktu1ewswph Ohlsi9psfq56uB31M56gV YzkYDOlFXE7HCZpAYJxjA kgmx1qjT8eUn5+YYjgt2a au0wtqSp5HwHs UWItdyHwrXarRGI9c0UvH s53E8EqhVhun1XkLmz0yq 62jCIld4W4aUT3SDxbCXN xfZ6yQCxkRwO9 BHMhDdAilA94gLSxJGsfY j9naPjztUjzTQ2cHYHjku ffPFQppP4nRFTsgZXanBf tHV4zNCGpblbq a174JbFqWWL6QHLozNCsH 6PpiE8gOcZdWZKpXRVvV2 XybMIpZSfiG386VXzhDrL 2NOZdnlYrQ0Qj CSMbzGyuLjX8c4J0Fq5Zf 5CokakqWRD8JAhuYAN9Zu NsPmUbEhE7Q1QyOpq8GJL baWvdMU0nA4El JGKmpoohdahqwSF7UFKaX CZaiI04wGVhXLoiGe7xc9 H9s215UXRcEJEclI12Uk7 udDogMTBwdCBU tH1nqipdo1gamyqjTnVfS MTqOXq6EYf4WFSrwPbwNu VmDDC9JxP9MIK0xTGudA0 nzMjffucjjQ4v Oyc+N81ucT5wAHF2YMC7b whvDFVgjiKxFS01FW37P1 RyPjwvdGFibGU+PGRpdiB zdRezNZ3qKrLi h9kjv8CoWSoiE9OpEPYiI NohFss8JMMhJVM4zTA5dG 6rLGZxCIknw1U7zOB5F9G ionRkea7gp4ei OEEmAKccV29glQWjx1X6S RDryJZ2XZVpyHtxHgQstV 93Oyc+CXPziCsbz4UoZxg kn3yet9ngzNc5 GrSkNJAfoiYkwDhaSMX3q 3MxYa16F65eGIegGZGiMH MkLJEkTYQyvQkhnf9vvP7 wIi8+PGNvbCB3 jNM6qJ9uVDSkVpL7YTfpS 370WrEziITrItgsu5bzg1 tufIp4IxTdLNXstoAwhTg yQFT1p0LrVi75 U38xAErwFQRfWUIdALTzU AXqsVhzpz5hxB6cSg6+PC 9gv6alzn49rS81kVT+PHR yGHY3bVvuQPyt YLWgsS3nXRsqKvC2RZAoZ sWcmN23ySEgXGxlZi0nlB cswBdyLK7zLMJhvswmx79 8YdVez0pfCCJj oMOsXEdiEET9B42ms8C8F BJhEOVjXIG1dLD8nC3vcO lnbjogbGVmdDsgdmVydGl wEVmnDMgyM973 IHRvcDsnPlBhdGllbnQgT sAxQVk0H2XdWyp6LVNtyA ulXT4phAJlYGcvQy7urRe npEfsZQ5eOAGb nurjl072QvZqb2suEMLbf UHkPIwbQEV1Q49xk9K7GP AwBIKnTAE4qIW3cC8svUn nbjogbGVmdDsg huScxKhlVAxdITesF484W HRvcDsnPkJpcnRoIERhdG M7QV67CN61rCVyx3Q3cTD 5W3KeSRTsebiz ymaodNZ6CNDhOMEflX33Q x6nvTimKr1zOGNtTYC8UH ZouCLnY8BelA1vVbDsABI cZVNlN6NzaHWq AStjW869ERryLzM2JQJms lQvY8QgBUXatVqoQwO4z1 A8Fy6FM5G5XL68KO05dJI ey4B6dTR4C4Jr IMWifnqcvewudVJ8UJXyR KNtrQ84Dj2kgEqtAh0eNW OeFNJ3CRCqnNSuS7SdsM5 yOiAjMDAwMDAw G0WxdIRwJEjjU796JMpaS oA6CWJixlNzX7OqMZGbmW oiWkW9i8H8Ay6AZEe9ZN5 9BA70sAJwh4R2 xYG0F8QtFVTxneeosvwrs CT1JXJyYPAfcL15Zq2wkM nwLk6rIMQmOBS1BEYhaCZ iS2JrvM5vJuOy HONvBKHnI3DsoDFfBWpfN 543HWebNtW6ULHhpxAcX4 XtIMNdiIcbPpZ2f8S4Rp9 ZOIKsZY67GYN7 bZR0AN35NB66I8NdUofgu GFibGU+PHRhYmxlIHdpZH RoPScxMDAlJyBzdHlsZT0 zOp6jAUGoNMTg pBscuVNmQcZhl3hmPOMtH YlwTV5naJnhJ9WqqRN6MH Grq8s7Qp92S79mW1XfyLO +SSKuwAR3vOX0 kR2wBqElIkF0MEyiO708V jWkaLNaVtatz8sfy8lcqJ o0MxD5FWAqekTgyOcnUKB 7z9DkDz36H92o IHdpZHRoPSIxNSUiIHZhb Qvkqr8ttQ3cCb5+PGNvbC P2rKO5eP4lRcAkZkF2UIb sA865LtFunNDb Sridc9lgu4jwmJv1GkIyG ENnxiKywNjcBPC7c9MjGj 66H7RksJqay0PhBrn6zv9 8sWVag5G0iQQ1 W2LoCUDjbimctALhvOrxF J3sVNTugopqOHLjrX0gMN QlR0h2UnMvBmM1GPtkH5R ebaY9YTVklQQn WTuyKGP6Y15gg6M8NSDtQ TPnLFO1bCV1fN6ntCpgpa ogbGVmdDsgdmVydGljYWw iFVmfS179EJPy mXqoUMUcbL8pXJQxdBCve AerJN3bOHXgaudtMlOXXS 6FSUXuXEnXRVHYHVM6L3Q fWjh4OHQawOab AR4nnJWaJMxmXo4afTqxp VdbCX0aZFTmwobgQFZxpG 8pVYOfeQPzoKacEA3kPXX xdayjl252XoLt CYY9XXQizQZqN7WbeB8pD kLzQMCnXYVeM2OttPQzLS iyO325LJkiAmW2EIFdfoY sO6ApLLQaiQrs InQ4d9Y9Sz6sHU9rWE1yD VUyFC06OG70oSYta8E0hY W6Y4TrQHBclxubqawfbKV 6ZKOyDMJghK70 dDUoKWdaWm2ub0R1f496H EEoPPSlpB66Yh7gzQezDP NgaXOZlM3nzsaiy4ptqcx gIzAwMDAwMDt0 GVr0KUPukMjsXcXpUGM9D bI5LUP9dOZlhU3liPytbf xdvA1tTxs+NTkgWWVhcnM 8R9GoVcb7RMUn kBfnSF3jvZWgROcdEj1il BnooNxjCL6xVEAdidatGR AerI9nLZYucVGgxGtzON4 fAYMzjbkbd183 WsWoRVE1YFJdxGHzJ8Cdx H3iOlBsDXEaTRMwC6UeyZ RgWKhaS295JFnmIzI7QJM evtDtL4ViIDTg hTsfJwZ7v5N3Yh1TAE1au LP4J5CtTfd4IWMgmLvrHB 9qoBFiZLqwSz4auEuorAu fCS1oJZOtargx LAPpeC3rAAAtuCZgzWleB T9wOSZbktvvn443NqQcAV Z5AFWrtWQoG2BgnO1bFxJ dTPNyNVMyA9Yx lROkXIhbF212JAclXtT0V NXcpqXuU6NnFJBqxNbnIz D0c3V9Mu4RfSTdPXQcOP7 5CF73OT70J0Nw PjwvdGFibGU+PHRhYmxlI HdpZHRoPScxMDAlJyBzdH zxOL3uSu7fCFZrUUNtzNu yyGKfEaOcu1ei VMPjGRwtGE5wfVgsP5Xmc XZ4YYRww6f5Wr59S49fI4 JvdXA+SZPyfNE1eGY1lW4 eJxRkPoP2RMrs A213GgOsnQSnUxqhc1epx 4xhkOw3KzPxPTPqjjWwiT zeUSM6z2IsUr20W79lCUa pZHRoPSIyMCUi FDIsvJjhgb2hbE4eRt0+P MEneRU9rSC6lB1eZpDpEj G4VCifJ193VsMgwBBlApu xV40pO0BwlRM+ GAWeFde9XVEsvAebMZ3en GMsWIbrNl9nNXT3CkNfJp TtNJftW4HuGKKoazxondn hfJT7LDLeIIKo vI27Xf5ajHpcYh7aVPIsZ OZ9ABWxrJOoU3ZygG0kXn EdNHKrUIXmU2UazDSpBIl uH771CPioAeI8 XTXbmyNuM6LpEQBhnQuhS nZ3d7R9Ll7MuMlvhNSyNJ 1wHjHqCXw5I6UuPjl9LYF btKkbXT8mzJJg LQkqEt3xuYnrwFgbQF7gF CDkflxgc917VjNgq1ilXC GwmPKsICcmXFI4L10sc8Y 2SZFtEJFoFSM6 vUO1tW0ueLcszwivhVTyy DsgdmVydGljYWwtYWxpZ2 54EEYjnVbtMhEJAqa6S6R dWgr9MOFguYcm YS1zgJLoATcxEm7xhHvuc MisGH3jECNwnejon039Et Hdm1dkOTBqoGIoVHaaAIL 5Q06mi4Q0LDLl WHKfIVX0vRE9oZ0baQzmi jogbGVmdDsgdmVydGljYW daYSzmS869YNXgcUbhKs0 EHbs7C6WtGeo6 APXmoDudOK7ykQAdSCyfJ f6dzHmtlWpmRZ3eNCOpez aug811KvUoq4kuAQWwsQI cXAedNWS7F18j t3P0LFWaEZBhOHY4tZI8c I9ytQayprbuyQXasFwmft CgrGoxWQvqYMefU872EBJ vcDsnPlBheWVy OjwvdGQ+RN93fj78E2XsA kqtBkp9QFSmCNO3pHK3bZ 0eFGBlGFlwb2L0mMT9T5P orbTccy4xb4sb YXBz (more content not included)... Normal [facility] XR Spine Cervical 2 or 3 Vie [...] M.D. Transcribed by: CAITY Technologist: MARY BETH [facility] Consent for Treatmenton 12-04 Consent for Treatment [id number]# 1.00CD:127 [facility] Consent for Treatment [id number]#1 .00CD:127 [facility] Consultation Noteon 12-21-19 Consultation Note Patient: [...] has, # 60 tab(s), Refills(s) 0, Pharmacy: [facility]/pharmacy #[id number], 166.8, cm, 10/11/21 14:46:00 EST, Height/Length [...] Oral, Daily, Prophylaxis fluticasone 0.05 mg/inh Nasal [place]: 1 spray(s), Nasal, Daily, Refill(s) 0, Allergy [...] list: All Problems Palpitations / SNOMED CT 819708909 / Confirmed 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 Hypertension / SNOMED CT 1057073574 / Confirmed Anxiety / SNOMED CT 50712807 / Confirmed Lumbar disc disease / SNOMED CT 3901374825 / Confirmed Lumbar radiculopathy / SNOMED CT 444037924 / Confirmed Chronic gastritis / SNOMED CT 82676831 / Confirmed Migraines / SNOMED CT 25183733 / Confirmed Insomnia / SNOMED CT 847619112 / Confirmed Colon polyp / SNOMED CT 080941306 / Confirmed Chronic leg pain / SNOMED CT 888210146 / Confirmed Laxative abuse / SNOMED CT 990083566 / Confirmed Chronic cluster headache / SNOMED CT 290571654 / Confirmed Vitamin D deficiency / SNOMED CT 14767366 / Confirmed Hyperlipemia / SNOMED CT 01197158 / Confirmed Osteoporosis / SNOMED CT 111455712 / Confirmed 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 Normal [facility] Comment on above: Result Comment: Elec tronically Signed By: Sophy Rush PA-C\.br\Date and Time Signed: 12/20/21 12:48 EDT\.br\Electronically Co-Signed By: Derick Meza MD\.br\Date and Time Co-Signed: 12/27/21 07:59 EDT Office/Clinic Note-Physician on 12-20-2021 Office/Clinic Note-Physician [id number]# 1.00CD:127 [facility] Orders Officeon 12-20-2021 Orders Office [id number]# 1.00CD:127 [facility] Physician Orderon 12-20-2021 Physician Order [id number]#1 .00CD:127 [facility] Coding Summary.on 11-09-2021 Coding Summary. CD:026929LL:1506315L G h0bWw+PGhlYWQ+NV4HJOF cJ63rcGOkkU1JG1wWDO0R FBWPLFIZKH5RKY7ilTS1T BgdD9MwqyNz LsozrCNpSJ33RNf3SPC4w ZwgKGubwG6kvRCvQ2b6Zh SjTT15aA58KFeoYHNgXsU 3LjZpbjsgbWFy E5nfDmPrpFEsCae+PHRhY mxlIHdpZHRoPScxMDAlJy XdzByhLR7xUz7bBXHcWGV vbGxhcHNlOiBj p7nwLTDoROrnRL0efFsoB 1TfzFF4ADSax2x1Sh05wY I+OLVpDZB1uSvmOMjbv63 4FvVxi2nrFIT1 rGPzEMsaDTT0T28kk1K0Q DLaGDJhKYC1rYE4tS4orT rchzzdH6GpxLLuBxS4PFP 7lXDsbE4aiKny ripcxJ1bGrp+O58DVX7BI AVUHD1GDff3W2MeLnlycE I+RZ28TLQcBZ11iIQkmGF yj7xuzNc2ZoFo GDDfDED3nBihWFqdl5KlD TJyY36xdKWdk0E4OKOztP hdnOHnEqActGL4fV5tZZx nocqjn7yrmnwg Xrzaj1vjvo03gC89W78kB PonPYCdXOL3PFDdAHJepC eyvf1kuX9rWm2+OWcqy5f bj2mpxZs2BrUq YRZzmjOzdFqnIRB5b1HbC i65X8XnvSfkh2BfEtu7gr 47aOOkc7R6gIJ6MOobKVT euK5nWRkkDpP3 WZLtLiMmnL88iZUfIMscM b9ftWdvpCfqDY5dLNLszk wvSZPtkY5uCFItwOAkqHy pIE5zWQMarzqx c990AeImSSX2MIUaaMTgE 2IwgY3wPkFcFRWwLXIaG3 DasSIzLMeoP375XPjvUyV 6SRJorfInU8En OYZxoMbzYjL1s8F2Zh8Mq 1AmcznnARO5MNzzJZQ5Sl W2WnSnYhP1E0MpYqg7GKP cnZqbQR5vD7Eg IQJsuqpvmmqmoMY0IUOhG TIkeR15vWFqJSrxLl9vg2 J6w878BTXoSTEvqE05Ul2 udDogMTBwdCBU dU5wsvyrs0ukxngvWwFcZ PAiSTd0RLr0VRPlfJpqQr CvBJN9FoE5NJJ2pOEzsK3 lnTxwfobzvO7w Oyc+E37pxU8qPDS3QTN9h mytNKCzkuQwEI41SB11O9 RyPjwvdGFibGU+PGRpdiB ffCqgEA0nMmCw g6ktb3YcBNmoN1RfBQSvN VryWhe5NZOeHOX9vPH8pN 3sRFNwTGuem9L8qUB4T9Q dyeVaau4rn6rv KGNpPLbyH60qfMDip4D1S PDzhRO6UDYesGewWgFsmS 93Oyc+ZXMghAnfa2XqZxw lu9zuq9fsiKu2 OpQrUYMkwxYpiXbnHQR6r 3FwEz94A53hTVxgVNIlIX MhKLNmXZWszPhxbc0tnF8 wIi8+PGNvbCB3 hFY7hU4yMFTyBlN5PRxrF 648KnYknCTlEwope1ztp9 wsuDn2RjTiNBZwywAlhCt nAQO2f8RkCf79 D20kAYnsKMNgXFKmUTXbO CCxdZjbhk4ktP5xEn2+PC 2vh5whnh42hV70uUK+PHR fJIE8gUbqJPtw ECMokT7qLNwrPtO3XAFjH mWwvU83yOAyKTsdVl1lqE nvsPetSK8dYJZuxtjkh39 1CeYbw6iaGYWc vVXtIUguPHL9B92jm8D5E IEgLEVfFFY2cZC3kH5sgZ lnbjogbGVmdDsgdmVydGl xNCgjJShvK714 IHRvcDsnPlBhdGllbnQgT eXvJDh2B8TbHoy7TWKzwA stAK8reZPmCUcuEq1boLm dtWjkMZ4yYVHg brvwc705FeXlf4gpXRVmw KHtOKctAMJ8T13sx2J3XW PnOIVcBQJ9eZN7cQ7htKu nbjogbGVmdDsg wlXbvDhsGXcaTPqjJ840X HRvcDsnPkJpcnRoIERhdG N3NL29HL45jOGaz9N3xDL 4T7RwAEYzbjbg davowTU5NULlLXFmcT37K s4aeGjbYz1wVXEbWNU1BA QfnIDnE3NvsM7tObLcDBN mJXBpH0DwaSUb JUltN292TFsjHrI6SKIlt dUkR1NmIBIiwTyfMiZ9u0 A1Bu8VZ9F1OI31MP30zAV vj9O9xWH1K7Tp EKUwztyuxyvxqCF0WTZjS HJyfP39Kv6ukUesGt9cEV ZuJKD0KMJdhJNbQ5PjxI1 yOiAjMDAwMDAw G8FbkNLrWWbbK126TOczY oR1XPKsdjSuZ6ZvYCNzuH xnPbK7z9C6Ps2LWUy3ZK6 8AM08lJUgh5V4 nLU9V3EbXLLmlkxsnqops YD4ZNNjWDGbcD14Og3uiX itJc2zEQIkHID6UXOxaYF cF4XksP6sEjWs CDWlMOEiU8WbkQVmGItxY 438WTntLoJ7BDUpwpLfZ6 EtQIRvpVqxIiN2n2A8Tu2 NUIYbZW00NYG7 hCT4IB99ND01G0OuSfsxl GFibGU+PHRhYmxlIHdpZH RoPScxMDAlJyBzdHlsZT0 pGm8kWFEsEFXm aTuveJFcFsEor9hxACNlL MnqSC8aeJeiW1CkfFG4DL Cus1b6Gw52Q58sN0LffIU +PVEghPT7rCX7 zM9pFuPpCmQ1LNuxM510E ePtlGEjQrbne1ixf5btsR f5QkH8JAKiufFtvFxbDJK 7v8SxIq66A63s IHdpZHRoPSIxNSUiIHZhb Ljlis0fvO3jLs4+PGNvbC W7fJE4eP2iFiTxEmU1LXv nX557SxQqdLGw Yinlx4mxx8efuLy6UoCeS JVegaOquEdtQXW4r5HkVq 38N4FzhGzxr3AmNnu3ee9 2cQLjx6A9eZP9 A1ZcAFRnjufjrRXfjFjyW M7qHABewswlRBSovO0zJP CtX5p0RbDqNpI1GEfzV3P umbE2SFCaaRWt TGjxLSK1M35id6H6PYRgL RWzUFH2ePL5uT2ujIdgvz ogbGVmdDsgdmVydGljYWw zEOhzD385RVOt aMgrBATyjE8eDLIlfWLha FdxEM7jRCHnqhdbRlGKDC 5DKTEnHYhMUGYVRVQ1N5X eUky4XPRtmVsx RQ2qlQMpBZvdWn6mvErsd FanRT0uPNXznuipDTXukL 7hNPMeyBCdmYgrMO8uVQW gqoram523YeFr ICU8UATirTVtS7DnuU2fR aIdCHNdCHVoE4YaiALqPJ gcW827GIjdXvY0KODwfrB mF7PhBOScrTdj JbY2w4R9Ry9aEE8qCP8gM OZbSH30BE56tKGqn2X6mY O4X8DwZAPqknmrbvxffMV 5ZSKsIQCfkV21 fLAcSOlfUc0zz2H9t106I NGrZVAbhH88Dv1naZyaBB UgcXYJtA5vikurn1rrteh gIzAwMDAwMDt0 TUt2HMKmhOfbLsTxWBE6R bU0FJN8wPKbqX5agMuzyg gtvU2wFaj+NTkgWWVhcnM 6R2KdFiy0YFEt pKsuXI6vnPUgDMfyPo6cb TimzDukDM6rXLRepyvmBV WdaA7oSBJtpILpcCeqJI8 cJLHczvtil949 DhCmAVZ6BTMlbSVhI9Dxd T6mLsIsTHVxFNHsM3RiyC FaZUvcD886GWcgIlF4KLK jafYfG7YfTFZi fHmuAvF6p4E7Zz7HRH0qc CG3L6SdXvt4SYSaxZgoFF 8lkDVdZKjfUj1clNrgoFh eAW5pZDPahltw WASidD3jDBWhsMMqyHioX N8vUFBgpvwfj781CrXkTD Z4GRLvcPYnX5NveV8hAcU gVWFkMPDkM5Ef qFJdAOceR633VUvvRoB0R GPbxcFyZ3AyPKLiwElcZh S0m1L3Br1GsEHrIGYnYB3 8ID75NV56R6Xl PjwvdGFibGU+PHRhYmxlI HdpZHRoPScxMDAlJyBzdH giDE8nJk7pYVQdXBYiyNp usAVnVcQsy9va QCPaWMbtUM5piTpfF6Whk VC6NLAeo7x5Ou00O63iJ7 JvdXA+TJUqyML7dCF0gO7 iAaKjKfC8TCjb Z894PgFpeNIqKnrwt7pcc 1wgbGt5AkDaNJAyhcKizU rdTZH1a6UzNt77V39cLCu pZHRoPSIyMCUi HEAlaUeqrg6fcZ4pSe6+P ZCtgSH1tQY5eD8dXhYbNb A0GJuzD302DzZliNUxAbr mL91cP8MpmSV+ EEExJux1JIPbuGwnOI2if TFjNJzzEt6hNFV7QwMxGj ZjPTlhO7QoITJujqorieq gwUC3BFDfBGSu tH16By2jsLmhXw9wSTOaL LZ5QCCgmBAnG1OqmT2aUn ChEVYiYLRmU8YgwOUvPFs qL395UOnkHuO3 BDXumzFbP8NsASRveHcwY uY4d7X7Ff3NqBemaHQgTJ 5rFkCrMRy6E8HkMba4XZI ojNksYN6ilIXa MUaeHu8moTmmaJxsUU6mS OUvrmgzb607NxOsh5ljGF SwyWYrCBxzDKT9X45uc3V 3IPNhMYXhIQX4 hKF7iN6heHlynnbwdNHtz DsgdmVydGljYWwtYWxpZ2 84CGVxsAumNfGRSll4V4T pKts8XCSrmWjb QK6cpLExPEuaLj2ucViou LpmUL2sCSIogceys479Br Uvq5mxTYWihTCuWKndWDV 2M67nz3T3CNLv OHOgSPP4qXC5hA1obQihu jogbGVmdDsgdmVydGljYW dbOYepG483RFCteXxzGp9 KPsf9O5VnAjx0 IVWouGxnFE9tkPBdDHbnM y6imClmyZbwOM1pTUXskh hro186WiCga7cuYDQraTH vSZdkGGY1Z00l p3P6ILNnCUXuFHG4nZO4m U8clAzxyrtqvORcyXgnqq YtgIwyXJteABwtA076SUY vcDsnPlBheWVy OjwvdGQ+CE80zk21Z8OyE ffgYlt7CFBoJOZ9yFA5kW 0dNOXnAOmhz4V6fST7O9O ydtPvwx9qa9vp YXBz (more content not included)... Normal [facility] Coding Summary. CD:[id number]:[id number] G h0bWw+PGhlYWQ+IF9GBTG rY04nsRUfnD1RS9gIFO1C VKPFZDSAVF0RMM6huXN9X VijW8HfyaHn AeiieDPwOE19TOq1IGD6n SlhOTuocX2pqFUvS9y5Ul RlOV32sO67QErhMYUhQoB 3LjZpbjsgbWFy U9eoRyHzlIEaIue+PHRhY mxlIHdpZHRoPScxMDAlJy YccQepGK2vDb9tHFUbKIP vbGxhcHNlOiBj w6ppWFXzTSizXP1ebQwsJ 8OnmVO4YUWdr0s7Lx67rI I+JDWyQGD3xDfqWHxul83 8PpWfe6seHSS1 xCStCTebKMA6M49ek0Q5H JLvCEJgBVA2gQH0qB8knZ jlpabdV4DkpTUxMrE0TKV 8pMIhrZ8hkFqc lghvrQ7eKqw+C10NCB3AN MFVLQ5XCgg2P1GnHsfdfG I+RB23NBKzSL72fNKbdXM rz7wimVf9CbCj RQKtMBK4jYrjMWykj2DjL CImI17zcSHkx9V2JMGeaW skkKKtCjFvoFQ7wI3nXVr sjmnuu1bqmgzo Akfzh8dnts56qO01E75vR GnqFWUaCCY7NIYdEPWnzL ghxm2fhQ1aKr1+MIffa5e ar9ewwTn2QnPf FGNzerRscFxmYBU0g2TqE i62P6BqgMkqq2IoJbr5jd 01pSIdr8Q1nKW5ORgtXPL veY6iOVujQrD2 OMYsAiVygI41cMUhTVneK d4szVfsvXhrVU1kMSZlhf yrXQMpmB8iPZUlnDCefOv bHC1dTTYkqiel d319CtGcXOM2FSJtqHGxC 0JtkR6xCbGjWWXeJHBlB6 QumWMdASpiM401ILumOeQ 7XODbmsByQ4Ab KHEehVqgCrI5j4T7Ig7Fn 1VxoiepDZG0BJsrCFU1Pe P3WzTfNzW5D2JoPzn4MKZ eeAzwUO1bH3Nn BRJhbxworyqsvVH1TQAdZ QTxoW35hTUvVMjdMl2lx0 S5r701NKSnWJBvoO24Nh3 udDogMTBwdCBU cB5eucdsn0fayekvFxYkG ANpSJy9AGl1OVPkpAeiAa OrCBQ8LvF0BMV2kUJbvP4 boRjtwqczeH3x Oyc+X93bfS9cQVZ6EHP2a qejPPJnbbXeOZ74RR49P4 RyPjwvdGFibGU+PGRpdiB woXnqXM2aRrMd j7ixy3FpROwcN2OkVYRtN FcfAxq6ZJRpCXE3jXL8bP 6dHURlNEoyo8Z1rLN6L2P smnAljp8ao6zv MCAnOMikW18tfWZnq8C9V IQkkXV5UEYecVarGxNbnE 93Oyc+FWItkIqsq0KwSua tc4ulc7yhtOz9 EgCaQOCwbpEfiRsdGFO9z 0QeXt96M14mCJxiDVZwYM IlSYLsXVXypTgjiz9foR0 wIi8+PGNvbCB3 oMY6pL7oCPBwExO1GKbgO 657MhWwlGXzUswyf5uok6 xflZz2YhVaAUKkevWunLg zKQL9t8IvRd04 V34nREhmVPMiSWLlHXCuJ DWugJemgt7xtV1iZq3+PC 4hc9hiet74qZ70wZC+PHR lUYJ4sAfnNZde DTPbeM2iIQifGlV0ANIxB eEelG85qIZdDDvuNg1hdT ryrGguNR6xBNQgqclua78 2SxEti4ziRCRm zBVuJXnwADV5X65qy1Z4D KJvOFUlITA0eAI2hQ1apV lnbjogbGVmdDsgdmVydGl iRSdgNLuhN164 IHRvcDsnPlBhdGllbnQgT aZtMPq0K2LrKsi5OTGpfI nuZE1khATlVFgqZq0aaXc brWiuPL3fFPPj zcesj241KoRog4flNIVyl OPaZWoqLJC2X72mz1V8QI NeXKXtVIV0fPI4fK8ukEu nbjogbGVmdDsg shKleTwtIAumHKkrR404B HRvcDsnPkJpcnRoIERhdG Y5NL79LY73tMWjg5V4xPK 3S0LeHUKbrson heesfRC3PVEkDRPlxI76C e0pkYebBx8vNHVeFJK4PL EjxBKdE7YskT1wLoWrMDX aICRpY0KmzGFh SCnyZ874CQyzMhL8OCVnm iAvL5XxGCVohTabWjA6y4 M6Id8AH4E9JN51OS38lCR rx8W3wEF5R9Do QZMizvoqjzkzgJZ9KBYiL TSelC89Gv5uxIqjUa4iFF MwDJN7HHCqaJBzW4YndH3 yOiAjMDAwMDAw M2BfeYJjWGxvR380BXmtM jU8EPFbbnUaI1KpVXMskP rxQvL3o0I9Uv4YSTn3RZ5 5ZY54uIXfh8S0 dBK7U1YfNQBrgeestsgjq QY0KANbWROxlQ66Yp3eqA ccHv1sNFRtOEI0ONXnbQR mM0DqtV9dMyMl HQVuDLBkO2EeiMWuTPcqG 815VOspBuK8OXRdjeSrK7 ZzWTRzwWxhNeK3s8H7Ph6 ECEZcQS31NZV6 bGO7JJ63OQ85U2EnPpyld GFibGU+PHRhYmxlIHdpZH RoPScxMDAlJyBzdHlsZT0 iXo0eVOZmOSId gKytiPWdOrLiq3xuOOQkE LciMA5tbNakL9GpnZD0WM Opf0m1Dw23B88mV5RhrCW +MHKgvGB9iUM2 xO5bLoEpVtV7EKayT950L cSfeIOvVvhai8hlf5xxyE q7QkJ8NVOmhjFjuUlkFKC 7k7YwGi13A16z IHdpZHRoPSIxNSUiIHZhb Cxlns8rqR2dFn3+PGNvbC G9kXD3wE2uVjGeCsU7KBp yT960YfNbhEFn Rxwvq3guc6bniEt9OvBbN KCavjSghCsnDLN7n6IyUp 61T1SumAbdw9LbPuc5sx6 0wNZwu1P9fWH3 T6MuSPUcapyrlYAkxKhaM W3yGUXhcpopISDlyE1rAH VrJ9b5QgHcDbT4QMhoC4W nxsL6RVGcqSRr IYlqKKU2H16if3F0UXKdI LAlNTS8sBQ7sY8joEeuda ogbGVmdDsgdmVydGljYWw zPOjyK816KHXp dUdsTEUzsM1xGIYolUHeg VnoWE5iGHJhozahVlNEBB 3IWJCsPHrIVMZVZPK8O6O mGym6FEDzcMlq LF3qpZHhFGmzMl9bxXcnl LpoMF0wEMXcihuaWUKebH 3mCYVkeEWyyWomEW4wWCC bmbmgp056LtQm CPO8BYSbsQZyW3QvbY8sM aGmTXZwGQRdG7CrrSHiQO bmW171UMdcVeN7HNQrtlX sT5PsJTPvdIou WaT8z1N7Oj6cWZ9oVI1sH RCfKI46MO46iAZbh1P3kO Y0X2OzEWJioedhkkxxxOE 5LSMdUUXreU71 kMMsTSbuPj1gf1Y6w445U AIaVRRbtW47Zm5clHzqGO HvyAQZqU4yqwnmo5ijsee gIzAwMDAwMDt0 LQy6VINudLdaZyScPTS0B zZ2ZUN5cYIhbY5crKjdtm ficL9sOog+NTkgWWVhcnM 3U1VoKvd4AFEx pEwkEL3wgLDiMZxbPg7wz FutyBldKC6iCGNcfhkrFD CqbI3eAUMfpKVfkMmtLQ3 oCHEcrsfnu544 TdCvZQT7LUFvjRRaD9Mrs T8nRzEqYSOwKCJdH2AlcX SuXGtnV907PZajDtV3ALO gszUhM0QuRVHm pScoMeI4r5K8By6ELT3fj UQ0C4NvMbr2XINfdAalDE 7nlLYeYYfaZi1inVmhbWz eVL1iZZJmekma KSJycB1hYRSvsEGbeIqwW P3kPTFjdlkwf189TwNgBL V0QUZrmWKlX3QkmI9wFhR hVJMdRGZqD4Bi cFRvFFajH870DVazMlR8M UBixjXaP9HhOZDdvXnfMd C0j7H2Rq7UqTZfDOKuGB3 0LP95LU98B0Jz PjwvdGFibGU+PHRhYmxlI HdpZHRoPScxMDAlJyBzdH tnTM8wAr1sBBKvKSDsfMn vmAPdLnTtq1gj NBRrCTjpUR3mxIhkV6Ggy PC6MHIdg1g2Vk89L48vQ4 JvdXA+UXOleYW3vCU0fZ0 nSdIpDkE1NYxh C542YbDstCCjLuvwd1frz 7oenKq2RhJlXJUjflYxkA tmMGX8y8VxEs30Q08sOXg pZHRoPSIyMCUi PKDtsLjrac1upG8qNi6+P KKjfUX8mYI9eP7qWjZaTz R2ZSjxL059CvDacZIyMtq nU16vE9AsjPF+ YSMtUwe9EMZztKrzKY9bd XUwCVlsJt5eNJL4OtQnMu YfYYadT5FrOFZvgurvufu zuPC2AKLkBSTb rB30Ho0xhCfoKj2mTZNdD DZ0XTRegYOsC9RvpT0mTo IdGWSkRQIqY2HnhUQtGDr sC500KPcuZfV8 SRQesfTcO2DuWUAahQsnK dH2o6H6Vz1MhQboaJAtCR 3fBcNuVOv2W6HyGkz9HEQ mgFogCZ7qdRJb TEtpPo7bzDvddEixIT6sN QTvdyplp464UiDsx2pvFF JtpWMnLZkjCGL3V87oc6Q 6GBYrJERsOVL8 oZB6zN4lrIkgjjdhqEGcu DsgdmVydGljYWwtYWxpZ2 84VICpbUyoNxTMDtn6A0N eMan5HOWjgPwc AE8yvYKkXIncTh3jdRyhr SpsYD4lNZIhrkxec896Dm Dws6yhTYSplPVvIWxnWAI 0U14nx9P6VQZj CNBfCIT1gBH7zZ6xaTmhg jogbGVmdDsgdmVydGljYW ieZWorH371DTLyzOkzEu5 IEyw6A3UoMkr9 IIHnjQosXI5uqPNfTGsaP s1lqMeejZbqCS2kYSDstv but448LdVsc7vbJRXtiOY vIBuiRFC0X76f y5F1JPReJKYyNSW2oIM9n K7uxHqexcotiIVlhWeklt QihIphLGziFKtnO374JKS vcDsnPlBheWVy OjwvdGQ+WG80sc92X3UvE oclOvi3LILtLNK3pHO3mV 7jXVBrRTizz3V1wME1E1Q oqfRfts2ao0yc YXBz (more content not included)... [facility] Coding Summary.on 11-01-2021 Coding Summary. CD:[id number]:[id number] G h0bWw+PGhlYWQ+NQ6MLHL fW10zpJNtaK2AH4rLSB3Z OXOZRYCTCS7KBJ9mpIH1X YsmI6BbpzGd GukyaGQhNQ21GIt3BRN6b AgfOPiawA6vaYIsR5z9Dk ZtXE23tF80LGkhHJUwJtR 3LjZpbjsgbWFy G5ygGkZdmMWgQwq+PHRhY mxlIHdpZHRoPScxMDAlJy KblGosNI0lSv8eIZEmURV vbGxhcHNlOiBj r9fsKMJrWBvaEG6wxAneN 9RpmQS3PVMcz9p6Rs70gM I+HAOmYCB6oBtzQTlac56 7NuMkw2wjIQK6 bWSpGYbiTGI9M24rb9G3G XDmSJXvBFT0fVY3eS3naW poahjjW6TsoPSmHyC2FUF 8tSRabA7ujGgx ljlmnQ4lFyy+C69XTJ5OK NDDXM9OHth2M9JcSqjshF I+WU98AWTcLH81lZIhmRL cf2fdtQu8KrUo AFAdAHK9qBenSCtiz2EqO EHnJ85zhGZwl8V0KGFogR swdRYwWlHpzXU7zV6kYOb zokpxo6kxyyhj Avmgw4zyqe67nO78G60lR GnrGETfZPS4OORsIANrfD hszp4pnI9qNn8+RReok9q kc9lqpUo5QoLd FHXgqeUzlRerRYT1t8RnT y70I1FjdZxnp4IzVlp7fa 67eRYwb0I6nAJ4PXiqVTW pmR3hSIjbQjQ6 MGMpKvOoyL05tUJfMOpxK w5mrGbnoLqiYJ4uBCWisf pePXKzuV7gQAXaiDQvuIz vPU5rCNOnoawp b842FzWwZMC7VONbqNNcH 3JecF7tGgFbPBJwRSQzI4 SmeGCbJSaaN516DAouCqV 6JPUxasWzQ2Nh NDLdmPwfVkB4n6L0Lh7Dt 3IkapdvKPC7CSncWHLbYt X3RyRjNjW8V4AvYby0JQN ohUlgUW0fK8Ri UXPlxnbldceolTP7ZDZfX KQjdS96fQCsEGisRd3ig7 K9c697RALeNDBhgZ80Ov0 udDogMTBwdCBU mS1ykquha6qncgavUbLlD QJlHZm2SAv2JESfdFwnJu KdHYB7HgD1VOP4pECykX4 auOnukegsoS3i Oyc+H69mmA6nYVI3ZFI5h yjvIQKveoQjSQ60CG72H0 RyPjwvdGFibGU+PGRpdiB nkPpkTG7jVtWj p6lvd2PtQZilW3QyGTBfF NgbWgm6XNAnTHF9gDG3fK 4cZCKzNQigz2K4tMZ4M3Z xeiKmnu7ne4my HYWuCJypO33enAVai2N3G TAyeUL7HOHguPfsVqFucA 93Oyc+SJFpgGvkb8WdCvg nz7jzq7njeUk8 WwUlBSVpooJpvNloZQQ5o 9UbNv04S09oEQcrVMOtBK JmBYYpROAzwLplts6wpQ7 wIi8+PGNvbCB3 jXF2jT4yEIUjZpY3ZNwrF 786FaFsdNCoLjpsl8kez3 gbpVk9MsSyNCJkpuKnbYq kVYB7p6IwRi83 C42oYGekIDQbOBLeLRPtF NAiaTkdbr0jaF0lKu5+PC 3zy8riit99kZ20gVZ+PHR jJGM6nAvhVLvi VXJzwD1rFPllKaA5YBJvS aIhqU46hZHeLEiuFe1tcB dfsLtfMH3nOCMvdvyfj24 6ZrKwp7phKVNf uUYcBPikHCO7L27ux4E9F FOsSXZqXYS7hIE6lY7bwY lnbjogbGVmdDsgdmVydGl yQKexFYqjC815 IHRvcDsnPlBhdGllbnQgT jHhPSf6J4GjQvo2RWUafI ioDB3kpLCmDEziSk9ccQm oiCwrZR6bRRXi dlgqe027GaZss3ijXBWok VAjQDkoVYA1A67cu2V2MH CgVQZoVIA1qXF3nN7kkGr nbjogbGVmdDsg bsCrqQeeNUopMSdlW963A HRvcDsnPkJpcnRoIERhdG F6KP25KL81jMMqy0X6bNY 1Y1CsKEWzzbyw ruikwRV0FWSiZYAolU25X j0qfEwlWx4oXCKhQCW1WI OssFMmY7UotC9uUeRkJSE hYNCfV2VtdUKy WBudT081LPziEhU0UDSjd vMhU8ZzWKYgxPezYpC0x5 M0Fw4AQ4G9IB00CE74hFO eh9T8xLR9G8Nx WJNqwpykxgggxBL2FRUfI OYmjN36Fn5azScrHf0kQU IbRFA7QSPilCLeN0UcnR5 yOiAjMDAwMDAw V6PfzPMmLTylQ351LHzqC hX8LVLnvcFmY9EwDMYvsP qxLfA9r7K3Zg9YNDy6RD2 9RN07zLVhg1Y0 oKF9A9PgONJeoldbkneyt TE6JDZkMTWrlU12Ft4ofN zkOj8dRFDlEYK5YABczJC nP6FxeB2rDiFr ZOAqDMXhR1IszFUqEFnxG 299JVvwKeB9RBXnbzMzF9 BoYLJxzBgyFsX5a7R0Fa3 QRKKjZF41ANI2 xJN8HF93XY24S3QpAssma GFibGU+PHRhYmxlIHdpZH RoPScxMDAlJyBzdHlsZT0 qGz5jEOVnBCDx tTvjuTTpLmRjl5alABFpS MrcET1fzWczR1GzmAJ5WO Ivl2o1Yb53G57oV1NtbTH +LLLnzQF5nAE6 gH4hWpQtJnR6ZBcjB017N nFjsCPcTkhcb7ths7jmbX u8BmE1WGVkifPbvWhmVUH 7q3YlOy95H25s IHdpZHRoPSIxNSUiIHZhb Vylcl8euJ6dFk1+PGNvbC R4qHM9zX7eFxUiAnE0VWa fA747BeObgJWp Qapkd6iyu5vdnUj6OqIsX WCaslWkmInpPZZ3m2ZmCc 51I2XnnSqwp8FpApd9zg6 2rNJkq4H0cSK2 B9VlRHFylstgoWIyfSxsR L5nZAWhsoxpTECrwH4sXM PvF4x5QtVrUnY1XHlvR9L utlY3ALVbqZRj LKzqUOC5G67gg3O3TFNwD CSuLEE5zXZ5iV4ioFanwv ogbGVmdDsgdmVydGljYWw yHSsvZ622SCFi pAieLOKwwR5eGRSogLWzb PyqRG7uIJYlzrkvDmLPJG 3PJIGoPSmAJSPICTH2Y1O bUpp8CMHliGnu XR1lyAReBGdpXy7xjMrna YsoJH3bIJZmmgzvGORyjQ 0cOZEbcTRhrKnjIR8fFTV gwrsnh269JgNw DVZ6JNCdgKNtS9ErtY0eE gEtHREaWAPwH8NvnKWpXW rfO820QXryXqO7WOGbiuM nQ7CqSPHnnPuy YgV0o1H6Sv7qWL2xVT0wE DIwHZ99KQ66gJBzt2G9bQ N6J6AbHQJwgpmqkqfwqJT 9WTUnMYRyhB04 gMAyTBsfYi4ba8Q5f856S LWjBMKpiG78Va0phQiuBX LlsITYxF1utystn9ozrxo gIzAwMDAwMDt0 RIp1WKUmwSjnFyHdKCJ9J sO6WCG0oPCnfP5sjCbutb jslT4lZar+NTkgWWVhcnM 5D0XrWpl2OGDk qAhvKM4kvACsRRywDa8cj DmezWmyZT9vLFRopvkpKY VjwI9cBVAalXMqgRhtHI7 sQAUeaxpbe285 TaViMOX3YISvfZQlS5Lfx E6vCzBuVLNkCHDvL2VxrU YkYQxlH178MPurMiK6GBG izmKsA3HjQGNe hAqbSsX7d5Y9Ve6BEK9fm XI5Y5ZoZgq4IOSvcZfgIO 9chPLfKVfcBg9ruRypvDo gJS1tSIMbwwmn WFRbbY2sIYQhiYDitSbfU Q5fCZWdejqiq655UaNuMG R0IUKctFZvI3FojI2bVsT yLLCePZXzX7Ct iFAlTDoaH615DNrjMrL5T WStcwArV3HpTNRwxMjvNi U0e0C0Mr7VwEWoOQJtTY7 9JO54UH82J2Pe PjwvdGFibGU+PHRhYmxlI HdpZHRoPScxMDAlJyBzdH nbUO2hPk0yGCSnTJYodIc laXNaVtQfh4sq KCEpSLceTO6rqOanJ4Ots CY9QOVhy1s9Yi88H30aK3 JvdXA+DUYegFW7jWM1fX1 zQlAcToH8TKdi F533ZbTruHVtZhiny7ynp 1jdrXe3OqMzCWPbnyNjvL nkKDN8c5BbMm83L03yOBs pZHRoPSIyMCUi YOGmeFaflx7ukS1vGi3+P LVqyWS5uGR9cH2rJdDuWz W8WNlrP114UiFdsMLuNim hW26qZ3QywEM+ UQPhOsp2DUVgmItjNP8rw UGwTPkwSw2nVUJ0GnRjEb IlLYdlN7HoWJTpexpzzpx trEE6ASIgBCDx sC30Ow3byHzgIv8lAZLzE KH2NVNotDIlO1JjaM9bXf ZwVMFvUPBxC4PpqXRwJYx jE662NMqkFjU1 ETJwnxAfM1OjYHVbqKnpW gY6s3O2Qt0OfEtxxCKiRY 3jVrSfTLe0O4PbFmh9UGX noCuqNQ9dtSGo HHbrXa1vgYvphUvwHN6nF IEymkfub822MeXwc3saRU DzpEEzPJtrHPT5D43kl2B 2LQPwVILcUPE0 cIN6yR5yfUdpsamkjWLvl DsgdmVydGljYWwtYWxpZ2 50EZTseCvaLrSSExn5C9X eGon8UGHgrMex AO6pkGDrFEiaUf5dpZwnw SdlYW9kYCBmhegrc497Zd Cmu0zfESMmcZEsMGovJLC 3R15xo1Y2LFAx RTViYRS9jZH6kI8avFtay jogbGVmdDsgdmVydGljYW lxEGjxZ147SYIxrMtwCn5 OLze3S0QiZoz6 SVRkaTleIQ1wkTMnVHclS x5yfAdxuQxzXG5mZSVwrc opv336UmTyi6hdHVCwuKG kIHzsDKX7I13w y2R6IBAfINZkBDL4vOY8p T2rtSdxsvijjQUwqAlser XfuFlcULtmAQqfC416LIC vcDsnPlBheWVy OjwvdGQ+AO54rx10D9QcT gfjIwx9IKSiTGN9bIB4zT 0fEKNhMLatz3T0yCA5X2P qbmWmvm3ld2tb YXBz (more content not included)... Normal [facility] XR Spine Cervical 2 or 3 Vie [...] M.D. Transcribed by: CAITY Technologist: SULY Normal [facility] Consent for Treatmenton 10-05 Consent for Treatment [id number]# 1.00CD:127 Normal [facility] Consent for Treatment [id number]#1 .00CD:127 Normal [facility] Consultation Noteon 11-01-19 Consultation Note Patient: ELISA [...] has, # 60 tab(s), Refills(s) 0, Pharmacy: [facility]/pharmacy #[id number], 166.8, cm, 10/11/21 14:46:00 EST, Height/Length Dosing, [...] Oral, Daily, Prophylaxis fluticasone 0.05 mg/inh Nasal [place]: 1 spray(s), Nasal, Daily, Refill(s) 0, Allergy [...] list: All Problems Palpitations / SNOMED CT 794624646 / Confirmed 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 Hypertension / SNOMED CT 2376103625 / Confirmed Anxiety / SNOMED CT 86296543 / Confirmed Lumbar disc disease / SNOMED CT 8143484851 / Confirmed Lumbar radiculopathy / SNOMED CT 346791147 / Confirmed Chronic gastritis / SNOMED CT 89941427 / Confirmed Migraines / SNOMED CT 00587861 / Confirmed Insomnia / SNOMED CT 325083873 / Confirmed Colon polyp / SNOMED CT 296797350 / Confirmed Chronic leg pain / SNOMED CT 089168147 / Confirmed Laxative abuse / SNOMED CT 309101048 / Confirmed Chronic cluster headache / SNOMED CT 522463200 / Confirmed Vitamin D deficiency / SNOMED CT 11277815 / Confirmed Hyperlipemia / SNOMED CT 11283223 / Confirmed Osteoporosis / SNOMED CT 420388198 / Confirmed 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 Normal [facility] Comment on above: Result Comment: Elec tronically Signed By: Sophy Rush PA-C\.br\Date and Time Signed: 10/31/21 12:26 EDT\.br\Electronically Co-Signed By: Derick Meza MD\.br\Date and Time Co-Signed: 11/01/21 07:42 EDT Office/Clinic Note-Physician on 10-31-2021 Office/Clinic Note-Physician [id number]# 1.00CD:127 Normal [facility] Orders Officeon 10-31-2021 Orders Office [id number]# 1.00CD:127 Normal [facility] Physician Orderon 10-31-2021 Physician Order [id number]# 1.00CD:127 Normal [facility] Orders Officeon 10-28-2021 Orders Office [id number]#1. 00CD:127 [facility] IntraOperative Documentson 0 10-25-2021 IntraOperative Documents [id number]# 1.00CD:127 [facility] Vital Signs Date Time Vital Sign Value Performing Clinician Ruba miller 10-10-2022 13:14-0500 Diastolic blood pressure 68 mm[Hg] Sophy Rush [facility] 10-10-2022 13:14-0500 Heart rate 62 /min Sophy sMedio [facility] 10-10-2022 13:14-0500 Mean blood pressure 90 mm[Hg] Sophy sMedio [facility] 10-10-2022 13:14-0500 Respiratory rate 12 /min Sophy Rush [facility] 10-10-2022 13:14-0500 Systolic blood pressure 135 mm[Hg] Sophy Rush [facility] 08-22-2022 13:06-0500 Diastolic blood pressure 61 mm[Hg] Eddi Arana [facility] 08-22-2022 13:06-0500 Heart rate 65 /min Eddi Sumit [facility] 08-22-2022 13:06-0500 Mean blood pressure 76 mm[Hg] Eddi Sumit [facility] 08-22-2022 13:06-0500 Respiratory rate 16 /min Eddi Sumit [facility] 08-22-2022 13:06-0500 Systolic blood pressure 106 mm[Hg] Eddi Sumit [facility] 07-11-2022 13:57-0500 Diastolic blood pressure 76 mm[Hg] Eddi Sumit [facility] 07-11-2022 13:57-0500 Heart rate 77 /min Eddi Sumit [facility] 07-11-2022 13:57-0500 Mean blood pressure 99 mm[Hg] Eddi Sumit [facility] 07-11-2022 13:57-0500 Respiratory rate 16 /min Eddi Sumit [facility] 07-11-2022 13:57-0500 Systolic blood pressure 146 mm[Hg] Eddi Sumit [facility] 06-20-2022 12:30-0500 Diastolic blood pressure 75 mm[Hg] Sophy sMedio [facility] 06-20-2022 12:30-0500 Heart rate 57 /min Sophy Ruhs [facility] 06-20-2022 12:30-0500 Mean blood pressure 94 mm[Hg] Sophy Rush [facility] 06-20-2022 12:30-0500 Respiratory rate 12 /min Sophy Rush [facility] 06-20-2022 12:30-0500 Systolic blood pressure 133 mm[Hg] Sophy Rush [facility] 03-28-2022 12:43-0400 Diastolic blood pressure 69 mm[Hg] Sophy sMedio [facility] 03-28-2022 12:43-0400 Heart rate 51 /min Sophy Rush [facility] 03-28-2022 12:43-0400 Respiratory rate 18 /min Sophy Rush [facility] 03-28-2022 12:43-0400 Systolic blood pressure 135 mm[Hg] Sophy Rush [facility] 12-20-2021 12:28-0400 Diastolic blood pressure 79 mm[Hg] Sophy Rush [facility] 12-20-2021 12:28-0400 Heart rate 51 /min Sophy Rush [facility] 12-20-2021 12:28-0400 Mean blood pressure 97 mm[Hg] Sophy Rush [facility] 12-20-2021 12:28-0400 Respiratory rate 18 /min Sophy Rush [facility] 12-20-2021 12:28-0400 Systolic blood pressure 134 mm[Hg] Sophy Rush [facility] Encounters Encounter Date Encounter Type Care Provider Facility Start: 09-10-2023 Telephone encounter Tiffani Munson [employer] Work Phone: [facility] Start: 09-05-2023 Telephone encounter Tiffani Munson [employer] Work Phone: [facility] Start: 10-10-2022 End: 10-11-2022 ambulatory Derick Meza [facility] Start: 10-10-2022 End: 10-10-2022 Patient encounter procedure Sophy Rush [facility] Start: 08-30-2022 Encounter for genera l adult medical examination without abnormal findings DR EMI FRIEDMAN . [facility] Start: 08-26-2022 End: 08-27-[address] EMI FRIEDMAN . Facility: Start: 08-26-2022 End: 08-27-2022 Encounter for general adult medical examination without abnormal findings DR EMI FRIEDMAN . Facility: Start: 08-22-2022 End: 08-23-2022 ambulatory Emi Friedman Facility[place] Start: 08-22-2022 End: 08-22-2022 Pain Management Eddi Arana [facility] Start: 08-01-2022 End: 08-02-2022 ambulatory Eddi D Sumit Facility:[facility] Start: 07-11-2022 End: 07-12-2022 ambulatory XXXX NONE Facility:[facility] Start: 07-11-2022 End: 07-11-2022 Pain Management Eddi Arana [facility] Start: 06-27-2022 End: 06-27-[address] YASMINE DAMON . Facility: Start: 06-27-2022 End: 06-28-[address] EMI FRIEDMAN . Facility: Start: 06-20-2022 End: 06-21-2022 ambulatory Derick Meza Facility:[facility] Start: 06-20-2022 End: 06-20-2022 Patient encounter procedure Sophy Rush [facility] Start: 05-04-2022 End: 05-05-2022 ambulatory Sophy Rush Facility[place] Start: 05-04-2022 End: 05-04-2022 Patient encounter procedure Sophy Rush [facility] Start: 04-20-2022 End: 04-21-[address] EMI FRIEDMAN . Facility: Start: 04-04-2022 End: 04-05-[address] EMI FRIEDMAN . Facility: Start: 03-28-2022 End: 03-29-2022 ambulatory Derick Meza Facility:[facility] Start: 03-28-2022 End: 03-29-2022 ambulatory Derick Meza Facility:[facility] Start: 03-28-2022 End: 03-28-2022 Patient encounter procedure Sophy Rush [facility] Start: 12-20-2021 End: 12-21-2021 ambulatory Emi Friedman Facility:[facility] Start: 12-20-2021 End: 12-20-2021 Patient encounter procedure Sophy Rush [facility] Start: 12-08-[address] EMI FRIEDMAN . Facili ty:[facility] Start: 10-31-2021 End: 11-01-2021 ambulatory XXXX NONE Facility:[facility] Procedures Date Procedure Procedure Detail Performing Clinician Start: 08-01-2022 Epidural injection of lumbar spine using fluoroscopic guidance Eddi Arana Comment on above: L5-S1 CHRISTY- 0% relief Start: 10-18-2021 Cervical arthrodesis Sophy sMedio Start: 06-13-2021 Epidural injection of cervical spine using fluoroscopic guidance Sophy sMedio Comment on above: C7/T1 CHRISTY-minimal relief Start: 05-26-2020 Esophagogastroduodenoscopy Sophy [facility] Start: 05-06-2020 Hemorrhoidectomy Sophy Rush Start: 09-04-2017 Colonoscopy Tiffani Munson [employer] Work Phone: Application of pelvic traction Sophy sMedio Comment on above: for 8 weeks in 1988 for left broken pelv ic bone Aspiration of ovarian cyst A phillip sMedio Comment on above: 1987 Bone structure of left navicular Sophy sMedio Comment on above: 2019 removal of pieces of broken bones Deviated nasal septum (disorder) Sophy sMedio Comment on above: 2003 Excision of lesion of skin A phillip sMedio Hysterectomy Sophy sMedio Comment on above: 1993 Injury of right ankle Sophy Rush Comment on above: Dr Fields Ligation of fallopian tube A phillip sMedio Comment on above: 1984 Operation on lymph node Fredy lopes sMedio Reduction mammoplasty Sophy Rush Comment on above: 1989 Structure of left sh oulder region (body structure) Sophy sMedio Comment on above: 1986 Plan of Treatment Date Care Activity Detail Author Start: 08-28-2024 DTaP,Tdap and Td Vaccines (2 - Td or Tdap) DTaP,Tdap and Td Vaccines (2 - Td or Tdap) [facility] Start: 04-06-2023 COVID-19 Vaccine ( season) COVID-19 Vaccine ( season) [facility] Start: 04-06-2023 Influenza vaccination Influenza Vacc ine [facility] Start: 12-21-2022 Adult BMI Screening Adult BMI Screen ing [facility] Start: 12-21-2022 Tobacco Screening Tobacco Screening [facility] Start: 09-04-2022 Screening for malign ant neoplasm of colon Colonoscopy [facility] Start: 1974 Depression Screening Depression Scre ening [facility] Immunizations Immunization Date Immunization Notes Care Provider Catrina michael 05-11-2021 influenza virus vaccine, unspecified formulation Tiffani Munson [employer] Work Phone: [facility] 12-01-2020 SARS-CoV-2 (COVID-19 ) Ad26 vaccine, recombinant Sophy sMedio [facility] 11-10-2020 SARS-CoV-2 (COVID-19 ) Ad26 vaccine, recombinant Sophy Rush [facility] Payers Date Payer Category Payer Medicare [employer] MEDICARE A ETNA MEDICARE PLAN (HMO) [id number] 2023-Present [phone] [address] [place] [address] [id number] 2018 Unknown [id number] 1960 Unknown [id number] 2.16.840.1.782334.3.579.2. 1962 Unknown [id number] 2.16.840.1.474051.3.579.2. 1962 Unknown [id number] 2.16.840.1.949588.3.579.2. 1962 Unknown [id number] 2.16.840.1.574717.3.579.2. 1962 Unknown [id number] 2.16.840.1.217116.3.579.2 1962 Unknown [id number] 2.16.840.1.486135.3.579.2 1962 Unknown [id number] 2.16.840.1.656249.3.579.2. 1962 Unknown [id number] 2.16.840.1.509328.3.579.2. 1962 Unknown [id number] 2.16.840.1.770201.3.579.2. 1962 Unknown [id number] 2.16.840.1.067011.3.579.2. 1962 Unknown [id number] 2.16.840.1.862896.3.579.2. 1962 Unknown [id number] 2.16.840.1.610487.3.579.2. 1962 Unknown [id number] 2.16.840.1.893654.3.579.2. 1962 Unknown [id number] 2.16.840.1.076555.3.579.2.727 1962 Unknown [id number] 2.16.840.1.729539.3.579.2.727 1962 Unknown [id number] 2.16.840.1.660827.3.579.2.593 1962 Unknown [id number] 2.16.840.1.018617.3.579.2.593 1962 Unknown [id number] 2.16.840.1.604294.3.579.2.593 1962 Unknown [id number] 2.16.840.1.138612.3.579.2.593 1962 Unknown [id number] 2.16.840.1.904407.3.579.2.593 1962 Unknown [id number] 2.16.840.1.776102.3.579.2.593 1959 Self-pay Social History Date Type Detail Facility Start: 06-28-2021 End: 12-21-2021 Tobacco smoking status Ex-smoker (finding) [facility] Tobacco smoking status Never [facility] Start: 09-16-2020 End: 12-21-2021 Sex Assigned At Female [facility] History of tobacco use Current smoker [facility] History of tobacco use Cigarette Smoker P [facility] Start: 09-16-2020 End: 12-21-2021 Cigarettes smoked current (pack per day) - Reported 1 [facility] Start: 12-21-2021 Tobacco use and exposure Smokeless tobacco non-user [facility] Start: 12-21-2021 Alcohol intake Current drinke r of alcohol (finding) [facility] Start: 08-22-2017 Tobacco Comment QUIT 9 YEARS AGO [facility] Start: 08-22-2017 Alcohol Comment SOCIAL/BEER [facility] Start: 1960 Sex Assigned At Not on file P [facility] Medical Equipment Procedure Code Equipment Code Equipment [...] 10-18-2021 CERVICAL ANTERIO R DISCECTOMY W/ FUSION, Derrikc MURILLO, Derick A 10/18/21 Unknown Neck FDA [...] Assessment Result Facility 10-10-2022 Functional Status N/A [facility] 08-22-2022 Functional Status N/A [facility] 07-11-2022 Functional Status N/A [facility] 06-20-2022 Functional Status N/A [facility] 03-28-2022 Functional Status N/A [facility] Clinical Notes 10-31-2021 to 09-10-2023 Telephone [...] for a repeat until 2027. Spoke to [facility]'s nurse and she states that Elisa is aware of this also and to please disregard the referral. documented in this encounter [facility] 09-10-2023 Telephone encount er Note Called Ramandeep Mary/Dr. Friedman's office as we received a screening colonoscopy referral for Elisa, but she had a colonoscopy in 2017 and not due for a repeat until 2027. Spoke to [facility]'s nurse and she states that Elisa is aware of this also and to please disregard the referral. [facility] 09-05-2023 Miscellaneous Notes Formattin g of this note might be different from the original. Called Dr Friedman's office as we received a screening colonoscopy referral for Elisa, but she had a colonoscopy on 09/04/2017 and is not due for 10 years. They are to let Dr. Friedman know. documented in this encounter [facility] 09-05-2023 Telephone encount er Note Called Dr Friedman's office as we received a screening colonoscopy referral for Elisa, but she had a colonoscopy on 09/04/2017 and is not due for 10 years. They are to let Dr. Friedman know. [facility] 10-10-2022 Evaluation + Plan note Extrac [...] will follow-up with Dr. Derick [facility]za [facility]. She has this information. Future Scheduled Tests Radiology* XR Spine Cervical 2 or 3 Views 10/31/21 [facility]01-17-2023 Evaluation + Plan noteExtracted from: [...] Spine Cervical 2 or 3 Views 10/31/21 [facility]12-27-2022 Note [id number]:127[facility] 07-11-2022 Evaluation + Plan noteExtracted from: Title:FUV [...] Spine Cervical 2 or 3 Views 10/31/21 [facility]11-15-2022 Evaluation + Plan noteExtracted from: [...] Spine Cervical 2 or 3 Views 10/31/21 [facility]08-23-2022 Evaluation + Plan noteExtracted from: [...] Spine Cervical 2 or 3 Views 10/31/21 [facility]05-17-2022 Evaluation + Plan noteExtracted from: [...] 12:30:00 PM Scheduled Provider:Sophy Rush PA-C Location:[place] Appointment Type:Pain Management - Follow Up ([place]) Future Scheduled Tests Radiology* XR Spine Cervical 2 or 3 Views 10/31/21 [facility]03-28-2022 Evaluation + Plan note Future Scheduled Tests Radiology* XR Spine Cervical 2 or 3 Views [facility]ments Appointment Date:03/28/2022 12:30:00 PM Scheduled Provider:Sophy Rush PA-C Location:[facility] Appointment Type:Pain Management - Follow Up ([place]) Future Scheduled Tests Radiology* XR Spine Cervical 2 or 3 Views [facility] Appointment Date:04/25/2022 11:00:00 AM Scheduled Provider:Sophy Rush PA-C [facility] Appointment Type:Spine - Follow Up ([place]) Future Scheduled Tests Radiology* XR Spine Cervical 2 or 3 Views [facility]31[facility]ments Appointment Date:05/23/2022 11:30:00 AM Scheduled Provider:Sophy Rush PA-C Location:[facility] Appointment Type:Spine - Follow Up ([place]) Future Scheduled Tests Radiology* XR Spine Cervical 2 or 3 Views 10[facility]31/[facility] N[facility] No data available for this section [facility] Dis[facility] instructions No data available for this section [facility] CenterInstructionsNot on filedocumented in this encounter [facility] No data available for this section [facility] Summary Purpose Family History No Family History Records FoundNo Family History Records Found Advance Directives No Advanced Directives Records FoundNo Advanced Directives Records Found Additional Source Comments Care Team (unrecognized sect ion and content) Livestock Caretaker Relationship Specialty Start Date End Date Emi Friedman MD [address] [phone] PCP - General 08/15/17 INFORMATION SOURCE (unrecogn ized section and content) DATE CREATED AUTHOR 10/23/2022 [facility] DATE CREATED AUTHOR AUTHOR'S ORGANIZ ATION 11/28/2022 [facility] FOR RECORDS PERTAINING TO PATIENTS WHO [...] BE BASED ON THE PRIMARY CLINICAL RECORDS. [facility] [employer] [facility]. provides no warranty or guarantee of the accuracy or completeness of information in this document.
[2024-09-08 10:06] LABS: Basophils Absolute Auto 0.1 10^3/uL (0.0-0.1); Eosinophils Absolute Auto 0.1 10^3/uL (0.0-0.7); Eosinophils Percent Auto 1.8 % (0.9-7.0); Hematocrit 40.6 % (36.0-48.0); Hemoglobin 13.4 g/dL (12.0-16.0); Immature Granulocytes Abs Auto 0.02 10^3/uL (0.00-0.03); Immature Granulocytes Pct Auto 0.3 % (0.0-0.5); Lymphocytes Absolute Auto 2.2 10^3/uL (1.2-3.8); Lymphocytes Percent Auto 36.7 % (20.5-60.0); Mean Corpuscular Hemoglobin 33.7 pg (26.7-34.0); Mean Platelet Volume 9.1 fL (9.5-13.5); Monocytes Absolute Auto 0.6 10^3/uL (0.3-0.8); Monocytes Percent Auto 9.1 % (1.7-12.0); Neutrophils Absolute Auto 3.1 10^3/uL (1.4-6.5); Neutrophils Percent Auto 51.1 % (43.0-75.0); Platelet Count 318 10^3/uL (150-450); Red Blood Count 3.98 10^6/uL (4.20-5.40); Red Cell Distribution Width 12.5 % (11.0-15.0); White Blood Count 6.1 10^3/uL (4.0-11.0)
--- NOTE | 2024-09-08 10:07 | MM_ITS ---
Patient Name: ELISA GOMES MR#: [id number] : 1960 Exam Date: 09/08/2024 Ordering Doctor: DR Meir Friedman . RADIOLOGY REPORT PROCEDURE: MM TOMOSYNTHESIS SCREENING BI COMPARISON: MM TOMOSYNTHESIS SCREENING BI, 07/02/2023. MG MAMM SCREEN 3D DECLAN CAD, 06/27/2022. MG MAMM SCREEN 3D DECLAN CAD, 05/19/2021. MG MAMM SCREEN DECLAN W CAD, 06/17/2016. INDICATIONS: Screening Calculator Name NCI Breast Cancer Risk Assessment Tool 5 Year Breast Cancer Risk 1.60% Lifetime Breast Cancer Risk 7.30% Personal Breast Cancer No Personal Ovarian Cancer No Treatments None Family Cancers None LOCATION: [facility] BREAST COMPOSITION: The breasts are almost entirely fatty. FINDINGS: DIAGNOSTIC CATEGORY 2--BENIGN FINDING: RIGHT BREAST: No significant suspicious finding. Scattered benign-appearing calcifications are present. No significant change has occurred. LEFT BREAST: No significant suspicious finding. Scattered benign-appearing calcifications are present. No significant change has occurred. RECOMMENDATIONS: ROUTINE MAMMOGRAM AND CLINICAL EVALUATION IN 12 MONTHS. PLEASE NOTE: A NORMAL MAMMOGRAM DOES NOT EXCLUDE THE POSSIBILITY OF BREAST CANCER. A CLINICALLY SUSPICIOUS PALPABLE LUMP SHOULD BE BIOPSIED. Dictated by: Franco Tompkins M.D. on 09/09/2024 at 16:07 Approved by: Franco Tompkins M.D. on 09/09/2024 at 16:15
--- NOTE | 2024-09-08 10:08 | XR_ITS ---
[address] [address] Patient Name: ELISA GOMES MRN: [id number] date: 1960 Sex: F Assigned Patient Location: [facility] Current Patient Location: Accession/Order Number: [id number] Exam Date: 09/08/2024 10:15 Report Date: 09/09/2024 09:24 At the request of: EMI KENYON Procedure: XR DEXA axial skeleton EXAMINATION: XR DEXA axial skeleton HISTORY: Osteoporosis COMPARISON: DEXA bone densitometry 03/21/2021 TECHNIQUE: Dual-energy X-ray absorptiometry (DXA) was performed. FINDINGS: SPINE ANALYSIS: Average bone mineral density is 0.942 g/cm2. T-score (standard deviation relative to young adult mean): -2.0 . Not previously evaluated. HIP ANALYSIS: Lowest bone mineral density is within the left femoral neck, 0.686 g/cm2. T-score (standard deviation relative to young adult mean): -2.5 . -2.1% change since prior study. XR/XR DEXA axial skeleton IMPRESSION: World Health Organization Classification: Osteoporosis - High Fracture Risk FRAX: Cannot be calculated. Pharmacologic treatment recommendations * No uniform recommendation applies to all patients. Management plans must be individualized. * Consider initiating pharmacologic treatment in postmenopausal women and men >= 50 years of age who have the following: Primary fracture prevention: * T-score <= - 2.5 at the femoral neck, total hip, lumbar spine, 33% radius (some uncertainty with existing data) by DXA. * Low bone mass (osteopenia: T-score between - 1.0 and - 2.5) at the femoral neck or total hip by DXA with a 10-year hip fracture risk >= 3% or a 10-year major osteoporosis-related fracture risk >= 20% (i.e., clinical vertebral, hip, forearm, or proximal humerus) based on the US-adapted FRAXregistered model. Secondary fracture prevention: * Fracture of the hip or vertebra regardless of BMD [4, 5]. * Fracture of proximal humerus, pelvis, or distal forearm in persons with low bone mass (osteopenia: T-score between - 1.0 and - 2.5). The decision to treat should be individualized in persons with a fracture of the proximal humerus, pelvis, or distal forearm who do not have osteopenia or low BMD [12, 13]. Mary MS, Juan SL, Jorge KL, Milton EM, Trevon KG, AJ, Belinda ES. The clinician's guide to prevention and treatment of osteoporosis. Osteoporos Int. 2021;33(10):3201-3408. doi: 10.1007/u58381-290-01586-t. Epub 2021Dec 01. Erratum in: Osteoporos Int. 2021Mar 02;: PMID: [id number]; PMCID: [id number]. Electronically authenticated by: LATASHA KEANE Date: 09/09/2024 09:24
[2024-09-08 10:37] LABS: Estimated Average Glucose 111 mg/dL; Glycohemoglobin A1C 5.5 % (4.5-6.2)
[2024-09-08 12:06] LABS: Alanine Aminotransferase 31 U/L (14-59); Albumin Globulin Ratio 1.1; Albumin Level 3.7 g/dL (3.4-5.0); Alkaline Phosphatase 52 U/L (46-116); Anion Gap 14.5; Aspartate Amino Transferase 20 U/L (15-37); BUN Creatinine Ratio 15.9; Bilirubin Total 0.5 mg/dL (0.2-1.0); Calcium 9.2 mg/dL (8.5-10.1); Carbon Dioxide 27.5 mmol/L (21.0-32.0); Chloride 106 mmol/L (98-107); Chol HDL Ratio 2.6; Cholesterol 127 mg/dL (<=200); Estimated GFR (African America >60 (>=60 mL/min/1.73m^2); Estimated GFR (Non-African Ame >60 (>=60 mL/min/1.73m^2); Free T3 2.43 pg/mL (2.18-3.98); Globulin 3.4 g/dL; Glucose 95 mg/dL (74-106); HDL Cholesterol 49 mg/dL (40-60); LDL Cholesterol Calculated 54.2 mg/dL; Sodium 144 mmol/L (136-145); Thyroid Stimulating Hormone 1.343 uIU/mL (0.358-3.740); Total Protein 7.1 g/dL (6.4-8.2); Triglycerides 119 mg/dL (<=150); VLDL CHOLESTEROL 23.8 mg/dL
[2024-09-10 04:07] LABS: Vitamin B12 >2000 pg/mL (232-1245)
== END 2024-09-08 09:42 | disposition home or self-care (01) ==
LOC: MAMMO 09:41
PROVIDERS: PCP Family Medicine; Visit Provider Family Medicine
DX: Z00.00 Encounter for general adult medical examination without abnormal findings (principal); M81.0 Age-related osteoporosis without current pathological fracture; E78.5 Hyperlipidemia, unspecified; R53.83 Other fatigue; D64.9 Anemia, unspecified; E03.9 Hypothyroidism, unspecified; E55.9 Vitamin D deficiency, unspecified; I10 Essential (primary) hypertension; E11.40 Type 2 diabetes mellitus with diabetic neuropathy, unspecified; Z12.31 Encounter for screening mammogram for malignant neoplasm of breast; E53.8 Deficiency of other specified B group vitamins
CPT/HCPCS: 36415; 77063; 77067; 77080; 80053; 80061; 82306; 82607; 83036; 83540; 84436; 84443; 84481; 85025

== ENCOUNTER 2025-01-06 07:13 | Outpatient (OUT) | payer MEDICARE, SELFPAY ==
--- OUTSIDE RECORDS SUMMARY | 2024-09-03 06:45 | XMS_ITS ---
Author Organization [facility] Address [address] [place], [place] [address], [place] [id number] Care Team Providers Care Supervisor Drapery Hanging Name Role Phone Briseyda Cynthia Unavailable [phone] REASON FOR VISIT ORDNANCE OFFICER Comp Exam Encounters Encounter Location Date Provider Diagnosis [facility] [address] [place], [place] [id number] 09/03/2024 Cynthia Rain Plan Of Treatment No Information Progress Notes * ELISEOShayanaDOB:1960 (65 yo F)Acc No.[id number]:09/03/2024 Patient: Cary YU Provider: Anayeli Rain DDS :1960 A ge:64 Y S ex:Female Date:09/03/2024 Address:[address], [id number] Subjective: * Chief Complaints: * 1 . ORDNANCE OFFICER Comp Exam. * Medical History: Objective: * Vitals: Assessment: Plan: * Treatment: * Billing Information: * Visit Code: * Procedure Codes: * Electronic signature of Ted Rain DDS on 01/06/2025 at 07:17 AM EDT Sign off status: Pending * Provider: Anayeli Rain DDS Date: 09/03/2024 Generated for Itzel dee/Juan Ramon/Brendan on: 01/06/2025 07:17 AM EDT
--- OUTSIDE RECORDS SUMMARY | 2024-12-22 10:45 | XMS_ITS | Encounter Summary ---
Author Organization [employer] [facility] Address [id number] [place] [address] Care Team Providers Care Clock Repairer Name Role Phone Meir Friedman MD Primary Care Provider [phone] Reason for Referral * Cardiology (Routine) - Closed Specialty Diagnoses / Procedures Referred By Contac t Referred To Contact Diagnoses Preop cardiovascular exam Hypertension, unspecified type Procedures ECG 12 lead Micheal Prado MD [address] [place], [place] [address] [address] Phone: tel: fax: Referral ID Status Reason Start Date Expiration Date Visits Re quested Visits Authorized [id number] Closed 12/15/2024 12/15/2025 1 1 Reason for Visit * Cardiology (Routine) - Closed Specialty Diagnoses / Procedures Referred By Cyndy hare Referred To Contact Diagnoses Preop cardiovascular exam Hypertension, unspecified type Procedures ECG 12 lead Micheal Prado MD [address] [place] [address] Phone: tel: fax: Referral ID Status Reason Start Date Expiration Date Visits Re quested Visits Authorized [id number] Closed 12/15/2024 12/15/2025 1 1 Encounter Details Date Type Department Care Team (Latest Contact Info) Description 12/22/2024 10:45 AM EDT - 12/22/2024 11:59 PM EDT Hospital Encounter [facility] - Cardiovascular [address] [place] [phone] Micheal Prado MD [address] [place] [address] Preop cardiovascular exam; Hypertension, unspecified type Discharge Disposition: Home Social History Tobacco Use Types Packs/Day Years Used Date Smoking Tobacco: Former Cigarettes 1 30 Smokeless Tobacco: Never Comments:QUIT 9 YEARS AGO Alcohol Use Standard Drinks/Week Comments Yes 0 (1 standard drink = 0.6 oz pur e alcohol) SOCIAL/BEER Childcare Answer Date Recorded Childcare Unknown 01/15/2019 Employment Answer Date Recorded Employment Unknown 01/15/2019 Purpose - Life Answer Date Recorded Purpose and direction in life Unknown Comments No Sex and Gender Information Value Date Recorded Sex Assigned at Not on file Legal Sex Female 11:34 AM EDT Gender Identity Not on file Sexual Orientation Not on file documented as of this encounter Medications at Time of Discharge acyclovir (ZOVIRAX) 800 mg tablet Take 1 tablet (800 mg total) by mouth in the morning. ALPRAZolam (XANAX) 0.25 mg tablet 05/13/2020 ascorbic acid (VITAMIN C) 500 mg tablet Take 1 tablet (500 mg total) by mouth in the morning. aspirin 81 mg Take 1 tablet (81 mg total) by mouth in the morning. biotin 1 mg tablet Take 1 tablet (1 mg total) by mouth in the morning. 10/03/2021 cetirizine (ZyrTEC) 10 mg tablet Take 1 tablet (10 mg total) by mouth in the morning. cholecalciferol, vitamin D3, (VITAMIN D3) 5,000 units capsule Take 1 capsule (5,000 Units total) by mouth in the morning. cyanocobalamin (VITAMIN B-12) 100 MCG tablet Take 10 tablets (1,000 mcg total) by mouth in the morning. diphenhydrAMINE (SOMINEX) 25 mg tablet Take 1 tablet (25 mg total) by mouth nightly as needed for sleep. docusate sodium (COLACE) 100 mg capsule Take 1 capsule (100 mg total) by mouth in the morning and 1 capsule (100 mg total) before bedtime. fluticasone propionate (FLONASE) 50 mcg/actuation nasal spray Administer 1 spray into each nostril in the morning. gabapentin (NEURONTIN) 300 mg capsule Take 1 capsule (300 mg total) by mouth in the morning and 1 capsule (300 mg total) before bedtime. 12/13/2021 ibuprofen (ADVIL,MOTRIN) 800 mg tablet Take 1 tablet (800 mg total) by mouth every 6 (six) hours as needed for pain. lisinopriL (PRINIVIL,ZESTRIL) 40 mg tablet Take 5 mg by mouth in the morning. 10/28/2021 magnesium oxide (MAGOX) 400 mg tablet Take 1 tablet (400 mg total) by mouth nightly. metFORMIN (GLUCOPHAGE) 500 mg tablet Take 1 tablet (500 mg total) by mouth in the morning and 1 tablet (500 mg total) before bedtime. 10/09/2021 metoprolol succinate XL (TOPROL XL) 100 mg 24 hr tablet Take 1 tablet (100 mg total) by mouth in the morning and 1 tablet (100 mg total) before bedtime. 11/14/2021 krawrogg-qbne-WC-c alcium &mins (THERAGRAN-M) 9 mg iron-400 mcg tablet Take 1 tablet by mouth in the morning. multivit-min/folic ac/collagen (WOMEN'S MULTIVITAMIN COLLAGEN ORAL) Take by mouth. Powder, 1 scoop daily omega 9-ahl-fpg-fish oil (Fish OiL) 300-1,000 mg capsule Take 1,200 mg by mouth in the morning. omeprazole (PriLOSEC) 40 mg capsule TAKE 1 CAPSULE(40 MG) BY MOUTH DAILY 90 capsule 06/14/2020 rosuvastatin (CRESTOR) 20 mg tablet Take by mouth in the morning. 04/23/2020 semaglutide (OZEMPIC) 2 mg/dose (8 mg/3 mL) pen injector Inject 2 mg under the skin every 7 days. Sunday tiZANidine (ZANAFLEX) 4 mg tablet Take 1 tablet (4 mg total) by mouth in the morning and 1 tablet (4 mg total) before bedtime. 2 tablets before bed. 12/13/2021 documented as of this encounter Plan of Treatment Upcoming Encounters Date Type Department Care Team (Latest Contact Info) Description 01/15/2025 7:30 AM EDT Hospital Encounter [facility] - [facility] [address] [facility] [address] Kesha Davila MD [address] [place] [address] 01/15/2025 7:30 AM EDT - 01/15/2025 8:15 AM EDT Surgery [facility] - Surgery [address] [facility] [place] [address] Kesha Davila MD [address] [place] [address] [phone] EXTRACTION CATARACT INTRAOCULAR LENS [75267 (CPT )] 01/28/2025 4:00 PM EDT Support Visit [facility] - Pre Admit [address] [place] [address] 01/29/2025 7:30 AM EDT Hospital Encounter [facility] - Surgery [address] [place] [address] Kesha Davila MD [address] [place] [address] [phone] 01/29/2025 7:30 AM EDT Anesthesia Event [facility] Surgery [address] [place] [address] Chay Saenz, DO [address] [place] [address] 01/29/2025 7:30 AM EDT - 01/29/2025 8:15 AM EDT Surgery [facility] Surgery [address] [place] [address] Kesha Davila MD [address] [place] [address] [phone] EXTRACTION CATARACT INTRAOCULAR LENS [20585 (CPT )] Scheduled Procedures Name Priority Associated Diagnoses Date/Ti me EXTRACTION CATARACT INTRAOCU LAR LENS cataract left eye 01/15/2025 7:30 AM EDT EXTRACTION CATARACT INTRAOCU LAR LENS cataract right eye 01/29/2025 7:30 AM EDT documented as of this encounter Goals Goal Patient Goal Type Associated Problems Recent Progress Patient-Stated? Author Autogenerat ed Goal Care Plan Autogenerated Problem No Background, Optime Eod documented as of this encounter Procedures Procedure Name Priority Date/Time Associated Diagnosis Comments ECG 12-LEAD Routine 12/22/2024 11:27 AM EDT Preop cardiovascular exam Hypertension, unspecified type documented in this encounter Results * ECG 12 lead (12/22/2024 11:27 AM EDT) 12/22/2024 11:2 7 AM EDT Narrative TRACEMASTERVUE - 12/22/2024 4:11 PM EDT Micheal Prado MD ECG ORDERABLES Final Result TRACEMASTERVUE documented in this encounter Visit Diagnoses Diagnosis Preop cardiovascular exam Pre-operative cardiovascular examination Hypertension, unspecified type documented in this encounter Additional Health Concerns Active Problems Noted Date Diagnosed Date Autogenerated Problem 12/15/2024 documented as of this encounter Care Teams Clock Repairer Relationship Specialty Start Date End Date Meir Friedman MD PCP - General 08/15/17 documented as of this encounter
--- OUTSIDE RECORDS SUMMARY | 2025-01-01 10:47 | XMS_ITS ---
Author Organization [facility] [place] Address [address] [place] [address] Care Team Providers Care Extruder Operator Horizontal Name Role Phone Lino Friedman Primary Care Provider REASON FOR VISIT meds Encounters Encounter Location Date Provider Diagnosis [facility] [address] [place] [address] 01/01/2025 Lino Friedman Plan Of Treatment No Information Progress Notes * ELISEO ShayanaDOB:1960 (64 yo F)Acc No.[id number]:01/01/2025 Patient: Cary YU :1960 A ge:64 Y S ex:Female Address:[address] [place], [address] * true * Date: Generated for Itzel dee/Juan Ramon/eTransmitting on: 0 01/06/2025 07:17 AM EDT
--- OUTSIDE RECORDS SUMMARY | 2025-01-02 06:00 | XMS_ITS ---
Author Organization [facility] [place] Address [address] [place] [address] Care Team Providers Care Career Resource Specialist Name Role Phone Lino Friedman Primary Care Provider REASON FOR VISIT stress test Encounters Encounter Location Date Provider Diagnosis [facility] [address] [place] [address] 2025 Lino Friedman Plan Of Treatment No Information Progress Notes * ELISEO ShayanaDOB:1960 (65 yo F)Acc No.[id number]:2025 Patient: Cary YU :1960 A ge:65 Y S ex:Female Address:[address] [place], [address] * true * Date: Generated for Itzel dee/Juan Ramon/eTransmitting on: 0 01/06/2025 07:17 AM EDT
--- OUTSIDE RECORDS SUMMARY | 2025-01-05 04:09 | XMS_ITS ---
Author Organization [facility] [place] Address [address] [place] [address] Care Team Providers Care Certified Public Accountant Name Role Phone Lino Friedman Primary Care Provider REASON FOR VISIT rf xanax- DUE SUNDAY Encounters Encounter Location Date Provider Diagnosis [facility] [address] [place] [address] 01/05/2025 Lino Friedman Plan Of Treatment No Information Progress Notes * [place] GOMESB:1960 (65 yo F)Acc No.[id number]:01/05/2025 UNLOCKED PROGRESS NOTE Patient: Cary YU :1960 A ge:65 Y S ex:Female Address:[address] [place], [address] * * Date:
--- NOTE | 2025-01-06 | PCN_ITS ---
CARDIAC STRESS TEST Requesting Physician: Meir Friedman M.D. Procedure Date: 01/06/2025 INDICATION FOR THE TEST: Chest pain and shortness of breath. At baseline, patient was noted to have sinus rhythm with low voltage complex with delayed R-wave progression and normal intervals. The resting heart rate was noted to be 70 beats per minute, with a blood pressure of 150/82 mm/Hg. Peak heart rate noted was 104 beats per minute, with blood pressure of 152/86 mm/Hg. The Lexiscan study was done because the patient was unable to walk on the treadmill. With infusion of the vasodilator, occasional PVCs were noted. Six minutes into the infusion, patient was noted to have sinus rhythm with no EKG changes reflective of ischemia or any AV block. IMPRESSION: 1. No EKG changes noted suggestive of ischemia during the time of stress test. 2. Low voltage complex seen at baseline, could be indicative of ischemic heart disease. 3. Baseline elevated blood pressure noted. 4. Nuclear perfusion study to be dictated separately. [facility]
--- OUTSIDE RECORDS SUMMARY | 2025-01-06 07:17 | XMS_ITS | Encounter Summary ---
Author Organization [facility] Address [address] [facility] [place] [address] Care Team Providers Care Professor Of Biostatistics Name Role Phone Meir Friedman MD Primary Care Provider [phone] Encounter Details Date Type Department Care Team (Latest Contact Info) Description 01/05/2025 Travel Social History Tobacco Use Types Packs/Day Years Used Date Smoking Tobacco: Never Assessed Comments Unknown Sex and Gender Information Value Date Recorded Sex Assigned at Not on file Legal Sex Female 7:17 PM EDT Gender Identity Not on file Sexual Orientation Not on file documented as of this encounter Plan of Treatment Upcoming Encounters Date Type Department Care Team (Late st Contact Info) Description 01/06/2025 1:00 PM EDT Office Visit [facility] [address] [place] [phone] Michael Gavin, [address] [facility] [address] [place], [place] [phone] documented as of this encounter Visit Diagnoses Not on filedocumented in this encounter Care Teams Professor Of Biostatistics Relationship Specialty Start Date End Date Meir Friedman MD [address] [facility] [place] [address] PCP - General 12/30/24 documented as of this encounter
--- OUTSIDE RECORDS SUMMARY | 2025-01-06 07:17 | XMS_ITS | Referral Summary ---
Author Organization [facility] Address [address] [place] [address] Care Team Providers Care Piano Case Maker Name Role Phone Micheal Chacko MD Primary Care Provider [phone] Social History Tobacco Use Types Packs/Day Years Used Date Smoking Tobacco: Never Assessed [place] Safety & Environment Answer Date Rec orded Fear of Current or Ex-Partner Not on file Emotionally Abused Not on file 09/27/2023 Physically Abused Not on file 09/27/2023 Sexually Abused Not on file 09/27/2023 Physically or Sexually Abused Not on file Sex and Gender Information Value Date Recorded Sex Assigned at Not on file Gender Identity Not on file Sexual Orientation Not on file Plan of Treatment Not on file Care Teams Piano Case Maker Relationship Specialty Start Date End Date Micheal Chacko MD PCP - General 05/17/22
--- OUTSIDE RECORDS SUMMARY | 2025-01-06 07:17 | XMS_ITS | Clinical Summary ---
Author Organization [facility] Address [address] [place] [address] Care Team Providers Care Plant And Maintenance Technician Name Role Phone Micheal Chacko MD Primary Care Provider [phone] Social History Tobacco Use Types Packs/Day Years [...] Orientation Not on file Plan of Treatment Health Maintenance Due Date Last Done Comments CT Colonography 1960 Colonoscopy 1960 Colorectal Cancer Screening 1960 FIT-DNA 1960 FIT 1962 FOBT 1960 Sigmoidoscopy 1960 Depression Screening 1974 Pap Smear 1983 Adult Tetanus 01/03/1984 Cervical Cancer Screening 01/03/1992 HPV/Cotest 01/03/1992 Mammogram 2002 Zoster Vaccines (1 of 2) 01/03/2012 Influenza Vaccine (Season Ended) 2025 HIB Vaccines Aged Out No longer eligi ble based on patient's age to complete this topic HPV Vaccines Aged Out No longer eligi ble based on patient's age to complete this topic IPV Vaccines Aged Out No longer eligi ble based on patient's age to complete this topic Meningococcal B Vaccine Aged Out No l onger eligible based on patient's age to complete this topic Meningococcal Vaccine Aged Out No asuncion rigo eligible based on patient's age to complete this topic Pneumococcal Vaccine: Pediat rics (0 to 5 Years) and At-Risk Patients (6 to 64 Years) Aged Out No longer eligible b ased on patient's age to complete this topic Rotavirus Vaccines Aged Out No longer eligible based on patient's age to complete this topic Care Teams Plant And Maintenance Technician Relationship Specialty Start Date End Date Micheal Chacko MD PCP - General 05/17/22
--- OUTSIDE RECORDS SUMMARY | 2025-01-06 07:17 | XMS_ITS | Clinical Summary ---
Author Organization [facility] Address [address] [facility] [place] [address] Phone Care Team Providers Care Data Services Developer Name Role Phone Unavailable Primary Care Provider Unavailabl e Social History Tobacco Use Types Packs/Day Years Used Date Smoking Tobacco: Never Assessed Comments Unknown Sex and Gender Information Value Date Recorded Sex Assigned at Not on file Legal Sex Female 10:32 PM EST Gender Identity Not on file Sexual Orientation Not on file Plan of Treatment Not on file
--- OUTSIDE RECORDS SUMMARY | 2025-01-06 07:17 | XMS_ITS | Patient Health Record ---
Author Organization [facility] Address [address] [place] [address] Care Team Providers Care Animal Ride Attendant Name Role Phone Lino Friedman Primary Care Provider EMI FRIEDMAN Unavailable [phone] Allergies Allergen (clinical drug ingredient) Drug/Non Drug Allergy documented on EMR Reaction Allergy Type Onset Date Status paper tape (uncoded) ronquillo skin Allergy Active Substance with sulfonamide structure and antibacterial mechanism of action (substance) Sulfa (uncoded) hives Allergy Active penicillin G Penicillin G Potassium hives Drug Allergy Active amitriptyline Amitriptyline hallucinations Drug Allergy Active Results Component Value Reference Range Notes XR DEXA axial skeleton Reviewed date:09/09/2024 02:12:16 PM Interpretation: Performing Lab: Notes/Report: Source Facility: [place] [address] [place] [address] XRay Report Signed Patient: ELISA LEUNG MR#: [id number] : 1960 Acct:[id number] Age/Sex: 64 / F ADM Date: 09/08/24 Loc: MAMMO Attending Dr: Emi Friedman M.D. Ordering Physician: Emi Friedman M.D. Date of Service: 09/08/24 Procedure(s): XR DEXA axial skeleton Accession Number(s): [id number] cc: Emi Friedman M.D. [place] [id number] Patient Name: ELISA LEUNG MRN: [id number] date: 1960 Sex: F Assigned Patient Location: [facility] Current Patient Location: Accession/Order Number: [id number] Exam Date: 09/08/2024 10:15 Report Date: 09/09/2024 09:24 At the request of: EMI FRIEDMAN Procedure: XR DEXA axial skeleton EXAMINATION: XR DEXA axial skeleton HISTORY: Osteoporosis COMPARISON: DEXA bone densitometry 03/21/2021 TECHNIQUE: Dual-energy X-ray absorptiometry (DXA) was performed. FINDINGS: SPINE ANALYSIS: Average bone mineral density is 0.942 g/cm2. T-score (standard deviation relative to young adult mean): -2.0 . Not previously evaluated. HIP ANALYSIS: Lowest bone mineral density is within the left femoral neck, 0.686 g/cm2. T-score (standard deviation relative to young adult mean): -2.5 . -2.1% change since prior study. XR/XR DEXA axial skeleton IMPRESSION: World Health Organization Classification: Osteoporosis - High Fracture Risk FRAX: Cannot be calculated. Pharmacologic treatment recommendations * No uniform recommendation applies to all patients. Management plans must be individualized. * Consider initiating pharmacologic treatment in postmenopausal women and men >= 50 years of age who have the following: Primary fracture prevention: * T-score <= - 2.5 at the femoral neck, total hip, lumbar spine, 33% radius (some uncertainty with existing data) by DXA. * Low bone mass (osteopenia: T-score between - 1.0 and - 2.5) at the femoral neck or total hip by DXA with a 10-year hip fracture risk >= 3% or a 10-year major osteoporosis-related fracture risk >= 20% (i.e., clinical vertebral, hip, forearm, or proximal humerus) based on the [place]-adapted FRAXregistered model. Secondary fracture prevention: * Fracture of the hip or vertebra regardless of BMD [4, 5]. * Fracture of proximal humerus, pelvis, or distal forearm in persons with low bone mass (osteopenia: T-score between - 1.0 and - 2.5). The decision to treat should be individualized in persons with a fracture of the proximal humerus, pelvis, or distal forearm who do not have osteopenia or low BMD [12, 13]. Mary MS, Juan SL, Jorge KL, Milton EM, Trevon KG, AJ, Belinda ES. The clinician's guide to prevention and treatment of osteoporosis. Osteoporos Int. 2021;3310):6116-5443. doi: 10.1007/u87934-977-74886-n. Epub 2021Dec 01. Erratum in: Osteoporos Int. 2021Mar 02;: PMID: 02700453; PMCID: VAQ0947106. Electronically authenticated by: FRANCO TOMPKINS Date: 09/09/2024 09:24 Dictated By: Franco Tompkins M.D. Signed By: 09/09/24926 DD/ 3 TD/TT: Business Machine Mechanic: [place] [address] XRay Report Signed Patient: ZEINAB LEUNG RA MR#: [id number] : 1960 Acct:[id number] Age/Sex: 64 / F ADM Date: 09/08/24 Loc: MAMMO Attending Dr: Agata Friedman M.D. Ordering Physician: Emi Friedman M.D. Date of Service: 09/08/24 Procedure(s): XR DEX A axial skeleton Accession Number(s): [id number] cc: Emi Friedman M.D. [place] [id number] Patient Name: ELISA LEUNG MRN: [id number] date: 1960 Sex: F Assigned Patient Location: [facility] Current Patient Location: Accession/Order Numb er: [id number] Exam Date: 09/08/2024 10:15 Report Date: 09/09/2024 09:24 At the request of: EMI FRIEDMAN Procedure: XR DEXA a xial skeleton EXAMINATION: XR DEXA axial skeleton HISTORY: Osteoporosis COMPARISON: DEXA bon e densitometry 03/21/2021 TECHNIQUE: Dual-ener gy X-ray absorptiometry (DXA) was performed. FINDINGS: SPINE ANALYSIS: Average bone mineral density is 0.942 g/cm2. T-score (standard deviation relative to young adult mean): -2.0 . Not previously evaluated. HIP ANALYSIS: Lowest bone mineral density is within the left femoral neck, 0.686 g/cm2. T-score (standard deviation relative to young adult mean): -2.5 . -2.1% change since p rior study. X R/XR DEXA axial skeleton IMPRESSION: World Health Organization Classification: Osteoporosis - High Fracture Risk FRAX: Cannot be calculated. Pharmacologic treatm ent recommendations * No uniform recommendation applies to all patients. Management plans must be individualized. * Consider initiatin g pharmacologic treatment in postmenopausal women and men >= 50 years of age w ho have the following: Primary fracture prevention: * T-score <= - 2.5 a t the femoral neck, total hip, lumbar spine, 33% radius (some uncertainty wi th existing data) by DXA. * Low bone mass (osteopenia: T-score between - 1.0 and - 2.5) at the femoral neck or total hip by DXA with a 10-year hip fracture risk >= 3% or a 10-year major osteoporosis-related fracture risk >= 20% (i.e., clinical vertebral, hip, forearm, or proximal humerus) based on the [place]-adapted FRAXregistered model. Secondary fracture prevention: * Fracture of the hi p or vertebra regardless of BMD [4, 5]. * Fracture of proxim al humerus, pelvis, or distal forearm in persons with low bone mass (osteopeni a: T-score between - 1.0 and - 2.5). The decision to treat should be individual ized in persons with a fracture of the proximal humerus, pelvis, or distal forearm who do not have osteopenia or low BMD [12, 13]. Mary MS, Juan SL, Jorge KL, Milton EM, Trevon KG, AJ, Belinda ES. The clinician's guid e to prevention and treatment of osteoporosis. Osteoporos Int. 2021;33(10):6273-1383. doi: 10.1007/r38415-869-30182 -y. Epub 2021Dec 01. Erratum in: Osteoporos Int. 2021Mar 02;: PMID: 80907252; PMCID: [id number]. Electronically authenticated by: FRANCO TOMPKINS Date: 09/09/2024 09:24 Dictated By: Franco Tompkins M.D. Signed By: 09/09/24926 DD/ 3 TD/TT: Business Machine Mechanic: VITAMIN D 25 [place] Reviewed date:09/08/2024 07:44:33 PM Interpretation: Performing Lab: Notes/Report: [facility] , Vitamin D 39.0 >100 ng/mL Potential Toxicity 20-<30 ng/mL Vit D insufficient <20 ng/mL Vit D deficient 30-100 ng/mL Vit D sufficient Performing Lab: see note ML - [facility] LB TSH Reviewed date:09/08/2024 07:44:33 PM Interpretation: Performing Lab: Notes/Report: [facility] , Thyroid Stimulating Hormone 1.343 0.358-3.740 uIU/mL Performing Lab: see note ML - [facility] LB T4 Reviewed date:09/08/2024 07:44:33 PM Interpretation: Performing Lab: Notes/Report: [facility] , T4 Thyroxine 11.20 4.80-13.90 ug/dL Performing Lab: see note ML - [facility] LB PROF 14(COMP METB) Reviewed date:09/08/2024 07:44:33 PM Interpretation: Performing Lab: Notes/Report: [facility] , Sodium 144 136-145 mmol/L Potassium 4.0 3.5-5.1 mmol/L Chloride 106 98-107 mmol/L Carbon Dioxide 27.5 21.0-32.0 mmol/L Anion Gap 14.5 Glucose 95 74-106 mg/dL Blood Urea Nitrogen 14.0 7.0-18.0 mg/dL Creatinine 0.88 0.55-1.02 mg/dL Estimated GFR ( Linda >60 >=60 mL/min/1.73m 2 Estimated GFR (Non- Brittanie >60 >=60 mL/min/1.73m 2 BUN Creatinine Ratio 15.9 Calcium 9.2 8.5-10.1 mg/dL Bilirubin Total 0.5 0.2-1.0 mg/dL Aspartate Amino Transferase 20 15-37 U/L Alanine Aminotransferase 31 14-59 U/L Alkaline Phosphatase 52 46-116 U/L Total Protein 7.1 6.4-8.2 g/dL Albumin Level 3.7 3.4-5.0 g/dL Globulin 3.4 Albumin Globulin Ratio 1.1 Performing Lab: see note ML - [facility] LB LIPID PROFILE Reviewed date:09/08/2024 07:44:33 PM Interpretation: Performing Lab: Notes/Report: [facility] , Triglycerides 119 <=150 mg/dL Cholesterol 127 <=200 mg/dL HDL Cholesterol 49 40-60 mg/dL > or =60 mg/dl - LOW CARDIOVASCULAR RISK <40 mg/dl - HIGH CARDIOVASCULAR RISK LDL Cholesterol Calculated 54.2 <100 mg/dl OPTIMAL 130-159 mg/dl BORDERLINE HIGH >190 mg/dl VERY HIGH 100-129 mg/dl NEAR OR ABOVE OPTIMAL 160-189 mg/dl HIGH VLDL CHOLESTEROL 23.8 Chol HDL Ratio 2.6 >11.0 HIGH RISK 3.3 - 4.4 LOW RISK 7.1 - 11.0 MODERATE RISK 4.4 - 7.1 AVERAGE RISK Performing Lab: see note ML - [facility] LB IRON Reviewed date:09/08/2024 07:44:33 PM Interpretation: Performing Lab: Notes/Report: [facility] , Iron 98.0 50.0-170.0 ug/dL Performing Lab: see note ML - [facility] LB FREE T3 Reviewed date:09/08/2024 07:44:33 PM Interpretation: Performing Lab: Notes/Report: [facility] , Free T3 2.43 2.18-3.98 pg/mL Performing Lab: see note ML - [facility] LB CBC AUTO DIFF Reviewed date:09/08/2024 07:44:33 PM Interpretation: Performing Lab: Notes/Report: [facility] , White Blood Count 6.1 4.0-11.0 10 3/uL Red Blood Count 3.98 4.20-5.40 10 6/uL Hemoglobin 13.4 12.0-16.0 g/dL Hematocrit 40.6 36.0-48.0 % Mean Corpuscular Volume 102.0 81.0-99.0 fL Mean Corpuscular Hemoglobin 33.7 26.7-34.0 pg Mean Corpuscular HGB Conc 33.0 29.9-35.2 g/dL Red Cell Distribution Width 12.5 11.0-15.0 % Platelet Count 318 150-450 10 3/uL Mean Platelet Volume 9.1 9.5-13.5 fL Neutrophils Percent Auto 51.1 43.0-75.0 % Lymphocytes Percent Auto 36.7 20.5-60.0 % Monocytes Percent Auto 9.1 1.7-12.0 % Eosinophils Percent Auto 1.8 0.9-7.0 % Basophils Percent Auto 1.0 0.2-2.0 % Immature Granulocytes Pct Auto 0.3 0.0-0.5 % Neutrophils Absolute Auto 3.1 1.4-6.5 10 3/uL Lymphocytes Absolute Auto 2.2 1.2-3.8 10 3/uL Monocytes Absolute Auto 0.6 0.3-0.8 10 3/uL Eosinophils Absolute Auto 0.1 0.0-0.7 10 3/uL Basophils Absolute Auto 0.1 0.0-0.1 10 3/uL Immature Granulocytes Abs Auto 0.02 0.00-0.03 10 3/uL Performing Lab: see note ML - [facility] US renal bladder Reviewed date:02/12/2024 08:36:15 PM Interpretation: Performing Lab: Notes/Report: Source Facility: [place] [address] Ultrasound Report Signed Patient: ELISA LEUNG MR#: [id number] : 1960 Acct:[id number] Age/Sex: 64 / F ADM Date: 02/12/24 Loc: US Attending Dr: Emi Friedman M.D. Ordering Physician: Emi Friedman M.D. Date of Service: 02/12/24 Procedure(s): US renal bladder Accession Number(s): [id number] cc: Emi Friedman M.D. [place] [address] Patient Name: ELISA LEUNG MRN: [id number] date: 1960 Sex: F Assigned Patient Location: US Current Patient Location: US Accession/Order Number: [id number] Exam Date: 02/12/2024 07:35 Report Date: 02/12/2024 15:49 At the request of: EMI FRIEDMAN Procedure: US renal bladder EXAMINATION: US renal bladder HISTORY: UTI N39.0 COMPARISON: No relevant comparison available. TECHNIQUE: Ultrasound examination was performed of the bladder. FINDINGS: Right Kidney: Normal in size, contour and echotexture. the cortex measures 1.2 cm. No solid cortical mass, hydronephrosis or obstructing nephrolithiasis. Height: 5.16 cm Length: 10.39 cm Width: 5.68 cm Left Kidney: Normal in size, contour and echotexture. the cortex measures 1.3 cm. No solid cortical mass, hydronephrosis or obstructing nephrolithiasis Height: 5.83 cm Length: 11.43 cm Width: 4.53 cm The urinary bladder is normal. Prevoid volume 133 mL. Post void volume 1 mL. Ureteral jets: Visualized bilaterally US/US renal bladder IMPRESSION: No acute abnormality Electronically authenticated by: EMI JIMENES Date: 02/12/2024 15:49 Dictated By: Emi Jimenes M.D. Signed By: 02/12/24 1552 DD/ 1549 TD/TT: Business Machine Mechanic: [place] [address] Ultrasound Report Signed Patient: ZEINAB LEUNG RA MR#: [id number] : 1960 Acct:[id number] Age/Sex: 64 / F ADM Date: 02/12/24 Loc: US Attending Dr: Agata Friedman M.D. Ordering Physician: Emi Friedman M.D. Date of Service: 02/12/24 Procedure(s): US trish al bladder Accession Number(s): [id number] cc: Emi Friedman M.D. The [address] [address] Patient Name: ELISA LEUNG MRN: [id number] date: 1960 Sex: F Assigned Patient Location: US Current Patient Location: US Accession/Order Numb er: [id number] Exam Date: 02/12/2024 07:35 Report Date: 02/12/2024 15:49 At the request of: EMI FRIEDMAN Procedure: US renal bladder EXAMINATION: US bernice l bladder HISTORY: UTI N39.0 COMPARISON: No relev ant comparison available. TECHNIQUE: Ultrasoun d examination was performed of the bladder. FINDINGS: Right Kidney: Normal in size, contour and echotexture. the cortex measures 1.2 cm. No solid cortica l mass, hydronephrosis or obstructing nephrolithiasis. Height: 5.16 cm Daksha th: 10.39 cm Width: 5.68 cm Left Kidney: Normal in size, contour and echotexture. the cortex measures 1.3 cm. No solid cortica l mass, hydronephrosis or obstructing nephrolithiasis Height: 5.83 cm Daksha th: 11.43 cm Width: 4.53 cm The urinary bladder is normal. Prevoid volume 133 mL. Post void volume 1 mL. Ureteral jets: Visualized bilaterally U S/US renal bladder IMPRESSION: No acute abnormality Electronically authenticated by: EMI JIMENES Date: 02/12/2024 15:49 Dictated By: Elijah Jimenes M.D. Signed By: 02/12/24 1552 DD/ 1549 TD/TT: Business Machine Mechanic: TOM magallon Reviewed date:02/12/2024 02:58:37 PM Interpretation: Performing Lab: Notes/Report: Source Facility: [place] [address] [place] [address] Fluoroscopy Report Signed Patient: ELISA LEUNG MR#: [id number] : 1960 Acct:[id number] Age/Sex: 64 / F ADM Date: 02/12/24 Loc: US Attending Dr: Emi Friedman M.D. Ordering Physician: Emi Friedman M.D. Date of Service: 02/12/24 Procedure(s): FL upper GI w air Accession Number(s): [id number] cc: Emi Friedman M.D. The [place] [address] Patient Name: ELISA LEUNG MRN: [id number] date: 1960 Sex: F Assigned Patient Location: US Current Patient Location: US Accession/Order Number: [id number] Exam Date: 02/12/2024 08:40 Report Date: 02/12/2024 09:46 At the request of: EMI FRIEDMAN Procedure: FL upper GI w air PROCEDURE: FL upper GI w air, FL cineradiography COMPARISON: None. FLUORO DOSE: unknown HISTORY: T.83474K Choking TECHNIQUE: An air contrast upper gastrointestinal series was performed in the usual manner. Standard level fluoroscopic mode of operation utilized. FINDINGS: ESOPHAGUS:Normal. No visible obstruction, dilatation, reflux or hernia STOMACH: Normal. No obstruction, mass, or ulceration. Normal motility. DUODENUM:Normal. No ulceration or diverticulum. OTHER: Negative. FL/FL upper GI w air IMPRESSION: Normal exam Electronically authenticated by: EMI JIMENES Date: 02/12/2024 09:46 Dictated By: Emi Jimenes M.D. Signed By: 02/12/24947 DD/ 5 TD/TT: Business Machine Mechanic: [place] [address] Fluoroscopy Report Signed Patient: ZEINAB LEUNG RA MR#: [id number] : 1960 Acct:[id number] Age/Sex: 64 / F ADM Date: 02/12/24 Loc: Attending Dr: Agata Friedman M.D. Ordering Physician: Emi Friedman M.D. Date of Service: 02/12/24 Procedure(s): FL upp er GI w air Accession Number(s): [id number] cc: Emi Friedman M.D. [place] [id number] Patient Name: ELISA LEUNG MRN: [id number] date: 1960 Sex: F Assigned Patient Location: US Current Patient Location: US Accession/Order Numb er: [id number] Exam Date: 02/12/2024 08:40 Report Date: 02/12/2024 09:46 At the request of: EMI FRIEDMAN Procedure: FL upper GI w air PROCEDURE: FL upper GI w air, FL cineradiography COMPARISON: None. FLUORO DOSE: unknown HISTORY: T.43704X Choking TECHNIQUE: An air contrast upper gastrointestinal series was performed in the usual manner. Standa rd level fluoroscopic mode of operation utilized. FINDINGS: ESOPHAGUS:Normal. No visible obstruction, dilatation, reflux or hernia STOMACH: Normal. No obstruction, mass, or ulceration. Normal motility. DUODENUM:Normal. No ulceration or diverticulum. OTHER: Negative. F L/FL upper GI w air IMPRESSION: Normal exam Electronically authenticated by: EMI JIMENES Date: 02/12/2024 09:46 Dictated By: Elijah Jimenes M.D. Signed By: 02/12/24947 DD/ 5 TD/TT: Business Machine Mechanic: FL cineradiography Reviewed date:02/12/2024 02:58:37 PM Interpretation: Performing Lab: Notes/Report: Source Facility: [place] [address] Fluoroscopy Report Signed Patient: ELISA LEUNG MR#: [id number] : 1960 Acct:[id number] Age/Sex: 64 / F ADM Date: 02/12/24 Loc: Attending Dr: Emi Friedman M.D. Ordering Physician: Emi Friedman M.D. Date of Service: 02/12/24 Procedure(s): FL cineradiography Accession Number(s): [id number] cc: Emi Friedman M.D. [place] [address] Patient Name: ELISA LEUNG MRN: [id number] date: 1960 Sex: F Assigned Patient Location: Current Patient Location: US Accession/Order Number: [id number] Exam Date: 02/12/2024 08:40 Report Date: 02/12/2024 09:46 At the request of: EMI FRIEDMAN Procedure: FL cineradiography PROCEDURE: FL upper GI w air, FL cineradiography COMPARISON: None. FLUORO DOSE: unknown HISTORY: T.50010H Choking TECHNIQUE: An air contrast upper gastrointestinal series was performed in the usual manner. Standard level fluoroscopic mode of operation utilized. FINDINGS: ESOPHAGUS:Normal. No visible obstruction, dilatation, reflux or hernia STOMACH: Normal. No obstruction, mass, or ulceration. Normal motility. DUODENUM:Normal. No ulceration or diverticulum. OTHER: Negative. FL/FL cineradiography IMPRESSION: Normal exam Electronically authenticated by: EMI JIMENES Date: 02/12/2024 09:46 Dictated By: Emi Jimenes M.D. Signed By: 02/12/24947 DD/ 5 TD/TT: Business Machine Mechanic: [place] [address] Fluoroscopy Report Signed Patient: ZEINAB LEUNG RA MR#: [id number] : 1960 Acct:[id number] Age/Sex: 64 / F ADM Date: 02/12/24 Loc: US Attending Dr: Agata Friedman M.D. Ordering Physician: Emi Friedman M.D. Date of Service: 02/12/24 Procedure(s): FL cineradiography Accession Number(s): [id number] cc: Emi Friedman M.D. [place] [id number] Patient Name: ELISA LEUNG MRN: [id number] date: 1960 Sex: F Assigned Patient Location: US Current Patient Location: US Accession/Order Numb er: [id number] Exam Date: 02/12/2024 08:40 Report Date: 02/12/2024 09:46 At the request of: EMI FRIEDMAN Procedure: FL cineradiography PROCEDURE: FL upper GI w air, FL cineradiography COMPARISON: None. FLUORO DOSE: unknown HISTORY: T.62983Q Choking TECHNIQUE: An air contrast upper gastrointestinal series was performed in the usual manner. Standa rd level fluoroscopic mode of operation utilized. FINDINGS: ESOPHAGUS:Normal. No visible obstruction, dilatation, reflux or hernia STOMACH: Normal. No obstruction, mass, or ulceration. Normal motility. DUODENUM:Normal. No ulceration or diverticulum. OTHER: Negative. F L/FL cineradiography IMPRESSION: Normal exam Electronically authenticated by: EMI JIMENES Date: 02/12/2024 09:46 Dictated By: Elijah Jimenes M.D. Signed By: 02/12/24947 DD/ 5 TD/TT: Business Machine Mechanic: WAQAR RANDOM W or MICROSCOPIC Reviewed date:02/05/2024 09:54:25 PM Interpretation: Performing Lab: Notes/Report: [facility] , Color Urine YELLOW YELLOW Clarity Urine CLEAR CLEAR Specific [place] Urine 1.025 1.005-1.025 pH Urine 5.5 5.0-9.0 Protein Urine NEGATIVE NEG/TRACE mg/dL Glucose Urine UA NEGATIVE NEGATIVE mg/dL Bilirubin Urine NEGATIVE NEGATIVE Ketones Urine NEGATIVE NEGATIVE mg/dL Blood Urine NEGATIVE NEGATIVE Nitrite Urine NEGATIVE NEGATIVE Urobilinogen Urine 0.2 0.2-1.0 EU/dL Leukocyte Esterase Urine TRACE NEGATIVE WBC Urine 2-5 NONE SEEN #/HPF RBC Urine 0-2 0-2 #/HPF Bacteria Urine TRACE NONE SEEN #/HPF Mucus Urine NONE SEEN NONE SEEN Squamous Epithelial Cell Urine FEW NONE/RARE #/LPF Crystals Seen? None Seen None Seen #/HPF Cast Seen? SEEN NONE SEEN #/LPF Hyaline Casts Urine FEW Urine Culture Indicated ALREADY ORDERED Performing Lab: see note ML - [facility] MR head/brain wo/w con Reviewed date:01/20/2024 12:02:53 PM Interpretation: Performing Lab: Notes/Report: Source Facility: [facility] [place] [address] [place] [address] Magnetic Resonance Report Signed Patient: ELISA LEUNG MR#: [id number] : 1960 Acct:[id number] Age/Sex: 64 / F ADM Date: 01/18/24 Loc: MRI Attending Dr: Emi Friedman M.D. Ordering Physician: Emi Friedman M.D. Date of Service: 01/18/24 Procedure(s): MR head/brain wo/w con Accession Number(s): [id number] cc: Emi Friedman M.D. The [place] [address] Patient Name: ELISA LEUNG MRN: [id number] date: 1960 Sex: F Assigned Patient Location: MRI Current Patient Location: MRI Accession/Order Number: [id number] Exam Date: 01/18/2024 13:55 Report Date: 01/18/2024 15:32 At the request of: EMI FRIEDMAN Procedure: MR head/brain wo/w con EXAM: MR head/brain wo/w con HISTORY: Memory Loss R41.3 COMPARISON: None. TECHNIQUE: Multisequence MRI brain was performed with and without intravenous contrast. FINDINGS: There is no restricted diffusion to suggest acute infarct. There is no midline shift, mass effect, or abnormal extraaxial fluid collections. There are no abnormal parenchymal or leptomeningeal enhancement. The cortical sulci are mildly enlarged. The ventricular system are within normal limits. There are a couple of nonspecific tiny foci of T2/FLAIR signal abnormality in the supratentorial white matter. The major intracranial flow voids are visualized. The cerebellar tonsils are normal in position. The orbits demonstrate no suspicious enhancement or any focal lesions. The paranasal sinuses show no air-fluid level. The mastoid air cells are clear. The calvarium and extracranial soft tissues are unremarkable. MR/MR head/brain wo/w con IMPRESSION: No acute intracranial abnormality or abnormal intracranial enhancement. Mild global cortical atrophy. No selective hippocampal atrophy. A couple of nonspecific tiny foci of T2/FLAIR signal abnormality in the supratentorial white matter, likely reflect chronic microvascular ischemic changes. Electronically authenticated by: NAOMI IRAHETA Date: 01/18/2024 15:32 Dictated By: NAOMI IRAHETA M.D. Signed By: 01/18/24 1534 DD/ 1532 TD/TT: Business Machine Mechanic: [place] [address] Magnetic Resonance Report Signed Patient: ZEINAB LEUNG RA MR#: [id number] : 1960 Acct:[id number] Age/Sex: 64 / F ADM Date: 01/18/24 Loc: MRI Attending Dr: Agata Friedman M.D. Ordering Physician: Emi Friedman M.D. Date of Service: 01/18/24 Procedure(s): MR head/brain wo/w con Accession Number(s): [id number] cc: Emi Friedman M.D. The [place] [id number] Patient Name: ELISA LEUNG MRN: [id number] date: 1960 Sex: F Assigned Patient Location: MRI Current Patient Location: MRI Accession/Order Numb er: [id number] Exam Date: 01/18/2024 13:55 Report Date: 01/18/2024 15:32 At the request of: EMI FRIEDMAN Procedure: MR head/b rain wo/w con EXAM: MR head/brain wo/w con HISTORY: Memory Loss R41.3 COMPARISON: None. TECHNIQUE: Multisequ ence MRI brain was performed with and without intravenous contrast. FINDINGS: There is no restrict ed diffusion to suggest acute infarct. There is no midline shift, mass effect, or abnormal extraaxial fluid collections. There are no abnorma l parenchymal or leptomeningeal enhancement. The cortical sulci a re mildly enlarged. The ventricular system are within normal limits. There are a couple o f nonspecific tiny foci of T2/FLAIR signal abnormality in the supratentorial w yossi matter. The major intracrani al flow voids are visualized. The cerebellar tonsils are normal in position. The orbits demonstra te no suspicious enhancement or any focal lesions. The paranasal sinuses sh ow no air-fluid level. The mastoid air cells are clear. The calvarium and extracranial soft tissues are unremarkable. M R/MR head/brain wo/w con IMPRESSION: No acute intracrania l abnormality or abnormal intracranial enhancement. Mild global cortical atrophy. No selective hippocampal atrophy. A couple of nonspecific tiny foc i of T2/FLAIR signal abnormality in the supratentorial white matter, likely reflect chronic microvascular ischemic changes. Electronically authenticated by: NAOMI IRAHETA Date: 01/18/2024 15:32 Dictated By: HECTOR IRAHETA M.D. Signed By: 01/18/24 1534 DD/ 153 TD/TT: Business Machine Mechanic: WAAQR MONTEIRO W or MICROSCOPIC Reviewed date:01/14/2024 01:58:18 PM Interpretation: Performing Lab: Notes/Report: [facility] , Color Urine DK YELLOW YELLOW Clarity Urine SL CLOUDY CLEAR Specific [place] Urine >=1.030 1.005-1.025 pH Urine 6.0 5.0-9.0 Protein Urine TRACE NEG/TRACE mg/dL Glucose Urine UA NEGATIVE NEGATIVE mg/dL Bilirubin Urine NEGATIVE NEGATIVE Ketones Urine NEGATIVE NEGATIVE mg/dL Blood Urine NEGATIVE NEGATIVE Nitrite Urine NEGATIVE NEGATIVE Urobilinogen Urine 0.2 0.2-1.0 EU/dL Leukocyte Esterase Urine SMALL NEGATIVE WBC Urine 75-100 NONE SEEN #/HPF RBC Urine 0-2 0-2 #/HPF Bacteria Urine SMALL NONE SEEN #/HPF Mucus Urine TRACE NONE SEEN Squamous Epithelial Cell Urine FEW NONE/RARE #/LPF Crystals Seen? None Seen None Seen #/HPF Cast Seen? NONE SEEN NONE SEEN #/LPF Performing Lab: see note ML - [facility] LB CULTURE URINE Reviewed date:01/16/2024 05:00:27 PM Interpretation: Performing Lab: Notes/Report: [facility] , Urine Culture See Below For Report [place] Count Antibiotic Interpretation JESSIE Status Organism: 1.1 Isolated O:ESCCOL Urine Culture Urine Culture See Below For Report [place] Count Antibiotic Interpretation JESSIE Status Organism: 1.1 Isolated O:ESCCOL Urine Culture Urine Culture >100,000 [place] Count Antibiotic Interpretation JESSIE Status Organism: 1.1 Isolated O:ESCCOL Urine Culture Urine Culture See Below For Report [place] Count Antibiotic Interpretation JESSIE Status Organism: 1.1 Isolated O:ESCCOL Urine Culture Urine Culture Amikacin S <=2 F [place] Count Antibiotic Interpretation JESSIE Status Organism: 1.1 Isolated O:ESCCOL Urine Culture Urine Culture Ampicillin S <=2 F [place] Count Antibiotic Interpretation JESSIE Status Organism: 1.1 Isolated O:ESCCOL Urine Culture Urine Culture Ampicillin/Sulbactam S <=2 F [place] Count Antibiotic Interpretation JESSIE Status Organism: 1.1 Isolated O:ESCCOL Urine Culture Urine Culture Cefazolin S <=4 F [place] Count Antibiotic Interpretation JESSIE Status Organism: 1.1 Isolated O:ESCCOL Urine Culture Urine Culture Ceftazidime S <=1 F [place] Count Antibiotic Interpretation JESSIE Status Organism: 1.1 Isolated O:ESCCOL Urine Culture Urine Culture Ceftriaxone S <=1 F [place] Count Antibiotic Interpretation JESSIE Status Organism: 1.1 Isolated O:ESCCOL Urine Culture Urine Culture Ciprofloxacin S <=0.25 F [place] Count Antibiotic Interpretation JESSIE Status Organism: 1.1 Isolated O:ESCCOL Urine Culture Urine Culture Ertapenem S <=0.5 F [place] Count Antibiotic Interpretation JESSIE Status Organism: 1.1 Isolated O:ESCCOL Urine Culture Urine Culture Gentamicin S <=1 F [place] Count Antibiotic Interpretation JESSIE Status Organism: 1.1 Isolated O:ESCCOL Urine Culture Urine Culture Imipenem S <=0.25 F [place] Count Antibiotic Interpretation JESSIE Status Organism: 1.1 Isolated O:ESCCOL Urine Culture Urine Culture Levofloxacin S <=0.12 F [place] Count Antibiotic Interpretation JESSIE Status Organism: 1.1 Isolated O:ESCCOL Urine Culture Urine Culture Nitrofurantoin S <=16 F [place] Count Antibiotic Interpretation JESSIE Status Organism: 1.1 Isolated O:ESCCOL Urine Culture Urine Culture Tobramycin S <=1 F [place] Count Antibiotic Interpretation JESSIE Status Organism: 1.1 Isolated O:ESCCOL Urine Culture Urine Culture Trimethoprim/Sulfame thox azole S <=20 F [place] Count Antibiotic Interpretation JESSIE Status Organism: 1.1 Isolated O:ESCCOL Urine Culture Urine Culture Piperacillin/Tazobac chandler S <=4 F [place] Count Antibiotic Interpretation JESSIE Status Organism: 1.1 Isolated O:ESCCOL Urine Culture Performing Lab: see note SEE REPORT - Scudding Inspector Id information not found for OBX-specific sales producer legend ML - [facility] MM tomosynthesis screening B I Reviewed date:09/09/2024 06:58:39 PM Interpretation: Performing Lab: Notes/Report: Source Facility: [place] [address] Mammography Report Signed Patient: ELISA LEUNG MR#: [id number] : 1960 Acct:[id number] Age/Sex: 64 / F ADM Date: 09/08/24 Loc: MAMMO Attending Dr: Emi Friedman M.D. Ordering Physician: Emi Friedman M.D. Results: Date of Service: 09/08/24 Follow Up: Procedure(s): MM tomosynthesis screening BI Accession Number(s): [id number] cc: Emi Friedman M.D. Patient Name: ELISA LEUNG MR#: [id number] : 1960 Exam Date: 09/08/2024 Ordering Doctor: DR Emi Friedman . RADIOLOGY REPORT PROCEDURE: MM TOMOSYNTHESIS SCREENING BI COMPARISON: MM TOMOSYNTHESIS SCREENING BI, 07/02/2023. MG MAMM SCREEN 3D DECLAN CAD, 06/27/2022. MG MAMM SCREEN 3D DECLAN CAD, 05/19/2021. MG MAMM SCREEN DECLAN W CAD, 06/17/2016. INDICATIONS: Screening Calculator Name NCI Breast Cancer Risk Assessment Tool 5 Year Breast Cancer Risk 1.60% Lifetime Breast Cancer Risk 7.30% Personal Breast Cancer No Personal Ovarian Cancer No Treatments None Family Cancers None LOCATION: [facility] BREAST COMPOSITION: The breasts are almost entirely fatty. FINDINGS: DIAGNOSTIC CATEGORY 2--BENIGN FINDING: [...] BIOPSIED. Dictated by: Franco Tompkins M.D. on 09/09/2024 at 16:07 Approved by: Franco Tompkins M.D. on 09/09/2024 at 16:15 Dictated By: Franco Tompkins M.D. Signed By: 09/09/24 1616 DD/ 1615 TD/TT: Business Machine Mechanic: [place] [address] Mammography Report Signed Patient: ZEINAB LEUNG RA MR#: [id number] : 1960 Acct:[id number] Age/Sex: 64 / F ADM Date: 09/08/24 Loc: MAMMO Attending Dr: Agata Friedman M.D. Ordering Physician: Emi Friedman M.D. Results: Date of Service: 09/08/24 Follow Up: Procedure(s): MM tomosynthesis screening BI Accession Number(s): [id number] cc: Emi Friedman M.D. Patient Name: ELISA LEUNG MR#: [id number] : 1960 Exam Date: 09/08/2024 Ordering Doctor: DR Emi Friedman . RADIOLOGY REPORT PROCEDURE: MM TOMOSYNTHESIS SCREENING BI COMPARISON: MM TOMOSYNTHESIS SCREENING BI, 07/02/2023. MG MAMM SCREEN 3D DECLAN CAD, 06/27/2022. MG MAMM SCREEN 3D DECLAN CAD, 05/19/2021. MG MAMM SCREEN DECLAN W CAD, 06/17/2016. INDICATIONS: Screening Calculator Name NCI Breast Cancer Risk Assessment Tool 5 Year Breast Cancer Risk 1.60% Lifetime Breast Canc er Risk 7.30% Personal Breast Canc er No Personal Ovarian Can cer No Treatments None Family Cancers None LOCATION: [facility] BREAST COMPOSITION: The breasts are almost entirely fatty. FINDINGS: DIAGNOSTIC CATEGORY 2--BENIGN FINDING: RIGHT BREAST: No significant suspicious finding. Scattered benign-appearing calcifications are present. No significant change has occurred. LEFT BREAST: No significant suspicious finding. Scattered benign-appearing calcifications are present. No significant change has occurred. RECOMMENDATIONS: ROUTINE MAMMOGRAM AN D CLINICAL EVALUATION IN 12 MONTHS. PLEASE NOTE: A VANE L MAMMOGRAM DOES NOT EXCLUDE THE POSSIBILITY OF BREAST CANCER. A CLINICALLY SUSPICIOUS PALPABLE LUMP SHOULD BE BIOPSIED. Dictated by: Franco Tompkins M.D. on 09/09/2024 at 16:07 Approved by: Franco Tompkins M.D. on 09/09/2024 at 16:15 Dictated By: Franco Tompkins M.D. Signed By: 09/09/24 1616 DD/ 1615 TD/TT: Business Machine Mechanic: Vitamin B12 Reviewed date:09/10/2024 07:56:19 AM Interpretation: Performing Lab: Notes/Report: [facility] , Vitamin B12 >2000 232-1245 pg/mL Performed at: - [facility] Director Of Clinical Services: Miki Murphy PhD, Phone: [phone] [address] [place], [place] [id number] Performing Lab: see note - [facility] LB GLYCOHEMOGLOBIN A1C Reviewed date:09/08/2024 07:44:33 PM Interpretation: Performing Lab: Notes/Report: [facility] , Glycohemoglobin A1C 5.5 4.5-6.2 % > 7.0 ADA RECOMMENDED LIMIT 4.0 - 6.0 ACTION SUGGESTED ADA THERAPEUTIC TARGET < 7.0 Estimated Average Glucose 111 Performing Lab: see note ML - [facility] LB Reason For Referral Diagnosis 1 Choking (T17.308A) Referral Organization [facility] gutierrez Montanez Referring Provider First Name EMI Referring Provider Last Name ELDER Referring Provider Speciality [facility] sandra Referred Provider [facility], Speech Therapy Referred Provider Specialty Speech and l rupa therapist Referral Priority Routine Diagnosis 1 Skin cancer screenin g (Z12.83) Referral Organization [facility] Medicine Referring Provider First Name Lino Referring Provider Last Name Elder Referring Provider Speciality [facility] sandra Referred Provider Jeny Bear Referred Provider Specialty Dermatology Referral Priority Routine Medications Medication SIG (Take, Route, Frequency, Duration) Notes Start Date End Date Status Fish Oil 1200 MG 1 capsule Orally Once a day Active Estriol Vaginal Cream Estriol 3mg/gm 1 gram vaginally daily Active Blood Glucose Meter -- Use glucose monitor daily to monitor glucose lever dx-E11.9 for 365 days One Touch is covered by insurance 07/11/2024 Active Biotin 67611 MCG 1 tablet Orally Once a day Active True Metrix Blood Glucose Test - USE WITH METER TO TEST BLOOD SUGAR DAILY for 90 days DX: E11.9 Active Losartan Potassium 25 MG 1 tablet Orally Once a day for 30 day(s) 12/31/2024 Active tiZANidine HCl 4 MG TAKE 2 TABLETS BY MOUTH AT BEDTIME NEEDED for 90 days Active Test Strips - use one strip daily to monitor glucose level dx=E11.9 for 90 days one touch covered under insurance 07/11/2024 Active levoFLOXacin 750 MG 1 tablet Orally Once a day for 10 day(s) 10/10/2024 Active Lancets - use one lancet daily to monitor glucose level dx-E11.9 for 90 days one touch covered under insurance 07/11/2024 Active Ibuprofen 800 MG 1 tablet with food or milk as needed Orally Three times a day PRN Active Gabapentin 300 MG TAKE 1 CAPSULE BY MOUTH IN THE MORNING AND 3 CAPSULES AT BEDTIME for 30 Active Flonase Allergy Relief 50 MCG/ACT 1 spray in each nostril Nasally Once a day Active Vitamin D3 125 MCG (5000 UT) 1 tablet Orally Once a day Active Vitamin C 1000 MG 1 tablet Orally Once a day Active TRUEplus Lancets 33G - USE DIRECTED FOR 90 DAYS for 30 Active Multivitamin Adults 50+ - as directed Orally Active Metoprolol Succinate ER 100 MG 1 tablet Orally bid for 90 days Active metFORMIN HCl 500 MG TAKE 1 TABLET BY MOUTH TWICE A DAY WITH A MEAL FOR 90 DAYS for 90 Active Magnesium 250 MG 2 tablets Orally Once a day Active Loratadine 10 MG 1 tablet Orally Once a day Active Benadryl Allergy 25 MG 1 tablet at bedtime as needed Orally Once a day Active Aspirin Low Dose 81 MG TAKE 1 TABLET BY MOUTH EVERY DAY for 90 Active Stool Softener 100 MG 1 capsule as neede d Orally Once a day Active ALPRAZolam 0.25 MG TAKE 1 TABLET BY MOUTH 3 TIMES A DAY NEEDED FOR 30 DAYS for 25 12/08/2024 Active Rosuvastatin Calcium 40 MG TAKE 1 TABLET BY MOUTH EVERY DAY FOR 30 DAYS for 90 Active Advanced Collagen Ac tive Acyclovir 800 MG TAKE 1 TABLET BY MOUTH EVERY DAY FOR 30 DAYS for 90 Active Ozempic (2 MG/DOSE) 8 MG/3ML inject 2mg Subcutaneous once weekly 10/21/2024 Active Omeprazole 40 MG 1 capsule 30 minutes before morning meal Orally Once a day for 30 day(s) Active Immunizations Vaccine Route Administration Date Status Comme nts Flu, Flucelvax (7594-7447) (50202) 6 mos +, single-dose syringe IM Intramuscular 05/30/2023 Administered Flu, Flucelvax (58115) 6 mos and older, single-dose syringe IM Intramuscular 06/13/2024 Administered Pneumococcal (Pneumovax 23) IM Intramuscular 06/13/2024 Administered Social History Tobacco Use: Social History Observation Description Date Details (start date - stop date) Former Smoker 08/06/1976 - 08/06/2007 Tobacco Use/Smoking Question Answer Notes Patient is a former smoker When did you start smoking? 08/06/1976 When did you stop smoking? 08/06/2007 Alcohol Screen (Audit-C) Question Answer Notes Did you have a drink containing alcohol in the p ast year? No Points 0 Interpretation Negative AUDIT-C (Standard) Question Answer Notes Did you have a drink containing alcohol in the p ast year? No Points 0 Interpretation Negative Problems Problem Type SNOMED Code ICD Code Onset Dates Problem Status W/U Status Risk Notes Problem Malignant melanoma of skin (63059723) Malignant melanoma of skin, unspecified (C43.9) Active confirmed Problem 78403621 Generalized anxiety disorder (F41.1) Active confirmed Problem 80746187 Other osteoporosis with current pathological fracture, unspecified site, sequela (M80.80XS) Active confirmed Problem Palpitations (79983562) Palpitations (R00.2) Active confirmed Problem Hyperlipidemia (17799985) Hyperlipidemia (E78.5) Active confirmed Problem Hypertension (04195502) Hypertension (I10) Active confirmed Problem Osteoarthritis (966057000) Osteoarthritis (M19.90) Active confirmed Problem Anxiety (46806794) Anxiety (F41.9) Active confirmed Problem Osteoarthritis of knee (817529006) Knee osteoarthritis (M17.9) Active confirmed Problem Vitamin D deficiency (31833498) Vitamin D deficiency (E55.9) Active confirmed Problem Acute sinusitis (62425862) Acute sinusitis (J01.90) Active confirmed Problem Osteoporosis (80179395) Osteoporosis (M81.0) Active confirmed Problem Well adult (934802304) Well adult (Z00.00) Active confirmed Problem Memory loss (68894482) Memory loss (R41.3) Active confirmed Problem Lumbar radicular pain (8726770526) Lumbar radicular pain (M54.16) Active confirmed Problem Spondylolysis of cervical spine (575828244) Cervical spondylolysis (M43.02) Active confirmed Problem Chronic gastritis (0630520) Chronic gastritis (K29.50) Active confirmed Problem 74690237 Type 2 diabetes mellitus with diabetic neuropathy, without long-term current use of insulin (E11.40) Active confirmed Vital Signs Temperature 98.9 degrees Fahrenheit 10/10/2024 Blood pressure diastolic 70 mm Hg 12/31/2024 Height 64 in 12/31/2024 Blood pressure systolic 112 mm Hg 12/31/2024 Weight 146.2 lbs 12/31/2024 BMI 25.09 kg/m2 12/31/2024 Procedures Procedure Date Ordered Date Performed Result Body Sit e CARDIO Stress Test - Cardiolite 12/31/2024 N/A Encounters Encounter Location Date Provider Diagnosis [facility] [address] [place] [address] 09/11/2024 Lino Friedman Lumbar radicular ayleen n M54.16 [facility] [address] [place] [address] 12/31/2024 Lino Friedman Malignant melanoma o f skin, unspecified C43.9 ; Type 2 diabetes mellitus with diabetic neuropathy, without long-term current use of insulin E11.40 ; Hypertension I10 ; Chest pain R07.9 and Lumbar radicular pain M54.16 [facility] [address] [place] [address] 03/12/2024 Lino Hoy Hyperlipidemia E78.5 ; Lumbar radicular pain M54.16 ; Type 2 diabetes mellitus with diabetic neuropathy, without long-term current use of insulin E11.40 and Knee osteoarthritis M17.9 [facility] [address] [place] [address] 08/20/2024 Lino Hogany Type 2 diabetes bobby itus with diabetic neuropathy, without long-term current use of insulin E11.40 and Well adult Z00.00 [facility] [address] [place] [address] 10/10/2024 Lino Friedman [facility] [address] [place] [address] 06/13/2024 Lino Edisony Lumbar radicular ayleen n M54.16 ; Type 2 diabetes mellitus with diabetic neuropathy, without long-term current use of insulin E11.40 ; Hypertension I10 and Encounter for immunization Z23 [facility] [address] [place] [address] 12/01/[address] [facility] [address] [place] [address] 12/08/2024 Lino Hogany Lumbar radicular ayleen n M54.16 [facility] [address] [place] [address] 01/01/2025 Lino Friedman [facility] [address] [place] [address] 2025 Lino thalia [facility] [address] [place] [address] 01/05/2025 Lino Hogany [facility] [address] [place] [address] 10/08/2024 Lino Hoy Lumbar radicular ayleen n M54.16 [facility] [address] [facility] [place] [address] 10/10/2024 Lino Hoy [facility] [address] [facility] [place] [address] 10/10/[address] [facility] [address] [facility] [place] [address] 10/20/2024 Lino Hoy Type 2 diabetes bobby itus with diabetic neuropathy, without long-term current use of insulin E11.40 [facility] [address] [place] [facility] [place] [place] [address] 11/07/2024 Lino Hoy Lumbar radicular ayleen n M54.16 [facility] [address] [place] [facility] [place] [place] [address] 11/19/2024 Lino Edisony [facility] [address] [place] [facility] [place] [place] [address] 08/28/[address] [facility] [address] [facility] [place] [address] 09/08/2024 Lino Hoy Lumbar radicular ayleen n M54.16 [facility] [address] [place] [facility] [place] [place] [address] 09/08/2024 Lino Hogany Vitamin B12 deficien cy E53.8 [facility] [address] [facility] [place] [address] 09/09/[address] [facility] [address] [facility] [place] [address] 09/09/2024 Lino Hoy [facility] [address] [facility] [place] [address] 09/09/[address] [facility] [address] [facility] [place] [address] 07/09/2024 Lino Hoy Lumbar radicular ayleen n M54.16 [facility] [address] [facility] [place] [address] 07/10/2024 Lino Friedman Type 2 diabetes bobby itus with diabetic neuropathy, without long-term current use of insulin E11.40 [facility] [address] [place] [facility] [place] [address] 07/11/2024 Lino Hoy [facility] [address] [place] [facility] [place] [place] [address] 08/08/2024 Lino Hoy Lumbar radicular ayleen n M54.16 [facility] [address] [place] [facility] [place] [place] [address] 08/20/2024 Lino Hoy Osteoporosis M81.0 [facility] [address] [place] [facility] [place] [place] [address] 08/20/2024 Lino Friedman Skin cancer screenin g Z12.83 [facility] [address] [place] [address] 03/03/[address] [facility] [address] [place] [address] 03/31/2024 Lino Hoy [facility] [address] [place] [facility] [place] [place] [address] 04/10/2024 Lino Hoy Lumbar radicular ayleen n M54.16 [facility] [address] [place] [address] 05/12/2024 Lino Hoy Lumbar radicular ayleen n M54.16 [facility] [address] [place] [place] [place] [address] 05/28/2024 Lino Hoy [facility] [address] [place] [facility] [place] [place] [address] 06/19/2024 Lino Hoy Lumbar radicular ayleen n M54.16 [facility] [address] [place] [place] [place] [address] 02/05/2024 EMI HOY [facility] [address] [place] [facility] [place] [place] [address] 02/05/2024 Lino Edisony [facility] [address] [place] [facility] [place] [place] [address] 02/06/2024 EMI HOY UTI (urinary tract infection) N39.0 [facility] [address] [place] [address] 02/06/2024 EMI HO[address] Choking T17.308A [facility] [address] [place] [address] 02/12/2024 EMI HOY Choking T17.308A [facility] [address] [place] [address] 02/12/[address] [facility] [address] [place] [address] 01/11/[address] [facility] [address] [place] [address] 01/11/[address] [facility] [address] [place] [address] 01/14/2024 EMI HOY UTI (urinary tract infection) N39.0 [facility] [address] [place] [address] 01/16/[address] [facility] [address] [place] [address] 01/20/[address] [facility] [address] [place] [address] 01/28/2024 EMI HOY UTI (urinary tract infection) N39.0 [facility] [address] [place] [address] 01/09/2024 EMI HOY Urinary tract infect ion N39.0 [facility] [address] [place] [address] 01/10/2024 EMI HOY Assessments Encounter Date Diagnosis (ICD Code) Assessment Notes Treatment Notes Treatment Clinical Notes Section Notes 03/12/2024 Hyperlipidemia (ICD-10 - E78.5) dieting 03/12/2024 Lumbar radicular pain (ICD-10 - M54.16) neeeding injection -mayneed mri if not better - defers on PT 06/13/2024 Lumbar radicular pain (ICD-10 - M54.16) 06/13/2024 Type 2 diabetes mellitus with diabetic neuropathy, without long-term current use of insulin (ICD-10 - E11.40) 08/20/2024 Well adult (ICD-10 - Z00.00) 08/20/2024 Type 2 diabetes mellitus with diabetic neuropathy, without long-term current use of insulin (ICD-10 - E11.40) 09/11/2024 Lumbar radicular pain (ICD-10 - M54.16) 12/31/2024 Malignant melanoma of skin, unspecified (ICD-10 - C43.9) seeing derm 12/31/2024 Type 2 diabetes mellitus with diabetic neuropathy, without long-term current use of insulin (ICD-10 - E11.40) 01/09/2024 Urinary tract infection (ICD-10 - N39.0) 01/14/2024 UTI (urinary tract infection) (ICD-10 - N39.0) 01/28/2024 UTI (urinary tract infection) (ICD-10 - N39.0) 02/06/2024 UTI (urinary tract infection) (ICD-10 - N39.0) 02/06/2024 Choking (ICD-10 - T17.308A) 02/12/2024 Choking (ICD-10 - T17.308A) 04/10/2024 Lumbar radicular pain (ICD-10 - M54.16) 05/12/2024 Lumbar radicular pain (ICD-10 - M54.16) 06/19/2024 Lumbar radicular pain (ICD-10 - M54.16) 07/09/2024 Lumbar radicular pain (ICD-10 - M54.16) 07/10/2024 Type 2 diabetes mellitus with diabetic neuropathy, without long-term current use of insulin (ICD-10 - E11.40) 08/08/2024 Lumbar radicular pain (ICD-10 - M54.16) 08/20/2024 Osteoporosis (ICD-10 - M81.0) 08/20/2024 Skin cancer screening (ICD-10 - Z12.83) 09/08/2024 Lumbar radicular pain (ICD-10 - M54.16) 09/08/2024 Vitamin B12 deficiency (ICD-10 - E53.8) 10/08/2024 Lumbar radicular pain (ICD-10 - M54.16) 10/20/2024 Type 2 diabetes mellitus with diabetic neuropathy, without long-term current use of insulin (ICD-10 - E11.40) 11/07/2024 Lumbar radicular pain (ICD-10 - M54.16) 12/08/2024 Lumbar radicular pain (ICD-10 - M54.16) 06/13/2024 Hypertension (ICD-10 - I10) didnt tolerate loer metoprolol - heart racing - having her cut lsinoprl in half and update next week 12/31/2024 Hypertension (ICD-10 - I10) 03/12/2024 Type 2 diabetes mellitus with diabetic neuropathy, without long-term current use of insulin (ICD-10 - E11.40) 110- 115's 06/13/2024 Encounter for immunization (ICD-10 - Z23) 03/12/2024 Knee osteoarthritis (ICD-10 - M17.9) njetinos today 12/31/2024 Chest pain (ICD-10 - R07.9) 12/31/2024 Lumbar radicular pain (ICD-10 - M54.16) 06/13/2024 Other Recommended to rest and use a heating pad on the area. Take NSAIDs for pain as needed Plan Of Treatment Pending Test Test Name Order Date Barium Swallow 12/27/2023 Barium : Upper GI Series 02/06/2024 CMP (COMPLETE METABOLIC PANEL) UA (URINALYSIS, COMPLETE) 01/09/2024 UA (URINALYSIS, COMPLETE) 01/28/2024 UA (URINALYSIS, COMPLETE) 01/14/2024 CULTURE, URINE w SENSITIVITY 01/09/2024 HEMOGLOBIN A1C (GLYCO) 08/20/2024 HEMOGLOBIN A1C (GLYCO) 09/05/2023 IRON, TOTAL 08/20/2024 IRON, TOTAL 09/05/2023 LIPID PANEL (CHOL/TRIG/HDL/LDL) 08/20/19 LIPID PANEL (CHOL/TRIG/HDL/LDL) 09/05/19 24 CBC WITH DIFF 09/05/2023 CBC WITH DIFF 08/20/2024 UA (URINALYSIS, MICRO ONLY) 01/28/2024 VITAMIN D, 25 LEVEL (TOTAL) 08/20/2024 VITAMIN D, 25 LEVEL (TOTAL) 09/05/2023 XR Foot LT (3 views) * 01/05/2023 MAMM Mammograms CAD 05/30/2023 MRI Brain w/wo contrast * 12/27/2023 CARDIO Stress Test - Cardiolite 01/01/20 Urinalysis Microscopic 12/27/2023 Urine Culture 01/14/2024 Insulin Level 09/05/2023 .Urinalysis Microscopic Only 01/09/2024 CULTURE URINE 01/28/2024 URINE MICROSCOPIC ONLY 01/14/2024 VITAMIN B12 09/08/2024 US KIDNEYS BLADDER 02/06/2024 XR ANKLE LT MIN 3 V 01/05/2023 XR ANKLE RT MIN 3 VIEWS 01/05/2023 XR DEXA BONE DENSITY 08/20/2024 XR KNEE LT 3V 01/05/2023 XR LSPINE 2_3 VIEWS 05/30/2023 THYROID PANEL (T4/TSH/FREE T3) 4 THYROID PANEL (T4/TSH/FREE T3) 5 MM screening mammo BI 08/20/2024 CMP (COMP MET GARCIA) w/eGFR CKD-EPI 2024 Insurance Providers Payer Name Payer Address Payer Phone Subscriber Number Group Number Insured Name Patient Relationship to Insured Coverage Start Date Coverage End Date [employer] [address] [facility] [place] [id number] Elisa Leung Self - patient is the insured Medications Administered Medication Instructions Date of Administration Dosage Notes Kenalog-40 01/05/2023 120 mg 120 Kenalog-40 02/09/2023 80 mg 80 Kenalog-40 05/30/2023 120 mg 120 Kenalog-40 09/05/2023 120 mg 120 Kenalog-40 12/27/2023 120 mg Kenalog-40 03/12/2024 80 mg 80 Ketorolac Tromethamine 01/05/2023 60 mg 60 Ketorolac Tromethamine 02/09/2023 60 mg 60 Ketorolac Tromethamine 05/30/2023 60 mg 60 Ketorolac Tromethamine 09/05/2023 60 mg 60 Ketorolac Tromethamine 12/27/2023 60 mg Ketorolac Tromethamine 03/12/2024 60 mg 60 Ketorolac Tromethamine 06/13/2024 60 mg Ketorolac Tromethamine 09/11/2024 60 mg Ketorolac Tromethamine 12/31/2024 60 mg Orphenadrine Citrate 01/05/2023 60 mg 60 Orphenadrine Citrate 02/09/2023 60 mg 60 Orphenadrine Citrate 05/30/2023 60 mg 60 Orphenadrine Citrate 09/05/2023 60 mg 60 Orphenadrine Citrate 12/27/2023 60 mg Orphenadrine Citrate 03/12/2024 60 mg 60 Orphenadrine Citrate 06/13/2024 30 mg Orphenadrine Citrate 12/31/2024 60 mg Triamcinolone 40 mg/ml 06/13/2024 80 mg Triamcinolone 40 mg/ml 09/11/2024 80 mg Triamcinolone 40 mg/ml 12/31/2024 80 mg Medical (General) History Medical History History ICD Code migraine headaches osteoporosis melanoma Cervical spondylolysis M43.02 Tinnitus H93.19 Palpitations R00.2 Lumbar disc disease M51.9 Lumbar radicular pain M54.16 Chronic gastritis K29.50 Anxiety F41.9 Insomnia G47.00 Vertigo R42 Migraine headache G43.909 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 Colon polyp K63.5 Near syncope R55 Vitamin D deficiency E55.9 Osteoporosis M81.0 Hyperlipidemia E78.5 Surgical History Surgery Date(Month/Year) pin in shoulder hysterectomy deviated septum repair Spinal Stimulator 08/22/22 Epidural injection 08/01/22 Discectomy and fusion C5-6, C6-7 10/25 Hemorrhoidectomy 05/27 tubal ligation 1985 pelvic fracture 1989 left wrist fracture 1989 breast reduction 1990 stress fracture right foot 1999 melanoma removal chest 2011 right ankle fracture 2012 removal hardware right ankle 2013 repair left navicular bone foot 2019 Hospitalization History Reason Date(Month/Year) see above
--- OUTSIDE RECORDS SUMMARY | 2025-01-06 07:17 | XMS_ITS | CCD ---
Author Organization [facility] Care Team Providers Care Cuffer Name Role Phone Emi Friedman Primary Care Physician [phone] Emi Friedman Referring Unavailable Rush, Sophy Attending [...] Admitting Unavailable Meza, Derick A Admitting Unavailable Derrick, Derick A Attending Unavailable CHANTALE ., DR MIDDLETON Admitting Unavailable CHANTALE ., DR IMDDLETON Attending Unavailable HOY ., DR MIDDLETON Primary Care Unavailable CHANTALE ., DR MIDDLETON Consulting Unavailable LAKHWINDER, DR FRANCO Sethi Consulting Unavailable MARISOL ., DR UNDERWOOD Admitting Unavaillinda e MARISOL ., DR UNDERWOOD Attending Unavailabl e CHANTALE ., DR MIDDLETON Primary Care Unavailable MARISOL ., DR UNDERWOOD Consulting Unavailabl e HOY [...] Unavailable HOY ., DR MIDDLETON Consulting Unavailable ZIANTOINE, DR FRANCO Sethi Consulting Unavailable Emi Friedman MD Primary Care Provider [phone] Emi Friedman MD Primary Care Provider [phone] EMI LLOYD Attending Unavailable EMI LLOYD Referring Unavailable EMI FRIEDMAN Primary Care Unavailable EMI FRIEDMAN Referring Unavailable EMI FRIEDMAN Primary Care Unavailable Allergies Allergy Classification Reported Allergen(s) Allergy Type Date of Onset Reaction(s) Facility (14 sources) Adhesive Tape; Translations: [Tape] Drug allergy Eruption of skin (disorder) [facility] (16 sources) Penicillin; Translations: [penicillin] Drug Allergy 03-27-20 19 Weal (disorder) [facility] (14 sources) Sulfonamides (Antibiotic); Translations: [sulfa drugs] Drug allergy Weal (disorder) [facility] (1 source) Desonide Drug Allergy 03-27-20 19 [facility] (1 source) natural latex rubber Drug allergy (disorder) [facility] (2 sources) Sulfonamides (Antibiotic) Drug allergy (disorder) [facility] (4 sources) Adhesive agent; Translations: [ADHESIVE] Propensity to adverse reactions to drug 12-22-19 Other (See Comments) [facility] (3 sources) Penicillins; Translations: [PENICILLINS] Propensity to adverse reactions to drug 08-22-19 18 Hives, Itching [facility] (4 sources) Sulfonamides (Antibiotic); Translations: [SULFA (SULFONAMIDE ANTIBIOTICS)] Propensity to adverse reactions to drug 08-22-19 Hives, Itching [facility] (2 sources) Amitriptyline; Translations: [AMITRIPTYLINE] Drug Allergy 12-23-19 Hallucinations [facility] (2 sources) Latex; Translations: [LATEX] Propensity to adverse reactions to drug 12-23-19 Other (See Comments) [facility] (1 source) Penicillins Propensity to adverse reactions to drug 08-22-19 Hives, Itching [facility] Medications Current Medications Medication Drug Class(es) Dates Sig (Normalized) Sig (Original) acyclovir 800 mg oral tablet (16 sources) Herpesvirus Nucleoside Analog DNA Polymerase Inhibitor, Herpes Simplex Virus Nucleoside Analog DNA Polymerase Inhibitor, Herpes Zoster Virus Nucleoside Analog DNA Polymerase Inhibitor Start: 05-10-2021 take 1 tablet by mouth once daily acyclovir 800 mg Tab TAKE 1 TABLET BY MOUTH DAILY, Other (see comment) Start Date: 05/10/21 Status: Ordered ALPRAZolam 0.25 mg oral tablet (16 sources) Benzodiazepine Start: 05-13-2020 ALPRAZolam (XANAX) 0.25 mg tablet 05/13/2020 Active ascorbic acid 500 mg oral tablet (3 sources) Vitamin C take 1 tablet by mouth in the morning ascorbic acid (VITAMIN C) 500 mg tablet Take 1 tablet (500 mg total) by mouth in the morning. Active aspirin 81 mg delayed release oral tablet (16 sources) Platelet Aggregation Inhibitor, Nonsteroidal Anti-inflammatory Drug [...] Status: Ordered biotin 1 mg oral tablet (16 sources) Start: 10-03-2021 biotin 1 mg ta blet Take 1,000 mcg by mouth. 0 10/03/2021 Active Start: 10-03-2021 take 1 tablet by hugo th in the morning biotin 1 mg tablet Take 1 tablet (1 mg total) by mouth in the morning. 10/03/2021 Active cetirizine hydrochloride 10 mg oral tablet (3 sources) Histamine-1 Receptor Antagonist take 1 tablet by mouth in the morning cetirizine (ZyrTEC) 10 mg tablet Take 1 tablet (10 mg total) by mouth in the morning. Active cholecalciferol 0.125 mg oral capsule (3 sources) Vitamin D take 1 capsule by mouth in the morning cholecalciferol, vitamin D3, (VITAMIN D3) 5,000 units capsule Take 1 capsule (5,000 Units total) by mouth in the morning. Active take 1 capsule by mouth once vikas ly cholecalciferol, vitamin D3, (VITAMIN D3) 5,000 units capsule Take 5,000 Units by mouth daily. 0 Active diphenhydrAMINE hydrochloride 25 mg oral tablet (1 source) Histamine-1 Receptor Antagonist take 1 tablet by mouth once daily as needed for sleep diphenhydrAMINE (SOMINEX) 25 mg tablet Take 1 tablet (25 mg total) by mouth nightly as needed for sleep. Active docusate sodium 100 mg oral capsule (4 sources) End: 025 take 1 capsule by mouth in the morning, then take 1 capsule by mouth at bedtime docusate sodium (COLACE) 100 mg capsule Take 1 capsule (100 mg total) by mouth in the morning and 1 capsule (100 mg total) before bedtime. Active Fish Oils (13 sources) Start: 021 take 1200 mg by mouth once daily Fish Oil 1,200 mg, Oral, Daily, Refill(s) 0, Prophylaxis Start Date: 05/10/21 Status: Ordered fluticasone propionate 0.05 mg/actuat metered dose nasal spray (10 sources) Corticosteroid Start: fluticasone 0.05 mg/inh Nasal [place] 1 spray(s), Nasal, Daily, Refill(s) 0, Allergy symptoms Start Date: 05/20/21 Status: Ordered take 1 spray(s) nasa l route in the morning fluticasone propionate (FLONASE) 50 mcg/actuation nasal spray Administer 1 spray into each nostril in the morning. Active take 1 spray(s) nasal route once daily fluticasone propionate (FLONASE) 50 mcg/actuation nasal spray Administer 1 spray into each nostril daily. 0 Active fluticasone 0.05 mg/inh Nasal [place] (6 sources) Start: 05-20-2021 fluticasone 0. 05 mg/inh Nasal [place] 1 spray(s), Nasal, Daily, Refill(s) 0, Allergy symptoms Start Date: 05/20/21 Status: Ordered gabapentin 300 mg oral capsule (16 sources) Anti-epileptic Agent Start: 05-10-2021 take 1 capsule by mouth in the morning, then take 1 capsule by mouth at bedtime gabapentin (NEURONTIN) 300 mg capsule Take 1 capsule (300 mg total) by mouth in the morning and 1 capsule (300 mg total) before bedtime. 12/13/2021 Active ibuprofen 800 mg oral tablet (7 sources) Nonsteroidal Anti-inflammatory Drug Start: 07-11-2022 ibuprofen 800 mg Tab PRN as needed for pain, as needed, Refills(s) 0 Start Date: 07/11/22 Status: Ordered lisinopril 40 mg oral tablet (16 sources) Angiotensin Converting Enzyme Inhibitor Start: 10-28-2021 take 5 mg by mouth in the morning lisinopriL (PRINIVIL,ZESTRIL ) 40 mg tablet Take 5 mg by mouth in the morning. 10/28/2021 Active Start: 10-03-2021 take 1 tablet by hugo th in the morning lisinopriL (PRINIVIL,ZESTRIL) 40 mg tablet Take 40 mg by mouth in the morning. 0 10/28/2021 Active magnesium oxide 400 mg oral tablet (1 source) take 1 tablet by mouth once daily magnesium oxide (MAGOX) 400 mg tablet Take 1 tablet (400 mg total) by mouth nightly. Active metFORMIN hydrochloride 500 mg oral tablet (20 sources) Biguanide Start: 1 take 1 tablet by mouth in the morning, then take 1 tablet by mouth at bedtime metFORMIN (GLUCOPHAGE) 500 mg tablet Take 1 tablet (500 mg total) by mouth in the morning and 1 tablet (500 mg total) before bedtime. 10/09/2021 Active 24 hr metoprolol succinate 100 mg extended release oral tablet (16 sources) beta-Adrenergic Marco Start: 2 take 1 tablet by mouth every twenty-four hours in the morning, then take 1 tablet by mouth at bedtime metoprolol succinate XL (TOPROL XL) 100 mg 24 hr tablet Take 1 tablet (100 mg total) by mouth in the morning and 1 tablet (100 mg total) before bedtime. 11/14/2021 Active Start: 10-03-2021 take 1 tablet by hugo th twice daily Metoprolol succinate 100 mg ER Tablet 100 mg, Oral, BID, High blood pressure Start Date: 10/03/21 Status: Ordered Start: 10-03-2021 take 1 tablet by hugo th twice daily Metoprolol succinate 100 mg ER Tablet 100 mg, Oral, BID, High blood pressure Start Date: 10/03/21 Status: [place] [facility] (4 sources) Start: 07-11-2022 [facility] See Instructions, collagen powder 1 scoop daily Start Date: 07/11/22 Status: Ordered vbanzitl-zjab-WE-calcium &mi ns (THERAGRAN-M) 9 mg iron-400 mcg tablet (3 sources) oygueejj-efyu-XJ -calcium &mins (THERAGRAN-M) 9 mg iron-400 mcg tablet Take 1 tablet by mouth in the morning. Active jlsiaclz-lmzx-TI -calcium &mins (THERAGRAN-M) 9 mg iron-400 mcg tablet Take 1 tablet by mouth daily. 0 Active multivit-min/folic ac/collag en (WOMEN'S MULTIVITAMIN COLLAGEN ORAL) (3 sources) multivit-min/fol ic ac/collagen (WOMEN'S MULTIVITAMIN COLLAGEN ORAL) Take by mouth. Powder, 1 scoop daily Active multivit-min/fol ic ac/collagen (WOMEN'S MULTIVITAMIN COLLAGEN ORAL) Take by mouth. Powder, 1 scoop daily 0 Active Multivitamin, Therapeutic w/ Minerals (13 sources) Start: 10-03-2021 take 1 tablet by mouth once daily Multivitamin, Therapeutic w/ Minerals 1 tab(s), Oral, Daily, Prophylaxis Start Date: 10/03/21 Status: Ordered omega 6-uud-ohd-fish oil (Fish OiL) 300-1,000 mg capsule (1 source) omega 7-agn-krd-fish oil (Fish OiL) 300-1,000 mg capsule Take 1,200 mg by mouth in the morning. Active Omeprazole (16 sources) Proton Pump Inhibitor Start: 05-23-2021 omeprazole 40 mg, Daily, Refills(s) 0, Control of stomach acid Start Date: 05/23/21 Status: Ordered Start: 06-14-2020 take 1 capsule by mo uth once daily omeprazole (PriLOSEC) 40 mg capsule TAKE 1 CAPSULE(40 MG) BY MOUTH DAILY 90 capsule 06/14/2020 Active pravastatin sodium 20 mg oral tablet (13 sources) HMG-CoA Reductase Inhibitor Start: 10-03-2021 take 1 tablet by mouth once daily at bedtime pravastatin 20 mg Tab 20 mg = 1 tab(s), Oral, Once a day (at bedtime), High cholesterol Start Date: 10/03/21 Status: Ordered rosuvastatin calcium 20 mg oral tablet (3 sources) HMG-CoA Reductase Inhibitor Start: 04-23-2020 rosuvastatin (CRESTOR) 20 mg tablet Take by mouth in the morning. 04/23/2020 Active semaglutide (OZEMPIC) 2 mg/dose (8 mg/3 mL) pen injector (1 source) semaglutide (OZEMPIC) 2 mg/dose (8 mg/3 mL) pen injector Inject 2 mg under the skin every 7 days. Sunday Active tiZANidine 4 mg oral tablet (16 sources) Central alpha-2 Adrenergic Agonist Start: 10-20-2021 tiZANidine (ZANAFLEX) 4 mg tablet Take 1 tablet (4 mg total) by mouth in the morning and 1 tablet (4 mg total) before bedtime. 2 tablets before bed. 12/13/2021 Active vitamin b12 0.1 mg oral tablet (3 sources) Vitamin B12 cyanocobalamin (VITAMIN B-12) 100 MCG tablet Take 10 tablets (1,000 mcg total) by mouth in the morning. Active Vitamin C 1000 mg oral tablet [...] Drug Class(es) Dates Sig (Normalized) Sig (Original) alendronic acid 70 mg oral tablet (8 sources) Bisphosphonate Start: 06-22-2021 End: 12-22-2024 take 1 tablet by mouth every week alendronate (FOSAMAX) 70 mg tablet Take 70 mg by mouth once a week. 10/10/2021 12/22/2024 Discontinued (Therapy completed) omega-3 fatty acids-fish oil 300-1,000 mg capsule (3 sources) End: 12-22-2024 take 1 capsule by mouth once daily omega-3 fatty acids-fish oil 300-1,000 mg capsule Take 2 g by mouth daily. 12/22/2024 Discontinued (Duplicate Listing) take 1 capsule by mouth once vikas ly omega-3 fatty acids-fish oil 300-1,000 mg capsule Take 2 g by mouth daily. 0 Active simvastatin 20 mg oral tablet (3 sources) HMG-CoA Reductase Inhibitor Start: 08-21-2017 End: 12-22-2024 take 1 tablet by mouth once daily simvastatin (ZOCOR) 20 mg tablet Take 20 mg by mouth nightly. 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 Essential hypertension (16 sources) Hypertensive disorder; Translations: [Essential (primary) hypertension] Onset: 12-22-2024 05-10-2021 Chronic Gastritis and duodenitis (13 sources) [...] (13 sources) 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 Unclassified (2 sources) Autogenerated Problem Onset: 12-01-2024 12-01-2024 Viral infection (13 sources) 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 [id number] Gh0bWw+PGhlYWQ+PE1FV XKyU32xwGYqqT3uG2FSM ElOSywgQVBQTElOSyIgb lGsZB6uiKObEMKi IC8+QM8pNXFdDbohcWDh o7A5gYA8J94zuq5eKDvo bGJ5OEIlRwXbpqncc1fa iKc3AIyhOzlpKaTm RDEhtF68TDW2oK79Qk65 pFTxrETij6rukOg1AdRl PFBnFPG1jRlpALjbh0Gm GGIfP44fpOYgy7A0 IGNvbGxhcHNlOyBlbXB0 jV2jBMffhciqm1hzxgvv Rff1on18xKXbq6F7yNZ0 B8LnnmI8ZJWdrVTy SlyxjPCYcB1tvtlrz0qn bkvkSoPoRORdEPd6AIw7 RFQjnTwqBuEpDK19CUS3 ZQSjipJcK2HuXLBh zKflYlS4o8Q3Bm0HR8BC YcnfG9QYQVBFIRwzvHJ+ TG78jh62I8QbFqriAlk7 UDAqQHO9nPT5lM4v FRPtYMeqi8D0eBL8J2Yg gmNvim6nv6gwQVZpBPbf W25ocIVad9F9ADSjoTV2 JRNcrHztOdTkxU49 Oyc+CTCucBlot4WdFuhk d6ivk8tsoPk4QxffYGOf scGqaQpeWQM1v3VaHa4k VQScoTS8vDE6qJ9d DdEhAqT6QSoaH107ZzKd eJGoEpazD33vW5SbuSI+ OQVjEuy0ILKnxUiwXR2w Q1UwXCAweaikqSMj wKajOO4mFBNsxhvcRNUf rM3qZIKwT3r4DaBuKmM4 HHhhL7TvSIYwzlygDx07 bB0hDzXzVpZ5VEfr H5PxikA4XJSijPJsCCpq KIC3I35bn9T4HDHqYJTf WCN3yBZ8bQ2dhQkkvjuw bGVmdDsgdmVydGlj FJphWDifZ357TRYxaNjv PkNvZGluZyBEYXRlOiAg MDMvMjAvMjAyMzwvdGQ+ FUPhERP1hBhzBMOw fZYePGehDe6poYzqfInz XP1mBHPxsfvtSQQqkF7u OEAyrXJvjZvjMZ2wLEEe qjsoy451XgIvOKK1 WBLxlPJbF2AteS1aJrSc URDzDIQgN7WyhBLoQJem I171QCbcEvI0RQJhevMk X5QtRBOabKroLvL3 l1P0Vu5Tq6FmxkuxW6Ga eGTpOhYnSkewMEx4O1Tb PjwvdHI+ES24RQLtTD70 GLm6KQD9yTqlJKmo GCWgW0UxhK4jMtCoVEGq ZGRkOyc+PHRhYmxlIHdp ZHRoPScxMDAlJyBzdHls HU0xYn9lCVIyGPJv cFpvwHYiUqGii7bfTTQq CDrwBJ4rxJhkI6HpjMI1 MISkg1n8Ja79J33tF0Ay dXA+LBQhtDN2yRT6 bP8sHxZhJjJ3VZrwS506 FoSphKLrPoviw8cbj7ig eDi8YrG2SPXvoyWkdVud YJU5w1SiGy87Q95l IHdpZHRoPSIxNSUiIHZh xGottq8xsL0wJx8+PGNv pQK5hGS4sL9jQgZcDbD3 OQnpU211DdBgxWBw Vlepb0umq6ggwKv8PmPu UGGyxcXulXudWYJ6u2Ww Ed01B3GrmVnnz1XcZbv5 dj29oLDfj9P6zCO4 G4PlAPVjcewtrMYowLfg RA0nOPSstdmbDOPixV7c LCUnF1j1HuKxKtW3TApu U4RabtO8TMIzuHEx ZUCxfUOOmE0bgoiwc1ge qamdRoQaPNWqGFv1CIh8 FSOnvCdbTnBuSPG6PdD2 ODX0gKUfkG4txRhz ismtgU7vJkq+WTI9nIGz iLYHPX9pNqbfuGJ+PHRk ISI0cMfzIJepFJAzuF5b NFNzV8h6IlWrSvS2 TGanK1QkvwH6UNJiePLz WBBboRMZdG7wkosqm3jx apmxDnPrESNgJSj9UYb0 LWFsaWduOiBsZWZ0 XeL0SKQ1jEHwbC4anXms bbspsO6gMop+QmlydGgg AUF1KPc1A6RjEtm5WYTa uCdoFK5mrLRhZGif Md7miRoftQazWK8rLVIm zjpii151BbZjm3ufBXVz wJQbGDktIEV8X55eq2E0 BVWcRPZmLFJ7bAF8 hS4jvPuottqmxDCaeGov btIrnOdxBKncOEuwW231 DEFqsNxlKgTwQXo1I3Aq Pcn0ZRSrqKiyRO1r mQKfQHfvVf2xyOsheLqq ZK5mPFGgnkewx021HhAs c6riSBBteDNuXJihQYY3 I04yp5Y6NCSvTGIw ZLW5hMI1jD5vnUrahuyi bGVmdDsgdmVydGljYWwt JQawR326FHKxrMvjIrOs uMo9Y2EiInn8HWDd tVphXO6yxIHzNWeuVl6t cPjwwLskVR9qKSYvxnpe o203QlIsm0kwBHTinZEi WYkvVSN4Q19zq8X0 USDkXVPwCNT6oKK9nR0y bGlnbjogbGVmdDsgdmVy qJywGBzzQIsoN496NQHm cDsnPlBhdGllbnQg KJbqXIi5P7RjTjsnjTA+ DI20IBQfJD80kLVhzYFv e1bgsCh2XwMcKFAeJTV5 oDhpWNgfn5DvRAZl R22gcTKrw2Y8CWXvpTnm uSCmByCiyUU3wX9uXWpl rigvg8dgnwkyJsnjp3lp th26xM20Z13iDYvu ZHRoPSIzMCUiIHZhbGln go5ooI5hHx6+PGNvbCB3 wFU2cE4sOMPlQiW6SQdu S156PiRjcLTfUjcf a9rmi0mtrEs4HpU8OYVs itUorZpqFBB4y0IeCi42 S93uFWmyZBNeKEPdZCTn MAAaiFzpbp6ijC1p Ii8+LVIpzUC4hEO4uF1c QlWsGbK5LXziW147LjQy lFEmWjvoI19rU6QgdER+ XPInEbd5PXBnwImn DF0qgUInIUmtXj4cVPJ1 RfVrKlStCWstF2TvTIJd ihjvduaavZY8DHAnWEXd tC32Hp1ybWogPPQc rSQMoB5jdnawq5ylbgsa VqAeUQAgSDw7IAc3WKUv zMuoErHiCSR7SzK7EOY4 kDVuvT2arKzrloai zG6mO0VfZHHowqjcGd71 zM3kOyTxFuH5UAkcHxg+ EyLDCy3HPGrvZOEGVbWo QTwvdGQ+PHRkIHN0 iHxeTEscFQGzbX8uWGSu A2o3CsYlTdD0NKfhG9Mt XKCclwmlPr83gH9jYeLi XdE0IDdyG4BawlG5 NBOvbOIiKRbiKMP8O08q q2R6QFNpXWNmBUL9aSJ0 vE5goVuarjmxqBKgtQbg dmVydGljYWwtYWxp F686JWTmgKarRmS5GcCu CmH1RiB1C4XiOwy7WAQh kOkuTY7keHIzZSfeYh3r bGrenPsoON8hOVBk sklsLZAaaO5zIAXieSOq bMxgJP2fNNZqhwqbi631 UqLhVXQ9DTBhaWKnQ8Bg bI6uIuYlYYAeSUWm N7UseJUfMKcfL566UZgr DdI3DSTigaPwS4WnQZHx mXjjOhC2i1H2Tm91BCNY ZWFyczwvdGQ+PHRk QHF0oSxlJCdtUHYsxA6c RAUjN4m4SxTrZpR0AYis D9HcHREtxbjjTr20lX5j YbUvCaL8AUxuX2Sg oeF5QTNofYQtSHryGNS6 T62og9D0TKLhUPRzLHP2 xPT2xP8frBqfqnjvmBHd dDsgdmVydGljYWwt HPnyL873VPOmmIydIxCf bWFsZTwvdGQ+PHRkIHN0 jBhsLFaeKTZgyG5wRYQn P6f3OdYlXdY3UErk Z0EaBOQdlzpuVd32yE8w ZoXmJmE6MWnqO5FcxjE2 OXGhwBQnASqkJDK5H72w o4X1NMZmCPOdWUO9 wAX5hH1oqOesklesdRXb dDsgdmVydGljYWwtYWxp S029MZZdiGpjZe65mOQx wJmbkcW6S6HjFaaj dHI+UI51PPHrAX18eQVu nIZoi0ubsAa1OuCaXRHe MWQ3cPakIYdbu1MvGHAj B28swGOvm1Q0NWFf zSwcbWJtSvJanZW1dQ0f PLeuqihdh8nvirzrGmmn m4jxue22zM25B69vOZcj ZHRoPSIzMCUiIHZh oGxqkp6clD8tIh6+PGNv dJQ3iOB1vE8tJpWiGvG2 BMdlU207WrKdbVBdPqiq m6hsw5cmyCy8RxRq SXDbgiXndPpcLWO3p1Wr Nt18Y26iECpmVPPrQLQz IJPhOOAjeWjaoe1quS7p Ii8+MV0gi7zclc30 hG36cPW+SXKnILJ1xMce QLiiIGCrzC3rVYwhAjB9 QDXiNtSidP02cKRnDUvu Vx8rvHeisWcnAY8e LZZttnkos906FrYjv4uk NXDunESjIMbyMQC2T75i d6Q5TDUaIPYwXWS6hZM0 jS2qrKvvmcfchNXp dDsgdmVydGljYWwtYWxp V595BIAuxMspToDmkTWe X8jrgvOFUW5lPhqbpDV+ NAQzDTZ0aAsuKZsw UUOdfU7qJKMlE1b7XcZl NhA2TEvrY9OczbD1CQWt cVRvYSIveFHVqJ8ebmjf p1yhdrtfXnCqFWFz RDu5LXl7YPJrnUpoZcXw HMG3UdE0JVP5gUPjmR2m vRmmcehxaY6lQkp+RklO OjwvdGQ+PHRkIHN0 mFuxKYmkDLAybQ3uOBDs V8s1EsPsYfT5CXaxT5Hy mqJ7VFScmTHeXGAzjWKY iA9wljemx9ggyfeq BdXtNGPvLHj4BMs6QKHv eFkvPlNpBOQ6CyB3WJC0 eWHkoU3uvUftkgnurY8v Oyc+TVJOOjwvdGQ+ YUDgXKM2zNvwVEueOKWn wS7nBOPsB1s6GjMfAgO2 YKklA4CabjT2DIZkhXTc AQTanUOCqD2wbiwl w5ksewmdTfEhSRWjLGr9 PUg6KBAfhFpgEjRsLBT0 MwB9FPK1zNLkcR4vwJol sduceI4bXby+UGF5 QVA2UW91SA64A8VwNbwr dGFibGU+PHRhYmxlIHdp ZHRoPScxMDAlJyBzdHls KI6zDu5kYUWcNVDv bGxh (more content not included)... Normal [facility] Coding Summary.on 10-17-2022 Coding Summary. [id number] Gh0bWw+PGhlYWQ+PE1FV CVxW69hhHDxsW7gA9NYZ ElOSywgQVBQTElOSyIgb bHoCV3wuFUjNPUx IC8+WP1xUQRzPargpOIb v3Q9tXW6D81aux5aYTwe sNG6HUEhWlXkmmhwl9by tMy5TBaeXdgiNeWh VYSwqG78BRY3gD25Nw88 lXLjgSGbt1qesRy7BqGl GPBwVRN4iImpAAbia8Po OAVvW60guKGxi2W0 IGNvbGxhcHNlOyBlbXB0 hR5zWEsjolcvn7ioiabo Uni3mq88oAQaf0Z8qAO1 R0RdukH7GNJsiNGb UdcyjIZHbN0uinpcf8cz tsycNrTsJDUmCNg6DTx9 ORFcyBoyGaLnSS03KGG4 IPUrozYrW2SjTCTr gVipOwM1o5T8Ms4JW6JN JqlhG7IJAWPLCQgbeWU+ EM57ou79Z9NoGuyeSds0 CDQrPRE2zJC4vJ4j DGZyTRydr9T0hUN2W2Es iiYgkq2ka6mhTNRjZGlt A00vgRZzw0F5SDEsoDJ6 VUVabShxNyJxoI94 Oyc+DKFmnIvhb5PoVzoe l5nhw7tdaFg9PhdtTYMx tmKdyFopCBG7h1XyXz1z MPVvaBI2cWR1nP2c CuQyPiZ3OMqgV457HvRg yEKyVbhrY25eK7JlcBC+ NYVsZnk9OGQdxGvpRO9q X5DuDUXwviojyTGw gQdmEZ4nCSBsywvcWUEz rN1sIGMpF9s7WhJvMcD0 BRfvH3MfJMCkblvjBm47 sD7jDoUdNtN3KAcp O9DdvfQ9DDCdxRYvENmn CNN1Z46fx7I1WWKgEHXr FLB3jKG5oJ1lkLlrawal bGVmdDsgdmVydGlj FOmzZKxoV344QJWdgPnj PkNvZGluZyBEYXRlOiAg MDMvMTQvMjAyMzwvdGQ+ RMAzSPY0tYerFCOd yOZlYXdaSu6pdWaheRqp OC3pPDUtlazrUKAeqE4a IUQreSJoxRtoQL8zNLDl qxhqj798KtCrGKS0 XBYyaECqX0BjbT9wYkHi LRRpXLCqM0EmuUHiQCjy L716MWvhBaC1VFFfixPq K0WwGLInhZmsXhZ9 l1M8Xz0Dz1TpbnsmY5Wu nHHsTwLqLqxiUOh8E7Az PjwvdHI+OX30MJFnYF31 VMd6WHK3eLkcZArf GQJjA5OjlF4vFoIrDPUj ZGRkOyc+PHRhYmxlIHdp ZHRoPScxMDAlJyBzdHls LN7cLg4gGGRfELFd eZjcdBIbMjUrp7zqRZXx QAltUD8kiHgcJ6JplLZ6 QGTbc0c4Xh06N62xD1Vp dXA+LWQofYB4tTO4 bJ0wDrThGiG2KLqmH800 OvNtgJNkXslxa3ehl4jv wRb4BbP3AGIqkkZanCnr ORI5l4RoKq64V04u IHdpZHRoPSIxNSUiIHZh hBenuq7wlG1nDs3+PGNv iKP5nIV2lC0cZnXmUqB6 QIetN370WbWenHVq Nklee5xom1jagUd6BgTo GIJjqoKlpDxkCRJ7r8Zy Sk33R8HmeIcyo1BdXgw8 vq46vWZqh9F8cKH6 W2ImNLOdkricyMAmcLhv XT5bGAQuyqfqYSIztE9k KPAlZ4h4RjFyUhS9YYof S3WdmlC0MMDgdEYt JAInnLWUdE6ihgsvs7az nimdMrPrPJRqUNa8CDg0 NRWijHspEuIsRFS2IcZ6 ZHZ1tICabL9wdFiw zyvzsJ9mRdl+TVC8yHIk iVPGSE7pStpvuOS+PHRk FXY4eMulNMpxQDYzjD9x NUKfX4h6YwSiBpA8 WRufM8ZqrsS7GQKrpTWo IKDxuZXIfB2sbjiqn9gf wmaqWcFeNXHfDUn0QEx9 LWFsaWduOiBsZWZ0 GfC4ZKJ4eDTfaP4xzKbc odcveM2rUqq+QmlydGgg GJN0QZv3L2EtFmm4FWPt ePlqOZ5jbXNxOCrr Ax6vxMuerCopTM9rJQNg tvcym438ZvVfy7vaNVTw eSFdKPltWCK9G38zh0U9 ERRnYKChQEV4dOP0 nF3qhRmwwoogiEMhnMxh pgWzaDenIWwcQRymW095 KJCxdKdvTsIrKGd2P1Jo Ffs2ZKCwiHuuIK1f sWOpHYmmIs4ckUmimNrl RJ0jIFMlwvits607JePv r7caTTJwbJPiLLaeTYX1 Q53mp9P7FEAbFVEl LPN6jJC6xN6djAspxbat bGVmdDsgdmVydGljYWwt LFkiJ343LMIzsJzmDdQr aAx1A9MoGlu3RIOy xLxnQB9zoEUmPTqmCh9z mLhywDifZX1vMCFhworq g626DkEsb1woBDGfsPOe IRjgANU9L00ut3W1 PZHbZBFiUXQ0iVJ9qB7a bGlnbjogbGVmdDsgdmVy hVuoVIzgBNqpM370QPYw cDsnPlBhdGllbnQg MCcwYWw5Z3TkQrkcgSP+ HC16HEIsXM39lJNwnSNe c1ltpMx7YxXyTBSxZDR0 wFzdINkyf1IvKGLv R21baNZwn1P8YGGimNsz wDOoOuVlaYJ5bB7bAZdr zqwap0xwyswfSabtf9lt ev86mW46D16bCWvk ZHRoPSIzMCUiIHZhbGln oi8tqX4kZv7+PGNvbCB3 hQE9xL5pKCVhFzF9DAbs B992UzViqDMxHmzl n4hlk4dhbZn6XcG7CATp rvAhnQceWZZ2i3PmVk11 Y50jRBftPMJwKPUoRXYx WFIdvSyyqg0aqX8b Ii8+ETUckQC2vGH1aW2d VcKpAbY7PTvdT029InEs jVJgGtooX47pO2LxhCQ+ QLEwClk5MSWriTof JJ2ezUHbCOqqWp4wIPG6 XcGdWvDnBYieB2YmDKQl pfzfoieoxVU7XBUlAJHk kG87Ov0djWdwGUYw hJLQqO6fwmbzb6iumxcj ZfIzTQQeGVt1BTg4UHBb sBfvZzSjNRZ9CcO2LIT2 fGWjlB0qoAblsliy zE9fU3IpCJUhykujBd52 yJ9xXyHqDwU1LOtzLum+ LyOHIg1QRQkxTEYEQrOf QTwvdGQ+PHRkIHN0 hAjmYXdxCYEvqP7sFVBk I7b5LzAhIpF2QNxzT7Hv LISzlrphTd34fS7fHtNi YfB4SKdoW9ZhlgJ0 ANZxbKLtKQrtBEE7P83c u0R3EXHzMMZuYYZ0fJK4 aR8ehEnbhwhrpOAeaAxf dmVydGljYWwtYWxp K434FPWtmOcnSzN6JlKk RdB2QzN5J8GmPao8OVGj pAboNA1roXAfJAbcRt2n vTfpzZhyCR5bGNKf czqtOHDpfV1fGSDikRLq qPlnMP1eCUBwfgwbe133 GxDxTRR2KGOpeTLzV5Do vO8qBfLeMJUaDBYn S3BrnMGwDJfzY584NPnr BuT4DWLwhmNlH8PjTBNj eDtcWmK4c6K1Hz73TCJL ZWFyczwvdGQ+PHRk WHQ3wZaxYOeeJKVjrW5d RGBaU3f3FiSvGcM7ZLop Z4VgUHNgugaqCf63uM1d PtElOkR8CWsuE4Bc ivJ9LEVaxRRvWJxdFQG2 V35fl0W5OXGtHCMcSZQ0 lSY3pI9egAgdidqzeQDf dDsgdmVydGljYWwt ELtxU279CFSvkSduYqFk bWFsZTwvdGQ+PHRkIHN0 cUkbAJmqRHRkoU0hMGVa S3b6UpQjAuC1ZTmh U1WoLCXokiseXx03qQ8j RwJrWtU3SWexK2SwkuG5 FAChqPSgLPiyABZ8W93v a0H1WFPuZQErQGH4 bZD2hL4omVmhhcxhjCJc dDsgdmVydGljYWwtYWxp F447QSLirVcbVz63tTEr cYqdukJ6I1FkVjek dHI+NG46IRQoEY69tACh dVNvl6ferBs6EmLwQFSg DTH7nTgfBWvai5StAQOh X37ihDIep0N0BNVh mYsvjTWbDiRemDM4aO1q ECrscwqsp3zniawfIhmr a1nice93bJ01E22rNIki ZHRoPSIzMCUiIHZh iFolcv8bxM1cHq4+PGNv bYK8mNF2cI5rYjInXtK8 HIxuM068PjEoePKkGoog b5brp2hurZg2RaEj IPYmysRxeRskMRU8o8Fm Fv21D63sYAtxJLBrDKQi TOSyEPIaxQwezn9uyA8c Ii8+EL0ur7iwxi00 dR10dPG+HKTcICJ5lGwp UByuUAWrnB0rAElkXlW3 AKVmBqYdyU17vBUmDMul My4cbOnwmRelLC2h YOImckbcw251MlLlv8ko DFEezOKqWDieZBK9N09e g3A9UAPmCEQbPBK7zUG7 lJ5blRoarmywdGKe dDsgdmVydGljYWwtYWxp W720UJYflKcqHeRdpCGa V7jcasXZMW6xQqgywBC+ VOMvVKW6xPbiHYwr IUIonP8yWWYhP5r6TzYu NkZ1ETqtR5UavdE9TKZi iTPvQWSyqMQNsW4zsshv e3yxhggwCrWgMYNc DSu5EVc4EPQkqHzhUiKh CTN0YoB3FCL4xOYqsT2j jQjhixxpjE8dOrv+RklO OjwvdGQ+PHRkIHN0 vMkxFAmbYEUtzH4gSNBv K8u7RhQtCmB1TVzdY4En oaW3QDAolDNdDTDmjRNS qI7jcmpnb2zeglen XgGxUXPoRHf0TLr9JOAm tJyqNuKyHVN8OsT9LYL7 iZZezN7hsWijtrnznB2d Oyc+TVJOOjwvdGQ+ KRPiVVL7tPyxGAffQLBa jY0vWVRnE4d3XsMwIiS8 MDfiP1VrdiG1SVRcdYPp ZGNdhPHWjA7urpnj j5dhmtlbPbFwWWHfZYb9 RMv1JKCopHduYrOpZRQ4 XhP1NZT6vLYsiD1tvYxc hypwaK3oClb+UGF5 FXL9KS84BD94P5LgPjjl dGFibGU+PHRhYmxlIHdp ZHRoPScxMDAlJyBzdHls MO7nLf3tLFPpRATr bGxh (more content not included)... Normal [facility] Consent for Treatmenton Consent for Treatment [id number] 19#1.00CD:127 [facility] Consent for Treatment [id number] 4#1.00CD:127 [facility] Consent for Treatment [id number] #1.00CD:127 [facility] Consultation Noteon 10-11-19 Consultation Note Patient: ELISA LEUNG Age: 62 [...] has, # 60 tab(s), Refills(s) 0, Pharmacy: [facility]/pharmacy #[id number], 166.8, cm, 10/11/21 14:46:00 EST, Height/Length [...] Oral, Daily, Prophylaxis fluticasone 0.05 mg/inh Nasal [place]: 1 spray(s), Nasal, Daily, Refill(s) 0, Allergy [...] list: All Problems Palpitations / SNOMED CT 560912370 / Confirmed Herpes dermatitis / SNOMED CT 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 Hypertension / SNOMED CT 0349401398 / Confirmed Anxiety / SNOMED CT 56300565 / Confirmed Lumbar disc disease / SNOMED CT 0154534951 / Confirmed Lumbar radiculopathy / SNOMED CT 742346174 / Confirmed Chronic gastritis / SNOMED CT 05329005 / Confirmed Migraines / SNOMED CT 77615021 / Confirmed Insomnia / SNOMED CT 276570924 / Confirmed Colon polyp / SNOMED CT 026582347 / Confirmed Chronic leg pain / SNOMED CT 012801364 / Confirmed Laxative abuse / SNOMED CT 766955705 / Confirmed Chronic cluster headache / SNOMED CT 254542250 / Confirmed Vitamin D deficiency / SNOMED CT 82890548 / Confirmed Hyperlipemia / SNOMED CT 38658345 / Confirmed Osteoporosis / SNOMED CT 240651317 / Confirmed 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 Resolved due to patient discharge. Resolved: Impaired skin integrity / SNOMED CT 44117090 Problem added on documentation of skin impairments. Resolved due to patient discharge. Resolved: FH: migraine headache / SNOMED CT 456975181 Resolved: FH: osteoporosis / SNOMED CT 9816057353 Objective Vital Signs 10/10/2022 13:14 EST Peripheral Pulse Rate 62 bpm Respiratory Rate 12 br/min LOW Systolic Blood Pressure 135 mmHg Diastolic Blood Pressure 68 mmHg Mean Arterial Pressure, Cuff 90 mmHg Gen (more content not included)... Normal [facility] Comment on above: Result Comment: Elec tronically Signed By: Sophy Rush PA-C\.br\Date and Time Signed: 10/10/22 13:32 EST\.br\Electronically Co-Signed By: Derick Meza MD\.br\Date and Time Co-Signed: 10/17/22 18:24 EDT Office/Clinic Note-Nurseon 0 10-10-2022 Office/Clinic Note-Nurse [id number] #1.00CD:127 [facility] Physician Orderon 10-10-2022 Physician Order [id number] 4#1.00CD:127 [facility] XR Spine Cervical 2 or 3 [...] mGy = na DAP = na Normal [facility] Insurance Correspondence Off iceon 09-08-2022 Insurance Correspondence Office [id number] #2.00CD:127 Normal [facility] INSULINon 08-28-2022 Insulin 53.4 uIU/mL Critically high 2.6-24.9 [facility] Comment on above: Performed By: #### C BC #### [facility] [address] [place] [address] Dr. Jeffry Daniels CBC AUTO DIFFon 08-26-2022 BASO # 0.1 103/ul Normal 0.0-0.1 [facility] Comment on above: Performed By: #### C BC #### [facility] [address] [place] [address] Dr. Jeffry Daniels Basophils/100 WBC (Bld) 0.9 % Normal 0.2-2.0 [facility] Comment on above: Performed By: #### C BC #### [facility] [address] [place] [address] Dr. Jeffry Daniels EO # 0.2 103/ul Normal 0.0-0.7 [facility] Comment on above: Performed By: #### C BC #### [facility] [address] [place] [address] Dr. Jeffry Daniels Eosinophils/100 WBC (Bld) 3.2 % Normal 0.9-7.0 [facility] Comment on above: Performed By: #### C BC #### [facility] [address] [place] [address] Dr. Jeffry Daniels Erythrocyte distribution width (RBC) [Ratio] 12.1 % Normal 11.0-15.0 [facility] Comment on above: Performed By: #### C BC #### [facility] [address] [place] [address] Dr. Jeffry Daniels Hematocrit (Bld) [Volume fraction] 37.0 % Normal 36.0-48.0 [facility] Comment on above: Performed By: #### C BC #### [facility] [address] [place] [address] Dr. Jeffry Daniels Hemoglobin (Bld) [Mass/Vol] 13.4 g/dL Normal 12.0-16.0 [facility] Comment on above: Performed By: #### C BC #### [facility] [address] [place] [address] Dr. Jeffry Daniels IG # 0.03 10e3/ul Normal 0.00-0.03 [facility] Comment on above: Performed By: #### C BC #### [facility] [address] [place] [address] Dr. Jeffry Daniels IG % 0.5 % Normal 0.0-0.5 [facility] Comment on above: Performed By: #### C BC #### [facility] [address] [place] [address] Dr. Jeffry Daniels LYMPH # 2.0 103/ul Normal 1.2-3.8 [facility] Comment on above: Performed By: #### C BC #### [facility] [address] [place] [address] Dr. Jeffry Daniels Lymphocytes/100 WBC (Bld) 35.4 % Normal 20.5-60.0 [facility] Comment on above: Performed By: #### C BC #### [facility] [address] [place] [address] Dr. Jeffry Daniels MANUAL DIFF REQ NO Normal [facility] Comment on above: Performed By: #### C BC #### [facility] [address] [place] [address] Dr. Jeffry Daniels MCH (RBC) [Entitic mass] 32.8 pg Normal 26.7-34.0 [facility] Comment on above: Performed By: #### C BC #### [facility] [address] [address] [address] Jeffry Daniels MCHC (RBC) [Mass/Vol] 36.2 g/dL Critically high 29.9-35.2 [facility] Comment on above: Performed By: #### C BC #### [facility] [address] [address] [address] Jeffry Daniels MCV (RBC) [Entitic vol] 90.5 fL Normal 81.0-99.0 [facility] Comment on above: Performed By: #### C BC #### [facility] [address] [address] [address] Jeffry Daniels MONO # 0.6 103/ul Normal 0.3-0.8 [facility] Comment on above: Performed By: #### C BC #### [facility] [address] [place] [address] Dr. Jeffry Daniels Monocytes/100 WBC (Bld) 10.4 % Normal 1.7-12.0 [facility] Comment on above: Performed By: #### C BC #### [facility] [address] [place] [address] Dr. Jeffry Daniels NEUT # 2.8 103/ul Normal 1.4-6.5 [facility] Comment on above: Performed By: #### C BC #### [facility] [address] [place] [address] Dr. Jeffry Daniels Neutrophils/100 WBC (Bld) 49.6 % Normal 43.0-75.0 [facility] Comment on above: Performed By: #### C BC #### [facility] [address] [place] [address] Dr. Jeffry Daniels Platelet mean volume (Bld) [Entitic vol] 8.9 fL Critically low 9.5-13.5 [facility] Comment on above: Performed By: #### C BC #### [facility] [address] [place] [address] Dr. Jeffry Daniels PLT 343 103/ul Normal 150-450 [facility] Comment on above: Performed By: #### C BC #### [facility] [address] [address] [address] Jeffry Daniels RBC 4.09 106/ul Critically low 4.20-5.40 [facility] Comment on above: Performed By: #### C BC #### [facility] [address] [address] [address] Jeffry Daniels WBC 5.7 103/ul Normal 4.0-11.0 [facility] Comment on above: Performed By: #### C BC #### [facility] [address] [address] [address] Jeffry Daniels FREE THYROXINE INDEX T7on FTI 3.64 Normal 1.30-4.50 [facility] Comment on above: Performed By: #### C BC #### [facility] [address] [address] [address] Jeffry Daniels T3U 34.0 % Normal 30.0-39.0 [facility] Comment on above: Performed By: #### C BC #### [facility] [address] [address] [address] Jeffry Daniels T4 [Mass/Vol] 10.70 ug/dL Normal 4.80-13.90 [facility] Comment on above: Performed By: #### C BC #### [facility] [address] [place] [address] Dr. Jeffry Daniels GLYCOHEMOGLOBIN A1Con 2022 ADA RECOMMENDATION SEE BELOW Normal [facility] Comment on above: Result Comment: ADA RECOMMENDED LIMIT 4.0 - 6.0 ADA THERAPEUTIC TARGET < 7.0 ACTION SUGGESTED > 7.0 Performed By: #### A 1C #### [facility] [address] [address] [address] Jeffry Daniels Glucose [Mass/Vol] 120 mg/dL Normal [facility] Comment on above: Performed By: #### A 1C #### [facility] [address] [place] [address] Dr. Jeffry Daniels HbA1c (Bld) [Mass fraction] 5.8 % Normal 4.5-6.2 [facility] Comment on above: Performed By: #### A 1C #### [facility] [address] [address] [address] Jeffry Daniels IRONon 08-26-2022 Iron [Mass/Vol] 64.0 ug/dL Normal 50.0-170.0 [facility] Comment on above: Performed By: #### I SUMMER VITAD #### [facility] [address] [address] [address] Jeffry Daniels LIPID PROFILEon 08-26-2022 CHOL-HDL RATIO NORM SEE BELOW Normal [facility] Comment on above: Result Comment: 3.3 - 4.4 LOW RISK 4.4 - 7.1 AVERAGE RISK 7.1 - 11.0 MODERATE RISK >11.0 HIGH RISK Performed By: #### T SH, CMP, T7, LIPID #### [facility] [address] [address] [address] Jeffry Daniels Cholesterol [Mass/Vol] 267 mg/dL Critically high <=200 [facility] Comment on above: Performed By: #### T SH, CMP, T7, LIPID #### [facility] [address] [address] [address] Jeffry Daniels Cholesterol in HDL [Mass/Vol] 45 mg/dL Normal 40-60 [facility] Comment on above: Performed By: #### T SH, CMP, T7, LIPID #### [facility] [address] [address] [address] Jeffry Daniels Cholesterol in LDL [Mass/Vol] 178.8 mg/dL Normal [facility] Comment on above: Performed By: #### T SH, CMP, T7, LIPID #### [facility] [address] [address] [address] Jeffry Daniels Cholesterol.total/Ch olesterol in HDL [Mass ratio] 5.9 {ratio} Normal [facility] Comment on above: Performed By: #### T SH, CMP, T7, LIPID #### [facility] [address] [address] [address] Jeffry Daniels HDL NORMAL > or = 60 mg/dl - LOW CARDIOVASCULAR RISK <40 mg/dl - HIGH CARDIOVASCULAR RISK Normal [facility] Comment on above: Performed By: #### T SH, CMP, T7, LIPID #### [facility] [address] [address] [address] Jeffry Daniels LDL CALC NORMAL SEE BELOW Normal [facility] Comment on above: Result Comment: <100 mg/dl OPTIMAL 100 - 129 mg/dl NEAR OR ABOVE OPTIMAL 130 - 159 mg/dl BORDERLINE HIGH 160 - 189 mg/dl HIGH >190 mg/dl VERY HIGH Performed By: #### T SH, CMP, T7, LIPID #### [facility] [address] [address] [address] Jeffry Daniels Triglyceride [Mass/Vol] 216 mg/dL Critically high <=150 [facility] Comment on above: Performed By: #### T SH, CMP, T7, LIPID #### [facility] [address] [address] [address] Jeffry Daniels VLDL CALC 43.2 mg/dL Normal [facility] Comment on above: Performed By: #### T SH, CMP, T7, LIPID #### [facility] [address] [address] [address] Jeffry Daniels PROF 14(COMP METB)on 023 Albumin [Mass/Vol] 3.6 g/dL Normal 3.4-5.0 [facility] Comment on above: Performed By: #### C BC #### [facility] [address] [address] [address] Jeffry Daniels Albumin/Globulin [Mass ratio] 0.9 {ratio} Normal [facility] Comment on above: Performed By: #### C BC #### [facility] [address] [address] [address] Jeffry Daniels ALP [Catalytic activity/Vol] 58 U/L Normal 46-116 [facility] Comment on above: Performed By: #### C BC #### [facility] [address] [address] [address] Jeffry Daniels ALT [Catalytic activity/Vol] 41 U/L Normal 14-59 [facility] Comment on above: Performed By: #### C BC #### [facility] [address] [address] [address] Jeffry Daniels Anion gap [Moles/Vol] 14.5 mmol/L Normal [facility] Comment on above: Performed By: #### C BC #### [facility] [address] [place] [address] Dr. Jeffry Daniels AST [Catalytic activity/Vol] 27 U/L Normal 15-37 [facility] Comment on above: Performed By: #### C BC #### [facility] [address] [place] [address] Dr. Jeffry Daniels Bilirubin [Mass/Vol] 0.2 mg/dL Normal 0.2-1.0 [facility] Comment on above: Performed By: #### C BC #### [facility] [address] [place] [address] Dr. Jeffry Daniels Calcium [Mass/Vol] 9.2 mg/dL Normal 8.5-10.1 [facility] Comment on above: Performed By: #### C BC #### [facility] [address] [place] [address] Dr. Jeffry Daniels Chloride [Moles/Vol] 103 mmol/L Normal 98-107 [facility] Comment on above: Performed By: #### C BC #### [facility] [address] [place] [address] Dr. Jeffry Daniels CO2 [Moles/Vol] 24.8 mmol/L Normal 21.0-32.0 [facility] Comment on above: Performed By: #### C BC #### [facility] [address] [place] [address] Dr. Jeffry Daniels Creatinine [Mass/Vol] 0.76 mg/dL Normal 0.55-1.02 [facility] Comment on above: Performed By: #### C BC #### [facility] [address] [place] [address] Dr. Jeffry Daniels EGFR-AF PARAGUAYAN >60 Normal >=60 [facility] Comment on above: Performed By: #### C BC #### [facility] [address] [place] [address] Dr. Jeffry Daniels EGFR-NON AF PARAGUAYAN >60 Normal >=60 [facility] Comment on above: Performed By: #### C BC #### [facility] [address] [place] [address] Dr. Jeffry Daniels Globulin (S) [Mass/Vol] 3.8 g/dL Normal [facility] Comment on above: Performed By: #### C BC #### [facility] [address] [address] [address] Jeffry Daniels Glucose [Mass/Vol] 109 mg/dL Critically high 74-106 [facility] Comment on above: Performed By: #### C BC #### [facility] [address] [place] [address] Dr. Jeffry Daniels Potassium [Moles/Vol] 4.3 mmol/L Normal 3.5-5.1 [facility] Comment on above: Performed By: #### C BC #### [facility] [address] [place] [address] Dr. Jeffry Daniels Protein [Mass/Vol] 7.4 g/dL Normal 6.4-8.2 [facility] Comment on above: Performed By: #### C BC #### [facility] [address] [place] [address] Dr. Jeffry Daniels Sodium [Moles/Vol] 138 mmol/L Normal 136-145 [facility] Comment on above: Performed By: #### C BC #### [facility] [address] [place] [address] Dr. Jeffry Daniels Urea nitrogen [Mass/Vol] 22.0 mg/dL Critically high 7.0-18.0 [facility] Comment on above: Performed By: #### C BC #### [facility] [address] [place] [address] Dr. Jeffry Daniels Urea nitrogen/Creatinine [Mass ratio] 28.9 mg/mg Normal [facility] Comment on above: Performed By: #### C BC #### [facility] [address] [place] [address] Dr. Jeffry Daniels TSHon 08-26-2022 TSH 1.963 uIU/mL Normal 0.358-3.740 [facility] Comment on above: Performed By: #### C BC #### [facility] [address] [place] [address] Dr. Jeffry Daniels VITAMIN D 25 OHon 08-26-2022 VIT D 25-OH 44.6 ng/mL Normal [facility] Comment on above: Performed By: #### I SUMMER VITAD #### [facility] [address] [place] [address] Dr. Jeffry Daniels VIT D RANGES SEE BELOW Normal [facility] Comment on above: Result Comment: <20 ng/mL Vit D deficient 20 - <30 ng/mL Vit D insufficient 30 - 100 ng/mL Vit D sufficient >100 ng/mL Potential Toxicity Performed By: #### I SUMMER VITAD #### [facility] [address] [place] [address] Dr. Jeffry Daniels Coding Summary.on 08-25-2022 Coding Summary. CD:[id number] Gh0bWw+PGhlYWQ+PE1FV XMtI16euRVxgM2EK9lQZ B9WKVJMFOJGVY7HPR0gx PS4JCcpB6JhyeBf ZkgamCJiYJ87OUh0BTU9 aMqcIUvdlM0sgFVeB6p2 OaWbQO25oG30THqfTTXf IfH4ZvGucyjxpEMo E2azFaKzmJAtNbm+PHRh YmxlIHdpZHRoPScxMDAl ScKjrSuqKS6hXb0xFUIy LWNvbGxhcHNlOiBj p2hqYNQmIWqwAS2vsCji A0LqwRY3VONwb3z8Nf74 dHI+TBRtHES1bNknRXqn g073DlWxy7lnWIK1 wUZcMZznGDY4X73no5A7 VJExMGSuTCZ4bCS4pV8d rEvposruT7UpsAHpHxJ8 OGG0aTWxnA6aiVqo kywycM8rVsw+S87NGI1S SJGDVY6TKnj0B2EgVrqz dHI+MH16PLJqYL71dPNj xMMri6fknZt8KnXl GCSjYNU4lVysGWsos5Ss UOFtW94nnXEej0E6DNWk yBokiOGxTtJueGG9oK0b FJotnndyj1pqmacz Pmlbh1jcya85nJ47X01q MNsyNKDpDKF3EGVyBXDp zFwlyd9lvJ1zVs1+IDxj k7ttk4zhmMs7JwUe IZXwecWywCusZOF1f5Dn Ff40K1CbdPgnm1QkIva7 jk49iEVee8N2hDK5VBvz QLAkhL4eUKlcMbF3 ESCoYlZzjD26zJAtOFtl Ck2vgXpffGkcKI6zLMRq knphBQElhM5jEOOytDIs nQmrRJ7jGNZhdesn s455KuLfMME6BSDhqIXh X4UxxD8dFcEaVSUfQDRt D0MpePSyCQfwS042YXxq ThC9CJPeikZiN3Wh IYYdrRneDtC7r0W1Zg1X t0PtlmmvBRO3VUvvMTUi CzHgTtCdLiP7P4NgLls2 GIGxoUbxCV6xC5Us GOFunjmaukjesLP8KUXk PVCjfO82hXCxFOrzSx0j z1C7w759QWVaSFTkvH67 Si0ejSibWNDwyMXR uO3zxxmfr9cmitxcYyXj ZGGyGJr6MBn1BRIkoBuz CgJtHPL4OiF8YZD5wDKp zN3btYcwfbendV8b Oyc+Z26vlO8aJNM0YDY3 fbjvWKFcjfZbDD92NL09 I5RpZdrbtHWubDT+PGRp ujIgyZvhOT9iRpDy d9szk0PdFZdkK2ZoMAVi BAmqVgh6DYCtCER4qCY4 qC7mQYBfXCtsy3J5wEK0 L6DabcIxdh6np6dr FPTvTZhbN14zwXEah1X4 TLBdqHN1NAPwxKknItEi cC13Xtb+BPWceQfls2Iw Hdfjq8nnp1pkqAs0 IjMwJSIgdmFsaWduPSJ0 e6UnWe67U27kJNygEMUb KKXaDPSbOZUecPbyrd9b vQ5sJz4+PGNvbCB3 aML6rJ0xHRKbCsI1IZqr V464FiIrwTFqJsnws6hj m9sooUr6MkLdVUAvghKu wHoiJAQ9d7TzVs82 I85mIHbwRICaIZHqYPEh ULDtjIvxlj0krB3zCf6+ EU6fr4atrp11zE36xVZ+ NBZlHNF7tHmaPLtj KHYekM4iFTxpCbJ0YOWb FxJydE73vPQaUUzbSf8u yKiagJqiBJ4sQAScaxsy d033QdMfg2xhBTUt dCMdDMiyKWJ5V62ta1L8 EITfKLBmZIY9bFZ8gV7z bGlnbjogbGVmdDsgdmVy bFioSLegJSfqF761 IHRvcDsnPlBhdGllbnQg SdIeWTp3X1LpKsn0PEQb bPxkUH5veFEtLQfwPd3n jBsmdByyQZ6aPWWf kafhb274YdShg7uvXUPd pTGfRLvfPJM4T37cf6P5 CWKxHXGjPBI6cZL6jE0j bGlnbjogbGVmdDsg loMziBqxHKwaYTfqX878 IHRvcDsnPkJpcnRoIERh vDN8PZ21QF42zDXll9R1 cTM6W0UjCINcwlfm bzgelLM8FJWjLQQdhJ76 Mg2fvGbwMt3yFZEoJXA3 PCAmmJXzX6CbrU6lRfUu ZTXeKZLyD5JofVAh NVzzO478RIebOqE4XKJg okRtG8IqFEFazRnfFjS7 k6Q7Wq1EQ8V2NB87HQ07 aBKlj2Q7zCP0K7Zc UXWbsgployslkRT2DBPl OYGmdA23Oh7piRaqGy4x NKEyXHL8QOHssUGnB0Tp jZ2dUdNyWARyRSYy J9FmaBDfQZyoN384BFcc YnX8GYHdylPbW2IxIEUi jBbpCcS3d7W6Qj5TCBs1 SB34UF54tHOuj5B7 kPK5L3CjDZGywvcrnajn kVO9VCJlAMSloF21Mw7j uDykSs6zEXKfTMX9ONYi aUVsI6WliY6rCqHl JXVyVNLaU0IxnCShBJcf R674ICqyCeO6PCEhppXa V8OySUIxwPcdKjQ7k8L6 Yn7HQSQlJX31AFD7 zKE6AD41IK11U5DkNkqn dGFibGU+PHRhYmxlIHdp ZHRoPScxMDAlJyBzdHls VF9tXn0bOPHfGFWk pQfayURiYwIqo3rdTWHw LUxkOK1duCnjF9EppDT8 FHFku9x9Mw36I42hJ0Lx dXA+IJVoqIX1wIW2 vH7tYoFzInG8OGsnG956 UlZnqKPxGiphg4nji2iz oLv2EhG6BJVmuoWwiAva HLW0d0KaTb97Y10h IHdpZHRoPSIxNSUiIHZh tMpgel6tiF9yHa6+PGNv cXZ2dVU4fA3eOpJaDfD6 HRomU361HbMhvTAz Piplj2had8pubJe7YlEs UDEpufCdyXotFXY2w2Wp Nx34U9DgsCcvs4PeVeu0 fx88cUEnx0G5zIL3 E1CjVCKfhypdcKNqxUyn WN1mPZVaiweaVQAelV6y ESBaW4n9AcRhNyU6KIii X3VrzuV9QIVkkVCh HNssZUL4Z42sa7L7LUMn VMHyXGH7wCF8bM4iaYac bjogbGVmdDsgdmVydGlj NMndASshZ027KJZi qPbfBCEzqK7sQMDyjWZf qIgaWJ2vGOBxgwezIaQA QG0LMZQjMQvHTLCWZTQ6 Z9UvYzk1WKEqiJkn KI1aaDIgPOogVo9ufPur tMynKR7uVETnjvxpKDVd vZ3pWZSfkPAfeLwuJG5e GGCpljxwi108SpVy VNI0BPXxeQXjT0TfhV2a RqLgRJKfVNKsH6UicAXl MVpjT466CJhoSeH1ECOo doAvM2PsFIEzrKgw YcY4h6H0Cb9zXK9xHV2i YVEhQW01ZW66bLTjo0E6 xRQ8C1VhBHNbpmrhhgrj bNK8TMVlGIDxnK90 lWXlLCksCi5ma6C4l276 RXQgRBTzfS55Hg3dhKgy HQXjnGRAtU2jszgnz2zs cjogIzAwMDAwMDt0 ZVh4UFIlsMzmLaToCBV2 AgV5ERJ5zWRsnC1bkPhi cboncF7cDzg+NjAgWWVh pbV0N7AlQsb0XDWm iVsyGA8ajBQcSZrbBj2c gSdwaHiwAM0dYZWkzmoi OQIsdY9nQYAmkZTszJpd ND1oFLEzsyjqk551 DrFtXQY6DIAhaPByV6Uk gS9jLdXbAKYrOCErE7Sy aMYuLMorU269GCteVjT4 PZJhmgJvC9TvAXHy vLmhBtC5x8X0Xo8AKG8i tEC4E7CgRlv2IUPbwDnb FU6hcQDjRNahSg2acPra qBirYO1mNSWiizwh YXFcnO6fPQUkiGYbbPtd RD2kUJRqvuckg701KiFo YHD8MLFdoGBtO2HgxF6s CkJgVHYgGARqW5Tr mYEvEHkgI481PCcrXtR7 SANlbmSfI6PeFOOrwSow UlY1w6Y0My6MWErkYF3n xmQmTQ9vppO5S7Eg PjwvdHI+SA65JQKfTV19 iYHwrTUxm8vmeOd5KjJo OTLdASC5lPneXKmvm8Xj GATqJ55seORsf6J9 IGNvbGxhcHNlOyBlbXB0 bT2pMZtrtbovh6qjzmcq Gpanv6pljr08yH07X18a IHdpZHRoPSIzMCUi QDGfqXovfq6euB1eZp3+ AVElgFT9jAV3aK2jOlIh WmS0WTtyT896ZsMvyDJe Oryfl0gis1jjgZe7 IjIwJSIgdmFsaWduPSJ0 j0PcUp70L97qNSbkAWTn AAFqIRWpWDMknScojk5n mP2eAi4+DV2cg6ki jp25kG37hAY+PHRkIHN0 oLfeGZekCETieM4sBHzn VfV3HSYvFaWnzG30gYUr HQshKz9jnBgrxRjg MG8rVZLuiprcx821LzCo e2moPJXlvREdIEzcWKI4 I00cm9R8DJKeWKDeYLG7 vEG2kS9duTesfwzg bGVmdDsgdmVydGljYWwt QClaW425TIZujPtoZwPv ePQcZ2tdvtYFKH0wYvia dGQ+BFSwRBV3vQhz VQgdQSKkrO5gAOItP6j4 QcYxEbU4ELfwT1SdgfF5 NTEqeXUuJCBrhVAAnZ1o mxyfl7evsqzwIfIv TLNuYCi9PHe9UIKcvFsg OmCeUST2EzJ7VNO8hNGv mX7ybJbczznurR7lYxa+ RklOOjwvdGQ+PHRk XRE6pFohFRkmZKGwhX4x CHTmQ2b6IhShNbW5LEpz X8GetyA8WERvzKPiBGZr uKIRcP6lkyqkk9nj okxeHhYdZDJfEYx4GKz1 CIBwbLemOnVzEQL9QdE8 EKD0tKSamX9hxAabjuxd zW7gShd+TVJOOjwv dGQ+EQUlUHG7hXqcKTip RYEgpK9wGQDyM7n6ZfEn JtV8WQrlT7DppoM4YCOe cLUoPNVeiATCjJ4b jxrmg4whlbacNhMdXJLe QZi8IKq7KETptNypIgVk CLH4FwX8AHU0lHUpjV5x bUmxckiioE0dBxj+ USD8EMB0CF35WY36I6Nm PjwvdGFibGU+PHRhYmxl IHdpZHRoPScxMDAlJyBz cUfpOY9qCo6cVNEp LWNv (more content not included)... Normal [facility] Insurance Correspondence Off iceon 08-24-2022 Insurance Correspondence Office [id number] 8#1.00CD:127 Normal [facility] Office/Clinic Note-Physician on 08-23-2022 Office/Clinic Note-Physician [id number] #1.00CD:127 Normal [facility] Consent for Treatmenton 08-06 Consent for Treatment [id number] 8#1.00CD:127 Normal [facility] Consultation Noteon 08-22-19 Consultation Note Patient: [...] has, # 60 tab(s), Refills(s) 0, Pharmacy: [facility]/pharmacy #[id number], 166.8, cm, 10/11/21 14:46:00 EST, Height/Length [...] Oral, Daily, Prophylaxis fluticasone 0.05 mg/inh Nasal [place]: 1 spray(s), Nasal, Daily, Refill(s) 0, Allergy [...] Problems Abdominal pain, RLQ / SNOMED CT 822374457 / Confirmed Anxiety / SNOMED CT 60278908 / Confirmed 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 BMI 31.0-31.9,adult / SNOMED CT 623999460 / Confirmed Change in bowel habits / SNOMED CT 067541037 / Confirmed Chronic cluster headache / SNOMED CT 470398523 / Confirmed Chronic gastritis / SNOMED CT 71583185 / Confirmed Chronic leg pain / SNOMED CT 061345994 / Confirmed Colon polyp / SNOMED CT 056298091 / Confirmed Diabetes / SNOMED CT 675108316 / Confirmed FHx: melanoma / SNOMED CT 6756844830 / Confirmed H/O: osteoarthritis / SNOMED CT 622514014 / Confirmed Herpes dermatitis / SNOMED CT 90216778 / Confirmed History of Helicobacter pylori infection / SNOMED CT 1282339691 / Confirmed Hyperlipemia / SNOMED CT 79086368 / Confirmed Hypertension / SNOMED CT 1361888134 / Confirmed Insomnia / SNOMED CT 561208492 / Confirmed Irregular heartbeat / SNOMED CT 358329317 / Confirmed Laxative abuse / SNOMED CT 424818523 / Confirmed Lumbar disc disease / SNOMED CT 2949953926 / Confirmed Lumbar radiculopathy / SNOMED CT 404393476 / Confirmed Migraines / SNOMED CT 07108155 / Confirmed Osteoporosis / SNOMED CT 752325666 / Confirmed Palpitations / SNOMED CT 797314735 / Confirmed Rectal bleeding / SNOMED CT 623693342 / Confirmed Vitamin D deficiency / SNOMED CT 43885289 / Confirmed Objective Vital Signs 08/22/2022 13:06 [...] bilateral lo (more content not included)... Normal [facility] Comment on above: Result Comment: Elec tronically Signed By: Sumit MURILLO, Eddi Edwards\.br\Date and Time Signed: 08/22/22 13:33 EST Legal Correspondence Officeo n 08-22-2022 Legal Correspondence Office [id number] 1#1.00CD:127 Normal [facility] Office/Clinic Note-Nurseon 0 08-22-2022 Office/Clinic Note-Nurse [id number] 1#1.00CD:127 Normal [facility] Office/Clinic Note-Physician on 08-22-2022 Office/Clinic Note-Physician [id number] 2#1.00CD:127 Normal [facility] Patient Correspondenceon Patient Correspondence [id number] 1#1.00CD:127 Normal [facility] Patient Correspondence [id number] 4#1.00CD:127 Normal [facility] Patient Correspondence [id number] 4#1.00CD:127 Normal [facility] Patient History Officeon Patient History Office [id number] 4#1.00CD:127 Normal [facility] Coding Summary.on 08-04-2022 Coding Summary. CD:[id number] Gh0bWw+PGhlYWQ+PE1FV NWeJ85ssETxgK1UO3fCS W9TFHRZKIYINI9YAV0na RL1PVqkZ2AerhCg LqclyRSqBS61RGu8FFE1 oBdmMMbszG8rjSJjQ0y5 QrKxOK93iL33WSciTVSi VhR8GgGkaynlrJMx E3xfZdPnfRGbDjy+PHRh YmxlIHdpZHRoPScxMDAl BzDsvZlgHK3nPo9kJNSv LWNvbGxhcHNlOiBj q5naLRKxREzoEN0qhYrt K6UtyYW2QNMnd1v3Jm12 dHI+VZGzBCD1fShnUDhg a970KuNge3yiHNH3 fAReDZyqBEQ5F58ak5W7 XYDfDDNbPNZ9dVJ5cH2x mHbnnlovB6HnfEFoZlC0 RNN4pHWzsC1zhLbd fzjwrN1qHss+G93DHB0V YWFRBQ8BNck5Q7QzSntg dHI+EB84CQIyDS38sIJi lVRvl4hviBn0GmGr ZQObKCX7iEgwWCirk6Ol PQFrC19hbOZcu2E2ZXPe cCvxwBLmLvRcaIR0dL2n WQopqiebv8motbub Gnayw0maex18mB78T44q CWcmDVMeEKB8CEAyMOIe oCllys3ohW7mPu2+IDxj o6whx4tjrXu8JySs JRTcndClnDewDXM3a3Oh Qc48B9UktCbkh0XjBbf2 cu73aMArt4B9dCT4LHse JFHdbH8nSRrgLyS6 OBAnHiVvhH56uHPbUNrt Wz4mbFmpxJwfJH9sQIHd srewVANuzR9qNLRsbUVa aXssLL2wDXNynixx i330NrEoVPE3IKCgcCIv L2HgaP1wGtDdTOMoXTEj F3GpxEXlXPcyI684VVzy FsK0GCPdkeZhG1Ps BNFciRuvBqJ0f6Q6Dq7G s9FdlqywBJE3BWafOLWn FoExFsPhVhP7H1GjUnv9 IYAxhFqtZC6cS5Ze RGMfgxebucgpqYO1BMSp CJWqcS73rZBkXLjmZh4n i1D9b068UOKqRUFkhG69 Yw8wnOvwRDEkgCOS cS3qjtoah6tgcjnwOkUa OBImZKc8ZVa4TQCtkNck KlUkXGF3RuX2BCW7cMVn lW1eqBsrdhzqkW2r Oyc+W02rzZ8bZGZ5XLH9 hiqlWCCryvJoTW94KJ87 W9TgQdoyeVKhiOQ+PGRp jlZnpAlvMX3lYrYt r2ybj0RqDSneQ9GvVUIp QWwgWbk9JLZqCSO8bWI0 mY0hEWKwYBjim0E9gKS7 C6AlhuVfhm7xh3cm RBQmIOziE99kuBXzw8Y9 OBRblNP3KVFyzOunLrUq xA87Ecr+AWDsvKstn0Pv Jxgtf4hjw1vqsMf2 IjMwJSIgdmFsaWduPSJ0 q1VqOc29K74bLAfsQIBd HELbXKZxLCBonRdgey1v sR4oBb2+PGNvbCB3 mMR5uI4hEVRwRrJ0MMys X057MqTgsZOiDmkah3yu j1dafLf7YvNkKIIairXp iDnsVCQ3i2PwJw61 L00vVVhyXQJqDMNzCGBm PVCxfDvcbn0pcA5vQx8+ NO0oi2jsjx89kY58xMZ+ JWBrXGD5hWjuPKef HXTyhT5tUHvxHiC9MFHm RqAbsS59fJAkELsoYu6l qDoovSbtLV3jWOXxhqcm y745CrAwp3ihPMKn pYRhJPsdSRX4X84kh4S7 LTPrMBMuGBB9bJO5qT6s bGlnbjogbGVmdDsgdmVy cUwgIOwjXKxaG060 IHRvcDsnPlBhdGllbnQg BxNhXXy9H4AxCrl9KLCw wCpcXC0qpQAqJMhnFh8p gDmkcFjeHU3fHCAf qooaf525LcJya4osVYFj zVBlDJalIZV4H59zt2S7 XMNxEAMgEMU9sXU1bG4x bGlnbjogbGVmdDsg nlTxlPcuGMkxUAtnA303 IHRvcDsnPkJpcnRoIERh bCN2BK78VB99tLReh8Y8 fPQ8U8ZeGALxmcwr rcqnhPR6HCEcLLLeuA50 Ot4mrKcgZm6bTSSaJRK4 ZGZldNReY6HneF7zJdXy ZGDdBIGoZ0UdlESd EThkI267DDpiPfV0JCFn kcZxY2WgESDkqVkzEoR7 x5M9Xx8JK4R7ZD47QJ06 wRMsg5X5bFH9H7Bs DYBoupkekmbsvZN6ROJq OZMphL75Gi0csUqaNu0e RKVmFTF9OLMhfNGnK4Yt pW8xTmAtLZXiGHVg Z3ZjlJZiKKtiV881OKrd LaQ0DTHazdUxE5SiLQMk cNlcCnS5h8M7Ko0CJBc6 EL80VB25pJLiu5Y1 aEP8F4WiMMTpwgyggdby aGL5UZNxIAItwT52Qg4o oWdmBp7cJGRnAUQ1MGSc hZVwW6SzoO2hWtUc APYpWHYlR3KibQZoUXpl B750MTfaRpD1RERmcrGz H0HzXLEgpYebUfD2z3D5 Ei2FSHEvMR30UNX1 mWB8SR72AZ06B3YvNizz dGFibGU+PHRhYmxlIHdp ZHRoPScxMDAlJyBzdHls LU9pTx7zVFGxMNWw kRumbPEwPzOxx6laJILu RNhxGX7tsPakG3DrmSG6 OYBoo4o2Uz08I53aK6Fs dXA+XPAkvLK8iXR5 uY0wEpPtSmC8NIpvD127 PbWvhOOxJffex6dre1jr dSc8McE9PGIfpgEtbQcc REL3h2QvSt16T95y IHdpZHRoPSIxNSUiIHZh jOgxpd0esB8eBu6+PGNv uTP8uKA0kG5vMmGbZwS5 OHnrF173ClBgeJWp Jqweu5olj6dblQg5XaLj CGZrsuYdaXyaFLP4u0Sh Ry76E6WgyShwd4RoCtu9 de79nRTwg8A1wMJ3 M1WoRJBbrmvbmHSuoHxv BW6xORTqayzeDTNquP9l MFSlY0i4AtQgRjH3OLqb Z3TlgeY5BQAauYZb VOgnSJP4N12sv4G4ZZHh IILuGZS3tST8iY9xpRme bjogbGVmdDsgdmVydGlj RJanMGmgF709AWNv xNnoRBQwmO6rEOWzzVFy pTocVU7zXLBuujcqQoKU GZ4VDWLqEXoNQYLDXEG5 Q3WwWea0IUFibOjy FE1awWWlAVmdOp5glJwn dAthLY3eNHQkrfoyNNQv mI0rXTXcqJAaeFmdEY3b MAPwjihrj958PcPu SXF0MWNamFGfX5WzyR8h ChFwMCSoSQHwO1XjhVJn EDgfO646LJzvZvQ9QOMz eaVoJ1QbUMUmaOos DwI2z5M1Vt3iVH3xFL7i KKPqQX00FS69wDRwj6X5 oIV9N5KmPMLyfycsyiuq hDL1ZGNlYDWlpS20 hRKaGWowAq6vs4O7h337 XWMzAFRhqI81Uq8zyUhb JJXnqLECbZ8itjnia5rd cjogIzAwMDAwMDt0 LOs0ZEOblHdtJtAqPVD7 HgS5AFD1iAEqzP2ttSnd rilwnD7iDqk+NjAgWWVh ybY1P0DfYef6YECp vSffPE1zxHBoTFrxAd7r sAazrSngKW1wFOZbhjjg BFFcmF3pHQStuEYrjYyf AL3aKRWswjceb930 FuDeAJL9EUNahPTdU6Da vW1aHnFaGOVkNTPxN0Pb nIVfFIgjY538JXsjTlJ9 TBUfcjHbY3VkTZRk gCefMsS6y1E2Kb8TKU8a rVG8W5DwGrt5XMAehKae JY9iqNKaUNptGy0cfQwx mKvlID4tTTCdafce YOZvyC5iXXIxdLIleZkx PA5cYWPrioiva171AvBw UWD5PCRbcGCsI0LkzI6g UqDjGDJlHEOiN0Ez vLPrHAojN840DJobQwV8 FIIwosBoE0QtRQTkeMew NmB8d0W1Dp8ISKskWB0w wdEnVP6ogoY4K7Xf PjwvdHI+OT47IRBwHX01 jBMnuAVzm7xggYh8IcMt FLKwLHU1kHdoLRlad0Iy CUVmS98ojCCfd7G7 IGNvbGxhcHNlOyBlbXB0 pN9xDGtzslgqf4psaxpr Rfcnz7opwa63tG26P28z IHdpZHRoPSIzMCUi VZPaiSbvyx1guI3nTq5+ NSAxmEH5tZH8cT3dBgTz MyU3ZOovA837QiQhkPQz Pslru2imc2jbvEg0 IjIwJSIgdmFsaWduPSJ0 d4UxLq05G77hNHdrDKGu GZBsDDPeESYfvZrtfo1i vE6uRr9+AP1mw0dr cg42rX75yEZ+PHRkIHN0 xLlcTFnbSOTneM9rJDmg VnV5IGEfKrDdzI83qTJu SPwnKu4rdAaulIqq SG2lNOQpevtai045WiXk e0qmRTTcjGFmDTzzLVN8 Q54hl4T8MBBcHABfBEG1 yFU3oC5hpIxevyug bGVmdDsgdmVydGljYWwt VBtbX446AGYvzZidFxLj zMWgP5tsycJQWL4dDgyj dGQ+TQZbIJW9jZqs YFfxWJHhoL9qCKLqV5i8 KxMeTqG2JYldM1EejmY4 CITxwJFlWOTysFWXkC2b eojot4yoiqxdMyTa RYLbLJs8VVe7SRUtbMul GtBlLSK8OgN4COV6vZId lH9ltPqgufcivX6zAnu+ RklOOjwvdGQ+PHRk YEO6wSvvUOwtFIZbhO4l CIRuU1o5WuUqHhK9MBmp T4EwysY9PZMbfMGwVBOf rZXOgZ1nguwdr6em bilrQcDgYKNzFCj3OEc7 BCUxjYvaQrWeWXM2CyF8 EMI9lXQjyX1euJnavxbv jI1gQmc+TVJOOjwv dGQ+PQZfTLC0zGlhSPqs HPBoxD0gACRiC9a6ViXl WpM8UFpwD3StiwQ4BNFo cEHvEKUroBUMlC3e rmyiz3gfmhpxSuSuQSIf IHo2KYb7AWAdhRfgNdTu EON3PpN5MDB5jAMoxB4q nHwqfarolI3lQrk+ SNF3ETM6WR86BB00H4Zf PjwvdGFibGU+PHRhYmxl IHdpZHRoPScxMDAlJyBz zKmqRP9jIa1zZBZt LWNv (more content not included)... Normal [facility] Capillary Glucose POCon 07-07 Glucose [Mass/Vol] 103 mg/dL High 55-99 [facility] Comment on above: Performed By: #### 2 [id number] ####[facility] [id number] [place] [address] Consent for Procedure/Surger yon 08-01-2022 Consent for Procedure/Surgery [id number] 3#1.00CD:127 Normal [facility] Consent for Treatmenton 07-07 Consent for Treatment [id number] #1.00CD:127 Normal [facility] Discharge Instructionson Discharge Instructions [id number] 8#1.00CD:127 Normal [facility] IntraOperative Documentson 10-02-2021 IntraOperative Documents [id number] 0#1.00CD:127 Normal [facility] Main OR Intraoperative Recor don 08-01-2022 Main OR Intraoperative Record IntraOp Document Type FTPM Summary Primary Physician: Eddi Arana MD Finalized Date/Time: 08/01/22 15:35:58 Pt. Name: ELISA LEUNG Amita Delacruz/Sex: 1960 Female Med Rec #: [id number] Physician: Eddi Arana MD Financial #: [id number] Pt. Type: P Room/Bed: / Admit/Disch: 08/01/22 [...] Performed Surgeon - Primary Scrub - Primary Starchmaker - Primary Time In 08/01/22 11:25:00 08/01/22 11:25:00 08/01/22 11:25:00 Time Out 08/01/22 11:31:00 08/01/22 11:31:00 08/01/22 11:31:00 Procedure LUMBAR EPIDURAL STEROID LUMBAR EPIDURAL STEROID LUMBAR EPIDURAL STEROID INJECTION(.) INJECTION(.) INJECTION(.) Comments Luzma-student Last Modified By: Ria Martinez RN 08/01/22 Ria Martinez RN 08/01/22 Ria Martinez RN 08/01/22 15:34:03 15:34:03 15:34:03 Entry 4 Case Attendee Shashi Ambrocio Role Performed Dining Car Hop Time In 08/01/22 11:25:00 Time Out 08/01/22 [...] Ria Martinez RN, Myers Given Participants RN, Nicole Guadalupe, Sumit MURILLO, Lolly Jimenez Bryce Time Out Complete 08/01/22 [...] and tissue Entry 1 Skin Integrity Intact, [place], Warm, and Skin Abnormality No Dry Outcomes [...] from signs (more content not included)... Normal [facility] Main OR Preoperative Recordo n 08-01-2022 Main OR Preoperative Record Holding Area Document Type FTPM Summary Primary Physician: Eddi Arana MD Finalized Date/Time: 08/01/22 10:43:25 Pt. Name: ELISEOELISA./Sex: 1960 Female Med Rec #: [id number] Physician: Eddi Arana MD Financial #: [id number] Pt. Type: P Room/Bed: / Admit/Disch: 08/01/22 [...] By: Coco Mendez RN 08/01/22 10:43 Normal [facility] Operative Reporton Operative Report Patient: ELISA LEUNG Age: 62 years Sex: Female : 1960 Associated Diagnoses: None Author: Sumit MURILLO, Eddi Edwards Procedure Procedure: Lumbar Epidural Steroid Injection with [...] Arterial Pressure, Monitered 106 mmHg . Normal [facility] Comment on above: Result Comment: Elec tronically Signed By: Sumit MURILLO, Eddi Edwards\.br\Date and Time Signed: 08/01/22 11:33 EST Insurance Correspondence Off iceon 07-24-2022 Insurance Correspondence Office [id number] #2.00CD:127 Normal [facility] Patient Correspondenceon Patient Correspondence [id number]# 1.00CD:127 Normal [facility] Coding Summary.on 07-14-2022 Coding Summary. CD:[id number] Gh0bWw+PGhlYWQ+PE1FV VQoE28wdZQxbF7XM3aLJ H9XNCTVUKKPAV2FFX8nk JO8MXfnC0UxdlEl AjmxcBFkND92TBd4LZK3 dIalTFpckL6zjKUhY7c4 OuSeAF29cX92ZZokTWEy ReM5GqOflvlhrLVn V7auHwJonHIiXxi+PHRh YmxlIHdpZHRoPScxMDAl PkMmiQyjAT8oHx6gJBPr LWNvbGxhcHNlOiBj x1txHSRnVGilFX8fmZeb V4VwyED7COCuf9r6Qr37 dHI+QBQnOVJ8nHwmIDqs q014VnLgq7kjREB9 hIVaONrjQVH9O92sp0H8 EDCnAUCfMRW2jBE3pI1m vJimxepfZ6TakDDqToI8 PUT6hKKogJ1nmNtv lzqkyH9hYlx+P00QFK0D JWJQUF1AKft1M9MpBmkm dHI+OI54ZSJhFT71sJEi cXWvj8ekpPa9JmLp DKTkJMB9xIchXDiqw8Nm CHDpI20yrDOda2L1WYQs yCepoTByCbCezEO9dU9a OKryyiwgl2lomssv Wzzuw2zuph68bB67F59f FTkmEQHtSUE7OIJeWYGe dXbrmw9jmJ7dJn7+IDxj r3guh0micWe5XlPt FSSryfDmmCnnYKR4b9Cq Cn85Y2VzjPyqj5KbGrs1 nu96dAUre7I3cFJ3ZKlv WOZgnF9vBNwvIcL3 OUQiMdWkwI82dDLmRLbw Xo7hiPohlCmkNP6dKIGe aqkfEGGjtU0mNSOljEQn zDcjYR7zVFClqkap g429IgNfQSY7TKNunIUq U9SupX8rTxUvDKHjYAEn F6RthYFfJYvgP122DLlr PfC7IHSsssPrL9Mh YHCuwLjxPhD8o8B8Tm9S t2SnjkvhLRD1RRpeMOCb AkP4TaYuWlA8V8QlBgc8 PRTltBxxBH8eU8Zb XVZjpjdelebsjUF5FZBs ZBOgfJ76cCNtKSiwXs0v t1D4a809NBIzYORxgF03 Ep0thEivIWTteJZL nE6pkzfjk3udydkaTvLs HWXwDGe7FBg3RELunDla KyDzIVG8KqW3MUX2vLNj bI0wwPjgiailtP7o Oyc+O11tsO6zCPU5BZE0 bmwcJWUhryAlOQ49BL99 L3AtEtzcmXLowQC+PGRp ybGqbVuuDX2mGrZa j8amd9JlCMtgJ4ChGQLy UZeeDqo1SOFoKFK3sOD1 oZ0vHIUqTEnkh5N6bWL5 F7YojtRgvy6mx5ob XUTmVOwzC36heHLsg1C4 FVQbrTJ7BXIuyQttEtPs vJ58Lei+CWSicJjzg5So Cwuqk4tan2yjbUr4 IjMwJSIgdmFsaWduPSJ0 f7XeXu23V43aWWrgEGGg XKUxKQEhHHCrwAtsgk2r qE4hWq1+PGNvbCB3 nSD0vA0iMVFmBvL8MDsi F569CbRqlWHdYqpgu5fr i2zsiRy2KaNhSWXrfkWg kLyaHBV4v7LwHb94 J95jZKsxWZYgMCCpNXVa YVGaiBbsnd1bcE8gFu0+ CL3ut9prri09rD78kIO+ CBWaBTS2tOrnTKvm BYZruN7nKFgpHkL6JSJw DzQpuK60dNKxFUdeWj6g cThnvOjbTR2dNXEwgtep a546MhFmc7isNJPb tGVgXIufBOS6O59hi8S8 ZZMcKBWkPOQ6rCG9uX1i bGlnbjogbGVmdDsgdmVy cUguSAecMDcmW848 IHRvcDsnPlBhdGllbnQg QiItLUs8R6GjTdf8YVOa mKoxKI3loBJpXQylDg0b hGdfaQunBP9tFRLu yfebu592DjWyp0shCXQc lMByBLyyIJO9U73uw7W5 SHQxOYBkVLJ7iQI0eE2v bGlnbjogbGVmdDsg jxNugUiwYFicLDhxV469 IHRvcDsnPkJpcnRoIERh kER5PM83SJ02aLCzy6E8 pPQ7I2JxXHUbhigd tmlnhWJ6EHWfLKEbgJ92 Yz4vlWrkOu5cAOYtISC1 HEMftGAoL5AqjP7sYrEl WCFuMZLnE9XbjXCf JKarD453OKmiGwS3MRJj rnWqB0YxLRHtoVcaKmW6 t6Z7Nn9WX8W7QK28ZK93 mHDdm8A7yMJ4L2Ie OUAqhrmyhquvsFJ8XBTt CMKugI44Nj0btCcmXr5i XHQxQPP6RSDxnMCvC0Cz iM8eYcRyPRWuTBMc C9BwdWQjCBojC796NWuz QfQ4LJZegvNzE0IcYTSo sGpiPwQ7k8T4Fb6DAHf4 MI55GQ21jDLox0X7 nDB5C1PjUTCpsikkdivb oRE2MKYxTIYvrI38Vi3z jSlmBz5oZVWrKFU1EQCi bYFzC9LawB1eZhLu VGZrKLBmO4XxlUWxILaw C330QAheRfZ3SLVvwjSy F2YhZZCjrTqdKvI4p3J9 Th8FSOVgNA54GUU1 yEA3ZN13LE63H2IwZywy dGFibGU+PHRhYmxlIHdp ZHRoPScxMDAlJyBzdHls YG1wJf6xQIZxKKLc rUqpcPBbMvPmo5clLXOf SEjcWZ7fcZtaY2BjtPV4 IFVvz9i5Sl38Y44hV7Wh dXA+ZATtkDE6uPP9 hL4aSeTaFuG7APhnB516 IiQkyHBhBnfcd2tve2mo lOl8NsB5LVEtcnOrqFyb OYO9i1HlUv38B44w IHdpZHRoPSIxNSUiIHZh xHmqtk7gpZ8hBz8+PGNv lHD4cMD2cY8nUhIyXyE8 BMyeG780OuTamNFb Yzfji3cmw8facDh6SpDg FZNhmwBroCygBFB8h6Nj Re67T2JnfTrlt5OiWaz8 ga89vIZsx4D9pTJ7 W7YcYCOoduqmgXLuoFec CQ1wCBDfptkvHGChlP9k KSTdU6t4NxWhIfC1KOxx A5TgfoG0OWTjbVMx NDfpKOJ3N82cd4M9ERBk PVCkAVI1eVE1nB6gmUlj bjogbGVmdDsgdmVydGlj WTvjBQnzP085SYDh nYonAFPeuO2xTXTdiFGg oFvbVQ0gIVEccpdlXkGL IA0VQUGvCNnTIKNIFYM7 A9FkHjk5EQYqsUen RT7ruJIcVIwrDm8heWey nStyAK3lTULzgffmJVFk zS3bJRRtgPRgiTbwXG5y TVUhrpiub200BwYp KNK0VFTwaAGjS3GohU6u QbFlRFPzYDVrV9KycDBz YEyjN735BSzvRxS0TLKh iuHkH9KwGUFuaYwb ItW0h6Y1Xw8wRD9bLB9t IMSvDX04RC22zBVcv3X7 zAD2N2PsYCFwdjjurrfp qFA5SVLhCHRlyF67 iLIkXMkfBx8za4B2y949 XEHwWFSjrC13Is3xxCzi YUAqgFJXjL4vtqpau3le cjogIzAwMDAwMDt0 DTg6HCTqzMzrShOyJQM8 CcB0DLV0fPShuN7yvQbw rrrbwW6tXxu+NjAgWWVh feT1C0PtUmm6VNUy nPgrUU9guSUvMXzdRt4a sOivmHixIK4yGNCoznzx KJLgkJ3jIEFwoAOjkLnu XJ6aLIHwobtih419 KlJgZJI9DMBltJSfR9Qh tE9hKaFvEYIrGVPxQ6Kp gYHiRNnmK444QOzoVsA5 ZETayzKpI1JnSWCw bXhhGzE0s3N7Bz1OOT2p tBJ3Q0ReDdy0CRUjqWde PY3srJEcSAmcYf6heWzq yYqkPY9pJORowjnd YDDspV5eRHLfgGFocAbp AJ6xINOxoezds935CgRw UXB5YTNbnWLfA7VfaU3c UgHkTHIyUIUxA4On rUNvOYjwB843HDymIzS7 ZAZcroViD6YgTOXqgSku OjR3q0Z0Ev5LLZyyMD1h uwKsXH9tmrP9Q0Bc PjwvdHI+HR15NZEoTT24 bNKwcQNpe3swqMh9FaDe OIIlUZW2bGyxMCmgp1Cz IUQyI56rfZIjf8Y8 IGNvbGxhcHNlOyBlbXB0 bE2rLPgidpjvo1ewnqvb Lkcft0trrm42yU24Z81r IHdpZHRoPSIzMCUi NBXrpCmbpu4zbI4gBi2+ FWGdgTP0zNX0wN9wWcXw MmX1EHvwQ424YvKcePEf Upupe6wue6olbJd6 IjIwJSIgdmFsaWduPSJ0 b3ZyDu86V58lWIxvWVDx QIEpCPFbRQJeeSwxqs5y sG9yIg4+OC6xp6og mc61rJ85nEA+PHRkIHN0 iLwwELuyYQEqcW8eVHeo LdP8LETtKjOuzN54tRTz PFluTp7ytJacyWyg XV5tLELuqcyvs475FrSz w9kdMABghTWjEXcnKFD3 Q50bh4V9TQKuLGBxJJL5 sVI7qA3lkAbglzgo bGVmdDsgdmVydGljYWwt EYeiQ854THGaaPykMjDe jYQhB9kobiJQLZ4nHmxi dGQ+KWXoIWJ2hFia YXaaPBFrhI1aZHVzD4b9 BhPqLxF1FXylN9JqplN8 JKLbmBLqXNNmdWYYqJ7b xtlgp9jcmvadIoXl YPYvAFk9PYd2DHYicHzh ZhHhCVT9IyN8JDG8pAEw oI6hwCaxwuxtnQ7vKtn+ RklOOjwvdGQ+PHRk SIK6dJdqJDusACWyrN5h QICrE2e9VgRcYeD3HXxa C4OgleK2FYGlfAZuEBSu rUEEmI0mxrtrw4mj pdigEpXeWSShEHo6KTi5 XHLjrQhvKcDjAAU7MlL9 CND8lRWoaU3gtGvupkfb bE3fZpc+TVJOOjwv dGQ+FDXhQCC7tUzoPJfo QSRywU5cLQAyB7t2LxIn NpE6CUnnR5UfxhB4SFFh nMDrZJUdzKNYiI2t worrb9goclcdIjQaUKNr WNf9XSb0TYGbzGcpLxPq HOS5YhQ7YXO0oKLoaY2j cZgjjshtsT3uVjf+ TMD6DXL9RL19IQ66D9Yh PjwvdGFibGU+PHRhYmxl IHdpZHRoPScxMDAlJyBz tRjmXY0lEi8sEGZu LWNv (more content not included)... 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 / Confirmed BMI 31.0-31.9,adult / SNOMED CT 416346675 / Confirmed Change in bowel habits / SNOMED CT 649810191 / Confirmed Chronic cluster headache / SNOMED CT 761945742 / Confirmed Chronic gastritis / SNOMED CT 30103467 / Confirmed Chronic leg pain / SNOMED CT 727606633 / Confirmed Colon polyp / SNOMED CT 812037699 / Confirmed Diabetes / SNOMED CT 493355291 / Confirmed FHx: melanoma / SNOMED CT 9485077625 / Confirmed H/O: osteoarthritis / SNOMED CT 964617198 / Confirmed Herpes dermatitis / SNOMED CT 45227262 / Confirmed History of Helicobacter pylori infection / SNOMED CT 8308885188 / Confirmed Hyperlipemia / SNOMED CT 92154859 / Confirmed Hypertension / SNOMED CT 6357354629 / Confirmed Insomnia / SNOMED CT 509385168 / Confirmed Irregular heartbeat / SNOMED CT 873271385 / Confirmed Laxative abuse / SNOMED CT 639132004 / Confirmed Lumbar disc disease / SNOMED CT 8593614751 / Confirmed Lumbar radiculopathy / SNOMED CT 952381714 / Confirmed Migraines / SNOMED CT 09241571 / Confirmed Osteoporosis / SNOMED CT 648396408 / Confirmed Palpitations / SNOMED CT 242972434 / Confirmed Rectal bleeding / SNOMED CT 290104171 / Confirmed Vitamin D deficiency / SNOMED CT 75140258 / Confirmed Objective Vital Signs 07/11/2022 13:57 [...] negative bilaterally. (more content not included)... Normal [facility] Comment on above: Result Comment: Elec tronically Signed By: Sumit MURILLO, Eddi Edwards\.br\Date and Time Signed: 07/11/22 14:43 EST HIP[employer] Forms Officeon 022 HIPAA Forms Office [id number] 0#1.00CD:127 [facility] Legal Correspondence Officeo n 07-11-2022 Legal Correspondence Office [id number] 7#1.00CD:127 [facility] Legal Correspondence Office [id number]. [id number] 4#1.00CD:127 [facility] Office/Clinic Note-Physician on 07-11-2022 Office/Clinic Note-Physician [id number] 7#1.00CD:127 [facility] Patient Correspondenceon Patient Correspondence [id number] 4#1.00CD:127 [facility] Patient Correspondence [id number] 8#1.00CD:127 Normal [facility] Patient Correspondence [id number] 4#1.00CD:127 Normal [facility] Patient Correspondence [id number] 9#1.00CD:127 Normal [facility] Patient Correspondence [id number] 3#1.00CD:127 Normal [facility] Patient History Officeon Patient History Office [id number] 5#1.00CD:127 Normal [facility] Patient History Office [id number] 5#1.00CD:127 Normal [facility] PAP ACOG PANEL 2: 30 to 65on 07-06-2022 . . Normal [facility] Comment on above: Result Comment: Perf ormed at: WB Performed By: #### C BC #### [facility] [address] [address] [address] Jeffry Daniels Age Gdln ACOG Testing 30-65 Normal [facility] Comment on above: Performed By: #### C BC #### [facility] [address] [address] [address] Jeffry Daniels DIAGNOSIS: Comment Normal [facility] Comment on above: Result Comment: NEGA TIVE FOR INTRAEPITHELIAL LESION OR MALIGNANCY. Performed at: WB Performed By: #### C BC #### [facility] [address] [address] [address] Jeffry Daniels HPV Aptima Negative Normal Negative [facility] Comment on above: Result Comment: This nucleic acid amplification test detects fourteen high-risk HPV types (16,18,31,33,35,39,45,51,52,56,58,59,66,68) without differentiation. Performed at: =G Performed By: #### C BC #### [facility] [address] [address] [address] Jeffry Daniels HPV Genotype Reflex Comment Normal [facility] Comment on above: Result Comment: Crit eria not met, HPV Genotype not performed. Performed at: WB Performed By: #### C BC #### [facility] [address] [place] [address] Dr. Jeffry Daniels Methodology: Comment Normal [facility] Comment on above: Result Comment: This liquid based ThinPrep(R) pap test was screened with the use of an image guided system. Performed at: WB Performed By: #### C BC #### [facility] [address] [address] [address] Jeffry Daniels Note: Comment Normal [facility] Comment on above: Result Comment: The Pap smear is a screening test designed to aid in the detection of premalignant and malignant conditions of the uterine cervix. It is not a diagnostic procedure and should not be used as the sole means of detecting cervical cancer. Both false-positive and false-negative reports do occur. . Performed at: WB Performed By: #### C BC #### [facility] [address] [place] [address] Dr. Jeffry Daniels Performed by: Comment Normal [facility] Comment on above: Result Comment: Andra Alvarez, [place] (ASCP) Performed at: WB Performed By: #### C BC #### [facility] [address] [place] [address] Dr. Jeffry Daniels Specimen adequacy: Comment Normal [facility] Comment on above: Result Comment: Sati sfactory for evaluation. No endocervical cells are present. This is consistent with a history of hysterectomy. Performed at: WB Performed By: #### C BC #### [facility] [address] [place] [address] Dr. Jeffry Daniels MG MAMM SCREEN 3D DECLAN CADon 06-27-2022 MG MAMM SCREEN 3D DECLAN CAD Patient: ELISA LEUNG Exam Date: 06/27/2022 : 1960 Gender:F Ordering : DR EMI FRIEDMAN . Admission #: [id number] Family : DR YASMINE DAMON . Order #: [id number] CLICK HERE TO VIEW EXAM RADIOLOGY REPORT [...] Treatments None Family Cancers None LOCATION: [facility] BREAST COMPOSITION: Almost entirely fatty. FINDINGS: [...] M.D. on 06/28/2022 at 12:18 Normal [facility] Coding Summary.on 06-26-2022 Coding Summary. CD:[id number] Gh0bWw+PGhlYWQ+PE1FV YYmF92iuANqeR1HT9gLV Z3EQUWOWQQRNL3GFY2cm ZR2THskL2BzblDn EfjnrPVgSS67PCn7MHR1 vBukGSzhtW3deLYnF2m8 GkPvQL53pC96UWeiQKRw PdM5OxZqdeaglKFz A8laBuAecAChSqa+PHRh YmxlIHdpZHRoPScxMDAl QoMcoPkqGC4tJi3bOFZn LWNvbGxhcHNlOiBj k3cnMOBbNErhIC5vzSnp P6XvuSL3FPKqg1m8Zv44 dHI+HFRhZMH8rFctIKup o149ZrLmj2elJYM9 cKXmJFygGTX6Q94vh7Y5 JEQcAPYgNWA7tKM7gS3h lOldyhcxO2JymJNmRmN9 VAM9nTHwhC7ynOzb mytwyF7vXpa+V06PZK1C FUFMUC0PLdt4B0WpMymj dHI+AC75GPXuEM15qZHt rNLoa5aqoBb3MqKc JVLiLOU3bIrpDPyma0Cd GXThV19xbDXjn2Q0NGIe fRmsuRLuTiEzrOV4jH5q PNdoctjeo0cpqxsm Rujhe6zikj31oT40D26e RPjxOLUaLKH2YDNhGSEd lOhsce1avO1zRu5+IDxj a7clg6mlbQv1TbPd XUVnjeFdfXgwSVK0z0Pc Lo54W1KgdHliz4ClSyp8 cx69sZDda4X1wKN8TMvo XJYyvS2sODxhHiD9 JMVfEeIdkO70kMMtDZcv Ek1boXwudUpoVZ4dIHKd tziyQDLlvE1fYGDuxSUx zDrcAG1dNZTbpmlw j311QsVlUPC2XYCfnGYm E7YybY1nYyWzPBQpWBOs L3XppJFrTHtyO283FOye DxZ8OLImxyKcT5Sc ILLzpDeyWuJ9d9L8Ff6K g6NnjxacIFC7GVctUEJg LnDnZjZtFrS8S4NpUtb8 YPWlcTghNH9xV1Zs ARTsiefszdvavWI3GLJu NFQvvR21vXFvIYvbFd8a c8M9p440FYKtXNKsrZ72 Um0gnZqhDAJrcFDX hL4mcwrds8wjbvhaLbZi CXAqQOm9ZBv0COUpvSmn GmBqBSJ3NvG9DFM0wOOy wA8zwBgnnknkjX8c Oyc+E72coI0oXIM9LBC8 cwomATPuhyVlVI49LF28 S8MtMmsnqHOazYK+PGRp rqQbdLlxNO7cPxFn y2dhr9BdSHlvT9SfNSJd QFbwOvi5LGAnTXE7xDD9 yQ0eUCNyLNdsc8J3rGD5 Q4RjkoUlfy0vm1uw LIBvDIvtM65cxBZco1S5 BOOcfVA3WCCxdCwtRdAw xJ43Gsr+BGDunRyje8Yw Uamuc6uov4tlqMa5 IjMwJSIgdmFsaWduPSJ0 n4TtPx45P05yUWhfCXRi FTDuHIArRZKoiIoblf6j yY7jWd3+PGNvbCB3 uLR6uL3cGKDsKpR2GXjy P059AfHjfYVcHfxcb3ga u2cylZy8JgZhPBLykwEq eBdqXKJ6r6FeOq94 O24lLNwaGTWtMLQmKEKr RLRukGbbgi4hrG1bWg6+ EO2dq4rmra18rP30tRG+ NKMmFXA4jJyrBGxq MXKuvL1vUHsnBtT9FRPk UdZtmY59nLVqDGttLw5w wXgzjTvkPJ3zNMXysfsg x233ZyJme3paFMQu wUQvNYypHEJ5G03ou9Z5 JTYhWXUwHRK6fUR0gN5g bGlnbjogbGVmdDsgdmVy iXtoXEsqUOytV551 IHRvcDsnPlBhdGllbnQg EpYcLEb6E3UjSfn4UVVz rZqnBL7bjYQdYNvzRk9z nGwcpZzbZG7dEMYd pyftw530ElCix2soIFEw gTMwOOdzEYO5I10sp3B0 XTBeZKKiSXV8iAQ5sD2e bGlnbjogbGVmdDsg qmDgsLatMRntWXkuE710 IHRvcDsnPkJpcnRoIERh uRE9SV11RY73uEJsc1Q1 dOL4J6BdUCZlwxpg vkdukSG3ERNdCZBonV88 Lp5zhGcfJv1eAHSeAQX8 NPVhoNJiM6GrgW5xJgZt WERzTBAlL3XwzXBi OYtvK702JVzeGiW2TZRc cbRvN3CzWEIjoZzzOiL8 k0H6Dj8VJ7R0RB78NL06 iWNak9B1uKS0S8Wg POVetnrgodjqiZQ6UDLa ZMPtrN98Fl4nvBfyLu2m UTHxDRC9XSAvgRVxF6Pj qR7kFvXiTUJwTFGa W6WsfVWtIHtjS712SYfv LtE1IZXodxCcK8ZmLJGr sPijTcR2l7G2Dm8AKNc8 FD94IK27oITwo3G7 fFY1E6LvLQKrhppqkqop vTP8WSCiPAWjnO76Yz9a kNyeUi4oDKWqVRF1AVVa pWOkR6ExfX2lXoJh ZXBtVAMuB4DmkQIxURri Q374FWjnVjL6RNRbaoHr I7WfRFFsxIeyFnR6h5E2 Nc8ZCBYuJP31NAE4 lOM1LU47RM60X1UvFjbr dGFibGU+PHRhYmxlIHdp ZHRoPScxMDAlJyBzdHls CO0rXj1yVOLtRUVl gIdaeYPjXjUkz3coBPXr GOonZB8xhJfdJ8CzdJV1 VPSyt9u8Sx90J03kH0Ky dXA+ASHmhNQ4zOW7 oS3iRlMwSuK7OQdaF872 JhUltSWqDbefb4fpu0ib qUq2QwX5SZPziyViePhl QJP5n5IaOs10M24g IHdpZHRoPSIxNSUiIHZh aCtzer8koJ6aHn2+PGNv pTA3rNJ0jM0pRxMeBlO9 OQpaU078RxVomIHq Icyer5bxm3siwWo8ZcSw JAPelrQtnXraAJS3g4Ab Dl15L9FtqRgof4WzFxi3 en45uKPyr3M9qDI5 S2DrFJZunrkvlNJhsTry CO4aDEFdurwqCRFnxX5s MTBkZ2o7BjLrNzE3ZXma A0UyniO8TEPzyUUf ZNhcCDD2W48df3Y5WASe CWZsYPA6gQE5pO8xdWxx bjogbGVmdDsgdmVydGlj XBhtFJgmU232QEPo oRrkRKIziT1oEXOexJAv lObzNR1bPJMzelemZsOH OG2YOWUxSOiNTBZISVA6 Q1WfRwb4BHUvnWmb KS0uvKFbULkcCt2itZhv dXasVT0lCRBhmdjvGXRd bI4bGWMewPCmaCtdKV6g LXTaokeyq398QrFd FEK2FAKaiZXpH7ZfbK7o QiOkPMFmSCKuI8LzbACt LFqcI234IAbzWdB8JSHr nuGtF7FzFZMinPqy OnI1e5X8Qn0sVM4uXO0w TKHdOB24VO92oQHvg3H5 fLB3Z6JwUHWhznyxllyt lJZ7TGLmVRHtxX86 aSEkHUjtQp5af5U3r974 DDNtTXNxmS26Ic0dmJyt USSgnWFOfY5fqmeoe2vd cjogIzAwMDAwMDt0 OYc4WYLwhYhgFsKpYVS8 QkO7JPE0iOEyjO0twUlc fogzfJ4hFqs+NjAgWWVh faK4C1RuTjj6ETTw yHxbSG9lcMNtVVnoMm2h pUyptUcpSW7nCTLvczcu QJRogF9xZKCelWKnfSov QA8qJEDiyvvpv147 GxJkFAN7AUIdlSEoG8Fp lY5lFnVxVRAzFRViZ7Gk rWWwEYtjN424FRqrPwS8 SBKwftOgO3YmUMUj xHomFcA1b2U9Ho6RRG4b gBU5X2PcXcu3PBBkqHvi SV3owZHgWVvtZc2ltIhb bHhoMJ9yLDQwitbr WTElvW4nUFDkySEuxJvi ZS2zMBGjzwvlz380AjDj RDZ2VYZywNUcX6OqkA2a MxFiDJSrNJCnO4Dn dSSdXKguW494TKyaFrR7 FYLoljBgD4DuTJBlfCiw ExR7k5L0Fu2ChQPwNGAm TG71KE60PK41N7Qb PjwvdGFibGU+PHRhYmxl IHdpZHRoPScxMDAlJyBz aRmdXL3oKv8bKPNvJJXj cRxysZDwEaBhh0ij XDBwEUfyBE9qvXnpT7Cu cGA4HVGyn2c8Ea90J10q T6VyxMS+KBJzeFM4xKN5 zQ7zPqXpKcS0NKiu O006CmFuxSJjBmnyr1bg e5hrbCc5OiJkQMOpkmZr jTldGEB1h1QkOd29S11f IHdpZHRoPSIyMCUi ZRUyhEdeob2beG6rVp9+ GWAuvTJ6qOV5hR9fAkEw QjV5DBroR812TxWumFSj OumbZ26gP2XytOY+ DVDeUjp5WRCvjEsiPN9b mGNuJJmcSe5hGSH8RzJf KnXrMSptM7GnBIWvuhjz uhgrhOH7LFYiQCXq sO71Bc3mrMmfSm3vZRNj PUO0ILMxgTEeJ7QqeX7l TqEiYVDoXOOiW3PcdUBd QGbfY712VDaqAyK3 JNCncqPkO8XvRHOyrAxp HoS4r2A2Tr8BuMautOBx QK2hSqXeGZl4X2HoBvw7 CMKkfJtoPC4obFHe HRfxLn6viSagbIvbAJ4t OVYlyfpht927QwMff6nf GHZsbAUgNOjoTKB1B71b m0G0XQTvFQNiWFV9 hCB7eP5vgHpkmyhffUYw dDsgdmVydGljYWwtYWxp F327UNXdgOwfZzGFVdd1 X1KpGbc5YZLhzJif KC4bgBOwCWdxCg7tlQlz pSuqYX9yYVZfcnkfr352 GzOqk4xoIPKwxSKgFWtd ZGM7Z05cu4P6YNOz VLSpNWT1rJS8aT4uiRks bjogbGVmdDsgdmVydGlj WAnoQMjoP229ILVxcMdr Ri7AEry5I8QrXfl5 ZGYyrPsgPM7vzRCxRNdp Rr8xjCazeDouQM7zDFWj xmpvp819DdHlb6lrJXLy dORsTJuuNRF9P94u a0S0IGCpEVMjMFR3pAC5 dE0ayCsyaoybkWBaoAui orInsNueBKqiICijW883 IHRvcDsnPlBheWVy OjwvdGQ+YB55hh88T1Nx YogtFiv4URNgGGO4wVV7 hV4vVQXdSPwzq9Q8nNM9 T9TidfQfli6lb1ym YXBz (more content not included)... Normal [facility] Coding Summary.on 06-25-2022 Coding Summary. CD:[id number] Gh0bWw+PGhlYWQ+PE1FV GJrZ76iaQReqX0KK6xVL W3CRLDBPJZQJH6TVK1sx FH9OEcpI7IuwjUo EtnsuXIqIN46KQp9PCT9 lNycGDbozK3byIXmX3q6 OvEmRW49fY74CUmtDBLh ZzE9QdBloctsvOLg W4beZdFkvTPwHxn+PHRh YmxlIHdpZHRoPScxMDAl TrOuyYtdZQ4aFj4mUSMf LWNvbGxhcHNlOiBj x1ldWXEsYUfzXY5nwMph E3ClgAR4HSCun4v4Xv50 dHI+TRJpYGT5dWnxLYfp f051DjTyo5kbTEE4 uDAtXOejENQ5Q52os5L9 WZRhITSePVG6xVZ3nZ4b lFddzfrtM0NpmXJlCgD5 GJH1dUOfpH5gvVrz qhphcD6pYng+H55YID0J EBGPIP0AQok9N3SnMaum dHI+GK74HYKuZZ77uSOu jGEcf8nhdEv2OuHn LGZfGFR6lExkONwej5Tl LQFeL81yfUJrc1E5IHRk lAhgnSYvEjOvcYL0hR4x MIctjfiep3blbaex Lpupd8qgqz58eB70F93o RLoaMUVtZYC6RNXrXPSg rStpqx6lrM2sRf6+IDxj h7ivl1nutIj2KrAm SVHlyfKkqIfbEGO0y6Ki Ga13W3TrcRocp1FeBzi8 cu58yAVbt2R7mGA1LBbo RTVnpU3qJZsvGhP8 IOKtWcRstZ10lKOjHWwy Ui1fpFdomIkbQN2sEEMq dxuwVADjgD4qHKCzoLQl kBarQJ0zSBTfiejm m043CcFxIZA9GHAbwQAz O8PfgW9xVkCaPAUoMJUr A6EmtNIjHXyhY057HXwz DlG6DEKzffOeT3Dc SLLihKkuPnB7u7Q9Ng4G y1YqvafwKFJ0JVneGONn ZqVuXvWuYaB8R1OvGqr3 ONWffVpoHE8yG2Rm DUHalsxgawxwmCD0RUJa XOOnxW03dIVjMInhJt0z p7U3l002YSFjMAImgK61 Qx3zeBwwBJLvyLCS oL8zkehtr7difjfpToBx VGNuXBj9EVw3XUGeqXqv NdNrBBA3ToK6WVW6wNSg pI4tzNdrxvqilD5e Oyc+X54szS9uVPE8GAD8 eqvlVLZlowDhLD65HV66 X2HsMjpxjCNuiDL+PGRp nrYrvOodGE8uBgJw f6tml6IoEFldL9GcRHTi ZEahGmd6CFEiYVQ8kGF4 dY3jVYInWKyjl7N9nKG6 N4DgsrAxvd5tt7nd TNEoDNdgJ22ssUZxf0E4 XAXkhED4FLBmkBshDvTo yR69Wnp+IWEpxZruv1Nx Vqfbq2srv1dbbJq9 IjMwJSIgdmFsaWduPSJ0 l3KeXi63X13bTSzdFOQu REKvKCFmTCEndKlrmn5x pM3pGb4+PGNvbCB3 dEU2kF3oHCCpRgN1QNlx S945IwJmwRKdFbesp4vs f4rbzPp8XyFkFFBtmrAv hYguYZU6s2HzVz31 W98mPLqyWPOfJNZpZCKa NIDmuPdzie5rzY6sUh5+ BY8tv6hequ60lZ28eHT+ YKZvVIC7kOigKQld QDXerM7uRUccBwZ6XDXy WmMhlM86pHOrQAxwSr4o bQbdnGprJC5vVVKwosqy t562DjIbe9lkMBZw pYJcXNtyVFB8U18fw5P5 CUKjRZBqDEP5uCD4iE4e bGlnbjogbGVmdDsgdmVy mHhpUThdZVnwL625 IHRvcDsnPlBhdGllbnQg DkYnEKx2L8WeWxz0DBDq nWgaME2jgWPaNPtkWg2p iOeebEguFQ4sSALu tafau734FiFax1amOGTg wQTeHSyxLZR1R57cy6P8 HMJqGTKzTMG9bCS6wM7r bGlnbjogbGVmdDsg hrDvdEimIDfmTNeuZ673 IHRvcDsnPkJpcnRoIERh fUV5GE32GQ21wVVtb7Q4 iHX0C5BhOHIxjjso vyosfBV0XYHnTEHzmN52 Xn5saBcnLg3bRPHsRLE1 EBWbnAMuW3JssR4qNhSk MLOuGSNxU5NtcGXw RNedB795KPetSlI1QFGd eqQzB1RtEAIflVqyJsY4 g9B3Dm7BN7K4PH55PR79 zUSba1U9rJI0E5Ua JDQyxdhhrpkqoYF5OGCm DGDlsJ28Bi3mwKjqWj4q MKLvXJS4IYDryDGuO4Wi wN9cPnNeLTMfJHHk T5WigDTxAZbkJ225TIkt ZlT9UXVhkiYzM2KsGJXq mHryWiF4f4D6Mw6MECl9 WV77DH88nCPlh6J4 qRN6J7JfTYYysxvnsgvw kCB0IINuPFLzdM00Jq6b cOaqJw4jDNSsMWA7IUBo kXHrQ6PauK4uLsFf KEHqJOTcJ6DacPDlCGxv L508KSmeUdA2NEUnysVl A9FtYJDvgGkcKiK5c1B5 Nr3PRGZrUK77XUG2 rTI2RP46JD38P6LpLeqn dGFibGU+PHRhYmxlIHdp ZHRoPScxMDAlJyBzdHls GM8hWo6yCYKoVFAj iHzxqBAcBhWlu3ftKZEv NVobJS2liMpeF3DeeWD3 TBDyw2l3Dh41F46gW2Sl dXA+VONbyTS4lDP4 xM7uNwTpQiC7VUelA982 ZhCsvAOzXhlmx5egs9yj lCi3IaT4EMBzgvSwkPxs YRG9e4HzJi43Q46p IHdpZHRoPSIxNSUiIHZh hTxztk6fkO4xSa3+PGNv jYR0vZS8dI7mXoKqYpV2 RZtqR354LxGgrOJj Nkkqa6tpl9xgxTw4ZfMu DLEyghOmhQnfNKR4n3Tj Nx87M1VcgXuxk7OxFuh2 zf49cIFoe9L2hMG5 T7CyNFSbxwdyxOSlcDuk EG3wEHIezbsoKIBwmZ1a ZUIkI6g0FgKrVmH1KVqd S1ThedW1FJEceYWk VAyqMGE3L87qj7C3QAHl QTGeMWQ7fUT4eX8bwLqj bjogbGVmdDsgdmVydGlj KXzvBPumE350OPCj rPbqDPQhtD9oYSFeyUHt kNzjYM1qDEOxwegzEhXL ET6KDBSqYLlBQLKFRVS5 V0BjSew8IVIzmTig YE4ydQPcZPsgVl8pvQnw xWbeLT8rJOFtcchzPSAp nT6zREHntICwpLyeVV1l WZQmgwxja645IsYs YLP1SJBkvAWhU3BqqT3m EqSqJPJbTYMhW4RzrYNt WTqtE022UWcyJcQ2SYBv iuHtK4IvBNUbcBnv MqI4s6Q9Ln6xRY0aXO3w ASWqSP53JS00aVDvu6F3 sZZ6P4XsEXGllehyugpa zGT7VNIhRYOplU93 kNXmYPemZl4bq6Y0h651 DOIkDGJeeX35Ft2qcIdn IBQpcKDHpK8ewyent9ds cjogIzAwMDAwMDt0 YDa9SMXfgJpzVwEeWVI2 XlO1URZ6mDHerG8xdLgo yatyeA1yPnx+NjAgWWVh aeJ9P8OmFqg9CQEt gAbvAB4neBYoCPlmEn1y tCvtzHkhWI2iJMDftxla TNPdnW1mJMHfdZAekOur EK9vSJXovussg949 BzDfBAB8OWYroSVwY8Ct fU1ySbEfCYXdDDTvV2Tw aNNfTEgcS354JZhsUhR1 IHUtzgYbT8DqXQOl eOzcYuF4v3Z8Xt5QTV2x rFE2G8UmGli5VQUffOpt NW8czULvYXvqCa0enDwm rEtpFB1eWYItixqb DAAiiZ8eLYTnxTWjhBdt EA5rCMDzwmhzj282ZoYv FIJ8IKFdwQUtU5MwsD7e ItKmCEFoYECgP7Uu fJWaKEmcR599XConThF3 HTDtrkMrG3QrIRKhsHdb UmA6i5E4Ii7OdAXkRTEp BC19KI49LH15F9Yl PjwvdGFibGU+PHRhYmxl IHdpZHRoPScxMDAlJyBz fJyhLI7eFm5tEFHqWPYh hKixyZJaWhBcr7on MUVvGRfyAW8noLdqR9Jt vWG8DIAkb6z1Qb51O21e X2BnsJT+RLXkcWX9aTH9 iV5nQmBaGqZ2UHvk C658FqWevPWpRseia8yo a8zwpCm9QoKwAQLzjrYv sEgxVVH3x0BjLh67B75i IHdpZHRoPSIyMCUi BTDppZwege3caJ2jMa8+ OXNzcUW0wJT6hX0fYmDo ZrK0EBodR379DjBxiKMg BolwK29hF5ZwpPU+ OANjXzt4PCJpiCgzZJ7f eIVnTDkqMg7vQIF0FgOl FsJdWZsxG9NiSFYrevab rlprkXJ8NJGaWANz tN45Fz5ljZpwLi9kDTLk FMF1ZMQgeMDqC8RdhB1a PiIcFFEcYFSeP6VxlSIn RGepL212WIonYwQ4 OUDajbEeL1PbNGWuoYue PyB5s2S3Mh2BhNonfBYx RN7vBcQqBGj6E0GsJja1 UZGblFfsGG8mbQMo JVipGd0kdEtsdAtzNO9e CQRsxwsfa388WuIwe9vc RPKwuRQoRUlnYHU3A96u w5D5TIRmJSTiOMD2 wRP8eC5xxHpshbxwnEAe dDsgdmVydGljYWwtYWxp V308KXMcyXenYqSYNex8 K0KuNrz7KFNylZvh PF5liEUxVZlqTa9peVnj sFsjTL9xVCTiyfbsg146 LxRwf3wfYCBceKLpUVzx EGC9P09kt7P5HSGj ZSRwFFR7zHV1oN4fbWme bjogbGVmdDsgdmVydGlj XKbxBPxpM421AXUaiOld Ip6JMqo3M1MsMyq9 PDUfnPshXK5svUBpHIux Fy0vdMdbyBkeST5eKHVn mrjpx458EfYfm5cdBIXx iKHzSWytRHL1I15o o6G4DFNdBAHpJSI4kTA9 qO8whXzilxcukOMqjAtg lyLnwAbgKOsbOPfcS221 IHRvcDsnPlBheWVy OjwvdGQ+GL74co12K6Xg PlnlBkf9FABhXFA8yZM5 uJ1gGXGgOShfn6F8zKG1 U9UesdPejk2mt8me YXBz (more content not included)... Normal [facility] Consent for Treatmenton 06-06 Consent for Treatment 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 / Confirmed Hypertension / SNOMED CT 8929914186 / Confirmed Anxiety / SNOMED CT 56302770 / Confirmed Lumbar disc disease / SNOMED CT 3629716072 / Confirmed Lumbar radiculopathy / SNOMED CT 519286503 / Confirmed Chronic gastritis / SNOMED CT 60997605 / Confirmed Migraines / SNOMED CT 76172399 / Confirmed Insomnia / SNOMED CT 038203358 / Confirmed Colon polyp / SNOMED CT 224249223 / Confirmed Chronic leg pain / SNOMED CT 860582922 / Confirmed Laxative abuse / SNOMED CT 432574168 / Confirmed Chronic cluster headache / SNOMED CT 812804866 / Confirmed Vitamin D deficiency / SNOMED CT 21088305 / Confirmed Hyperlipemia / SNOMED CT 52878690 / Confirmed Osteoporosis / SNOMED CT 763861777 / Confirmed 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 Resolved due to patient discharge. Resolved: Impaired skin integrity / SNOMED CT 81520674 Problem added on documentation of skin impairments. Resolved due to patient discharge. Resolved: FH: migraine headache / SNOMED CT 803650415 Resolved: FH: osteoporosis / SNOMED CT 0768146993 Objective Vital Signs 06/20/2022 12:30 EST Peripheral Pulse Rate 57 bpm LOW Respiratory Rate 12 br/min LOW Systolic Blood Pressure 133 mmHg Diastolic Blood Pressure 75 mmHg Mean Art (more content not included)... Normal [facility] Comment on above: Result Comment: Elec tronically Signed By: Sophy Rush PA-C\.br\Date and Time Signed: 06/20/22 12:52 EST\.br\Electronically Co-Signed By: Derick Meza MD\.br\Date and Time Co-Signed: 06/27/22 07:46 EST Office/Clinic Note-Physician on 06-20-2022 Office/Clinic Note-Physician [id number] #1.00CD:127 Normal [facility] Physician Orderon 06-20-2022 Physician Order [id number] #1.00CD:127 [facility] Physician Order [id number] #1.00CD:127 [facility] Physician Order [id number]# 1.00CD:127 [facility] XR Spine Cervical 4 or 5 [...] Coburn M.D. Transcribed by: CAITY Technologist: COLT [facility] Coding Summary.on 05-09-2022 Coding Summary. CD:[id number] Gh0bWw+PGhlYWQ+PE1FV UXpS08jaYGptR3UK9tQC F5RPVAVBIWFNP2WWU8wp YQ9EMvnX5IxpfFn IkyayPRcDC01CKh4OBJ5 gRgrFJbayS0zaKNdH5q9 VxRvFP75oU90DVjpBRUn VtY9JwAagrufhBLa A0otXlCpdRCiNua+PHRh YmxlIHdpZHRoPScxMDAl ZdXckVviTC8vGd1jCBLo LWNvbGxhcHNlOiBj n8kaCCYfOJqkBI4eaJln T2VsyAL0TGPgt5g6Xf37 dHI+ESDpRDZ1zXkzROyb n420GeTzw1ekKPT9 gXOoQJemNNE6H03og3I0 ATIrMYLpHEH0bYL8sW0i zVbcqqtcG6LsaSCjTnB6 ALU0yXEgmE8vnIsv khqgyL4fHmk+V03FDD5A DEGECA5FPio1O7PmOtlg dHI+RN97WTMnTE72hLOd jINlo3lmiFn8YkZb UIMbIHR2gHobDNosa1Ax RETlQ31ghCYpc0Y8HTZt mNjzcMPsFzOnyEJ7qT7a NCrifbzzp9lzopbo Vjwzp3nink22xH52V34j XEvdVXDcFYA8SNBpBBFz xVqllh4teD7cOq5+IDxj a1zuw8qnpUn0ThEw WHIrzlQynCosGQA6h2Ia Mg98J2PkvWgkf5SaHjx4 vy28kECaw4P8cBQ0JTht BJPmiV7bRHiqUuZ7 AWKyRtFaoT58dFQhWDlv Nf6lvJebuPdbEF8wZDKj imgkFYZrnU6zLVDhtOAz pVpvQZ7sGAVkbhbe j685DcFeBEN4QIHwsVOn Y8GqbI2cOpRcMCDcPSFf O5BneKKjFCvoV480HRfc MdO7BJFngwLkO7Va MCGppVvuQhU8q6I6Vo6Y y5DwsazaUXV1QOarNFXt RlS5VnPgYmJ3P1IoFfv8 LBCsuRneDP2jG1Va KEAdfsyrzuqtrDL2IXXh AIYhtB61iWCrQXwbQx9a w3P7q056UMOsHWYxzK09 Rl8tgLxtNEJyjRQT hE9vihetx5mmmxzoLrMi RWKnUXa8TRx5BGKksCvd AqBhXHY3HoW3SAL2aIHc bG6owWzpgilqsZ2o Oyc+F83jcC1qVWI9FLI9 jtyvXDXrkdOeOA69NF23 W3UbSarewDZizKQ+PGRp jwNtaWaaST0nRmAw r7tqm8OkULttP8GiXPMh ZAcyEuv0RSPpCTE3sFP3 kA5mSVPxKMtxy0P6uSK8 L3OcpkRbwg2bd0vb XZFcFIkgV43pqVPxz7H4 GIHixVM3PVMdzNljKsSe tN51Cby+URFxzEzmb6Ec Oemem8nwx0ypdHo3 IjMwJSIgdmFsaWduPSJ0 y8JpHq77T21aWDbmXMXv WZYqYVEpRQAdrLhxso5u fH4nPc6+PGNvbCB3 rYK3lA2tDAGbGxG5DZxb V167ZiOzfXCyGxvxf8ql f0mjuFv4DyTyMYHnbfXu bTygEHD1n0OkNv82 E00hNVgnWPVtIRKrTUGn WTWltRuasz2rxP0cVu7+ AM2mj7pjgw63lX91lHP+ SLVtUSK0lVihPCym BKKixH5aWMsdMrS9LQBg MqGtjR21sWWyTRrdNf0g rIhikDtaIR7vDUOtjmuo j252ObSdv2jqXBMz yVEeMPpvVAP0H72cu0R8 ODOoFHJlCXW2dQY2xO3z bGlnbjogbGVmdDsgdmVy xJdyIOdzGLvuW028 IHRvcDsnPlBhdGllbnQg PqOmQQi1T9QcBzp5DWWz fYlcJC6ahJIjZCvfZf6u tFfpmZwcXK5vUMEg fsfvg685TyAiz5cyCWKr eBWpKCfoAMP7V29hu9N1 PKQyFDVkJTW5kLS6mP3u bGlnbjogbGVmdDsg zmWytWxvEXdlIMrqW735 IHRvcDsnPkJpcnRoIERh lMW9JY10MV57bKMmn2S8 tFV4V7WbMMXpmbjs aybreOV2PRTtBIYkwE50 Vg5eiEaoOt9cALZdLYP9 BIUijOSsW2CadD5sEuXi KQPsQJNdG1AqeXKb DHxbF319WRbvDhK3FTIq raQpL6GaCBSdrEniAlB2 z9H0Fj3KT8L1MF77YA81 eHMav1O9uAX3J3Vx YEFgbuamiwryuPG9RSOc DOObyO23Yl4rvDxwGl2u VGQsIPZ1YQWheIAnK4Vu uH4fDiFuPJGcMNRn N3LjhXXqPCroF329KHwe PfD9QNNjseWsR4DiOYDz vWzzTfH7d4S0Od7QSBp5 UZ11UW76iGCxr6G0 wWC6C3OoHULsggvcfvfx uFH7NHWkQWYbdK74Yt2b qXtpHp4wNIBsAYD4BFMq zRTaY4YgzX8gWuSh GKNoBYCbO1WbsKSmZJip G210KBbiJvD0UHTqhjBk J8PkBAEwkAlgIhB2k4F8 Bp3NRNTiKC64XEH4 vON8ZD83TX23C8ByWsqc dGFibGU+PHRhYmxlIHdp ZHRoPScxMDAlJyBzdHls TU9pEv2aVVZhAASl hHdkdPMmReIan8ijMMRh MYimOQ7fvOjzI0TlkIQ2 ISAgn1i4Nx04K83jZ7Nw dXA+HMDsiWE8pIZ8 oI1qXlTqZxS5PRgbI806 PxWghXNzDaijy9cbc2pk iUa3RdE0VVTrynBemXhe FFZ2n8VvMk98R48k IHdpZHRoPSIxNSUiIHZh vIzwkj9odS0lOt5+PGNv wCM7mCC0wR0gLlNbBtM3 QFbkA531HiVjkZDl Uiffe0uck9xzhCv4LnHe QXDjmeYshNlsOIW9n2Fa Ic13P5DvhIhmh7McSrl5 hk50mMBbz0Z9yHN6 E4XjCFHlwlebjMFrvNbh QY8iLYYyiuuiXMWheJ1h BRWwH2h6IbToAtQ0PDok T7ZwcxN6CMOvkFCm QUpeZTY9F05pa6U1NBXs QBVnURA1vXN9lV1uuOzl bjogbGVmdDsgdmVydGlj UIpiITpsX071JDRo qVdiHFFtjM3pUIPgaVXa oCynPM7rDYLqjgreMrQB OJ0OUKIbVAtHXZMDXVG3 U3KuZpe8WLZukQxz YM0tlSLgJUrlXl3jgVes mIbbAW4uKFQmcrdpUBGs xR0hHNAuuKDahFwwLO5i OBPxrpziw536NjSe QJR0ACEgiDTyH6PdfR6g IsBvXCTaUSBsK9GjkDYo OJnwJ366HTvdOsM6XKFk kmFoQ7FaEBPsnGsz MnU7d9K2Ij0wPQ0pHV4k VJXiAC15YP12zAPol7R6 fUH6K0SyWKZijbnwogrq oFE9WSAaBOBkhU53 yMAiPHfkAg4rw2A6g573 VNGiOUYzrV97Wx9hjFdv LSHenFJAxV0sbhsfu9he cjogIzAwMDAwMDt0 BCa6QKTeyJrxMmAdBOF1 ZmQ5GVZ1oMDtsU5ddGgq qynqlY2rOae+NjAgWWVh qaU2O6UsXic8CEQy iZbdQR2daVVmVCiuBz5u oTsifEhjMP3qVBJlayux DJHyhI9eDAUkoILpjFud TD6bSUKxfbvtb211 JzDbXJA9FKFkxETiU4Wm vV2kLqVjNPZzGELmJ0Hn pHTrYVigF026UEfgUrP7 DRNzurNfV5PgWJGt vQbiApQ7b3P7Wc1XJJ3k sWD9J2OxCml3LRUuyUpp HZ2ylQIsRTfrEw2ipNvs eMezRE9rDDItfreh RMVnwG0qPNVvtBTshZca PR8jUYVcpxtax709YbMs TAM1OSFzuYIpC9MjzC8s IwRzWNOyRBDwL8By iODtPYpwV978TTagMvH6 KHIbtlXnF2ZhUCZnaNvk LiC5i9P6Jr4DgTMiMKHt KM26VE43QJ70W3Bk PjwvdGFibGU+PHRhYmxl IHdpZHRoPScxMDAlJyBz xLjoTI7dLa9tSAUtIPIw wUzgrOLaYgMjs3gn WCFyVKznZQ3qaQynY2Fc yRR3QZQdl5m9Tn51X89x U2NrdKV+LMMnyBS5bXG5 qA4eAmGvUrO1WGqr M603QjGlbDXfJider5bz k1gybDp2TzTzRDIvogQq wAwjXQZ1t0GkAh36A39m IHdpZHRoPSIyMCUi NCIgkIekeh3zvK5sFy5+ JCKnrGJ8cJZ6uY4rEjMi TuF2NCniD188DxHixSVh VmwmP13hS8SdvXC+ GSOwUdo9ADAnyIikDS3i rUSjTZuaXo3fPUQ8PzTc NoSpNWvsH2NaBZUmorte wklhhJS5CFYaEXXg oI49Ro3leYouBh4cXANq MZF9XVBarROxI2WtbL4r VtNsISVrINQbS1PnxSVs RYxjX900BPxuUfH3 SNOmjxPaM2GzPXPwrMbe YaS5r1F2Ia0BlMhcsTYi XU1bZqEzCWh3Z1PbIrj8 AUSfmXwqBR9lpHQs LEqaZb9vuEatzKniQY0q IRAsruqbs417AfIuk7wk NNUdbXMaGGnpVPH2E69t j4L4BKXoFXEvFYG2 zOF3cV8eaIxegdooqTBg dDsgdmVydGljYWwtYWxp J636DIShtHbdKgTAVta1 T3FvXfi4RBBceJcj XH0rtDZeSPvaNx4xxPfi tJmkHI1qKVCbqxvgx507 DeLrq0dmRMKnwDQxBJoh RXC4R39ya5P8PQBy LCFhBRU3wMJ3iV8bqKgz bjogbGVmdDsgdmVydGlj YNzyEHroZ782FFDbmNrs Hx8KVpv6R6TdLvm8 VEUmmGfrZA4chEQsPVrm Hh7rzYqsySaeST4zVCXp anbmh152RmRxd4yuTOEg sALuACjfNIU7R27x y6K4BLQjDJTiYUH7vIQ1 wT1tzQcopajcuJRewJjk tjDexRwdEJhhPLgxN261 IHRvcDsnPlBheWVy OjwvdGQ+XJ40fy15H6Xo KafdAum8MBGuRLN0cJM2 cB1cZORnOChya5I5oUI8 L4BbwhAsah6zn7zk YXBz (more content not included)... Normal [facility] Consent for Treatmenton 04-07 Consent for Treatment [id number] #1.00CD:127 Normal [facility] MRI Spine Lumbar w/o Contras [...] CAITY Technologist: BARBRA Technical Comments None Normal [facility] RAD - MRI Screening Formon 0 05-04-2022 RAD - MRI Screening Form [id number] #1.00CD:127 Normal [facility] Insurance Correspondence Off iceon 04-27-2022 Insurance Correspondence Office [id number] 5#2.00CD:127 Normal [facility] Physician Orderon 04-27-2022 Physician Order [id number] #1.00CD:127 Normal [facility] Physician Order [id number]#1.00CD:127 Normal [facility] ECHOCARDIO M/2D COMPLETEon 0 04-20-2022 ECHOCARDIO M/2D COMPLETE Patient: ELISA LEUNG Exam Date: 04/20/2022 : 1960 Gender:F Ordering : DR EMI FRIEDMAN . Admission #: [id number] Family : Order #: [id number] CLICK HERE TO VIEW EXAM ECHOCARDIOGRAM REPORT [...] Reyes M.D. on 04/21/2022 at 19:38 Normal [facility] US ABD AORTA SCREENINGon ABD AORTA SCREENING EXAM: [...] by: FRANCO TOMPKINS Date: 2022-04-20 11:04 Normal [facility] Outside Records Officeon Outside Records Office [id number]#1.00CD:127 Normal [facility] Progress Note-Physicianon Progress Note-Physician To whom it may concern: Patient has been evaluated for lower back and leg pain. But also popping and cracking. She has done PT in the past with no relief and she continues to do a HEP 3 x a week without long term care phlebotomist relief. She has used OTC meds, anti inflammatory meds and muscle relaxers without relief Due to all of these reasons I am writing to have you reconsider the Lumbar MRI for possible surgical interventions vs referral to pain management for injections, Thank you Sophy Rush PA-C, MPAS [facility] Comment on above: Result Comment: Elec tronically Signed By: Adri GILL, Sophy\.br\Date and Time Signed: 04/18/22 13:50 EDT Outside Records Officeon Outside Records Office [id number] 7#1.00CD:127 Normal [facility] Insurance Correspondence Off iceon 04-11-2022 Insurance Correspondence Office [id number] 4#2.00CD:127 Normal [facility] CULTURE URINEon 04-06-2022 CULTURE URINE Isolate 1 Escherichia coli >100,000 cfu/mL of ORGANISM 1 Escherichia coli ANTIBIOTIC M.I.C RX STATUS Ampicillin 4 S F Ampicillin/Sulbactam <=2 S F Piperacillin/Tazobac chandler <=4 S F Cefazolin <=4 S F Ceftazidime <=1 S F Ceftriaxone <=1 S F Ertapenem <=0.5 S F Imipenem <=0.25 S F Amikacin <=2 S F Gentamicin <=1 S F Tobramycin <=1 S F Ciprofloxacin <=0.25 S F Levofloxacin <=0.12 S F Nitrofurantoin <=16 S F Trimethoprim/Sulfame thoxazole <=20 S F Normal [facility] Comment on above: Performed By: #### U RCX #### [facility] [address] [place] [address] Dr. Jeffry Daniels Coding Summary.on 04-04-2022 Coding Summary. CD:[id number] Gh0bWw+PGhlYWQ+PE1FV VDkK05msMUhuI9NW3gYP Z1MLLNKFWZKOL5UJA5jj CM8GSbeH1RufxSp KwcziCQcQR78YMk3ATC2 aWrlVRpxwI1riZPoP9s4 YbSsXZ29fM41ZBuoIJXt DmO2FfKmiufgcXSq G2uxTfXpaJOfJgc+PHRh YmxlIHdpZHRoPScxMDAl QsYcwXrdDW0nIl1wVFAi LWNvbGxhcHNlOiBj s8mvGRAgBAydQR8zpOsa M8SchKE9UBPwa4e9Mn26 dHI+PJJvCXX1oFqhHCuq s826GwQer0mbUZJ3 vELbBSwnQUW6W51fm3O1 IYVhXKBtOYA5yLI4oU9q oHaprkpkI0ExjGDhBtI4 ZQH1vRDzaW9jbAky zkqosK9pWcx+Q74MHS6B ZTAHVU5OSbc2D9DmHlxb dHI+DR29CRQgUE89sZNt cSPbr7dzxYy1RtVe XCGuHVY1bFeyDIeto8Ym LVFfP74ppPXuz6Q8CPOx jRxboSXsAmIbpWP3nN0l CBflzpfvr0axutgz Vhzyb4adxa55lH27R58h GDvwVWPoKWC8JZVoZQOr zLckss0hkB2jSl3+IDxj n3kub9rpvCi2FkKf CVHdwiVpwBtvNTG4m4Ux Ry63D7VutRecx9IbExn4 uc91sFQfj1N3eHJ1SIjf JMJuaL1bMEosYyV1 TAEgVzYgfO74uHPtCPje Ut0ktYmopFgiOU3sBSQi qxljZIQrzH8nYRYrrDIm mCptXC4bPEDtnlcq k779FfHiCFO5KCOlrEFt L9ZztJ5fFxOhSAQrUPAm H3RnwILsEUzoW047OXid RgK0YLDzqiCmK2Ss AMHlnYtmKcP7q7A4Eu6O e9QucrimOIL4FMotGIJ0 TtCiZcHoUpS7D0JaWce6 KHOprLgmEP6qF2Ou EUUhlxutzczdzFX5OJJk ZHNyyZ92pJOiXMdxMk5t y1D8m251MQGjKVOjyE26 Ze8iyXfiNYByePHG jM8bknsft9cmzlhaDcMz NCLwSIm5FHm1VMQwlPbr QsKdSQT4EqM8UQY9aZOx aJ8nqLlhonirdE9g Oyc+F84ruS9xGOY3CVU8 liugTKHmpgQhHO35IN31 W3MnQmnkaSZkwMI+PGRp ghQqhUlfKO9fKdQo t3qro0BdMQiwA2AtLACl XHxzLsh1NFYwGXG2bCC8 rV8zBVLvZRxmu4Y8wGY0 X6WykyWqtp9bf0om PPJkLUfwX20zrXYzo9W7 RWDaqYP1YNKjwWqqWpVn yM28Amr+VSSymUebf3Sn Smjrk6oot1qopGz0 IjMwJSIgdmFsaWduPSJ0 h9ZiZq57T54vWRngIKBw OUZnCPVfAJEmzFuykj9h hY5aFc9+PGNvbCB3 lWG8eR7pLLJyRlX2KPvj E662IuPonJVpPfxom1po u3pshAq9VwVuNXCgrcFs bNcrBSN2s9YfYa69 K67tXLrwSKPpOHOpOPOo NGXkwGkvpz1tlW0hUr4+ NZ5oa4dcch90aS41gJU+ OHIyWHG9pAtjEDhb IOMghG5rSFtsGbR1WKMp DkMvwO02tQMhIOwqIk0y vDqdeZnbVG8xXHNxzxms s903IdPad7rbAHVc kVZxIAcbAJL4Z71sd6H6 NOZoNGClKJY6nZJ5pN9r bGlnbjogbGVmdDsgdmVy rDbwWUkmXUghD997 IHRvcDsnPlBhdGllbnQg IuFsMZf4O4EsRua7UPKp gNynFZ7umIZwFDqgNn2i nRbabCjiOX6hFHIm ewxkp044EqGui9vlNLRu oCRaWUnyNRY7I87ju2V6 LFQvKWQhNOE7hQK5qE7f bGlnbjogbGVmdDsg cpNusSkcDMldOMlxY302 IHRvcDsnPkJpcnRoIERh hUZ3NR70RS48oRCvo2L0 mRG8O7TaKCIyeygy hfxucDS7WWErXLOldW08 Ud3ugBflDq7vVGStVOC2 DRXerYGvU4IgtY5rJvRb AUPrKJGiN2LkeLTq WVqbY271LWniAmV0XEXy wkMdE1LvWMUseGdlLaG3 y0G3Iw7LF2Z0RE22TJ77 lYJcj3Z9tIQ3G3Yx WZRufgsrscoqdSG0QMSz ZROhmR82Wv7ixRwpHw3m MBLcRLI7HXGxrGGmH1Qr mR1sJoJvNMBsVXNk U1HojWUyDZgdG195RQoy MhR8XKYfikXjS8HnYPXc rFtcMxC0j7V0Ay1TWHf2 MO12MG37zTObc9G3 nBY2G5FtEUDddyajeslu sDB0RVCsHASlgF22Hd2g hQdwTl1kZBCqIEH9YNLp cNIiS6XubP8gOyEq XELiTWEwW1KegUOfNHoz Q008BLqbOzM4AOLbtmTz G4VySTMkcCacFxD1n9X4 Co6QMYOqEN29NXQ0 qDS2AN18XL71K2JbFocd dGFibGU+PHRhYmxlIHdp ZHRoPScxMDAlJyBzdHls BP9eGn7gVPSiCZKk rLqooTTmZrUut2exROIt CVgtPF5ucPvtQ4LnuLD4 PFWwg4g8Yb13B21gD5Bg dXA+IXSyzVO6zUQ9 nI2lUyPrXwY6XUlbG995 ZkNuqUAcYvkql8fqe5qr yYv3OoV9MDRghfSboFsj PXA7y9CaDb35B62v IHdpZHRoPSIxNSUiIHZh eGpdvt3ueG5iNg0+PGNv aJE1bJK5sZ4sPuLoJcT9 EKhkW792JmYdxDAm Nsxdx9ole0gofLw8EpXh HXSfshXgfMnnVPN2q4Xp Ko91D5MjhFfdb8QlIqg8 fd04aNUkt1Y8yAG0 U4NtLJEaecrkzWRehAdp TT2wCFJnkjjjAIJvcS2r VLJwQ3p3WbMnIlP6SBla K8AmjsQ0IWIaxNTr UDvmUTH5J44cz4Z0BUQf DGOuXOE5iLH6sT1uoSjr bjogbGVmdDsgdmVydGlj WVlrYSnaU224WFQw hLwhTJRjjY0oNPYgmHBk eSwgDL4gMFIglclyAwDL GO3GIAWnURxZLNJUQQH6 I3XvGav4OYRqbZrj OO0axWKaFAyzFx1nqKmb bIodAN2dKHXgnhzhAFYj uC7mLPUlaJOhtNllNS7w UOApehmar058YkCr WLG4CTFmqNDuS5EldC6p FiAjOBXsDESqI0FsgBZe YEmrZ460IHguJsI6MLDm enSrQ8PbNQSttJmj LxC4b6B2Eg9iND2zOO1q JOYtJH76NJ32jAXda8Z6 lIP2H3ZzXSPuyhbrsetd yJN2SLLbQGOuxX38 uXOwKPjoGr9ta6N1m229 YLToHMYvrF52Gq4koBzh YXXhcYIJvV8xedjnc7zj cjogIzAwMDAwMDt0 YEu2WKMamXecKhUpBCB5 UwU8GTJ7vHJqgC8reWvn bitlwU5oJvx+NjAgWWVh qlK8F4MrDtr8HEUb hSrdLW7bjNOfNUwuFp1t gYhdcCcyRO7nQKHwzqcb LPZjoU6xJUZukCBcnObe GS7cJKAbyfdce208 NnHlJWG9SQPqoVKpQ9Om jB8oQkIaOEUpBCMbK7Rd oVYbAMtnN758MVirRiV7 IXCbfbSeZ2AcUBJr pBhjJfG8j8L5Kh4LSJ6q hTD2I2RgKsk9GGQpiTok YL3ggLTeTCpyUa0fjMua gCkeKQ0zIBPcjctn DBDcwI9mMBNakZVvvTdy JN7nGVPofyefr942FzLs ZVQ8XETtfWLuD7HdqN3w XmHhJBVdMFUcC2Cu mCAmLCyfZ931FZehMfI7 VLCzftVlJ0OsOIHefSox ThT7e7X5Iy1ZtVGpWFJr AM49NM32JT25L3Xp PjwvdGFibGU+PHRhYmxl IHdpZHRoPScxMDAlJyBz kPeyWG8fNw6yHCLySAMc fNpzeNBhMnUhm3gq ORAqVGanXT2waIugV4Jd hBK5HWUvk6c9Vo77C10u P7EttLQ+FCMtuAT6jWF3 kO7mSbPlElF4RChu A942UqRzcDVhYggmn1le q0gplAj4GyWyXAMoeyEs mDcaTDJ1v1GlFj91W16x IHdpZHRoPSIyMCUi ZJPbrPaowi9pmX4jRf1+ LHSpnKV7mCO2cA3xGrIz PrZ9BCyrR179ApAvuLTo OnmpV28dX7IwwTZ+ XHKtLip5XDLzgMnkAE9z vUWjJCqvHj2qGXE5KlLa XeOiGMfmZ4MqKXUolenm pfcipLX3HNWhNXPd cL06Yn8cyYtvYu8aZRTd ZEB6KZDtiJKoE9LzsM3y CyQzERAvDDAvA3UoyYBg LNcsM128NEpmFjO7 JJXruyFxD0ZaUYJhqIdz QaO7m4E6Ct9NcXbtaRUz OA7mSjGjOLf2X0KgJaj8 VYGrgDzuSQ1ziXIl YMkdKw5fvUoymZajTL8j CXGtylbnv023FvUxh9gm ROEuqFEmCIspAKZ7R97c w9P3HGYvPJZfKGJ2 sUU0vL5ixSwtmrffoBXc dDsgdmVydGljYWwtYWxp J425EECtqRdsYgBYQut5 U4ZlPct2SBKeuPcs DA1alBBpJZfuUx1paOjp eZhzQM5iAEKvcvojr981 LqLhu3zsBPWaqQVtOAjc CCZ5C79vp3U1RSPo DBGmIAU8zNU5qI0zeUyk bjogbGVmdDsgdmVydGlj UDcjYSavN782NYOejOgw Gb7PGwr6S2XlKpe2 CICyuYyqFF6pqSQvYScs Qr6hkChrdDggFO2vRXIq zmjep450FfRsa8grGFHf pNYwCRnfMTG6N18x u7N1FUPzKYLwKNT9xBK4 aE2psGvpaclqlAElsOsq rgEiuYyoDGcpVIuiT107 IHRvcDsnPlBheWVy OjwvdGQ+VU25ss30Y1Ax FjgdWfq6LPOgZBD8cLA0 zA2cIUGoEZdnr3J3mKQ1 T6WdhwHpnp6ts8zr YXBz (more content not included)... Normal [facility] UA RANDOM W/MICROSCOPICon BACTERIA NONE SEEN Normal NONE SEEN [facility] Comment on above: Performed By: #### U AMIC #### [facility] [address] [address] [address] Jeffry Daniels Bilirubin Ql (U) Negative Normal NEGATIVE [facility] Comment on above: Performed By: #### U AMIC #### [facility] [address] [address] [address] Jeffry Daniels CAST NONE SEEN Normal NONE SEEN [facility] Comment on above: Performed By: #### U AMIC #### [facility] [address] [address] [address] Jeffry Daniels Clarity (U) CLEAR Normal CLEAR [facility] Comment on above: Performed By: #### U AMIC #### [facility] [address] [address] [address] Jeffry Daniels Color (U) YELLOW Normal YELLOW [facility] Comment on above: Performed By: #### U AMIC #### [facility] [address] [place] [address] Dr. Jeffry Daniels Crystals LM Nom (Urine sed) NONE SEEN Normal NONE SEEN [facility] Comment on above: Performed By: #### U AMIC #### [facility] [address] [place] [address] Dr. Jeffry Daniels Epithelial cells LM Ql (Urine sed) NONE SEEN Normal NONE SEEN /RARE [facility] Comment on above: Performed By: #### U AMIC #### [facility] [address] [place] [address] Dr. Jeffry Daniels Glucose Ql (U) Negative Normal NEGATIVE [facility] Comment on above: Performed By: #### U AMIC #### [facility] [address] [place] [address] Dr. Jeffry Daniels Hemoglobin Ql (U) SMALL Abnormal NEGATIVE [facility] Comment on above: Performed By: #### U AMIC #### [facility] [address] [address] [address] Jeffry Daniels Ketones Ql (U) Negative Normal NEGATIVE [facility] Comment on above: Performed By: #### U AMIC #### [facility] [address] [place] [address] Dr. Jeffry Daniels LEUKOCYTES SMALL Abnormal NEGATIVE [facility] Comment on above: Performed By: #### U AMIC #### [facility] [address] [address] [address] Jeffry Daniels MUCOUS NONE SEEN Normal NONE SEEN [facility] Comment on above: Performed By: #### U AMIC #### [facility] [address] [address] [address] Jeffry Daniels Nitrite Ql (U) Positive Abnormal NEGATIVE [facility] Comment on above: Performed By: #### U AMIC #### [facility] [address] [place] [address] Dr. Jeffry Daniels pH (U) 6.0 [pH] Normal 5-9 [facility] Comment on above: Performed By: #### U AMIC #### [facility] [address] [place] [address] Dr. Jeffry Daniels RBC 0-2 Normal 0-2 [facility] Comment on above: Performed By: #### U AMIC #### [facility] [address] [place] [address] Dr. Jeffry Daniels SPEC GRAVITY 1.025 Normal 1.005-<=1.02 5 [facility] Comment on above: Performed By: #### U AMIC #### [facility] [address] [address] [address] Jeffry Daniels UA PROTEIN Negative Normal NEGATIVE/ TRACE [facility] Comment on above: Performed By: #### U AMIC #### [facility] [address] [address] [address] Jeffry Daniels Urobilinogen Qn (U) 0.2 {Daysi'U}/dL Normal 0.2 - 1. 0 [facility] Comment on above: Performed By: #### U AMIC #### [facility] [address] [place] [address] Dr. Jeffry Daniels WBC 2-5 Abnormal NONE SEEN [facility] Comment on above: Performed By: #### U AMIC #### [facility] [address] [place] [address] Dr. Jeffry Daniels Coding Summary.on 03-31-2022 Coding Summary. CD:[id number] Gh0bWw+PGhlYWQ+PE1FV BQpF88azUDyrZ9MM8fWB Z4CXKYKFTXXRA7MHK1rv EQ1EFbtZ1OssbKc PcrmsNAnHM48RLj0YQC7 dGwxNXhekO7ijKAoB3i6 LiEfFE91zE11MXxeWGPm QsW1DsIjhtbyhIZj J5vsNfRxkLIuTkj+PHRh YmxlIHdpZHRoPScxMDAl YeNuwUukXA8jRb3oWZJs LWNvbGxhcHNlOiBj g0ryAKWlFAceDM6qqMqo S4QynJS6FEJgo7j8Mw27 dHI+NKIeOBF0bAalOQxw k298LbIta6ypVPI5 oBXiLWkwBQD6U70jm8X7 QAXqBDCoLRL0iGV4tD3p eVgzergiQ0SuhIMrVwW4 OEY7tQJctN4waOgy kwqdpQ6hSzl+Z73KWO8H MQPWRY8FFej7P6XeUxas dHI+AF69SHGnQH90fTVc jIPof3wxjUb4KoNf FCStBWM8zMhgRJafz7Lz XYDgE87vgEYga3M1BZXn jFjwsGAeSxTplPT2gE5i BOmenjlfc0etuqxs Jaiqv0qyni58mP90T15z NMxqVHLwEVO7ZOVqENTy vVmwbq8nxL4xBx8+IDxj b7ufp2pijVm7ImBm SSVuvwXrsSseGPT6o0Yz Bz71U5WxlGnco3RiGcs1 xj95nHRdy1T7hAB0DIsp NHYwuS1hNWmzYjE7 KEIzEhXvlA55oONyFLdn Nj4koIvcvYdwJC6bWAJq gtgyYFQywI7pOWQtoEYy yWccYX6nZOHnrxwi v602GmExKIR6IRKclPZs C6SanD3fXvPiGRHvYYPx Z3IshFYjYEhuV194FCcu LlR7RFQnixGmD9Hf GZQutXmuPvJ2u1W4Iu4Z z0PlfjokJRD2UDaxVRL0 DwT7VlKeUoF6L3LnNdk5 RMTqmUphLK9uQ5Cp RIQfnhbohuzrmWP8HRSu PFXccW82gOBwMPtbBd9u o5B4u605FVLsLVJjkE19 Uw6hzHqdXGWrcFAR gF3jkdcnc7vnkbukYbRf PMYeUJy4IWa8TDDpgTix DbNjXPD2RgC3RQN3rCMr nB4ujQmpnfpxaP4w Oyc+R57ckS7sLSY8QSX9 bdmbRQNwnxNrEY77WN29 F2PeQwnurMIkgNJ+PGRp luTwmKciHY2wCpOt u6ixi3UnPMdhF7NqWOZc PKgvHlj5IJVwDIZ7lBB9 cK1nYDSaDAvlr4Y6bKO8 F9EhcjQosf4ne9km ULZwCIfoC43gcHAkn5Q0 SBJsgRU0XHZmoHpbRbEa hD47Wiw+LYVulHlxp7Yi Ikoha2qyo6ufaDl8 IjMwJSIgdmFsaWduPSJ0 t5WbCb82O67qBMnhXAUp ARXdAKAdGTUeoWkakl1a jY0dZd5+PGNvbCB3 fHZ4rM0bTINwVzM6IZqo G174OmBlmXLlGdboc7kt k2zmbKl8VhXiCKTwnoTd rUwfGHN8s5BoPb68 Y57pVBifXJPzYVRfWXDm GCMsiFzybz1sqD8iNl0+ OD5up7efpa12aL64kWB+ GQGjCNH4jBsqKLdk OXPpcW4dERkwLbD1SXDb TiHfzY21iNKjSYdvLq4n fSmdcMtnVD6eEQWzlcjz r662WwNto0ioYZMn oXJqFUhfOQM7B39la9Q8 RCMcTGRkSTP1wLH7eN9s bGlnbjogbGVmdDsgdmVy mBjnGAuxSUobF079 IHRvcDsnPlBhdGllbnQg StXySTy5D9NoSsy2XYMa zTfrGN2udTLnUAcxYb2l bCzyuQafFL2fECCm hpqxh328WrIxa8liDPKb pKIaZEwoDQQ7B02uh4X5 DCCyHBVfMMP7vOR1lK1q bGlnbjogbGVmdDsg udJylFsgLOmdCJrgL147 IHRvcDsnPkJpcnRoIERh yXR7OP72JJ32kTYxv6F7 hLR6G7SmMFXnaleo vhrhzZA4VWWkEIXxcC17 Gf6foIfvWm1vJACrLYD8 VDSdaKKnA3LjtW8uNtCf JBPxWYKtH5KmtOXz THsuJ138DLfvTiB8HZKm klIoP9MaHJFwvIjeMuF6 v6H5Yz9QQ5N5NS27LQ11 bNBfn8N3aEF4C0Va GJJsclgrxnftiUO7STEf XDJtoJ40Eo6msKsyHj3k JBErYRK5BFFpiUIcZ5Nc vI1kGlDqPJCsSRGw Y7QmbBCtDEhzH066HLir KxB7XMKrizKqO2CqAERa nGezQoR8f6Q0Cj0YMUs7 PG87PY73oMKyx1U7 pGN4N8CdQDBwspubyqty xFA6ONLzUEAicO47Mx9q gFhqUw5wXCTkZNH7YIJl cPEuC3XbuV5dNwSv LGUrDIMmT8CylZNqWPov M447XLleRdO8IDOvyhQs R1SoEDJjhXlyCzR8g8D5 Le9OISLfQW42CAN1 rHR9BX47KW46F6VsOfkf dGFibGU+PHRhYmxlIHdp ZHRoPScxMDAlJyBzdHls PW7kSs6fIWEjHUFx wSiyvBWgCyYjt6mbGTEr AAdpVJ5rqDqtL8MatAD1 OIGvl1b8Fh75A23aV2Ho dXA+IJXytFX1dWY5 hR1xFpYjVcV3HOhtX626 LfIgeGIqGyyuy0dkt2gy mZu0IkY7VXVsvuOeoWyh NVB9u8KjOp00C00i IHdpZHRoPSIxNSUiIHZh zIihak7xiX9jRh7+PGNv sGV0tAG4aX2pXiDiCtA5 NElpZ905MfFxgMRf Mzwyz8ofi9dzrCb0RsYs AYWpltJqzAdqYFL6l7Mx Oq75Z3CmcHcee6XmBor6 fe28tHHzw4Y7gRP8 Y2TmDTIzaepghSJjiQiw WA1jUAYoglbpJGJayK2w FTNdV6n7RwCnWbD9ZTig U9WnkfY2VKBmmLEq XSnuKUQ8L59ga5P8PSMf HUUuJOK2jTQ6uX9bjNre bjogbGVmdDsgdmVydGlj MXnzFFhrR335URTv gBrxZJZfxI2aMUWzgUXn dHxmAG2eCANvvqrpCiNY KA9XEDGdBFtHLRITYXK8 S1ZlIfe0SSZhpBzd ES5hqUVrOXmuHc4mnWou dLngDK8bQGXtmeffXVRc lC6yUGFycAGmsAgaFY3n CZNflfcpe715YtFr WDG6RICmjILgV6XfjF1v AcLnUNPdCBXyH2QnkYFm RFgbE688CMpmVoJ6YIQe hjLaZ6VcGHHpjTzx QrC8g8O3Kq1oOC2cJB2j JAVmLR23PQ81pLLag9P3 hRR7K8SxPAJdbwtfukbi gUQ6JGNiRCEjzH65 fCWfBRnvEv8ex0A4g506 WXZnXYIonB63Ul5qnJkt IABhkHSJqL2vxnmxl4zh cjogIzAwMDAwMDt0 JPg8LMLcuPskIuCwWSY5 CrH9XWS1uTQtuH8qkHml jsrebC9lRne+NjAgWWVh xhZ3V2EiIar1HATn hZwvVY2mrKDnSKuxDo3l tKsdsCnqHF6sPIMqncon HCHijD3wMTBpqJMmmLfb WC2wKPGnjaimu925 LeAyWKZ0WYKfdPCjY7Mz qE1lQnHvDRKgJRUzY1Mt pQOjXKmqL865ESdpUbM3 VEYtawDiJ5BdXLLv aAjlLrQ2x1P7Gz6SHU0t pSJ4F8YmTro0QFNrrJby JF3zpIJtDKumGq5esLsw yAckWK0eMWKwuszs VUJenC9xFEVleQKhqZrv KF8uRALoqshta853PsDr UWQ6PKXolEEpP6CzhG7z YtLlSFXtUNTcW3Ao kPDaMYjuS228YOszMvJ9 MUPlvqAzG5WgBIOncVap NdN1b7S9Nx4UoXErPAUf CQ95XE69GE30Q6Ne PjwvdGFibGU+PHRhYmxl IHdpZHRoPScxMDAlJyBz fKibOH9kQj3kYAJxLRCz iOxmyPOwDzCyy5pm KDUzTUdcGO6neYxhM9Cj pSL0BERrv3f3Kf14D11a X5SboDK+OGUwbTY4fFX3 tS0vLuRuOqI9CLfj Q727TrZyqAFtZrgjg8zv j6ustVc2SsWgJKXvseGw tSdiLGI5u4MhZl40S95c IHdpZHRoPSIyMCUi OJJeaEphdc0loR9xZa3+ SECvtPO0bCI3jL9bEnKd QuJ7GIkoN747MqRymZNb ZhmgW52pH4YbgZQ+ WPEpWbk0RTFohAkuOF1r oDNzRBibJc6fUUN0MlOi AsJdSGdgG3JfXBYjjrbx wwdxmWU7NIMwPNOf lM77Cn8ljJleUo5zVCSe VGA7DSYyfSOxA1BwqW3y EfIzYQJwFJEtM1HmrLVa TEizT899QEhbFvU7 IVOxtjZoK9QgWTRarLsg PwP9m7X5Xz4JbGmogVEp PH3xEnBnZOk8B3UwOdd7 FWQsoWcxCV8trKCi MEvaIf7zjUqmkQapTX1x NSBspnnxb431LrEaf6wz LRJjbKOaNEabJTH9C46s c3Y5EAWoYJMxECZ1 rYQ0fL7mhAfanchinCWn dDsgdmVydGljYWwtYWxp J452UKNuuPkmGgXUVfl1 S0HlMln3FHPsdOcp JD0ujNYrOZyzRz0xyCwi oNdoTK3lHUPnekgcz000 DjZcf6dsIYCudQAvKFok UBL8T81sy2P3WTFt HZMtJMT6lPE7yL4pnSus bjogbGVmdDsgdmVydGlj ROvoGYvyV765GBUnbJby Dm5STuy4N1LnNvg5 UTPdcQapMM8fiNKtQAwq Lb5biTculVpmVK3zMTFr gwrhz045CpXvx6tsEVKq vWZhLTmmRZJ2Z35g u0F8YBDeOKGxEJB4dDR8 jS4sfUeqtsiuyZGziKeh lrFkgTnaZMthRMtgF438 IHRvcDsnPlBheWVy OjwvdGQ+OH53ai92C8Kq NrreYwm2YQYfIGV1jFH9 aW6gCKVkLVhsh5P5zRM6 L8BqwhTnwx1yx6gr YXBz (more content not included)... Normal [facility] XR Spine Cervical 2 or 3 [...] Coburn M.D. Transcribed by: CAITY Technologist: Normal [facility] XR Spine Lumbosacral 2 or 3 [...] Aldo Coburn M.D. Transcribed by: CAITY Technologist: [facility] Consent for Treatmenton 03-07 Consent for Treatment [id number] #1.00CD:127 [facility] Consent for Treatment [id number]#1.00CD:127 [facility] Consent for Treatment [id number] #1.00CD:127 [facility] Consultation Noteon 03-28-20 Consultation Note Patient: [...] needs to get it taken care of. Xazc-amc-mmcylrb anti-inflammatory medications do not help. 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 Hypertension / SNOMED CT 6823023636 / Confirmed Anxiety / SNOMED CT 22694179 / Confirmed Lumbar disc disease / SNOMED CT 9830678771 / Confirmed Lumbar radiculopathy / SNOMED CT 553952153 / Confirmed Chronic gastritis / SNOMED CT 34235538 / Confirmed Migraines / SNOMED CT 31194920 / Confirmed Insomnia / SNOMED CT 238259579 / Confirmed Colon polyp / SNOMED CT 001310377 / Confirmed Chronic leg pain / SNOMED CT 932228553 / Confirmed Laxative abuse / SNOMED CT 337421099 / Confirmed Chronic cluster headache / SNOMED CT 481214086 / Confirmed Vitamin D deficiency / SNOMED CT 47469514 / Confirmed Hyperlipemia / SNOMED CT 46471572 / Confirmed Osteoporosis / SNOMED CT 465548400 / Confirmed Abudl's esophagus / SNOMED CT 758531377 / Confirmed History of Helicobacter pylori infection / SNOMED CT 1321481438 / Confirmed BMI 31.0-31.9,adult / SNOMED CT 451275103 / Confirmed Rectal bleeding / SNOMED CT 493909370 / Confirmed Change in bowel habits / SNOMED CT 679521432 / Confirmed Abdominal pain, RLQ / SNOMED CT 179894838 / Confirmed Objective General: Sitting in a chair Fairly comfortable Overweight HEENT: Normocephalic, normal hearing, normal voice Heart and lungs: Nonlabored respirations. No edema. Musculoskeletal: Normal range of motion of the upper and lower extremities Normal strength of the upper and lower extremities??5/5 Skin: Unremarkable Results Review Cervical x-rays. Done today. No report. Status post C5-6 and C6-7 ACDF. All instrumentation in good position. Impression and Plan Patient is a 62-year-old female. She underwent previous C5-6 and C6-7 ACDF. This was done on 10/18/2021. In regards to this she still has some intermittent posterior neck pain. We had a long discussion abo (more content not included)... [facility] Comment on above: Result Comment: Elec tronically Signed By: Sophy Rush PA-C\.br\Date and Time Signed: 03/28/22 12:44 EDT\.br\Electronically Co-Signed By: Derick Meza MD\.br\Date and Time Co-Signed: 04/04/22 07:48 EDT Office/Clinic Note-Physician on 03-28-2022 Office/Clinic Note-Physician [id number] 1#1.00CD:127 [facility] Physician Orderon 03-28-2022 Physician Order [id number] 1#1.00CD:127 [facility] Physician Order [id number] #1.00CD:127 [facility] Physician Order [id number] 8#1.00CD:127 [facility] Coding Summary.on 12-29-2021 Coding Summary. CD:[id number] Gh0bWw+PGhlYWQ+PE1FV OOpP61ngEUrmO6MP3kPT B8IHJAJYHVGCV9GKW9tn EN8CHwvY6ZahxLt KptzlZDkEU96SUl1FMD1 cHjxQMothU2lkEWdG2l5 LkBhTM73iG06DNssCFTo NyM0KvSctdsvuSCp P9uxAaYllTLcAda+PHRh YmxlIHdpZHRoPScxMDAl HkDphLkdBQ2jOo2rCBFs LWNvbGxhcHNlOiBj g1iwWCWhHRkkEN3flRmf T5QqmNE3VMBmg7m8Rp20 dHI+QSPcORH0lCdjXQfj h584RnQop8kmXPO3 lEQtOTucOZQ0M64ux8L3 WSBlTTDiLPS7hZL8nB4r jLrqypunW9WrqHHvRqD9 LGX7zNLliM6edBxn sgrgyB2aEqs+C65WRC7K CWJWAI4VBhl1O1JlIkwk dHI+BY75ZKLrVR60qBQa cFRsm7rulXy8PxFm BVArHTF2iMumYSprm1Oz IUZiF42jyWLrz7O4ZMEw kCwqlWAqReOecUY7mO6f ZRuazxntj0gqtmpe Ruozr7khzj97nU32W87u EDvxXETmJXD6ZQCuEXEx cCrhoc2pxF3dNn9+IDxj v9dcp8vgtLa1LvDs DYGqdmIbhRqqOLL4i3Xq Rs73C6XiwGlyq3TuYgl7 yc76eQAmr7F9iEJ8PLab QASuoF0kCHybZxX9 GJHiRnPbyO96zPZrONey Av6gtTkpvHpfIK4jDRUa gqdsTDCvoS0lTUWwdFJn tIokER7pWJQsktyr y265TiRnHJD6FGCmpDXr Y4ZtfX0yAkBpPRCcVSZg Z8UpmAQwVBdlD685ZShs UwC0LWTftkWrY7Gh DKWzzXniTqU5p5A5Po9E v4JrucbeMYB9PFlzRWK4 PtH1InKfSkH5L8PaDis3 GYUseZkdKF4bX4Yu LIXwbiribxcykNM4ADJk FHAgnZ77cNOfWXztWn9g p5N6e970GVJfINLehZ49 Qo8ysXklEXYrrPUL kG9ztakmd5llqinhFqPy UYMgCCv7JHf7PRRwyRsm VaAvHMQ5XrX9WDY9aCBz nR7fbVtawnaoaW3r Oyc+K31jnG9mPQN4UAT3 lrmtMVTsnbOiPJ49NK14 V4WjGonbuNAowOI+PGRp ogGspVcdBJ8pNmOh v6gez9PfZUixH5HgRYWu FJcoLyz0SOQeNLW6gOI4 fL9mEQSrKMlux5R4eGA2 B1TjqtMtqq8jl0mc POZfPQfdC71fbGMhy0O7 DHIjnWC8IGGyiGgcGvHq mD19Sti+NDUsxTtmh9Tv Pclhq4bts2gjfLi3 IjMwJSIgdmFsaWduPSJ0 d1WwQz32M66lPKpzJNWm PUQaNJGfUAMyiWfkbs6q dW1cId7+PGNvbCB3 rGM3yX8yOCNnNwU6MMtd R883ItIpzALvXzkhd2yn h4bdmGh4AlAdWRWsgbQv rBrqYBH9o6KbDk72 A74gJMulVPJjKQSgZXLm YXVajQehpi0skH2eTj2+ ZM2cc0jnjc36kD93aUK+ VXKaDJZ1kAepYOad NWAumT9aOOnoHeO1ZBLv McOjvJ16kODkUBbsSp0j vIkyjQpvFF5kFQYgmlad q632EwQlw4qzGHFj cPVaAIylTYP6M37qy6O3 UJLtMDYrCMZ6kTL2cD9r bGlnbjogbGVmdDsgdmVy eCdeXWnlMQnnF683 IHRvcDsnPlBhdGllbnQg UyYrEJu3P8HrFtn9MPZc sBeqMI3nxIQfMHooAz6w sOpwbUrlKN1iNBPr jhmyt770AzQjv7cePPPy jDIiSDhqVTQ3D46hq1I4 BSIoVAYzLDS4eKC9fA3p bGlnbjogbGVmdDsg yyIyyKueAZtkGGokD863 IHRvcDsnPkJpcnRoIERh nFP9WS33JV81tMHtf6M2 oTS6T7QmHFUivxef kpcirSE0RFPpIKIhsH72 Yj2meUbcEx4kBEPiYBB9 WERpmWGtF1VvgM9wMuLn SYOxCMFoU6HmgPIr KTelS776WZipUqQ0WKZc zsVgJ6ZeINHoeRqiKsQ3 d4U9Uq0RJ8I8KU45VZ29 xUIna3Y3oCK2D2Bo VMWfzujaweqvgGO6KZYe KNOwoM04Ki7uaXdcYs1q VNCdMQX2SSZopZXoZ5Uo uB2pDsDrVJDlWFZe X2GkkGDeWNumG526UKpu MyU3ISMhskElT1FyNYVb iMkdGmR0y8N5Qs8OJDp1 AB46WD55bLNcj6Q3 kQE8Z2UwOTIgtkvbkzzz aIV0RBCqZZVypY93Wg7e iOehJq8rWQVxAUO5FHCx mKKcL2AczW6dQfTv JFNpANOdC2GieJZnFJmn J795NGfxMyJ3PQYvcnKe R3NpUXZneEpeXfG9l2P8 Zw1DHXAfQO58SML0 pOC6OH82BX64E0AlPvsm dGFibGU+PHRhYmxlIHdp ZHRoPScxMDAlJyBzdHls UK3dBs7tUSQyFJUc rGyvmDSwKbTfq8bdFBJq HOjcOT9gtCtxR1JpfQG4 FICuz5b5Gd86N35mQ7Sh dXA+MKGphQK9tZG1 gH1lCfCiMcL1ORonG198 AaTjaOQzUrauj3gxt8ct bLk6RwX5GXAxbnJpuCxx LBW5b3JpLt85J41l IHdpZHRoPSIxNSUiIHZh nZsdod8grJ1yQq1+PGNv yTV9rQZ6lB4nLwAsAfV8 FWlrW632GoEpdTQh Mzkrp7ija0tefZf2SiVh HWJdxcJbiMdmIWW7f7Zb Ze63T6EowZfyj1JnNre2 av64hHGvj4B4tDE9 K7ZcARYfmzcylEXuwApv IJ1xPCJbraukZAAomR2s WRCnG2l5GmJaDqD2ERst A6UaqoR8IJXcrHXp BPtbIAL2G58sr1E5BPPk XNBdEXL2iXE1lF3hfQyt bjogbGVmdDsgdmVydGlj IFdiFPhxV273OHZd mCxmNCJnjT0dXNMyzPCu zWibBP3bTHRxufdrZxAZ HG3SMRYfHFzRMFXEPDJ5 B9UkMyr2FCDwtJuo LU1ebEApSVgrHs3wqQky dMcbTZ6vPLNlbydjFUOn cY8oZDLdhDPxmRzpDM5e QDVphyzva475KjBf IAZ5NIQosCQyL4CbsW4l FhMbFTCxFHTfZ2SchFDu GEnzR139XRduJcP2RCUg ckPiF4EwDSQldGvr ReF7e9T4Fi2dQJ4jXJ0u KULiYC11GW39yRSra5E5 jPW7T7NeUVCeibnyvplw aJR3ABPkDLPnaV30 yBDqHUivKc0or5B9n242 QCTkBXPliF93Eg7knOqo YUAtvPDXyU7icmpsv9ul cjogIzAwMDAwMDt0 VPe6IWUlhQlqZwDyWYT9 MqR8AQN3aLCijC2baLik ekdgnE8mTfn+NTkgWWVh ypW9E3AhJfd5UFZv bMfhGC8gvUMbHIvzCu6u gVzlmKukEB3qFMVvvgcx MBFrxO2bYIGueHNdfFqa RE9fKKVfadehs311 IiReWQC5VWQjeHWtP9Pg sK9uJlFfFKAfRREcX2Xw qNNiRLagT699BRcoPcO7 GHZgmwLdN1WgGDAk xItsTbW5p7O2Nz9SWH2j tKK1P3MxHnm1EXTuaGcm CC8ezXHfJKxkDb1vbOrg hKvwXZ0eCMMseefo UCVdcE6lQZSpuZQqkJyq VR6fCULextmdu691YaHi WDX6EVUjdTOgQ5IpoY1g FnEpSTLfCILlM2Ig pFQbVVldH649LGefJvI4 BPHjtsYmI3FjMYFukTax HzY6b4Y0Bw9AsFJtPXHl ZE76NM15GE70O5Su PjwvdGFibGU+PHRhYmxl IHdpZHRoPScxMDAlJyBz sCvrNQ0bHi3pQVSfURPv dXndiIJyUlSlv1ne MAVlJWyvEZ1bfQnwI0Fq cVN2VHSrq4m8Eo64Y72x Y7XgmFC+EORdrDB6iKA3 xF0yFhZsIoQ1OPla K079BqMlgYUpZpyzo1vd m9uukYw8RdCjJVCtnoBh nTjlCBN2z6WmUz22G03z IHdpZHRoPSIyMCUi XUAdxLxivy0ukL6pLo4+ OZDhnED5yHE1tC8eNcBd PgH9BPkgI986SfYphHTb XwvvU71mX5NjvAZ+ NZYhDvj3ZDQcpVneDW6s nUJlPDtzHw7aGIF3IiZn DnNhFYjtQ0BzZXUwgxqi poooaRZ5SSOvSMYj dM85Tq1isIweHl8pEQNn GAG7IDWooKWhS9IqrT8f TcMpMYWkLEIgU0QywRRu BFhjI923EZibFcS6 NQXbmsMzM2NwQFPccNuq UfX7u6G0It0HsCuzfTNs QB2wGdWfSRe0Q5PbXlx0 KVBajDsgUV8ynEJu THpyQr8diKpcaGqbIC3y YTAnvlhoa716IsRih7im IQUldNPjXTeoEDG4S23i v9I6KBSoUKEiFNB6 mUQ9tV9ycTupjvjwdXLu dDsgdmVydGljYWwtYWxp O069LARteFysObZBRnv5 Z9WvZiu4HFTimNiy EC4tlLNvOSkfHb5qkOad dNjqPV0zFIScrtngm469 BgCuu1yxPACaqCHlHHkr VPV6V87uu8F3CPZr RPDqQUQ6tYZ7fV7pyGqz bjogbGVmdDsgdmVydGlj QXpdAThdZ948QMHqoHnz Yz7LCzv4S6XlHon4 ZGDktTdqLP2kxXJmNGlm Lz4ikZuccWknNJ4yQWPp nrbnl878GpTrv7ocCKBl pESbCNjgKQZ0A95z g8M1VUNqPZYhKRW3qGX8 bA4dyYswrtvzdVWppTwz kaEjtVbjQLflIQmxF669 IHRvcDsnPlBheWVy OjwvdGQ+UJ24ki22S1Te FhreBdu9EPMfRHC4iWV7 aN4mGFFuCNbtb0Y1wXW8 W0NnwaIvoc3rx9zp YXBz (more content not included)... Normal [facility] Coding Summary.on 12-23-2021 Coding Summary. CD:[id number]:[id number] Gh0bWw+PGhlYWQ+PE1FV JHhY57lzZHamZ5FT5nHM V4LEMJMQNEBBE1NVV2dn HZ7ECuiK6YnlbTc LwixmBFzTB39NGs5DYM3 aPmiGUwebU4djZFqL0w5 WzLgCI39dP45KCppIZHv FhV5YkCfoxxrdYMr T4wlRgShgAWwTef+PHRh YmxlIHdpZHRoPScxMDAl AcWgyGmtXG4qYq9cWNKp LWNvbGxhcHNlOiBj b5ciFDOqXIorOC7inHwx V7VrxWT7NBBdy9y5Kt76 dHI+YJYwWTH4jKwpFDhw m565PhNey7plLZT5 cILvQWthCCB9L05xx3A2 XXNsDCIiZNA0vCL5lX1s jBowhyxdC4SxbJMcSzB7 JKI1cMIqfP4vvXlu pdkepF3iDdu+L54QVA9T KJWNYX6ZEfb1M0AaEfsc dHI+FV60UQBsYI89pKEl qPRbw0nrgCk7HfZl BFWeTPO7aGrvGYljj4Sg HLGrS02ohGUgs7L4QHWv oDdtfYWkKbHacKY4nK7c RHbjkdcku2tlsttx Bqmkw9zegt56fL48Q85t EJbwVSFaBAP9XCAdILSo cVcaad0kcE8gYi3+IDxj y6zlk4updXv9HiOb QPNtkqRttHriQFO0m8Zf Hx92Q0NeaHclk5PyMsd9 pr24dOOid1E1jVW3JDtl HJUtxR5rXLxaAzB1 FPOvLaYeoL71uKZjNOmq Dg6keRklmZhmYN0aGRLy zakjVYUwjC4cCESdlUXj sCmxCT1vCUHknoox f940FfZhNEV5ZFWqiNOw Z9KfgR1lVaHzYGOxGISe C0PrxMItUApfI812YInz IiV8PVGlsvMsU9Pe BPCeoIiaIkT1y1Y2Ha3V k0DrlzzpZAI5DFisUZE7 HeWpZhLxIbS5K4PvHvi5 FWDkmPazDV6qE7Nl QBShldayfetxhFT1WVGs FUEyjT42nQUkPHlyHy6f l7K5g669VPTjLDSdbY95 Hb6fvFnfWZCogZCP pN8crwqxx0rjtjorNjLl KXEmLEw9SOx0MNJyiPnv ZhDsMIR5QfB7DUN5jQJv wS7xdUjerhnneB6s Oyc+C41utR7zUDO0EWY2 qufcDLBhkfZeUW28FC55 Y1PeXnbmnWTvgNQ+PGRp diYdoIpsPR3yWsOb z7qmd6YjEEnxO4CiJGDi HUsyDla3IINwSNV4wCQ1 iH8oSLOwUGsuk4Y9wRJ1 V0NjdoLjxj0uv2va VTUfUVqkA67ylVVot0U1 IFBvaXY3BUCixHuwXsUo nO00Jnw+KXLnxPayq1Nx Raymi1qfg4kblNg8 IjMwJSIgdmFsaWduPSJ0 v1BnAr55C01wDCauNRCr NVRiBZWlDLBtiJllcl1l kN2gCh9+PGNvbCB3 fGZ1iG8zMJWjTbW1LZmf Z685ZqMvtGYeSbfhx1ye e2oypXv2QhVhXNUrmvFh rUgsRBH0o5ByNu22 V59iYAkbMIVsVJBoRNVi JCSmlNyhsd7weR4oIk2+ XZ5qj3sqor71qM24eYA+ QGGgDPP2bBoiXJji ZEWntZ1lUAbqLeD7RCBt QtWwoW57iYHiISmlUo7g pFlzeGqxLN2oJBBzcgyu j532XeJrs4tgEUWx nHLpESspQTQ0K72pr0Q9 GGRjTHZgIOJ8eBC0cS7t bGlnbjogbGVmdDsgdmVy dEduOCfyAIqmL662 IHRvcDsnPlBhdGllbnQg FqYfGYu2A6QdPqv7EKFo zWtiLM0zgAFuODucQv0b cQlaiTdgJZ8eLATn hjcdh905HaVgc6pyFFJk vYLwHOeiFYK9E05it8Y3 TACvAZEjSIR1eJL8uX8q bGlnbjogbGVmdDsg wwEgpTgnVNcfGRqyH409 IHRvcDsnPkJpcnRoIERh fYD7YB66OS03tIRee6M3 xCK7D7FoVGUeorch ubouwAO4MAOjMIQezF26 Ha5kpNgeYx9nQCCxPIB3 CIMqgJQiC1FqsV7oGpFo FWRnWJCdS1WfqSRq VBgxV270ISgkVsB4MXId asEiU3IiZZTadKldMtQ5 n1X5Qx7PL7N0FN08ZA50 aQPzs7M0wYG0T1Pl TADjltcshztfnLK7GLWx YHToiI26Jx5fxMhaAq2s GDLyVPQ5CRFfuONeS8Ke wE7iVrOoEKCfVUXl W2BjmDLsZZkaQ148IOdg GkD5AKNdcaLpS6JdFNKe iSpeEcM6e0Q9Gt9LCSj8 PO77QQ87jJTxv0D8 oBP2Z7HkAUCcssjexepn uFX0MCPoRZWqbC41Sc4f mVmcSe1oWKOiHBQ6VTGj sRMdV1AfkL6kEiVs WZDhGDSpP3AloLJdEKzr P677HYtyFoU2XLCjqoVn O8TuQZXfaGfoFvJ8k9R8 Cf7HOUYeNR12LJX8 oGI4EF58FK52Y5QxAldf dGFibGU+PHRhYmxlIHdp ZHRoPScxMDAlJyBzdHls MB4uGj2zTXAmFYRd rIhzjJDzKdHce4qpIIEp KLktBQ8rxGwzG9KynKN7 ZHBrw0i1Jo32S79fB0Uz dXA+TEGhjJP5oKT2 eU3qQiFzCrH4KGewL194 OrYyyCIgWvrjz1odv5yq iPu3TcC9KCNhvuWyoIlb PWP4m9CgOz00D34e IHdpZHRoPSIxNSUiIHZh qXaaqt6anH3lFh5+PGNv nKT5uMQ1bU3bMeInBgZ7 BFkpO578UaNwdXUv Vvtvp6xbx4mwmGw5BsZo KSYullPsfGykSJK7h0Kv Ec05W8EayZbio6YnJlm0 hi12kAAol0R4uXO2 C1DcIBIprifpbNRisUuw CX3hLJLtyvuhYSTndO6q EPFmV0m0OzUsFfC4ZCxu N0DuhbA9THNvmDUf CMhoZRP7L70kq0E5WRYt UFGrMHB4oFI7lY7ieKaa bjogbGVmdDsgdmVydGlj UCdnVBflA238XYOg mSmmRLUwbL5fZCAirVOy qMttZS1xAKStpwarYoWM NK5PIGFpNDlSBMNGFQD0 L9XzWxy1TJSiiJec LD1thQAwWBhrVb9llOdl wIngQZ8yOBRldxtyHHTy kX8iTWRyyPQfoWmyQD1m VANdvzzsz992YeXu JHN3VXNumLDlS6CalC3w OnBoEPFeTHVjQ9TrxMYl EUbkT471QCohOoD2EBUf toTuF4XqROLvrUrr VlF4n4Y2Fq2xMD3sSW8c RCPhGB04FR05zVYhs9S6 yDT6Y3TcVPZtxaerzesn tRM9PFWiLHXnlM07 fPRqJFiqVl9cb4M1z984 JZPyADBggX97Bp7zdAhz UTPmvXNVxB6jwemzs7ik cjogIzAwMDAwMDt0 PCw0ECKxkBicCfMmWEZ7 DpT5KRB3tZEijA9tpLsl oecuvX8wZyx+NTkgWWVh qlB5D5RyLtf4WVSo xDpwEN8cvZYuVMkeLm7k cQiznDywWB1lQKHncxbr AGOagR7mEMOupRTuoBbh OO5qRUNdegozy623 RhChZMG2JBEhhWUxG4Zo wT9lHiJrYWPdEFYfD6If zNLqKYyeX378CRgxMdD0 PISlymLdC6WmMRUi yAgnQnX5x4E1Sj3BIV6q wXF9T5OcPlb1BGBkdFaz DN5ybZTwYZwbYu6syUjp jAxkTF2uATLzzmdo ZNAddP9kGIHriHPfuJnq MR0mRXRbrmtxg855LvCp BYC9CNRynPYkN3ZunD4i YnEwPNKhWJSaD6Pr hUYfOZadI261OTjvOlW6 BIYkofXdM0CwOXCtqIzw SpE5l8N3Mp9CyUDuPGBy PL61LB79OL72M9Sa PjwvdGFibGU+PHRhYmxl IHdpZHRoPScxMDAlJyBz yUkrLZ6rOf0gZAOePQXg vWvwqJLdHeGei0ak LQSxUAlvQW7cfHkuO1Aj zKN2ZEYfr4k2Xj96B27a J6DqwGH+REUxwEC4mGM6 oB5cStBxUzI7YLmu T134YpHgpHPeAacpz3qr h9ujlWq9VyXsYMBxwnNy dVzoIXV6u3WzXr42C28y IHdpZHRoPSIyMCUi MUIsrNdqak3yiB7hBa2+ OBVbyHA5cKC7jI4bTiUs UrJ4XWliF174OtTyoYXj ZnwvF47nM3JnhCV+ DEBfLiv5MFOzqZrkEL1k oMDvTCezAo6pURC8JqPd QwNmWNdnG5YzKBPshvte lakfiOP3RCUdOFZb pB12Dy9ppUvlEg3iEZJt VRH2HMOzwBHhM4EgtJ6d DsNlBDLwHPJvA6YayQLr PRbxM180FPcmAvO3 QBGhzgPzQ3IqPNMexBhn SvL1o2U2Bz0HeZrxsBCo JQ9eQbBlQEi2Z4MpBde1 GZAfaSzuPQ3bhGYn YAyrFx5bkBlwnCptMP1w RCEyjgqmz454WbViv9if KJPqfORnIHihSMU8Z72x j8W5ZLUxFNWdVYP8 bLS9vC4otRofntpzyPRt dDsgdmVydGljYWwtYWxp F441YYFtqKyuKeIXUfe6 S6KoQxa8YZNhmAxp RZ0oeQOmASpnKo1xvZcm wPdpJW8zCFYbildva712 PrUpx7kiHPBdfEVwLAov HMA7P06ml6M4SQDb XRRuISD0lPB4hK7vsKia bjogbGVmdDsgdmVydGlj MDljKRkpU070HUIvoTiz Mx9CEcc2K4GyIid6 XTDwjFleZN6qnHScOCbq Nr8dqEfgaRjlBK6wRSXf bmnug815OqNok2coEPWx sDHlUKrpJSX9F51d r2G9LHBbFZLgHVB9vDB7 cL7lpYqhadvraCHzzXkd wvBsfXwwJFstLLorP176 IHRvcDsnPlBheWVy OjwvdGQ+VW94bv74L3Do ZzvsZhj3PORvTJG2dYE3 nB4zGEAgCRwhe0U1yTB7 D9LpinGlth9ck7so YXBz (more content not included)... Normal [facility] XR Spine Cervical 2 or 3 [...] M.D. Transcribed by: CAITY Technologist: MARY BETH [facility] Consent for Treatmenton 12-04 Consent for Treatment [id number] 6#1.00CD:127 [facility] Consent for Treatment [id number] #1.00CD:127 [facility] Consultation Noteon 12-21-19 Consultation Note Patient: [...] has, # 60 tab(s), Refills(s) 0, Pharmacy: [facility]/pharmacy #[id number], 166.8, cm, 10/11/21 14:46:00 EST, Height/Length [...] Oral, Daily, Prophylaxis fluticasone 0.05 mg/inh Nasal [place]: 1 spray(s), Nasal, Daily, Refill(s) 0, Allergy [...] list: All Problems Palpitations / SNOMED CT 054706143 / Confirmed 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 / Confirmed Hypertension / SNOMED CT 2961121937 / Confirmed Anxiety / SNOMED CT 00002782 / Confirmed Lumbar disc disease / SNOMED CT 7084036973 / Confirmed Lumbar radiculopathy / SNOMED CT 601115764 / Confirmed Chronic gastritis / SNOMED CT 94723700 / Confirmed Migraines / SNOMED CT 27897500 / Confirmed Insomnia / SNOMED CT 842994475 / Confirmed Colon polyp / SNOMED CT 508764718 / Confirmed Chronic leg pain / SNOMED CT 862434515 / Confirmed Laxative abuse / SNOMED CT 213948100 / Confirmed Chronic cluster headache / SNOMED CT 357923954 / Confirmed Vitamin D deficiency / SNOMED CT 17691174 / Confirmed Hyperlipemia / SNOMED CT 28987754 / Confirmed Osteoporosis / SNOMED CT 303876954 / Confirmed 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 [facility] Comment on above: Result Comment: Elec tronically Signed By: Sophy Rush PA-C\.br\Date and Time Signed: 12/20/21 12:48 EDT\.br\Electronically Co-Signed By: Derick Meza MD\.br\Date and Time Co-Signed: 12/27/21 07:59 EDT Office/Clinic Note-Physician on 12-20-2021 Office/Clinic Note-Physician [id number] 8#1.00CD:127 [facility] Orders Officeon 12-20-2021 Orders Office [id number] 8#1.00CD:127 [facility] Physician Orderon 12-20-2021 Physician Order [id number] #1.00CD:127 [facility] Coding Summary.on 11-09-2021 Coding Summary. CD:[id number] Gh0bWw+PGhlYWQ+PE1FV SEnM94mpRBkiK5WP3oHB D3NDKQWNJTRFA2ABT8ds LA9GCdrP9GszfJt SagkqZJoBQ74MIn9DVG3 uZtqTCdmdX1miVFcD6d4 DpYlVF07oH07WSmsROMg UhQ8MgSmleqhkMTr Y6ffZvGboSIzFbs+PHRh YmxlIHdpZHRoPScxMDAl YnFhbMaiRY5sMs4bODXo LWNvbGxhcHNlOiBj u5xeRQWjCFsvJF8ilNin F0JqcFR6IOQso2b3Lo63 dHI+UNUdFKP7oMspLVae s996MzXcf3jzIAM2 kSRbZHltMVV1B64ah8C5 HUVsGSPeBZT3zCU2rC9u mRgwlwflQ6YswXRaXeI9 IUB2wNJcbS9raEdo vcvfwC0dWze+U10UTA9U BERBEJ2XIta9S4IfRndx dHI+OJ59LJMjTJ12cQLy eIXbi9mmeJj3OsZe GFNdAIH0wRrxGRkxn2Hm TXNqM55zgODfq8E4OWXm tYgimSEtXfRzeEI0eO7m VEjfdvcxg3xftppc Fwjlj6lcdd97lR14Q65d RKmxWVQnFUX2NNIlOYDa xHdqwj7fsW0rSe3+IDxj t6gdr4twnEu0QjJu LSRitqXwcVbvCES9i1Dd Ze14I8RwqYtbk2LmSel2 he98wSVib1M2mLN4VQgr APPtvN8vAXqyRfX5 JIRsEhFvlM10gDAzMCtu Ro2qgBtmbLrnIU3gLMWg xrpdGEIjdJ8tYPHvyRZl dDfvJG2rURWeyope n123VpCnKRL0JIVweMXv C2YzkC3pYkObGHCrKPBx Y8KmfAVuRQdtK588YNrk OeS4PEMsrfQqC6Ad HHNthYftBcR9u5D5Du7C q6LlqkrgHYH5JIetROA5 PtM7PkAuVmH8Z7PhSwy1 SSIlaXycLY8mO0Vj MBTciidmpkzwpMZ6WCPh LBEluM13wAJhPLiiDg0h s1V0u738YDOsHXGjnJ68 Tu7xmKdoWRFnpSVU nU0ftgfex3ryqqvtPuVz VGJzRGw4IHn5TEFdhIhq SbViZRB5FwG3WPX9gIOj oA4shBmcqcpkoI3w Oyc+I13ovB5bAXS8IOE9 smegGKEiefHaGW17RE84 W5UbLyaxwXSsnNX+PGRp vtQpgGsgCE1dNaOz z8fkz5NfPOznS5NrGRMt RGauUig2RAXeNMJ2qSI7 bB4bQGUhSKwnb7K3wYI6 T0MpkmYxba3di6lj KHVuBYkaL57pgBWek2Y3 MMHzcFH0TWGntMbfEiJw yO48Cdd+IDDfpLnau1Tp Nmnap8qaz2mnnWm0 IjMwJSIgdmFsaWduPSJ0 a5UqXu44H23lMNqmSXGl DHTtHTFvFPDtsJbgxc0c pK6xAm6+PGNvbCB3 pOB0uX4uXCAuGzT8CCso F963IoKxyTXyEvjah6rh u2gspJy7ArNyYXEiajAe hBjbHCO7m7GcLv99 M66nQHnxJAIsKOGtNFBy DYLvxMrfkq4eeR5dAn9+ SY0re8uqtj17oM74lAR+ USWhHDH2fUlzVMgk RGPkfJ4jEKuxYqX7JEKq UqTdwA30oEEoDCwnZy7p hRnabOphFH8iKVRqgksn e597YnYao5lvPVYt pWHjCVnyWTZ0Y61ex2D1 HROzVKVfWGI7wNW1jS0f bGlnbjogbGVmdDsgdmVy pLeuZFuaTOpjG918 IHRvcDsnPlBhdGllbnQg JkXuMKs2Q6KfGfv0FLVm eRafEJ1niDZgIDwlAc6t xRhrnAzgJY9uLVPa frbzf580JfWik6udOXCl eRZbNIqdLZN0Z85zf4F6 XINtBELbCBK8hQP1sK7r bGlnbjogbGVmdDsg cdKnjQzcYGgaPYvpQ753 IHRvcDsnPkJpcnRoIERh iBJ2XQ51MI25dNGlq6X1 uBJ5L3LgTLPlmhhf umjuzOU1ZZEsUPNlmL97 Ky3hyOsvLd0rNSYvXKQ1 HMDwbYQzX0QbsJ0uOnKw ZGQnYRQoK5LtlENh SUllE428NEusItQ0XLGa bcSqJ3SyPQErvIvtFiA8 a1U4Zr7LF8M8GV26IZ81 qKZeq9D4cPR0R5He WUUdnkaybhlltNX3SDKv OPTqoD21Tq8fbNwqBx6x LPYdWOA0SYHlvMGfN5St bV6wUiRdDSTyLVWf M3WocLTjSZauS526ICsy PcF1RCUagvKkV9ZbCBUo jLeySfK9h8J1Tf1SFOe1 FX07CG96eUVyh1D0 jHH7B8XoYHHtpwextobq tKE8ZVDyPSKolV37Bm8m fZinXa4mJQKzFLM0TFPl oLKvY2VgpQ1oXwBk GIWdDGZcC0ZiwNXaPOoc N837HEmiNjQ4ATLwicJo M1KrECMsjAoiDyT1f3O4 Gv1NYKJxVY24ZCW4 zZK2RK01VG87S4XzJyyq dGFibGU+PHRhYmxlIHdp ZHRoPScxMDAlJyBzdHls YF1hLu7oLUKoNLAc uMaqvAXuWlSlq1tnEGOn JGbfIJ3izBuhU5HtjEK6 XEBrd6z6Jv58Y46sG4Jz dXA+CGXsvBI6rEM8 bI5cAvKgRqD2PJdjP318 QoYqyDHpHeenb2tyc8hv bWj7BlS1PJWezrSszFmh OJS4a9RaVh69D89s IHdpZHRoPSIxNSUiIHZh aCabcx3rgD6gUl1+PGNv cHW3hZE1jN7hTeVyKvG9 LRgnV442AqTpgDKz Tgwvk2bdp5harIz9OoXj AJJwatTlmJjmLZL2p0Ns Pg31J3XzhCjcv8EeTiz5 rz81oHUqv6K6tRJ0 V0YuESTtivapfGPeqLqs FV8wOOCyrmzjTFLfzC5x YRNfI2t0PyMnBmP6PDsr E3KsdmH9CBSwaGGu CDsbRYZ4M49dj6J8WFRf NGQrUTK3eGU9yJ5jhCnj bjogbGVmdDsgdmVydGlj GDfuPVwoZ651OUGa xQpmHRZcmG4dHYOgfPBm oOlsQA2vCJYkjwtrXrHC XK4JUWTaKMuNLJPCHEG7 S1AgJyb9ECGhuQpa YP6viNUmDXbmEu3srAud dYzaIN3rZRRexmgpDDAm hM3aAHGqaEDfpSiiKY8y TUYtzdkve813LzJx ZVN8OTVdjADnY7LnzU9b MmZcQNIiLBYgV0PahNBh JJjiC558JZxuWxD8HOEb bnSxC1QiZQVmfJks XoA6v9V6Fz3lAN4aYF4i AVWuZB36UF48yQZls0D5 pMN7R3EfOKPhvpkopagy eWM5OEQvHQFceY62 eFDkCRsrUx9zs2R4k480 RQEaQKDrsA24Pj1agAtn DBZadZFLdJ3ccameb3hm cjogIzAwMDAwMDt0 VWm2FVYccRclVePlHID5 AtR0SYH8xSLofP9rqFou brnqaS9eQqj+NTkgWWVh suV3J8TjNiy0MNLm gXxuIV8kgKGoWFenCl3x dXtfrYrtAT6vWHNerzvk ETFqsS3bAHUfbDFlkDpd IC0hBSKvzmcke826 NsEkTRG7BOYbgFRpE2Kg yO0wGpSaGHBhSKCgA0Ty rAZmSTtuP523DKfjUvL0 XGQdftVpC1OuMPFm dHppBpX5l3K0Cg6ECG8z fLI4E0QhDvn9LSUlsSka IE0ioZFwPQdyFp1grJww pLmrFJ9gJXZxwhdv FARbdF4lKGIcwHZimLup RI7qCYLliodxc406OnHi OQI9TEIljBQlR8QwaT6v DoTkINRcVTZqC5Rl tMVuKQlwS164VWtbHbF1 SMHdfhDuJ8OlTADfxFtq EgO8f4G0Sj2CuYRtHVYv UT17QE20VP70T2Ag PjwvdGFibGU+PHRhYmxl IHdpZHRoPScxMDAlJyBz bCsqXU3gMs1cNMXlQUTp tGoaeTKbAjInk0zs RTFjBQleJM6afRtxK6Cy iJI1QCUjn9n2Ar34A77v K4SqrBD+RXVnsSO2jSH8 cQ1zGkDqBlC6UQmu K513UpJhkMLeApgix3vi q9ddrDr8GdTqZRXpomBj hSodQBC1r8ThRx58B60s IHdpZHRoPSIyMCUi LBSvfXubhs4crR4kJo0+ BGYwnVR2oXF5tW7dNjLk GoN4DQerD832EjQdeHXg CwodM34kR4ImrEY+ XCErGem6YCAajQfcZH7j xWCtPOxvYg6zLSM1MlKd KdJzRStiY1ZqIMBhktgw xvyrtZZ0NGEsHNHp uM48Mp1wgDvoWp4gIAYe JEE8SNJtbEIxJ1TlaY7c FyQrHISlNOUlD0EqgPFf UOuaQ129YTlvGkX5 PLGoxpTbN2FgGGEsyNtu FuF1o2D4It7SoErquZGu TN4iYwFcUIy8S1CwUjg1 JOIvcDelFN2emZTs GOdjVt0asFthuAbkFM4e SEPvekarn089FuSsd3ln CGEffCJzLYnuBUF1Y60r q1J8SISoCFGuZRX1 rHU4eX0ncCwqnrcyiCMu dDsgdmVydGljYWwtYWxp U817MVWabKzyNzSTVpy7 K0PjMrt1RPDdcAgs ZW6erVVhPQaqYt2wiLiy kNsiJR2kQORwtzjoj715 IfQfk7qyLEYgcVOuHOal BAP9A04tv9Y1FQAw ZISzSRU6tPK8sD5epCrg bjogbGVmdDsgdmVydGlj APowLQavT890QSBybJdg Py0DCmy3K0CdOdz0 WVJwmRaiDJ2xhMQyPJef Yi4uwPisuIsaFK4fKPYu kxfgs183LzLdx2doOYYf aFQiXAydAYK6G70h e6P1NCAaJPKzLUG8lAN6 bO2bhUnwbtizxHFzkHwe shZaiKouLHbbWJyeN102 IHRvcDsnPlBheWVy OjwvdGQ+OO40wn98J3Jg TinqOgy5JGNpDLQ3pZJ9 kO4uXOKsLOfib3L0yMM3 X0VlsmHyui4oa0si YXBz (more content not included)... Normal [facility] Coding Summary. CD:[id number] Gh0bWw+PGhlYWQ+PE1FV JYhF21pqWIgdB0BH0pTL X2NBBIMDJIINW7REN1ot YB3ERluJ0OccoGx IusbeCDxES57VWb4RMX1 hPdiBBsxbQ5qeZNiB2b2 MkXgOP78rO11OJweYXWg HzJ3IaUyzfjccTIj Y6ymYzHadSXzQty+PHRh YmxlIHdpZHRoPScxMDAl GeDpiMonGN7jMn2bORFl LWNvbGxhcHNlOiBj b0voFAUhMJkiQR9zmHqv F2DfwTK7IDMpc3x8Sk72 dHI+PBLgFJF6fIhqZIqr n328EgSso5ebFPU2 vWHwUTecSFQ4W13vk1U4 QNGnOPZuUJE3kNV0uT2x yAxwujupQ4UwwCQsVzL9 KUY5bXPonC1dsVoh kegqbS6wZbh+O87UXU4M ELFRHO9FDhy8H2TbHich dHI+IP42VOLeVE03fMMe bMMwo7wtjHs3ZwVk SKYeVCM4zVvgNGzvx3Aa JQXjH86anSKbs7E2ENYb tMilkESsJxRnuZO8gJ7h PWhprzjzl7qqcceb Blrqj5quqr54qH15A23z STmsKPVyDJY6FYOiWEHj vFifwy9blG4cAl6+IDxj y8roz4imbPu8HtEe FTTqcgAltRsjGSD8x1Hy Sw81R6QjwLldr7GhYau9 xe42cDAlx3B8gBF4XHbh HCDxeZ9kGPegZeP3 GWMrWzZoyW64cTQtGMjh Op9qvGqcdBtzPH9wDMVb syscKUMajR6sTSEahPOq uUfdLJ0eGJQbjoof z055YzGgORV9HFXksGIz J7HdrP8nRuXsBHEbCOTa E2YfcITdIHsnZ068UFfx BxM5ZOKsxbGfN4Ez MOGfxChuEaV5v6F8Dt5N z9ZhkgmrPEZ6SDlhKPI9 NuH9YoNnAuP7H5HdYex6 IUYcuJxdKL2aS0Gy CPHxmhgagvwokNC7SBKh HHQvqS02wBHkQNccZm2x r7Q3q633RFItKQZndF76 Co4voLmoCBOfqLAG oO7uqwkpl8ktrgazVwLd HELwBTc7UZc2EBNdlXsr JmZwWVL1HpM1KMI1uJPs bL9hmNjpdzbvoG9w Oyc+R91qbD6rKKQ2PFF5 jgclCBCbohUcPJ66YJ54 A3OgDrcopXKxxUY+PGRp acKjlPenTC0wEmJr x8izt2NeOHzjO1VrXXPg NMinHwg0FBDyIIT7mNZ0 tJ5sEIIwVBnbv2Y7tLB8 D7EhwiMhve3gd4wc VCFoPXvwU98tkTFgv7X5 PKGkaLM9DLRawJlfAzUt tB95Bag+VCPkkWnvk1Ly Lhphv2udb4nvmLv7 IjMwJSIgdmFsaWduPSJ0 y7EdQs18G76bLCmgQBOd TGRrEMIsHXXvtWdrta3d gJ5cWr9+PGNvbCB3 kQQ1cA9cTAOdWoE5SLpb N303ZiTswVJkEobaa1za f8npoEm0MuVfRFXmzcBj kBunMZG5s3VpRn23 J80aDQreIEOjHQAaHRSn VZEvmAhjwx9dgI6qSi3+ TH2rq5wcco89gA41qCE+ TDJvYMG5bTowXTqw FAEesQ7mANjmVvO6PUYr EtYmlJ94vDYwTNgtEj8j aThzdUcpOC4bTXDztmux l700HpLne7bnKEKn aOVrWNvzYYT2W15pd4L8 JKKvAOSkFCJ5oAF5vJ1j bGlnbjogbGVmdDsgdmVy kVyoKNdwLJqiS344 IHRvcDsnPlBhdGllbnQg GeXbPLy1L8FpVow1WUTn oJdbTQ5ekIYjSSeyXt2i yTyloRqeZL0vHHZh wvdml266XzUfj2alKBQj zTJyNHwdYQB7F39zy9K2 IWPvXFEfDSZ4tUG3uQ4x bGlnbjogbGVmdDsg wqTnyAjpRHrpTCumC266 IHRvcDsnPkJpcnRoIERh qDN5FK30SD39xDYnb0Y9 uAM6B0YaRXEnxoua evrzuOS8AXBhJELoaD78 Cf8fzKdhEg1dCRQnSXL0 IDVhkHOuL6WspX0tFqYv ATLzNRNlV2HrsJUd WBizE103BHopGsN5JWOc ihXfQ2DiKHAedLffPtA2 h4Z6Mp4RP7J5BI43YB39 aCWuq6T0dQI8E3Iz WGJdtjmdfkqcmJX8OLVo YYWilV10Lo1rwCpfEs6w YHJpABY0SSPmkWYdO5Dc nT3vMoJoLWVpEJQg S4QheOKbFEhaT265OJfm RhD0TEIpwxYzG3JcVGFq cMtmQrG8b0U2Oa7YYVd8 CZ15MQ95tSZag3S5 jSB2Y7FmRQGvsdeqmexo vRR8AHQxFPWklK64Ot7f nPcgTu9qQQEmWAG0TGKf fGSgQ3PsmJ7rKhZi CVFqCJRxN5VqoJFkILsq W496RQnkYwT8IAPczrYg M6IeQAMbkIbtLpB1r3C4 Qx2AJUMoFK51QIF5 uJZ8BS44WP06J6UuZpsx dGFibGU+PHRhYmxlIHdp ZHRoPScxMDAlJyBzdHls AP9vMu9bEZNxCDNi eOnnmRQoXlAog2mmEILq SVyaVN8sdEubH1BshHP5 HMWuv0z8Ul24H78lQ9Tl dXA+YQItoDM2sYL9 mH8rIzFyEzO5CMxpZ440 XzZtdJLxPdvsf3pno8bu qWn0LxY6XVRfelLswLyi GDD9b6UlZt50T48y IHdpZHRoPSIxNSUiIHZh kXbyph4zmA0xJg4+PGNv kAP9vBT7hM3wSsBmCyI9 PIkyH750VhHtlFGd Dpvwy5bxc1uayOn8OxFl QLQvhcGxsLfhXMD9f3Ua Dz84Y1ObsPgnb7WoBpp2 sh10lTJtm8S4qIA6 O0HdPQElnubcdRCbpPuc DO7cFYKxqassGLLdcS7x SJRhZ4j6UbHnYjM4KFyg D1ZksfX4RETqvUSy WIxrYQD6N35eu5P4ALYt MWRpWVN0aHI1dX7yxHgh bjogbGVmdDsgdmVydGlj SNgeCYvxW042WPKl lKwpVVQfzZ3pDDAsqBOw lZehUI3tBAGgkipwTrNJ GA3RKDZoVNzGCVCSVGS8 Q4UeQsl4JXDdbAft XC8fqNPqYVcwPg8epSsv eUvjCL5eVXYrvfvaDIJp gW6vJLLbjPOicNjoXR0x VTUrbiwfm533IeXv FYT5RNJpnLTtN1UhaA8v KcHmWPXyYRIaO0YqtNMm TEnkV309YBxuFqA3JMZe kjQsU5DeYTSoeCxj MyW2g1J4Ya3kCJ7yTJ7c NCTgUP68TB57yXUso6S9 bIW2V7JlSPQdqgpsqgla gLA1RIPmTAWxiL41 iZIrNEwgPs5av8Z1z814 ZDOzNZSecM73Uo7fbLlo NUNxfXOZzN4iknqxo1ax cjogIzAwMDAwMDt0 BOc0SUXqeOenOvBbCXE6 UtY9JWQ1kENcrF7tiEhu jwqshI3fAkx+NTkgWWVh ccF5N7WmPyx7HHOi kTrlSO6udGVpBUpoFy8o dSgssJeyOX9pXIKgsgpy FWUihE3cCKHbeRNosLyu IJ5lVRBapelvm223 FeUvGLF8DQOoqYNqV3Va pJ3eKqMfGVAjKLZiH5Bt yJQnXJydC192FLrhZfE8 ZRCjrwYaQ4CmNWNs iXaqLwY2j5F7Yo2HBC0t hLR1U5FsGyv8OILxzUcp AW8yvXRyIEguXv4gtFxz mDfsHD1wFTKnaiym MAMqeE5uNGEbgYKgjEmh PP0xPLDxlfngp415XxMj LYI9IVLppEDaC5RekS8u OlAvCYIzNIMrJ8Lm oVNpNBuxQ613GVddFkR0 FKPrniFhV7UdAWOwbQjz ZvY7p2X7Vb1JhULkYZVc ND49HV99GB07W4Av PjwvdGFibGU+PHRhYmxl IHdpZHRoPScxMDAlJyBz uRvgBV6aAk1iLGPkKJJu mYvcjNAqBcUwm4sc VIGcWLrxZZ8agFoeR1Qm wNM0KPDbp7m1Tq71N73x L9WkeTN+WZDoeTS3gIS1 yX8jPlSgPoM0RAag K113MrMsuMAeJnqiv7bf k9kbgRb9PmKwRXHnzpRy pUnoHJZ6g9CqXa90F62n IHdpZHRoPSIyMCUi YWLmhSevxd4baN8uQo4+ PRTtsXP3qNX7tL7wPeMv XyI4LLydR501HsHghJFr UjsxM46iD8JnhHU+ ROCvUmb6XFPspVxgDI8m mKAcIUumWl2yUEK9UrPw FuNgVWjhP5LfYBPxwurc wqlplGD1JMMfHYOp oV54Ui0kkKkqWa4eAAFt AAP7GXQrbEWiN4McqB9d EjWrMAUkXIIxD7DpnCFv NJppO737BGnrFyG5 POQiqxBvS6DfIDFouZuh PsJ7i4H4Rb4LlVrlcMSa LI9rChOjPFk1V6ZiQhx4 FLNrhLtmLY7mrUKp GRnmYu2kyLwhqQnrLB9b ZVIeguyrn346XwAlw9qn ZVAakFVmIFbaYTQ9J06x m3F9ODJtCXKhALO2 jPC3hS3sbVhbljhhmJUb dDsgdmVydGljYWwtYWxp I509AKGedRieIyFWCam0 F8PwZtk2KYNspWfb BT0ymQSkGDcmCh9niCsq oHywUP7tIFPnhlrlm902 JpXbl8vbPWGrnQIvVYmo IEF6C74su7M6XNAn ECQxSFW1eRW2eL0omJff bjogbGVmdDsgdmVydGlj HNoqHLhjG163DQHluTri Fx3APnh5I8HkYgq2 CBNluYvsHK7wnBJgKXcm Ut5fdEcgoHxsGL2rINOe kplqy399CoXxl0qsORFc bLObICtjKUF7C11y g1K5JCAuTUAnTVT8fFT0 dQ3srTmfkraziRYypVdn zsMweHqdWPihXIkxK063 IHRvcDsnPlBheWVy OjwvdGQ+QP33oz15Q8Wa HtauDuj9RFNbPXS1rLB2 zO1sXPSjIJmib8J9xVI8 M3MpaqJwwe3dr3kg YXBz (more content not included)... Normal [facility] Coding Summary.on 11-01-2021 Coding Summary. CD:[id number]:[id number] Gh0bWw+PGhlYWQ+PE1FV SHfE81ndYLovE6CP0sKS C7DGMJSAKCEGD5GKZ4yj OS3RLtgY6PxhfFs QorewMQkDX19DAh9SLL7 vIrrZNcwpG6ncRWqL5i6 EcStGK39wD10EThpHCFo MlH8GcRaugwaySUt O6kzHfXipLTjDml+PHRh YmxlIHdpZHRoPScxMDAl QmEpaArpZN4fBs5vXMTy LWNvbGxhcHNlOiBj m9ewNTYnJQeoTD3zeHwj Y2LmmSQ3PBRkt1i1Ua09 dHI+RVGsSOE2fYdlGCdd x192YnYxn8xvXWR9 oSMoZJvcETI3K02ea0H8 YZKzFAOyEPL9rFS3fB7h bJaqzgqrA1IzxYVtFwG5 JIJ2jCOpmU0raQgb pecrdZ5uVet+J43PBI2Z MDQRDF0IEre2V9IlXrpe dHI+SY43VSXyLK30bBFd iKTyy1epqGt8HvHn OGYoWNS9cMsmUJbtq3Dy BNVcO69myDGwz3D3QCFa yWgqvXVnWuPjoNC4fN6f VNgsgjndm0ystgly Asxsu8xstd01rI73F37d GTxcLKKyRNM9XDXhILYa tSdlpl3whL4bOk4+IDxj u9yho7gehFm5VvBd GLEtggEkhErvVEO0q0Li Yz32G3ZycPzei4ZhEfy1 of22eCRwn4H3jGN4CGuv PMFwuZ9dDWlbUqI8 NBJgHuRxdS90hARzIGil Nm2tzGlldLxqAK6vYODj wrdtZZQqeM3aSNOszHCn hWizYZ9tWFQcukta i738SyPfNWY5BAXoaTYl P9AyzM8jJeOwSWElEUFt T9OrhQNhBVgkI558IFwh AcW3FZVfbpKoM3Bn ATJlkHqvDtI5s8C9Hc7B w1CqvjfeVZY9JLgxCWMo PrP2ZbTdEsL8T2OhYxe1 UFKfoVnjXF1gU4Ir ZUKbiujwrioheKI7ZAFj ZADvxO18iMInKOlgFd0p g7M8u072YNFoMONlsD78 Xa5gwXldXVDvkRMJ qL9cjitwu9wouvryPtDq YLAbMVg1XVb8PACvrHen NaSuXKU3IlR5OMR0oXUk kH5bdJsabvarzP0s Oyc+N12pyY9hBHD7YIQ2 mawcHJRwoyJrVU46OS15 S8OsKgtoqHIsiDD+PGRp tfZwfKijOH1fNgBb e9jpj0DyNQxdD5UuSDCi TTpbGug6IEDmLMU0nSL7 yP7gRFMpTEjpa8H9iNP6 A9WeqlImuf8iv4ac PBIgAHnzE54byQExb3J4 KHUmfUY1FWDwgKgbZrQp eY62Thf+PSRoxQsov2Mu Ytnof3wqv9mxfYc9 IjMwJSIgdmFsaWduPSJ0 z2ZhHv05Z02iCKcyWIIg HSDwNOJgPAGdkJomnv1n eD9aLd7+PGNvbCB3 iSP4bU3vHONoAlB0OTkf H900TkDyqAKcXrnwc7mx h2iytGa9NlUqQCLrlrDg xIckXPR6g1DsOz35 O21hCOslOZFtFINkNKRt EWUzdIagvu0wgP6ePr2+ UQ5if7nlpc54sH98wKK+ UQJiBPB8ePjmJLxs DTHkjE1kNNmhKiX6BWIp MjYbzD19cNCrFXunBy8i sIcldLxrBS2sVTNimeie r550YnClx3reGFUs yGKoYJokTCM6W46sy5M8 LYOuASNuGRC9bUJ0mM8j bGlnbjogbGVmdDsgdmVy gDgcVRoiCLpxN082 IHRvcDsnPlBhdGllbnQg SoWzTSb2P5SsZly6EAXr xCbvGK5jcXBcGJjxDt3i lNrrmIejKE2eEQVp vhnjr382FpTbw8zmVQHf zTDpHJkfYZE7K48wz3M0 KUKzKFCqAIG9dBD1vA6t bGlnbjogbGVmdDsg ruTexWzlUFhzGYdvU936 IHRvcDsnPkJpcnRoIERh dVJ0YJ05MT12pPDds5T0 bCW3N1InURRutujb qjvfoLD3FJVnXCQuvN78 Do8heMqlTj2lBZYpSYE3 FZVytNAvE2YtaE8cBgGh STEsIRMfC9IkqQAw MLowL015QShkVsT1EHPf erTaM0AkMWBluFouWqG3 y6R6Sd9ON9V2AL15EK89 dCOcx2A1pRO5M3Pz KLNaujdjkgxenKD8APKi TMLgbG48Tf7ytTbjGl0m UYSkXXS2JCKzmJUuQ0Uu rV1pPdWsGUReOLCh V6BqxKUtAWozC415VGid WjJ1QBXuobKfD6AsDHRb aEzlEnK0e1Q9Ex2TATp5 LM08LH83cPTyd1W7 xGB9Y4EuKGQlksjkkzdy pHV7VMIxKJVktT84Hy5h eZbhOb9bBEJgRQA7GAHl kVPkL4WqzD6wJfIm LRVrWEQbB7SzzWEgAIvq U986BMqpXsT1NPDaqfPs H8GnJXRfoMlwTfM0u1J2 Kx2ZEHUdVY42XMG6 kNO3IX28FH66U8RfTmuj dGFibGU+PHRhYmxlIHdp ZHRoPScxMDAlJyBzdHls UQ2rIo6nROGjEULy gPexzNQoYkGhq8feXJLm CKspOU5aaCzdH0XfsVZ4 XYLpa8j0Rg29E12uI3Bi dXA+XPDqcHB8mBB8 iZ4fAtIqGvH5QOzgY932 HcUlwYPyXjjch6miq9zt uTu4IqF1YTWulhMffLgf RXA7g7XnOh92K34p IHdpZHRoPSIxNSUiIHZh hGaucb8pcV0rKe7+PGNv zYT1tUX9iN4iUrAcKoH8 ZRoaY696MjGxdZEo Vcgpw2hut6gckQr1WyWk MZWzxzSrdYjyIYR5d7Su Fr89P2ZsmZofj4KyQqo4 gs32hWYnw2E9eKS2 H5AmHEWonxdckJOmsNaj DC0oBOQyfnuqXGWdyU2b KQLbP8x4FaXbTxA2OGde K0FdhqC6UHLhnHPs BIdpOMB1L19mj2K5DNDw ZANtDBY6vGE4tO4uaWsv bjogbGVmdDsgdmVydGlj JGtpKGygI559XYCj xFicDFInpR4pEFScgRTc sSjyFY1sURZuochkBkFC NU4GDJRyLOjGLMCLUMH8 C6DxKbc7KANfsBsl ZN5omBFwFNkbWz6euIwj tIofPC7cCXJtrjixAVPg rB8gKCDsdYZemSvuVJ1g YREqphdej525ZmLc RIF6OPWiwUTfK1DijM3y ZtSdBSPyJRSrR6MkvFKw YNrvI045XOodTxN9DJEb loGxS7QtRYAucIcb KxW1e3W4Ha4kFY6lMO9r MJZjRX49QE96fGXhr8E5 yJB2V4OmZOQkzvfcifcm fLI0PGChHSRjdL72 xSElLYhnGr7xe6H7l657 WGQvISWlwE67Ya6xkSnq KCBxgCRHtB0acgypc6hd cjogIzAwMDAwMDt0 YBv9SDUhiNxcHiZoICT8 ViM2EVH1kIEnqX2nmPgj wqphxO2tJbm+NTkgWWVh pzS9R1PwNir9AXEj rRaqLG8mzCOvUAntLb0b zEckiDwpXP7ySPYjfawv TIOjuI2pOBLgvSSvcJgx RO9kHOBmtiivs581 RlKaNRW5KBCxhBCoY4Qa bS8tLdVvVSEdMJNaS9Gx aCTaMVyrJ949QLptCgT5 BKDkywDzO4TqUJFh rOptNxH4j9M7Wn5VIO7n vWF1L6WcWoa9PSYrxHll IX7wtVGwQFnePo0rlKls qIpeVX0lIKOzwjxf MPNosW9gQWYddJSopFsm XK8wFYVdynuww692YxBe SOT0UXEwcRKkF7JloV5w GwRnOLNnFEFeD8Hh vBOjZSssY988JVxqOnR3 EQJbfyCqK1SfFHKfuNfp MaG9m2I2Xb7JzXNsMQUb DG46XY04WQ70X7Cw PjwvdGFibGU+PHRhYmxl IHdpZHRoPScxMDAlJyBz vQetAE6oZc2yRLTcBYLy qUfgfFVuZtNvl1hj DVAzVGknPP3dkUviJ9Pt dTH5MAOcl2o0Xw30D11n U1PyiHU+PMFtdAT4kYV5 yB4xWjCxZxE5VZyw S074IePgiPDmQlcdg5ux h1izhXb6UqAuOWAjbmUn tBtwUXZ5i7PfYk30U20m IHdpZHRoPSIyMCUi ASPgxUevhf9toY7hAc4+ MUJwiQM6hUL5gO2bAuPf EyL5IGjqO065HxUluJFv HlyiF03jJ9EnrEQ+ SHEdPws5OYIxgMckWX5g bHDfVDdfTf7hIRT4IyRo TqUoSYswS4CnKPNrptnm rsixnBA2IMIgFZLf dO65Yp0swPcsNf6rIGNo KLP6QJNcfNQkV4MnqH2r SsQsTXNoNTCxN2XihZWw DTmvU173KEorKeL2 HUBjlvPkK3UsNLRbuYce InP7x7A1Bv4AcLezgXOb IP1tTqEnJSb8Z1OkWnm5 EATukUjwBS9dmMAy EVbwGq3tdFetcVosTY9x ZMFrxfgaz881YbWap5yn KHVsuLYbKLixMRC6H51c d8A3VHAiHOVkAXQ3 vME7eS8nuHfiynwehEHd dDsgdmVydGljYWwtYWxp W977IECulVbbAlOHVpi4 U1QyCpj4GBEtkYaq UB1jgCXtOSsuHr6yqDho xQpgVZ1oCMGbedupl520 MwHuk9iwPLOffHBjRUcv XVX5E25qq1U5AXYo TYVyIDT7bDI5cZ7zxGav bjogbGVmdDsgdmVydGlj QQlrRWirV426TNYvqKlm Jq7RBbv4U5DdFiy6 CPDuoHupLX3wvMMjFCbe Mg3wkIcjsJgjXC2hJACa pasrr689YdSvd4nrAMCz vXAuQLebZFF7Y35r l1F5MLIaFNBxUJU2fMJ1 xR6ipZqhnakiwSQzlYhv roVraDteNQtoCRoqF571 IHRvcDsnPlBheWVy OjwvdGQ+PC09he03X7Up YvcqStw9ERZgJWZ9yYP1 hT4dQNZoUHuho7T0wCO5 R8ZrlpZjtw5id2qa YXBz (more content not included)... Normal [facility] XR Spine Cervical 2 or 3 [...] Olivares M.D. Transcribed by: CAITY Technologist: SULY [facility] Consent for Treatmenton 10-05 Consent for Treatment [id number] 6#1.00CD:127 [facility] Consent for Treatment [id number] #1.00CD:127 [facility] Consultation Noteon 11-01-19 Consultation Note [...] has, # 60 tab(s), Refills(s) 0, Pharmacy: [facility]/pharmacy #[id number], 166.8, cm, 10/11/21 14:46:00 EST, Height/Length [...] Oral, Daily, Prophylaxis fluticasone 0.05 mg/inh Nasal [place]: 1 spray(s), Nasal, Daily, Refill(s) 0, Allergy [...] list: All Problems Palpitations / SNOMED CT 222393786 / Confirmed 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 Hypertension / SNOMED CT 6358749205 / Confirmed Anxiety / SNOMED CT 91821585 / Confirmed Lumbar disc disease / SNOMED CT 9427891011 / Confirmed Lumbar radiculopathy / SNOMED CT 570442827 / Confirmed Chronic gastritis / SNOMED CT 40423309 / Confirmed Migraines / SNOMED CT 49302529 / Confirmed Insomnia / SNOMED CT 481265333 / Confirmed Colon polyp / SNOMED CT 965317617 / Confirmed Chronic leg pain / SNOMED CT 270219305 / Confirmed Laxative abuse / SNOMED CT 312434494 / Confirmed Chronic cluster headache / SNOMED CT 728599453 / Confirmed Vitamin D deficiency / SNOMED CT 83015374 / Confirmed Hyperlipemia / SNOMED CT 06494501 / Confirmed Osteoporosis / SNOMED CT 788509597 / Confirmed 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 Normal [facility] Comment on above: Result Comment: Elec tronically Signed By: Sophy Rush PA-C\.br\Date and Time Signed: 10/31/21 12:26 EDT\.br\Electronically Co-Signed By: Derick Meza MD\.br\Date and Time Co-Signed: 11/01/21 07:42 EDT Office/Clinic Note-Physician on 10-31-2021 Office/Clinic Note-Physician [id number] 3#1.00CD:127 Normal [facility] Orders Officeon 10-31-2021 Orders Office [id number] 7#1.00CD:127 Normal [facility] Physician Orderon 10-31-2021 Physician Order [id number] 9#1.00CD:127 [facility] Orders Officeon 10-28-2021 Orders Office [id number]# 1.00CD:127 [facility] IntraOperative Documentson 0 10-25-2021 IntraOperative Documents [id number] 6#1.00CD:127 [facility] Vital Signs Date Time Vital Sign Value Performing Clinician Ruba miller 12-22-2024 11:16-0400 Body height 165.[address] 12-22-2024 11:16-0400 Body mass index (BMI) [Ratio] 24.13 kg/m2 [address] 12-22-2024 11:16-0400 Body weight 65.[address] 10-10-2022 13:14-0500 Diastolic blood pressure 68 mm[Hg] Sophy MakeLeaps [facility] 10-10-2022 13:14-0500 Heart rate 62 /min Sophy MakeLeaps [facility] 10-10-2022 13:14-0500 Mean blood pressure 90 mm[Hg] Sophy Rush [facility] 10-10-2022 13:14-0500 Respiratory rate 12 /min Sophy Rush [facility] 10-10-2022 13:14-0500 Systolic blood pressure 135 mm[Hg] Sophy MakeLeaps [facility] 08-22-2022 13:06-0500 Diastolic blood pressure 61 mm[Hg] Eddi Arana [facility] 08-22-2022 13:06-0500 Heart rate 65 /min Eddi Sumit [facility] 08-22-2022 13:06-0500 Mean blood pressure 76 mm[Hg] Eddi Sumit [facility] 08-22-2022 13:06-0500 Respiratory rate 16 /min Eddi Sumit [facility] 08-22-2022 13:06-0500 Systolic blood pressure 106 mm[Hg] Eddi Sumit [facility] 07-11-2022 13:57-0500 Diastolic blood pressure 76 mm[Hg] Eddi Sumit [facility] 07-11-2022 13:57-0500 Heart rate 77 /min Eddi Sumit [facility] 07-11-2022 13:57-0500 Mean blood pressure 99 mm[Hg] Eddi Sumit [facility] 07-11-2022 13:57-0500 Respiratory rate 16 /min Eddi Sumit [facility] 07-11-2022 13:57-0500 Systolic blood pressure 146 mm[Hg] Eddi Sumit [facility] 06-20-2022 12:30-0500 Diastolic blood pressure 75 mm[Hg] Sophy Rush [facility] 06-20-2022 12:30-0500 Heart rate 57 /min Sophy Rush [facility] 06-20-2022 12:30-0500 Mean blood pressure 94 mm[Hg] Sophy Rush [facility] 06-20-2022 12:30-0500 Respiratory rate 12 /min Sophy Rush [facility] 06-20-2022 12:30-0500 Systolic blood pressure 133 mm[Hg] Sophy Rush [facility] 03-28-2022 12:43-0400 Diastolic blood pressure 69 mm[Hg] Sophy Rush [facility] 03-28-2022 12:43-0400 Heart rate 51 /min Sophy Rush [facility] 03-28-2022 12:43-0400 Respiratory rate 18 /min Sophy Rush [facility] 03-28-2022 12:43-0400 Systolic blood pressure 135 mm[Hg] Sophy MakeLeaps [facility] 12-20-2021 12:28-0400 Diastolic blood pressure 79 mm[Hg] Sophy MakeLeaps [facility] 12-20-2021 12:28-0400 Heart rate 51 /min Sophy Rush [facility] 12-20-2021 12:28-0400 Mean blood pressure 97 mm[Hg] Sophy MakeLeaps [facility] 12-20-2021 12:28-0400 Respiratory rate 18 /min Sophy Rush [facility] 12-20-2021 12:28-0400 Systolic blood pressure 134 mm[Hg] Sophy MakeLeaps [facility] Encounters Encounter Date Encounter Type Care Provider Facility Start: 12-22-2024 End: 12-22-2024 Patient encounter procedure [facility] Pre-Admission Testing 2 [facility] - Pre Admit Comment on above: Preop cardiovascular exam (Primary Dx); Hypertension, unspecified type Start: 12-22-2024 End: 12-22-2024 Patient encounter status [facility] 2 [facility] Start: 12-22-2024 Encounter for preprocedural cardiovascular examination E[facility] Start: 12-22-2024 End: 12-22-2024 ambulatory EMI [facility] Start: 09-10-2023 Telephone encounter Tiffani A Arpit [employer] Work Phone: [facility] Physicians General Surgery Start: 09-05-2023 Telephone encounter Tiffani Levi Arpit [employer] SERV[employer] Work Phone: [facility] Physicians General Surgery Start: 10-10-2022 End: 10-11-2022 ambulatory Derick Meza [facility] Start: 10-10-2022 End: 10-10-2022 Patient encounter procedure Sophy Rush [facility] Start: 08-30-2022 Encounter for genera l adult medical examination without abnormal findings DR EMI FRIEDMAN . [facility] Start: 08-26-2022 End: 08-27-[address] EMI FRIEDMAN . Facility: Start: 08-26-2022 End: 08-27-2022 Encounter for general adult medical examination without abnormal findings DR EMI FRIEDMAN . Facility: Start: 08-22-2022 End: 08-23-2022 ambulatory Emi Friedman Facility[facility] Start: 08-22-2022 End: 08-22-2022 Pain Management Eddi Arana [facility] Start: 08-01-2022 End: 08-02-2022 ambulatory Eddi Arana Facility:[facility] Start: 07-11-2022 End: 07-12-2022 ambulatory XXXX NONE Facility:[facility] Start: 07-11-2022 End: 07-11-2022 Pain Management Eddi Arana [facility] Start: 06-27-2022 End: 06-27-[address] YASMINE DAMON . Facility: Start: 06-27-2022 End: 06-28-[address] EMI FRIEDMAN . Facility: Start: 06-20-2022 End: 06-21-2022 ambulatory Derick Meza Facility:[facility] Start: 06-20-2022 End: 06-20-2022 Patient encounter procedure Sophy Rush [facility] Start: 05-04-2022 End: 05-05-2022 ambulatory Sophy Rush Facility:[facility] Start: 05-04-2022 End: 05-04-2022 Patient encounter procedure Sophy Rush [facility] Start: 04-20-2022 End: 04-21-[address] EMI FRIEDMAN . Facility: Start: 04-04-2022 End: 04-05-[address] EMI FRIEDMAN . Facility: Start: 03-28-2022 End: 03-29-2022 ambulatory Derick Amita Derrick Facility:[facility] Start: 03-28-2022 End: 03-29-2022 ambulatory Derick Meza Facility:[facility] Start: 03-28-2022 End: 03-28-2022 Patient encounter procedure Sophy Rush [facility] Start: 12-20-2021 End: 12-21-2021 ambulatory Emi Friedman Facility:[facility] Start: 12-20-2021 End: 12-20-2021 Patient encounter procedure Spohy Rush [facility] Start: 12-08-[address] EMI FRIEDMAN . Facili ty:[facility] Start: 10-31-2021 End: 11-01-2021 ambulatory XXXX NONE Facility:[facility] Procedures Date Procedure Procedure Detail Performing Clinician Start: 08-01-2022 Epidural injection of lumbar spine using fluoroscopic guidance Eddi Arana Comment on above: L5-S1 CHRISTY- 0% relief Start: 10-18-2021 Cervical arthrodesis Sophy Rush Start: 06-13-2021 Epidural injection of cervical spine using fluoroscopic guidance Sophy Rush Comment on above: C7/T1 CHRISTY-minimal relief Start: 05-26-2020 Esophagogastroduodenoscopy Sophy [facility] Start: 05-06-2020 Hemorrhoidectomy Sophy MakeLeaps Start: 09-04-2017 Colonoscopy Tiffani Munson [employer] Work Phone: Application of pelvic traction Sophy MakeLeaps Comment on above: for 8 weeks in 1988 for left broken pelv ic bone Aspiration of ovarian cyst A phillip MakeLeaps Comment on above: 1987 Bone structure of left navicular Sophy MakeLeaps Comment on above: 2019 removal of pieces of broken bones Deviated nasal septum (disorder) Sophy MakeLeaps Comment on above: 2003 Excision of lesion of skin A phillip MakeLeaps Hysterectomy Sophy MakeLeaps Comment on above: 1993 Injury of right ankle Sophy MakeLeaps Comment on above: Dr Fields Ligation of fallopian tube A phillip MakeLeaps Comment on above: 1984 Operation on lymph node Fredy marianne MakeLeaps Reduction mammoplasty Sophy MakeLeaps Comment on above: 1989 Structure of left sh oulder region (body structure) Sophy MakeLeaps Comment on above: 1986 Plan of Treatment Date Care Activity Detail Author Start: 12-22-2025 Adult BMI Screening Adult BMI Screen ing [facility] [employer] Start: 12-22-2025 Tobacco Screening Tobacco Screening [facility] [employer] [facility] Start: 04-06-2025 Influenza vaccination Influenza Vacc ine [facility] Start: 01-29-2025 End: 01-29-2025 Admission to same day surgery center 01/29/2025 7:30 AM EDT - 01/29/2025 8:15 AM EDT Surgery [facility] - Surgery [address] [place] [address] Kesha Davila MD [address] [place] [address] [id number] EXTRACTION CATARACT INTRAOCULAR LENS [90885 (CPT )] [facility] Comment on above: EXTRACTION CATARACT INTRAOCULAR LENS [40431 (CPT )] Start: 01-29-2025 Subsequent hospital visit by physician 01/29/2025 7:30 AM EDT Hospital Encounter [facility] - Surgery [address] [place] [id number] Kesha Davila MD [address] [place] [address] [id number] [facility] Surgery Start: 01-29-2025 End: 01-29-2025 Xcapsl ctrc rmvl insj io lens prosth w/o ecp EXTRACTION CATARACT INTRAOCULAR LENS cataract right eye 01/29/2025 7:30 AM EDT [facility] Start: 01-28-2025 End: 01-28-2025 ambulatory 01/28/2025 4:00 PM EDT Support Visit [facility] - Pre Admit [address] [place] [id number] [facility] - Pre Admit Start: 01-15-2025 End: 01-15-2025 Admission to same day surgery center 01/15/2025 7:30 AM EDT - 01/15/2025 8:15 AM EDT Surgery [facility] - Surgery [address] [place] [address] Kesha Davila MD [address] [place] [id number] EXTRACTION CATARACT INTRAOCULAR LENS [64242 (CPT )] [facility] Comment on above: EXTRACTION CATARACT INTRAOCULAR LENS [78963 (CPT )] Start: 01-15-2025 Subsequent hospital visit by physician 01/15/2025 7:30 AM EDT Hospital Encounter [facility] - Surgery [address] [place] [address] Kesha Davila MD [address] [place] [address] [facility] Surgery Start: 01-15-2025 End: 01-15-2025 Xcapsl ctrc rmvl insj io lens prosth w/o ecp EXTRACTION CATARACT INTRAOCULAR LENS cataract left eye 01/15/2025 7:30 AM EDT [facility] Start: 08-28-2024 DTaP,Tdap and Td Vaccines (2 - Td or Tdap) DTaP,Tdap and Td Vaccines (2 - Td or Tdap) [facility] Start: 04-06-2024 COVID-19 Vaccine ( season) COVID-19 Vaccine ( season) [facility] Start: 04-06-2023 COVID-19 Vaccine ( season) COVID-19 Vaccine ( season) [facility] Start: 04-06-2023 Influenza vaccination Influenza Vacc ine [facility] Start: 12-21-2022 Adult BMI Screening Adult BMI Screen ing [facility] Start: 12-21-2022 Tobacco Screening Tobacco Screening [facility] Start: 09-04-2022 Screening for malign ant neoplasm of colon Colonoscopy [facility] Start: 1974 Depression Screening Depression Scre ening [facility] Immunizations Immunization Date Immunization Notes Care Provider Fa cility 05-26-2022 influenza virus vaccine, unspecified formulation [facility] 2 [facility] 05-11-2021 influenza virus vaccine, unspecified formulation Tiffani Munson APRN-MIX CHEMIST Work Phone: [facility] 12-01-2020 SARS-CoV-2 (COVID-19 ) Ad26 vaccine, recombinant Sophy MakeLeaps [facility] 11-10-2020 SARS-CoV-2 (COVID-19 ) Ad26 vaccine, recombinant Sophy MakeLeaps [facility] Payers Date Payer Category Payer Medicare [employer] MEDICARE A ETNA MEDICARE PLAN (HMO) [id number] 2023-Present [phone] [address] [place] [address] [id number] 2023 Medicare HMO [employer] MEDICARE [id number] 2023 Medicare [id number] 2018 Unknown [id number] 1962 Unknown [id number] 2.16.840.1.804742.3.579.2. 1962 Unknown [id number] 2.16840.1.455108.3.579.2 1962 Unknown [id number] 2.16.840.1.134255.3.579.2. 1962 Unknown [id number] 2.16.840.1.430847.3.579.2. 1962 Unknown [id number] 2.16.840.1.863042.3.579.2. 1962 Unknown [id number] 2.16.840.1.065178.3.579.2. 1962 Unknown [id number] 2.16.840.1.600488.3.579.2.727 1962 Unknown [id number] 2.16.840.1.629760.3.579.2.727 1962 Unknown [id number] 2.16.840.1.828122.3.579.2.727 1962 Unknown [id number] 2.16.840.1.293964.3.579.2.72 1962 Unknown [id number] 2.16.840.1.470157.3.579.2.727 1962 Unknown [id number] 2.16.840.1.942692.3.579.2.72 1962 Unknown [id number] 2.16.840.1.497637.3.579.2.72 1962 Unknown [id number] 2.16.840.1.076072.3.579.2.72 1962 Unknown [id number] 2.16.840.1.077205.3.579.2.727 1962 Unknown [id number] 2.16.840.1.964593.3.579.2.593 1962 Unknown [id number] 2.16.840.1.462822.3.579.2.593 1962 Unknown [id number] 2.16.840.1.978860.3.579.2.593 1962 Unknown [id number] 2.16.840.1.482025.3.579.2.593 1962 Unknown [id number] 2.16.840.1.860353.3.579.2.593 1962 Unknown [id number] 2.16.840.1.019763.3.579.2.593 1962 Unknown [id number] 2.16.840.1.645005.3.579.2.1286 1962 Unknown [id number] 2.16.840.1.250856.3.579.2.1286 1959 Self-pay Social History Date Type Detail Facility Start: 06-28-2021 End: 12-22-2024 Tobacco smoking status Ex-smoker (finding) [facility] Tobacco smoking status Never [facility] Start: 09-16-2020 End: 12-21-2021 Sex Assigned At Female [facility] History of tobacco use Current smoker [facility] History of tobacco use Cigarette Smoker P [facility] Start: 09-16-2020 End: 12-21-2021 Cigarettes smoked current (pack per day) - Reported 1 [facility] Start: 12-21-2021 End: 12-22-2024 Tobacco use and exposure Smokeless tobacco non-user [facility] Start: 12-21-2021 End: 12-22-2024 Alcohol intake Current drinker of alcohol (finding) [facility] Start: 08-22-2017 End: 12-22-2024 Tobacco Comment QUIT 9 YEARS AGO [facility] Start: 08-22-2017 Alcohol Comment SOCIAL/BEER [facility] Start: 1960 Sex Assigned At Not on file [facility] Start: 03-11-2015 Sex Female (finding) [facility] Medical Equipment Procedure Code Equipment Code [...] A 10/18/21 Unknown [place]ck FDA Start: 10-18-2021 Goals Date Patient Goal Desired Activity /State Personal health goal Personal health goal Functional Status Date Assessment Result Facility 10-10-2022 Functional Status N/A [facility] 08-22-2022 Functional Status N/A [facility] 07-11-2022 Functional Status N/A [facility] 06-20-2022 Functional Status N/A [facility] 03-28-2022 Functional Status N/A [facility] Clinical Notes 10-31-2021 to 12-22-2024 Patient InstructionsPerioperative Nursing Note - Blanca Lema RN - 12/22/2024 11:15 AM EDTPerioperative Nursing Note - Blanca Lema RN - 12/22/2024 11:15 AM EDT Note Date & Type Note Facility 12-22-2024 Instructions Blanca Lema RN - 12/22/2024 11:15 AM EDT Preoperative Education Checklist- General Surgery date: 01/15/25 Surgery time: 0730 a.m. Arrival time: 0610 a.m. 1. Bring a photo ID and your insurance card with you the day of surgery. You will check in at the main lobby registration desk as soon as you walk in the entrance. 2. If you have a Living Will/Durable Power of English Faculty Member for Health Care that is not on file here, please bring a copy the day of surgery. 3. Please wash your face with baby shampoo prior to procedure as instructed by your physician. 4. NO powder, lotion, perfume/cologne, aftershave, make-up, nail thai on at least one finger, deodorant, or hair products after you have bathed. 5. Nothing to eat or drink (not even water, gum, mints, or hard candy!) AFTER midnight prior to your surgery. 6. Take only medications that you are instructed to on the morning of surgery with a TINY SIP OF WATER. 7. If you have an inhaler, use it routinely. 8. Choose a responsible adult that will be able to drive you home when you are discharged from your hospital stay for your surgery. You must NOT drive any vehicle or operate any machinery for 24 hours after surgery. 9. When you dress for your appointment, please wear comfortable clothing. 10. Do NOT wear jewelry, watches, or any piercings or metal for surgery. 11. Do NOT wear contact lenses for surgery- glasses are okay if needed. 12. The anesthesiologist will talk with you the day of surgery and will ask you to sign a Consent Form. 13. Refrain from smoking or any type of tobacco use for at least 8 hours or marijuana for 24 hours prior to arrival for your surgery. 14. Notify your surgeon if you develop any illness before your surgery. 15. If you have any questions prior to surgery, please call the Preadmission Testing office at [phone], Mon.-Fri. 7 a.m.-3 p.m. Leave a voicemail if needed. Pre-Surgery Instructions: Medication Instructions acyclovir (ZOVIRAX) 800 mg tablet Stop taking 0 days prior to procedure ALPRAZolam (XANAX) 0.25 mg tablet Stop taking 0 days prior to procedure ascorbic acid (VITAMIN C) 500 mg tablet Stop taking 0 days prior to procedure aspirin 81 mg Stop taking 0 days prior to procedure biotin 1 mg tablet Stop taking 0 days prior to procedure cetirizine (ZyrTEC) 10 mg tablet Stop taking 0 days prior to procedure cholecalciferol, vitamin D3, (VITAMIN D3) 5,000 units capsule Stop taking 0 days prior to procedure cyanocobalamin (VITAMIN B-12) 100 MCG tablet Stop taking 0 days prior to procedure diphenhydrAMINE (SOMINEX) 25 mg tablet Stop taking 0 days prior to procedure docusate sodium (COLACE) 100 mg capsule Stop taking 0 days prior to procedure fluticasone propionate (FLONASE) 50 mcg/actuation nasal spray Stop taking 0 days prior to procedure gabapentin (NEURONTIN) 300 mg capsule Stop taking 0 days prior to procedure ibuprofen (ADVIL,MOTRIN) 800 mg tablet Stop taking 0 days prior to procedure lisinopriL (PRINIVIL,ZESTRIL) 40 mg tablet Continue as prescribed, take morning of procedure magnesium oxide (MAGOX) 400 mg tablet Stop taking 0 days prior to procedure metFORMIN (GLUCOPHAGE) 500 mg tablet Stop taking 0 days prior to procedure metoprolol succinate XL (TOPROL XL) 100 mg 24 hr tablet Continue as prescribed, take morning of procedure nppwuexw-wmpg-UE-calcium &mins (THERAGRAN-M) 9 mg iron-400 mcg tablet Stop taking 0 days prior to procedure multivit-min/folic ac/collagen (WOMEN'S MULTIVITAMIN COLLAGEN ORAL) Stop taking 0 days prior to procedure omega 9-pdq-cpg-fish oil (Fish OiL) 300-1,000 mg capsule Stop taking 0 days prior to procedure omeprazole (PriLOSEC) 40 mg capsule Continue as prescribed, take morning of procedure rosuvastatin (CRESTOR) 20 mg tablet Stop taking 0 days prior to procedure semaglutide (OZEMPIC) 2 mg/dose (8 mg/3 mL) pen injector Stop taking 1 week prior to procedure tiZANidine (ZANAFLEX) 4 mg tablet Stop taking 0 days prior to procedure documented in this encounter [facility] 12-22-2024 Miscellaneous Notes Preoperative Education Checklist- General Surgery date: 01/15/25 Surgery time: 0730 a.m. Arrival time: 0610 a.m. 1. Bring a photo ID and your insurance card with you the day of surgery. You will check in at the main lobby registration desk as soon as you walk in the entrance. 2. If you have a Living Will/Durable Power of English Faculty Member for Health Care that is not on file here, please bring a copy the day of surgery. 3. Please wash your face with baby shampoo prior to procedure as instructed by your physician. 4. NO powder, lotion, perfume/cologne, aftershave, make-up, nail thai on at least one finger, deodorant, or hair products after you have bathed. 5. Nothing to eat or drink (not even water, gum, mints, or hard candy!) AFTER midnight prior to your surgery. 6. Take only medications that you are instructed to on the morning of surgery with a TINY SIP OF WATER. 7. If you have an inhaler, use it routinely. 8. Choose a responsible adult that will be able to drive you home when you are discharged from your hospital stay for your surgery. You must NOT drive any vehicle or operate any machinery for 24 hours after surgery. 9. When you dress for your appointment, please wear comfortable clothing. 10. Do NOT wear jewelry, watches, or any piercings or metal for surgery. 11. Do NOT wear contact lenses for surgery- glasses are okay if needed. 12. The anesthesiologist will talk with you the day of surgery and will ask you to sign a Consent Form. 13. Refrain from smoking or any type of tobacco use for at least 8 hours or marijuana for 24 hours prior to arrival for your surgery. 14. Notify your surgeon if you develop any illness before your surgery. 15. If you have any questions prior to surgery, please call the Preadmission Testing office at [phone], Mon.-Fri. 7 a.m.-3 p.m. Leave a voicemail if needed. Pre-Surgery Instructions: Medication Instructions acyclovir (ZOVIRAX) 800 mg tablet Stop taking 0 days prior to procedure ALPRAZolam (XANAX) 0.25 mg tablet Stop taking 0 days prior to procedure ascorbic acid (VITAMIN C) 500 mg tablet Stop taking 0 days prior to procedure aspirin 81 mg Stop taking 0 days prior to procedure biotin 1 mg tablet Stop taking 0 days prior to procedure cetirizine (ZyrTEC) 10 mg tablet Stop taking 0 days prior to procedure cholecalciferol, vitamin D3, (VITAMIN D3) 5,000 units capsule Stop taking 0 days prior to procedure cyanocobalamin (VITAMIN B-12) 100 MCG tablet Stop taking 0 days prior to procedure diphenhydrAMINE (SOMINEX) 25 mg tablet Stop taking 0 days prior to procedure docusate sodium (COLACE) 100 mg capsule Stop taking 0 days prior to procedure fluticasone propionate (FLONASE) 50 mcg/actuation nasal spray Stop taking 0 days prior to procedure gabapentin (NEURONTIN) 300 mg capsule Stop taking 0 days prior to procedure ibuprofen (ADVIL,MOTRIN) 800 mg tablet Stop taking 0 days prior to procedure lisinopriL (PRINIVIL,ZESTRIL) 40 mg tablet Continue as prescribed, take morning of procedure magnesium oxide (MAGOX) 400 mg tablet Stop taking 0 days prior to procedure metFORMIN (GLUCOPHAGE) 500 mg tablet Stop taking 0 days prior to procedure metoprolol succinate XL (TOPROL XL) 100 mg 24 hr tablet Continue as prescribed, take morning of procedure dkxfpzte-jhbp-FW-calcium &mins (THERAGRAN-M) 9 mg iron-400 mcg tablet Stop taking 0 days prior to procedure multivit-min/folic ac/collagen (WOMEN'S MULTIVITAMIN COLLAGEN ORAL) Stop taking 0 days prior to procedure omega 0-gqj-ncz-fish oil (Fish OiL) 300-1,000 mg capsule Stop taking 0 days prior to procedure omeprazole (PriLOSEC) 40 mg capsule Continue as prescribed, take morning of procedure rosuvastatin (CRESTOR) 20 mg tablet Stop taking 0 days prior to procedure semaglutide (OZEMPIC) 2 mg/dose (8 mg/3 mL) pen injector Stop taking 1 week prior to procedure tiZANidine (ZANAFLEX) 4 mg tablet Stop taking 0 days prior to procedure Surgical instructions reviewed. Patient verbalized understanding. documented in this encounter [facility] [employer] [facility] 12-22-2024 Nurse Note Preoperative Education Checklist- General Surgery date: 01/15/25 Surgery time: 0730 a.m. Arrival time: 0610 a.m. 1. Bring a photo ID and your insurance card with you the day of surgery. You will check in at the main lobby registration desk as soon as you walk in the entrance. 2. If you have a Living Will/Durable Power of English Faculty Member for Health Care that is not on file here, please bring a copy the day of surgery. 3. Please wash your face with baby shampoo prior to procedure as instructed by your physician. 4. NO powder, lotion, perfume/cologne, aftershave, make-up, nail thai on at least one finger, deodorant, or hair products after you have bathed. 5. Nothing to eat or drink (not even water, gum, mints, or hard candy!) AFTER midnight prior to your surgery. 6. Take only medications that you are instructed to on the morning of surgery with a TINY SIP OF WATER. 7. If you have an inhaler, use it routinely. 8. Choose a responsible adult that will be able to drive you home when you are discharged from your hospital stay for your surgery. You must NOT drive any vehicle or operate any machinery for 24 hours after surgery. 9. When you dress for your appointment, please wear comfortable clothing. 10. Do NOT wear jewelry, watches, or any piercings or metal for surgery. 11. Do NOT wear contact lenses for surgery- glasses are okay if needed. 12. The anesthesiologist will talk with you the day of surgery and will ask you to sign a Consent Form. 13. Refrain from smoking or any type of tobacco use for at least 8 hours or marijuana for 24 hours prior to arrival for your surgery. 14. Notify your surgeon if you develop any illness before your surgery. 15. If you have any questions prior to surgery, please call the Preadmission Testing office at [phone], Mon.-Fri. 7 a.m.-3 p.m. Leave a voicemail if needed. Pre-Surgery Instructions: Medication Instructions acyclovir (ZOVIRAX) 800 mg tablet Stop taking 0 days prior to procedure ALPRAZolam (XANAX) 0.25 mg tablet Stop taking 0 days prior to procedure ascorbic acid (VITAMIN C) 500 mg tablet Stop taking 0 days prior to procedure aspirin 81 mg Stop taking 0 days prior to procedure biotin 1 mg tablet Stop taking 0 days prior to procedure cetirizine (ZyrTEC) 10 mg tablet Stop taking 0 days prior to procedure cholecalciferol, vitamin D3, (VITAMIN D3) 5,000 units capsule Stop taking 0 days prior to procedure cyanocobalamin (VITAMIN B-12) 100 MCG tablet Stop taking 0 days prior to procedure diphenhydrAMINE (SOMINEX) 25 mg tablet Stop taking 0 days prior to procedure docusate sodium (COLACE) 100 mg capsule Stop taking 0 days prior to procedure fluticasone propionate (FLONASE) 50 mcg/actuation nasal spray Stop taking 0 days prior to procedure gabapentin (NEURONTIN) 300 mg capsule Stop taking 0 days prior to procedure ibuprofen (ADVIL,MOTRIN) 800 mg tablet Stop taking 0 days prior to procedure lisinopriL (PRINIVIL,ZESTRIL) 40 mg tablet Continue as prescribed, take morning of procedure magnesium oxide (MAGOX) 400 mg tablet Stop taking 0 days prior to procedure metFORMIN (GLUCOPHAGE) 500 mg tablet Stop taking 0 days prior to procedure metoprolol succinate XL (TOPROL XL) 100 mg 24 hr tablet Continue as prescribed, take morning of procedure qbkwtptd-eafe-UL-calcium &mins (THERAGRAN-M) 9 mg iron-400 mcg tablet Stop taking 0 days prior to procedure multivit-min/folic ac/collagen (WOMEN'S MULTIVITAMIN COLLAGEN ORAL) Stop taking 0 days prior to procedure omega 9-sai-cdc-fish oil (Fish OiL) 300-1,000 mg capsule Stop taking 0 days prior to procedure omeprazole (PriLOSEC) 40 mg capsule Continue as prescribed, take morning of procedure rosuvastatin (CRESTOR) 20 mg tablet Stop taking 0 days prior to procedure semaglutide (OZEMPIC) 2 mg/dose (8 mg/3 mL) pen injector Stop taking 1 week prior to procedure tiZANidine (ZANAFLEX) 4 mg tablet Stop taking 0 days prior to procedure [facility] 12-22-2024 Nurse Note Surgical instructions reviewed. Patient verbalized understanding. [facility] 09-10-2023 Miscellaneous Notes Called Ramandeep Mary/Dr. Friedman's office as we received a screening colonoscopy referral for Elisa, but she had a colonoscopy in 2018 and not due for a repeat until 2027. Spoke to Ramandeep's nurse and she states that Elisa is aware of this also and to please disregard the referral. documented in this encounter [facility] 09-10-2023 Telephone encounter Note Called Ramandeep Mary/Dr. Friedman's office as we received a screening colonoscopy referral for Elisa, but she had a colonoscopy in 2018 and not due for a repeat until 2027. Spoke to Ramandeep's nurse and she states that Elisa is aware of this also and to please disregard the referral. [facility] 09-05-[address] Friedman's office as we received a screening colonoscopy referral for Elisa, but she had a colonoscopy on 09/04/2017 and is not due for 10 years. They are to let Dr. Friedman know. documented in this encounter [facility] 09-05-2023 Telephone encounter Note Called Dr Friedman's office as we received a screening colonoscopy referral for Elisa, but she had a colonoscopy on 09/04/2017 and is not due for 10 years. They are to let Dr. Friedman know. [facility] 10-10-2022 Evaluation + Plan note [...] Spine Cervical 2 or 3 Views 10/31/21 [facility]01-17-2023 Evaluation + Plan noteExtracted from: Title:FUV [...] Spine Cervical 2 or 3 Views 10/31/21 [facility]12-27-2022 Note [id number]:[id number] 07-11-2022 Evaluation + Plan noteExtracted from: Title:FUV [...] Spine Cervical 2 or 3 Views 10/31/21 [facility]11-15-2022 Evaluation + Plan noteExtracted from: Title:Spine [...] Spine Cervical 2 or 3 Views 10/31/21 [facility]08-23-2022 Evaluation + Plan noteExtracted from: Title:Spine [...] Spine Cervical 2 or 3 Views 10/31/21 [facility]05-17-2022 Evaluation + Plan noteExtracted from: Title:Spine [...] Spine Cervical 2 or 3 Views 10/31/21 [facility]03-28-2022 Evaluation + Plan note Future Scheduled Tests Radiology* XR Spine Cervical 2 or 3 Views [facility]/31/[facility] Future Appointments Appointment Date:03/28/2022 12:30:00 PM Scheduled Provider:Sophy Rush PA-C Location:[facility] Appointment Type:Pain Management - Follow Up (FT) Future Scheduled Tests Radiology* XR Spine Cervical 2 or 3 Views 10/31/[facility] Future Appointments Appointment Date:04/25/2022 11:00:00 AM Scheduled Provider:Sophy Rush PA-C [facility] Appointment Type:Spine - Follow Up (FT) Future Scheduled Tests Radiology* XR Spine Cervical 2 or 3 Views 10/31/[facility] Future Appointments Appointment Date:05/23/2022 11:30:00 AM Scheduled Provider:Sophy Rush PA-C Location:[facility] Appointment Type:Spine - Follow Up (FT) Future Scheduled Tests Radiology* XR Spine Cervical 2 or 3 Views 10/31/21 [facility] Diagnosis Preop cardiovascular exam- Primary Pre-operative cardiovascular examination Hypertension, unspecified type Preop cardiovascular exam Pre-operative cardiovascular examination Hypertension, unspecified type [facility] No data available for this section [facility] Dis[facility] instructions No data available for this section [facility] on filedocumented in this encounter [facility] No data available for this section [facility] Summary Purpose Family History No Family History Records FoundNo Family History Records FoundNo Family History Records Found Advance Directives No Advanced Directives Records FoundNo Advanced Directives Records FoundNo Advanced Directives Records Found Additional Source Comments Care Team (unrecognized sect ion and content) Cuffer Relationship Specialty Start Date End Date Emi Friedman MD [address] [place] [address] PCP - General 08/15/17 Cuffer Relationship Specialty Start Date End Date Emi Friedman MD PCP - General 08/15/17 INFORMATION SOURCE (unrecogn ized section and content) DATE CREATED AUTHOR 10/23/2022 [facility] DATE CREATED AUTHOR AUTHOR'S ORGANIZ ATION 11/28/2022 [facility] DATE CREATED AUTHOR AUTHOR'S ORGANIZ ATION 12/24/2024 [facility] FOR RECORDS PERTAINING TO PATIENTS WHO ARE [...] BE BASED ON THE PRIMARY CLINICAL RECORDS. [facility]. provides no warranty or guarantee of the accuracy or completeness of information in this document.
--- OUTSIDE RECORDS SUMMARY | 2025-01-06 07:17 | XMS_ITS | Clinical Summary ---
Author Organization [facility] Address [address] [place] [address] Care Team Providers Care Pearl Peller Name Role Phone Meir Friedman MD Primary Care Provider [phone] Encounters Date Type Department Care Team Description 01/05/2025 Travel from Last 3 Months Social History Tobacco Use Types Packs/Day Years Used Date Smoking Tobacco: Never Assessed Comments Unknown Sex and Gender Information Value Date Recorded Sex Assigned at Not on file Legal Sex Female 7:17 PM EDT Gender Identity Not on file Sexual Orientation Not on file Last Filed Vital Signs Vital Sign Reading Time Taken Comments Blood Pressure 132/80 06/27/2022 12:00 PM EST Pulse - - Temperature - - Respiratory Rate - - Oxygen Saturation - - Inhaled Oxygen Concentration - - Weight 87.1 kg (192 lb) 06/27/2022 12:00 PM EST Height 163.8 cm (5' 4.5 ) 06/27/2022 12:00 PM ES T Body Mass Index 32.45 06/27/2022 12:00 PM EST Plan of Treatment Upcoming Encounters Date Type Department Care Team (Late st Contact Info) Description 01/06/2025 1:00 PM EDT Office Visit [facility] [address] [place] [address] Michael Gavin DO [address] [place] [address] Health Maintenance Due Date Last Done Comments CT Colonography 1960 Colonoscopy 1960 Colorectal Cancer Screening 1960 FIT-DNA 1960 FIT 1960 FOBT 1960 Sigmoidoscopy 1960 Pap Smear 1983 Cervical Cancer Screening 01/03/1992 HPV/Cotest 01/03/1992 Mammogram 06/27/2023 06/27/2022 Influenza Vaccine (Season Ended) 2025 05/26/2022, 05/11/2021, 05/05/2020, Additional history exists Procedures Procedure Name Priority Date/Time Associated Diagnosis Comments BI MAMMOGRAM SCREENING BILATERAL Routine 06/27/2022 12:00 PM EST Encounter for screening mammogram for malignant neoplasm of breast Encounter for screening for osteoporosis Encounter for gynecological examination (general) (routine) without abnormal findings from Last 3 Months or Most Recently Relevant to Health Maintenance Results * Bilateral screening mammogram (06/27/2022 12:00 PM EST) Anatomical Region Laterality Modality Breast Bilateral Mammography Narrative 06/27/2022 12:00 PM EST PERFORMED AT [facility] LOCATION:[id number] Procedure Note CONVERSION, GENERIC - 02/09/2023 PERFORMED AT [facility] LOCATION:[id number] us Julius Carson MD IMG BI PROCEDURES Final Resul t from Last 3 Months or Most Recently Relevant to Health Maintenance Insurance [employer] MED[employer]ARE [employer]VANTAGE Care Teams Pearl Peller Relationship Specialty Start Date End Date Meir Friedman MD [address] [place] [phone] PCP - General 12/30/24
--- OUTSIDE RECORDS SUMMARY | 2025-01-06 07:17 | XMS_ITS | Clinical Summary ---
Author Organization [employer] Address [id number] [address] [place] [address] Care Team Providers Care Credit Authorizer Name Role Phone Meir Friedman MD Primary Care Provider [phone] Allergies Active Allergy Reactions Criticality Noted Date Comments Amitriptyline Hallucinations 12/22/2024 Latex Other (See Comments) 12/22/2024 Ronquillo skin Penicillins Hives,Itching 08/22/2017 Sulfa (Sulfonamide Antibiotics) Hives,Itching 08/22/2017 Adhesive Other (See Comments) 12/21/2021 tegaderm ronquillo skin only if on for a long time Medications aspirin 81 mg Take 1 tablet (81 mg total) by mouth in the morning. Active ibuprofen (ADVIL,MOTRIN) 800 mg tablet Take 1 tablet (800 mg total) by mouth every 6 (six) hours as needed for pain. Active acyclovir (ZOVIRAX) 800 mg tablet Take 1 tablet (800 mg total) by mouth in the morning. Active gkinkbno-qjde-KO -calcium &mins (THERAGRAN-M) 9 mg iron-400 mcg tablet Take 1 tablet by mouth in the morning. Active cyanocobalamin (VITAMIN B-12) 100 MCG tablet Take 10 tablets (1,000 mcg total) by mouth in the morning. Active cholecalciferol, vitamin D3, (VITAMIN D3) 5,000 units capsule Take 1 capsule (5,000 Units total) by mouth in the morning. Active rosuvastatin (CRESTOR) 20 mg tablet Take by mouth in the morning. 0 Active fluticasone propionate (FLONASE) 50 mcg/actuation nasal spray Administer 1 spray into each nostril in the morning. Active cetirizine (ZyrTEC) 10 mg tablet Take 1 tablet (10 mg total) by mouth in the morning. Active ascorbic acid (VITAMIN C) 500 mg tablet Take 1 tablet (500 mg total) by mouth in the morning. Active ALPRAZolam (XANAX) 0.25 mg tablet 0 Active omeprazole (PriLOSEC) 40 mg capsule TAKE 1 CAPSULE(40 MG) BY MOUTH DAILY 90 capsule 0 Active tiZANidine (ZANAFLEX) 4 mg tablet Take 1 tablet (4 mg total) by mouth in the morning and 1 tablet (4 mg total) before bedtime. 2 tablets before bed. 2 Active gabapentin (NEURONTIN) 300 mg capsule Take 1 capsule (300 mg total) by mouth in the morning and 1 capsule (300 mg total) before bedtime. 2 Active metoprolol succinate XL (TOPROL XL) 100 mg 24 hr tablet Take 1 tablet (100 mg total) by mouth in the morning and 1 tablet (100 mg total) before bedtime. 2 Active lisinopriL (PRINIVIL,ZESTRI L) 40 mg tablet Take 5 mg by mouth in the morning. 2 Active metFORMIN (GLUCOPHAGE) 500 mg tablet Take 1 tablet (500 mg total) by mouth in the morning and 1 tablet (500 mg total) before bedtime. 2 Active biotin 1 mg tablet Take 1 tablet (1 mg total) by mouth in the morning. 2 Active multivit-min/fol ic ac/collagen (WOMEN'S MULTIVITAMIN COLLAGEN ORAL) Take by mouth. Powder, 1 scoop daily Active omega 9-kib-rur-fish oil (Fish OiL) 300-1,000 mg capsule Take 1,200 mg by mouth in the morning. Active docusate sodium (COLACE) 100 mg capsule Take 1 capsule (100 mg total) by mouth in the morning and 1 capsule (100 mg total) before bedtime. Active semaglutide (OZEMPIC) 2 mg/dose (8 mg/3 mL) pen injector Inject 2 mg under the skin every 7 days. Sunday Active magnesium oxide (MAGOX) 400 mg tablet Take 1 tablet (400 mg total) by mouth nightly. Active diphenhydrAMINE (SOMINEX) 25 mg tablet Take 1 tablet (25 mg total) by mouth nightly as needed for sleep. Active simvastatin (ZOCOR) 20 mg tablet Take 20 mg by mouth nightly. 8 025 Discontin ued(Thera py completed ) docusate sodium (COLACE) 100 mg capsule Take 1 capsule (100 mg total) by mouth in the morning. 025 Discontin ued(Thera py completed ) omega-3 fatty acids-fish oil 300-1,000 mg capsule Take 2 g by mouth daily. 025 Discontin ued(Donita jackson Listing) alendronate (FOSAMAX) 70 mg tablet Take 70 mg by mouth once a week. 025 Discontin ued(Thera py completed ) Active Problems No known active problems Encounters Date Type Department Care Team Description 12/22/2024 11:15 AM EDT Procedure visit [facility] - Pre Admit [address] [place] [address] Preop cardiovascular exam (Primary Dx); Hypertension, unspecified type 12/22/2024 10:45 AM EDT - 12/22/2024 11:59 PM EDT Hospital Encounter [facility] - Cardiovascular [address] [place] [address] Micheal Prado MD Preop cardiovascular exam; Hypertension, unspecified type Discharge Disposition: Home 12/22/2024 Travel from Last 3 Months Family History Medical History Relation Name Comments Cancer Father bladder Heart disease Father Prostate cancer Father Diabetes Mother Epilepsy Mother Heart disease Mother Relation Name Status Comments Father Mother Alive Social History Tobacco Use Types Packs/Day Years Used Date Smoking Tobacco: Former Cigarettes 1 30 Smokeless Tobacco: Never Tobacco Cessation:Counseling Given: Not Answered Comments:QUIT 9 YEARS AGO Alcohol Use Standard [...] Sign Reading Time Taken Comments Blood Pressure 130/80 12/21/2021 1:22 PM EDT Pulse 53 09/04/2017 9:20 AM EST Temperature 35.9 C (96.6 F) 12/21/2021 1:22 PM EDT Respiratory Rate 15 09/04/2017 9:20 AM EST Oxygen Saturation 99% 09/04/2017 9:20 AM EST Inhaled Oxygen Concentration - - Weight 65.8 kg (145 lb) 12/22/2024 11:16 AM EDT Height 165.1 cm (5' 5 ) 12/22/2024 11:16 AM EDT Body Mass Index 24.13 12/22/2024 11:16 AM EDT Plan of Treatment Upcoming Encounters Date Type Department Care Team (Latest Contact Info) Description 01/15/2025 7:30 AM EDT Hospital Encounter [facility] - Surgery [address] [place] [address] Kesha Davila MD [address] [place] [id number] 01/15/2025 7:30 AM EDT - 01/15/2025 8:15 AM EDT Surgery [facility] - Surgery [address] [place] [address] Kesha Davila MD [address] [place] [address] EXTRACTION CATARACT INTRAOCULAR LENS [76857 (CPT )] 01/28/2025 4:00 PM EDT Support Visit [facility] - Pre Admit [address] [place] [address] 01/29/2025 7:30 AM EDT Hospital Encounter [facility] Surgery [address] [phone] Kesha Davila MD [address] [place] [address], [place] [id number] 01/29/2025 7:30 AM EDT [address] [facility] Surgery [address] [place] [phone] Chay Saenz, DO [address] [place] [address] 01/29/2025 7:30 AM EDT - 01/29/2025 8:[address] [facility] Surgery [address] [phone] Kesha Davila MD [address] [place] [address], [place] [phone] EXTRACTION CATARACT INTRAOCULAR LENS [85323 (CPT )] Scheduled Procedures Name Priority Associated Diagnoses Date/Ti me EXTRACTION CATARACT INTRAOCU LAR LENS cataract left eye 01/15/2025 7:30 AM EDT EXTRACTION CATARACT INTRAOCU LAR LENS cataract right eye 01/29/2025 7:30 AM EDT Health Maintenance Due Date Last Done Comments Depression Screening 1972 Colonoscopy 09/04/2022 09/04/2017, 11/19/2014 COVID-19 Vaccine (5 - 2023-2 5 season) 2024 07/19/2022, 07/06/2021, 12/01/2020, Additional history exists DTaP,Tdap and Td Vaccines (2 - Td or Tdap) 08/28/2024 08/28/2014 Influenza Vaccine 04/06/2025 05/26/2022, , 05/05/2020, Additional history exists Adult BMI Screening 12/22/2025 12/22/2024 Tobacco Screening 12/30/2025 12/30/2024 Zoster (Shingles) Vaccine Completed 2018, 06/28/2018, 06/13/2014 Goals Goal Patient Goal Type Associated Problems Recent Progress Patient-Stated? Author Autogenerat ed Goal Care Plan Autogenerated Problem No Background, [employer] Not on file Procedures Procedure Name Priority Date/Time Associated Diagnosis Comments ECG 12-LEAD Routine 12/22/2024 11:27 AM EDT Preop cardiovascular exam Hypertension, unspecified type COLONOSCOPY 09/04/2017 7:15 AM EST from Last 3 Months or Most Recently Relevant to Health Maintenance Results * ECG 12 lead (12/22/2024 11:27 AM EDT) 12/22/2024 11:2 7 AM EDT Narrative TRACEMASTERVUE - 12/22/2024 4:11 PM EDT us Micheal Prado MD ECG ORDERABLES Final Result TRACEMASTERVUE * Colonoscopy (09/04/2017 7:15 AM EST) 09/04/2017 7:15 AM EST Narrative PM CARDIOVASCULAR - 09/04/2017 8:34 AM EST [facility] Patient Name: Cary Leung Procedure Date No Time: 09/04/2017 Date of : 1960 Admit Type: Outpatient Age: 57 Room: [place] [address] Gender: Female Note Status: Finalized Attending MD: Rehan Young DO Procedure: Colonoscopy Indications: Positive Cologuard test Providers: Rehan Young DO Medicines: General Anesthesia Complications: No immediate complications. Procedure: After I obtained informed consent, the scope was passed under direct vision. Throughout the procedure, the patient's blood pressure, pulse, and oxygen saturations were monitored continuously. The Olympus [id number] #[id number] adult colonoscope was introduced through the anus and advanced to the cecum, identified by appendiceal orifice and ileocecal valve. The colonoscopy was performed without difficulty. The patient tolerated the procedure well. The quality of the bowel preparation was excellent. Findings: The perianal and digital rectal examinations were normal. The colon (entire examined portion) appeared normal. Impression: - The entire examined colon is normal. - No specimens collected. Recommendation: - Discharge patient to home. - Repeat colonoscopy in 10 years for screening purposes. - Return to my office in 1 week. Procedure Code(s): --- Professional --- 40574, Colonoscopy, flexible; diagnostic, including collection of specimen(s) by brushing or washing, when performed (separate procedure) Diagnosis Code(s): --- Professional --- R19.5, Other fecal abnormalities CPT copyright 2016 [employer]. All rights reserved. The codes documented in this report are preliminary and upon muck miner blasting review may be revised to meet current compliance requirements. DO Rehan Keys DO 09/04/2017 8:34:47 AM Number of Addenda: 0 Note Initiated On: 09/04/2017 7:15 AM Procedure Note Rehan Young DO - 09/04/2017 [facility] Patient Name: Cary Leung Procedure Date No Time: 09/04/2017 Date of : 1960 Admit Type: Outpatient Age: 57 Room: [place] [address] Gender: Female Note Status: Finalized Attending MD: Rehan Young DO Procedure: Colonoscopy Indications: Positive Cologuard test Providers: Rehan Young DO Medicines: General Anesthesia Complications: No immediate complications. Procedure: After I obtained informed consent, the scope waspassed under direct vision. Throughout the procedure, the patient's blood pressure, pulse, and oxygensaturations were monitored continuously. The Olympus [id number] #[id number] adult colonoscope was introduced through the anus and advanced to the cecum, identified by appendiceal orifice and ileocecal valve. Thecolonoscopy was performed without difficulty. The patienttolerated the procedure well. The quality of the bowelpreparation was excellent. Findings: The perianal and digital rectal examinations were normal. The colon (entire examined portion) appeared normal. Impression: - The entire examined colon is normal. - No specimens collected. Recommendation: - Discharge patient to home. - Repeat colonoscopy in 10 years for screeningpurposes. - Return to my office in 1 week. Procedure Code(s): --- Professional --- 02127, Colonoscopy, flexible; diagnostic, including collection of specimen(s) by brushing or washing,when performed (separate procedure) Diagnosis Code(s): --- Professional --- R19.5, Other fecal abnormalities CPT copyright 2016 [employer]. All rights reserved. The codes documented in this report are preliminary and upon muck miner blasting reviewmay be revised to meet current compliance requirements. DO Rehan Keys DO 09/04/2017 8:34:47 AM Number of Addenda: 0 Note Initiated On: 09/04/2017 7:15 AM Rehan Young DO GI PROCEDURE ORDERABLES Fin al Result PM CARDIOVASCULAR from Last 3 Months or Most Recently Relevant to Health Maintenance Additional Health Concerns Active Problems Noted Date Diagnosed Date Autogenerated Problem 12/15/2024 Insurance [address] [id number] [employer] MED[employer]ARE WORKER'S COMPENSATION Care Teams Credit Authorizer Relationship Specialty Start Date End Date Meir Friedman MD PCP - General 08/15/17
--- OUTSIDE RECORDS SUMMARY | 2025-01-06 07:17 | XMS_ITS | Clinical Summary ---
Author Organization [facility] Address [address] [place] [address] Care Team Providers Care Wire Insulator Name Role Phone Unavailable Primary Care Provider Unavailabl e Social History Tobacco Use Types Packs/Day Years Used Date Smoking Tobacco: Never Assessed Comments Unknown Sex and Gender Information Value Date Recorded Sex Assigned at Not on file Legal Sex Female 7:29 PM EST Gender Identity Not on file Sexual Orientation Not on file Plan of Treatment Not on file Insurance [address] [place] [address] [employer]
--- NOTE | 2025-01-06 07:30 | NM_ITS ---
Patient Name: ELISA GOMES MR#: [id number] : 1960 Exam Date: 01/06/2025 Ordering Doctor: DR EMI KENYON . RADIOLOGY REPORT PROCEDURE: NM BILLY PERF SPECT REST STR COMPARISON: None. INDICATIONS: ABNORMAL EKG, CHEST PAIN, SHORTNESS OF BREATH TECHNIQUE: Exam Description: Rest/Stress one day protocol gated SPECT Rest Imagin.2 mCi Tc-99m Cardiolite IV on 01/06/2025 Stress Imaging 31.4 mCi Tc-99m Cardiolite IV on 01/06/2025 Exercise Protocol: 0.4 mg Lexiscan given IV Heart Rate (bpm): Rest: 70 Max: 104 PMHR: 66 Blood Pressure: Rest: 150/82 Max: 152/86 Symptoms: Rest and peak stress ECG findings were pending and the exercise portion of the study was pending per attending physician [facility] . For more details please see separate cardiac stress test report. FINDINGS: QUALITY OF STUDY: Good PERFUSION DEFECT: None LOCATION: SIZE: SEVERITY: TYPE: WALL MOTION: Normal LV SIZE: 46 mL. TID / TCD: 0.8 LVEF: Calculated EF 84%. SUMMARY: Normal Myocardial perfusion imaging study CONCLUSION: Normal myocardial perfusion stress test without ischemia or infarction Normal left ventricle systolic function, ejection fraction 84% No transient ischemic dilatation,TID 0.8 EKG portion of stress test is reported separately Dictated by: Jocy Matias MD on 01/08/2025 at 15:54 Approved by: Jocy Matias MD on 01/08/2025 at 16:01
--- NOTE | 2025-01-06 09:18 | PC.NURSE ---
Nursing Note Cardiac Stress Test Reviewed: Medication, allergies and patient history reviewed. Stress Test: [x ] Patient tolerated stress test well. [x ] Patient unable to tolerate walking on treadmill. Switched to Lexiscan stress test. [ x] No chest pain noted per patient [ ] Chest pain that resolved prior to leaving stress lab. [ x] No dyspnea noted. [ ] Dyspnea that resolved prior to leaving stress lab. [x ] Patient left stress lab asymptomatic and hemodynamically stable. [ ] Patient taken to the Emergency Room due to non-resolving symptoms following stress test. [ ] Patient achieved target heart rate. [ ] Patient unable to achieve target heart rate. [ ] Aminophylline administered as reversal agent to Lexiscan (Regadenoson). [ ] Nitro administered. Nursing Comments:Pt was scheduled for TM test but states she felt like she would not be able to do this due to dizziness with activity and weakness today. Pt requested to be switched to Lexiscan as she has had this before and tolerated it well. Pt left stress lab with symptoms resolved. Pt had no CP or SOB but had slight headache. Pt ambulated to cafeteria for breakfast prior to second set of images.
[2025-01-06] MEDS: REGADENOSON 0.4 MG/5 ML SYRINGE IV (09:23)
== END 2025-01-06 07:14 | disposition home or self-care (01) ==
LOC: NM 07:14
PROVIDERS: PCP Family Medicine; Visit Provider Family Medicine
DX: R07.9 Chest pain, unspecified (principal)
CPT/HCPCS: 78452; 93017; A9500; J2785

== ENCOUNTER 2025-01-06 20:07 | Outpatient (REF) | payer MEDICARE, SELFPAY ==
--- OUTSIDE RECORDS SUMMARY | 2024-12-22 10:45 | XMS_ITS | Encounter Summary ---
Author Organization [email or web address] [facility] Address [id number] [place] [address] Care Team Providers Care Water Tanker Driver Name Role Phone Meir Friedman MD Primary Care Provider [phone] Reason for Referral * Cardiology (Routine) - Closed Specialty Diagnoses / Procedures Referred By Contac t Referred To Contact Diagnoses Preop cardiovascular exam Hypertension, unspecified type Procedures ECG 12 lead Micheal Prado MD [address] [place], [place] [address] [address] Phone: tel: fax: Referral ID Status Reason Start Date Expiration Date Visits Re quested Visits Authorized [id number] Closed 12/15/2024 12/15/2025 1 1 Reason for Visit * Cardiology (Routine) - Closed Specialty Diagnoses / Procedures Referred By Cyndy hare Referred To Contact Diagnoses Preop cardiovascular exam Hypertension, unspecified type Procedures ECG 12 lead Micheal Prado MD [address] [place] [address] Phone: tel: fax: Referral ID Status Reason Start Date Expiration Date Visits Re quested Visits Authorized [id number] Closed 12/15/2024 12/15/2025 1 1 Encounter Details Date Type Department Care Team (Latest Contact Info) Description 12/22/2024 10:45 AM EDT - 12/22/2024 11:59 PM EDT Hospital Encounter [facility] - Cardiovascular [address] [place] [phone] Micheal Prado MD [address] [place] [address] Preop cardiovascular exam; Hypertension, unspecified type Discharge [...] tablet (100 mg total) before bedtime. 11/14/2021 vykxippi-rxsg-BV-c alcium &mins (THERAGRAN-M) 9 mg iron-400 mcg tablet Take 1 tablet by mouth in the morning. multivit-min/folic ac/collagen (WOMEN'S MULTIVITAMIN COLLAGEN ORAL) Take by mouth. Powder, 1 scoop daily omega 1-ekl-xil-fish oil (Fish OiL) 300-1,000 mg capsule Take [...] Description 01/15/2025 7:30 AM EDT Hospital Encounter [facility] - Surgery [address] [facility] [place] [address] Kesha Davila MD [address] [place] [address] 01/15/2025 7:30 AM EDT - 01/15/2025 8:15 AM EDT Surgery [facility] - Surgery [address] [place] [address] Kesha Davila MD [address] [place] [address] [phone] EXTRACTION CATARACT INTRAOCULAR LENS [68254 (CPT )] 01/28/2025 4:00 PM EDT Support Visit [facility] - Pre Admit [address] [place] [address] 01/29/2025 7:30 AM EDT Hospital Encounter [facility] - Surgery [address] [facility] [address] Kesha Davila MD [address] [place] [address] [phone] 01/29/2025 7:30 AM EDT Anesthesia Event [facility] Surgery [address] [facility] [address] Chay Saenz, DO [address] [facility] [place] [address] 01/29/2025 7:30 AM EDT - 01/29/2025 8:15 AM EDT Surgery [facility] Surgery [address] [facility] [address] Kesha Davila MD [address] [place] [address] [phone] EXTRACTION CATARACT INTRAOCULAR LENS [46474 (CPT )] Scheduled Procedures Name Priority Associated [...] documented as of this encounter Care Teams Water Tanker Driver Relationship Specialty Start Date End Date Meir Friedman MD PCP - General 08/15/17 documented as of this encounter
--- OUTSIDE RECORDS SUMMARY | 2025-01-06 13:00 | XMS_ITS | Encounter Summary ---
Author Organization [facility] Address [address] [place] [address] Care Team Providers Care Sales Account Leader Name Role Phone Meir Friedman MD Primary Care Provider [phone] Reason for Visit * Reason Comments Well Women Visit Encounter Details Date Type Department Care Team (Late st Contact Info) Description 01/06/2025 1:00 PM EDT Office Visit [facility] [address] [facility] [place] [phone] Michael Gavin, DO [address] [facility] [address] [place] [address] Well woman exam with routine gynecological exam; Breast cancer screening by mammogram; Burning with urination Social History Tobacco Use Types Packs/Day Years Used Date Smoking Tobacco: Never Assessed Comments Unknown Sex and Gender Information Value Date Recorded Sex Assigned at Not on file Legal Sex Female 7:17 PM EDT Gender Identity Not on file Sexual Orientation Not on file documented as of this encounter Last Filed Vital Signs Vital Sign Reading Time Taken Comments Blood Pressure 126/80 01/06/2025 1:11 PM EDT Pulse - - Temperature - - Respiratory Rate - - Oxygen Saturation - - Inhaled Oxygen Concentration - - Weight 66.9 kg (147 lb 6.4 oz) 01/06/2025 1:11 P M EDT Height - - Body Mass Index 24.91 06/27/2022 12:00 PM EST documented in this encounter Plan of Treatment Upcoming Encounters Date Type Department Care Team (Late st Contact Info) Description 01/12/2026 1:00 PM EDT Office Visit [facility] [address] [place] [address] Michael Gavin DO [address] [facility] [address] [place], [place] [id number] Scheduled Orders Name Type Priority Associated Diagnoses Orde r Schedule THIN PREP TIS PAP AND HR HPV DNA Pathology and Cytology Routine Well woman exam with routine gynecological exam Ordered: 01/06/2025 documented as of this encounter Visit Diagnoses Diagnosis Well woman exam with routine gynecological exam Routine gynecological examination Breast cancer screening by mammogram Burning with urination Dysuria documented in this encounter Care Teams Sales Account Leader Relationship Specialty Start Date End Date Meir Friedman MD [address] [facility] [place] [phone] PCP - General 12/30/24 documented as of this encounter
--- OUTSIDE RECORDS SUMMARY | 2025-01-06 20:10 | XMS_ITS | Clinical Summary ---
Author Organization [facility] Address [address] [place] [address] Phone Care Team Providers Care Oil Scout Name Role Phone Unavailable Primary Care Provider [...]
--- OUTSIDE RECORDS SUMMARY | 2025-01-06 20:10 | XMS_ITS | Clinical Summary ---
Author Organization [facility] Address [address] [place] [address] Care Team Providers Care Care Management Associate Name Role Phone Micheal Chacko MD Primary Care Provider [phone] Social History Tobacco Use Types Packs/Day Years [...] age to complete this topic Care Teams Care Management Associate Relationship Specialty Start Date End Date Micheal Chacko MD PCP - General 05/17/22
--- OUTSIDE RECORDS SUMMARY | 2025-01-06 20:11 | XMS_ITS | Encounter Summary ---
Author Organization [facility] Address [address] [facility] [place] [address] Care Team Providers Care Machine Made Shoe Unit Worker Name Role Phone Meir Friedman MD Primary Care Provider [phone] Encounter Details Date Type Department Care Team [...] BCP OB [address] [place] [phone] Michael Gavin, [address] [facility] [address] [place], [place] [id number] documented as of this encounter Visit Diagnoses Not on filedocumented in this encounter Care Teams Machine Made Shoe Unit Worker Relationship Specialty Start Date End Date Meir Friedman MD [address] [facility] [place] [address] PCP - General 12/30/24 documented as of this encounter
--- OUTSIDE RECORDS SUMMARY | 2025-01-06 20:11 | XMS_ITS | Encounter Summary ---
Author Organization [facility] Address [address] [facility] [place] [address] Care Team Providers Care Fitter Armament Name Role Phone Meir Friedman MD Primary Care Provider [phone] Encounter Details Date Type Department Care Team (Late Contact Info) Description 01/06/2025 Bamboo flowsheet [facility] [address] [place] [address] Michael Gavin DO [address] [place], [place] [id number] Social History Tobacco Use Types Packs/Day Years Used Date Smoking Tobacco: Never Assessed Comments Unknown Sex and Gender Information Value Date Recorded Sex Assigned at Not on file Legal Sex Female 7:17 PM EDT Gender Identity Not on file Sexual Orientation Not on file documented as of this encounter Plan of Treatment Upcoming Encounters Date Type Department Care Team (Late Contact Info) Description 01/12/2026 1:00 PM EDT Office Visit [facility] [address] [place] [address] Michael Gavin DO [address] [place] [address] documented as of this encounter Visit Diagnoses Not on filedocumented in this encounter Care Teams Fitter Armament Relationship Specialty Start Date End Date Meir Friedman MD [address] [place] [address] PCP - General 12/30/24 documented as of this encounter
--- OUTSIDE RECORDS SUMMARY | 2025-01-06 20:11 | XMS_ITS | Clinical Summary ---
Author Organization [facility] Address [address] [place] [address] Care Team Providers Care Key Filer Name Role Phone Unavailable Primary Care Provider Unavailabl e Social History Tobacco Use Types Packs/Day Years Used Date Smoking Tobacco: Never Assessed Comments Unknown Sex and Gender Information Value Date Recorded Sex Assigned at Not on file Legal Sex Female 7:29 PM EST Gender Identity Not on file Sexual Orientation Not on file Plan of Treatment Not on file Insurance [address] [place] [address] [employer]
--- OUTSIDE RECORDS SUMMARY | 2025-01-06 20:11 | XMS_ITS | Encounter Summary ---
Author Organization [facility] Address [address] [facility] [place] [address] Care Team Providers Care Market News Reporter Name Role Phone Meir Friedman MD Primary Care Provider [phone] Encounter Details Date Type Department Care Team (Late st Contact Info) Description 01/06/2025 Abstract [facility] [address] [facility] [place] [address] Michael Gavin DO [facility] [place] [id number] Social History Tobacco Use Types Packs/Day Years [...] Office Visit [facility] [address] [place] [address] Michael Gavin DO [address] [place] [place], [place] [phone] documented as of this encounter Visit Diagnoses Not on filedocumented in this encounter Care Teams Market News Reporter Relationship Specialty Start Date End Date Meir Friedman MD [address] [place] [address] PCP - General 12/30/24 documented as of this encounter
--- OUTSIDE RECORDS SUMMARY | 2025-01-06 20:11 | XMS_ITS | Clinical Summary ---
Author Organization [facility] Address [address] [facility] [place] [address] Care Team Providers Care Repairer Pump Name Role Phone Meir Friedman MD Primary Care Provider [phone] Allergies Active Allergy Reactions Criticality Noted Date Comments Amitriptyline Hallucinations 12/22/2024 Latex 12/22/2024 Other Reaction(s): Other (See Comments) Ronquillo skin Penicillins Hives,Itching 08/22/2017 Other Reaction(s): Unknown Sulfa Antibiotics Hives,Itching,Unknown 018 Wound Dressing Adhesive 12/21/2021 Other Reaction(s): Other (See Comments) tegaderm ronquillo skin only if on for a long time PAPER TAPE Medications nitrofurantoin, macrocrystal-mo nohydrate, (Macrobid) 100 MG capsuleIndicati ons:Burning with urination Take 1 capsule (100 mg) by mouth in the morning and 1 capsule (100 mg) before bedtime. Do all this for 7 days. 14 capsule 5 01/14/20 25 Active acyclovir (Zovirax) 800 MG tablet Take 800 mg by mouth in the morning. Active tiZANidine (Zanaflex) 4 MG tablet Take 4 mg by mouth Active rosuvastatin (Crestor) 40 MG tablet Take 40 mg by mouth Daily 5 Active omeprazole (PriLOSEC) [address] capsule Take 40 mg by mouth in the morning. Take before meals. Active ibuprofen 800 MG tablet Take 800 mg by mouth if needed for moderate pain Active ALPRAZolam (Xanax) 0.25 MG tablet Take 0.25 mg by mouth 3 (three) times a day as needed Active gabapentin (Neurontin) 300 MG capsule Take 300 mg by mouth 5 Active metoprolol succinate XL (Toprol-XL) 100 MG 24 hr tablet Take 100 mg by mouth Daily 5 Active losartan (Cozaar) 25 MG tablet Take 25 mg by mouth Daily 5 Active metFORMIN (Glucophage) 500 MG tablet Take 500 mg by mouth in the morning and 500 mg in the evening. Take with meals. Active fluticasone (Flonase) 50 MCG/ACT nasal spray Administer 1 spray into affected nostril(s) in the morning. Active aspirin 81 MG EC tablet Take 81 mg by mouth in the morning. Active Multiple Vitamin (Multi Vitamin) tablet 1 (one) time each day at the same time Active cyanocobalamin (Vitamin B-12) 100 MCG tablet Take 1,000 mcg by mouth in the morning. Active cetirizine (ZyrTEC) 10 MG tablet Take 10 mg by mouth in the morning. Active cholecalciferol (Vitamin D-3) 125 MCG (5000 UT) capsule Take 5,000 Units by mouth in the morning. Active Ferrous Sulfate (IRON PO) Take 1 tablet by mouth in the morning. Active omega-3 (Fish Oil) 1200 MG capsule 1 capsule 1 (one) time each day at the same time Active magnesium oxide (Mag-Ox) 400 MG tablet Take 400 mg by mouth at bedtime Active Ozempic, 2 MG/DOSE, 8 MG/3ML solution pen-injector Inject 2 mg under the skin once a week Active Docusate Sodium (DSS) 100 MG capsule Take 100 mg by mouth in the morning and 100 mg in the evening. Active ascorbic acid (Vitamin C) 500 MG tablet Take 500 mg by mouth in the morning. Active diphenhydrAMINE (Benadryl Allergy) 25 MG tablet Take 25 mg by mouth as needed at bedtime Active Collagen-Vitami n C-Biotin (Collagen) 500-50-0.8 MG capsule Take by mouth Active biotin 62436 MCG tablet Take by mouth Activ e Encounters Date Type Department Care Team Description 01/06/2025 1:00 PM EDT Office Visit [facility] OB [address] [place] [phone] Michael Gavin DO Well woman exam with routine gynecological exam; Breast cancer screening by mammogram; Burning with urination 01/06/2025 Abstract [facility] [address] [place] [address] Michael Gavin, 01/06/2025 Bamboo flowsheet [facility] [address] [place] [address] Michael Gavin, DO 01/05/2025 Travel from Last 3 Months Social [...] oz) 01/06/2025 1:11 P M EDT Height 163.8 cm (5' 4.5 ) 06/27/2022 12:00 PM ES T Body Mass Index 24.91 06/27/2022 12:00 PM EST Plan of Treatment Upcoming Encounters Date Type Department Care Team (Late st Contact Info) Description 01/12/2026 1:00 PM EDT Office Visit [facility] [address] [place] [address] Michael Gavin, [address] [place] [address] Health Maintenance Due Date Last Done Comments CT Colonography 1960 FIT-DNA 1960 FIT 1960 FOBT 1960 Sigmoidoscopy 1960 Pap Smear 1983 Cervical Cancer Screening 01/03/1992 HPV/Cotest 01/03/1992 Mammogram 06/27/2023 06/27/2022, 01/05, 06/19/2016, Additional history exists Influenza Vaccine (Season Ended) 2025 05/26/2022, 05/11/2021, 05/05/2020, Additional history exists Colonoscopy 09/04/2027 09/04/2017 Colorectal Cancer Screening 09/04/2027 Procedures Procedure Name Priority Date/Time Associated Diagnosis [...] Narrative 06/27/2022 12:00 PM EST PERFORMED AT [facility] LOCATION:[id number] Procedure Note CONVERSION, GENERIC - 02/09/2023 PERFORMED AT [facility] LOCATION:[id number] us Julius Carson MD IMG BI PROCEDURES Final Resul t from Last 3 Months or Most Recently Relevant to Health Maintenance Insurance [employer] MED[employer]ARE [employer]VANTAGE Care Teams Repairer Pump Relationship Specialty Start Date End Date Meir Friedman MD [address] [place] [address] PCP - General 12/30/24
--- OUTSIDE RECORDS SUMMARY | 2025-01-06 20:11 | XMS_ITS | Clinical Summary ---
Author Organization [facility] Address [facility] [place] [id number] [address] [place] [address] Care Team Providers Care Process Excellence Manager Name Role Phone Meir Friedman MD Primary Care Provider [phone] Allergies Active Allergy Reactions Criticality Noted Date Comments Amitriptyline Hallucinations 12/22/2024 Latex Other (See Comments) 12/22/2024 Ornquillo skin Penicillins Hives,Itching 08/22/2017 Sulfa (Sulfonamide Antibiotics) [...] total) by mouth in the morning. Active bnojxlfz-ncou-LK -calcium &mins (THERAGRAN-M) 9 mg iron-400 mcg [...] mouth. Powder, 1 scoop daily Active omega 9-htq-dmn-fish oil (Fish OiL) 300-1,000 mg capsule Take [...] Description 12/22/2024 11:15 AM EDT Procedure visit [facility] - Pre Admit [address] [place] [address] Preop cardiovascular exam (Primary Dx); Hypertension, unspecified type 12/22/2024 10:45 AM EDT - 12/22/2024 11:59 PM EDT Hospital Encounter [facility] - Cardiovascular [address] [place] [address] Micheal Prado MD Preop cardiovascular exam; Hypertension, [...] Description 01/15/2025 7:30 AM EDT Hospital Encounter [facility] - Surgery [address] [place] [address] Kesha Davila MD [address] [place] [id number] 01/15/2025 7:30 AM EDT - 01/15/2025 8:15 AM EDT Surgery [facility] - Surgery [address] [place] [address] Kesha Davila MD [address] [place] [address] EXTRACTION CATARACT INTRAOCULAR LENS [01198 (CPT )] 01/28/2025 4:00 PM EDT Support Visit [facility] - Pre Admit [address] [place] [address] 01/29/2025 7:30 AM EDT Hospital Encounter [facility] Surgery [address] [place] [address] Kesha Davila MD [address] [place] [address], [place] [id number] 01/29/2025 7:30 AM EDT Anesthesia Event [facility] Surgery [address] [facility] [place] [place] [phone] Chay Saenz, DO [address] [facility] [place] [address] 01/29/2025 7:30 AM EDT - 01/29/2025 8:15 AM EDT Surgery [facility] Surgery [address] [place] [phone] Kesha Davila MD [address] [place] [address], [place] [id number] EXTRACTION CATARACT INTRAOCULAR LENS [15776 (CPT )] Scheduled Procedures Name Priority Associated [...] PM CARDIOVASCULAR - 09/04/2017 8:34 AM EST [facility] Patient Name: Cary Leung Procedure Date No Time: 09/04/2017 Date of : 1960 Admit Type: Outpatient Age: 57 Room: [place] [address] Gender: Female Note Status: Finalized Attending MD: Rehan Young DO Procedure: Colonoscopy Indications: Positive Cologuard test Providers: Rehan Young DO Medicines: General Anesthesia Complications: No immediate complications. Procedure: After I obtained informed consent, the scope was passed under direct vision. Throughout the procedure, the patient's blood pressure, pulse, and oxygen saturations were monitored continuously. The Olympus [id number] #[id number] adult colonoscope was introduced through the anus [...] 1 week. Procedure Code(s): --- Professional --- 67695, Colonoscopy, flexible; diagnostic, including collection of specimen(s) by brushing or washing, when performed (separate procedure) Diagnosis Code(s): --- Professional --- R19.5, Other fecal abnormalities CPT copyright 2016 [employer]. All rights reserved. The codes documented in this report are preliminary and upon warehouse delivery driver review may be revised to meet current compliance requirements. DO Rehan Keys DO 09/04/2017 8:34:47 AM Number of Addenda: 0 Note Initiated On: 09/04/2017 7:15 AM Procedure Note Rehan Young DO - 09/04/2017 [facility] Patient Name: Cary Leung Procedure Date No Time: 09/04/2017 Date of : 1960 Admit Type: Outpatient Age: 57 Room: [place] [address] Gender: Female Note Status: Finalized Attending MD: Rehan Young DO Procedure: Colonoscopy Indications: Positive Cologuard test Providers: Rehan Young DO Medicines: General Anesthesia Complications: No immediate complications. Procedure: After I obtained informed consent, the scope waspassed under direct vision. Throughout the procedure, the patient's blood pressure, pulse, and oxygensaturations were monitored continuously. The Olympus [id number] #[id number] adult colonoscope was introduced through the anus [...] 1 week. Procedure Code(s): --- Professional --- 47587, Colonoscopy, flexible; diagnostic, including collection of specimen(s) by brushing or washing,when performed (separate procedure) Diagnosis Code(s): --- Professional --- R19.5, Other fecal abnormalities CPT copyright 2016 [employer]. All rights reserved. The codes documented in this report are preliminary and upon warehouse delivery driver reviewmay be revised to meet current compliance requirements. DO Rehan Keys DO 09/04/2017 8:34:47 AM Number of Addenda: 0 Note Initiated On: 09/04/2017 7:15 AM Rehan Young DO GI PROCEDURE ORDERABLES Fin al Result PM CARDIOVASCULAR from Last 3 Months or Most Recently Relevant to Health Maintenance Additional Health Concerns Active Problems Noted Date Diagnosed Date Autogenerated Problem 12/15/2024 Insurance [address] [id number] [employer] MED[employer]ARE WORKER'S COMPENSATION Care Teams Process Excellence Manager Relationship Specialty Start Date End Date Meir Friedman MD PCP - General 08/15/17
--- OUTSIDE RECORDS SUMMARY | 2025-01-06 20:14 | XMS_ITS | CCD ---
Author Organization [facility] Care Team Providers Care Marriage Therapist Name Role Phone Emi Friedman Primary Care Physician [phone] Emi Friedman Referring Unavailable Rush, Sophy Attending [...] Unavailable CHANTALE ., DR MIDDLETON Admitting Unavailable HOY ., DR MIDDLETON Attending Unavailable CHANTALE ., DR MIDDLETON Primary Care Unavailable CHANTALE Dunn, DR MIDDLETON Consulting Unavailable LAKHWINDER, DR LATASHA Sethi Consulting Unavailable MARISOL ., DR UNDERWOOD Admitting Unavailabl e KARDORA ., DR UNDERWOOD Attending Unavailabl e HOY ., DR MIDDLETON Primary Care Unavailable MARISOL [...] ., DR MIDDLETON Consulting Unavailable LAKHWINDER, DR LATASHA Sethi Consulting Unavailable Emi Friedman MD Primary Care Provider [phone] Emi Friedman MD Primary Care Provider [phone] EMI LLOYD Attending Unavailable EMI LLOYD Referring Unavailable EMI FRIEDMAN Primary Care Unavailable EMI FRIEDMAN Referring Unavailable EMI FRIEDMAN Primary Care Unavailable Emi Friedman MD Primary Care Provider [phone] Allergies Allergy Classification Reported Allergen(s) Allergy Type Date of Onset Reaction(s) Facility (14 sources) Adhesive Tape; Translations: [Tape] Drug allergy Eruption of skin (disorder) [facility] (16 sources) Penicillin; Translations: [penicillin] Drug Allergy 03-27-20 19 Weal (disorder) [facility] (14 sources) Sulfonamides (Antibiotic); Translations: [sulfa drugs] Drug allergy Weal (disorder) [facility] (1 source) Desonide Drug Allergy 03-27-20 19 [facility] (1 source) natural latex rubber Drug allergy (disorder) [facility] (2 sources) Sulfonamides (Antibiotic) Drug allergy (disorder) [facility] (4 sources) Adhesive agent; Translations: [ADHESIVE] Propensity to adverse reactions to drug 12-22-19 22 Other (See Comments) [facility] (3 sources) Penicillins; Translations: [PENICILLINS] Propensity to adverse reactions to drug 08-22-19 18 Hives, Itching [facility] (4 sources) Sulfonamides (Antibiotic); Translations: [SULFA (SULFONAMIDE ANTIBIOTICS)] Propensity to adverse reactions to drug 08-22-19 Hives, Itching [facility] (2 sources) Amitriptyline; Translations: [AMITRIPTYLINE] Drug Allergy 12-23-19 Hallucinations [facility] (2 sources) Latex; Translations: [LATEX] Propensity to adverse reactions to drug 12-23-19 Other (See Comments) [facility] (1 source) Penicillins Propensity to adverse reactions to drug 08-22-19 Hives, Itching [facility] Medications Current Medications Medication Drug [...] dose nasal spray (10 sources) Corticosteroid Start: 021 fluticasone 0.05 mg/inh Nasal [place] 1 spray(s), Nasal, Daily, Refill(s) 0, Allergy [...] daily. 0 Active fluticasone 0.05 mg/inh Nasal [place] (6 sources) Start: 05-20-2021 fluticasone 0. 05 mg/inh Nasal [place] 1 spray(s), Nasal, Daily, Refill(s) 0, Allergy [...] blood pressure Start Date: 10/03/21 Status: [place] [facility] [place] Start: 07-11-20[place] [facility] [place] See Instructions, collagen powder 1 scoop daily Start Date: 07/11/22 Status: Ordered uxkspvtu-efbt-ZK-calcium &mi ns (THERAGRAN-M) 9 mg iron-400 mcg tablet (3 sources) jqrwzaaa-zfeg-VN -calcium &mins (THERAGRAN-M) 9 mg iron-400 mcg tablet Take 1 tablet by mouth in the morning. Active qksczscv-pbcw-WQ -calcium &mins (THERAGRAN-M) 9 mg iron-400 mcg [...] Prophylaxis Start Date: 10/03/21 Status: Ordered omega 5-fru-kcx-fish oil (Fish OiL) 300-1,000 mg capsule (1 source) omega 9-xxr-zaz-fish oil (Fish OiL) 300-1,000 mg capsule Take 1,200 mg by mouth in the morning. Active Omeprazole (16 sources) Proton Pump Inhibitor Start: 05-23-2021 omeprazole 40 mg, Daily, Refills(s) 0, Control of stomach acid Start Date: 05/23/21 Status: Ordered Start: 06-14-2020 take 1 capsule by [facility] once daily omeprazole (PriLOSEC) 40 mg capsule [...] Reference Range Facility ECG 12 leadon 12-22-2024 [facility]ACEMASTERVUE [facility] Coding Summary.on 10-23-2022 Coding Summary. CD:[id number] Gh0bWw+PGhlYWQ+PE1FV CRaQ14ecUIatB6iS1UKW ElOSywgQVBQTElOSyIgb hMoYP6mhWFlGQEn IC8+GV6bUCCoOariwJQe g2V5uJP8N22gjo8zLFkc eDG7DCLwDdOkgurmf5fn eRr0WSjdUdulDyUl REBfkH57TFJ7sV86Bp62 qRPyzVXnn4osiIw8RbTs YPWkNTP7uNsnRUqgw3Av ZDVbJ42nrYXrm5F8 IGNvbGxhcHNlOyBlbXB0 qW6pIEtdvuxie0udynaq Tsf0sb63kOGoo7S7uFX3 H1HmwdD2NNPslNGn OktcxFADqM1igqwva2pw ypjhWsCdANTaQLg3FYf2 UJVriOgeHuGaHA93ABD1 NCYbqyUiI8CwHQQk bRneGaH6p0B7Yn5XX5BU DpnlW1NEAJGVDAjetCJ+ IO35vp92E6SgJlpmAjn9 GHYeRAA4sLK9iA0i LIBiUGyvz0J0lOY7X3Vo rgZvyy3ep2dfZZWiFNmu J46vbVFpx2J1BNIsiVS4 HRInvXdrDfLwfI57 Oyc+COSxmAsln3KpKsou e2kkn4gmwYv8VdmvJDGk zmEtdAsqGGW8f4KtQu8b MXKpaCW8yVE7tS3q VlOfMxM5FWclH024SpAt dDErMlphJ31qT7ZtfTX+ BKLtUxi6RRKfrRwwKD4v L7HvGQWjqelsoADa jXjlVG1oBDJirwffOYBp qD8bYIBqU0a0BsDfXuL0 EGqcP8NaSDWzpzkgQv72 qD5lBhSbMpT1ARbc A4WhdxY6ACTmzFCfRWmm TUS2K41bp0B1AIApZOWo ZID1ePV7lX7gwMmgxwfl bGVmdDsgdmVydGlj ZIzcQAvhA407OLOzuIjz PkNvZGluZyBEYXRlOiAg MDMvMjAvMjAyMzwvdGQ+ LDIhMKS8iSqsTFAj dCEhAWmjZq8gkQragJzp DC4eZGJsytjfHMCsmU1t MBFsmBDbtCfwOW6iJJXn oqfaq304RzYsLAW5 GKFtrWYwA1AtzW5ePiQm XFHqKLKoD0YneHXbGMfc F214UTarKsB7KOTapeEn O7LqCJYyjDmtLuP0 g1F6Vn6Ti8IhdtzyC8Xj iQFhHaYuIqjdIOh8H6Ll PjwvdHI+EF36OGNjNL82 NTl4OCS3cUzaRCbl TJWzO8XgvH0rNnNrDOCs ZGRkOyc+PHRhYmxlIHdp ZHRoPScxMDAlJyBzdHls NA2wYs8hQDQbTQYv sMrufFBbSzPyf6jxAHWe DGtqUW5zrQdhE2JjrAA3 GHXtj0a0Mm34X16aP7Bg dXA+ZURspVM4hPD7 dB8kEaItWlP1VAkaN709 MlUiqHTvFgukz5lml4nh nDl6WcV6DLFygkTqnIxy JSW8x7OfRl72N10d IHdpZHRoPSIxNSUiIHZh fXxrrv5leG0oMh0+PGNv qPP8tPV6kE6tItEaKcL2 ECvuB261YjVjwHDo Thlot7wfq2apuDo9GgWf CIMzkzCjlLmuKRP0g7Dc Ld63U8NetNdhn3TyWmb3 uq20rIPas0J5lKQ9 P8HuUTJmjofqyTQmxPzi HQ2jHNHxrxzuRLNmaY8n MVGmX1k2SmIfFkS8QByj W4TwxbW4SMFjjVWw UUBlmEKZpF7mmgexl1xr vzajIsJxMPIqZEy1FTl7 MSDbaQvwGxAjMFH6AnP9 BEI4xOKbwL3xvMwp raimiU4gTnz+PNM8rPUy vZUVJB9zIuqouPC+PHRk EQM6mZmqBOrlXWOjuL1g LROwA5q4NgXdXtA4 ZGzlK3UkbkD4ZQAkkQYp IGPijYAZcO8lyxtok1lx drnyQwGkPJBgTNd9DWe7 LWFsaWduOiBsZWZ0 TyD0NCV1oJRgaC6foQel oqwccS5fKln+QmlydGgg YZQ3SDj0I2DmEwx2TRCo tTgdQO4unNMqLXdc Tg0luUpfjKypWD1oKPSy bzlhp696UhIvg0vkRZMb uSUbUVssZNY3K76jn8S1 PMHnFFGnCMP2cBD4 zK1jrYisogibfEBigErw hmHacIkiULopMKjaV465 PDBbbHvpErVhOMe3G7Qy Cvj4HNEflGenIR3x kLQlLLsbQu6lvBhkzNng LV2xJCOjbbrbv480PzKi z1vbXCEndAAoQEjfGRZ7 B76js4P9OLWnHBMy IZG1hFB3cK0szWzylvwc bGVmdDsgdmVydGljYWwt AVqzN832AZQvyGhdVlNj oKi9G6NgVql3JYId jYxyQW0doQSyTOmuYv6q sTshwQfsQZ4gLIJlhiuk e356RfHfg7qaKJKfhWVf HTtkRNH6N32ki8Y6 NGJjGVDnWBL5lBT7vP3y bGlnbjogbGVmdDsgdmVy rLzgEYmwNSrpO180KMFl cDsnPlBhdGllbnQg QLpjCWx8W8JyEkhxrFO+ BU55UYAgRT11kGBfdCIk y3urvEc7OoNgJWGeOKQ9 vTokUXznm3FxTIYn P97bxYCem5E6AETkkBdj cVCcEzKheHM6zB9nLMyn vqcas7wavwggSlzmh9ol pz14cK38X27dSXxo ZHRoPSIzMCUiIHZhbGln jv7vvL5lAn1+PGNvbCB3 bQY0bZ7xROJqMrV5IRaa Y778AvRnoJRjGzpm i5omj7lwrMd1LvF9FIBf vwGmnRviXZO1r0TvCg11 Z49jONzrRTTyBOFhXIPb ULRmmSnmlc2scT1w Ii8+XBOzmVN9nRL7hU1i FsZzIuN4QJteQ612WqUs wKDuWppgZ65nW9YdwWU+ QXMeEau9TAFfzRes IW0aeKEkRHjqYy8jBVM3 NgDaTeVwUNfxC1MkZXRd meylwjpcgSJ5CXJzNUHi dU78Uz2rdFykFGPr sVCRfD0egqdaq7xkjbbk HeCjPZYeATb2ELk2OWUw gHvcZuYcLQW7BkU3CDA9 gBBnrH2lgAxxxvof tY8dS3VzFOSwsvfpBe96 qF3dMzYzUuR7YVuwPtn+ VgLFXb0FDQejKWCLNbFv QTwvdGQ+PHRkIHN0 bUmxYPkdSEEidM6iVDHq V6j4RuNnIbK6UYncB6Rs DDHvllrdPs46xB1yFjYy EjE9SYscJ0JnqyD3 ABOcrMNyRNhsDCQ5Y94h p2V4ECUhOGJsINU3hSB6 aJ5uiSugziqwrDGoiEmo dmVydGljYWwtYWxp F837YLCgrOtmXpR4BjGc GvR7LjF6T4UrPwg8XNIg yVbzLY4vnDPqLMppMv3t jEqshDwdPZ1mANFx lhxtCSBrgU0tPFIdcMYm nRzpXI8dMMGyderpp455 DgTeTOL6WZHhzHNrQ2Xk eK0pAuMfYNYfOCUr C1UhrTGqYJpzV993NWwq KxQ6RANikuTkB6OvJWCx sIkwJlG4b1S2Wi93XFJS ZWFyczwvdGQ+PHRk CDZ0xYyuQQbuETIrxX3m VHAiB6y0AsPyRtU1BAhs L9OkDWYcdjgyUi44dT8t FoDzZwK2PVwdI2Hi ykZ1ZQQorYBjIIohQXO1 L65jg6H7JDGbEFRpQEH5 nOC9lB5pgDukkreliYIs dDsgdmVydGljYWwt WZvcK071FPIjxDiiXgCe bWFsZTwvdGQ+PHRkIHN0 eIrnHEycMLDueF2zURHj T0p5JuMyZhI9KXbz D6ClDNGdnfjbOz56jC3p KkGkAgE3FWpdS9ZqrkT9 OUQtpQPpQQxsYRR4Z82r p7Y9VFCvTWYwPUF7 xBR1zV4zpBgodzcyeETo dDsgdmVydGljYWwtYWxp Y858ABTocUysNh99jPWu gIqpruC3X9OxKtef dHI+VQ34EUMzEF59rKDl xAOdh2blsHf3CzDsOPEm TLB9kNwqDPruk1EzMGYg B87tiJNzo1S6OTJa dCufsONeHmPqqJG0zD1l WKfohmqsm8xhghdbDezp i8mwkf62oH22L70tBDik ZHRoPSIzMCUiIHZh yPngzr6bgT4iWv0+PGNv lPM0hEC0uO9nQuRzYlI9 JWurM762FmBzwYQlMiyx a9gfr3xlkUg8WaPs YXMqrgMdqVixRPY4w2Lg Tu81L07qZKobOMEoBSHg DVNkQONhxHidzd9uyO7k Ii8+JA0hr8dchk57 wC73jKM+AMFpTQI4bUid EFugZCOonK4cEMijYqU7 MKScYiZbgD52zOHmYGbi Yu1ayRcfmQulMB0e ROQdpwurk271AeKry9dd ZCOadOFjRDdoSNM4Y18e i4S1KZLeQAQyKYX9jMN6 jG8xhVepeocetJDj dDsgdmVydGljYWwtYWxp W077OTUanElmHaYriZUy M1waqeWCWP0hRiquiTP+ XUWuZDM6bIrtIVgg MJUvdJ0wHJDvI4u7TsYj UlL6JRfbF5IwhbQ2NIJc iMCwOLResSNMpU2fpawg a7zxqsgxZrPpVVOd FJp6SYf6WCQilKtzQtLe HPU9DrM8MRL8fVIqfZ4e jWnfkdtonR7nDai+RklO OjwvdGQ+PHRkIHN0 xZasNKxgLNScrY6cFGMi L8k5BgNaCyE8OIgfN2Th wdE9RRYyvLKcZCZdsMCP hG7qcxrbz5yzoiif CbPhYULgRBk0VMf1WQKj kFvrMbLwHIV5GiW4XJC1 gSOjpH1utPrqusqqcV9y Oyc+TVJOOjwvdGQ+ OIImINY8oSozQEqlHFSs uW3zPASbI6f9FfUrCzK0 YBxdP8CufyC9PJBzdLTr BJTggWUGbF8kpmwx q9ztdjusEmAxLLBgXYb2 YDc5TYHvlTsiJuWaTIW1 YfR9XSM3jJQnjG2byClf moqlwK0rQsz+UGF5 PMA9KC96EE93C3XaDoms dGFibGU+PHRhYmxlIHdp ZHRoPScxMDAlJyBzdHls VI9mQt6yUSElTYHn bGxh (more content not included)... Normal [facility] Coding Summary.on 10-17-2022 Coding Summary. CD:[id number] Gh0bWw+PGhlYWQ+PE1FV UKnL51ifBBvrD2kT8QAG ElOSywgQVBQTElOSyIgb gFkGG7khWIrKSJu IC8+II0iXKWnNmaksPTr a8Q4uGI8R07jhr6kVVkp hKM3FKXtSsRrpzjex5fm qLv0ZIykPvysCtYe ZEZxeL55XRG9tP62Bd96 uBFksKPjs7bhhMm4BaYa ZDTiMJU9pZyqFPmds6Pt MDXgQ25pxWYum3W7 IGNvbGxhcHNlOyBlbXB0 uO6fCLtghepla9tjqpjg Dwy8ac61xWBee1S4dAZ4 K2SffeF8NOEriWYs NwtwnTLCiU5mlrtmk6bq teufHnHvBMXrXAq5YDo5 FKWrrWjhBxBdNP77NTV4 UJPljiXtT6XiUCJm vYewFzV5w7J8Kg8BR5KT NqtoX5YYBCMXEGszjPJ+ MU90ej60P2IeMgyeGll3 XZGvCSV3pDW2wE2p FRJlFQudj4A2uTT2D4Pb daXido1mu0orFUQpXUlf Q61lcVXgr3M0OHWjgQQ3 PDLquIisNgDcqG10 Oyc+FAXngUvil0RzNuua l4fpd1rgxVi9XidiAVBq voJbkFnhBTY1f9XsAv5f EMGvlYQ1qRU4vB5f XxSyLbR3TQizQ020RiXv pHZsQxsdR57aG9QleNI+ ZWGqJlf1PFPcbUwqXK8v Z3XoZZWopgjtfKLn vXdvYC0bDPDjvvstYZOp xJ0fNTNkV1v1YqIcDjE3 TBneT4GkFYRjzzdnSx04 pF4lKpBnTfM2GCyx C8MmgfJ5OGQkySBuYPrk KZS9I16pg2O8BZHmLXGl FDK4rSZ7qY4krZjkxljd bGVmdDsgdmVydGlj GTnzLJshH759NQRqgMiz PkNvZGluZyBEYXRlOiAg MDMvMTQvMjAyMzwvdGQ+ CJOeCNX0fAyjFNYd uPYzWVteBw0dvOzhtLtq PG7fUBEeuvlcSUTguF8a HNNlcBGemIgpSQ5iZFGg ssntq412OrKyUAH1 ZKMpsRKdJ7FmnR4hJhLa VXNnDVZiZ1DlkXSrLPvf M332OHuzRtS6ZJNigrWu Q7GpBOMqoUtzGcF7 c3P3Og5Cy8KpqytzU2Ru qWPjOfOgSkqdHQq2W7Ie PjwvdHI+LS13ZVWdXY65 MHl9LPO9qOqwIFnn OYWfO0XfbV9dMaMkHDFc ZGRkOyc+PHRhYmxlIHdp ZHRoPScxMDAlJyBzdHls TV5sLi5jAUXwZYLm fHknqXQsNqKpk9glIENu AXigXS3zlKkbN7CcjFJ5 UYDgo9b8Ls74G17aQ4Yk dXA+WHVxfLE2iQK5 sK1fZrJrPoE2MHpoE337 ZrAvkDZsGeudd2coq7rq gGk1VnU8XDNsffVgoXsp BYA4g2YfMr35S65d IHdpZHRoPSIxNSUiIHZh iTrnnk9hxT0uDs6+PGNv cUQ4bNY9nS3oWmDiYjL4 BXigB307DsRfrGIi Bpvrs2zjh5htyLc3SkSz WSEcinHvoLicIWE2y2Go Vg73A2PntOene5GcQiy3 tq47zVTnc3B2tRX7 E1RsYVBnxhskaKXijQby AO0kIHLtinjbLKOhpR4b DDRuR9l8HpHxHcS8CYeb Q5OjuiZ0RWMddVTw ZHRfqVWPnH0rzroxg5lb gjsrYkAuAGWlPSe7SAy4 CTQosBhuZmWqAPJ3RqH4 HPG6rSCwpR6tlJnb oywdnM8vKkp+KKT1pAOy jINOBL3vBbsajJF+PHRk UBD7kXhqKXgqGHVxpR4w CONgV8s1WfHzSgJ1 EHzyT0IiaaZ3GZElkJOs NTJwuQAEpL5emswoo1mf qhpfGiCdYOUzWYs1ESe2 LWFsaWduOiBsZWZ0 WcS4WUH3iXFuqD6tfXuw gpcieV3xGji+QmlydGgg QTM1BMw4Q8NeLzr6BGOw yRdeTT8vsTSwRFjk Pt3kqRecnGguHK8hHRFw ttpka285OuQay7lvYMSo pBLiBTdiXNF6R35nf2D0 XGYwQJLjRMU8fFE5 jB0jnSrhtmnenBUppOlp vsUmtDynXBfpIYujW868 BPVpiUeuHlYwGIe7S0Kt Bas3JBRicAikTN4v nHOsPKirTf7qxMwkwYnk CJ5nLFPrggtqv995ZdYk a5fkYDZanIZmSOofAVX2 D98np6G4NQHbDJSi ABC2rZM2vC3amTimgoaq bGVmdDsgdmVydGljYWwt XLppF330FEDjhDirRxWe gIk5X4PuNjw0JIGo yYhbPK5dxLJeXSvuWw5k qKqyvCgkDW5iWYHuttkf v254AlGcj8sgGSGvgUUe LRqkDYD6E96ld4S0 PVUnUOMhGEC6kGY0dI7i bGlnbjogbGVmdDsgdmVy xCdvNRjdHOhrN311BLVd cDsnPlBhdGllbnQg MXncNDl9P6EcPfaohPI+ YL46QUKiPR82uKWmbMEb i7jvpSw3WwCkZDDrWWF3 dFndYMojj2BrPDBc I01hzSBee8C4QKTfkZoe mXDgByDcjWG4jY0xNEyw afsdm3njplrtDztwj6ua rh25zU30W03mMSmi ZHRoPSIzMCUiIHZhbGln qa7duR7qTr0+PGNvbCB3 kXY6qI3xATHfWfP4XCal S826SzNzoQUtVhkd d0fcc6phfOt8SpX2HYYa ixRonUnoJCV5p9ZvXi83 C00aSJuiCMVeVSOlFHWc RYPbrVoosh0icO3c Ii8+BMXbtIM5hLQ2xY2g FqMvUdU3QKvmV745LaHd cFYxOpnlB08wH5XvkJL+ BCCjPqs5USJviCdp XH2gyKGzWDepVc4qQYM3 MpCjClNdQIdnQ4OdNNHr ojirhgoheVL1VWDvOJKf iU31Wj6itYxcNYMg sBFBqC0dfjmim0ixisrq PkPaJJJpGNj3INl6VLYc bXgbHnGaDPY5VrU3CTF6 eYMyqU9flYchdaxi wS1lS8QvEIOyktstBz94 lL1yXvPqLzY8GZpqPsr+ VfWONj9GNHxlRRAGBpOe QTwvdGQ+PHRkIHN0 qTkaAFeaSNIbaU2rHRPv V1r2McQfMvL5FNaqW9Qe UQOdddyzDv84hD8dKeBf FaN5ZYinT9AwdtB8 GSApbQZqGIxbVJS5R00b y4G1XSOyQFZsIJF3pGL8 nG5bnDhbxfvdqXRtvPzy dmVydGljYWwtYWxp K836EOLorFygMwV0LvZu RwC3IgG2A8PxXre8OFCz uJbmSA8cwIXhBWggFi6n xAsxrKsfHU0lYPBv xynqTIJmpT6eQYDepVBw oPjcSC4kTNMugodky812 TlJiHVS4NHRsnRLyF7Sq rU0mJmZdXPQzGGPn B1FrpYRbAMqiO696VWdz JfI7HIHuejNvS1XjJDMq lJnaFzM4s0K3Hf62JDPS ZWFyczwvdGQ+PHRk OFV2iOelFJruDIKbeY5v NNSdM2g2XyAbAtW4VQro P2RwQIGgifkjIq18lF5h JuFzDuS5JUikA5Kd okJ5QKKrnHMpPPuyHEJ3 T58lj4O2SACdFHUaSOG3 bYA2xR0lyOrwvznlfRHj dDsgdmVydGljYWwt AAcqG942OGBjeRkyYeAi bWFsZTwvdGQ+PHRkIHN0 gAfpNDawFQMbaV9fMYHl W3f8JoQaIlI3PCjo B1CzSZJyytlwXv47jQ5h KrKzMpB5KVlcJ0KhtgL4 XEAdsQXvSXkkHGX4W68g h7Y2SGBhVQJuNDS0 xRS0vL3wlFyjcpegbQTe dDsgdmVydGljYWwtYWxp H635VAQwaPgvDz56jDPm uKlhqrQ6X5YhNstc dHI+OW79BGEfNO99rHOd jZUrq1bkcJj0LvOeLPIa HKS6yFvsUWylu7IfCYHr T96ldRVqg4B7LDMg zBquoCPaOtFujNA8bM2l TNzpymmgi4dxdlugNhvb u0isrr66bA89M96uJBpq ZHRoPSIzMCUiIHZh mSfmgo0rjK0yLr5+PGNv sSR0jOY0kU8iDeYyGxN2 CZrbJ721AmOsuUWwIbfg d8ccv5lswVq6MkPd NNLpolVjoNysTAX8u8Ku Ek35D66oWOfhVMKbMGOt TBFlJQSjwXwrao5ihJ9s Ii8+FK7st6rotr40 kY04nRO+BAAwAPZ9yMih JNvxFTTrkN9bMEmiWcG2 QGArNbSjkK39bZDmPEjw Dq2btJkwpPzwKD7g ZUTmjduov892XmJfe2ed RSZzmKZjRTssOOO6V43g d9P8PPKaQDNnADH3tXP8 mL1ofXpwmgrksHMx dDsgdmVydGljYWwtYWxp R254NRYiiTguGgNtdOBp D2gaqvEGJY5zPcpjzWK+ YPOsCHX8tQrbFRdh RYIulS1kZKWwV2h2XhIz XwF8EGytU0NsaaJ5ZGHs qNSsPASeiRIQmO3qdfcu j5hnlpstIgWtGTTg UBc4FBn5VYBwuNgaWfBj GYP9OkU6VUB3dZZhbX1q nEvoyruoiJ5xAlu+RklO OjwvdGQ+PHRkIHN0 nDrzXNzyIOPytD1sLMVw Z5k9AqKtGbG6UExqA8Ql pxU6QYWwyBGbZBPxgKOP rS9vykfsz4bgcknf SdUvIRZxSIv0DQz5KFLd tEaqXcOrUMC4IhD7FQN9 aKBwdE6eqBbukqvwfT3r Oyc+TVJOOjwvdGQ+ LDBeCKC1kPfeRWgaPRBq bZ8gAUVyQ0g2YsOuPbH6 CPvtV1FbfmU7UCIydHGa SVFoxQGJxG6zgxrw r8iptlytQmSjASZbDEm5 SKp7IRVqfRkvLdBzDQA7 UdR9YRF0wDVxpW7yyFsj fkjlvL5sHjy+UGF5 YTV4LO79YD25B3YbZqdt dGFibGU+PHRhYmxlIHdp ZHRoPScxMDAlJyBzdHls RL5wMs6dCGUpBFKv bGxh (more content not included)... [facility] Consent for Treatmenton Consent for Treatment [id number] 19#1.00CD:127 [facility] Consent for Treatment [id number] 4#1.00CD:127 [facility] Consent for Treatment [id number] #1.00CD:127 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 Hypertension / SNOMED CT 2872816352 / Confirmed Anxiety / SNOMED CT 70743872 / Confirmed Lumbar disc disease / SNOMED CT 1411800792 / Confirmed Lumbar radiculopathy / SNOMED CT 414544591 / Confirmed Chronic gastritis / SNOMED CT 31125140 / Confirmed Migraines / SNOMED CT 30198432 / Confirmed Insomnia / SNOMED CT 107905287 / Confirmed Colon polyp / SNOMED CT 269333412 / Confirmed Chronic leg pain / SNOMED CT 337283976 / Confirmed Laxative abuse / SNOMED CT 850276121 / Confirmed Chronic cluster headache / SNOMED CT 737601444 / Confirmed Vitamin D deficiency / SNOMED CT 90151195 / Confirmed Hyperlipemia / SNOMED CT 32786118 / Confirmed Osteoporosis / SNOMED CT 618925180 / Confirmed 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 Resolved due to patient discharge. Resolved: Impaired skin integrity / SNOMED CT 22367997 Problem added on documentation of skin impairments. Resolved due to patient discharge. Resolved: FH: migraine headache / SNOMED CT 351655536 Resolved: FH: osteoporosis / SNOMED CT 1768922335 Objective Vital Signs 10/10/2022 13:14 EST Peripheral Pulse Rate 62 bpm Respiratory Rate 12 br/min LOW Systolic Blood Pressure 135 mmHg Diastolic Blood Pressure 68 mmHg Mean Arterial Pressure, Cuff 90 mmHg Gen (more content not included)... [facility] Comment on above: Result Comment: Elec tronically Signed By: Sophy Rush PA-C\.br\Date and Time Signed: 10/10/22 13:32 EST\.br\Electronically Co-Signed By: Derick Meza MD\.br\Date and Time Co-Signed: 10/17/22 18:24 EDT Office/Clinic Note-Nurseon 0 10-10-2022 Office/Clinic Note-Nurse [id number] #1.00CD:127 [facility] Physician Orderon 10-10-2022 Physician Order [id number] 4#1.00CD:127 [facility] XR Spine Cervical 2 or 3 [...] mGy = na DAP = na Normal [facility] Insurance Correspondence Off iceon 09-08-2022 Insurance Correspondence Office [id number] #2.00CD:127 Normal [facility] INSULINon 08-28-2022 Insulin 53.4 uIU/mL Critically high 2.6-24.9 [facility] Comment on above: Performed By: #### C BC #### [facility] [address] [place] [address] Dr. Jeffry Daniels CBC AUTO DIFFon 08-26-2022 BASO # 0.1 103/ul Normal 0.0-0.1 [facility] Comment on above: Performed By: #### C BC #### [facility] [address] [place] [address] Dr. Jeffry Daniels Basophils/100 WBC (Bld) 0.9 % Normal 0.2-2.0 [facility] Comment on above: Performed By: #### C BC #### [facility] [address] [place] [address] Dr. Jeffry Daniels EO # 0.2 103/ul Normal 0.0-0.7 [facility] Comment on above: Performed By: #### C BC #### [facility] [address] [place] [address] Dr. Jeffry Daniels Eosinophils/100 WBC (Bld) 3.2 % Normal 0.9-7.0 [facility] Comment on above: Performed By: #### C BC #### [facility] [address] [place] [address] Dr. Jeffry Daniels Erythrocyte distribution width (RBC) [Ratio] 12.1 % Normal 11.0-15.0 [facility] Comment on above: Performed By: #### C BC #### [facility] [address] [place] [address] Dr. Jeffry Daniels Hematocrit (Bld) [Volume fraction] 37.0 % Normal 36.0-48.0 [facility] Comment on above: Performed By: #### C BC #### [facility] [address] [place] [address] Dr. Jeffry Daniels Hemoglobin (Bld) [Mass/Vol] 13.4 g/dL Normal 12.0-16.0 [facility] Comment on above: Performed By: #### C BC #### [facility] [address] [place] [address] Dr. Jeffry Daniels IG # 0.03 10e3/ul Normal 0.00-0.03 [facility] Comment on above: Performed By: #### C BC #### [facility] [address] [place] [address] Dr. Jeffry Daniels IG % 0.5 % Normal 0.0-0.5 [facility] Comment on above: Performed By: #### C BC #### [facility] [address] [place] [address] Dr. Jeffry Daniels LYMPH # 2.0 103/ul Normal 1.2-3.8 [facility] Comment on above: Performed By: #### C BC #### [facility] [address] [place] [address] Dr. Jeffry Daniels Lymphocytes/100 WBC (Bld) 35.4 % Normal 20.5-60.0 [facility] Comment on above: Performed By: #### C BC #### [facility] [address] [place] [address] Dr. Jeffry Daniels MANUAL DIFF REQ NO Normal [facility] Comment on above: Performed By: #### C BC #### [facility] [address] [place] [address] Dr. Jeffry Daniels MCH (RBC) [Entitic mass] 32.8 pg Normal 26.7-34.0 [facility] Comment on above: Performed By: #### C BC #### [facility] [address] [place] [address] Dr. Jeffry Daniels MCHC (RBC) [Mass/Vol] 36.2 g/dL Critically high 29.9-35.2 [facility] Comment on above: Performed By: #### C BC #### [facility] [address] [place] [address] Dr. Jeffry Daniels MCV (RBC) [Entitic vol] 90.5 fL Normal 81.0-99.0 [facility] Comment on above: Performed By: #### C BC #### [facility] [address] [place] [address] Dr. Jeffry Daniels MONO # 0.6 103/ul Normal 0.3-0.8 [facility] Comment on above: Performed By: #### C BC #### [facility] [address] [place] [address] Dr. Jeffry Daniels Monocytes/100 WBC (Bld) 10.4 % Normal 1.7-12.0 [facility] Comment on above: Performed By: #### C BC #### [facility] [address] [place] [address] Dr. Jeffry Daniels NEUT # 2.8 103/ul Normal 1.4-6.5 [facility] Comment on above: Performed By: #### C BC #### [facility] [address] [place] [address] Dr. Jeffry Daniels Neutrophils/100 WBC (Bld) 49.6 % Normal 43.0-75.0 [facility] Comment on above: Performed By: #### C BC #### [facility] [address] [place] [address] Dr. Jeffry Daniels Platelet mean volume (Bld) [Entitic vol] 8.9 fL Critically low 9.5-13.5 [facility] Comment on above: Performed By: #### C BC #### [facility] [address] [place] [address] Dr. Jeffry Daniels PLT 343 103/ul Normal 150-450 [facility] Comment on above: Performed By: #### C BC #### [facility] [address] [place] [address] Dr. Jeffry Daniels RBC 4.09 106/ul Critically low 4.20-5.40 [facility] Comment on above: Performed By: #### C BC #### [facility] [address] [address] [address] Jeffry Daniels WBC 5.7 103/ul Normal 4.0-11.0 [facility] Comment on above: Performed By: #### C BC #### [facility] [address] [place] [address] Dr. Jeffry Daniels FREE THYROXINE INDEX T7on FTI 3.64 Normal 1.30-4.50 [facility] Comment on above: Performed By: #### C BC #### [facility] [address] [place] [address] Dr. Jeffry Daniels T3U 34.0 % Normal 30.0-39.0 [facility] Comment on above: Performed By: #### C BC #### [facility] [address] [place] [address] Dr. Jeffry Daniels T4 [Mass/Vol] 10.70 ug/dL Normal 4.80-13.90 [facility] Comment on above: Performed By: #### C BC #### [facility] [address] [place] [address] Dr. Jeffry Daniels GLYCOHEMOGLOBIN A1Con 2022 ADA RECOMMENDATION SEE BELOW Normal [facility] Comment on above: Result Comment: ADA RECOMMENDED LIMIT 4.0 - 6.0 ADA THERAPEUTIC TARGET < 7.0 ACTION SUGGESTED > 7.0 Performed By: #### A 1C #### [facility] [address] [place] [address] Dr. Jeffry Daniels Glucose [Mass/Vol] 120 mg/dL Normal [facility] Comment on above: Performed By: #### A 1C #### [facility] [address] [place] [address] Dr. Jeffry Daniels HbA1c (Bld) [Mass fraction] 5.8 % Normal 4.5-6.2 [facility] Comment on above: Performed By: #### A 1C #### [facility] [address] [place] [address] Dr. Jeffry Daniels IRONon 08-26-2022 Iron [Mass/Vol] 64.0 ug/dL Normal 50.0-170.0 [facility] Comment on above: Performed By: #### I ELISABET WHEELER #### [facility] [address] [place] [address] Dr. Jeffry Daniels LIPID PROFILEon 08-26-2022 CHOL-HDL RATIO NORM SEE BELOW Normal [facility] Comment on above: Result Comment: 3.3 - 4.4 LOW RISK 4.4 - 7.1 AVERAGE RISK 7.1 - 11.0 MODERATE RISK >11.0 HIGH RISK Performed By: #### T SH, CMP, T7, LIPID #### [facility] [address] [address] [address] Jeffry Daniels Cholesterol [Mass/Vol] 267 mg/dL Critically high <=200 [facility] Comment on above: Performed By: #### T SH, CMP, T7, LIPID #### [facility] [address] [place] [address] Dr. Jeffry Daniels Cholesterol in HDL [Mass/Vol] 45 mg/dL Normal 40-60 [facility] Comment on above: Performed By: #### T SH, CMP, T7, LIPID #### [facility] [address] [address] [address] Jeffry Daniels Cholesterol in LDL [Mass/Vol] 178.8 mg/dL Normal [facility] Comment on above: Performed By: #### T SH, CMP, T7, LIPID #### [facility] [address] [place] [address] Dr. Jeffry Daniels Cholesterol.total/Ch olesterol in HDL [Mass ratio] 5.9 {ratio} Normal [facility] Comment on above: Performed By: #### T SH, CMP, T7, LIPID #### [facility] [address] [place] [address] Dr. Jeffry Daniels HDL NORMAL > or = 60 mg/dl - LOW CARDIOVASCULAR RISK <40 mg/dl - HIGH CARDIOVASCULAR RISK Normal [facility] Comment on above: Performed By: #### T SH, CMP, T7, LIPID #### [facility] [address] [address] [address] Jeffry Daniels LDL CALC NORMAL SEE BELOW Normal [facility] Comment on above: Result Comment: <100 mg/dl OPTIMAL 100 - 129 mg/dl NEAR OR ABOVE OPTIMAL 130 - 159 mg/dl BORDERLINE HIGH 160 - 189 mg/dl HIGH >190 mg/dl VERY HIGH Performed By: #### T SH, CMP, T7, LIPID #### [facility] [address] [address] [address] Jeffry Daniels Triglyceride [Mass/Vol] 216 mg/dL Critically high <=150 [facility] Comment on above: Performed By: #### T SH, CMP, T7, LIPID #### [facility] [address] [address] [address] Jeffry Daniels VLDL CALC 43.2 mg/dL Normal [facility] Comment on above: Performed By: #### T SH, CMP, T7, LIPID #### [facility] [address] [address] [address] Jeffry Daniels PROF 14(COMP METB)on 023 Albumin [Mass/Vol] 3.6 g/dL Normal 3.4-5.0 [facility] Comment on above: Performed By: #### C BC #### [facility] [address] [place] [address] Dr. Jeffry Daniels Albumin/Globulin [Mass ratio] 0.9 {ratio} Normal [facility] Comment on above: Performed By: #### C BC #### [facility] [address] [place] [address] Dr. Jeffry Daniels ALP [Catalytic activity/Vol] 58 U/L Normal 46-116 [facility] Comment on above: Performed By: #### C BC #### [facility] [address] [address] [address] Jeffry Daniels ALT [Catalytic activity/Vol] 41 U/L Normal 14-59 [facility] Comment on above: Performed By: #### C BC #### [facility] [address] [address] [address] Jeffry Daniels Anion gap [Moles/Vol] 14.5 mmol/L Normal [facility] Comment on above: Performed By: #### C BC #### [facility] [address] [address] [address] Jeffry Daniels AST [Catalytic activity/Vol] 27 U/L Normal 15-37 [facility] Comment on above: Performed By: #### C BC #### [facility] [address] [address] [address] Jeffry Daniels Bilirubin [Mass/Vol] 0.2 mg/dL Normal 0.2-1.0 [facility] Comment on above: Performed By: #### C BC #### [facility] [address] [address] [address] Jeffry Daniels Calcium [Mass/Vol] 9.2 mg/dL Normal 8.5-10.1 [facility] Comment on above: Performed By: #### C BC #### [facility] [address] [address] [address] Jeffry Daniels Chloride [Moles/Vol] 103 mmol/L Normal 98-107 [facility] Comment on above: Performed By: #### C BC #### [facility] [address] [address] [address] Jeffry Daniels CO2 [Moles/Vol] 24.8 mmol/L Normal 21.0-32.0 [facility] Comment on above: Performed By: #### C BC #### [facility] [address] [address] [address] Jeffry Daniels Creatinine [Mass/Vol] 0.76 mg/dL Normal 0.55-1.02 [facility] Comment on above: Performed By: #### C BC #### [facility] [address] [address] [address] Jeffry Daniels EGFR-AF MEXICAN >60 Normal >=60 [facility] Comment on above: Performed By: #### C BC #### [facility] [address] [address] [address] Jeffry Daniels EGFR-NON AF MEXICAN >60 Normal >=60 [facility] Comment on above: Performed By: #### C BC #### [facility] [address] [address] [address] Jeffry Daniels Globulin (S) [Mass/Vol] 3.8 g/dL Normal [facility] Comment on above: Performed By: #### C BC #### [facility] [address] [address] [address] Jeffry Daniels Glucose [Mass/Vol] 109 mg/dL Critically high 74-106 [facility] Comment on above: Performed By: #### C BC #### [facility] [address] [place] [address] Dr. Jeffry Daniels Potassium [Moles/Vol] 4.3 mmol/L Normal 3.5-5.1 [facility] Comment on above: Performed By: #### C BC #### [facility] [address] [place] [address] Dr. Jeffry Daniels Protein [Mass/Vol] 7.4 g/dL Normal 6.4-8.2 [facility] Comment on above: Performed By: #### C BC #### [facility] [address] [place] [address] Dr. Jeffry Daniels Sodium [Moles/Vol] 138 mmol/L Normal 136-145 [facility] Comment on above: Performed By: #### C BC #### [facility] [address] [place] [address] Dr. Jeffry Daniels Urea nitrogen [Mass/Vol] 22.0 mg/dL Critically high 7.0-18.0 [facility] Comment on above: Performed By: #### C BC #### [facility] [address] [place] [address] Dr. Jeffry Daniels Urea nitrogen/Creatinine [Mass ratio] 28.9 mg/mg Normal [facility] Comment on above: Performed By: #### C BC #### [facility] [address] [address] [address] Jeffry Daniels TSHon 08-26-2022 TSH 1.963 uIU/mL Normal 0.358-3.740 [facility] Comment on above: Performed By: #### C BC #### [facility] [address] [place] [address] Dr. Jeffry Daniels VITAMIN D 25 OHon 08-26-2022 VIT D 25-OH 44.6 ng/mL Normal [facility] Comment on above: Performed By: #### I SUMMER VITAD #### [facility] [address] [address] [address] Jeffry Daniels VIT D RANGES SEE BELOW Normal [facility] Comment on above: Result Comment: <20 ng/mL Vit D deficient 20 - <30 ng/mL Vit D insufficient 30 - 100 ng/mL Vit D sufficient >100 ng/mL Potential Toxicity Performed By: #### I SUMMER VITAD #### [facility] [address] [place] [address] Dr. Jeffry Daniels Coding Summary.on 08-25-2022 Coding Summary. CD:[id number] Gh0bWw+PGhlYWQ+PE1FV UHuT59ewCCqtR0VU1jRB O0CAXTLXGLCOB9NZP4ls EL0KXrqZ1WtdgLe WczdgQPpSM77UVk6OIZ3 zVpoSLteiL2hwOZfV9z3 FaUpYM57sM59EZkpZDDo JiF1WlTsdtkwvSEq W8rhUeCpkUMqWtk+PHRh YmxlIHdpZHRoPScxMDAl NiBfyXiaDD2wUq3uIJLc LWNvbGxhcHNlOiBj k5qtVYVqHOymDP4wfPcw Y2GiaAA3PMHfp3h1If81 dHI+OKPwBEK8xOmuFWns j188ZxUyx6eeLLA4 wGXzUErsFQG3N15kc5Z2 HVNzGYDyPOX6iMA7qL2h vRstwqmoQ6PmuFVtDfU8 QZM4xDKlgW6lcLeu xwfdfX2oKux+X21YEZ8K UUXEEU1SFnt4Q3EfXlie dHI+VO16RFBmXC89qGOy wZHmp0lvfBg3HsUs ZWZmKTZ0hMwlTSqtw9Vc IHLgH82niGCee4J6KNHu zGoetSAcSrNgqYD6fM1k RXediiqxb4qxaevw Viuzq6pffc62pS18Q68h SHadBOTxZSQ2PDIuJXHb pUygej9mpO1sIu9+IDxj r0gvc0mxpMi1LiQy STMatwUfuAeiRWK8u8Dc Fs34T0XykAjyz1KiZqv6 qd87nCOoq6W3cCZ7ISmv DJKghN9cWKmwLjB8 MYLzWsEtnO71qPFgNLja Vb6jdDtwsGqcVI2gFNRf nkqfREOrfZ7pVJQfiNTj sRfaDK3tKBYmzkfl d816LlVuLJA6VENisKZm V8XtdI2kLoSeOIRiNIMu E4VyuUEnWYnnX035UPlv RpC7NYEfgbHwL5Cl GZFxaZgaLvL1z7H6Hw3R c6YtbibzUBI5UNfnLQGl JtLyOdDbWlO1I5KwJnu2 XDNraMtwTK0aT5Fw PNFcoqlczjfzeGU7JRQe ONMogZ44aTLeUQypAa8q o4N4h151JGWiXRYdeC59 Wq5kjVoaRJZewPJH wZ8enzirr4dwjhliXlBo KEQrEIw9IGt0HSMeaScg MgXxENT5CyO0WLR8fJNd eU7weGvpznczbC2u Oyc+L57ojK4gBEF9WQX1 ocpsQNFbehFqGP20NO73 O8UmGaurfRMseUP+PGRp ejTqcMwzXT8vGoHb y8fpp5QpCAylU4RxYKAi EXetNce5VLGrMWV8uEG4 uH2qSQFdFTthl0L4bDC0 Y2XgirLcns3in5in LMJePQxpF15qjZPlt5Z8 LUItkBD2YCZyaLmuDoKp tV55Hwk+YDTfrJiny7Sz Umlzw5gzy8gebUz6 IjMwJSIgdmFsaWduPSJ0 o9VkKh95S59lRZnaBJVe SRJcRVVzORDzfMfdmm9p zS0aMf1+PGNvbCB3 wWC8iS8yNHLsEaO6SFyp D124QhWvdICdRnelf5kb r1usuJm9SgYsGLQxupRf pQfsZDO4m8NyIi98 E86bZKrkDKNoHDDuVZNy MPVrxCjcqg4hmO3pCn4+ CS7oo3zqcm91gU51fOS+ IOXkENP4rKslYPkg ZFCezT8dQSnkYjF6VAXt ZjDdzM76pHAgTUqmMr1i eEviqBocND7sISBflhrw x027YqVlr8xaSFXq vMUfGQrcBNK0H21sb9D6 TPHhDDWdKMP1xXX7xP7z bGlnbjogbGVmdDsgdmVy sHqoRQgoUCmwO996 IHRvcDsnPlBhdGllbnQg HqVaMDa0N3GcEzc5ZOWr kLuiBO4drTCrEBipBp2f vSqyuWzcCF6yEFLz acrpu787PgIol2azCBHf tDTsMBvmRMM7C07bb9G2 GDRfLHIvQPO3oFX7fV4h bGlnbjogbGVmdDsg myIqqFbaBHkyYUcqB994 IHRvcDsnPkJpcnRoIERh tSP1QQ97RK32eIWta1D9 oXE8Y1UhIBFqbogi awksqWF0XZHgOXGpdV61 Lw0bjYuvFq5xQQXqJLW9 ZJRakXPeO1PejR7zCwEe WZEhVGTzJ5BegWIh RKduD042ECtjOxR0WMAp zjQlB7ZbNIYyaZjgKoR7 o5E1Gx4OF9Z1SI61YA35 oNQcq9P4pOX5C2Gl MEIoojerjzyrzXY9TBJl EJSiuZ31Ms2csVfkPo6q GWSvECC5DHIcaRGeT9Rv aH1aWjJkTEPsABYp L5UdsZFvMOxxN151EAfs OuG2CUZstoEpJ9GxLKAe qCpkWwU6k2K5Bg8DCNa0 LW05QK50uBFkn7X7 jJS7K0HhCGIpqmuracgk hSW7GVZzBKLhaB15Mc2f iDqrLx3pSCMmUSI1YTPg lIMuK7QmmM7hJfIy LTAnFHIoJ1FxjDEqQHbb M439KSmhCcQ9OZNupxYl T3DzVKHkmSbdDqZ9m8R7 Gd2MWHOqGO29OGH5 jXJ4CE07FJ22K2LkCppz dGFibGU+PHRhYmxlIHdp ZHRoPScxMDAlJyBzdHls NB7aWw1cWGHlUFDi rSkndDEqMwQlb6klWITz DKrpBR6xfOekM4KnrWC1 DSOhp2m7Rr16F40iB4Fs dXA+KICaqGR5nLJ4 sA4gSiQaFeM9ZJtlN253 ZoSnpPPsMjpst4sfi5kr mTa0LwI5VBSigkXomPyl YWM0x7CqNy40E91v IHdpZHRoPSIxNSUiIHZh qLszgz0qpP1uWw2+PGNv iFF0mFO2lB0rFrVzIoF0 APhjY901TaWhoFIk Rhojw1bjd5jjfXs4XsTz EXDkrjRkdKuyPNK6i3Vy Ov42J7DfbRjkc3QfMwh0 ul03cYVdu5U0tFJ5 J2VrCVUgyhkjxINedKyl HX7cWZHejkjaEZUujY6t ICUwK1u7IxQuHtH3SEaj F6PvgcL7VCNpuLEb AEplQKB2Z69st1E5LXCn OJJrKTX5xOP5zL6rpLmw bjogbGVmdDsgdmVydGlj RJnxMBxjS541CRPs vXocFMAuwJ4fRLZppRWk lZvgSD8yWXXecahvIkES XG7OHZSjLIuPLIPTNWZ0 X8PuDfc0THHibYmw GL2toUWqHMdzSv2mzLnn cPnxOL5mILMsaexhFDOn bW6xUHKqjNAryRqzDE3y LRYyeslzw233GqQm CTG7ASGyyDDbS4XvhI1s MfExYVRzONXlQ0QwcICa BChtK105VSqrBvR8ACAz qnRcF6TaKABxyEdq AkR9z6B4Qz9qPL1tVO0n PWHwDZ05NH33kHOzh2U3 zZS4V2CaHFWxvwgyqorm eXJ5KZMnIDCdpL66 pIMhOCvrFk9cb7A3r229 ZKUyTKLieD46Bx7qdZbd BFSlfFUGoS8igmugu3qx cjogIzAwMDAwMDt0 HDt0DCJhjVeoLpGfNYQ0 OfH9STZ5qPYshG4qcEex pkokfC7oZuo+NjAgWWVh syQ5A4CnHcj0MOOh kSolEJ4soQRxOKnpFj7w qGlhhJnaIV8gZHKfierj POAfwO3lTXQfeBAorZet XQ1zKEYyrjrlx464 XqVlSBJ1RXCmzQMbN7Tm sM1jStNcVWMjSOJuT9Bc sHXqMTwbC947OTjaJbW9 PRQeoaQrQ8VbCKNy dHluWhS8h6N1Hm4LHY4e lLT2S4IiZrm5EJAubSqg IS2bjHGuSSqtCs5ekQwg lYozHT8oRCIjokgw GDZjbO1zNIWsxRKbsRoh QL6rOUGnsaduz188UlBk CCP5TLPnyEHdF4CpuB6b HoElPUJoCXIjN3Uu qJCvPNapM992TMxrQdA0 IIEubiXzN3KbDXCdsXfk KiP4e5H1Ck6TNIbcLV0e ftIfLF5dvmH8I3Jp PjwvdHI+ST74MEKnDT25 bQMsfZSvp0sawMt5LnYx HLYjVFE3fTtrFMjjn0Qf FXTtD19wqVYjt1V5 IGNvbGxhcHNlOyBlbXB0 uA4gNXxcvtpis2qrxvxn Gdnyo9xnce09lF58H26k IHdpZHRoPSIzMCUi IFAljKvvem2doY7mAs3+ QMEiuRX6xKD1gU1xGmKd BwA0SLavF984YjHyoXCi Hghlk6xfr1vaoLx3 IjIwJSIgdmFsaWduPSJ0 j2KcSi70E08dQDhkKPBp PEHmDGRxLUPcrNqrha6x uD2mGs2+LX4to4bb pc20uZ66hQT+PHRkIHN0 qHkuTNoqGWUpkV8hJCtg AkF1VDEhZrRkzF56tSZq NEszGa5djThbxDnq YU6gKGBapbxgs100YkRn k0kdQUFdaAYuFTrvVSV6 F71kf5X1YCSfXQQvSGV9 mJE1sX7trZilawtx bGVmdDsgdmVydGljYWwt DDgdI789QZIrdPglHmQo hDPiC6vihlBFAE7eYfvu dGQ+DZStFTO0yPke CDdyBEMwyT4sQEPmY3l0 WaSjSxB4XSxvG4SsfgA7 LTCxhLQxXMNyfMTSsR7s vweiz4kowvreRrJa VSFzIYb1UHe4TFMhrNkc QgZlAEQ9MaL7VIG1aSEx rD9cvOfdrrxydU2jYmu+ RklOOjwvdGQ+PHRk LWG5jKqyJYdmDYFitI5v OTCvC1v7NxGtBxR5YZzo M7XwxdJ7FVYiaXFsMSWr kHPWhW6bjzccm8dj slluJsEqSZBhTTz2OJp9 BJLqhHmyBbGqEBT7LcD6 BSA9qBEjpD0vbQmqrexf wA9nHwd+TVJOOjwv dGQ+ZGJhPQC0gHebIPpy ZJQxiW8uOLHiD1t0MyKc MeZ2TPdvL7ErphR1WTWk dYDaSFCobMYOuT7c bmrvn1cypfzfMiOwDKVu ZSo7VBw2RFNfyYwbLgWj GQS7RvG6ORB9kNRlkJ1i iYcggopqqO4xEmg+ RXH6ATJ2SM70CS26F2Wi PjwvdGFibGU+PHRhYmxl IHdpZHRoPScxMDAlJyBz hKxbAU5fAm6dJIHc LWNv (more content not included)... Normal [facility] Insurance Correspondence Off iceon 08-24-2022 Insurance Correspondence Office [id number] 8#1.00CD:127 [facility] Office/Clinic Note-Physician on 08-23-2022 Office/Clinic Note-Physician [id number] #1.00CD:127 [facility] Consent for Treatmenton 08-06 Consent for Treatment [id number] 8#1.00CD:127 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 / Confirmed BMI 31.0-31.9,adult / SNOMED CT 607547508 / Confirmed Change in bowel habits / SNOMED CT 768156631 / Confirmed Chronic cluster headache / SNOMED CT 095823127 / Confirmed Chronic gastritis / SNOMED CT 86358900 / Confirmed Chronic leg pain / SNOMED CT 179403889 / Confirmed Colon polyp / SNOMED CT 580472197 / Confirmed Diabetes / SNOMED CT 036615474 / Confirmed FHx: melanoma / SNOMED CT 9148124672 / Confirmed H/O: osteoarthritis / SNOMED CT 847311000 / Confirmed Herpes dermatitis / SNOMED CT 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 / Confirmed History of Helicobacter pylori infection / SNOMED CT 9080616080 / Confirmed Hyperlipemia / SNOMED CT 78657235 / Confirmed Hypertension / SNOMED CT 2963984828 / Confirmed Insomnia / SNOMED CT 562350770 / Confirmed Irregular heartbeat / SNOMED CT 220294927 / Confirmed Laxative abuse / SNOMED CT 674089910 / Confirmed Lumbar disc disease / SNOMED CT 9908252240 / Confirmed Lumbar radiculopathy / SNOMED CT 031416658 / Confirmed Migraines / SNOMED CT 11926227 / Confirmed Osteoporosis / SNOMED CT 086680247 / Confirmed Palpitations / SNOMED CT 687977581 / Confirmed Rectal bleeding / SNOMED CT 148209625 / Confirmed Vitamin D deficiency / SNOMED CT 30481936 / Confirmed Objective Vital Signs 08/22/2022 13:06 [...] bilateral lo (more content not included)... Normal [facility] Comment on above: Result Comment: Elec tronically Signed By: Sumit MURILLO, Eddi Edwards\.br\Date and Time Signed: 08/22/22 13:33 EST Legal Correspondence Officeo n 08-22-2022 Legal Correspondence Office [id number] 1#1.00CD:127 Normal [facility] Office/Clinic Note-Nurseon 0 08-22-2022 Office/Clinic Note-Nurse [id number] 1#1.00CD:127 Normal [facility] Office/Clinic Note-Physician on 08-22-2022 Office/Clinic Note-Physician [id number] 2#1.00CD:127 [facility] Patient Correspondenceon Patient Correspondence [id number] 1#1.00CD:127 Normal [facility] Patient Correspondence [id number] 4#1.00CD:127 Normal [facility] Patient Correspondence [id number] 4#1.00CD:127 Normal [facility] Patient History Officeon Patient History Office [id number].. [id number] 4#1.00CD:127 [facility] Coding Summary.on 08-04-2022 Coding Summary. CD:[id number] Gh0bWw+PGhlYWQ+PE1FV VCuF86skTNelP9JQ7oCZ U8QCPCQCFAHII1XPJ3kg ER7NKjyA5FgqzGv RegutQDaXZ85IYc3LGV4 iJfcKMkyrJ8ejABcZ3q7 EyWhGB65fY08DQdsTYCv MmQ4TjWsudopyOLz R9csBoSzuOFuZsw+PHRh YmxlIHdpZHRoPScxMDAl HyAwzZshLC7xSh6hMWHi LWNvbGxhcHNlOiBj x8ulAFQkFOspKF7kgSjh J0QlmHR4CLRyd9b8Yu72 dHI+BQLuJSK9rEuaIFuw g613SuDlc3dvKRR3 rSEzIAnoMTK2G10tz3R9 PWPoLNIgJGJ5yDN4qZ7t tXmogikrO9DpaLPiXaY5 DPP0cFQgiO6rkLht rwcfjH6fWra+N92LPF2Y AFHQJA7ELjb4C0UeDhix dHI+OX88JIJjFY32zBIw hIFhm1pmwDx7WmYl HAGjMED2kBprRIhth3Sv LUGnL71erMOnm4F4LNFw tBsreFHiBlPckPV5rN9u PKstzrtnm6elslrh Yfffg1tabl46wV74A33u WUldAWZtXFO3WUBkPNVb sVgsag4elO7ySm6+IDxj i8uxq8tctUl8HmVs CALwsmFmgJjzKEM3o0Sm Gf99D2McxGgsg1PfEdp8 dx60mVWjk6Y6jDN8HTsa BVZvaT0rFKloRuG7 YSNwLfDkyZ53bETgEDog Zm0qyHaayRvtZZ5yGNCe wqqmYQNphZ3oVXEeyXHd vOqkMP2sRYQpjcxb i685OdTeCUF2BECooSOm R0SmtC3mAtKcZKAyJZMa N3XdzXWnBGesP351XUnm VuT4BBNsokCwY1Zc KUPdxXlvWwC7a2X0Qq4W c6IhjiidONJ8CLnjXYWs OjCxEfKaKdP3G7BjPwr7 KXEyvWotJS2aS5Ti WNEviyiegibfrTW7TGEu DWDrqF51dRViGDjyNw5o q9O2j015BVItWKPrqM04 Rf3saZpqJVIngNZP xU5ddnllo0jznuhvFtBg VVPwPZu0TPc1WWAwxPic DcJzNXT2GbX0JCA0vSYs jI7ihHdpcpszvC8h Oyc+P74hmX9yBXK8SME4 wdqaJVDqvfSsJS36YU13 G4XcHjzbrHXatXQ+PGRp mzBiaIrzQZ3oBiSi l7nge8YbZSjgO7FjPEMg CMuhVtg1NZUwISD0iVH9 kF3pAOLtTOgdh9M3pUE9 A3BxkrOeeg9am9dd MOPfOZglZ85vpWVkh4W4 GDIcsPK4RXCjcXfkElCg oT30Zrr+BMYyiTpvi3Tk Sxvsa2lxy4qooSd1 IjMwJSIgdmFsaWduPSJ0 u9CkVm21A46xMLmtIIMh EZUlATSqHULqgTbnvo1l pS0iGe4+PGNvbCB3 pIQ9dF4cRSRlCmL1DRlk I809XbHhrVOiSqgjb7ps u0vvxAt4PvOzPOWyjrFk iMwfRAZ4b9XoAn93 S60iYUroCTXmUOIwZSJr JLEicQeurs8pfY4xGo7+ UY7tj5lxlb87yC78aXK+ DJMcAJG1rSogGXzs BHTpaY1sTDtfYrS7HHRv NtBeyE29mCFuLRfzEl6y sCndyGjyLA4qTQIroqph z396KlOzy7trSIKw tWYsGAxxMPM5X25on8L7 HESnBTPbMXE5zAT8gI6w bGlnbjogbGVmdDsgdmVy dWvfHMppCWooN978 IHRvcDsnPlBhdGllbnQg BdEfGCw7G5ByXew5HMEp tShmQP8alCYlCHeoEf3o gNknkAsdVY2zNGEw llvmu922UsUml6gwPLKm iLXlNBwnUTR6D90jv8V1 MJSjNXGdVHR3fEJ4bZ7j bGlnbjogbGVmdDsg hcTbcAgjINyxEDvcB686 IHRvcDsnPkJpcnRoIERh hLV5SY43YI37vTBer8B9 jUR3K1GvGKSwknit efvgjSR4HSWoYYEsnQ46 Pa4lfZliOt3uKUNhJKA6 SFNtaANjR8SncO8iDuJf XASsSDMnL7QudPNc LRcfD315YOigRiO4LERj hfIcI1NxIFCkoIxbSqU2 u3M6Sd4BM1R1UV90QR87 wMXwv5X2kMN3K8Mg WQCfllcqeehleIH2EBOz KULaoS36Pw8wqMmiCd9n TMKnLZT1LCNkqUGoG1Nx nX8dAhOgCZVdYNLr Z2DlcPVhKObzB605EHjw EaB8RBFvgtCbA1RcZYWg lSbuMxC4w6Z0Fl4RAAk1 NI19HC50zVPjr5U8 zCI2X7GzSROitayoepzq tNX8XIPhFASbrW97Sj4v tUqvVe1fZUXtBFK2KVKf iBMhJ4KmwT7cVhUk JGIcBPRjB2YuzCGxCTpu P331URhsTsD7MIHgteRt Y6SoUPJlfUxwPtA2g7K1 Ax4BYUPxVR20WRH4 wAM5IY50CJ71Q6JiXugm dGFibGU+PHRhYmxlIHdp ZHRoPScxMDAlJyBzdHls DP7tRd1eSSPdXDHy dYzuiUIfYgDvn6wdANPl PAfzVK1ykGusO9ErmFA6 CJAvr4e2Pz15O62uZ0Wj dXA+FUBetTE5rAI5 eB1uBtGhYgL4ZTjwE868 DjNulRPdAwfdx8etf1wp pGp7WpY1HXDjklLxsGry ZIX0b4PrSf26X86y IHdpZHRoPSIxNSUiIHZh oOvcpl3xuL2yBw8+PGNv eKG8bFN7yH8fWeQbXcJ0 OExpP528DgPgvDEs Zdniu0jlf4jgdKx0FmRc EIXawpMmzDtcNAX4f3Ib Bd80B3CxxEcqm3CwUkg9 ns69aLZnw3S3bEF3 O0NyXKZbttrhsBNrbTjv LO9zVWBonkjlEFDffU8u NNJfV8a4ZfCwKuU4ADpv Y8RffgC2DGKcpOPm JGstZCT4U98mx1C7RSMa HWOmYTW7cDI3iW3jzTox bjogbGVmdDsgdmVydGlj HAodMMbuC031UHRa kEgfBVZicW9sRFZcrRUv gYqhWI1zDMArihowWmMP ED2PLYUqEIrPROPDNLP8 Y8SjWdh4RTFwoYih MG1fmHDiYHjgXt3ajBfh pGspPC6mUPRtsbtnRSEk hW9oETVolYBatZeaJC1i CFCmuxcgj637EkPz SSJ9SQApwTHxA1HoyP5w GwOeUHSxRBLjS6OtuWCs UUhdR303WZqbBjB7USPb trRlB5SzLWKolHhx PbC5y3F8Jd9gKR8zFJ0o GAOdYB18RA64dHNht9K0 nRT4B0DaGQIpezeoctee gUU2QKWlAOOtnO97 nUJcQKfbVy7rm5H0g481 NPCvCQCesU57Gh7wkQod DECyxBAIiT2zajzua9gm cjogIzAwMDAwMDt0 BEg2YMNukOhiZhUrZJX2 BaA7WWB9kQVedY2rkDsq iqmubC3nZwh+NjAgWWVh vxR0I4PlYox0DUUg qDznBP4kiPEzUYikBi8t xPvcqGgrQY2aYODavhbj VYSugA1tMZBchHQexGxy HN1hKQIxxvrcg718 OiKdYJQ7TBJpuYKwN4Vo jE0vPyJfKQZpRNZgL6Vk xRJxAUevT533ZIykCrQ2 GNEuhnBfA7OfXCCy tJaaIjN8b1F7Ar2OVZ4h iOK7T8InJml7TBYgpXqz JM0owIRyTOsfYr9vfObb jWbjWQ3tZWYtkujy TOBnoH6pIVTpfFZbmLwz YE7tBEEsbemsl148DcPn KJU0DAWyqLKxF2JvaX6r EqYpLSBvYSUyX8Vk uHKsFGmtU351VJcsDwA4 RLYzfdMnM4IvCJJigNis LzW8y8F6Rk5ZVIitQO1c ckFhJD9derU4R4Js PjwvdHI+PQ66NEJoRE88 lSNovAGrb8bmjWg2SsNj MYHhXWR0cBdzBTfhf8Nd BTRpF66jrGFpk2X2 IGNvbGxhcHNlOyBlbXB0 uW9tIDljhabya0nnmcdg Yhlxr8ahxp41nS58B27d IHdpZHRoPSIzMCUi REFupZpotq8geK3cYn4+ YLFerFM1kSZ8hO4tWxZl SiY0NHbzB342LxJhlKTk Pafyz8gkl1pgaFm7 IjIwJSIgdmFsaWduPSJ0 n9OxNp44M84uRWdbFQSc BALwPCVaPPSenIidzf1h eV2bOv0+TS0fa6af ua54oF04jAX+PHRkIHN0 bFluGQynWWTdyN4pYUlb KhB7ZFGcEqWiiK97bRVv ZYojLj9vfExsnDkc CY7zVKHmbetkk661AfFf o4csPCWsaCNeQKnlXES0 E61jl9J8BNLnTNNtIFC8 gHG0nV2zoAvxmzvd bGVmdDsgdmVydGljYWwt VUuiD336KUZgaOzqLzIm wMGcT7wreoZJXT4sWgyk dGQ+PJQrRVC3gPdv MFtuDACdsO8gMECrZ4k0 BpKfZuM6KIekH6EubcD6 MBSbfEDdQXGbrYCJpB6j fgaov7brwnhfExVs UGHrQOn6FDo3MIOcpIvd HnIaLYW1AuH7UGX6xWNf iU3iuYhxsixneI3jDka+ RklOOjwvdGQ+PHRk OIJ0mRwrQFeeLKVseZ9h WVMwK1j9KoUzUkL3TTef P3XxwvM4AGTnwELtRUNp yAAUhL3jnbcpr0si kaumYxVsWOUgWJk4AHk6 XGQwpCkoOjAeBCX3JwX9 BUS3kSVamR9bwZfmgqck xS2qCvg+TVJOOjwv dGQ+ILTfAZA6aYfxRJvb WSAzpJ5fSKRyZ0q5WbQa YxF4FParQ1AptaM1RPJj bDSjWUFllAAWcD7y ivwta7ggpgccCsMtBKOj BWv6VCj4OXIhfPcmJfQl GLX2ZxD2OOD2mLOkdI4u mEbiarzfnU4nKbt+ YDF5HQB3ST66IR28W5Dr PjwvdGFibGU+PHRhYmxl IHdpZHRoPScxMDAlJyBz dUgiWH8fLm8xQWYm LWNv (more content not included)... Normal [facility] Capillary Glucose POCon 07-07 Glucose [Mass/Vol] 103 mg/dL High 55-99 [facility] Comment on above: Performed By: #### 2 [id number] ####[facility] [id number] [place] [address] Consent for Procedure/Surger yon 08-01-2022 Consent for Procedure/Surgery 170..121. [id number] 3#1.00CD:127 Normal [facility] Consent for Treatmenton 07-07 Consent for Treatment [id number] #1.00CD:127 Normal [facility] Discharge Instructionson Discharge Instructions [id number] 8#1.00CD:127 Normal [facility] IntraOperative Documentson 10-02-2021 IntraOperative Documents .[id number] 0#1.00CD:127 Normal [facility] Main OR Intraoperative Recor don 08-01-2022 Main OR Intraoperative Record IntraOp Document Type FTPM Summary Primary Physician: Eddi Arana MD Finalized Date/Time: 08/01/22 15:35:58 Pt. Name: ELISA LEUNG /Sex: 1960 Female Med Rec #: [id number] Physician: Eddi Arana MD Financial #: [id number] Pt. Type: P Room/Bed: / Admit/Disch: 08/01/22 [...] Performed Surgeon - Primary Scrub - Primary Disease Education Specialist - Primary Time In 08/01/22 11:25:00 08/01/22 11:25:00 08/01/22 11:25:00 Time Out 08/01/22 11:31:00 08/01/22 11:31:00 08/01/22 11:31:00 Procedure LUMBAR EPIDURAL STEROID LUMBAR EPIDURAL STEROID LUMBAR EPIDURAL STEROID INJECTION(.) INJECTION(.) INJECTION(.) Comments Luzma-student Last Modified By: Ria Martinez RN 08/01/22 Ria Martinez RN 08/01/22 Ria Martinez RN 08/01/22 15:34:03 15:34:03 15:34:03 Entry 4 Case Attendee Shashi Ambrocio Role Performed Gutter Installer Time In 08/01/22 11:25:00 Time Out 08/01/22 [...] and tissue Entry 1 Skin Integrity Intact, [place], Warm, and Skin Abnormality No Dry Outcomes [...] from signs (more content not included)... Normal [facility] Main OR Preoperative Recordo n 08-01-2022 Main OR Preoperative Record Holding Area Document Type FTPM Summary Primary Physician: Eddi Arana MD Finalized Date/Time: 08/01/22 10:43:25 Pt. Name: ELISEOELISA/Sex: 1960 Female Med Rec #: [id number] Physician: Eddi Arana MD Financial #: [id number] Pt. Type: P Room/Bed: / Admit/Disch: 08/01/22 [...] By: Coco Mendez RN 08/01/22 10:43 Normal [facility] Operative Reporton 2 Operative Report Patient: [...] Mean Arterial Pressure, Monitered 106 mmHg . [facility] Comment on above: Result Comment: Elec tronically Signed By: Sumit MURILLO, Eddi Schneider.br\Date and Time Signed: 08/01/22 11:33 EST Insurance Correspondence Off iceon 07-24-2022 Insurance Correspondence Office [id number] #2.00CD:127 [facility] Patient Correspondenceon Patient Correspondence [id number]# 1.00CD:127 [facility] Coding Summary.on 07-14-2022 Coding Summary. CD:[id number] Gh0bWw+PGhlYWQ+PE1FV TKyB82ptFVlaS3RK1zHH S2QSEHYAYCDUW2OER5vr KK8NAoeA2AzckTb ImasrTQaWT54OKv6GBR4 nLvjMOrnnR1vaQDeN2t5 FkNmQV46qC61UEotXCEn UmR5CeXvipqenMMr C9uqKpDacEJsElf+PHRh YmxlIHdpZHRoPScxMDAl YgOsfColHL3jFy5uRBTp LWNvbGxhcHNlOiBj p8zxCJMsAIdoSJ8fqAik Z9JqiNZ5ZTDeg0u0Ih74 dHI+UHPvJGX5iHtlTYcq f256IrCsv9fdKQE5 nGOzEFirZSX5Q81qb2X5 JNCyLVEpUWH5yDD3nU5m cImbvtagR5QvgSNkEeY5 XFP1jZZcgN5wqGrh gohbpX2qWzv+O02DVW8X ADGBYG3WPfa1X9BpChuq dHI+LL79ZDBzQV30fCIj oFXho4xyuEp6ZbJj TCGwSRW6bIheCGeuo6Zi RNLxS49aeKOnu9B6MNXs vHltfQIeYaVrdIG3sS5g DFnzkwjnr4sycbxe Fsaey4neio15wL64Q59p JIvhBNKyOCO9SGYbPMBu uJkwvg3fbX4oBi4+IDxj q1mdz4bedGr3LuDx FPBmltVjkTigNDA0a8Cz Oz37C5IzxDeld1PcFxs3 cn22nINem4F6oGV8TMci XCCyqT9kHJekPsE4 JZOnZkLfbM10oCOwMBgj Tk9cnQqwtOeoXI1uBMXi duozTZWniX5xNLGovAKt oIuxPG1sENAfchzn s791GjBlGXU0ENReqQAf O7NndT4dKfQvZYFuYDXa L3YijRYwGKonU268WZcl CyG5QPPlnaBwN0Xz CWDpsLjqOdM2s5E3Ja6Z h0DawfivZCO5BJeoIWSj RdQ3EdEgPsA1G8OsGuy5 XPBrgLxgTA2vW5Ha STPnfvqssaxvqLF8ZMLb GVXnnS70oMKfQSyiBf3c p5R2b082QFFvNOSyxS64 Cx7ecSipRADgbKHT mE6mhlgbm3pmdjpuFpUk TDYpPLn7VWs3LOOvaAou AgVrZIP9DfX1PYR2xQVw mO1ucTbnefrmvM5b Oyc+J40hwU0zTOT7XWX1 wurrXUHukfBnPZ04WL52 O0CdToorrCEqnTF+PGRp rkVfnIlzPF9zReJk s8xhi7ByMVghH4OzIJUb VCtdNzj8PFZfSDX1rQP1 zF3kKBTkWIunv2W8hHZ6 V2FwnwParb2an9dm TRAfNSokW58ejNYgd7D2 ESRkiJZ3PPZwiOoyXcGb uE97Dcv+JMEqpNlet7Vp Obqzg2mkg0qawXr2 IjMwJSIgdmFsaWduPSJ0 r5KwGg65T97bNAjyPLGe YMJiZOCmATLphFytfd3d cB8aUq0+PGNvbCB3 jAJ1rN8nGZUfMlX3TVlx G486KdMlcYUrQajcq5lu y8nqmNx6QpEfCGGfybJq vIjkWWY9d3JoWk99 P95vWIxsKAUgNSUjNDWc FMPvkJxtiu8qvN7zLr5+ JW1tz0dksr41lD97ySF+ CKDyCOQ1hXuoNCrx JZDykR9dKHloFtO9NWMn OdRqnF40uGNtDBrjGr0e fGfrgQekJQ0eAINlrjxg n591DcOla6ggBQTk nCCvQPawHNG2J09cf4S0 XQFlTMGaWAW4bLM5jM5x bGlnbjogbGVmdDsgdmVy zDtoXEnkGDkrI806 IHRvcDsnPlBhdGllbnQg BeLnWNb9C8FoKpy1DIXe mEoyDV7kyCDtCUvaAn7f zPdiuLsdAW0pPDVs rbsde551QpLxw9lxRYJn rKWvGIxoOYZ5Y58qc9A9 RCQwVTIyPTS5jTY7xR8s bGlnbjogbGVmdDsg poKxpAwbWHziCGghK718 IHRvcDsnPkJpcnRoIERh eJR8CO43VU15mRYij0P6 eQB9H0SmJMGyrjbm gqkldPG9KCHeMXIifG08 Hl1nsOctAs1qRDJmIDP4 ICGltRKzB5FlqS7iUgGz VIVpBMOxT9WmuPJr AAhpL292IWvmIrN2KBId cwIiG5RpBVAmkNsgMmJ0 o7Q0Qj9BC1T4LB82TS30 fFUql2X8qPT0P3Gy QBBxjxoplbaujIO1MAMt UWYftR68Ht1mjXclEb2l LYAfPIR6ERRffPIoH3Sy xY0jNnXoHCFcYHJl J7VafZPsDHwaE371JMda VrB9CFCxxyHpU7HzLWNy vMciClG4w7Q7We7SFPi0 IU10CM24mFAhg5U7 zOP4R3LoIWCyssontqeb bBG3AYMjZYXpnL73Jm9n uNzgLz6zEJIyIFP0KWUq jRLvP7NiiP6rToJs JUQkBZNoA9FluTJxELts A806RSjiZwU6TNCsffNi D9KqFEIvgPbmRdL3i2D2 Hl4KAYErIM64JIA1 gJF8ND26DZ36Y5MtSyte dGFibGU+PHRhYmxlIHdp ZHRoPScxMDAlJyBzdHls DP2kSv0wAFTdYKHz yNsmoQYsZoDyh1iqMNVa XHruAZ4dsWcaJ8SzdFU3 UYIpx3x8Zp94S80mQ7Ao dXA+FZUblXU5sYP1 fU1xXaEuAdZ7KQvwC043 HeQcfXPcYbsgs4bta5oj iOl4RvU0QLSklhPhyQng UKA5n6FxCp44I51i IHdpZHRoPSIxNSUiIHZh nGtncf1zgN8yRc8+PGNv iHF9lPI1iK2bPcLgDmI7 IPajO923KuMexLRb Fwcqq0kla2ymoNi0XjVy YCSdmqIvaEzxGAW8m3Am Au41O6BmlEgoo7XhSwk5 rc99fXAty8R9zQX9 I5OdQAMkuzxkpVXnvIli RL8sCPYtgmqjPHQcmR8r NHTjC2k1HiBpWtZ6ARxn N4EkxjL3ACPiiJNu ZXtdNUT7U47xt2Y2ZUZx ZJFeBNF3fPT2wX6odUcz bjogbGVmdDsgdmVydGlj ZXfeYQazP990TUJa wWzbMGJbmU6uFDHdlGFt cMzgMJ6rTBGzvkniNxMN ZT8ONJJpGFgGHJVIGSU8 T0KwKdr9IEXmkVqs TY1eeTVxASfyOc3eoEvh nXccQB3iHWYjsxtjVXCh oK8fVGJdwIYukNowKX4k NXAnclbce159HdPe YPQ1KXMhdZSzY9CwmC7c UaXqOPHuENYdS4ApkEJx YMloG324XBbjVzH4KRHi mnNrY7WjCRKnsXoy LkW7v3H0Hn8fRN3kMK7i CPFxKV87TL48rVOus0S1 aBE6D6LuKTVexkuuvanp kIX4IJViYEZxoZ05 pIXyAEfrMn6tg8O7l453 ZFYoTEEroW99Qi9wsOim SHTyeCTCoI4frmdrk1no cjogIzAwMDAwMDt0 VXv7CGJzqDlzRoMfSGZ0 PaV6TBO8fVViuA7ayCel rkmxdR5oKax+NjAgWWVh bkI5Y5HgOaf9NTTn dQwuCY6zvMAsLHdrXn4k aFqkeQsyPQ2hCSXsdsnr RMJpjZ6sUISkjRXjmTat CI6pGVFlqdjny255 TrZxUMM4XDStsEExO2Op tJ9sSdVjTPRtDRBoV5Vm vIQzPWxjF535SIwoGxY5 GPXzzqXcY5ZiCYNw xVmkCyQ7a1H2Qx4JXF8f pBO6C1VbNmc7GTMrsBsm YG0cwBIuLSwyCh9hsOag gQiwTB3nAPPmxllz LVHdhG2mJIBegPTraTmv KW0yYKJyaahvp227OkUn YKH5OVCufNTrW7ExzQ9m ZwXfLLHzOPWcY0Sy dVMkJYxnY386YWshKpC8 YGVmpuFgQ9MqSXFpbOct CgK3t2L1Wl0YQVwuPJ1x rfLqJC4qolB3W6Or PjwvdHI+GZ10FVKsMB68 wMZzqNVrf7qcbJk1FtUx KVEeZFN7xGftDKbhc8Nw LETaJ35xsYQyv6F2 IGNvbGxhcHNlOyBlbXB0 fX3hSJmxsvdcd9rewulm Jikch7aufr69tT53N89g IHdpZHRoPSIzMCUi GGQtkXjktc3vrM1cLt0+ GTRkoKB1nBR0eO6aZcSy DaK3RNwdL486FnZiaUAa Ecvxi6sum2tyxKu6 IjIwJSIgdmFsaWduPSJ0 h5FyTu08I44yAZnrJEXh VLFdEOSwMWOwrYvmyn8l tD3lCl7+RI8nw1lv jr33iO91eAO+PHRkIHN0 bZzqZVqxFMSebE0jFKkn WdX8XSOrKoDlyJ47mRMu GAkqLj7gwMdcgRry MV5fGITsjbyvp721EsNr n2oaXBHepXNzMVauUJK4 F49yn2U6TXHuEVXaDQW3 vTB7mX5kyZgyqpex bGVmdDsgdmVydGljYWwt PBqiC719HGUmkRhiYhJq hXUhG3aeypYTPZ0aYcbj dGQ+UYNqTBL1yRpg KIdmHXQmgL9mFSTdD0g5 NuXmJdG5GWtiP8BayiQ7 XURaqAPgLWFrqPBZaG1w wapgr5nwnulnEhSt NTOoSSo0INe0HWKrbPjz QcEvUVL3ZtS9EWC3iUSa nU1yeSdxjrdhrQ6xItx+ RklOOjwvdGQ+PHRk QCL9sRjjRIjyTQFhoR3a KKHfE8h7WbUkCrP0UDnu K5RtgdC2KIJrtWMaBQHa zJPImO3xjvuqc8me tpcbJjLvGRMtXHq8OUc6 MASbhHrgEzSuBXV2IlI8 BVN9vUHrjL9dzPrysfja gI1kKgn+TVJOOjwv dGQ+IVIpIEY7yFpuTJmm UANgaA6gRAEuO4w4MhUe SnX6CWycP3FgtoD7QZEs sVEqKZHmrSHPsR1w gabdm2unnotbHuPyODSu XDl8GVr8NLNbcXvmElPv PDB6RxO3YZW5uZWtrO2h pArmigkqiA9qSqr+ BQS9PSR5XZ61MU22K9Gv PjwvdGFibGU+PHRhYmxl IHdpZHRoPScxMDAlJyBz iZfpHE8uEq8wZLYs LWNv (more content not included)... 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 BMI 31.0-31.9,adult / SNOMED CT 956598124 / Confirmed Change in bowel habits / SNOMED CT 578425677 / Confirmed Chronic cluster headache / SNOMED CT 365651662 / Confirmed Chronic gastritis / SNOMED CT 47610256 / Confirmed Chronic leg pain / SNOMED CT 897677841 / Confirmed Colon polyp / SNOMED CT 468971119 / Confirmed Diabetes / SNOMED CT 355484698 / Confirmed FHx: melanoma / SNOMED CT 0085955839 / Confirmed H/O: osteoarthritis / SNOMED CT 236626077 / Confirmed Herpes dermatitis / SNOMED CT 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 / Confirmed History of Helicobacter pylori infection / SNOMED CT 2184240736 / Confirmed Hyperlipemia / SNOMED CT 94020126 / Confirmed Hypertension / SNOMED CT 7284076826 / Confirmed Insomnia / SNOMED CT 674396532 / Confirmed Irregular heartbeat / SNOMED CT 979544137 / Confirmed Laxative abuse / SNOMED CT 078156276 / Confirmed Lumbar disc disease / SNOMED CT 0628964689 / Confirmed Lumbar radiculopathy / SNOMED CT 856309012 / Confirmed Migraines / SNOMED CT 74293968 / Confirmed Osteoporosis / SNOMED CT 571129660 / Confirmed Palpitations / SNOMED CT 364715593 / Confirmed Rectal bleeding / SNOMED CT 738741733 / Confirmed Vitamin D deficiency / SNOMED CT 73451964 / Confirmed Objective Vital Signs 07/11/2022 13:57 [...] negative bilaterally. (more content not included)... Normal [facility] Comment on above: Result Comment: Elec tronically Signed By: Sumit MURILLO, Eddi Edwards\.br\Date and Time Signed: 07/11/22 14:43 EST HIPAA Forms Officeon 022 HIPAA Forms Office [id number] 0#1.00CD:127 Normal [facility] Legal Correspondence Officeo n 07-11-2022 Legal Correspondence Office [id number] 7#1.00CD:127 [facility] Legal Correspondence Office [id number] 4#1.00CD:127 Normal [facility] Office/Clinic Note-Physician on 07-11-2022 Office/Clinic Note-Physician [id number] 7#1.00CD:127 Normal [facility] Patient Correspondenceon Patient Correspondence [id number] 4#1.00CD:127 Normal [facility] Patient Correspondence [id number]#1.00CD:127 Normal [facility] Patient Correspondence [id number] 4#1.00CD:127 Normal [facility] Patient Correspondence [id number] 9#1.00CD:127 Normal [facility] Patient Correspondence [id number]#1.00CD:127 Normal [facility] Patient History Officeon Patient History Office [id number] 5#1.00CD:127 Normal [facility] Patient History Office [id number] 5#1.00CD:127 Normal [facility] PAP ACOG PANEL 2: 30 to 65on 07-06-2022 . . Normal [facility] Comment on above: Result Comment: Perf ormed at: WB Performed By: #### C BC #### [facility] [address] [address] [address] Jeffry Daniels Age Gdln ACOG Testing 30-65 Normal [facility] Comment on above: Performed By: #### C BC #### [facility] [id number] Jeffry Daniels DIAGNOSIS: Comment Normal [facility] Comment on above: Result Comment: NEGA TIVE FOR INTRAEPITHELIAL LESION OR MALIGNANCY. Performed at: WB Performed By: #### C BC #### [facility] [id number] Jeffry Daniels HPV Aptima Negative Normal Negative [facility] Comment on above: Result Comment: This nucleic acid amplification test detects fourteen high-risk HPV types (16,18,31,33,35,39,45,51,52,56,58,59,66,68) without differentiation. Performed at: =G Performed By: #### C BC #### [facility] [address] [address] [address] Jeffry Daniels HPV Genotype Reflex Comment Normal [facility] Comment on above: Result Comment: Crit criselda not met, HPV Genotype not performed. Performed at: WB Performed By: #### C BC #### [facility] [address] [place] [address] Dr. Jeffry Daniels Methodology: Comment Normal [facility] Comment on above: Result Comment: This liquid based ThinPrep(R) pap test was screened with the use of an image guided system. Performed at: WB Performed By: #### C BC #### [facility] [address] [place] [address] Dr. Jeffry Daniels Note: Comment Normal [facility] Comment on above: Result Comment: The Pap smear is a screening test designed to aid in the detection of premalignant and malignant conditions of the uterine cervix. It is not a diagnostic procedure and should not be used as the sole means of detecting cervical cancer. Both false-positive and false-negative reports do occur. . Performed at: WB Performed By: #### C BC #### [facility] [address] [place] [address] Dr. Jeffry Daniels Performed by: Comment Normal [facility] Comment on above: Result Comment: Andra Alvarez, Certified Dental Assistant (ASCP) Performed at: WB Performed By: #### C BC #### [facility] [address] [place] [address] Dr. Jeffry Daniels Specimen adequacy: Comment Normal [facility] Comment on above: Result Comment: Sati sfactory for evaluation. No endocervical cells are present. This is consistent with a history of hysterectomy. Performed at: WB Performed By: #### C BC #### [facility] [address] [place], [place] [id number] Dr. Jeffry Daniels MG MAMM SCREEN 3D DECLAN CADon 06-27-2022 MG MAMM SCREEN 3D DECLAN CAD Patient: ELISA LEUNG Exam Date: 06/27/2022 : 1960 Gender:F Ordering : DR EMI FRIEDMAN . Admission #: [id number] Family : YASMINE DAMON . Order #: [id number] CLICK HERE TO VIEW EXAM RADIOLOGY REPORT [...] Treatments None Family Cancers None LOCATION: [facility] BREAST COMPOSITION: Almost entirely fatty. [...] PALPABLE LUMP SHOULD BE BIOPSIED. Dictated by: Latasha Tompkins M.D. on 06/28/2022 at 12:11 Approved by: Latasha Tompkins M.D. on 06/28/2022 at 12:18 Normal [facility] Coding Summary.on 06-26-2022 Coding Summary. CD:[id number] Gh0bWw+PGhlYWQ+PE1FV RXrE90cyBGqyS9WZ3eHI T7JABBLQZYVMU0MES9ru MI1UWvlQ5SwyhPx NsardSJyYR45ZYi4NXV0 cStvMXfluJ9paBBuM1j6 VxNnFR29iQ45PIojDLDx NzW3ZaJvtytrxYMb X5qlLkVrfBXwRzj+PHRh YmxlIHdpZHRoPScxMDAl DkFxwWdnOH7iNz4rXGDo LWNvbGxhcHNlOiBj j7ojBFRpNAueWT8cuSpx S5ScoEQ9YZOmz3p0Yo09 dHI+NNYdFZD4mHpkUQtw l544KiCji4kgWFX8 kOXfWRdvMZT9Q09nj6Z6 VXXaYSIzQKM8hXL5hP7w zTpzblsmF3PpyCAwYiD3 MRC0yVDliG7slWhp pkibtT5bBmv+M89LNR3W QAVBDB6RCpi4G2NuLsvp dHI+EN50GPEyFY90xEMm oFCyf7xxhNn7CzRr SRVaWIH1xBsrBXnsg8Ia STPwE69yzTHtw0P7YEMw wAqrbBOkNaZmvNS3pM4f DEkrgvzky7bjmfsd Kxaqb4yvpg62aX59Y23n VYrlGIFtQFQ9WLYpLVWl jVhopl6ihL2nZn9+IDxj w7nyh0druXh8UzBc SZAwmyQisXduSIY3j4Xl Kd83A1YmcKhdy6WyPpt7 ca48tBKot6I9tPV1RRtz SCYvuS5rWYalTpY2 IUKtDcTfjG82oPUtSGuv Hv1cuOheiNvjLT2qTUBx jwutMQPhjR7qJIDrfTZb yNdlAX0qDMFpvdde d850LpHsMUJ5HBZvtDRf P2PspI6xUpVdTHGjFRCr K9FyiRWkZDnvJ181CFgk BdE5WTNigbEcH1Yh VUVbzUxtIaK5t5I4Oc6I z2MalrksAJM7SRvhIWUy AqSxYiPbSoQ6U3SbDnk4 KJQofLfzBV9iN7Lz MTLcddzzfcirtXH7TBAx GFUehV04uHSoMPocSw5c g7Y4c335JXDjZDWuxZ92 Dp0enTdwAFOzfEVX mC3mefwor3bwbpauGcTc ECShXQw3PLz8SSXcqHdi GoGqQKN4SyD3CZJ3yRZx vQ6toIbypbsesH0l Oyc+V29ozY1wUSL8BQZ0 akttCGZqrmGbFO62WY31 M6PgIfsocEMasLR+PGRp zxFifWmrSL5kJaUe o6ohr7PkNBdbJ0QnIGHj VFisMtt4SKQmHBV5yFA4 lH5cPGGuZEfej8Y4hII7 X7QjpqHjfo9te9tn AAWnLJyrS24crZTxw0M9 MVThmXB8KAUexZnnPlAa xO37Dpt+XJTqjGmfm5Le Zzgpl2qfx6uhgGn3 IjMwJSIgdmFsaWduPSJ0 b4UiNb91L28hXCsrZQHd OEJoRWCuIEUwxNsapw3i jN4lZp9+PGNvbCB3 kYO0dI6zODVdVnJ5FAxy M340JjFksCKiQlwwy5ok p2dlfFx7TgWlZDRxytWb lOedMAB1g5WmWq06 G96tMBnrWSAqKLAjPNDl KLGtvKribu9szU5tIx7+ TV6sl3glgs51mT61wUD+ ZZZmUTE6bPtiKKri APKjyW4fNFtgPjS9KZCt VvDfhL88yTRuSHyfPi9i cQtphVckYR1sWWSkrnfc u992UbJyu7cqVOJz dKSnXBieIBD2M66ib0Y1 ODMoUADpTRB2vAV5cE5y bGlnbjogbGVmdDsgdmVy fUgqCZzpGPgfC059 IHRvcDsnPlBhdGllbnQg IdZvQUd9J3NoTsf6ACJx dBdjEW6xeJXoMWqvQq3b gZgsrXniAU4kBPHp mepqc212CuNjz9mfZGVh hHMqPUygUSD1N20ir1M7 ZDEmJEPpLFZ4vPP5rX4a bGlnbjogbGVmdDsg meUeaHdgKEpvNWmeU339 IHRvcDsnPkJpcnRoIERh sFS3PL39KT87cSNue2A0 sWM0E8BpDGAwyifi odizzUZ6XDNnORTadU60 Qc7ygZqlKc4bAODtYGG4 SPVuuKWdA3QtyF3oNiSd FZBkZQLrP6FtnEUf FPyyG798TFquZnR8MVWc dxOsE3CgUKJvsWdlIbX9 z6I7Gz0IX1O2EB30GF24 wGPxc5L4gIN5I5Ro SKFftesrxomrwSP2MPHk EAUicY91Ey1whNfwEm1m ZCObGFO3FTGuqVWsB0Ih bU1iIxLxVMWvZJPv Y2EqaUTiCYmmC118GGvb HnB7YZUqnbJmG8YzFMZq cQkaAjC9d0I3Ml9HHBf7 FS68PL73wKMor7S2 uMM6Q9ToBTMpqqfcpuye rHP4SAUbJKAdyS23He9y sImkNa6pNIDzLJY5FVEy cBVzU7ObfH5pKlSj QNPzAYUjD8SmxHIwDDpj R607SYclKlT2XEPyyoRr B2YaCPLraDosZkI3l4S6 Fi8PMOItSZ50TDO3 tYP2HP46DV80X1ZbRxuh dGFibGU+PHRhYmxlIHdp ZHRoPScxMDAlJyBzdHls MV1yEs1uLDQhAKFx qFgoaDDwNbUaf2nnGTFd GUtgTB8hpIksF8GbjCD7 BDEui3t6Dx21W42pB7Gi dXA+ERXpsIK4mSY6 vY4rGcNyUmC8LKzyS458 LsZenVVpTmgqi6cil3au fRd7CcE7NUNwadHqoYkz LHO3p8ZlOx86U22n IHdpZHRoPSIxNSUiIHZh kEoqif0hoN8iGh7+PGNv aUQ3aEU6oZ0vIdLcPaA8 ZDkmA325UgYtfHAd Rrzuy2xxw7ifzUo7FzQu LFHwkpOnjHqrNOA7w9Vw Do44L4OubTipu2HnJmd8 jz25yOEeg2Y6aXX1 W2MoBTUnnvosgGHbkBwc PD8yKJViikzfVODyxE9q QTLdQ4j2QyPhPaO1KQpn M6JvalJ3IBXrcUDm YNdzQKD8Y40wa2S1GTRv TNZlDOY8jGH6dV1yrQrx bjogbGVmdDsgdmVydGlj RZaqIIvqE643EBXw bSnbENVfrT5dMUBvsSYu fJizGC2zLSLcpmyyFwLO DH1WIQSmLBxJOFSRAPC5 S3FaKwb5GVXlsZkx VI5ojQIvTOxiKg3wjDdg lBxwFD0gCHXcadryRNAa sV5dNYFepHQoxLotXK5s DZEunnrui477IhZz QPG1GTBrmOMsP5PasU3x AzJaMOWsHNUxE2PmqXFh TBkiD608QTojSaQ3FPSz lxOrE1BxVLBohFsu ZdF7t8M2Nc0lNB9qLE0r VIAnFJ71FU82yLGgy5M2 eFF1J7IfFEKvgnfotyem tTB7JDBdOWUssM69 hTLcTJokHf1bj7Q1o156 TWUqBCLalA81Cj8wvVhr LGYoxKOHaV9xkcvii3mf cjogIzAwMDAwMDt0 XJv8FLUrmXvjKyInXVN2 ErT6XFE2sDBzsC6hpDub yvntuY9jGen+NjAgWWVh liN4T7NxBcu7JILk iXltVY6goGLfPNhbTr3u nUkqePzxXL7jXRImibvq GJRuzT3iAHHwxVTfxBxr YN5xXZQsxiydt736 IlJbABQ0NUNdrSTxO1Gf cJ6bWkVbIDGgZXWtR4Js cBWkELbuU575TPwmExY2 XDWbnwJvE3JwOEBv rGltKlG6h4V3Qs3LAX2g wYP7S2GjWgm6IQPvwXpo OA9zfQLyZUrlRj5kdGki pMmfFN9pYJZqiomq AYLovK0uXQFjpHPhpAcf EH4oTVEhmhdxo573MrKw WRN2AGVxoUHiW0SpaD6p HeOtRLRdARHnO4At lJSqRDswJ386CAipBzA6 VFEczlDlW8ByKMZquLml VjC2z2R1Xu8WrHKkAPOv MN48ZB05VO77H9Zp PjwvdGFibGU+PHRhYmxl IHdpZHRoPScxMDAlJyBz oAixNK2kOp8zYIQnGXRi tXoayUBjQkFvw7tz QSIdXDjdCX0mdYlhL0Ff xPW6BEIgk4f1Tj84E24f X9JakJF+YZIqkIM4wUH5 uM3aMmYuCnS6JEls J921MiPcnYJvCliel8hk s9ferXb1QiWuLUYszaTj hYhkEVJ7d3FjBg89P41m IHdpZHRoPSIyMCUi XXZdpUafdy5ucZ3lBx3+ BJPtlIM7lAH6xK5eRxBk JrA3WWfxX425QoZitDYo GmecP54cH4OgeXE+ JGOoEvm1TFDuaHhwAC7y jQKgNRltEc8zRJL9XmGk ZtJbQIdfP5JbABJhjslz kipwxSX4SHRsZRTb bV49Di6nxZtdIp9qAPMt FUD2NWRltLSwX4CmeL6e PmGlIMOcZQCyU3EanEVw VIrzC924UIyoVkF8 ZLCyppGuD9SqEFKwqOef EyV1a9J7Wt8VuWxolQCd XQ2bOvPnARo3F3DsEpk6 KDHkoZcmSD8lcHOg ITvxVk0bmYcdmDkhMK6p ESMrddqmr318WvGyq5cy ZUIxyOImWUjlTCV4Y56o c3M9RFQiWDAfZWV2 uGT9bH7fqGlfpegkqBBf dDsgdmVydGljYWwtYWxp K055KXCppEnnJaCLCid1 B4FpDqm8OCMzfOen HU1osTLjNKmaSk8hzLwb uAqsQE2tQQTdushpd214 JhKze5vkSCKcxVEaNVec GUD5J41sp7O7TOIs VJAxIKE7nHM3mS6xhVct bjogbGVmdDsgdmVydGlj EMjmDUtlJ495WHXefOoo Vp8ANam1H5QgJow7 EHKtjQxgBP6dbJIgPVwf Vk5bjOtzwGynFY1bSDLd gcvar653AiXog7saVOFb jMHzXJotNAG1Y35k r0Y6VKLuTKWpFXC4pSU7 xN3deLyrhojatUVnmRty rhBwcUahUDbrUCmzU507 IHRvcDsnPlBheWVy OjwvdGQ+QR47tp73A2Pz BdqvDhd1RBUeCAP1aHI1 xD8qSICkKVatl2K8kEC1 D5NrxmIois7eh5il YXBz (more content not included)... [facility] Coding Summary.on 06-25-2022 Coding Summary. CD:[id number]:[id number] Gh0bWw+PGhlYWQ+PE1FV OFeD89uzSPwwF1VQ9hZZ W9QAXKBNCYADT5WTZ6dx WY0VMnwY2VdlgWj UnvyrQMwNZ24UQs2OYG5 oUenNPzvpI3uhLCqF0k7 MwFnKB22cV72LVtpWEAk HpJ2VzGysgmkcXRp K7etPrEnlDAuJss+PHRh YmxlIHdpZHRoPScxMDAl MtVveJdtFN6sHv3mDASm LWNvbGxhcHNlOiBj k7tcPYUoKZleNP9clSjp M6PjbUW8PQSfd3b2Nj42 dHI+MWQuFAW2qFttLHoi b711HvXkl5coNVB2 wRQkUCrmDPZ1F83jq6V1 NNGfMTCfKSZ6xPH4gQ2o xMytqaeaX2PwiITrFsP3 MZM9kHSltC0dzMto irocuW5pFph+S00EHP4X ROCNJV1JAyc3A9DzFlae dHI+ZS07KGHvTL12bDWa bSNxz2rfyHv0MxNi MPAfQRD5cHvaEKbkg5Br IARaX63fkLUbd7X9LEWz zUdgsKXjIoArjLJ8yO9u PNwnwvovd0jeltwm Gzvdq4mkpp78vR56H86i MIwzEMCmMIU7ZJRiNERq mIrclh6ckF5yUe1+IDxj i6soz9cuuSa3XjSn HZSuyfEkzZjlSBG0s1Vf Wh88H9CynNmfp8ViFdr5 cx30dNWdi4R5wMK2PCfs DSNrjI8uVHxtVpK6 FTIgXnZtxG24gXMyRAdx Iz6roYarqTxySC1dNCRx xgmmQUVbkW5kVTVrzBHb yKyfQG9sPDPtihwb z609OdPjIDE9GHQawJXj C3WzfI4hZdVpLJNmNDDz V8UteUHdZElpM644ILne ZdR4WSZtboIcO2Ke YLDqdBnoEgA6k4U1Ig7B z3RoqkfnWAI7AHbeSSOw FrRqZzWrVqB6B2RbSma8 ANKmxMcbYG4gG1Eq EZCfepoquxtruVA0GELl MYDfzC68aUIfAUpyKb2n p9O9c840XZOwZXTvoL64 Bn9syYfjVXCdnHEF kU1cueopy5hztzaxGoZi FFRuVAv2WRl2BNSuvOxs CtNnFGL5IoI4BKA8qZIz fE8qtCrcdotfcH5k Oyc+V07hlW4vJYK7ASK7 rfihLMJgxtUdKJ42HQ74 D8ApHeyupIMvpWI+PGRp lxOrtRszED6iWcUf y5ikl3LgYTarX8HvHGEy NJwnHsx6XALpHXD5wEW0 lS6jXPMpVKlfs0U8iMJ4 H6IylmOvik8uv4mj RLNzVGcyY43mwIZzl0P6 TKBpbQB7DQVemIvmVcPt yQ41Wkq+FHRfnRbou4Gr Yykin9efu9pssNv1 IjMwJSIgdmFsaWduPSJ0 z4ScQc83E75hQSdmSDHa KIGoDKWtLLZklPrqkx5l dT1jQy7+PGNvbCB3 pJT7fP6jCHSnGuQ6MZxj E051BuHbzXYoKyzhe5af s8hdvQk4QeEpHTKrjxYm sRyiDVY3w4ZnOf56 O67fFXbuMNXmQDQkCKGd BKRyoHiuoi4pfU1dSu2+ FZ6oh8gsyf57kN11fGQ+ EHPgSFW9xCrdDDmm ZWIqyS0dIGjqPgH1RLHv VbWrcK29nTExNEebJx1s zEpbgUhzGS8jZETfydgv b331XvVyx8bnBVTs iBYdURjuOQG7F76fn2X7 NBQiORXxZGD6yMF4lT0a bGlnbjogbGVmdDsgdmVy jGjjIFaeLLgyI712 IHRvcDsnPlBhdGllbnQg DzSjQCw1O5KhLkm5QFQa kSpjKO2noNGtLUnuMg6k lAovwWpdHO0nSQJc ctjau176BpTpd2rdSTWl sAWsUDjaEEN9Z04sp0T6 YRYfBGMyYZH4tNJ4mY6m bGlnbjogbGVmdDsg wnPelDpwTMaeLRkaM674 IHRvcDsnPkJpcnRoIERh kLF7YA14WU23gFNkv4Y1 dJB4U0OjBNHidamh ojghcCU0IYMfWWPgaF51 Lp6gfWnnUw6dRCYfETV4 PALjgSMxT7LhsJ0tSbVy HGTpFYHxC1WciRQb KVxcA096TUjoPvR3SCMe epYbE6GeWXXijEubWhV8 i5D0Ed0AA0C6WA74JF21 bYEei5Y2aIW0Y8Cu QMZsetwjlguwjQG8LKLt TJFdfE87Uy2frSmtEo1n KZIdEKP6SWVxmKFwJ6Bj wP2uKtGdLSSpVXMk O5QkrWRsRDnfN479HFzq AhH7QQGgppHqO2UlFRYa bIhlTsW2t8Q9Ex8LQYs6 SJ15HO67eBFcq9K1 zWQ7J4VoEPBbtgwckgit bNZ4JGOvRKEqiS91Lh8w kPzjSu2nQUKuISO1RJMh tVMwG4PlyH9mKkHa XXHzJCZwF8VsfWEeXXgx Q183IBrhIpC0KWQhjxXf O8XaZQWjpXewOdU2u9L9 Od8NCIAuTH49PAW2 rHF5VO75IO60D5RuCdgs dGFibGU+PHRhYmxlIHdp ZHRoPScxMDAlJyBzdHls SI7gEi5xTHDaSLTc qRjmeEHyIyYga3yiGJVt YGjbQU5joSznE0EdxIQ5 EUPvn2e1Yy13V88pY2Kd dXA+NDIevWD7aBY9 gG2zZpQgWdN7YAhsD084 QoPutOHcFumor2aaw1eg nPo8IuA4UFDbtpBjvQgh DDC2x4TdMe68F81x IHdpZHRoPSIxNSUiIHZh dMnauy5smB0iFi6+PGNv aLN8oOO6wN0zDgBoQgX1 TWamJ109PeRrkZSw Jvkpj0hnk8hizDm0CvFt KCMzciDwuVpzUQQ3d3Fz As54T1IxyCftx9DlMgu5 ys85xZVfi0M0zSS6 T1LfDPTvuwxftDHyrTvl ZS0gQOSavhobUBJhdG9o OZPdT1s9YmPpUnT8EAcu U9LciwK8MEVlgXFq VYxaSBU6A27yh1T9LSVq EAAwJNU9oDX0xG2cmUgc bjogbGVmdDsgdmVydGlj IYghZSqxL800RBGh wOdbEVOvgI1pQSNqtYLv oPthGJ4mXQLamjixAoVD US7YBYAwHYiVYGUAZVP6 N8BpLeg3DYRlaXba AL4chDKgBZynFd0esRcu tXsnUJ4qGZUelyhgKZJs hX4zIYWkiCXaxJwoWJ9q OYZsysnwl271FmXs BPE6MFYdpUTxZ4DudO7v VjCzXUUtKFZmM1UapJQj AFmnU664YSxkGdT5ELEn biPkJ6MfWLTlrDtg DlB9b6Y7Pu6wZY5pHV8o BXPiDD29YW71bVMut6P0 pHQ3G7EwNPIswxusnivq hMP3TELdRKDbeO08 hBCkFVlbVz8cb8I5c287 UMIwCZJurL82Xe0fuXwc SCZwiTFFnI3fzbugo0ov cjogIzAwMDAwMDt0 BRl6JHZwhMkjXhYmITJ4 SfW7RLN7iQAseU0tzJkg zrzxfF2kWgs+NjAgWWVh oeL7K5FgDlv1BNFs pRqvOS3phEZuFZrhBp5k cQuclYrpAF6mXHJlraro AFJduV0pDCUifFShmUzl UJ4bLRKuudbre371 MuPdIJL3RZOnpCBzQ5Ze vU1qSaKuTVJfTNTnN7Zf uPFiIMukL570CXiyQxH8 ZQTzanMdI6KxVQSj jNazSrZ4t0F9Js2VLA7l hVO3D7RjHlh2CFHzdYkp XD3ibLXrRHyfVr4rdXfy hLtdLU5lMDAinvde SYBhuK7lQNTtcOXlmQcv WW8lFCLxfaoys920HlWa WWB3TPAooGDeW0JgiV2x EmLnRALuFBSfD7Fk zTOkKTdgI595DImpIcO8 ZAZuozUoR3KjDBOidJrs KfT3x6U6Lg5FdVSaCUUj LD32HV98MV96V2Ri PjwvdGFibGU+PHRhYmxl IHdpZHRoPScxMDAlJyBz sZscVJ1kOo7mRRZwDEXm lNgpqKGhDeMxq0wo LWVmQEquRG7jgGxzK4Fd gRK7NDScv0o7Gz53T44z T0SeaFO+VDRgnOP3xOX2 hI5wPbIkLqJ3JZkm C057DxNdjYLmEuyrl6of b9rcvUn7SoXzCNTshaRy rNzuWOC1i1JpZt35I29u IHdpZHRoPSIyMCUi QSNbtNehgm2rfX1sKx2+ EEGylSP6pFV5eV1kBdIs RgR2BYmhX361TpQjzDXq TsgfO24aV2RcwQR+ CSVoKcw0BWIbtZxfZI8i pQJsRXvgAu1yAOI7CcTv ZjYlVFdzK2TbGCQsclts duaelUW7WDSfZWNu tG76Nk1vmIvrUp5oZIYh OLS3DRIyhGTtH8TcnT0z DpVhATXoMRBvW6LmkURb QNooM194POblUjE3 ECWdjqYnR8MpMAXmqFou TvS8l6H0Rm6XoEeiqNKf BW7iJtOpHKb6D1NuUga3 LVMpuKtwKJ5tbUQq MXczNq8lsCkjwHtyGA7s JCJwkfhvy633LyGvh0kj SSEvqNEnVMzaYJW7K90y e2E5KEMyRVNaXCU6 aOT0cH1tuGkursnmpTFi dDsgdmVydGljYWwtYWxp B621MXYivGqtIaTVUrx2 J9GsOfw7OGRskEci WT2ylJRsPXfuBl6lsDue uQwuJT6jZNPwmaqte790 TxTgk0raBQAmdCBvLFnu IMN0E37vi8H2VMJq LYFoYYT9mVN6mB9ewHnr bjogbGVmdDsgdmVydGlj JPbhBTrrQ869TECzvMtj Lw5CDuq7Q0KoAxc6 TQDazLsnVV1jbJDgKIre Xh0vpBwomRgvGA1aEYBa bvita190EtRdy1emVVBk wUHvAJsuTPH6P27l d5U4NQQaBXMmAYC3mMD4 aG4oeVpykpxcnDZvpCdp axDosBlnDVnxJZiyK570 IHRvcDsnPlBheWVy OjwvdGQ+KL59ns21K8Mq RqetCki2TMLvGMB9zVL1 wL2xNOZpQUnkl2U7wFC3 L3GhysAnlk1tu0ut YXBz (more content not included)... [facility] Consent for Treatmenton 06-06 Consent for Treatment 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 Hypertension / SNOMED CT 8878001427 / Confirmed Anxiety / SNOMED CT 88810608 / Confirmed Lumbar disc disease / SNOMED CT [id number] / Confirmed Lumbar radiculopathy / SNOMED CT 952503588 / Confirmed Chronic gastritis / SNOMED CT 05376199 / Confirmed Migraines / SNOMED CT 99850287 / Confirmed Insomnia / SNOMED CT 204325124 / Confirmed Colon polyp / SNOMED CT 251385305 / Confirmed Chronic leg pain / SNOMED CT 646425993 / Confirmed Laxative abuse / SNOMED CT 939973081 / Confirmed Chronic cluster headache / SNOMED CT 773661877 / Confirmed Vitamin D deficiency / SNOMED CT 47838611 / Confirmed Hyperlipemia / SNOMED CT 41670951 / Confirmed Osteoporosis / SNOMED CT 338888232 / Confirmed 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 Resolved due to patient discharge. Resolved: Impaired skin integrity / SNOMED CT 80038647 Problem added on documentation of skin impairments. Resolved due to patient discharge. Resolved: FH: migraine headache / SNOMED CT 095798007 Resolved: FH: osteoporosis / SNOMED CT 8645491319 Objective Vital Signs 06/20/2022 12:30 EST Peripheral Pulse Rate 57 bpm LOW Respiratory Rate 12 br/min LOW Systolic Blood Pressure 133 mmHg Diastolic Blood Pressure 75 mmHg Mean Art (more content not included)... Normal [facility] Comment on above: Result Comment: Elec tronically Signed By: Sophy Rush PA-C\.br\Date and Time Signed: 06/20/22 12:52 EST\.br\Electronically Co-Signed By: Derick Meza MD\.br\Date and Time Co-Signed: 06/27/22 07:46 EST Office/Clinic Note-Physician on 06-20-2022 Office/Clinic Note-Physician [id number] #1.00CD:127 [facility] Physician Orderon 06-20-2022 Physician Order [id number] #1.00CD:127 [facility] Physician Order [id number] #1.00CD:127 [facility] Physician Order [id number]# 1.00CD:127 [facility] XR Spine Cervical 4 or 5 Vie [...] M.D. Transcribed by: CAITY Technologist: COLT [facility] Coding Summary.on 05-09-2022 Coding Summary. CD:[id number] Gh0bWw+PGhlYWQ+PE1FV ZUdR65yuRAcvW3YP1gHC B9INUKMECVNJQ0GAP6uz EP8IEmuP4OizsYy OxcjrAWkIG26HIn1MED2 uZcoFObsnU1gwERpZ7s2 QtHsHP61pR48CCdoNNPh RdD7GyFuoylhxYYk U0whLuUjsKLyJej+PHRh YmxlIHdpZHRoPScxMDAl XmQheNqeLI1aPj9sLWRr LWNvbGxhcHNlOiBj v8noCHHdBZnmLQ4jyTah C8SnoSB0LJCvp8l0Gp06 dHI+FZYsAAC3gPgnIYxb p379HrUry6jpOAB1 tQFvFPgxHXC6F26mc6B8 BUVeUJKyIJB1oCA1dQ2s sVncbwoqR2LyfPOeOgR1 QJW2wCTjeE5swDje lqnwmW1jRlh+K98TSJ0W XXLFOL4TXey0T3MmPbjd dHI+XD57MLZsOO72lYEc dYHhk2wzqVo3IlFg CHYtIXA5kAdlYEfhu2Gv VGPxQ90ruIWfd5N6BUZe yPppbIYyUyTvoVS8mQ0m KCzsqjgtm7lgfcoa Ygpxn8rrxy60gQ19L39l PYlcOQMdALL8PLKbAPXx iHdbfc0lqE1oPu0+IDxj t5pln8qdwUw8QhAe UCMfekDeqNuiBON3d9Ei Ps99R0BzsXmtf1TtNve6 xg01cGGbw1B9kYT4OIoi KOLfwM1aEPudTkE8 OKJiMkIemB24yWYjINfo Aq2teXbviEkmYM6kNRDr hmzoSQUmwT0aBJTcjXGt uRujBZ2pUFDmremm e053ScSaAJR1JVOgzDXz W8WahB8kFxHfEHQrULPp Y1UoyXNtZRtmQ059NBmr IbW8TQBgtvVrT6Lc USSpcLmaCjG8q7X6Ro9N e7AhunpjOTM7ZEgxMDAd XdA0UrNdIwE8A2ZgGbf9 BRJibUwrOP1aT2Bl DKAjlsaheguijLV1JWPx NJXwbN22gQHrMZsiMe3w i0K7u186PLFpYBFqnC67 Hi1zfVdmLGOnhKFO eA0mcckqo7psqrmyXzFw OIHyJSw7QEb0ONWrmRls YeTzDBQ8DbK5YRG2yAAg nK3ejLwioeaqhR6v Oyc+W41xcR8lFFJ9KIW0 dvryGGCtblXaLZ16VT87 S6UvKzbddKTbwKJ+PGRp mlRenOdqNH9sPqHx n2fte8FvUNxcL0YySQWe CMsbJwf7ZVMxUXT4tMI7 uY4zUYKxVAmdu0H3xGZ4 P4NrjtDwlh7rb0or XOKeFWrqF26nxERad2M9 LQUhwJW4CLNxyBbsHdNu bK10Slo+ETZzjGoug2Gt Ngghk2hrw3hquSo0 IjMwJSIgdmFsaWduPSJ0 u4MyYy50Y62gKPtvYORe YXZzZZQyTHLdwUspwf7z kT9vDv3+PGNvbCB3 xDO6iL5gXKBgGeQ4CZsj Z106TwPnnYXaBuhft1em f9apzGa5IaBxKCPftvOn qMhfBCC6e5TvBi76 E87hIGlfQGImFMOgDZEz YFTenZicpe1ewV4lMg5+ LF9nz0afnj52lT17gVG+ ZVEqHRU9kUpyVUsr YHXvaY3hIGmmLyR3BRQc KvVxaK39cAOyQBdsWb6g hNavyQokIQ1oJAPjzqyj a870FgEav4mtHQTi lCOgFZbrULX8V67gi6F1 RBNqMWDjDQU2lDY5aD8o bGlnbjogbGVmdDsgdmVy xAirFPunUSsuV578 IHRvcDsnPlBhdGllbnQg FmQhWPy3W4McCwk3YTEt hBdpCR0gfNWfDStzSs8i gZfwqEosYV6tEFOu cfedk405JrNya1ofGTMy gNNgTXwhSGX0J81dj0I6 FNQeNKRlKHZ6pHQ8cX4m bGlnbjogbGVmdDsg axOxfTepAGnqJFrmP362 IHRvcDsnPkJpcnRoIERh uQA6LZ98PJ01qIIwp5Z2 oLJ5X5DcPHAzufid vxyiqSA9LTQtWCZxnW69 Zu1xnKwfTp5bDBYtJIF8 PARqgMFtM9AceT1oOtTt NZVsQVUdL6SnjJAs WJynO813HEblFrV9CVXw eqKrU3UdUXUprBqiWaQ9 u4Q4Hs2ZX4K8UF73RL75 xVFpi3X4dPO9K9Cc GBPpiowaxiesySE1VZRp MQZgpJ26Uf1hpLbaCv3a YVQvVCQ2KQGfmZYpA2Nf fB6eQkMjTRGzEKXv I5AcwBXfVEfcY771LPnp IwB5AQDsedDuL0RhOFLi oHzmIoO5n4Q7Jq2PSOh9 IQ01JY38sXTul9O1 oZO0T8TrJAIipocskpjw vQA3NRLrNPFxcP83Ol1i eLfuVc7zPPGaUGL1EKVf rCFjW5KkhM2dXbJn GBDuCJJyJ8AvsABzLJnw Y039KLnpScI5OWMeqoQr R5HtMAQkpSxtUgJ5p4B6 Kz9IDNBgBO29CJM2 cYV7HA52YM84X8JiZpdw dGFibGU+PHRhYmxlIHdp ZHRoPScxMDAlJyBzdHls XP2fFd5xBNXuORNm aTnizIZvByUpb4hlZQEz WRlwSP4vvJtiM0QhcSN6 JAUff2e2Bj64M58vI7Zq dXA+FAOzcKV4qUA7 uK8gWtAtHoK5LKqiE878 AnJbdDDgLbons8bsl7wi eEl4OsM2ZAGkhsRypGcs RBR4n0QhCl16N08v IHdpZHRoPSIxNSUiIHZh gFufys3neX9kZz2+PGNv xDD4gYS9bN9kInWdScG2 BJjgY049YmGdfZSw Amjrm7wyk9nlaZq4OdTy HQOvtuRkoTwfFIA8p2Sv Qu73X1TruMrnb5AkZnm1 vd09iOUcv9O2cOM2 R3HrIZXqpvlyfAZyiXgd UE6jRYNfhobzODFbbH7s RGPyU2g4ZrVhZoD2KIdg M7WmtdE4HYLaoLKp WJhoKOG0L47yr3F9HTAj SGJxUKM2yKG1pQ9qxXah bjogbGVmdDsgdmVydGlj GUheUSvyP339SAKa kJorHFVzuS0iJOCrpOAv pGhxAA8eBWLmkvmfKyNL EM8WJFZvZFrZOOZBITP4 R4PgDaf8JLCjmOlp SK9byBBwGTgiOu8zqEgj yGweZD5nXZMftxyeWWYc hV9pBVUyxGNeqEbbOG3s EBCmihuqb710MjOs PVC5TVQzrANmF6MfcU4s UuRaUFVuLLItB0DhwXJp GEtkW342HQtvEbN9RBAd anQyM9RyHGYqtRxz JhD5m8M3Cz5rHT2mQS7o VGChPM10HR66iMOfj5R5 rGD1J4FtNKBjcgkgrmtn iVZ2IZMzFTOimS25 tRKmMVyqAk5ld6Y5u568 RGGeABDoiT96Mw0rrWwt BDZfhDNNoD3lslyuz0ja cjogIzAwMDAwMDt0 ZAn9HJAlfUwhJiAjWEL2 GmN0JPK0qIUbnI3hpHkb xshgoJ6uLcc+NjAgWWVh edT9Z4TgMxw9FMIa iEqgSB7zeLDkLRbyCw2j hMmavPpwCZ4oBGTklbwv OLSviZ7aSSEpnGNovFwn CY8zCVVjzmodd794 XhHnBJN8KDZobWPnF9Ny nH0ySbToWTBnRDTxV7Nj rSUrUAmeX261LGywPwA1 TTRvxoXuU8OsDXNd qSyfYtA0d9J0Op0SAH5e oYG5F4OfEem0BUPxdStw NV2ymGGcZLjzPk9usUwk oYwfIM9nWZDkjfzl QHClkN9tQOZatRRebIus SH2dHOIdurebj537FnNd UAQ2HGNikMQkG2YztR5z OvAeYYKpJFGoE0Zo gAEiJSgbA947ZFzsNxI7 AJZupiTuW5GwTKOskZbw ZfX5m6H4Nu0KwKHcWHXe FV28TU30IV29T9Jd PjwvdGFibGU+PHRhYmxl IHdpZHRoPScxMDAlJyBz qRhuVY0rAo5rQYUrLDHg tWyqfCPxPvGwm4eh ESZyYZhdYO2xjAmwE1Ek yGF5TZAwi8u3Ee04R79z H0MehTV+SXCnkGX8qDT0 gY6gPtDhHaR2YJdz W500IcBzpBKvEddkp2gk a8vajNz5BkGkVCXrebSh xAieXRX3a7NtAv62R56k IHdpZHRoPSIyMCUi SERjnBbgpd0ibF2aIl4+ CTMqxCF2vZL4sK7hCeZj QcC4SYcbY647IbWwgMDb PvwmB39wR4StdUZ+ EOUiTtr2DQRcbPosDD9l fGFxYOryMf7rJRZ1NeLc OgFqLCjyA9LuMRDkcqsv vlzwjZP8TICjNKKm lV73Om2feDttSq6hIJEh EKH4LUElnHAqL4PrjO2s YiTgFHFkBGGxQ3NnoIVh YZzwA995TTmzJkA6 NRXxkkKjH8AlSJTvpQex WxW8a2G5Pm3MvEzgkGVc CI0uDfHsCDq1U1ZgUlm3 UPZieAlqLI8tgNNc QKwbBt9reCiinQpcKP8r OSJtcduio524CkAnl9lc TNDzdCYjNXwdHXR4D53c g2Y4JBGvVINpFKE0 bOD7gC3fxBtmfcvziBYb dDsgdmVydGljYWwtYWxp J740NXIpzAopHuLDEid4 A6CxPsa9JNMwxPva RF0vlUSmXHmkWv8gzFzs fWkjGT2wVFYcdyndd914 ItYtx0aaJSVcgYDyOLen HGN6B43ns1A4GSSe VQHgYNC4oAL0qX9umVsq bjogbGVmdDsgdmVydGlj WDigTBcxH630MIKhhCtx Hr3SHom5Y4MpMll9 TSSnxWpqTT8weJMvWAng Cs1pxIcvwLwjHQ4hZUIk whqrf319CzPyr4xdRAAl tZQwZKlnAWL2B43p r8X5AXHfESYrYGK3sMP9 wX0vwQbofkpjcHQmlGig nxGnuGckIVlfEFxtU481 IHRvcDsnPlBheWVy OjwvdGQ+ZM43lh22M7Vd JbtmBjb7VLBwPDI9tPT6 sN8jYLXuYCggn4H8wWY0 Y1JqjfFijr4df9qq YXBz (more content not included)... Normal [facility] Consent for Treatmenton 04-07 Consent for Treatment [id number] #1.00CD:127 Normal [facility] MRI Spine Lumbar w/o Contras [...] REPORT Dictated: 05/04/2022 4:03 pm Luis Maya MD. Signed (Electronic Signature): 05/04/2022 4:03 pm Signed by: Luis Maya MD Transcribed by: CAITY Technologist: BARBRA Technical Comments None Normal [facility] RAD - MRI Screening Formon 0 05-04-2022 RAD - MRI Screening Form [id number] #1.00CD:127 Normal [facility] Insurance Correspondence Off iceon 04-27-2022 Insurance Correspondence Office [id number]#2.00CD:127 Normal [facility] Physician Orderon 04-27-2022 Physician Order [id number] #1.00CD:127 Normal [facility] Physician Order [id number]#1.00CD:127 Normal [facility] ECHOCARDIO M/2D COMPLETEon 0 04-20-2022 ECHOCARDIO M/2D COMPLETE Patient: ELISA LEUNG Exam Date: 04/20/2022 : 1960 Gender:F Ordering : DR EMI FRIEDMAN . Admission #: [id number] Family : Order #: [id number] CLICK HERE TO VIEW EXAM ECHOCARDIOGRAM REPORT [...] Reyes M.D. on 04/21/2022 at 19:38 Normal [facility] AORTA SCREENINGon [facility] AORTA SCREENING [...] arteries. 2. No aneurysm. Electronically authenticated by: LATASHA TOMPKINS Date: 2022-04-20 11:04 Normal [facility] Outside Records Officeon Outside Records Office [id number]#1.00CD:127 Normal [facility] Progress Note-Physicianon Progress Note-Physician To whom it may concern: Patient has been evaluated for lower back and leg pain. But also popping and cracking. She has done PT in the past with no relief and she continues to do a HEP 3 x a week without residential relief. She has used OTC meds, anti inflammatory meds and muscle relaxers without relief Due to all of these reasons I am writing to have you reconsider the Lumbar MRI for possible surgical interventions vs referral to pain management for injections, Thank you Sophy Rush PA-C, [place] [facility] Comment on above: Result Comment: Elec tronically Signed By: Sophy Rush PA-C\.br\Date and Time Signed: 04/18/22 13:50 EDT Outside Records Officeon Outside Records Office [id number] 7#1.00CD:127 Normal [facility] Insurance Correspondence Off iceon 04-11-2022 Insurance Correspondence Office [id number] 4#2.00CD:127 [facility] CULTURE URINEon 04-06-2022 CULTURE URINE Isolate [...] F Trimethoprim/Sulfame thoxazole <=20 S F Normal [facility] Comment on above: Performed By: #### U RCX #### [facility] [address] [place] [address] Dr. Jeffry Daniels Coding Summary.on 04-04-2022 Coding Summary. CD:[id number]:[id number] Gh0bWw+PGhlYWQ+PE1FV HKuH58kbKIjrH1JP7nWJ O8RMNGRCJOZHN7HNM7cf FF5BZwjQ6FnysEs UoargSVuZJ47KIh2UWJ2 wTltXCwnjW1otBVkD0x4 BdMfIC66zH51OGglZCQy QjU3QoDemvozeLFo L5voPdHdwONjNuu+PHRh YmxlIHdpZHRoPScxMDAl ZqGyhWptRG3uRf1sXDTi LWNvbGxhcHNlOiBj l7fbXZHiUVkfHX3fnBzt T5WryNR1MZJgt4c5Ox29 dHI+MMBnOKF9dBnrJJdb y115FzPpz9ofAAH8 kOWfEOlfXVX8Z86yd0H2 GXJgDMQxHWK8xUN4rU8g wKqziqyiV8KquRNnCpV4 CQB8xRSifI0diPcy dgvhcA4tAop+V33JGL0F NBEAGB4OVby3K7AuCgtx dHI+SH90IOKkYH98hMEr iGVje0ijiKo2DbIq ABZtIBM6oWkfQGpib9Ww FDImB29eyOSxd3T5TAYt kXzcoCZtMzDilCT9nG1m UTocybuwn9ropykr Lnwmr4ueod23oH22B04l IXwzHLCgSWP3XPEoDXQu sFmsjg4omW2aCa1+IDxj q7bey3nakTo4KbPd EMXghpTkaPwkALD2n0Jg Hj70R0WwwNhmv4SuDwf4 rn04yBRaf8Q4xAR2ZHhi VRMnfH3jPWonKrP6 YUEqDnWlhD96nSKwAUua Aj7dvMjteHdbNX7yKJBr aregZPAalX2jFOLghLHu dFqwNJ6cKCLjirhj z624HeRxITT1UGXwoFZp R5BuyA7uKyGtTJNvHHLt V9JrjYKnIKrwV067OZrw HcR3OOIbfjNdL8Ju QPWwwJgsSsL8v3E9Tv2R l1KfoztaHYT3MGdrLIN0 ZtCxMsGoRiM8R1DxIqo7 ACSwhXjoKW9aS3Wa QGButoxyfkwgwCK6LFAo KSIijM58uMQtQRmxKz6g q9M9s835LCEyGUWsvZ24 Ey4zwOcmKJPudRYT uD1xsdmkv0amhfneZbJy YNYcIMh4KKc0WYCrcNdn AfYiEPP0GxR1OXN4bLCb oN5asYiadtsxyK5y Oyc+X71llT7jDFI7GLW6 lpsgEMPdsrPySQ35UG78 K1DzYecmuHQbwBP+PGRp loBxxDymMG2cWaUl a8azw0YoPRhmW9SpOLNq USajQlb5FTQdSRJ6bNZ8 mB3kQSMrRNwer2E5xFO7 W1RqzkEqvf4sh8jo LTOoHOuqB03pxKOkv2B3 LHSanSA6AFQggNwxZrNv dU86Qqp+COWkvGado8Ti Nvety7kzi5mwrHm0 IjMwJSIgdmFsaWduPSJ0 t4IzWe97G86uROqfPXSs KQKrUYBjPUMcbJgtwp6u sI7jZu4+PGNvbCB3 pFQ2fG9bAJWnRuD7GRbk J806TpHwgCJfDtupe5pv j0chwFd9OvYpLKOooeOp iTzdQEU7z3YvWz52 F32sGLpnSEBxLCFkMYUx RUKveEkjyi8vvO3iAp7+ VT9gt6qesw11mM65tPF+ XBGeXKE3kJsxZWhb QQZokV3fZBntQrL3OIOs ZuIirK80yEFkSAquUf3q nFoqmZlaDZ6dRPJluvqw a944HmXxb0edQXLy uZVuJDqxQTC6Z11er5S2 AULyVLLhUIN3jQR2oX2v bGlnbjogbGVmdDsgdmVy kSqgNItkEKmnW920 IHRvcDsnPlBhdGllbnQg XdLnUQl8U2KcKzg2SAQi lEnmXE4rlBVdLRxcYp7c uWtjhOmjDZ3zDERx jjtyt507XzIbw1zoARLt wKWkQOskBWR7G09pg3K8 UVZhATFkLNI7lYV5lB3n bGlnbjogbGVmdDsg aoUcmDlnFPxqGVxtW842 IHRvcDsnPkJpcnRoIERh jZH0PW02FS56cUKyo6Y3 vAY6T4PiHJVmabht yvmoaAE8LBAeWWLqgX07 Nf2gwIppYv9sSPRrLHV2 FZRupGGiL2RhyU8yBfNo WBSvNZOmB9KwaUQb IBowB267QJoyWuN1ETDz zaHgQ9QaSJSisKzpAhX3 q5B0Ha6CC6E3MB07ZZ47 rUSoh2D6hNK5P8Dh CLUtoihwggbizAT3NEBa LFMafI09Dg2xoXcdXw5u BZNjXKK9NWVepBOgE5Ha nV2iVuHySLTkNYBn F4KuuXXdUTbeN674BMcw PiX0UBQdluJcM6VuLOQg xRqvBrN3a1B5Rk3QFPu5 YB84GJ01iPXok9F6 cTL2D6TxXFPsypwbnblm tMN0WZBvEOPhcS05Vk1c jIggYu1jZUAySDE5NQRy jMHsC7ObuD1aSrKm LKBsUGEaO5NudUDhVUxu Y285MLwrOuS7JSDhszMm I6BnMTPvyUycTgI9j9O0 Hu5XISUfUS78OVU3 jON9JB67CQ04Y9GnOeyw dGFibGU+PHRhYmxlIHdp ZHRoPScxMDAlJyBzdHls YD5fDg2qKYAuXONt hPxruGZuTkFct3qgJEIb OPrxUD6dpRurX1WejAC0 UQUyp7t5Qv97X74fI7Bx dXA+KWOkeQP1vTH9 fY1bAjJmBfC0ZTpiC659 CrBelUCdCbjup8eme0nn iKk7ZkQ8LRIirfFjrTuu THL8z4BjQx21J02q IHdpZHRoPSIxNSUiIHZh bPqecj5qtU4cLl7+PGNv gSW1eGF2kK2hNkVoNtJ5 QOfpS291VhAllTSk Qjuzm3xlo0ttkWr2UkSq WRAyeiDmeUpdQPD9u9Kd Pn48Y7PzpYdbm1EyFcf4 vk91bBUsi6S6cIX2 O1QbOJNwhkokuEFfiZfd EF0qTXCtcnssNAOweD2a RNWwP7m3NzGzQxC3TRew C2NpgiV6XONtqBTt VNvuCYF2L35yi6K3EGLl CJKpOLE8kNL2zY7vxZic bjogbGVmdDsgdmVydGlj OHrqWXvqE977MENa sRvnXCRagF2oMUNpvRPc eUyfJS8kPHZextkzMgHU AO0WAEZcMMmECOZMSMW3 X7HfAiv7FGIlnYkx QB4zfDKnXUnpHk3gyZoy nHxhQC1qFVRqwcobYQRj nO7aSHJbcCKylMwzDU1u XYRsqobpu465FpUd TFG5IWKabAVlN4KifP2b AvFrTGQzXYWmG7CeqTIv SZmlW940BMyhIdX8HMOg deTlC1AmRWAtrOre RnO1a8G0Cy9qHB5mHW3n BMDcDB04ED72kPWfj4B1 dHQ1V4GfNNYsjavsauoz uOJ1XTUgADTgoK87 hSNeXVgwDr0pz6Y7g227 NCThIQCecO65Kf6uvLgz FDRunXLMqN9ymuxhn9wq cjogIzAwMDAwMDt0 WJn4LUGuzJdgLyAlBUY3 StW5OJQ3oNMqmU9gaGzs zzgtdC2hLff+NjAgWWVh gtB5X1KzUyy8NUXu qHegXV3uhPRxZOmnLc1n vCsxiZxfTA9nUVVtouox XUIncZ2jQGOruCUkuHyf VT7uONGuuwzbv547 RiFrNTT4UXZarEFpN2Az fJ9wZmXpVARvUXMyX5Vq mAXcVJipM358BMynUrM8 KBNxkyCnP7WbCYNj fKjyDrB9n9N7Th5MLV9f bLO9Q3MqMsw8COYixUjh GD0shILqXNznQa7jcAew wKewQB6oDSSksanj SKVlnD1aYXFmrASteUiw XK9oCFZqyypai771IyWf MCP8HOIxpJRsZ7LhvL9h LqHtZHJzHHShE9Rn nIBgYQkjF020FQbhSbG8 BJKzfqFsB5ZqOPBrfSip PpC8z7X3Mk9RkVStYLOl RD44EP74IS15Z7Cj PjwvdGFibGU+PHRhYmxl IHdpZHRoPScxMDAlJyBz pBruBA5aZi7dLRGcUFAv aVokfHZoZdNya2ua RQHmIMmqLR4klPzfK3Bx zGH8VDVjc8d4Nb21O27p M5XhuSL+XOWitSC5yGI7 wK7rAuVyHvO2XKdl S065WaQjiXGyRarhd5dx c5ucvNc2DuVzWUEdemBl nEbwUMZ6l5IsXs64C83d IHdpZHRoPSIyMCUi KZPcpOaxmk5kgN1lYj0+ EALywGM5lMV4nN0yUaDk KmA3FCguY821UsQfzAAf DxznG10eZ6MipPN+ WYQmAgg3MCGfgLvnDO4u dNRyYAakFd3qCBP9WlLe PsOpCZsxL7IlAIBottpq yavheEZ3MJPiIMCr eF38Oa1asYtyZa4sSNGq YLO0YLNunHGmP9PzbN5w XdRrYNYdETSkQ7EatFZg SCrbB457RItiTaB2 KKYveeKfU3ZsJIDifWcw CuJ0h9V7Hf0YjSebuXCk NS1mAkLzQEw3R1BkAfr6 DZMjkBkhQU2eeQSl VKysDs3jfFcvbWvgUK4e COBkzolme029LeDrt5ct SJHpbOBnFYjcGVE2W05q m0R5HGCqXKRaAZN7 tJE8tA1bbMmbimgkyIFw dDsgdmVydGljYWwtYWxp R271WACltUkwTmFJYjx0 J5LgOaf6RWRisIek WX5ekPLjVEpjWn4dbAfr qFfqQB5rJTNflpyzu304 OiZxv3vxPGTuwOVrPPat MTW5Z36eo7G3ETCs VSRdNSN6vIF1aB7iwZkl bjogbGVmdDsgdmVydGlj VBnhXZsdD087XOIruRxk Tw7UNbe5Q2BcPta3 PUVcgAygRM9hgBNnWPgo Zr4gcYhkxDriUZ4vHECd wfrzi593LqPfv3auMKTj nFTfOCdhYVQ5S53f z2H8UERbPLEzBAM2nJP0 eJ0prSkdwvqmeRJqgIer wbRfzVykMJzuFPtoO971 IHRvcDsnPlBheWVy OjwvdGQ+MJ11in36X4Pe AyxoEav7XAIjPPQ8lUN3 mM7hKPFcZHlvp2J4gGY9 G6QeydQxts0gl0ql YXBz (more content not included)... Normal [facility] UA RANDOM W/MICROSCOPICon BACTERIA NONE SEEN Normal NONE SEEN [facility] Comment on above: Performed By: #### U AMIC #### [facility] [address] [address] [address] Jfefry Daniels Bilirubin Ql (U) Negative Normal NEGATIVE [facility] Comment on above: Performed By: #### U AMIC #### [facility] [address] [address] [address] Jeffry Daniels CAST NONE SEEN Normal NONE SEEN [facility] Comment on above: Performed By: #### U AMIC #### [facility] [address] [address] [address] Jeffry Daniels Clarity (U) CLEAR Normal CLEAR [facility] Comment on above: Performed By: #### U AMIC #### [facility] [address] [place] [address] Dr. Jeffry Daniels Color (U) YELLOW Normal YELLOW [facility] Comment on above: Performed By: #### U AMIC #### [facility] [address] [address] [address] Jeffry Daniels Crystals LM Nom (Urine sed) NONE SEEN Normal NONE SEEN [facility] Comment on above: Performed By: #### U AMIC #### [facility] [address] [place] [address] Dr. Jeffry Daniels Epithelial cells LM Ql (Urine sed) NONE SEEN Normal NONE SEEN /RARE [facility] Comment on above: Performed By: #### U AMIC #### [facility] [address] [address] [address] Jeffry Daniels Glucose Ql (U) Negative Normal NEGATIVE [facility] Comment on above: Performed By: #### U AMIC #### [facility] [address] [address] [address] Jeffry Daniels Hemoglobin Ql (U) SMALL Abnormal NEGATIVE [facility] Comment on above: Performed By: #### U AMIC #### [facility] [address] [place] [address] Dr. Jeffry Daniels Ketones Ql (U) Negative Normal NEGATIVE [facility] Comment on above: Performed By: #### U AMIC #### [facility] [address] [address] [address] Jeffry Daniels LEUKOCYTES SMALL Abnormal NEGATIVE [facility] Comment on above: Performed By: #### U AMIC #### [facility] [address] [address] [address] Jeffry Daniels MUCOUS NONE SEEN Normal NONE SEEN [facility] Comment on above: Performed By: #### U AMIC #### [facility] [address] [address] [address] Jeffry Daniels Nitrite Ql (U) Positive Abnormal NEGATIVE [facility] Comment on above: Performed By: #### U AMIC #### [facility] [address] [place] [address] Dr. Jeffry Daniels pH (U) 6.0 [pH] Normal 5-9 [facility] Comment on above: Performed By: #### U AMIC #### [facility] [address] [place] [address] Dr. Jeffry Daniels RBC 0-2 Normal 0-2 [facility] Comment on above: Performed By: #### U AMIC #### [facility] [address] [address] [address] Jeffry Daniels SPEC GRAVITY 1.025 Normal 1.005-<=1.02 5 [facility] Comment on above: Performed By: #### U AMIC #### [facility] [address] [place] [address] Dr. Jeffry Daniels UA PROTEIN Negative Normal NEGATIVE/ TRACE [facility] Comment on above: Performed By: #### U AMIC #### [facility] [address] [place] [address] Dr. Jeffry Daniels Urobilinogen Qn (U) 0.2 {Daysi'U}/dL Normal 0.2 - 1. 0 [facility] Comment on above: Performed By: #### U AMIC #### [facility] [address] [place] [address] Dr. Jeffry Daniels WBC 2-5 Abnormal NONE SEEN [facility] Comment on above: Performed By: #### U AMIC #### [facility] [address] [place] [address] Dr. Jeffry Daniels Coding Summary.on 03-31-2022 Coding Summary. CD:[id number] Gh0bWw+PGhlYWQ+PE1FV ONjF50hgDPabH2HV7xJT G9HHFIYVQNNDK9VZC8zx PT0HSfoU5DkixIg FuwteMTqMC21KDx2RRN9 gFzgWZxpxV7kzJPpT4l2 UmGrXU05xW77GZgkBSDu RmA9EeRqgnpgyNQv R1bsZmUmkZJnCek+PHRh YmxlIHdpZHRoPScxMDAl LxSwpZmuSN3uUu2qLHIq LWNvbGxhcHNlOiBj b8qtVFWuNSvrXI2sfXvk X3QhmWJ1HQVne2y4Co64 dHI+GMOmWWL6jHntDOlj b028VqSlw4goSMN6 uMQhLPzmBAD2H36ey3S3 UNCrAFKnRYA5jVJ4hD0y jXfvctriH3UyyWWvMlY7 HKN1vOSihW2lmJjs bdisoE0nXxc+N42SMC3G VOLZBN0OJrc7Z7IwDqzs dHI+IT66XULcEE98yDUt zDEra9qxnNd2PeIj QQHfJJP8aPvdAXdka4Df NYLyM93dpIMal2C1OUZu oGgrdCJvTaCgyNW8wB3g LVlsmfzpe4utekig Xzpqh3tihu16gY19E82x IUfbWFIdXQT1VPMkTVZe sPjkcd4wjZ4lTu9+IDxj l7bih3dtwDv3TpAv NFJwcaJbdEupJVE1q7Jt Ef70R7WsiUvub1HwLcu2 kq12jNQle8G4mCJ1NWby UVOwvD3rHNmyMkO2 NTXoSiKnvT90aWTlRBiv Pu3eoHqblXwtEB9sAAMk ptbiJDOfpO7cBUPbiWBj mXazAN0qVUHcuirn j616NfTcYOC8TPXniXFw M8ToqO2oTlVsYHUfGKTu N4NrpSEbUTfcB536KYui PcB4IVDlteCqB5Rj PWPypPqyLoK4b4Y7Ji1D c5JvveqgWWN3CVzaSJG5 NzY0AxIbDlD8B3JfWsq1 OKRbbIktAZ4wE8Di OKUznmchopamvUX2VACw KJBhzG41jOTxDWonKo5d c5A1a185YXOvCZNguV31 El4kkDnwZUAvbEAN oU2kwfpyr2hqxxswWlJw ENHoVDw3RMf9PASmlKnt DiJrETM3LfW1CKH0iGTv oF9rnHhoiytaxL0q Oyc+K95jmY5xNEJ3TRD4 iuviWYVprbDjEJ38JY85 T5XsYtcigVOhpSE+PGRp orZrrXepQV8pPpDl u3wan4QyAHtkQ2UzWKQh GUjnBsl4IBUcRFM7fWR6 gK0qOSHoCZkny7F4zVI7 Y7MkdrUirq0ws0ps JCEiUDhvU39miIOhn0C2 TDIiaSA8ZBJroXncTwXt fD85Izl+GSZqbYmas2Zu Pjkmm4cge3ycdZv2 IjMwJSIgdmFsaWduPSJ0 v4KuAl56D14qDFawQQKx OIDlTKDlOBMvrCbuit4r kM3tZs5+PGNvbCB3 xIC9aK8bSSYqXjX5IOja P162DvRosJZbSuzmp1qg d0kgzGc5QaMjJJSpkcQa sPjiMLJ5h6PaZq71 M57kQLwoTZAsLFZoXOHh OKZabPnroi2jrE3gZf2+ HK6ll4xykx36qX28yPI+ KZPxQJA7mThrABjh QYSijR8dMTprBuC3TEEe OdYweG27lFNoUSepFh1b rWcnbFlqML9fXFNdeldn a217OhQbv8ghXACj tCMeEXwqYSG1I68ap2L1 LAHhIPTzQZK0dKF5bW6h bGlnbjogbGVmdDsgdmVy qBgwXStqYMyeC307 IHRvcDsnPlBhdGllbnQg ApOuYFj1P9LuNtw8SXLj iElsDM8oqKEqLNiaIu1m fIrhoZhnWH6kWUIq qhvyu885FnZjm8jwSCGu tBTeDEwiDMD2U65ad5C9 LAGoEELzXHR0lIY6rU1m bGlnbjogbGVmdDsg sjSncLutQLlsYElqY599 IHRvcDsnPkJpcnRoIERh tMU3DR24RO56jVXyx7B7 aPP3F9SvRATzfhtt texwgNS3MEOcHKVulZ13 Ud3zuGomPy6iATDqRNK0 RHKwuFGwN0JuaA5hVfFt LIYwWMUmZ9BtoAJc OMhyQ380IXkkNpC1YMTm ydIaI6NfYEIfnGtmSfI7 o3G2Kz3JW3K4AQ07DR68 pBZul7C4zBX8O4Jq IBTsrueklvcwiSW5FSNe QHXhmT47Sj2mlEagFi8x NVCdDXL1LWEdnWRyU4Oz dQ5mRgKbVYEpEMQh R7NzvLAcVNtvW824WQti BnP2TLCqhgQaU7FaNCXw rOrqTtN0q9V9Ay4GFKm7 QP17CW85wUAvk1O1 tGM0X9AwWKMnakxmkkhl yCW3DGEkSDQpbN55Bq2p nNftLd4kLXVbFAU0ZVQw fKDjV0XlbW4sFwFq XRWiNCIaB0CqqOCcLFyw Q984MCepEaA6AGCtccNu W8PoKHLmzZxmBmJ3z4G9 Fs7ATKJpYE63MAK3 sTE3XW15XR73R9XzXkpj dGFibGU+PHRhYmxlIHdp ZHRoPScxMDAlJyBzdHls HL8fHb1hREYzXHZb dFaapBDmStJbg8kwJLHq IZyaRZ2aiSeoB3BvzFR2 WABov1d9No28L51iY7Kk dXA+WEOrqNX8vKI2 cV1zXwGuFyL9BCzuB430 ZiXdyFWnMgooz2kyr7zd nUn9FgX2JJQenfUvoRvo TNY1r9NjJp21T11g IHdpZHRoPSIxNSUiIHZh yUlwfr9qfW4sEe9+PGNv cIF9qSV1lG0eVaJmXvD1 LGroP212BiPzcIQp Buosx5him4mdpSm6ZbXs GDZhdmZvmLznTNQ2l2Rr Uq55I0FgcUuuv9XpGsd1 vo88dOEfb6I9oBU2 E5VmIXTcfvhamMXeuIla LY1lRTVszxvbKUKocG4k HLGyC9v6FgEuQbB3EMdz N7QhpkR8JMInyDQw MGieAQT5R27oh0Q3JZUh MUUvNVC8vHC1zV2tvOgb bjogbGVmdDsgdmVydGlj RBvdHGalD405KTFk rNgnRFMomC1zATJdwNSx iKiyUQ0bYFLmhylkOhPG CJ3KCLHaBYoZTIKAYHS1 I7CvMjq3IIHbfRxv DY8zaRTrGUsaUd2dtKkr yQclFZ0qGXRjutziCITu cT9xGMEduBXjuBfaEO7r VDOlznahn771ReZh PAX0ZDRahZTiK1JjnU6j BqWpVDPfDUHoG7HxgABs MWsiA477IUgpJiF1PWJy ywJyH5XzHDAnaXlb JqB2a7S9Mo5pBZ5qGA6b FVYhNE34OF44iDYbx4I4 fUO2Q5McGNBfwoctispy oPL8NTKcUNUlgX55 uAUqMLfvXm1xq0C9a215 CVOxBGWetL00Xb3dtHif AHSdpEKSmY9ggmxkx1lo cjogIzAwMDAwMDt0 GOo8CBJnsEekOxLqRIE0 OlD0PKI7lGVuwG8wgCel meheqX8pWxj+NjAgWWVh yuF1A6WcPwg2BUSp nEcvVZ3bzIFrAUcqGz4g hRmjuNcwSU4yIFYgmfqb UFDziW3pXJQreZEonPnv UH7eVKPrynlrk072 LgJdPIU8IWIhgWDwP1Fg dA5rZjTyDGQbQSYyR4Yp aXOwQPnuR780KLxwEiO5 RPCjhvBvY3TpNWPg cUsxNbL0d2D7Xj1KOK1d yUU8F5BgRgw6LMTqiFpt RW5cnVYqADzjBx7miXvc jFdyWQ2cMWEytdjt ATMwsQ9tYVDpgRNpdXoy MO8hIOMlsgtqh866YkEq ZDU7BTBihCLcR2RwaZ7c CsRtKUZfMGNfB0Jp xZLzSRhmD750FKfsCaW3 SMLexrFvG2PeQKOstJqb PnJ0c9X1Nq8AqUHxKDBw HX41EO04EV26Z2Oy PjwvdGFibGU+PHRhYmxl IHdpZHRoPScxMDAlJyBz nFxpET0iBl7jXVSuLXVp sJxatHInPuDje2kx QPFsWUvzMU1qyEimB9Rp rSF9XNUdp4x7Kh99U13y V3UnsSP+ZBKkeRL9ePK0 sC2eXgDkQpE5AZpg V058FnXyeOTbKlzei7yu z1agiVr1WeGuXXMqmbMw xQquJYS0m6QvGp47G05y IHdpZHRoPSIyMCUi SPJaxMqzpa2ljD1qKu6+ OQZtpJW7mPS4rF9eAyOp DpR9HOuqQ871PjJstORq ZkkpA71tQ5IwvMZ+ NYFnQpm9VNGlkIyuMV0o cBZhHIfhCz6rIKM8VeZl KpAmPNteN1QkZUApuzkr kqomvLK0HMOjBJBh pT62Bo2imQfhIz0wJJSf IEL9JXJbzTXuW1DxuY8i PiSaPKAaOBKbO4QudOUp VIljP179DEbyApQ4 EPPkzgWdI0FvOUXqbQaj WnR6e0I4Nc2XbEdluMQj WR6zEgKbVCd1Y8NfNhv5 NARobOjqFH6cpTEy QZcvAi0puRiynQbiHS8g IGWswcnel397CeFvn3eh EEQluYNmJWbeQEO1T38r j9T8OSOfHYDaRAM9 cJF8lH8caThpjtayjWXx dDsgdmVydGljYWwtYWxp B931ZBPecQtkUxXLSnk2 X9DjCyi2LWSmjZmc CY5brOObOMywOu5llNrw cPepMF9eISTefkznl350 VjBuv5cvMZShiZLmAPzd AAW5A03df9W5UQQd PXTxDNH2yDI9pQ9jjJvo bjogbGVmdDsgdmVydGlj VYmkXMzqF583CSOnqKti Ii3OOhx7X0XrLxk1 FZVjsVjoOO0dpLJkEYvw Vz2ggQvkiMhhRM6wTZUs hpqif583IlXoh4stTYUt jXRfGRdkQDW8H65v v2N3MJXsXEZrDXA3fVJ1 dO0arAeodqwdxFLgxDcy nmQmxDfeBQadAOdtG605 IHRvcDsnPlBheWVy OjwvdGQ+PG43de76Q8Rf RjvgPqo4GBJwOIQ0tKV5 rD0eRGTnZZenq2N8vKN9 V4PiicCdcy2df4du YXBz (more content not included)... Normal [facility] XR Spine Cervical 2 or 3 [...] Aldo Coburn M.D. Transcribed by: CAITY Technologist: RAFAT Normal [facility] XR Spine Lumbosacral 2 or [...] Aldo Coburn M.D. Transcribed by: CAITY Technologist: [facility] Consent for Treatmenton 03-07 Consent for Treatment [id number] #1.00CD:127 [facility] Consent for Treatment [id number] 40#1.00CD:127 [facility] Consent for Treatment [id number] #1.00CD:127 [facility] Consultation Noteon 03-28-20 Consultation Note Patient: ELISA [...] needs to get it taken care of. [id number] anti-inflammatory medications do not help. 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 Hypertension / SNOMED CT 7612483994 / Confirmed Anxiety / SNOMED CT 77061279 / Confirmed Lumbar disc disease / SNOMED CT 1940540962 / Confirmed Lumbar radiculopathy / SNOMED CT 567689333 / Confirmed Chronic gastritis / SNOMED CT 59574556 / Confirmed Migraines / SNOMED CT 28221063 / Confirmed Insomnia / SNOMED CT 255312887 / Confirmed Colon polyp / SNOMED CT 463626293 / Confirmed Chronic leg pain / SNOMED CT 595797302 / Confirmed Laxative abuse / SNOMED CT 756254199 / Confirmed Chronic cluster headache / SNOMED CT 085358650 / Confirmed Vitamin D deficiency / SNOMED CT 89178656 / Confirmed Hyperlipemia / SNOMED CT 00241928 / Confirmed Osteoporosis / SNOMED CT 479899635 / Confirmed 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 [facility] Comment on above: Result Comment: Elec tronically Signed By: Adri GILL, Sophy\.br\Date and Time Signed: 03/28/22 12:44 EDT\.br\Electronically Co-Signed By: Derrick MURILLO, Derick Levi\.br\Date and Time Co-Signed: 04/04/22 07:48 EDT Office/Clinic Note-Physician on 03-28-2022 Office/Clinic Note-Physician [id number] 1#1.00CD:127 [facility] Physician Orderon 03-28-2022 Physician Order [id number] 1#1.00CD:127 [facility] Physician Order [id number] #1.00CD:127 [facility] Physician Order [id number] 8#1.00CD:127 [facility] Coding Summary.on 12-29-2021 Coding Summary. CD:[id number] Gh0bWw+PGhlYWQ+PE1FV RScT94nxKHkpK0WY4iNR Z8DETGKGOKVRT9XNV7yl FY0ZVgcN5QzlbCc MzvhuIPyGQ06ZUv6NTQ7 oBbqISsrzE0jtCJhS7c7 WkLcIX68bV51PNrjZCAo PsQ6ZgZecyqnpURc Y6ysQeFzxXTdFxb+PHRh YmxlIHdpZHRoPScxMDAl GhCbfYopTN2fJy8mPJWx LWNvbGxhcHNlOiBj k6zrUFToMXtdMT1qzBdw F5ScaBP7OUMwk6u6Zi78 dHI+RGCsWGS6mYhrDPsp l144PrUum2zrABK5 mNLpUOhkVIF8N71mz0L5 DQHbUTMgPRB4hRH5sG0h vQlztnsdL6QtzYWvSgF1 LNN1vZPfwT7xuFlw wynkaI5mRec+P99OYN8Q DDJMEW8URid0P8GxBtkz dHI+ZO13SVNeYA86nTQg zGSae2tvoRf7IiDe ZFPkTEV2oEkdUGsls7Wr WYNaT85qnSHff3G0GSNk bNtrqRRvLlXwcEM8vT3g WDwbblhyc0uwevxa Fwoco5giek09iC16I56y LMqfZEWpYYK3NWLwHFJh hPxlqb3kqX3zZn1+IDxj d4vxc6ujjXd5DsHv DKZeaeIwoCrhROU4q6Qq Wy25Y8CnsLtnv0XdOmq7 qy62zERpw6D4kNN5FXda HLXgdH6fKIakQzK3 BMFlKpJnoY61fUWgHQif Ws0uzBpuwXraZN8cFSMv fkvxGSFqwK9mINQvlJXn cIhsXB5gIIUjwkio t134PrScAHY5VNYppHXz W1LwxN7uKeRxXOEeEIKc L2HdpQGrJCnwV282MRmm ZhX7KMGyumQfR7Ag BFXvwHmmGqV9s3Q6Yv5K y5NhtuyhMRM1HTkzXRG7 ZhQ0PwAwHbO3A2MsFwu7 WFAnoQqwIA9tZ6Nb RRBtwqcxijhxiTQ8QNKo LUPucX12aDZzYKhdHc1i z1X6w568IREtXJUikB23 Qu5hrDhvGQPekWFQ uH0xrxxkj3awbjriIbWu WWGcGTe2OHz2KCFpbDhe JgVmOYM3OiN6DBY8lADu oP1kzFzafbrfmY4n Oyc+F50pcD7rLWF2DIM9 ivfyLVPpypSpPG90HR36 U6GxGpzhmZZykXT+PGRp inDmnTecIQ8qLxBg f2pum6WbHCacH4AoJHSm OPszRpv9UXTnKNU4mZF9 sI5xUVWaODjcu3Y4bWL8 N5KzbnErrk2cc5nx VTHgXQlwV93eeIMvt1B3 UAQroBL1CCVmqEgkQjRj aD09Uqc+DSKbrWxag3Mx Gshyb2fns7tpoUy4 IjMwJSIgdmFsaWduPSJ0 k9XlHj10I10aKRunHFYm FDLwBHPuLQQzoVcdht6m cE2vJn9+PGNvbCB3 nCB3fI6qWRDoUeA8FXkx K978GhTeuYRuSmwko0oc a1idgLm0TpHhGKLstrZz zTewGBN9i3HjKi05 C72qVEsvACTaTMXmBKYx UCYxpDapgt2ytV6eDz5+ CZ7hd5gxfa00tU51vRP+ BGTiXRJ2bOcaCBkm TNXrjF4cPCfsZnD2VFAq UoNglC11gDJmPCwiPg9s oDhoaVmeVN0jIICtmrig j360YyFuk7hwHEDw lXYbBBdzGOL3D41mr7C6 CHMdABKaVSY2bZF4vG5x bGlnbjogbGVmdDsgdmVy bAcnEYalMIerI667 IHRvcDsnPlBhdGllbnQg FvFzZNe1V1MmKev5ILZg bArgZF5pmWCaGGjrDh7j gUeoqLtmIM0pJHKb wvmzw851PzQpx7afUOWw iYLbIDxkYIH7M60tg3I0 JWSrWVTiPQF5sJJ5rD7b bGlnbjogbGVmdDsg kyWkhUxpYHuhOAiuT915 IHRvcDsnPkJpcnRoIERh yOT1JX39CY76sWKlw1S5 lTX2B8KhSOFcprqn lwxpmGM6RMQdOVDsmV42 Ia3wwXtfTr3yHUQmXLN5 GRYcdHDpP9VunQ8kMuRq LYOdADMnP9XzoVKj OVgsZ646OFtvLmD3PBTg nxVoR4SjTOPvnRayFuH1 q3T3Hd9PP4H2KQ94BD54 yMYfd0A2dOA4Z3Yu WFRrwlidkerokFB0EOKe SEXsoU12Ux5nyMpcKd5t HAEwLQB0BIImkUFzT4Lb bN1cEsTcDOCyFXEw A6HiyRSySZcyJ756ALyt JsS2NTUasuRsZ9NwGTGk nNalKxO7l3K9Yf4VDPl0 IS61PZ49dDYpb8M2 dMU7R1PzLSWlgxqkmkdk kZD1YKFgBTTizQ97Ac6s hJthUr0zGHRxYDI8SOGk vOVzY0VwnF5wDcAu PERhDMUaG4JvhJOdPYao L402RUudQtC1WWAhyxCq V3QdFUItvQudJoH8c7L5 Pv2ISASiYF03PCA6 oPQ3BQ75FT66G5XvGilx dGFibGU+PHRhYmxlIHdp ZHRoPScxMDAlJyBzdHls UF7gVa3aPWBiGBBk cSkckSQlExKzv4ciJFXp IDenAY0amBetW1KllEF8 TATds0n4Iq94S01bL4Is dXA+HUBrhPU2dIH6 qX7bAmFiVhV3FAbsQ605 DvBxqEYyFafyi7zej2jp qMy9AyA2DSSpvgRorDhq BFD4f6YpBm57S85i IHdpZHRoPSIxNSUiIHZh eOukgc6isQ6zRt7+PGNv kCL1qRE9qI3uZzCzAsI9 WKnkC695GgAvjJTh Qjlhd2pwz4kukLb5NjBs GCOmpjJetMjlLCN9a6Vz Kc41V4VefAspo3ZgNoh3 qe55oYYfs0M8aKB8 N0AfERAxpnccdOPskQfi HA5eNWRwbrtgAUSrgN0b XWRmJ9t8PcCjNuE5KHzj Q2PuboX6MJKrlIJs LHirNHT6G76ak2K4KHEj YABdDHI2qKY1bV7dtZqe bjogbGVmdDsgdmVydGlj XSbbOEtvR415ENZb oRyoTZOhaK2lRSCktQRr rEqfWG4tFXYxmjyxGkRM WX8SVVSkKStNJGJRHYG9 P1GgJqb9HCXhjWpc NH1hnGRrTIfeWu2zfUoa eJhoNT5wDTJzqutsSPPl vY6gQKDmiWKavSlvWX9k UTOsofcgv638DiLd NIZ9CHYlsNZyU8OayY9v XfZlCLZpBVOxM9LjsJOw KRgiR899QTokLxK5CNLg bxNtZ4TpWUEakEdi OaD8u8F8Qq2wBU6dKT8d TESfZW77GC53aCZir0B7 dNL2M3RzNTTkzfttveoa zQJ5QGRqHUNniF05 uEIaVOprNm5dl4F2r539 ZCLrABXypA88Ny8pgJoc UIJnhZWXkW0smunol1zo cjogIzAwMDAwMDt0 HHr6CQTpgEsbLzNoBMT1 CtB6ABH1bMVymE0lmNus dppwwS2lJxe+NTkgWWVh ncV4I0FvKjk4IYHj gTxkQP8egLZeARzhZt1j sKizuOqrDG8cOPFvqjfq AIMfsX5zUIHflGXutToj OJ2rYVXdwfukr091 EoTeJVI6THEwyOFeV6Xh nZ1qWjFgARWsRURfK5Gx gXZdIOmdH210HBwkIhU4 OUAereXzR1JiLXGu gNvgLtC8p7U0Py2ATR3q uSO5T9GsLue4XMMxvSfc XM7mwJCxFZvaNk3osZvp eQisSS0aHUCkxobe MBWuvI9nHFNtqGMxbKzu WP9iYWXclxuuw916YyZw DMR9IPMquSMrM3FxdP7p ZmDtTHSuUUGuL4Gq rDWbBOzlH804FRssDiZ2 ZRBkqnOmR8XbEJLmnBlc NwB2o5X8Zc9RmVHjFXRy LY38UF60XQ74E8Us PjwvdGFibGU+PHRhYmxl IHdpZHRoPScxMDAlJyBz uWcaGH3aQw0dMDHyGGBh vOufiFRrFcHgr8wl JCVyNPmzKN9srQdcM1Re cZO7JXWsb5r6Lx54R39o N4AwwML+DRWbfQJ8iSB6 uM4aAtJcWaF5XMdk A654KkYruZEbOogxa1ko l3iwnRf0OpAhFJAjrlKl cDmsUUH0l5RiDo26V25x IHdpZHRoPSIyMCUi ZMRxpCpblt2phI1uQm7+ HQOzkSD8aKP0eM5gVqHu LaL1XWnmI854RrVrqKJc NpsuH15qP2GjfSO+ JPGcAfl2IARtmPujBN1i bBZsDGytDh4cRKP1AaBk ToHpMJuaW9QnSKXbldmf qydgmEL6VADdRQZo kA36Ak0swFovAm2xREMe OAH4IWKgjJXrF4SeaL3v RuFoHEZxKVGjZ0ZdkBKb SUgtK295BTmkEqM0 VCQwjfVmD3UzNNAsxTim AyN8x5S1Ea6WeEezzHTt IX5aAzZyBVt6H9XwAps7 RQTbnCcyHW0hcHWs KJssTd2ziTfliOtiFB5h XWErlcozl022QdEvi5mc OJDkxJGeYPbiNVP9O97z s3E4NMUmZOQxNIO5 tVP4nD3zaMinuehspFGu dDsgdmVydGljYWwtYWxp D584VSTtzTedWhDINqm7 U8PvZjy3APNitLgx WQ8okQJgPGehMu8ptGqi iRosOF1iHOVjjclol600 FhDry6rkMWQmzQHgYCfd DUH2G34kx7H2FVNn WCEpIZC3eDB3rU3urVgv bjogbGVmdDsgdmVydGlj NBfdUAmeP166FQOdlRxe Wx7ZCaq8M1EoKmy7 LZAduZjmYU6tcLAgVJlz Rx2wzThgwYnfJF0zZFYb hjmtc356HpDfx1oeHBGi vWLcUGewWMY4R84s v7D8JQLaNJYzWLF9rZK3 iL4wkMfjhykfjVXogDxw knYrzJaaYPzkCSmxD849 IHRvcDsnPlBheWVy OjwvdGQ+US86gt78T7Sg HpvhCwz6OPFdCXN1mYC4 jF4kJFZyMOith4O9aCS0 K3JspnGykf1cv3gf YXBz (more content not included)... Normal [facility] Coding Summary.on 12-23-2021 Coding Summary. CD:[id number] Gh0bWw+PGhlYWQ+PE1FV SHhT43tyRGxiE5VC5sYA Z4HWAQAPRHLFT7FJT1va LU7MVocA6BhbqOg QsjhpQLdQT21NUr8EPJ5 hLxnCUmbeV8oeAXcY3f9 LrFmBV96fO98UKysSDEz KgK2MiGmllwzkGGu G6vgWbWdyMWuLgy+PHRh YmxlIHdpZHRoPScxMDAl UdMqlMdeJU1yDr9oNOBc LWNvbGxhcHNlOiBj r1vwXFLqPXnoCT2mkFja K3NsbSW2ACIoy6e0Cj48 dHI+RKIiQKR7kSqrRTbr m021VlGah5znPME7 pGYxWYvgLPW2Y18bs7J3 GWLlCWMoSHA2qUO5kB3g tWexnehhO7JfvSSgSzL6 EZS4yHOcbP1ccXgk goqjiO5vXtl+V07LXI5T YLYMJZ7WOey4U0ZgSbim dHI+NQ02TEBxYC19iIDv rPDoh0hanBd5LeMs ZLGtZFK4pRfbOSvwf5Yq YCZqH30hfOUxt3P8YUWt qRnfyTUfJtVkxUC1sO6v CZtkwsqfp9corqhb Abywb5umnr43eP41P73t TUfbYYFcRFA2HFNoODQt jIbkab5hbK6sIc7+IDxj y8nje0pzaLu7BmIu AKEpzqLnzAceBIW1v2Zq Aa92C4UfeWcqj8CdNoj4 im15oNGsq4M7zVO7HDik SEGgnL4aQIxmEtV2 MIDmXlMsbY89bJVzJOdw Gv4ciIohwHbkUD9dBGEx ivvnZILbsR9xURSeyYMz rQoyFA5oEUSfmfbd c304GdZvWEA6LAIzcZVi V1JznO3tFfQzMIOsSZXm L2HtpUZaJYjzD865LPvm EtE1ZJRceuCaO2Ds TPMvwTouPsT5w5X4Ol2M h8IczugkGGZ3EOhfCHJ7 MtZoKmZeJdT7Z9QoUgj8 PHDzqAkhQB8pI3Nx DCFumvvkshpbsQP6RKSp LKWmxB23sFRkULjjYx7t x9O4h308HLOzRSQlhR68 Li6sxUvuQAHcvNVN tL1aomssy3qszbriOaMa DQBdZOf8QIf0SDUeeUam EgScAIL8ShQ6IXI9rYDj iO9twLlogufzyV4g Oyc+B40jaB8wALF0JHK9 lsoaJBDtuwUwSL83EK75 B3RuYkeshSDjwYK+PGRp laVjsUvrZO7vSlWn p6vpc8YfLWnvI8QvMUUh UIsxUgb5MKXuKSH8lAR5 lT2dRCWfRBpzf6E9mLY8 X7RsjmWmlz5ck6ir XKIuYVibG35ycDKdz2L8 PSZtjAA5SHUagFmdNiRr pR50Jzw+TSThmTnwd9Zs Tqbdc8smp0kzvPu8 IjMwJSIgdmFsaWduPSJ0 a7OlHe21H88eEFgqGANu ZKGrPTFsGBRvgBgtja2i pA7cPl7+PGNvbCB3 jYM2iH5kNFJhBjM0QWuz N076QdManRTcKzycd8fd p3hwhHn3QpZlKYXyabLk cYjzGZN1o1WmKp17 Z01zFYlsAFXuGCBvLVEo NMToyQehah1dhE4kQg9+ IC2ua8roht96nG93dJM+ ULUdETA9nCvrYRah MEEoeT7bKUskFlJ2GPYm QxOnpB96vAVzKLxbZd1c hIzahWtrKB3rEPWbcxpy a042AvXin0ovCXLc vVLyRUhxUYN4W24lb1U3 HBFsQGBlMIR0aRD2oR7y bGlnbjogbGVmdDsgdmVy sHzcPGdkSAduS056 IHRvcDsnPlBhdGllbnQg ZrAgCBu1L4XiFce6GYBt dJexGY9duMNiYZjeJc7v cJxwpYxfRY1fUHRq baoqe244XaKue9ebETKe sGHoCXfmFDJ3T82gi8P3 PFWbXQTbZJU8wNX1iL8o bGlnbjogbGVmdDsg aoNaeLikSVgkRWprD222 IHRvcDsnPkJpcnRoIERh pTR7JP45VA05gXFyh5Y1 fSG3X4PvHXWjitwt oprbvPS6IUVbWZIaiF38 St9kjVplZm7lCZAtRHH3 HVVxsCBlX7NfhI4iRwCe FIZtZRTbK8DqfCVr IDgaJ078WCxkPuW0AQAj glXaT3YsNNFgiNalZcL4 i8V2Si5GV9U3KO13OH32 qDRhc8S2vVQ9C3Ae GPCioerparywuZQ3EHWx ETVpoX74Rc1vbWliXh3p URIwGZM1IFZekNIhQ4Ol fW7mUvYpJSNoYMRq F1FkxUJdSYbbO394KCrq BcG7YKDijqOxE5DvQRQk xQprAjX4u9M8Ry5BBRb4 ER52EB16gRYcd7W6 fJX5A2RjUVRtrlsafnpj aLB7FWZaULRplU46Fz2g rOtnBy8aTHBeSLE9LCHe lLNsL9WycI0qXxDa CDRlKPTwJ9OziNCkHOal O027UEqbJrA1RCMiylNn I5TdSEYbmWfvTzE0a8E2 Gk2RRQWvUW40EDN0 xCM9RI12BW31D9CmHtkb dGFibGU+PHRhYmxlIHdp ZHRoPScxMDAlJyBzdHls LM1aMv1qMIWpYZUm xMqaeIUlCxPqf5hcBOWr CDjwEQ4ytSyxV1AtfDX7 AAYls6h9Db06V05mA9Ew dXA+XENbrRB5yGL6 qF8bNsJwGyS9PLphU696 DyQiuOFkMwcgi9mml9vb fNd5ZcY6SBRqpyWebBsl ACR6w1EyNb42E91z IHdpZHRoPSIxNSUiIHZh zSxazy1shX5tUm5+PGNv vYQ5vBY8iA2nDfQcPsA4 YNzyM615ZaRhhADq Geufa1akw2ronGp9LxXx FBUexbFybPnxPIV5p1Sn Hh27X8MlvZogk0DjNjf3 hi58dLXyd3E8tRX6 Y7ZaZEOmagsrpLElyUnc HY5lBYAhadrjEDEshT3r KUGzT4z9BmLnAwS9TSjv G5SlslP5NAAibPAb RXxqHVA5O35cj2D9TZWg GLDfQOE2zNA3jI0xcShy bjogbGVmdDsgdmVydGlj ZYblTZflR036VZTd fNpbPGUgcO7jWJOqoQDw aXbnZD6kOUMwfnmbWxPC VM0JFWYtFIrPHYOPJOL7 S8SiFxr3XNFnxXpk IP6gyKOkZOikYp6upXde hByxON8hDOHkoizzTJWy hB1vOMCeuNQvaIffUD6l OCUpozmge935TjVr PAV3KORgfSIbU8RgfK8m JnOhEEJrLYLvE3LijBYp ZOqvE666MFhmYsN2DUWl yyRaO6XuFRRgoUmc WcF1z3P2Ja5iQC3yLR7a ISMnPA26JF12hDOvn2A7 vCG6Z0WySSTwqlvdmtfk lXU6DEArEFIceJ29 pCCsQAlgSq6bd7U9b386 JQNzTUMkvV45Hq1jpLaa NRHtzRTOiM5shrrhd3nq cjogIzAwMDAwMDt0 QTh9TQOubOxkTfUhGTL0 DzN3XUH0lNEqiL0zwXvs istgvJ3wNab+NTkgWWVh baO4U9TvFsl6EBHb nPelBJ4ujXZuBFsjMq9v iHomuFaeUF8aJVDrotlb ZUOrsX1xBPBucYTknWao WM4hJDGlhdykl052 MaLnXTB0BAAnwTAuL0Mx nL9nFdUjWUQwOCZaK6Kc zBXsQQzcE820SZwsMgL2 DYAtmoHqI4LdDUZs tDteNkU3f2S9Ub2TWB0s kHE6R3ZwYgu8UHGyqQkg IU9roSEyQFcvNm1vbPcy wHvgKC9qHFXysvmj ETFwlM5oMHBksWPbtQmn JD0yWJGysdlvn106PlJg OJB8QZRzjHZoU2KrmI1o JiEaHBAiFIImM3Kh zFAmUFbgT572AOggUmC3 CQHscrLvU8JoUHImiRcg RmO2z8G3Di0UlYFtCHEw QQ00LP88JE22G5Zv PjwvdGFibGU+PHRhYmxl IHdpZHRoPScxMDAlJyBz vDijDT6iPx4pJXBwZWVt tOtzcXIlOpFzz4cv TABpPKtvDX0eoZfkI7Mw zGK4PWBbh4j7Cn72U60e V8LvgNB+KRIgpMK1qGP5 zV1tFdBnJyD5TDyn A642YxAesDQoHywxn0px q0zetEd6KePeQGVuouRq tYivYRM2m3PsEm02J77w IHdpZHRoPSIyMCUi PENnoUhptl3gvU0sVj7+ EQOquYU5jOR0hM7oGuUg StY3KVzaQ065SkYgrTUs EnfcZ80dZ2XxvDU+ SAPqRxe5WIOngCuaBU6h lTHbYNnjKc5cEMO8UvLe CaKbPQamA1XbYAPktibf vcppaZF4CTQeLKNj eA33Qa6swZuzLc7kUULv SKH9DDZxnNZgS6BtmM0e NbJhOUIwMHJrE2ClwPGd UKtxV109FGbxDfN2 DYMbpwApJ9CgPAYbhMzq AgH0m6E3Bl4FhTplbYMv TG1xIxBdNKi7W5IjZyd3 TCCtcEbvIH1zxNDm SFcwUp0czGldjLayGE3n FCPkblmvz499HoXdx0rh ABPyyEHtQUwsLPO1A20g x8I9GFDjKZWlKJM5 pCD0sJ0ufSzhcdnurNMy dDsgdmVydGljYWwtYWxp C218VQPywHxrRpSFGlb6 T8DdHbv2IUSedLgg FG2dmWJsTMggYy9rcGbq tDcqZG3nAVIjgndeq669 OoJcl3phYOVlmSEnBZea OQG6U38eq8M3ZORd YSEcLUF1qGL4zY4yjIgl bjogbGVmdDsgdmVydGlj TBtqMSrqI838QZGzjXvz Yb4SQca2R5TeAcq4 HQVpnFhaXA7bzOEjZRls Td2gdNkswQjkNJ9aDLIg yimli462VtEms6iiDFHq tCYtYHuhZFG4I85s p9O0SESkSJVmRCJ4lNK1 tI9lkNtxbqjviJVddYul zsDorLavENgdONrvZ880 IHRvcDsnPlBheWVy OjwvdGQ+NA04vx69J0Ch LdgoJgs9XZUhGOJ8pNP1 iP2vGYYkTHihx7Z5hJK0 J0FoenUygf2dv9pq YXBz (more content not included)... [facility] XR Spine Cervical 2 or 3 [...] Transcribed by: CAITY Technologist: MARY BETH [facility] Consent for Treatmenton 12-04 Consent for Treatment [id number] 6#1.00CD:127 [facility] Consent for Treatment [id number] #1.00CD:127 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 / Confirmed Hypertension / SNOMED CT 7136041807 / Confirmed Anxiety / SNOMED CT 70898428 / Confirmed Lumbar disc disease / SNOMED CT 5213447881 / Confirmed Lumbar radiculopathy / SNOMED CT 540062903 / Confirmed Chronic gastritis / SNOMED CT 17468727 / Confirmed Migraines / SNOMED CT 70276333 / Confirmed Insomnia / SNOMED CT 186561922 / Confirmed Colon polyp / SNOMED CT 746510274 / Confirmed Chronic leg pain / SNOMED CT 188499787 / Confirmed Laxative abuse / SNOMED CT 642417065 / Confirmed Chronic cluster headache / SNOMED CT 503406725 / Confirmed Vitamin D deficiency / SNOMED CT 13607864 / Confirmed Hyperlipemia / SNOMED CT 90116179 / Confirmed Osteoporosis / SNOMED CT 429871100 / Confirmed 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 [facility] Comment on above: Result Comment: Elec tronically Signed By: Sophy Rush PA-C\.br\Date and Time Signed: 12/20/21 12:48 EDT\.br\Electronically Co-Signed By: Derick Meza MD\.br\Date and Time Co-Signed: 12/27/21 07:59 EDT Office/Clinic Note-Physician on 12-20-2021 Office/Clinic Note-Physician [id number] 8#1.00CD:127 [facility] Orders Officeon 12-20-2021 Orders Office [id number] 8#1.00CD:127 [facility] Physician Orderon 12-20-2021 Physician Order [id number] #1.00CD:127 [facility] Coding Summary.on 11-09-2021 Coding Summary. CD:[id number] Gh0bWw+PGhlYWQ+PE1FV OKbL93dhUJfvV3GB3oGY X9FMLYAOZWIOH2UWM7dq GT6YNenA0AlfaOu PigndQZeJG72GEd0JOA2 xOrmTTruiJ6vpBPvF5q9 OyVcWN79mZ58EEnjUPIy FeF7JdUmpvchdHVz Q5nzUpMjlXJmSph+PHRh YmxlIHdpZHRoPScxMDAl SrDtnVdlXS8sSq2oMDJu LWNvbGxhcHNlOiBj o8zgDNOgNOybQF7iwRdt Z7GczLU3BHGif8q7Tk25 dHI+RGZzSFJ0wTqsGAug y366JtZju8ldSJR5 mZPoOTcoJOV0H18de6N6 IURcHODaPZL1gFX2aR5e iFceqjpzR4TnuPStCoY2 PLF5uUSkjD5qwKzb mimidY4wEye+C34MRC8X RKMCJM5TIav6O6FeRdmt dHI+MZ01QCHzUW40vASm eYOqm2fbhLt7NnJb UGKmXBC5wGcaKHwvu4Gr PTGeU80huLRzo0X9CGUy vMnirGBgTmCclPE3hT3p KGgcisqyg3litumf Apvbd4goxr80zY38V80s WTklLOQoFLN8GDCcIWTs qWkcqv3vtS0eYi7+IDxj y9anc3wnxQl8UlJh EUVfbiOiaDswAES2u8Cj Ly81V2CacEjqs9BlKsq4 ps90sRFgb7U0rIB6KDyh JZZseE4fSIdlBmZ9 CZFvWcGzlO55gAAgPThj Jo4apYjemQyiBY9lLHMl qenaFAOnbG4dGCZkwZNq sVfkHN6gWFKnmnlv l692RlEgZOV9JTFadANl K5ZqfP4zTvJlRERiCPHb E8ZhdEVqAEfeO693GQsy VuK9DAFjidQzX6Rx DGUtuGuiZpB2j3S7Sl6B z9XxqhjzUHE6SNyuRTK2 MyV0CiJyXkE5J4LeFhx0 JUXchIyeMA2eP3Js TLFlbbcpistafKS5ESAh MRNmqY69zERvMYyoXk5p b6G8t430MKYbBDIrdW52 Kb9ioGdmNIEzoQJM tX9jeihia0zmavniBcLt KRJaHYd2ZTj2KTPpgAus HzEyZSD1TsD4EJD2cNGk hS9uaXtinocneP6n Oyc+M44ikX7sVOW0NLT3 zvguMZCttiMyBQ32IS76 G8JoOmxwcSHdjKY+PGRp nuAdwWcxNO1aZjNi d5aoj4WqYJqvE5WoDBTr FUsqYhg7NYXpUDL4vFB5 zS5pGFQfRDbli3B6fKL5 J7RfzcVwae5vv8oy JDFeZIuiI49anOGku1H4 ZLCpcWT1FXPsbQedXpCp hD89Ryl+JUPvnCyzo1Kn Aeacv1uzy9otmZa7 IjMwJSIgdmFsaWduPSJ0 l5KbMe66B50zTLfzNGPc ENRdGHFmSTMywGkpcn0p mQ3hKu4+PGNvbCB3 xWY9oH2gUVUcLrH1MKto M328NlElyVJiCnhlj7zo h0wlgDp2AmDiCMXjucBe kNqqWAM6p1RoJd58 Y47yEDtqXYHbJEEtBJTk HMCpaBkovp4ddY4oBp4+ ZD0mr6bkgh89qQ23rIC+ DDZsQNU7nBspRLvd JHEzoU0aRYbnBhS5CJOa OlTncF07oCXyQDytQv2v nUnlkZezCK3tOWYqpnyd t559EnKmp0fnSNTr vRLeOMkpZGV9G81zk5I4 JLStEHYpABT3mOR1qA0l bGlnbjogbGVmdDsgdmVy cRspJKhvXCukD624 IHRvcDsnPlBhdGllbnQg PhDtZSp7Y6DvCma0OVIn rYgjUL9smIEzQTvlRr6t kPjsuPnsZD1sRGEl tggbh791GxOdh9zcKRZs hTRyLYsqVMK3S12zq3B1 IXCgPGVxTUV0rXK7cH9u bGlnbjogbGVmdDsg agZcyBgfTSkkKEnlZ863 IHRvcDsnPkJpcnRoIERh hMQ6RK79EK98yVJun9M9 xXY6Z5XiAQRrslhh blsokHH9SMKqGHWrnL88 Mr3ofWymZn9kBKWqMMN4 FVZljQTfX2ZorX2hYuAh KELvRZQqA5OkxMRz TEngY683QRenXeO3AGZg xuKdP2ChWELsiZadMwM6 p4H9Bs0SM7L6AW45EX62 tWQyf1Z1zUV7Z7Sh HRSxtvbfobvhtMP0YZXf UOCnkX95Hy9ikZvwZp2g ELQaZHR4TBOepSHrG5Sw jV4bAbFwKLYaCETq I4KqoOBiSApwG719RNgu VeV8BSVrhsKdB2McAYHz oIreOrU0s1M4Ku6ESFj6 ZE76DS08aTHyo9B1 jEI5A8PxHSDpzfuqlxab uEJ2AEZeYJGsyI68Os3f hKdqDb4zONVaQAF8QAQy pGNlP5TgfM4gReGq SJVcZGPjK8EdhCOqLHib F029LXcuVgA5ZXWkicKo U8JiMJPspMirZdI6q0Q8 Vs0QZOXhMK17VYJ5 jOA9UO05DG64X1DqYbtn dGFibGU+PHRhYmxlIHdp ZHRoPScxMDAlJyBzdHls LH2vOt7eSBOuXLPw cXstjBKyCeUqd2qkKHXc ZJwmYB7heAmmX7IgtZF6 AAYhm7y1Hz03P79cU7Uf dXA+JHTggNC3qCA7 nX1dRrKoCvE6CGcoJ731 HqYlvSEkLewnd6btp9bi hRe5QhX1FEJrnzCucJqo DEV6y5XoVz23T25p IHdpZHRoPSIxNSUiIHZh nCqngt1ziD4nCr1+PGNv hQX9vBT1iH6lTvRcNnX0 FYarW828NnOkuFHg Ujjke7ljx3xelIr2DfQv KAAhgnZnqIouETY5y5Fm Ls78B3KikHfcu3XlYfw8 vp82lLPvv8J4eEV8 I5RnPUSeepkmzDVgpHok PY3fJLOfhfwvOTTngX1j PXAwO1k9QwAuMfZ8SOnf Y3FmrqK2TUIpnIJa RJrnDJJ4Z72wb8R1YZBy NFNtGLV2gVW9zQ1zqFkm bjogbGVmdDsgdmVydGlj ZYmiAXoyF699VMAx yMygCHQizB2mAJYdjLKj rWgmXY4hEQRcgvecDgBU RY5KHGCbAErGDXGMEHF0 Y7GnIgp6IQKauTub JK1dxBZpVEasCb9qbRow oNqcXL9fXTYuyyigPOBw fE8rXKYbaXUkiUevLM4v ZYEqzqixn285LkQf TWA5TZNsoSRyN2AhrL5y ZpViARZbCGYqP1HjeWTo FAexD606EVysRbG5UTTk uhLlZ9CfELSseEni UeL1x2J2Zr6dTO6aJP9e ESXcWV09XN69oZFqv6O8 vPU8W4JbPYNogdzfqzls aXL6WKUgZOTvsD00 eTLyGVljPy7hx6Z4t101 TESfLATsxI66Ge9ftDnr LDAkcUPXkD3gbdltl6cu cjogIzAwMDAwMDt0 OCv2PTPvtIyrRhNbDQC7 MgQ4WXO3cHGcoZ6xaHhx ayipeR6dZbx+NTkgWWVh sxK4J7BlKwj9XPXt eHgyJB2blHIuACsyGo8c bHfpzHytTV0hTSEiveuh YHDsxT4bOBAgqYWsjKfa IF0hJFYplpoqv995 VdQkSAG4TTWaqPCfT1Pj jX1iRvRoPVUrBVMnE6Mm zPPtMNngQ799HOgaMjQ2 ZOTdjnQvH2UoTYDz nRryMhV1y2M2Rt8KPB3j mAT6Q0AfGxt9XWWicFxi EI9ffTHfTXdkTe7hsJco uEnlZQ4vNOSqiojj HPOdfG0vIHSnaFGwuAwz YK1yNJXqbufma252BfOr ZTZ7ULBhvHRlV1ArhY2o IaLvIXAzYAPeE4Vd qCNoJJgxB376JWzxRfX8 XFVfliFbX0JaCKRkxOvd RxC8k6V4Az5OhXWhQQPe TB15CA14RP13D4Gs PjwvdGFibGU+PHRhYmxl IHdpZHRoPScxMDAlJyBz eNczRX7lXm6lJOFbQUBj mSrflGZtNzOds1zo ZIEzUTswRC4yyKauY3Wu nFQ9BIHzh8n6Nw96G82q Y7HqfHT+CHKzkQK4fOR5 tW9qJyAyXvM1NBcu C017EpFrcQDkZnyzk6eu f1uneIi1KcGnYCVtsjKp qHgaKDK0v2HeCb82R97i IHdpZHRoPSIyMCUi AVJhcDetiy2amA0wXg1+ DKXuxJJ5wAK8uX7bGbFh YcB8QHynR615TiXjgEWv UejxF02gH9LpmOK+ QABoOvq1BCVexJfmPU0i fJCfZFykId4aGMM4XuIo XgEsKOitO6ZrNTUvtkiw gfxjzCJ2PDUyTNPa bA96Uu7tmJagGh7bPGQu MUL7CQFnhLYgH6BhgK0q NwVbYHWjGWPcI4ClcAPc DZbkH788VVbnKfQ7 BGTbtcTaL3LxGUDpmUgb YgD1h2E0Uc6RnWqekSVu OZ4sXfJtPYh2H9QaGvv5 QJFegEtdKC8yzDUb WUlnVu7rbVwreOvtUW1g AZUvzpdjw138OwJlw9lo UTUeqIYfLEazLQF0T47r x0R7XEXhVZKyGCV5 sEU6sY3elOboyylcbPTd dDsgdmVydGljYWwtYWxp N758UFHkgMspTnLTJbt3 O7StMni5FUInvUvt DO9eeMKcIYykLh9adHkf hUcfWK3aSDBqndsem059 KzEtm7wrDZDjhECbNJhj LYB7L32bw7L1RUPu RPOaYHA9sIZ0tH5zjDnm bjogbGVmdDsgdmVydGlj EZvpLXqgW550RHZemJwg Bu9AXxx7X9BrDtn0 BAInqMbxWD6bxJEvNQdi Hz2eaXefaYevUS7dPLDi ljibk788BhDhn9hfRUKi tFFfCIneLWO9E93y c6R8EEJsPRCwVVD8lUH5 dJ2dbVcaljxtiKBbzOqn kaXfgCoaBPpzOJmyS276 IHRvcDsnPlBheWVy OjwvdGQ+MG81cx44K5Da HnnuYhw1ZYDhKTG7zQB8 jC2jFYVeJWebo6Y1fXR4 V9OisyEndy6dz4oj YXBz (more content not included)... [facility] Coding Summary. CD:[id number] Gh0bWw+PGhlYWQ+PE1FV OYnS00reWDqnE3HV3uZQ G5QCQGRYMGTDH2XSW6nj BR4XZijD7ZthpMq JoedwQQcAD61PFp1RNQ1 sIjkKQbpbV3epVYtR9b5 BnFbAS51kQ23AOpcBEZo HeV3HkQwivcrkAUv J1toHpJkiBDmIzm+PHRh YmxlIHdpZHRoPScxMDAl SzTbbYsgZD3sIo9rTZMd LWNvbGxhcHNlOiBj m0ppOWMpTAgjUH0tqVxt B0VgnKH5DGJmt3b9So72 dHI+LBAyWZD0qVcdOKrj x008UwTnd6rlNGO1 aDQxJJbrUTX7R31ix1N4 KHKzEEGxCCE7cYL8rG1y mGycgmvaE2DlhZSaKiH5 BNF4vSBnnX9dlKzz wptgrO5zVqb+V40GLG6A LEPPIQ4ZXqw6I0VkPpso dHI+EB07RBXsQX81zBWu bPXpg5hzhIr2NuBz UAMrRRX4zVuiYTfmx2Op RJXjF97yoXDbd5S1TCDx vOulwCHtUaIltUD2eN5y XAofikadg1bsrooj Lhkjd7vulk76qO06P50p JTlrWCYeATL5FSOrHAUu tLomim3naP3kXw3+IDxj r4txp3fuuTf4KjWa WBXbhtDzlZllLXR5h9Ja Em09H5AmgJoed4UkBpv9 mz94vQMrz8N8lZO4WJao SCZllR8pUVfgKcB1 GKIjKeDsfQ94vETfJXff De1vmVzbvLweSY4jVBSx ajfdSDPytD5wYOQmwLCd yPfkZT7iAFGoaawx u916KcNiRHH1NSUjeHNl J0FafS1aSlExWLWuJWQn C5UppIKbQPrcW084GOey PhV8VXCuznExY8Sz TIBooRhiYvR7h7F7Dx7C c5YxaekjIZB0KLplMFQ2 FeW4KwRjSsU3W7IkHcw9 SANgoTqtCI4uR8Yb QHYlihknziuvcHM8WPEe NJEkgX23tFGrPSkzLl6h h4C0q454JPZgLXCuwL05 Eb3odClsWGYoxNQY bY8kpcrci0hsihzsIxRp RCHfQMm9LCx0OXNooKki LpNpUNM9OxY8GSZ7mVVc tD2qdFevcmfzcM5f Oyc+L80yhZ4jBVM7QPH9 yulyRAOqiiQeER16CN13 C6YkMuudsMDwdDX+PGRp hbYqoIieFV8eVeGt o9xev0YtHEamS4OzLHGc JSxeFgf8PZPrIKM6jNG5 mX0mEOHkHHmct0N3uUK0 W7QvwlWnay9gg2pr IPJxTFfmM75fsNRlu4C5 GRVguVU5ALUmgYreWjEb xY84Fwn+AHZteAjfd8Ti Llxtf5qgp5ffmGg2 IjMwJSIgdmFsaWduPSJ0 k9IkTx74O21mQFakVZDx RHGuKOHhVKKfoRovnm3z dG6qAp7+PGNvbCB3 gYT2wH9vBICgRfC6JCca M828LhFzvNRgDewvj1if f3froMb8CuMzQUVxniSn dOiqVIA8b6WcVc23 G93gVShgTTDeIBTsPMUu JLXdiUbwks2fvK4pAp2+ IX1bg6ajda49fK93vAG+ ITUlFVF8rUpqUKim DPZqtL0yPQhlRpA0IIHb QxUmdM07oFEyJChhGe8j iFcmsFyuKK2pVSGbqbwv s919AeNcp6tyECBz mJRkBCpoRQK5F63uj0T7 HMMjZTBgSJA3mLL3qI4u bGlnbjogbGVmdDsgdmVy jKjtUSzyECpsQ726 IHRvcDsnPlBhdGllbnQg QkLkJDs3R8XlDje7THRh gYsyEB4myJWfCQyxPr8j wMthjIxqXF1xUSOx xflpm489UaFrz0xjAJMv fUUjKZqwGNW1D87mn7Y1 EXNyDDMySSC4jFR5jG2e bGlnbjogbGVmdDsg uwMevNtxXXgjPRdlJ227 IHRvcDsnPkJpcnRoIERh oAV1MX40AB47iGVia7Q1 bWF8Z4UjTBUjzfmb mcrjaTS9BMOzXHAbsW71 Wk6rsDcpNx5zKHPzOLY4 WTSqrLLhW9YybG7eCtFl KXWfEMQlB0MnrRAb FKawA659LCwvJaZ4PMFh ziGqX4XlRRUvzSwdMqC9 t4O9Kg2UV8N1MW11CJ70 oKAcl1A0gBG3Y8Wq AZFvicakdcsemVU5CRDm FKFomL47Ub2gqJdzPs7i KQAtBDA1TSIhySWzM5Lp kL1gIkXlCBAcLHUn J5YspYGrIKabB369KTtj ZwO1NJIsazCoY4MuTZTl kDtyWkV4p1H9Cr0CMTk3 VY13MS06zDNlb0I2 gEJ1V2EqUCLglmnmdeiq vRR2AUJyYNUvfP64Sy8i yBzgUl3pEPOkXCP7APZi pVAqX2ExgB5iTjPh GWFeVDPaC5HglIVuXByj W235XZvxUsR6YYMqgiZs Z1UoRVDxwNtdVeR5a0L9 Pt8JNOIeRR16CLI4 qOS3FC55JF95M1SoVfkn dGFibGU+PHRhYmxlIHdp ZHRoPScxMDAlJyBzdHls HV4iCx2aMYYdQRAs aFlfsPUvIuSki3qfXAVz ODbfVV6fyYizQ8AwbIO9 DJDrb0r4Yn06R92uW7Md dXA+RQUjeUM5pLR9 sR8mIgAkYgW7XJgpS156 GqWdhERrCuuci2svq4pu kFt3YpE9WOZwgqZupJbd VEV5y4GgPi79W13b IHdpZHRoPSIxNSUiIHZh gYedqq3ptM8kWt1+PGNv dBO1vSP3sK6zRnOrAnN0 TBrhP276TrHoxMIr Wjamo1tbd3jffHf2VqTw RKFbggNkpCsbIZP3c6Yr Tm72E3HbjFnsa1YiZsa5 bx95xXVwa5S3dFI6 H3DkFDQuoidtyQRmbBmu JM1bCNMziqcyYNOdkN1m DXEbF8g0OjXiHnV5SZaa D6WrbjJ3YOXiwBIw LDvbOOA8W46rw2O1VBLw PFSyFOI0fON6gX7flAvx bjogbGVmdDsgdmVydGlj WTzaHDqfZ408GHGe wBewZNHxpY3rVSTftLTg oUmgZY0yNDUudcllCaKT GW4YAMWiVXrVXFDJSRF8 N5BcDis3FICxuIbq UG6yuMMgVKxvCy6fnQqh sAqkHC3uJCWhhygjKBCk zI9zVBGezUXtkPsgAF6q PYUxtsxao794IuWl RQI6CLCvbQSqG7SopU8j VaQiFPMjRZCjY0GpcHWe SOmkV461HVwkLtF7YGHz qzRdN0WdEFNseGtm XqL6d5J9Mh7kOS5tTQ8e OKZeCH61YV53fWHpd2M8 fAL0R4DcTGLhatdtpydp eWJ6NIXrLMXblJ95 gKViABwwRi7bl0A7d526 YNBeJQJqnX11Db5iuKwn RZDwiKJYbJ8lolzfp0na cjogIzAwMDAwMDt0 OMj8GGAvuDmqYuFlWMP7 CsO2RKA8vUTihF7yyKpt rpslgL0eXgp+NTkgWWVh rqU0D4LmLwq8TSKd zKmsKT0jfIIvWBueWc9g eKdffRaoMK3iTGKakdpz SBIstE2wQQJobUNrtEiw QM5wCZUgoahwg097 NvGlORJ0FUBrqQBhK7Xd mR0aIxWrWETiMKHxL8Lz eYCcOLrqE403AMpsTvL5 BZTjtfGeT1TsLCWn qMebYjU1r0B1Wh6NDP8v kHK0D6EoZpd0MPBvbItv LK9obNTfVDugKi0smBjs kUczQE9gWJLpdvoa WDDcyW4oJZTddJXxpAud DQ0cWTNmrdnaw561DfNu GDG7YGAucZLfJ4NfsZ1f PkQrYOTmMSQbK6Fs uEKcZEpmA241CAclNgJ8 VQKsjlXbI3UjBJVhhVdb TwN7p6X0Jf6LrMHxIBKs ZL78VZ85JI12M4Df PjwvdGFibGU+PHRhYmxl IHdpZHRoPScxMDAlJyBz nWlbUR4zNl4zDZXuNWBv bKcedKUeAhRhi5aj NFVaXOgtVA9nyRtaJ4Qy dHW7CXCqt0z4Ez02C01b N8SsbYU+SUUkrBK3oMI8 kM3tLqAcWkX3YYtu O256YqJciVDbBkvnr3xc i8maqCr2MfRgIWRztdIf wViiYTV4g5NlEj02R89e IHdpZHRoPSIyMCUi DJAhdWrkqe0ljT3kYv2+ SBAriAN4aTR8qS6wSqEx GtV5BNujH683TuZrxPBj RwonF67gK0MkcLK+ YASaOyr0SYKmuGgiIF5t uZRpXSukEn5tGJQ8YyGy SoAiSXwzT6NuETTwazfe jyoraNY1LJTpTVAk sW32Qy8buKjnHd9jYXNc ZXN3KAYmcJPgQ5JxeS5a WwEkYQQlEIGmA6XksLIc TZhoD148JSmtAdP0 UQZnaeEqE4LoHVYqeOcc PrM6t9M1Hx7VqPcfaCHt JL0fZeYyTGm4C2VkHji3 IWEbhVfsUV1fyKAu IDchRg2tsLnvqJrwZY1s XCPofjugl956NbTnq4az PNPltPFmFPbiYNE1B16c a6V5PVRuOGGgLXH3 sKC1hD5rjDcwihtdfVUo dDsgdmVydGljYWwtYWxp W215RIIjaWazQyNVDro2 E8SkGdc4FVZkqLux GR8slDVaNPoqIx8jwHfp jGjwNT0qYPLevfywb253 LqSfw0ogXATrvWUiLRfh AXJ8I41by5F3VWZw TSPpQLD2zSG3iR2wmCfs bjogbGVmdDsgdmVydGlj UWnkLRxxN041UTRvyXvs Jz0LWfn0R4RrAix4 DMQbiZxdAB8ffOEyKWsx Xp3zvSmtiIfsGT3uVHJs dxftd206MqKhg8emODGm cLUzSVmnBFQ3Z40l l9N3IFIfJOWvWWS1iJV9 vA8ilQjjpvmtyBHumKso thFwgGyxYDxsLSawA301 IHRvcDsnPlBheWVy OjwvdGQ+AS47mf79P8Hs NustTop3WFPlGUW5eOT9 aF8lJIIfRMnnw5D2mYM4 D9UnvoCxks3dn9vf YXBz (more content not included)... [facility] Coding Summary.on 11-01-2021 Coding Summary. CD:[id number] Gh0bWw+PGhlYWQ+PE1FV MYxB85coLPjdE3AB3wHQ G9CIEKJKAOAHA7RTT2oq OO6JWsrB6McbnWw DmjtzVMcTF03TBy9YOZ6 mSovRLvezX8pnKZoQ6a9 FhCjJK93sE16REclLZGa HwU3BdXxqntnaGGm A9nhJjYaiVLnEky+PHRh YmxlIHdpZHRoPScxMDAl HdRzzOtiUL7fJv0jYVCm LWNvbGxhcHNlOiBj z6qaREKoWFavII6fsDvg R0TlhLQ9JIUvu2a6It96 dHI+GSNzJLF9lHrgNOqj n956PuWot0jkYOH6 sPNtNLubWSJ6P11ti9V0 SZRmCSCrURE3nTY8vE8v tEshqlgrZ3XcjCBqOlW5 JZW6yOCjdA7upOhs mtjfgU3sTrx+F82BJT5H QHKMDE0BYpx3E9YcAdhx dHI+KN82WCWoEU10sHVy dDDqd1jhdNw2AkLj BWFqEQF5cSrzNLkph7Te YAMmC70woNMxj3H4UGQf qWiwxYJhEjZadJB3nV0e ZEojyprcy2xpmjeg Kbkxt3jgqy39oF69S00m OZtiCNCoCWV0RTCvGVHs oCkocq9onL5sMe7+IDxj g1yik9zujOb1PoHx VGXrejZwlDduISM9x1Qo Fv49P7XwkNxop9ZlFix8 yi06fVOdl1V3kWT0TSoh RLQtsQ6dKEmcSsQ8 WGIiHzBzvE67dQGwICnk Ap1pdNsesEpzCF9rBPNh yjdvRLDyrQ7wKHTekZXy rCemEG5pJTXgttdl n664OlRsJRT5NHNjoRLk D8LilN3fVxErEOCqFQRx F1CsmDTlUJryG034KVjr WjQ8XFBhgpYzF6Zl IGRrnXgiCzG1n3V7Qa3O s3JtanshZOW7IFtoSOSi EiK1CuFlGeH7M5TcDye4 BIHufJxlWF9xB3Tq JCOtsyfjxteoqMW5MMAe VMNgpG13aLEeTQspFr7c e3Q3i830VOXzMWEmrD50 Vq1csTefMOUtvUSC kP6iqjlgc0nhvwitTqNk QUZqVEj0OTq0XNEfxWgp YeDbORA0OlC1RTQ2ySEz pE8mcKsrwrwogX5y Oyc+P34fmY4vYBY0BCB0 hboeQMOeryCsPQ55XW41 H5FvJmxhrMJczCB+PGRp ilHpyUvbZQ6sZvGr v5zbe4DoWYlcU5OhTQVk OQrxDdv2ZSHxWEV0uZW9 dF9oQKLnEDggb3I6wLL7 O2QukvOnaa9zr4ue GACyEVheG03pkJGwr0T6 RUPmsHT3NATtkZpqYbZt aN68Oaz+OMNhcVarz2Gw Vtuqj9mtd5ezySf6 IjMwJSIgdmFsaWduPSJ0 j6AoCr12H89nXSpbYZGj JEUrYSAcPCLqfOoaqv0j pS5tGr2+PGNvbCB3 kGH4eS2lWRLlPyG6XIat A830YwTqqYQzDrejf8qa p0gkuLo2QmCjVOFtlwNe kPurPYG6v9JqUl49 V05bOZmuPBPwMMFpPQYb MLCphAmobe4flP5nYi6+ CA6if8yfib30rG87uFB+ FNXzOJF6dGgfGEor CBRsbC1dRFryQmR3JFJf OuIbeH40rPJyFMmxAr4f jKateIwpRZ2cAPOjsqzp j884TcMwy6voDUDb pVBmEBnrRLM7H35nf2V3 PPTrEAOrFKX4vXV9xT8l bGlnbjogbGVmdDsgdmVy wJjlKYkbDGdwM877 IHRvcDsnPlBhdGllbnQg XaXgNLi9F3XaMvz8XOSi dNpmMD3xxYGmLKntXu4n xXdemIudKE8nJIBl icppl108MgUip6isNQDr vDNlHOldJWW4N37xl6R6 TRSpDXBaKGL3iTH4tX0q bGlnbjogbGVmdDsg nwXyzWdcACgvCFsnQ480 IHRvcDsnPkJpcnRoIERh nYW5JT30FB26mCEaz8P1 zIM7B0QkMJKjmyad onmvyXA3LORbFEUdsC17 Rt5zcCsiJe6tRDCpHYK7 BYSymFMyF2RtzG9uHgAn LCWeAFWpM9XopUVm KQshV838OLfgWjZ7QDSz doIqX9TdUCSfrGrsZvI1 m6C5Az9PM2S6QI48KZ98 fLJlm1R7dAT0K9Jb XBSxamdbefsvgXN3PQZj WPVagF87Ww9bzOrkOn2d EAGrOER3DYVkmQRfA2Vs xJ1cArVrCWRlZUGy H8YvnVKtQCczR889SNkw TpW6GSUcsyLnC2PqVZWj vQkdLbF9a1M4Zu5VWVo2 EV32KF74eUApe7N7 iEP2G5XtIQEnakojlbay qGL2NYMqLTJidK02Ke1n nApvWi7xJGZhSKN8WIVq dDHfR6ZrgJ9vDxBd YDLaTKUaO7PtxSKsVCvj U460UHauZjR1KDQnehJm X5CaLOVegQutQzY4v5T6 Dk6YEUYnII10PKG3 rBM7XC96CQ28D7MqNjqa dGFibGU+PHRhYmxlIHdp ZHRoPScxMDAlJyBzdHls IW0bHj6fPNIxCVPe xIhihRYhBlYjc6elMWVv CGyqQU0hcSrxT6AlrVI0 BYWjj7c5Vl14U17uU0Hz dXA+YVTcdNP5zEP5 tD9wXnWvIdW1JMubI226 QgGczOKuOkrbm7uam8ra sXi9DpA8GZXenuIckLrl ZDR8p5ZsYu17C07u IHdpZHRoPSIxNSUiIHZh yHsxni6mnK4fUk6+PGNv jHI4rOI4qO0hUpPdYwX3 XRjaU345RvVznDOy Jpazb0yfa1alzYo7AmHe HXZqadGbfNssPAI2z9Lh Su06I3LscXmys3LyFdz4 xs78hCNzp0V8gHW0 Z1WrHBFglorzqRTddMay MS2oCRZwiqhlFWKzyU2j MIEoZ7q5KlSoFwA4NTyp K5YtvaQ0HQCxcKQu LQwkFNA0Y27by3C1QWQx JFGlINH1pIM3mN8ihMzv bjogbGVmdDsgdmVydGlj XWzwZEgeM935ICEt nZezLRCujY3cZKYmxYJj fLhwFV9fKXXdinryMoKJ TA2XKLLiMJuMUGLWIOY9 K7XxOnm1TWLffHla NA0yvELfFTjdAi1ejOix mDjuIC7yISXoczicAAKr uC4aAEKuqZEcsZadRH4p DRRfppehv690OmGa JNW1FAWwxOHsB4GzaC8t ZvNuPDBwFMVcA4VoeXPx EDsvT578UQcdScW1VSZn dwCqE2ZzYSGotRys GwA0z4U3Ut5mRM7gZF8v DUMaQO88QJ23dBNkr9K8 hZQ3N0HtUJWxyftpnafx yHU1BNHzDXDgbN56 kQVkBUkcQz7xz6T1r172 FWLnDQDjrF49Hv8yyTwe LQNtlAUVpE9dvmsqw0xm cjogIzAwMDAwMDt0 CXi1YQNzqTpsCsVyCQV8 WlD5NYS9bIBbcD1tgJjs bpfeqM7hZzb+NTkgWWVh shC1B8ViNjl9FZTk xRnsVF6fvOAsDYexSd6w mTeyxSqvHE0qPXLfyxmf HTCxuO0kDAQtmXWdeHpk LV5sQOMtbbhwh860 AuKzWGW5KERapFFaX9Ii sP5kCjKlFQSpDRMmX5Pb sGRiOCspG214HWonEoZ9 BCVwnaNxZ9IzXHOc cJqgYiB0j8K1Ia0GZM2f cJH2L3UdLii7JXLpkCck DR2puARqJNuwEc2muUjk jRoaTL0fMAJdglkf LFFksS2yVPAifXMycUab GX5oMETtbsvzl531BgLn DDN4BCRtdHLsE0XqjC8q PoGdFALlFYByF0Xq bNKfPNduB511AFmjFnJ5 DQPkygUwN3AiHPRgjKhh VoM2j0J6Fo1AdPZxGQOv RR68YB11IH28R0Wp PjwvdGFibGU+PHRhYmxl IHdpZHRoPScxMDAlJyBz iPosCL7ySg7tVXFvIQSe yDvjpQThAwIhg9rg VJWxRMlfEI5bqGfyH5Pv uXL6EQYaj7n9Sx00C83f X5RwqGM+HFDjuTZ6dRI3 nH9sZfJfRvN1XEsv A627ZkTmcJWiBqgjo0hj h6iijRt7KnKnCBDuoyWe hEmyTUI9c2VdYv11N02s IHdpZHRoPSIyMCUi BELpeBpgrh1giE5fAk5+ TSCzmCG3cFM1wF9yLxKu SuT6TVkrF623CvZovYIp NodkI57gB0LvvPC+ CQXmNtp8CLPyqBusZB3g fBVvQOlvAd4gCET1SdFw ZbXcJRlcT8TlBCIruhbe exdtjRZ9AKDxIUMw fP41Jk2hqPirDn2xRUOo TJU0VOHqfMMxS7HyiB3y CuDfLSQfJIUmA2VnlWPe MLkcT250QNrvCkT1 NWXlumUxB7TkAPFcgOzh OeV1z9C7Eu1IuRlupLWd IV3xDnNaBWj5F8ZnUny2 BWSukKenHI7jgRQt JNkuMr4tqMrcaVddSV6v XTTktzfgv948BtIbg4xq LFQltTVpPCmaAMC5P73s x7B5ACQuJWYzCIX0 wGK3cS3ghObensngtXZc dDsgdmVydGljYWwtYWxp Z751BMUhlWslDfHGGph5 B0EnHkq2PBBbtNsl OV7meYFcJEioAh8snOxu zTqcME2eFSWpvpsay467 KtMhi3vhADDugMTpDQtj MAP6Z76dt8N0BXFd XTFhNFN1aYH8nG0tjFwe bjogbGVmdDsgdmVydGlj GEsnRRomC866VGPgpInv Hg6QQdt2L1YlMdk3 PEOkyOceQA7tcDDzEUmv Se4asRhwxPoeDD1cMZLd xoipn506CpQfs4moTKZk lIWcQMtbTOO7W41v x7K2BTOcCTPiIHC8sZR5 eY9xkBttexmrgNNljOoc bgJstDgpSWuwWMevV786 IHRvcDsnPlBheWVy OjwvdGQ+XE10pq62A4Pj FbtcHho8VUKkXTO3gNM5 hL6sXCNdYHdmz5F5mIG6 S4TrjlTtkj2ro0tq YXBz (more content not included)... [facility] XR Spine Cervical 2 or 3 [...] M.D. Transcribed by: CAITY Technologist: SULY [facility] Consent for Treatmenton 10-05 Consent for Treatment [id number] 6#1.00CD:127 [facility] Consent for Treatment [id number] #1.00CD:127 [facility] Consultation Noteon 11-01-19 Consultation Note Patient: ELISA LEUNG Age: 61 years Sex: Female : 1960 Associated Diagnoses: None Author: Adri GILL, Sophy Subjective She is 2 weeks postop from [...] has, # 60 tab(s), Refills(s) 0, Pharmacy: [facility]/pharmacy #[id number], 166.8, cm, 10/11/21 14:46:00 EST, Height/Length [...] Oral, Daily, Prophylaxis fluticasone 0.05 mg/inh Nasal [place]: 1 spray(s), Nasal, Daily, Refill(s) 0, Allergy [...] list: All Problems Palpitations / SNOMED CT 488184034 / Confirmed 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 Hypertension / SNOMED CT 6870437339 / Confirmed Anxiety / SNOMED CT 53973770 / Confirmed Lumbar disc disease / SNOMED CT 3031310914 / Confirmed Lumbar radiculopathy / SNOMED CT 964642253 / Confirmed Chronic gastritis / SNOMED CT 17889186 / Confirmed Migraines / SNOMED CT 13398501 / Confirmed Insomnia / SNOMED CT 060118836 / Confirmed Colon polyp / SNOMED CT 801062045 / Confirmed Chronic leg pain / SNOMED CT 457219351 / Confirmed Laxative abuse / SNOMED CT 487456337 / Confirmed Chronic cluster headache / SNOMED CT 432099016 / Confirmed Vitamin D deficiency / SNOMED CT 39052279 / Confirmed Hyperlipemia / SNOMED CT 92332416 / Confirmed Osteoporosis / SNOMED CT 486779149 / Confirmed 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 [facility] Comment on above: Result Comment: Elec tronically Signed By: Sophy Rush PA-C\.br\Date and Time Signed: 10/31/21 12:26 EDT\.br\Electronically Co-Signed By: Derick Meza MD\.br\Date and Time Co-Signed: 11/01/21 07:42 EDT Office/Clinic Note-Physician on 10-31-2021 Office/Clinic Note-Physician [id number] 3#1.00CD:127 [facility] Orders Officeon 10-31-2021 Orders Office [id number] 7#1.00CD:127 [facility] Physician Orderon 10-31-2021 Physician Order [id number] 9#1.00CD:127 [facility] Orders Officeon 10-28-2021 Orders Office [id number]# 1.00CD:127 [facility] IntraOperative Documentson 0 10-25-2021 IntraOperative Documents [id number] 6#1.00CD:127 [facility] Vital Signs Date Time Vital Sign Value Performing Clinician Ruba miller 12-22-2024 11:16-0400 Body height 165.[address] 12-22-2024 11:16-0400 Body mass index (BMI) [Ratio] 24.13 kg/m2 [address] 12-22-2024 11:16-0400 Body weight 65.[address] 10-10-2022 13:14-0500 Diastolic blood pressure 68 mm[Hg] Sophy Rush [facility] 10-10-2022 13:14-0500 Heart rate 62 /min Sophy Rush [facility] 10-10-2022 13:14-0500 Mean blood pressure 90 mm[Hg] Sophy Rush [facility] 10-10-2022 13:14-0500 Respiratory rate 12 /min Sophy Rush [facility] 10-10-2022 13:14-0500 Systolic blood pressure 135 mm[Hg] Sophy Rush [facility] 08-22-2022 13:06-0500 Diastolic blood pressure 61 mm[Hg] Eddi Arana [facility] 08-22-2022 13:06-0500 Heart rate 65 /min Eddi Sumit [facility] 08-22-2022 13:06-0500 Mean blood pressure 76 mm[Hg] Eddi Sumit [facility] 08-22-2022 13:06-0500 Respiratory rate 16 /min Eddi Sumit [facility] 08-22-2022 13:06-0500 Systolic blood pressure 106 mm[Hg] Eddi Sumit [facility] 07-11-2022 13:57-0500 Diastolic blood pressure 76 mm[Hg] Eddi Sumit [facility] 07-11-2022 13:57-0500 Heart rate 77 /min Eddi Sumit [facility] 07-11-2022 13:57-0500 Mean blood pressure 99 mm[Hg] Eddi Sumit [facility] 07-11-2022 13:57-0500 Respiratory rate 16 /min Eddi Sumit [facility] 07-11-2022 13:57-0500 Systolic blood pressure 146 mm[Hg] Eddi Sumit [facility] 06-20-2022 12:30-0500 Diastolic blood pressure 75 mm[Hg] Sophy Rush [facility] 06-20-2022 12:30-0500 Heart rate 57 /min Sophy Rush [facility] 06-20-2022 12:30-0500 Mean blood pressure 94 mm[Hg] Sophy Rush [facility] 06-20-2022 12:30-0500 Respiratory rate 12 /min Sophy Rush [facility] 06-20-2022 12:30-0500 Systolic blood pressure 133 mm[Hg] Sophy Rush [facility] 03-28-2022 12:43-0400 Diastolic blood pressure 69 mm[Hg] Sophy Rush [facility] 03-28-2022 12:43-0400 Heart rate 51 /min Sophy Rush [facility] 03-28-2022 12:43-0400 Respiratory rate 18 /min Sophy Rush [facility] 03-28-2022 12:43-0400 Systolic blood pressure 135 mm[Hg] Sophy Rush [facility] 12-20-2021 12:28-0400 Diastolic blood pressure 79 mm[Hg] Sophy Rush [facility] 12-20-2021 12:28-0400 Heart rate 51 /min Sophy [employer] [facility] 12-20-2021 12:28-0400 Mean blood pressure 97 mm[Hg] Sophy Rush [facility] 12-20-2021 12:28-0400 Respiratory rate 18 /min Sophy Rush [facility] 12-20-2021 12:28-0400 Systolic blood pressure 134 mm[Hg] Sophy 2NGageU [facility] Encounters Encounter Date Encounter Type Care Provider Facility Start: 01-06-2025 End: 01-06-2025 Bamboo flowsheet Michael Leslye DO Work Phone: [facility] Start: 01-06-2025 End: 01-06-2025 Bamboo flowsheet Michael Leslye DO Work Phone: [facility] Start: 12-22-2024 End: 12-22-2024 Patient encounter procedure [facility] Pre-Admission Testing 2 [facility] - Pre Admit Comment on above: Preop cardiovascular exam (Primary Dx); Hypertension, unspecified type Start: 12-22-2024 End: 12-22-2024 Patient encounter status Pm 2 [facility] Start: 12-22-2024 Encounter for preprocedural cardiovascular examination EMI Adrian GABINO [facility] Start: 12-22-2024 End: 12-22-2024 ambulatory EMI Adrian GABINO [facility] Start: 09-10-2023 Telephone encounter Tiffani Munson [employer] Work Phone: [facility] Start: 09-05-2023 Telephone encounter Tiffani Munson [employer] Work Phone: [facility] Start: 10-10-2022 End: 10-11-2022 ambulatory Derick Meza Facility:[facility] Start: 10-10-2022 End: 10-10-2022 Patient encounter procedure Sophy Rush [facility] Start: 08-30-2022 Encounter for genera l adult medical examination without abnormal findings DR EMI FRIEDMAN . [facility] Start: 08-26-2022 End: 08-27-[address] EMI FRIEDMAN . Facility: Start: 08-26-2022 End: 08-27-2022 Encounter for general adult medical examination without abnormal findings DR EMI FRIEDMAN . Facility: Start: 08-22-2022 End: 08-23-2022 ambulatory Emi Friedman Facility:[facility] Start: 08-22-2022 End: 08-22-2022 Pain Management Eddi Arana [facility] Start: 08-01-2022 End: 08-02-2022 ambulatory Eddi Arana Facility:[facility] Start: 07-11-2022 End: 07-12-2022 ambulatory XXXX NONE Facility:[facility] Start: 07-11-2022 End: 07-11-2022 Pain Management Eddi Arana [facility] Start: 06-27-2022 End: 06-27-[address] YASMINE DAMON . Facility:[facility] Start: 06-27-2022 End: 06-28-[address] EMI FRIEDMAN . Facility: Start: 06-20-2022 End: 06-21-2022 ambulatory Derick Amita Derrick Facility:[facility] Start: 06-20-2022 End: 06-20-2022 Patient encounter procedure Sophy Rush [facility] Start: 05-04-2022 End: 05-05-2022 ambulatory Sophy Rush Facility:[facility] Start: 05-04-2022 End: 05-04-2022 Patient encounter procedure Sophy Rush [facility] Start: 04-20-2022 End: 04-21-[address] EMI FRIEDMAN . Facility: Start: 04-04-2022 End: 04-05-[address] EMI FRIEDMAN . Facility: Start: 03-28-2022 End: 03-29-2022 ambulatory Derick Amita Derrick Facility:[facility] Start: 03-28-2022 End: 03-29-2022 ambulatory Derick Amita Derrick Facility:[facility] Start: 03-28-2022 End: 03-28-2022 Patient encounter procedure Sophy Rush [facility] Start: 12-20-2021 End: 12-21-2021 ambulatory Emi Friedman Facility:[facility] Start: 12-20-2021 End: 12-20-2021 Patient encounter procedure Sophy Rush [facility] Start: 12-08-[address] EMI FRIEDMAN . Facili ty:[facility] Start: 10-31-2021 End: 11-01-2021 ambulatory XXXX NONE Facility:[facility] Procedures Date Procedure Procedure Detail Performing Clinician Start: 08-01-2022 Epidural injection of lumbar spine using fluoroscopic guidance Eddi Arana Comment on above: L5-S1 CHRISTY- 0% relief Start: 06-27-2022 Mammography Michael Gavin DO Work Phone: Start: 10-18-2021 Cervical arthrodesis [facility] Start: 06-13-2021 Epidural injection of cervical spine using fluoroscopic guidance [facility] Comment on above: C7/T1 CHRISTY-minimal relief Start: 05-26-[address] [facility] Start: 05-06-2020 Hemorrhoidectomy [facility] Start: 09-04-2017 Colonoscopy Tiffani Munson [employer] Work Phone: Application of pelvic traction [facility] Comment on above: for 8 weeks in 1988 for left broken pelv ic bone Aspiration of ovarian cyst A phillip [facility] Comment on above: 1987 Bone structure of left navicular [facility] Comment on above: 2019 removal of pieces of broken bones Deviated nasal septum (disorder) [facility] Comment on above: 2003 Excision of lesion of skin A phillip [facility] Hysterectomy [facility] Comment on above: 1993 Injury of right ankle [facility] Comment on above: Dr Fields Ligation of fallopian tube A phillip [facility] Comment on above: 1984 Operation on lymph node Fredy lopes [facility] Reduction mammoplasty [facility] Comment on above: 1989 Structure of left sh oulder region (body structure) [facility] Comment on above: 1987 Plan of Treatment Date Care Activity Detail Author Start: 12-22-2025 Adult BMI Screening Adult BMI Screen ing [facility] Start: 12-22-2025 Tobacco Screening Tobacco Screening [facility] Start: 04-06-2025 Influenza vaccination P [facility] Start: 01-29-2025 End: 01-29-2025 Admission to same day surgery center 01/29/2025 7:30 AM EDT - 01/29/2025 8:15 AM EDT Surgery [facility] - Surgery [address] [place] [id number] Kesha Davila MD [address] [place] [address] [phone] EXTRACTION CATARACT INTRAOCULAR LENS [36363 (CPT )] [facility] - Surgery Comment on above: EXTRACTION CATARACT INTRAOCULAR LENS [37536 (CPT )] Start: 01-29-2025 Subsequent hospital visit by physician 01/29/2025 7:30 AM EDT Hospital Encounter [facility] - Surgery [address] [place] [address] Kesha Davila MD [address] [place] [address] [phone] [facility] Surgery Start: 01-29-2025 End: 01-29-2025 Xcapsl ctrc rmvl insj io lens prosth w/o ecp EXTRACTION CATARACT INTRAOCULAR LENS cataract right eye 01/29/2025 7:30 AM EDT [facility] Start: 01-28-2025 End: 01-28-2025 ambulatory 01/28/2025 4:00 PM EDT Support Visit [facility] Admit [address] [place] [address] [facility] Pre Admit Start: 01-15-2025 End: 01-15-2025 Admission to same day surgery center 01/15/2025 7:30 AM EDT - 01/15/2025 8:15 AM EDT Surgery [facility] [address] [place] [phone] Kesha Davila MD [address] [place] [address] [phone] EXTRACTION CATARACT INTRAOCULAR LENS [94016 (CPT )] [facility] Surgery Comment on above: EXTRACTION CATARACT INTRAOCULAR LENS [42666 (CPT )] Start: 01-15-2025 Subsequent hospital visit by physician 01/15/2025 7:30 AM EDT Hospital Encounter [facility] [address] [place] [phone] Kesha Davila MD [address] [place] [address] [phone] [facility] Start: 01-15-2025 End: 01-15-2025 Xcapsl ctrc rmvl insj io lens prosth w/o ecp EXTRACTION CATARACT INTRAOCULAR LENS cataract left eye 01/15/2025 7:30 AM EDT [facility] Start: 01-06-2025 End: 01-06-2025 Patient encounter procedure 01/06/2025 1:00 PM EDT Office Visit [facility] [address] [place] [address] Michael Gavin, [address] [place] [address] Arrived [facility] Comment on above: Arrived Start: 08-28-2024 DTaP,Tdap and Td Vaccines (2 - Td or Tdap) DTaP,Tdap and Td Vaccines (2 - Td or Tdap) [facility] Start: 04-06-2024 COVID-19 Vaccine ( season) COVID-19 Vaccine ( season) [facility] Start: 06-27-2023 Screening for malign ant neoplasm of breast Mammogram [facility] Start: 04-06-2023 COVID-19 Vaccine ( season) COVID-19 Vaccine () [facility] Start: 04-06-2023 Influenza vaccination Influenza Vacc ine [facility] Start: 12-21-2022 Adult BMI Screening Adult BMI Screen ing [facility] Start: 12-21-2022 Tobacco Screening Tobacco Screening [facility] Start: 09-04-2022 Screening for malign ant neoplasm of colon Colonoscopy [facility] Start: 01-03-1992 Screening for malign ant neoplasm of cervix [facility] Start: 1983 Screening for malign ant neoplasm of cervix Pap Smear [facility] Start: 1974 Depression Screening Depression Scre ening [facility] Start: 1962 Screening for malign ant neoplasm of colon [facility] Immunizations Immunization Date Immunization Notes Care Provider [facility] 05-26-2022 influenza virus vaccine, unspecified formulation [facility] 2 [facility] 05-11-2021 influenza virus vaccine, unspecified formulation Tiffani Munson [employer] Work Phone: [facility] 12-01-2020 SARS-CoV-2 (COVID-19 ) Ad26 vaccine, recombinant [facility] 11-10-2020 SARS-CoV-2 (COVID-19 ) Ad26 vaccine, recombinant [facility]ophy [facility] Payers Date Payer Category Payer Medicaid [employer] MED[employer]ARE A DV[employer]AGE [id number] 2023 Medicare [employer] MEDICARE A ETNA MEDICARE PLAN (HMO) [id number] 2023-Present [phone] [address] [place] [address] [id number] 2023 Medicare HMO [employer] MED[employer]ARE [id number] 2023 Medicare [id number] 2018 Unknown [id number] 1960 Unknown [id number] 2.16.840.1.114730.3.579.2 1962 Unknown [id number] 2.16840.1.580366.3.579.2 1962 Unknown [id number] 2.16840.1.336527.3.579.2 1962 Unknown [id number] 2.16.840.1.544624.3.579.2 1962 Unknown [id number] 2.16.840.1.945046.3.579.2 1962 Unknown [id number] 2.16.840.1.014606.3.579.2 1962 Unknown [id number] 2.16.840.1.380478.3.579.2 1962 Unknown [id number] 2.16.840.1.786656.3.579.2.727 1962 Unknown [id number] 2.16.840.1.775086.3.579.2.727 1962 Unknown [id number] 2.16.840.1.792682.3.579.2.727 1962 Unknown [id number] 2.16.840.1.480070.3.579.2.727 1962 Unknown [id number] 2.16.840.1.350794.3.579.2.727 1962 Unknown [id number] 2.16.840.1.976319.3.579.2.727 1962 Unknown [id number] 2.16.840.1.455472.3.579.2.727 1962 Unknown [id number] 2.16.840.1.215786.3.579.2.727 1962 Unknown [id number] 2.16.840.1.745541.3.579.2.593 1962 Unknown [id number] 2.16.840.1.410188.3.579.2.593 1962 Unknown [id number] 2.16.840.1.139646.3.579.2.593 1962 Unknown [id number] 2.16.840.1.497237.3.579.2.593 1962 Unknown [id number] 2.16.840.1.663944.3.579.2.593 1962 Unknown [id number] 2.16.840.1.563885.3.579.2.593 1962 Unknown [id number] 2.16.840.1.055184.3.579.2.1286 1962 Unknown [id number] 2.16.840.1.857234.3.579.2.1286 1959 Self-pay Social History Date Type Detail Facility Start: 06-28-2021 End: 12-22-2024 Tobacco smoking status Ex-smoker (finding) [facility] Tobacco smoking status Never [facility] Start: 09-16-2020 End: 12-21-2021 Sex Assigned At Female [facility] History of tobacco use Current smoker [facility] History of tobacco use Cigarette Smoker P [facility] Start: 09-16-2020 End: 12-21-2021 Cigarettes smoked current (pack per day) - Reported 1 [facility] Start: 12-21-2021 End: 12-22-2024 Tobacco use and exposure Smokeless tobacco non-user [facility] Start: 12-21-2021 End: 12-22-2024 Alcohol intake Current drinker of alcohol (finding) [facility] Start: 08-22-2017 End: 12-22-2024 Tobacco Comment QUIT 9 YEARS AGO [facility] Start: 08-22-2017 Alcohol Comment SOCIAL/BEER [facility] Start: 1960 Sex Assigned At Not on file [facility] Start: 03-11-2015 Sex Female (finding) [facility] Medical Equipment Procedure Code Equipment Code Equipment Origin al Text Equipment Identifier Dates FDA Start: 10-18-2021 FDA Start: 10-18-2021 FDA Start: 10-18-2021 FDA Start: 10-18-2021 FDA Start: 10-18-2021 FDA Start: 10-18-2021 FDA Start: 10-18-2021 FDA Start: 10-18-2021 CERVICAL ANTERIO R DISCECTOMY W/ FUSIONDerrick MD, Timothy A 10/18/21 Unknown Neck FDA Start: 10-18-2021 CERVICAL ANTERIO R DISCECTOMY W/ FUSIONDerrick MD, Timothy A 10/18/21 Unknown Neck FDA Start: 10-18-2021 CERVICAL ANTERIO R DISCECTOMY W/ FUSIONDerrick MD, Timothy A 10/18/21 Unknown Neck FDA Start: 10-18-2021 CERVICAL ANTERIO R DISCECTOMY W/ FUSIONDerrick MD, Timothy A 10/18/21 Unknown Neck FDA Start: 10-18-2021 [...] 10-18-2021 CERVICAL ANTERIO R DISCECTOMY W/ FUSION, Drerick MURILLO, Derick A 10/18/21 Unknown Neck FDA [...] Assessment Result Facility 10-10-2022 Functional Status N/A [facility] 08-22-2022 Functional Status N/A [facility] 07-11-2022 Functional Status N/A [facility] 06-20-2022 Functional Status N/A [facility] 03-28-2022 Functional Status N/A [facility] Clinical Notes 10-31-2021 to 12-22-2024 Patient InstructionsPerioperative [...] you have a Living Will/Durable Power of [employer] for [employer] Care that is not on file here, please bring a copy the day of surgery. 3. Please wash your face with baby shampoo prior to procedure as instructed by your physician. 4. NO powder, lotion, perfume/cologne, aftershave, make-up, nail beninese on at least one finger, deodorant, or [...] please call the Preadmission Testing office at [phone], Mon.-Fri. 7 a.m.-3 p.m. Leave a voicemail [...] Continue as prescribed, take morning of procedure razvkwje-bnui-BB-calcium &mins (THERAGRAN-M) 9 mg iron-400 mcg tablet Stop taking 0 days prior to procedure multivit-min/folic ac/collagen (WOMEN'S MULTIVITAMIN COLLAGEN ORAL) Stop taking 0 days prior to procedure omega 6-ddi-xge-fish oil (Fish OiL) 300-1,000 mg capsule Stop [...] prior to procedure documented in this encounter [facility] 12-22-2024 Miscellaneous Notes Preoperative Education Checklist- General Surgery date: 01/15/25 Surgery time: 0730 a.m. Arrival time: 0610 a.m. 1. Bring a photo ID and your insurance card with you the day of surgery. You will check in at the main lobby registration desk as soon as you walk in the entrance. 2. If you have a Living Will/Durable Power of [employer] Worker for Health Care that is not on file here, please bring a copy the day of surgery. 3. Please wash your face with baby shampoo prior to procedure as instructed by your physician. 4. NO powder, lotion, perfume/cologne, aftershave, make-up, nail beninese on at least one finger, deodorant, or [...] please call the Preadmission Testing office at [phone], Mon.-Fri. 7 a.m.-3 p.m. Leave a voicemail [...] Continue as prescribed, take morning of procedure xhpuapln-pxpr-JU-calcium &mins (THERAGRAN-M) 9 mg iron-400 mcg tablet Stop taking 0 days prior to procedure multivit-min/folic ac/collagen (WOMEN'S MULTIVITAMIN COLLAGEN ORAL) Stop taking 0 days prior to procedure omega 2-hhg-byr-fish oil (Fish OiL) 300-1,000 mg capsule Stop [...] Patient verbalized understanding. documented in this encounter [facility] 12-22-2024 Nurse Note Preoperative Education Checklist- General Surgery date: 01/15/25 Surgery time: 0730 a.m. Arrival time: 0610 a.m. 1. Bring a photo ID and your insurance card with you the day of surgery. You will check in at the main lobby registration desk as soon as you walk in the entrance. 2. If you have a Living Will/Durable Power of [employer] Worker for Health Care that is not on file here, please bring a copy the day of surgery. 3. Please wash your face with baby shampoo prior to procedure as instructed by your physician. 4. NO powder, lotion, perfume/cologne, aftershave, make-up, nail beninese on at least one finger, deodorant, or [...] please call the Preadmission Testing office at [phone], Mon.-Fri. 7 a.m.-3 p.m. Leave a voicemail [...] Continue as prescribed, take morning of procedure sajukvdw-glde-LZ-calcium &mins (THERAGRAN-M) 9 mg iron-400 mcg tablet Stop taking 0 days prior to procedure multivit-min/folic ac/collagen (WOMEN'S MULTIVITAMIN COLLAGEN ORAL) Stop taking 0 days prior to procedure omega 4-xcl-vxb-fish oil (Fish OiL) 300-1,000 mg capsule Stop [...] Stop taking 0 days prior to procedure [facility] 12-22-2024 Nurse Note Surgical instructions reviewed. Patient verbalized understanding. [facility] 09-10-2023 Miscellaneous Notes Called Ramandeep Mary/Dr. Friedman's office as we received a screening colonoscopy referral for Elisa, but she had a colonoscopy in 2018 and not due for a repeat until 2027. Spoke to Ramandeep's nurse and she states that Elisa is aware of this also and to please disregard the referral. documented in this encounter [facility] 09-10-2023 Telephone encounter Note Called Ramandeep Mary/Dr. Friedman's office as we received a screening colonoscopy referral for Elisa, but she had a colonoscopy in 2017 and not due for a repeat until 2027. Spoke to Ramandeep's nurse and she states that Elisa is aware of this also and to please disregard the referral. [facility] 09-05-[address] Friedman's office as we received a screening colonoscopy referral for Elisa, but she had a colonoscopy on 09/04/2017 and is not due for 10 years. They are to let Dr. Friedman know. documented in this encounter [facility] 09-05-2023 Telephone encounter Note Called Dr Ricos office as we received a screening colonoscopy referral for Elisa, but she had a colonoscopy on 09/04/2017 and is not due for 10 years. They are to let Dr. Friedman know. [facility] 10-10-2022 Evaluation + Plan note Extrac che [...] will follow-up with Dr. Derick Meza at [facility]. She has this information. Future Scheduled Tests Radiology* XR Spine Cervical 2 or 3 Views 10/31/21 [facility]01-17-2023 Evaluation + Plan noteExtracted from: Title:FUV [...] Spine Cervical 2 or 3 Views 10/31/21 [facility]12-27-2022 Note [id number] 07-11-2022 Evaluation + Plan noteExtracted from: [...] Spine Cervical 2 or 3 Views 10/31/21 [facility]11-15-2022 Evaluation + Plan noteExtracted from: Title:Spine [...] Spine Cervical 2 or 3 Views 10/31/21 [facility]08-23-2022 Evaluation + Plan noteExtracted from: Title:Spine [...] Spine Cervical 2 or 3 Views 10/31/21 [facility]05-17-2022 Evaluation + Plan noteExtracted from: Title:Spine [...] 12:30:00 PM Scheduled Provider:Sophy Rush PA-C Location:[place] Appointment Type:Pain Management - Follow Up ([place]) Future Scheduled Tests Radiology* XR Spine Cervical 2 or 3 Views 10/31/21 [facility]03-28-2022 Evaluation + Plan note Future Scheduled Tests Radiology* XR Spine Cervical 2 or 3 Views [facility] Future App[facility]ments Appointment Date:03/28/2022 12:30:00 PM Scheduled Provider:Sophy Rush PA-C Location:[place] Appointment Type:Pain Management - Follow Up ([place]) Future Scheduled Tests Radiology* XR Spine Cervical 2 or 3 Views [facility] Future App[facility]ments Appointment Date:04/25/2022 11:00:00 AM Scheduled Provider:Sophy Rush PA-C Location[facility] Appointment Type:Spine - Follow Up ([place]) Future Scheduled Tests Radiology* XR Spine Cervical 2 or 3 Views [facility]ments Appointment Date:05/23/2022 11:30:00 AM Scheduled Provider:Sophy Rush PA-C Location:[facility] Appointment Type:Spine - Follow Up ([place]) Future Scheduled Tests Radiology* XR Spine Cervical 2 or 3 Views [facility] Preop cardiovascular exam- Primary Pre-operative cardiovascular examination Hypertension, unspecified type Preop cardiovascular exam Pre-operative cardiovascular examination Hypertension, unspecified type [facility] No data available for this section [facility] No data available for this section [facility] on filedocumented in this encounter [facility] No data available for this section [facility] Summary Purpose Family History No Family History Records FoundNo Family History Records FoundNo Family History Records Found Advance Directives No Advanced Directives Records FoundNo Advanced Directives Records FoundNo Advanced Directives Records Found Additional Source Comments Care Team (unrecognized sect ion and content) Marriage Therapist Relationship Specialty Start Date End Date Emi Friedman MD [address] [place] [address] PCP - General 08/15/17 Marriage Therapist Relationship Specialty Start Date End Date Emi Friedman MD PCP - General 08/15/17 Marriage Therapist Relationship Specialty Start Date End Date Emi Friedman MD [address] [place] [address] PCP - General 12/30/24 INFORMATION SOURCE (unrecogn ized section and content) DATE CREATED AUTHOR 10/23/2022 [facility] DATE CREATED AUTHOR AUTHOR'S ORGANIZ ATION 11/28/2022 [facility] DATE CREATED AUTHOR AUTHOR'S ORGANIZ ATION 12/24/2024 [facility] FOR RECORDS PERTAINING TO PATIENTS WHO [...] BE BASED ON THE PRIMARY CLINICAL RECORDS. [employer] provides no warranty or guarantee of the accuracy or completeness of information in this document.
[2025-01-09 12:09] LABS: Age Gdln ACOG Testing Note (.); HPV Aptima Negative (Negative); IGP, Aptima HPV, rfx 16/18,45 Note (.)
== END 2025-01-06 20:08 | disposition home or self-care (01) ==
LOC: LAB 20:07
PROVIDERS: PCP Family Medicine; Visit Provider Obstetrics & Gynecology
DX: Z01.419 Encounter for gynecological examination (general) (routine) without abnormal findings (principal)
CPT/HCPCS: 87624; 88175

== ENCOUNTER 2025-03-10 15:57 | Outpatient (OUT) | payer MEDICARE, SELFPAY ==
--- NOTE | 2025-03-10 16:00 | CA_ITS ---
Patient Name: ELISA GOMES MR#: [id number] : 1960 Exam Date: 03/10/2025 Ordering Doctor: DR EMI KENYON . ECHOCARDIOGRAM REPORT PROCEDURE: CA ECHO DOPPLER COMPLETE INDICATIONS: Left ventricular hypertrophy, diabetes COMPARISON: None. DESCRIPTION: COMPLETE ECHOCARDIOGRAM Real-time transthoracic echocardiography with 2D, M-mode, spectral and color flow Doppler performed. QUALITY: Technical quality was good. LEFT VENTRICLE: Normal chamber size. Thickened septal wall. Mild concentric hypertrophy. Normal systolic function. Estimated left ventricular ejection fraction is 65-70%. LV EF: Normal left ventricular ejection fraction, (>55%). DIASTOLIC: Diastolic function is indeterminate. ATRIAL SEPTUM: Visually appears intact. LEFT ATRIUM: Normal chamber size. RIGHT ATRIUM: Normal chamber size. RIGHT VENTRICLE: Normal chamber size. Normal right ventricular systolic function. TRICUSPID VALVE: Normal mobility and thickness. No stenosis with no regurgitation. Unable to assess right-sided pressures due to lack of measurable tricuspid regurgitation. MITRAL VALVE: Normal mobility and thickness. No evidence of mitral valve stenosis. There is no mitral annular calcification. No mitral regurgitation. AORTIC VALVE: Normal trileaflet appearance. No visible sclerosis. Normal leaflet mobility. No evidence of aortic valve stenosis. No aortic regurgitation. AORTIC ROOT: Normal diameter and appearance, measuring 2.8 cm. Ascending aorta is normal in size, measuring 2.5 cm. PULMONIC VALVE: Not well visualized. No stenosis. No regurgitation. PERICARDIUM: No evidence of pericardial effusion. IVC: Collapses with inspiration. IVC is normal in size. PLEURA: CONCLUSION: 1. Mild concentric left ventricular hypertrophy with normal systolic function. Estimated LVEF is 65 to 70%. 2. Normal right ventricular size and systolic function. 3. No significant valvular dysfunction. 4. Unable to assess right-sided pressures due to lack of measurable tricuspid regurgitation. Adult Echocardiography Procedure Report Left Ventricle LVEDD (3.7 - 5.6 cm): 3.73 cm LVESD (2.2 - 4.0 cm): 3.19 cm LVIVS thickness (0.6 - 1.2 cm): 1.34 cm LVPW thickness (0.5 - 1.0 cm): 0.88 cm e': 0.09 m/s E - e': 5.98 LVOT Max Gradient: 2.57 mm[Hg] LVOT Area (cm2): 0.80 m/s Peak Velocity (LVOT): 0.80 m/s LVOT Diameter 2.33 cm Left Ventricular Ejection Fraction: 65-70 % Left Atrium LA Volume Index (2D A2C): 25.03 ml/m2 Left Atrium Systolic Dimension: 4.34 cm Mitral Valve MV E to A Ratio: 0.66 Mitral Valve A-Wave Peak Velocity: 0.83 m/s Mitral Valve E-Wave Peak Velocity: 0.55 m/s Right Ventricle Aorta AO Root Diam: 2.83 cm Ascending Ao Diam: 2.49 cm Aortic Valve AoV Area (Peak Tramaine): 3.25 cm2, 3.25 cm2 Peak Velocity(Antegrade Flow): 1.06 m/s Peak Gradient(Antegrade Flow): 4.47 mm[Hg] Tricuspid Valve Pulmonic Valve Peak Gradient: 6.27 mm[Hg], 5.08 mm[Hg] Right Atrium Right Atrium Systolic Pressure: 28.62 ml, 28.62 ml Dictated by: Gregg Reyes M.D. on 03/10/2025 at 18:23 Approved by: Gregg Reyes M.D. on 03/10/2025 at 18:26
== END 2025-03-10 15:58 | disposition home or self-care (01) ==
LOC: CARD 15:57
PROVIDERS: PCP Family Medicine; Visit Provider Family Medicine
DX: I51.7 Cardiomegaly (principal)
CPT/HCPCS: 93306